=== PATIENT | female | born 1940 | race Caucasian/White ===

== ENCOUNTER 2017-04-15 08:12 | Inpatient (IN) | payer MEDICARE, OTHER, SELFPAY ==
[2017-04-15] VITALS (14 sets, daily range): BP systolic 130–166; BP diastolic 58–84; PULSE 66–84; RESP 12–18; TEMP 36.8–37; O2SAT 96–99; BMI 20.9; BMI 20.3; BMI 21.0
--- NOTE | 2017-04-15 08:24 | EKG12_ITS ---
Test Reason : CP Blood Pressure : / mmHG Vent. Rate : 081 BPM Atrial Rate : 081 BPM P-R Int : 182 ms QRS Dur : 084 ms QT Int : 376 ms P-R-T Axes : 080 083 074 degrees QTc Int : 436 ms Normal sinus rhythm Normal ECG Confirmed by JAN BOGGS, BETHANY ([id number]), acquisitions editor TANYA VALDERRAMA ([id number] on 04/17/2017 10:14:50 AM Referred By: CELESTINE Confirmed By:BETHANY MONTOYA MD
--- NOTE | 2017-04-15 08:24 | RAD_ITS ---
STUDY: X-RAY CHEST REASON FOR EXAM: Female, 76 years old. Chest pain. Shortness of breath. TECHNIQUE: PA and lateral views of the chest. COMPARISON: None. FINDINGS: There are monitoring devices. There is hyperinflation of the lungs consistent with chronic obstructive lung disease (COPD).s there are fibrotic densities. There is no demonstrated pleural abnormality. Normal size heart. There is retrocardiac hiatal hernia. Normal visualized pulmonary arteries. There is atherosclerotic calcification of the aortic arch with tortuosity. There is demineralization of the osseous structures. Normal visualized ribs, clavicles, and shoulders. There is no demonstrated abnormality of the visualized soft tissue structures of the upper abdomen. RAD/Chest PA and Lateral IMPRESSION: COPD and fibrotic densities. Hiatal hernia. Electronically Signed: Dean Ellison MD at 9:43 EST , Service support ,
--- NOTE | 2017-04-15 08:27 | ED.VISSUMM ---
- ER Visit Summary Date of Service: 04/15/17 Chief Complaint: Chest pain History of Present Illness: The patient is a 76 F presenting with exertional chest pain for the past 2 weeks. She states that when she walks across the room, goes up steps, or otherwise exerts herself, she develops midsternal chest heaviness that radiates into her back and occasionally to her left shoulder. She also develops left shoulder/arm pain (never distal to her elbow) as well as shortness of breath and diaphoresis. The pain resolves after approximately 10 minutes of rest. She states that she had a stress test in 2002 and in 2011 which were unremarkable. She had a heart cath around 30 years ago but otherwise denies any cardiac history. She takes medicine for high cholesterol but was recently taken off of her blood pressure meds because of labile pressures. He denies recent travel or mobilization. Denies lower extremity pain or swelling. There is no pleuritic component to this pain. She has never been a smoker. Physical Examination: Vitals are within normal limits except for hypertension at 166/81. She is not in distress. Neck is supple. Heart tones are regular without murmur. Lungs are clear bilaterally. No chest wall or arm tenderness. Strong pulses in all extremities. No lower extremity edema, palpable cords, or tenderness along the venous system. Test Results: Labs are basically within normal limits. Troponin is negative. EKG unremarkable Emergency Department Course and Treatment: Workup here is unremarkable however her symptoms are very concerning. She has midsternal chest pain and left shoulder pain only with exertion that is associated with diaphoresis and dyspnea, resolving with rest. Given her overall risk profile, I feel that she should be observed for with repeat enzymes and stress test. Treatment Plan: I spoke with the hospitalist and she will be admitted. Disposition: Admit to telemetry Impression: Initial encounter chest pain, rule out MA This note was generated with VeriTweet dictation software. It may contain incorrect words, spelling, and punctuation that were not noted in review of the chart prior to signing ED Disposition - Plan for ED Patient: Chief Complaint: Chest Pain Referrals: Errol Shahid MD [Primary Care Provider] -
--- NOTE | 2017-04-15 08:30 | ED.DCSUM_ITS ---
- ER Visit Summary Date of Service: 04/15/17 Chief Complaint: Chest pain History of Present Illness: The patient is a 76 F presenting with exertional chest pain for the past 2 weeks. She states that when she walks across the room , goes up steps, or otherwise exerts herself, she develops midsternal chest heaviness that radiates into her back and occasionally to her left shoulder. She also develops left shoulder/arm pain (never distal to her elbow) as well as shortness of breath and diaphoresis. The pain resolves after approximately 10 minutes of rest. She states that she had a stress test in 2002 and in 2011 which were unremarkable. She had a heart cath around 30 years ago but otherwise denies any cardiac history. She takes medicine for high cholesterol but was recently taken off of her blood pressure meds because of labile pressures. He denies recent travel or mobilization. Denies lower extremity pain or swelling. There is no pleuritic component to this pain. She has never been a smoker. Physical Examination: Vitals are within normal limits except for hypertension at 166/81. She is not in distress. Neck is supple. Heart tones are regular without murmur. Lungs are clear bilaterally. No chest wall or arm tenderness. Strong pulses in all extremities. No lower extremity edema, palpable cords, or tenderness along the venous system. Test Results: Labs are basically within normal limits. Troponin is negative. EKG unremarkable Emergency Department Course and Treatment: Workup here is unremarkable however her symptoms are very concerning. She has midsternal chest pain and left shoulder pain only with exertion that is associated with diaphoresis and dyspnea , resolving with rest. Given her overall risk profile, I feel that she should be observed for with repeat enzymes and stress test. Treatment Plan: I spoke with the hospitalist and she will be admitted. Disposition: Admit to telemetry Impression: Initial encounter chest pain, rule out LA This note was generated with Flexis dictation software. It may contain incorrect words, spelling, and punctuation that were not noted in review of the chart prior to signing ED Disposition - Plan for ED Patient: Chief Complaint: Chest Pain Referrals: Errol Shahid MD [Primary Care Provider] -
[2017-04-15] MEDS: Aspirin 81 MG TAB.CHEW 324 MG PO (08:51)
[2017-04-15 08:59] LABS: Absolute Lymphocyte Count 1.97 X10^3/ul (0.83-4.51); Absolute Neutrophil Count 5.3 X10^3/uL (2.0-7.7); Basophil# 0.04 X10^3/uL; Basophil% 0.5 % (0-1); Eosinophil# 0.23 X10^3/uL; Eosinophils% 2.8 % (0-5); Hematocrit 40.3 % (37-47); Hemoglobin 13.3 g/dl (12.0-15.0); Lymphocyte # 1.97 X10^3/ul (4.0); Lymphocyte % 23.8 % (19-41); Mean Corpuscular Hgb 31.9 pg (27.0-32.0); Mean Corpuscular Volume 96.6 fL (81-99); Mean Platelet Vol. 9.9 fl (6.2-12.0); Monocyte# 0.74 X10^3/uL; Monocyte% 8.9 % (0-10); Neutrophil # 5.31 X10^3/uL (2.7-7.7); POSITIVE COUNT NO; POSITIVE DIFFERENTIAL NO; POSITIVE MORPHOLOGY NO; Platelet Count 269 K/mm3 (150-450); RBC Distribution Width CV 12.5 % (11.6-14.6); RBC Distribution Width SD 42.5 fl (35.1-43.9); Red Blood Count 4.17 M/mm3 (4.2-5.4); White Blood Count 8.3 K/mm3 (4.4-11.0)
[2017-04-15 09:19] LABS: Anion Gap 7 (5-15); BUN 22 mg/dL (7-18); BUN/Creat Ratio 24.6 RATIO (10-20); Calcium,Total 9.4 mg/dL (8.5-10.1); Chloride 106 mmol/L (98-107); Creatinine, Serum 0.89 mg/dL (0.55-1.02); EST Glomerular Filtration Rate 65 mL/min (>60); Est Glom Filt Rate - Afr Amer 79 mL/min (>60); Estimated Creatinine Clearance 41.32 ml/min; Glucose 99 mg/dL (74-106); Potassium 3.8 mmol/L (3.5-5.1); Sodium Level 142 mmol/L (136-145)
--- NOTE | 2017-04-15 09:37 | NURSING ---
DR MEAGHAN SPRAGUE
--- NOTE | 2017-04-15 09:52 | NURSING ---
PCU OBS SEMENTI
--- NOTE | 2017-04-15 09:54 | NURSING ---
DIAGNOSIS: ACUTE CORONARY SYNDROME
[2017-04-15 11:22] LABS: D-Dimer Quantitative (DVT/PE) 0.33 FEU/ug/m (0.27-0.49)
[2017-04-15 12:18] LABS: AST(SGOT) 30 U/L (15-37); Alanine Aminotransfer ALT/SGPT 31 U/L (13-56); Albumin, Serum 3.7 g/dL (3.2-5.0); Alkaline Phosphatase 72 U/L (45-117); Bilirubin, Direct 0.15 mg/dL (0.00-0.30); Globulin 3.6 g/dL (2.2-4.2); Magnesium 2.2 mg/dL (1.6-2.6); Protein, Total 7.3 g/dL (6.4-8.2)
--- NOTE | 2017-04-15 12:38 | PCM.HP.STD ---
Problem List (1) Acute coronary syndrome Status: Acute (2) HTN (hypertension) Status: Chronic Comment: labile and not currently being treated. (3) Anxiety Status: Chronic (4) Gastroesophageal reflux disease Status: Chronic (5) Osteoporosis Status: Chronic (6) History of IBS Status: Acute (7) Family history of coronary artery disease in father Status: Acute (8) Hyperlipidemia Status: Chronic Comment: on a statin History of Present Illness Date of Admission: 04/15/17 Chief Complaint: chest pain associated with R[place]D The patient is a 76 year old F with a past medical history of hypertension, hyperlipidemia, GERD, hiatal hernia, osteoporosis and anxiety who presented to the emergency room at [facility] on 04/15/2017 complaining of substernal chest tightness associated with shortness of breath. For the past few weeks she has been getting substernal chest tightness and squeezing that comes on with exertion and goes away with rest. For the past 2-3 days the pain has gotten more frequent and comes on with minimal exertion. He was standing in the kitchen today cooking and got substernal chest discomfort. There has been radiation of the pain to the left arm. The pain is associated with [place]. Denies diaphoresis and no nausea. Originally she thought the pain may be due to GERD and she started taking Protonix daily and this did not change the substernal chest pain. Her father had [place] in his 40's. She has never smoked. EKG in the emergency room is normal but she had no chest pain at the time of the EKG. Chest x-ray shows hyperinflation with no infiltrates, pleural effusions or pulmonary vascular congestion. Troponin was less than 0.02 in the emergency room. The BUN is 22 and the creatinine is 0.89 with a BUN/creatinine ratio of 24.6. She uses Estradiol cream no more than once every week or two. The d-dimer is 0.33 and this is normal. She is being admitted to a monitored bed on PCU with a diagnosis of acute coronary syndrome. Past Medical History Past Medical History (Chronic Problems): Chronic Problems Gastroesophageal reflux disease (Chronic) Osteoporosis (Chronic) HTN (hypertension) (Chronic) labile and not currently being treated. 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, - - she uses Estradiol cream infrequently Lives: Spouse/ Significant Other Smoking Status: Never smoker Tobacco Use: Non-smoker Alcohol: None Drugs: None - *Family History Maternal History Items: Diabetes Paternal History Items: Heart Disease - father started with heart disease in his 40's, Stroke Review of Systems Constitutional: Denies: Chills, Fever, Weight Change Eyes: Denies: Blurred vision, Vision Change HEENT: Denies: Difficulty Swallowing, Head Aches, Sinus Congestion, Sinus Drainage, Sore Throat Cardiovascular: Reports: Chest Pain, - - when she gets substernal CP tightness with exertion she also gets weak and has SOB with raditation of the pain down the left arm. Denies: Orthopnea, Palpitations, Paroxysmal Noc. Dyspnea, Syncope Respiratory: Reports: Shortness of breath upon exertion. Denies: Cough Gastrointestinal: Denies: Abdominal Pain, Nausea, Vomiting Genitourinary: Denies: Dysuria Gynecological: Denies: Vaginal bleeding, Vaginal discharge Skin: Denies: Jaundice, Rash, Wounds Neurological: Denies: Change in Speech, Slurred speech, Confusion, Focal weakness Endocrine: Denies: Change in Body Habitus, Hx of Thyroiditis Hematologic/ Lymphatic: Denies: Hx of blood clot VTE Information - Inpt Only VTE Present on Admission: No VTE Mechan Device Prophylaxis: Knee High ROBEL Hose VTE Pharm Prophylaxis ordered?: Yes Patient Problems: Active and Suspected Problems Acute coronary syndrome (Acute) History of IBS (Acute) Family history of coronary artery disease in father (Acute) - Physical Exam General: Alert, Oriented x3, Cooperative, - - she is anxious adn wooried that she may be having a problem with her heart. she has been sleeping well and denies any recent stressful events in her life HEENT: Atraumatic, PERRLA, EOMI, Normocephalic Oral: Dry Mucosa Neck: No JVD, Negative Carotid Bruits, No Nodes, Trachea Midline, - - Brisk carotid upstroke with excellent pulse volume Lungs: Clear to auscultation, No rhonchi, No wheeze, No rales Cardiovascular: Regular rate, Regular Rhythm, Normal S1, Normal S2, No murmurs, No Ectopic Activity, No Gallop Abdomen: Bowel Sounds Present, Soft, Non Tender, Non-Distended, - - No masses appreciated. No abdominal bruits. Extremities: No clubbing, No cyanosis, No edema, Capillary Refill Less than 3 Seconds, No Calf Tenderness, Peripheral Pulses Normal Skin: No rashes, No breakdown Musculoskeletal: No Muscle Wasting, Arthritic Changes Neurological: Cranial nerves II-XII grossly intact, Neuro grossly intact Psych/Mental Status: Anxious Vital Signs Temp Pulse Resp BP Pulse Ox 98.3 F 66 16 135/63 H 98 04/15/17 11:25 04/15/17 11:25 04/15/17 11:25 04/15/17 11:25 04/15/17 11:25 Oxygen Delivery Method Room Air Weight: 100 lb 12.02 oz Body Mass Index (BMI) 20.3 Laboratory Tests Past 24 Hrs 04/15/17 04/15/17 11:06 11:06 D-Dimer Quant (PE/DVT) 0.33 Magnesium 2.2 Total Bilirubin 0.70 Direct Bilirubin 0.15 AST 30 ALT 31 Alkaline Phosphatase 72 Total Protein 7.3 Albumin 3.7 Globulin 3.6 Assessment/Plan Active and Suspected Problems Acute coronary syndrome (Acute) History of IBS (Acute) Family history of coronary artery disease in father (Acute) Impressions 1. acute coronary S. 2. HTN 3. HLD 4. HH with GERD...CP 5. anxiety 6. Osteoporosis - T score of the left femur in January 2017 was -2.4, left femoral neck -2.5, right femoral neck -2.4, right femoral neck -2.5 in the lumbar spine is -2.0. She is currently taking calcium and vitamin D. Would recommend regular weightbearing exercise in this patient. Her FRAX score is 0% for hip fx within the next 10 years. She is borderline osteoporotic. The T score for BL femoral necks is -2.5 which is consistent with osteoporosis but the spin is -2.0. would consider starting her on tx and if not would repeat the DEXA in [address] Davis - will keep NPO tonight for cardiac catheterization in the a.m. She has already been given a loading dose of Plavix and will start 75 mg p.o. daily in addition to aspirin 81 mg p.o. daily. She was given aspirin in the emergency room. Start metoprolol 25 mg p.o. twice daily and continue the statin. Nitroglycerin as needed chest pain Check a lipid panel in the a.m. Code Visit Inpatient E&M: 84071 Init Hosp L3
[2017-04-15] MEDS: Clopidogrel Bisulfate 300 MG Tablet PO (13:02)
[2017-04-15] MEDS: Pantoprazole Sodium 40 MG Tablet PO (13:02)
[2017-04-15] MEDS: Enoxaparin 40 MG/0.4 ML Syringe SC (13:02)
--- NOTE | 2017-04-15 13:02 | NURSING ---
1000 Medications administered at this time. Medications ordered when patient was still in ED. Plavix order clarified. Education complete for plavix and lovenox.
[2017-04-15] MEDS: Metoprolol Tartrate 25 MG Tablet PO ×2 (13:40→21:07)
[2017-04-15] MEDS: 0.45% Normal Saline 1,000 ML 100 ML IV ×2 (13:40→22:30)
--- NOTE | 2017-04-15 14:55 | PCM.CONS.C ---
Reason for Consult Date of Consultation: 04/15/17 Reason for Consultation: Chest discomfort History of Present Illness: The patient is a 76 year old F with a past medical history of hypertension, hyperlipidemia, GERD, hiatal hernia, osteoporosis and anxiety who presented to the emergency room at [facility] on 04/15/2017 complaining of substernal chest tightness associated with shortness of breath. For the past few weeks she has been getting substernal chest tightness and squeezing that comes on with exertion and goes away with rest. For the past 2-3 days the pain has gotten more frequent and comes on with minimal exertion. She was standing in the kitchen today cooking and got substernal chest discomfort. There has been radiation of the pain to the left arm. The pain is associated with RICHMOND. Denies diaphoresis and no nausea. Originally she thought the pain may be due to GERD and she started taking Protonix daily and this did not change the substernal chest pain. She thinks that she had a cardiac catheterization over 30 years ago and at that time he did not demonstrate any obstructive coronary disease. Her father had [place] in his 40's. He was seen in the emergency room and currently is pain-free. Her electrocardiogram did not demonstrate any EKG changes of ischemia but due to her history cardiology was called for further evaluation and management. Past Medical History Allergies/Adverse Reactions: Allergies No Known Allergies Allergy (Verified 04/15/17 08:15) Home Medications: Ambulatory Orders Medication Instructions Recorded Estradiol [Estrace Vaginal Cream] 42.5 gm TOPICAL PRN PRN 06/14/14 Simvastatin 40 mg PO QHS 06/14/14 Pantoprazole Sodium [Protonix] 40 mg PO DAILY #30 tablet 06/16/14 Calcium Carbonate/Vitamin D3 1 each PO DAILY 04/15/17 [Calcium 600 + Vit D3 Caplet] Multivitamin [Multiple Vitamins] 1 tablet PO DAILY 04/15/17 Past Medical History (Chronic Problems): Chronic Problems Gastroesophageal reflux disease (Chronic) Osteoporosis (Chronic) HTN (hypertension) (Chronic) labile and not currently being treated. 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 Denies: Shortness of Breath, Orthopnea, PND, Peripheral Edema, Palpitations, Lightheadedness, Dizziness, Near Syncope, Syncope Respiratory: Denies: Cough, Sputum Production, Hemoptysis Gastrointestinal: Denies: Hematemesis, Hematochezia, Melena Genitourinary: Denies: Dysuria, Hematuria Skin: Denies: Rash Subjectve: Pleasant lady in no apparent distress Objective: Vital Signs Temp Pulse Resp BP Pulse Ox 98.3 F 70 16 135/63 H 98 04/15/17 11:25 04/15/17 13:40 04/15/17 11:25 04/15/17 11:25 04/15/17 11:25 General: Awake, Alert, Oriented x 3 HEENT: PERRL, EOMI, Sclera Non Icteric Neck: Supple, Good ROM, No Lymph Node Enlargement Lungs: Clear to auscultation Cardiovascular: Regular Rhythm, Normal S1, Normal S2, No Murmurs, No Rubs, No Gallops Vascular: No Carotid Bruits, Normal Femoral Pulses, Normal Radial Pulses, Normal Dorsalis Pedal Pulse, Normal Posterior Tibial Pulses Abdomen: Bowel Sounds Present, Soft, Non Tender, No HSM, No Organomegaly Extremities: No Cyanosis, No Clubbing, No edema Neurological: No Focal Motor or Sensory Deficit Psych/Mental Status: Appropriate Rhythm: EKG: Normal sinus rhythm with no acute changes with a rate of 81 bpm. Assessment/Plan 1. Chest pain unstable angina Patient presents with progressive and recurrent chest discomfort with exertion going away with rest which has been getting worse. At this time even though she has no EKG changes and no troponin elevation her symptoms appear to be rather convincing that I would suggest direct cardiac catheterization. I do not think that a stress test is warranted at this time I have discussed this with the patient and the hospitalist and they agree to proceed. She will be started in the meantime on clopidogrel as well as a beta-natanael and aspirin and depending on the findings further recommendations will be made. 2. Hyperlipidemia She is on a decent dose of statin and a repeat lipid profile will be obtained. Thank you for allowing me to participate in the care of your patient. Please don't hesitate to call if any issues arise
--- NOTE | 2017-04-15 14:59 | CON.PCM_ITS ---
Reason for Consult Date of Consultation: 04/15/17 Reason for Consultation: Chest discomfort History of Present Illness: The patient is a 76 year old F with a past medical history of hypertension, hyperlipidemia, GERD, hiatal hernia, osteoporosis and anxiety who presented to the emergency room at [facility] on 04/15/2017 complaining of substernal chest tightness associated with shortness of breath. For the past few weeks she has been getting substernal chest tightness and squeezing that comes on with exertion and goes away with rest. For the past 2-3 days the pain has gotten more frequent and comes on with minimal exertion. She was standing in the kitchen today cooking and got substernal chest discomfort. There has been radiation of the pain to the left arm. The pain is associated with RICHMOND. Denies diaphoresis and no nausea. Originally she thought the pain may be due to GERD and she started taking Protonix daily and this did not change the substernal chest pain. She thinks that she had a cardiac catheterization over 30 years ago and at that time he did not demonstrate any obstructive coronary disease. Her father had [place] in his 40's. He was seen in the emergency room and currently is pain-free. Her electrocardiogram did not demonstrate any EKG changes of ischemia but due to her history cardiology was called for further evaluation and management. Past Medical History Allergies/Adverse Reactions: Allergies No Known Allergies Allergy (Verified 04/15/17 08:15) Home Medications: Ambulatory Orders Medication Instructions Recorded Estradiol [Estrace Vaginal Cream] 42.5 gm TOPICAL PRN PRN 06/14/14 Simvastatin 40 mg PO QHS 06/14/14 Pantoprazole Sodium [Protonix] 40 mg PO DAILY #30 tablet 06/16/14 Calcium Carbonate/Vitamin D3 1 each PO DAILY 04/15/17 [Calcium 600 + Vit D3 Caplet] Multivitamin [Multiple Vitamins] 1 tablet PO DAILY 04/15/17 Past Medical History (Chronic Problems): Chronic Problems Gastroesophageal reflux disease (Chronic) Osteoporosis (Chronic) HTN (hypertension) (Chronic) labile and not currently being treated. 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 Denies: Shortness of Breath , Orthopnea, PND, Peripheral Edema, Palpitations, Lightheadedness, Dizziness, Near Syncope, Syncope Respiratory: Denies: Cough, Sputum Production, Hemoptysis Gastrointestinal: Denies: Hematemesis, Hematochezia, Melena Genitourinary: Denies: Dysuria, Hematuria Skin: Denies: Rash Subjectve: Pleasant lady in no apparent distress Objective: Vital Signs Temp Pulse Resp BP Pulse Ox 98.3 F 70 16 135/63 H 98 04/15/17 11:25 04/15/17 13:40 04/15/17 11:25 04/15/17 11:25 04/15/17 11:25 General: Awake, Alert, Oriented x 3 HEENT: PERRL, EOMI, Sclera Non Icteric Neck: Supple, Good ROM, No Lymph Node Enlargement Lungs: Clear to auscultation Cardiovascular: Regular Rhythm, Normal S1, Normal S2, No Murmurs, No Rubs, No Gallops Vascular: No Carotid Bruits, Normal Femoral Pulses, Normal Radial Pulses, Normal Dorsalis Pedal Pulse, Normal Posterior Tibial Pulses Abdomen: Bowel Sounds Present, Soft, Non Tender, No HSM, No Organomegaly Extremities: No Cyanosis, No Clubbing, No edema Neurological: No Focal Motor or Sensory Deficit Psych/Mental Status: Appropriate Rhythm: EKG: Normal sinus rhythm with no acute changes with a rate of 81 bpm. Assessment/Plan 1. Chest pain unstable angina Patient presents with progressive and recurrent chest discomfort with exertion going away with rest which has been getting worse. At this time even though she has no EKG changes and no troponin elevation her symptoms appear to be rather convincing that I would suggest direct cardiac catheterization. I do not think that a stress test is warranted at this time I have discussed this with the patient and the hospitalist and they agree to proceed. She will be started in the meantime on clopidogrel as well as a beta-natanael and aspirin and depending on the findings further recommendations will be made. 2. Hyperlipidemia She is on a decent dose of statin and a repeat lipid profile will be obtained. Thank you for allowing me to participate in the care of your patient. Please don't hesitate to call if any issues arise
[2017-04-15 15:37] LABS: Bacteria 0 SEEN /hpf (None Seen); Mucous, Urine 0 SEEN /hpf (<or=2+); Squamous Epithelial Cells - UA 0 SEEN /hpf (5-10); White Blood Cells 0 SEEN /hpf (0-5)
[2017-04-15 15:39] LABS: Color, Urine Straw (Yellow); Glucose, Dipstick Normal (Normal); Ketone-Dipstick Negative (Negative); Leukocyte Esterase-Dipstick Negative /ul (Negative); Nitrite-Dipstick Negative (Negative); Occult Blood-Urine 25 /ul (Negative); Protein-Dipstick Negative (Negative); Urine Bilirubin Dipstick Negative (Negative); Urine Clarity Clear (Clear); Urine Urobilinogen Normal (Normal)
[2017-04-15 15:47] LABS: Red Blood Cells-Urine 0-5 SEEN /hpf (0-5)
[2017-04-15] MEDS: Atorvastatin Calcium 20 MG Tablet PO (21:03)
[2017-04-16] VITALS (23 sets, daily range): BP systolic 101–154; BP diastolic 52–66; PULSE 61–78; RESP 16–18; TEMP 36.4–36.9; O2SAT 97–100
[2017-04-16] MEDS: Aspirin E.C. 81 MG Tablet PO (05:27)
[2017-04-16] MEDS: Clopidogrel Bisulfate 75 MG Tablet PO (05:27)
[2017-04-16] MEDS: Metoprolol Tartrate 25 MG Tablet PO (05:29)
[2017-04-16 05:39] LABS: Hematocrit 36.9 % (37-47); Hemoglobin 12.1 g/dl (12.0-15.0); Mean Corp Hgb Conc 32.8 g/gl (32-36); Mean Corpuscular Hgb 31.7 pg (27.0-32.0); Mean Corpuscular Volume 96.6 fL (81-99); Mean Platelet Vol. 10.1 fl (6.2-12.0); Platelet Count 244 K/mm3 (150-450); RBC Distribution Width CV 12.4 % (11.6-14.6); RBC Distribution Width SD 42.2 fl (35.1-43.9); Red Blood Count 3.82 M/mm3 (4.2-5.4); White Blood Count 6.4 K/mm3 (4.4-11.0)
[2017-04-16 05:49] LABS: Prothrombin Time (Protime)PT. 12.8 SECONDS (11.7-14.9)
[2017-04-16 05:50] LABS: Partial Thromboplast Time 27.9 Seconds (24.1-36.2)
--- NOTE | 2017-04-16 05:55 | EKG12_ITS ---
Test Reason : AM EKG Blood Pressure : / mmHG Vent. Rate : 069 BPM Atrial Rate : 069 BPM P-R Int : 206 ms QRS Dur : 082 ms QT Int : 414 ms P-R-T Axes : 076 079 086 degrees QTc Int : 443 ms Normal sinus rhythm Confirmed by JAN BOGGS, BETHANY ([id number]), graphic editor TANYA VALDERRAMA ([id number]) on 04/18/2017 3:00:44 PM Referred By: MEAGHAN Confirmed By:BETHANY MONTOYA MD
--- NOTE | 2017-04-16 05:55 | ECHOD_ITS ---
Reason For Study: chest pain Procedure This was a 2D Doppler, Color Flow transthoracic echocardiogram. The study was technically difficult. PT scanned supine: S/P heart cath unable to reposition patient. Exam performed portable in patient room. Left Ventricle Normal LV size. Left ventricular systolic function is normal. The estimated ejection fraction is 60 %. No regional wall motion abnormalities noted. Right Ventricle Normal RV size. Normal systolic function. Atria Normal left atrium. Normal right atrium. Mitral Valve Normal mitral valve. Tricuspid Valve Normal tricuspid valve. Mild tricuspid valve insufficiency. Aortic Valve Normal aortic valve. Trisinus/trileaflet aortic valve. Pulmonic Valve Normal pulmonic valve. Great Vessels Normal aortic root. The pulmonary artery is normal size. Normal inferior vena cava. Pericardium/Pleural No pericardial effusion. MMode/2D Measurements & Calculations LVIDd: 3.6 cm IVSd: 0.95 cm Ao root diam: 2.5 cm LVIDs: 2.6 cm LVPWd: 1.0 cm LA dimension: 2.8 cm RVDd: 2.6 cm FS: 29.4 % Doppler Measurements & Calculations MV E max bon: 66.2 cm/sec Lat Peak E' Bon: 7.9 cm/sec Med Peak E' Bon: 4.8 cm/sec MV A max bon: 59.7 cm/sec E/E' lat: 8.4 E/E' med: 13.9 MV E/A: 1.1 Ao V2 max: 81.3 cm/sec LV V1 max: 69.8 cm/sec PA V2 max: 71.7 cm/sec Ao max P.6 mmHg LV V1 max P.9 mmHg PI dec slope: 195.7 cm/sec2 TR max bon: 214.3 cm/sec TR max P.4 mmHg Interpretation Summary Normal LV size. Left ventricular systolic function is normal. The estimated ejection fraction is 60 %. Mild tricuspid valve insufficiency. Ordering Physician: Nyasia Cortez Referring Physician: Tripp Shahid Performed By: Yvonne Wilson RDCS, RVT
[2017-04-16 05:56] LABS: Cholesterol 181 mg/dL (200); High Density Lipoprotein 65 mg/dL; Triglycerides 72 mg/dL; Very Low Density Lipoprotein 14 mg/dL (5-40)
[2017-04-16 06:00] LABS: Anion Gap 7 (5-15); BUN 20 mg/dL (7-18); BUN/Creat Ratio 23.8 RATIO (10-20); Calcium,Total 8.5 mg/dL (8.5-10.1); Chloride 107 mmol/L (98-107); Creatinine, Serum 0.84 mg/dL (0.55-1.02); EST Glomerular Filtration Rate 70 mL/min (>60); Est Glom Filt Rate - Afr Amer 85 mL/min (>60); Estimated Creatinine Clearance 42.39 ml/min; Glucose 93 mg/dL (74-106); Sodium Level 141 mmol/L (136-145)
[2017-04-16 06:07] LABS: Scan Indicated on CBC? Y/N NO
[2017-04-16] MEDS: 0.45% Normal Saline 1,000 ML 100 ML IV (07:44)
--- NOTE | 2017-04-16 09:29 | PCM.PN.CARD ---
Subjectve: Seen and evaluated and underwent cardiac catheterization today Objective: Vital Signs Temp Pulse Resp BP Pulse Ox 98.1 F 67 18 150/57 H 100 04/16/17 08:17 04/16/17 08:17 04/16/17 08:17 04/16/17 08:17 04/16/17 08:17 Oxygen Delivery Method Room Air Weight: 100 lb 12.02 oz Intake and Output for Last 24 Hours 04/14/17 04/15/17 04/16/17 23:59 23:59 23:59 Intake Total 1308 / 1548 693 / 693 Output Total 1350 / 1350 650 / 650 Balance -42 / 198 43 / 43 General: Awake, Alert, Oriented x 3 HEENT: PERRL, EOMI, Sclera Non Icteric Neck: Supple, Good ROM, No Lymph Node Enlargement Lungs: Clear to auscultation Cardiovascular: Regular Rhythm, Normal S1, Normal S2, No Murmurs, No Rubs, No Gallops Vascular: No Carotid Bruits, Normal Femoral Pulses, Normal Radial Pulses, Normal Dorsalis Pedal Pulse, Normal Posterior Tibial Pulses Abdomen: Bowel Sounds Present, Soft, Non Tender, No HSM, No Organomegaly Extremities: No Cyanosis, No Clubbing, No edema Neurological: No Focal Motor or Sensory Deficit Psych/Mental Status: Appropriate 04/15/17 15:28: Urine Color Straw, Urine Clarity Clear, Urine pH 7.0, Ur Specific [place] 1.010, Urine Protein Negative, Urine Glucose (UA) Normal, Urine Ketones Negative, Urine Occult Blood 25 H, Urine Nitrite Negative, Urine Bilirubin Negative, Urine Urobilinogen Normal, Ur Leukocyte Esterase Negative, Urine RBC 0-5 SEEN, Urine WBC 0 SEEN 04/15/17 17:10: Troponin I < 0.02 04/15/17 22:30: Troponin I < 0.02 04/16/17 05:05: Triglycerides 72, Cholesterol 181, LDL Cholesterol 102, VLDL Cholesterol 14, HDL Cholesterol 65 04/16/17 05:05: PT 12.8, INR 1.0, APTT 27.9 04/16/17 05:05: WBC 6.4, RBC 3.82 L, Hgb 12.1, Hct 36.9 L, MCV 96.6, MCH 31.7, MCHC 32.8, RDW 12.4, RDW Differential 42.2, Plt Count 244, MPV 10.1 04/16/17 05:05: Sodium 141, Potassium 4.0, Chloride 107, Carbon Dioxide 27.0, Anion Gap 7, BUN 20 H, Creatinine 0.84, Est GFR (MDRD) Af Amer 85, Est GFR (MDRD) Non-Af 70, BUN/Creatinine Ratio 23.8 H, Glucose 93, Calcium 8.5 Assessment/Plan 1. Chest pain unstable angina Patient presents with progressive and recurrent chest discomfort with exertion going away with rest which has been getting worse. He underwent a cardiac catheterization today which demonstrated the following. 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 2. Hyperlipidemia She is on a decent dose of statin and a repeat lipid profile will be obtained. Thank you for allowing me to participate in the care of your patient. Please don't hesitate to call if any issues arise She can be discharged home today
--- NOTE | 2017-04-16 09:32 | PN.CARD_ITS ---
Subjectve: Seen and evaluated and underwent cardiac catheterization today Objective: Vital Signs Temp Pulse Resp BP Pulse Ox 98.1 F 67 18 150/57 H 100 04/16/17 08:17 04/16/17 08:17 04/16/17 08:17 04/16/17 08:17 04/16/17 08:17 Oxygen Delivery Method Room Air Weight: 100 lb 12.02 oz Intake and Output for Last 24 Hours 04/14/17 04/15/17 04/16/17 23:59 23:59 23:59 Intake Total 1308 / 1548 693 / 693 Output Total 1350 / 1350 650 / 650 Balance -42 / 198 43 / 43 General: Awake, Alert, Oriented x 3 HEENT: PERRL, EOMI, Sclera Non Icteric Neck: Supple, Good ROM, No Lymph Node Enlargement Lungs: Clear to auscultation Cardiovascular: Regular Rhythm, Normal S1, Normal S2, No Murmurs, No Rubs, No Gallops Vascular: No Carotid Bruits, Normal Femoral Pulses, Normal Radial Pulses, Normal Dorsalis Pedal Pulse, Normal Posterior Tibial Pulses Abdomen: Bowel Sounds Present, Soft, Non Tender, No HSM, No Organomegaly Extremities: No Cyanosis, No Clubbing, No edema Neurological: No Focal Motor or Sensory Deficit Psych/Mental Status: Appropriate 04/15/17 15:28: Urine Color Straw, Urine Clarity Clear, Urine pH 7.0, Ur Specific [place] 1.010, Urine Protein Negative, Urine Glucose (UA) Normal, Urine Ketones Negative, Urine Occult Blood 25 H, Urine Nitrite Negative, Urine Bilirubin Negative, Urine Urobilinogen Normal, Ur Leukocyte Esterase Negative, Urine RBC 0-5 SEEN, Urine WBC 0 SEEN 04/15/17 17:10: Troponin I < 0.02 04/15/17 22:30: Troponin I < 0.02 04/16/17 05:05: Triglycerides 72, Cholesterol 181, LDL Cholesterol 102, VLDL Cholesterol 14, HDL Cholesterol 65 04/16/17 05:05: PT 12.8, INR 1.0, APTT 27.9 04/16/17 05:05: WBC 6.4, RBC 3.82 L, Hgb 12.1, Hct 36.9 L, MCV 96.6, MCH 31.7, MCHC 32.8, RDW 12.4, RDW Differential 42.2, Plt Count 244, MPV 10.1 04/16/17 05:05: Sodium 141, Potassium 4.0, Chloride 107, Carbon Dioxide 27.0, Anion Gap 7, BUN 20 H, Creatinine 0.84, Est GFR (MDRD) Af Amer 85, Est GFR (MDRD ) Non-Af 70, BUN/Creatinine Ratio 23.8 H, Glucose 93, Calcium 8.5 Assessment/Plan 1. Chest pain unstable angina Patient presents with progressive and recurrent chest discomfort with exertion going away with rest which has been getting worse. He underwent a cardiac catheterization today which demonstrated the following. 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 2. Hyperlipidemia She is on a decent dose of statin and a repeat lipid profile will be obtained. Thank you for allowing me to participate in the care of your patient. Please don't hesitate to call if any issues arise She can be discharged home today
--- NOTE | 2017-04-16 10:34 | CASEMGMT ---
This RN CM to bedside to complete CM assessment and pt is currently getting ECHO at this time. Will attempt again later. SStaten RN CM
[2017-04-16] MEDS: Ramipril 5 MG Capsule PO (11:06)
[2017-04-16] MEDS: Pantoprazole Sodium 40 MG Tablet PO (11:06)
--- NOTE | 2017-04-16 12:11 | DS.PCM_ITS ---
Discharge Date and Diagnosis - Problem List Patient Problems: Active and Suspected Problems Acute coronary syndrome (Acute) History of IBS (Acute) Family history of coronary artery disease in father (Acute) Date of Admission: 04/15/17 Date of Discharge: 04/16/17 - Primary Discharge Diagnosis Active and Suspected Problems Acute coronary syndrome (Acute) History of IBS (Acute) Family history of coronary artery disease in father (Acute) - Secondary Discharge Diagnosis Chronic Problems Gastroesophageal reflux disease (Chronic) Osteoporosis (Chronic) HTN (hypertension) (Chronic) labile and not currently being treated. Anxiety (Chronic) Hyperlipidemia (Chronic) on a statin Hospital Course and Treatment Summary of Care Provided: This is a 76 year old F with a past medical history of coronary artery disease , hypertension, hyperlipidemia, GERD, hiatal hernia, osteoporosis and anxiety who presented to the emergency room at [facility] on 04/15/2017 complaining of substernal chest tightness associated with shortness of breath. Her electrocardiogram did not demonstrate any EKG changes, was normal cardiology was called for further evaluation and management heart catheterization was recommended. Underwent left heart catheterization today and he demonstrated; Mild calcification of the left main coronary artery Left anterior descending artery with proximal 30% stenosis in the septal residential worker with 60% ostial stenosis Left circumflex artery with a proximal 20-30% obtuse marginal vessel Small dominant right coronary artery with no high-grade stenosis Preserved ejection fraction. Chest pain did resolve by the time of discharge, discharged home in a stable condition. Exam at the time of discharge; vital signs were stable. He was alert and oriented to time place and person. He did not appear to be any form of distress. S1 and S2 heard no murmur or gallop Lung exam was clear to auscultation with no adventitious sounds. Abdomen was soft nontender with normal bowel sounds. extremity exam did not reveal any edema, palpable pulses bilaterally. Neurologic exam was grossly intact. Discharge Diet: Low fat/ Low Cholesterol Discharge Activity: Return to Normal Activity Home Medications: Medications to take at Discharge Estradiol [Estrace Vaginal Cream] 42.5 gm TOPICAL PRN PRN 06/14/14 Simvastatin 40 mg PO QHS 06/14/14 Pantoprazole Sodium [Protonix] 40 mg PO DAILY #30 tablet 06/16/14 Calcium Carbonate/Vitamin D3 [Calcium 600-Vit D3 800 Caplet] 1 each PO DAILY 06/27 Multivitamin [Multiple Vitamins] 1 tablet PO DAILY 04/15/17 Ramipril [Altace] 5 mg PO DAILY #30 cap 04/16/17 Following Prescrptions Were Given to Patient: Ramipril [Altace] 5 mg PO DAILY #30 cap Primary Care Physician: Errol Shahid MD [Primary Care Provider] - Disposition: Home Patient Condition:: Good Meaningful Use Info Meaningful Use Diagnoses (Choose all that apply): None applicable Code Visit OBSV E&M: 69113 Observation care discharge
--- NOTE | 2017-04-16 13:01 | CASEMGMT ---
Face to Face with patient for initial transition planning/care coordination assessment. RN KRISTA introduced self and role at [facility], pt voices understanding and consents to assessment at this time. Pt sitting up in bed in no distress at this time. Pt A/O x4 at this time and answers all questions appropriately at this time. Care providers, pharmacy, and demographics verified. See attached link. Pt voices no further concerns/needs at this time. Advised pt to ask for CM if any further questions/concerns/needs arise, voices understanding. Referral to Joce FIORE for advanced directive paperwork to be completed at this time, voices understanding. PLAN: Home SStaten VASYL VELASCO
--- NOTE | 2017-04-16 13:49 | CASEMGMT ---
SW completed healthcare power of family law attorney and healthcare living will with patient. Copies were made, one of each placed in chart and other copies with original given to patient. Jacqui COPELAND MSW
--- NOTE | 2017-04-16 16:33 | PCM.DC ---
- Discharge Diagnoses Current Active Problems: Current Active and Chronic Problems Acute coronary syndrome (Acute) HTN (hypertension) (Chronic) labile and not currently being treated. Anxiety (Chronic) History of IBS (Acute) Family history of coronary artery disease in father (Acute) Hyperlipidemia (Chronic) on a statin You will use the following diet at home:: Cardiac Discharge Activity: Return to Normal Activity Allergies/Adverse Reactions: Allergies No Known Allergies Allergy (Verified 04/15/17 08:15) Medications to take at Discharge RX: Estradiol [Estrace Vaginal Cream] 42.5 gm TOPICAL PRN PRN 06/14/14 RX: Simvastatin 40 mg PO QHS 06/14/14 RX: Pantoprazole Sodium [Protonix] 40 mg PO DAILY #30 tablet 06/16/14 RX: Calcium Carbonate/Vitamin D3 [Calcium 600-Vit D3 800 Caplet] 1 each PO DAILY 04/15/17 RX: Multivitamin [Multiple Vitamins] 1 tablet PO DAILY 04/15/17 Ramipril [Altace] 5 mg PO DAILY #30 cap 04/16/17 The following prescriptions were given: Ramipril [Altace] 5 mg PO DAILY #30 cap Primary Care Physician: Errol Shahid MD [Primary Care Provider] - Proposed Discharge Date: 04/16/17
--- NOTE | 2017-04-18 10:46 | CL.D_ITS ---
Patient Name: ALTA MAYA Study Date: 04/16/2017 Performing: Mauro Davis MD Ht: 59.05 inches 150 cm : 1940 Wt: 101.41 lbs 46 kg Age: 76 Gender: female BSA: 1.38 PROCEDURE(S) PERFORMED MI84-RAL/COR/LV CLINICAL PROFILE AND INDICATIONS INDICATIONS: 76-year-old lady with a history of chest pain Stress/Imaging Stress/Image Study Performed: No CAD Presentations: Unstable angina. CONCLUSIONS Mild coronary artery disease RECOMMENDATIONS Medical therapy DESCRIPTION OF PROCEDURE The patient arrived to the procedure lab. The risks and benefits of the procedure as well as a full d escription of our services here and current unavailability of surgical backup were fully explained to the patient and/or their significant other prior to the catheterization. The Timeout was completed, verifying the correct patient and procedure. The patient's procedural site was prepped and draped in the usual fashion. Local anesthetic was given subcutaneously to right groin region with Lidocaine 2%. Using a modified Seldinger technique, arterial access was obtained via the right femoral artery, a 5 Fr sheath was inserted. Left Coronary Artery selective angiography was performed in multiple views u sing a 5 Fr. JL 5 catheter. Right Coronary Artery selective angiography was then performed in multipl e views using a 5 Fr. 3DRC (David) catheter. Left Ventriculography was performed in LYNCH projection using a 5 Fr. Pigtail catheter. LV to AO pullback pressures were then recorded.The arterial sheath w as pulled and manual compression applied until hemostasis is achieved. CORONARY ANGIOGRAPHY DOMINANCE: Right Dominant LEFT HEART ASSESSMENT Left Ventricular Ejection Fraction: by LV Gram 65 % Normal LV wall motion Normal Left Ventricular systolic function LEFT MAIN: Mild calcification, Angiographically normal LEFT ANTERIOR DECENDING ARTERY: PROX LAD: Mild luminal irregularities less than 30%, Mild calcification SEPTAL: Moderate luminal irregularities up to 50% CIRCUMFLEX ARTERY: Mild luminal irregularities OM 1: Ostial - 20 % Stenosis RIGHT CORONARY ARTERY: Mild luminal irregularities COMPLICATIONS No Complications PROCEDURE MEDICATIONS Versed 1 mg IV Fentanyl 25 mcg IV Oxygen: 2 L/min via nasal cannula SUMMARY OF HEMODYNAMIC DATA Time AIR REST ECG 08:53:38 AO 167/70 (111) SA 09:09:34 LV 156/9, 14 09:18:53 LV 157/18, 19 09:19:01 LV 167/-6, 17 09:19:49 LVp 169/-9, 17 09:19:53 AO 168/66 (111) 09:19:58 Signed By Mauro Davis MD On 04/16/2017 9:37:11 AM Mauro Davis MD
== END 2017-04-16 17:03 | disposition home or self-care (01) | DRG 287 ==
LOC: ED 10:03 → PCU 10:29
PROVIDERS: Internal Medicine; Admitting Provider Internal Medicine; Emergency Provider Emergency Medicine; Family Provider Family Medicine; PCP Family Medicine; Visit Provider Internal Medicine
DX: I24.9 Acute ischemic heart disease, unspecified (principal); E78.5 Hyperlipidemia, unspecified; F41.9 Anxiety disorder, unspecified; K21.9 Gastro-esophageal reflux disease without esophagitis; M81.0 Age-related osteoporosis without current pathological fracture; K44.9 Diaphragmatic hernia without obstruction or gangrene; I10 Essential (primary) hypertension; Z82.49 Family history of ischemic heart disease and other diseases of the circulatory system; Z79.899 Other long term (current) drug therapy
CPT/HCPCS: 36415; 71046; 80048; 80061; 80076; 81001; 83735; 84484; 85025; 85027; 85379; 85610; 85730; 87086; 93005; 93306; 93458; 99152; 99153; 99284; A4216; C1769; Q9967

== ENCOUNTER → 2017-06-01 06:57 | Outpatient (CLI) | payer MEDICARE, OTHER, SELFPAY ==
--- NOTE | 2017-06-01 09:57 | STRESSREP_ITS ---
Stress Test Report Exercise myocardial perfusion stress test. 76-year-old lady with a history of chest pain. Stress protocol: Resting EKG demonstrates normal sinus rhythm with a rate of 69 bpm normal intervals and noted resting blood pressure is 130/88 mmHg. The patient exercised according to regular Franco protocol for total duration of 5 minutes the maximum heart rate attained was 130 bpm which was 89% maximum predicted heart rate maximum workload attained was 7 metabolic equivalents. The patient maintained sinus rhythm throughout the recording at rest there were no ST or T- wave changes noted suggest ischemia peak exercise no ST or T-wave changes were noted suggest ischemia. No clinical angina was noted. Mild chest discomfort was noted. Myocardial perfusion protocol. 10.9 mCi of technetium 99m sestamibi was injected at rest. The patient exercised for total duration of 5 minutes attaining 89% maximum predicted heart rate a workload of 7 metabolic equivalents. At peak exercise 32.6 mCi of technetium 99m sestamibi was injected stress images were obtained stress and rest images were reconstructed and compared in the short axis vertical and horizontal long axis. Gated images were also obtained next Perfusion SPECT analysis. Review of the stress images demonstrate normal uptake of tracer noted in all areas myocardium. The resting images similarly demonstrate normal uptake of tracer noted in all areas myocardium. No areas of reversibility are noted suggest ischemia no previous infarct is noted. Gated SPECT analysis. The gated ejection fraction is 83%. Conclusion: Exercise myocardial perfusion stress test with no evidence of ischemia at a moderate workload. Atypical Chest pain of questionable significance. Preserved ejection fraction.
== END ==
PROVIDERS: Family Provider Family Medicine; PCP Family Medicine; Visit Provider Internal Medicine Cardiovascular Disease
DX: I25.10 Atherosclerotic heart disease of native coronary artery without angina pectoris (principal); R07.9 Chest pain, unspecified
CPT/HCPCS: 78452; 93017; A9500; A4216

== ENCOUNTER → 2017-06-06 12:50 | Outpatient (CLI) | payer MEDICARE, OTHER, SELFPAY ==
--- NOTE | 2017-06-06 12:55 | RAD_ITS ---
STUDY: X-RAY - THORACIC SPINE REASON FOR EXAM: Female, 76 years old. back, chest pain TECHNIQUE: 2 view(s) of the thoracic spine were obtained. COMPARISON: None. FINDINGS: Normal kyphosis of the thoracic spine. There is no substantial scoliosis. There is multilevel endplate spondylosis of the thoracic vertebrae. There is multilevel disc space narrowing of the thoracic spine. The soft tissue structures are unremarkable. RAD/Thoracic Spine 2 Views IMPRESSION: There are degenerative changes as noted above. Electronically Signed: Jez Howard MD at 16:49 EDT , Service support ,
== END ==
PROVIDERS: Family Provider Family Medicine; PCP Family Medicine; Visit Provider Family Medicine
DX: M54.6 Pain in thoracic spine (principal)
CPT/HCPCS: 72070

== ENCOUNTER → 2017-06-15 13:12 | Outpatient (CLI) | payer MEDICARE, OTHER, SELFPAY ==
--- NOTE | 2017-06-15 13:53 | CT_ITS ---
STUDY: CT CHEST WITHOUT CONTRAST REASON FOR EXAM: Female, 77 years old. Dyspnea and chest pain. RADIATION DOSAGE (If Supplied By Facility): CTDIvol = ( 6.54 ) mGy, DLP = ( 215.85 ) mGycm TECHNIQUE: Transaxial imaging was performed without the administration of intravenous contrast material. Multiplanar coronal and sagittal images were reformatted. Individualized dose optimization techniques were used for this CT. COMPARISON: Chest radiograph dated April 15, 2017. FINDINGS: There is hyperinflation of the lungs consistent with chronic obstructive lung disease (COPD). There is a left lower lobe pulmonary nodule best seen on axial image #93 measuring approximately 5.9 mm in size. There is minimal bilateral basilar dependent atelectasis. There is a lucency in the right lower lobe that may represent a small pneumatocele. There is a right lower lobe pulmonary nodule on axial image #68 measuring approximately 3.4 mm in size. There is pleural fibrotic thickening of the pulmonary lung apices. Normal heart and pericardium. There are calcifications of the coronary arteries. There are multiple small lymph nodes within the mediastinum, which are normal in size and morphology most compatible with reactive lymph hyperplasia. Normal hilar regions. There is prominence of the pulmonary hilar arteries without peripheral pulmonary vascular congestion. There is atherosclerotic calcification of the aortic arch with tortuosity and elongation of the aortic arch and descending thoracic aorta. Maximum transverse dimension of ascending thoracic aorta measures approximately 3.2 cm. There is increased thoracic kyphosis. The bones appear mildly osteopenic. There is multilevel thoracic spondylosis. There is a moderately large hiatal hernia. The visualized pancreas appears atrophic. There is a small right-sided renal cyst measuring up to 1.8 cm in greatest dimension. CT/Chest without Contrast IMPRESSION: 1. COPD. 2. Tiny bilateral pulmonary nodules as described. Suggest follow-up as per Fleischner's criteria. 3. Sequela of coronary artery vascular disease. 4. Hiatal hernia. Electronically Signed: Anabel Grayson MD at 10:30 EDT , Service support ,
== END ==
PROVIDERS: Family Provider Family Medicine; PCP Family Medicine; Visit Provider Family Medicine
DX: R06.00 Dyspnea, unspecified (principal)
CPT/HCPCS: 71250

== ENCOUNTER → 2017-06-22 14:04 | Outpatient (CLI) | payer MEDICARE, OTHER, SELFPAY | PROVIDERS: Family Provider Family Medicine; PCP Family Medicine; Visit Provider Family Medicine | DX: R30.0 Dysuria (principal) | CPT/HCPCS: 87086 ==

== ENCOUNTER → 2017-08-09 11:43 | Outpatient (CLI) | payer MEDICARE, OTHER, SELFPAY ==
--- NOTE | 2017-08-09 09:00 | LES_PTH ---
PATIENT: ALTA MAYA LOC: [facility] U#:[id number] AGE/SX: 84/F ROOM: RE08/09/[address]: Dr. Tripp Shahid MD : 1940 BED: DIS: SPEC #: [id number] RECD: 08/09/17 10:59 STATUS: KEMI CAMPBELLKaylan #: [id number] MARYA: 08/09/17 09:[address]: Tripp Shahid DEPT: SURGICAL PATHOLOGY RECD BY: Kang Rock Tissues: Skin of leg, NOS Procedures: Special Stain Group I Surgery Specimen Level IV GMS Stain (control) HEADER OPERATION: Left leg punch biopsy PRE-OP DIAGNOSIS: Rash for two months TISSUE SUBMITTED: ? fungal vs nummular eczema MICROSCOPIC DIAGNOSIS Left leg rash, punch biopsy: Interface dermatitis. Negative for fungal organisms. See comment. 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 Occasional plasma cells and rare eosinophils are present. There is mild hyperkeratosis. GMS stain with matched control was used in the evaluation of this case. MICROSCOPIC DESCRIPTION Slides are reviewed. GROSS DESCRIPTION Received in fixative is one container labeled with the patient's name and designated left calf biopsy. The specimen consists of a punch biopsy of panda-white skin measuring 0.4 cm in diameter and 0.4 cm in length. The specimen is totally submitted in one cassette. / SJ:juan 08/09/17 TC:5 CPT: 24375, 19336
== END ==
PROVIDERS: Family Provider Family Medicine; PCP Family Medicine; Visit Provider Family Medicine
DX: L30.8 Other specified dermatitis (principal)
CPT/HCPCS: 88305; 88312

== ENCOUNTER → 2017-11-30 07:49 | Outpatient (CLI) | payer MEDICARE, OTHER, SELFPAY ==
--- NOTE | 2017-11-30 07:50 | US_ITS ---
STUDY: ABDOMINAL ULTRASOUND - RIGHT UPPER QUADRANT REASON FOR VISIT: Female, 77 years old. Chest pain TECHNIQUE: Ultrasound evaluation of the right upper quadrant was performed with real-time and static cruz-scale imaging. TECHNICAL QUALITY: Adequate. COMPARISON: None. FINDINGS: Liver: The liver measures 13.1 cm. There is normal echogenicity of the liver. The bile ducts are within normal limits. There is hepatic color flow. The direction of portal flow is hepatopetal. There is no demonstrated mass lesion. Gallbladder: Normal distended gallbladder. The gallbladder wall measures 2.4 mm. There is a negative sonographic Pollard's sign. There is no pericholecystic fluid. There are gallstones. Common Bile Duct (C.B.D.): The common bile duct measures 2.6 mm. Pancreas: Normal size of the head, body and tail of the pancreas. There is increased echogenicity of the pancreas. There is no demonstrated pancreatic mass or cyst. Right Kidney: Normal size of the right kidney. The right kidney measures 9.5 x 3.9 x 4.9 cm. Normal renal cortex. The right cortex measures 1.8 cm. There are 2 cysts measuring 1.0 to 1.6 cm. There is no right hydronephrosis. US/Gallbladder IMPRESSION: Cholelithiasis. Right renal cysts. Electronically Signed: Ministerio Alas DO at 23:54 EDT Tel [phone], Service support ,
[2017-11-30 10:02] LABS: Vitamin D,25 Hydroxy 47.1 ng/mL (29.95-100.01)
[2017-11-30 10:06] LABS: Anion Gap 10 (5-15); BUN 26 mg/dL (7-18); BUN/Creat Ratio 28.6 RATIO (10-20); Calcium,Total 9.5 mg/dL (8.5-10.1); Chloride 106 mmol/L (98-107); Cholesterol 203 mg/dL (200); Creatinine, Serum 0.91 mg/dL (0.55-1.02); EST Glomerular Filtration Rate 64 mL/min (>60); Est Glom Filt Rate - Afr Amer 78 mL/min (>60); Glucose 99 mg/dL (74-106); High Density Lipoprotein 58 mg/dL; Potassium 3.8 mmol/L (3.5-5.1); Sodium Level 143 mmol/L (136-145); Triglycerides 136 mg/dL; Very Low Density Lipoprotein 27 mg/dL (5-40)
== END ==
PROVIDERS: Family Provider Family Medicine; PCP Family Medicine; Visit Provider Internal Medicine Cardiovascular Disease
DX: R07.9 Chest pain, unspecified (principal); I10 Essential (primary) hypertension; M81.0 Age-related osteoporosis without current pathological fracture
CPT/HCPCS: 36415; 76705; 80048; 80061; 82306; 84443

== ENCOUNTER → 2017-12-05 14:23 | Outpatient (CLI) | payer MEDICARE, OTHER, SELFPAY | PROVIDERS: Family Provider Family Medicine; PCP Family Medicine; Referring Provider Family Medicine; Visit Provider Family Medicine | DX: R35.0 Frequency of micturition (principal) | CPT/HCPCS: 87086; 87088 ==

== ENCOUNTER → 2017-12-17 10:57 | Outpatient (CLI) | payer MEDICARE, OTHER, SELFPAY ==
[2017-12-17 12:11] LABS: Hemoglobin 12.1 g/dl (12.0-15.0); Mean Corp Hgb Conc 32.7 g/gl (32-36); Mean Corpuscular Hgb 31.3 pg (27.0-32.0); Mean Corpuscular Volume 95.6 fL (81-99); Mean Platelet Vol. 10.7 fl (6.2-12.0); Platelet Count 258 K/mm3 (150-450); RBC Distribution Width CV 13.2 % (11.6-14.6); RBC Distribution Width SD 44.5 fl (35.1-43.9); Red Blood Count 3.87 M/mm3 (4.2-5.4)
[2017-12-17 12:12] LABS: Scan Indicated on CBC? Y/N NO
[2017-12-17 12:32] LABS: Iron 89 ug/dL (50-170)
[2017-12-17 12:53] LABS: Vitamin B12 592 pg/mL (211-911)
[2017-12-19 07:38] LABS: Zinc, Plasma or Serum 104 ug/dL (56-134)
== END ==
PROVIDERS: Family Provider Family Medicine; PCP Family Medicine; Visit Provider Family Medicine
DX: L60.8 Other nail disorders (principal)
CPT/HCPCS: 36415; 82607; 83540; 84630; 85027

== ENCOUNTER → 2018-09-11 | Outpatient (CLI) | payer MEDICARE, OTHER, SELFPAY ==
[2018-08-18 10:53] VITALS: BMI 20.3
[2018-09-11 10:26] LABS: Vitamin D,25 Hydroxy 45.6 ng/mL (29.95-100.01)
[2018-09-11 10:28] LABS: Anion Gap 8 (5-15); BUN 22 mg/dL (7-18); BUN/Creat Ratio 23.4 RATIO (10-20); Calcium,Total 9.2 mg/dL (8.5-10.1); Chloride 108 mmol/L (98-107); Cholesterol 195 mg/dL (200); Creatinine, Serum 0.94 mg/dL (0.55-1.02); EST Glomerular Filtration Rate 62 mL/min (>60); Est Glom Filt Rate - Afr Amer 75 mL/min (>60); Glucose 98 mg/dL (74-106); High Density Lipoprotein 61 mg/dL; Sodium Level 143 mmol/L (136-145); Thyroid Stim Hormone (TSH) 1.36 uIU/mL (0.358-3.74); Triglycerides 109 mg/dL; Very Low Density Lipoprotein 22 mg/dL (5-40)
== END | disposition home or self-care (01) ==
LOC: MFPLAB 08:45
PROVIDERS: Family Provider Family Medicine; PCP Family Medicine; Referring Provider Family Medicine; Visit Provider Family Medicine
DX: I10 Essential (primary) hypertension (principal); M81.0 Age-related osteoporosis without current pathological fracture
CPT/HCPCS: 36415; 80048; 80061; 82306; 84443

== ENCOUNTER → 2018-12-24 | Outpatient (CLI) | payer MEDICARE, OTHER, SELFPAY ==
[2018-08-18 10:53] VITALS: BMI 20.3
--- NOTE | 2018-12-24 10:50 | RAD_ITS ---
STUDY: X-RAY CHEST REASON FOR EXAM: Female, 78 years old. Persistent symptoms of respiratory tract infection after 2 separate antibiotic treatments. TECHNIQUE: Frontal and lateral views of the chest. COMPARISON: April 15, 2017 FINDINGS: Stable hyperexpansion with a mild diffuse interstitial pattern. No focal consolidations. There is no demonstrated pleural abnormality. Stable mild cardiomegaly. Normal mediastinum and meño. Normal visualized pulmonary arteries. Aortic tortuosity with calcification unchanged. Thoracic osteopenia with spondylosis and slight increased kyphosis. Normal visualized ribs, clavicles, and shoulders. There is no demonstrated abnormality of the visualized soft tissue structures of the upper abdomen. RAD/Chest PA and Lateral IMPRESSION: Stable chest with no acute finding. Electronically Signed: Usama Shi MD at 16:56 EDT , Service support ,
== END | disposition home or self-care (01) ==
LOC: MTRAD 10:47
PROVIDERS: Family Provider Family Medicine; PCP Family Medicine; Referring Provider Family Medicine; Visit Provider Family Medicine
DX: J98.8 Other specified respiratory disorders (principal)
CPT/HCPCS: 71046

== ENCOUNTER → 2019-07-09 | Outpatient (CLI) | payer MEDICARE, OTHER, SELFPAY ==
[2018-08-18 10:53] VITALS: BMI 20.3
== END | disposition home or self-care (01) ==
PROVIDERS: PCP Family Medicine; Visit Provider Family Medicine
DX: R10.2 Pelvic and perineal pain (principal)
CPT/HCPCS: 87086

== ENCOUNTER → 2019-07-21 | Outpatient (CLI) | payer MEDICARE, OTHER, SELFPAY ==
[2018-08-18 10:53] VITALS: BMI 20.3
[2019-07-21 14:53] LABS: Absolute Lymphocyte Count 2.67 X10^3/uL (0.83-4.51); Absolute Neutrophil Count 6.8 X10^3/uL (2.0-7.7); Basophil# 0.06 X10^3/uL; Basophil% 0.6 % (0-1); Eosinophil# 0.49 X10^3/uL; Eosinophils% 4.5 % (0-5); Hematocrit 39.2 % (37-47); Hemoglobin 12.6 g/dL (12.0-15.0); Lymphocyte # 2.67 X10^3/ul (4.0); Lymphocyte % 24.7 % (19-41); Mean Corp Hgb Conc 32.1 g/dL (32-36); Mean Corpuscular Hgb 30.4 pg (27.0-32.0); Mean Corpuscular Volume 94.7 fL (81-99); Mean Platelet Vol. 10.4 fl (6.2-12.0); Monocyte% 7.4 % (0-10); NRBC Flagged by Analyzer 0 % (0-5); Neutrophil # 6.78 X10^3/uL (2.7-7.7); Neutrophil % 62.6 % (47-70); Platelet Count 272 K/mm3 (150-450); RBC Distribution Width SD 44.9 fl (35.1-43.9); Red Blood Count 4.14 M/mm3 (4.2-5.4); White Blood Count 10.8 K/mm3 (4.4-11.0)
[2019-07-21 15:16] LABS: ALB/GLOB Ratio 0.9 RATIO (0.9-2.4); AST(SGOT) 20 U/L (15-37); Alanine Aminotransfer ALT/SGPT 22 U/L (13-56); Albumin, Serum 3.8 g/dL (3.2-5.0); Alkaline Phosphatase 86 U/L (45-117); Anion Gap 6 (5-15); BUN 20 mg/dL (7-18); BUN/Creat Ratio 21.6 RATIO (10-20); Calcium,Total 10.4 mg/dL (8.5-10.1); Chloride 107 mmol/L (98-107); Creatinine, Serum 0.93 mg/dL (0.55-1.02); EST Glomerular Filtration Rate 62 mL/min (>60); Est Glom Filt Rate - Afr Amer 76 mL/min (>60); Globulin 4.1 g/dL (2.2-4.2); Glucose 85 mg/dL (74-106); Potassium 3.9 mmol/L (3.5-5.1); Protein, Total 7.9 g/dL (6.4-8.2); Sodium Level 141 mmol/L (136-145); Thyroid Stim Hormone (TSH) 1.02 uIU/mL (0.358-3.74)
== END | disposition home or self-care (01) ==
LOC: MTLAB 12:49
PROVIDERS: PCP Family Medicine; Referring Provider Nurse Practitioner Adult Health; Visit Provider Nurse Practitioner Adult Health
DX: R63.4 Abnormal weight loss (principal)
CPT/HCPCS: 36415; 80053; 84443; 85025

== ENCOUNTER → 2019-07-29 07:20 | Outpatient (CLI) | payer MEDICARE, OTHER, SELFPAY ==
[2018-08-18 10:53] VITALS: BMI 20.3
--- NOTE | 2019-07-29 07:24 | CT_ITS ---
STUDY: CT ABDOMEN AND PELVIS WITH AND WITHOUT CONTRAST REASON FOR EXAM: Female, 79 years old. ABD PAIN, WEIGHT LOSS, URINARY FREQUENCY RADIATION DOSAGE (If Supplied By Facility): CTDIvol = ( 10.52 ) mGy, DLP = ( 1063.57 ) mGycm TECHNIQUE: Transaxial images were obtained from the dome of the diaphragm to the symphysis pubis with oral contrast. Oral and IV Readi-CAT and 100mL Isovue-300 was administered. Sagittal and coronal images were reconstructed. Individualized dose optimization techniques were used for this CT. COMPARISON: None. FINDINGS: There is a 5 mm left lower lobe nodule image 10 series 3. The heart size is within normal limits. There is no pericardial effusion. Normal liver. There are multiple gallstones. Normal spleen. Normal pancreas. Normal bilateral adrenal glands. There are several right renal cysts measuring up to 2.0 cm. There is a small focus of cortical scarring of the left kidney. There is a large hiatal hernia. Normal small intestine. Normal colon. The appendix is visualized and appears normal. There are calcified plaques of the abdominal aorta and common iliac arteries. Normal inferior vena cava. Normal retroperitoneum. Normal urinary bladder. The uterus and adnexal structures are unremarkable. Normal abdominal wall. There is severe narrowing of the L4-[address]/CT Abd/Pelvis W/WO Contrast IMPRESSION: 1. 5 mm left lower lobe nodule image 10 series 3. Appropriate follow-up using Fleischner Society criteria is recommended. 2. Cholelithiasis. 3. Right renal cysts measuring up to 2.0 cm. 4. Large hiatal hernia. 5. There is no evidence of free intra-abdominal or intrapelvic air, fluid, or inflammatory process. Electronically Signed: Jack Espinosa MD at 16:56 EDT , Service support ,
== END ==
PROVIDERS: PCP Family Medicine; Referring Provider Urology; Visit Provider Urology
DX: R10.9 Unspecified abdominal pain (principal); R63.4 Abnormal weight loss; R31.9 Hematuria, unspecified; R39.15 Urgency of urination
CPT/HCPCS: 74178; Q9967

== ENCOUNTER → 2019-09-25 | Outpatient (CLI) | payer MEDICARE, OTHER, SELFPAY ==
[2018-08-18 10:53] VITALS: BMI 20.3
--- NOTE | 2019-09-25 10:16 | BI_ITS ---
MAMMOGRAPHY - BILATERAL SCREENING REASON FOR EXAM: Female, 79 years old. Routine annual screening examination. PERTINENT HISTORY: Non-contributory. Remote left breast biopsy. TECHNIQUE: Digital bilateral breast shashank (3D mammographic acquisition) in the CC and MLO projections. 2-D mediolateral oblique (MLO) and craniocaudad (CC) views of both breasts were obtained. CAD: Full Field Digital Mammography with Computer Added Detection was performed. COMPARISON: Comparison is made with prior study dated January 11, 2017. FINDINGS: Breast Composition: The breasts are heterogeneously dense, which may obscure small masses. There are no dominant masses or suspicious calcifications. No other significant abnormalities are identified. There has been no significant change since the prior study. BI/SCREEN MAMM (CAD) W/SHASHANK BILAT IMPRESSION: Stable bilateral screening mammogram. Yearly follow-up mammogram recommended. (A) ASSESSMENT CATEGORY: BIRADS Category 1: Negative. A letter regarding these results will be sent to the patient by the facility within 30 days. Approximately 10% of breast cancers are not detected by mammography. A normal mammogram should not delay biopsy of a clinically suspicious abnormality. [id number] Electronically Signed: Davian Fitch, at 11:16 EDT , Service support ,
--- NOTE | 2019-09-25 10:22 | BD_ITS ---
STUDY: DUAL ENERGY X-RAY ABSORPTIOMETRY / DXA REASON FOR EXAM: Female, 79 years old. 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 COMPARISON: Comparison is made with prior examination dated January 11, 2017. FINDINGS: Lumbar Spine (L1-L4): g/cm2 (0.931) / T-score (-2.0) / Z-score (-0.2) Findings are suggestive of osteopenia with a moderate fracture risk. Left Femur Total: g/cm2 (0.687) / T-score (-2.5) / Z-score (-0.7) Left Femoral Neck: g/cm2 (0.689) / T-score (-2.5) / Z-score (-0.5) Right Femur Total: g/cm2 (0.675) / T-score (-2.6) / Z-score (-0.8) Right Femoral Neck: g/cm2 (0.651) / T-score (-2.8) / Z-score (-0.8) The T-Scores on the most recent prior examination were: Lumbar Spine (L1-L4): There has been worsening of bone density since the previous examination. Left Femur Total: which represents a worsening of 2.4%. Right Femur Total: which represents a worsening of 3.6%. BD/Dexa Bone Density Study IMPRESSION: The patient is considered osteoporotic as outlined below according to World [place] Organization (WHO) criteria with a high fracture risk. There has been worsening of bone density since the previous examination. Reference Information: The T-score is the number of standard deviations above or below the standard which is normal for young adults at their peak bone mineral density. The World Health Organization (WHO) interprets the T-scores as follows: Above -1 Normal bone density Between -1 and -2.5 Osteopenia Equal to / or below -2.5 Osteoporosis As a practical clinical guideline, osteopenia may be graded as follows: Mild -1 through -1.5 Moderate -1.6 through -2.0 Severe -2.1 through -2.4 The Z-score is the number of standard deviations above or below age-matched controls. A Z-score of less than -1.5 would be considered abnormal. References: 1. NIH Osteoporosis and Related Bone Diseases http://www.osteo.org 2. International Society for Clinical Densitometry http://www.iscd.org 3. National Osteoporosis Foundation http://www.nof.org Electronically Signed: Davian Fitch, at 15:29 EDT , Service support ,
== END | disposition home or self-care (01) ==
LOC: OPBD 10:13
PROVIDERS: PCP Family Medicine; Referring Provider Family Medicine; Visit Provider Family Medicine
DX: M81.0 Age-related osteoporosis without current pathological fracture (principal); Z78.0 Asymptomatic menopausal state; Z12.31 Encounter for screening mammogram for malignant neoplasm of breast
CPT/HCPCS: 77063; 77067; 77080

== ENCOUNTER → 2020-01-01 | Outpatient (CLI) | payer MEDICARE, OTHER, SELFPAY ==
[2018-08-18 10:53] VITALS: BMI 20.3
[2020-01-01 12:22] LABS: Erythrocyte Sedimentation Rate 13 mm/hr (0-30)
[2020-01-01 12:24] LABS: Hematocrit 37.9 % (37-47); Mean Corp Hgb Conc 31.7 g/dL (32-36); Mean Corpuscular Hgb 30.6 pg (27.0-32.0); Mean Corpuscular Volume 96.7 fL (81-99); Mean Platelet Vol. 10.9 fl (6.2-12.0); Platelet Count 268 K/mm3 (150-450); RBC Distribution Width SD 46.5 fl (35.1-43.9); Red Blood Count 3.92 M/mm3 (4.2-5.4); White Blood Count 8.5 K/mm3 (4.4-11.0)
[2020-01-01 12:52] LABS: Vitamin B12 660 pg/mL (211-911); Vitamin D,25 Hydroxy 46.7 ng/mL
[2020-01-01 13:07] LABS: Anion Gap 6 (5-15); BUN 21 mg/dL (7-18); BUN/Creat Ratio 23.4 RATIO (10-20); Calcium,Total 9.5 mg/dL (8.5-10.1); Chloride 109 mmol/L (98-107); EST Glomerular Filtration Rate 65 mL/min (>60); Est Glom Filt Rate - Afr Amer 78 mL/min (>60); Glucose 85 mg/dL (74-106); Iron 95 ug/dL (50-170); Sodium Level 141 mmol/L (136-145)
[2020-01-05 10:28] LABS: Zinc, Plasma or Serum 95 ug/dL (56-134)
== END | disposition home or self-care (01) ==
LOC: MFPLAB 10:43
PROVIDERS: PCP Family Medicine; Referring Provider Family Medicine; Visit Provider Family Medicine
DX: L65.9 Nonscarring hair loss, unspecified (principal)
CPT/HCPCS: 36415; 80048; 82306; 82607; 83540; 84443; 84630; 85027; 85652

== ENCOUNTER → 2020-01-07 | Outpatient (CLI) | payer MEDICARE, OTHER, SELFPAY ==
[2018-08-18 10:53] VITALS: BMI 20.3
--- NOTE | 2020-01-07 12:30 | RAD_ITS ---
HISTORY: right knee pain, no known injury ADDITIONAL HISTORY: None provided. EXAMINATION/TECHNIQUE: XR Knee Complete 4 Views or More Right Number of images including paperwork: 4 COMPARISON: None FINDINGS: BONES: No acute fracture. JOINTS: No subluxation. SOFT TISSUES: No distinct foreign body. Anterior soft tissue swelling. RAD/Knee 4 or More Views IMPRESSION: No acute osseous abnormality. Anterior soft tissue swelling. at 0300 Reported and signed by: Chey Jeronimo MD Electronically Signed: Chey Jeronimo MD at 2:59 EDT Tel , Service support ,
== END | disposition home or self-care (01) ==
PROVIDERS: PCP Family Medicine; Referring Provider Family Medicine; Visit Provider Family Medicine
DX: M25.561 Pain in right knee (principal)
CPT/HCPCS: 73564

== ENCOUNTER → 2020-01-14 08:51 | Outpatient (CLI) | payer MEDICARE, OTHER, SELFPAY ==
[2018-08-18 10:53] VITALS: BMI 20.3
--- NOTE | 2020-01-14 08:55 | RAD_ITS ---
STUDY: X-RAY - PELVIS AND BILATERAL HIPS REASON FOR EXAM: Female, 79 years old. LOW BACK AND BILATERAL HIP PAIN X 1 WEEK. NO INJURY TECHNIQUE: AP view of the pelvis.? 2 views of the right hip, and 2 views of the left hip were obtained. COMPARISON: None. FINDINGS: There is a non-specific bowel gas pattern. Normal visualized soft tissue structures. Normal bilateral iliac wings, sacroiliac joints and visualized sacrum. Normal bilateral superior and inferior pubic rami. Normal pubic symphysis. Normal bilateral ischial tuberosities. Normal visualized right femoral head. Normal right acetabulum. Normal right hip joint. Normal visualized left femoral head. Normal left acetabulum. Normal left hip joint. RAD/Hips B/L min 2 views w/ Pelvis IMPRESSION: Normal x-ray examination of the pelvis and bilateral hips. Electronically Signed: Larry Marrufo MD at 20:03 EST , Service support ,
--- NOTE | 2020-01-14 08:55 | RAD_ITS ---
STUDY: X-RAY - LUMBAR SPINE REASON FOR EXAM: Female, 79 years old. LOW BACK AND BILATERAL HIP PAIN X 1 WEEK. NO INJURY TECHNIQUE: 5 view(s) of the lumbar spine were obtained. COMPARISON: None FINDINGS: Normal lumbar lordosis. There is no substantial scoliosis. There is a normal alignment of the vertebrae. Normal vertebral bodies and endplates. There is multi-level degenerative disc disease with multi-level disc space narrowing. Oblique images negative for pars defects. The soft tissue structures are unremarkable. RAD/L/S Spine Min 4 Views IMPRESSION: Degenerative disc disease L4-5 and L5-S1 in particular Electronically Signed: Larry Marrufo MD at 23:53 EST , Service support ,
== END ==
PROVIDERS: PCP Family Medicine; Referring Provider Family Medicine; Visit Provider Family Medicine
DX: M79.604 Pain in right leg (principal); M54.5 Low back pain
CPT/HCPCS: 72110; 73521

== ENCOUNTER 2020-02-05 07:57 | Emergency (ER) | payer MEDICARE, OTHER, SELFPAY ==
[2018-08-18 10:53] VITALS: BMI 20.3
[2020-02-05 07:58] VITALS: BP 179/81; PULSE 105; RESP 14; TEMP 36.2; O2SAT 100; BMI 20.2
--- NOTE | 2020-02-05 08:21 | ED.VIS.GI ---
History of Present Illness Chief Complaint: Constipation Narrative: Patient presenting for evaluation secondary to constipation. Patient reports that over the course of the last 2 weeks she has been dealing with difficulty with bowel movements. Patient tells me that she frequently takes Colace, that was not alleviating her symptoms and then she called her primary care yesterday and they recommended that she try MiraLAX. Patient states that that did not give her relief. She has been attempting to manually disimpact. She reports that she has a feeling that she needs to have a bowel movement but simply cannot get anything to pass. She denies any nausea or vomiting. She denies any fevers. She does report that she has some mild abdominal distention. She does report that she has some external hemorrhoids that are uncomfortable and occasionally bleed. Patient is not on any opiate medications. She denies history of abdominal surgeries. Review of systems otherwise negative. Past Medical History - Allergies and Home Meds Allergies/Adverse Reactions: Allergies ranolazine [From Ranexa] Adverse Reaction (Severe, Verified 02/05/20 07:58) low urine output, rash oseltamivir [From Tamiflu] Adverse Reaction (Verified 02/05/20 07:58) Unknown Primary Care Physician: Errol Shahid MD [Primary Care Provider] - Prior records reviewed: Yes Past Medical History: - - Coronary artery disease, hypertension, hyperlipidemia Surgical History: cataract, tonsillectomy, - - Sinus surgery ?2 Smoking Status: Never smoker Alcohol: None Drugs: None - Family History Maternal Family History: Family History (Last Reviewed 08/18/18 @ 10:25 by Beverly Kincaid) Father CAD (coronary artery disease) CVA (cerebral vascular accident) Hypertension Mother Hypertension Brother Hypertension Sister Diabetes Other Heart disease Family History: Reports: Diabetes Paternal Family History: Family History (Last Reviewed 08/18/18 @ 10:25 by Beverly Kincaid) Father CAD (coronary artery disease) CVA (cerebral vascular accident) Hypertension Mother Hypertension Brother Hypertension Sister Diabetes Other Heart disease Family History: Reports: Heart Disease - father started with heart disease in his 40's, Stroke Review of Systems All systems negative except as indicated General: Denies: Chills, Fever, Sweats Eyes: Denies: Visual changes - bilaterally, Diplopia ENT: Denies: Rhinorrhea, Sore throat Cardiovascular: Denies: Chest pain, Palpitations Respiratory: Denies: Dyspnea, Cough, Dyspnea on exertion Gastrointestinal: Reports: Abdominal pain, Constipation Genitourinary: Denies: Dysuria, Hematuria, Frequency Musculoskeletal: Denies: Back pain, Extremity Pain Skin: Denies: Rash, Wounds Neurological: Denies: Headache, Weakness, Numbness Physical Exam Vital Signs/Narrative: Vital Signs Temp Pulse Resp BP Pulse Ox 02/05/20 07:58 97.2 F L 105 H 14 179/81 H 100 Inital Vital Signs reviewed: Yes General: Well nourished, Well developed, - - Thin elderly female no acute distress Head: Normocephalic, Atraumatic Eyes: Perrl, EOMI ENT: Moist mucous membranes, No rhinorrhea Neck: Supple, Nontender Cardiovascular: Regular rate, Regular rhythm, No murmurs Respiratory: No distress, CTA bilaterally, Chest nontender Abdomen: Soft, Nontender, Nondistended, Normal bowel sounds Rectal: - - Rectal exam shows multiple nonthrombosed external hemorrhoids, no active bleeding. A digital rectal exam that was chaperoned shows a large stool burden within the rectum, no real evidence of impaction Back: Nontender, Normal Inspection Extremities: Nontender, No edema Skin: Normal color, No rash Neurological: Alert, Oriented x3, Cranial nerves II-XII grossly intact, Normal Strength, Normal Sensation Psychological: Normal affect, Normal Mood Diagnostic/Tx/Re-eval - Medical Decision Making Patient presented secondary to constipation. I did attempt manual disimpaction. Nursing was present, patient was placed in the left lateral decubitus position. Lubricated finger was utilized to break up stool within the patient's rectum, small amounts of stool were able to be expressed. Remainder the stool within the rectum is in small pieces and is soft. Patient was ordered a soapsuds enema as well as magnesium citrate. Repeat evaluation of the patient at 09 shows the patient to be having some relief with a bowel movement. Patient will be sent home with the magnesium citrate. She was recommended that following that she continue on a bowel regimen with Colace. Patient was discharged in stable condition. ED Disposition - Plan for ED Patient: Disposition: Home or Assisted Living Diagnosis: Constipation Instructions: ED Constipation Referrals: Errol Shahid MD [Primary Care Provider] - 1-2 Days if not improving
[2020-02-05] MEDS: Magnesium Citrate 300 ML PO (09:28)
== END 2020-02-05 09:29 | disposition home or self-care (01) ==
PROVIDERS: Emergency Provider Emergency Medicine; PCP Family Medicine
DX: K59.00 Constipation, unspecified (principal); E78.5 Hyperlipidemia, unspecified; I10 Essential (primary) hypertension; I25.10 Atherosclerotic heart disease of native coronary artery without angina pectoris
CPT/HCPCS: 99284

== ENCOUNTER 2020-02-13 10:30 | Outpatient (RCR) | payer MEDICARE, OTHER, SELFPAY ==
[2018-08-18 10:53] VITALS: BMI 20.3
--- NOTE | 2020-01-23 14:35 | HP.PTEVAL_ITS ---
Patient's Visit Information ALTA MAYA is a 79 year old F referred to Physical Therapy by Dr. Errol Burris MD with a diagnosis of BACK AND RIGHT LE PAIN.. Date of Evaluation: 01/23/20 Physical Therapist: Shonda Garcia PT, Cert MDT - Visit Plan Frequency: 2-3x /Week Duration: 4-6 Weeks Plan: CONSIDER RIGHT KNEE AND/OR LOW BACK US. MH OR CP NEEDED. GAIT AND BALANCE TRAINING, POSTURE CORRECTION/STRENGTHENING, INSTRUCTION IN APPROPRIATE BODY MECHANICS AND ACTIVITY MODIFICATIONS. DLS STARTING WITH A NEUTRAL SPINE PROGRESSING ROM TOLERATED. MIC LE ROM, STRETCHING AND STRENGTHENING. HEP INSTRUCTION. - Subjective Work/Leisure: RETIRED. Present symptoms: CONSTANT LOW BACK PAIN. RIGHT THIGH, KNEE AND CASTRO. PATIENT DENIES RIGHT LE NUMBNESS OR TINGLING. SHE ALSO DENIES RIGHT ANKLE, FOOT OR TOE SYMPTOMS. NO LLE PAIN. (CHRONIC RIGHT LE SWELLING X 40 YEARS). Present since: CHRONIC LBP. RIGHT KNEE PAIN STARTED ABOUT 3 WEEKS AGO. Pain Scale: WORST 5/10, LEAST1/10. Currently: 05/19. Commenced as a result of: PATIENT REPORTS HER RIGHT KNEE PAIN STARTED FOR NO APPARENT REASON. STATES IT HURT WHEN SHE GOT OUT OF BED BUT A FEW DAYS BEFORE SHE WAS CUTTING DOWN TREES AND SHE KNOWS SHE DID TOO MUCH WALKING. Symptoms at onset: RIGHT KNEE. Worse: STADNING, WALKING, GETTING OUT THE CAR, RISING FROM SITTING, TURNING OVER IN BED, TRYING TO LIE DOWN IN THE BED. CAN'T SLEEP IN THE BED. Better: SITTING. Disturbed sleep: YES. Previous history/Previous treatment: UNREMARKABLE OTHER THAN RIGHT LE SWELLING FROM ABOUT 40 YEARS AGO WHEN THEY SUSPECTED THROMBOPHLEBITIS. Treatment this episode: MALOXACAM NOW. TRIED MUSCLE RELAXER BUT DIDN'T HELP. Coughing/sneezing/straining: NEGATIVE. Gait: PATIENT REPORTS SHE WAS AMBULATING INDEP'LY WITHOUT AD PRIOR TO 3 WKS AGO WHEN KNEE PAIN STARTED. WALKER HAS BEEN ORDERED BY DR. BURRIS BUT SHE HAS NOT PURCHASED ONE YET BECAUSE SHE WANTS TO WAIT AND SEE IF SHE GETS BETTER WITH PT. SHE IS USING A CANE BECAUSE SHE IS AFRAID OF FALLING AND HAS OSTEOPOROSIS. SHE REPORTS IT GIVES HER SUPPORT BUT SHE DOESN'T REALLY THINK IT HELPS THE PAIN. PATIENT REPORTS THAT BEFORE HER RIGHT KNEE PAIN STARTED SHE WAS STARTING TO JAIME OFF TO ONE SIDE OR ANOTHER WALKING SO THE DOCTOR ORDERED A BALANCE TEST. SHE DID NOT HAVE THAT COMPLETED BEFORE THIS KNEE PAIN STARTED AND THERAPY WAS ORDERED FOR HER KNEE AND BACK PAIN. PATIENT REPORTS BEING UNABLE TO DO THE BALANCE TEST ORDERED ORIGINALLY DUE TO NEW ONSET KNEE PAIN. PATIENT WILL R/S HER BALANCE EXAM AFTER HER KNEE AND BACK PAIN ARE BETTER. Difficulty initiating urinatin: NO. Accidents: NO. Unexplained weight loss: NO. Imaging: RECENT LUMBAR X-RAY: Degenerative disc disease L4-5 and L5-S1 in particular. PMH: OSTEOPOROSIS, HTN, HIGH CHOLESTEROL - Objective Sitting/Standing Posture: POOR. VERY SLOUCHED. INCREASED KYPHOSIS. DECREASED LORDOSIS. NO RELEVENT LATERAL SHIFT. RIGHT ILIAC CREST SLIGHTLY HIGHER THAN LEFT. Lordosis: DECREASED. Lateral shift: NO. Relevant shift: N/A. Active Correction of posture: NE. Other Observations: INDEP GAIT INTO PT WITH STRAIGHT CANE THAT IS TOO HIGH FOR HER AND CAN NOT BE ADJUSTED LOWER. THIS PT INSTRUCTED IN APPROPRIATE FIT AND HE IS GOING TO TRY TO ADAPT IT. KILEY IS SLOW AND A BIT UNSTEADY BUT NO LOSS OF BALANCE NOTED. USING CANE IN WRONG UE. LIMPTING ON RIGHT LE. DECREASED RIGHT LE HEEL STRIKE, FOOT FLAT AND T OE OFF PHASES OF GAIT. Motor deficit: LLE GROSSLY 4-5/5 WITH MMT'ING. RIGHT LE: HIP 3-/5, KNEE EXT 3+/5, KNEE FLEX 3+/5, ANKLE 5/5. Sensory deficit: MIC LE LIGHT TOUCH SENSATION INTACT AND SYMMETRICAL. ROM deficit: RIGHT KNEE AROM IN SUPINE WITH A HEEL SLIDE = 0 DEG EXT TO 127 DEG FLEXION AND PAIN AT THE END OF THE AVAILABLE RANGE IN KNEE. LEFT KNEE ROM = 0 DEG EXT TO APPROX 140 DEG FLEXION AND PAINFREE WITH TESTING. Reflexes: NT. Dural Signs: POSSIBLE POSSITIVE RIGHT LE. Lumbar mvmt loss: flex - MOD. ext - CONCHA. R SG - CONCHA. L SG - CONCHA. Core strength: POOR. Palpation: NO ACUTE LUMBOSACRAL TENDERNESS BUT INFERIOR RIGHT KNEE SWELLING AND TENDERNESS BILATERALLY. PALPATION OF RIGHT PATELLAR AREA RADIATES PAIN LATERALLY. TREATMENT: NEUROMUSCULAR REEDUCATION - RETRAINING OF MVMT AND POSTURE FOR SITTING, LYING AND STANDING ACTIVITIES. GAIT TRAINING WITH STRAIGHT CANE ON LEVEL SURFACES AND UP AND DOWN STEPS. REINFORCEMENT NEEDED. - Goals Goal 1:: DECREASE C/O LOW BACK AND RIGHT LE PAIN Goal Time Frame: 4-6 Weeks Goal 2:: IMPROVE STANDING, WALKING, ADL, HOUSEWORK, SLEEP AND RECREATIONAL FUNCTION. Goal Time Frame: 4-6 Weeks Goal 3:: INSTRUCT IN PROPHYLAXIS Goal Time Frame: 4-6 Weeks - Anticipated Interventions Patient/Client Instruction: Educate patient on: Condition, Plan of Care, Risk Factors, Benefits of Fitness Program For the Purpose of:: To improve self management Therapeutic Exercise to Include: Strength training, Body mechanics, Postural training, Flexibilty training, Gait and locomotor training, Neuromotor development, Active ROM, Scapular Strength/Stabilization For the Purpose of:: To decrease pain, To increase ROM, To improve muscle performance and motor function, To increase tolerance to activity/condition/position, To improve ability of physical actions for home/community/work/leisure, To improve gait and locomotor functions Cryotherapy (ice pack, ice massage): Yes Thermo therapy (hot pack): Yes Ultrasound (thermal/non thermal): Yes For the Purpose of:: To decrease pain, To decrease swelling/inflammation, To improve nutrient delivery to tissue Thank you for the opportunity to evaluate your patient. For Medicare and Medicare HMO plans, please review the plan of care and approve it. It will need to be FAXED BACK to us at [phone] for Medicare purposes. For Medicare only, by signing this I certify the plan of care. Please let me know if there are questions or concerns regarding this plan of care. Physician Signature: Date:
--- NOTE | 2020-02-13 10:57 | HP.PTDCSUM ---
It has been my pleasure to treat ALTA MAYA referred by Dr. Errol Shahid MD, with the diagnosis of BACK AND RIGHT LE PAIN. for a total of 8 visit(s). Discharge Date: 02/13/20 Please see the following information for a summary of their discharge status. Subjective: PATIENT REPORTS SHE IS A LOT BETTER. NOT USING THE CANE VERY MUCH ANYMORE UNLESS SHE GOES OUT. GOING TO STOP PT NOW BECAUSE IS GOING TO HAVE SURGERY. LOW BACK Pain Intensity (Out of 10): 0 RIGHT KNEE Pain Intensity (Out of 10): Unrated RIGHT THIGH Pain Intensity (Out of 10): 3 % Improvement: 90 Objective/Function: PATIENT WAS SEEN TODAY FOR RE-ASSESSMENT OF PROGRESS TOWARD THE SET PT GOALS AND THE NEED FOR FURTHER PHYSICAL THERAPY VS READINESS FOR DISCHARGE. UPON EXAM TODAY ALL GOALS HAVE BEEN MET. PATIENT HAS RIGHT LE STENGTH AND ROM WFL NOW AND KNEE FLEXION TO APPROX 140 DEG NOW WHICH IS SYMMETRICAL WITH L KNEE. SHE HAS RESUMED NORMAL ACTIVITY AND IS APPROPRIATE FOR DISCHARGE. Goal 1:: DECREASE C/O LOW BACK AND RIGHT LE PAIN Goal Progress: Goal Met Goal 2:: IMPROVE STANDING, WALKING, ADL, HOUSEWORK, SLEEP AND RECREATIONAL FUNCTION. Goal Progress: Goal Met Goal 3:: INSTRUCT IN PROPHYLAXIS Goal Progress: Goal Met Plan: D/C TO HEP. PATIENT AGREEABLE. If there are questions or concerns regarding this patient's physical therapy, please feel free to call me at [phone]. Thank you for the referral of this patient. Sincerely, Shonda Garcia, PT, Cert MDT
== END 2020-02-13 19:00 | disposition home or self-care (01) ==
LOC: PT 10:30
PROVIDERS: PCP Family Medicine; Referring Provider Family Medicine; Visit Provider Family Medicine
DX: M79.604 Pain in right leg (principal); M54.9 Dorsalgia, unspecified
CPT/HCPCS: 97035; 97110; 97112; 97162; 97164; 97530

== ENCOUNTER 2020-05-10 10:11 | Outpatient (RCR) | payer MEDICARE, OTHER, SELFPAY | END 2020-05-10 23:59 | LOC: IMMUN 10:11 | PROVIDERS: PCP Family Medicine; Visit Provider Family Medicine | DX: Z23 Encounter for immunization (principal) | CPT/HCPCS: 0011A; 0012A ==

== ENCOUNTER → 2020-10-06 14:38 | Outpatient (CLI) | payer MEDICARE, OTHER, SELFPAY ==
--- NOTE | 2020-10-06 14:43 | CT_ITS ---
STUDY: CT CHEST WITHOUT CONTRAST REASON FOR EXAM: Female, 80 years old. PULMONARY NODULE. RADIATION DOSAGE (If Supplied By Facility): CTDIvol = ( 6.05 ) mGy, DLP = ( 207.06 ) mGycm TECHNIQUE: Transaxial imaging was performed without the administration of intravenous contrast material. Multiplanar coronal and sagittal images were reformatted. Individualized dose optimization techniques were used for this CT. COMPARISON: Comparison is made with prior study dated 06/15/2017. FINDINGS: Hyperinflation. Stable scarring in the right lung apex. Stable thickening of the superior aspect of the right major fissure. Stable mild scarring at the lung bases. Stable 5.8 mm noncalcified nodule in the posterior aspect of the left lower lobe adjacent to the left hemidiaphragm. There is no demonstrated pleural abnormality. There are calcifications of the coronary arteries. There are multiple small lymph nodes within the mediastinum, which are normal in size and morphology most compatible with reactive lymph hyperplasia. Normal hilar regions. Normal unenhanced pulmonary arteries. There is atherosclerotic calcification of the aortic arch with tortuosity and elongation of the aortic arch and descending thoracic aorta. Normal osseous structures. Moderate sized hiatal hernia. Small gallstone. Pancreatic atrophy. CT/Chest without Contrast IMPRESSION: Stable 5.8 mm noncalcified nodule in the posterior aspect of the left lower lobe adjacent to the left hemidiaphragm. Stable hyperinflation and scarring in the lungs as described. Electronically Signed: Davian Fitch MD at 20:58 EDT , Service support ,
== END ==
PROVIDERS: PCP Family Medicine; Referring Provider Family Medicine; Visit Provider Family Medicine
DX: R91.1 Solitary pulmonary nodule (principal)
CPT/HCPCS: 71250

== ENCOUNTER → 2020-12-13 08:35 | Outpatient (CLI) | payer MEDICARE, OTHER, SELFPAY ==
[2020-12-13 10:24] LABS: Vitamin D,25 Hydroxy 47.4 ng/mL
[2020-12-13 10:31] LABS: PTHIN 60.5 pg/mL (18.4-80.1)
[2020-12-13 10:36] LABS: AST(SGOT) 17 U/L (15-37); Alanine Aminotransfer ALT/SGPT 23 U/L (13-56); Albumin, Serum 3.3 g/dL (3.2-5.0); Alkaline Phosphatase 77 U/L (45-117); Anion Gap 8 (5-15); BUN 22 mg/dL (7-18); BUN/Creat Ratio 22.2 RATIO (10-20); Bilirubin, Direct 0.14 mg/dL (0.00-0.30); Chloride 106 mmol/L (98-107); Cholesterol 202 mg/dL (200); Creatinine, Serum 0.99 mg/dL (0.55-1.02); EST Glomerular Filtration Rate 58 mL/min (>60); Est Glom Filt Rate - Afr Amer 70 mL/min (>60); Glucose 97 mg/dL (74-106); High Density Lipoprotein 68 mg/dL; Magnesium 2.2 mg/dL (1.6-2.6); Phosphorus 3.1 mg/dL (2.5-4.9); Potassium 3.9 mmol/L (3.5-5.1); Protein, Total 7.3 g/dL (6.4-8.2); Sodium Level 141 mmol/L (136-145); Thyroid Stim Hormone (TSH) 0.82 uIU/mL (0.358-3.74); Triglycerides 82 mg/dL; Very Low Density Lipoprotein 16 mg/dL (5-40)
== END ==
PROVIDERS: PCP Family Medicine; Referring Provider Family Medicine; Visit Provider Family Medicine
DX: Z00.00 Encounter for general adult medical examination without abnormal findings (principal); M81.0 Age-related osteoporosis without current pathological fracture; E78.5 Hyperlipidemia, unspecified
CPT/HCPCS: 36415; 80048; 80061; 80076; 82306; 82330; 83735; 83970; 84100; 84443

== ENCOUNTER → 2021-02-28 15:11 | Outpatient (CLI) | payer MEDICARE, OTHER, SELFPAY | PROVIDERS: PCP Family Medicine; Referring Provider Otolaryngology Otolaryngology/Facial Plastic Surgery; Visit Provider Otolaryngology Otolaryngology/Facial Plastic Surgery | DX: J32.8 Other chronic sinusitis (principal) | CPT/HCPCS: 87070; 87205 ==

== ENCOUNTER 2021-04-25 13:41 | Outpatient (CLI) | payer MEDICARE, OTHER, SELFPAY ==
--- NOTE | 2021-04-25 13:47 | CT_ITS ---
STUDY: CTA OF THE BRAIN REASON FOR EXAM: Female, 80 years old. LEFT EYE PAIN RADIATION DOSAGE (If Supplied By Facility): CTDIvol = ( 29.38 ) mGy, DLP = ( 429.92 ) mGycm TECHNIQUE: CT angiography was performed with a multi-detector CT scanner. Data acquisition was obtained from the skull base through the vertex following intravenous administration of 100 CC ISOVUE 300. MIP images were reconstructed from the axial data set. Post-processing of the angiographic images was performed, with multiplanar reformation and 3D reconstruction. Individualized dose optimization techniques were used for this CT. COMPARISON: None. FINDINGS: Normal bilateral petrous carotid arteries. Normal right cavernous carotid artery with a normal supraclinoid bifurcation. Normal left cavernous carotid artery with a normal supraclinoid bifurcation. Normal right A1 segments of the anterior cerebral artery. Normal left A1 segments of the anterior cerebral artery. Normal intact anterior communicating artery (ACOM). Normal bilateral A2 segments of the anterior cerebral arteries. Normal right M1 and M2 segments of the middle cerebral arteries, with a normal M1 bifurcation. Normal left M1 and M2 segments of the middle cerebral arteries, with a normal M1 bifurcation. Normal right posterior communicating artery (PCOM). Normal left posterior communicating artery (PCOM). Normal bilateral vertebral arteries. Normal basilar artery with a normal basilar bifurcation. The visualized bilateral superior cerebellar (SCA) arteries are normal. Normal bilateral P1, P2 and visualized P3 segments of the posterior cerebral arteries. There is no demonstrated aneurysm of the [place]. There is a 2 cm x 1.5 cm x 1.5 cm polyp or retention cyst in the posterior aspect of the left ethmoid sinus causing scalloping of the bony structures at that site. This extends into the region of the left orbital foramen. CT/Orb Sella Post Fossa Ear W/CON IMPRESSION: 2 cm x 1.5 signed by 1.5 cm polyp or retention cyst in the posterior aspect of the left ethmoid sinus causing scalloping of the bony structures at that site. Electronically Signed: Davian Fitch MD at 14:21 EST ,
[2021-04-25 14:01] LABS: CREATININE FINGERSTICK < 0.6 mg/dL (0.55-1.02); EGFR FINGERSTICK > 60.0000 mL/min (>60)
== END 2021-04-25 23:59 | disposition home or self-care (01) ==
LOC: CT 13:43
PROVIDERS: PCP Family Medicine; Referring Provider Family Medicine; Visit Provider Family Medicine
DX: H57.12 Ocular pain, left eye (principal)
CPT/HCPCS: 70481; Q9967

== ENCOUNTER 2021-06-16 17:47 | Outpatient (CLI) | payer MEDICARE, OTHER, SELFPAY ==
--- NOTE | 2021-06-16 17:50 | CT_ITS ---
STUDY: CT MAXILLOFACIAL SINUSES REASON FOR EXAM: Female, 81 years old. SINUSITIS RADIATION DOSAGE (If Supplied By Facility): CTDIvol = ( 33.06 ) mGy, DLP = ( 1576.79 ) mGycm TECHNIQUE: The patient was scanned in a multi detector CT scanner. High resolution axial imaging was performed without the administration of intravenous contrast material. Sagittal and coronal images were reconstructed. Individualized dose optimization techniques were used for this CT. COMPARISON: 04/25/2021 FINDINGS: FRONTAL SINUSES: Normal aeration, without mucosal inflammatory disease. ETHMOIDAL SINUSES: Complete opacification of posterior left ethmoid air cell on image 86 of series 7. Similar amount of osseous thinning along the medial wall (image 85 series 7). Remainder of the ethmoid air cells are normal. MAXILLARY SINUSES: Normal aeration, without mucosal inflammatory disease. SPHENOIDAL SINUSES: Normal aeration, without mucosal inflammatory disease. Previous sinus surgery with osteotomies involving the ostiomeatal units. Normal bilateral middle turbinates. Normal bilateral inferior turbinates. Normal midline nasal septum. There is patency of the bilateral nasal airways. The visualized osseous structures are normal. The visualized bilateral orbital contents are normal. CT/Sinus/Facial Bone IMPRESSION: 1. Stable polyp or retention cyst of posterior left ethmoid air cell with osseous remodeling. 2. Previous sinus surgery. Electronically Signed: Nikko Obrien MD ([place]) at 16:15 EDT ,
== END 2021-06-16 23:59 | disposition home or self-care (01) ==
LOC: CT 17:48
PROVIDERS: PCP Family Medicine; Visit Provider Otolaryngology
DX: J32.9 Chronic sinusitis, unspecified (principal)
CPT/HCPCS: 70486

== ENCOUNTER 2021-06-21 09:42 | Day surgery (SDC) | payer MEDICARE, OTHER, SELFPAY ==
--- NOTE | 2021-06-15 08:33 | EKG12_ITS ---
Test Reason : PRE OP Blood Pressure : / mmHG Vent. Rate : 063 BPM Atrial Rate : 063 BPM P-R Int : 174 ms QRS Dur : 078 ms QT Int : 418 ms P-R-T Axes : 076 086 084 degrees QTc Int : 427 ms Normal sinus rhythm Normal ECG Confirmed by JAN BOGGS, BETHANY ([id number]), writer editor KARIME SCHMITZ ([id number]) on 06/16/2021 11:23:05 AM Referred By: ROSIO Confirmed By:BETHANY MONTOYA MD
[2021-06-21 10:17] VITALS: BP 176/67; PULSE 66; RESP 16; TEMP 36.3; O2SAT 100; BMI 19.5
[2021-06-21] MEDS: Lactated Ringers 1,000 ML 15 ML IV (10:25)
[2021-06-21 10:59] LABS: Anion Gap 5 (5-15); BUN 22 mg/dL (7-18); Calcium,Total 9.7 mg/dL (8.5-10.1); Chloride 107 mmol/L (98-107); EST Glomerular Filtration Rate 57 mL/min (>60); Est Glom Filt Rate - Afr Amer 69 mL/min (>60); Estimated Creatinine Clearance 31.69 ml/min; Glucose 108 mg/dL (74-106); Potassium 4.1 mmol/L (3.5-5.1); Sodium Level 140 mmol/L (136-145)
--- NOTE | 2021-06-21 12:33 | PCM.DC ---
Discharge Instructions Diet Discharge Diet: No restrictions Activity Discharge Activity: Return to Normal Activity Dressing / Incision Call your doctor if your incision/area has: Continuous Slow Oozing and Increased Pain/ Swelling Additional Dressing/Incision Instructions:: saline to left nostril three times daily Follow Up Care Please Follow Up With: Errol Meyers MD When: 1 week Test Results: Test results from this visit will be discussed in further detail at your follow-up appointment, if applicable. Discharge Plan Admission Attending Provider: Errol Meyers Primary Care Provider: Errol Shahid Discharge Orders/Prescriptions Prescriptions: No Action pantoprazole 40 mg tablet,delayed release (DR/EC) 40 mg PO QODAY 90 Days Qty: 90 RF: 0 simvastatin 40 MG tablet 40 mg PO QHS RF: 0 multivitamin 1 EACH tablet 1 tab PO DAILY RF: 0 calcium carbonate-vitamin D3 1 EACH tablet 1 ea PO DAILY RF: 0 docusate sodium [Colace] 100 mg Capsule 100 mg PO DAILY RF: 0 metoprolol tartrate 25 mg tablet 25 mg PO BID Qty: 180 RF: 3 Disposition Discharge Orders: Discharge Patient (Routine); Ordered 06/21/21 Ordered By: Dr. Errol Meyers
--- NOTE | 2021-06-21 12:36 | PCM.OPRPT ---
Problems Associated Problem List Diagnoses (1) Other chronic sinusitis: (2) Polyp of nasal cavity: Report of Operation Date of Procedure: 06/21/21 Pre-Operative Diagnosis: other chronic sinusitis Post-Operative Diagnosis: other chronic sinusitis Surgery/Procedure Performed:: 1. revision total ethmoidectomy, left 2. revision sphenoidotomy, left Surgeon: Errol Meyers Type of Anesthesia: General Description of Procedure: on the day of the procedure, after appropriate informed consent was obtained, the patient was brought to the operating room and placed in supine position on the operating table. she was placed under general endotracheal anesthesia by the anesthesiologist. the endotracheal tube was secured. the CT image guidance navigation was set up and accuracy confirmed. the bilateral nasal cavities were decongested with bilateral oxymetazoline soaked pledgets. the zero degree endoscope was used to evaluate the left nasal cavity. using the navigation, the posterior ethmoid / sphenoid cell was located. the anterior/inferior portion of this cavity was entered with a J curette. mucoid material was suctioned from the cavity and the opening was widened. hemostasis was achieved with suction cautery. she was awoken from anesthesia and transferred to the PACU in stable condition.
[2021-06-21] MEDS: Clindamycin 900 MG/50 ML BAG 75 MG IV (12:48)
[2021-06-21 13:45] VITALS: BP 161/67; BP 176/67; PULSE 85; RESP 18; TEMP 36.5; O2SAT 98
[2021-06-21 14:00] VITALS: BP 147/69; BP 176/67; PULSE 75; RESP 18; O2SAT 97
[2021-06-21 14:09] VITALS: BP 141/69; BP 176/67; PULSE 74; RESP 18; TEMP 36.6; O2SAT 96
[2021-06-21 15:26] VITALS: BP 140/83; BP 176/67; PULSE 70; RESP 16; TEMP 36.6; O2SAT 98
== END 2021-06-21 23:59 | disposition home or self-care (01) ==
LOC: SDC 09:44 → AC 09:44
PROVIDERS: PCP Family Medicine; Referring Provider Otolaryngology; Visit Provider Otolaryngology
PROC: (CPT 31257; principal; 2021-06-21 10:55)
DX: J32.8 Other chronic sinusitis (principal); J33.0 Polyp of nasal cavity; I10 Essential (primary) hypertension; E78.5 Hyperlipidemia, unspecified; I25.10 Atherosclerotic heart disease of native coronary artery without angina pectoris; M19.90 Unspecified osteoarthritis, unspecified site; Z79.899 Other long term (current) drug therapy; K21.9 Gastro-esophageal reflux disease without esophagitis; K44.9 Diaphragmatic hernia without obstruction or gangrene; J32.2 Chronic ethmoidal sinusitis
CPT/HCPCS: 31257; 00160; 80048; 93005; J7120; J2405

== ENCOUNTER → 2021-08-02 | Outpatient (CLI) | payer MEDICARE, OTHER, SELFPAY ==
[2021-08-02 15:34] LABS: Erythrocyte Sedimentation Rate 5 mm/hr (0-30)
[2021-08-02 15:37] LABS: Absolute Lymphocyte Count 2.61 X10^3/uL (0.83-4.51); Absolute Neutrophil Count 5.2 X10^3/uL (2.0-7.7); Basophil# 0.04 X10^3/uL; Basophil% 0.4 % (0-1); Eosinophil# 0.19 X10^3/uL; Eosinophils% 2.1 % (0-5); Hematocrit 40.2 % (37-47); Hemoglobin 12.9 g/dL (12.0-15.0); Lymphocyte # 2.61 X10^3/ul (0.83-4.51); Lymphocyte % 29.3 % (19-41); Mean Corp Hgb Conc 32.1 g/dL (32-36); Mean Corpuscular Volume 96.6 fL (81-99); Mean Platelet Vol. 10.9 fl (6.2-12.0); Monocyte# 0.87 X10^3/uL; Monocyte% 9.8 % (0-10); NRBC Flagged by Analyzer 0 % (0-5); Neutrophil # 5.18 X10^3/uL (2.7-7.7); Neutrophil % 58.1 % (47-70); Platelet Count 276 K/mm3 (150-450); RBC Distribution Width CV 13.3 % (11.6-14.6); RBC Distribution Width SD 47.3 fl (35.1-43.9); Red Blood Count 4.16 M/mm3 (4.2-5.4); White Blood Count 8.9 K/mm3 (4.4-11.0)
[2021-08-02 16:04] LABS: ALB/GLOB Ratio 0.9 RATIO (0.9-2.4); AST(SGOT) 26 U/L (15-37); Alanine Aminotransfer ALT/SGPT 25 U/L (13-56); Albumin, Serum 3.7 g/dL (3.2-5.0); Alkaline Phosphatase 80 U/L (45-117); Anion Gap 5 (5-15); BUN 23 mg/dL (7-18); Calcium,Total 9.6 mg/dL (8.5-10.1); Chloride 108 mmol/L (98-107); Creatinine, Serum 0.88 mg/dL (0.55-1.02); EST Glomerular Filtration Rate 66 mL/min (>60); Est Glom Filt Rate - Afr Amer 79 mL/min (>60); Globulin 3.9 g/dL (2.2-4.2); Glucose 85 mg/dL (74-106); Protein, Total 7.6 g/dL (6.4-8.2); Sodium Level 139 mmol/L (136-145); Thyroid Stim Hormone (TSH) 0.85 uIU/mL (0.358-3.74)
[2021-08-04 17:07] LABS: Endomysial Antibody IgA Negative (Negative); Immunoglobulin A 335 mg/dL (64-422)
[2021-08-04 18:20] LABS: H. Pylori Antibody (IgG) 0.24 (0.00-0.79); t-Transglutaminase IgA <2 U/mL (0-3)
[2021-08-10 09:08] LABS: Beef <0.10 kU/L (Class 0); Corn <0.10 kU/L (Class 0); Egg, Whole <0.10 kU/L (Class 0); Milk (Cow) <0.10 kU/L (Class 0); Peanut <0.10 kU/L (Class 0); Pork <0.10 kU/L (Class 0); Soybean <0.10 kU/L (Class 0); Wheat <0.10 kU/L (Class 0)
[2021-08-10 09:53] LABS: Chocolate <0.10 kU/L (Class 0)
== END | disposition home or self-care (01) ==
LOC: MFPLAB 11:50
PROVIDERS: PCP Family Medicine; Referring Provider Family Medicine; Visit Provider Family Medicine
DX: R19.7 Diarrhea, unspecified (principal); K59.09 Other constipation
CPT/HCPCS: 36415; 74019; 80053; 82784; 83516; 84443; 85025; 85652; 86003; 86005; 86255; 86677

== ENCOUNTER → 2021-08-02 | Outpatient (CLI) | payer MEDICARE, OTHER, SELFPAY ==
--- NOTE | 2021-08-02 11:50 | RAD_ITS ---
EXAM: XR ABDOMEN, 2 VIEWS CLINICAL INDICATION: CONSTIPATION TECHNIQUE: Frontal view of the abdomen/pelvis with upright view of the abdomen. This report was created using [employer] report generation technology. COMPARISON: None. FINDINGS: LOWER THORAX: No acute pathology. INTRAPERITONEAL SPACE: No free air. GASTROINTESTINAL TRACT: Normal bowel gas pattern. ORGANS: Small cluster of calcifications within the right upper quadrant consistent with gallstones. No organomegaly. BONES/JOINTS: Prominent degenerative narrowing of the L4-5 disc space. SOFT TISSUES: No acute pathology. RAD/Abd Inc Decub and/or Erect IMPRESSION: Cholelithiasis. Electronically Signed: Stanford Armenta MD at 9:47 EDT ,
== END | disposition home or self-care (01) ==
LOC: MTRAD 11:44
PROVIDERS: PCP Family Medicine; Referring Provider Family Medicine; Visit Provider Family Medicine
DX: K59.09 Other constipation (principal)
CPT/HCPCS: 74019

== ENCOUNTER → 2021-08-04 | Outpatient (CLI) | payer MEDICARE, OTHER, SELFPAY ==
[2021-08-18 11:10] LABS: H. PYLORI STOOL AG Negative (Negative); Pancreatic Elastase, Fecal 437 (>200)
== END | disposition home or self-care (01) ==
LOC: LABSPEC 10:41
PROVIDERS: PCP Family Medicine; Referring Provider Family Medicine; Visit Provider Family Medicine
DX: R19.7 Diarrhea, unspecified (principal)
CPT/HCPCS: 82653

== ENCOUNTER → 2021-08-15 | Outpatient (CLI) | payer MEDICARE, OTHER, SELFPAY ==
--- NOTE | 2021-08-15 09:50 | US_ITS ---
STUDY: ABDOMINAL ULTRASOUND - RIGHT UPPER QUADRANT REASON FOR VISIT: Female, 81 years old multiple Gall stones TECHNIQUE: Ultrasound evaluation of the right upper quadrant was performed with real-time and static cruz-scale imaging. TECHNICAL QUALITY: Adequate. COMPARISON: Comparison is made with prior study 11/30/2017. FINDINGS: Liver: The liver measures 13.4 cm. There is normal echogenicity of the liver. The bile ducts are within normal limits. There is hepatic color flow. The direction of portal flow is hepatopetal. There is no demonstrated mass lesion. Gallbladder: Normal distended gallbladder. The gallbladder wall measures 1 mm. There is a negative sonographic Pollard''s sign. There is no pericholecystic fluid. There are multiple echogenic structures within the gallbladder, consistent with multiple gallstones. Common Bile Duct (C.B.D.): The common bile duct measures 3 mm. Pancreas: Normal size of the head, body and tail of the pancreas. There is normal echogenicity of the pancreas. There is no demonstrated pancreatic mass or cyst. Right Kidney: Normal size of the right kidney. The right kidney measures 8.3 cm x 4.5 cm x 4 cm. Normal renal cortex. The right cortex measures 1.0 cm. 2 right renal cysts are seen. The largest cyst measures 1.8 cm x 1.8 cm x 1.5 cm There is no right hydronephrosis. US/Abdomen Limited IMPRESSION: Multiple gallstones. Stable right renal cysts. Electronically Signed: Davian Fitch MD at 11:24 EDT ,
== END | disposition home or self-care (01) ==
PROVIDERS: PCP Family Medicine; Visit Provider Family Medicine
DX: K80.20 Calculus of gallbladder without cholecystitis without obstruction (principal)
CPT/HCPCS: 76705

== ENCOUNTER 2021-11-05 13:52 | Emergency (ER) | payer MEDICARE, OTHER, SELFPAY ==
[2021-11-05] VITALS (7 sets, daily range): BP systolic 135–180; BP diastolic 60–91; PULSE 83–130; RESP 20–26; TEMP 36.3; O2SAT 94–97; BMI 29.6
--- NOTE | 2021-11-05 14:02 | RAD_ITS ---
STUDY: X-RAY CHEST REASON FOR EXAM: Female, 81 years old. chest pain TECHNIQUE: Single AP portable view of the chest. COMPARISON: 12/24/2018 FINDINGS: There is hyperinflation of the lungs consistent with chronic obstructive lung disease (COPD). Small left pleural effusion. Normal size heart. Normal mediastinum and meño. Normal visualized pulmonary arteries. Normal visualized aortic arch and descending thoracic aorta. Normal visualized thoracic spine. Normal visualized ribs, clavicles, and shoulders. There is no demonstrated abnormality of the visualized soft tissue structures of the upper abdomen. RAD/Chest 1 View (Portable) IMPRESSION: Emphysema with a small left pleural effusion. Electronically Signed: Kang Fletcher MD at 14:23 EDT ,
--- NOTE | 2021-11-05 14:02 | EKG12_ITS ---
Test Reason : CP Blood Pressure : / mmHG Vent. Rate : 122 BPM Atrial Rate : 286 BPM P-R Int : 000 ms QRS Dur : 074 ms QT Int : 306 ms P-R-T Axes : 000 066 -36 degrees QTc Int : 436 ms Atrial flutter with variable A-V block ST & T wave abnormality, consider inferolateral ischemia Abnormal ECG Confirmed by JAN BOGGS, BETHANY ([id number]), writer editor MARY KAY SPARROW ([id number]) on 11/08/2021 7:50:31 AM Referred By: OKSANA Confirmed By:BETHANY MONTOYA MD
[2021-11-05 14:10] LABS: Absolute Lymphocyte Count 2.98 X10^3/uL (0.83-4.51); Absolute Neutrophil Count 10.7 X10^3/uL (2.0-7.7); Basophil# 0.04 X10^3/uL; Basophil% 0.3 % (0-1); Eosinophil# 0.15 X10^3/uL; Hematocrit 37.7 % (37-47); Hemoglobin 12.4 g/dL (12.0-15.0); Lymphocyte # 2.98 X10^3/ul (0.83-4.51); Lymphocyte % 19.4 % (19-41); Mean Corp Hgb Conc 32.9 g/dL (32-36); Mean Corpuscular Hgb 30.7 pg (27.0-32.0); Mean Corpuscular Volume 93.3 fL (81-99); Mean Platelet Vol. 9.9 fl (6.2-12.0); Monocyte# 1.38 X10^3/uL; NRBC Flagged by Analyzer 0 % (0-5); Neutrophil # 10.74 X10^3/uL (2.7-7.7); Neutrophil % 69.9 % (47-70); Platelet Count 260 K/mm3 (150-450); RBC Distribution Width CV 12.8 % (11.6-14.6); RBC Distribution Width SD 43.8 fl (35.1-43.9); Red Blood Count 4.04 M/mm3 (4.2-5.4); White Blood Count 15.4 K/mm3 (4.4-11.0)
[2021-11-05 14:33] LABS: Anion Gap 8 (5-15); BUN 17 mg/dL (7-18); BUN/Creat Ratio 18.1 RATIO (10-20); Calcium,Total 9.1 mg/dL (8.5-10.1); Chloride 107 mmol/L (98-107); Creatinine, Serum 0.94 mg/dL (0.55-1.02); EST Glomerular Filtration Rate 61 mL/min (>60); Est Glom Filt Rate - Afr Amer 74 mL/min (>60); Estimated Creatinine Clearance 35.16 ml/min; Glucose 187 mg/dL (74-106); Potassium 3.6 mmol/L (3.5-5.1); Sodium Level 138 mmol/L (136-145); Troponin-I HS 7 pg/mL (3.0-54.0)
--- NOTE | 2021-11-05 15:30 | ED.VIS.CHEST ---
HPI History of Present Illness Chief Complaint: Chest Pain Narrative Narrative: 11-year-old female presenting with chest pain. She states that it is on the left side of her chest and the left arm and the left side of her jaw. She denies any trauma. She has had this since . She states that she also developed a fever with a T-max of 102.3. She is been taking Tylenol for this. This is not necessarily helping her pain. She has not tried ibuprofen. She is states she does not have a significant cough but when she tries to cough it hurts in the left side of her chest where she had previous described. She has not had nausea or vomiting. She denies abdominal pain. He does state that she had some urinary frequency and urgency on but she does not have this anymore. She states she is a distant history of UTI. Patient does have a history of hypertension, hyperlipidemia and CAD. She had a heart cath done and 2018. She states this was normal. Patient also states he has had a lot of stress recently with the loss of her in September. [facility] Medical History Anxiety Arthritis Atherosclerosis of coronary artery of [place] heart without angina pectoris Cardiology follow-up encounter Gastric reflux GERD (gastroesophageal reflux disease) Hiatal hernia History of echocardiogram History of hiatal hernia History of renal disease History of stress test Hyperlipidemia Hypertension IBS (irritable bowel syndrome) Kidney stones Leg cramps Migraine headache Non-smoker Osteoporosis Wears glasses Wears hearing aid Home Medications simvastatin 40 mg tablet 40 mg PO QHS Cholesterol 06/14/14 [History Last Taken 04/14/17] calcium carbonate 600 mg-vitamin D3 20 mcg (800 unit) tablet 1 ea PO DAILY Vitamin supplement 04/15/17 [History Last Taken 04/14/17] multivitamin 1 tab PO DAILY Vitamin 04/15/17 [History Last Taken 04/14/17] metoprolol tartrate 25 mg tablet 25 mg PO BID #180 tabs 07/24/17 [Rx Last Taken 06/21/21] pantoprazole 40 mg tablet,delayed release 40 mg PO QODAY 90 days ##90 11/28/17 [History Last Taken Unknown] docusate sodium 100 mg capsule (Colace) 100 mg PO DAILY 06/14/21 [History Last Taken Unknown] apixaban 5 mg tablet (Eliquis) 5 mg PO BID #74 tabs 11/05/21 [Rx Last Taken Unknown] azithromycin 250 mg tablet 250 mg PO DAILY #4 tabs 11/05/21 [Rx Last Taken Unknown] metoprolol tartrate 50 mg tablet 50 mg PO BID #30 tabs 11/05/21 [Rx Last Taken Unknown] Allergy/AdvReac Type Severity Reaction Status Date / Time ranolazine [From Ranexa] AdvReac Severe low urine Verified 11/05/21 13:58 output, rash oseltamivir [From Tamiflu] AdvReac Unknown Verified 11/05/21 13:58 Family History Father CAD (coronary artery disease) CVA (cerebral vascular accident) Hypertension Mother Hypertension Brother Hypertension Sister Diabetes Other Heart disease Surgical History H/O sinus surgery History of cardiac catheterization History of cataract surgery History of left heart catheterization (~04/16/17) History of tonsillectomy Social History Smoking Status: Never smoker ROS ROS ED Constitutional Constitutional ED: Reports chills and fever(s) Eyes Eyes: Denies blurry vision or change in vision ENT ENT ED: Denies rhinorrhea or sore throat Cardiovascular Cardiovascular: Reports as per HPI Respiratory/Chest Respiratory/Chest: Reports dyspnea Gastrointestinal Gastrointestinal: Denies abdominal pain or constipation Genitourinary Genitourinary ED: Denies dysuria or hematuria Musculoskeletal Musculoskeletal: Denies arthralgias Integumentary Denies abscess Neurologic Neurologic: Denies headache(s) or paresthesias Psychiatric Psychiatric: Denies anxiety or depression EXAM Physical Exam Const Vital Signs: 11/05/21 13:55 11/05/21 14:12 11/05/21 15:00 Temperature 97.4 F L 97.4 F L Temperature Source Temporal Temporal Pulse Rate 130 H 130 H 117 H Respiratory Rate 26 H 26 H 20 H Blood Pressure 151/74 H 151/74 H 137/81 H Blood Pressure Mean 99 99 99 Pulse Ox 94 94 Oxygen Delivery Method Room Air Room Air 11/05/21 15:40 11/05/21 16:26 11/05/21 17:25 Temperature Temperature Source Pulse Rate 83 83 92 Respiratory Rate 20 H Blood Pressure 139/61 H 135/60 H 180/89 H Blood Pressure Mean 87 85 119 Pulse Ox 97 Oxygen Delivery Method Room Air 11/05/21 17:48 Temperature Temperature Source Pulse Rate 86 Respiratory Rate 20 H Blood Pressure 160/91 H Blood Pressure Mean Pulse Ox Oxygen Delivery Method Positive well nourished General Appearance ED: NAD; Negative for pallor HEENT Reports TM's clear and moist mucous membranes normocephalic Tympanic Membrane ED: Yes TM's clear Eyes PERRL Chest Wall inspection of chest normal and palpation of chest normal Resp normal respiratory effort Cardio regular rate and regular rhythm Extremity General Extremety ED: Yes pulses abnormal; Negative for edema General Extremity: pulses abnormal; Negative for edema Neuro oriented x3 and CN's II-XII intact bilaterally Sensorium / Orientation: awake and alert Skin no rashes or lesions noted General Skin Exam: Negative for jaundice or pallor MDM MDM MDM Narrative Medical decision making narrative: Presenting with chest pain which have been going on for couple of days but she is also complaining of fever and body aches and generalized malaise. She does have a slight cough. She is not hypoxic. She has been afebrile here. Her heart rate was initially 130 and I obtained an EKG which showed atrial flutter with a variable AV block at a rate of 122 bpm on my interpretation. Her chest x-ray looks to be a small left lower lobe infiltrate on my interpretation which would be consistent with her area of pain in her left chest. She has a leukocytosis of 15.4. Hemoglobin hematocrit are stable. Renal function electrolytes are normal. High-sensitivity troponin is 2:07 days of pain so I do not believe she needs a delta troponin. Patient is tested herself for COVID twice in the last 24 hours and these are both negative. BNP slightly elevated and the radiologist did read the chest x-ray small pleural effusion. Since the patient does have atrial flutter but is now in sinus rhythm in the 80s that is possible her heart rate could have been going fast but it still looks like infiltrate on x-ray. She did complain of urinary symptoms earlier this week and her urinalysis negative for infection. Patient is on metoprolol 25 mg p.o. twice daily at home. I spoke with Dr. Reyes from cardiology about the patient as she has been seen by Dr. Tamra Glass in the past. She had negative catheterization in 2018. Since he is in sinus rhythm we determined that we would increase her metoprolol to 50 mg p.o. daily, start her on Eliquis from a cardiology standpoint. Will need to call the office for follow-up appointment and likely repeat cardiac eval. As far as her white blood cell count and left-sided chest pain I will treat her with azithromycin with the first dose in the ER. All questions were answered and this was explained to her family. Return precautions were discussed. Impression: 1. Atrial flutter 2. Left lower lobe pneumonia 3. Leukocytosis 4. Chest pain Lab Data Labs: Laboratory Results - last 24 hr 11/05/21 11/05/21 11/05/21 14:00 14:00 14:00 WBC 15.4 H RBC 4.04 L Hgb 12.4 Hct 37.7 MCV 93.3 MCH 30.7 MCHC 32.9 RDW Std Deviation 43.8 RDW Coeff of Leif 12.8 Plt Count 260 MPV 9.9 Immature Gran % (Auto) 0.400 Neut % (Auto) 69.9 Lymph % (Auto) 19.4 [place] % (Auto) 9.0 Eos % (Auto) 1.0 Baso % (Auto) 0.3 Absolute Neuts (auto) 10.7 H Absolute Lymphs (auto) 2.98 Nucleated RBC % 0 Sodium 138 Potassium 3.6 Chloride 107 Carbon Dioxide 23.0 Anion Gap 8 BUN 17 Creatinine 0.94 Estim Creat Clear Calc 35.16 Est GFR (MDRD) Af Amer 74 Est GFR (MDRD) Non-Af 61 BUN/Creatinine Ratio 18.1 Glucose 187 H Calcium 9.1 Troponin I High Sens 7 B-Natriuretic Peptide 282.2 H Urine Color Urine Clarity Urine pH Ur Specific [place] Urine Protein Urine Glucose (UA) Urine Ketones Urine Occult Blood Urine Nitrite Urine Bilirubin Urine Urobilinogen Ur Leukocyte Esterase Urine RBC Urine WBC Ur Squamous Epith Cells Urine Bacteria Urine Mucus 11/05/21 16:20 WBC RBC Hgb Hct MCV MCH MCHC RDW Std Deviation RDW Coeff of Leif Plt Count MPV Immature Gran % (Auto) Neut % (Auto) Lymph % (Auto) [place] % (Auto) Eos % (Auto) Baso % (Auto) Absolute Neuts (auto) Absolute Lymphs (auto) Nucleated RBC % Sodium Potassium Chloride Carbon Dioxide Anion Gap BUN Creatinine Estim Creat Clear Calc Est GFR (MDRD) Af Amer Est GFR (MDRD) Non-Af BUN/Creatinine Ratio Glucose Calcium Troponin I High Sens B-Natriuretic Peptide Urine Color Straw Urine Clarity Clear Urine pH 7.0 Ur Specific [place] 1.010 Urine Protein Negative Urine Glucose (UA) Normal Urine Ketones Negative Urine Occult Blood 150 H Urine Nitrite Negative Urine Bilirubin Negative Urine Urobilinogen Normal Ur Leukocyte Esterase Negative Urine RBC 5-10 SEEN Urine WBC 0 SEEN Ur Squamous Epith Cells 0 SEEN Urine Bacteria RARE Urine Mucus 0 SEEN Radiography Diagnostic Testing: Clinical Impression(s) from Imaging Studies Chest X-Ray 11/05/21 14:02 IMPRESSION: Emphysema with a small left pleural effusion. Electronically Signed: Kang Fletcher MD at 14:23 EDT Reading Location ID and State: [facility] / [place] Tel , Service support , Discharge Plan Triage Chief Complaint: Chest Pain ED Provider: Jann Priest Dx/Rx/DC Orders Instructions: AFib Preventing Stroke, ED Atrial Flutter, ED Pneumonia (Adult) Prescriptions: New metoprolol tartrate 50 mg tablet 50 mg PO BID Qty: 30 0RF Eliquis 5 mg tablet 5 mg PO BID Qty: 74 0RF Rx Instructions: 10 mg twice a day for the first week. Then 5 mg twice a day. azithromycin 250 mg tablet 250 mg PO DAILY Qty: 4 0RF No Action pantoprazole 40 mg tablet,delayed release (DR/EC) 40 mg PO QODAY 90 Days Qty: 90 Label Comments: simvastatin 40 MG tablet 40 mg PO QHS Label Comments: multivitamin 1 EACH tablet 1 tab PO DAILY calcium carbonate-vitamin D3 1 EACH tablet 1 ea PO DAILY docusate sodium [Colace] 100 mg Capsule 100 mg PO DAILY metoprolol tartrate 25 mg tablet 25 mg PO BID Qty: 180 3RF Primary Care Provider: Errol Shahid Referrals: Errol Shahid MD [Primary Care Provider] - Disposition Disposition: Home, Self Care Discharge Date/Time: 11/05/21 18:07
[2021-11-05 16:03] LABS: BNP,B-Type NATRIURETIC PEPTIDE 282.2 pg/mL (0-100)
[2021-11-05 16:27] LABS: Mucous, Urine 0 SEEN /hpf (<or=2+); Squamous Epithelial Cells - UA 0 SEEN /hpf (5-10); White Blood Cells 0 SEEN /hpf (0-5)
[2021-11-05 16:35] LABS: Color, Urine Straw (Yellow); Glucose, Dipstick Normal (Normal); Ketone-Dipstick Negative (Negative); Leukocyte Esterase-Dipstick Negative /ul (Negative); Nitrite-Dipstick Negative (Negative); Occult Blood-Urine 150 /ul (Negative); Protein-Dipstick Negative (Negative); Urine Bilirubin Dipstick Negative (Negative); Urine Clarity Clear (Clear); Urine Urobilinogen Normal (Normal)
[2021-11-05 16:49] LABS: Bacteria RARE /hpf (None Seen); Red Blood Cells-Urine 5-10 SEEN /hpf (0-5)
[2021-11-05] MEDS: Azithromycin 250 MG Tablet 500 MG PO (17:45)
[2021-11-05] MEDS: APIXABAN 5 MG TABLET 10 MG PO (17:46)
== END 2021-11-05 18:07 | disposition home or self-care (01) ==
PROVIDERS: Emergency Provider Student in an Organized Health Care Education/Training Program; PCP Family Medicine; Visit Provider Student in an Organized Health Care Education/Training Program
DX: R07.9 Chest pain, unspecified (principal); I48.92 Unspecified atrial flutter; J18.9 Pneumonia, unspecified organism; D72.829 Elevated white blood cell count, unspecified; I25.10 Atherosclerotic heart disease of native coronary artery without angina pectoris; I10 Essential (primary) hypertension; R53.81 Other malaise; E78.5 Hyperlipidemia, unspecified; M19.90 Unspecified osteoarthritis, unspecified site; R06.00 Dyspnea, unspecified; Z95.818 Presence of other cardiac implants and grafts; Z79.899 Other long term (current) drug therapy
CPT/HCPCS: 71045; 80048; 81001; 83880; 84484; 85025; 93005; 96360; 96361; 99284; J7040; A4216

== ENCOUNTER 2021-11-07 05:18 | Emergency (ER) | payer MEDICARE, OTHER, SELFPAY ==
[2021-11-07 05:20] VITALS: BP 180/84; PULSE 68; RESP 18; TEMP 36.9; O2SAT 96; BMI 19.5
--- NOTE | 2021-11-07 05:51 | CT_ITS ---
STUDY: CTA CHEST REASON FOR EXAM: Female, 81 years old. dyspnea, hemoptysis RADIATION DOSAGE (If Supplied By Facility): CTDIvol = ( 4.90 ) mGy, DLP = ( 128.15 ) mGycm TECHNIQUE: The examination was performed with the intravenous administration of 75 mL Isovue-370. Post-processing of the angiographic images was performed, with multiplanar reformation and maximum intensity projections.. Individualized dose optimization techniques were used for this CT. COMPARISON: October 06, 2020. Chest x-ray November 05, 2021. FINDINGS: Normal enhancement of the main pulmonary artery and right and left pulmonary arteries. Normal enhancement of the bilateral peripheral pulmonary arteries. There is no demonstrated pulmonary embolism. There is scattered atherosclerotic calcification of the thoracic aorta . There is no demonstrated aortic dissection. Borderline cardiomegaly. There are coronary artery calcifications. No pericardial effusion. Normal mediastinum. Normal hilar regions. Large hiatal hernia, not significantly changed, primarily right parasagittal. Normal visualized trachea and bronchi. Small left pleural effusion. Focal consolidation anterior aspect of the left lower lobe and posterior aspect of the lingular segment. No pneumothorax. Normal chest wall structures. Normal osseous structures. Normal visualized upper abdomen. CT/CTA Chest W/WO Contrast IMPRESSION: No pulmonary embolus or thoracic aortic dissection. Large hiatal hernia. Small left pleural effusion. Left lower lobe and lingular segment consolidation suggestive of pneumonia. Electronically Signed: Aly Arango MD at 7:24 EDT Reading Location ID and State: [id number] / , Service support ,
--- NOTE | 2021-11-07 05:52 | EKG12_ITS ---
Test Reason : CP Blood Pressure : / mmHG Vent. Rate : 068 BPM Atrial Rate : 068 BPM P-R Int : 180 ms QRS Dur : 084 ms QT Int : 420 ms P-R-T Axes : 069 073 063 degrees QTc Int : 446 ms Normal sinus rhythm Normal ECG Confirmed by JAN BOGGS, BETHANY ([id number]), editor producer MARY KAY SPARROW ([id number]) on 11/08/2021 7:37:31 AM Referred By: TRINA Confirmed By:BETHANY MONTOYA MD
--- NOTE | 2021-11-07 06:01 | ED.VIS.DYS ---
HPI History of Present Illness Chief Complaint: Cough Informant: patient Onset/Context/Timing Onset: Today Context: gradual and onset Timing: Intermittent Quality: Positive for Dyspnea on exertion and - (Hemoptysis) Current Severity: Mild Maximum Severity: Mild Worsened by: Exertion and Coughing Relieved by: Rest Associated Symptoms cough Chest Pain: Positive for - (Left rib cage pain, no angina) Narrative Narrative: Patient was seen here couple days ago, she was having some dyspnea with exertion, left-sided ribcage pain that hurts more to move that is much better today but still present, and she was diagnosed with possible left lower lobe infiltrate that was read by radiology as a small pleural effusion only, and she was found to be in paroxysmal atrial fibrillation. She was discharged on a Z-Alo and Eliquis which she has been taking. She did not start coughing until last night, and then this morning she started coughing up relatively small amounts of blood. Initially was blood-streaked phlegm, and then she just spat out some blood but not a great quantity. She has had dyspnea with exertion for several days, she denies any difference there, no dyspnea at rest. No angina, the left-sided rib cage and neck/trapezius pain is much better than it was but it still is sore to move around. She is doing a better. No fevers or chills. She has had several negative COVID tests. She has never had this happen before, she does not have a history of lung cancer that she knows of, she has felt palpitations/irregular heartbeat off and on for the last couple days including yesterday but nothing at this time. [facility] Medical History Anxiety Arthritis Atherosclerosis of coronary artery of [place] heart without angina pectoris Cardiology follow-up encounter Gastric reflux GERD (gastroesophageal reflux disease) Hiatal hernia History of echocardiogram History of hiatal hernia History of renal disease History of stress test Hyperlipidemia Hypertension IBS (irritable bowel syndrome) Kidney stones Leg cramps Migraine headache Non-smoker Osteoporosis Wears glasses Wears hearing aid Home Medications simvastatin 40 mg tablet 40 mg PO QHS Cholesterol 06/14/14 [History Last Taken 04/14/17] calcium carbonate 600 mg-vitamin D3 20 mcg (800 unit) tablet 1 ea PO DAILY Vitamin supplement 04/15/17 [History Last Taken 04/14/17] multivitamin 1 tab PO DAILY Vitamin 04/15/17 [History Last Taken 04/14/17] pantoprazole 40 mg tablet,delayed release (Protonix) 40 mg PO QODAY 90 days ##90 11/28/17 [History Last Taken Unknown] docusate sodium 100 mg capsule (Colace) 100 mg PO DAILY 06/14/21 [History Last Taken Unknown] metoprolol tartrate 50 mg tablet 50 mg PO BID #30 tabs 11/05/21 [Rx Last Taken Unknown] levofloxacin 750 mg tablet 750 mg PO DAILY #5 tabs 11/07/21 [Rx Last Taken Unknown] Allergy/AdvReac Type Severity Reaction Status Date / Time ranolazine [From Ranexa] AdvReac Severe low urine Verified 11/05/21 13:58 output, rash oseltamivir [From Tamiflu] AdvReac Unknown Verified 11/05/21 13:58 Family History Father CAD (coronary artery disease) CVA (cerebral vascular accident) Hypertension Mother Hypertension Brother Hypertension Sister Diabetes Other Heart disease Surgical History H/O sinus surgery History of cardiac catheterization History of cataract surgery History of left heart catheterization (~04/16/17) History of tonsillectomy Social History Smoking Status: Never smoker ROS ROS ED Constitutional Constitutional ED: Denies chills or fever(s) Eyes Eyes: Denies change in vision or diplopia ENT ENT ED: Denies rhinorrhea or sore throat Cardiovascular Cardiovascular: Reports as per HPI, chest pain and palpitations Respiratory/Chest Respiratory/Chest: Reports as per HPI, cough, dyspnea on exertion and hemoptysis Gastrointestinal Gastrointestinal: Denies abdominal pain, diarrhea, nausea or vomiting Genitourinary Genitourinary ED: Denies dysuria or hematuria Musculoskeletal Musculoskeletal: Reports other Details: Left trapezius/neck pain ; Denies back pain Integumentary Denies abscess or rash Neurologic Neurologic: Denies headache(s), paresthesias or weakness Psychiatric Psychiatric: Denies anxiety or suicidal thoughts EXAM Physical Exam Const Vital Signs: 11/07/21 05:20 11/07/21 05:28 11/07/21 07:34 Temperature 98.4 F Temperature Source Oral Pulse Rate 68 74 Respiratory Rate 18 17 Respiratory Effort Normal Non-Labored Blood Pressure 180/84 H 129/74 H Blood Pressure Mean 116 92 Pulse Ox 96 97 Oxygen Delivery Method Room Air Room Air Positive well nourished and well developed General Appearance ED: well developed and NAD HEENT Reports moist mucous membranes normocephalic and atraumatic Eyes PERRL and EOMs intact bilaterally Neck full ROM, no lymphadenopathy, supple, no meningeal signs and no JVD Resp normal respiratory effort and clear to auscultation bilaterally Cardio regular rate, regular rhythm and no murmurs Rate: Negative for bradycardia or tachycardic GI non-tender and non-distended Auscultation: normoactive bowel sounds Palpation: soft Back/Spine no CVA tenderness General Back: other FROM Extremity normal to inspection General Extremety ED: Negative for edema, pulses abnormal or tenderness General Extremity: Negative for edema or pulses abnormal Neuro oriented x3, CN's II-XII intact bilaterally and no sensory deficits noted Sensorium / Orientation: awake and alert Motor Exam: strength 5/5 throughout Psych mental status grossly normal Skin no rashes or lesions noted and no wounds MDM MDM MDM Narrative Medical decision making narrative: Patient remained stable in emergency department, clinically and hemodynamically. No more episodes of hemoptysis during my evaluation. She was able to walk to and from a nearby restroom without difficulty or hypoxemia. She last took her Eliquis around 12 hours ago, last night prior to going to bed. She had a leukocytosis 2 days ago, that is resolved now. Her cardiac work-up is unremarkable, she is in sinus rhythm at the time of the EKG and during our evaluation on the monitor. CT angiography of the chest was performed in order to evaluate for potential causes of hemoptysis. This does show left lower lobe consolidation/pneumonia in addition to a small parapneumonic effusion. She had a 5.8 mm noncalcified nodule in the left lower lobe close to the diaphragm that was seen 10/06/2020 that was stable in comparison to a prior scan, that was not noted here but it is probably obscured by these acute findings. There are no pulmonary emboli or dissection, and there is no other explanation for her hemoptysis, so I suspect it is related to the pneumonia and the fact that she is anticoagulated. We ambulated her, although she became a little dyspneic as she has been for the last several days, she did not become hypoxic on room air, no lower than 94%. I discussed with pulmonology Dr. Toro. He agrees with the following: Discharging the patient with close pulmonary and cardiology outpatient follow-up, discontinuing the anticoagulation apixaban, replacing her Z-Alo with a different antibiotic, he recommends Levaquin or doxycycline. I did discuss the risk of stroke with atrial fibrillation. At this time, it is my medical opinion that the risk of continuing the anticoagulant given her hemoptysis outweighs the potential benefit and the risk of stroke. Dr. Toro is in agreement. Discussed at length with patient and family regarding what to do when she feels palpitations including checking her heart rate and blood pressure if available, reasons to return to the ER, follow-up, and they are comfortable with that plan. Lab Data Attestation: I reviewed the patient's lab results. Labs: Laboratory Results - last 24 hr 11/07/21 11/07/21 05:25 05:25 WBC 8.0 RBC 3.88 L Hgb 11.8 L Hct 36.3 L MCV 93.6 MCH 30.4 MCHC 32.5 RDW Std Deviation 44.9 H RDW Coeff of Leif 13.1 Plt Count 282 MPV 10.0 Immature Gran % (Auto) 0.200 Neut % (Auto) 55.6 Lymph % (Auto) 30.7 [place] % (Auto) 10.6 H Eos % (Auto) 2.7 Baso % (Auto) 0.2 Absolute Neuts (auto) 4.4 Absolute Lymphs (auto) 2.46 Nucleated RBC % 0 Sodium 143 Potassium 3.7 Chloride 110 H Carbon Dioxide 27.0 Anion Gap 6 BUN 20 H Creatinine 0.86 Estim Creat Clear Calc 38.02 Est GFR (MDRD) Af Amer 82 Est GFR (MDRD) Non-Af 67 BUN/Creatinine Ratio 23.2 H Glucose 92 Calcium 8.5 Troponin I High Sens 6 Radiography Diagnostic Testing: Clinical Impression(s) from Imaging Studies Chest CTA 11/07/21 05:51 IMPRESSION: No pulmonary embolus or thoracic aortic dissection. Large hiatal hernia. Small left pleural effusion. Left lower lobe and lingular segment consolidation suggestive of pneumonia. Electronically Signed: Aly Arango MD at 7:24 EDT Reading Location ID and State: [id number] / , Service support , Rhythm Strip Rhythm Strip: Sinus Rhythm Rate: 65 Ectopy: None EKG Initial EKG: Attestation: I personally reviewed and interpreted this EKG as follows: Interpretation: Sinus Rhythm and No Acute Injury Pattern Comments: Normal EKG sinus rhythm Discharge Plan Triage Chief Complaint: Cough ED Provider: Dean Kim Dx/Rx/DC Orders Clinical Impression: Cough with hemoptysis, Anticoagulated, Pneumonia, Parapneumonic effusion, PAF (paroxysmal atrial fibrillation) Instructions: AFib, ED Hemoptysis, ED Pneumonia (Adult) Prescriptions: New levofloxacin 750 mg tablet 750 mg PO DAILY Qty: 5 0RF Discontinued Eliquis 5 mg tablet 5 mg PO BID Qty: 74 0RF Rx Instructions: 10 mg twice a day for the first week. Then 5 mg twice a day. azithromycin 250 mg tablet 250 mg PO DAILY Qty: 4 0RF metoprolol tartrate 25 mg tablet 25 mg PO BID Qty: 180 3RF No Action pantoprazole [Protonix] 40 mg tablet,delayed release (DR/EC) 40 mg PO QODAY 90 Days Qty: 90 Label Comments: simvastatin 40 MG tablet 40 mg PO QHS Label Comments: multivitamin 1 EACH tablet 1 tab PO DAILY calcium carbonate-vitamin D3 1 EACH tablet 1 ea PO DAILY docusate sodium [Colace] 100 mg Capsule 100 mg PO DAILY metoprolol tartrate 50 mg tablet 50 mg PO BID Qty: 30 0RF Primary Care Provider: Errol Shahid Referrals: Franco Toro MD [Med Staff - Active Staff] - As soon as possible (Call the office to get appointment this week) Errol Shahid MD [Primary Care Provider] - Mahamed Blackwell MD [Med Staff - Active Staff] - 3-5 Days (If it is available this week; call for appointment) Disposition Disposition: Home, Self Care
[2021-11-07 06:05] LABS: Absolute Lymphocyte Count 2.46 X10^3/uL (0.83-4.51); Absolute Neutrophil Count 4.4 X10^3/uL (2.0-7.7); Basophil# 0.02 X10^3/uL; Basophil% 0.2 % (0-1); Eosinophil# 0.22 X10^3/uL; Eosinophils% 2.7 % (0-5); Hematocrit 36.3 % (37-47); Hemoglobin 11.8 g/dL (12.0-15.0); Lymphocyte # 2.46 X10^3/ul (0.83-4.51); Lymphocyte % 30.7 % (19-41); Mean Corp Hgb Conc 32.5 g/dL (32-36); Mean Corpuscular Hgb 30.4 pg (27.0-32.0); Mean Corpuscular Volume 93.6 fL (81-99); Monocyte# 0.85 X10^3/uL; Monocyte% 10.6 % (0-10); NRBC Flagged by Analyzer 0 % (0-5); Neutrophil # 4.44 X10^3/uL (2.7-7.7); Neutrophil % 55.6 % (47-70); Platelet Count 282 K/mm3 (150-450); RBC Distribution Width CV 13.1 % (11.6-14.6); RBC Distribution Width SD 44.9 fl (35.1-43.9); Red Blood Count 3.88 M/mm3 (4.2-5.4)
[2021-11-07 06:25] LABS: Anion Gap 6 (5-15); BUN 20 mg/dL (7-18); BUN/Creat Ratio 23.2 RATIO (10-20); Calcium,Total 8.5 mg/dL (8.5-10.1); Chloride 110 mmol/L (98-107); Creatinine, Serum 0.86 mg/dL (0.55-1.02); EST Glomerular Filtration Rate 67 mL/min (>60); Est Glom Filt Rate - Afr Amer 82 mL/min (>60); Estimated Creatinine Clearance 38.02 ml/min; Glucose 92 mg/dL (74-106); Potassium 3.7 mmol/L (3.5-5.1); Sodium Level 143 mmol/L (136-145); Troponin-I HS 6 pg/mL (3.0-54.0)
[2021-11-07 07:34] VITALS: BP 129/74; PULSE 74; RESP 17; O2SAT 97
[2021-11-07 08:03] VITALS: O2SAT 98
[2021-11-07 08:21] VITALS: BP 129/74; PULSE 73; RESP 16; O2SAT 100
== END 2021-11-07 08:22 | disposition home or self-care (01) ==
PROVIDERS: Emergency Provider Emergency Medicine; PCP Family Medicine; Visit Provider Emergency Medicine
DX: J18.9 Pneumonia, unspecified organism (principal); I48.0 Paroxysmal atrial fibrillation; R04.2 Hemoptysis; I25.10 Atherosclerotic heart disease of native coronary artery without angina pectoris; I10 Essential (primary) hypertension; E78.5 Hyperlipidemia, unspecified; M19.90 Unspecified osteoarthritis, unspecified site; Z79.01 Long term (current) use of anticoagulants; Z79.899 Other long term (current) drug therapy
CPT/HCPCS: 71275; 80048; 84484; 85025; 93005; 96360; 99283; J7040; Q9967; A4216

== ENCOUNTER 2021-11-12 11:14 | Emergency (ER) | payer MEDICARE, OTHER, SELFPAY ==
[2021-11-12 11:16] VITALS: BP 142/60; PULSE 61; RESP 17; TEMP 36.4; O2SAT 100; BMI 19.5
[2021-11-12 11:32] VITALS: BP 138/74; BP 160/64; BP 164/66; PULSE 60; PULSE 64; PULSE 65
--- NOTE | 2021-11-12 11:32 | EKG12_ITS ---
Test Reason : WEAKNESS Blood Pressure : / mmHG Vent. Rate : 061 BPM Atrial Rate : 061 BPM P-R Int : 210 ms QRS Dur : 082 ms QT Int : 414 ms P-R-T Axes : 076 079 083 degrees QTc Int : 416 ms Sinus rhythm with 1st degree A-V block Otherwise normal ECG Confirmed by YANG BOGGS, JAMES ([id number]), editor news MARY KAY SPARROW ([id number]) on 11/15/2021 9:08:54 AM Referred By: Confirmed By:SUZY SORIA MD
--- NOTE | 2021-11-12 11:34 | EDS_ITS ---
HPI History of Present Illness Chief Complaint: GI Bleed Detail of Chief Complaint: Black stool Informant: patient and family Onset/Context/Timing Onset: Today Context: Sudden Onset Quality: Black stool Location: GI Current Severity: Unable to determine Maximum Severity: Unable to determine Worsened by: Possibly anticoagulant Relieved by: Nothing Associated Symptoms Associated Symptoms: Dyspnea and orthostatic symptoms Narrative Narrative: Patient is a 81-year-old woman recently admitted for paroxysmal atrial fibrillation placed on anticoagulant felt to be due to pneumonia/sepsis. She also had a parapneumonic effusion. Her last dose of anticoagulant was Sunday. This was discontinued because she had hemoptysis. She now presents because of black stool. She denies history of peptic ulcer disease, gastritis, hiatal hernia or reflux. She denies hematemesis. She does endorse orthostatic symptoms. She also complains of dyspnea with activity. She does have a history of hemorrhoids. This is a chronic issue. She states the stool was black and not bloody. Patient was also concerned because her blood pressure at home was high. She has an appointment with her doctor this coming week. She denies leg pain, swelling discoloration. Prior similar symptoms: No Recent Illness/Hospitalization: Yes [facility] Medical History Acute coronary syndrome Anxiety Arthritis Atherosclerosis of coronary artery of [place] heart without angina pectoris Cardiology follow-up encounter Essential hypertension GERD (gastroesophageal reflux disease) Hiatal hernia History of hiatal hernia History of renal disease History of stress test Hyperlipidemia IBS (irritable bowel syndrome) Kidney stones Leg cramps Migraine headache Non-smoker Osteoporosis Other chronic sinusitis Polyp of nasal cavity Wears glasses Wears hearing aid Home Medications simvastatin 40 mg tablet 40 mg PO QHS Cholesterol 06/14/14 [History Last Taken 04/14/17] calcium carbonate 600 mg-vitamin D3 20 mcg (800 unit) tablet 1 ea PO DAILY Vitamin supplement 04/15/17 [History Last Taken 04/14/17] multivitamin 1 tab PO DAILY Vitamin 04/15/17 [History Last Taken 04/14/17] pantoprazole 40 mg tablet,delayed release (Protonix) 40 mg PO QODAY 90 days ##90 11/28/17 [History Last Taken Unknown] docusate sodium 100 mg capsule (Colace) 100 mg PO DAILY 06/14/21 [History Last Taken Unknown] metoprolol tartrate 50 mg tablet 50 mg PO BID #30 tabs 11/05/21 [Rx Last Taken Unknown] levofloxacin 750 mg tablet 750 mg PO DAILY #5 tabs 11/07/21 [Rx Last Taken Unknown] Allergy/AdvReac Type Severity Reaction Status Date / Time ranolazine [From Ranexa] AdvReac Severe low urine Verified 11/12/21 11:15 output, rash oseltamivir [From Tamiflu] AdvReac Unknown Verified 11/12/21 11:15 Family History Father CAD (coronary artery disease) CVA (cerebral vascular accident) Hypertension Mother Hypertension Brother Hypertension Sister Diabetes Other Heart disease Surgical History H/O sinus surgery History of cataract surgery History of left heart catheterization (~04/16/17) History of tonsillectomy Social History (Updated 11/12/21 @ 11:[address] Zach Lackey MD) household members: none Smoking Status: Never smoker substance use type: does not use ROS ROS ED Constitutional Constitutional ED: Denies chills, fever(s), subjective, sweats or weight loss Eyes Eyes: Denies blurry vision, change in vision or diplopia ENT ENT ED: Denies ear pain, rhinorrhea or sore throat Cardiovascular Cardiovascular: Denies chest pain, orthopnea, palpitations, paroxysmal nocturnal dyspnea or racing heartbeat Respiratory/Chest Respiratory/Chest: Reports dyspnea on exertion; Denies cough, dyspnea, orthopnea or paroxysmal nocturnal dyspnea Gastrointestinal Gastrointestinal: Reports melena and other Details: History of hemorrhoids ; Denies abdominal pain, diarrhea, nausea or vomiting Genitourinary Genitourinary ED: Denies dysuria or hematuria Musculoskeletal Musculoskeletal: Denies arthralgias, back pain or myalgias Integumentary Denies Abrasions or rash Neurologic Neurologic: Reports weakness; Denies headache(s) or paresthesias Endocrine Endocrinology: Denies cold intolerance or heat intolerance Hematologic/Lymphatic Hematologic/Lymphatic: Denies anemia, easy bleeding or easy bruising EXAM Physical Exam Const Vital Signs: 11/12/21 11:16 11/12/21 11:32 11/12/21 13:36 Temperature 97.5 F L Temperature Source Temporal Pulse Rate 61 64 Pulse Rate [Lying] 60 Pulse Rate [Sitting (for 1 minute prior to obtaining)] 64 Pulse Rate [Standing (for 1 minute prior to obtaining)] 65 Respiratory Rate 17 14 Blood Pressure 142/60 H 138/74 H Blood Pressure [Lying] 160/64 H Blood Pressure [Sitting (for 1 minute prior to obtaining)] 164/66 H Blood Pressure [Standing (for 1 minute prior to obtaining)] 138/74 H Blood Pressure Mean 87 95 Blood Pressure Mean [Lying] 96 Blood Pressure Mean [Sitting (for 1 minute prior to obtaining)] 98 Blood Pressure Mean [Standing (for 1 minute prior to obtaining)] 95 Pulse Ox 100 98 Oxygen Delivery Method Room Air Room Air 11/12/21 15:00 Temperature Temperature Source Pulse Rate Pulse Rate [Lying] Pulse Rate [Sitting (for 1 minute prior to obtaining)] Pulse Rate [Standing (for 1 minute prior to obtaining)] Respiratory Rate 16 Blood Pressure Blood Pressure [Lying] Blood Pressure [Sitting (for 1 minute prior to obtaining)] Blood Pressure [Standing (for 1 minute prior to obtaining)] Blood Pressure Mean Blood Pressure Mean [Lying] Blood Pressure Mean [Sitting (for 1 minute prior to obtaining)] Blood Pressure Mean [Standing (for 1 minute prior to obtaining)] Pulse Ox Oxygen Delivery Method Positive well nourished and well developed Constitutional Narrative: Patient does appear pale. General Appearance ED: well developed, NAD and pallor; Negative for cyanotic or diaphoretic HEENT Reports moist mucous membranes HEENT Narrative: Head is atraumatic no cephalic. Ears normal. Nares patent. Uvula midline. No deviation tongue with protrusion. No erythema or exudate of posterior pharynx. Eyes PERRL and EOMs intact bilaterally General Eye ED: Negative for pale conjunctiva or scleral icterus Neck no lymphadenopathy, supple and no JVD Neck Narrative: Trachea is midline. Chest Wall Negative for inspection of chest normal or palpation of chest normal Resp normal respiratory effort and clear to auscultation bilaterally Cardio regular rate and no murmurs GI normal to inspection, nondistended, normoactive bowel sounds, non-tender, non- distended, hepatosplenomegaly and no masses GI Narrative: Patient with hemorrhoids. No active bleeding. There is no stool in the rectal vault to determine if her stool is truly black. Hemoccult was not performed since she has significant hemorrhoids. Palpation: soft Back/Spine no CVA tenderness Thoracic Spine / Upper Back: Negative for thoracic spinal tenderness Lumbar Spine / Lower Back: Negative for lumbar spinal tenderness Neuro oriented x3 and CN's II-XII intact bilaterally Sensorium / Orientation: alert Psych mental status grossly normal Skin no rashes or lesions noted and no wounds General Skin Exam: pallor; Negative for jaundice MDM MDM MDM Narrative Medical decision making narrative: Concerned that patient may have a GI bleed. Suspect this may be an upper GI bleed. Will obtain CBC to assess H&H compared to recent blood work. BMP was obtained to assess BUN to creatinine ratio which would be elevated if she has a GI bleed. EKG was obtained to rule out cardiac ischemia. Coags were obtained. Patient was informed there was a delay because of acuity in department. She was informed of results. She states she had a bowel movement and stool was dark green-black. Since has been here for hours a repeat H&H was obtained. There is no drop she will be discharged to home. Lab Data Attestation: I reviewed the patient's lab results. Lab results narrative: No drop in hemoglobin. Will discharge to home. Furthermore patient did have a bowel movement and her stool is dark green-black and not black melena. Labs: Laboratory Results - last 24 hr 11/12/21 11/12/21 11/12/21 11:57 11:57 11:57 WBC 10.5 RBC 3.98 L Hgb 12.4 Hct 37.5 MCV 94.2 MCH 31.2 MCHC 33.1 RDW Std Deviation 44.4 H RDW Coeff of Leif 12.8 Plt Count 375 MPV 9.4 Immature Gran % (Auto) 0.300 Neut % (Auto) 67.6 Lymph % (Auto) 19.4 [place] % (Auto) 9.6 Eos % (Auto) 2.5 Baso % (Auto) 0.6 Absolute Neuts (auto) 7.1 Absolute Lymphs (auto) 2.04 Nucleated RBC % 0 PT 13.2 INR 1.0 APTT 27.0 Sodium 141 Potassium 3.6 Chloride 106 Carbon Dioxide 27.0 Anion Gap 8 BUN 25 H Creatinine 1.08 H Estim Creat Clear Calc 29.21 Est GFR (MDRD) Af Amer 63 Est GFR (MDRD) Non-Af 52 L BUN/Creatinine Ratio 23.1 H Glucose 100 Lactic Acid Calcium 9.7 Blood Type Antibody Screen 11/12/21 11/12/21 11/12/21 11:57 11:57 13:25 WBC RBC Hgb Hct MCV MCH MCHC RDW Std Deviation RDW Coeff of Leif Plt Count MPV Immature Gran % (Auto) Neut % (Auto) Lymph % (Auto) [place] % (Auto) Eos % (Auto) Baso % (Auto) Absolute Neuts (auto) Absolute Lymphs (auto) Nucleated RBC % PT INR APTT Sodium Potassium Chloride Carbon Dioxide Anion Gap BUN Creatinine Estim Creat Clear Calc Est GFR (MDRD) Af Amer Est GFR (MDRD) Non-Af BUN/Creatinine Ratio Glucose Lactic Acid 1.2 Calcium Blood Type Cancelled B NEGATIVE Antibody Screen Cancelled NEGATIVE 11/12/21 15:30 WBC 9.8 RBC 4.03 L Hgb 12.4 Hct 37.8 MCV 93.8 MCH 30.8 MCHC 32.8 RDW Std Deviation 44.3 H RDW Coeff of Leif 12.8 Plt Count 359 MPV 9.5 Immature Gran % (Auto) Neut % (Auto) Lymph % (Auto) [place] % (Auto) Eos % (Auto) Baso % (Auto) Absolute Neuts (auto) Absolute Lymphs (auto) Nucleated RBC % PT INR APTT Sodium Potassium Chloride Carbon Dioxide Anion Gap BUN Creatinine Estim Creat Clear Calc Est GFR (MDRD) Af Amer Est GFR (MDRD) Non-Af BUN/Creatinine Ratio Glucose Lactic Acid Calcium Blood Type Antibody Screen EKG Initial EKG: Attestation: I personally reviewed and interpreted this EKG as follows: Interpretation: Sinus Rhythm (EKG is normal other than a first-degree AV block. Ventricular rate 61. [place] interval is 210 ms. QS duration 82 ms. QT duration 414 ms. [place] is normal.) Discharge Plan Triage Chief Complaint: GI Bleed ED Provider: Zach Lackey Dx/Rx/DC Orders Clinical Impression: Black stool, Hyperlipidemia, Essential hypertension, External hemorrhoids Instructions: ED Hemorrhoids Prescriptions: No Action pantoprazole [Protonix] 40 mg tablet,delayed release (DR/EC) 40 mg PO QODAY 90 Days Qty: 90 Label Comments: simvastatin 40 MG tablet 40 mg PO QHS Label Comments: multivitamin 1 EACH tablet 1 tab PO DAILY calcium carbonate-vitamin D3 1 EACH tablet 1 ea PO DAILY docusate sodium [Colace] 100 mg Capsule 100 mg PO DAILY metoprolol tartrate 50 mg tablet 50 mg PO BID Qty: 30 0RF levofloxacin 750 mg tablet 750 mg PO DAILY Qty: 5 0RF Primary Care Provider: Errol Shahid Referrals: Errol Shahid MD [Primary Care Provider] - As soon as possible Disposition Disposition: Home, Self Care
[2021-11-12 12:16] LABS: Absolute Lymphocyte Count 2.04 X10^3/uL (0.83-4.51); Absolute Neutrophil Count 7.1 X10^3/uL (2.0-7.7); Basophil# 0.06 X10^3/uL; Basophil% 0.6 % (0-1); Eosinophil# 0.26 X10^3/uL; Eosinophils% 2.5 % (0-5); Hematocrit 37.5 % (37-47); Hemoglobin 12.4 g/dL (12.0-15.0); Lymphocyte # 2.04 X10^3/ul (0.83-4.51); Lymphocyte % 19.4 % (19-41); Mean Corp Hgb Conc 33.1 g/dL (32-36); Mean Corpuscular Hgb 31.2 pg (27.0-32.0); Mean Corpuscular Volume 94.2 fL (81-99); Mean Platelet Vol. 9.4 fl (6.2-12.0); Monocyte# 1.01 X10^3/uL; Monocyte% 9.6 % (0-10); NRBC Flagged by Analyzer 0 % (0-5); Neutrophil # 7.11 X10^3/uL (2.7-7.7); Neutrophil % 67.6 % (47-70); Platelet Count 375 K/mm3 (150-450); RBC Distribution Width CV 12.8 % (11.6-14.6); RBC Distribution Width SD 44.4 fl (35.1-43.9); Red Blood Count 3.98 M/mm3 (4.2-5.4); White Blood Count 10.5 K/mm3 (4.4-11.0)
[2021-11-12 12:27] LABS: Prothrombin Time (Protime)PT. 13.2 SECONDS (11.7-14.9)
[2021-11-12 12:36] LABS: Anion Gap 8 (5-15); BUN 25 mg/dL (7-18); BUN/Creat Ratio 23.1 RATIO (10-20); Calcium,Total 9.7 mg/dL (8.5-10.1); Chloride 106 mmol/L (98-107); Creatinine, Serum 1.08 mg/dL (0.55-1.02); EST Glomerular Filtration Rate 52 mL/min (>60); Est Glom Filt Rate - Afr Amer 63 mL/min (>60); Estimated Creatinine Clearance 29.21 ml/min; Glucose 100 mg/dL (74-106); Potassium 3.6 mmol/L (3.5-5.1); Sodium Level 141 mmol/L (136-145)
[2021-11-12 12:42] LABS: Lactic Acid 1.2 mmol/L (0.4-1.9)
[2021-11-12 13:36] VITALS: BP 138/74; PULSE 64; RESP 14; O2SAT 98
[2021-11-12 15:00] VITALS: RESP 16
[2021-11-12 15:39] LABS: Hematocrit 37.8 % (37-47); Hemoglobin 12.4 g/dL (12.0-15.0); Mean Corp Hgb Conc 32.8 g/dL (32-36); Mean Corpuscular Hgb 30.8 pg (27.0-32.0); Mean Corpuscular Volume 93.8 fL (81-99); Mean Platelet Vol. 9.5 fl (6.2-12.0); Platelet Count 359 K/mm3 (150-450); RBC Distribution Width CV 12.8 % (11.6-14.6); RBC Distribution Width SD 44.3 fl (35.1-43.9); Red Blood Count 4.03 M/mm3 (4.2-5.4); White Blood Count 9.8 K/mm3 (4.4-11.0)
== END 2021-11-12 16:34 | disposition home or self-care (01) ==
PROVIDERS: Emergency Provider Emergency Medicine; PCP Family Medicine; Visit Provider Emergency Medicine
DX: K64.4 Residual hemorrhoidal skin tags (principal); I48.0 Paroxysmal atrial fibrillation; K92.2 Gastrointestinal hemorrhage, unspecified; I25.10 Atherosclerotic heart disease of native coronary artery without angina pectoris; I10 Essential (primary) hypertension; R04.2 Hemoptysis; E78.5 Hyperlipidemia, unspecified; M19.90 Unspecified osteoarthritis, unspecified site; Z79.899 Other long term (current) drug therapy; Z79.01 Long term (current) use of anticoagulants
CPT/HCPCS: 80048; 83605; 85025; 85027; 85610; 85730; 86850; 86900; 86901; 93005; 99285; A4216

== ENCOUNTER → 2021-11-25 | Outpatient (CLI) | payer MEDICARE, OTHER, SELFPAY ==
--- NOTE | 2021-11-25 13:54 | PFTCOMP ---
COMPLETE PULMONARY FUNCTION TEST INTERPRETATION Brief HPI: Patient is a 81-year-old female, currently under the care of myself, who presents to [facility] for complete pulmonary function tests secondary to diagnosis of dyspnea. Respiratory therapist reports good effort and reproducible results. Interpretation: Forced expiration spirometry shows no large airways obstructive ventilatory defect with an FEV1 of 111% predicted. There is no significant bronchodilator response by strict ATS criteria. Spirograms are of good quality and plateau slowly, indicating slowly emptying areas of the lungs. The respiratory flow volume loop shows decreased expiratory flow rates at high lung volumes consistent with small airways obstruction. Lung volumes by body plethysmography show an elevated total lung capacity at 4.95 L, 132% predicted. All other lung volumes are increased symmetrically. Diffusion capacity by carbon monoxide is normal at 99% predicted. The airway resistance is normal. No previous pulmonary function tests were available for review. Impression: These pulmonary function tests are within normal limits. There is subtle signs of possible small airways obstruction.
== END | disposition home or self-care (01) ==
LOC: PSN 12:39
PROVIDERS: PCP Family Medicine; Visit Provider Internal Medicine Critical Care Medicine
DX: R06.00 Dyspnea, unspecified (principal)
CPT/HCPCS: 94060; 94726; 94729

== ENCOUNTER → 2021-11-29 | Outpatient (CLI) | payer MEDICARE, OTHER, SELFPAY ==
[2021-11-29 12:48] VITALS: PULSE 68; PULSE 70; PULSE 72; PULSE 73; O2SAT 100; O2SAT 96; O2SAT 98; O2SAT 99
--- NOTE | 2021-12-01 06:52 | PCM.PSN.6M ---
PSN 6 Minute Walk Test 6 Minute Walk Test 6 Minute Walk Test: 6 Minute Walk Test PSN:6-Minute Walk Test Start: 11/29/21 12:47 Freq: Status: Active Protocol: [id number] Document 11/29/21 12:48 BEVERLEYESSENCE (Rec: 11/29/21 12:50 BETTYROMINAESSENCE [id number]) 6 Minute Walk Test Date Performed 11/29/21 Time Performed 12:30 Height 4 ft 11 in Weight: 100 lb Weight in Pounds 100.[address]: Franco Toro Assistive device used: None Pre-test Oxygen Delivery Method Room Air Pulse Ox (%) 98 Pulse Rate (60-100 beats/min) 68 Dyspnea Luca Scale (0-10) 0.5 Exertion Luca Scale (6-20) 6 1st minute Oxygen Delivery Method Room Air Pulse Ox (%) 96 Pulse Rate (60-100 beats/min) 70 2nd minute Oxygen Delivery Method Room Air Pulse Ox (%) 98 Pulse Rate (60-100 beats/min) 72 3rd minute Oxygen Delivery Method Room Air Pulse Ox (%) 98 Pulse Rate (60-100 beats/min) 72 4th minute Oxygen Delivery Method Room Air Pulse Ox (%) 99 Pulse Rate (60-100 beats/min) 72 Reported Symptoms Dizziness 5th minute Oxygen Delivery Method Room Air Pulse Ox (%) 100 Pulse Rate (60-100 beats/min) 73 Reported Symptoms Dizziness 6th minute Oxygen Delivery Method Room Air Pulse Ox (%) 99 Pulse Rate (60-100 beats/min) 72 Dyspnea Luca Scale (0-10) 2 Exertion Luca Scale (6-20) 14 Reported Symptoms Dizziness Post-test Oxygen Delivery Method Room Air Pulse Ox (%) 99 Pulse Rate (60-100 beats/min) 68 Full Laps Walked 13 Partial Lap, Number of Tiles Walked 18 Total Distance Walked (ft) 785 Interpretation Interpretation: The patient ambulated 785 feet over the course of 6 minutes beginning on room air without assistive devices. Pretesting oxygen saturation was noted to be 98% on room air. With ambulation, the lay[place] oxygen saturation was 96%. There was no significant exertional oxygen desaturation. Recommendations Recommendations: There is no indication for the use of supplemental oxygen at this time.
== END | disposition home or self-care (01) ==
LOC: PSN 12:14
PROVIDERS: PCP Family Medicine; Referring Provider Internal Medicine Critical Care Medicine; Visit Provider Internal Medicine Critical Care Medicine
DX: R06.00 Dyspnea, unspecified (principal)
CPT/HCPCS: 94618

== ENCOUNTER → 2021-12-02 | Outpatient (CLI) | payer MEDICARE, OTHER, SELFPAY ==
--- NOTE | 2021-12-02 06:48 | ECHOD_ITS ---
Version 2 Reason For Study: Afib, Aflutter Procedure This was a 2D Doppler, Color Flow transthoracic echocardiogram. Exam performed in department. Left Ventricle Normal LV size. Left ventricular systolic function is normal. The estimated ejection fraction is 60 %. No regional wall motion abnormalities noted. Right Ventricle Normal RV size. Normal systolic function. Atria Normal left atrium. Normal right atrium. Mitral Valve Normal mitral valve. Tricuspid Valve Normal tricuspid valve. Mild (1+) tricuspid valve insufficiency. Pulmonary artery systolic pressure is 33 mmHg. Aortic Valve Trisinus/trileaflet aortic valve. Mild (1+) eccentric aortic valve insufficiency. Pulmonic Valve Normal pulmonic valve. Great Vessels Normal aortic root. The pulmonary artery is normal size. Normal inferior vena cava. Pericardium/Pleural No pericardial effusion. MMode/2D Measurements & Calculations LVIDd: 4.1 cm IVSd: 0.80 cm Ao root diam: 2.5 cm LVIDs: 2.0 cm LVPWd: 0.78 cm RVDd: 2.7 cm FS: 51.2 % LAV(MOD-bp): 37.2 ml LVAd ap4: 17.6 cm2 SV(MOD-sp4): 23.5 ml LAV(MOD-bp) Indexed: 27.1 ml/m2 LVLd ap4: 6.6 cm LAV(MOD-sp2): 38.5 ml EDV(MOD-sp4): 38.8 ml LAV(MOD-sp4): 35.4 ml EDV(sp4-el): 40.1 ml LVAs ap4: 9.7 cm2 LVLs ap4: 5.5 cm ESV(MOD-sp4): 15.3 ml ESV(sp4-el): 14.6 ml EF(MOD-sp4): 60.6 % EF(sp4-el): 63.6 % SV(sp4-el): 25.5 ml LA A4 area: 15.1 cm2 LA dimension(2D): 3.6 cm RA A4 area: 9.6 cm2 Doppler Measurements & Calculations MV E max bon: 82.6 cm/sec Lat Peak E' Bon: 5.2 cm/sec Med Peak E' Bon: 7.6 cm/sec MV A max bon: 74.5 cm/sec E/E' lat: 15.9 E/E' med: 10.9 MV E/A: 1.1 Ao V2 max: 119.9 cm/sec AI max bon: 343.8 cm/sec LV V1 max: 96.9 cm/sec Ao max P.7 mmHg AI max P.3 mmHg LV V1 max P.8 mmHg Ao V2 mean: 81.6 cm/sec Ao mean P.9 mmHg AI dec slope: 143.8 cm/sec2 Ao V2 VTI: 30.2 cm AI P1/2t: 700.4 msec PA V2 max: 95.9 cm/sec PI end-d bon: 122.4 cm/sec TR max bon: 268.7 cm/sec TR max P.9 mmHg ECHO/Echo Complete Interpretation Summary Normal LV size. Left ventricular systolic function is normal. The estimated ejection fraction is 60 %. Mild (1+) eccentric aortic valve insufficiency. Pulmonary artery systolic pressure is 33 mmHg. Ordering Physician: Mauro Davis Referring Physician: Tripp Shahid Performed By: Karely Faulkner, MARCIN, RVT
--- NOTE | 2021-12-02 17:02 | STRESSREP ---
Stress Test Report Pharmacologic myocardial perfusion stress test. 81-year-old lady with a history of atrial fibrillation. Resting EKG demonstrates normal sinus rhythm with a rate of 67 bpm normal intervals are noted.0.4 mg of regadenoson was infused per usual protocol followed by rapid intravenous saline flush injection continuous EKG monitoring was performed. The maximum heart rate attained was 92 bpm which was 65% of max impacted heart rate the maximum workload was 1 metabolic equivalent. At rest there were no ST or T wave changes noted suggest ischemia and at peak infusion nonspecific ST changes were noted with did not meet the criteria for ischemia. No angina was noted the test was terminated due to completion of the protocol. The peak blood pressure was 170/78 mmHg. Myocardial perfusion protocol. 11.7 mCi of technetium 99m sestamibi was injected at rest. 0.4 mg of regadenoson was infused per usual protocol. At peak infusion 33.1 mCi of technetium 99m sestamibi was injected stress images were obtained stress and rest images were reconstructed and compared in the short axis vertical long and horizontal long axis. Gated images were also obtained. Perfusion SPECT analysis: Review of the stress images demonstrate normal uptake of tracer noted in all areas of the myocardium. The resting images similarly demonstrate normal uptake of tracer noted in all areas of the myocardium. No areas of reversibility are noted to suggest ischemia and no previous infarct is noted. Gated SPECT analysis: The gated ejection fraction is 86%. Conclusion: Normal pharmacologic myocardial perfusion stress test. Preserved ejection fraction. Sinus rhythm maintained.
== END | disposition home or self-care (01) ==
LOC: CVS 06:48
PROVIDERS: PCP Family Medicine; Referring Provider Internal Medicine Cardiovascular Disease; Visit Provider Internal Medicine Cardiovascular Disease
DX: I25.10 Atherosclerotic heart disease of native coronary artery without angina pectoris (principal); I48.91 Unspecified atrial fibrillation
CPT/HCPCS: 78452; 93017; 93306; A9500; A4216; J2785

== ENCOUNTER → 2021-12-30 | Outpatient (CLI) | payer MEDICARE, OTHER, SELFPAY ==
[2021-12-30 12:34] LABS: Microalbumin,Random Urine 30.3 mg/L (NO RANGE EST.); Vitamin D,25 Hydroxy 46.9 ng/mL
[2021-12-30 12:51] LABS: ALB/GLOB Ratio 0.9 RATIO (0.9-2.4); AST(SGOT) 26 U/L (15-37); Alanine Aminotransfer ALT/SGPT 30 U/L (13-56); Albumin, Serum 3.7 g/dL (3.2-5.0); Alkaline Phosphatase 80 U/L (45-117); Anion Gap 7 (5-15); BUN 22 mg/dL (7-18); BUN/Creat Ratio 25.4 RATIO (10-20); Calcium,Total 9.3 mg/dL (8.5-10.1); Chloride 108 mmol/L (98-107); Cholesterol 188 mg/dL (200); Creatinine, Serum 0.86 mg/dL (0.55-1.02); EST Glomerular Filtration Rate 67 mL/min (>60); Est Glom Filt Rate - Afr Amer 81 mL/min (>60); Globulin 3.9 g/dL (2.2-4.2); Glucose 106 mg/dL (74-106); High Density Lipoprotein 69 mg/dL; Potassium 3.8 mmol/L (3.5-5.1); Protein, Total 7.6 g/dL (6.4-8.2); Sodium Level 142 mmol/L (136-145); Triglycerides 98 mg/dL; Very Low Density Lipoprotein 20 mg/dL (5-40)
[2021-12-30 12:54] LABS: PTHIN 85.8 pg/mL (18.4-80.1)
== END | disposition home or self-care (01) ==
LOC: MFPLAB 10:08
PROVIDERS: PCP Family Medicine; Referring Provider Family Medicine; Visit Provider Family Medicine
DX: Z00.00 Encounter for general adult medical examination without abnormal findings (principal); I48.91 Unspecified atrial fibrillation; E78.5 Hyperlipidemia, unspecified; M81.0 Age-related osteoporosis without current pathological fracture
CPT/HCPCS: 36415; 80053; 80061; 82043; 82306; 83970; 84443

== ENCOUNTER → 2022-01-17 | Outpatient (CLI) | payer MEDICARE, OTHER, SELFPAY ==
--- NOTE | 2022-01-17 14:37 | CT_ITS ---
STUDY: CT CHEST WITHOUT CONTRAST REASON FOR EXAM: Female, 81 years old. Follow up RLL infiltrate. H/O hemoptysis RADIATION DOSAGE (If Supplied By Facility): CTDIvol = ( 6.04 ) mGy, DLP = ( 228.08 ) mGycm TECHNIQUE: Transaxial imaging was performed without the administration of intravenous contrast material. Multiplanar coronal and sagittal images were reformatted. Individualized dose optimization techniques were used for this CT. COMPARISON: Comparison made with prior study dated 10/06/2020 and 11/07/2021. FINDINGS: CHEST Stable small benign-appearing bilateral axillary lymph nodes. Emphysematous changes. Stable scarring at the lung apices. Minimal linear scarring at the lung bases. The previously seen left lower lobe infiltrate has cleared. There is a residual 4.1 mm noncalcified nodule in the posterior medial segment in the left lower lobe as seen on axial image #100. This is unchanged as compared to prior study dated 10/06/2020. There is no demonstrated pleural abnormality. There are calcifications of the coronary arteries. There are multiple small lymph nodes within the mediastinum, which are normal in size and morphology most compatible with reactive lymph hyperplasia. Normal hilar regions. Normal unenhanced pulmonary arteries. There is atherosclerotic calcification of the aortic arch with tortuosity and elongation of the aortic arch and descending thoracic aorta. Normal osseous structures. Large hiatal hernia. Small gallstones. CT/Chest without Contrast IMPRESSION: The previously seen left lower lobe infiltrate has cleared. Stable 4.1 mm noncalcified nodule in the posteromedial segment of the left lower lobe. Large hiatal hernia. Gallstones. Electronically Signed: Davian Fitch MD at 15:25 EST ,
== END | disposition home or self-care (01) ==
LOC: CT 14:37
PROVIDERS: PCP Family Medicine; Referring Provider Internal Medicine Critical Care Medicine; Visit Provider Internal Medicine Critical Care Medicine
DX: R04.2 Hemoptysis (principal)
CPT/HCPCS: 71250

== ENCOUNTER 2022-01-19 13:32 | Emergency (ER) | payer MEDICARE, OTHER, SELFPAY ==
[2022-01-19] VITALS (7 sets, daily range): BP systolic 134–158; BP diastolic 59–88; PULSE 61–79; RESP 14–18; TEMP 36.2–36.3; O2SAT 95–98; BMI 20.5
--- NOTE | 2022-01-19 13:48 | CT_ITS ---
STUDY: CT CERVICAL SPINE WITHOUT CONTRAST REASON FOR EXAM: Female, 81 years old. Polytrauma RADIATION DOSAGE (If Supplied By Facility): CTDIvol = ( 13.41 ) mGy, DLP = ( 218.49 ) mGycm TECHNIQUE: High resolution transaxial imaging was performed without contrast material. Sagittal and coronal images were reconstructed. Individualized dose optimization techniques were used for this CT. COMPARISON: None FINDINGS: Normal craniovertebral junction. There are degenerative changes of the anterior atlantoaxial articulation. Normal odontoid process. There is an exaggerated cervical lordosis. Normal vertebral bodies and posterior osseous elements. C2-3: Normal endplates. Normal disc height and morphology. Normal central canal and intervertebral neuroforamina. C3-4: Normal endplates. Normal disc height and morphology. Normal central canal and intervertebral neuroforamina. C4-5: Marked degree of disc space narrowing. Spondylosis. Minimal retrolisthesis of C4 on C5. Facet joint osteoarthritis. C5-6: Marked degree of disc space narrowing. Spondylosis. Uncovertebral arthrosis. Mild degree of bilateral neural foraminal stenosis. C6-7: Marked degree of disc space narrowing and spondylosis. Mild degree of bilateral neural foraminal stenosis. C7-T1: Normal endplates. Normal disc height and morphology. Normal central canal and intervertebral neuroforamina. Normal visualized soft tissue structures. Mucosal thickening of the sphenoid sinus. CT/Spine Cervical without Contras IMPRESSION: Multilevel degenerative changes, as described above. Electronically Signed: Davian Fitch MD at 14:29 EST ,
--- NOTE | 2022-01-19 13:49 | EKG12_ITS ---
Test Reason : NEURO Blood Pressure : / mmHG Vent. Rate : 063 BPM Atrial Rate : 063 BPM P-R Int : 170 ms QRS Dur : 080 ms QT Int : 452 ms P-R-T Axes : 065 083 088 degrees QTc Int : 462 ms Normal sinus rhythm Nonspecific ST and T wave abnormality Abnormal ECG Confirmed by YANG BOGGS, JAMES ([id number]), editor producer MARY KAY SPARROW ([id number]) on 01/24/2022 9:15:31 A M Referred By: Confirmed By:SUZY SORIA MD
--- NOTE | 2022-01-19 13:49 | CT_ITS ---
STUDY: CT HEAD STROKE PROTOCOL W/O CONTRAST INJECTION REASON FOR EXAM: Female, 81 years old. Neuro deficit, acute, stroke suspected RADIATION DOSAGE (If Supplied By Facility): CTDIvol = ( 44.99 ) mGy, DLP = ( 711.75 ) mGycm TECHNIQUE: Transaxial CT imaging of the brain was performed without administration of intravenous contrast material. Individualized dose optimization techniques were used for this CT. COMPARISON: Comparison is made with prior examination dated 09/27/2015. FINDINGS: Normal soft tissue structures. Normal calvarium. There is mild cerebral atrophy with widening of the extra-axial spaces and ventricular dilatation. There are areas of decreased attenuation within the white matter tracts of the supratentorial brain, consistent with microvascular disease changes. Focal area of the decreased attenuation in the insular cortex of the right temporal lobe extending into the basal ganglia. Normal basal ganglia and thalami. Normal brainstem. Normal cerebellum. There is no intracranial hemorrhage. There is evidence of increased density of the right middle cerebral artery. Probably represents thrombus. Atherosclerotic calcification of the cavernous portions of the internal carotid arteries bilaterally. Normal visualized paranasal sinuses. ASPECT score: 8 CT/STROKE Brain/Head without Cont IMPRESSION: Findings suggestive of acute infarct involving the right basal ganglia with probable thrombus in the right middle cerebral artery. N.B. : The above Results were Read Back by Davian Fitch MD to Dr Angela MD, and understanding confirmed on 01/19/2022 14:26:16 (ET). Electronically Signed: Davian Fitch MD at 14:27 EST ,
--- NOTE | 2022-01-19 13:56 | ED.VIS.STROK ---
HPI History of Present Illness Chief Complaint: Neuro S/Sx Informant: EMS Narrative Narrative: Patient presenting by EMS for stroke concerns. Last normal yesterday morning over 24 hours ago. Reported by EMS. Concerns for facial drooping slurring of speech. Records not know any stroke history. However did note new onset atrial fibrillation found this past October. She was on Eliquis at that time. She subsequently developed potential hemoptysis GI bleed symptoms she was taken off her anticoagulants from reviewing records. She follow-up with pulmonology early November follow-up with her PCP last month. There is no noted restart of her anticoagulants. Noted she was in normal sinus rhythms on follow-up visits. She is unable to tell me much information due to significant dysarthria. Prior similar symptoms: No PFSH PFSH Medical History Acute coronary syndrome Anxiety Arthritis Atherosclerosis of coronary artery of [place] heart without angina pectoris Cardiology follow-up encounter Essential hypertension GERD (gastroesophageal reflux disease) Hiatal hernia History of hiatal hernia History of renal disease History of stress test Hyperlipidemia IBS (irritable bowel syndrome) Kidney stones Leg cramps Migraine headache Non-smoker Osteoporosis Other chronic sinusitis Polyp of nasal cavity Wears glasses Wears hearing aid Home Medications simvastatin 40 mg tablet 40 mg PO QHS Cholesterol 06/14/14 [History Last Taken 04/14/17] calcium carbonate 600 mg-vitamin D3 20 mcg (800 unit) tablet 1 ea PO DAILY Vitamin supplement 04/15/17 [History Last Taken 04/14/17] multivitamin 1 tab PO DAILY Vitamin 04/15/17 [History Last Taken 04/14/17] docusate sodium 100 mg capsule (Colace) 100 mg PO DAILY 06/14/21 [History Last Taken Unknown] metoprolol tartrate 50 mg tablet 50 mg PO BID #30 tabs 11/05/21 [Rx Last Taken Unknown] melatonin 3 mg capsule 3 mg PO HS PRN 11/18/21 [History Last Taken Unknown] mirtazapine 7.5 mg tablet 7.5 mg PO DAILY PRN 11/18/21 [History Last Taken Unknown] pantoprazole 40 mg tablet,delayed release (Protonix) 40 mg PO DAILY PRN 90 days #90 tabs 11/18/21 [History Last Taken Unknown] Allergy/AdvReac Type Severity Reaction Status Date / Time ranolazine [From Ranexa] AdvReac Severe low urine Verified 01/19/22 14:35 output, rash oseltamivir [From Tamiflu] AdvReac Unknown Verified 01/19/22 14:35 Family History Father CAD (coronary artery disease) CVA (cerebral vascular accident) Hypertension Mother Hypertension Brother Hypertension Sister Diabetes Other Heart disease Surgical History H/O sinus surgery History of cataract surgery History of left heart catheterization (04/16/17) History of tonsillectomy Social History household members: none Smoking Status: Never smoker substance use type: does not use ROS ROS ED Review of Systems ROS Unobtainable: due to mental condition EXAM Physical Exam Const Vital Signs: 01/19/22 13:34 01/19/22 13:53 01/19/22 14:35 Temperature 97.1 F L Temperature Source Temporal Pulse Rate 61 72 Respiratory Rate 16 14 Blood Pressure 134/59 H 156/66 H Blood Pressure Mean 84 96 Pulse Ox 95 97 98 Oxygen Delivery Method Room Air Room Air Room Air 01/19/22 15:00 01/19/22 15:30 01/19/22 15:45 Temperature 97.4 F L Temperature Source Pulse Rate 79 78 75 Respiratory Rate 16 15 18 Blood Pressure 158/70 H 152/88 H 150/67 H Blood Pressure Mean 99 109 94 Pulse Ox 98 96 98 Oxygen Delivery Method Room Air 01/19/22 16:00 Temperature Temperature Source Pulse Rate 78 Respiratory Rate 16 Blood Pressure 150/77 H Blood Pressure Mean 101 Pulse Ox 98 Oxygen Delivery Method Positive well nourished and well developed Constitutional Narrative: Patient with dysarthria following some commands however unable to clearly answer questions. Reported her name is Albina. General Appearance ED: well developed HEENT Reports moist mucous membranes normocephalic and atraumatic Eyes PERRL, EOMs intact bilaterally and conjunctivae normal General Eye ED: Yes normal appearance of both eyes Neck no lymphadenopathy and supple General: Negative for tenderness Chest Wall Chest: Negative for tenderness Resp normal respiratory effort and normal air movement Effort and Inspection: symmetric chest movement; Negative for respiratory distress Cardio regular rate, regular rhythm and no murmurs Peripheral Pulses: pulses 2+ throughout GI normal to inspection, nondistended, normoactive bowel sounds and non-tender Palpation: Negative for guarding or rebound tenderness present Back/Spine no CVA tenderness and no thoracic nor lumbar tenderness Extremity normal to inspection Extremity Narrative: No shortening or rotation of lower extremities. Negative logroll. General Extremety ED: Negative for edema or tenderness General Extremity: Negative for edema Neuro oriented x3 and no sensory deficits noted Neuro Narrative: Patient calculable NIH of 9. Left-sided deficits with dysarthria and agnosia. She cannot tell me the month and age. She had left lip droop. Sensorium / Orientation: awake and alert Skin no rashes or lesions noted and no wounds NIHSS NIHSS Initial: 1a Level of Consciousness: 0 1b LOC Questions (Score 2 if aphasic/stupor): 2 1c LOC Commands (Only score 1st attempt): 0 2 Best Gaze (If aphasic, use reflexive mvmts.): 0 3 Visual: 0 4 Facial Palsy: 1 5 Motor Arm Right (UN = amputation/fusion): 0 5 Motor Arm Left: 1 6 Motor Leg Right: 0 6 Motor Leg Left: 3 7 Limb ataxia (Only + if out of proportion): 0 8 Sensory (Aphasia/stupor=0 or 1, coma=2): 0 9 Best Language: 1 10 Dysarthria (mute, coma=2, intubated=UN): 1 11 Extinction and Inattention (only scored if +): 0 Total Score: 9 MDM MDM MDM Narrative Medical decision making narrative: Patient presenting with stroke symptoms initial report 7 AM yesterday morning more than 24 hours ago. NIH of 9. Stroke work-up initiated she is not a tPA candidate. I obtain 1 view chest x-ray 1 view pelvis due to her being found on the ground both reviewed by myself and read by radiology as negative. CT cervical spine also negative. CT brain discussion with radiologist concerns for acute infarct basal ganglia and in the region of the right mid middle cerebral artery. Labs troponin elevated at 3300. EKG was sinus rhythm. Discussion with family on arrival now reporting that her last normal was 7 PM from her sibling which is less than 24 hours. Therefore I discussed with stroke neurologist Dr. Lazaro, who requested the CT angiogram if positive will be transferred on [facility]. This was obtained positive for M2 occlusion on the right. I rediscussed with transfer line and Dr. Lazaro she will be transported by [facility] down to [facility] ED for evaluation. He did not want anticoagulation medications. Discussed elevated troponin could be from stroke symptoms. Lab Data Attestation: I reviewed the patient's lab results. Labs: Laboratory Results - last 24 hr 01/19/22 01/19/22 01/19/22 13:36 13:52 13:52 WBC 11.7 H RBC 4.16 L Hgb 12.7 Hct 39.1 MCV 94.0 MCH 30.5 MCHC 32.5 RDW Std Deviation 45.2 H RDW Coeff of Leif 13.2 Plt Count 285 MPV 10.5 Immature Gran % (Auto) 0.400 Neut % (Auto) 86.9 H Lymph % (Auto) 9.3 L [place] % (Auto) 2.9 Eos % (Auto) 0.2 Baso % (Auto) 0.3 Absolute Neuts (auto) 10.2 H Absolute Lymphs (auto) 1.08 Nucleated RBC % 0 PT 13.1 INR 1.0 APTT 24.6 Sodium Potassium Chloride Carbon Dioxide Anion Gap BUN Creatinine Estim Creat Clear Calc Est GFR (MDRD) Af Amer Est GFR (MDRD) Non-Af BUN/Creatinine Ratio Glucose Calcium Troponin I High Sens POC Glucose 122 H 01/19/22 13:52 WBC RBC Hgb Hct MCV MCH MCHC RDW Std Deviation RDW Coeff of Leif Plt Count MPV Immature Gran % (Auto) Neut % (Auto) Lymph % (Auto) [place] % (Auto) Eos % (Auto) Baso % (Auto) Absolute Neuts (auto) Absolute Lymphs (auto) Nucleated RBC % PT INR APTT Sodium 141 Potassium 4.1 Chloride 106 Carbon Dioxide 29.0 Anion Gap 6 BUN 19 H Creatinine 0.84 Estim Creat Clear Calc 42.95 Est GFR (MDRD) Af Amer 84 Est GFR (MDRD) Non-Af 69 BUN/Creatinine Ratio 22.6 H Glucose 126 H Calcium 9.5 Troponin I High Sens 3399 H* POC Glucose Radiography Diagnostic Testing: Clinical Impression(s) from Imaging Studies Cervical Spine CT 01/19/22 13:48 IMPRESSION: Multilevel degenerative changes, as described above. Electronically Signed: Davian Fitch MD at 14:29 EST , Brain CT 01/19/22 13:49 IMPRESSION: Findings suggestive of acute infarct involving the right basal ganglia with probable thrombus in the right middle cerebral artery. N.B. : The above Results were Read Back by Davian Fitch MD to Dr Angela MD, and understanding confirmed on 01/19/2022 14:26:16 (ET). Electronically Signed: Davian Fitch MD at 14:27 EST , ADDENDUM: 01/19/22 1434 IMPRESSION: Findings suggestive of acute infarct involving the right basal ganglia with probable thrombus in the right middle cerebral artery. N.B. : The above Results were Read Back by Davian Fitch MD to Dr Angela MD, and understanding confirmed on 01/19/2022 14:26:16 (ET). Electronically Signed: Davian Fitch MD at 14:27 EST , Chest X-Ray 01/19/22 14:00 IMPRESSION: Hyperinflation. The lungs are clear. Electronically Signed: Davian Fitch MD at 14:32 EST , Pelvis X-Ray 01/19/22 14:00 IMPRESSION: Degenerative changes. Disc space narrowing in the lower lumbar spine. Electronically Signed: Davian Fitch MD at 14:30 EST , Head/Neck CTA 01/19/22 14:46 IMPRESSION: Occlusion of the right middle cerebral artery branch just distal to its origin with reconstitution of the M2 segments and the arteries in the right sylvian fissure. Electronically Signed: Davian Fitch MD at 15:26 EST , EKG Initial EKG: Attestation: I personally reviewed and interpreted this EKG as follows: Comments: Sinus rate of 63, no ST or T wave changes. Stroke Documentation Questions Stroke Team Activated: No Critical Care Time Critical Care Time: Yes Critical care time (excluding procedures): 30-74 minutes, Discussing w/Patient &/or Family/Iron Setter, Discussing w/Consultants, Arranging Admission or Transfer, Performing Direct Patient Care at Bedside and - (45 minutes) Discharge Plan Triage Chief Complaint: Neuro S/Sx ED Provider: Kenneth Miller Dx/Rx/DC Orders Clinical Impression: Acute CVA (cerebrovascular accident), Cerebral artery occlusion with cerebral infarction, Elevated troponin, Paroxysmal atrial fibrillation Prescriptions: No Action pantoprazole [Protonix] 40 mg tablet,delayed release (DR/EC) 40 mg PO DAILY PRN90 Days Qty: 90 Label Comments: mirtazapine 7.5 mg tablet 7.5 mg PO DAILY PRN melatonin 3 mg capsule 3 mg PO HS PRN simvastatin 40 MG tablet 40 mg PO QHS Label Comments: multivitamin 1 EACH tablet 1 tab PO DAILY calcium carbonate-vitamin D3 1 EACH tablet 1 ea PO DAILY docusate sodium [Colace] 100 mg Capsule 100 mg PO DAILY metoprolol tartrate 50 mg tablet 50 mg PO BID Qty: 30 0RF Primary Care Provider: Errol Shahid Referrals: Errol Shahid MD [Primary Care Provider] - Activity Restrictions/Additional Instructions: Right M2 occlusion. Troponin high-sensitivity 3300.EKG sinus rhythm. Disposition Disposition: DC/Tx to Another Type of HCF Discharge Location: [facility] Discharge Date/Time: 01/19/22 16:22
[2022-01-19 13:57] LABS: Absolute Lymphocyte Count 1.08 X10^3/uL (0.83-4.51); Absolute Neutrophil Count 10.2 X10^3/uL (2.0-7.7); Basophil# 0.03 X10^3/uL; Basophil% 0.3 % (0-1); Eosinophil# 0.02 X10^3/uL; Eosinophils% 0.2 % (0-5); Hematocrit 39.1 % (37-47); Hemoglobin 12.7 g/dL (12.0-15.0); Lymphocyte # 1.08 X10^3/ul (0.83-4.51); Lymphocyte % 9.3 % (19-41); Mean Corp Hgb Conc 32.5 g/dL (32-36); Mean Corpuscular Hgb 30.5 pg (27.0-32.0); Mean Platelet Vol. 10.5 fl (6.2-12.0); Monocyte# 0.34 X10^3/uL; Monocyte% 2.9 % (0-10); NRBC Flagged by Analyzer 0 % (0-5); Neutrophil # 10.15 X10^3/uL (2.7-7.7); Neutrophil % 86.9 % (47-70); Platelet Count 285 K/mm3 (150-450); RBC Distribution Width CV 13.2 % (11.6-14.6); RBC Distribution Width SD 45.2 fl (35.1-43.9); Red Blood Count 4.16 M/mm3 (4.2-5.4); White Blood Count 11.7 K/mm3 (4.4-11.0)
--- NOTE | 2022-01-19 14:00 | RAD_ITS ---
STUDY: X-RAY - PELVIS REASON FOR EXAM: Female, 81 years old. Fall TECHNIQUE: One view of the pelvis was obtained. COMPARISON: None. FINDINGS: Moderate amount of fecal material is seen in the colon. Normal visualized soft tissue structures. Normal bilateral iliac wings, sacroiliac joints and visualized sacrum. Normal visualized bilateral superior and inferior pubic rami. There is narrowing with sclerosis of the pubic symphysis. Normal ischial tuberosities. Normal visualized right femoral head. Normal right acetabulum. There is mild articular joint space narrowing of the right hip. Normal visualized left femoral head. Normal left acetabulum. There is mild articular joint space narrowing of the left hip. RAD/Pelvis 1 or 2 Views IMPRESSION: Degenerative changes. Disc space narrowing in the lower lumbar spine. Electronically Signed: Davian Fitch MD at 14:30 EST ,
--- NOTE | 2022-01-19 14:00 | RAD_ITS ---
STUDY: X-RAY CHEST REASON FOR EXAM: Female, 81 years old. Neuro deficit, acute, stroke suspected TECHNIQUE: Single AP portable view of the chest. COMPARISON: Comparison is made with prior study dated 11/05/2021. FINDINGS: EKG electrodes are seen. Hyperinflation. The lungs are clear. There is no demonstrated pleural abnormality. Normal size heart. Normal mediastinum and meño. Normal visualized pulmonary arteries. There is atherosclerotic calcification of the aortic arch with tortuosity. There are degenerative changes of the visualized thoracic spine. There is degenerative osteoarthritis of the bilateral shoulders. Hiatal hernia. RAD/Chest 1 View IMPRESSION: Hyperinflation. The lungs are clear. Electronically Signed: Davian Fitch MD at 14:32 EST ,
[2022-01-19 14:06] LABS: Prothrombin Time (Protime)PT. 13.1 SECONDS (11.7-14.9)
[2022-01-19 14:07] LABS: Partial Thromboplast Time 24.6 Seconds (24.1-36.2)
[2022-01-19 14:25] LABS: Anion Gap 6 (5-15); BUN 19 mg/dL (7-18); BUN/Creat Ratio 22.6 RATIO (10-20); Calcium,Total 9.5 mg/dL (8.5-10.1); Chloride 106 mmol/L (98-107); Creatinine, Serum 0.84 mg/dL (0.55-1.02); EST Glomerular Filtration Rate 69 mL/min (>60); Est Glom Filt Rate - Afr Amer 84 mL/min (>60); Estimated Creatinine Clearance 42.95 ml/min; Glucose 126 mg/dL (74-106); Potassium 4.1 mmol/L (3.5-5.1); Sodium Level 141 mmol/L (136-145); Troponin-I HS 3399 pg/mL (3.0-54.0)
--- NOTE | 2022-01-19 14:46 | CT_ITS ---
STUDY: CTA HEAD AND NECK WITH CONTRAST REASON FOR EXAM: Female, 81 years old. Stroke RADIATION DOSAGE (If Supplied By Facility): CTDIvol = ( 19 ) mGy, DLP = ( 577.7 ) mGycm TECHNIQUE: CT angiography was performed with a multi-detector CT scanner. Data acquisition was obtained from the skull base through the vertex following intravenous administration of IV 100mL Isovue-370. MIP images were reconstructed from the axial data set. Post-processing of the angiographic images was performed, with multiplanar reformation and 3D reconstruction. Individualized dose optimization techniques were used for this CT. COMPARISON: No relevant priors. FINDINGS: Normal bilateral petrous carotid arteries. There is calcified plaque formation of the right cavernous carotid artery, without a cross-sectional luminal stenosis. There is calcified plaque formation of the left cavernous carotid artery, without a cross-sectional luminal stenosis. Normal right A1 segments of the anterior cerebral artery. Normal left A1 segments of the anterior cerebral artery. Normal intact anterior communicating artery (ACOM). Normal bilateral A2 segments of the anterior cerebral arteries. There is occlusion of the right middle cerebral artery just distal to its origin. There is reconstitution of the branches of the right middle cerebral artery in the right sylvian fissure. Normal left M1 and M2 segments of the middle cerebral arteries, with a normal M1 bifurcation. Normal right posterior communicating artery (PCOM). Normal left posterior communicating artery (PCOM). Normal bilateral vertebral arteries. Normal basilar artery with a normal basilar bifurcation. The visualized bilateral superior cerebellar (SCA) arteries are normal. Normal bilateral P1, P2 and visualized P3 segments of the posterior cerebral arteries. There is no demonstrated aneurysm of the [place]. Decreased attenuation in the right basal ganglia. AORTIC ARCH: There is atherosclerotic calcific plaque formation of the aortic arch and great vessels arising from the aortic arch, without a hemodynamically significant stenosis. There is a normal origin of the brachiocephalic, left common carotid, and left subclavian arteries. RIGHT CAROTID ARTERIES: Normal right common carotid artery (CCA). Normal right common carotid bulb. Normal origin of the right internal carotid (ICA) artery without a hemodynamically significant stenosis. Normal visualized cervical portion of the right internal carotid artery. Normal origin of the right external carotid artery (ECA). LEFT CAROTID ARTERIES: Normal left common carotid artery (CCA). Normal left common carotid bulb. Normal origin of the left internal carotid (ICA) artery without a hemodynamically significant stenosis. Normal visualized cervical portion of the left internal carotid artery. Normal origin of the left external carotid artery (ECA). VERTEBRAL ARTERIES: Normal bilateral vertebral arteries. CT/CTA Head AND Neck W/ Contrast IMPRESSION: Occlusion of the right middle cerebral artery branch just distal to its origin with reconstitution of the M2 segments and the arteries in the right sylvian fissure. Electronically Signed: Davian Fitch MD at 15:26 EST ,
[2022-01-19 15:16] LABS: Bedside Glucose 122 mg/dL (74-106)
--- NOTE | 2022-01-19 16:21 | ED.RN ---
REPORT GIVEN TO GAB TAVARES. FAMILY AT BEDSIDE.
--- NOTE | 2022-01-19 18:36 | CM.ED ---
SW Note SW met with patient's daughter and son and provided emotional support. SW later went back into room and provided patient's family with driving directions to [facility] as well as hotels close to [facility]. SW remains available if needs arise. Leida QUIROGA
== END 2022-01-19 16:22 | disposition other institution (70) ==
PROVIDERS: Emergency Provider Emergency Medicine; PCP Family Medicine; Visit Provider Emergency Medicine
DX: I63.9 Cerebral infarction, unspecified (principal); I48.0 Paroxysmal atrial fibrillation; I10 Essential (primary) hypertension; I25.10 Atherosclerotic heart disease of native coronary artery without angina pectoris; E78.5 Hyperlipidemia, unspecified; R77.8 Other specified abnormalities of plasma proteins
CPT/HCPCS: 70450; 70496; 70498; 71045; 72125; 72170; 80048; 82962; 84484; 85025; 85610; 85730; 93005; 99285; Q9967

== ENCOUNTER 2022-01-28 19:56 | Inpatient (IN) | payer MEDICARE, OTHER, SELFPAY ==
[2022-01-28 20:00] VITALS: BMI 19.0
[2022-01-28 20:35] VITALS: BP 117/50; PULSE 85; RESP 17; TEMP 36.6; O2SAT 94
[2022-01-28 20:39] VITALS: BP 117/50; PULSE 85; RESP 17; TEMP 36.6; O2SAT 94
[2022-01-28 21:17] VITALS: BP 117/50; PULSE 85
[2022-01-28] MEDS: Atorvastatin Calcium 40 MG Tablet PO (21:17)
[2022-01-28] MEDS: MELATONIN 3 MG TABLET PO (21:17)
[2022-01-28] MEDS: Metoprolol Tartrate 25 MG Tablet PO (21:17)
[2022-01-28] MEDS: Mirtazapine 15 MG Tablet 7.5 MG PO (21:18)
[2022-01-29 06:27] LABS: Hematocrit 31.2 % (37-47); Hemoglobin 10.1 g/dL (12.0-15.0); Mean Corp Hgb Conc 32.4 g/dL (32-36); Mean Corpuscular Hgb 31.3 pg (27.0-32.0); Mean Corpuscular Volume 96.6 fL (81-99); Mean Platelet Vol. 10.4 fl (6.2-12.0); Platelet Count 322 K/mm3 (150-450); RBC Distribution Width CV 13.6 % (11.6-14.6); RBC Distribution Width SD 48.6 fl (35.1-43.9); Red Blood Count 3.23 M/mm3 (4.2-5.4); White Blood Count 12.6 K/mm3 (4.4-11.0)
[2022-01-29 06:55] LABS: ALB/GLOB Ratio 0.6 RATIO (0.9-2.4); AST(SGOT) 36 U/L (15-37); Alanine Aminotransfer ALT/SGPT 48 U/L (13-56); Albumin, Serum 2.4 g/dL (3.2-5.0); Alkaline Phosphatase 72 U/L (45-117); Anion Gap 6 (5-15); BUN 44 mg/dL (7-18); BUN/Creat Ratio 53.5 RATIO (10-20); Calcium,Total 8.7 mg/dL (8.5-10.1); Chloride 108 mmol/L (98-107); Creatinine, Serum 0.82 mg/dL (0.55-1.02); EST Glomerular Filtration Rate 71 mL/min (>60); Est Glom Filt Rate - Afr Amer 86 mL/min (>60); Estimated Creatinine Clearance 38.82 ml/min; Glucose 107 mg/dL (74-106); Magnesium 2.7 mg/dL (1.6-2.6); Potassium 4.3 mmol/L (3.5-5.1); Protein, Total 6.4 g/dL (6.4-8.2); Sodium Level 140 mmol/L (136-145)
[2022-01-29 07:15] LABS: Phosphorus 3.5 mg/dL (2.5-4.9)
[2022-01-29 07:58] VITALS: BP 122/59; PULSE 75; RESP 17; TEMP 36.9; O2SAT 95
[2022-01-29 09:11] VITALS: BP 122/59; PULSE 75
[2022-01-29] MEDS: Metoprolol Tartrate 25 MG Tablet PO ×2 (09:11→20:01)
[2022-01-29] MEDS: Multivitamins,Therapeutic Tablet 1 TABLET PO (09:11)
[2022-01-29] MEDS: Aspirin 81 MG TAB.CHEW PO (09:11)
[2022-01-29] MEDS: Pantoprazole Sodium 40 MG Tablet PO (09:11)
[2022-01-29] MEDS: Calcium Carb/Vitamin D 1 TABLET Tablet PO (09:11)
[2022-01-29] MEDS: Senna/Docusate Sodium 1 Tablet 2 TABLET PO (10:13)
[2022-01-29 14:29] VITALS: O2SAT 96
[2022-01-29] MEDS: Ensure Plus High Protein 120 ML LIQUID PO ×2 (18:26→20:02)
[2022-01-29 19:45] VITALS: BP 134/54; PULSE 82; RESP 17; TEMP 36.9; O2SAT 100
[2022-01-29 20:01] VITALS: BP 134/54; PULSE 82
[2022-01-29] MEDS: MELATONIN 3 MG TABLET PO (20:01)
[2022-01-29] MEDS: Mirtazapine 15 MG Tablet 7.5 MG PO (20:01)
[2022-01-29] MEDS: Atorvastatin Calcium 40 MG Tablet PO (20:01)
[2022-01-29 23:00] VITALS: BMI 19.0
[2022-01-30 07:39] VITALS: BP 112/47; PULSE 70; RESP 16; TEMP 36.9; O2SAT 94
[2022-01-30 08:52] VITALS: BP 112/47; BP 91/46; BP 99/43; PULSE 70; PULSE 72; PULSE 85
[2022-01-30 09:24] VITALS: BP 112/47; PULSE 70
[2022-01-30] MEDS: Metoprolol Tartrate 25 MG Tablet PO (09:24)
[2022-01-30] MEDS: NYSTATIN 500,000 UNIT/5 ML UDC 500000 UNIT PO ×4 (09:24→21:49)
[2022-01-30] MEDS: Calcium Carb/Vitamin D 1 TABLET Tablet PO (09:25)
[2022-01-30] MEDS: Aspirin 81 MG TAB.CHEW PO (09:25)
[2022-01-30] MEDS: Multivitamins,Therapeutic Tablet 1 TABLET PO (09:25)
[2022-01-30] MEDS: Pantoprazole Sodium 40 MG Tablet PO (09:25)
[2022-01-30] MEDS: Senna/Docusate Sodium 1 Tablet 2 TABLET PO ×2 (09:25→21:52)
--- NOTE | 2022-01-30 09:57 | EX.PCM.HP.RE ---
[facility] - General General Date of Admission: 01/28/22 Date of Service: 01/30/22 Chief Complaint: Physical debility due to CVA. HPI Narrative ALTA MAYA, is a 81 YO F with a PMH of anxiety, and osteoarthritis, hypertension, GERD, hiatal hernia, hyperlipidemia, irritable bowel syndrome, nephrolithiasis, migraine headaches, osteoporosis and hemoptysis while on Eliquis who present to the ED at [facility] on 01/19/22 complaining of facial droop and slurred speech which had been present for reportedly > 24 hours. On physical exam she was additionally found to have left leg greater than left arm weakness with an NIH of 9. LKW was later changed to < 24H and [facility] tele-neurology was contacted. A noncontrast brain CT showed findings suggestive of acute infarct involving the right basal ganglia with probable thrombus in the right middle cerebral artery. CTA was obtained and showed occlusion of the right middle cerebral artery branch just distal to its origin with reconstitution of the M2 segments and the arteries in the right sylvian fissure. Significant lab included an elevated high-sensitivity troponin at 3300. EKG at arrival to the emergency department showed normal sinus rhythm. Dr. Lazaro from [facility] recommended transfer to [facility] for possible intervention. When she arrived at [facility] the NIH was 11. She was taken to the OR for thrombectomy and received TICI 3 revascularization. MRI at [facility] showed small acute R cerebellar stroke with hemorrhagic conversion. Repeat noncontrast CT head on 01/22/2022 showed continued evolution of right basal ganglia infarct ,a R temporal lobe infarct and a R cerebellar infarct. there was hemorrhagic transformation of the R basal ganglia infacrt present that was stable. transthoracic echocardiogram showed an EF of 60 to 65% with severe left atrial enlargement. Significant lab included an LDL of 90 and a hemoglobin A1c of 5.6. Recommendations at discharge included aspirin 81 mg daily until anticoagulation was initiated. Anticoagulation with Eliquis is to start 1 month post stroke on 02/16/2022. She was also discharged on atorvastatin 40 mg daily for secondary stroke risk reduction. Recommendations from cardiology included rate control with a goal less than 80 bpm, noninvasive management of CAD and anticoagulation if/when able from a medical/stroke perspective. If for some reason she cannot be anticoagulated they recommend a left atrial appendage occlusion procedure. While at [facility] she was seen by PT/OT/ST and a recommendation for acute inpt rehab at [facility] was made. She was transferred to the acute inpt rehab floor at [facility] on 01/28/22 for 3 hours of therapy daily to restore function at or near her level prior to the stroke. PFT's normal in Nov 2021. Pulmonary exercise test showed no significant exertional oxygen desaturation. Stress test in November 2021 was negative for ischemia and the gated nuclear ejection fraction was 86%. She had no atrial fibrillation during the stress test. Cardiac catheterization in 2017 showed minimal coronary artery disease. In October 2021 she had atrial fibrillation in conjunction with pneumonia. She was placed on Eliquis and subsequently had hemoptysis and Eliquis was discontinued. EMR from [facility] and all paperwork received from [facility] were reviewed. All recent lab was personally reviewed. [facility] Medical History (Updated 01/30/22 @ 15:[address] Paulette Cortez DO) Acute coronary syndrome Anxiety Arthritis Atherosclerosis of coronary artery of [place] heart without angina pectoris Atrial fibrillation Cardiology follow-up encounter Cholelithiasis Dyspnea Essential hypertension GERD (gastroesophageal reflux disease) GIB (gastrointestinal bleeding) Hiatal hernia History of hiatal hernia History of renal disease History of stress test Hyperlipidemia IBS (irritable bowel syndrome) Irregular heart beat Kidney stones Leg cramps Migraine headache New onset atrial fibrillation (11/07/21) Non-smoker Osteoporosis Other chronic sinusitis Paroxysmal A-fib Pneumonia Polyp of nasal cavity Shingles Stroke/cerebrovascular accident Wears glasses Wears hearing aid Home Medications simvastatin 40 mg tablet 40 mg PO QHS Cholesterol 06/14/14 [History Last Taken 04/14/17] calcium carbonate 600 mg-vitamin D3 20 mcg (800 unit) tablet 1 ea PO DAILY Vitamin supplement 04/15/17 [History Last Taken 04/14/17] multivitamin 1 tab PO DAILY Vitamin 04/15/17 [History Last Taken 04/14/17] melatonin 3 mg capsule 3 mg PO HS sleep 11/18/21 [History Last Taken Unknown] mirtazapine 7.5 mg tablet 7.5 mg PO QHS sleep 11/18/21 [History Last Taken Unknown] pantoprazole 40 mg tablet,delayed release (Protonix) 40 mg PO DAILY stomach 90 days #90 tabs 11/18/21 [History Last Taken Unknown] aspirin 81 mg tablet,delayed release 81 mg PO DAILY anti platlets 01/28/22 [History Last Taken Unknown] metoprolol tartrate 50 mg tablet 25 mg PO BID heart 01/28/22 [History Last Taken Unknown] Allergy/AdvReac Type Severity Reaction Status Date / Time ranolazine [From Ranexa] AdvReac Severe low urine Verified 01/28/22 20:55 output, rash oseltamivir [From Tamiflu] AdvReac Unknown Verified 01/28/22 20:55 Family History Father CAD (coronary artery disease) CVA (cerebral vascular accident) Hypertension Mother Hypertension Brother Hypertension Sister Diabetes Other Heart disease Surgical History H/O sinus surgery History of cataract surgery History of left heart catheterization (04/16/17) History of tonsillectomy Social History household members: none Smoking Status: Never smoker substance use type: does not use ROS Review of Systems ROS Unobtainable: other Details: ROS limited by receptive and expressive aphasia. Constitutional Constitutional: Reports other Details: Looks like she has lost about 3 lbs since October. I suspect the weight from the ED on 01/19/22 is not accurate and they may have asked her what she weighed. Eyes Eyes: Denies blurry vision, change in vision, discharge from eye(s), erythema, irritation or itchy eyes ENT HEENT: Reports dysphagia Cardiovascular Cardiovascular: Denies chest pain Respiratory/Chest Respiratory/Chest: Denies shortness of breath at rest Gastrointestinal Gastrointestinal: Denies abdominal pain, constipation or nausea Genitourinary Genitourinary: Denies dysuria Musculoskeletal Musculoskeletal: Reports other Details: Denies pain Integumentary Integumentary: Reports dry skin; Denies jaundice, rash or wounds Neurologic Neurologic: Reports abnormal speech, confusion, dizziness, focal weakness and weakness; Denies headache(s), numbness or tremor(s) Hematologic/Lymphatic Hematologic/Lymphatic: Reports anemia Vital Signs Vital Signs Vital Signs: 01/29/22 10:00 01/29/22 14:29 01/29/22 20:01 Temperature Temperature Source Pulse Rate 82 Pulse Rate [Lying] Pulse Rate [Sitting (for 1 minute prior to obtaining)] Pulse Rate [Standing (for 1 minute prior to obtaining)] Respiratory Rate Respiratory Effort Normal Non-Labored Respiratory Depth Normal Respiratory Pattern Normal Blood Pressure 134/54 H Blood Pressure [Lying] Blood Pressure [Sitting (for 1 minute prior to obtaining)] Blood Pressure [Standing (for 1 minute prior to obtaining)] Blood Pressure Mean Blood Pressure Mean [Lying] Blood Pressure Mean [Sitting (for 1 minute prior to obtaining)] Blood Pressure Mean [Standing (for 1 minute prior to obtaining)] Blood Pressure Source Blood Pressure Position Blood Pressure Location Pulse Ox 96 Oxygen Delivery Method Room Air 01/29/22 19:45 01/29/22 19:45 01/30/22 07:39 Temperature 98.5 F 98.4 F Temperature Source Temporal Temporal Pulse Rate 82 82 70 Pulse Rate [Lying] Pulse Rate [Sitting (for 1 minute prior to obtaining)] Pulse Rate [Standing (for 1 minute prior to obtaining)] Respiratory Rate 17 17 16 Respiratory Effort Normal Non-Labored Respiratory Depth Normal Respiratory Pattern Normal Blood Pressure 134/54 H 112/47 L Blood Pressure [Lying] Blood Pressure [Sitting (for 1 minute prior to obtaining)] Blood Pressure [Standing (for 1 minute prior to obtaining)] Blood Pressure Mean 80 68 Blood Pressure Mean [Lying] Blood Pressure Mean [Sitting (for 1 minute prior to obtaining)] Blood Pressure Mean [Standing (for 1 minute prior to obtaining)] Blood Pressure Source Monitor Monitor Blood Pressure Position Sitting Supine Blood Pressure Location Right Arm Right Arm Pulse Ox 100 100 94 Oxygen Delivery Method Room Air Room Air 01/30/22 08:52 01/30/22 09:24 Temperature Temperature Source Pulse Rate 70 Pulse Rate [Lying] 70 Pulse Rate [Sitting (for 1 minute prior to obtaining)] 72 Pulse Rate [Standing (for 1 minute prior to obtaining)] 85 Respiratory Rate Respiratory Effort Respiratory Depth Respiratory Pattern Blood Pressure 112/47 L Blood Pressure [Lying] 112/47 L Blood Pressure [Sitting (for 1 minute prior to obtaining)] 99/43 L Blood Pressure [Standing (for 1 minute prior to obtaining)] 91/46 L Blood Pressure Mean Blood Pressure Mean [Lying] 68 Blood Pressure Mean [Sitting (for 1 minute prior to obtaining)] 61 Blood Pressure Mean [Standing (for 1 minute prior to obtaining)] 61 Blood Pressure Source Blood Pressure Position Blood Pressure Location Pulse Ox Oxygen Delivery Method Weight Weight: 97 lb 7.109 oz Body Mass Index (BMI) 19.0 Indicators for Scoring Admitted with or Primary Diagnosis of CVA/Stroke: Yes (01/19/22) Hx of CVA/Stroke: Yes Modified [place] Score MRS Score at time of Evaluation: 4-Moderate/severe disability NIHSS NIHSS 1a. Level of Consciousness: Alert; keenly responsive (Alert but, confused.) 1b. LOC Questions: Answers neither question correctly. 1c. LOC Commands: Performs both tasks correctly. 2. Best Gaze: Normal 3. Visual: No visual loss 4. Facial Palsy: Minor paralysis (flattened nasolabial fold, asymmetry on smiling) (mild left facial droop) 5a. Left Arm: No drift; arm holds 90 (or 45) degrees for full 10 seconds 5b. Right Arm: No drift; arm holds 90 (or 45) degrees for full 10 seconds 6a. Left Leg: No effort against gravity; leg falls to bed immediately 6b. Right Leg: No effort against gravity; leg falls to bed immediately (But she walked today with therapy. I think she is not understanding what I want her to do due to receptive aphasia.) 8. Sensory: Normal; no sensory loss 9. Best Language: [id number] aphasia; 10. Dysarthria: [id number] dysarthria; 11. Extinction and Inattention: Visual, tactile, auditory, spatial, or personal inattention Total: 12 Stroke Questions Stroke Team Activated: No Physical Exam Const alert Constitutional Narrative: Oriented to place (told me [facility]). Can not tell me the month, the year, how old she is. She is perseverating about her and what she told him but, then told me her is . General Appearance: cooperative HEENT normocephalic and head/scalp atraumatic Eyes PERRL and EOMs intact bilaterally Eyes Narrative: no visual loss. Neck supple and No nodes Resp normal respiratory effort Resp Narrative: Few coarse crackles in the bases, not tachypneic. Breathing is not labored. Cardio regular rate, regular rhythm, S1 normal heart sound, S2 normal heart sound, no murmurs and no gallops GI normal to inspection, nondistended, normoactive bowel sounds, soft to palpation and non-tender GI Narrative: No guarding Extremity normal capillary refill and no calf tenderness Extremity Narrative: She has increased tone in the R quadriceps. General Extremity: Negative for clubbing, cyanosis or edema Skin General Skin Exam: no breakdown Rashes: no rashes Neuro Neuro Narrative: see NIHSS Psych Psych Narrative: Confused, aphasic Results Lab / Micro Data Result Diagrams: 01/29/22 05:37 01/29/22 05:37 Assessment & Plan Assessment/Plan (1) Debility: (2) Acute ischemic cerebrovascular accident (CVA) involving middle cerebral artery territory: PLAN: R temporal lobe ischemic CVA, R basal ganglia ischemic CVA with hemorrhagic transformation, R cerebellar ischemic CVA. Strokes are embolic from PAF, not on anticoagulation due to hemoptysis 2 days after starting Eliquis in October 2021 (she had PNA at the time) and also heme + stool with no anemia. (3) Paroxysmal A-fib: PLAN: Will start anticoagulation on 02/16 if no contraindication and if there is a contraindication will need atrial appendage closure device per cardiology at [facility]. Continue ASA for now. Will check a hemoccult stool due to N/N anemia which is new. (4) Aphasia complicating stroke: PLAN: expressive + receptive (5) Left-sided weakness: (6) Facial droop due to acute cerebrovascular accident (CVA): (7) Dysphagia: (8) Dehydration, moderate: (9) Orthostatic hypotension: (10) Normochromic normocytic anemia: (11) LAE (left atrial enlargement): (12) Glucose intolerance (impaired glucose tolerance): (13) Atherosclerosis of coronary artery of [place] heart without angina pectoris: (14) Essential hypertension: (15) Hyperlipidemia: QUALIFIERS: Hyperlipidemia type: pure hypercholesterolemia Qualified Code(s): E78.00 - Pure hypercholesterolemia, unspecified; E78.0 - Pure hypercholesterolemia (16) Anxiety: (17) Hiatal hernia: (18) GERD (gastroesophageal reflux disease): PLAN: Plan PLAN PT for gait stability OT for ADL's ST for evaluation Analgesics as needed Bowel protocol Fall precautions Assess for Anxiety/Depression GI prophylaxis with Protonix 40 mg p.o. daily DVT prophylaxis with SCD's and ROBEL bearden Follow up with Dr. Shahid, neurology at [facility] and cardiology following DC from IP Rehab AM lab including CMP, CBC, Mag and Phos personally reviewed NS at 250cc/hr X 1 liter and then 75 cc/hr Check a hemoccult stool Recheck BMP and a HH in the AM Repeat orthostatics in the AM TSH and vitamin D levels recently normal Obtain a copy of the ECHO done at [facility].......the ECHO done at [facility] in Nov stated normal LA? also had normal RV size and systolic function and the PA was estimated at 33. TV was normal. Charges/Coding Visit Charges Inpatient E&M: 36501 Init Hosp L3
--- NOTE | 2022-01-30 11:49 | CASEMGMT ---
Addendum entered by Leila Whitley 01/30/22 14:15: Met with pt in room, introduced self and role. Pt has severe expressive and receptive aphasia. Unable to comprehend questions. Original Note: Social Work Per chart review, pt is having difficulty providing accurate PLOF and home set up. SW contacted dtr, AFUA Turner, to get answers. See SW assessment for details. SW educated to Team meetings, Medicare insurance - approved for 23 days with DC 02/20. Dtr asked questions about process and next steps with therapy and DC. Dtr wanting to get all information to prepare. SW educated to SNF Medicare benefit, skilled HHC, outpatient therapy, nonskilled HHC and all insurance coverage. Educated to this worker assisting family and pt will the insurance coverage and DC plans. Dtr expressed appreciation for information and assistance. SW to continue to follow for DC plans and support. Leila Whitley, WARD ATTENDANT FABRIC INSPECTOR
[2022-01-30] MEDS: Ensure Plus High Protein 120 ML LIQUID PO ×2 (14:42→17:16)
--- NOTE | 2022-01-30 15:41 | REHABEVAL_ITS ---
Admission Information Primary Diagnosis:: Debility due to multiple embolic CVA's with hemorrhagic conversion of the BG CVA. Status Changes from Prescreening?: No changes Identified Actual Problem List:: Cognitve Impr/Memory Loss, Bladder Incontinence, Mobility Impaired, Self Care Deficit, Ineffective Communication, BP, Hypotension, Fluid Change-Dehydration and Alteration-Leisure Activ. Potential Problem List:: DVT, Bleeding, Infection, UTI, Aspiration, Falls, Skin Integrity and Depression Risk of Complications DVT: ROBEL Hose and Sequential Compression Device Bleeding: Monitor Lab Values, Nursing to Teach Precautions for anti-coagulation therapy., Wound, if applicable, to be assessed every shift. and Stroke patients assessed for lethargy or change in status. Infection: Clinical Staff to Monitor for S/S of infection: and S/S of infection include fever, redness, warmth, etc. Urinary Tract Infection: Monitor for frequency, burning, discomfort, or incontinence. and Nursing will obtain urine sample for urinalysis and C&S when ordered. Aspiration: Clinical staff will monitor for coughing, drooling, congestion., Speech will evaluate swallowing and dsyphasia. and Nursing will monitor patient swallowing during meals. Falls: Patient will be evaluated for Fall Precautions and Patient will be placed on Fall Precautions as indicated per protocol. Skin Breakdown: Nursing will assess skin daily using assessment tool. and Nursing will place on Skin Breakdown Precautions as indicated. Pain: Clinical staff will assess patient's pain level per protocol., Medications will be given, if needed, and the pain level reassessed. and Other methods: Massage, distraction, decrease stimulus, etc. used PRN. Plan of Care Patient requires physician specializing in physical medicine and rehab oversight to provide close medical supervision of rehab issues including: Pain Management, Sleep Problems, Bowel and Bladder, Medical and co-morbidity Management, DVT prophylaxis, Rehabilitation Leadership and Coordination of treatment team Patient needs Physical Therapy: For a minimum of 1 hour and At least 5 out of 7 days Patient needs Physical Therapy to improve:: Mobility, Strengthening, Transfers, Stretching, ROM, Endurance, Stairs, Gait and Balance Patient needs Occupational Therapy: For a minimum of 1 hour and At least 5 out of 7 days Patient needs Occupational Therapy to improve ADL's incl.: Eating, Grooming, Bathing, Dressing, Toileting, Toilet transfers, Community Reintegration, Higher functioning activities, Household tasks, Adaptive Equipment, Splinting and Other activities as determined Patient requires speech therapy: For a minimum of 1 hour and At least 5 out of 7 days Patient requires speech therapy for: Swallowing, Cognition, Language Skills and Compensatory Strategies Patient requires 24/7 Rehabilitation Nursing for: Pain Issues, Identifying and preventing risk factors, Monitoring and reporting current medical conditions, Assisting with ambulation, transfer, and all ADL's, Teaching patients about disease process and medications, Family teaching, Providing safe environment, Bowel and Bladder Issues, Skin integrity and Medication Management Patient needs Triage Licensed Practical Nurse/ Case Management for: Discharge Planning, Arranging Home Equipment or Services and Family Interventions Patient needs Dietary and Nutrition Services for: Adequate Nutrition, Nutritional Supplements and Nutritional Education Goals Patient will remain: free from falls and or injury at time of discharge. Patient will perform bed mobility at: MOD I level of assist. Patient will complete transfers from bed to chair at: MOD I level of assist. Patient will ambulate: 100 feet, with LRD and - (750 feet with LRD @ QUIN[place]) Patient will complete upper body dressing at: MOD I level of assist. Patient will complete lower body dressing at: - (Contact-guard assist using assistive devices as needed) Patient will complete toileting at: - (Contact-guard assist) Patient will perform bathing at: - (CGA) Patient will complete grooming at: MOD I level of assist. Patient will complete home management skills at: MOD I level of assist. Patient will achieve: - (1 curb step) Patient will have pain level of: of 3 or less Patient's skin will: remain intact Patient will receive: adequate nutrition. Discharge Planning Pt Prognosis for Sig. Practical Improv. w/in Reasonable Time: Good Estimated Length of stay (days): 28 Anticipated D/C Destination: Home with Outpt Therapy (or possibly SNF depending on progress in acute rehab.) Was Preadmission Assessment Accurate?: Yes
[2022-01-30 16:05] VITALS: BMI 19.0
[2022-01-30] MEDS: 0.9% Normal Saline 1,000 ML 75 ML IV (17:12)
[2022-01-30 19:40] VITALS: BP 154/60; PULSE 83; RESP 16; TEMP 36.7; O2SAT 97
[2022-01-30 21:48] VITALS: BP 154/60; PULSE 83
[2022-01-30] MEDS: Metoprolol Tartrate 25 MG Tablet 12.5 MG PO (21:48)
[2022-01-30] MEDS: Mirtazapine 15 MG Tablet 7.5 MG PO (21:49)
[2022-01-30] MEDS: Atorvastatin Calcium 40 MG Tablet PO (21:53)
[2022-01-30] MEDS: MELATONIN 3 MG TABLET PO (21:54)
[2022-01-31 05:23] LABS: Hemoglobin 9.4 g/dL (12.0-15.0)
[2022-01-31 05:45] LABS: Anion Gap 5 (5-15); BUN 30 mg/dL (7-18); BUN/Creat Ratio 47.2 RATIO (10-20); Calcium,Total 8.5 mg/dL (8.5-10.1); Chloride 111 mmol/L (98-107); Creatinine, Serum 0.64 mg/dL (0.55-1.02); EST Glomerular Filtration Rate 96 mL/min (>60); Est Glom Filt Rate - Afr Amer 116 mL/min (>60); Estimated Creatinine Clearance 31.83 ml/min; Glucose 113 mg/dL (74-106); Potassium 3.8 mmol/L (3.5-5.1); Sodium Level 140 mmol/L (136-145)
[2022-01-31] MEDS: 0.9% Normal Saline 1,000 ML 75 ML IV ×2 (06:25→23:05)
[2022-01-31 06:43] VITALS: BP 103/58; BP 110/53; BP 128/56; PULSE 77; PULSE 79; PULSE 92
[2022-01-31 07:47] VITALS: BP 110/53; PULSE 79
[2022-01-31] MEDS: NYSTATIN 500,000 UNIT/5 ML UDC 500000 UNIT PO ×4 (07:47→22:29)
[2022-01-31] MEDS: Ensure Plus High Protein 120 ML LIQUID PO ×3 (07:47→17:16)
[2022-01-31] MEDS: Calcium Carb/Vitamin D 1 TABLET Tablet PO (07:47)
[2022-01-31] MEDS: Aspirin 81 MG TAB.CHEW PO (07:47)
[2022-01-31] MEDS: Metoprolol Tartrate 25 MG Tablet 12.5 MG PO ×2 (07:47→22:28)
[2022-01-31] MEDS: Multivitamins,Therapeutic Tablet 1 TABLET PO (07:48)
[2022-01-31] MEDS: Pantoprazole Sodium 40 MG Tablet PO (07:48)
[2022-01-31 08:45] VITALS: BP 109/60; PULSE 79; RESP 17; TEMP 36.7; O2SAT 94
[2022-01-31 15:39] VITALS: BMI 19.0
--- NOTE | 2022-01-31 15:59 | PCM.PROGNOTE ---
Subjective Subjective Afebrile VSS the heart rate was 79 bpm lying down and 92 bpm standing up. Blood pressure lying down today was 110/53 and standing up it is 128/56. Orthostatic hypotension has resolved with Lowering the Metoprolol dose and hydrating. Will run IV fluids for an additional 24 hours but, decrease the rate to 60 cc/hr. Will likely increase the Metoprolol again tomorrow to control HR if she goes into AF again. Maintaining appropriate oxygen saturation on RA Oral intake is improving. She took 1000 cc p.o. yesterday and had an additional 1500 cc of IV fluid. She ate 75 to 100% of her breakfast today and 50 to 74% of her lunch. She is incontinent of urine. Discussed with nursing - no problems that need addressed Reviewed the PT/OT/ST notes Medication list reviewed. All lab was personally reviewed. Hemoglobin is 9.4 today, down from 10.1 on 01/29/2022 but she was very dehydrated on the . Sodium is 140 and the potassium is 3.8. Serum bicarb is normal at 24. The BUN is 30, down from 44 on the and the creatinine today is 0.64, down from 0.82 on the . Objective Data Objective Data Vital Signs: Vital Signs Temp Pulse Resp BP Pulse Ox O2 Del Method 98.0 F 79 17 109/60 94 Room Air 01/31/22 08:45 01/31/22 08:45 01/31/22 08:45 01/31/22 08:45 01/31/22 08:45 01/31/22 08:45 Oxygen Delivery Method Room Air Weight: 97 lb 14.164 oz Body Mass Index (BMI) 19.0 Intake & Output: Intake and Output for Last 24 Hours 01/29/22 01/30/22 01/31/22 23:59 23:59 23:59 Intake Total 650 / 650 1500 / 1500 1431.25 / 1431.25 Balance 650 / 650 1500 / 1500 1431.25 / 1431.25 Lab / Micro Data Result Diagrams: 02/03/22 05:40 02/03/22 05:40 Labs: Laboratory Results - last 24 hr 01/31/22 05:17: Hgb 9.4 L, Hct 29.0 L 01/31/22 05:17: Sodium 140, Potassium 3.8, Chloride 111 H, Carbon Dioxide 24.0, Anion Gap 5, BUN 30 H, Creatinine 0.64, Estim Creat Clear Calc 31.83, Est GFR (MDRD) Af Amer 116, Est GFR (MDRD) Non-Af 96, BUN/Creatinine Ratio 47.2 H, Glucose 113 H, Calcium 8.5 Micro: Microbiology 01/30/22 19:00 Stool Stool Occult Blood (YANCI) - Final Occult Blood Positive Physical Exam Const alert and no apparent distress Constitutional Narrative: Oriented to person only. Tearful at times. 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 Apixaban is to start on 02/16/22. She is currently on ASA 81 mg daily. Stool is heme + and she is anemic. Would not start anticoagulation until she has been evaluated by GI. Will have her see Dr. Friend. 2. will need to discuss if an atrial appendage closure device is indicated AFTER we have results of GI eval. 3. Tolerating Remeron well and appetite and sleep have improved. Will continue and if no adverse SE in 7-10 days will likely increase the dose to 15 mg. 4. Continue therapy. I suspect aphasia is going to be her biggest bijan. Charges/Coding Visit Charges Inpatient E&M: 11936 Subs Hosp L2
[2022-01-31 21:45] VITALS: BP 144/63; PULSE 85; PULSE 88; RESP 18; TEMP 36.8; O2SAT 96; BMI 19.0
[2022-01-31 22:28] VITALS: BP 144/63; PULSE 85
[2022-01-31] MEDS: Mirtazapine 15 MG Tablet 7.5 MG PO (22:29)
[2022-01-31] MEDS: Atorvastatin Calcium 40 MG Tablet PO (22:34)
--- NOTE | 2022-02-01 04:43 | NURSING ---
Reviewed and agree with LPN. Isaac Jarquin, documentation and assessment charting.
[2022-02-01] MEDS: 0.9% Saline Lock 10 ML Syringe IV (07:01)
[2022-02-01] MEDS: Calcium Carb/Vitamin D 1 TABLET Tablet PO (08:37)
[2022-02-01] MEDS: Pantoprazole Sodium 40 MG Tablet PO (08:37)
[2022-02-01] MEDS: Aspirin 81 MG TAB.CHEW PO (08:37)
[2022-02-01] MEDS: NYSTATIN 500,000 UNIT/5 ML UDC 500000 UNIT PO ×4 (08:37→21:07)
[2022-02-01] MEDS: Multivitamins,Therapeutic Tablet 1 TABLET PO (08:37)
[2022-02-01 08:38] VITALS: BP 143/67; PULSE 72; RESP 16; TEMP 35.9; O2SAT 99
[2022-02-01] MEDS: Ensure Plus High Protein 120 ML LIQUID PO ×4 (08:39→21:09)
[2022-02-01 10:10] VITALS: BP 143/67; PULSE 72
[2022-02-01] MEDS: Metoprolol Tartrate 25 MG Tablet 12.5 MG PO ×2 (10:10→21:08)
[2022-02-01 12:25] VITALS: BMI 19.0
[2022-02-01] MEDS: 0.9% Normal Saline 1,000 ML 75 ML IV (15:46)
[2022-02-01 20:16] VITALS: BP 144/73; PULSE 77; RESP 16; TEMP 36.6; O2SAT 99
[2022-02-01] MEDS: Mirtazapine 15 MG Tablet 7.5 MG PO (21:07)
[2022-02-01] MEDS: MELATONIN 3 MG TABLET PO (21:07)
[2022-02-01 21:08] VITALS: BP 144/73; PULSE 77
[2022-02-01] MEDS: Atorvastatin Calcium 40 MG Tablet PO (21:09)
[2022-02-02 08:42] VITALS: BP 159/75; PULSE 80; RESP 15; TEMP 36.6; O2SAT 99
[2022-02-02] MEDS: Calcium Carb/Vitamin D 1 TABLET Tablet PO (08:45)
[2022-02-02] MEDS: Multivitamins,Therapeutic Tablet 1 TABLET PO (08:45)
[2022-02-02] MEDS: Aspirin 81 MG TAB.CHEW PO (08:45)
[2022-02-02] MEDS: NYSTATIN 500,000 UNIT/5 ML UDC 500000 UNIT PO ×4 (08:45→21:02)
[2022-02-02 08:46] VITALS: PULSE 80
[2022-02-02] MEDS: Metoprolol Tartrate 25 MG Tablet 12.5 MG PO ×2 (08:46→21:03)
[2022-02-02] MEDS: Pantoprazole Sodium 40 MG Tablet PO (08:47)
[2022-02-02] MEDS: Ensure Plus High Protein 120 ML LIQUID PO ×3 (08:47→17:20)
[2022-02-02] MEDS: 0.9% Normal Saline 1,000 ML 75 ML IV (09:51)
--- NOTE | 2022-02-02 15:51 | PCM.PROGNOTE ---
Subjective Subjective Afebrile VSS-systolic blood pressures are mildly above goal but the diastolic are below goal. Maintaining appropriate oxygen saturation on RA Oral intake of fluids is still poor. She took only 720 yesterday. She eats 50 to 75% of her breakfast and 75 to 100% of lunch and dinner. Remains incontinent of urine. Discussed with nursing - no problems that need addressed Reviewed the PT/OT/ST notes Medication list reviewed. She denies CP, SOB, epigastric pain But, I am not sure she even understands what I am asking her and I do not know how reliable the ROS is. Objective Data Objective Data Vital Signs: Vital Signs Temp Pulse Resp BP Pulse Ox O2 Del Method 97.9 F 80 15 159/75 H 99 Room Air 02/02/22 08:42 02/02/22 08:46 02/02/22 08:42 02/02/22 08:42 02/02/22 08:42 02/02/22 08:42 Oxygen Delivery Method Room Air Weight: 97 lb 14.164 oz Body Mass Index (BMI) 19.0 Intake & Output: Intake and Output for Last 24 Hours 01/31/22 02/01/22 02/02/22 23:59 23:59 23:59 Intake Total 2971.25 / 2971.25 1720 / 1720 1480 / 1480 Output Total 300 / 300 Balance 2971.25 / 2971.25 1420 / 1420 1480 / 1480 Lab / Micro Data Result Diagrams: 02/03/22 05:40 02/03/22 05:40 Micro: Microbiology 01/30/22 19:00 Stool Stool Occult Blood (YANCI) - Final Occult Blood Positive Physical Exam Const Constitutional Narrative: sleepy today......therapy wears her out and she naps after therapy. She arouses easily. HEENT Mouth: dry mucous membranes Resp clear to auscultation bilaterally Cardio regular rate, regular rhythm and no gallops GI normal to inspection, nondistended, normoactive bowel sounds, soft to palpation and non-tender GI Narrative: No guarding with palpation. 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 Continue therapy 2. Continue to encourage increased oral intake of fluids 3. Check an H&H and BMP in the a.m. 4. Continue IV fluids until her oral intake is greater than at least 1 L daily. 5. Check orthostatic vital signs in the a.m. and if she is not orthostatic and the systolic remains above 130 we will increase the antihypertensive regimen. 6. Continue Remeron. She has had no adverse side effects and her appetite has increased and so has her intake of food. Charges/Coding Visit Charges Inpatient E&M: 91488 Subs Hosp L2
[2022-02-02 17:00] VITALS: BMI 19.0
[2022-02-02 20:31] VITALS: BP 140/70; PULSE 77; RESP 17; TEMP 36.7; O2SAT 96
[2022-02-02] MEDS: Atorvastatin Calcium 40 MG Tablet PO (21:02)
[2022-02-02] MEDS: MELATONIN 3 MG TABLET PO (21:02)
[2022-02-02 21:03] VITALS: BP 140/70; PULSE 77
[2022-02-02] MEDS: Mirtazapine 15 MG Tablet 7.5 MG PO (21:03)
[2022-02-02 21:10] VITALS: O2SAT 96
[2022-02-03] MEDS: 0.9% Normal Saline 1,000 ML 75 ML IV ×2 (02:40→20:22)
[2022-02-03 05:49] LABS: Hematocrit 29.2 % (37-47); Hemoglobin 9.9 g/dL (12.0-15.0)
[2022-02-03 06:14] LABS: Anion Gap 8 (5-15); BUN 25 mg/dL (7-18); BUN/Creat Ratio 36.2 RATIO (10-20); Calcium,Total 8.2 mg/dL (8.5-10.1); Chloride 110 mmol/L (98-107); Creatinine, Serum 0.69 mg/dL (0.55-1.02); EST Glomerular Filtration Rate 87 mL/min (>60); Est Glom Filt Rate - Afr Amer 105 mL/min (>60); Estimated Creatinine Clearance 32.77 ml/min; Glucose 108 mg/dL (74-106); Potassium 3.9 mmol/L (3.5-5.1); Sodium Level 141 mmol/L (136-145)
[2022-02-03 07:19] VITALS: BP 144/54; PULSE 69; RESP 20; TEMP 37.1; O2SAT 96
[2022-02-03 08:14] VITALS: PULSE 69
[2022-02-03] MEDS: Pantoprazole Sodium 40 MG Tablet PO (08:14)
[2022-02-03] MEDS: Metoprolol Tartrate 25 MG Tablet 12.5 MG PO ×2 (08:14→21:32)
[2022-02-03] MEDS: Aspirin 81 MG TAB.CHEW PO (08:14)
[2022-02-03] MEDS: Calcium Carb/Vitamin D 1 TABLET Tablet PO (08:14)
[2022-02-03] MEDS: Multivitamins,Therapeutic Tablet 1 TABLET PO (08:14)
[2022-02-03] MEDS: Ensure Plus High Protein 120 ML LIQUID PO ×4 (08:15→21:34)
[2022-02-03] MEDS: NYSTATIN 500,000 UNIT/5 ML UDC 500000 UNIT PO ×4 (08:16→21:32)
[2022-02-03 08:37] VITALS: BP 133/55; BP 138/58; BP 140/50
[2022-02-03 12:51] VITALS: BMI 19.0
--- NOTE | 2022-02-03 12:59 | CASEMGMT ---
Social Work IDT met with patient, dtr and two sons for Team meeting. Discussed patient's progress in PT/OT/ST/SN. Educated to Medicare approval of 23 days with EDC 02/20. Pts goal is to DC home alone, however, family realistic to pt may needing short term skilled SNF stay for further therapy. SW offered list of SNFs. Family agreed. Emailed list to dtr to share with siblings. Along with SNF list with quality and resource data via [employer], SW also explained the Medicare coverage for a SNF. Family appreciative. SW to continue to follow. Will Reteam next week. Leila Whitley, CHEF MANAGER AIRPORT OPERATIONS OFFICER
[2022-02-03] MEDS: Acetaminophen 325 MG Tablet 650 MG PO (15:05)
--- NOTE | 2022-02-03 16:18 | PCM.PROGNOTE ---
Subjective Subjective Yoana was seen on team rounds today. Her family was present in the room. Afebrile VSS - BP is adequately controlled. Maintaining appropriate oxygen saturation on RA Oral intake is good for food and poor for fluids. Discussed with nursing - no problems that need addressed other than crying spells. Reviewed the PT/OT/ST notes Medication list reviewed. Having a lot of difficulty answering my Questions due to expressive and receptive aphasia. Frequently answering I don't know. Objective Data Objective Data Vital Signs: Vital Signs Temp Pulse Resp BP Pulse Ox O2 Del Method 98.7 F 69 20 H 138/58 H 96 Room Air 02/03/22 07:19 02/03/22 08:14 02/03/22 07:19 02/03/22 08:37 02/03/22 07:19 02/03/22 07:19 Oxygen Delivery Method Room Air Weight: 109 lb 5.588 oz Body Mass Index (BMI) 19.0 Intake & Output: Intake and Output for Last 24 Hours 02/01/22 02/02/22 02/03/22 23:59 23:59 23:59 Intake Total 1720 / 1720 2960 / 2960 360 / 360 Output Total 300 / 300 300 / 300 Balance 1420 / 1420 2960 / 2960 60 / 60 Lab / Micro Data Result Diagrams: 02/03/22 05:40 02/03/22 05:40 Labs: Laboratory Results - last 24 hr 02/03/22 05:40: Hgb 9.9 L, Hct 29.2 L 02/03/22 05:40: Sodium 141, Potassium 3.9, Chloride 110 H, Carbon Dioxide 23.0, Anion Gap 8, BUN 25 H, Creatinine 0.69, Estim Creat Clear Calc 32.77, Est GFR (MDRD) Af Amer 105, Est GFR (MDRD) Non-Af 87, BUN/Creatinine Ratio 36.2 H, Glucose 108 H, Calcium 8.2 L Micro: Microbiology 01/30/22 19:00 Stool Stool Occult Blood (YANCI) - Final Occult Blood Positive Physical Exam Const alert Constitutional Narrative: making eye contact with the therapists as they take turns giving their reports General Appearance: cooperative Resp normal respiratory effort, normal air movement and clear to auscultation bilaterally Resp Narrative: Diminished in the bases but, clear. No conversational dyspnea but, only speaking in 1-3 word phrases. Effort and Inspection: Negative for tachypneic Cardio regular rate and regular rhythm Cardio Narrative: rare early beat. 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 Continue therapy 2. Continue Remeron. 3. Continue Protonix. Will need a GI W/U prior to starting any anticoagulation for PAF. suspect she may benefit from a atrial appendage closure procedure. She has seen Dr. Davis in the past. 4. Recheck a HHGB next week. 5. Continue the IV fluids through the weekend. Charges/Coding Visit Charges Inpatient E&M: 79207 Subs Hosp L2
[2022-02-03 21:00] VITALS: BP 151/62; PULSE 62; RESP 17; TEMP 36.2; O2SAT 96; BMI 19.0
[2022-02-03 21:32] VITALS: BP 151/62; PULSE 62
[2022-02-03] MEDS: Atorvastatin Calcium 40 MG Tablet PO (21:32)
[2022-02-03] MEDS: Mirtazapine 15 MG Tablet 7.5 MG PO (21:34)
[2022-02-04] MEDS: NYSTATIN 500,000 UNIT/5 ML UDC 500000 UNIT PO ×4 (08:08→23:09)
[2022-02-04 08:09] VITALS: PULSE 75
[2022-02-04] MEDS: Calcium Carb/Vitamin D 1 TABLET Tablet PO (08:09)
[2022-02-04] MEDS: Aspirin 81 MG TAB.CHEW PO (08:09)
[2022-02-04] MEDS: Ensure Plus High Protein 120 ML LIQUID PO ×4 (08:09→23:10)
[2022-02-04] MEDS: Metoprolol Tartrate 25 MG Tablet 12.5 MG PO ×2 (08:09→23:09)
[2022-02-04] MEDS: Multivitamins,Therapeutic Tablet 1 TABLET PO (08:09)
[2022-02-04] MEDS: Pantoprazole Sodium 40 MG Tablet PO (08:09)
[2022-02-04 09:19] VITALS: BP 147/62; PULSE 77; RESP 16; TEMP 36.8; O2SAT 97
[2022-02-04 19:35] VITALS: BP 143/62; PULSE 72; RESP 18; TEMP 36.6; O2SAT 96
[2022-02-04 23:03] VITALS: BP 152/62; PULSE 82
[2022-02-04] MEDS: Mirtazapine 15 MG Tablet 7.5 MG PO (23:05)
[2022-02-04 23:09] VITALS: BP 152/62; PULSE 82
[2022-02-04] MEDS: MELATONIN 3 MG TABLET PO (23:09)
[2022-02-04] MEDS: Atorvastatin Calcium 40 MG Tablet PO (23:11)
[2022-02-04] MEDS: 0.9% Saline Lock 10 ML Syringe IV (23:12)
[2022-02-05 08:08] VITALS: BP 137/61; PULSE 77; RESP 18; TEMP 37; O2SAT 95
[2022-02-05] MEDS: Aspirin 81 MG TAB.CHEW PO (08:28)
[2022-02-05] MEDS: Multivitamins,Therapeutic Tablet 1 TABLET PO (08:28)
[2022-02-05] MEDS: Calcium Carb/Vitamin D 1 TABLET Tablet PO (08:28)
[2022-02-05] MEDS: Pantoprazole Sodium 40 MG Tablet PO (08:29)
[2022-02-05] MEDS: NYSTATIN 500,000 UNIT/5 ML UDC 500000 UNIT PO ×4 (08:29→20:38)
[2022-02-05 08:30] VITALS: PULSE 77
[2022-02-05] MEDS: Metoprolol Tartrate 25 MG Tablet 12.5 MG PO ×2 (08:30→20:38)
[2022-02-05] MEDS: Ensure Plus High Protein 120 ML LIQUID PO ×2 (08:32→20:39)
[2022-02-05 17:00] VITALS: BMI 19.0
[2022-02-05 19:09] VITALS: BP 132/63; PULSE 72; RESP 16; TEMP 36.6; O2SAT 97
[2022-02-05] MEDS: 0.9% Saline Lock 10 ML Syringe IV (20:34)
[2022-02-05] MEDS: Mirtazapine 15 MG Tablet 7.5 MG PO (20:37)
[2022-02-05 20:38] VITALS: BP 132/63; PULSE 72
[2022-02-05] MEDS: MELATONIN 3 MG TABLET PO (20:38)
[2022-02-05] MEDS: Atorvastatin Calcium 40 MG Tablet PO (20:39)
[2022-02-06 08:10] VITALS: BP 120/63; PULSE 71
[2022-02-06] MEDS: Aspirin 81 MG TAB.CHEW PO (08:10)
[2022-02-06] MEDS: Calcium Carb/Vitamin D 1 TABLET Tablet PO (08:10)
[2022-02-06] MEDS: Metoprolol Tartrate 25 MG Tablet 12.5 MG PO ×2 (08:10→20:12)
[2022-02-06] MEDS: Multivitamins,Therapeutic Tablet 1 TABLET PO (08:10)
[2022-02-06] MEDS: Pantoprazole Sodium 40 MG Tablet PO (08:10)
[2022-02-06 08:11] VITALS: BP 120/63; PULSE 71; RESP 20; TEMP 36.9; O2SAT 96
[2022-02-06] MEDS: Ensure Plus High Protein 120 ML LIQUID PO ×3 (08:11→17:19)
[2022-02-06] MEDS: NYSTATIN 500,000 UNIT/5 ML UDC 500000 UNIT PO ×4 (08:17→20:13)
[2022-02-06 09:00] VITALS: BMI 19.0
--- NOTE | 2022-02-06 10:35 | CASEMGMT ---
Social Work Telephone call received from patient daughter, Yue Hunter. Yue calling back in regards to choices for chcf home at time of discharge if patient is unable to return to home. Yue reports that first option is the Transitional Care Unit at [facility]. This social work job titles to place patient on list per Yue's request. Yue also inquired about environmental services aide list. Yue request for environmental services aide list to be e-mailed to [email or web address]. This social work job titles e-mailed list. Yue with no further questions. Telephone call to Debby BORJA. Patient placed on list with anticipated discharge from Rehab on 02/20/22 and admit to TCU as needed. Social Work to continue to follow. Ryan ROBERT, J LUIS
[2022-02-06] MEDS: 0.9% Saline Lock 10 ML Syringe IV (16:32)
--- NOTE | 2022-02-06 18:30 | PN_ITS ---
Subjective Subjective Afebrile VSS Maintaining appropriate oxygen saturation on RA Oral intake is good-she took 1790 p.o. yesterday and has had 1160 and so far today. Discussed with nursing - no problems that need addressed Reviewed the PT/OT/ST notes She is more steady with a walker now and loses her balance less. Medication list reviewed. Yoana was sitting in the dark when I entered her room today. She looks very depressed and is always bringing up her . she did very well with therapy today. We discussed plans for DC. She realizes she can not go home and likely will always need some help going forward so living independently is likely not in the realm of possibility. She does not seem upset by this. Having sig nificant problem with speech apraxia and is frustrated at not being able to say what she wants to. Says I don't know a lot Yoana denies chest pain, cough, shortness of breath, nausea, vomiting, abdominal pain, diarrhea, dysuria, calf tenderness and lightheadedness. Objective Data Objective Data Vital Signs: Vital Signs Temp Pulse Resp BP Pulse Ox O2 Del Method 98.4 F 71 20 H 120/63 96 Room Air 02/06/22 08:11 02/06/22 08:11 02/06/22 08:11 02/06/22 08:11 02/06/22 08:11 02/06/22 08:11 Oxygen Delivery Method Room Air Weight: 99 lb 6.856 oz Body Mass Index (BMI) 19.0 Intake & Output: Intake and Output for Last 24 Hours 02/04/22 02/05/22 02/06/22 23:59 23:59 23:59 Intake Total 3140 / 3140 1790 / 1790 1160 / 1160 Output Total 0 / 0 Balance 3140 / 3140 1790 / 1790 1160 / 1160 Lab / Micro Data Result Diagrams: 02/03/22 05:40 02/03/22 05:40 Micro: Microbiology 01/30/22 19:00 Stool Stool Occult Blood (YANCI) - Final Occult Blood Positive Physical Exam Const alert Constitutional Narrative: still with severe expressive aphasia/apraxia. Also has receptive aphasia......a ble to follow some of my simple commands.....about 50%. Crying at times but, has also been smiling and interacting with the therapists. General Appearance: cooperative HEENT normocephalic and head/scalp atraumatic Mouth: dry mucous membranes Eyes PERRL and EOMs intact bilaterally Resp normal respiratory effort and clear to auscultation bilaterally Effort and Inspection: Negative for tachypneic, respiratory distress or labored GI normal to inspection, nondistended, normoactive bowel sounds, soft to palpation and non-tender GI Narrative: No guarding with palpation. Skin General Skin Exam: no breakdown Rashes: no rashes Neuro Neuro Narrative: very mild R facial weakness.......when she smiles I can see more teeth on the le ft side. Psych Psych Narrative: Still tearful at times but, also smiling with the therapists. Appearance: appropriate Attitude: No agitated Activity / Motor Behavior: Negative for restless Mood & Affect: depressed Assessment & Plan Assessment/Plan (1) Debility: PLAN: Continue therapy. She is making good progress. 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 S/P thrombectomy at [facility]. More likely than not due to PAF. Not currently on anticoagulation and she has heme + stool. (3) Left-sided weakness: PLAN: Doing better with ambulation. (4) Aphasia complicating stroke: (5) Paroxysmal A-fib: PLAN: Will need a GI W/U prior to starting any anticoagulation. She denies epigastric pain and has had no nausea. She is on Protonix 40 mg daily and will continue. (6) Dehydration, moderate: PLAN: We stopped IV fluids to see if it would encourage her to increase her fluid intake. She took 1160 yesterday. (7) Normochromic normocytic anemia: PLAN: anemia I suspect is due to GI blood loss. HGB is stable for now. (8) Anxiety with depression: PLAN: She is tolerating the Remeron 7.5 mg and has been taking it since the . Will increase the dose to 15 mg daily. (9) Positive occult stool blood test: PLAN: GI eval as an OP. Charges/Coding Visit Charges Inpatient E&M: 54277 Subs Hosp L2
[2022-02-06 19:43] VITALS: BP 121/56; PULSE 75; RESP 18; TEMP 36.8; O2SAT 93
[2022-02-06] MEDS: Acetaminophen 325 MG Tablet 650 MG PO (20:11)
[2022-02-06 20:12] VITALS: BP 121/56; PULSE 85
[2022-02-06] MEDS: Atorvastatin Calcium 40 MG Tablet PO (20:12)
[2022-02-06] MEDS: MELATONIN 3 MG TABLET PO (20:13)
[2022-02-06] MEDS: Mirtazapine 15 MG Tablet 7.5 MG PO (20:13)
[2022-02-07 07:29] VITALS: BP 152/54; PULSE 74; RESP 16; TEMP 37.2; O2SAT 96
[2022-02-07 07:59] VITALS: PULSE 74
[2022-02-07] MEDS: Calcium Carb/Vitamin D 1 TABLET Tablet PO (07:59)
[2022-02-07] MEDS: Multivitamins,Therapeutic Tablet 1 TABLET PO (07:59)
[2022-02-07] MEDS: Pantoprazole Sodium 40 MG Tablet PO (07:59)
[2022-02-07] MEDS: NYSTATIN 500,000 UNIT/5 ML UDC 500000 UNIT PO ×4 (07:59→21:08)
[2022-02-07] MEDS: Aspirin 81 MG TAB.CHEW PO (07:59)
[2022-02-07] MEDS: Metoprolol Tartrate 25 MG Tablet 12.5 MG PO ×2 (07:59→21:08)
[2022-02-07] MEDS: Ensure Plus High Protein 120 ML LIQUID PO ×3 (12:59→21:10)
[2022-02-07 13:48] VITALS: BMI 19.0
--- NOTE | 2022-02-07 15:02 | PN_ITS ---
Subjective Subjective Afebrile VSS - BP is within goal. HR is WNL Maintaining appropriate oxygen saturation on RA Oral intake is good Discussed with nursing - no problems that need addressed Reviewed the PT/OT/ST notes - Yoana is very cooperative and is making good progress. Having some L knee pain when doing 3 steps today. She used 2 HR's and is min-mod assist of 1. She ambulated 60' today with a step through pattern. Medication list reviewed. When I entered her room she was sitting in a recliner with the drapes open and t he blinds up. She smiled at me and then got a little tearful at the end of my time with her. She denies WYNN, lightheadedness, nausea, abd pain, dysuria and calf pain. She does not appear to be in any distress. she could not tell me what she had to eat for breakfast. She ate 75-100% of her breakfast and lunch today. Objective Data Objective Data Vital Signs: Vital Signs Temp Pulse Resp BP Pulse Ox O2 Del Method 98.9 F 74 16 152/54 H 96 Room Air 02/07/22 07:29 02/07/22 07:59 02/07/22 07:29 02/07/22 07:29 02/07/22 07:29 02/07/22 07:29 Oxygen Delivery Method Room Air Weight: 99 lb 6.856 oz Body Mass Index (BMI) 19.0 Intake & Output: Intake and Output for Last 24 Hours 02/05/22 02/06/22 02/07/22 23:59 23:59 23:59 Intake Total 1790 / 1790 1160 / 1160 480 / 480 Output Total 0 / 0 420 / 420 Balance 1790 / 1790 1160 / 1160 60 / 60 Lab / Micro Data Result Diagrams: 02/03/22 05:40 02/03/22 05:40 Micro: Microbiology 01/30/22 19:00 Stool Stool Occult Blood (YANCI) - Final Occult Blood Positive Physical Exam Const alert Constitutional Narrative: Oriented to person. Can not tell me the month or the year or the name of this place. she is still perseverating. When I give her a command and she does it appropriately if I give her another command she repeats what I asked her the first time. Frustrated when she can not get her words out. Does better with automatisms. General Appearance: cooperative HEENT normocephalic and head/scalp atraumatic Mouth: dry mucous membranes Eyes PERRL and EOMs intact bilaterally Eyes Narrative: sclera is clear and there is no DC from the eyes. Neck supple Lymph Lymphatic: Negative for lymphadenopathy Resp normal respiratory effort and clear to auscultation bilaterally Resp Narrative: somewhat diminished throughout. Effort and Inspection: Negative for tachypneic or respiratory distress Cardio regular rate, regular rhythm and no gallops Cardio Narrative: Occasional ectopic GI normal to inspection, nondistended, normoactive bowel sounds and soft to palpation GI Narrative: No guarding with palpation. Extremity no calf tenderness General Extremity: Negative for edema Skin General Skin Exam: no breakdown Rashes: no rashes Neuro Neuro Narrative: Getting stronger on her left side. Very mild facial droop on the R. 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 Continue therapy - she is making good progress. 2. Recheck a CBC, BMP and PT, PTT in the AM 3. Continue Protonix 4. Consult Dr. Sanon for GI evaluation. She is supposed to be starting Eliquis on 02/16/22 but, I need to know why her stool is heme + before I start anticoagulating her. She is anemic and HGB has decreased since admission. 5. Remeron increased to 15 mg Q HS Charges/Coding Visit Charges Inpatient E&M: 56602 Subs Hosp L2
[2022-02-07] MEDS: Acetaminophen 325 MG Tablet 650 MG PO (16:50)
--- NOTE | 2022-02-07 17:13 | PCM.CONS.GEN ---
Assessment & Plan Assessment/Plan (1) GERD (gastroesophageal reflux disease): PLAN: She has a history of gastroesophageal reflux disease with possible erosive esophagitis that could be contributing to her anemia and it also can be contributing to her heme positive stools. She is on PPI therapy. I would continue that. (2) Hiatal hernia: PLAN: In the setting of a hiatal hernia she is at risk for Jono's erosions in chronic anemia secondary to bleeding and upper GI tract. She should have an upper endoscopy to evaluate her upper GI tract (3) Positive occult stool blood test: PLAN: . Positive occult blood test in the setting of a history of duodenitis seen on previous upper endoscopy 2014 and with a history of melanotic stool. That does increase her risk of having a duodenal ulcer. I have talked with her daughters extensively and they have agreed for her to have an upper endoscopy to see if it is safe for her to go on anticoagulation. I told them if we did not find anything in her upper GI tract she will need to then have a colonoscopy and possible capsule endoscopy. HPI Consult Data Date of Consult: 02/07/22 HPI Narrative Reason for Consultation: Anemia HPI Narrative: ALTA MAYA, is a 81 F who presents for rehabilitation after suffering in acute cerebral accident. On 01/19/2022 she presented to the hospital with facial droop and slurred speech. ? A noncontrast brain CT showed findings suggestive of acute infarct involving the right basal ganglia with probable thrombus in the right middle cerebral artery.? CTA was obtained and showed occlusion of the right middle cerebral artery branch just distal to its origin with reconstitution of the M2 segments and the arteries in the right sylvian fissure.? Significant lab included an elevated high-sensitivity troponin at 3300.? EKG at arrival to the emergency department showed normal sinus rhythm.? Dr[facility] for [facility].? When she arrived at [facility] the NIH was 11.? She was taken to the OR for thrombectomy and received TICI 3 revascularization.? MRI at [facility] showed small acute R cerebellar stroke with hemorrhagic conversion.? Repeat noncontrast CT head on 01/22/2022 showed continued evolution of right basal ganglia infarct ,a R temporal lobe infarct and a R cerebellar infarct.? there was hemorrhagic transformation of the R basal ganglia infacrt present that was stable.? transthoracic echocardiogram showed an EF of 60 to 65% with severe left atrial enlargement.? ? Recommendations at discharge included aspirin 81 mg daily until anticoagulation was initiated.? Anticoagulation with Eliquis is to start 1 month post stroke on 02/16/2022.? Recommendations from cardiology included rate control with a goal less than 80 bpm, noninvasive management of CAD and anticoagulation if/when able from a medical/stroke perspective.? If for some reason she cannot be anticoagulated they recommend a left atrial appendage occlusion procedure. In October she was seen in the hospital and she was noted to be in atrial fibrillation with a rapid ventricular response rate. She also had a pneumonia.? She was placed on Eliquis and 2 days later she presented with hemoptysis.? The Eliquis was discontinued.? She further presented approximately 4 days later with black tarry stools.? She had also complained of dyspnea and mild chest pain midsternal.? I was asked to see her to see if it would be safe to initiate anticoagulation. ON LICENSE OF [facility] Medical History (Updated 02/07/22 @ 14:[address] Paulette Cortez, ) Acute coronary syndrome Arthritis Atherosclerosis of coronary artery of [place] heart without angina pectoris Atrial fibrillation Cardiology follow-up encounter Cholelithiasis Dyspnea Essential hypertension GERD (gastroesophageal reflux disease) GIB (gastrointestinal bleeding) Hiatal hernia History of hiatal hernia History of renal disease History of stress test Hyperlipidemia IBS (irritable bowel syndrome) Irregular heart beat Kidney stones Leg cramps Migraine headache New onset atrial fibrillation (11/07/21) Non-smoker Osteoporosis Other chronic sinusitis Paroxysmal A-fib Pneumonia Polyp of nasal cavity Shingles Stroke/cerebrovascular accident Wears glasses Wears hearing aid Home Medications simvastatin 40 mg tablet 40 mg PO QHS Cholesterol 06/14/14 [History Last Taken 04/14/17] calcium carbonate 600 mg-vitamin D3 20 mcg (800 unit) tablet 1 ea PO DAILY Vitamin supplement 04/15/17 [History Last Taken 04/14/17] multivitamin 1 tab PO DAILY Vitamin 04/15/17 [History Last Taken 04/14/17] melatonin 3 mg capsule 3 mg PO HS sleep 11/18/21 [History Last Taken Unknown] mirtazapine 7.5 mg tablet 7.5 mg PO QHS sleep 11/18/21 [History Last Taken Unknown] pantoprazole 40 mg tablet,delayed release (Protonix) 40 mg PO DAILY stomach 90 days #90 tabs 11/18/21 [History Last Taken Unknown] aspirin 81 mg tablet,delayed release 81 mg PO DAILY anti platlets 01/28/22 [History Last Taken Unknown] metoprolol tartrate 50 mg tablet 25 mg PO BID heart 01/28/22 [History Last Taken Unknown] Allergy/AdvReac Type Severity Reaction Status Date / Time ranolazine [From Ranexa] AdvReac Severe low urine Verified 01/28/22 20:55 output, rash oseltamivir [From Tamiflu] AdvReac Unknown Verified 01/28/22 20:55 Family History Father CAD (coronary artery disease) CVA (cerebral vascular accident) Hypertension Mother Hypertension Brother Hypertension Sister Diabetes Other Heart disease Surgical History H/O sinus surgery History of cataract surgery History of left heart catheterization (04/16/17) History of tonsillectomy Social History household members: none Smoking Status: Never smoker substance use type: does not use ROS Review of Systems ROS Unobtainable: other Details: ROS limited by receptive and expressive aphasia. Constitutional Constitutional: Reports other Details: Looks like she has lost about 3 lbs since October. I suspect the weight from the ED on 01/19/22 is not accurate and they may have asked her what she weighed. Eyes Eyes: Denies blurry vision, change in vision, discharge from eye(s), erythema, irritation or itchy eyes ENT HEENT: Reports dysphagia Cardiovascular Cardiovascular: Denies chest pain Respiratory/Chest Respiratory/Chest: Denies shortness of breath at rest Gastrointestinal Gastrointestinal: Denies abdominal pain, constipation or nausea Genitourinary Genitourinary: Denies dysuria Musculoskeletal Musculoskeletal: Reports other Details: Denies pain Integumentary Integumentary: Reports dry skin; Denies jaundice, rash or wounds Neurologic Neurologic: Reports abnormal speech, confusion, dizziness, focal weakness and weakness; Denies headache(s), numbness or tremor(s) Hematologic/Lymphatic Hematologic/Lymphatic: Reports anemia Physical Exam Const alert Constitutional Narrative: Oriented to place (told me [facility]). General Appearance: cooperative HEENT normocephalic and head/scalp atraumatic Eyes PERRL and EOMs intact bilaterally Eyes Narrative: no visual loss. Neck supple and No nodes Resp normal respiratory effort Resp Narrative: Few coarse crackles in the bases, not tachypneic. Breathing is not labored. Cardio regular rate, regular rhythm, S1 normal heart sound, S2 normal heart sound, no murmurs and no gallops GI normal to inspection, nondistended, normoactive bowel sounds, soft to palpation and non-tender GI Narrative: No guarding Extremity normal capillary refill and no calf tenderness Extremity Narrative: She has increased tone in the R quadriceps. General Extremity: Negative for clubbing, cyanosis or edema Skin General Skin Exam: no breakdown Rashes: no rashes Neuro Neuro Narrative: see NIHSS Psych Psych Narrative: Confused, aphasic Lab / Micro Data Result Diagrams: 02/03/22 05:40 02/03/22 05:40 Charges/Coding Visit Charges Inpatient E&M: 15945 SNF Init L2
[2022-02-07 20:00] VITALS: BP 142/58; PULSE 75; RESP 18; TEMP 36.4; O2SAT 97
[2022-02-07 21:05] VITALS: O2SAT 97
[2022-02-07 21:08] VITALS: BP 142/58; PULSE 75
[2022-02-07] MEDS: MELATONIN 3 MG TABLET PO (21:08)
[2022-02-07] MEDS: Mirtazapine 15 MG Tablet PO (21:09)
[2022-02-07] MEDS: Atorvastatin Calcium 40 MG Tablet PO (21:09)
[2022-02-08] VITALS (10 sets, daily range): BP systolic 107–184; BP diastolic 51–83; PULSE 74–115; RESP 16–17; TEMP 36.3–36.7; O2SAT 93–96; BMI 19.0
[2022-02-08] MEDS: Acetaminophen 325 MG Tablet 650 MG PO (00:04)
--- NOTE | 2022-02-08 00:09 | NURSING ---
Pt c/o generalized pain, unable to give number, given Tylenol then water taken away for NPO after Midnight order.
[2022-02-08 05:49] LABS: Hematocrit 31.9 % (37-47); Hemoglobin 10.1 g/dL (12.0-15.0); Mean Corp Hgb Conc 31.7 g/dL (32-36); Mean Corpuscular Hgb 30.6 pg (27.0-32.0); Mean Corpuscular Volume 96.7 fL (81-99); Mean Platelet Vol. 8.9 fl (6.2-12.0); Platelet Count 364 K/mm3 (150-450); RBC Distribution Width CV 13.9 % (11.6-14.6); RBC Distribution Width SD 49.4 fl (35.1-43.9); White Blood Count 12.3 K/mm3 (4.4-11.0)
[2022-02-08 06:02] LABS: International Normalized Ratio 1.1
[2022-02-08 06:03] LABS: Partial Thromboplast Time 23.7 Seconds (24.1-36.2)
[2022-02-08 06:13] LABS: Anion Gap 5 (5-15); BUN 44 mg/dL (7-18); BUN/Creat Ratio 50.5 RATIO (10-20); Calcium,Total 9.1 mg/dL (8.5-10.1); Chloride 107 mmol/L (98-107); Creatinine, Serum 0.87 mg/dL (0.55-1.02); EST Glomerular Filtration Rate 67 mL/min (>60); Est Glom Filt Rate - Afr Amer 81 mL/min (>60); Estimated Creatinine Clearance 37.33 ml/min; Glucose 117 mg/dL (74-106); Potassium 4.3 mmol/L (3.5-5.1); Sodium Level 141 mmol/L (136-145)
[2022-02-08] MEDS: Lactated Ringers 1,000 ML 15 ML IV (11:00)
--- NOTE | 2022-02-08 12:06 | HP.PCM_ITS ---
History and Physical Date of Admission: 02/08/22 Assessment & Plan Assessment/Plan (1) GERD (gastroesophageal reflux disease): PLAN: She has a history of gastroesophageal reflux disease with possible erosive esophagitis that could be contributing to her anemia and it also can be contributing to her heme positive stools.? She is on PPI therapy.? I would continue that. (2) Hiatal hernia: PLAN: In the setting of a hiatal hernia she is at risk for Jono's erosions in chronic anemia secondary to bleeding and upper GI tract.? She should have an upper endoscopy to evaluate her upper GI tract (3) Positive occult stool blood test: PLAN: .? Positive occult blood test in the setting of a history of duodenitis seen on previous upper endoscopy 2014 and with a history of melanotic stool.? That does increase her risk of having a duodenal ulcer.? I have talked with her daughters extensively and they have agreed for her to have an upper endoscopy to see if it is safe for her to go on anticoagulation.? I told them if we did not find anything in her upper GI tract she will need to then have a colonoscopy and possible capsule endoscopy. HPI Consult Data Date of Consult: 02/07/22 HPI Narrative Reason for Consultation: Anemia HPI Narrative: ALTA MAYA, is a 81 F who presents for rehabilitation after suffering in acute cerebral accident.? On 01/19/2022 she presented to the hospital with facial droop and slurred speech. ? A noncontrast brain CT showed findings suggestive of acute infarct involving the right basal ganglia with probable thrombus in the right middle cerebral artery.? ?CTA was obtained and showed occlusion of the right middle cerebral artery branch just distal to its origin with reconstitution of the M2 segments and the arteries in the right sylvian fissure.? Significant lab included an elevated high-sensitivity troponin at 3300.? EKG at arrival to the emergency department showed normal sinus rhythm.? [facility].? When she arrived [facility] the NIH was 11.? She was taken to the OR for thrombectomy and received TICI 3 revascularization.? MRI at [facility] showed small acute R cerebellar stroke with hemorrhagic conversion.? Repeat noncontrast CT head on 01/22/2022 showed continued evolution of right basal ganglia infarct ,a R temporal lobe infarct and a R cerebellar infarct.? there was hemorrhagic transformation of the R basal ganglia infacrt present that was stable.? transthoracic echocardiogram showed an EF of 60 to 65% with severe left atrial enlargement.? ? Recommendations at discharge included aspirin 81 mg daily until anticoagulation was initiated.? Anticoagulation with Eliquis is to start 1 month post stroke on 02/16/2022.? ?Recommendations from cardiology included rate control with a goal less than 80 bpm, noninvasive management of CAD and anticoagulation if/when able from a medical/stroke perspective.? If for some reason she cannot be anticoagulated they recommend a left atrial appendage occlusion procedure. In October she was seen in the hospital and she was noted to be in atrial fibrillation with a rapid ventricular response rate. She also had a pneumonia.? She was placed on Eliquis and 2 days later she presented with hemoptysis.? The Eliquis was discontinued.? She further presented approximately 4 days later with black tarry stools.? She had also complained of dyspnea and mild chest pain midsternal.? I was asked to see her to see if it would be safe to initiate anticoagulation. [facility] Medical History?(Updated 02/07/22 @ 14:[address] Paulette Cortez, ) Acute coronary syndrome Arthritis Atherosclerosis of coronary artery of [place] heart without angina pectoris Atrial fibrillation Cardiology follow-up encounter Cholelithiasis Dyspnea Essential hypertension GERD (gastroesophageal reflux disease) GIB (gastrointestinal bleeding) Hiatal hernia History of hiatal hernia History of renal disease History of stress test Hyperlipidemia IBS (irritable bowel syndrome) Irregular heart beat Kidney stones Leg cramps Migraine headache New onset atrial fibrillation (11/07/21) Non-smoker Osteoporosis Other chronic sinusitis Paroxysmal A-fib Pneumonia Polyp of nasal cavity Shingles Stroke/cerebrovascular accident Wears glasses Wears hearing aid Home Medications simvastatin 40 mg tablet 40 mg PO QHS Cholesterol 06/14/14 [History Last Taken 04/14/17] calcium carbonate 600 mg-vitamin D3 20 mcg (800 unit) tablet 1 ea PO DAILY Vitamin supplement 04/15/17 [History Last Taken 04/14/17] multivitamin 1 tab PO DAILY Vitamin 04/15/17 [History Last Taken 04/14/17] melatonin 3 mg capsule 3 mg PO HS sleep 11/18/21 [History Last Taken Unknown] mirtazapine 7.5 mg tablet 7.5 mg PO QHS sleep 11/18/21 [History Last Taken Unknown] pantoprazole 40 mg tablet,delayed release (Protonix) 40 mg PO DAILY stomach 90 days #90 tabs 11/18/21 [History Last Taken Unknown] aspirin 81 mg tablet,delayed release 81 mg PO DAILY anti platlets 01/28/22 [History Last Taken Unknown] metoprolol tartrate 50 mg tablet 25 mg PO BID heart 01/28/22 [History Last Taken Unknown] Allergy/AdvReac Type Severity Reaction Status Date / Time ranolazine [From Ranexa] AdvReac Severe low urine Verified 01/28/22 20:55 ? ? ? output, ? rash ? ? oseltamivir [From Tamiflu] AdvReac ? Unknown Verified 01/28/22 20:55 Family History? Father CAD (coronary artery disease) CVA (cerebral vascular accident) HypertensionMother HypertensionBrother HypertensionSister DiabetesOther Heart disease Surgical History? H/O sinus surgery History of cataract surgery History of left heart catheterization (04/16/17) History of tonsillectomy Social History? household members:? none Smoking Status:? Never smoker substance use type:? does not use ROS Review of Systems ROS Unobtainable: other Details: ROS limited by receptive and expressive aphasia. Constitutional Constitutional: Reports other Details: Looks like she has lost about 3 lbs since October.? I suspect the weight from the ED on 01/19/22 is not accurate and they may have asked her what she weighed. Eyes Eyes: Denies blurry vision, change in vision, discharge from eye(s), erythema, irritation or itchy eyes ENT HEENT: Reports dysphagia Cardiovascular Cardiovascular: Denies chest pain Respiratory/Chest Respiratory/Chest: Denies shortness of breath at rest Gastrointestinal Gastrointestinal: Denies abdominal pain, constipation or nausea Genitourinary Genitourinary: Denies dysuria Musculoskeletal Musculoskeletal: Reports other Details: Denies pain Integumentary Integumentary: Reports dry skin; Denies jaundice, rash or wounds Neurologic Neurologic: Reports abnormal speech, confusion, dizziness, focal weakness and weakness; Denies headache(s), numbness or tremor(s) Hematologic/Lymphatic Hematologic/Lymphatic: Reports anemia Physical Exam Const alert Constitutional Narrative: Oriented to place (told me [facility]). ? General Appearance: cooperative HEENT normocephalic and head/scalp atraumatic Eyes PERRL and EOMs intact bilaterally Eyes Narrative: no visual loss. Neck supple and No nodes Resp normal respiratory effort Resp Narrative: Few coarse crackles in the bases, not tachypneic.? Breathing is not labored.? Cardio regular rate, regular rhythm, S1 normal heart sound, S2 normal heart sound, no murmurs and no gallops GI normal to inspection, nondistended, normoactive bowel sounds, soft to palpation and non-tender GI Narrative: No guarding Extremity normal capillary refill and no calf tenderness Extremity Narrative: She has increased tone in the R quadriceps.? General Extremity: Negative for clubbing, cyanosis or edema Skin General Skin Exam: no breakdown Rashes: no rashes Neuro Neuro Narrative: see NIHSS Psych Psych Narrative: Confused, aphasic Lab / Micro Data Result Diagrams: 02/03/22 05:40? 02/03/22 05:40? I have examined the patient and the H&P has been reviewed. There are no clinical changes since date of exam.
--- NOTE | 2022-02-08 12:42 | OP.EGD_ITS ---
Patient Name: Karlie Valle Procedure Date: 02/08/2022 12:04 PM Date of : 1940 Age: 81 Procedure: Upper GI endoscopy Indications: Iron deficiency anemia, Hematemesis Providers: Jim Sanon DO Medicines: Monitored Anesthesia Care Patient Profile: This is a 81 year old female. Refer to note in patient chart for documentation of history and physical. Patient has symptoms of acute epigastric abdominal pain and acute nausea. Complications: No immediate complications. Procedure: Pre-Anesthesia Assessment: - Prior to the procedure, a History and Physical was performed, and patient medications and allergies were reviewed. The patient is competent. The risks and benefits of the procedure and the sedation options and risks were discussed with the patient. All questions were answered and informed consent was obtained. Patient identification and proposed procedure were verified by the physician in the pre-procedure area. Mental Status Examination: alert and oriented. Airway Examination: normal oropharyngeal airway and neck mobility. Respiratory Examination: clear to auscultation. CV Examination: normal. Prophylactic Antibiotics: The patient does not require prophylactic antibiotics. Prior Anticoagulants: The patient has taken no previous anticoagulant or antiplatelet agents. ASA Grade Assessment: II - A patient with mild systemic disease. After reviewing the risks and benefits, the patient was deemed in satisfactory condition to undergo the procedure. The anesthesia plan was to use monitored anesthesia care (MAC). Immediately prior to administration of medications, the patient was re-assessed for adequacy to receive sedatives. The heart rate, respiratory rate, oxygen saturations, blood pressure, adequacy of pulmonary ventilation, and response to care were monitored throughout the procedure. The physical status of the patient was re-assessed after the procedure. After obtaining informed consent, the endoscope was passed under direct vision. Throughout the procedure, the patient's blood pressure, pulse, and oxygen saturations were monitored continuously. The gastroscope was introduced through the mouth, and advanced to the second part of duodenum. The upper GI endoscopy was accomplished without difficulty. The patient tolerated the procedure well. Scope In: 12:18:22 PM Scope Out: 12:25:44 PM Total Procedure Duration Time 0 hours 7 minutes 22 seconds Findings: One benign-appearing, intrinsic stenosis was found 36 to 38 cm from the incisors. This stenosis was moderately severe and measured 2 mm (inner diameter) x 2 cm (in length). The stenosis was traversed. A guidewire was placed and the scope was withdrawn. Dilation was performed with a Savary dilator with no resistance at 42 Fr. The dilation site was examined following endoscope reinsertion and showed moderate improvement in luminal narrowing. Estimated blood loss was minimal. A medium-sized hiatal hernia was present. A single 5 mm bleeding angiodysplastic lesion was found at the incisura. Coagulation for hemostasis using heater probe was successful. Estimated blood loss was minimal. A medium-sized hiatal hernia with a few Jono ulcers was found. The proximal extent of the gastric folds (end of tubular esophagus) was 38 cm from the incisors. The hiatal narrowing was 40 cm from the incisors. The Z-line was 38 cm from the incisors. Coagulation for hemostasis using heater probe was successful. Estimated blood loss was minimal. A single 5 mm angiodysplastic lesion without bleeding was found in the first portion of the duodenum. Coagulation for bleeding prevention using heater probe was successful. Estimated blood loss was minimal. Impression: - Benign-appearing esophageal stenosis. Dilated. - Medium-sized hiatal hernia. - A single bleeding angiodysplastic lesion in the stomach. Treated with a heater probe. - Medium-sized hiatal hernia with a few Jono ulcers. Treated with a heater probe. - A single non-bleeding angiodysplastic lesion in the duodenum. Treated with a heater probe. - No specimens collected. Recommendation: -Protonix 40 mg p.o. twice daily -She can be started on anticoagulation on 02/09/2022 - Resume previous diet. - Continue present medications. Procedure Code(s): --- Professional --- 68509, 59, Esophagogastroduodenoscopy, flexible, transoral; with control of bleeding, any method 94067, Esophagogastroduodenoscopy, flexible, transoral; with insertion of guide wire followed by passage of dilator(s) through esophagus over guide wire CPT copyright 2017 [employer] [place] [employer]. All rights reserved. The codes documented in this report are preliminary and upon candy waffle assembler review may be revised to meet current compliance requirements. Jim Sanon DO 02/08/2022 12:41:28 PM This report has been signed electronically. Number of Addenda: 0 Note Initiated On: 02/08/2022 12:04 PM
--- NOTE | 2022-02-08 12:42 | OP.CCLET_ITS ---
02/08/2022 Errol Shahid [address] [place] [address] Re : Upper GI endoscopy procedure for Karlie Valle Dear Dr. Shahid This procedure was performed on Tuesday, February 08, 2022. My impressions and recommendations are as follows: Impressions : - Benign-appearing esophageal stenosis. Dilated. - Medium-sized hiatal hernia. - A single bleeding angiodysplastic lesion in the stomach. Treated with a heater probe. - Medium-sized hiatal hernia with a few Jono ulcers. Treated with a heater probe. - A single non-bleeding angiodysplastic lesion in the duodenum. Treated with a heater probe. - No specimens collected. Recommendations : -Protonix 40 mg p.o. twice daily -She can be started on anticoagulation on 02/09/2022 - Resume previous diet. - Continue present medications. My findings are described in the full procedure note, which is enclosed. If I can be of further assistance, please feel free to contact me at . Sincerely, Jim Sanon, 02/08/2022 12:41:28 PM This report has been signed electronically.
[2022-02-08] MEDS: NYSTATIN 500,000 UNIT/5 ML UDC 500000 UNIT PO ×2 (16:54→20:36)
[2022-02-08] MEDS: Ensure Plus High Protein 120 ML LIQUID PO ×2 (16:55→20:35)
[2022-02-08] MEDS: Senna/Docusate Sodium 1 Tablet 2 TABLET PO (18:57)
[2022-02-08] MEDS: Metoprolol Tartrate 25 MG Tablet 12.5 MG PO (20:35)
[2022-02-08] MEDS: MELATONIN 3 MG TABLET PO (20:35)
[2022-02-08] MEDS: Mirtazapine 15 MG Tablet PO (20:35)
[2022-02-08] MEDS: Atorvastatin Calcium 40 MG Tablet PO (20:36)
--- NOTE | 2022-02-09 01:54 | NURSING ---
Pt incont of urine. Pt cleaned up and reposition to left side
[2022-02-09 06:04] LABS: Hematocrit 34.1 % (37-47); Hemoglobin 10.5 g/dL (12.0-15.0); Mean Corp Hgb Conc 30.8 g/dL (32-36); Mean Corpuscular Hgb 30.1 pg (27.0-32.0); Mean Corpuscular Volume 97.7 fL (81-99); Mean Platelet Vol. 9.4 fl (6.2-12.0); Platelet Count 409 K/mm3 (150-450); RBC Distribution Width CV 13.9 % (11.6-14.6); RBC Distribution Width SD 49.7 fl (35.1-43.9); Red Blood Count 3.49 M/mm3 (4.2-5.4); White Blood Count 11.9 K/mm3 (4.4-11.0)
[2022-02-09 06:31] LABS: Anion Gap 6 (5-15); BUN 33 mg/dL (7-18); BUN/Creat Ratio 40.6 RATIO (10-20); Calcium,Total 9.2 mg/dL (8.5-10.1); Chloride 106 mmol/L (98-107); Creatinine, Serum 0.81 mg/dL (0.55-1.02); EST Glomerular Filtration Rate 72 mL/min (>60); Est Glom Filt Rate - Afr Amer 87 mL/min (>60); Glucose 112 mg/dL (74-106); Magnesium 2.5 mg/dL (1.6-2.6); Phosphorus 3.6 mg/dL (2.5-4.9); Potassium 4.6 mmol/L (3.5-5.1); Sodium Level 141 mmol/L (136-145)
[2022-02-09 07:44] VITALS: BP 124/51; PULSE 79; RESP 16; TEMP 36.3; O2SAT 97
[2022-02-09] MEDS: Ensure Plus High Protein 120 ML LIQUID PO ×4 (08:01→21:14)
[2022-02-09] MEDS: Aspirin 81 MG TAB.CHEW PO (08:01)
[2022-02-09] MEDS: NYSTATIN 500,000 UNIT/5 ML UDC 500000 UNIT PO ×4 (08:01→21:16)
[2022-02-09] MEDS: Multivitamins,Therapeutic Tablet 1 TABLET PO (08:01)
[2022-02-09] MEDS: Calcium Carb/Vitamin D 1 TABLET Tablet PO (08:01)
[2022-02-09 08:02] VITALS: BP 124/51; PULSE 79
[2022-02-09] MEDS: Pantoprazole Sodium 40 MG Tablet PO ×2 (08:02→21:16)
[2022-02-09] MEDS: Metoprolol Tartrate 25 MG Tablet 12.5 MG PO ×2 (08:02→21:14)
[2022-02-09] MEDS: Acetaminophen 325 MG Tablet 650 MG PO (08:07)
[2022-02-09 13:17] VITALS: BMI 19.0
--- NOTE | 2022-02-09 13:17 | CASEMGMT ---
Social Work IDT met with patient and multiple children for Team meeting. Discussed patient's progress in PT/OT/ST/SN. Educated to Medicare approval of 23 days with DC 02/20. DC plan is for pt to transfer to TCU. PT expressed pt making progress from last week with improved activity tolerance, etc. ST and OT explained pt has not made significant progress from last week. Cautioned family progress may be slow and longer. Met with family separately and answered questions to Medicare coverage on TCU. Provided family with written information on Medicare benefit and period reset. Educated to average LOS and DC notice on TCU. Noted that recommending pt does not return home alone. Educated to no Medicare coverage for nonskilled care. Explained Medicaid qualifications and OOP for nonskilled care. Family to review SNF list already provided by this worker for continued long-term planning. Family appreciative. SW to continue to follow. Will ReTeam next week. Leila Whitley, [employer]
--- NOTE | 2022-02-09 19:44 | PCM.PROGNOTE ---
Subjective Subjective Yoana was seen on team rounds today. Her daughters and her son-in-law were present in the room for rounds. Afebrile VSS - BP has come down to goal this AM. Maintaining appropriate oxygen saturation on RA Oral intake is good. PO fluid intake has increased now that we are giving her things she likes to drink......she does not like drinking water. Discussed with nursing - no problems that need addressed. She is sleeping well. Reviewed the PT/OT/ST notes Medication list reviewed. I reviewed Dr. Sanon's EGD report. Protonix has been increased to 40 mg BID. He is OK with us beginning anticoagulation....neurology felt we should start on 02/16/22. Will start Eliquis on 02/16 if the HGB remains stable. she is sleeping well at night. Yoana denies pain, SOB at rest, Palpitations, dysuria, N/V, calf pain. Objective Data Objective Data Vital Signs: Vital Signs Temp Pulse Resp BP Pulse Ox O2 Del Method 97.3 F L 79 16 124/51 H 97 Room Air 02/09/22 07:44 02/09/22 08:02 02/09/22 07:44 02/09/22 08:02 02/09/22 07:44 02/09/22 07:44 Oxygen Delivery Method Room Air Weight: 99 lb 3.328 oz Body Mass Index (BMI) 19.0 Intake & Output: Intake and Output for Last 24 Hours 02/07/22 02/08/22 02/09/22 23:59 23:59 23:59 Intake Total 960 / 960 573.5 / 693.5 1620 / 1620 Output Total 420 / 420 400 / 400 200 / 200 Balance 540 / 540 173.5 / 293.5 1420 / 1420 Lab / Micro Data Result Diagrams: 02/09/22 05:50 02/10/22 05:08 Labs: Laboratory Results - last 24 hr 02/09/22 05:50: WBC 11.9 H, RBC 3.49 L, Hgb 10.5 L, Hct 34.1 L, MCV 97.7, MCH 30.1, MCHC 30.8 L, RDW Std Deviation 49.7 H, RDW Coeff of Leif 13.9, Plt Count 409, MPV 9.4 02/09/22 05:50: Sodium 141, Potassium 4.6, Chloride 106, Carbon Dioxide 29.0, Anion Gap 6, BUN 33 H, Creatinine 0.81, Estim Creat Clear Calc 40.10, Est GFR (MDRD) Af Amer 87, Est GFR (MDRD) Non-Af 72, BUN/Creatinine Ratio 40.6 H, Glucose 112 H, Calcium 9.2, Phosphorus 3.6, Magnesium 2.5 Micro: Microbiology 01/30/22 19:00 Stool Stool Occult Blood (YANCI) - Final Occult Blood Positive Physical Exam Const alert Resp clear to auscultation bilaterally Cardio regular rate, regular rhythm and no gallops GI normal to inspection, nondistended, normoactive bowel sounds and soft to palpation GI Narrative: No guarding with palpation Extremity no calf tenderness General Extremity: Negative for edema Skin General Skin Exam: no breakdown Rashes: no rashes Assessment & Plan Assessment/Plan (1) Angiodysplasia of stomach: (2) Angiodysplasia of duodenum: (3) Debility: PLAN: COntinue therapy (4) 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 Charges/Coding Visit Charges Inpatient E&M: 75794 Subs Hosp L2
[2022-02-09 21:14] VITALS: PULSE 73
[2022-02-09] MEDS: Atorvastatin Calcium 40 MG Tablet PO (21:14)
[2022-02-09] MEDS: MELATONIN 3 MG TABLET PO (21:16)
[2022-02-09] MEDS: Acetaminophen 500 MG Tablet 1000 MG PO (21:17)
[2022-02-09] MEDS: Mirtazapine 15 MG Tablet PO (21:17)
[2022-02-09 21:39] VITALS: BMI 19.0
[2022-02-09 22:00] VITALS: BP 116/57; PULSE 73; RESP 16; TEMP 36.6; O2SAT 99
[2022-02-10] MEDS: Acetaminophen 500 MG Tablet 1000 MG PO ×3 (05:15→21:48)
[2022-02-10 06:05] LABS: Anion Gap 6 (5-15); BUN 54 mg/dL (7-18); BUN/Creat Ratio 42.9 RATIO (10-20); Calcium,Total 9.4 mg/dL (8.5-10.1); Chloride 105 mmol/L (98-107); Creatinine, Serum 1.26 mg/dL (0.55-1.02); EST Glomerular Filtration Rate 44 mL/min (>60); Est Glom Filt Rate - Afr Amer 53 mL/min (>60); Estimated Creatinine Clearance 25.72 ml/min; Glucose 112 mg/dL (74-106); Potassium 4.4 mmol/L (3.5-5.1); Sodium Level 140 mmol/L (136-145)
[2022-02-10 07:54] VITALS: BP 121/50; PULSE 69; RESP 16; TEMP 36.5; O2SAT 95
[2022-02-10] MEDS: Aspirin 81 MG TAB.CHEW PO (09:00)
[2022-02-10] MEDS: Multivitamins,Therapeutic Tablet 1 TABLET PO (09:00)
[2022-02-10] MEDS: Calcium Carb/Vitamin D 1 TABLET Tablet PO (09:00)
[2022-02-10 09:01] VITALS: PULSE 69
[2022-02-10] MEDS: Metoprolol Tartrate 25 MG Tablet 12.5 MG PO ×2 (09:01→21:50)
[2022-02-10] MEDS: NYSTATIN 500,000 UNIT/5 ML UDC 500000 UNIT PO ×4 (09:01→21:48)
[2022-02-10] MEDS: Pantoprazole Sodium 40 MG Tablet PO ×2 (09:01→21:51)
[2022-02-10] MEDS: Ensure Plus High Protein 120 ML LIQUID PO ×4 (09:04→21:48)
[2022-02-10] MEDS: 0.9% Saline Lock 10 ML Syringe IV ×2 (10:26→22:05)
[2022-02-10 14:20] VITALS: BMI 19.0
[2022-02-10] MEDS: Magnesium Hydroxide 30 ML UDC PO (17:02)
--- NOTE | 2022-02-10 18:29 | PCM.PROGNOTE ---
Subjective Subjective Afebrile VSS Maintaining appropriate oxygen saturation on RA Oral intake is picking up. She drank 1620 yesterday. She is still incontinent at times but, she does sometimes urinate when placed on the toilet. Discussed with nursing - no problems that need addressed Reviewed the PT/OT/ST notes Medication list reviewed. All lab was personally reviewed. The BUN is up to 54 today and the creatinine is 1.26, up from 0.81 on 02/09/2022. Urine sodium and creat have been ordered......I suspect the increase in the creat is due to dehydration. Ilda appears pale today. She denies lightheadedness. She denies chest pain, shortness of breath, palpitations, dysuria, abdominal pain, nausea/vomiting, calf pain. Tells me that she is sleeping well at night. Feels fatigued after therapy but, tries everything asked of her. Objective Data Objective Data Vital Signs: Vital Signs Temp Pulse Resp BP Pulse Ox O2 Del Method 97.7 F L 69 16 121/50 H 95 Room Air 02/10/22 07:54 02/10/22 09:01 02/10/22 07:54 02/10/22 07:54 02/10/22 07:54 02/10/22 07:54 Oxygen Delivery Method Room Air Weight: 99 lb 3.328 oz Body Mass Index (BMI) 19.0 Intake & Output: Intake and Output for Last 24 Hours 02/08/22 02/09/22 02/10/22 23:59 23:59 23:59 Intake Total 573.5 / 693.5 1620 / 1620 595 / 595 Output Total 400 / 400 200 / 200 Balance 173.5 / 293.5 1420 / 1420 595 / 595 Lab / Micro Data Result Diagrams: 02/09/22 05:50 02/10/22 05:08 Labs: Laboratory Results - last 24 hr 02/10/22 05:08: Sodium 140, Potassium 4.4, Chloride 105, Carbon Dioxide 29.0, Anion Gap 6, BUN 54 H, Creatinine 1.26 H, Estim Creat Clear Calc 25.72, Est GFR (MDRD) Af Amer 53 L, Est GFR (MDRD) Non-Af 44 L, BUN/Creatinine Ratio 42.9 H, Glucose 112 H, Calcium 9.4 Micro: Microbiology 01/30/22 19:00 Stool Stool Occult Blood (YANCI) - Final Occult Blood Positive Physical Exam Const alert and no apparent distress Constitutional Narrative: pale General Appearance: cooperative HEENT Mouth: dry mucous membranes Neck supple and No nodes Resp clear to auscultation bilaterally Resp Narrative: diminished in the bases Effort and Inspection: Negative for tachypneic Cardio regular rate, regular rhythm and no gallops Cardio Narrative: occasional early beats GI normal to inspection, nondistended, normoactive bowel sounds and soft to palpation Extremity no calf tenderness General Extremity: Negative for edema Assessment & Plan Assessment/Plan (1) Debility: PLAN: Continue therapy (2) Acute ischemic cerebrovascular accident (CVA) involving middle cerebral artery territory: (3) Paroxysmal A-fib: PLAN: Now that the areas of angiodysplasia have been treated I feel safer anticoagulating her. If she has continued blood in the stool she may have other areas of angiodysplasia in the GI tract. (4) Angiodysplasia of duodenum: (5) Angiodysplasia of stomach: (6) Positive occult stool blood test: (7) Anxiety with depression: PLAN: Doing well on the Remeron. Continue 15 mg at HS. Charges/Coding Visit Charges Inpatient E&M: 65189 Subs Hosp L2
[2022-02-10 19:40] VITALS: BP 125/57; PULSE 77; RESP 17; TEMP 36.7; O2SAT 97
[2022-02-10] MEDS: MELATONIN 3 MG TABLET PO (21:49)
[2022-02-10] MEDS: Atorvastatin Calcium 40 MG Tablet PO (21:49)
[2022-02-10] MEDS: Mirtazapine 15 MG Tablet PO (21:49)
[2022-02-10 21:50] VITALS: BP 125/57; PULSE 77
[2022-02-11] MEDS: Acetaminophen 500 MG Tablet 1000 MG PO ×3 (05:45→22:33)
[2022-02-11 07:57] VITALS: PULSE 72
[2022-02-11] MEDS: Pantoprazole Sodium 40 MG Tablet PO ×2 (07:57→22:34)
[2022-02-11] MEDS: Calcium Carb/Vitamin D 1 TABLET Tablet PO (07:57)
[2022-02-11] MEDS: Multivitamins,Therapeutic Tablet 1 TABLET PO (07:57)
[2022-02-11] MEDS: Aspirin 81 MG TAB.CHEW PO (07:57)
[2022-02-11] MEDS: Metoprolol Tartrate 25 MG Tablet 12.5 MG PO ×2 (07:57→22:35)
[2022-02-11] MEDS: NYSTATIN 500,000 UNIT/5 ML UDC 500000 UNIT PO ×4 (07:58→22:34)
[2022-02-11 08:38] VITALS: BP 145/57; PULSE 79; RESP 16; TEMP 36.8; O2SAT 97
[2022-02-11] MEDS: Senna/Docusate Sodium 1 Tablet 2 TABLET PO (11:25)
[2022-02-11] MEDS: Ensure Plus High Protein 120 ML LIQUID PO ×4 (11:27→22:38)
[2022-02-11 17:00] VITALS: BMI 19.0
[2022-02-11] MEDS: 0.9% Saline Lock 10 ML Syringe IV (17:37)
[2022-02-11 22:00] VITALS: BP 135/70; PULSE 74; RESP 16; RESP 18; TEMP 36.7; O2SAT 95
[2022-02-11] MEDS: Atorvastatin Calcium 40 MG Tablet PO (22:34)
[2022-02-11] MEDS: MELATONIN 3 MG TABLET PO (22:34)
[2022-02-11 22:35] VITALS: BP 135/70; PULSE 74
[2022-02-11] MEDS: Mirtazapine 15 MG Tablet PO (22:38)
[2022-02-12 05:00] VITALS: BMI 19.0
[2022-02-12] MEDS: Acetaminophen 500 MG Tablet 1000 MG PO ×3 (05:55→20:17)
[2022-02-12] MEDS: NYSTATIN 500,000 UNIT/5 ML UDC 500000 UNIT PO ×4 (08:28→20:17)
[2022-02-12 08:29] VITALS: PULSE 72
[2022-02-12] MEDS: Metoprolol Tartrate 25 MG Tablet 12.5 MG PO ×2 (08:29→20:16)
[2022-02-12] MEDS: Multivitamins,Therapeutic Tablet 1 TABLET PO (08:30)
[2022-02-12] MEDS: Aspirin 81 MG TAB.CHEW PO (08:30)
[2022-02-12] MEDS: Pantoprazole Sodium 40 MG Tablet PO ×2 (08:30→20:16)
[2022-02-12] MEDS: Calcium Carb/Vitamin D 1 TABLET Tablet PO (08:30)
[2022-02-12] MEDS: Ensure Plus High Protein 120 ML LIQUID PO ×3 (08:31→16:35)
[2022-02-12 08:39] VITALS: BP 138/59; PULSE 72; RESP 14; TEMP 36.6; O2SAT 95
--- NOTE | 2022-02-12 12:42 | PCM.PROGNOTE ---
Subjective Subjective Afebrile VSS Maintaining appropriate oxygen saturation on RA Oral intake is better. She is consistently taking > 1 liter per day now. Eating 75-100% of her meals. Discussed with nursing - no problems that need addressed. the urine sodium and creat has still not been collected. Reviewed the PT/OT/ST notes Medication list reviewed. Yoana is c/o painful swallowing today. Her tongue is very dry and has a whitish coating. She complains of a bad taste in her mouth. She is also c/o some abdominal pain. She denies CP, SOB, lightheadedness, dysuria, calf pain. No nausea and no vomiting. Objective Data Objective Data Vital Signs: Vital Signs Temp Pulse Resp BP Pulse Ox O2 Del Method 97.8 F 72 14 138/59 H 95 Room Air 02/12/22 08:39 02/12/22 08:39 02/12/22 08:39 02/12/22 08:39 02/12/22 08:39 02/12/22 08:39 Oxygen Delivery Method Room Air Weight: 99 lb 13.91 oz Body Mass Index (BMI) 19.0 Intake & Output: Intake and Output for Last 24 Hours 02/10/22 02/11/22 02/12/22 23:59 23:59 23:59 Intake Total 1155 / 1155 1120 / 1120 240 / 240 Output Total 400 / 400 900 / 900 Balance 755 / 755 220 / 220 240 / 240 Lab / Micro Data Result Diagrams: 02/13/22 05:39 02/13/22 05:39 Micro: Microbiology 01/30/22 19:00 Stool Stool Occult Blood (YANCI) - Final Occult Blood Positive Physical Exam Const Constitutional Narrative: She looks depressed. Will smile occasionally but, seems to be very depressed. She also looks fatigued and pale. HEENT HEENT Narrative: Tongue is coated and the buccal mucosa is reddened Mouth: dry mucous membranes Neck supple, no JVD and No nodes Resp Resp Narrative: Decreased resp effort, no crackles or wheezes, decreased air flow. Cardio regular rate, regular rhythm and no gallops GI normal to inspection, nondistended, normoactive bowel sounds and soft to palpation GI Narrative: having regular BM's. No guarding with palpation. Extremity no calf tenderness General Extremity: Negative for edema Skin Rashes: no rashes Psych Psych Narrative: Still withdrawn and not talking much. She is calm and not anxious. She is less tearful than in the recent past. Not restless. Assessment & Plan Assessment/Plan (1) Debility: PLAN: Continue therapy (2) Acute ischemic cerebrovascular accident (CVA) involving middle cerebral artery territory: PLAN: Not on anticoagulation at the time of the stroke. GI W/U with angiodysplasias in the stomach and in the duodenum. They were cauterized. OK to start anticoagulation....ordered to start on the 8th. (3) Paroxysmal A-fib: PLAN: rate controlled......she is in SR most times that I listen to her since admission to rehab. (4) Aphasia complicating stroke: (5) Left-sided weakness: (6) Facial droop due to acute cerebrovascular accident (CVA): (7) Dehydration, moderate: PLAN: Continue IV fluids until her fluid intake increases. (8) Normochromic normocytic anemia: PLAN: stable. Recheck lab in the AM. (9) Dysphagia: (10) Depression: PLAN: Continue Remeron.......if she does not turn the corner soon will consider adding another antidepressant. Charges/Coding Visit Charges Inpatient E&M: 64436 Subs Hosp L2
[2022-02-12] MEDS: 0.9% Normal Saline 1,000 ML 100 ML IV ×2 (12:55→20:17)
[2022-02-12] MEDS: 0.9% Saline Lock 10 ML Syringe IV (12:58)
[2022-02-12 14:15] LABS: Urine Sodium 42 mmol/L (Not Establ.)
[2022-02-12 14:43] VITALS: BMI 19.0
[2022-02-12] MEDS: Fluconazole 100 MG Tablet 400 MG PO (16:36)
[2022-02-12 19:57] VITALS: BP 126/46; PULSE 82; RESP 18; TEMP 36.7; O2SAT 93
[2022-02-12 20:16] VITALS: BP 126/46; PULSE 82
[2022-02-12] MEDS: MELATONIN 3 MG TABLET PO (20:17)
[2022-02-12] MEDS: Atorvastatin Calcium 40 MG Tablet PO (20:17)
[2022-02-12] MEDS: Mirtazapine 15 MG Tablet PO (20:17)
[2022-02-12 23:20] VITALS: BMI 19.0
[2022-02-13] MEDS: 0.9% Normal Saline 1,000 ML 100 ML IV ×2 (04:59→15:06)
[2022-02-13] MEDS: Acetaminophen 500 MG Tablet 1000 MG PO ×3 (05:00→20:52)
[2022-02-13 05:49] LABS: Hematocrit 31.4 % (37-47); Hemoglobin 10.1 g/dL (12.0-15.0); Mean Corp Hgb Conc 32.2 g/dL (32-36); Mean Corpuscular Hgb 31.2 pg (27.0-32.0); Mean Corpuscular Volume 96.9 fL (81-99); Mean Platelet Vol. 8.9 fl (6.2-12.0); Platelet Count 294 K/mm3 (150-450); RBC Distribution Width CV 13.8 % (11.6-14.6); RBC Distribution Width SD 49.6 fl (35.1-43.9); Red Blood Count 3.24 M/mm3 (4.2-5.4); White Blood Count 9.6 K/mm3 (4.4-11.0)
[2022-02-13 06:31] LABS: Anion Gap 3 (5-15); BUN 31 mg/dL (7-18); BUN/Creat Ratio 44.2 RATIO (10-20); Calcium,Total 8.6 mg/dL (8.5-10.1); Chloride 113 mmol/L (98-107); EST Glomerular Filtration Rate 86 mL/min (>60); Est Glom Filt Rate - Afr Amer 104 mL/min (>60); Estimated Creatinine Clearance 32.62 ml/min; Glucose 114 mg/dL (74-106); Potassium 4.1 mmol/L (3.5-5.1); Sodium Level 142 mmol/L (136-145)
--- NOTE | 2022-02-13 08:00 | EKG12_ITS ---
Test Reason : CHECK Blood Pressure : / mmHG Vent. Rate : 081 BPM Atrial Rate : 081 BPM P-R Int : 214 ms QRS Dur : 076 ms QT Int : 388 ms P-R-T Axes : 081 051 082 degrees QTc Int : 450 ms Sinus rhythm with 1st degree A-V block T wave abnormality, consider lateral ischemia Abnormal ECG When compared with ECG of 19-JAN-2022 14:28, DE interval has increased Non-specific change in ST segment in Anterior leads Confirmed by NELSON BOGGS, BRENDA ([id number]), supervising editor news reel MARY KAY SPARROW ([id number]) on 02/14/2022 12:55:44 PM Referred By: MEAGHAN Confirmed By:BRENDA DAMNO MD
[2022-02-13 08:19] VITALS: BP 150/66; PULSE 77; RESP 16; TEMP 36.6; O2SAT 96
[2022-02-13] MEDS: Aspirin 81 MG TAB.CHEW PO (08:21)
[2022-02-13] MEDS: Multivitamins,Therapeutic Tablet 1 TABLET PO (08:21)
[2022-02-13] MEDS: NYSTATIN 500,000 UNIT/5 ML UDC 500000 UNIT PO ×4 (08:21→20:53)
[2022-02-13] MEDS: Fluconazole 100 MG Tablet PO (08:22)
[2022-02-13] MEDS: Calcium Carb/Vitamin D 1 TABLET Tablet PO (08:22)
[2022-02-13 08:23] VITALS: PULSE 77
[2022-02-13] MEDS: Pantoprazole Sodium 40 MG Tablet PO ×2 (08:23→20:53)
[2022-02-13] MEDS: Metoprolol Tartrate 25 MG Tablet 12.5 MG PO ×2 (08:23→20:53)
[2022-02-13] MEDS: Ensure Plus High Protein 120 ML LIQUID PO ×4 (08:25→20:52)
--- NOTE | 2022-02-13 12:26 | PCM.PROGNOTE ---
Subjective Subjective Afebrile VSS Maintaining appropriate oxygen saturation on RA Oral intake fluid intake was 1200 yesterday. Discussed with nursing - no problems that need addressed Reviewed the PT/OT/ST notes Medication list reviewed. All lab was personally reviewed. White blood cell count is normal at 9.6. Hemoglobin is stable at 10.1 and platelet count is within normal limits. BUN following hydration is down to 31 from 54 on 02/10/2022. Creatinine is now within baseline is 0.7, down from 1.26 on 02/10/2022. More alert and interactive. Talked with him for about 5 minutes today and speech was more fluid. No tears when I talked with her today. sleeping well at night. Yoana denies lightheadedness, vertigo, CP, SOB at rest, SOB with exertion, cough, nausea, vomiting, abd pain, diarrhea, constipation, dysuria, calf pain and ankle swelling. Getting better with fluid intake now that she is receiving liquids she enjoys drinking.......she is not a water drinker. Objective Data Objective Data Vital Signs: Vital Signs Temp Pulse Resp BP Pulse Ox O2 Del Method 97.8 F 77 16 150/66 H 96 Room Air 02/13/22 08:19 02/13/22 08:23 02/13/22 08:19 02/13/22 08:19 02/13/22 08:19 02/13/22 08:19 Oxygen Delivery Method Room Air Weight: 99 lb 13.91 oz Body Mass Index (BMI) 19.0 Intake & Output: Intake and Output for Last 24 Hours 02/11/22 02/12/22 02/13/22 23:59 23:59 23:59 Intake Total 1120 / 1120 1936.67 / 1936.67 1230 / 1230 Output Total 900 / 900 400 / 400 Balance 220 / 220 1536.67 / 1536.67 1230 / 1230 Lab / Micro Data Result Diagrams: 02/13/22 05:39 02/13/22 05:39 Labs: Laboratory Results - last 24 hr 02/12/22 13:55: Ur Random Sodium 42, Urine Creatinine 56.20 02/13/22 05:39: WBC 9.6, RBC 3.24 L, Hgb 10.1 L, Hct 31.4 L, MCV 96.9, MCH 31.2, MCHC 32.2, RDW Std Deviation 49.6 H, RDW Coeff of Leif 13.8, Plt Count 294, MPV 8.9 02/13/22 05:39: Sodium 142, Potassium 4.1, Chloride 113 H, Carbon Dioxide 26.0, Anion Gap 3 L, BUN 31 H, Creatinine 0.70, Estim Creat Clear Calc 32.62, Est GFR (MDRD) Af Amer 104, Est GFR (MDRD) Non-Af 86, BUN/Creatinine Ratio 44.2 H, Glucose 114 H, Calcium 8.6 Micro: Microbiology 01/30/22 19:00 Stool Stool Occult Blood (YANCI) - Final Occult Blood Positive Physical Exam Const alert Constitutional Narrative: more color in her face today and she is smiling at me. More talkative. Cooperative. sitting in the recliner at the bedside and the window shades are open today. she is looking outside. General Appearance: cooperative Orientation / Consciousness: confused HEENT HEENT Narrative: MM are still dry but, they have improved and she is drinking more. Less facial droop. Speech is easy to understand today and she is less hesitant and more fluid with her speech. Neck supple and no JVD Resp clear to auscultation bilaterally Resp Narrative: No conversational dyspnea. Effort and Inspection: Negative for tachypneic or respiratory distress GI normal to inspection, nondistended, normoactive bowel sounds, soft to palpation and non-tender GI Narrative: No guarding with palpation. Extremity no calf tenderness General Extremity: Negative for edema Skin General Skin Exam: no breakdown Rashes: no rashes Psych cooperative Psych Narrative: Affect is improving. Still sad but, no longer tearful most of the time. She seems to be thinking more about where she is going to live when she is able to be discharged and knows that she is not going to be able to live independently at [facility]. Family is making plans. Plan is for her to go to TCU for additional therapy after leaving rehab. Assessment & Plan Assessment/Plan (1) Debility: (2) Acute ischemic cerebrovascular accident (CVA) involving middle cerebral artery territory: (3) Aphasia complicating stroke: (4) Left-sided weakness: (5) Facial droop due to acute cerebrovascular accident (CVA): (6) Dehydration, moderate: (7) Normochromic normocytic anemia: (8) Dysphagia: (9) Anxiety with depression: PLAN: Plan 1. Continue therapy 2. Continue to encourage her to maintain good fluid intake 3. plan is for transitional care unit at discharge from rehab on 02/20/2022 for additional therapy prior to returning with family. Charges/Coding Visit Charges Inpatient E&M: 67234 Subs Hosp L2
[2022-02-13] MEDS: Senna/Docusate Sodium 1 Tablet 2 TABLET PO (15:09)
[2022-02-13 15:16] VITALS: BMI 19.0
[2022-02-13 20:00] VITALS: BP 147/59; PULSE 87; RESP 18; TEMP 36.7; O2SAT 97
[2022-02-13 20:53] VITALS: BP 147/59; PULSE 87
[2022-02-13] MEDS: Atorvastatin Calcium 40 MG Tablet PO (20:53)
[2022-02-13] MEDS: MELATONIN 3 MG TABLET PO (20:54)
[2022-02-13] MEDS: Mirtazapine 15 MG Tablet PO (20:54)
[2022-02-13 21:00] VITALS: O2SAT 97
[2022-02-14] MEDS: 0.9% Normal Saline 1,000 ML 100 ML IV ×2 (01:43→16:41)
[2022-02-14] MEDS: Acetaminophen 500 MG Tablet 1000 MG PO ×3 (05:29→20:49)
[2022-02-14 07:38] VITALS: BP 155/74; PULSE 87; RESP 18; TEMP 36.7; O2SAT 96
[2022-02-14] MEDS: Multivitamins,Therapeutic Tablet 1 TABLET PO (08:30)
[2022-02-14] MEDS: Fluconazole 100 MG Tablet PO (08:30)
[2022-02-14] MEDS: Ensure Plus High Protein 120 ML LIQUID PO ×4 (08:30→20:50)
[2022-02-14] MEDS: NYSTATIN 500,000 UNIT/5 ML UDC 500000 UNIT PO ×4 (08:30→20:49)
[2022-02-14] MEDS: Calcium Carb/Vitamin D 1 TABLET Tablet PO (08:30)
[2022-02-14] MEDS: Aspirin 81 MG TAB.CHEW PO (08:30)
[2022-02-14] MEDS: Pantoprazole Sodium 40 MG Tablet PO ×2 (08:30→20:49)
[2022-02-14 08:31] VITALS: BP 155/74; PULSE 87
[2022-02-14] MEDS: Metoprolol Tartrate 25 MG Tablet 12.5 MG PO ×2 (08:31→20:49)
[2022-02-14 15:36] VITALS: BMI 19.0
[2022-02-14 20:23] VITALS: BP 135/72; PULSE 75; RESP 16; TEMP 36.8; O2SAT 96
[2022-02-14 20:49] VITALS: BP 135/72; PULSE 75
[2022-02-14] MEDS: MELATONIN 3 MG TABLET PO (20:49)
[2022-02-14] MEDS: Mirtazapine 15 MG Tablet PO (20:49)
[2022-02-14] MEDS: Atorvastatin Calcium 40 MG Tablet PO (20:50)
[2022-02-15] MEDS: 0.9% Normal Saline 1,000 ML 100 ML IV (03:18)
[2022-02-15] MEDS: Acetaminophen 500 MG Tablet 1000 MG PO (04:44)
[2022-02-15 07:49] VITALS: BP 157/75; PULSE 76; RESP 12; TEMP 36.7; O2SAT 97
[2022-02-15 08:14] VITALS: BP 157/75; PULSE 76
[2022-02-15] MEDS: Pantoprazole Sodium 40 MG Tablet PO ×2 (08:14→20:12)
[2022-02-15] MEDS: Metoprolol Tartrate 25 MG Tablet 12.5 MG PO ×2 (08:14→20:12)
[2022-02-15] MEDS: NYSTATIN 500,000 UNIT/5 ML UDC 500000 UNIT PO ×4 (08:14→20:12)
[2022-02-15] MEDS: Multivitamins,Therapeutic Tablet 1 TABLET PO (08:15)
[2022-02-15] MEDS: Aspirin 81 MG TAB.CHEW PO (08:15)
[2022-02-15] MEDS: Fluconazole 100 MG Tablet PO (08:15)
[2022-02-15] MEDS: Calcium Carb/Vitamin D 1 TABLET Tablet PO (08:15)
[2022-02-15] MEDS: Ensure Plus High Protein 120 ML LIQUID PO ×3 (08:18→20:13)
--- NOTE | 2022-02-15 13:17 | PCM.PROGNOTE ---
Subjective Subjective Afebrile VSS Maintaining appropriate oxygen saturation on RA Oral intake is fair. Discussed with nursing - no problems that need addressed Reviewed the PT/OT/ST notes Medication list reviewed. Denies cough, SOB, sore throat. Swallowing is not painful now. Denies abd pain and nausea and dysuria. Objective Data Objective Data Vital Signs: Vital Signs Temp Pulse Resp BP Pulse Ox O2 Del Method 98.1 F 76 12 157/75 H 97 Room Air 02/15/22 07:49 02/15/22 08:14 02/15/22 07:49 02/15/22 08:14 02/15/22 07:49 02/15/22 07:49 Oxygen Delivery Method Room Air Weight: 101 lb 3.075 oz Body Mass Index (BMI) 19.0 Intake & Output: Intake and Output for Last 24 Hours 02/13/22 02/14/22 02/15/22 23:59 23:59 23:59 Intake Total 2830 / 2830 2800 / 2800 1120 / 1120 Output Total 600 / 600 300 / 300 Balance 2230 / 2230 2500 / 2500 1120 / 1120 Lab / Micro Data Result Diagrams: 02/13/22 05:39 02/13/22 05:39 Micro: Microbiology 01/30/22 19:00 Stool Stool Occult Blood (YANCI) - Final Occult Blood Positive Physical Exam Narrative she looks great today. She was sitting in the recliner when I entered the room and had just finished her lunch...she ate about 75%. She left the minced lettuce and frankly it did not look appetizing. she smiled many times talking with me and she is participating in conversation the best she has done since admission. She is very alert and told me she was felling better. Const alert, oriented x3 and no apparent distress Constitutional Narrative: MM are moist today. General Appearance: cooperative Eyes PERRL and EOMs intact bilaterally Neck No nuchal rigidity, No no JVD and No nodes Lymph Lymphatic: Negative for lymphadenopathy Resp normal air movement and clear to auscultation bilaterally Resp Narrative: The air movement in the upper lobes is less than the lower lobes. She has excellent air exchange in the bases. She is somewhat kyphotic. Cardio regular rate, regular rhythm and no gallops GI normal to inspection, nondistended, normoactive bowel sounds, soft to palpation and non-tender Extremity no calf tenderness General Extremity: Negative for edema Skin General Skin Exam: no breakdown Rashes: no rashes Neuro Neuro Narrative: The facial droop is barely noticeable today. More movement on the left side. More verbal and able to participate in conversation with me. Assessment & Plan Assessment/Plan (1) Acute ischemic cerebrovascular accident (CVA) involving middle cerebral artery territory: PLAN: Continue therapy. she is making good progress and her outlook for receovery has improved. (2) Paroxysmal A-fib: PLAN: Start Eliquis tonight. (3) Aphasia complicating stroke: PLAN: More fluent and able to partcipate in conversation now. (4) Left-sided weakness: PLAN: Improving. Was working on stairs today with PT. (5) Facial droop due to acute cerebrovascular accident (CVA): PLAN: Not noticeable today. (6) Dehydration, moderate: PLAN: resolved. Will DC the IV fluids but, keep after her to increase fluid intake. (7) Normochromic normocytic anemia: PLAN: Stable at 10.1. No stomach pain. (8) Angiodysplasia of duodenum: (9) Angiodysplasia of stomach: (10) Hiatal hernia: (11) GERD (gastroesophageal reflux disease): (12) Depression: PLAN: We seemed to have turned a corner in the past 2 days. she is very alert, smiling and participating in conversations. She seems more hopeful about her future....big change from Sunday. (13) Thrush of mouth and esophagus: PLAN: Continue Fluconazole for a total of 10 days. Charges/Coding Visit Charges Inpatient E&M: 20725 Subs Hosp L2
[2022-02-15 14:30] VITALS: BMI 19.0
--- NOTE | 2022-02-15 15:22 | CHAPLAIN ---
Type of Pastoral Visit _x__ Initial Visit ___ Follow-up Visit ___ On-call Visit ___ General Patient Visit ___ Spiritual Assessment ___ Family Conference ___ Bereavement ___ Rapid Response ___ Code Blue ___ Other (describe below) Pastoral Care Referral From ___ Patient ___ Family ___ Nurse _x__ Physician ___ Collaborative Physician ___ Sales Representative Groceries ___ Other (describe below) Sacrament/Intervention _x__ Active listening ___ Anointing ___ Sabianist _x__ Bereavement ___ Communion ___ Daniella exploration ___ _x__ Life review _x__ Prayer ___ Reconciliation ___ Sacrament of Sick _x__ Supportive presence ___ Wedding ___ Other (describe below) Pastoral Comments patient was recently ; pt states when asked It is not going very well; pt is tearful at times throughout the visit; gave time to listen and be supportive in the grief process; pt gives sense of overwhelm; pt does have large family as seen in the photos in room; pt says that family is good and helpful; pt did welcome prayer
[2022-02-15 19:50] VITALS: BP 153/75; PULSE 75; RESP 15; TEMP 37.2; O2SAT 97
[2022-02-15] MEDS: 0.9% Saline Lock 10 ML Syringe IV (20:11)
[2022-02-15 20:12] VITALS: BP 153/75; PULSE 75
[2022-02-15] MEDS: Mirtazapine 15 MG Tablet PO (20:12)
[2022-02-15] MEDS: MELATONIN 3 MG TABLET PO (20:12)
[2022-02-15] MEDS: APIXABAN 5 MG TABLET PO (20:13)
[2022-02-15] MEDS: Atorvastatin Calcium 40 MG Tablet PO (20:13)
[2022-02-16 07:42] VITALS: BP 153/74; PULSE 81; RESP 16; TEMP 36.9; O2SAT 96
[2022-02-16] MEDS: Aspirin 81 MG TAB.CHEW PO (08:24)
[2022-02-16 08:25] VITALS: BP 153/74; PULSE 81
[2022-02-16] MEDS: Metoprolol Tartrate 25 MG Tablet 12.5 MG PO ×2 (08:25→20:29)
[2022-02-16] MEDS: Calcium Carb/Vitamin D 1 TABLET Tablet PO (08:25)
[2022-02-16] MEDS: Fluconazole 100 MG Tablet PO (08:25)
[2022-02-16] MEDS: Ensure Plus High Protein 120 ML LIQUID PO ×4 (08:25→21:45)
[2022-02-16] MEDS: APIXABAN 5 MG TABLET PO ×2 (08:25→20:24)
[2022-02-16] MEDS: Pantoprazole Sodium 40 MG Tablet PO ×2 (08:25→20:24)
[2022-02-16] MEDS: Multivitamins,Therapeutic Tablet 1 TABLET PO (08:25)
[2022-02-16] MEDS: NYSTATIN 500,000 UNIT/5 ML UDC 500000 UNIT PO ×4 (08:25→20:25)
--- NOTE | 2022-02-16 13:26 | CASEMGMT ---
Social Work IDT met with patient and three children for Team meeting. Discussed patient's progress in PT/OT/ST/SN. Educated to Medicare benefit with DC 02/20. Confirmed DC plan is for pt to DC to TCU. Discussed longer-term plan with family. Goal is for pt to return home, but family has reviewed other SNFs. SW to continue to follow on TCU for DC planning. Plan: DC to TCU 02/20, skilled JAKOB HerreraW
[2022-02-16] MEDS: 0.9% Saline Lock 10 ML Syringe IV (13:47)
[2022-02-16 15:31] VITALS: BMI 19.0
--- NOTE | 2022-02-16 16:01 | PCM.PROGNOTE ---
Subjective Subjective Yoana was seen on team rounds today. Family was present in the room for rounds. Afebrile VSS Maintaining appropriate oxygen saturation on RA Oral intake is improving Discussed with nursing - no problems that need addressed Reviewed the PT/OT/ST notes Medication list reviewed. Tells me that her mouth is not as sore today. Still having some odynophagia but, does not feel like food is getting stuck. Yoana denies shortness of breath, cough, cephalgia, lightheadedness, nausea/vomiting, dysuria, calf pain. Tells me that she is sleeping well at night. Does not liek drinking water and we discussed that she can drink fluids other than water to keep her better hydrated. We discussed her preferences and her family will bring in the drinks she likes. Avoid caffeinated beverages. Objective Data Objective Data Vital Signs: Vital Signs Temp Pulse Resp BP Pulse Ox O2 Del Method 98.5 F 81 16 153/74 H 96 Room Air 02/16/22 07:42 02/16/22 08:25 02/16/22 07:42 02/16/22 08:25 02/16/22 07:42 02/16/22 07:42 Oxygen Delivery Method Room Air Weight: 99 lb 10.383 oz Body Mass Index (BMI) 19.0 Intake & Output: Intake and Output for Last 24 Hours 02/14/22 02/15/22 02/16/22 23:59 23:59 23:59 Intake Total 2800 / 2800 2480 / 2480 660 / 660 Output Total 300 / 300 150 / 150 Balance 2500 / 2500 2330 / 2330 660 / 660 Lab / Micro Data Result Diagrams: 02/13/22 05:39 02/13/22 05:39 Micro: Microbiology 01/30/22 19:00 Stool Stool Occult Blood (YANCI) - Final Occult Blood Positive Physical Exam Const alert Constitutional Narrative: Making better eye contact with the therapists as they speak to her today and with her family when they are asking questions. General Appearance: cooperative Resp clear to auscultation bilaterally Resp Narrative: Good respiratory effort today with normal air exchange. No conversational dyspnea. Effort and Inspection: Negative for tachypneic Cardio regular rate, regular rhythm and no gallops Cardio Narrative: Has not had any AF since admission to rehab that I detected on Exam. 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 continue therapy 2. no changes to the drug regimen today 3. Continue to encourage increased fluid intake 4. stable - will recheck prior to transfer to TCU Charges/Coding Visit Charges Inpatient E&M: 41653 Subs Hosp L2
[2022-02-16 19:59] VITALS: BP 137/61; PULSE 79; RESP 16; TEMP 36.8; O2SAT 93
[2022-02-16] MEDS: Mirtazapine 15 MG Tablet PO (20:24)
[2022-02-16] MEDS: Atorvastatin Calcium 40 MG Tablet PO (20:25)
[2022-02-16] MEDS: MELATONIN 3 MG TABLET PO (20:25)
[2022-02-16 20:29] VITALS: BP 137/61; PULSE 79
[2022-02-16 22:00] VITALS: O2SAT 97
[2022-02-17 00:49] VITALS: BMI 19.0
[2022-02-17 08:26] VITALS: PULSE 80
[2022-02-17] MEDS: Metoprolol Tartrate 25 MG Tablet 12.5 MG PO ×2 (08:26→20:51)
[2022-02-17] MEDS: Ensure Plus High Protein 120 ML LIQUID PO ×4 (08:26→20:50)
[2022-02-17] MEDS: Fluconazole 100 MG Tablet PO (08:27)
[2022-02-17] MEDS: NYSTATIN 500,000 UNIT/5 ML UDC 500000 UNIT PO ×4 (08:27→20:50)
[2022-02-17] MEDS: APIXABAN 5 MG TABLET PO ×2 (08:27→20:51)
[2022-02-17] MEDS: Pantoprazole Sodium 40 MG Tablet PO ×2 (08:27→20:50)
[2022-02-17] MEDS: Aspirin 81 MG TAB.CHEW PO (08:28)
[2022-02-17] MEDS: Calcium Carb/Vitamin D 1 TABLET Tablet PO (08:28)
[2022-02-17] MEDS: Multivitamins,Therapeutic Tablet 1 TABLET PO (08:28)
[2022-02-17 08:50] VITALS: BP 131/56; PULSE 75; RESP 16; TEMP 37; O2SAT 95
[2022-02-17 16:30] VITALS: BMI 19.0
[2022-02-17 19:23] VITALS: BP 114/69; PULSE 79; RESP 18; TEMP 37.2; O2SAT 98
[2022-02-17] MEDS: Mirtazapine 15 MG Tablet PO (20:50)
[2022-02-17 20:51] VITALS: BP 114/69; PULSE 79
[2022-02-17] MEDS: Atorvastatin Calcium 40 MG Tablet PO (20:51)
[2022-02-17] MEDS: MELATONIN 3 MG TABLET PO (20:51)
[2022-02-17 22:00] VITALS: O2SAT 98
[2022-02-18 07:45] VITALS: BP 120/49; PULSE 80; RESP 16; TEMP 36.8; O2SAT 95
[2022-02-18] MEDS: APIXABAN 5 MG TABLET PO ×2 (08:14→20:13)
[2022-02-18 08:15] VITALS: PULSE 80
[2022-02-18] MEDS: Pantoprazole Sodium 40 MG Tablet PO ×2 (08:15→20:14)
[2022-02-18] MEDS: Metoprolol Tartrate 25 MG Tablet 12.5 MG PO ×2 (08:15→20:14)
[2022-02-18] MEDS: Calcium Carb/Vitamin D 1 TABLET Tablet PO (08:15)
[2022-02-18] MEDS: NYSTATIN 500,000 UNIT/5 ML UDC 500000 UNIT PO ×4 (08:15→20:09)
[2022-02-18] MEDS: Multivitamins,Therapeutic Tablet 1 TABLET PO (08:15)
[2022-02-18] MEDS: Aspirin 81 MG TAB.CHEW PO (08:16)
[2022-02-18] MEDS: Ensure Plus High Protein 120 ML LIQUID PO ×4 (08:16→20:09)
[2022-02-18] MEDS: Fluconazole 100 MG Tablet PO (08:16)
[2022-02-18 10:46] VITALS: BMI 19.0
[2022-02-18 19:33] VITALS: BP 140/58; PULSE 86; RESP 16; TEMP 36.7; O2SAT 97
[2022-02-18] MEDS: Acetaminophen 500 MG Tablet 1000 MG PO (20:09)
[2022-02-18 20:10] VITALS: O2SAT 97
[2022-02-18] MEDS: Mirtazapine 15 MG Tablet PO (20:13)
[2022-02-18] MEDS: MELATONIN 3 MG TABLET PO (20:13)
[2022-02-18 20:14] VITALS: BP 140/58; PULSE 86
[2022-02-18] MEDS: Atorvastatin Calcium 40 MG Tablet PO (20:14)
[2022-02-19 07:35] VITALS: BP 138/70; PULSE 84; RESP 18; TEMP 35.9; O2SAT 97
[2022-02-19 08:11] VITALS: BP 138/70; PULSE 84
[2022-02-19] MEDS: Aspirin 81 MG TAB.CHEW PO (08:11)
[2022-02-19] MEDS: Metoprolol Tartrate 25 MG Tablet 12.5 MG PO ×2 (08:11→20:45)
[2022-02-19] MEDS: Pantoprazole Sodium 40 MG Tablet PO ×2 (08:11→20:45)
[2022-02-19] MEDS: NYSTATIN 500,000 UNIT/5 ML UDC 500000 UNIT PO ×4 (08:11→20:45)
[2022-02-19] MEDS: Multivitamins,Therapeutic Tablet 1 TABLET PO (08:11)
[2022-02-19] MEDS: Calcium Carb/Vitamin D 1 TABLET Tablet PO (08:11)
[2022-02-19] MEDS: APIXABAN 5 MG TABLET PO ×2 (08:12→20:45)
[2022-02-19] MEDS: Fluconazole 100 MG Tablet PO (08:12)
[2022-02-19] MEDS: Ensure Plus High Protein 120 ML LIQUID PO ×4 (08:14→20:44)
[2022-02-19 13:32] VITALS: BMI 19.0
[2022-02-19 20:01] VITALS: BP 113/59; PULSE 79; RESP 17; TEMP 36.7; O2SAT 95
[2022-02-19] MEDS: MELATONIN 3 MG TABLET PO (20:44)
[2022-02-19 20:45] VITALS: BP 113/59; PULSE 79; O2SAT 95
[2022-02-19] MEDS: Atorvastatin Calcium 40 MG Tablet PO (20:45)
[2022-02-19] MEDS: Mirtazapine 15 MG Tablet PO (20:45)
[2022-02-20 07:36] VITALS: BP 118/55; PULSE 73; RESP 16; TEMP 36.9; O2SAT 96
[2022-02-20 07:46] VITALS: BP 118/55; PULSE 73
[2022-02-20] MEDS: Metoprolol Tartrate 25 MG Tablet 12.5 MG PO (07:46)
[2022-02-20] MEDS: Pantoprazole Sodium 40 MG Tablet PO (07:46)
[2022-02-20] MEDS: NYSTATIN 500,000 UNIT/5 ML UDC 500000 UNIT PO ×3 (07:46→16:57)
[2022-02-20] MEDS: Aspirin 81 MG TAB.CHEW PO (07:48)
[2022-02-20] MEDS: Calcium Carb/Vitamin D 1 TABLET Tablet PO (07:48)
[2022-02-20] MEDS: APIXABAN 5 MG TABLET PO (07:48)
[2022-02-20] MEDS: Multivitamins,Therapeutic Tablet 1 TABLET PO (07:48)
[2022-02-20] MEDS: Fluconazole 100 MG Tablet PO (07:49)
[2022-02-20] MEDS: Ensure Plus High Protein 120 ML LIQUID PO ×3 (07:49→16:57)
[2022-02-20 12:33] VITALS: BMI 19.0
--- NOTE | 2022-02-20 16:15 | TREXTCAR_ITS ---
Diet Diet Order/Speech Therapy: 02/08/22 17:44 Diet: Cardiac - Heart Healthy Food consistency:: Regular Liquid Consistency:: Regular/Thin Type of Dietary Supplement:: Magic Cup Dessert Is pt able to select menu?: No Diet Comments: magic cup BID w/ lunch and dinner Routine Orders/Code Status Enema Type: Fleetz Enema Frequency: Daily PRN Suppository Type: Dulcolax 10mg Suppository Frequency: Daily PRN O2 Liters per Minute: 1-2 O2 Frequency: PRN Keep PO Greater than or Equal to (%): 90 Routine Lab Work: - (CBC, BMP in the AM. ) Code Status: DNRCC-A (no intubation and no chest compressions - Discussed with her dtr Phil on 02/20/22. ) Therapies Weight Bearing: Full weight bearing Physical Therapy: Eval and Treat Occupational Therapy: Eval and Treat Speech Therapy: Eval and Treat Problem/Diagnosis (1) Acute ischemic cerebrovascular accident (CVA) involving middle cerebral artery territory: Status: Acute Code(s): I63.519 - Cerebral infarction due to unspecified occlusion or stenosis of unspecified middle cerebral artery Plan: Continue therapy. she is making good progress and her outlook for receovery has improved. Comment: 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 (2) Paroxysmal A-fib: Status: Acute Code(s): I48.0 - Paroxysmal atrial fibrillation Plan: Start Eliquis tonight. Comment: Was not on anticoagulation because of some blood in the sputum when she had COVID and a heme + stool in the ED. No cough now and the GI bleeding has been addressed by Dr. Sanon. Anticoagulation was started on 02/15/22. CBC ordered for 02/21/22. (3) Aphasia complicating stroke: Status: Acute Plan: More fluent and able to partcipate in conversation now. Tends to have been trouble answering questions and getting her words out when she is anxious. Comment: receptive and expressive (4) Left-sided weakness: Status: Acute Code(s): R53.1 - Weakness Plan: Improving. (5) Facial droop due to acute cerebrovascular accident (CVA): Status: Acute Code(s): I63.9 - Cerebral infarction, unspecified; R29.810 - Facial weakness Plan: Much improved (6) Dehydration, moderate: Status: Acute Code(s): E86.0 - Dehydration Plan: This is a recurring problem. She does not get enough fluid intake even with constant encouragement to drink from the nurses and the therapists. (7) Normochromic normocytic anemia: Status: Acute Code(s): D64.9 - Anemia, unspecified Plan: Stable at 10.1. No stomach pain. On Protonix 40 mg BID. Will need to follow up with Dr. Sanon in the future. Comment: EGD on 02/08/2022 showed a medium size hiatal hernia, esophageal stenosis which was dilated, a single bleeding angiodysplastic lesion in the stomach, a few Jono ulcers treated with a heater probe and a single nonbleeding angiodysplastic lesion in the duodenum which was also treated with a heater probe. (8) Esophageal stenosis: Status: Acute Code(s): K22.2 - Esophageal obstruction Plan: Dilated on 02/08/[address] Sanon. (9) Angiodysplasia of duodenum: Status: Acute Code(s): K31.819 - Angiodysplasia of stomach and duodenum without bleeding Plan: Treated with a heater probe on 02/08/[address] Sanon (10) Angiodysplasia of stomach: Status: Acute Code(s): K31.819 - Angiodysplasia of stomach and duodenum without bleeding Plan: Treated with a heater probe on 02/08/[address] Sanon. (11) Hiatal hernia: Status: Acute Code(s): K44.9 - Diaphragmatic hernia without obstruction or gangrene (12) GERD (gastroesophageal reflux disease): Status: Acute Code(s): K21.9 - Gastro-esophageal reflux disease without esophagitis (13) Depression: Status: Acute Code(s): F32.A - Depression, unspecified Plan: Doing better and is eating well on Remeron. She is no longer tearful and she is talkative and smiling now. She still gets anxious at times. (14) Thrush of mouth and esophagus: Status: Acute Code(s): B37.81 - Candidal esophagitis; B37.0 - Candidal stomatitis Plan: Much better with Diflucan and she has finished 8/10 days of Diflucan. Odynophagia has resolved with Diflucan. Plan 1. Transfer to TCU for additional therapy prior to returning home with family. 2. Check a CBC and BMP in the AM. 3. Continue to encourage increased fluid intake as she is constantly dehydrated. 4. Finish 10 days of Diflucan for treatment of thrush and suspected candidal es ophagitis with odynophagia which has resolved with Diflucan. Allergies/Procedures Done in Hospital Allergies ranolazine [From Ranexa] Adverse Reaction (Severe, Verified 01/28/22 20:55) low urine output, rash oseltamivir [From Tamiflu] Adverse Reaction (Verified 01/28/22 20:55) Unknown Procedures: EGD (02/08/[address] Sanon. At that time she had esophageal dilation, a heater probe to a few Jono ulcers and 2 areas of angiodysplasia. s of dysplasia it) Type of Care/Length of Stay Estimated LOS: Convalescent Care Less Than 30 days Type of Care Needed: Skilled Rehab Potential: Fair Prognosis: Fair Additional Orders/Day of Discharge H&P will serve as current which was dated: 01/30/22 Day of Discharge: 02/20/22 Dietary and Speech Recommendations Dietitian Recommendations/Changes: Cardiac diet with consistency as per [employer]. Continue 120 ml ensure plus high protein 4 times per day w/ medpass for additional calories/protein. Continue magic cup BID w/ lunch and dinner for tolerance. Adjust ONS as needed. Follow Up Care Please follow up with your Primary Care Physician in: Dr. Shahid following DC from TCU Please Follow Up With: Jim Sanon DO When: following DC from TCU for follow up on esophageal stenosis/ulcer/angiodyspl Please Follow Up With: neurology Please Follow Up With: Mauro Davis MD When: following DC from TCU for PAF Discharge Plan Admission Admit Date/Time: 01/28/22 19:56 Primary Reason for Your Visit: debility due to embolic CVA Attending Provider: Paulette Cortez Primary Care Provider: Errol Shahid Consulting Providers: Jim Sanon Instructions Additional Instructions / Restrictions: I talked with Yoana's dtr Yue on 02/20/22 regarding the code status and explained the meaning and what is done with each level. She would like to have the code status to DNR CCA with no intubation. I did change it in the EMR prior to DC from rehab. Discharge Orders/Prescriptions Prescriptions: New acetaminophen 500 mg Tablet 1,000 mg PO Q8 PRN (Reason: fever/pain 1-10) Qty: 0 0RF Eliquis 5 mg Tablet 5 mg PO BID Qty: 0 0RF aspirin 81 mg Tablet,Chewable 81 mg PO BREAKFAST Qty: 0 0RF atorvastatin 40 mg Tablet 40 mg PO QHS Qty: 0 0RF bisacodyl 10 mg Suppository 10 mg MT .PRN X 1 PRN (Reason: Constipation) Qty: 0 0RF calcium carbonate-vitamin D3 [Oyster Shell Calcium-Vit D3] 500 mg-5 mcg (200 unit) Tablet 1 tab PO BREAKFAST Qty: 0 0RF Ensure Plus High Protein 0.08 gram-1.5 kcal/mL Liquid 120 ml PO 4X/DAY Qty: 0 0RF fluconazole 100 mg Tablet 100 mg PO DAILY Qty: 2 0RF Rx Instructions: Take 1 tab daily and discontinue after the dose on 02/22/22 magnesium hydroxide 400 mg/5 mL Suspension 30 ml PO .PRN X 1 PRN (Reason: Constipation) Qty: 0 0RF melatonin 3 mg Tablet 3 mg PO QHS Qty: 0 0RF sennosides-docusate sodium [Stool Softener-Stimulant Laxat] 8.6-50 mg Tablet 2 tab PO BID PRN (Reason: bowel mobility) Qty: 0 0RF pantoprazole 40 mg Tablet,Delayed Release (Dr/Ec) 40 mg PO BID Qty: 0 0RF mirtazapine 15 mg Tablet 15 mg PO QHS Qty: 0 0RF metoprolol tartrate 25 mg Tablet 12.5 mg PO BID Qty: 0 0RF Continued calcium carbonate-vitamin D3 1 EACH tablet 1 ea PO DAILY Discontinued pantoprazole [Protonix] 40 mg tablet,delayed release (DR/EC) 40 mg PO DAILY 90 Days Qty: 90 Label Comments: mirtazapine 7.5 mg tablet 7.5 mg PO QHS melatonin 3 mg capsule 3 mg PO HS simvastatin 40 MG tablet 40 mg PO QHS Label Comments: multivitamin 1 EACH tablet 1 tab PO DAILY aspirin [Aspir-81] 81 mg Tablet,Delayed Release (Dr/Ec) 81 mg PO DAILY metoprolol tartrate 50 mg tablet 25 mg PO BID Referrals / Follow Up: Errol Shahid MD [Primary Care Provider] - Disposition Disposition (needs filled in before D/C Order can be placed): [facility]
[2022-02-20 16:56] VITALS: BMI 19.0
[2022-02-20 16:57] VITALS: BP 118/55; PULSE 73; RESP 16; TEMP 36.9; O2SAT 96
--- NOTE | 2022-02-20 16:58 | PCM.DC.SUM ---
Providers Date of Admission: 01/28/22 Date of Discharge: 02/20/22 Primary Care Physician: Dr. Errol Shahid MD Consultations 02/07/22 14:59 Consult: Gastroenterology Routine Consulting Provider: Jim Sanon Reason for Consult: heme + stool with anemia EMERGENT Consult: No MD Notified: Yes Date Notified: 02/07/22 Time Notified: 14:59 Method of Notification: Text Reason For Visit: CVA Diagnosis Discharge Diagnosis (1) Acute ischemic cerebrovascular accident (CVA) involving middle cerebral artery territory: Status: Acute Code(s): I63.519 - Cerebral infarction due to unspecified occlusion or stenosis of unspecified middle cerebral artery Plan: Likely embolic due to known PAF in pt not on anticoagulation. (2) Paroxysmal A-fib: Status: Acute Code(s): I48.0 - Paroxysmal atrial fibrillation Plan: Was not on anticoagulation because she had hemoptysis (when she had COVID PNA) and she had a heme + stool in the ED once. No hemoptysis now and she had an EGD that showed esophageal stenosis (it was dilated), Jono ulcers (treated with a heat probe) and 2 areas of angiodysplasia (1 in the stomach and 1 in the duodenum) that were treated with a heat probe also. (3) Aphasia complicating stroke: Status: Acute Plan: (4) Left-sided weakness: Status: Acute Code(s): R53.1 - Weakness Plan: Improving. (5) Facial droop due to acute cerebrovascular accident (CVA): Status: Acute Code(s): I63.9 - Cerebral infarction, unspecified; R29.810 - Facial weakness Plan: Much improved (6) Dehydration, moderate: Status: Acute Code(s): E86.0 - Dehydration Plan: This is a recurring problem. She does not get enough fluid intake even with constant encouragement to drink from the nurses and the therapists. (7) Normochromic normocytic anemia: Status: Acute Code(s): D64.9 - Anemia, unspecified Plan: Stable at 10.1. No stomach pain. On Protonix 40 mg BID. Will need to follow up with Dr. Sanon in the future. (8) Esophageal stenosis: Status: Acute Code(s): K22.2 - Esophageal obstruction Plan: Dilated on 02/08/[address] Sanon. (9) Angiodysplasia of duodenum: Status: Acute Code(s): K31.819 - Angiodysplasia of stomach and duodenum without bleeding Plan: Treated with a heater probe on 02/08/[address] Sanon (10) Angiodysplasia of stomach: Status: Acute Code(s): K31.819 - Angiodysplasia of stomach and duodenum without bleeding Plan: Treated with a heater probe on 02/08/[address] Sanon. (11) Hiatal hernia: Status: Acute Code(s): K44.9 - Diaphragmatic hernia without obstruction or gangrene (12) GERD (gastroesophageal reflux disease): Status: Acute Code(s): K21.9 - Gastro-esophageal reflux disease without esophagitis (13) Depression: Status: Acute Code(s): F32.A - Depression, unspecified Plan: Doing better and is eating well on Remeron. She is no longer tearful and she is talkative and smiling now. She still gets anxious at times. (14) Thrush of mouth and esophagus: Status: Acute Code(s): B37.81 - Candidal esophagitis; B37.0 - Candidal stomatitis Plan: Much better with Diflucan and she has finished 8/10 days of Diflucan. Odynophagia has resolved with Diflucan. Plan 1. Transfer to TCU for additional therapy prior to returning home with family. 2. Check a CBC and BMP in the AM. 3. Continue to encourage increased fluid intake as she is constantly dehydrated. 4. Finish 10 days of Diflucan for treatment of thrush and suspected candidal esophagitis with odynophagia which has resolved with Diflucan. Medications at Discharge Home Medications calcium carbonate 600 mg-vitamin D3 20 mcg (800 unit) tablet 1 ea PO DAILY Vitamin supplement 04/15/17 acetaminophen 500 mg tablet 1,000 mg PO Q8 PRN fever/pain 1-10 #0 tabs 02/20/22 apixaban 5 mg tablet (Eliquis) 5 mg PO BID #0 tabs 02/20/22 aspirin 81 mg chewable tablet 81 mg PO BREAKFAST #0 tabs 02/20/22 atorvastatin 40 mg tablet 40 mg PO QHS #0 tabs 02/20/22 bisacodyl 10 mg rectal suppository 10 mg VA .PRN X 1 PRN Constipation #0 ea 02/20/22 calcium carbonate 500 mg-vitamin D3 5 mcg (200 unit) tablet (Oyster Shell Calcium-Vitamin D3) 1 tab PO BREAKFAST #0 tabs 02/20/22 fluconazole 100 mg tablet 100 mg PO DAILY #2 tabs 02/20/22 food supplemt, lactose-reduced 0.08 gram-1.5 kcal/mL oral liquid (Ensure Plus High Protein) 120 ml PO 4X/DAY #0 mL 02/20/22 magnesium hydroxide 400 mg/5 mL oral suspension 30 ml PO .PRN X 1 PRN Constipation #0 mL 02/20/22 melatonin 3 mg tablet 3 mg PO QHS #0 tabs 02/20/22 metoprolol tartrate 25 mg tablet 12.5 mg PO BID #0 tabs 02/20/22 mirtazapine 15 mg tablet 15 mg PO QHS #0 tabs 02/20/22 pantoprazole 40 mg tablet,delayed release 40 mg PO BID #0 tabs 02/20/22 sennosides 8.6 mg-docusate sodium 50 mg tablet (Stool Softener-Stimulant Laxative) 2 tab PO BID PRN bowel mobility #0 tabs 02/20/22 Hospital Course Operations None Procedures EGD (02/08/[address] Jim Sanon.) Summary of Care Provided Minutes Spent on Discharge: 45 Hospital Course: TEJA Valle is a 81-year-old female who was brought to the emergency department at [facility] on 01/19/2022 complaining of facial droop, slurred speech and left-sided weakness. Noncontrast brain CT showed findings suggestive of an acute infarct involving the right basal ganglia with probable thrombus in the right middle cerebral artery. CTA of the head and neck showed occlusion of the right middle cerebral artery branch just distal to its origin with reconstitution of the M2 segments. Teleneurology was consulted and recommended transfer to [facility] for possible intervention. She had a thrombectomy at [facility] and received tiki [address] head on 01/22/2022 showed continued evolution of right basal ganglia infarct, a right temporal lobe infarct and a right cerebellar infarct. There was hemorrhagic transformation of the right basal ganglia infarct that was stable. Transthoracic echocardiogram showed an EF of 60 to 65% with severe left atrial enlargement. Recommendations at discharge from [facility] were to continue aspirin 81 mg daily until anticoagulation was initiated and they recommended starting Eliquis if no contraindication on 02/16/2022. Yoana was transferred to the acute inpatient rehab unit at [facility] on 01/28/2022 for 3 hours of therapy daily to restore function at or near her level prior to the stroke. Yoana's this past summer and she was severely depressed at presentation to rehab. She was started on Remeron 7.5 mg Q HS and appetite improved with 1-2 days. She had no adverse SE's and the dose was increased to 15 mg Q HS which she is also tolerating with no adverse side effect. Hemoglobin at admission to rehab was 10.1, it was 12.7 in the ED the day of the stroke. It then dropped to 9.4 and a heme stool was positive. Dr. Sanon was consulted for GI evaluation/EGD prior to potentially starting anticoagulation on 02/16/22. EGD was performed on 02/08/2022 and findings included esophageal stenosis, 1 angiodysplastic lesion in the stomach, a few Jono ulcers in the stomach and a single angiodysplastic lesion in the duodenum. The esophagus was dilated and the other areas were treated with a heat probe. She was placed on Protonix 40 mg BID. The HGB is now stable. She was started on Eliquis on 02/15 and a CBC is ordered for 02/20/22. She has had no hemoptysis, no hematochezia, no black stool and no hematemesis. She continues to eat well and she denies abdominal pain, odynophagia and N/V. Yoana is chronically dehydrated and we have had to hydrate with IV fluids on a few occasions. Even with constant encouragement she is still no taking adequate fluids. She denies lightheadedness at [place]. A BMP has been ordered for 02/21/22. She has done well with therapy and she is now talking more and ambulating. At the time of discharge she has completed three 4 inch steps at contact-guard assist of 2 with 2 handrails. She has ambulated up to 75 feet with a wheeled walker at minimal assistance. She is able to do 5 sit to stands in 30 seconds. See is supervision/set up for eating and requires only minimal assistance with grooming. She is still total assistance with bathing and lower body dressing. She is max assist with upper body dressing. Still requiring total assistance with toileting, toilet transfer and tub/shower transfer. The depression is doing better and she is much more alert during the day. She is sleeping good at night and is eating 50-75% of most of her meals. She was transferred to TCU on 02/20/22 for additional therapy and destination after TCU will be determined closer to the date she will DC. Physical Exam Const alert Constitutional Narrative: She is oriented to person but, she is not able to tell me how old she is, where she is, why she is here and what month or year it is. She is pleasant and told me she needed to get out of bed but, not why she needed to get out of bed.......the nurses were able to figure out that she wanted to sit in the recliner. No longer so tearful. General Appearance: cooperative HEENT normocephalic HEENT Narrative: The tongue is no longer coated with a thick yellow brown exudate. She denies odynophagia. Mouth: dry mucous membranes Eyes PERRL and EOMs intact bilaterally Neck supple General: trachea midline Resp normal respiratory effort and clear to auscultation bilaterally Cardio regular rate, regular rhythm and no gallops Cardio Narrative: Patient will ectopic beat. Goes in and out of AF and the rate is well controlled when she is in AF. GI normal to inspection, nondistended, normoactive bowel sounds, soft to palpation and non-tender GI Narrative: No guarding with palpation. BS's are not hyperactive. Extremity no calf tenderness General Extremity: Negative for edema Skin General Skin Exam: no breakdown Rashes: no rashes Wounds: Negative for wounds noted Neuro Neuro Narrative: Facial droop has improved significantly. She still has Left side weakness in the arm and the leg. She is able to follow simple commands at least 50% of the time. Speech is less slurred. She has no sensory loss. Psych Psych Narrative: Affect is not so flat and she is much less tearful. She smiles frequently now. There is more modulation to her voice now and she is talking more and able to participate in a conversation better. She is overwhelmed with too many people in the room at one time. Has been getting up in the chair more often and is much more alert in the day. Weight / BMI Weight Weight: 97 lb 14.164 oz Body Mass Index (BMI) 19.0 ABG / Lab / Microbiology Data Result Diagrams: 02/13/22 05:39 02/13/22 05:39 Microbiology: Microbiology 01/30/22 19:00 Stool Stool Occult Blood ([facility]ANCI) - Final Occult Blood Positive D/C Instructions Please Follow Up With: Jim Sanon, DO Meaningful Use Info Meaningful Use Diagnoses (Choose all that apply): Ischemic CVA CVA Therapy Assessed for PT,OT and/or ST?: Yes Ischemic Stroke Antithrombotic order at d/c?: Yes Dx of Atrial fib/flutter?: Yes Anticoagulant at discharge?: Yes Statins at discharge?: Yes Primary Dx Acute Ischemic CVA?: Yes IV tPA ordered during stay?: No Reason IV t-PA not ordered: Treatment not Indicated Discharge Plan Admission Admit Date/Time: 01/28/22 19:56 Primary Reason for Your Visit: debility due to embolic CVA Attending Provider: Paulette Cortez Primary Care Provider: Errol Shahid Consulting Providers: Jim Sanon Instructions Additional Instructions / Restrictions: I talked with Yoana's dtr Yue on 02/20/22 regarding the code status and explained the meaning and what is done with each level. She would like to have the code status to DNR CCA with no intubation. I did change it in the EMR prior to DC from rehab. Discharge Orders/Prescriptions Prescriptions: New acetaminophen 500 mg Tablet 1,000 mg PO Q8 PRN (Reason: fever/pain 1-10) Qty: 0 0RF Eliquis 5 mg Tablet 5 mg PO BID Qty: 0 0RF aspirin 81 mg Tablet,Chewable 81 mg PO BREAKFAST Qty: 0 0RF atorvastatin 40 mg Tablet 40 mg PO QHS Qty: 0 0RF bisacodyl 10 mg Suppository 10 mg VA .PRN X 1 PRN (Reason: Constipation) Qty: 0 0RF calcium carbonate-vitamin D3 [Oyster Shell Calcium-Vit D3] 500 mg-5 mcg (200 unit) Tablet 1 tab PO BREAKFAST Qty: 0 0RF Ensure Plus High Protein 0.08 gram-1.5 kcal/mL Liquid 120 ml PO 4X/DAY Qty: 0 0RF fluconazole 100 mg Tablet 100 mg PO DAILY Qty: 2 0RF Rx Instructions: Take 1 tab daily and discontinue after the dose on 02/22/22 magnesium hydroxide 400 mg/5 mL Suspension 30 ml PO .PRN X 1 PRN (Reason: Constipation) Qty: 0 0RF melatonin 3 mg Tablet 3 mg PO QHS Qty: 0 0RF sennosides-docusate sodium [Stool Softener-Stimulant Laxat] 8.6-50 mg Tablet 2 tab PO BID PRN (Reason: bowel mobility) Qty: 0 0RF pantoprazole 40 mg Tablet,Delayed Release (Dr/Ec) 40 mg PO BID Qty: 0 0RF mirtazapine 15 mg Tablet 15 mg PO QHS Qty: 0 0RF metoprolol tartrate 25 mg Tablet 12.5 mg PO BID Qty: 0 0RF Continued calcium carbonate-vitamin D3 1 EACH tablet 1 ea PO DAILY Discontinued pantoprazole [Protonix] 40 mg tablet,delayed release (DR/EC) 40 mg PO DAILY 90 Days Qty: 90 Label Comments: mirtazapine 7.5 mg tablet 7.5 mg PO QHS melatonin 3 mg capsule 3 mg PO HS simvastatin 40 MG tablet 40 mg PO QHS Label Comments: multivitamin 1 EACH tablet 1 tab PO DAILY aspirin [Aspir-81] 81 mg Tablet,Delayed Release (Dr/Ec) 81 mg PO DAILY metoprolol tartrate 50 mg tablet 25 mg PO BID Referrals / Follow Up: Errol Shahid MD [Primary Care Provider] - Disposition Disposition (needs filled in before D/C Order can be placed): Group Home Facility Charges/Coding Visit Charges Inpatient E&M: 44607 Disch Hosp
--- NOTE | 2022-02-20 17:57 | NURSING ---
discharged to tcu report called to [facility]
== END 2022-02-20 18:01 | disposition skilled nursing facility (03) | DRG 56 ==
PROVIDERS: Internal Medicine Gastroenterology; Admitting Provider Internal Medicine; PCP Family Medicine; Visit Provider Internal Medicine
PROC: 0DJ08ZZ Inspection of Upper Intestinal Tract, Via Natural or Artificial Opening Endoscopic (ICD-10-PCS; CPT 43235; principal; 2022-02-08 11:55)
DX: I69.354 Hemiplegia and hemiparesis following cerebral infarction affecting left non-dominant side (principal); K31.811 Angiodysplasia of stomach and duodenum with bleeding; K25.4 Chronic or unspecified gastric ulcer with hemorrhage; B37.81 Candidal esophagitis; B37.0 Candidal stomatitis; K22.2 Esophageal obstruction; I48.0 Paroxysmal atrial fibrillation; F41.8 Other specified anxiety disorders; I25.10 Atherosclerotic heart disease of native coronary artery without angina pectoris; I10 Essential (primary) hypertension; I95.1 Orthostatic hypotension; K44.9 Diaphragmatic hernia without obstruction or gangrene; K21.9 Gastro-esophageal reflux disease without esophagitis; D50.0 Iron deficiency anemia secondary to blood loss (chronic); E78.00 Pure hypercholesterolemia, unspecified; I69.392 Facial weakness following cerebral infarction; I69.328 Other speech and language deficits following cerebral infarction; I69.320 Aphasia following cerebral infarction; I69.391 Dysphagia following cerebral infarction; Z86.16 Personal history of COVID-19; Z79.82 Long term (current) use of aspirin; Z79.899 Other long term (current) drug therapy
CPT/HCPCS: 36415; 80048; 80053; 82274; 82570; 83735; 84100; 84300; 85014; 85018; 85027; 85610; 85730; 87811; 92507; 92523; 92526; 92610; 93005; 97110; 97112; 97116; 97162; 97166; 97530; 97535; 97802; 99251; J7030; J7040; J7120; A4216; G0463; J2405

== ENCOUNTER 2022-02-20 18:00 | Inpatient (IN) | payer MEDICARE, OTHER, SELFPAY ==
[2022-02-20 18:10] VITALS: BP 153/57; PULSE 76; RESP 18; TEMP 36.4; O2SAT 100; BMI 20.2
--- NOTE | 2022-02-20 18:35 | NURSING ---
Speech order entered for recent CVA.
--- NOTE | 2022-02-20 19:09 | PCM.HP.STD ---
HPI - General General Date of Admission: 02/20/22 Date of Service: 02/21/22 Chief Complaint: Here for rehabilitation. HPI Narrative 01/19/2022 ALTA MAYA, is a 81 Female who presents to [facility] Emergency Department with facial droop, slurred speech, left hemiparesis. CT brain acute right stroke, right MCA thrombosis. Troponin 3300. Transfer to [facility], taken to OR for thrombectomy. MRI brain right cerebellar stroke with hemorrhagic conversion. Aspirin 81mg daily, Atorvastatin 40mg qhs, start Eliquis 02/16/2022. 01/28/2022 Admit to [facility]. PT/OT/ST. 01/31/2022 Decrease Metoprolol, give IV fluids for orthostatic hypotension. Stool guaiac positive, anemic, consult Dr. Sanon. Mirtazapine for decreased appetite. 02/02/2022 Decreased oral intake, incontinent of urine. Encourage oral intake, continue IV fluids. 02/03/2022 Expressive/Receptive aphasia. 02/06/2022 Walking better with walker. Pantoprazole 40mg daily for upper GI bleed. 02/07/2022 Increase Mirtazapine to 15mg at bedtime. 02/08/2022 Dr. Sanon EGD bleeding angiodysplastic lesion in stomach, nicky ulcers hiatal hernia, angiodysplastic lesion duodenum, all treated with heater probe. Pantoprazole 40mg twice daily. 02/09/2022 Encourage PO intake. 02/12/2022 Oral intake improved. 02/13/2022 Creatinine improved from 1.26 to 0.7. 02/15/2022 Stop IV fluids. Fluconazole x 10 days for thrush. 02/20/2022 Admit to TCU with debility, here for rehabilitation, strengthening, prior to disposition determination. [facility] Medical History Acute coronary syndrome Arthritis Atherosclerosis of coronary artery of yu[place]iatam heart without angina pectoris Atrial fibrillation Cardiology follow-up encounter Cholelithiasis Depression Dyspnea Essential hypertension GERD (gastroesophageal reflux disease) GIB (gastrointestinal bleeding) Hiatal hernia History of hiatal hernia History of renal disease History of stress test Hyperlipidemia IBS (irritable bowel syndrome) Irregular heart beat Kidney stones Leg cramps Migraine headache New onset atrial fibrillation (11/07/21) Non-smoker Osteoporosis Other chronic sinusitis Paroxysmal A-fib Pneumonia Polyp of nasal cavity Shingles Stroke/cerebrovascular accident Wears glasses Wears hearing aid Home Medications calcium carbonate 600 mg-vitamin D3 20 mcg (800 unit) tablet 1 ea PO DAILY Vitamin supplement 04/15/17 [History Last Taken 04/14/17] acetaminophen 500 mg tablet 1,000 mg PO Q8 PRN fever/pain 1-10 #0 tabs 02/20/22 [Rx Last Taken Unknown] apixaban 5 mg tablet (Eliquis) 5 mg PO BID Blood Thinner 02/20/22 [History Last Taken Unknown] aspirin 81 mg chewable tablet 81 mg PO BREAKFAST Heart 02/20/22 [History Last Taken Unknown] atorvastatin 40 mg tablet 40 mg PO QHS Cholesterol 02/20/22 [History Last Taken Unknown] bisacodyl 10 mg rectal suppository 10 mg IN .PRN X 1 PRN Constipation #0 ea 02/20/22 [Rx Last Taken Unknown] calcium carbonate 500 mg-vitamin D3 5 mcg (200 unit) tablet (Oyster Shell Calcium-Vitamin D3) 1 tab PO BREAKFAST Supplement 02/20/22 [History Last Taken Unknown] fluconazole 100 mg tablet 100 mg PO DAILY Yeast 02/20/22 [History Last Taken Unknown] food supplemt, lactose-reduced 0.08 gram-1.5 kcal/mL oral liquid (Ensure Plus High Protein) 120 ml PO 4X/DAY Supplement 02/20/22 [History Last Taken Unknown] magnesium hydroxide 400 mg/5 mL oral suspension 30 ml PO .PRN X 1 PRN Constipation #0 mL 02/20/22 [Rx Last Taken Unknown] melatonin 3 mg tablet 3 mg PO QHS Sleep 02/20/22 [History Last Taken Unknown] metoprolol tartrate 25 mg tablet 12.5 mg PO BID BP 02/20/22 [History Last Taken Unknown] mirtazapine 15 mg tablet 15 mg PO QHS Check with primary doctor 02/20/22 [History Last Taken Unknown] pantoprazole 40 mg tablet,delayed release 40 mg PO BID GERD 02/20/22 [History Last Taken Unknown] sennosides 8.6 mg-docusate sodium 50 mg tablet (Stool Softener-Stimulant Laxative) 2 tab PO BID PRN bowel mobility #0 tabs 02/20/22 [Rx Last Taken Unknown] Allergy/AdvReac Type Severity Reaction Status Date / Time ranolazine [From Ranexa] AdvReac Severe low urine Verified 01/28/22 20:55 output, rash oseltamivir [From Tamiflu] AdvReac Unknown Verified 01/28/22 20:55 Family History Father CAD (coronary artery disease) CVA (cerebral vascular accident) Hypertension Mother Hypertension Brother Hypertension Sister Diabetes Other Heart disease Surgical History H/O sinus surgery History of cataract surgery History of left heart catheterization (04/16/17) History of tonsillectomy Social History (Updated 02/20/22 @ 19:[address] Hitesh Cortes MD) household members: none Smoking Status: Never smoker alcohol intake: never substance use type: does not use ROS Constitutional Constitutional: Denies chills, fever(s) or weight gain ENT HEENT: Denies headache(s), nasal congestion or nasal discharge Cardiovascular Cardiovascular: Denies chest pain or palpitations Respiratory/Chest Respiratory/Chest: Denies cough, excessive phlegm production or shortness of breath with exertion Gastrointestinal Gastrointestinal: Denies abdominal pain, nausea or vomiting Genitourinary Genitourinary: Denies dysuria Musculoskeletal Musculoskeletal: Denies joint pain or joint swelling Integumentary Integumentary: Denies rash or wounds Neurologic Neurologic: Denies focal weakness, numbness or tingling Psychiatric Psychiatric: Denies anxiety, auditory hallucinations, depression, homicidal ideation or suicidal ideation Vital Signs Vital Signs Vital Signs: 02/20/22 18:10 Temperature 97.5 F L Temperature Source Temporal Pulse Rate 76 Respiratory Rate 18 Blood Pressure 153/57 H Blood Pressure Mean 89 Blood Pressure Source Monitor Blood Pressure Position Semi-Fowlers Blood Pressure Location Left Arm Pulse Ox 100 Oxygen Delivery Method Room Air Weight Weight: 45.586 kg Body Mass Index (BMI) 20.2 Physical Exam Neuro Neuro Narrative: Left hemiparesis. 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: (4) Left hemiplegia: (5) Expressive aphasia: (6) Receptive aphasia: (7) Upper gastrointestinal bleed: (8) Thrush: (9) Anxiety: (10) Osteoarthritis: (11) Hypertension: (12) GERD (gastroesophageal reflux disease): (13) Hyperlipidemia: (14) Hiatal hernia: (15) Irritable bowel syndrome: (16) Kidney stone: (17) Migraine: (18) Osteoporosis: (19) Atrial fibrillation: PLAN: Plan 81 year old female with below past medical history hospitalized right MCA stroke, underwent thrombectomy, admitted to , transferred to TCU with debility, here for rehabilitation, strengthening, prior to disposition determination. Debility - PT/OT/ST. Pain - Tylenol 1000mg q8 prn. Bowel - senna/colace 2 tablets bid prn. MOM 30ml daily prn, Dulcolax 10mg pr prn. Adult immunization - Administer pneumonia vaccine, covid19 vaccine, flu vaccine as appropriate. DVT prophylaxis - Not necessary, on Eliquis. Atrial fibrillation - Metoprolol 12.5mg bid, Eliquis 5mg bid. Hyperlipidemia - Atorvastatin 40mg qhs. Calcium deficiency - Calcium D 1 tablet daily. Nutrition - Ensure Plus 120ml 4x/day. Thrush - Fluconazole 100mg daily thru 02/22/2022. Insomnia - Melatonin 3mg qhs. Appetite loss - Mirtazapine 15mg at bedtime, stable chronic snf use, GDR not recommended. GERD - Pantoprazole 40mg bid, f/u Dr. Sanon.
[2022-02-20] MEDS: Mirtazapine 15 MG Tablet PO (22:43)
[2022-02-20] MEDS: Atorvastatin Calcium 40 MG Tablet PO (22:43)
[2022-02-20] MEDS: MELATONIN 3 MG TABLET PO (22:43)
[2022-02-20 22:45] VITALS: PULSE 90; RESP 16; O2SAT 94
[2022-02-21 04:49] VITALS: BP 127/67; PULSE 80
[2022-02-21] MEDS: APIXABAN 5 MG TABLET PO ×2 (04:49→17:08)
[2022-02-21] MEDS: Metoprolol Tartrate 25 MG Tablet 12.5 MG PO ×2 (04:49→17:14)
[2022-02-21] MEDS: Fluconazole 100 MG Tablet PO (04:49)
[2022-02-21] MEDS: Pantoprazole Sodium 40 MG Tablet PO ×2 (04:49→17:08)
[2022-02-21 05:42] LABS: Absolute Lymphocyte Count 2.66 X10^3/uL (0.83-4.51); Absolute Neutrophil Count 4.8 X10^3/uL (2.0-7.7); Basophil# 0.05 X10^3/uL; Basophil% 0.5 % (0-1); Eosinophil# 0.42 X10^3/uL; Eosinophils% 4.6 % (0-5); Hematocrit 33.6 % (37-47); Hemoglobin 10.8 g/dL (12.0-15.0); Lymphocyte # 2.66 X10^3/ul (0.83-4.51); Mean Corp Hgb Conc 32.1 g/dL (32-36); Mean Corpuscular Hgb 31.5 pg (27.0-32.0); Mean Platelet Vol. 9.6 fl (6.2-12.0); Monocyte# 1.15 X10^3/uL; Monocyte% 12.6 % (0-10); NRBC Flagged by Analyzer 0 % (0-5); Neutrophil # 4.84 X10^3/uL (2.7-7.7); Neutrophil % 52.9 % (47-70); Platelet Count 354 K/mm3 (150-450); RBC Distribution Width CV 14.6 % (11.6-14.6); RBC Distribution Width SD 53.3 fl (35.1-43.9); Red Blood Count 3.43 M/mm3 (4.2-5.4); White Blood Count 9.2 K/mm3 (4.4-11.0)
[2022-02-21 06:03] LABS: Anion Gap 3 (5-15); BUN 51 mg/dL (7-18); BUN/Creat Ratio 55.4 RATIO (10-20); Calcium,Total 9.5 mg/dL (8.5-10.1); Chloride 106 mmol/L (98-107); Creatinine, Serum 0.92 mg/dL (0.55-1.02); EST Glomerular Filtration Rate 62 mL/min (>60); Est Glom Filt Rate - Afr Amer 76 mL/min (>60); Estimated Creatinine Clearance 35.68 ml/min; Glucose 111 mg/dL (74-106); Potassium 4.6 mmol/L (3.5-5.1); Sodium Level 139 mmol/L (136-145)
[2022-02-21] MEDS: Calcium Carb/Vitamin D 1 TABLET Tablet PO (07:46)
[2022-02-21] MEDS: Acetaminophen 500 MG Tablet 1000 MG PO (07:51)
[2022-02-21] MEDS: Tuberculin,Purif.prot.deriv. 50 TU/ML Vial 0.1 ML ID (09:01)
[2022-02-21 09:05] VITALS: PULSE 75; RESP 16; O2SAT 98
[2022-02-21] MEDS: Ensure Plus High Protein 120 ML LIQUID PO ×2 (11:16→17:10)
--- NOTE | 2022-02-21 11:26 | PHA.CONS_ITS ---
TCU RX Drug Regimen Review Subjective: TCU Admission. 81 YOF presented to the ER with facial droop, slurred speech and left hemiparesis. Hospitalized for right MCA stroke, underwent thrombectomy, admitted to RU. Admitted to TCU with debility for strengthening and rehabilitation. Objective: Allergies ranolazine [From Ranexa] Adverse Reaction (Severe, Verified 01/28/22 20:55) low urine output, rash oseltamivir [From Tamiflu] Adverse Reaction (Verified 01/28/22 20:55) Unknown Current Medications Generic Name Dose Route Start Last Admin Trade Name Freq PRN Reason Stop Dose Admin Acetaminophen 1,000 mg 02/20/22 18:18 02/21/22 07:51 Acetaminophen 500 Mg Tablet PO 1,000 mg Q8H PRN Administration fever/pain 1-10 Apixaban 5 mg 02/21/22 06:00 02/21/22 04:49 Apixaban 5 Mg Tablet PO 5 mg BID YEISON Administration Atorvastatin Calcium 40 mg 02/20/22 22:00 02/20/22 22:43 Atorvastatin Calcium 40 Mg Tablet PO 40 mg QHS YEISON Administration Bisacodyl 10 mg 02/20/22 18:18 Bisacodyl 10 Mg Suppository RC .PRN X 1 PRN Constipation Calcium/Vitamin D 1 tablet 02/21/22 08:00 02/21/22 07:46 Calcium Carb/Vitamin D 1 Tablet Tablet PO 1 tablet BREAKFAST YEISON Administration Fluconazole 100 mg 02/21/22 06:00 02/21/22 04:49 Fluconazole 100 Mg Tablet PO 02/22/22 11:59 100 mg DAILY YEISON Administration Magnesium Hydroxide 30 ml 02/20/22 18:21 Magnesium Hydroxide 30 Ml Udc PO .PRN X 1 PRN Constipation Melatonin 3 mg 02/20/22 22:00 02/20/22 22:43 Melatonin 3 Mg Tablet PO 3 mg QHS YEISON Administration Metoprolol Tartrate 12.5 mg 02/21/22 06:00 02/21/22 04:49 Metoprolol Tartrate 25 Mg Tablet PO 12.5 mg BID YEISON Administration Mirtazapine 15 mg 02/20/22 22:00 02/20/22 22:43 Mirtazapine 15 Mg Tablet PO 15 mg QHS YEISON Administration Nutritional Formula (Lactose Free) 120 ml 02/20/22 22:00 02/21/22 11:16 Ensure Plus High Protein 120 Ml Liquid PO 120 ml 4X/DAY YEISON Administration Pantoprazole Sodium 40 mg 02/21/22 06:00 02/21/22 04:49 Pantoprazole Sodium 40 Mg Tablet PO 40 mg BID YEISON Administration Senna/Docusate Sodium 2 tablet 02/20/22 18:21 Senna/Docusate Sodium 1 Tablet PO BID PRN bowel mobility Tuberculin PPD 0.1 ml 02/28/22 10:00 Tuberculin,Purif.Prot.Deriv. 50 Tu/Ml Vial ID 02/28/22 10:01 X1 ONE Problem List (Last Reviewed 02/20/22 @ 19:[address] 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 (Acute) Acute right MCA stroke (Acute) Debility (Acute) Vital Signs Temp Pulse Resp BP Pulse Ox O2 Del Method 97.5 F L 75 16 127/67 H 98 Room Air 02/20/22 18:10 02/21/22 09:05 02/21/22 09:05 02/21/22 04:49 02/21/22 09:05 02/21/22 09:05 Oxygen Delivery Method Room Air Weight: 45.586 kg Body Mass Index (BMI) 20.2 Sodium 139 mmol/L (136-145) 02/21/22 05:10 Potassium 4.6 mmol/L (3.5-5.1) 02/21/22 05:10 Chloride 106 mmol/L (98-107) 02/21/22 05:10 Carbon Dioxide 30.0 mmol/L (21.0-32.0) 02/21/22 05:10 Anion Gap 3 (5-15) L 02/21/22 05:10 BUN 51 mg/dL (7-18) H 02/21/22 05:10 Creatinine 0.92 mg/dL (0.55-1.02) 02/21/22 05:10 Est GFR (MDRD) Af Amer 76 mL/min (>60) 02/21/22 05:10 Est GFR (MDRD) Non-Af 62 mL/min (>60) 02/21/22 05:10 BUN/Creatinine Ratio 55.4 RATIO (10-20) H 02/21/22 05:10 Glucose 111 mg/dL (74-106) H 02/21/22 05:10 Assessment/Plan: 1. Pain: acetaminophen 1000mg PO Q8H PRN pain 1-10. Resident has received 1 dose for generalized pain score of 5. Please continue to monitor for increased pain and PRN usage. 2. Bowel: senna/docusate 2T PO BID PRN bowel mobility, MOM 30mL PO x1 PRN constipation and bisacodyl 10mg RC x1 PRN constipation. Last documented bowel movement 02/20. Please continue to monitor for constipation and PRN usage (no doses given yet). 3. Atrial fibrillation: metoprolol tartrate 12.5mg PO BID and apixaban 5mg PO BID. Please continue to monitor for S/S of bleeding, hemoglobin (last 10.8g/dL), increased SCr, BP (last 127/67) and HR (last 75). Apixaban dose appropriate at this time. Weight is <60kg but age is <80 and SCr <1.5mg/dL. 4. Thrush: fluconazole 100mg PO daily thru 02/22/22. Please continue to monitor for S/S improving thrush and renal function. 5. Hyperlipidemia: atorvastatin 40mg PO QHS. Please continue to monitor for lipid panel (last 12/30/21), AST/ALT (last 01/29/22) and muscle pain. 6. GERD: pantoprazole 40mg PO BID. Please continue to monitor for S/S of GERD and diarrhea (on BEERs list for increased risk of C. diff infections). 7. Calcium deficiency: calcium/vitamin D 1T PO daily. Please continue to monitor calcium (last 9.5mg/dL) and vitamin D (last 12/30/21). 8. Insomnia: melatonin 3mg PO QHS. Please continue to monitor for excessive drowsiness. Assessment/Plan for indications treated with psychotropic medications: 1. Appetite loss: mirtazapine 15mg PO QHS. Please see physician note regarding GDR. Please continue to monitor for improvement in appetite and excessive drowsiness. Dose recently increased. Medical chart and medication regimen reviewed. The following medication irre gularities or issues were identified: None Date of Note:: 02/21/22
--- NOTE | 2022-02-21 15:06 | CASEMGMT ---
Social Work Met with patient to complete initial assessment. Pt known to this worker from [facility] stay. Confirmed no changes to DNR-CCA, no intubation. Pt unable to complete MOLST form r/t cognition and comprehension of form. Family educated to Medicare benefit and they continue to pursue SNF placement for pt. SW to continue to follow for discharge planning. Leila Whitley, RABIES INSPECTOR CUSTOMER SERVICE DRIVER
[2022-02-21 16:00] VITALS: BP 122/59; PULSE 79; RESP 16; TEMP 36.7; O2SAT 98
[2022-02-21 17:14] VITALS: BP 122/59; PULSE 79
[2022-02-21] MEDS: MELATONIN 3 MG TABLET PO (20:04)
[2022-02-21] MEDS: Atorvastatin Calcium 40 MG Tablet PO (20:04)
[2022-02-21] MEDS: Mirtazapine 15 MG Tablet PO (20:04)
[2022-02-22] MEDS: Acetaminophen 500 MG Tablet 1000 MG PO (01:42)
[2022-02-22 05:52] VITALS: BP 139/60; PULSE 80
[2022-02-22] MEDS: Metoprolol Tartrate 25 MG Tablet 12.5 MG PO ×2 (05:52→17:36)
[2022-02-22] MEDS: Pantoprazole Sodium 40 MG Tablet PO ×2 (05:54→17:36)
[2022-02-22] MEDS: Fluconazole 100 MG Tablet PO (05:55)
[2022-02-22] MEDS: APIXABAN 5 MG TABLET PO ×2 (05:55→17:36)
[2022-02-22] MEDS: Ensure Plus High Protein 120 ML LIQUID PO (05:55)
[2022-02-22] MEDS: Calcium Carb/Vitamin D 1 TABLET Tablet PO (07:53)
--- NOTE | 2022-02-22 08:23 | NURSING ---
SYLVIAA SIGNED RESUSCITATION FORM DNRCC. ORDER PLACED.
[2022-02-22 14:49] VITALS: BP 120/54; PULSE 79; RESP 16; TEMP 36.7; O2SAT 98
--- NOTE | 2022-02-22 16:09 | CHAPLAIN ---
Type of Pastoral Visit _x__ Initial Visit ___ Follow-up Visit ___ On-call Visit ___ General Patient Visit ___ Spiritual Assessment ___ Family Conference ___ Bereavement ___ Rapid Response ___ Code Blue ___ Other (describe below) Pastoral Care Referral From _x__ Patient ___ Family ___ Nurse ___ Physician ___ Cert Pharmacy Tech ___ Gre Instructor ___ Other (describe below) Sacrament/Intervention _x__ Active listening ___ Anointing ___ Jain ___ Bereavement ___ Communion ___ Daniella exploration ___ ___ Life review _x__ Prayer ___ Reconciliation ___ Sacrament of Sick ___ Supportive presence ___ Wedding ___ Other (describe below) Pastoral Comments actual follow up visit to patient that was in [facility]; sat with patient and inquired of her feelings and need of support; pt did answer some questions minimally but did not engage in conversation; pt states some better but still has low affect; pt welcomed presence and prayer
[2022-02-22 17:36] VITALS: PULSE 79
[2022-02-22 20:30] VITALS: O2SAT 98
[2022-02-22] MEDS: Mirtazapine 15 MG Tablet PO (20:30)
[2022-02-22] MEDS: MELATONIN 3 MG TABLET PO (20:30)
[2022-02-22] MEDS: Atorvastatin Calcium 40 MG Tablet PO (20:30)
[2022-02-23] MEDS: Pantoprazole Sodium 40 MG Tablet PO ×2 (05:51→16:53)
[2022-02-23 05:52] VITALS: BP 119/75; PULSE 75
[2022-02-23] MEDS: APIXABAN 5 MG TABLET PO ×2 (05:52→16:53)
[2022-02-23] MEDS: Metoprolol Tartrate 25 MG Tablet 12.5 MG PO ×2 (05:52→16:52)
[2022-02-23] MEDS: Calcium Carb/Vitamin D 1 TABLET Tablet PO (07:43)
--- NOTE | 2022-02-23 12:15 | NURSING ---
Metal Gauge Maker Note; Activity Asset: Eliseo Ziegler is independent in her choice of daily activities. She will read, watch tv talk w/family and attend small group activities w/reminders and assistance to and from them.
[2022-02-23 13:33] VITALS: BP 132/59; PULSE 78; RESP 16; TEMP 36.4; O2SAT 98
[2022-02-23 13:52] VITALS: PULSE 82; O2SAT 98
[2022-02-23 16:52] VITALS: BP 116/53; PULSE 87
[2022-02-23] MEDS: Acetaminophen 500 MG Tablet 1000 MG PO (20:36)
[2022-02-23] MEDS: Mirtazapine 15 MG Tablet PO (20:37)
[2022-02-23] MEDS: MELATONIN 3 MG TABLET PO (20:37)
[2022-02-23] MEDS: Atorvastatin Calcium 40 MG Tablet PO (20:38)
[2022-02-24 05:24] VITALS: BP 134/62; PULSE 76
[2022-02-24] MEDS: Metoprolol Tartrate 25 MG Tablet 12.5 MG PO ×2 (05:24→17:19)
[2022-02-24] MEDS: APIXABAN 5 MG TABLET PO ×2 (05:25→17:56)
[2022-02-24] MEDS: Pantoprazole Sodium 40 MG Tablet PO ×2 (05:26→17:20)
[2022-02-24] MEDS: Calcium Carb/Vitamin D 1 TABLET Tablet PO (07:50)
[2022-02-24] MEDS: Magnesium Hydroxide 30 ML UDC PO (09:07)
[2022-02-24 13:12] VITALS: BP 121/71; PULSE 86; RESP 18; TEMP 36.5; O2SAT 100
[2022-02-24 17:19] VITALS: BP 137/62; PULSE 82
[2022-02-24 20:15] VITALS: O2SAT 97
[2022-02-24] MEDS: Mirtazapine 15 MG Tablet PO (20:20)
[2022-02-24] MEDS: Atorvastatin Calcium 40 MG Tablet PO (20:20)
[2022-02-24] MEDS: MELATONIN 3 MG TABLET PO (20:20)
[2022-02-25 06:06] VITALS: BP 131/66; PULSE 86
[2022-02-25] MEDS: Pantoprazole Sodium 40 MG Tablet PO ×2 (06:06→17:01)
[2022-02-25] MEDS: APIXABAN 5 MG TABLET PO ×2 (06:06→17:00)
[2022-02-25] MEDS: Metoprolol Tartrate 25 MG Tablet 12.5 MG PO ×2 (06:06→17:00)
[2022-02-25] MEDS: Calcium Carb/Vitamin D 1 TABLET Tablet PO (08:37)
[2022-02-25 09:45] VITALS: PULSE 83; RESP 16; O2SAT 96
[2022-02-25 16:00] VITALS: BP 121/55; PULSE 90; RESP 14; TEMP 36.6; O2SAT 97
[2022-02-25 17:00] VITALS: BP 121/55; PULSE 90
[2022-02-25] MEDS: Mirtazapine 15 MG Tablet PO (23:22)
[2022-02-25] MEDS: MELATONIN 3 MG TABLET PO (23:22)
[2022-02-25] MEDS: Atorvastatin Calcium 40 MG Tablet PO (23:22)
[2022-02-26 05:50] VITALS: BP 131/55; PULSE 79
[2022-02-26] MEDS: Metoprolol Tartrate 25 MG Tablet 12.5 MG PO ×2 (05:50→17:40)
[2022-02-26] MEDS: Pantoprazole Sodium 40 MG Tablet PO ×2 (05:51→17:40)
[2022-02-26] MEDS: APIXABAN 5 MG TABLET PO ×2 (05:51→17:40)
[2022-02-26] MEDS: Calcium Carb/Vitamin D 1 TABLET Tablet PO (07:43)
[2022-02-26 15:56] VITALS: BP 140/64; PULSE 78; RESP 20; TEMP 36.6; O2SAT 99
[2022-02-26 17:40] VITALS: BP 140/64; PULSE 78
[2022-02-26] MEDS: MELATONIN 3 MG TABLET PO (23:22)
[2022-02-26] MEDS: Atorvastatin Calcium 40 MG Tablet PO (23:22)
[2022-02-26] MEDS: Mirtazapine 15 MG Tablet PO (23:23)
[2022-02-27 05:57] VITALS: BP 113/53; PULSE 75
[2022-02-27] MEDS: Pantoprazole Sodium 40 MG Tablet PO ×2 (05:57→18:02)
[2022-02-27] MEDS: Metoprolol Tartrate 25 MG Tablet 12.5 MG PO ×2 (05:57→18:02)
[2022-02-27] MEDS: APIXABAN 5 MG TABLET PO ×2 (05:57→18:01)
[2022-02-27] MEDS: Calcium Carb/Vitamin D 1 TABLET Tablet PO (08:30)
--- NOTE | 2022-02-27 09:06 | NURSING ---
Nut Dehydrator Operator Note; MDS Complete
[2022-02-27 14:52] VITALS: BP 124/74; PULSE 80; RESP 14; TEMP 36.2; O2SAT 97
--- NOTE | 2022-02-27 15:05 | CASEMGMT ---
Social Work BIMS (04/26) and PHQ-9 () completed for MDS assessment. Difficulty completing assessment as pts yes/no responses are not consistently accurate. Attempted to explore each response, however, d/t aphasia, pt could not elaborate. Pt did appear distressed, rubbing forehead, some watery eyes. Pt is on Remeron to assist with mood, appetite and sleep. Will continue to monitor. Leila Whitley, CASE MANAGEMENT DIRECTOR RN FAMILY
[2022-02-27 18:02] VITALS: BP 146/63; PULSE 75
[2022-02-27] MEDS: MELATONIN 3 MG TABLET PO (20:35)
[2022-02-27] MEDS: Atorvastatin Calcium 40 MG Tablet PO (20:35)
[2022-02-27] MEDS: Mirtazapine 15 MG Tablet PO (20:35)
[2022-02-28 05:45] VITALS: BP 119/60; PULSE 78
[2022-02-28] MEDS: Metoprolol Tartrate 25 MG Tablet 12.5 MG PO ×2 (05:45→18:16)
[2022-02-28] MEDS: APIXABAN 5 MG TABLET PO ×2 (05:45→18:15)
[2022-02-28] MEDS: Pantoprazole Sodium 40 MG Tablet PO ×2 (05:45→18:16)
[2022-02-28 05:47] LABS: Hematocrit 33.2 % (37-47); Hemoglobin 10.4 g/dL (12.0-15.0); Lymphocyte % 31.3 % (19-41); Mean Corp Hgb Conc 31.3 g/dL (32-36); Mean Corpuscular Hgb 30.8 pg (27.0-32.0); Mean Corpuscular Volume 98.2 fL (81-99); Mean Platelet Vol. 9.8 fl (6.2-12.0); Neutrophil % 51.5 % (47-70); Platelet Count 336 K/mm3 (150-450); RBC Distribution Width CV 14.2 % (11.6-14.6); RBC Distribution Width SD 51.2 fl (35.1-43.9); Red Blood Count 3.38 M/mm3 (4.2-5.4); White Blood Count 8.3 K/mm3 (4.4-11.0)
[2022-02-28 05:48] LABS: Absolute Lymphocyte Count 2.58 X10^3/uL (0.83-4.51); Absolute Neutrophil Count 4.3 X10^3/uL (2.0-7.7); Basophil# 0.04 X10^3/uL; Basophil% 0.5 % (0-1); Eosinophil# 0.42 X10^3/uL; Eosinophils% 5.1 % (0-5); Lymphocyte # 2.58 X10^3/ul (0.83-4.51); Monocyte# 0.94 X10^3/uL; Monocyte% 11.4 % (0-10); NRBC Flagged by Analyzer 0 % (0-5); Neutrophil # 4.25 X10^3/uL (2.7-7.7)
[2022-02-28 06:06] LABS: Anion Gap 4 (5-15); BUN 39 mg/dL (7-18); BUN/Creat Ratio 46.5 RATIO (10-20); Calcium,Total 9.3 mg/dL (8.5-10.1); Chloride 111 mmol/L (98-107); Creatinine, Serum 0.84 mg/dL (0.55-1.02); EST Glomerular Filtration Rate 70 mL/min (>60); Est Glom Filt Rate - Afr Amer 84 mL/min (>60); Estimated Creatinine Clearance 39.08 ml/min; Glucose 109 mg/dL (74-106); Potassium 4.2 mmol/L (3.5-5.1); Sodium Level 143 mmol/L (136-145)
[2022-02-28] MEDS: Calcium Carb/Vitamin D 1 TABLET Tablet PO (08:04)
[2022-02-28] MEDS: Tuberculin,Purif.prot.deriv. 50 TU/ML Vial 0.1 ML ID (11:29)
[2022-02-28 13:51] VITALS: BP 117/57; PULSE 84; RESP 18; TEMP 36.8; O2SAT 96
--- NOTE | 2022-02-28 14:33 | MDS.RN ---
Information for the mds was obtained from review of the clinical record, interview of resident, staff, and direct observation of resident's care.
--- NOTE | 2022-02-28 18:14 | NURSING ---
family reporting that before she was admitted pt c/o vaccine making her feel bad. family wants to discuss before administration.
[2022-02-28 18:16] VITALS: PULSE 70
--- NOTE | 2022-02-28 18:27 | NURSING ---
daughter would like to follow up with her PCP regarding the pneumonia vaccine 20 after discharge.
[2022-02-28] MEDS: Atorvastatin Calcium 40 MG Tablet PO (20:48)
[2022-02-28] MEDS: Mirtazapine 15 MG Tablet PO (20:48)
[2022-02-28] MEDS: MELATONIN 3 MG TABLET PO (20:48)
[2022-02-28 22:00] VITALS: PULSE 78; RESP 16; O2SAT 94
[2022-03-01 05:31] VITALS: BP 123/62; PULSE 70
[2022-03-01] MEDS: Metoprolol Tartrate 25 MG Tablet 12.5 MG PO ×2 (05:31→17:32)
[2022-03-01] MEDS: Pantoprazole Sodium 40 MG Tablet PO ×2 (05:31→17:33)
[2022-03-01] MEDS: APIXABAN 5 MG TABLET PO ×2 (05:31→17:32)
[2022-03-01] MEDS: Calcium Carb/Vitamin D 1 TABLET Tablet PO (07:49)
[2022-03-01 09:50] VITALS: PULSE 76; RESP 18; O2SAT 95
--- NOTE | 2022-03-01 10:54 | CASEMGMT ---
Social Work IDT met with patient and three children for care plan meeting. Discussed patient's progress in PT/OT/ST/SN. Educated to Medicare benefit. Encouraged to contact secondary insurance to ensure copay coverage. IDT made recommendations of 02/10 care for physical and cognitive assist at time of DC. Family is in agreement that pt cannot go home at this time and continuing to pursue SNF placement. Inquired about SNF choices to begin referrals. Reiterated financial liability. Family requesting referrals to [facility] and [facility]. Discussed setting DC date the first week of March. Family agreeable. Referrals made to [facility], [facility] via [facility]. JAKOB Herrera BREAD RACKER
--- NOTE | 2022-03-01 11:53 | NURSING ---
FAMILY STATED TO THIS NURSE THAT THEY DIDNT WANT THE PT TO GET THE COVID BOOSTER OR PNEUMONIA SHOT AT THIS TIME.
[2022-03-01 15:21] VITALS: BP 104/48; PULSE 75; RESP 20; TEMP 36.2; O2SAT 94
--- NOTE | 2022-03-01 16:31 | NURSING ---
FAMILY CAME TO THIS NURSE AND STATED THEY DIDNT WANT TO TAKE THER MOM ALL THE WAY TO [facility] TO SEE DR.ANDREW MATUTE FOR A FOLLOW UP. FAMILY STATED THEY WOULD DISCUSS IT AND LET STAFF KNOW IF THEY WANT A APPOINTMENT WITH A NEUROLOGIST CLOSER. RN AWARE
[2022-03-01 17:32] VITALS: BP 155/68; PULSE 79
[2022-03-01] MEDS: MELATONIN 3 MG TABLET PO (23:19)
[2022-03-01] MEDS: Atorvastatin Calcium 40 MG Tablet PO (23:19)
[2022-03-01] MEDS: Mirtazapine 15 MG Tablet PO (23:19)
[2022-03-01] MEDS: Pramipexole Di-HCl 0.125 MG Tablet PO (23:20)
[2022-03-02 05:52] VITALS: BP 99/48; PULSE 74
[2022-03-02] MEDS: Pantoprazole Sodium 40 MG Tablet PO ×2 (05:53→17:42)
[2022-03-02] MEDS: APIXABAN 5 MG TABLET PO ×2 (05:56→17:42)
[2022-03-02] MEDS: Calcium Carb/Vitamin D 1 TABLET Tablet PO (07:52)
--- NOTE | 2022-03-02 13:58 | NURSING ---
PER PT FAMILY, THEY WANT PT TO WEAR KNEE HIGH ROBEL HOSE EVERY DAY IN MORNING AND OFF AT NIGHT.
[2022-03-02 14:00] VITALS: BP 142/64; PULSE 87; RESP 16; TEMP 36.6; O2SAT 97
[2022-03-02 17:42] VITALS: BP 142/64; PULSE 87
[2022-03-02] MEDS: Metoprolol Tartrate 25 MG Tablet 12.5 MG PO (17:42)
[2022-03-02] MEDS: Pramipexole Di-HCl 0.125 MG Tablet PO (20:18)
[2022-03-02] MEDS: MELATONIN 3 MG TABLET PO (20:18)
[2022-03-02] MEDS: Mirtazapine 15 MG Tablet PO (20:19)
[2022-03-02] MEDS: Atorvastatin Calcium 40 MG Tablet PO (20:19)
[2022-03-02 20:25] VITALS: O2SAT 95
[2022-03-03 04:46] VITALS: BP 137/59; PULSE 79
[2022-03-03] MEDS: Metoprolol Tartrate 25 MG Tablet 12.5 MG PO ×2 (04:46→16:36)
[2022-03-03] MEDS: Pantoprazole Sodium 40 MG Tablet PO ×2 (04:46→16:36)
[2022-03-03] MEDS: APIXABAN 5 MG TABLET PO ×2 (04:46→16:36)
[2022-03-03] MEDS: Calcium Carb/Vitamin D 1 TABLET Tablet PO (07:57)
--- NOTE | 2022-03-03 11:53 | CASEMGMT ---
Social Work SW followed up with [facility] on referral. [facility], admissions, is unable to provide outcome yet. SNF IDT to review next week, and determine bed availability. Adry to contact this worker with outcome. SW spoke with dtr, Sabas, to update. [facility] if FOC. Dtr would like to remove [facility] from options. SW encouraged to have other options. Dtr requested referrals to [facility] and [facility] Dtr to tour next week. SW placed referrals via [facility] and updated [facility]. Will continue to follow. Leila Whitley, MATERIAL CREW SUPERVISOR WOVEN WOOD SHADE ASSEMBLER
[2022-03-03 12:11] VITALS: PULSE 82; O2SAT 96
[2022-03-03 16:36] VITALS: BP 116/62; PULSE 79
[2022-03-03] MEDS: Atorvastatin Calcium 40 MG Tablet PO (20:23)
[2022-03-03] MEDS: Pramipexole Di-HCl 0.125 MG Tablet PO (20:24)
[2022-03-03] MEDS: MELATONIN 3 MG TABLET PO (20:24)
[2022-03-03] MEDS: Mirtazapine 15 MG Tablet PO (20:25)
[2022-03-04 05:24] VITALS: BP 132/70; PULSE 64
[2022-03-04] MEDS: Pantoprazole Sodium 40 MG Tablet PO ×2 (05:24→17:35)
[2022-03-04] MEDS: APIXABAN 5 MG TABLET PO ×2 (05:24→17:35)
[2022-03-04] MEDS: Metoprolol Tartrate 25 MG Tablet 12.5 MG PO ×2 (05:24→17:35)
[2022-03-04] MEDS: Calcium Carb/Vitamin D 1 TABLET Tablet PO (08:01)
[2022-03-04 12:03] VITALS: BP 162/65; PULSE 76; RESP 16; TEMP 36.5; O2SAT 97
[2022-03-04 17:35] VITALS: BP 148/66; PULSE 78
[2022-03-04 20:00] VITALS: PULSE 55; RESP 14; O2SAT 98
[2022-03-04] MEDS: Pramipexole Di-HCl 0.125 MG Tablet PO (20:00)
[2022-03-04] MEDS: Mirtazapine 15 MG Tablet PO (20:00)
[2022-03-04] MEDS: Atorvastatin Calcium 40 MG Tablet PO (20:00)
[2022-03-04] MEDS: MELATONIN 3 MG TABLET PO (20:00)
[2022-03-05 06:17] VITALS: BP 141/56; PULSE 71
[2022-03-05] MEDS: Pantoprazole Sodium 40 MG Tablet PO ×2 (06:17→17:31)
[2022-03-05] MEDS: Metoprolol Tartrate 25 MG Tablet 12.5 MG PO ×2 (06:17→17:31)
[2022-03-05] MEDS: APIXABAN 5 MG TABLET PO ×2 (06:19→17:31)
[2022-03-05] MEDS: Calcium Carb/Vitamin D 1 TABLET Tablet PO (07:49)
[2022-03-05 09:36] VITALS: RESP 16
[2022-03-05] MEDS: Acetaminophen 500 MG Tablet 1000 MG PO (10:19)
[2022-03-05 13:45] VITALS: BP 142/82; PULSE 84; RESP 18; TEMP 36.4; O2SAT 97
[2022-03-05 17:31] VITALS: PULSE 84
[2022-03-05] MEDS: Mirtazapine 15 MG Tablet PO (20:10)
[2022-03-05] MEDS: Atorvastatin Calcium 40 MG Tablet PO (20:11)
[2022-03-05] MEDS: MELATONIN 3 MG TABLET PO (20:11)
[2022-03-05] MEDS: Pramipexole Di-HCl 0.125 MG Tablet PO (20:11)
[2022-03-06 05:17] VITALS: BP 161/67; PULSE 78
[2022-03-06] MEDS: Metoprolol Tartrate 25 MG Tablet 12.5 MG PO ×2 (05:17→17:42)
[2022-03-06] MEDS: Pantoprazole Sodium 40 MG Tablet PO ×2 (05:17→17:42)
[2022-03-06] MEDS: APIXABAN 5 MG TABLET PO ×2 (05:17→17:42)
[2022-03-06] MEDS: Calcium Carb/Vitamin D 1 TABLET Tablet PO (07:40)
[2022-03-06 13:45] VITALS: BP 134/64; PULSE 74; RESP 74; TEMP 36.8; O2SAT 98
[2022-03-06] MEDS: Acetaminophen 500 MG Tablet 1000 MG PO (14:13)
--- NOTE | 2022-03-06 14:27 | NURSING ---
THERAPY CAME TO THIS NURSE AND STATED PT COMPLAINING OF PAIN AND VERY EMOTIONAL. THIS NURSE ASKED PT WHAT WAS WRONG AND PT STATED SHE WASN'T FEELING GOOD. THIS NURSE TOOK PT TO BATHROOM CLEANED HER UP, CHANGED ATTENDS,PUT PT TO BED AND GOT PRN TYLENOL FOR HER. PT STATED SHE WAS TIRED. VISITORS IN ROOM STATED THEY WOULD GO AND PT STARTED CRYING AGAIN. STATED TO VISITORS IT WAS OK FOR THEM TO STAY AND TALKED TO PT TILL SHE FELT BETTER. VISITORS STATED OK,THANK YOU. WILL CONTINUE TO MONITOR. RN AWARE
[2022-03-06 16:48] VITALS: PULSE 81; RESP 16; O2SAT 97
[2022-03-06 17:42] VITALS: BP 134/64; PULSE 81
[2022-03-06] MEDS: Mirtazapine 15 MG Tablet PO (19:26)
[2022-03-06] MEDS: Pramipexole Di-HCl 0.125 MG Tablet PO (19:27)
[2022-03-06] MEDS: MELATONIN 3 MG TABLET PO (19:27)
[2022-03-06] MEDS: Atorvastatin Calcium 40 MG Tablet PO (19:27)
[2022-03-07 04:54] VITALS: BP 143/65; PULSE 68
[2022-03-07] MEDS: Metoprolol Tartrate 25 MG Tablet 12.5 MG PO ×2 (04:54→17:26)
[2022-03-07] MEDS: Pantoprazole Sodium 40 MG Tablet PO ×2 (04:54→17:25)
[2022-03-07] MEDS: APIXABAN 5 MG TABLET PO ×2 (04:54→17:25)
[2022-03-07] MEDS: Menthol/Lanolin/Calamine/Znox 113 GM Tube 1 APPLIC TOPICAL ×2 (04:54→17:25)
[2022-03-07 05:34] LABS: Absolute Lymphocyte Count 2.29 X10^3/uL (0.83-4.51); Absolute Neutrophil Count 4.8 X10^3/uL (2.0-7.7); Basophil# 0.05 X10^3/uL; Basophil% 0.6 % (0-1); Eosinophil# 0.48 X10^3/uL; Eosinophils% 5.5 % (0-5); Hematocrit 32.9 % (37-47); Hemoglobin 10.6 g/dL (12.0-15.0); Lymphocyte # 2.29 X10^3/ul (0.83-4.51); Lymphocyte % 26.5 % (19-41); Mean Corp Hgb Conc 32.2 g/dL (32-36); Mean Corpuscular Volume 96.2 fL (81-99); Mean Platelet Vol. 9.8 fl (6.2-12.0); Monocyte% 11.6 % (0-10); NRBC Flagged by Analyzer 0 % (0-5); Neutrophil % 55.5 % (47-70); Platelet Count 268 K/mm3 (150-450); RBC Distribution Width CV 13.8 % (11.6-14.6); RBC Distribution Width SD 48.9 fl (35.1-43.9); Red Blood Count 3.42 M/mm3 (4.2-5.4); White Blood Count 8.7 K/mm3 (4.4-11.0)
[2022-03-07 05:53] LABS: Anion Gap 5 (5-15); BUN 30 mg/dL (7-18); BUN/Creat Ratio 38.8 RATIO (10-20); Calcium,Total 9.2 mg/dL (8.5-10.1); Chloride 111 mmol/L (98-107); Creatinine, Serum 0.77 mg/dL (0.55-1.02); EST Glomerular Filtration Rate 76 mL/min (>60); Est Glom Filt Rate - Afr Amer 92 mL/min (>60); Estimated Creatinine Clearance 32.76 ml/min; Glucose 108 mg/dL (74-106); Potassium 3.9 mmol/L (3.5-5.1); Sodium Level 142 mmol/L (136-145)
[2022-03-07] MEDS: Calcium Carb/Vitamin D 1 TABLET Tablet PO (07:58)
[2022-03-07 12:40] VITALS: PULSE 83; RESP 18; O2SAT 96
[2022-03-07 14:16] VITALS: BP 155/73; PULSE 94; RESP 18; TEMP 36.8; O2SAT 96
--- NOTE | 2022-03-07 15:34 | CASEMGMT ---
Social Work Telephone call from patient daughter, Yue. Yue inquired about the [facility] referral status. Telephone call to the [facility], Adry. Adry reports to not have any opens but to call back Sunday to check on possible openings. Telephone call to Yue. This clinical social worker updated Yue on above information. This clinical social worker inquired if Yue has a second option for patient. Yue reports to have visited [facility] today and that is not an option. Yue reports to have visited the [facility] ([facility]) and that the [facility] would be second choice for patient. Yue aware that no formal discharge date has been set but with tentative plan for patient to discharge next week. Social Work to continue to follow. PLAN: Extended Care Facility. Ryan ROBERT, J LUIS
[2022-03-07 17:26] VITALS: BP 155/73; PULSE 94
[2022-03-07] MEDS: MELATONIN 3 MG TABLET PO (20:52)
[2022-03-07] MEDS: Atorvastatin Calcium 40 MG Tablet PO (20:52)
[2022-03-07] MEDS: Mirtazapine 15 MG Tablet PO (20:52)
[2022-03-07] MEDS: Pramipexole Di-HCl 0.125 MG Tablet PO (20:53)
[2022-03-08 05:07] VITALS: BP 131/57; PULSE 64
[2022-03-08] MEDS: Metoprolol Tartrate 25 MG Tablet 12.5 MG PO ×2 (05:07→17:19)
[2022-03-08] MEDS: APIXABAN 5 MG TABLET PO ×2 (05:07→17:19)
[2022-03-08] MEDS: Pantoprazole Sodium 40 MG Tablet PO ×2 (05:07→17:26)
[2022-03-08] MEDS: Menthol/Lanolin/Calamine/Znox 113 GM Tube 1 APPLIC TOPICAL ×2 (05:10→17:25)
[2022-03-08] MEDS: Calcium Carb/Vitamin D 1 TABLET Tablet PO (07:45)
[2022-03-08 13:54] VITALS: BP 133/59; PULSE 84; RESP 16; TEMP 36.9
--- NOTE | 2022-03-08 16:47 | CASEMGMT ---
Social Work Confirmed acceptance with [facility]. Left message with [facility] to f/u on bed availability to set DC date. Will continue to follow. Leila Whitley, STRATEGY INTERN INSOLE LIP TURNER
[2022-03-08 17:19] VITALS: BP 129/55; PULSE 81
[2022-03-08] MEDS: MELATONIN 3 MG TABLET PO (20:29)
[2022-03-08] MEDS: Pramipexole Di-HCl 0.125 MG Tablet PO (20:29)
[2022-03-08] MEDS: Mirtazapine 15 MG Tablet PO (20:29)
[2022-03-08 20:30] VITALS: O2SAT 98
[2022-03-08] MEDS: Atorvastatin Calcium 40 MG Tablet PO (20:30)
[2022-03-09 05:35] VITALS: BP 130/54; PULSE 76
[2022-03-09] MEDS: Metoprolol Tartrate 25 MG Tablet 12.5 MG PO ×2 (05:35→17:15)
[2022-03-09] MEDS: Pantoprazole Sodium 40 MG Tablet PO ×2 (05:48→17:15)
[2022-03-09] MEDS: APIXABAN 5 MG TABLET PO ×2 (05:50→17:14)
[2022-03-09] MEDS: Menthol/Lanolin/Calamine/Znox 113 GM Tube 1 APPLIC TOPICAL ×2 (06:03→17:16)
[2022-03-09] MEDS: Calcium Carb/Vitamin D 1 TABLET Tablet PO (08:11)
--- NOTE | 2022-03-09 09:46 | CASEMGMT ---
Addendum entered by Leila Whitley 03/10/22 16:53: PASRR completed and sent to [facility] Original Note: Social Work SW spoke with Adry at [facility] on bed availability. They do not have any beds currently. SW contacted dtr to update. Offered for pt to DC to [facility] and when beds open in [facility], pt can transfer. Dtr agreeable to [facility]. SW inquired about DC preference. Dtr requesting DC / and can transport pt. SW updated [facility]. Plan: DC 1/4, [facility], nonskilled, private pay Leila Whitley, JAKOB ESCALERAW
[2022-03-09 10:18] VITALS: PULSE 79; RESP 16; O2SAT 97
[2022-03-09 14:49] VITALS: BP 115/60; PULSE 80; RESP 18; TEMP 36.7; O2SAT 96
[2022-03-09 17:15] VITALS: BP 115/60; PULSE 80
--- NOTE | 2022-03-09 18:32 | PCM.DC.SUM ---
Providers Date of Admission: 02/20/22 Primary Care Physician: Dr. Errol Shahid MD Reason For Visit: CVA Diagnosis Discharge Diagnosis (1) Debility: Status: Acute Code(s): R53.81 - Other malaise (2) Acute right MCA stroke: Status: Acute Code(s): I63.511 - Cerebral infarction due to unspecified occlusion or stenosis of right middle cerebral artery (3) 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: Status: Acute Code(s): I63.541 - Cerebral infarction due to unspecified occlusion or stenosis of right cerebellar artery (4) Left hemiplegia: Status: Acute Code(s): G81.94 - Hemiplegia, unspecified affecting left nondominant side (5) Expressive aphasia: Status: Acute Code(s): R47.01 - Aphasia (6) Receptive aphasia: Status: Acute Code(s): R47.01 - Aphasia (7) Upper gastrointestinal bleed: Status: Acute Code(s): K92.2 - Gastrointestinal hemorrhage, unspecified (8) Thrush: Status: Acute Code(s): B37.0 - Candidal stomatitis (9) Anxiety: Status: Acute Code(s): F41.9 - Anxiety disorder, unspecified (10) Osteoarthritis: Status: Acute Code(s): M19.90 - Unspecified osteoarthritis, unspecified site (11) Hypertension: Status: Chronic Code(s): I10 - Essential (primary) hypertension (12) GERD (gastroesophageal reflux disease): Status: Acute Code(s): K21.9 - Gastro-esophageal reflux disease without esophagitis (13) Hyperlipidemia: Status: Acute Code(s): E78.5 - Hyperlipidemia, unspecified (14) Hiatal hernia: Status: Acute Code(s): K44.9 - Diaphragmatic hernia without obstruction or gangrene (15) Irritable bowel syndrome: Status: Acute Code(s): K58.9 - Irritable bowel syndrome without diarrhea (16) Kidney stone: Status: Acute Code(s): N20.0 - Calculus of kidney (17) Migraine: Status: Acute Code(s): G43.909 - Migraine, unspecified, not intractable, without status migrainosus (18) Osteoporosis: Status: Acute Code(s): M81.0 - Age-related osteoporosis without current pathological fracture (19) Atrial fibrillation: Status: Acute Code(s): I48.91 - Unspecified atrial fibrillation Plan 81 year old female with below past medical history hospitalized right MCA stroke, underwent thrombectomy, admitted to , transferred to TCU with debility, here for rehabilitation, strengthening, prior to disposition determination. Debility - PT/OT/ST. Pain - Tylenol 1000mg q8 prn. Bowel - senna/colace 2 tablets bid prn. MOM 30ml daily prn, Dulcolax 10mg pr prn. Adult immunization - Administer pneumonia vaccine, covid19 vaccine, flu vaccine as appropriate. DVT prophylaxis - Not necessary, on Eliquis. Atrial fibrillation - Metoprolol 12.5mg bid, Eliquis 5mg bid. Hyperlipidemia - Atorvastatin 40mg qhs. Calcium deficiency - Calcium D 1 tablet daily. Nutrition - Ensure Plus 120ml 4x/day. Thrush - Fluconazole 100mg daily thru 02/22/2022. Insomnia - Melatonin 3mg qhs. Appetite loss - Mirtazapine 15mg at bedtime, stable chronic long term acute care registered nurse use, GDR not recommended. GERD - Pantoprazole 40mg bid, f/u Dr. Sanon. Medications at Discharge Home Medications acetaminophen 500 mg tablet 1,000 mg PO Q8 PRN fever/pain 1-10 #0 tabs 02/20/22 apixaban 5 mg tablet (Eliquis) 5 mg PO BID Blood Thinner 02/20/22 atorvastatin 40 mg tablet 40 mg PO QHS Cholesterol 02/20/22 calcium carbonate 500 mg-vitamin D3 5 mcg (200 unit) tablet (Oyster Shell Calcium-Vitamin D3) 1 tab PO BREAKFAST Supplement 02/20/22 melatonin 3 mg tablet 3 mg PO QHS Sleep 02/20/22 metoprolol tartrate 25 mg tablet 12.5 mg PO BID BP 02/20/22 mirtazapine 15 mg tablet 15 mg PO QHS Check with primary doctor 02/20/22 pantoprazole 40 mg tablet,delayed release 40 mg PO BID GERD 02/20/22 menthol 0.44 %-zinc oxide 20.6 % topical ointment (Calmoseptine) 1 applic topical BID #0 grams 03/09/22 pramipexole 0.125 mg tablet 0.125 mg PO QHS #0 tabs 03/09/22 Hospital Course Operations None Procedures None Summary of Care Provided Minutes Spent on Discharge: 35 Hospital Course: 81 year old female with below past medical history hospitalized right MCA stroke, underwent thrombectomy, admitted to , transferred to TCU with debility, here for rehabilitation, strengthening, prior to disposition determination. Discharge to [facility] 03/15/2021, nonskilled, private pay. Physical Exam Const alert General Appearance: cooperative HEENT normocephalic Eyes PERRL and EOMs intact bilaterally Neck supple, no JVD and no carotid bruits Resp normal respiratory effort, normal air movement and clear to auscultation bilaterally Cardio regular rate and regular rhythm GI normal to inspection, nondistended, normoactive bowel sounds, non-tender and non-distended Extremity normal capillary refill General Extremity: Negative for edema Skin no rashes or lesions noted General Skin Exam: no breakdown Psych affect normal Appearance: appropriate Weight / BMI Weight Weight: 46.13 kg Body Mass Index (BMI) 20.2 ABG / Lab / Microbiology Data Result Diagrams: 03/07/22 05:00 03/07/22 05:00 Microbiology: Microbiology 02/24/22 05:40 Nasal Secretion SARS-CoV-2 Antigen (Rapid) - Final 02/22/22 10:43 Nasal Secretion SARS-CoV-2 Antigen (Rapid) - Final D/C Instructions Discharge Diet: No restrictions Discharge Activity: Return to Normal Activity, May Shower and Use Walker Weight Bearing Status: Weight bearing as tolerated Call your doctor if you observe: Fever of 101 or Higher, Inability to urinate, Inability to have a bowel movement, Shortness of breath, Dizziness, Fainting spells, Swelling in the ankles, Chest pain and Uncontrolled pain Additional Instructions: Discharge to [facility] 03/15/2021, nonskilled, private pay. Meaningful Use Info Meaningful Use Diagnoses (Choose all that apply): Ischemic CVA CVA Therapy Assessed for PT,OT and/or ST?: Yes Ischemic Stroke Antithrombotic order at d/c?: Yes Dx of Atrial fib/flutter?: Yes Anticoagulant at discharge?: Yes Statins at discharge?: Yes Primary Dx Acute Ischemic CVA?: Yes IV tPA ordered during stay?: No Reason IV t-PA not ordered: Treatment not Indicated Discharge Plan Admission Admit Date/Time: 02/20/22 18:00 Primary Reason for Your Visit: Debility. Attending Provider: Hitesh Cortes Chi Primary Care Provider: Errol Shahid Instructions Additional Instructions / Restrictions: Discharge to [facility] 03/15/2021, nonskilled, private pay. Discharge Orders/Prescriptions Prescriptions: New menthol-zinc oxide [Calmoseptine] 0.44-20.6 % Ointment 1 applic topical BID Qty: 0 0RF Protocol: *Topical Application Instructions APPLICATION INSTRUCTIONS: Apply to coccyx pramipexole 0.125 mg Tablet 0.125 mg PO QHS Qty: 0 0RF Continued acetaminophen 500 mg Tablet 1,000 mg PO Q8 PRN (Reason: fever/pain 1-10) Qty: 0 0RF atorvastatin 40 mg tablet 40 mg PO QHS melatonin 3 mg tablet 3 mg PO QHS pantoprazole 40 mg tablet,delayed release (DR/EC) 40 mg PO BID mirtazapine 15 mg tablet 15 mg PO QHS metoprolol tartrate 25 mg tablet 12.5 mg PO BID calcium carbonate-vitamin D3 [Oyster Shell Calcium-Vit D3] 500 mg-5 mcg (200 unit) tablet 1 tab PO BREAKFAST Eliquis 5 mg tablet 5 mg PO BID Discontinued calcium carbonate-vitamin D3 1 EACH tablet 1 ea PO DAILY bisacodyl 10 mg Suppository 10 mg [place] .PRN X 1 PRN (Reason: Constipation) Qty: 0 0RF magnesium hydroxide 400 mg/5 mL Suspension 30 ml PO .PRN X 1 PRN (Reason: Constipation) Qty: 0 0RF sennosides-docusate sodium [Stool Softener-Stimulant Laxat] 8.6-50 mg Tablet 2 tab PO BID PRN (Reason: bowel mobility) Qty: 0 0RF fluconazole 100 mg tablet 100 mg PO DAILY Rx Instructions: Take 1 tab daily and discontinue after the dose on 02/22/22 aspirin 81 mg tablet,chewable 81 mg PO BREAKFAST Ensure Plus High Protein 0.08 gram-1.5 kcal/mL liquid 120 ml PO 4X/DAY Referrals / Follow Up: Errol Shahid MD [Primary Care Provider] - Disposition Disposition (needs filled in before D/C Order can be placed): NonSkilled MI/Intermed Care
--- NOTE | 2022-03-09 18:38 | TREXTCAR_ITS ---
Diet Diet Order/Speech Therapy: 02/20/22 18:24 Diet: Cardiac - Heart Healthy Food consistency:: Regular Liquid Consistency:: Regular/Thin Type of Dietary Supplement:: magic cup Diet Comments: Magic cup w/Lunch and Dinner Routine Orders/Code Status Code Status: [facility] Wound(s) Right forearm scab: Wound Type: Scab Therapies Weight Bearing: Weight bearing as tolerated Extremity Affected:: Bilateral Lower Physical Therapy: Eval and Treat Occupational Therapy: Eval and Treat Speech Therapy: Eval and Treat Problem/Diagnosis (1) Debility: Status: Acute Code(s): R53.81 - Other malaise (2) Acute right MCA stroke: Status: Acute Code(s): I63.511 - Cerebral infarction due to unspecified occlusion or stenosis of right middle cerebral artery (3) 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: Status: Acute Code(s): I63.541 - Cerebral infarction due to unspecified occlusion or stenosis of right cerebellar artery (4) Left hemiplegia: Status: Acute Code(s): G81.94 - Hemiplegia, unspecified affecting left nondominant side (5) Expressive aphasia: Status: Acute Code(s): R47.01 - Aphasia (6) Receptive aphasia: Status: Acute Code(s): R47.01 - Aphasia (7) Upper gastrointestinal bleed: Status: Acute Code(s): K92.2 - Gastrointestinal hemorrhage, unspecified (8) Thrush: Status: Acute Code(s): B37.0 - Candidal stomatitis Comment: with suspected esophagitis (9) Anxiety: Status: Acute Code(s): F41.9 - Anxiety disorder, unspecified (10) Osteoarthritis: Status: Acute Code(s): M19.90 - Unspecified osteoarthritis, unspecified site (11) Hypertension: Status: Chronic Code(s): I10 - Essential (primary) hypertension (12) GERD (gastroesophageal reflux disease): Status: Acute Code(s): K21.9 - Gastro-esophageal reflux disease without esophagitis (13) Hyperlipidemia: Status: Acute Code(s): E78.5 - Hyperlipidemia, unspecified (14) Hiatal hernia: Status: Acute Code(s): K44.9 - Diaphragmatic hernia without obstruction or gangrene (15) Irritable bowel syndrome: Status: Acute Code(s): K58.9 - Irritable bowel syndrome without diarrhea (16) Kidney stone: Status: Acute Code(s): N20.0 - Calculus of kidney (17) Migraine: Status: Acute Code(s): G43.909 - Migraine, unspecified, not intractable, without status migrainosus (18) Osteoporosis: Status: Acute Code(s): M81.0 - Age-related osteoporosis without current pathological fracture (19) Atrial fibrillation: Status: Acute Code(s): I48.91 - Unspecified atrial fibrillation Plan 81 year old female with below past medical history hospitalized right MCA stroke, underwent thrombectomy, admitted to , transferred to TCU with debility, here for rehabilitation, strengthening, prior to disposition determination. * Debility - PT/OT/ST. * Pain - Tylenol 1000mg q8 prn. * Bowel - senna/colace 2 tablets bid prn. MOM 30ml daily prn, Dulcolax 10mg pr prn. * Adult immunization - Administer pneumonia vaccine, covid19 vaccine, flu vaccine as appropriate. * DVT prophylaxis - Not necessary, on Eliquis. * Atrial fibrillation - Metoprolol 12.5mg bid, Eliquis 5mg bid. * Hyperlipidemia - Atorvastatin 40mg qhs. * Calcium deficiency - Calcium D 1 tablet daily. * Nutrition - Ensure Plus 120ml 4x/day. * Thrush - Fluconazole 100mg daily thru 02/22/2022. * Insomnia - Melatonin 3mg qhs. * Appetite loss - Mirtazapine 15mg at bedtime, stable chronic custodial use, GDR not recommended. * GERD - Pantoprazole 40mg bid, f/u Dr. Sanon. Allergies/Procedures Done in Hospital Allergies ranolazine [From Ranexa] Adverse Reaction (Severe, Verified 01/28/22 20:55) low urine output, rash oseltamivir [From Tamiflu] Adverse Reaction (Verified 01/28/22 20:55) Unknown Procedures: None Type of Care/Length of Stay Estimated LOS: More Than 30 Days Type of Care Needed: Intermediate Rehab Potential: Fair Prognosis: Fair Additional Orders/Day of Discharge Additional Orders: part B PT/OT/ST Day of Discharge: 03/15/22 Dietary and Speech Recommendations Dietitian Recommendations/Changes: Will continue liberalized diet of Regular - consistency per TRACK ANNOUNCER Will continue magic cup to bid at lunch and dinner. Discharge Plan Admission Admit Date/Time: 02/20/22 18:00 Primary Reason for Your Visit: Debility. Attending Provider: Hitesh Cortes Chi Primary Care Provider: Errol Shahid Instructions Additional Instructions / Restrictions: Discharge to [facility] 03/15/2021, nonskilled, private pay. Discharge Orders/Prescriptions Prescriptions: New menthol-zinc oxide [Calmoseptine] 0.44-20.6 % Ointment 1 applic topical BID Qty: 0 0RF Protocol: *Topical Application Instructions APPLICATION INSTRUCTIONS: Apply to coccyx pramipexole 0.125 mg Tablet 0.125 mg PO QHS Qty: 0 0RF Continued acetaminophen 500 mg Tablet 1,000 mg PO Q8 PRN (Reason: fever/pain 1-10) Qty: 0 0RF atorvastatin 40 mg tablet 40 mg PO QHS melatonin 3 mg tablet 3 mg PO QHS pantoprazole 40 mg tablet,delayed release (DR/EC) 40 mg PO BID mirtazapine 15 mg tablet 15 mg PO QHS metoprolol tartrate 25 mg tablet 12.5 mg PO BID calcium carbonate-vitamin D3 [Oyster Shell Calcium-Vit D3] 500 mg-5 mcg (200 unit) tablet 1 tab PO BREAKFAST Eliquis 5 mg tablet 5 mg PO BID Discontinued calcium carbonate-vitamin D3 1 EACH tablet 1 ea PO DAILY bisacodyl 10 mg Suppository 10 mg [place] .PRN X 1 PRN (Reason: Constipation) Qty: 0 0RF magnesium hydroxide 400 mg/5 mL Suspension 30 ml PO .PRN X 1 PRN (Reason: Constipation) Qty: 0 0RF sennosides-docusate sodium [Stool Softener-Stimulant Laxat] 8.6-50 mg Tablet 2 tab PO BID PRN (Reason: bowel mobility) Qty: 0 0RF fluconazole 100 mg tablet 100 mg PO DAILY Rx Instructions: Take 1 tab daily and discontinue after the dose on 02/22/22 aspirin 81 mg tablet,chewable 81 mg PO BREAKFAST Ensure Plus High Protein 0.08 gram-1.5 kcal/mL liquid 120 ml PO 4X/DAY Referrals / Follow Up: Errol Shahid MD [Primary Care Provider] - Disposition Disposition (needs filled in before D/C Order can be placed): NonSkilled NH/Intermed Care
[2022-03-09] MEDS: Mirtazapine 15 MG Tablet PO (20:02)
[2022-03-09] MEDS: Pramipexole Di-HCl 0.125 MG Tablet PO (20:02)
[2022-03-09] MEDS: Atorvastatin Calcium 40 MG Tablet PO (20:02)
[2022-03-09] MEDS: MELATONIN 3 MG TABLET PO (20:02)
[2022-03-10 05:32] VITALS: BP 129/51; PULSE 85
[2022-03-10] MEDS: APIXABAN 5 MG TABLET PO ×2 (05:32→17:26)
[2022-03-10] MEDS: Metoprolol Tartrate 25 MG Tablet 12.5 MG PO ×2 (05:32→17:26)
[2022-03-10] MEDS: Pantoprazole Sodium 40 MG Tablet PO ×2 (05:32→17:27)
[2022-03-10] MEDS: Menthol/Lanolin/Calamine/Znox 113 GM Tube 1 APPLIC TOPICAL ×2 (05:34→17:33)
[2022-03-10] MEDS: Calcium Carb/Vitamin D 1 TABLET Tablet PO (08:09)
[2022-03-10 15:57] VITALS: BP 119/51; PULSE 79; RESP 14; TEMP 37.1; O2SAT 95
[2022-03-10 17:26] VITALS: BP 117/62; PULSE 80
[2022-03-10] MEDS: Mirtazapine 15 MG Tablet PO (21:04)
[2022-03-10] MEDS: MELATONIN 3 MG TABLET PO (21:04)
[2022-03-10] MEDS: Pramipexole Di-HCl 0.125 MG Tablet PO (21:04)
[2022-03-10] MEDS: Atorvastatin Calcium 40 MG Tablet PO (21:04)
[2022-03-11] MEDS: APIXABAN 5 MG TABLET PO ×2 (04:35→17:14)
[2022-03-11 04:36] VITALS: BP 133/55; PULSE 78
[2022-03-11] MEDS: Pantoprazole Sodium 40 MG Tablet PO ×2 (04:36→17:15)
[2022-03-11] MEDS: Metoprolol Tartrate 25 MG Tablet 12.5 MG PO ×2 (04:36→17:14)
[2022-03-11] MEDS: Menthol/Lanolin/Calamine/Znox 113 GM Tube 1 APPLIC TOPICAL ×2 (04:37→17:18)
[2022-03-11] MEDS: Calcium Carb/Vitamin D 1 TABLET Tablet PO (08:44)
[2022-03-11 14:33] VITALS: BP 120/55; PULSE 80; RESP 17; TEMP 36.6; O2SAT 95
[2022-03-11 17:14] VITALS: BP 139/67; PULSE 86
[2022-03-11] MEDS: Pramipexole Di-HCl 0.125 MG Tablet PO (21:05)
[2022-03-11] MEDS: Mirtazapine 15 MG Tablet PO (21:05)
[2022-03-11] MEDS: MELATONIN 3 MG TABLET PO (21:05)
[2022-03-11] MEDS: Atorvastatin Calcium 40 MG Tablet PO (21:05)
[2022-03-12 05:06] VITALS: BP 149/65; PULSE 80
[2022-03-12] MEDS: Metoprolol Tartrate 25 MG Tablet 12.5 MG PO ×2 (05:06→19:44)
[2022-03-12] MEDS: APIXABAN 5 MG TABLET PO ×2 (05:07→18:19)
[2022-03-12] MEDS: Pantoprazole Sodium 40 MG Tablet PO ×2 (05:07→18:18)
[2022-03-12] MEDS: Acetaminophen 500 MG Tablet 1000 MG PO (05:07)
[2022-03-12] MEDS: Calcium Carb/Vitamin D 1 TABLET Tablet PO (08:34)
[2022-03-12] MEDS: Menthol/Lanolin/Calamine/Znox 113 GM Tube 1 APPLIC TOPICAL ×2 (08:34→18:21)
[2022-03-12 15:25] VITALS: BP 128/56; PULSE 78; RESP 18; TEMP 37.1; O2SAT 97
[2022-03-12 19:44] VITALS: BP 136/60; PULSE 73
[2022-03-12] MEDS: Atorvastatin Calcium 40 MG Tablet PO (19:44)
[2022-03-12] MEDS: Pramipexole Di-HCl 0.125 MG Tablet PO (19:44)
[2022-03-12] MEDS: MELATONIN 3 MG TABLET PO (19:44)
[2022-03-12] MEDS: Mirtazapine 15 MG Tablet PO (19:44)
[2022-03-12 20:30] VITALS: O2SAT 96
[2022-03-13 04:57] VITALS: BP 134/59; PULSE 68
[2022-03-13] MEDS: Metoprolol Tartrate 25 MG Tablet 12.5 MG PO ×2 (04:57→17:57)
[2022-03-13] MEDS: APIXABAN 5 MG TABLET PO ×2 (04:58→17:57)
[2022-03-13] MEDS: Pantoprazole Sodium 40 MG Tablet PO ×2 (04:58→17:57)
[2022-03-13] MEDS: Menthol/Lanolin/Calamine/Znox 113 GM Tube 1 APPLIC TOPICAL ×2 (05:00→20:30)
[2022-03-13] MEDS: Calcium Carb/Vitamin D 1 TABLET Tablet PO (08:41)
[2022-03-13 10:00] VITALS: O2SAT 96
[2022-03-13 13:53] VITALS: BP 121/59; PULSE 80; RESP 16; TEMP 36.3; O2SAT 96
[2022-03-13 17:57] VITALS: BP 142/66; PULSE 83
[2022-03-13] MEDS: Mirtazapine 15 MG Tablet PO (20:29)
[2022-03-13] MEDS: Pramipexole Di-HCl 0.125 MG Tablet PO (20:30)
[2022-03-13] MEDS: Atorvastatin Calcium 40 MG Tablet PO (20:30)
[2022-03-13] MEDS: MELATONIN 3 MG TABLET PO (20:30)
[2022-03-14 05:52] LABS: Absolute Lymphocyte Count 2.91 X10^3/uL (0.83-4.51); Absolute Neutrophil Count 3.6 X10^3/uL (2.0-7.7); Basophil# 0.05 X10^3/uL; Basophil% 0.6 % (0-1); Eosinophil# 0.39 X10^3/uL; Hematocrit 31.1 % (37-47); Hemoglobin 10.1 g/dL (12.0-15.0); Lymphocyte # 2.91 X10^3/ul (0.83-4.51); Lymphocyte % 37.5 % (19-41); Mean Corp Hgb Conc 32.5 g/dL (32-36); Mean Corpuscular Hgb 31.3 pg (27.0-32.0); Mean Corpuscular Volume 96.3 fL (81-99); Mean Platelet Vol. 9.7 fl (6.2-12.0); Monocyte# 0.81 X10^3/uL; Monocyte% 10.5 % (0-10); NRBC Flagged by Analyzer 0 % (0-5); Neutrophil # 3.56 X10^3/uL (2.7-7.7); Platelet Count 238 K/mm3 (150-450); RBC Distribution Width CV 13.2 % (11.6-14.6); RBC Distribution Width SD 47.6 fl (35.1-43.9); Red Blood Count 3.23 M/mm3 (4.2-5.4); White Blood Count 7.8 K/mm3 (4.4-11.0)
[2022-03-14 06:00] VITALS: BP 128/57; PULSE 79; RESP 16; TEMP 36.4; O2SAT 97
[2022-03-14 06:26] VITALS: BP 128/57; PULSE 79
[2022-03-14] MEDS: APIXABAN 5 MG TABLET PO ×2 (06:26→17:21)
[2022-03-14] MEDS: Pantoprazole Sodium 40 MG Tablet PO ×2 (06:26→17:21)
[2022-03-14] MEDS: Metoprolol Tartrate 25 MG Tablet 12.5 MG PO ×2 (06:26→17:20)
[2022-03-14 06:27] LABS: Anion Gap 5 (5-15); BUN 31 mg/dL (7-18); Calcium,Total 8.8 mg/dL (8.5-10.1); Chloride 110 mmol/L (98-107); EST Glomerular Filtration Rate 74 mL/min (>60); Est Glom Filt Rate - Afr Amer 90 mL/min (>60); Estimated Creatinine Clearance 41.53 ml/min; Glucose 110 mg/dL (74-106); Potassium 3.8 mmol/L (3.5-5.1); Sodium Level 141 mmol/L (136-145)
[2022-03-14] MEDS: Menthol/Lanolin/Calamine/Znox 113 GM Tube 1 APPLIC TOPICAL ×2 (06:30→17:19)
[2022-03-14] MEDS: Calcium Carb/Vitamin D 1 TABLET Tablet PO (08:01)
[2022-03-14 17:20] VITALS: BP 155/68; PULSE 82
[2022-03-14 20:20] VITALS: BP 124/58; PULSE 74; RESP 17; TEMP 37.1; O2SAT 96
[2022-03-14] MEDS: Pramipexole Di-HCl 0.125 MG Tablet PO (20:34)
[2022-03-14] MEDS: Atorvastatin Calcium 40 MG Tablet PO (20:34)
[2022-03-14] MEDS: Mirtazapine 15 MG Tablet PO (20:34)
[2022-03-14] MEDS: MELATONIN 3 MG TABLET PO (20:34)
[2022-03-15 05:53] VITALS: BP 148/63; PULSE 85
[2022-03-15] MEDS: Metoprolol Tartrate 25 MG Tablet 12.5 MG PO (05:53)
[2022-03-15] MEDS: APIXABAN 5 MG TABLET PO (05:53)
[2022-03-15] MEDS: Pantoprazole Sodium 40 MG Tablet PO (05:54)
[2022-03-15 05:58] VITALS: BP 148/63; PULSE 85; RESP 16; TEMP 36.3; O2SAT 95
[2022-03-15] MEDS: Menthol/Lanolin/Calamine/Znox 113 GM Tube 1 APPLIC TOPICAL (06:04)
[2022-03-15] MEDS: Calcium Carb/Vitamin D 1 TABLET Tablet PO (08:35)
[2022-03-15 09:47] VITALS: BP 138/65; PULSE 80; RESP 16; TEMP 36.6; O2SAT 96
[2022-03-15 10:00] VITALS: PULSE 80; RESP 16; O2SAT 96
--- NOTE | 2022-03-15 12:41 | CASEMGMT ---
Social Work BIMS and PHQ-9 completed for MDS assessment. 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
== END 2022-03-15 10:30 | disposition intermediate care facility (04) | DRG 57 ==
PROVIDERS: Admitting Provider Family Medicine Geriatric Medicine; PCP Family Medicine; Visit Provider Family Medicine Geriatric Medicine
DX: I69.354 Hemiplegia and hemiparesis following cerebral infarction affecting left non-dominant side (principal); B37.0 Candidal stomatitis; I48.0 Paroxysmal atrial fibrillation; G25.81 Restless legs syndrome; E78.5 Hyperlipidemia, unspecified; I10 Essential (primary) hypertension; I25.10 Atherosclerotic heart disease of native coronary artery without angina pectoris; M19.90 Unspecified osteoarthritis, unspecified site; K21.9 Gastro-esophageal reflux disease without esophagitis; K44.9 Diaphragmatic hernia without obstruction or gangrene; I69.328 Other speech and language deficits following cerebral infarction; I69.392 Facial weakness following cerebral infarction; I69.320 Aphasia following cerebral infarction; Z79.01 Long term (current) use of anticoagulants; Z79.899 Other long term (current) drug therapy; Z79.82 Long term (current) use of aspirin; Z87.19 Personal history of other diseases of the digestive system
CPT/HCPCS: 36415; 80048; 85025; 87426; 92507; 92523; 97110; 97116; 97162; 97166; 97530; 97535; 97802

== ENCOUNTER → 2022-06-16 | Outpatient (REF) | payer MEDICARE, OTHER, SELFPAY ==
[2022-06-16 23:31] LABS: Color, Urine Yellow (Yellow); Glucose, Dipstick Normal (Normal); Ketone-Dipstick Negative (Negative); Leukocyte Esterase-Dipstick 500 /ul (Negative); Nitrite-Dipstick Positive (Negative); Occult Blood-Urine 150 /ul (Negative); Protein-Dipstick 15 mg/dl (Negative); Specific Gravity, Urine 1.015 (1.002-1.030); Urine Bilirubin Dipstick Negative (Negative); Urine Clarity Sl. Cloudy (Clear); Urine Urobilinogen Normal (Normal); Urine pH 6.5 (5.0 - 8.0)
== END ==
LOC: OLS.WCC 22:47
PROVIDERS: PCP Family Medicine; Visit Provider Family Medicine
DX: N39.0 Urinary tract infection, site not specified (principal)
CPT/HCPCS: 81002; 87077; 87086; 87088; 87186

== ENCOUNTER → 2022-06-29 | Outpatient (REF) | payer MEDICARE, OTHER, SELFPAY ==
[2022-06-29 08:22] LABS: Hematocrit 32.9 % (37-47); Hemoglobin 10.7 g/dL (12.0-15.0); Mean Corp Hgb Conc 32.5 g/dL (32-36); Mean Corpuscular Hgb 29.7 pg (27.0-32.0); Mean Corpuscular Volume 91.4 fL (81-99); Mean Platelet Vol. 9.6 fl (6.2-12.0); Platelet Count 353 K/mm3 (150-450); RBC Distribution Width CV 13.7 % (11.6-14.6); White Blood Count 7.2 K/mm3 (4.4-11.0)
[2022-06-29 08:41] LABS: Anion Gap 2 (5-15); BUN 21 mg/dL (7-18); BUN/Creat Ratio 25.1 RATIO (10-20); Calcium,Total 9.2 mg/dL (8.5-10.1); Chloride 111 mmol/L (98-107); Creatinine, Serum 0.84 mg/dL (0.55-1.02); EST Glomerular Filtration Rate 70 mL/min (>60); Est Glom Filt Rate - Afr Amer 84 mL/min (>60); Glucose 93 mg/dL (74-106); Potassium 3.5 mmol/L (3.5-5.1); Sodium Level 139 mmol/L (136-145)
== END ==
LOC: OLS.WCC 05:00
PROVIDERS: PCP Family Medicine; Visit Provider Family Medicine
DX: I82.409 Acute embolism and thrombosis of unspecified deep veins of unspecified lower extremity (principal); I10 Essential (primary) hypertension; Z79.899 Other long term (current) drug therapy
CPT/HCPCS: 36415; 80048; 85027

== ENCOUNTER → 2022-09-28 | Outpatient (REF) | payer MEDICARE, OTHER, SELFPAY ==
[2022-09-28 09:52] LABS: Hematocrit 38.7 % (37-47); Hemoglobin 11.8 g/dL (12.0-15.0); Mean Corp Hgb Conc 30.5 g/dL (32-36); Mean Corpuscular Hgb 28.4 pg (27.0-32.0); Mean Corpuscular Volume 93.3 fL (81-99); Mean Platelet Vol. 10.1 fl (6.2-12.0); Platelet Count 394 K/mm3 (150-450); RBC Distribution Width CV 14.1 % (11.6-14.6); RBC Distribution Width SD 47.7 fl (35.1-43.9); Red Blood Count 4.15 M/mm3 (4.2-5.4); White Blood Count 7.4 K/mm3 (4.4-11.0)
[2022-09-28 10:03] LABS: Anion Gap 7 (5-15); BUN 20 mg/dL (7-18); BUN/Creat Ratio 22.5 RATIO (10-20); Calcium,Total 9.6 mg/dL (8.5-10.1); Chloride 109 mmol/L (98-107); Cholesterol 159 mg/dL (200); Creatinine, Serum 0.89 mg/dL (0.55-1.02); EST Glomerular Filtration Rate 65 mL/min (>60); Est Glom Filt Rate - Afr Amer 79 mL/min (>60); Glucose 98 mg/dL (74-106); High Density Lipoprotein 49 mg/dL; Potassium 3.6 mmol/L (3.5-5.1); Sodium Level 142 mmol/L (136-145); Triglycerides 195 mg/dL; Very Low Density Lipoprotein 39 mg/dL (5-40)
== END ==
LOC: OLS.WCC 05:00
PROVIDERS: PCP Family Medicine; Visit Provider Family Medicine
DX: I82.409 Acute embolism and thrombosis of unspecified deep veins of unspecified lower extremity (principal); I10 Essential (primary) hypertension; E78.5 Hyperlipidemia, unspecified; Z79.899 Other long term (current) drug therapy
CPT/HCPCS: 36415; 80048; 80061; 85027

== ENCOUNTER → 2022-12-28 | Outpatient (REF) | payer MEDICARE, OTHER, SELFPAY ==
[2022-12-28 09:50] LABS: Hematocrit 24.2 % (37-47); Hemoglobin 6.7 g/dL (12.0-15.0); Mean Corp Hgb Conc 27.7 g/dL (32-36); Mean Corpuscular Hgb 22.9 pg (27.0-32.0); Mean Corpuscular Volume 82.9 fL (81-99); Mean Platelet Vol. 10.3 fl (6.2-12.0); Platelet Count 449 K/mm3 (150-450); RBC Distribution Width CV 15.7 % (11.6-14.6); RBC Distribution Width SD 47.9 fl (35.1-43.9); Red Blood Count 2.92 M/mm3 (4.2-5.4); White Blood Count 10.1 K/mm3 (4.4-11.0)
[2022-12-28 10:17] LABS: Anion Gap 8 (5-15); BUN 20 mg/dL (7-18); BUN/Creat Ratio 20.9 RATIO (10-20); Calcium,Total 9.1 mg/dL (8.5-10.1); Chloride 111 mmol/L (98-107); Creatinine, Serum 0.96 mg/dL (0.55-1.02); EST Glomerular Filtration Rate 60 mL/min (>60); Est Glom Filt Rate - Afr Amer 72 mL/min (>60); Glucose 133 mg/dL (74-106); Potassium 3.8 mmol/L (3.5-5.1); Sodium Level 141 mmol/L (136-145)
== END ==
LOC: OLS.WCC 05:00
PROVIDERS: PCP Family Medicine; Visit Provider Family Medicine
DX: I10 Essential (primary) hypertension (principal); I82.409 Acute embolism and thrombosis of unspecified deep veins of unspecified lower extremity
CPT/HCPCS: 36415; 80048; 85027

== ENCOUNTER 2022-12-30 15:59 | Inpatient (IN) | payer MEDICARE, OTHER, SELFPAY ==
[2022-12-30] VITALS (16 sets, daily range): BP systolic 137–191; BP diastolic 63–84; PULSE 58–82; RESP 14–78; TEMP 36.3–36.8; O2SAT 94–99; BMI 23.8; BMI 22.8
--- NOTE | 2022-12-30 16:24 | EX.ED.DYSGE1 ---
HPI History of Present Illness Chief Complaint: Abn Labs Narrative Narrative: 82-year-old female past medical history of CVA approximately 1 year ago with residual aphasia and minimal left-sided weakness, on Eliquis for atrial fibrillation as well, presents with low hemoglobin of 6.1. Family reports that she was seen in the care center by Dr. Edouard Grayson, he had reported that her hemoglobin was 11 in September, and the other day on laboratory work was low at 6.7. Eliquis was held, and on repeat hemoglobin checked today, and had lowered to 6.1. Her history and physical is mildly limited secondary to her expressive aphasia. She states that she has been having black stool but cannot say for how long. Her daughter is at the bedside, but does not cooberate that the patient has been having black stool. She complains of generalized weakness and fatigue. No chest pain or shortness of breath. Daughter states that the patient has been lightheaded and dizzy. [facility] Medical History (Updated 12/30/22 @ 17:04 by Danyel Viveros MD) Angiodysplasia of duodenum Angiodysplasia of stomach Arthritis Atherosclerosis of coronary artery of [place] heart without angina pectoris Atrial fibrillation Cardiology follow-up encounter Esophageal stenosis Essential hypertension GERD (gastroesophageal reflux disease) GIB (gastrointestinal bleeding) History of hiatal hernia Hyperlipidemia IBS (irritable bowel syndrome) Kidney stones LAE (left atrial enlargement) Migraine headache Non-smoker Osteoporosis Other chronic sinusitis Paroxysmal A-fib Polyp of nasal cavity Shingles Stroke/cerebrovascular accident Wears glasses Wears hearing aid Home Medications acetaminophen 500 mg tablet 1,000 mg (2 x 500 mg) PO Q8 PRN fever/pain 1-10 #0 tabs 02/20/22 [Rx Last Taken 12/23/22] apixaban 5 mg tablet (Eliquis) 5 mg PO BID Blood Thinner 02/20/22 [History Last Taken 12/29/22] atorvastatin 40 mg tablet 40 mg PO QHS Cholesterol 02/20/22 [History Last Taken 12/29/22] calcium carbonate 500 mg-vitamin D3 5 mcg (200 unit) tablet (Oyster Shell Calcium-Vitamin D3) 1 tab PO BREAKFAST Supplement 02/20/22 [History Last Taken 12/30/22] metoprolol tartrate 25 mg tablet 12.5 mg PO BID BP 02/20/22 [History Last Taken 12/30/22] mirtazapine 15 mg tablet 15 mg PO QHS Check with primary doctor 02/20/22 [History Last Taken 12/29/22] pantoprazole 40 mg tablet,delayed release 40 mg PO BID GERD 02/20/22 [History Last Taken 12/30/22] menthol 0.44 %-zinc oxide 20.6 % topical ointment (Calmoseptine) 1 applic topical BID #0 grams 03/09/22 [Rx Last Taken Unknown] pramipexole 0.125 mg tablet 0.125 mg PO QHS #0 tabs 03/09/22 [Rx Last Taken 12/29/22] escitalopram oxalate 10 mg tablet 10 mg PO DAILY 12/30/22 [History Last Taken 12/30/22] ferrous sulfate 325 mg (65 mg iron) tablet (Feosol) 325 mg PO DAILY 12/30/22 [History Last Taken 12/30/22] Allergy/AdvReac Type Severity Reaction Status Date / Time ranolazine [From Ranexa] AdvReac Severe low urine Verified 12/30/22 16:02 output, rash oseltamivir [From Tamiflu] AdvReac Unknown Verified 12/30/22 16:02 Family History Father CAD (coronary artery disease) CVA (cerebral vascular accident) Hypertension Mother Hypertension Brother Hypertension Sister Diabetes Other Heart disease Surgical History H/O sinus surgery History of cataract surgery History of left heart catheterization (04/16/17) History of tonsillectomy Social History (Updated 02/20/22 @ 19:[address] Hitesh Cortes MD) household members: none Smoking Status: Never smoker alcohol intake: never substance use type: does not use ROS ROS ED ROS Narrative Constitutional: No fever, no chills. Positive fatigue. Generalized weakness. HEENT: No sore throat. No neck pain. No loss of vision. No rhinorrhea. Cardiovascular: No chest pain. No palpitations. No pedal edema. Respiratory: No cough, no shortness of breath. Abdominal: No abdominal pain. No nausea. No vomiting. Questionable report of black stool. Genitourinary: No dysuria. No hematuria. Musculoskeletal: No myalgias. No arthralgias. Neurologic: No headaches. Reported lightheadedness and dizziness. Skin: No rash. No change in color. Psychiatric: No depression. No anxiety. EXAM Physical Exam Narrative Exam Narrative: Afebrile. Vital signs noted. HEENT: Normocephalic. Atraumatic. PERRL, EOMI. Neck soft and supple. No point tenderness or step off. Cardiovascular: Regular rate and rhythm. No murmurs, rubs, or gallops appreciated. Respiratory: No tachypnea. Lungs clear to auscultation bilaterally. Gastrointestinal: Abdomen soft, nontender, with normoactive bowel sounds. No rebound or guarding. Neurological: Awake. Alert. Nonfocal, nonlateralizing. Positive expressive aphasia. Skin: No rash. Normal color. Mild pallor. Musculoskeletal: No pedal edema. Full range of motion extremities. Const Vital Signs: 12/30/22 16:00 12/30/22 16:28 12/30/22 16:33 Temperature 97.8 F Temperature Source Temporal Pulse Rate 82 82 Pulse Rate [Lying] Pulse Rate [Sitting (for 1 minute prior to obtaining)] Pulse Rate [Standing (for 1 minute prior to obtaining)] Respiratory Rate 14 19 H Respiratory Effort Short of Breath Respiratory Pattern Tachypnea Blood Pressure 172/69 H 161/75 H Blood Pressure [Lying] Blood Pressure [Sitting (for 1 minute prior to obtaining)] Blood Pressure [Standing (for 1 minute prior to obtaining)] Blood Pressure Mean 103 103 Blood Pressure Mean [Lying] Blood Pressure Mean [Sitting (for 1 minute prior to obtaining)] Blood Pressure Mean [Standing (for 1 minute prior to obtaining)] Pulse Ox 99 98 Oxygen Delivery Method Room Air Room Air 12/30/22 16:22 Temperature Temperature Source Pulse Rate Pulse Rate [Lying] 77 Pulse Rate [Sitting (for 1 minute prior to obtaining)] 79 Pulse Rate [Standing (for 1 minute prior to obtaining)] 82 Respiratory Rate Respiratory Effort Respiratory Pattern Blood Pressure Blood Pressure [Lying] 166/77 H Blood Pressure [Sitting (for 1 minute prior to obtaining)] 177/70 H Blood Pressure [Standing (for 1 minute prior to obtaining)] 175/73 H Blood Pressure Mean Blood Pressure Mean [Lying] 106 Blood Pressure Mean [Sitting (for 1 minute prior to obtaining)] 105 Blood Pressure Mean [Standing (for 1 minute prior to obtaining)] 107 Pulse Ox Oxygen Delivery Method MDM MDM MDM Narrative Medical decision making narrative: I reviewed the patient's prior ED visits and laboratory work. With her having a reported hemoglobin of 6.1, I do feel repeat CBC should be obtained. She will be typed and crossmatched for 2 units. I do feel that she will require admission for probable GI bleeding and anemia requiring transfusion. Chaperoned rectal examination will be performed and fecal occult blood will be sent along with orthostatics. I will also check a CMP. EKG was obtained and interpreted by myself independently as normal sinus rhythm at 75 bpm without ectopy or acute ST changes. No STEMI. I reviewed her laboratory work and her hemoglobin has returned at 6.9 today, but still below 7. As she is symptomatic, I feel that she will require admission. CMP was reviewed which shows normal sodium of 141, potassium normal at 3.9, chloride slightly elevated at 110 which I think is nonspecific, normal anion gap of 7, although she has a BUN elevated at 22, it is chronically elevated, she has a normal creatinine of 0.95. I have low suspicion for upper GI bleeding as the history and physical does not support this and she has not had any hematemesis. However, in review of her previous upper endoscopy, she did have an angiodysplastic lesion. Additionally, there was no stool in the rectal vault on chaperoned examination, no gross bleeding. I will defer further stool studies and fecal occult blood to when she produces a bowel movement to check the color of the stool. Patient will be discussed with the hospitalist for admission for anemia requiring transfusion. I discussed the patient with Dr. Chasity Huffman. As her vital signs appear stable, she is not hypotensive or tachycardic, was felt that she is stable for admission to the medical surgical floor. Disposition is admit in stable condition. History & Record Review Discussion w/independent historian: Patient and Family Additional record(s) reviewed:: Prior ED visit and Prior labs Lab Data Attestation: I reviewed the patient's lab results. Labs: Laboratory Results - last 24 hr 12/30/22 16:17 WBC 11.7 H RBC 3.02 L Hgb 6.9 L Hct 24.7 L MCV 81.8 MCH 22.8 L MCHC 27.9 L RDW Std Deviation 47.8 H RDW Coeff of Leif 15.9 H Plt Count 446 MPV 10.0 Immature Gran % (Auto) 0.300 Neut % (Auto) 55.8 Lymph % (Auto) 30.3 [place] % (Auto) 9.5 Eos % (Auto) 3.4 Baso % (Auto) 0.7 Absolute Neuts (auto) 6.5 Absolute Lymphs (auto) 3.56 Nucleated RBC % 0 Sodium 141 Potassium 3.9 Chloride 110 H Carbon Dioxide 24.0 Anion Gap 7 BUN 22 H Creatinine 0.95 Estim Creat Clear Calc 33.93 Est GFR (MDRD) Af Amer 72 Est GFR (MDRD) Non-Af 60 BUN/Creatinine Ratio 23.1 H Glucose 128 H Calcium 9.2 Total Bilirubin 0.30 AST 18 ALT 30 Alkaline Phosphatase 109 Total Protein 7.7 Albumin 3.5 Globulin 4.2 Albumin/Globulin Ratio 0.8 L Crossmatch See Detail Management Discussion w/another healthcare provider: Hospitalist (Dr. Chasity Huffman) Discharge Plan Dx/Rx/DC Orders Clinical Impression: Anemia requiring transfusions, Fatigue, History of aphasia Disposition Disposition: Acute Care [facility]
[2022-12-30 16:34] LABS: Absolute Lymphocyte Count 3.56 X10^3/uL (0.83-4.51); Absolute Neutrophil Count 6.5 X10^3/uL (2.0-7.7); Basophil# 0.08 X10^3/uL; Basophil% 0.7 % (0-1); Eosinophils% 3.4 % (0-5); Hematocrit 24.7 % (37-47); Hemoglobin 6.9 g/dL (12.0-15.0); Lymphocyte # 3.56 X10^3/ul (0.83-4.51); Lymphocyte % 30.3 % (19-41); Mean Corp Hgb Conc 27.9 g/dL (32-36); Mean Corpuscular Hgb 22.8 pg (27.0-32.0); Mean Corpuscular Volume 81.8 fL (81-99); Monocyte# 1.12 X10^3/uL; Monocyte% 9.5 % (0-10); NRBC Flagged by Analyzer 0 % (0-5); Neutrophil # 6.54 X10^3/uL (2.7-7.7); Neutrophil % 55.8 % (47-70); Platelet Count 446 K/mm3 (150-450); RBC Distribution Width CV 15.9 % (11.6-14.6); RBC Distribution Width SD 47.8 fl (35.1-43.9); Red Blood Count 3.02 M/mm3 (4.2-5.4); White Blood Count 11.7 K/mm3 (4.4-11.0)
[2022-12-30 17:02] LABS: ALB/GLOB Ratio 0.8 RATIO (0.9-2.4); AST(SGOT) 18 U/L (15-37); Alanine Aminotransfer ALT/SGPT 30 U/L (13-56); Albumin, Serum 3.5 g/dL (3.2-5.0); Alkaline Phosphatase 109 U/L (45-117); Anion Gap 7 (5-15); BUN 22 mg/dL (7-18); BUN/Creat Ratio 23.1 RATIO (10-20); Calcium,Total 9.2 mg/dL (8.5-10.1); Chloride 110 mmol/L (98-107); Creatinine, Serum 0.95 mg/dL (0.55-1.02); EST Glomerular Filtration Rate 60 mL/min (>60); Est Glom Filt Rate - Afr Amer 72 mL/min (>60); Estimated Creatinine Clearance 33.93 ml/min; Globulin 4.2 g/dL (2.2-4.2); Glucose 128 mg/dL (74-106); Potassium 3.9 mmol/L (3.5-5.1); Protein, Total 7.7 g/dL (6.4-8.2); Sodium Level 141 mmol/L (136-145)
--- NOTE | 2022-12-30 17:07 | HP.PCM.HOS_ITS ---
HPI - General General Date of Admission: 12/30/22 Date of Service: 12/30/22 Chief Complaint: Dizziness, lightheadedness. HPI Narrative The patient is an 82 y/o F w/ PMHx: RLS, Anxiety and Depression, Hx esophageal stenosis, Hx GI bleed w/ angiodysplasia duodenum/stomach, GERD, HTN, HLD, PAF, Hx CVA, Chronic migraine headaches, IBS, Chronic normocytic anemia/Fe deficiency anemia who presents to the [facility] ED on 12/30/22 per PCP recommendation secondary to abnormal outpatient labs ordered per Dr. Tripp Shahid with noted Hgb level 6.1, MCV 82.4 with patient reported lightheadedness, dizziness, increased fatigue. Of note patient had CBC also in 12/28/2022 with hemoglobin at that time 6.7, MCV 82.9 with Eliquis held per PCP with repeat level unfortunately noted to be 6.1 prompting the referral for evaluation with prior to this recent assessment her level most recently 09/28/2022 hemoglobin 11.8. Patient does admit to dark black stools but timeline is unclear although daughter who is present does not believe this is true primarily reports the patient as being lightheaded and dizzy. Patient denies any dyspnea associated. Patient does complain of left focal anterior chest discomfort which is reproducible upon palpation and she does confirm that this is the discomfort she has been having worse with certain types of movement. Work-up in the ED included T97.8, heart rate 82, BP 172/69, respiratory rate 14, 99% on room air, CBC with WBC 11.7, hemoglobin 6.9, MCV 81.8, platelet 446 without marked shift, CMP with chloride 110, BUN/creatinine 22/0.95, glucose 128 otherwise not marked appearing, hepatic profile unremarkable, type and cross for 2 unit initiated per ED physician, occult blood requested per ED but not sent because no stool in the vault and no gross blood noted. [facility] Medical History (Updated 12/30/22 @ 17:04 by Danyel Viveros MD) Angiodysplasia of duodenum Angiodysplasia of stomach Arthritis Atherosclerosis of coronary artery of [place] heart without angina pectoris Atrial fibrillation Cardiology follow-up encounter Esophageal stenosis Essential hypertension GERD (gastroesophageal reflux disease) GIB (gastrointestinal bleeding) History of hiatal hernia Hyperlipidemia IBS (irritable bowel syndrome) Kidney stones LAE (left atrial enlargement) Migraine headache Non-smoker Osteoporosis Other chronic sinusitis Paroxysmal A-fib Polyp of nasal cavity Shingles Stroke/cerebrovascular accident Wears glasses Wears hearing aid Home Medications acetaminophen 500 mg tablet 1,000 mg (2 x 500 mg) PO Q8 PRN fever/pain 1-10 #0 tabs 02/20/22 [Rx Last Taken 12/23/22] apixaban 5 mg tablet (Eliquis) 5 mg PO BID Blood Thinner 02/20/22 [History Last Taken 12/29/22] atorvastatin 40 mg tablet 40 mg PO QHS Cholesterol 02/20/22 [History Last Taken 12/29/22] calcium carbonate 500 mg-vitamin D3 5 mcg (200 unit) tablet (Oyster Shell Calcium-Vitamin D3) 1 tab PO BREAKFAST Supplement 02/20/22 [History Last Taken 12/30/22] metoprolol tartrate 25 mg tablet 12.5 mg PO BID BP 02/20/22 [History Last Taken 12/30/22] mirtazapine 15 mg tablet 15 mg PO QHS Check with primary doctor 02/20/22 [History Last Taken 12/29/22] pantoprazole 40 mg tablet,delayed release 40 mg PO BID GERD 02/20/22 [History Last Taken 12/30/22] menthol 0.44 %-zinc oxide 20.6 % topical ointment (Calmoseptine) 1 applic topical BID #0 grams 03/09/22 [Rx Last Taken Unknown] pramipexole 0.125 mg tablet 0.125 mg PO QHS #0 tabs 03/09/22 [Rx Last Taken 12/29/22] escitalopram oxalate 10 mg tablet 10 mg PO DAILY 12/30/22 [History Last Taken 12/30/22] ferrous sulfate 325 mg (65 mg iron) tablet (Feosol) 325 mg PO DAILY 12/30/22 [History Last Taken 12/30/22] Allergy/AdvReac Type Severity Reaction Status Date / Time ranolazine [From Ranexa] AdvReac Severe low urine Verified 12/30/22 16:02 output, rash oseltamivir [From Tamiflu] AdvReac Unknown Verified 12/30/22 16:02 Family History Father CAD (coronary artery disease) CVA (cerebral vascular accident) Hypertension Mother Hypertension Brother Hypertension Sister Diabetes Other Heart disease Surgical History H/O sinus surgery History of cataract surgery History of left heart catheterization (04/16/17) History of tonsillectomy Social History (Updated 12/30/22 @ 17:[address] Chasity Huffman MD) household members: none housing: long-term Smoking Status: Never smoker alcohol intake: never substance use type: does not use ROS ROS Narrative Admission Review of Systems: CONSTITUTIONAL: No weight loss, fever, chills, + weakness or fatigue. HEENT: + LH/Dizziness. Eyes: No visual loss, blurred vision, double vision or yellow sclerae. Ears, Nose, Throat: No hearing loss, sneezing, congestion, runny nose or sore throat. SKIN: No rash or itching, lesions, wounds. CARDIOVASCULAR: + LH/dizziness, specifical focal area of musculoskeletal L sided chest discomfort which is reproducible/worse with movement.No chest pain, chest pressure or chest discomfort, palpitations, edema, orthopnea, syncopal events. RESPIRATORY: No shortness of breath, cough or sputum, wheezing, hemoptysis. GASTROINTESTINAL: + Dark black stools. No anorexia, nausea, vomiting, diarrhea, abdominal pain, BRBPR. GENITOURINARY: No dysuria, frequency, urgency or retention. NEUROLOGICAL: + LH/Dizziness. Chronic L sided hemiparesis with aphasia, No syncope, paralysis, change in bowel or bladder control, seizure. MUSCULOSKELETAL: + muscle, back pain, joint pain or stiffness. HEMATOLOGIC: + anemia, bleeding or bruising. LYMPHATICS: No enlarged nodes. No history of splenectomy. PSYCHIATRIC: + history of depression or anxiety. ENDOCRINOLOGIC: No reports of sweating, cold or heat intolerance. No polyuria or polydipsia. ALLERGIES: No history of asthma, hives, eczema or rhinitis. Vital Signs Vital Signs Vital Signs: 12/30/22 16:00 12/30/22 16:28 12/30/22 16:33 Temperature 97.8 F Temperature Source Temporal Pulse Rate 82 82 Pulse Rate [Lying] Pulse Rate [Sitting (for 1 minute prior to obtaining)] Pulse Rate [Standing (for 1 minute prior to obtaining)] Respiratory Rate 14 19 H Respiratory Effort Short of Breath Respiratory Pattern Tachypnea Blood Pressure 172/69 H 161/75 H Blood Pressure [Lying] Blood Pressure [Sitting (for 1 minute prior to obtaining)] Blood Pressure [Standing (for 1 minute prior to obtaining)] Blood Pressure Mean 103 103 Blood Pressure Mean [Lying] Blood Pressure Mean [Sitting (for 1 minute prior to obtaining)] Blood Pressure Mean [Standing (for 1 minute prior to obtaining)] Pulse Ox 99 98 Oxygen Delivery Method Room Air Room Air 12/30/22 16:22 Temperature Temperature Source Pulse Rate Pulse Rate [Lying] 77 Pulse Rate [Sitting (for 1 minute prior to obtaining)] 79 Pulse Rate [Standing (for 1 minute prior to obtaining)] 82 Respiratory Rate Respiratory Effort Respiratory Pattern Blood Pressure Blood Pressure [Lying] 166/77 H Blood Pressure [Sitting (for 1 minute prior to obtaining)] 177/70 H Blood Pressure [Standing (for 1 minute prior to obtaining)] 175/73 H Blood Pressure Mean Blood Pressure Mean [Lying] 106 Blood Pressure Mean [Sitting (for 1 minute prior to obtaining)] 105 Blood Pressure Mean [Standing (for 1 minute prior to obtaining)] 107 Pulse Ox Oxygen Delivery Method Weight Weight: 121 lb 14.65 oz Body Mass Index (BMI) 23.8 Physical Exam Narrative Physical Examination: General: Awake, alert, oriented x 3 and cooperative, seated upright in the ED bed in no apparent distress although anxious appearing. Skin: Normal color, normal turgor, no icterus, no cyanosis. HEENT: AT/NC, EOMI, PERRLA, MMM, no carotid bruits or JVD noted, chronic mild aphasia. Lungs: Mildly diminished, greater bases, proper effort no rales, ronchi or wheezing. Heart: Regular rate and rhythm; no gallop, rub audible, small focal region on the left lower anterior chest uncomfortable with palpation, reproducible which is similar to what she is complained of she notes. Abdomen: Soft, NTTP, ND, mildly hyperactive BS, no HSM. Extremities: No cyanosis, clubbing, or edema, compression stockings in place. Neurological: Patient awake, alert, oriented as noted, chronic mild aphasia as well as left-sided weakness/hemiparesis following prior CVA, cognitive function intact; pupils equally reactive to light and accommodation, cranial nerves grossly normal, strength moderately global decrease secondary to prior history a nd acute presentation Psychiatric: Affect appears anxious, does have underlying anxiety and depressive history. Results Lab / Micro Data 12/30/22 16:17 12/30/22 16:17 Labs: Laboratory Results - last 24 hr 12/30/22 16:17: WBC 11.7 H, RBC 3.02 L, Hgb 6.9 L, Hct 24.7 L, MCV 81.8, MCH 22.8 L, MCHC 27.9 L, RDW Std Deviation 47.8 H, RDW Coeff of Leif 15.9 H, Plt Count 446, MPV 10.0, Immature Gran % (Auto) 0.300, Neut % (Auto) 55.8, Lymph % (Auto) 30.3, [place] % (Auto) 9.5, Eos % (Auto) 3.4, Baso % (Auto) 0.7, Absolute Neuts (auto) 6.5, Absolute Lymphs (auto) 3.56, Nucleated RBC % 0, Sodium 141, Potassium 3.9, Chloride 110 H, Carbon Dioxide 24.0, Anion Gap 7, BUN 22 H, Creatinine 0.95, Estim Creat Clear Calc 33.93, Est GFR (MDRD) Af Amer 72, Est GFR (MDRD) Non-Af 60, BUN/Creatinine Ratio 23.1 H, Glucose 128 H, Calcium 9.2, Total Bilirubin 0.30, AST 18, ALT 30, Alkaline Phosphatase 109, Total Protein 7.7, Albumin 3.5, Globulin 4.2, Albumin/Globulin Ratio 0.8 L, Crossmatch See Detail Assessment & Plan Assessment/Plan (1) Anemia requiring transfusions: PLAN: Plan The patient is an 82 y/o F w/ PMHx: RLS, Anxiety and Depression, Hx esophageal stenosis, Hx GI bleed w/ angiodysplasia duodenum/stomach, GERD, HTN, HLD, PAF, Hx CVA, Chronic migraine headaches, IBS, Chronic normocytic anemia/Fe deficiency anemia who presents to the [facility] ED on 12/30/22 per PCP recommendation secondary to abnormal outpatient labs ordered per Dr. Tripp Shahid with noted Hgb level 6.1, MCV 82.4 with patient reported lightheadedness, dizziness, increased fatigue. #1. Acute Suspected GI Bleed w/ resultant Acute Blood Loss Anemia on Chronic normocytic anemia/Fe Deficiency with prior GI bleed history with noted prior angiodysplasia duodenum/stomach on chronic oral anticoagulation: Admission Hgb 6.9 although obtained earlier in the day and was 6.7 at that time, MCV 81.8, will admit to MS given stable vital signs, maintain on judicious IVFs, continue ED initiated PRBC administration, cycle serial H+H, maintain on IV PPI, allow cl ears until midnight then NPO status. Guiac requested as no stool was in the vault upon ED evaluation. Gastroenterology Dr. Sanon consulted, pending. #2. Hx CVA: Patient with cerebral infarction involving the middle cerebral artery territory with associated left-sided weakness as well as aphasia and facial droop, continue statin, metoprolol, holding Eliquis given presentation as noted. #3. PAF: We will continue patient home metoprolol regimen, given presentation holding Eliquis regimen. #4. Anxiety and depression: We will continue patient home escitalopram regimen. Patient is also listed on mirtazapine, clarifying. #5. Restless leg syndrome: We will continue patient home pramipexole regimen. #6. Hypertension: Continue home regimen including metoprolol with hold parameters as needed especially given presentation, PRN hydralazine. #7. Hyperlipidemia: We will continue patient on statin therapy. #8. Chronic migraine headaches: Not on any chronic preventative medication, encouraged outpatient follow-up as previously arranged. #9. GERD: We will maintain on IV PPI as noted. #10. Musculoskeletal anterior chest discomfort: Reproducible, musculoskeletal in nature, unfortunate given presentation unable to use any anti-inflammatory medication, will have Tylenol as needed, may use K-pad or icing pending which assist her discomfort more. #11. DVT prophylaxis: SCDs, holding patient home Eliquis regimen given presentation. #12. CODE status: DNR-CC per facility paperwork. Charges/Coding Visit Charges Inpatient E&M: 91203 Init Hosp L3
--- NOTE | 2022-12-30 17:51 | ED.RN ---
CALLED AND UPDATED [facility] R/T PT. ADMISSION
[2022-12-30] MEDS: Dicyclomine 10 MG Capsule 20 MG PO (19:57)
[2022-12-30] MEDS: Metoprolol Tartrate 25 MG Tablet 12.5 MG PO ×2 (19:57→21:03)
[2022-12-30] MEDS: Atorvastatin Calcium 40 MG Tablet PO (21:03)
[2022-12-30] MEDS: Menthol/Lanolin/Calamine/Znox 113 GM Tube 1 APPLIC TOPICAL (21:04)
[2022-12-30] MEDS: Pramipexole Di-HCl 0.125 MG Tablet PO (21:04)
[2022-12-30] MEDS: Mirtazapine 15 MG Tablet PO (21:04)
[2022-12-31] VITALS (13 sets, daily range): BP systolic 120–191; BP diastolic 51–82; PULSE 67–79; RESP 16; TEMP 36.6–37.6; O2SAT 94–99; BMI 22.9; BMI 22.8
[2022-12-31] MEDS: hydrALAZINE 20 MG/ML Vial 10 MG IV (00:24)
[2022-12-31] MEDS: Pantoprazole Sodium 40 MG in 0.9% Normal Saline (100mL MB+) 100 ML 330 MG IV ×3 (00:25→22:25)
[2022-12-31 02:38] LABS: Hemoglobin 11.3 g/dL (12.0-15.0)
[2022-12-31 06:20] LABS: Hematocrit 33.1 % (37-47); Hemoglobin 10.1 g/dL (12.0-15.0); Mean Corp Hgb Conc 30.5 g/dL (32-36); Mean Corpuscular Hgb 24.7 pg (27.0-32.0); Mean Corpuscular Volume 80.9 fL (81-99); Mean Platelet Vol. 9.7 fl (6.2-12.0); Platelet Count 354 K/mm3 (150-450); RBC Distribution Width CV 15.9 % (11.6-14.6); Red Blood Count 4.09 M/mm3 (4.2-5.4)
[2022-12-31 06:39] LABS: ALB/GLOB Ratio 0.8 RATIO (0.9-2.4); AST(SGOT) 16 U/L (15-37); Alanine Aminotransfer ALT/SGPT 22 U/L (13-56); Albumin, Serum 3.1 g/dL (3.2-5.0); Alkaline Phosphatase 93 U/L (45-117); Anion Gap 6 (5-15); BUN 16 mg/dL (7-18); BUN/Creat Ratio 19.9 RATIO (10-20); Calcium,Total 8.9 mg/dL (8.5-10.1); Chloride 113 mmol/L (98-107); EST Glomerular Filtration Rate 73 mL/min (>60); Est Glom Filt Rate - Afr Amer 88 mL/min (>60); Estimated Creatinine Clearance 40.29 ml/min; Globulin 3.8 g/dL (2.2-4.2); Glucose 122 mg/dL (74-106); Potassium 3.7 mmol/L (3.5-5.1); Protein, Total 6.9 g/dL (6.4-8.2); Sodium Level 141 mmol/L (136-145)
[2022-12-31] MEDS: Menthol/Lanolin/Calamine/Znox 113 GM Tube 1 APPLIC TOPICAL ×2 (09:25→22:26)
--- NOTE | 2022-12-31 10:34 | NURSING ---
pt to endo
--- NOTE | 2022-12-31 10:41 | CON.PCM.GI_ITS ---
HPI Consult Data Date of Consult: 12/30/22 HPI Narrative Reason for Consultation: Anemia HPI Narrative: ALTA MAYA, is a 82 F who presents for the evaluation of abnormal labs. I got a chance to know her over a year ago for acute blood loss anemia. She was discovered to have multiple bleeding areas and upper GI tract including the stom ach and the duodenum. She has a past medical history of RLS, Anxiety and Depression, Hx esophageal stenosis, A-fib, Hx CVA, Chronic migraine headaches, IBS, Chronic normocytic anemia/Fe deficiency anemia who presents to the [facility] ED on 12/30/22 per PCP recommendation secondary to abnormal outpatient labs ordered per Dr. Tripp Shahid with noted Hgb level 6.1. Her most recently 09/28/2022 hemoglobin 11.8. Patient does admit to dark black stools but timeline is unclear although daughter who is present does not believe this is true primarily reports the patient as being lightheaded and dizzy. Patient denies any dyspnea associated. Work-up in the ED included T97.8, heart rate 82, BP 172/69, respiratory rate 14, 99% on room air, CBC with WBC 11.7, hemoglobin 6.9, MCV 81.8, platelet 446 without marked shift, CMP with chloride 110, BUN/creatinine 22/0.95, glucose 128 otherwise not marked appearing, hepatic profile unremarkable, type and cross for 2 unit initiated per ED physician, occult blood requested per ED but not sent because no stool in the vault and no gross blood noted. [facility] Medical History (Updated 12/30/22 @ 20:43 by Stephanie Casanova) Angiodysplasia of duodenum Angiodysplasia of stomach Arthritis Atherosclerosis of coronary artery of [place] heart without angina pectoris Atrial fibrillation Cardiology follow-up encounter Esophageal stenosis Essential hypertension GERD (gastroesophageal reflux disease) GIB (gastrointestinal bleeding) History of hiatal hernia HTN (hypertension) Hyperlipidemia IBS (irritable bowel syndrome) Kidney stones LAE (left atrial enlargement) Migraine headache Non-smoker Osteoporosis Other chronic sinusitis Paroxysmal A-fib Polyp of nasal cavity Shingles Stroke/cerebrovascular accident Wears glasses Wears hearing aid Home Medications acetaminophen 500 mg tablet 1,000 mg (2 x 500 mg) PO Q8 PRN fever/pain 1-10 #0 tabs 02/20/22 [Rx Last Taken 12/29/22] apixaban 5 mg tablet (Eliquis) 5 mg PO BID Blood Thinner 02/20/22 [History Last Taken 12/28/22] atorvastatin 40 mg tablet 40 mg PO QHS Cholesterol 02/20/22 [History Last Taken 12/29/22] calcium carbonate 500 mg-vitamin D3 5 mcg (200 unit) tablet (Oyster Shell Calcium-Vitamin D3) 1 tab PO BREAKFAST Supplement 02/20/22 [History Last Taken 12/30/22] metoprolol tartrate 25 mg tablet 12.5 mg PO BID BP 02/20/22 [History Last Taken 12/30/22] mirtazapine 15 mg tablet 22.5 mg PO QHS Check with primary doctor 02/20/22 [History Last Taken 12/29/22] pantoprazole 40 mg tablet,delayed release 40 mg PO DAILY GERD 02/20/22 [History Last Taken 12/30/22] menthol 0.44 %-zinc oxide 20.6 % topical ointment (Calmoseptine) 1 applic topical BID #0 grams 03/09/22 [Rx Last Taken Unknown] pramipexole 0.125 mg tablet 0.125 mg PO QHS #0 tabs 03/09/22 [Rx Last Taken 12/29/22] escitalopram oxalate 10 mg tablet 10 mg PO DAILY depression 12/30/22 [History Last Taken 12/29/22] ferrous sulfate 325 mg (65 mg iron) tablet (Feosol) 325 mg PO DAILY 12/30/22 [History Last Taken 12/30/22] sennosides 8.6 mg-docusate sodium 50 mg tablet (2-in-1 Laxative) 1 tab-cap PO DAILY constipation 12/30/22 [History Last Taken 12/30/22] Allergy/AdvReac Type Severity Reaction Status Date / Time ranolazine [From Ranexa] AdvReac Severe low urine Verified 12/30/22 16:02 output, rash oseltamivir [From Tamiflu] AdvReac Unknown Verified 12/30/22 16:02 Family History Father CAD (coronary artery disease) CVA (cerebral vascular accident) Hypertension Mother Hypertension Brother Hypertension Sister Diabetes Other Heart disease Surgical History H/O sinus surgery History of cataract surgery History of left heart catheterization (04/16/17) History of tonsillectomy Social History (Updated 12/30/22 @ 17:[address] Chasity Huffman MD) household members: none housing: assisted Smoking Status: Never smoker alcohol intake: never substance use type: does not use ROS ROS Narrative Admission Review of Systems: CONSTITUTIONAL: No weight loss, fever, chills, + weakness or fatigue. HEENT: + LH/Dizziness. Eyes: No visual loss, blurred vision, double vision or yellow sclerae. Ears, Nose, Throat: No hearing loss, sneezing, congestion, runny nose or sore throat. SKIN: No rash or itching, lesions, wounds. CARDIOVASCULAR: + LH/dizziness, specifical focal area of musculoskeletal L sided chest discomfort which is reproducible/worse with movement.No chest pain, chest pressure or chest discomfort, palpitations, edema, orthopnea, syncopal events. RESPIRATORY: No shortness of breath, cough or sputum, wheezing, hemoptysis. GASTROINTESTINAL: + Dark black stools. No anorexia, nausea, vomiting, diarrhea, abdominal pain, BRBPR. GENITOURINARY: No dysuria, frequency, urgency or retention. NEUROLOGICAL: + LH/Dizziness. Chronic L sided hemiparesis with aphasia, No syncope, paralysis, change in bowel or bladder control, seizure. MUSCULOSKELETAL: + muscle, back pain, joint pain or stiffness. HEMATOLOGIC: + anemia, bleeding or bruising. LYMPHATICS: No enlarged nodes. No history of splenectomy. PSYCHIATRIC: + history of depression or anxiety. ENDOCRINOLOGIC: No reports of sweating, cold or heat intolerance. No polyuria or polydipsia. ALLERGIES: No history of asthma, hives, eczema or rhinitis. Physical Exam Narrative Physical Examination: General: Awake, alert, oriented x 3 and cooperative, seated upright in the ED bed in no apparent distress although anxious appearing. Skin: Normal color, normal turgor, no icterus, no cyanosis. HEENT: AT/NC, EOMI, PERRLA, MMM, no carotid bruits or JVD noted, chronic mild aphasia. Lungs: Mildly diminished, greater bases, proper effort no rales, ronchi or wheezing. Heart: Regular rate and rhythm; no gallop, rub audible, small focal region on the left lower anterior chest uncomfortable with palpation, reproducible which is similar to what she is complained of she notes. Abdomen: Soft, NTTP, ND, mildly hyperactive BS, no HSM. Extremities: No cyanosis, clubbing, or edema, compression stockings in place. Neurological: Patient awake, alert, oriented as noted, chronic mild aphasia as well as left-sided weakness/hemiparesis following prior CVA, cognitive function intact; pupils equally reactive to light and accommodation, cranial nerves grossly normal, strength moderately global decrease secondary to prior history and acute presentation Psychiatric: Affect appears anxious, does have underlying anxiety and depressive history. Lab / Micro Data 12/31/22 05:50 12/31/22 05:50 Labs: Laboratory Results - last 24 hr 12/30/22 16:17: WBC 11.7 H, RBC 3.02 L, Hgb 6.9 L, Hct 24.7 L, MCV 81.8, MCH 22.8 L, MCHC 27.9 L, RDW Std Deviation 47.8 H, RDW Coeff of Leif 15.9 H, Plt Count 446, MPV 10.0, Immature Gran % (Auto) 0.300, Neut % (Auto) 55.8, Lymph % (Auto) 30.3, [place] % (Auto) 9.5, Eos % (Auto) 3.4, Baso % (Auto) 0.7, Absolute Ne uts (auto) 6.5, Absolute Lymphs (auto) 3.56, Nucleated RBC % 0, Sodium 141, Potassium 3.9, Chloride 110 H, Carbon Dioxide 24.0, Anion Gap 7, BUN 22 H, Cre atinine 0.95, Estim Creat Clear Calc 33.93, Est GFR (MDRD) Af Amer 72, Est GFR (MDRD) Non-Af 60, BUN/Creatinine Ratio 23.1 H, Glucose 128 H, Calcium 9.2, Total Bilirubin 0.30, AST 18, ALT 30, Alkaline Phosphatase 109, Total Protein 7.7, Albumin 3.5, Globulin 4.2, Albumin/Globulin Ratio 0.8 L, Blood Type B NEGATIVE, Antibody Screen NEGATIVE, Crossmatch See Detail 12/31/22 01:55: Hgb 11.3 L, Hct 36.0 L 12/31/22 05:50: WBC 13.0 H, RBC 4.09 L, Hgb 10.1 L, Hct 33.1 L, MCV 80.9 L, MCH 24.7 L, MCHC 30.5 L D, RDW Std Deviation 46.0 H, RDW Coeff of Leif 15.9 H, Plt Count 354, MPV 9.7, Sodium 141, Potassium 3.7, Chloride 113 H, Carbon Dioxide 22.0, Anion Gap 6, BUN 16, Creatinine 0.80, Estim Creat Clear Calc 40.29, Est GFR (MDRD) Af Amer 88, Est GFR (MDRD) Non-Af 73, BUN/Creatinine Ratio 19.9, Glu cose 122 H, Calcium 8.9, Total Bilirubin 1.10 H, AST 16, ALT 22, Alkaline Phosphatase 93, Total Protein 6.9, Albumin 3.1 L, Globulin 3.8, Albumin/Globulin Ratio 0.8 L Assessment & Plan Assessment/Plan (1) GERD (gastroesophageal reflux disease): PLAN: She has a history of gastroesophageal reflux disease with possible erosive esophagitis that could be contributing to her anemia and it also can be contributing to her heme positive stools. She is on PPI therapy. I would continue that. (2) Hiatal hernia: PLAN: In the setting of a hiatal hernia she is at risk for Jono's erosions in chronic anemia secondary to bleeding and upper GI tract. She should have an upper endoscopy to evaluate her upper GI tract (3) Positive occult stool blood test: PLAN: . Positive occult blood test in the setting of a history of duodenitis seen on previous upper endoscopy 2014 and with a history of melanotic stool. That does increase her risk of having a duodenal ulcer. I have talked with her daughters extensively and they have agreed for her to have an upper endoscopy to see if it is safe for her to go on anticoagulation. I told them if we did not find anything in her upper GI tract she will need to then have a colonoscopy and possible capsule endoscopy. Charges/Coding Visit Charges Inpatient E&M: 35059 Init Hosp L3
--- NOTE | 2022-12-31 10:53 | OP.CCLET_ITS ---
12/31/2022 Errol Shahid [address] [place] [address] Re : Upper GI endoscopy procedure for Karlie Valle Dear Dr. Shahid This procedure was performed on Saturday, December 31, 2022. My impressions and recommendations are as follows: Impressions : - Moderate Schatzki ring. - Hiatal hernia. - Two bleeding angiodysplastic lesions in the duodenum. - No specimens collected. Recommendations : - Return patient to [facility] for ongoing care. - Full liquid diet. - Continue present medications. My findings are described in the full procedure note, which is enclosed. If I can be of further assistance, please feel free to contact me at . Sincerely, Jim Sanon, 12/31/2022 10:52:33 AM This report has been signed electronically.
--- NOTE | 2022-12-31 10:53 | OP.EGD_ITS ---
Patient Name: Karlie Valle Procedure Date: 12/31/2022 10:15 AM Date of : 1940 Age: 82 Procedure: Upper GI endoscopy Indications: Iron deficiency anemia Providers: Jim Sanon DO Referring MD: Chasity Huffman Medicines: Monitored Anesthesia Care Patient Profile: This is an 82 year old female. Refer to note in patient chart for documentation of history and physical. Patient has symptoms of acute nausea. Complications: No immediate complications. Procedure: Pre-Anesthesia Assessment: - Prior to the procedure, a History and Physical was performed, and patient medications and allergies were reviewed. The patient is competent. The risks and benefits of the procedure and the sedation options and risks were discussed with the patient. All questions were answered and informed consent was obtained. Patient identification and proposed procedure were verified by the physician in the pre-procedure area. Mental Status Examination: alert and oriented. Airway Examination: normal oropharyngeal airway and neck mobility. Respiratory Examination: clear to auscultation. CV Examination: normal. Prophylactic Antibiotics: The patient does not require prophylactic antibiotics. Prior Anticoagulants: The patient has taken no previous anticoagulant or antiplatelet agents. ASA Grade Assessment: II - A patient with mild systemic disease. After reviewing the risks and benefits, the patient was deemed in satisfactory condition to undergo the procedure. The anesthesia plan was to use monitored anesthesia care (MAC). Immediately prior to administration of medications, the patient was re-assessed for adequacy to receive sedatives. The heart rate, respiratory rate, oxygen saturations, blood pressure, adequacy of pulmonary ventilation, and response to care were monitored throughout the procedure. The physical status of the patient was re-assessed after the procedure. After obtaining informed consent, the endoscope was passed under direct vision. Throughout the procedure, the patient's blood pressure, pulse, and oxygen saturations were monitored continuously. The Endoscope was introduced through the mouth, and advanced to the second part of duodenum. The upper GI endoscopy was accomplished without difficulty. The patient tolerated the procedure well. Scope In: 10:47:09 AM Scope Out: 10:50:12 AM Total Procedure Duration Time 0 hours 3 minutes 3 seconds Findings: A moderate Schatzki ring was found in the lower third of the esophagus. A hiatal hernia was present. No other significant abnormalities were identified in a careful examination of the stomach. Two 5 mm angiodysplastic lesions with bleeding were found in the duodenal bulb. Impression: - Moderate Schatzki ring. - Hiatal hernia. - Two bleeding angiodysplastic lesions in the duodenum. - No specimens collected. Recommendation: - [facility] care. - Full liquid diet. - Continue present medications. Procedure Code(s): --- Professional --- 45145, Esophagogastroduodenoscopy, flexible, transoral; diagnostic, including collection of specimen(s) by brushing or washing, when performed (separate procedure) CPT copyright 2021 [employer]. All rights reserved. The codes documented in this report are preliminary and upon flyer maker review may be revised to meet current compliance requirements. Jim Sanon DO 12/31/2022 10:52:33 AM This report has been signed electronically. Number of Addenda: 0 Note Initiated On: 12/31/2022 10:15 AM
[2022-12-31] MEDS: Metoprolol Tartrate 25 MG Tablet 12.5 MG PO ×2 (11:33→22:25)
[2022-12-31] MEDS: Ferrous Sulfate 325 MG Tablet PO (11:33)
[2022-12-31] MEDS: Calcium Carb/Vitamin D 1 TABLET Tablet PO (11:34)
[2022-12-31] MEDS: Escitalopram Oxalate 10 MG Tablet PO (11:34)
--- NOTE | 2022-12-31 11:39 | EX.PCM.PN.GI ---
Subjective Subjective Patient underwent upper endoscopy today she did have angiodysplastic lesion but there was no stigmata of bleeding. They would treated endoscopically with heater probe. Objective Data Objective Data Vital Signs: Vital Signs Temp Pulse Resp BP Pulse Ox O2 Del Method 99.6 F H 75 16 158/58 H 94 Room Air 12/31/22 11:09 12/31/22 11:09 12/31/22 11:09 12/31/22 11:09 12/31/22 11:09 12/31/22 11:09 Oxygen Delivery Method Room Air Weight: 117 lb 1.047 oz Body Mass Index (BMI) 22.8 Intake & Output: Intake and Output for Last 24 Hours 12/29/22 12/30/22 12/31/22 23:59 23:59 23:59 Intake Total 0 / 0 1220 / 1220 Output Total 2500 / 2500 Balance 0 / 0 -1280 / -1280 Lab / Micro Data 12/31/22 05:50 12/31/22 05:50 Labs: Laboratory Results - last 24 hr 12/30/22 16:17: WBC 11.7 H, RBC 3.02 L, Hgb 6.9 L, Hct 24.7 L, MCV 81.8, MCH 22.8 L, MCHC 27.9 L, RDW Std Deviation 47.8 H, RDW Coeff of Leif 15.9 H, Plt Count 446, MPV 10.0, Immature Gran % (Auto) 0.300, Neut % (Auto) 55.8, Lymph % (Auto) 30.3, [place] % (Auto) 9.5, Eos % (Auto) 3.4, Baso % (Auto) 0.7, Absolute Neuts (auto) 6.5, Absolute Lymphs (auto) 3.56, Nucleated RBC % 0, Sodium 141, Potassium 3.9, Chloride 110 H, Carbon Dioxide 24.0, Anion Gap 7, BUN 22 H, Creatinine 0.95, Estim Creat Clear Calc 33.93, Est GFR (MDRD) Af Amer 72, Est GFR (MDRD) Non-Af 60, BUN/Creatinine Ratio 23.1 H, Glucose 128 H, Calcium 9.2, Total Bilirubin 0.30, AST 18, ALT 30, Alkaline Phosphatase 109, Total Protein 7.7, Albumin 3.5, Globulin 4.2, Albumin/Globulin Ratio 0.8 L, Blood Type B NEGATIVE, Antibody Screen NEGATIVE, Crossmatch See Detail 12/31/22 01:55: Hgb 11.3 L, Hct 36.0 L 12/31/22 05:50: WBC 13.0 H, RBC 4.09 L, Hgb 10.1 L, Hct 33.1 L, MCV 80.9 L, MCH 24.7 L, MCHC 30.5 L D, RDW Std Deviation 46.0 H, RDW Coeff of Leif 15.9 H, Plt Count 354, MPV 9.7, Sodium 141, Potassium 3.7, Chloride 113 H, Carbon Dioxide 22.0, Anion Gap 6, BUN 16, Creatinine 0.80, Estim Creat Clear Calc 40.29, Est GFR (MDRD) Af Amer 88, Est GFR (MDRD) Non-Af 73, BUN/Creatinine Ratio 19.9, Glucose 122 H, Calcium 8.9, Total Bilirubin 1.10 H, AST 16, ALT 22, Alkaline Phosphatase 93, Total Protein 6.9, Albumin 3.1 L, Globulin 3.8, Albumin/Globulin Ratio 0.8 L Physical Exam Narrative Physical Examination: General: Awake, alert, oriented x 3 and cooperative, seated upright in the ED bed in no apparent distress although anxious appearing. Skin: Normal color, normal turgor, no icterus, no cyanosis. HEENT: AT/NC, EOMI, PERRLA, MMM, no carotid bruits or JVD noted, chronic mild aphasia. Lungs: Mildly diminished, greater bases, proper effort no rales, ronchi or wheezing. Heart: Regular rate and rhythm; no gallop, rub audible, small focal region on the left lower anterior chest uncomfortable with palpation, reproducible which is similar to what she is complained of she notes. Abdomen: Soft, NTTP, ND, mildly hyperactive BS, no HSM. Extremities: No cyanosis, clubbing, or edema, compression stockings in place. Neurological: Patient awake, alert, oriented as noted, chronic mild aphasia as well as left-sided weakness/hemiparesis following prior CVA, cognitive function intact; pupils equally reactive to light and accommodation, cranial nerves grossly normal, strength moderately global decrease secondary to prior history and acute presentation Psychiatric: Affect appears anxious, does have underlying anxiety and depressive history. Assessment & Plan Assessment/Plan (1) Anemia: QUALIFIERS: Anemia type: iron deficiency Iron deficiency anemia type: other iron deficiency Qualified Code(s): D50.8 - Other iron deficiency anemias PLAN: Differential diagnosis would be hemorrhoidal bleeding, and dysplastic lesions, neoplasia of the lower GI tract. I talked this over with her daughter and because she needs Eliquis therapy we agreed it was advantageous for her to get her lower GI tract evaluated while here in the hospital. I will prep her for colonoscopy tomorrow. Charges/Coding Visit Charges Inpatient E&M: 38224 Subs Hosp L2
[2022-12-31] MEDS: Bisacodyl 5 MG Tablet 40 MG PO (12:42)
[2022-12-31] MEDS: Electrolyte Solution/Peg's 4000 ML PO (12:43)
--- NOTE | 2022-12-31 13:10 | PN_ITS ---
Subjective Subjective Patient seen and examined. She was admitted on account of anemia. Hemoglobin was 6.1. She has been having dark stools also complains of some epigastric pain. She denies any dizziness or lightheadedness, nausea vomiting or diarrhea. Review of systems otherwise negative. She has been managed for acute on chroni c anemia due to probable GI bleed. Gastroenterology on board and for likely EGD today. Objective Data Objective Data Vital Signs: Vital Signs Temp Pulse Resp BP Pulse Ox O2 Del Method 97.9 F 77 16 169/79 H 98 Room Air 12/31/22 11:43 12/31/22 11:43 12/31/22 11:43 12/31/22 11:43 12/31/22 11:43 12/31/22 11:43 Oxygen Delivery Method Room Air Weight: 117 lb 1.047 oz Body Mass Index (BMI) 22.8 Intake & Output: Intake and Output for Last 24 Hours 12/29/22 12/30/22 12/31/22 23:59 23:59 23:59 Intake Total 0 / 0 1220 / 1220 Output Total 2500 / 2500 Balance 0 / 0 -1280 / -1280 Lab / Micro Data 12/31/22 05:50 12/31/22 05:50 Labs: Laboratory Results - last 24 hr 12/30/22 16:17: WBC 11.7 H, RBC 3.02 L, Hgb 6.9 L, Hct 24.7 L, MCV 81.8, MCH 22.8 L, MCHC 27.9 L, RDW Std Deviation 47.8 H, RDW Coeff of Leif 15.9 H, Plt Count 446, MPV 10.0, Immature Gran % (Auto) 0.300, Neut % (Auto) 55.8, Lymph % (Auto) 30.3, [place] % (Auto) 9.5, Eos % (Auto) 3.4, Baso % (Auto) 0.7, Absolute Neuts (auto) 6.5, Absolute Lymphs (auto) 3.56, Nucleated RBC % 0, Sodium 141, Potassium 3.9, Chloride 110 H, Carbon Dioxide 24.0, Anion Gap 7, BUN 22 H, Creatinine 0.95, Estim Creat Clear Calc 33.93, Est GFR (MDRD) Af Amer 72, Est GFR (MDRD) Non-Af 60, BUN/Creatinine Ratio 23.1 H, Glucose 128 H, Calcium 9.2, Total Bilirubin 0.30, AST 18, ALT 30, Alkaline Phosphatase 109, Total Protein 7.7, Albumin 3.5, Globulin 4.2, Albumin/Globulin Ratio 0.8 L, Blood Type B NEGATIVE, Antibody Screen NEGATIVE, Crossmatch See Detail 12/31/22 01:55: Hgb 11.3 L, Hct 36.0 L 12/31/22 05:50: WBC 13.0 H, RBC 4.09 L, Hgb 10.1 L, Hct 33.1 L, MCV 80.9 L, MCH 24.7 L, MCHC 30.5 L D, RDW Std Deviation 46.0 H, RDW Coeff of Leif 15.9 H, Plt Count 354, MPV 9.7, Sodium 141, Potassium 3.7, Chloride 113 H, Carbon Dioxide 22.0, Anion Gap 6, BUN 16, Creatinine 0.80, Estim Creat Clear Calc 40.29, Est GFR (MDRD) Af Amer 88, Est GFR (MDRD) Non-Af 73, BUN/Creatinine Ratio 19.9, Glucose 122 H, Calcium 8.9, Total Bilirubin 1.10 H, AST 16, ALT 22, Alkaline Phosphatase 93, Total Protein 6.9, Albumin 3.1 L, Globulin 3.8, Albumin/Globulin Ratio 0.8 L Physical Exam Const alert, oriented x3, no apparent distress and well nourished Constitutional Narrative: Frail General Appearance: cooperative HEENT normocephalic and head/scalp atraumatic Mouth: dry mucous membranes Eyes PERRL and EOMs intact bilaterally Neck no lymphadenopathy, supple and no JVD Lymph Lymphatic: no lymphadenopathy noted and no lymphedema noted Resp normal respiratory effort, normal air movement and clear to auscultation bilaterally Cardio regular rate, regular rhythm, S1 normal heart sound, S2 normal heart sound and no murmurs GI soft to palpation, non-tender and non-distended GI Narrative: Mild epigastric pain. No guarding or rebound tenderness. Extremity normal capillary refill, no clubbing, cyanosis or edema and no calf tenderness General Extremity: no tenderness to palpation of joints or extremities Skin General Skin Exam: no breakdown Neuro CN's II-XII intact bilaterally, no focal motor deficits, no sensory deficits noted and deep tendon reflexes 2+ bilaterally Motor Exam: strength 5/5 throughout Psych thought process normal and cooperative Appearance: appropriate Assessment & Plan Assessment/Plan (1) Anemia: QUALIFIERS: Anemia type: iron deficiency Iron deficiency anemia type: other iron deficiency Qualified Code(s): D50.8 - Other iron deficiency anemias PLAN: Plan #Acute on chronic anemia due to acute GI bleed * Hb was 6.1 on admission. Is s/p 2 units of PRBCs * Hb is now 10.1 * on IV pantoprazole 40mg bid. states she has had an ulcer in the past. * currently NPO * gastroenterology consulted. 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 On statin and metoprolol. #Paroxysmal A-fib: On metoprolol. Eliquis on hold due to GI bleed. #Depression: on escitalopram #Hyperlipidemia: On statin #Chronic migraine headaches: Currently stable. #GERD: On PPI DVT prophylaxis; SCDs Charges/Coding Visit Charges Inpatient E&M: 73522 Subs Hosp L2
--- NOTE | 2022-12-31 14:17 | NURSING ---
Copy of living will and health care POA in computer system
[2022-12-31] MEDS: 0.9% Saline Lock 10 ML Syringe IV (22:25)
[2022-12-31] MEDS: Mirtazapine 15 MG Tablet PO (22:25)
[2022-12-31] MEDS: Pramipexole Di-HCl 0.125 MG Tablet PO (22:25)
[2022-12-31] MEDS: Atorvastatin Calcium 40 MG Tablet PO (22:25)
[2023-01-01] VITALS (15 sets, daily range): BP systolic 113–175; BP diastolic 54–82; PULSE 60–126; RESP 14–18; TEMP 36.2–37.3; O2SAT 90–100; BMI 22.9
[2023-01-01 06:37] LABS: Absolute Lymphocyte Count 2.98 X10^3/uL (0.83-4.51); Basophil# 0.06 X10^3/uL; Basophil% 0.5 % (0-1); Eosinophil# 0.29 X10^3/uL; Eosinophils% 2.5 % (0-5); Hematocrit 33.3 % (37-47); Hemoglobin 10.7 g/dL (12.0-15.0); Lymphocyte # 2.98 X10^3/ul (0.83-4.51); Lymphocyte % 25.8 % (19-41); Mean Corp Hgb Conc 32.1 g/dL (32-36); Mean Corpuscular Hgb 26.1 pg (27.0-32.0); Mean Corpuscular Volume 81.2 fL (81-99); Mean Platelet Vol. 9.6 fl (6.2-12.0); Monocyte# 1.23 X10^3/uL; Monocyte% 10.6 % (0-10); NRBC Flagged by Analyzer 0 % (0-5); Neutrophil # 6.95 X10^3/uL (2.7-7.7); Neutrophil % 60.3 % (47-70); Platelet Count 363 K/mm3 (150-450); RBC Distribution Width CV 16.9 % (11.6-14.6); RBC Distribution Width SD 48.6 fl (35.1-43.9); White Blood Count 11.6 K/mm3 (4.4-11.0)
[2023-01-01 06:46] LABS: Anion Gap 7 (5-15); BUN 17 mg/dL (7-18); BUN/Creat Ratio 20.1 RATIO (10-20); Chloride 113 mmol/L (98-107); Creatinine, Serum 0.85 mg/dL (0.55-1.02); EST Glomerular Filtration Rate 69 mL/min (>60); Est Glom Filt Rate - Afr Amer 83 mL/min (>60); Estimated Creatinine Clearance 37.92 ml/min; Glucose 103 mg/dL (74-106); Potassium 2.9 mmol/L (3.5-5.1); Sodium Level 141 mmol/L (136-145)
--- NOTE | 2023-01-01 09:03 | CASEMGMT ---
Social Work SW met with pt and dgt Yue and introduced self and role of SW. 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 Pt's dgt confirms plan and states family can provide transportation to [facility] at time of discharge. Updates to be sent to [facility]. Plan: [facility], when medically ready [place]
--- NOTE | 2023-01-01 09:21 | CASEMGMT ---
Discharge Planning Updates sent to [facility] via [email or web address]. Vania Dexter, Discharge Planning Asst.
[2023-01-01] MEDS: Pantoprazole Sodium 40 MG in 0.9% Normal Saline (100mL MB+) 100 ML 330 MG IV ×2 (10:50→21:18)
--- NOTE | 2023-01-01 11:42 | PN.HOSP_ITS ---
Subjective Subjective Doing well, no issues overnight. Has some cramping abdominal pain consistent with the prep for colonoscopy and her recent GI bleeding Objective Data Objective Data Vital Signs: Vital Signs Temp Pulse Resp BP Pulse Ox O2 Del Method 98.4 F 60 18 113/64 98 Room Air 01/01/23 09:55 01/01/23 09:55 01/01/23 09:57 01/01/23 09:55 01/01/23 09:55 01/01/23 09:57 Oxygen Delivery Method Room Air Weight: 117 lb 1.047 oz Body Mass Index (BMI) 22.9 Intake & Output: Intake and Output for Last 24 Hours 12/31/22 01/01/23 01/02/23 03:59 03:59 03:59 Intake Total 1110 / 1110 1120 / 1120 0 / 0 Output Total 500 / 500 1999 / 1999 Balance 610 / 610 -880 / -880 0 / 0 Lab / Micro Data 01/01/23 05:40 01/01/23 05:40 Labs: Laboratory Results - last 24 hr 01/01/23 05:40: WBC 11.6 H, RBC 4.10 L, Hgb 10.7 L, Hct 33.3 L, MCV 81.2, MCH 26.1 L, MCHC 32.1 D, RDW Std Deviation 48.6 H, RDW Coeff of Leif 16.9 H, Plt Count 363, MPV 9.6, Immature Gran % (Auto) 0.300, Neut % (Auto) 60.3, Lymph % (Auto) 25.8, [place] % (Auto) 10.6 H, Eos % (Auto) 2.5, Baso % (Auto) 0.5, Absolute Neuts (auto) 7.0, Absolute Lymphs (auto) 2.98, Nucleated RBC % 0, Sodium 141, Potassium 2.9 L, Chloride 113 H, Carbon Dioxide 21.0, Anion Gap 7, BUN 17, Creatinine 0.85, Estim Creat Clear Calc 37.92, Est GFR (MDRD) Af Amer 83, Est GFR (MDRD) Non-Af 69, BUN/Creatinine Ratio 20.1 H, Glucose 103, Calcium 9.0 Micro: Microbiology 12/30/22 16:25 Stool Stool Occult Blood (YANCI) - Final Physical Exam Narrative General: Alert, Oriented x3, Cooperative, No apparent distress HEENT: Atraumatic, PERRLA, EOMI, Normocephalic Oral: Moist Mucosa Neck: Supple, No JVD Lungs: Diminished, Normal air movement, No rhonchi, No wheeze, No rales Cardiovascular: Regular rate, Regular Rhythm, Normal S1, Normal S2, No murmurs Abdomen: Soft, Non Tender, Non-Distended, No Hepato-splenomegaly Extremities: No edema, Capillary Refill Less than 3 Seconds Skin: No rashes, No breakdown Musculoskeletal: No Tenderness to Palpation of Joints or Extremities Neurological: Cranial nerves II-XII grossly intact, Motor Exam 5/5 strength throughout, Sensory exam intact to light touch and pain Psych/Mental Status: Normal Affect, Appropriate Assessment & Plan Assessment/Plan (1) Anemia: QUALIFIERS: Anemia type: iron deficiency Iron deficiency anemia type: other iron deficiency Qualified Code(s): D50.8 - Other iron deficiency anemias PLAN: Plan #Acute on chronic anemia due to acute GI bleed/GERD * Hb was 6.1 on admission. Is s/p 2 units of PRBCs * on IV pantoprazole 40mg bid. states she has had an ulcer in the past. * currently NPO * gastroenterology consulted. 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 A-fib/HTN/HLD/history of CVA ? Continue with her blood pressure medications, will hold her Eliquis secondary to GI bleeding ? We will monitor and make adjustments as necessary ? Continue with statin 3. Anxiety/depression/chronic migraines ? Stable ? Continue with escitalopram DVT: SCDs Charges/Coding Visit Charges Inpatient E&M: 69966 Subs Hosp L2
[2023-01-01] MEDS: Menthol/Lanolin/Calamine/Znox 113 GM Tube 1 APPLIC TOPICAL ×2 (11:56→21:19)
--- NOTE | 2023-01-01 12:15 | COLBX_PTH ---
PATIENT: ALTA MAYA LOC: [facility] U#:[id number] AGE/SX: 82/F ROOM: [facility] [place]/30/[address]: Dr. Stefano Palmer MD : 1940 BED: 1 DIS: 01/02/2023 SPEC #: [id number] RECD: 01/01/23 14:25 STATUS: KEMI REKaylan #: [id number] MARYA: 01/01/23 12:[address]: Jim Sanon DEPT: SURGICAL PATHOLOGY RECD BY: Nighat Ferreira ENTERED: 01/02/23 08:46 SP TYPE: COLON BX OTHR DR: MD Dr. Tripp Funez MD Dr. Nana Yaa Koram, MD Dr. Nicholas F Kotsonis, MD Tissues: Sigmoid colon biopsy Procedures: Surgery Specimen Level IV Comments: @ Ordering doctor for SUIV edited from to @ by DINESH at 01/02/23 1506 @ Submitting doctor edited from to @ by RGOOD at 01/02/23 1506 HEADER OPERATION: Colonoscopy with biopsy PRE-OP DIAGNOSIS: Anemia, rectal bleeding TISSUE SUBMITTED: Sigmoid colon biopsy MICROSCOPIC DIAGNOSIS Sigmoid colon, biopsy: Melanosis coli. Focal acute inflammation. AM:juan 01/03/2023 MICROSCOPIC DESCRIPTION Slides are reviewed. GROSS DESCRIPTION Received in fixative is one container labeled with the patient's name and designated sigmoid colon biopsy. The specimen consists of two irregular fragments of light panda soft tissue that in aggregate measure 0.4 x 0.2 x 0.1 cm. The specimen is totally submitted in one cassette. / SJ:juan 01/02/2023 TC:2 CPT: 82908
[2023-01-01] MEDS: Lidocaine Jelly 2% 20 ML Syringe (URO-JET) 1 APPLIC (13:00)
--- NOTE | 2023-01-01 13:15 | OP.CCLET_ITS ---
01/01/2023 Errol Shahid [address] [place] [address] Re : Colonoscopy procedure for Karlie Valle Dear Dr. Shahid This procedure was performed on Sunday, January 01, 2023. My impressions and recommendations are as follows: Impressions : - Abnormal digital rectal exam. - There was only mild external hemorrhoid found on perianal exam. - Anal fissure. Injected with botulinum toxin. - Rectal prolapse. - Melanosis in the colon. - Localized mild inflammation was found in the sigmoid colon secondary to colitis. Biopsied. Recommendations : - Return patient to [facility] for [facility] care. - Full liquid diet. - Continue present medications. - Keep the stools soft as possible - Avoid oral iron if possible as that will promote constipation and having to bear down and push which makes her prolapse worse - Hydrocortisone rectal suppositories twice a day x30 days - Repeat APC treatment in 2 to 3 months - No repeat colonoscopy due to age. My findings are described in the full procedure note, which is enclosed. If I can be of further assistance, please feel free to contact me at . Sincerely, Jim Sanon, 01/01/2023 1:15:21 PM This report has been signed electronically.
--- NOTE | 2023-01-01 13:15 | OP.COLON_ITS ---
Patient Name: Karlie Valle Procedure Date: 01/01/2023 12:14 PM Date of : 1940 Age: 82 Procedure: Colonoscopy Indications: Hematochezia Providers: Jim Sanon DO Referring MD: Chasity Huffman Medicines: Monitored Anesthesia Care Patient Profile: This is an 82 year old female. Refer to note in patient chart for documentation of history and physical. Last Colonoscopy: date unknown. Unable to locate last colonoscopy report. Complications: No immediate complications. Procedure: Pre-Anesthesia Assessment: - Prior to the procedure, a History and Physical was performed, and patient medications and allergies were reviewed. The patient is competent. The risks and benefits of the procedure and the sedation options and risks were discussed with the patient. All questions were answered and informed consent was obtained. Patient identification and proposed procedure were verified by the physician in the pre-procedure area. Mental Status Examination: alert and oriented. Respiratory Examination: clear to auscultation. CV Examination: normal. Prophylactic Antibiotics: The patient does not require prophylactic antibiotics. Prior Anticoagulants: The patient has taken no anticoagulant or antiplatelet agents. ASA Grade Assessment: III - A patient with severe systemic disease. After reviewing the risks and benefits, the patient was deemed in satisfactory condition to undergo the procedure. The anesthesia plan was to use monitored anesthesia care (MAC). Immediately prior to administration of medications, the patient was re-assessed for adequacy to receive sedatives. The heart rate, respiratory rate, oxygen saturations, blood pressure, adequacy of pulmonary ventilation, and response to care were monitored throughout the procedure. The physical status of the patient was re-assessed after the procedure. After I obtained informed consent, the scope was passed under direct vision. Throughout the procedure, the patient's blood pressure, pulse, and oxygen saturations were monitored continuously. The Colonoscope was introduced through the anus and advanced to the cecum, identified by appendiceal orifice and ileocecal valve. The colonoscopy was performed without difficulty. The patient tolerated the procedure well. The quality of the bowel preparation was adequate. Scope In: 12:31:54 PM Scope Withdrawal Time 0 hours 16 minutes 12 seconds Scope Out: 1:00:03 PM Total Procedure Duration Time 0 hours 28 minutes 9 seconds Findings: The digital rectal exam was abnormal. It revealed a grade 2 rectal prolapse with excoriation and anal fissure. [pertinent negatives]. The perianal exam findings. include There was only mild external hemorrhoid. A 9 mm anal fissure was found in the anal canal. Area was successfully injected with 80 units botulinum toxin. Moderate rectal prolapse was present. Coagulation for hemostasis using argon plasma at 0.3 liters/minute and 20 baker was successful. Estimated blood loss was minimal. A diffuse area of moderate melanosis was found in the entire colon. Localized mild inflammation characterized by erosions and erythema was found in the sigmoid colon. Biopsies were taken with a cold forceps for histology. Verification of patient identification for the specimen was done. Estimated blood loss was minimal. Impression: - Abnormal digital rectal exam. - There was only mild external hemorrhoid found on perianal exam. - Anal fissure. Injected with botulinum toxin. - Rectal prolapse. - Melanosis in the colon. - Localized mild inflammation was found in the sigmoid colon secondary to colitis. Biopsied. Recommendation: - Return patient to [facility] for [facility] care. - Full liquid diet. - Continue present medications. - Keep the stools soft as possible - Avoid oral iron if possible as that will promote constipation and having to bear down and push which makes her prolapse worse - Hydrocortisone rectal suppositories twice a day x30 days - Repeat APC treatment in 2 to 3 months - No repeat colonoscopy due to age. Procedure Code(s): --- Professional --- 43645, 59, Colonoscopy, flexible; with control of bleeding, any method 36036, Colonoscopy, flexible; with biopsy, single or multiple 17844, 59, Colonoscopy, flexible; with directed submucosal injection(s), any substance CPT copyright 2021 [employer]. All rights reserved. The codes documented in this report are preliminary and upon precision thread grinder operator review may be revised to meet current compliance requirements. Jim Sanon DO 01/01/2023 1:15:21 PM This report has been signed electronically. Number of Addenda: 0 Note Initiated On: 01/01/2023 12:14 PM
--- NOTE | 2023-01-01 14:54 | CHAPLAIN ---
Type of Pastoral Visit ___ Initial Visit ___ Follow-up Visit ___ On-call Visit ___ General Patient Visit ___ Spiritual Assessment ___ Family Conference ___ Bereavement ___ Rapid Response ___ Code Blue ___ Other (describe below) Pastoral Care Referral From ___ Patient ___ Family ___ Nurse ___ Physician ___ Chemical Plant Worker ___ Body Man ___ Other (describe below) Sacrament/Intervention ___ Active listening ___ Anointing ___ Hoahaoism ___ Bereavement ___ Communion ___ Daniella exploration ___ ___ Life review ___ Prayer ___ Reconciliation ___ Sacrament of Sick ___ Supportive presence ___ Wedding ___ Other (describe below) Pastoral Comments patient is sleeping after return from procedure; family members are in the room and agree that allowing pt to sleep is best; family is hopeful that pt may return home yet today; no other needs or concerns
[2023-01-01] MEDS: Potassium Chloride Oral Tablet 20 MEQ 40 MEQ PO (16:11)
--- NOTE | 2023-01-01 21:13 | EX.PCM.PN.GI ---
Subjective Subjective Patient underwent colonoscopy today and was discovered to have grade 2 to 3 rectal prolapse and severe anal fissure. The prolapse was reduced and the anal fissure was treated. Objective Data Objective Data Vital Signs: Vital Signs Temp Pulse Resp BP Pulse Ox O2 Del Method O2 Flow Rate 97.1 F L 125 H 18 140/73 H 98 Room Air 2 01/01/23 17:39 01/01/23 17:39 01/01/23 17:39 01/01/23 17:39 01/01/23 17:39 01/01/23 17:39 01/01/23 13:20 Oxygen Flow Rate (L/min) 2 Oxygen Delivery Method Room Air Weight: 117 lb 1.047 oz Body Mass Index (BMI) 22.9 Intake & Output: Intake and Output for Last 24 Hours 12/30/22 12/31/22 01/01/23 23:59 23:59 23:59 Intake Total 0 / 0 1630 / 2230 710 / 710 Output Total 2500 / 2500 Balance 0 / 0 -870 / -270 710 / 710 Lab / Micro Data 01/01/23 05:40 01/01/23 05:40 Labs: Laboratory Results - last 24 hr 01/01/23 05:40: WBC 11.6 H, RBC 4.10 L, Hgb 10.7 L, Hct 33.3 L, MCV 81.2, MCH 26.1 L, MCHC 32.1 D, RDW Std Deviation 48.6 H, RDW Coeff of Leif 16.9 H, Plt Count 363, MPV 9.6, Immature Gran % (Auto) 0.300, Neut % (Auto) 60.3, Lymph % (Auto) 25.8, [place] % (Auto) 10.6 H, Eos % (Auto) 2.5, Baso % (Auto) 0.5, Absolute Neuts (auto) 7.0, Absolute Lymphs (auto) 2.98, Nucleated RBC % 0, Sodium 141, Potassium 2.9 L, Chloride 113 H, Carbon Dioxide 21.0, Anion Gap 7, BUN 17, Creatinine 0.85, Estim Creat Clear Calc 37.92, Est GFR (MDRD) Af Amer 83, Est GFR (MDRD) Non-Af 69, BUN/Creatinine Ratio 20.1 H, Glucose 103, Calcium 9.0 Micro: Microbiology 12/30/22 16:25 Stool Stool Occult Blood (YANCI) - Final Physical Exam Narrative General: Alert, Oriented x3, Cooperative, No apparent distress HEENT: Atraumatic, PERRLA, EOMI, Normocephalic Oral: Moist Mucosa Neck: Supple, No JVD Lungs: Diminished, Normal air movement, No rhonchi, No wheeze, No rales Cardiovascular: Regular rate, Regular Rhythm, Normal S1, Normal S2, No murmurs Abdomen: Soft, Non Tender, Non-Distended, No Hepato-splenomegaly Extremities: No edema, Capillary Refill Less than 3 Seconds Skin: No rashes, No breakdown Musculoskeletal: No Tenderness to Palpation of Joints or Extremities Neurological: Cranial nerves II-XII grossly intact, Motor Exam 5/5 strength throughout, Sensory exam intact to light touch and pain Psych/Mental Status: Normal Affect, Appropriate Assessment & Plan Assessment/Plan (1) Anemia: QUALIFIERS: Anemia type: iron deficiency Iron deficiency anemia type: other iron deficiency Qualified Code(s): D50.8 - Other iron deficiency anemias (2) GIB (gastrointestinal bleeding): QUALIFIERS: GI bleed type/associated pathology: unspecified gastrointestinal hemorrhage type Qualified Code(s): K92.2 - Gastrointestinal hemorrhage, unspecified PLAN: Plan 82 yo with afib on anticoagulation with recurrent gi bleed secondary to rectal prolapse. Rec: ok to restart anticoagulaiton, Dulcolax 20mg bid to keep stool soft with psyllium based fiber once a day Charges/Coding Visit Charges Inpatient E&M: 23311 [facility] Hosp L3
[2023-01-01] MEDS: Atorvastatin Calcium 40 MG Tablet PO (21:19)
[2023-01-01] MEDS: Metoprolol Tartrate 25 MG Tablet 12.5 MG PO (21:19)
[2023-01-01] MEDS: Pramipexole Di-HCl 0.125 MG Tablet PO (21:20)
[2023-01-01] MEDS: Mirtazapine 15 MG Tablet PO (21:20)
[2023-01-02 05:34] VITALS: BP 132/63; PULSE 87; RESP 16; TEMP 36.6; O2SAT 95
[2023-01-02 06:00] VITALS: BMI 23.1
[2023-01-02 06:46] LABS: Anion Gap 4 (5-15); BUN 20 mg/dL (7-18); Calcium,Total 8.8 mg/dL (8.5-10.1); Chloride 118 mmol/L (98-107); Creatinine, Serum 1.11 mg/dL (0.55-1.02); EST Glomerular Filtration Rate 50 mL/min (>60); Est Glom Filt Rate - Afr Amer 61 mL/min (>60); Estimated Creatinine Clearance 29.04 ml/min; Glucose 108 mg/dL (74-106); Potassium 3.7 mmol/L (3.5-5.1); Sodium Level 143 mmol/L (136-145)
--- NOTE | 2023-01-02 07:00 | EX.PCM.PN.GI ---
Subjective Subjective Patient is doing well from a GI standpoint. She has not had any bleeding overnight with her anticoagulation restarted. Objective Data Objective Data Vital Signs: Vital Signs Temp Pulse Resp BP Pulse Ox O2 Del Method O2 Flow Rate 98.8 F 84 18 108/67 98 Room Air 2 01/02/23 10:34 01/02/23 10:34 01/02/23 10:34 01/02/23 10:34 01/02/23 10:34 01/02/23 10:34 01/01/23 13:20 Oxygen Flow Rate (L/min) 2 Oxygen Delivery Method Room Air Weight: 117 lb 11.629 oz Body Mass Index (BMI) 23.1 Intake & Output: Intake and Output for Last 24 Hours 12/31/22 01/01/23 01/02/23 23:59 23:59 23:59 Intake Total 1630 / 2230 820 / 820 110 / 110 Output Total 2500 / 2500 Balance -870 / -270 820 / 820 110 / 110 Lab / Micro Data 01/01/23 05:40 01/02/23 05:50 Labs: Laboratory Results - last 24 hr 01/02/23 05:50: Sodium 143, Potassium 3.7, Chloride 118 H, Carbon Dioxide 21.0, Anion Gap 4 L, BUN 20 H, Creatinine 1.11 H, Estim Creat Clear Calc 29.04, Est GFR (MDRD) Af Amer 61, Est GFR (MDRD) Non-Af 50 L, BUN/Creatinine Ratio 18.0, Glucose 108 H, Calcium 8.8 Micro: Microbiology 12/30/22 16:25 Stool Stool Occult Blood (YANCI) - Final Physical Exam Narrative General: Alert, Oriented x3, Cooperative, No apparent distress HEENT: Atraumatic, PERRLA, EOMI, Normocephalic Oral: Moist Mucosa Neck: Supple, No JVD Lungs: Diminished, Normal air movement, No rhonchi, No wheeze, No rales Cardiovascular: Regular rate, Regular Rhythm, Normal S1, Normal S2, No murmurs Abdomen: Soft, Non Tender, Non-Distended, No Hepato-splenomegaly Extremities: No edema, Capillary Refill Less than 3 Seconds Skin: No rashes, No breakdown Musculoskeletal: No Tenderness to Palpation of Joints or Extremities Neurological: Cranial nerves II-XII grossly intact, Motor Exam 5/5 strength throughout, Sensory exam intact to light touch and pain Psych/Mental Status: Normal Affect, Appropriate Assessment & Plan Assessment/Plan (1) Anemia: QUALIFIERS: Anemia type: iron deficiency Iron deficiency anemia type: other iron deficiency Qualified Code(s): D50.8 - Other iron deficiency anemias (2) GIB (gastrointestinal bleeding): QUALIFIERS: GI bleed type/associated pathology: unspecified gastrointestinal hemorrhage type Qualified Code(s): K92.2 - Gastrointestinal hemorrhage, unspecified PLAN: Plan 82 yo with afib on anticoagulation with recurrent gi bleed secondary to rectal prolapse. Rec: ok to restart anticoagulaiton, Dulcolax 20mg bid to keep stool soft with psyllium based fiber once a day Charges/Coding Visit Charges Inpatient E&M: 61530 [facility] Hosp L3
[2023-01-02 08:00] VITALS: BP 125/70; PULSE 82; RESP 18; TEMP 36.4; O2SAT 95
[2023-01-02 08:07] VITALS: PULSE 82
[2023-01-02] MEDS: Metoprolol Tartrate 25 MG Tablet 12.5 MG PO (08:07)
[2023-01-02] MEDS: Calcium Carb/Vitamin D 1 TABLET Tablet PO (08:07)
[2023-01-02] MEDS: Ferrous Sulfate 325 MG Tablet PO (08:07)
[2023-01-02] MEDS: Escitalopram Oxalate 10 MG Tablet PO (08:08)
[2023-01-02] MEDS: Menthol/Lanolin/Calamine/Znox 113 GM Tube 1 APPLIC TOPICAL (08:08)
[2023-01-02] MEDS: 0.9% Saline Lock 10 ML Syringe IV (08:14)
[2023-01-02] MEDS: Pantoprazole Sodium 40 MG in 0.9% Normal Saline (100mL MB+) 100 ML 330 MG IV (08:14)
[2023-01-02 08:25] VITALS: O2SAT 95
--- NOTE | 2023-01-02 09:49 | TREXTCAR_ITS ---
Diet Diet Order/Speech Therapy: 01/01/23 14:54 Diet: Regular - General Is pt able to select menu?: Yes Routine Orders/Code Status Routine Lab Work: CBC and BMP Code Status: DNRCC Therapies Physical Therapy: Eval and Treat Occupational Therapy: Eval and Treat Problem/Diagnosis (1) Anemia: Status: Acute Code(s): D64.9 - Anemia, unspecified (2) GIB (gastrointestinal bleeding): Status: Acute Code(s): K92.2 - Gastrointestinal hemorrhage, unspecified Plan #Acute on chronic anemia due to acute GI bleed/GERD * Hb was 6.1 on admission. Is s/p 2 units of PRBCs * on IV pantoprazole 40mg bid. states she has had an ulcer in the past. * currently NPO * gastroenterology consulted. 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 A-fib/HTN/HLD/history of CVA ? Continue with her blood pressure medications, will hold her Eliquis secondary to GI bleeding ? We will monitor and make adjustments as necessary ? Continue with statin 3. Anxiety/depression/chronic migraines ? Stable ? Continue with escitalopram DVT: SCDs Allergies/Procedures Done in Hospital Allergies ranolazine [From Ranexa] Adverse Reaction (Severe, Verified 12/30/22 16:02) low urine output, rash oseltamivir [From Tamiflu] Adverse Reaction (Verified 12/30/22 16:02) Unknown Procedures: Colonoscopy and EGD Type of Care/Length of Stay Estimated LOS: More Than 30 Days Type of Care Needed: Intermediate Rehab Potential: Good Prognosis: Good Additional Orders/Day of Discharge Day of Discharge: 01/02/23 Dietary and Speech Recommendations Dietitian Recommendations/Changes: Recommend advance diet as tolerated to cardiac. ONS as needed once PO established with solid food. Discharge Plan Admission Admit Date/Time: 12/30/22 17:09 Attending Provider: Stefano Palmer Primary Care Provider: Errol Shahid Consulting Providers: Chasity Huffman; Helene Khan Instructions Additional Instructions / Restrictions: Obtain a CBC and a BMP [facility] the [facility] in a couple of days to monitor your anemia and renal function. Discharge Orders/Prescriptions Prescriptions: New hydrocortisone acetate 25 mg suppository 25 mg [place] BID 28 Days Qty: 24 0RF Eliquis 2.5 mg tablet 2.5 mg PO BID Qty: 60 0RF Continued acetaminophen 500 mg Tablet 1,000 mg PO Q8 PRN (Reason: fever/pain 1-10) Qty: 0 0RF atorvastatin 40 mg tablet 40 mg PO QHS pantoprazole 40 mg tablet,delayed release (DR/EC) 40 mg PO DAILY mirtazapine 15 mg tablet 22.5 mg PO QHS metoprolol tartrate 25 mg tablet 12.5 mg PO BID calcium carbonate-vitamin D3 [Oyster Shell Calcium-Vit D3] 500 mg-5 mcg (200 unit) tablet 1 tab PO BREAKFAST menthol-zinc oxide [Calmoseptine] 0.44-20.6 % Ointment 1 applic topical BID Qty: 0 0RF Protocol: *Topical Application Instructions APPLICATION INSTRUCTIONS: Apply to coccyx pramipexole 0.125 mg Tablet 0.125 mg PO QHS Qty: 0 0RF escitalopram oxalate 10 mg tablet 10 mg PO DAILY ferrous sulfate [Feosol] 325 mg (65 mg iron) tablet 325 mg PO DAILY sennosides-docusate sodium [2-in-1 Laxative] 8.6-50 mg tablet 1 tab-cap PO DAILY Discontinued Eliquis 5 mg tablet 5 mg PO BID Referrals / Follow Up: Errol Shahid MD [Primary Care Provider] - Disposition Disposition (needs filled in before D/C Order can be placed): [facility] Facility (1) Anemia Qualifiers: Anemia type: iron deficiency Iron deficiency anemia type: other iron deficiency Qualified Code(s): D50.8 - Other iron deficiency anemias (2) GIB (gastrointestinal bleeding) Qualifiers: GI bleed type/associated pathology: unspecified gastrointestinal hemorrhage type Qualified Code(s): K92.2 - Gastrointestinal hemorrhage, unspecified
--- NOTE | 2023-01-02 10:11 | PHA.DC_ITS ---
Pharmacy [facility] has performed discharge medication reconciliation and counseling for this patient. The patient's discharge medication list was reviewed for discrepancies and discrepancies were resolved. The patient's daughter was counseled on the following discharge medications and changes in medications for homegoing were reviewed. The Reason for Use, instructions for use, and potential side effects were reviewed for all new medications. The patient's daughter's questions regarding all of their medications were answered. 1. Apixaban 2.5 mg PO BID (reduced dose) 2. Hydrocortisone 25 mg suppository [place] BID The patient's daughter was able to verbally demonstrate an understanding of their discharge medications. Medications at Discharge Home Medications acetaminophen 500 mg tablet 1,000 mg (2 x 500 mg) PO Q8 PRN fever/pain 1-10 #0 tabs 02/20/22 atorvastatin 40 mg tablet 40 mg PO QHS Cholesterol 02/20/22 calcium carbonate 500 mg-vitamin D3 5 mcg (200 unit) tablet (Oyster Shell Calcium-Vitamin D3) 1 tab PO BREAKFAST Supplement 02/20/22 metoprolol tartrate 25 mg tablet 12.5 mg PO BID BP 02/20/22 mirtazapine 15 mg tablet 22.5 mg PO QHS Check with primary doctor 02/20/22 pantoprazole 40 mg tablet,delayed release 40 mg PO DAILY GERD 02/20/22 menthol 0.44 %-zinc oxide 20.6 % topical ointment (Calmoseptine) 1 applic topical BID #0 grams 03/09/22 pramipexole 0.125 mg tablet 0.125 mg PO QHS #0 tabs 03/09/22 escitalopram oxalate 10 mg tablet 10 mg PO DAILY depression 12/30/22 ferrous sulfate 325 mg (65 mg iron) tablet (Feosol) 325 mg PO DAILY 12/30/22 sennosides 8.6 mg-docusate sodium 50 mg tablet (2-in-1 Laxative) 1 tab-cap PO DAILY constipation 12/30/22 apixaban 2.5 mg tablet (Eliquis) 2.5 mg PO BID #60 tabs 01/02/23 hydrocortisone acetate 25 mg rectal suppository 25 mg [place] BID 4 weeks #24 ea 01/02/23
[2023-01-02 10:34] VITALS: BP 108/67; PULSE 84; RESP 18; TEMP 37.1; O2SAT 98
--- NOTE | 2023-01-02 13:03 | DS.PCM_ITS ---
Providers Date of Admission: 12/30/22 Primary Care Physician: Dr. Errol Shahid MD Consultations 12/30/22 20:13 Consult: Gastroenterology Routine Consulting Provider: [facility] Reason for Consult: ABLA presumed GI bleed EMERGENT Consult: No MD Notified: Yes Date Notified: 12/30/22 Time Notified: 17:15 Method of Notification: Text Reason For Visit: SUSPECTED GI BLEED, ABLA Diagnosis Discharge Diagnosis (1) Anemia: Status: Acute Code(s): D64.9 - Anemia, unspecified Qualifiers: Anemia type: iron deficiency Iron deficiency anemia type: other iron deficiency Qualified Code(s): D50.8 - Other iron deficiency anemias (2) GIB (gastrointestinal bleeding): Status: Acute Code(s): K92.2 - Gastrointestinal hemorrhage, unspecified Qualifiers: GI bleed type/associated pathology: unspecified gastrointestinal hemorrhage type Qualified Code(s): K92.2 - Gastrointestinal hemorrhage, unspecified Plan #Acute on chronic anemia due to acute GI bleed/GERD * Hb was 6.1 on admission. Is s/p 2 units of PRBCs * on IV pantoprazole 40mg bid. states she has had an ulcer in the past. * currently NPO * gastroenterology consulted. 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 A-fib/HTN/HLD/history of CVA ? Continue with her blood pressure medications, will hold her Eliquis secondary to GI bleeding ? We will monitor and make adjustments as necessary ? Continue with statin 3. Anxiety/depression/chronic migraines ? Stable ? Continue with escitalopram DVT: SCDs Medications at Discharge Home Medications acetaminophen 500 mg tablet 1,000 mg (2 x 500 mg) PO Q8 PRN fever/pain 1-10 #0 tabs 02/20/22 atorvastatin 40 mg tablet 40 mg PO QHS Cholesterol 02/20/22 calcium carbonate 500 mg-vitamin D3 5 mcg (200 unit) tablet (Oyster Shell Calcium-Vitamin D3) 1 tab PO BREAKFAST Supplement 02/20/22 metoprolol tartrate 25 mg tablet 12.5 mg PO BID BP 02/20/22 mirtazapine 15 mg tablet 22.5 mg PO QHS Check with primary doctor 02/20/22 pantoprazole 40 mg tablet,delayed release 40 mg PO DAILY GERD 02/20/22 menthol 0.44 %-zinc oxide 20.6 % topical ointment (Calmoseptine) 1 applic topical BID #0 grams 03/09/22 pramipexole 0.125 mg tablet 0.125 mg PO QHS #0 tabs 03/09/22 escitalopram oxalate 10 mg tablet 10 mg PO DAILY depression 12/30/22 ferrous sulfate 325 mg (65 mg iron) tablet (Feosol) 325 mg PO DAILY 12/30/22 sennosides 8.6 mg-docusate sodium 50 mg tablet (2-in-1 Laxative) 1 tab-cap PO DAILY constipation 12/30/22 apixaban 2.5 mg tablet (Eliquis) 2.5 mg PO BID #60 tabs 01/02/23 hydrocortisone acetate 25 mg rectal suppository 25 mg [place] BID 4 weeks #24 ea 01/02/23 Hospital Course Operations None Procedures Colonoscopy and EGD Summary of Care Provided Minutes Spent on Discharge: 33 Hospital Course: Per HPI: The patient is an 82 y/o F w/ PMHx: RLS, Anxiety and Depression, Hx esophageal stenosis, Hx GI bleed w/ angiodysplasia duodenum/stomach, GERD, HTN, HLD, PAF, Hx CVA, Chronic migraine headaches, IBS, Chronic normocytic anemia/Fe deficiency anemia who presents to the [facility] ED on 12/30/22 per PCP recommendation secondary to abnormal outpatient labs ordered per Dr. Tripp Shahid with noted Hgb level 6.1, MCV 82.4 with patient reported lightheadedness, dizziness, increased fatigue. Of note patient had CBC also in 12/28/2022 with hemoglobin at that time 6.7, MCV 82.9 with Eliquis held per PCP with repeat level unfortunately noted to be 6.1 prompting the referral for evaluation with prior to this recent assessment her level most recently 09/28/2022 hemoglobin 11.8. Patient does admit to dark black stools but timeline is unclear although daughter who is present does not believe this is true primarily reports the patient as being lightheaded and dizzy. Patient denies any dyspnea associated. Patient does complain of left focal anterior chest discomfort which is reproducible upon palpation and she does confirm that this is the discomfort she has been having worse with certain types of movement. Work-up in the ED included T97.8, heart rate 82, BP 172/69, respiratory rate 14, 99% on room air, CBC with WBC 11.7, hemoglobin 6.9, MCV 81.8, platelet 446 without marked shift, CMP with chloride 110, BUN/creatinine 22/0.95, glucose 128 otherwise not marked appearing, hepatic profile unremarkable, type and cross for 2 unit initiated per ED physician, occult blood requested per ED but not sent because no stool in the vault and no gross blood noted. Hospital Course: 1. Acute on chronic anemia due to acute GI bleed from 2 gastric AVMs/GERD/rectal prolapse/anal fissure?82-year-old female presented to the hospital with anemia that was felt to be due to an acute GI bleed. Yesterday neurology was consulted and initially performed a EGD which demonstrated Schatzki's ring as well as a hiatal hernia and 2 bleeding angiodysplastic lesions in the duodenum. A colonoscopy was obtained and this was unremarkable for any source of bleeding however it did show rectal prolapse and a fairly large anal fissure as well. This was treated and gastroenterology recommended discharge with stool softeners and hydrocortisone suppositories twice a day. She is anemic and so we will continue with her iron tablet which is only dose daily but I do recommend that she have more aggressive bowel regimen at the [facility] if necessary to reduce the chances of repeated rectal prolapse. Gastroenterology also did state that it was okay to restart her anticoagulation as she is already on a PPI, dosing was adjusted secondary to age and weight so her Eliquis was decreased to 2.5 mg p.o. twice daily since she is 82 years old and less than 60 kg. I discussed with her and her daughter the plan for discharge back to the [facility] today and they both expressed understanding of the risk benefits of discharge and are okay with her going back today. I recommended she have outpatient lab work to monitor her hemoglobin. 2. A-fib, hypertension, hyperlipidemia, history of CVA, anxiety, depression, chronic migraines are all chronic medical conditions which complicate her care. Her home medications were continued where appropriate. Eliquis dosing adjustment as indicated above Physical Exam Narrative General: Alert, Oriented x3, Cooperative, No apparent distress HEENT: Atraumatic, PERRLA, EOMI, Normocephalic Oral: Moist Mucosa Neck: Supple, No JVD Lungs: Diminished, Normal air movement, No rhonchi, No wheeze, No rales Cardiovascular: Regular rate, Regular Rhythm, Normal S1, Normal S2, No murmurs Abdomen: Soft, Non Tender, Non-Distended, No Hepato-splenomegaly Extremities: No edema, Capillary Refill Less than 3 Seconds Skin: No rashes, No breakdown Musculoskeletal: No Tenderness to Palpation of Joints or Extremities Neurological: Cranial nerves II-XII grossly intact, Motor Exam 5/5 strength throughout, Sensory exam intact to light touch and pain Psych/Mental Status: Normal Affect, Appropriate Weight / BMI Weight Weight: 117 lb 11.629 oz Body Mass Index (BMI) 23.1 ABG / Lab / Microbiology Data 01/01/23 05:40 01/02/23 05:50 Laboratory: Laboratory Results - last 24 hr 01/02/23 05:50: Sodium 143, Potassium 3.7, Chloride 118 H, Carbon Dioxide 21.0, Anion Gap 4 L, BUN 20 H, Creatinine 1.11 H, Estim Creat Clear Calc 29.04, Est GFR (MDRD) Af Amer 61, Est GFR (MDRD) Non-Af 50 L, BUN/Creatinine Ratio 18.0, Glucose 108 H, Calcium 8.8 Microbiology: Microbiology 12/30/22 16:25 Stool Stool Occult Blood (YANCI) - Final Meaningful Use Info Meaningful Use Diagnoses (Choose all that apply): None applicable Discharge Plan Admission Admit Date/Time: 12/30/22 17:09 Attending Provider: Stefano Palmer Primary Care Provider: Errol Shahid Consulting Providers: Chasity Huffman; Helene Khan Instructions Additional Instructions / Restrictions: Obtain a CBC and a BMP at the detention in a couple of days to monitor your anemia and renal function. Discharge Orders/Prescriptions Prescriptions: New hydrocortisone acetate 25 mg suppository 25 mg [place] BID 28 Days Qty: 24 0RF Eliquis 2.5 mg tablet 2.5 mg PO BID Qty: 60 0RF Continued acetaminophen 500 mg Tablet 1,000 mg PO Q8 PRN (Reason: fever/pain 1-10) Qty: 0 0RF atorvastatin 40 mg tablet 40 mg PO QHS pantoprazole 40 mg tablet,delayed release (DR/EC) 40 mg PO DAILY mirtazapine 15 mg tablet 22.5 mg PO QHS metoprolol tartrate 25 mg tablet 12.5 mg PO BID calcium carbonate-vitamin D3 [Oyster Shell Calcium-Vit D3] 500 mg-5 mcg (200 unit) tablet 1 tab PO BREAKFAST menthol-zinc oxide [Calmoseptine] 0.44-20.6 % Ointment 1 applic topical BID Qty: 0 0RF Protocol: *Topical Application Instructions APPLICATION INSTRUCTIONS: Apply to coccyx pramipexole 0.125 mg Tablet 0.125 mg PO QHS Qty: 0 0RF escitalopram oxalate 10 mg tablet 10 mg PO DAILY ferrous sulfate [Feosol] 325 mg (65 mg iron) tablet 325 mg PO DAILY sennosides-docusate sodium [2-in-1 Laxative] 8.6-50 mg tablet 1 tab-cap PO DAILY Discontinued Eliquis 5 mg tablet 5 mg PO BID Referrals / Follow Up: Errol Shahid MD [Primary Care Provider] - Disposition Disposition (needs filled in before D/C Order can be placed): [facility] Charges/Coding Visit Charges Inpatient E&M: 85674 Disch Hosp >30min
--- NOTE | 2023-01-02 13:22 | NURSING ---
Report called to [facility] at [phone] to Chey and told her that pt will be back to facility at some point today. Daughter will be transporting her via her own car.
--- NOTE | 2023-01-02 14:30 | CASEMGMT ---
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 Conferred with Aura, cracking unit operator, who faxed orders over to the [facility]; RN for patient also called report. Family present on unit and transported patient back to the facility. No social work services requested or indicated prior to patient's discharge today. PLAN: Return to [facility], has been intermediate level of care there. -KIMBER Moore
== END 2023-01-02 14:10 | disposition skilled nursing facility (03) | DRG 393 ==
LOC: ED 17:04 → MS3 17:41
PROVIDERS: Internal Medicine Gastroenterology; Student in an Organized Health Care Education/Training Program; Admitting Provider Family Medicine; Emergency Provider Emergency Medicine; PCP Family Medicine; Referring Provider Family Medicine; Visit Provider Family Medicine
PROC: 0DJ08ZZ Inspection of Upper Intestinal Tract, Via Natural or Artificial Opening Endoscopic (ICD-10-PCS; CPT 43235; principal; 2022-12-31 11:00)
PROC: 0DJD8ZZ Inspection of Lower Intestinal Tract, Via Natural or Artificial Opening Endoscopic (ICD-10-PCS; CPT 45378; principal; 2023-01-01 12:10)
DX: K62.3 Rectal prolapse (principal); K31.811 Angiodysplasia of stomach and duodenum with bleeding; D62 Acute posthemorrhagic anemia; I69.354 Hemiplegia and hemiparesis following cerebral infarction affecting left non-dominant side; I48.0 Paroxysmal atrial fibrillation; G25.81 Restless legs syndrome; I10 Essential (primary) hypertension; F32.A Depression, unspecified; K22.2 Esophageal obstruction; K44.9 Diaphragmatic hernia without obstruction or gangrene; I69.320 Aphasia following cerebral infarction; I25.10 Atherosclerotic heart disease of native coronary artery without angina pectoris; K21.9 Gastro-esophageal reflux disease without esophagitis; E78.5 Hyperlipidemia, unspecified; K60.2 Anal fissure, unspecified; K64.4 Residual hemorrhoidal skin tags; K58.9 Irritable bowel syndrome, unspecified; F41.9 Anxiety disorder, unspecified; Z66 Do not resuscitate; Z79.01 Long term (current) use of anticoagulants; K63.89 Other specified diseases of intestine
CPT/HCPCS: 36415; 80048; 80053; 82274; 85014; 85018; 85025; 85027; 86850; 86900; 86901; 86920; 86922; 88305; 93005; 94668; 97162; 97166; 99285; P9016; A4216; J2405

== ENCOUNTER → 2022-12-30 | Outpatient (CLI) | payer MEDICARE, OTHER, SELFPAY ==
[2022-12-30 13:01] LABS: Hemoglobin 6.1 g/dL (12.0-15.0); Mean Corp Hgb Conc 27.7 g/dL (32-36); Mean Corpuscular Hgb 22.8 pg (27.0-32.0); Mean Corpuscular Volume 82.4 fL (81-99); Mean Platelet Vol. 10.3 fl (6.2-12.0); Platelet Count 427 K/mm3 (150-450); RBC Distribution Width CV 15.9 % (11.6-14.6); Red Blood Count 2.67 M/mm3 (4.2-5.4); White Blood Count 10.2 K/mm3 (4.4-11.0)
== END | disposition home or self-care (01) ==
LOC: LABSPEC 12:12
PROVIDERS: PCP Family Medicine; Visit Provider Family Medicine
DX: I10 Essential (primary) hypertension (principal); I48.91 Unspecified atrial fibrillation; E78.5 Hyperlipidemia, unspecified; D64.9 Anemia, unspecified
CPT/HCPCS: 85027

== ENCOUNTER → 2023-01-19 | Outpatient (REF) | payer MEDICARE, OTHER, SELFPAY ==
[2023-01-19 07:50] LABS: Hematocrit 37.4 % (37-47); Hemoglobin 11.7 g/dL (12.0-15.0); Mean Corp Hgb Conc 31.3 g/dL (32-36); Mean Corpuscular Hgb 26.3 pg (27.0-32.0); Mean Platelet Vol. 10.1 fl (6.2-12.0); Platelet Count 287 K/mm3 (150-450); RBC Distribution Width CV 19.9 % (11.6-14.6); Red Blood Count 4.45 M/mm3 (4.2-5.4); White Blood Count 6.4 K/mm3 (4.4-11.0)
== END ==
LOC: OLS.WCC 05:00
PROVIDERS: PCP Family Medicine; Visit Provider Family Medicine
DX: D64.9 Anemia, unspecified (principal)
CPT/HCPCS: 36415; 85027

== ENCOUNTER → 2023-02-07 | Outpatient (REF) | payer MEDICARE, OTHER, SELFPAY ==
[2023-02-07 08:44] LABS: Erythrocyte Sedimentation Rate 68 mm/hr (0-30)
[2023-02-07 08:47] LABS: Hemoglobin 10.9 g/dL (12.0-15.0); Mean Corp Hgb Conc 30.3 g/dL (32-36); Mean Corpuscular Hgb 25.8 pg (27.0-32.0); Mean Corpuscular Volume 85.1 fL (81-99); POSITIVE MORPHOLOGY YES; Platelet Count 346 K/mm3 (150-450); RBC Distribution Width CV 21.7 % (11.6-14.6); RBC Distribution Width SD 67.1 fl (35.1-43.9); Red Blood Count 4.23 M/mm3 (4.2-5.4); White Blood Count 9.1 K/mm3 (4.4-11.0)
[2023-02-07 08:51] LABS: Scan Indicated on CBC? Y/N YES- FLAGS NOTED
[2023-02-07 09:19] LABS: Anion Gap 4 (5-15); BUN 19 mg/dL (7-18); BUN/Creat Ratio 20.9 RATIO (10-20); Calcium,Total 9.1 mg/dL (8.5-10.1); Chloride 110 mmol/L (98-107); Creatinine, Serum 0.91 mg/dL (0.55-1.02); EST Glomerular Filtration Rate 63 mL/min (>60); Est Glom Filt Rate - Afr Amer 76 mL/min (>60); Glucose 123 mg/dL (74-106); Potassium 3.7 mmol/L (3.5-5.1); Sodium Level 140 mmol/L (136-145); Uric Acid 5.4 mg/dL (2.6-6.0)
[2023-02-07 10:22] LABS: Differential Comment SCANNED
== END ==
LOC: OLS.WCC 07:42
PROVIDERS: PCP Family Medicine; Visit Provider Family Medicine
DX: D64.9 Anemia, unspecified (principal); R53.83 Other fatigue; M25.531 Pain in right wrist; M25.431 Effusion, right wrist
CPT/HCPCS: 36415; 80048; 84550; 85027; 85652

== ENCOUNTER → 2023-04-02 | Outpatient (REF) | payer MEDICARE, OTHER, SELFPAY ==
[2023-04-02 08:39] LABS: Hematocrit 36.9 % (37-47); Hemoglobin 11.4 g/dL (12.0-15.0); Mean Corp Hgb Conc 30.9 g/dL (32-36); Mean Corpuscular Hgb 26.7 pg (27.0-32.0); Mean Corpuscular Volume 86.4 fL (81-99); Mean Platelet Vol. 9.4 fl (6.2-12.0); Platelet Count 354 K/mm3 (150-450); RBC Distribution Width CV 19.5 % (11.6-14.6); RBC Distribution Width SD 62.4 fl (35.1-43.9); Red Blood Count 4.27 M/mm3 (4.2-5.4); White Blood Count 9.9 K/mm3 (4.4-11.0)
[2023-04-02 09:04] LABS: Anion Gap 6 (5-15); BUN 22 mg/dL (7-18); BUN/Creat Ratio 24.4 RATIO (10-20); Calcium,Total 9.7 mg/dL (8.5-10.1); Chloride 111 mmol/L (98-107); EST Glomerular Filtration Rate 64 mL/min (>60); Est Glom Filt Rate - Afr Amer 77 mL/min (>60); Glucose 115 mg/dL (74-106); Potassium 4.2 mmol/L (3.5-5.1); Sodium Level 140 mmol/L (136-145)
== END ==
LOC: OLS.WCC 05:00
PROVIDERS: PCP Family Medicine; Visit Provider Family Medicine
DX: I82.409 Acute embolism and thrombosis of unspecified deep veins of unspecified lower extremity (principal); I10 Essential (primary) hypertension; Z79.899 Other long term (current) drug therapy
CPT/HCPCS: 36415; 80048; 85027

== ENCOUNTER → 2023-05-02 | Outpatient (REF) | payer MEDICARE, OTHER, SELFPAY ==
[2023-05-02 08:57] LABS: Hematocrit 37.1 % (37-47); Hemoglobin 11.6 g/dL (12.0-15.0); Mean Corp Hgb Conc 31.3 g/dL (32-36); Mean Corpuscular Hgb 28.1 pg (27.0-32.0); Mean Corpuscular Volume 89.8 fL (81-99); Platelet Count 330 K/mm3 (150-450); RBC Distribution Width CV 14.8 % (11.6-14.6); RBC Distribution Width SD 48.8 fl (35.1-43.9); Red Blood Count 4.13 M/mm3 (4.2-5.4); White Blood Count 10.2 K/mm3 (4.4-11.0)
== END ==
LOC: OLS.WCC 04:00
PROVIDERS: PCP Family Medicine; Referring Provider Family Medicine; Visit Provider Family Medicine
DX: I82.409 Acute embolism and thrombosis of unspecified deep veins of unspecified lower extremity (principal); Z79.899 Other long term (current) drug therapy
CPT/HCPCS: 36415; 85027

== ENCOUNTER → 2023-07-02 | Outpatient (REF) | payer MEDICARE, OTHER, SELFPAY ==
[2023-07-02 09:59] LABS: Hematocrit 33.4 % (37-47); Hemoglobin 10.5 g/dL (12.0-15.0); Mean Corp Hgb Conc 31.4 g/dL (32-36); Mean Corpuscular Hgb 26.6 pg (27.0-32.0); Mean Corpuscular Volume 84.8 fL (81-99); Mean Platelet Vol. 9.7 fl (6.2-12.0); Platelet Count 335 K/mm3 (150-450); RBC Distribution Width SD 46.5 fl (35.1-43.9); Red Blood Count 3.94 M/mm3 (4.2-5.4); White Blood Count 8.4 K/mm3 (4.4-11.0)
[2023-07-02 10:34] LABS: Anion Gap 6 (5-15); BUN 24 mg/dL (7-18); BUN/Creat Ratio 26.3 RATIO (10-20); Calcium,Total 8.7 mg/dL (8.5-10.1); Chloride 111 mmol/L (98-107); Cholesterol 154 mg/dL (200); Creatinine, Serum 0.91 mg/dL (0.55-1.02); EST Glomerular Filtration Rate 63 mL/min (>60); Est Glom Filt Rate - Afr Amer 76 mL/min (>60); Glucose 118 mg/dL (74-106); High Density Lipoprotein 40 mg/dL; Potassium 3.8 mmol/L (3.5-5.1); Sodium Level 141 mmol/L (136-145); Triglycerides 138 mg/dL; Very Low Density Lipoprotein 28 mg/dL (5-40)
== END ==
LOC: OLS.WCC 04:00
PROVIDERS: PCP Family Medicine; Referring Provider Family Medicine; Visit Provider Family Medicine
DX: I10 Essential (primary) hypertension (principal); E78.5 Hyperlipidemia, unspecified; I82.409 Acute embolism and thrombosis of unspecified deep veins of unspecified lower extremity; Z79.899 Other long term (current) drug therapy
CPT/HCPCS: 36415; 80048; 80061; 85027

== ENCOUNTER → 2023-10-01 | Outpatient (REF) | payer MEDICARE, OTHER, SELFPAY ==
[2023-10-01 08:45] LABS: Hematocrit 34.4 % (37-47); Hemoglobin 10.7 g/dL (12.0-15.0); Mean Corp Hgb Conc 31.1 g/dL (32-36); Mean Corpuscular Hgb 26.4 pg (27.0-32.0); Mean Corpuscular Volume 84.9 fL (81-99); Mean Platelet Vol. 9.7 fl (6.2-12.0); Platelet Count 326 K/mm3 (150-450); RBC Distribution Width CV 16.8 % (11.6-14.6); RBC Distribution Width SD 51.6 fl (35.1-43.9); Red Blood Count 4.05 M/mm3 (4.2-5.4); White Blood Count 7.8 K/mm3 (4.4-11.0)
[2023-10-01 09:34] LABS: Anion Gap 9 (5-15); BUN 25 mg/dL (7-18); BUN/Creat Ratio 21.7 RATIO (10-20); Calcium,Total 9.2 mg/dL (8.5-10.1); Chloride 108 mmol/L (98-107); Creatinine, Serum 1.15 mg/dL (0.55-1.02); EST Glomerular Filtration Rate 48 mL/min (>60); Est Glom Filt Rate - Afr Amer 58 mL/min (>60); Glucose 130 mg/dL (74-106); Potassium 4.1 mmol/L (3.5-5.1); Sodium Level 140 mmol/L (136-145)
== END ==
LOC: OLS.WCC 04:00
PROVIDERS: PCP Family Medicine; Referring Provider Family Medicine; Visit Provider Family Medicine
DX: I10 Essential (primary) hypertension (principal); I82.409 Acute embolism and thrombosis of unspecified deep veins of unspecified lower extremity; Z79.899 Other long term (current) drug therapy
CPT/HCPCS: 36415; 80048; 85027

== ENCOUNTER → 2023-12-13 19:12 | Outpatient (REF) | payer MEDICARE, OTHER, SELFPAY | LOC: OLS.WCC 19:12 | PROVIDERS: PCP Family Medicine; Visit Provider Family Medicine | DX: R30.0 Dysuria (principal) | CPT/HCPCS: 87077; 87086; 87088 ==

== ENCOUNTER → 2023-12-31 | Outpatient (REF) | payer MEDICARE, OTHER, SELFPAY ==
[2023-12-31 09:35] LABS: Mean Corp Hgb Conc 31.3 g/dL (32-36); Mean Corpuscular Hgb 27.2 pg (27.0-32.0); Mean Platelet Vol. 9.5 fl (6.2-12.0); Platelet Count 345 K/mm3 (150-450); RBC Distribution Width CV 16.9 % (11.6-14.6); RBC Distribution Width SD 50.2 fl (35.1-43.9); Red Blood Count 3.68 M/mm3 (4.2-5.4); White Blood Count 9.7 K/mm3 (4.4-11.0)
== END ==
LOC: OLS.WCC 05:00
PROVIDERS: PCP Family Medicine; Visit Provider Family Medicine
DX: R53.83 Other fatigue (principal); I10 Essential (primary) hypertension; R78.5 Finding of other psychotropic drug in blood; Z79.899 Other long term (current) drug therapy
CPT/HCPCS: 36415; 85027

== ENCOUNTER 2024-03-22 12:21 | Inpatient (IN) | payer MEDICARE, OTHER, SELFPAY ==
[2024-03-22] VITALS (12 sets, daily range): BP systolic 108–158; BP diastolic 52–67; PULSE 65–79; RESP 16–32; TEMP 36.1–37.2; O2SAT 91–95; BMI 24.7; BMI 23.6
--- NOTE | 2024-03-22 12:37 | EKG12_ITS ---
Test Reason : WEAKNESS, COVID + Blood Pressure : */* mmHG Vent. Rate : 74 BPM Atrial Rate : * BPM P-R Int : * ms QRS Dur : 76 ms QT Int : 410 ms P-R-T Axes : * 39 90 degrees QTcB Int : 455 ms Normal sinus rhythm T wave abnormality, consider anterior ischemia Abnormal ECG Confirmed by NELSON BOGGS, BRENDA ([id number]), newspaper managing editor KARIME SCHMITZ ([id number]) on 03/24/2024 1:55:28 PM Referred By: Confirmed By: BRENDA DAMON MD
--- NOTE | 2024-03-22 12:37 | EX.ED.DYSGE1 ---
HPI <MARY Rothman - Last Filed: 03/22/24 14:50> History of Present Illness Chief Complaint: Shortness of Breath Narrative Narrative: 83-year-old female with PMH of HLD, CVA, A-fib on Eliquis, anemia was sent in from [facility]. She tested positive for COVID yesterday. She has had a fever of 101.1F, increased respiratory distress was found to be 84% on room air. She was given Tylenol at 9:15 AM. She is very weak and taking decreased p.o. intake. PFSH <MARY Rothman - Last Filed: 03/22/24 14:50> [facility] Medical History Depression GI bleed Dementia HTN (hypertension) Esophageal stenosis Angiodysplasia of duodenum Angiodysplasia of stomach Paroxysmal A-fib LAE (left atrial enlargement) Shingles GIB (gastrointestinal bleeding) Stroke/cerebrovascular accident Atrial fibrillation Essential hypertension Polyp of nasal cavity Other chronic sinusitis Wears hearing aid Wears glasses Arthritis Kidney stones Migraine headache History of hiatal hernia Non-smoker Cardiology follow-up encounter Atherosclerosis of coronary artery of [place] heart without angina pectoris Osteoporosis IBS (irritable bowel syndrome) GERD (gastroesophageal reflux disease) Hyperlipidemia Home Medications ?Medication ?Instructions ?Recorded ?Last Taken ?Type acetaminophen 500 mg tablet 1,000 mg (2 x 500 mg) PO Q8 PRN 02/20/22 12/29/22 Rx fever/pain 1-10 #0 tabs metoprolol tartrate 25 mg tablet 25 mg PO BID BP 02/20/22 12/30/22 History menthol 0.44 %-zinc oxide 20.6 % 1 applic topical BID #0 grams 03/09/22 Unknown Rx topical ointment (Calmoseptine) pramipexole 0.125 mg tablet 0.125 mg PO QHS #0 tabs 03/09/22 12/29/22 Rx sennosides 8.6 mg-docusate sodium 1 tab-cap PO DAILY constipation 12/30/22 12/30/22 History 50 mg tablet (2-in-1 Laxative) apixaban 2.5 mg tablet (Eliquis) 2.5 mg PO BID #60 tabs 01/02/23 Unknown Rx atorvastatin 20 mg tablet 20 mg PO QHS 03/22/24 Unknown History dexamethasone 4 mg tablet 4 mg PO Q12H 03/22/24 Unknown History escitalopram oxalate 10 mg tablet 10 mg PO DAILY 03/22/24 Unknown History escitalopram oxalate 5 mg tablet 5 mg PO DAILY 03/22/24 Unknown History mirtazapine 7.5 mg tablet 7.5 mg PO QHS 03/22/24 Unknown History nirmatrelvir 300 mg (150 mg 3 tab PO BID 03/22/24 Unknown History x2)-ritonavir 100 mg tablet,dose pack (Paxlovid) omeprazole 20 mg capsule,delayed 20 mg PO DAILY 03/22/24 Unknown History release oxybutynin chloride 5 mg tablet 5 mg PO DAILY 03/22/24 Unknown History polyethylene glycol 3350 17 17 g PO DAILY 03/22/24 Unknown History gram/dose oral powder (Miralax) Allergy/AdvReac Type Severity Reaction Status Date / Time ranolazine (From Ranexa) AdvReac Severe low urine Verified 12/30/22 16:02 output, rash oseltamivir (From Tamiflu) AdvReac Unknown Verified 12/30/22 16:02 Family History Father CAD (coronary artery disease) CVA (cerebral vascular accident) Hypertension Mother Hypertension Brother Hypertension Sister Diabetes Other Heart disease Surgical History H/O sinus surgery History of tonsillectomy History of cataract surgery History of left heart catheterization (04/16/17) Social History household members: none housing: intermediate Smoking Status: Never smoker alcohol intake: never substance use type: does not use ROS <MARY Rothman - Last Filed: 03/22/24 14:50> ROS ED ROS Narrative Unable to obtain due to mental status EXAM <MARY Rothman - Last Filed: 03/22/24 14:50> Physical Exam Narrative Exam Narrative: CONST: Patient sitting in bed awake appears ill. EYES: Normal inspection. ENT: Normal inspection, dry mucous membranes. NECK: Normal inspection. RESP: No respiratory distress, CTAB. CVS: Regular rate and rhythm, no murmur, no gallop. SKIN: Color normal, no rash, warm, dry, intact. EXTREMITIES: Normal appearance, no pedal edema. NEURO: Alert to self only, follows commands. PSYCH: Normal affect. Const Vital Signs: 03/22/24 12:22 03/22/24 12:56 03/22/24 12:57 Temperature 98.9 F Temperature Source Oral Pulse Rate 79 Respiratory Rate 22 H Respiratory Effort Normal Non-Labored Respiratory Depth Normal Respiratory Pattern Normal Blood Pressure 114/60 Blood Pressure Mean 78 Pulse Ox 92 91 Oxygen Delivery Method Nasal Cannula Nasal Cannula Nasal Cannula Oxygen Flow Rate (L/min) 3 3 3 03/22/24 13:00 03/22/24 14:00 Temperature 98.9 F 98.5 F Temperature Source Oral Oral Pulse Rate 73 79 Respiratory Rate 32 H 22 H Respiratory Effort Respiratory Depth Respiratory Pattern Blood Pressure 117/58 L 119/67 Blood Pressure Mean 77 82 Pulse Ox 92 94 Oxygen Delivery Method Nasal Cannula Nasal Cannula Oxygen Flow Rate (L/min) 3 3 <Dr. Compa Martinez, DO - Last Filed: 03/22/24 19:50> Physical Exam Narrative Exam Narrative: CONST: Patient sitting in bed awake appears ill. EYES: Normal inspection. ENT: Normal inspection, dry mucous membranes. NECK: Normal inspection. RESP: No respiratory distress, CTAB. CVS: Regular rate and rhythm, no murmur, no gallop. SKIN: Color normal, no rash, warm, dry, intact. EXTREMITIES: Normal appearance, no pedal edema. NEURO: Alert to self only, follows commands. Moves all 4 extremities, appears to have sensation all 4 extremities PSYCH: Normal affect. Const Vital Signs: 03/22/24 12:22 03/22/24 12:56 03/22/24 12:57 Temperature 98.9 F Temperature Source Oral Pulse Rate 79 Respiratory Rate 22 H Respiratory Effort Normal Non-Labored Respiratory Depth Normal Respiratory Pattern Normal Blood Pressure 114/60 Blood Pressure Mean 78 Pulse Ox 92 91 Oxygen Delivery Method Nasal Cannula Nasal Cannula Nasal Cannula Oxygen Flow Rate (L/min) 3 3 3 03/22/24 13:00 03/22/24 14:00 Temperature 98.9 F 98.5 F Temperature Source Oral Oral Pulse Rate 73 79 Respiratory Rate 32 H 22 H Respiratory Effort Respiratory Depth Respiratory Pattern Blood Pressure 117/58 L 119/67 Blood Pressure Mean 77 82 Pulse Ox 92 94 Oxygen Delivery Method Nasal Cannula Nasal Cannula Oxygen Flow Rate (L/min) 3 3 MDM <MARY Rothman - Last Filed: 03/22/24 14:50> [facility] MDM Narrative Medical decision making narrative: History gathered from: Patient, family Differential includes but not limited to: COVID-19, pneumonia, electrolyte abnormality, ANTOLIN Consults: Hospitalist 83-year-old female was sent in from intermediate for fever, hypoxia, and tested positive for COVID-19. She appears ill and dehydrated. She is alert to self only. She is 92% on 3 L nasal cannula and otherwise hemodynamically stable. Lungs are clear. Family arrived and states she is confused at baseline and that she has good days and bad days with cognition and this seems more like a bad day. Overall her blood work looks unremarkable with normal white count of 10.8, stable microcytic anemia at 9.8, normal electrolytes and creatinine 1.07. EKG is nonischemic and troponin is 14. Viral swab is positive for COVID and chest x-ray is negative. I ordered a CT scan of her brain since she was alert to self only and family was not initially here to provide history about her baseline. CT shows no acute process. Her urinalysis is concerning for infection with leukocyte esterase and 4+ bacteria but is contaminated. When speaking with the hospitalist for admission she ordered a new straight catheterized urine specimen which will be sent for culture. ED attending interpretation of 1 view chest x-ray shows normal heart size and no acute infiltrate. Lab Data Attestation: I reviewed the patient's lab results. Labs: Laboratory Results - last 24 hr 03/22/24 03/22/24 12:30 14:00 WBC 10.8 RBC 4.05 L Hgb 9.8 L Hct 31.2 L MCV 77.0 L MCH 24.2 L MCHC 31.4 L RDW Std Deviation 48.6 H RDW Coeff of Leif 17.5 H Plt Count 319 MPV 9.5 Immature Gran % (Auto) 0.300 Neut % (Auto) 53.1 Lymph % (Auto) 34.6 Smyth % (Auto) 10.8 H Eos % (Auto) 0.8 Baso % (Auto) 0.4 Absolute Neuts (auto) 5.7 Absolute Lymphs (auto) 3.73 Nucleated RBC % 0 ESR 56 H Sodium 138 Potassium 4.0 Chloride 110 H Carbon Dioxide 23.0 Anion Gap 5 BUN 24 H Creatinine 1.07 H Estim Creat Clear Calc 32.77 Est GFR (MDRD) Af Amer 63 Est GFR (MDRD) Non-Af 52 L BUN/Creatinine Ratio 22.4 H Glucose 122 H Calcium 9.0 Ferritin 14 Total Bilirubin 0.60 Direct Bilirubin 0.07 AST 22 ALT 29 Alkaline Phosphatase 98 Lactate Dehydrogenase 173 Total Creatine Kinase 42 Troponin I High Sens 14 C-React Prot Ext Range 25.70 H B-Natriuretic Peptide 107.7 H Total Protein 7.9 Albumin 3.2 Globulin 4.7 H Urine Color Yellow Urine Clarity Cloudy Urine pH 6.0 Ur Specific [place] 1.020 Urine Protein 15 H Urine Glucose (UA) Normal Urine Ketones Negative Urine Occult Blood 50 H Urine Nitrite Negative Urine Bilirubin Negative Urine Urobilinogen Normal Ur Leukocyte Esterase 100 H Urine RBC 0-5 SEEN Urine WBC 5-10 SEEN Ur Squamous Epith Cells 10-25 SEEN Urine Bacteria 4+ Urine Mucus 0 SEEN Radiography Diagnostic Testing: Clinical Impression(s) from Imaging Studies Chest X-Ray 03/22/24 12:50 IMPRESSION: Moderate hiatal hernia. Mild bibasilar atelectasis. Electronically Signed: Nyasia Hayes MD at 14:27 EST , Brain CT 03/22/24 12:53 IMPRESSION: No acute intracranial process identified. Chronic involutional and white matter changes. Chronic cerebral and cerebellar infarcts. Electronically Signed: Nyasia Hayes MD at 14:17 EST , <Dr. Compa Martinez, DO - Last Filed: 03/22/24 19:50> [facility] MDM Narrative Medical decision making narrative: History gathered from: Patient, family Differential includes but not limited to: COVID-19, pneumonia, electrolyte abnormality, ANTOLIN Consults: Hospitalist 83-year-old female was sent in from intermediate for fever, hypoxia, and tested positive for COVID-19. She appears ill and dehydrated. She is alert to self only. She is 92% on 3 L nasal cannula and otherwise hemodynamically stable. Lungs are clear. Family arrived and states she is confused at baseline and that she has good days and bad days with cognition and this seems more like a bad day. Overall her blood work looks unremarkable with normal white count of 10.8, stable microcytic anemia at 9.8, normal electrolytes and creatinine 1.07. EKG is nonischemic and troponin is 14. Viral swab is positive for COVID and chest x-ray is negative. I ordered a CT scan of her brain since she was alert to self only and family was not initially here to provide history about her baseline. CT shows no acute process. Her urinalysis is concerning for infection with leukocyte esterase and 4+ bacteria but is contaminated. When speaking with the hospitalist for admission she ordered a new straight catheterized urine specimen which will be sent for culture. ED attending interpretation of 1 view chest x-ray shows normal heart size and no acute infiltrate. ED attending note: I evaluated the patient in conjunction with the [facility]. I agree with his/her statements and above findings. I have personally performed a face to face assessment of the patient and have reviewed the [facility] Note. I performed a substantive portion of the visit including all aspects of the following. I personally saw the patient performed chart review, physical exam, reviewed labs, imaging (if obtained), and formulated a treatment and management plan. I have personally reviewed the patient's chest x-ray. Chest x-ray is unremarkable for pulmonary edema, pneumothorax, pneumonia or focal cardiopulmonary abnormality. Will admit secondary to severe COVID and hypoxia This note was generated with [employer] dictation software. It may contain incorrect words, spelling, and punctuation that were not noted in review of the chart prior to signing. Lab Data Labs: Laboratory Results - last 24 hr 03/22/24 03/22/24 12:30 14:00 WBC 10.8 RBC 4.05 L Hgb 9.8 L Hct 31.2 L MCV 77.0 L MCH 24.2 L MCHC 31.4 L RDW Std Deviation 48.6 H RDW Coeff of Leif 17.5 H Plt Count 319 MPV 9.5 Immature Gran % (Auto) 0.300 Neut % (Auto) 53.1 Lymph % (Auto) 34.6 Smyth % (Auto) 10.8 H Eos % (Auto) 0.8 Baso % (Auto) 0.4 Absolute Neuts (auto) 5.7 Absolute Lymphs (auto) 3.73 Nucleated RBC % 0 ESR 56 H Sodium 138 Potassium 4.0 Chloride 110 H Carbon Dioxide 23.0 Anion Gap 5 BUN 24 H Creatinine 1.07 H Estim Creat Clear Calc 32.77 Est GFR (MDRD) Af Amer 63 Est GFR (MDRD) Non-Af 52 L BUN/Creatinine Ratio 22.4 H Glucose 122 H Calcium 9.0 Ferritin 14 Total Bilirubin 0.60 Direct Bilirubin 0.07 AST 22 ALT 29 Alkaline Phosphatase 98 Lactate Dehydrogenase 173 Total Creatine Kinase 42 Troponin I High Sens 14 C-React Prot Ext Range 25.70 H B-Natriuretic Peptide 107.7 H Total Protein 7.9 Albumin 3.2 Globulin 4.7 H Urine Color Yellow Urine Clarity Cloudy Urine pH 6.0 Ur Specific [place] 1.020 Urine Protein 15 H Urine Glucose (UA) Normal Urine Ketones Negative Urine Occult Blood 50 H Urine Nitrite Negative Urine Bilirubin Negative Urine Urobilinogen Normal Ur Leukocyte Esterase 100 H Urine RBC 0-5 SEEN Urine WBC 5-10 SEEN Ur Squamous Epith Cells 10-25 SEEN Urine Bacteria 4+ Urine Mucus 0 SEEN Radiography Diagnostic Testing: Clinical Impression(s) from Imaging Studies Chest X-Ray 03/22/24 12:50 IMPRESSION: Moderate hiatal hernia. Mild bibasilar atelectasis. Electronically Signed: Nyasia Hayes MD at 14:27 EST , Brain CT 03/22/24 12:53 IMPRESSION: No acute intracranial process identified. Chronic involutional and white matter changes. Chronic cerebral and cerebellar infarcts. Electronically Signed: Nyasia Hayes MD at 14:17 EST , <Dr. Compa Martinez, DO - Last Filed: 03/22/24 19:50> Critical Care Time Critical Care Time: Yes Critical care time (excluding procedures): 30-74 minutes, Discussing w/Patient &/or Family/Mechanical Car Checker, Discussing w/Consultants, Arranging Admission or Transfer and Performing Direct Patient Care at Bedside Discharge Plan Dx/Rx/DC Orders Clinical Impression: COVID-19, Acute hypoxemic respiratory failure, Generalized weakness, History of cardioembolic cerebrovascular accident (CVA) Disposition Disposition: Acute Care Hospital [facility] Discharge Date/Time: 03/22/24 15:28
[2024-03-22 12:48] LABS: Absolute Lymphocyte Count 3.73 X10^3/uL (0.83-4.51); Absolute Neutrophil Count 5.7 X10^3/uL (2.0-7.7); Basophil# 0.04 X10^3/uL; Basophil% 0.4 % (0-1); Eosinophil# 0.09 X10^3/uL; Eosinophils% 0.8 % (0-5); Hematocrit 31.2 % (37-47); Hemoglobin 9.8 g/dL (12.0-15.0); Lymphocyte # 3.73 X10^3/ul (0.83-4.51); Lymphocyte % 34.6 % (19-41); Mean Corp Hgb Conc 31.4 g/dL (32-36); Mean Corpuscular Hgb 24.2 pg (27.0-32.0); Mean Platelet Vol. 9.5 fl (6.2-12.0); Monocyte# 1.17 X10^3/uL; Monocyte% 10.8 % (0-10); NRBC Flagged by Analyzer 0 % (0-5); Neutrophil # 5.73 X10^3/uL (2.7-7.7); Neutrophil % 53.1 % (47-70); Platelet Count 319 K/mm3 (150-450); RBC Distribution Width CV 17.5 % (11.6-14.6); RBC Distribution Width SD 48.6 fl (35.1-43.9); Red Blood Count 4.05 M/mm3 (4.2-5.4); White Blood Count 10.8 K/mm3 (4.4-11.0)
--- NOTE | 2024-03-22 12:50 | RAD_ITS ---
HISTORY: cough. TECHNIQUE: XR Chest 1 View. COMPARISON: 01/19/2022. FINDINGS: CARDIOMEDIASTINAL BORDERS: Cardiac silhouette within normal limits in size. Mediastinal contour unchanged with moderate hiatal hernia. Calcification of the aortic knob. LUNGS: Low lung volumes with mild bibasilar atelectasis. PLEURA: No pleural effusion or pneumothorax seen. OSSEOUS STRUCTURES: Unremarkable. RAD/Chest 1 View (Portable) IMPRESSION: Moderate hiatal hernia. Mild bibasilar atelectasis. Electronically Signed: Nyasia Hayes MD at 14:27 EST ,
--- NOTE | 2024-03-22 12:53 | CT_ITS ---
HISTORY: ams, confusion, sob. TECHNIQUE: Multiple axial images were obtained of the head without intravenous contrast. A radiation dose optimization technique was used for this scan. 226 images. COMPARISON: 01/19/2022. FINDINGS: BRAIN PARENCHYMA: Multiple foci and zones of low attenuation in the bilateral cerebral white matter compatible with chronic small vessel ischemic gliosis. Chronic left frontal, right insula/basal ganglia, right temporal, and left cerebellar infarcts. No acute intra-axial hemorrhage identified. CSF SPACES: Volume loss with ex vacuo dilatation of the right lateral ventricle. No midline shift or other significant mass effect. No acute extra-axial hemorrhage seen. OTHER: Intact calvarium. Chronic left posterior ethmoid sinusitis with hyperostosis and mucosal thickening. Sinonasal postoperative change. Bilateral lens resections. CT/Brain/Head without Contrast IMPRESSION: No acute intracranial process identified. Chronic involutional and white matter changes. Chronic cerebral and cerebellar infarcts. Electronically Signed: Nyasia Hayes MD at 14:17 EST ,
[2024-03-22 13:00] LABS: Anion Gap 5 (5-15); BUN 24 mg/dL (7-18); BUN/Creat Ratio 22.4 RATIO (10-20); Chloride 110 mmol/L (98-107); Creatinine, Serum 1.07 mg/dL (0.55-1.02); EST Glomerular Filtration Rate 52 mL/min (>60); Est Glom Filt Rate - Afr Amer 63 mL/min (>60); Estimated Creatinine Clearance 32.77 ml/min; Glucose 122 mg/dL (74-106); Sodium Level 138 mmol/L (136-145); Troponin-I HS 14 pg/mL (3.0-54.0)
[2024-03-22] MEDS: 0.9% Normal Saline (1000mL) 1,000 ML 999 ML IV (13:20)
[2024-03-22 14:06] LABS: Mucous, Urine 0 SEEN /hpf (<or=2+)
[2024-03-22 14:15] LABS: Color, Urine Yellow (Yellow); Glucose, Dipstick Normal (Normal); Ketone-Dipstick Negative (Negative); Leukocyte Esterase-Dipstick 100 /ul (Negative); Nitrite-Dipstick Negative (Negative); Occult Blood-Urine 50 /ul (Negative); Protein-Dipstick 15 mg/dl (Negative); Urine Bilirubin Dipstick Negative (Negative); Urine Clarity Cloudy (Clear); Urine Urobilinogen Normal (Normal)
[2024-03-22 14:22] LABS: Bacteria 4+ /hpf (None Seen); Red Blood Cells-Urine 0-5 SEEN /hpf (0-5); White Blood Cells 5-10 SEEN /hpf (0-5)
[2024-03-22 14:23] LABS: Squamous Epithelial Cells - UA 10-25 SEEN /hpf (5-10)
--- NOTE | 2024-03-22 14:35 | HP.PCM.HOS_ITS ---
HPI - General General Date of Admission: 03/22/24 Date of Service: 03/22/24 Chief Complaint: Cough, dyspnea, hypoxia at SNF, COVID + at SNF. 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 with onset of fever at that time 101.1 with increased respiratory rate and mild distress noted to be hypoxic at 84% on room air administered Tylenol at that time the patient remained very weak with poor oral intake prompting ED evaluation. Workup in the ED included T98.9, heart 79, BP 114/60, respiratory rate 22, 92% on 3 L nasal cannula with most recent repeat vitals T98.5, heart rate 79, BP 119/67, respiratory rate 22, 94% on 3 L nasal cannula, CBC with RBC 10.8, hemoglobin 9.8, MCV 77, platelet 319 without marked shift, BMP with chloride 110, BUN/creatinine 24/1.07, GFR 22, glucose 122, troponin 14, urinalysis with specific gravity 1.020, protein 15, occult blood 50, negative nitrite, leukocyte esterase 100, urine RBC 0-5, urine WBCs 5-10, squamous epithelial cells noted to be 10-25 unfortunately a poor sample with 4+ urine bacteria, requested repeat urinalysis performed as the catheterization with a repeat urine culture from that sample to be cautious, CT brain with no acute intracranial findings with chronic involutional white matter changes with chronic cerebral and cerebellar infarcts noted prior, chest x-ray moderate hiatal hernia with mild bibasilar atelectasis, rapid SARS COVID/influenza/RSV PCR with positive COVID result. As noted repeat catheterized urinalysis and urine culture requested given for sample. In the ED patient history of 1 L normal saline. Family notes that there has been a significant outbreak at the [facility] and several individuals have COVID. From review of records it appears as if she was started on Decadron and Paxlovid but unsure how many doses thus far. [facility] Medical History Depression GI bleed Dementia HTN (hypertension) Esophageal stenosis Angiodysplasia of duodenum Angiodysplasia of stomach Paroxysmal A-fib LAE (left atrial enlargement) Shingles GIB (gastrointestinal bleeding) Stroke/cerebrovascular accident Atrial fibrillation Essential hypertension Polyp of nasal cavity Other chronic sinusitis Wears hearing aid Wears glasses Arthritis Kidney stones Migraine headache History of hiatal hernia Non-smoker Cardiology follow-up encounter Atherosclerosis of coronary artery of [place] heart without angina pectoris Osteoporosis IBS (irritable bowel syndrome) GERD (gastroesophageal reflux disease) Hyperlipidemia Home Medications ?Medication ?Instructions ?Recorded ?Last Taken ?Type acetaminophen 500 mg tablet 1,000 mg (2 x 500 mg) PO Q8 PRN 02/20/22 12/29/22 Rx fever/pain 1-10 #0 tabs metoprolol tartrate 25 mg tablet 25 mg PO BID BP 02/20/22 12/30/22 History menthol 0.44 %-zinc oxide 20.6 % 1 applic topical BID #0 grams 03/09/22 Unknown Rx topical ointment (Calmoseptine) pramipexole 0.125 mg tablet 0.125 mg PO QHS #0 tabs 03/09/22 12/29/22 Rx sennosides 8.6 mg-docusate sodium 1 tab-cap PO DAILY constipation 12/30/22 12/30/22 History 50 mg tablet (2-in-1 Laxative) apixaban 2.5 mg tablet (Eliquis) 2.5 mg PO BID #60 tabs 01/02/23 Unknown Rx atorvastatin 20 mg tablet 20 mg PO QHS 03/22/24 Unknown History dexamethasone 4 mg tablet 4 mg PO Q12H 03/22/24 Unknown History escitalopram oxalate 10 mg tablet 10 mg PO DAILY 03/22/24 Unknown History escitalopram oxalate 5 mg tablet 5 mg PO DAILY 03/22/24 Unknown History mirtazapine 7.5 mg tablet 7.5 mg PO QHS 03/22/24 Unknown History nirmatrelvir 300 mg (150 mg 3 tab PO BID 03/22/24 Unknown History x2)-ritonavir 100 mg tablet,dose pack (Paxlovid) omeprazole 20 mg capsule,delayed 20 mg PO DAILY 03/22/24 Unknown History release oxybutynin chloride 5 mg tablet 5 mg PO DAILY 03/22/24 Unknown History polyethylene glycol 3350 17 17 g PO DAILY 03/22/24 Unknown History gram/dose oral powder (Miralax) Allergy/AdvReac Type Severity Reaction Status Date / Time ranolazine (From Ranexa) AdvReac Severe low urine Verified 12/30/22 16:02 output, rash oseltamivir (From Tamiflu) AdvReac Unknown Verified 12/30/22 16:02 Family History Father CAD (coronary artery disease) CVA (cerebral vascular accident) Hypertension Mother Hypertension Brother Hypertension Sister Diabetes Other Heart disease Surgical History H/O sinus surgery History of tonsillectomy History of cataract surgery History of left heart catheterization (04/16/17) Social History household members: none housing: senior care Smoking Status: Never smoker alcohol intake: never substance use type: does not use ROS ROS Narrative Admission Review of Systems: CONSTITUTIONAL: No weight loss, + fever, chills, weakness or fatigue. HEENT: + Mild congestion. Eyes: No visual loss, blurred vision, double vision or yellow sclerae. Ears, Nose, Throat: No hearing loss, sneezing. SKIN: No rash or itching, lesions, wounds. CARDIOVASCULAR: No chest pain, chest pressure or chest discomfort, palpitations, edema, orthopnea, syncopal events. RESPIRATORY: + shortness of breath, cough, No marked sputum, wheezing, hemoptysis. GASTROINTESTINAL: + anorexia. No nausea, vomiting, diarrhea, abdominal pain, melena, BRBPR. GENITOURINARY: No dysuria, frequency, urgency or retention. NEUROLOGICAL: No dizziness, syncope, paralysis, ataxia, numbness or tingling in the extremities, focal weakness, change in bowel or bladder control, seizure. MUSCULOSKELETAL: + muscle, back pain, joint pain or stiffness. HEMATOLOGIC: + Chronic anemia, easy bleeding/bruising. LYMPHATICS: No enlarged nodes. No history of splenectomy. PSYCHIATRIC: + History of anxiety and depression. ENDOCRINOLOGIC: No reports of sweating, cold or heat intolerance. No polyuria or polydipsia. ALLERGIES: No history of asthma, hives, eczema or rhinitis. Vital Signs Vital Signs Vital Signs: 03/22/24 12:22 03/22/24 12:56 03/22/24 12:57 Temperature 98.9 F Temperature Source Oral Pulse Rate 79 Respiratory Rate 22 H Respiratory Effort Normal Non-Labored Respiratory Depth Normal Respiratory Pattern Normal Blood Pressure 114/60 Blood Pressure Mean 78 Pulse Ox 92 91 Oxygen Delivery Method Nasal Cannula Nasal Cannula Nasal Cannula Oxygen Flow Rate (L/min) 3 3 3 03/22/24 13:00 03/22/24 14:00 Temperature 98.9 F 98.5 F Temperature Source Oral Oral Pulse Rate 73 79 Respiratory Rate 32 H 22 H Respiratory Effort Respiratory Depth Respiratory Pattern Blood Pressure 117/58 L 119/67 Blood Pressure Mean 77 82 Pulse Ox 92 94 Oxygen Delivery Method Nasal Cannula Nasal Cannula Oxygen Flow Rate (L/min) 3 3 Weight Weight: 126 lb 15.78 oz Body Mass Index (BMI) 24.7 Physical Exam Narrative Physical Examination: General: Awake, alert, oriented x 3 and cooperative, seated upright in the ED bed, fatigued and ill-appearing, mildly increased respiratory rate but no marked distress, did become anxious transiently when she had difficulty clearing her throat. Skin: Normal color, normal turgor, no icterus, no cyanosis except occasional stage ecchymoses, abrasion. HEENT: AT/NC, EOMI, PERRLA, moderately dry MM, no carotid bruits or JVD noted. Lungs: Diffusely diminished, greater bases, mildly increased respiratory rate but no distress evident, no rales, ronchi or wheezing. Heart: Currently regular rate with regular rhythm; no gallop, rub audible. Abdomen: Soft, NTTP, nondistended, mildly hyperactive BS, no discerned HSM. Extremities: No cyanosis, clubbing, or edema. Neurological: Patient awake, alert, oriented as noted, cognitive function decreased baseline with underlying cognitive impairments, may be mildly more confused than baseline per family report, pupils equally reactive to light and accommodation, cranial nerves grossly normal, moving all 4 extremities, no focal deficits, strength severely global decrease secondary to acute presentation. Psychiatric: Affect appears fatigued, ill-appearing, no acute evidence of depressive or anxiety feelings. Results Lab / Micro Data 03/22/24 12:30 03/22/24 12:30 Labs: Laboratory Results - last 24 hr 03/22/24 12:30: WBC 10.8, RBC 4.05 L, Hgb 9.8 L, Hct 31.2 L, MCV 77.0 L, MCH 24.2 L, MCHC 31.4 L, RDW Std Deviation 48.6 H, RDW Coeff of Leif 17.5 H, Plt Count 319, MPV 9.5, Immature Gran % (Auto) 0.300, Neut % (Auto) 53.1, Lymph % (Auto) 34.6, [place] % (Auto) 10.8 H, Eos % (Auto) 0.8, Baso % (Auto) 0.4, Absolute Neuts (auto) 5.7, Absolute Lymphs (auto) 3.73, Nucleated RBC % 0, Sodium 138, Potassium 4.0, Chloride 110 H, Carbon Dioxide 23.0, Anion Gap 5, BUN 24 H, C reatinine 1.07 H, Estim Creat Clear Calc 32.77, Est GFR (MDRD) Af Amer 63, Est GFR (MDRD) Non-Af 52 L, BUN/Creatinine Ratio 22.4 H, Glucose 122 H, Calcium 9.0, Troponin I High Sens 14 03/22/24 14:00: Urine Color Yellow, Urine Clarity Cloudy, Urine pH 6.0, Ur Specific [place] 1.020, Urine Protein 15 H, Urine Glucose (UA) Normal, Urine Ketones Negative, Urine Occult Blood 50 H, Urine Nitrite Negative, Urine Bilirubin Negative, Urine Urobilinogen Normal, Ur Leukocyte Esterase 100 H, Urine RBC 0-5 SEEN, Urine WBC 5-10 SEEN, Ur Squamous Epith Cells 10-25 SEEN, Urine Bacteria 4+, Urine Mucus 0 SEEN Micro: Microbiology 03/22/24 12:50 Mucosa - Nose SARS-CoV-2, Influenza & RSV (PCR) - Final SARS-CoV-2 (COVID 19 PCR) Imaging Radiology Impression Chest X-Ray 03/22/24 12:50 IMPRESSION: Moderate hiatal hernia. Mild bibasilar atelectasis. Electronically Signed: Nyasia Hayes MD at 14:27 EST , Brain CT 03/22/24 12:53 IMPRESSION: No acute intracranial process identified. Chronic involutional and white matter changes. Chronic cerebral and cerebellar infarcts. 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 stage III unclear subtype, HTN, HLD, chronic dysphagia with history of esophageal stenosis, GERD w/ Hx GI bleed with angiodysplasia of the stomach and duodenum, Hx CVA, PAF, RLS, Anxiety and Depression, Chronic migraine headaches, IBS, Chronic normocytic anemia/Fe deficiency anemia who presents to the [facility] ED on 03/22/24 with history of recent [place] [facility] [place] of fever at that time 101.1 with increased respiratory rate and mild distress noted to be hypoxic at 84% on room air administered Tylenol at that time the patient remained very weak with poor oral intake prompting ED evaluation. #1. Acute Hypoxia (presentation not consistent with acute hypoxic respiratory failure noted in the ED note) secondary to Acute Viral Syndrome, COVID-19 with significant debility, adult failure to thrive complicated by underlying medical history as noted below: Will admit to the [facility], maintain on COVID precautions, will maintain on oxygen with wean as tolerated to room air, PRN albuterol, HOB, IS parameters w/ requested COVID panel including D-dimer, procalcitonin, CRP, CPK, Ferritin, LDH, liver profile and BNP, continue supportive care including q 2 hour turning including prone given no prone bed availability and judicious hydration, closely monitor for worsening status for ARDS and multiorgan failure, will initiate and continue IV decadron x 10 doses, given presentation will also initiate IV remdesivir but defer to discretion of Infectious disease. PT/OT/case management consulted for discharge planning. #2. Questionable acute complicated urinary tract infection: Urinalysis in the ED unfortunately poor sample but concerning, requested repeat urinalysis to be catheterized with urine culture sent from that and if this appears consistent with urinary tract infection will initiate and continue on IV Rocephin with transition as able pending sensitivities and speciation. #3. Chronic anemia, currently appears microcytic, normocytic previously/iron deficiency anemia: Admission hemoglobin 9.8, MCV 77, baseline hemoglobin most recently prior 10 range but has fluctuated, we will continue to trend CBC. #4. Chronic Kidney Disease Stage III, unclear subtype per GFR trending but has vacillated and was previously stage II with GFR in the low 60 range however this was earlier in 2023 thus uncertain if mild renal insufficiency versus progressing disease: Admission BUN/Cr 24/1.07, GFR 52, baseline renal function 0.8-1.1, repeat BMP in AM. #5. Mild hyperglycemia, likely stress response: Admission glucose 122, no diabetic history, continue to monitor, may further assess as needed. #6. Chronic memory impairment/possible underlying dementia unclear type with unclear behavioral disturbance history: Complicates presentation, will maintain on fall and aspiration precautions, PT/OT/case management consulted for discharge planning. #7. Hx CVA: Patient with cerebral infarction involving the middle cerebral artery territory with associated left-sided weakness as well as aphasia and facial droop, CT of the head with noted chronic involutional white matter changes with chronic cerebral and cerebellar infarcts, will continue Eliquis, statin, hypertensive regimen as noted, no diabetic history. #8. PAF: We will continue home metoprolol and Eliquis regimen. #9. Anxiety and depression: We will continue patient home escitalopram regimen, also noted to be on mirtazapine, clarifying. #10. Restless leg syndrome: We will continue patient home pramipexole regimen. #11. Hypertension: Continue home metoprolol regimen with hold parameters as needed, PRN hydralazine. #12. Hyperlipidemia: We will continue patient on statin therapy. #13. Chronic migraine headaches: Not on any chronic preventative medication, encouraged outpatient follow-up as previously arranged. #14. GERD: Will continue home PPI. #15. DVT prophylaxis: Continue home Eliquis regimen. #16. CODE status: DNR-CC per facility paperwork and confirmed with family at healthcare power of privacy attorney are her daughters and living will is in place with ongoing CODE STATUS preference comfort care but family requests and is amenable to treatment of this acute illness with medications, hydration if necessary but no aggressive interventions or measures. Advanced Care Planning Face to Face Time: 16 minutes. Charges/Coding Visit Charges Inpatient E&M: 98617 Init Hosp L3 Procedures Hospitalists Procedures: 52320 Advncd Care Plan 30 Min
[2024-03-22 15:53] LABS: AST(SGOT) 22 U/L (15-37); Alanine Aminotransfer ALT/SGPT 29 U/L (13-56); Albumin, Serum 3.2 g/dL (3.2-5.0); Alkaline Phosphatase 98 U/L (45-117); Bilirubin, Direct 0.07 mg/dL (0.00-0.30); CPK Total, Creatine Kinase 42 U/L (26-192); Ferritin 14 ng/mL (8-252); Globulin 4.7 g/dL (2.2-4.2); LDH 173 U/L (84-246); Protein, Total 7.9 g/dL (6.4-8.2)
[2024-03-22 16:04] LABS: Erythrocyte Sedimentation Rate 56 mm/hr (0-30)
[2024-03-22 16:23] LABS: BNP,B-Type NATRIURETIC PEPTIDE 107.7 pg/mL (0-100)
[2024-03-22] MEDS: 0.9% Normal Saline (1000mL) 1,000 ML 75 ML IV (16:39)
[2024-03-22] MEDS: dexAMETHasone 4 MG/ML Vial 6 MG IV (16:40)
[2024-03-22] MEDS: Remdesivir 200 MG in 0.9% Normal Saline (250mL Bag) 210 ML 250 MG IV (16:42)
[2024-03-22] MEDS: Menthol/Lanolin/Calamine/Znox 113 GM Tube 1 APPLIC TOPICAL ×2 (16:43→20:50)
[2024-03-22 16:57] LABS: D-Dimer Quantitative (DVT/PE) 0.37 FEU/ug/m (0.27-0.49)
[2024-03-22 17:00] LABS: Procalcitonin 0.11 ng/mL (0.00-0.09)
[2024-03-22] MEDS: Pramipexole Di-HCl 0.125 MG Tablet PO (20:48)
[2024-03-22] MEDS: APIXABAN 2.5 MG TABLET (WCH) PO (20:48)
[2024-03-22] MEDS: Metoprolol Tartrate 25 MG Tablet PO (20:49)
[2024-03-22] MEDS: Atorvastatin Calcium 20 MG Tablet PO (20:49)
[2024-03-22] MEDS: Mirtazapine 15 MG Tablet 7.5 MG PO (20:50)
[2024-03-22] MEDS: Nystatin Powder 15gm Bottle 1 APPLIC TOPICAL (20:50)
[2024-03-23] VITALS (8 sets, daily range): BP systolic 126–148; BP diastolic 47–70; PULSE 53–65; RESP 16–20; TEMP 36.1–37.2; O2SAT 94–97; BMI 24.3
[2024-03-23 04:06] LABS: Absolute Lymphocyte Count 2.22 X10^3/uL (0.83-4.51); Absolute Neutrophil Count 6.4 X10^3/uL (2.0-7.7); Basophil# 0.02 X10^3/uL; Basophil% 0.2 % (0-1); Hematocrit 32.8 % (37-47); Hemoglobin 9.7 g/dL (12.0-15.0); Lymphocyte # 2.22 X10^3/ul (0.83-4.51); Lymphocyte % 25.1 % (19-41); Mean Corp Hgb Conc 29.6 g/dL (32-36); Mean Corpuscular Hgb 23.7 pg (27.0-32.0); Mean Corpuscular Volume 80.2 fL (81-99); Mean Platelet Vol. 9.6 fl (6.2-12.0); Monocyte# 0.17 X10^3/uL; Monocyte% 1.9 % (0-10); NRBC Flagged by Analyzer 0 % (0-5); Neutrophil # 6.41 X10^3/uL (2.7-7.7); Neutrophil % 72.3 % (47-70); Platelet Count 282 K/mm3 (150-450); RBC Distribution Width CV 17.6 % (11.6-14.6); RBC Distribution Width SD 50.8 fl (35.1-43.9); Red Blood Count 4.09 M/mm3 (4.2-5.4); White Blood Count 8.9 K/mm3 (4.4-11.0)
[2024-03-23 04:25] LABS: ALB/GLOB Ratio 0.6 RATIO (0.9-2.4); AST(SGOT) 23 U/L (15-37); Alanine Aminotransfer ALT/SGPT 26 U/L (13-56); Albumin, Serum 2.8 g/dL (3.2-5.0); Alkaline Phosphatase 93 U/L (45-117); Anion Gap 4 (5-15); BUN 22 mg/dL (7-18); BUN/Creat Ratio 26.3 RATIO (10-20); Calcium,Total 8.4 mg/dL (8.5-10.1); Chloride 114 mmol/L (98-107); Creatinine, Serum 0.84 mg/dL (0.55-1.02); EST Glomerular Filtration Rate 69 mL/min (>60); Est Glom Filt Rate - Afr Amer 84 mL/min (>60); Estimated Creatinine Clearance 40.83 ml/min; Globulin 4.6 g/dL (2.2-4.2); Glucose 167 mg/dL (74-106); Potassium 4.2 mmol/L (3.5-5.1); Protein, Total 7.4 g/dL (6.4-8.2); Sodium Level 140 mmol/L (136-145)
--- NOTE | 2024-03-23 09:16 | PCM.PN.HOSP ---
Reason for Visit Reason for Visit: Diagnoses Hypoxemia (03/22/24) COVID-19 (03/22/24) Subjective Subjective Patient was seen and examined today, she does not appear to be in any distress. She is on 3 L of nasal cannula oxygen. She exhibits some confusion but is not agitated. Objective Data Objective Data Vital Signs: Vital Signs Temp Pulse Resp BP Pulse Ox O2 Del Method O2 Flow Rate 97.4 F L 58 L 20 H 148/70 H 94 Nasal Cannula 3 03/23/24 03:21 03/23/24 03:21 03/23/24 03:21 03/23/24 03:21 03/23/24 07:51 03/23/24 07:51 03/23/24 07:51 Oxygen Flow Rate (L/min) 3 Oxygen Delivery Method Nasal Cannula Weight: 56.2 kg Body Mass Index (BMI) 24.3 Intake & Output: Intake and Output for Last 24 Hours 03/21/24 03/22/24 03/23/24 23:59 23:59 23:59 Intake Total 1556.25 / 1556.25 100 / 100 Output Total 650 / 650 Balance 1556.25 / 1556.25 -550 / -550 Lab / Micro Data 03/23/24 03:25 03/23/24 03:25 Labs: Laboratory Results - last 24 hr 03/22/24 12:30: WBC 10.8, RBC 4.05 L, Hgb 9.8 L, Hct 31.2 L, MCV 77.0 L, MCH 24.2 L, MCHC 31.4 L, RDW Std Deviation 48.6 H, RDW Coeff of Leif 17.5 H, Plt Count 319, MPV 9.5, Immature Gran % (Auto) 0.300, Neut % (Auto) 53.1, Lymph % (Auto) 34.6, [place] % (Auto) 10.8 H, Eos % (Auto) 0.8, Baso % (Auto) 0.4, Absolute Neuts (auto) 5.7, Absolute Lymphs (auto) 3.73, Nucleated RBC % 0, ESR 56 H, Sodium 138, Potassium 4.0, Chloride 110 H, Carbon Dioxide 23.0, Anion Gap 5, BUN 24 H, Creatinine 1.07 H, Estim Creat Clear Calc 32.77, Est GFR (MDRD) Af Amer 63, Est GFR (MDRD) Non-Af 52 L, BUN/Creatinine Ratio 22.4 H, Glucose 122 H, Calcium 9.0, Ferritin 14, Total Bilirubin 0.60, Direct Bilirubin 0.07, AST 22, ALT 29, Alkaline Phosphatase 98, Lactate Dehydrogenase 173, Total Creatine Kinase 42, Troponin I High Sens 14, C-React Prot Ext Range 25.70 H, Total Protein 7.9, Albumin 3.2, Globulin 4.7 H 03/22/24 14:00: B-Natriuretic Peptide 107.7 H, Urine Color Yellow, Urine Clarity Cloudy, Urine pH 6.0, Ur Specific [place] 1.020, Urine Protein 15 H, Urine Glucose (UA) Normal, Urine Ketones Negative, Urine Occult Blood 50 H, Urine Nitrite Negative, Urine Bilirubin Negative, Urine Urobilinogen Normal, Ur Leukocyte Esterase 100 H, Urine RBC 0-5 SEEN, Urine WBC 5-10 SEEN, Ur Squamous Epith Cells 10-25 SEEN, Urine Bacteria 4+, Urine Mucus 0 SEEN 03/22/24 16:08: Procalcitonin 0.11 H 03/22/24 : D-Dimer Quant (PE/DVT) 0.37 03/23/24 03:25: WBC 8.9, RBC 4.09 L, Hgb 9.7 L, Hct 32.8 L, MCV 80.2 L, MCH 23.7 L, MCHC 29.6 L D, RDW Std Deviation 50.8 H, RDW Coeff of Leif 17.6 H, Plt Count 282, MPV 9.6, Immature Gran % (Auto) 0.500, Neut % (Auto) 72.3 H, Lymph % (Auto) 25.1, [place] % (Auto) 1.9, Eos % (Auto) 0.0, Baso % (Auto) 0.2, Absolute Neuts (auto) 6.4, Absolute Lymphs (auto) 2.22, Nucleated RBC % 0, Sodium 140, Potassium 4.2, Chloride 114 H, Carbon Dioxide 21.0, Anion Gap 4 L, BUN 22 H, Creatinine 0.84, Estim Creat Clear Calc 40.83, Est GFR (MDRD) Af Amer 84, Est GFR (MDRD) Non-Af 69, BUN/Creatinine Ratio 26.3 H, Glucose 167 H, Calcium 8.4 L, Total Bilirubin 0.30, AST 23, ALT 26, Alkaline Phosphatase 93, Total Protein 7.4, Albumin 2.8 L, Globulin 4.6 H, Albumin/Globulin Ratio 0.6 L Micro: Microbiology 03/22/24 12:50 Mucosa - Nose SARS-CoV-2, Influenza & RSV (PCR) - Final SARS-CoV-2 (COVID 19 PCR) Radiography Diagnostic Testing: Radiology Impression Chest X-Ray 03/22/24 12:50 IMPRESSION: Moderate hiatal hernia. Mild bibasilar atelectasis. Electronically Signed: Nyasia Hayes MD at 14:27 EST Reading Location ID and State: [facility] / [place] Tel , Service support , Brain CT 03/22/24 12:53 IMPRESSION: No acute intracranial process identified. Chronic involutional and white matter changes. Chronic cerebral and cerebellar infarcts. Electronically Signed: Nyasia Hayes MD at 14:17 EST Reading Location ID and State: [facility] / [place] Tel , Service support , Physical Exam Const alert, no apparent distress and average body habitus Constitutional Narrative: Patient is mildly confused General Appearance: cooperative, well kempt and well developed Orientation / Consciousness: awake, oriented to person and confused HEENT normocephalic, head/scalp atraumatic and moist oral mucous membranes Eyes PERRL, EOMs intact bilaterally and conjunctivae normal Neck supple, no JVD and thyroid normal General: trachea midline Resp normal respiratory effort, no retractions, no use of accessory muscles and clear to auscultation bilaterally Auscultation: Negative for rales, rhonchi or wheezes Cardio regular rate, regular rhythm, S1 normal heart sound, S2 normal heart sound, no murmurs, no rub and no gallops GI normal to inspection, nondistended, normoactive bowel sounds, soft to palpation, non-tender and non-distended Extremity no clubbing, cyanosis or edema Skin no rashes or lesions noted General Skin Exam: no breakdown Neuro CN's II-XII intact bilaterally, no focal motor deficits and no sensory deficits noted Sensorium / Orientation: awake and alert Speech: speech normal Psych Psych Narrative: Patient exhibits mild confusion Assessment & Plan Assessment/Plan (1) COVID-19: PLAN: Plan 1. COVID-19 infection with hypoxia-patient will remain on remdesivir and dexamethasone, she does not appear in any respiratory distress on nasal cannula oxygen #2 hypoxia secondary to COVID-19 infection-pulse ox will be monitored, oxygen will be weaned if possible #3 generalized weakness secondary to COVID-19 infection-PT and OT will see the patient, she currently resides in a nursing facility #4 acute cystitis-patient's UA showed white blood cells and bacteria, I have elected to place the patient on oral antibiotics for now, culture pending #5 cerebrovascular disease-complicates care, management, recovery, and prognosis #6 dementia-complicates care, management, recovery, and prognosis #7 paroxysmal atrial fibrillation-patient is currently on Eliquis and metoprolol Total clinical time spent by myself addressing the patient's medical issues, reviewing all of her data, and collaborating with patient's care team: 35 minutes Charges/Coding Visit Charges Inpatient E&M: 23138 Subs Hosp L2
[2024-03-23] MEDS: Nystatin Powder 15gm Bottle 1 APPLIC TOPICAL ×2 (10:01→22:05)
[2024-03-23] MEDS: Acetaminophen 325 MG Tablet 650 MG PO (10:01)
[2024-03-23] MEDS: Menthol/Lanolin/Calamine/Znox 113 GM Tube 1 APPLIC TOPICAL ×4 (10:01→22:05)
[2024-03-23] MEDS: Cephalexin 500 MG Capsule PO ×2 (10:02→22:06)
[2024-03-23] MEDS: Metoprolol Tartrate 25 MG Tablet PO (10:02)
[2024-03-23] MEDS: guaiFENesin 10 ML UDC (200MG/10ML) 20 ML PO (10:02)
[2024-03-23] MEDS: Pantoprazole Sodium 20 MG Tablet PO (10:03)
[2024-03-23] MEDS: Senna/Docusate Sodium 1 Tablet PO (10:03)
[2024-03-23] MEDS: Escitalopram Oxalate 10 MG Tablet 5 MG PO (10:03)
[2024-03-23] MEDS: Escitalopram Oxalate 10 MG Tablet PO (10:03)
[2024-03-23] MEDS: 0.9% Saline Lock 10 ML Syringe IV (10:04)
[2024-03-23] MEDS: Polyethylene Glycol 3350 17 GM PACKET PO (10:04)
[2024-03-23] MEDS: APIXABAN 2.5 MG TABLET (WCH) PO ×2 (10:04→22:06)
[2024-03-23] MEDS: dexAMETHasone 4 MG/ML Vial 6 MG IV (10:04)
[2024-03-23] MEDS: Oxybutynin 5 MG Tablet PO (10:07)
[2024-03-23] MEDS: Remdesivir 100 MG in 0.9% Normal Saline (250mL Bag) 230 ML 250 MG IV (10:08)
[2024-03-23] MEDS: Atorvastatin Calcium 20 MG Tablet PO (22:06)
[2024-03-23] MEDS: Pramipexole Di-HCl 0.125 MG Tablet PO (22:06)
[2024-03-23] MEDS: Mirtazapine 15 MG Tablet 7.5 MG PO (22:06)
[2024-03-24] VITALS (11 sets, daily range): BP systolic 138–165; BP diastolic 51–63; PULSE 50–55; RESP 18–20; TEMP 35.8–36.4; O2SAT 92–98; BMI 24.1
[2024-03-24] MEDS: APIXABAN 2.5 MG TABLET (WCH) PO ×2 (09:56→22:46)
[2024-03-24] MEDS: Escitalopram Oxalate 10 MG Tablet 5 MG PO (09:56)
[2024-03-24] MEDS: Polyethylene Glycol 3350 17 GM PACKET PO (09:56)
[2024-03-24] MEDS: guaiFENesin 10 ML UDC (200MG/10ML) 20 ML PO (09:56)
[2024-03-24] MEDS: Senna/Docusate Sodium 1 Tablet PO (09:57)
[2024-03-24] MEDS: dexAMETHasone 4 MG/ML Vial 6 MG IV (09:57)
[2024-03-24] MEDS: Oxybutynin 5 MG Tablet PO (09:57)
[2024-03-24] MEDS: Acetaminophen 325 MG Tablet 650 MG PO (09:57)
[2024-03-24] MEDS: Pantoprazole Sodium 20 MG Tablet PO (09:57)
[2024-03-24] MEDS: Escitalopram Oxalate 10 MG Tablet PO (09:57)
[2024-03-24] MEDS: Cephalexin 500 MG Capsule PO (09:57)
[2024-03-24] MEDS: 0.9% Saline Lock 10 ML Syringe IV (09:58)
[2024-03-24] MEDS: Remdesivir 100 MG in 0.9% Normal Saline (250mL Bag) 230 ML 250 MG IV (09:58)
[2024-03-24] MEDS: Nystatin Powder 15gm Bottle 1 APPLIC TOPICAL ×2 (09:59→22:47)
[2024-03-24] MEDS: Menthol/Lanolin/Calamine/Znox 113 GM Tube 1 APPLIC TOPICAL ×2 (09:59→22:47)
--- NOTE | 2024-03-24 13:59 | CASEMGMT ---
Addendum entered by Haley Gonzales 03/24/24 14:49: ADEBAYO spoke with Yue who reports that the plan is to return to [facility] at discharge. Plan: [facility]; intermediate level of care OMAR Wagner Original Note: Social Work- ADEBAYO called radha Turner dtr, to discuss preferences at d/c. Pt is from [facility] private pay detention. Pt is oriented to self only. FORREST advised. ADEBAYO remains available to follow. OMAR Wagner
--- NOTE | 2024-03-24 14:39 | CASEMGMT ---
Addendum entered by Vania Dexter 03/25/24 11:17: Updates sent to [facility] with note that pt will likely dc tomorrow. Vania Dexter DC Planning Asst. Original Note: Discharge Planning Updates sent to [facility]. Vania Dexter DC Planning Asst.
--- NOTE | 2024-03-24 18:35 | PCM.PN.HOSP ---
Reason for Visit Reason for Visit: Diagnoses Hypoxemia (03/22/24) COVID-19 (03/22/24) Subjective Subjective Patient was seen and examined today, she is still on 2 L of oxygen via nasal cannula, her family was in the room at the time my exam, they state that the patient is long-term at her nursing facility. Objective Data Objective Data Vital Signs: Vital Signs Temp Pulse Resp BP Pulse Ox O2 Del Method O2 Flow Rate 96.9 F L 54 L 18 138/51 H 94 Nasal Cannula 2 03/24/24 14:38 03/24/24 14:38 03/24/24 14:38 03/24/24 14:38 03/24/24 14:38 03/24/24 14:38 03/24/24 14:38 Oxygen Flow Rate (L/min) 2 Oxygen Delivery Method Nasal Cannula Weight: 55.8 kg Body Mass Index (BMI) 24.1 Intake & Output: Intake and Output for Last 24 Hours 03/22/24 03/23/24 03/24/24 23:59 23:59 23:59 Intake Total 1556.25 / 1556.25 2443.75 / 2443.75 650 / 650 Output Total 1800 / 1800 850 / 850 Balance 1556.25 / 1556.25 643.75 / 643.75 -200 / -200 Lab / Micro Data 03/23/24 03:25 03/23/24 03:25 Micro: Microbiology 03/22/24 14:00 Urine Catheter - Catheter Urine Culture - Preliminary Enterococcus faecalis Alpha hemolytic organism 03/22/24 12:50 Mucosa - Nose SARS-CoV-2, Influenza & RSV (PCR) - Final SARS-CoV-2 (COVID 19 PCR) Physical Exam Narrative alert, no apparent distress and average body habitus Constitutional Narrative: Patient is mildly confused General Appearance: cooperative, well kempt and well developed Orientation / Consciousness: awake, oriented to person and confused HEENT normocephalic, head/scalp atraumatic and moist oral mucous membranes Eyes PERRL, EOMs intact bilaterally and conjunctivae normal Neck supple, no JVD and thyroid normal General: trachea midline Resp normal respiratory effort, no retractions, no use of accessory muscles and clear to auscultation bilaterally Auscultation: Negative for rales, rhonchi or wheezes Cardio regular rate, regular rhythm, S1 normal heart sound, S2 normal heart sound, no murmurs, no rub and no gallops GI normal to inspection, nondistended, normoactive bowel sounds, soft to palpation, non-tender and non-distended Extremity no clubbing, cyanosis or edema Skin no rashes or lesions noted General Skin Exam: no breakdown Neuro CN's II-XII intact bilaterally, no focal motor deficits and no sensory deficits noted Sensorium / Orientation: awake and alert Speech: speech normal Psych Psych Narrative: Patient exhibits mild confusion Assessment & Plan Assessment/Plan (1) COVID-19: PLAN: Plan 1. COVID-19 infection with hypoxia-patient will remain on remdesivir and dexamethasone, she does not appear in any respiratory distress on nasal cannula oxygen #2 hypoxia secondary to COVID-19 infection-pulse ox will be monitored, oxygen will be weaned if possible #3 generalized weakness secondary to COVID-19 infection-PT and OT will see the patient, she currently resides in a nursing facility #4 acute cystitis-patient's UA showed white blood cells and bacteria, culture shows Enterococcus faecalis and alphahemolytic organism, I will change the patient to Augmentin 875 mg twice a day with food #5 cerebrovascular disease-complicates care, management, recovery, and prognosis #6 dementia-complicates care, management, recovery, and prognosis #7 paroxysmal atrial fibrillation-patient is currently on Eliquis and metoprolol Total clinical time spent by myself addressing the patient's medical issues, reviewing all of her data, and collaborating with patient's care team: 35 minutes Charges/Coding Visit Charges Inpatient E&M: 32952 Subs Hosp L2
[2024-03-24] MEDS: Metoprolol Tartrate 25 MG Tablet PO (22:46)
[2024-03-24] MEDS: Amox/Clavulanate 875 MG Tablet PO (22:46)
[2024-03-24] MEDS: Mirtazapine 15 MG Tablet 7.5 MG PO (22:46)
[2024-03-24] MEDS: Atorvastatin Calcium 20 MG Tablet PO (22:47)
[2024-03-24] MEDS: Pramipexole Di-HCl 0.125 MG Tablet PO (22:47)
[2024-03-25] VITALS (8 sets, daily range): BP systolic 137–159; BP diastolic 56–81; PULSE 52–67; RESP 18–20; TEMP 35.8–36.7; O2SAT 94–97; BMI 24.5
[2024-03-25] MEDS: Acetaminophen 325 MG Tablet 650 MG PO ×3 (05:40→17:24)
[2024-03-25] MEDS: guaiFENesin 10 ML UDC (200MG/10ML) 20 ML PO (05:40)
[2024-03-25] MEDS: Amox/Clavulanate 875 MG Tablet PO ×2 (07:52→17:24)
[2024-03-25] MEDS: Remdesivir 100 MG in 0.9% Normal Saline (250mL Bag) 230 ML 250 MG IV (10:51)
[2024-03-25] MEDS: 0.9% Saline Lock 10 ML Syringe IV ×2 (10:51→14:42)
[2024-03-25] MEDS: Escitalopram Oxalate 10 MG Tablet PO (10:52)
[2024-03-25] MEDS: APIXABAN 2.5 MG TABLET (WCH) PO ×2 (10:53→22:59)
[2024-03-25] MEDS: Oxybutynin 5 MG Tablet PO (10:53)
[2024-03-25] MEDS: dexAMETHasone 4 MG/ML Vial 6 MG IV (10:53)
[2024-03-25] MEDS: Escitalopram Oxalate 10 MG Tablet 5 MG PO (10:53)
[2024-03-25] MEDS: Pantoprazole Sodium 20 MG Tablet PO (10:56)
[2024-03-25] MEDS: Nystatin Powder 15gm Bottle 1 APPLIC TOPICAL ×2 (10:56→22:58)
[2024-03-25] MEDS: Menthol/Lanolin/Calamine/Znox 113 GM Tube 1 APPLIC TOPICAL ×4 (10:57→22:57)
--- NOTE | 2024-03-25 19:12 | PCM.PN.HOSP ---
Reason for Visit Reason for Visit: Diagnoses Hypoxemia (03/22/24) COVID-19 (03/22/24) Subjective Subjective Patient was seen and examined today, she is on room air and does not appear to be in any distress. Objective Data Objective Data Vital Signs: Vital Signs Temp Pulse Resp BP Pulse Ox O2 Del Method O2 Flow Rate 97.8 F 55 L 18 152/59 H 94 Room Air 2 03/25/24 17:16 03/25/24 17:16 03/25/24 17:16 03/25/24 17:16 03/25/24 17:16 03/25/24 17:19 03/25/24 08:12 Oxygen Flow Rate (L/min) 2 Oxygen Delivery Method Room Air Weight: 56.7 kg Body Mass Index (BMI) 24.5 Intake & Output: Intake and Output for Last 24 Hours 03/23/24 03/24/24 03/25/24 23:59 23:59 23:59 Intake Total 2443.75 / 2443.75 950 / 950 1100 / 1100 Output Total 1800 / 1800 1150 / 1150 850 / 850 Balance 643.75 / 643.75 -200 / -200 250 / 250 Lab / Micro Data 03/23/24 03:25 03/23/24 03:25 Micro: Microbiology 03/22/24 14:00 Urine Catheter - Catheter Urine Culture - Final Enterococcus faecalis Aerococcus urinae 03/22/24 12:50 Mucosa - Nose SARS-CoV-2, Influenza & RSV (PCR) - Final SARS-CoV-2 (COVID 19 PCR) Physical Exam Narrative alert, no apparent distress and average body habitus Constitutional Narrative: Patient is mildly confused General Appearance: cooperative, well kempt and well developed Orientation / Consciousness: awake, oriented to person and confused HEENT normocephalic, head/scalp atraumatic and moist oral mucous membranes Eyes PERRL, EOMs intact bilaterally and conjunctivae normal Neck supple, no JVD and thyroid normal General: trachea midline Resp normal respiratory effort, no retractions, no use of accessory muscles and clear to auscultation bilaterally Auscultation: Negative for rales, rhonchi or wheezes Cardio regular rate, regular rhythm, S1 normal heart sound, S2 normal heart sound, no murmurs, no rub and no gallops GI normal to inspection, nondistended, normoactive bowel sounds, soft to palpation, non-tender and non-distended Extremity no clubbing, cyanosis or edema Skin no rashes or lesions noted General Skin Exam: no breakdown Neuro CN's II-XII intact bilaterally, no focal motor deficits and no sensory deficits noted Sensorium / Orientation: awake and alert Speech: speech normal Psych Psych Narrative: Patient exhibits mild confusion Assessment & Plan Assessment/Plan (1) Hypoxia: (2) COVID-19: PLAN: Plan 1. COVID-19 infection with hypoxia-patient will remain on remdesivir and dexamethasone, she does not appear in any respiratory distress, patient is currently on room air #2 hypoxia secondary to COVID-19 infection-pulse ox will be monitored, patient is currently on room air #3 generalized weakness secondary to COVID-19 infection-PT and OT will see the patient, she currently resides in a nursing facility #4 acute cystitis-patient's UA showed white blood cells and bacteria, culture shows Enterococcus faecalis and alphahemolytic organism, I will change the patient to Augmentin 875 mg twice a day with food #5 cerebrovascular disease-complicates care, management, recovery, and prognosis #6 dementia-complicates care, management, recovery, and prognosis #7 paroxysmal atrial fibrillation-patient is currently on Eliquis and metoprolol Total clinical time spent by myself addressing the patient's medical issues, reviewing all of her data, and collaborating with patient's care team: 35 minutes Charges/Coding Visit Charges Inpatient E&M: 96948 Subs Hosp L2
[2024-03-25] MEDS: Mirtazapine 15 MG Tablet 7.5 MG PO (22:59)
[2024-03-25] MEDS: Atorvastatin Calcium 20 MG Tablet PO (22:59)
[2024-03-25] MEDS: Pramipexole Di-HCl 0.125 MG Tablet PO (22:59)
[2024-03-25] MEDS: Metoprolol Tartrate 25 MG Tablet PO (22:59)
[2024-03-26 04:50] VITALS: BP 142/86; PULSE 55; RESP 20; TEMP 36.7; O2SAT 96
[2024-03-26 04:51] VITALS: BMI 24.0
[2024-03-26 04:53] VITALS: O2SAT 96
[2024-03-26] MEDS: Amox/Clavulanate 875 MG Tablet PO (09:24)
[2024-03-26 09:25] VITALS: BP 153/55; PULSE 52; RESP 20; TEMP 36.6; O2SAT 97
[2024-03-26 09:36] VITALS: BP 153/55; PULSE 54
[2024-03-26] MEDS: Pantoprazole Sodium 20 MG Tablet PO (09:36)
[2024-03-26] MEDS: APIXABAN 2.5 MG TABLET (WCH) PO (09:36)
[2024-03-26] MEDS: Escitalopram Oxalate 10 MG Tablet 5 MG PO (09:37)
[2024-03-26] MEDS: Escitalopram Oxalate 10 MG Tablet PO (09:37)
[2024-03-26] MEDS: Acetaminophen 325 MG Tablet 650 MG PO (09:37)
[2024-03-26] MEDS: Senna/Docusate Sodium 1 Tablet PO (09:37)
[2024-03-26] MEDS: Oxybutynin 5 MG Tablet PO (09:37)
[2024-03-26] MEDS: dexAMETHasone 4 MG/ML Vial 6 MG IV (09:38)
[2024-03-26] MEDS: 0.9% Saline Lock 10 ML Syringe IV (09:38)
[2024-03-26] MEDS: Remdesivir 100 MG in 0.9% Normal Saline (250mL Bag) 230 ML 250 MG IV (09:39)
[2024-03-26 09:40] VITALS: O2SAT 97
[2024-03-26] MEDS: Nystatin Powder 15gm Bottle 1 APPLIC TOPICAL (09:48)
[2024-03-26] MEDS: Menthol/Lanolin/Calamine/Znox 113 GM Tube 1 APPLIC TOPICAL (09:48)
[2024-03-26] MEDS: Polyethylene Glycol 3350 17 GM PACKET PO (09:48)
--- NOTE | 2024-03-26 10:41 | PCM.TXEXTCAR ---
Diet Diet Order/Speech Therapy: 03/23/24 13:14 Diet: Regular - General Food consistency:: Soft & Bite Sized Liquid Consistency:: Regular/Thin Type of Dietary Supplement:: Ensure Compact w/ meals Diet Comments: soft and bite sized, thin liquids no straws Routine Orders/Code Status Code Status: DNRCC DC O2, CPAP, BIPAP needs Home O2 Discharge instructions: No Therapies Weight Bearing: Full weight bearing Physical Therapy: Eval and Treat Occupational Therapy: Eval and Treat Speech Therapy: Eval and Treat Problem/Diagnosis (1) Hypoxia: Status: Acute Code(s): R09.02 - Hypoxemia (2) COVID-19: Status: Acute Code(s): U07.1 - COVID-19 Plan 1. COVID-19 infection with hypoxia-patient will remain on remdesivir and dexamethasone, she does not appear in any respiratory distress, patient is currently on room air #2 hypoxia secondary to COVID-19 infection-pulse ox will be monitored, patient is currently on room air #3 generalized weakness secondary to COVID-19 infection-PT and OT will see the patient, she currently resides in a nursing facility #4 acute cystitis-patient's UA showed white blood cells and bacteria, culture shows Enterococcus faecalis and alphahemolytic organism, I will change the patient to Augmentin 875 mg twice a day with food #5 cerebrovascular disease-complicates care, management, recovery, and prognosis #6 dementia-complicates care, management, recovery, and prognosis #7 paroxysmal atrial fibrillation-patient is currently on Eliquis and metoprolol Total clinical time spent by myself addressing the patient's medical issues, reviewing all of her data, and collaborating with patient's care team: 35 minutes Allergies/Procedures Done in Hospital Allergies ranolazine (From Ranexa) Adverse Reaction (Severe, Verified 12/30/22 16:02) low urine output, rash oseltamivir (From Tamiflu) Adverse Reaction (Verified 12/30/22 16:02) Unknown Procedures: None Type of Care/Length of Stay Estimated LOS: Convalescent Care Less Than 30 days Type of Care Needed: Skilled Rehab Potential: Good Prognosis: Good Additional Orders/Day of Discharge H&P will serve as current which was dated: 03/22/24 Day of Discharge: 03/26/24 Dietary and Speech Recommendations Dietitian Recommendations/Changes: Adjust to liberal regular diet d/t decreased appetite with COVID, consistency/texture per [employer] recommendations. Will order 120ml ensure compact TID with meals. Will monitor weight trends. Reviewed and approved by Clemencia Mullins MS, RDN, RD. Discharge Plan Admission Admit Date/Time: 03/22/24 14:49 Primary Reason for Your Visit: COVID-19 infection with hypoxia Attending Provider: Catarino Aguilar Primary Care Provider: Edouard Grayson Consulting Providers: Chasity Huffman Discharge Orders/Prescriptions Prescriptions: New acetaminophen 325 mg Tablet 650 mg PO Q4H PRN PRN (Reason: Fever, pain 1-12/19) Qty: 0 0RF atorvastatin 20 mg Tablet 20 mg PO QHS Qty: 0 0RF amoxicillin-pot clavulanate 875-125 mg Tablet 1 tab PO BIDCM Qty: 1 0RF Rx Instructions: Administer with stop date 03/31/2024 escitalopram oxalate 10 mg Tablet 5 mg PO DAILY Qty: 0 0RF escitalopram oxalate 10 mg Tablet 20 mg PO DAILY Qty: 0 0RF Eliquis 5 mg Tablet 2.5 mg PO BID Qty: 0 0RF menthol-zinc oxide [Calmoseptine] 0.44-20.6 % Ointment 1 applic topical 4X/DAY Qty: 0 0RF Protocol: *Topical Application Instructions APPLICATION INSTRUCTIONS: apply to affected region sennosides-docusate sodium [Stimulant Laxative Plus] 8.6-50 mg Tablet 1 tab PO DAILY Qty: 0 0RF pantoprazole 20 mg Tablet,Delayed Release (Dr/Ec) 20 mg PO DAILY Qty: 0 0RF pramipexole 0.125 mg Tablet 0.125 mg PO QHS Qty: 0 0RF mirtazapine 15 mg Tablet 15 mg PO QHS Qty: 0 0RF nystatin [Nyamyc] 100,000 unit/gram Powder 1 applic topical BID Qty: 0 0RF Protocol: *Topical Application Instructions APPLICATION INSTRUCTIONS: groin oxybutynin chloride 5 mg Tablet 5 mg PO DAILY Qty: 0 0RF metoprolol tartrate 25 mg Tablet 25 mg PO BID Qty: 0 0RF dexamethasone 6 mg tablet 6 mg PO DAILY Qty: 6 0RF Rx Instructions: Continue for 3 days starting 03/27/2024 Discontinued acetaminophen 500 mg Tablet 1,000 mg PO Q8 PRN (Reason: fever/pain 1-10) Qty: 0 0RF metoprolol tartrate 25 mg tablet 25 mg PO BID pramipexole 0.125 mg Tablet 0.125 mg PO QHS Qty: 0 0RF Eliquis 2.5 mg tablet 2.5 mg PO BID Qty: 60 0RF omeprazole 20 mg capsule,delayed release(DR/EC) 20 mg PO DAILY oxybutynin chloride 5 mg tablet 5 mg PO DAILY atorvastatin 20 mg tablet 20 mg PO QHS escitalopram oxalate 10 mg tablet 10 mg PO DAILY Patient Comments: TAKE ONE 10MG TAB AND ONE 5MG TAB FOR TOTAL DOSE OF 15MG DAILY. escitalopram oxalate 5 mg tablet 5 mg PO DAILY Patient Comments: TAKE ONE 10MG TAB AND ONE 5MG TAB FOR TOTAL DOSE OF 15MG DAILY. mirtazapine 7.5 mg tablet 7.5 mg PO QHS No Action menthol-zinc oxide [Calmoseptine] 0.44-20.6 % Ointment 1 applic topical BID Qty: 0 0RF Protocol: *Topical Application Instructions APPLICATION INSTRUCTIONS: Apply to coccyx sennosides-docusate sodium [2-in-1 Laxative] 8.6-50 mg tablet 1 tab-cap PO DAILY dexamethasone 4 mg tablet 4 mg PO Q12H polyethylene glycol 3350 [Miralax] 17 gram/dose powder 17 g PO DAILY Paxlovid 300 mg (150 mg x 2)-100 mg tablets,dose pack 3 tab PO BID Rx Instructions: for 5 days starting 03/22 Referrals / Follow Up: Edouard Grayson MD [Primary Care Provider] - Disposition Disposition (needs filled in before D/C Order can be placed): [facility]
--- NOTE | 2024-03-26 11:10 | DS.PCM_ITS ---
Providers Date of Admission: 03/22/24 Date of Discharge: 03/26/24 Primary Care Physician: Dr. Edouard Grayson MD Reason For Visit: HYYPOXIA, COVID Diagnosis Discharge Diagnosis (1) Hypoxia: Status: Acute Code(s): R09.02 - Hypoxemia (2) COVID-19: Status: Acute Code(s): U07.1 - COVID-19 Plan 1. COVID-19 infection with hypoxia-patient will remain on remdesivir and dexamethasone, she does not appear in any respiratory distress, patient is currently on room air #2 hypoxia secondary to COVID-19 infection-pulse ox will be monitored, patient is currently on room air #3 generalized weakness secondary to COVID-19 infection-PT and OT will see the patient, she currently resides in a nursing facility #4 acute cystitis-patient's UA showed white blood cells and bacteria, culture shows Enterococcus faecalis and alphahemolytic organism, I will change the patient to Augmentin 875 mg twice a day with food #5 cerebrovascular disease-complicates care, management, recovery, and prognosis #6 dementia-complicates care, management, recovery, and prognosis #7 paroxysmal atrial fibrillation-patient is currently on Eliquis and metoprolol Total clinical time spent by myself addressing the patient's medical issues, reviewing all of her data, and collaborating with patient's care team: 35 minutes Medications at Discharge Home Medications menthol 0.44 %-zinc oxide 20.6 % topical ointment (Calmoseptine) 1 applic topical BID #0 grams 03/09/22 sennosides 8.6 mg-docusate sodium 50 mg tablet (2-in-1 Laxative) 1 tab-cap PO DAILY constipation 12/30/22 dexamethasone 4 mg tablet 4 mg PO Q12H 03/22/24 nirmatrelvir 300 mg (150 mg x2)-ritonavir 100 mg tablet,dose pack (Paxlovid) 3 tab PO BID 03/22/24 polyethylene glycol 3350 17 gram/dose oral powder (Miralax) 17 g PO DAILY 03/22/24 acetaminophen 325 mg tablet 650 mg (2 x 325 mg) PO Q4H PRN PRN Fever, pain 1- 12/19 #0 tabs 03/26/24 amoxicillin 875 mg-potassium clavulanate 125 mg tablet 1 tab PO BIDCM #1 TAB 03/26/24 apixaban 5 mg tablet (Eliquis) 2.5 mg (1/2 x 5 mg) PO BID #0 tabs 03/26/24 atorvastatin 20 mg tablet 20 mg PO QHS #0 tabs 03/26/24 dexamethasone 6 mg tablet 6 mg PO DAILY #6 tabs 03/26/24 escitalopram oxalate 10 mg tablet 5 mg (1/2 x 10 mg) PO DAILY #0 tabs 03/26/24 escitalopram oxalate 10 mg tablet 20 mg (2 x 10 mg) PO DAILY #0 tabs 03/26/24 menthol 0.44 %-zinc oxide 20.6 % topical ointment (Calmoseptine) 1 applic topical 4X/DAY #0 grams 03/26/24 metoprolol tartrate 25 mg tablet 25 mg PO BID #0 tabs 03/26/24 mirtazapine 15 mg tablet 15 mg PO QHS #0 tabs 03/26/24 nystatin 100,000 unit/gram topical powder (Nyamyc) 1 applic topical BID #0 grams 03/26/24 oxybutynin chloride 5 mg tablet 5 mg PO DAILY #0 tabs 03/26/24 pantoprazole 20 mg tablet,delayed release 20 mg PO DAILY #0 tabs 03/26/24 pramipexole 0.125 mg tablet 0.125 mg PO QHS #0 tabs 03/26/24 sennosides 8.6 mg-docusate sodium 50 mg tablet (Stimulant Laxative Plus) 1 tab PO DAILY #0 tabs 03/26/24 Hospital Course Operations None Procedures None Summary of Care Provided Minutes Spent on Discharge: 32 Hospital Course: This 83-year-old white female was seen in the emergency room at [facility] after being sent in from a local care facility with shortness of breath. Patient had tested positive for COVID the day before, she was found to be 84% on room air today. Patient was very weak and having decreased p.o. intake. Workup in the emergency room included a CBC that was remarkable for hemoglobin 9.8. Patient's chemistry profile was remarkable for creatinine of 1.07 and a BUN of 24, patient's beta natruretic peptide was mildly elevated. Urinalysis was positive for 4+ bacteria but 0-5 RBCs and 0 and 5-10 WBCs. Chest x-ray showed a moderate hiatal hernia with mild bibasilar atelectasis. CT of the brain showed no acute intracranial processes. 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 Patient was admitted to [place] [address] and seen by PT and OT, she was given IV remdesivir and given dexamethasone. Patient improved during her hospitalization, on 03/26/2024, patient appears stable for return to her nursing facility:alert, no apparent distress and average body habitus Constitutional Narrative: Patient is mildly confused General Appearance: cooperative, well kempt and well developed Orientation / Consciousness: awake, oriented to person and confused HEENT normocephalic, head/scalp atraumatic and moist oral mucous membranes Eyes PERRL, EOMs intact bilaterally and conjunctivae normal Neck supple, no JVD and thyroid normal General: trachea midline Resp normal respiratory effort, no retractions, no use of accessory muscles and clear to auscultation bilaterally Auscultation: Negative for rales, rhonchi or wheezes Cardio regular rate, regular rhythm, S1 normal heart sound, S2 normal heart sound, no murmurs, no rub and no gallops GI normal to inspection, nondistended, normoactive bowel sounds, soft to palpation, non-tender and non-distended Extremity no clubbing, cyanosis or edema Skin no rashes or lesions noted General Skin Exam: no breakdown Neuro CN's II-XII intact bilaterally, no focal motor deficits and no sensory deficits noted Sensorium / Orientation: awake and alert Speech: speech normal Psych Psych Narrative: Patient exhibits mild confusion Weight / BMI Weight Weight: 55.4 kg Body Mass Index (BMI) 24.0 ABG / Lab / Microbiology Data 03/23/24 03:25 03/23/24 03:25 Microbiology: Microbiology 03/22/24 14:00 Urine Catheter - Catheter Urine Culture - Final Enterococcus faecalis Aerococcus urinae 03/22/24 12:50 Mucosa - Nose SARS-CoV-2, Influenza & RSV (PCR) - Final SARS-CoV-2 (COVID 19 PCR) D/C Instructions DC O2, CPAP, BIPAP Needs Home O2 Discharge instructions: No Meaningful Use Info Meaningful Use Meaningful Use Diagnoses (Choose all that apply): None applicable Ischemic Stroke Statin Dosing Therapy Reference: STATIN DOSE THERAPY REFERENCE: * Patients > 75 years receive moderate or high dose statin therapy. * Patients 75 years or YOUNGER should receive HIGH intensity statin dose unless contraindicated. You will be required to document reason for non-treatment if statin daily dose does not meet guidelines. HIGH DOSE STATIN THERAPY DAILY Atorvastatin > than or = to 40 mg Rosuvastatin > than or = to 20 mg Amlodipine + Atorvastatin > than or = to 2.5/40 mg Ezetimibe + Simvastatin 10/80 mg Simvastatin 80mg Discharge Plan Admission Admit Date/Time: 03/22/24 14:49 Primary Reason for Your Visit: COVID-19 infection with hypoxia Attending Provider: Catarino Aguilar Primary Care Provider: Edouard Grayson Consulting Providers: Chasity Huffman Discharge Orders/Prescriptions Prescriptions: New acetaminophen 325 mg Tablet 650 mg PO Q4H PRN PRN (Reason: Fever, pain -12/19) Qty: 0 0RF atorvastatin 20 mg Tablet 20 mg PO QHS Qty: 0 0RF amoxicillin-pot clavulanate 875-125 mg Tablet 1 tab PO BIDCM Qty: 1 0RF Rx Instructions: Administer with stop date 03/31/2024 escitalopram oxalate 10 mg Tablet 5 mg PO DAILY Qty: 0 0RF escitalopram oxalate 10 mg Tablet 20 mg PO DAILY Qty: 0 0RF Eliquis 5 mg Tablet 2.5 mg PO BID Qty: 0 0RF menthol-zinc oxide [Calmoseptine] 0.44-20.6 % Ointment 1 applic topical 4X/DAY Qty: 0 0RF Protocol: *Topical Application Instructions APPLICATION INSTRUCTIONS: apply to affected region sennosides-docusate sodium [Stimulant Laxative Plus] 8.6-50 mg Tablet 1 tab PO DAILY Qty: 0 0RF pantoprazole 20 mg Tablet,Delayed Release (Dr/Ec) 20 mg PO DAILY Qty: 0 0RF pramipexole 0.125 mg Tablet 0.125 mg PO QHS Qty: 0 0RF mirtazapine 15 mg Tablet 15 mg PO QHS Qty: 0 0RF nystatin [Nyamyc] 100,000 unit/gram Powder 1 applic topical BID Qty: 0 0RF Protocol: *Topical Application Instructions APPLICATION INSTRUCTIONS: groin oxybutynin chloride 5 mg Tablet 5 mg PO DAILY Qty: 0 0RF metoprolol tartrate 25 mg Tablet 25 mg PO BID Qty: 0 0RF dexamethasone 6 mg tablet 6 mg PO DAILY Qty: 6 0RF Rx Instructions: Continue for 3 days starting 03/27/2024 Discontinued acetaminophen 500 mg Tablet 1,000 mg PO Q8 PRN (Reason: fever/pain 1-10) Qty: 0 0RF metoprolol tartrate 25 mg tablet 25 mg PO BID pramipexole 0.125 mg Tablet 0.125 mg PO QHS Qty: 0 0RF Eliquis 2.5 mg tablet 2.5 mg PO BID Qty: 60 0RF omeprazole 20 mg capsule,delayed release(DR/EC) 20 mg PO DAILY oxybutynin chloride 5 mg tablet 5 mg PO DAILY atorvastatin 20 mg tablet 20 mg PO QHS escitalopram oxalate 10 mg tablet 10 mg PO DAILY Patient Comments: TAKE ONE 10MG TAB AND ONE 5MG TAB FOR TOTAL DOSE OF 15MG DAILY. escitalopram oxalate 5 mg tablet 5 mg PO DAILY Patient Comments: TAKE ONE 10MG TAB AND ONE 5MG TAB FOR TOTAL DOSE OF 15MG DAILY. mirtazapine 7.5 mg tablet 7.5 mg PO QHS No Action menthol-zinc oxide [Calmoseptine] 0.44-20.6 % Ointment 1 applic topical BID Qty: 0 0RF Protocol: *Topical Application Instructions APPLICATION INSTRUCTIONS: Apply to coccyx sennosides-docusate sodium [2-in-1 Laxative] 8.6-50 mg tablet 1 tab-cap PO DAILY dexamethasone 4 mg tablet 4 mg PO Q12H polyethylene glycol 3350 [Miralax] 17 gram/dose powder 17 g PO DAILY Paxlovid 300 mg (150 mg x 2)-100 mg tablets,dose pack 3 tab PO BID Rx Instructions: for 5 days starting 03/22 Referrals / Follow Up: Edouard Grayson MD [Primary Care Provider] - Disposition Disposition (needs filled in before D/C Order can be placed): [facility] Charges/Coding Visit Charges Inpatient E&M: 14365 Disch Hosp >30min
--- NOTE | 2024-03-26 12:25 | CASEMGMT ---
Social Work- Physician feels that pt is medically ready for discharge. Pt family plans to transport to SNF. [facility] notified. Final discharge arrangements and notification to patient/family as per discharge schedule planning manager.? Plan: [facility]; skilled level of care OMAR Wagner
--- NOTE | 2024-03-26 12:28 | CASEMGMT ---
Discharge orders, signed med list and note that family will transport sent via [facility] to [facility]. Vania Dexter DC Planning Asst.
[2024-03-26 13:35] VITALS: BP 158/55; PULSE 55; RESP 18; TEMP 36.6; O2SAT 95
== END 2024-03-26 13:40 | DRG 178 ==
LOC: ED 12:50 → MS3 15:12
PROVIDERS: Physician Assistant; Admitting Provider Family Medicine; Emergency Provider Emergency Medicine; PCP Family Medicine; Visit Provider Internal Medicine
DX: U07.1 COVID-19 (principal); I69.354 Hemiplegia and hemiparesis following cerebral infarction affecting left non-dominant side; F03.93 Unspecified dementia, unspecified severity, with mood disturbance; F03.94 Unspecified dementia, unspecified severity, with anxiety; N30.00 Acute cystitis without hematuria; B95.2 Enterococcus as the cause of diseases classified elsewhere; Z66 Do not resuscitate; G25.81 Restless legs syndrome; I48.0 Paroxysmal atrial fibrillation; I69.320 Aphasia following cerebral infarction; N18.30 Chronic kidney disease, stage 3 unspecified; I12.9 Hypertensive chronic kidney disease with stage 1 through stage 4 chronic kidney disease, or unspecified chronic kidney disease; D50.9 Iron deficiency anemia, unspecified; F32.A Depression, unspecified; E78.5 Hyperlipidemia, unspecified; K58.9 Irritable bowel syndrome, unspecified; I25.10 Atherosclerotic heart disease of native coronary artery without angina pectoris; K21.9 Gastro-esophageal reflux disease without esophagitis; K44.9 Diaphragmatic hernia without obstruction or gangrene; F41.9 Anxiety disorder, unspecified; G43.909 Migraine, unspecified, not intractable, without status migrainosus; R62.7 Adult failure to thrive; R73.9 Hyperglycemia, unspecified; Z79.01 Long term (current) use of anticoagulants; Z79.52 Long term (current) use of systemic steroids; R09.02 Hypoxemia; Z79.899 Other long term (current) drug therapy; Z68.23 Body mass index [BMI] 23.0-23.9, adult
CPT/HCPCS: 36415; 70450; 71045; 80048; 80053; 80076; 81001; 82550; 82728; 83615; 83880; 84145; 84484; 85025; 85379; 85652; 86140; 87077; 87086; 87088; 87186; 87631; 92526; 92610; 93005; 97110; 97116; 97162; 97165; 97530; 97535; 97802; 99285; P9612; A4216; J0248

== ENCOUNTER → 2024-03-31 05:00 | Outpatient (REF) | payer MEDICARE, OTHER, SELFPAY ==
[2024-03-31 10:06] LABS: Hematocrit 33.7 % (37-47); Hemoglobin 10.5 g/dL (12.0-15.0); Mean Corp Hgb Conc 31.2 g/dL (32-36); Mean Corpuscular Hgb 24.2 pg (27.0-32.0); Mean Corpuscular Volume 77.8 fL (81-99); Mean Platelet Vol. 10.2 fl (6.2-12.0); Platelet Count 360 K/mm3 (150-450); RBC Distribution Width CV 17.4 % (11.6-14.6); RBC Distribution Width SD 48.6 fl (35.1-43.9); Red Blood Count 4.33 M/mm3 (4.2-5.4)
[2024-03-31 10:13] LABS: Anion Gap 5 (5-15); BUN 36 mg/dL (7-18); BUN/Creat Ratio 35.6 RATIO (10-20); Calcium,Total 9.3 mg/dL (8.5-10.1); Chloride 109 mmol/L (98-107); Creatinine, Serum 1.01 mg/dL (0.55-1.02); EST Glomerular Filtration Rate 56 mL/min (>60); Est Glom Filt Rate - Afr Amer 68 mL/min (>60); Glucose 180 mg/dL (74-106); Potassium 3.9 mmol/L (3.5-5.1); Sodium Level 141 mmol/L (136-145)
== END ==
LOC: OLS.WCC 05:00
PROVIDERS: PCP Family Medicine; Visit Provider Family Medicine
DX: I82.409 Acute embolism and thrombosis of unspecified deep veins of unspecified lower extremity (principal); I10 Essential (primary) hypertension; E78.5 Hyperlipidemia, unspecified; Z79.899 Other long term (current) drug therapy
CPT/HCPCS: 36415; 80048; 85027

== ENCOUNTER → 2024-03-31 16:30 | Outpatient (REF) | payer MEDICARE, OTHER, SELFPAY ==
[2024-04-01 07:56] LABS: Mucous, Urine 0 SEEN /hpf (<or=2+)
[2024-04-01 08:17] LABS: Color, Urine Yellow (Yellow); Glucose, Dipstick 250 mg/dl (Normal); Ketone-Dipstick Negative (Negative); Leukocyte Esterase-Dipstick 500 /ul (Negative); Nitrite-Dipstick Negative (Negative); Occult Blood-Urine 10 /ul (Negative); Protein-Dipstick 30 mg/dl (Negative); Specific Gravity, Urine 1.025 (1.002-1.030); Urine Bilirubin Dipstick Negative (Negative); Urine Clarity Cloudy (Clear); Urine Urobilinogen Normal (Normal)
[2024-04-01 08:25] LABS: Red Blood Cells-Urine 0-5 SEEN /hpf (0-5); Squamous Epithelial Cells - UA 0-5 SEEN /hpf (5-10); White Blood Cells 10-25 SEEN /hpf (0-5)
[2024-04-01 08:26] LABS: Yeast-Urine 1+ /hpf (None Seen)
[2024-04-01 08:27] LABS: Bacteria RARE /hpf (None Seen)
== END ==
LOC: OLS.WCC 16:30
PROVIDERS: PCP Family Medicine; Visit Provider Family Medicine
DX: E86.0 Dehydration (principal)
CPT/HCPCS: 81001; 87086; 87088

== ENCOUNTER → 2024-04-04 05:00 | Outpatient (REF) | payer MEDICARE, OTHER, SELFPAY ==
[2024-04-04 08:36] LABS: Absolute Lymphocyte Count 3.65 X10^3/uL (0.83-4.51); Absolute Neutrophil Count 10.9 X10^3/uL (2.0-7.7); Basophil# 0.04 X10^3/uL; Basophil% 0.2 % (0-1); Eosinophil# 0.28 X10^3/uL; Eosinophils% 1.7 % (0-5); Hematocrit 29.6 % (37-47); Hemoglobin 9.3 g/dL (12.0-15.0); Lymphocyte # 3.65 X10^3/ul (0.83-4.51); Lymphocyte % 22.1 % (19-41); Mean Corp Hgb Conc 31.4 g/dL (32-36); Mean Corpuscular Hgb 24.2 pg (27.0-32.0); Mean Corpuscular Volume 76.9 fL (81-99); Mean Platelet Vol. 10.5 fl (6.2-12.0); Monocyte# 1.52 X10^3/uL; Monocyte% 9.2 % (0-10); NRBC Flagged by Analyzer 0 % (0-5); Neutrophil # 10.89 X10^3/uL (2.7-7.7); Neutrophil % 66.1 % (47-70); POSITIVE DIFFERENTIAL YES; Platelet Count 250 K/mm3 (150-450); RBC Distribution Width SD 48.5 fl (35.1-43.9); Red Blood Count 3.85 M/mm3 (4.2-5.4); White Blood Count 16.5 K/mm3 (4.4-11.0)
[2024-04-04 08:37] LABS: Differential Indicated SCAN CRITERIA MET
[2024-04-04 09:11] LABS: Anion Gap 6 (5-15); BUN 23 mg/dL (7-18); BUN/Creat Ratio 19.5 RATIO (10-20); Chloride 106 mmol/L (98-107); Creatinine, Serum 1.18 mg/dL (0.55-1.02); EST Glomerular Filtration Rate 47 mL/min (>60); Est Glom Filt Rate - Afr Amer 56 mL/min (>60); Glucose 134 mg/dL (74-106); Potassium 4.3 mmol/L (3.5-5.1); Sodium Level 135 mmol/L (136-145)
[2024-04-07 16:13] LABS: Pathologist Review Reviewed
== END ==
LOC: OLS.WCC 05:00
PROVIDERS: PCP Family Medicine; Visit Provider Family Medicine
DX: N39.0 Urinary tract infection, site not specified (principal); Z79.899 Other long term (current) drug therapy
CPT/HCPCS: 36415; 80048; 85025

== ENCOUNTER → 2024-04-11 05:00 | Outpatient (REF) | payer MEDICARE, OTHER, SELFPAY ==
[2024-04-11 08:11] LABS: Absolute Lymphocyte Count 3.05 X10^3/uL (0.83-4.51); Absolute Neutrophil Count 7.5 X10^3/uL (2.0-7.7); Basophil# 0.03 X10^3/uL; Basophil% 0.3 % (0-1); Eosinophil# 0.26 X10^3/uL; Eosinophils% 2.2 % (0-5); Hemoglobin 8.5 g/dL (12.0-15.0); Lymphocyte # 3.05 X10^3/ul (0.83-4.51); Lymphocyte % 25.8 % (19-41); Mean Corp Hgb Conc 30.4 g/dL (32-36); Mean Corpuscular Hgb 23.7 pg (27.0-32.0); Mean Corpuscular Volume 78.2 fL (81-99); Mean Platelet Vol. 9.7 fl (6.2-12.0); Monocyte# 0.88 X10^3/uL; Monocyte% 7.5 % (0-10); NRBC Flagged by Analyzer 0 % (0-5); Neutrophil # 7.51 X10^3/uL (2.7-7.7); Neutrophil % 63.6 % (47-70); Platelet Count 345 K/mm3 (150-450); RBC Distribution Width CV 18.6 % (11.6-14.6); RBC Distribution Width SD 50.9 fl (35.1-43.9); Red Blood Count 3.58 M/mm3 (4.2-5.4); White Blood Count 11.8 K/mm3 (4.4-11.0)
== END ==
LOC: OLS.WCC 05:00
PROVIDERS: PCP Family Medicine; Visit Provider Family Medicine
DX: R53.83 Other fatigue (principal); Z79.899 Other long term (current) drug therapy; D72.829 Elevated white blood cell count, unspecified
CPT/HCPCS: 36415; 85025

== ENCOUNTER → 2024-04-21 05:00 | Outpatient (REF) | payer MEDICARE, OTHER, SELFPAY ==
[2024-04-21 09:21] LABS: Hematocrit 35.8 % (37-47); Hemoglobin 10.7 g/dL (12.0-15.0); Mean Corp Hgb Conc 29.9 g/dL (32-36); Mean Corpuscular Hgb 24.9 pg (27.0-32.0); Mean Corpuscular Volume 83.3 fL (81-99); Mean Platelet Vol. 9.3 fl (6.2-12.0); POSITIVE MORPHOLOGY YES; Platelet Count 502 K/mm3 (150-450); RBC Distribution Width CV 21.5 % (11.6-14.6); RBC Distribution Width SD 62.3 fl (35.1-43.9); White Blood Count 11.2 K/mm3 (4.4-11.0)
[2024-04-21 09:29] LABS: Scan Indicated on CBC? Y/N YES- FLAGS NOTED
== END ==
LOC: OLS.WCC 05:00
PROVIDERS: PCP Family Medicine; Visit Provider Family Medicine
DX: D64.9 Anemia, unspecified (principal)
CPT/HCPCS: 36415; 85027

== ENCOUNTER → 2024-06-30 | Outpatient (REF) | payer MEDICARE, OTHER, SELFPAY ==
[2024-06-30 09:39] LABS: Hematocrit 39.1 % (37-47); Hemoglobin 12.6 g/dL (12.0-15.0); Mean Corp Hgb Conc 32.2 g/dL (32-36); Mean Corpuscular Hgb 29.4 pg (27.0-32.0); Mean Corpuscular Volume 91.4 fL (81-99); Mean Platelet Vol. 10.4 fl (6.2-12.0); Platelet Count 270 K/mm3 (150-450); RBC Distribution Width CV 18.1 % (11.6-14.6); RBC Distribution Width SD 60.2 fl (35.1-43.9); Red Blood Count 4.28 M/mm3 (4.2-5.4); White Blood Count 10.8 K/mm3 (4.4-11.0)
[2024-06-30 10:00] LABS: Anion Gap 11 (5-15); BUN 27 mg/dL (4-19); BUN/Creat Ratio 26.9 RATIO (10-20); Calcium,Total 9.7 mg/dL (7.6-11.0); Carbon Dioxide 22.9 mmol/L (21.0-32.0); Chloride 106 mmol/L (98-108); Cholesterol 158 mg/dL (<=200); Creatinine, Serum 1.01 mg/dL (0.70-1.20); EST Glomerular Filtration Rate 56 (>60); Glucose 141 mg/dL (70-99); High Density Lipoprotein 30 mg/dL; Low Density Lipoprotein Calc. 93 mg/dL; Potassium 4.7 mmol/L (3.3-5.1); Sodium Level 140 mmol/L (133-145); Triglycerides 174 mg/dL; Very Low Density Lipoprotein 35 mg/dL (5-40); cholesterol:hdl ratio screen 5.23
== END ==
LOC: OLS.WCC 04:00
PROVIDERS: PCP Family Medicine; Referring Provider Family Medicine; Visit Provider Family Medicine
DX: R09.02 Hypoxemia (principal); Z79.899 Other long term (current) drug therapy
CPT/HCPCS: 36415; 80048; 80061; 85027

== ENCOUNTER → 2024-07-17 05:00 | Outpatient (REF) | payer MEDICARE, OTHER, SELFPAY ==
[2024-07-17 08:07] LABS: Absolute Lymphocyte Count 2.85 X10^3/uL (0.83-4.51); Absolute Neutrophil Count 4.4 X10^3/uL (2.0-7.7); Basophil# 0.07 X10^3/uL; Basophil% 0.8 % (0-1); Eosinophil# 0.32 X10^3/uL; Eosinophils% 3.7 % (0-5); Hematocrit 39.6 % (37-47); Lymphocyte # 2.85 X10^3/ul (0.83-4.51); Lymphocyte % 33.2 % (19-41); Mean Corp Hgb Conc 32.8 g/dL (32-36); Mean Corpuscular Hgb 29.5 pg (27.0-32.0); Mean Corpuscular Volume 89.8 fL (81-99); Mean Platelet Vol. 9.7 fl (6.2-12.0); Monocyte# 0.89 X10^3/uL; Monocyte% 10.4 % (0-10); NRBC Flagged by Analyzer 0 % (0-5); Neutrophil # 4.42 X10^3/uL (2.7-7.7); Neutrophil % 51.6 % (47-70); Platelet Count 272 K/mm3 (150-450); RBC Distribution Width CV 15.9 % (11.6-14.6); RBC Distribution Width SD 51.5 fl (35.1-43.9); Red Blood Count 4.41 M/mm3 (4.2-5.4); White Blood Count 8.6 K/mm3 (4.4-11.0)
[2024-07-17 08:20] LABS: AST(SGOT) 42 U/L (<=31); Alanine Aminotransfer ALT/SGPT 41 U/L (<=34); Albumin, Serum 3.7 g/dL (3.4-4.8); Alkaline Phosphatase 127 U/L (35-104); Amylase 24 U/L (28-100); Anion Gap 13 (5-15); BUN 25 mg/dL (4-19); BUN/Creat Ratio 28.4 RATIO (10-20); Calcium,Total 9.6 mg/dL (7.6-11.0); Carbon Dioxide 19.7 mmol/L (21.0-32.0); Chloride 108 mmol/L (98-108); Creatinine, Serum 0.89 mg/dL (0.70-1.20); EST Glomerular Filtration Rate 65 (>60); Globulin 3.8 g/dL (2.2-4.2); Glucose 121 mg/dL (70-99); Potassium 3.7 mmol/L (3.3-5.1); Protein, Total 7.4 g/dL (5.9-8.4); Sodium Level 140 mmol/L (133-145); Total Bilirubin 0.37 mg/dL (0.00-1.30)
== END ==
LOC: OLS.WCC 05:00
PROVIDERS: PCP Family Medicine; Visit Provider Family Medicine
DX: I48.91 Unspecified atrial fibrillation (principal); I10 Essential (primary) hypertension; Z79.899 Other long term (current) drug therapy
CPT/HCPCS: 36415; 80053; 82150; 85025

== ENCOUNTER → 2024-09-29 04:00 | Outpatient (REF) | payer MEDICARE, OTHER, SELFPAY ==
--- OUTSIDE RECORDS SUMMARY | 2024-09-29 04:19 | XMS RPT_ITS | CCD ---
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 Errol Shahid Primary Care Provider [phone] Dr. Mahamed Blackwell Attending Provider Dr. Errol Meyers Referring Provider Dr. Errol Shahid Primary Care Provider Dr. Errol Shahid Referring Provider Dr. Franco Toro Attending Provider Dr. Mauro Davis Attending Provider [phone] Franco Toro Referring Provider Dr. Franco Toro Other Provider Dr. Coy Story Attending Provider [phone] Dr. Mauro Davis Referring Provider [phone] Errol Shahid Primary Care Provider Dr. Errol Shahid Referring Provider Dr. Franco Toro Attending Provider Dr. Mauro Davis Attending Provider [phone] Franco Toro Referring Provider Dr. Franco Toro Other Provider Dr. Coy Story Attending Provider [phone] Dr. Mauro Davis Referring Provider PROVIDER, UNKNOWN Attending Unavailable PROVIDER, UNKNOWN Admitting Unavailable Tripp Shahid MD Primary Care Provider CONSULT, SURGERY - NEURO Consulting Unavail able GABINO BARKLEY Referring Unavailable HANNAH MACHUCA Attending Unavailable HERMINIO CAM Admitting Unavailable Sementi, Dr. Paulette Murrell Admit Provider Sementi, Dr. Paulette Murrell Attending Provider Sementi, Dr. Paulette Murrell Other Provider Friend, Dr. Fernandez Other Provider Friend, Dr. Fernandez Attending Provider Dr. Errol Shahid Primary Care Provider MD Danyel Viveros Emergency Provider Armida, Dr. Chasity Nice Admit Provider Dr. Chasity Huffman Referring Provider Dr. Chasity Huffman Other Provider Koram, Dr. Helene Jiménez Other Provider Friend, Dr. Fernandez Attending Provider Koram, Dr. Helene Jiménez Attending Provider Dr. Stefano Palmer Attending Provider Dr. Stefano Palmer Other Provider Dr. Errol Shahid Primary Care Provider MD Danyel Viveros Emergency Provider White, Dr. Chasity Nice Admit Provider Dr. Chasity Huffman Referring Provider Dr. Chasity Huffman Other Provider Koraurora, Dr. Helene Jiménez Other Provider Friend, Dr. Fernandez Attending Provider Koram, Dr. Helene Jiménez Attending Provider Dr. Stefano Palmer Attending Provider Dr. Stefano Palmer Other Provider Dr. Stefano Palmer Referring Provider Dr. Edouard Grayson MD Primary Care Provider Dr. Compa Martinez DO Emergency Provider Armida BOGGS, Dr. Chasity Nice Admit Provider Armida BOGGS, Dr. Chasity Nice Other Provider Dr. Catarino Aguilar DO Attending Provider Jeff EASON, Dr. Toribio Other Provider Kenan BOGGS, Edouard Patterson Attending Provider Unavailable Kenan BOGGS, Edouard Patterson Referring Provider Unavailable Grayson, Edouard K Primary Care Unavailable Grayson OLS, Edouard K Attending Unavailable Grayson, Edouard K Primary Care Unavailable Grayson OLS, Edouard K Attending Unavailable Grayson, Edouard K Primary Care Unavailable Grayson OLS, Edouard K Attending Unavailable Grayson, Edouard K Primary Care Unavailable Grayson OLS, Edouard K Attending Unavailable Grayson OLS, Edouard K Referring Unavailable Grayson, Edouard K Primary Care Unavailable White, Chasity L Admitting Unavailable Chasity Huffman Attending Unavailable Chasity Huffman Consulting Unavailable Catarino Aguilar Attending Unavailable Catarino Aguilar Consulting Unavailable Grayson, Edouard K Primary Care Unavailable Grayson OLS, Edouard K Attending Unavailable Grayson OLS, Edouard K Referring Unavailable Grayson OLS, Edouard K Attending Unavailable Ranney, [place] Primary Care Unavailable Grayson, Edouard K Attending Unavailable Ranney, [place] Primary Care Unavailable Grayson OLS, Edouard K Attending Unavailable Ranney, [place] Primary Care Unavailable Grayson, Edouard K Primary Care Unavailable Grayson OLS, Edouard K Attending Unavailable Grayson, Edouard K Primary Care Unavailable White, Chasity L Admitting Unavailable White Chasity L Consulting Unavailable TerCatarino newman Attending Unavailable Grayson, Edouard K Primary Care Unavailable Grayson OLS, Edouard K Attending Unavailable Allergies Allergy Classification Reported Allergen(s) Allergy Type Date of Onset Reaction(s) Facility (20 sources) Oseltamivir Drug Allergy 2 Unknown [facility] (20 sources) ranolazine Drug Allergy 2 low urine output, rash [facility] (1 source) Oseltamivir Drug Allergy 3 [facility] (1 source) ranolazine Drug Allergy 3 [facility] Medications Current Medications Medication Drug Class(es) Dates Sig (Normalized) Sig (Original) acetaminophen 325 mg oral tablet (13 sources) Start: 03-26-2024 take 2 tablets by mouth every four hours as needed for pain Acetaminophen 325 mg Tablet Active 650 mg PO EVERY 4 HOURS NEEDED as needed for Fever, pain 0 March 26, 2024 1:00am Start: 02-20-2022 End: 03-26-2024 take 2 tablets by mouth every eight hours as needed for pain Acetaminophen 500 mg Tablet Discontinued 1000 mg PO EVERY 8 HOURS as needed for fever/pain 03-21February 20, 2022 1:00am March 26, 2024 11:44am Start: 02-20-2022 take 1000 mg by mout h every eight hours Acetaminophen Active 1000 MG PO EVERY 8 HOURS February 20, 2022 1:00am Start: 01-22-2022 End: 01-28-2022 take 650 mg rectal route every four hours as needed 650 mg, Rectal, EVERY 4 HOURS NEEDED, Starting on 01/22/22 at 1211, Until 01/28/22 at 2011, Oral temp > 100.4 F Maximum dose of acetaminophen is 4000 mg from all sources in 24 hours. amoxicillin 875 mg / clavulanate 125 mg oral tablet (1 source) Penicillin-class Antibacterial Start: 03-26-2024 Amoxicillin-Pot Clavulanate 875-125 mg Tablet Active 1 {tbl} PO TWICE DAILY WITH MEALS March 26, 2024 1:00am Administer with stop date 03/31/2024 apixaban 5 mg oral tablet (20 sources) Factor Xa Inhibitor Start: 03-26-2024 take 2.5 mg by mouth twice daily Apixaban (Eliquis) 5 mg Tablet Active 2.5 mg PO TWICE A DAY 0 March 26, 2024 1:00am Start: 01-02-2023 End: 03-26-2024 take 1 tablet by mouth twice daily Apixaban (Eliquis) 2.5 mg tablet Discontinued 2.5 mg PO TWICE A DAY January 02, 2023 12:00am March 26, 2024 11:47am Start: 02-16-2022 End: 10-24-2023 take 1 tablet by mouth twice daily Apixaban (Eliquis) 5 mg tablet Discontinued 5 mg PO TWICE A DAY February 20, 2022 7:18pm January 02, 2023 9:51am Start: 11-05-2021 End: 01-26-2022 take 2 tablets by mouth twice daily, then take 1 tablet by mouth twice daily Apixaban (Eliquis) 5 mg tablet Discontinued 5 mg PO TWICE A DAY November 05, 2021 12:00am November 07, 2021 8:05am 10 mg twice a day for the first week. Then 5 mg twice a day. atorvastatin 20 mg oral tablet (20 sources) HMG-CoA Reductase Inhibitor Start: 03-22-2024 End: 03-26-2024 take 1 tablet by mouth at bedtime Atorvastatin 20 mg Tablet Active 20 mg PO AT BEDTIME 0 March 26, 2024 1:00am Start: 02-20-2022 End: 03-22-2024 Atorvastatin 40 mg tablet Discontinued 20 mg PO AT BEDTIME February 20, 2022 7:18pm March 22, 2024 3:36pm Start: 01-21-2022 End: 04-26-2022 take 1 tablet by mouth at bedtime Atorvastatin 40 mg Tablet Discontinued 40 mg PO AT BEDTIME 0 February 20, 2022 1:00am February 20, 2022 7:18pm dexamethasone 6 mg oral tablet (2 sources) Corticosteroid Start: 03-26-2024 take 1 tablet by mouth once daily Dexamethasone 6 mg tablet Active 6 mg PO DAILY 6 March 26, 2024 1:00am Continue for 3 days starting 03/27/2024 Start: 03-22-2024 take 1 tablet by linda th every twelve hours Dexamethasone 4 mg tablet Active 4 mg PO Q12H March 22, 2024 1:00am docusate sodium 100 mg oral capsule (12 sources) Start: 06-14-2021 take 1 capsule by mouth once daily Docusate Sodium (Colace) 100 mg Capsule Active 100 MG PO DAILY June 13, 2021 11:00pm docusate sodium 50 mg / sennosides, long-term 8.6 mg oral tablet (18 sources) Start: 12-30-2022 Sennosides-Doc usate Sodium (Stimulant Laxative Plus) 8.6-50 mg Tablet Active 1 {tbl} PO DAILY 0 March 26, 2024 1:00am Start: 02-20-2022 End: 03-09-2022 Sennosides-Docusate Sodium ( Stool Softener-Stimulant Laxat) 8.6-50 mg Tablet Discontinued 2 {tbl} PO TWICE A DAY as needed for bowel mobility 0 February 20, 2022 1:00am March 09, 2022 7:36pm escitalopram 10 mg oral tablet (10 sources) Serotonin Reuptake Inhibitor Start: 03-26-2024 take 5 mg by mouth once daily Escitalopram Oxalate 10 mg Tablet Active 5 mg PO DAILY 0 March 26, 2024 1:00am Start: 03-26-2024 take 2 tablets by mo uth once daily Escitalopram Oxalate 10 mg Tablet Active 20 mg PO DAILY 0 March 26, 2024 1:00am Start: 03-22-2024 End: 03-26-2024 take 1 tablet by mouth once daily Escitalopram Oxalate 10 mg tablet Discontinued 10 mg PO DAILY March 22, 2024 1:00am March 26, 2024 11:48am Start: 03-22-2024 End: 03-26-2024 take 1 tablet by mouth once daily Escitalopram Oxalate 5 mg tablet Discontinued 5 mg PO DAILY March 22, 2024 1:00am March 26, 2024 11:48am Start: 12-30-2022 End: 03-22-2024 Escitalopram Oxalate 10 mg t ablet Discontinued 15 mg PO DAILY December 30, 2022 12:00am March 22, 2024 3:38pm Start: 12-30-2022 take 10 mg by mouth once daily Escitalopram Oxalate Active 10 MG PO DAILY December 30, 2022 12:00am Menthol / Zinc Oxide (11 sources) Start: 03-26-2024 Menthol-Zinc O xide (Calmoseptine) 0.44-20.6 % Ointment Active 1 NMA TOPICAL 4 TIMES DAILY 0 March 26, 2024 1:00am Please contact the information source for Protocol details. Start: 03-09-2022 Menthol-Zinc O xide (Calmoseptine) 0.44-20.6 % Ointment Active 1 NMA TOPICAL TWICE A DAY 0 March 09, 2022 1:00am Please contact the information source for Protocol details. Start: 03-09-2022 Menthol-Zinc O xide (Calmoseptine) 0.44-20.6 % Ointment Active 1 APPLIC TOPICAL TWICE A DAY 0 March 09, 2022 1:00am Start: 03-09-2022 Menthol-Zinc O xide (Calmoseptine) 0.44-20.6 % Ointment Active 1 APPLIC TOPICAL TWICE A DAY 0 March 09, 2022 12:00am metoprolol tartrate 25 mg oral tablet (20 sources) beta-Adrenergic Natanael Start: 02-20-2022 End: 03-26-2024 take 1 tablet by mouth twice daily Metoprolol Tartrate 25 mg Tablet Active 25 mg PO TWICE A DAY 0 March 26, 2024 1:00am Start: 02-20-2022 End: 02-20-2022 Metoprolol Tartrate 25 mg Ta blet Discontinued 12.5 mg PO TWICE A DAY 0 February 20, 2022 1:00am February 20, 2022 7:18pm Start: 02-20-2022 End: 02-20-2022 take 12.5 mg by mouth twice daily Metoprolol Tartrate Active 12.5 MG PO TWICE A DAY February 20, 2022 7:18pm Start: 01-28-2022 End: 02-20-2022 Metoprolol Tartrate 50 mg ta blet Discontinued 25 mg PO TWICE A DAY January 28, 2022 9:51pm February 20, 2022 5:50pm Start: 01-28-2022 End: 02-20-2022 take 25 mg by mouth twice daily Metoprolol Tartrate Di scontinued 25 MG PO TWICE A DAY January 28, 2022 9:51pm February 20, 2022 5:50pm Start: 01-22-2022 End: 01-28-2022 take 25 mg by mouth every twelve hours 25 mg, Oral, EVERY 12 HOURS, First dose (after last reorder) on 01/22/22 at 2100, Until Discontinued Hold for HR < 60. Start: 01-22-2022 End: 01-22-2022 take 1 dose by mouth once 25 mg, Oral, ONCE, 1 dose, O n 01/22/22 at 1145 Start: 01-22-2022 End: 01-22-2022 take 12.5 mg by mouth every twelve hours 12.5 mg, Oral, EVERY 12 HOURS, First dose on 01/22/22 at 0900, Until Discontinued Start: 01-21-2022 End: 01-21-2022 5 mg, Intravenous, ONCE, 1 d ose, On 01/21/22 at 2315 Start: 11-05-2021 End: 01-28-2022 take 1 tablet by mouth twice daily Metoprolol Tartrate 50 mg tablet Discontinued 50 mg PO TWICE A DAY November 05, 2021 12:00am January 28, 2022 9:51pm Start: 05-16-2017 End: 11-07-2021 take 1 tablet by mouth twice daily Metoprolol Tartrate 25 mg tablet Discontinued 25 mg PO TWICE A DAY July 24, 2017 10:11am November 07, 2021 8:13am mirtazapine 15 mg oral tablet (20 sources) Start: 03-26-2024 take 1 tablet by mouth at bedtime Mirtazapine 15 mg Tablet Active 15 mg PO AT BEDTIME 0 March 26, 2024 1:00am Start: 03-22-2024 End: 03-26-2024 take 1 tablet by mouth at bedtime Mirtazapine 7.5 mg tablet Discontinued 7.5 mg PO AT BEDTIME March 22, 2024 1:00am March 26, 2024 11:50am Start: 02-20-2022 End: 03-22-2024 take 7.5 mg by mouth at bedtime Mirtazapine 15 mg tabl et Discontinued 7.5 mg PO AT BEDTIME February 20, 2022 7:18pm March 22, 2024 3:40pm Start: 02-20-2022 take 22.5 mg by mout h at bedtime Mirtazapine Active 22.5 MG PO AT BEDTIME February 20, 2022 7:18pm Start: 02-20-2022 End: 02-20-2022 take 1 tablet by mouth at bedtime Mirtazapine 15 mg Tablet Discontinued 15 mg PO AT BEDTIME 0 February 20, 2022 1:00am February 20, 2022 7:18pm Start: 11-18-2021 End: 02-20-2022 take 1 tablet by mouth at bedtime Mirtazapine 7.5 mg tablet Discontinued 7.5 mg PO AT BEDTIME November 18, 2021 12:00am February 20, 2022 5:46pm Multivitamin preparation (20 sources) Start: 04-15-2017 take 1 tablet by mouth once daily Multivitamin Active 1 TABLET PO DAILY April 15, 2017 12:23pm Start: 04-15-2017 End: 02-20-2022 take 1 tablet by mouth once daily Multivitamin Discontinued 1 TABLET PO DAILY April 15, 2017 1:00am February 20, 2022 5:51pm Start: 04-15-2017 End: 02-20-2022 take 1 tablet by mouth once daily Multivitamin Discontinued 1 TABLET PO DAILY April 15, 2017 12:00am February 20, 2022 4:51pm Start: 04-15-2017 take 1 tablet by linda th once daily Multivitamin Active 1 TABLET PO DAILY April 15, 2017 12:00am Start: 04-15-2017 take 1 tablet by linda th once daily Multivitamin Active 1 TABLET PO DAILY April 15, 2017 1:00am Nirmatrelvir-Ritonavir (Paxlovid) 300 mg (150 mg x 2)-100 mg tablets,dose pack (1 source) Start: 03-22-2024 Nirmatrelvir-Ritonavir (Paxlovid) 300 mg (150 mg x 2)-100 mg tablets,dose pack Active 3 {tbl} PO TWICE A DAY March 22, 2024 1:00am for 5 days starting 03/22 nystatin 100 unt/mg topical powder (1 source) Polyene Antifungal Start: 03-26-2024 Nystatin (Nyamyc) 100,000 unit/gram Powder Active 1 NMA TOPICAL TWICE A DAY 0 March 26, 2024 1:00am Please contact the information source for Protocol details. oxybutynin chloride 5 mg oral tablet (2 sources) Cholinergic Muscarinic Antagonist Start: 03-22-2024 End: 03-26-2024 take 1 tablet by mouth once daily Oxybutynin Chloride 5 mg Tablet Active 5 mg PO DAILY 0 March 26, 2024 1:00am pantoprazole 20 mg delayed release oral tablet (20 sources) Proton Pump Inhibitor Start: 03-26-2024 take 1 tablet by mouth once daily Pantoprazole 20 mg Tablet,Delayed Release (Dr/Ec) Active 20 mg PO DAILY 0 March 26, 2024 1:00am Start: 02-20-2022 End: 02-20-2022 take 1 tablet by mouth twice daily Pantoprazole 40 mg Tablet,Delayed Release (Dr/Ec) Discontinued 40 mg PO TWICE A DAY 0 February 20, 2022 1:00am February 20, 2022 7:18pm Start: 11-18-2021 End: 03-22-2024 take 1 tablet by mouth once daily Pantoprazole 40 mg tablet,delayed release (DR/EC) Discontinued 40 mg PO DAILY February 20, 2022 7:18pm March 22, 2024 2:05pm Start: 11-28-2017 End: 11-18-2021 take 1 tablet by mouth every other day Pantoprazole (Protonix) 40 mg tablet,delayed release (DR/EC) Discontinued 40 mg PO EVERY OTHER DAY 90 November 28, 2017 12:00am November 18, 2021 3:50pm Start: 06-16-2014 End: 11-27-2017 take 1 tablet by mouth once daily Pantoprazole 40 MG tablet Discontinued 40 mg PO DAILY June 16, 2014 12:00am November 27, 2017 2:55pm polyethylene glycol 3350 40004 mg powder for oral solution (1 source) Osmotic Laxative Start: 03-22-2024 Polyethylene Glycol 3350 (Miralax) 17 gram/dose powder Active 17 g PO DAILY March 22, 2024 1:00am pramipexole dihydrochloride 0.125 mg oral tablet (11 sources) Nonergot Dopamine Agonist Start: 03-09-2022 End: 03-26-2024 take 1 tablet by mouth at bedtime Pramipexole 0.125 mg Tablet Active 0.125 mg PO AT BEDTIME 0 March 26, 2024 1:00am (1 source) (1 source) Completed/Discontinued Medications Medication Drug Class(es) Dates Sig (Normalized) Sig (Original) albuterol 0.833 mg/ml / ipratropium bromide 0.167 mg/ml inhalation solution (2 sources) Anticholinergic, beta2-Adrenergic Agonist Start: 01-24-2022 End: 01-28-2022 3 mL, Nebulization, EVERY 6 HOURS, First dose (after last modification) on Sun01/25/22 at 1400, Until Discontinued aspirin 81 mg chewable tablet (20 sources) Platelet Aggregation Inhibitor, Nonsteroidal Anti-inflammatory Drug Start: 02-20-2022 End: 03-09-2022 take 1 tablet by mouth at breakfast Aspirin 81 mg tablet,chewable Discontinued 81 mg PO WITH BREAKFAST February 20, 2022 7:18pm March 09, 2022 7:35pm Start: 01-28-2022 End: 02-20-2022 take 1 tablet by mouth once daily Aspirin (Aspir-81) 81 mg Tablet,Delayed Release (Dr/Ec) Discontinued 81 mg PO DAILY January 28, 2022 1:00am February 20, 2022 5:48pm Start: 01-27-2022 End: 02-16-2022 azithromycin 250 mg oral tablet (18 sources) Macrolide Antimicrobial Start: 11-05-2021 End: 01-26-2022 take 1 tablet by mouth once daily Azithromycin 250 mg tablet Discontinued 250 mg PO DAILY November 05, 2021 12:00am November 07, 2021 8:05am bisacodyl 10 mg rectal suppository (12 sources) Stimulant Laxative Start: 02-20-2022 End: 03-09-2022 Bisacodyl 10 mg Suppository Discontinued 10 mg RC .PRN X 1 as needed for Constipation 0 February 20, 2022 1:00am March 09, 2022 7:36pm Start: 01-23-2022 End: 01-28-2022 take 10 mg rectal route once daily as needed for constipation 10 mg, Rectal, DAILY NEEDED, Starting on Sun01/23/22 at 1519, Until 01/28/22 at 2010, Constipation 2nd Line calcium carbonate 648 mg oral tablet (1 source) Start: 01-23-2022 End: 01-28-2022 take 1 tablet by mouth four times daily as needed 1,296 mg (2 tablet), Oral, 4 TIMES DAILY NEEDED, Starting on Sun01/23/22 at 1517, Until 01/28/22 at 2010, Indigestion calcium carbonate 1250 mg / cholecalciferol 200 unt oral tablet (20 sources) Vitamin D Start: 02-20-2022 End: 03-22-2024 Calcium Carbonate-Vitamin D3 (Oyster Shell Calcium-Vit D3) 500 mg-5 mcg (200 unit) tablet Discontinued 1 {tbl} PO WITH BREAKFAST February 20, 2022 7:18pm March 22, 2024 2:05pm Start: 04-15-2017 End: 03-09-2022 Calcium Carbonate-Vitamin D3 1 EACH tablet Discontinued 1 NMA PO DAILY April 15, 2017 1:00am March 09, 2022 7:35pm Start: 04-15-2017 End: 03-09-2022 Calcium Carbonate-Vitamin D3 Discontinued 1 EACH PO DAILY April 15, 2017 1:00am March 09, 2022 7:35pm calcium chloride 0.0014 meq/ ml / potassium chloride 0.004 meq/ml / sodium chloride 0.103 meq/ml / sodium lactate 0.028 meq/ml injectable solution (2 sources) Start: 01-21-2022 End: 01-21-2022 500 mL, Intravenous, ONCE, 1 dose, On 01/21/22 at 2130 Fluid Bolus Start: 01-21-2022 End: 01-22-2022 Intravenous, at 50 mL/hr, CO NTINUOUS, Starting on [facility] 01/21/22 at 2100, Until 01/22/22 at 0659 0.3 ml enoxaparin sodium 100 mg/ml prefilled syringe (1 source) Low Molecular Weight Heparin Start: 01-19-2022 End: 01-28-2022 inject 30 mg by subcutaneous injection once daily 30 mg, Subcutaneous, DAILY EARLY EVENING, First dose on [place] 01/19/22 at 2000, Until Discontinued Indications: DVT/PE prophylaxis famotidine 20 mg oral tablet (1 source) Histamine-2 Receptor Antagonist Start: 01-21-2022 End: 01-28-2022 take 20 mg by mouth every twelve hours 20 mg, Oral, EVERY 12 HOURS, First dose on 01/21/22 at 2100, Until Discontinued ferrous sulfate 325 mg oral tablet (6 sources) Start: 12-30-2022 End: 03-22-2024 take 1 tablet by mouth once daily Ferrous Sulfate (Feosol) 325 mg (65 mg iron) tablet Discontinued 325 mg PO DAILY December 30, 2022 12:00am March 22, 2024 2:05pm fluconazole 100 mg oral tablet (20 sources) Azole Antifungal Start: 02-20-2022 End: 03-09-2022 take 1 tablet by mouth once daily Fluconazole 100 mg tablet Discontinued 100 mg PO DAILY February 20, 2022 7:18pm March 09, 2022 7:36pm Take 1 tab daily and discontinue after the dose on 02/22/22 Food Supplemt, Lactose-Reduced (Ensure Plus High Protein) 0.08 gram-1.5 kcal/mL Liquid (11 sources) Start: 02-20-2022 End: 02-20-2022 Food Supplemt, Lactose-Reduced (Ensure Plus High Protein) 0.08 gram-1.5 kcal/mL Liquid Discontinued 120 mL PO 4 TIMES DAILY 0 February 20, 2022 1:00am February 20, 2022 7:18pm Start: 02-20-2022 End: 02-20-2022 Food Supplemt, Lactose-Reduc ed (Ensure Plus High Protein) 0.08 gram-1.5 kcal/mL Liquid Discontinued 120 ML PO 4 TIMES DAILY 0 February 20, 2022 1:00am February 20, 2022 7:18pm Start: 02-20-2022 End: 02-20-2022 Food Supplemt, Lactose-Reduc ed (Ensure Plus High Protein) 0.08 gram-1.5 kcal/mL Liquid Discontinued 120 ML PO 4 TIMES DAILY 0 February 20, 2022 12:00am February 20, 2022 6:18pm Start: 02-20-2022 Food Supplemt, Lactose-Reduced (Ensure Plus High Protein) 0.08 gram-1.5 kcal/mL Liquid Active 120 ML PO 4 TIMES DAILY 0 February 20, 2022 12:00am Food Supplemt, Lactose-Reduc ed (Ensure Plus High Protein) 0.08 gram-1.5 kcal/mL liquid (10 sources) Start: 02-20-2022 End: 03-09-2022 Food Supplemt, Lactose-Reduc ed (Ensure Plus High Protein) 0.08 gram-1.5 kcal/mL liquid Discontinued 120 mL PO 4 TIMES DAILY February 20, 2022 7:18pm March 09, 2022 7:36pm Start: 02-20-2022 End: 03-09-2022 Food Supplemt, Lactose-Reduc ed (Ensure Plus High Protein) 0.08 gram-1.5 kcal/mL liquid Discontinued 120 ML PO 4 TIMES DAILY February 20, 2022 7:18pm March 09, 2022 7:36pm Start: 02-20-2022 End: 03-09-2022 Food Supplemt, Lactose-Reduc ed (Ensure Plus High Protein) 0.08 gram-1.5 kcal/mL liquid Discontinued 120 ML PO 4 TIMES DAILY February 20, 2022 6:18pm March 09, 2022 6:36pm hydrocortisone acetate 25 mg rectal suppository (6 sources) Corticosteroid Start: 01-02-2023 End: 03-22-2024 Hydrocortisone Acetate 25 mg suppository Discontinued 25 mg RC TWICE A DAY January 02, 2023 12:00am March 22, 2024 2:05pm levoFLOXacin 750 mg oral tablet (16 sources) Quinolone Antimicrobial Start: 11-07-2021 End: 11-18-2021 take 1 tablet by mouth once daily Levofloxacin 750 mg tablet Discontinued 750 mg PO DAILY November 07, 2021 12:00am November 18, 2021 3:48pm Magnesium Hydroxide (11 sources) Start: 02-20-2022 End: 03-09-2022 Magnesium Hydroxide 400 mg/5 mL Suspension Discontinued 30 mL PO .PRN X 1 as needed for Constipation 0 February 20, 2022 1:00am March 09, 2022 7:36pm Start: 02-20-2022 End: 03-09-2022 Magnesium Hydroxide Disconti nued 30 ML PO .PRN X 1 0 February 20, 2022 1:00am March 09, 2022 7:36pm Start: 02-20-2022 End: 03-09-2022 Magnesium Hydroxide Disconti nued 30 ML PO .PRN X 1 0 February 20, 2022 12:00am March 09, 2022 6:36pm Start: 02-20-2022 Magnesium Hydr oxide Active 30 ML PO .PRN X 1 0 February 20, 2022 12:00am melatonin 3 mg oral tablet (20 sources) Start: 02-20-2022 End: 12-30-2022 take 1 tablet by mouth at bedtime Melatonin 3 mg tablet Discontinued 3 mg PO AT BEDTIME February 20, 2022 7:18pm December 30, 2022 4:45pm Start: 11-18-2021 End: 02-20-2022 take 1 capsule by mouth at bedtime Melatonin 3 mg capsule Discontinued 3 mg PO BEDTIME November 18, 2021 12:00am February 20, 2022 5:46pm Multivitamin 1 EACH tablet (1 source) Start: 04-15-2017 End: 02-20-2022 Multivitamin 1 EACH tablet Discontinued 1 {tbl} PO DAILY April 15, 2017 1:00am February 20, 2022 5:51pm Drug Treatment Unknown - unknown (1 source) No information available. omeprazole 20 mg delayed release oral capsule (1 source) Proton Pump Inhibitor Start: 03-22-2024 End: 03-26-2024 take 1 capsule by mouth once daily Omeprazole 20 mg capsule,delayed release(DR/EC) Discontinued 20 mg PO DAILY March 22, 2024 1:00am March 26, 2024 11:50am ramipril 5 mg oral capsule (20 sources) Angiotensin Converting Enzyme Inhibitor Start: 04-16-2017 End: 05-16-2017 take 1 capsule by mouth once daily Ramipril 5 MG capsule Discontinued 5 mg PO DAILY April 16, 2017 1:00am May 16, 2017 4:42pm 12 hr ranolazine 500 mg extended release oral tablet (20 sources) Anti-anginal Start: 11-27-2017 End: 11-27-2017 take 1 tablet by mouth twice daily Ranolazine (Ranexa) 500 mg tablet extended release 12 hr Discontinued 500 mg PO TWICE A DAY November 27, 2017 12:00am November 27, 2017 3:25pm Start: 05-16-2017 End: 06-22-2017 take 1 tablet by mouth every twelve hours Ranolazine (Ranexa) 500 mg tablet extended release 12 hr Discontinued 500 mg PO Q12H 60 May 16, 2017 1:00am June 22, 2017 8:53am do not break, crush, or chew tablet(s) simvastatin 40 mg oral tablet (20 sources) HMG-CoA Reductase Inhibitor Start: 06-14-2014 End: 02-20-2022 take 1 tablet by mouth at bedtime Simvastatin 40 MG tablet Discontinued 40 mg PO AT BEDTIME June 14, 2014 12:00am February 20, 2022 5:47pm End: 01-26-2022 1000 ml sodium chloride 9 mg/ml injection (3 sources) Start: 01-22-2022 End: 01-25-2022 Intravenous, at 20 mL/hr, CONTINUOUS, Starting on 01/22/22 at 1215, Until Sun01/25/22 at 0752 Start: 01-19-2022 End: 01-19-2022 1-100 mL, Intravenous, ONCE NEEDED, 1 dose, Starting on Kalina 01/19/22 at 1734, Until Kalina 01/19/22 at 1734, Flush, CT Procedure Start: 01-19-2022 End: 01-19-2022 Intravenous, at 75 mL/hr, CO NTINUOUS, Starting on Kalina 01/19/22 at 1715, Until Kalina 01/19/22 at 2133 (8 sources) Start: 01-25-2022 End: 01-28-2022 take 10 mg intravenously every hour as needed [Order 1 Start] Name: hydrALAZINE (APRESOLINE) injection 10 mg Signed Summary: 10 mg, Intravenous, EVERY 1 HOUR NEEDED, Starting on Sun01/25/22 at 0105, Until 01/28/22 at 2010, SBP > 160 mmHg, Systolic Blood Pressure greater than 160 mm Hg Use as initial dose. Higher dose may be administered if lower dose was previously documented as ineffective 10 minutes after administration and did not result in adverse effects (HR>90) [Order 1 End] [Order 2 Start] Name: hydrALAZINE (APRESOLINE) injection 20 mg Signed Summary: 20 mg, Intravenous, EVERY 1 HOUR NEEDED, Starting on Sun01/25/22 at 0105, Until 01/28/22 at 2010, SBP > 160 mmHg, Systolic Blood Pressure greater than 160 mm Hg Higher dose may be administered if lower dose was previously documented as ineffective 10 minutes after administration and did not result in adverse effects (HR>90). Decrease back to lower dose if patient has adverse effects, or no PRN used in previous 3 hours [Order 2 End] Start: 01-25-2022 End: 01-28-2022 take 10 mg intravenously every hour as needed [Order 1 Start] Name: labetalol (NORMODYNE) injection 10 mg Signed Summary: 10 mg, Intravenous, EVERY 1 HOUR NEEDED, Starting on Sun01/25/22 at 0105, Until 01/28/22 at 2010, SBP > 160 mmHg with HR >60 bpm Use as initial dose. Higher dose may be administered if lower dose was previously documented as ineffective 10 minutes after administration and did not result in adverse effects (HR<60) For vials: labetalol should be treated as a SINGLE USE VIAL. Discard remaining contents after one use. [Order 1 End] [Order 2 Start] Name: labetalol (NORMODYNE) injection 20 mg Signed Summary: 20 mg, Intravenous, EVERY 1 HOUR NEEDED, Starting on Sun01/25/22 at 0105, Until 01/28/22 at 2011, SBP > 160 mmHg with HR >60 bpm Higher dose may be administered if lower dose was previously documented as ineffective 10 minutes after administration and did not result in adverse effects (HR<60). Decrease back to lower dose if patient has adverse effects, or no PRN used in previous 3 hours For vials: labetalol should be treated as a SINGLE USE VIAL. Discard remaining contents after one use. [Order 2 End] Start: 01-24-2022 End: 01-28-2022 take 1 tablet rectal route once daily [Order 1 Start] Name: aspirin chewable tablet 81 mg Signed Summary: 81 mg, Oral, DAILY, First dose (after last modification) on Sun01/24/22 at 0930, Until Discontinued May begin use of chewable aspirin when patient passes swallow test. [Order 1 End] [Order 2 Start] Name: aspirin suppository 300 mg Signed Summary: 300 mg, Rectal, DAILY, First dose (after last modification) on Sun01/24/22 at 0930, Until Discontinued Use suppository until patient passes swallow test. [Order 2 End] Start: 01-23-2022 End: 01-28-2022 [Order 1 Start] Name: polyet hylene glycol (MIRALAX) packet 17 g Signed Summary: 17 g, Oral, EVERY 12 HOURS, First dose (after last modification) on Sun01/23/22 at 2100, Until Discontinued [Order 1 End] [Order 2 Start] Name: polyethylene glycol (MIRALAX) packet 17 g Signed Summary: 17 g, Per NG tube, EVERY 12 HOURS, First dose (after last modification) on Sun01/23/22 at 2100, Until Discontinued [Order 2 End] Start: 01-20-2022 End: 01-23-2022 Start: 01-20-2022 End: 01-24-2022 Start: 01-19-2022 End: 01-28-2022 [Order 1 Start] Name: senna (SENOKOT) tablet 8.6 mg Signed Summary: 8.6 mg, Oral, DAILY EVERY MORNING, First dose on Kalina 01/19/22 at 1830, Until Discontinued Hold if BM in last 2 hours. [Order 1 End] [Order 2 Start] Name: senna (SENOKOT) tablet 8.6 mg Signed Summary: 8.6 mg, Per NG tube, DAILY EVERY MORNING, First dose on Kalina 01/19/22 at 1830, Until Discontinued Hold if BM in last 2 hours. [Order 2 End] Start: 01-19-2022 End: 01-28-2022 take 325 mg by mouth every four hours as needed [Order 1 Start] Name: acetaminophen (TYLENOL) tablet 325 mg Signed Summary: 325 mg, Oral, EVERY 4 HOURS NEEDED, Starting on Kalina 01/19/22 at 1828, Until 01/28/22 at 2010, Mild Pain, Moderate Pain Maximum dose of acetaminophen is 4000 mg from all sources in 24 hours. [Order 1 End] [Order 2 Start] Name: acetaminophen (TYLENOL) tablet 325 mg Signed Summary: 325 mg, Per NG tube, EVERY 4 HOURS NEEDED, Starting on Kalina 01/19/22 at 1828, Until 01/28/22 at 2010, Mild Pain, Moderate Pain Maximum dose of acetaminophen is 4000 mg from all sources in 24 hours. [Order 2 End] [Order 3 Start] Name: acetaminophen (TYLENOL) tablet 650 mg Signed Summary: 650 mg, Oral, EVERY 4 HOURS NEEDED, Starting on Kalina 01/19/22 at 1828, Until 01/28/22 at 2010, Severe Pain, Oral temp > 99.5 Maximum dose of acetaminophen is 4000 mg from all sources in 24 hours. [Order 3 End] [Order 4 Start] Name: acetaminophen (TYLENOL) tablet 650 mg Signed Summary: 650 mg, Per NG tube, EVERY 4 HOURS NEEDED, Starting on Kalina 01/19/22 at 1828, Until 01/28/22 at 2010, Severe Pain, Oral temp > 99.5 Maximum dose of acetaminophen is 4000 mg from all sources in 24 hours. [Order 4 End] (1 source) Start: 01-19-2022 End: 01-19-2022 1-171 mL, Intravenous, ONCE, 1 dose, On Kalina 01/19/[address] Procedure Problems Active Problems Problem Classification Problem Date Documented Da te Episodic/Chronic Abdominal hernia (20 sources) Hiatal hernia; 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: [Diaphragmatic hernia without obstruction or gangrene] Episodic Acute cerebrovascular disease (20 sources) Occlusion of cerebral artery with stroke; 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: [Cerebral infarction due to unspecified occlusion or stenosis of unspecified cerebral artery] Onset: 2 Chronic Comment on above: 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 Anxiety disorders (20 sources) Mixed anxiety and depressive disorder; 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: [Other specified anxiety disorders] Chronic Calculus of urinary tract (13 sources) Kidney stone; 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: [Calculus of kidney] Episodic Cardiac dysrhythmias (20 sources) Paroxysmal atrial fibrillation; 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: [Paroxysmal atrial fibrillation] Onset: 2 Chronic Comment on above: Was not on anticoagu lation because of some blood in the sputum when she had COVID and a heme + stool in the ED. No cough now and the GI bleeding has been addressed by Dr. Sanon. Anticoagulation was started on 02/15/22. CBC ordered for 02/21/22. Coronary atherosclerosis and other heart disease (20 sources) Acute coronary syndrome; 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: [Acute ischemic heart disease, unspecified] Chronic Comment on above: Minimal on Cath in 2 018 with negative stress in October 2021. Normal EF and severe LAE on ECHO. Deficiency and other anemia (14 sources) Anemia; 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: [Anemia, unspecified] Onset: 2 Episodic Deficiency and other anemia (11 sources) Normocytic normochromic anemia; 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: [Anemia, unspecified] 02-20-2022 Episodic Comment on above: EGD on 02/08/2022 sh owed a medium size hiatal hernia, esophageal stenosis which was dilated, a single bleeding angiodysplastic lesion in the stomach, a few Jono ulcers treated with a heater probe and a single nonbleeding angiodysplastic lesion in the duodenum which was also treated with a heater probe. Diabetes mellitus without complication (12 sources) Impaired glucose tolerance; 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: [Impaired glucose tolerance (oral)] Episodic Diseases of white blood cells (1 source) Elevated white blood cell count, unspecified; 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: [Elevated white blood cell count, unspecified] Onset: 5 Chronic Disorders of lipid metabolism (20 sources) Hyperlipidemia; 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: [Hyperlipidemia, unspecified] Onset: 4 Chronic Esophageal disorders (20 sources) Gastroesophageal reflux disease; 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: [Gastro-esophageal reflux disease without esophagitis] Chronic Essential hypertension (20 sources) Hypertensive disorder; 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: [Essential (primary) hypertension] Onset: 4 Chronic Gastrointestinal hemorrhage (20 sources) Black feces; 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: [Melena] Episodic Headache; including migraine (13 sources) Migraine; 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: [Migraine, unspecified, not intractable, without status migrainosus] Chronic Hemorrhoids (15 sources) External hemorrhoids; 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: [Residual hemorrhoidal skin tags] 11-20-2021 Episodic Malaise and fatigue (20 sources) Left hemiparesis; 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: [Weakness] Episodic Mood disorders (2 sources) Depressive disorder; 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: [Depression] Chronic Mycoses (20 sources) Candidiasis of mouth and esophagus; 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: [Candidal esophagitis] Episodic Comment on above: with suspected esoph agitis Osteoarthritis (13 sources) Osteoarthritis; 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: [Unspecified osteoarthritis, unspecified site] Chronic Osteoporosis (13 sources) Osteoporosis; 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: [Age-related osteoporosis without current pathological fracture] Chronic Other aftercare (16 sources) Drug therapy finding; 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: [air director (current) use of anticoagulants] 11-15-2021 Episodic Other aftercare (2 sources) Other half-way (current) drug therapy; 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: [Other palm gatherer (current) drug therapy] Onset: 5 Episodic Other and ill-defined heart disease (11 sources) Left atrial enlargement; 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: [Cardiomegaly] 02-28-2022 Chronic Other and ill-defined heart disease (1 source) Cardiomegaly; 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: [Cardiomegaly] Chronic Other circulatory disease (11 sources) Orthostatic hypotension; 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: [Orthostatic hypotension] 01-30-2022 Episodic Other circulatory disease (2 sources) Orthostatic hypotension; 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: [Orthostatic hypotension] Episodic Other circulatory disease (1 source) History of cardioembolic stroke; 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: [Personal history of transient ischemic attack (TIA), and cerebral infarction without residual deficits] 03-22-2024 Episodic Other disorders of stomach and duodenum (11 sources) Angiodysplasia of stomach; 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: [Angiodysplasia of stomach and duodenum without bleeding] 02-28-2022 Episodic Other disorders of stomach and duodenum (11 sources) Angiodysplasia of duodenum; 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: [Angiodysplasia of stomach and duodenum without bleeding] 02-28-2022 Episodic Other disorders of stomach and duodenum (2 sources) Angiodysplasia of stomach and duodenum without bleeding; 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: [Angiodysplasia of stomach and duodenum without mention of hemorrhage] Episodic Other gastrointestinal disorders (10 sources) Irritable bowel syndrome; 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: [Irritable bowel syndrome without diarrhea] 03-23-2022 Chronic Other gastrointestinal disorders (3 sources) Irritable bowel syndrome without diarrhea; 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: [Irritable bowel syndrome] Chronic Other gastrointestinal disorders (20 sources) Constipation; 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: [Constipation, unspecified] 02-06-2020 Episodic Other gastrointestinal disorders (11 sources) Dysphagia; 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: [Dysphagia, unspecified] 01-30-2022 Episodic Other gastrointestinal disorders (11 sources) Occult blood in stools; 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: [Other fecal abnormalities] 02-28-2022 Episodic Other gastrointestinal disorders (2 sources) Dysphagia, unspecified; 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: [Dysphagia, unspecified] Episodic Other gastrointestinal disorders (5 sources) Other fecal abnormalities; 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: [Nonspecific abnormal findings in stool contents] Episodic Other hematologic conditions (12 sources) Raised cardiac enzyme or marker; 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: [Other specified abnormalities of plasma proteins] 01-27-2022 Episodic Other lower respiratory disease (20 sources) Hemoptysis; 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: [Hemoptysis] 11-15-2021 Episodic Other lower respiratory disease (14 sources) Dyspnea; 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: [Dyspnea, unspecified] 01-30-2022 Episodic Other lower respiratory disease (6 sources) Dyspnea, unspecified; 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: [Other respiratory abnormalities] Episodic Other lower respiratory disease (5 sources) Hemoptysis; 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: [Hemoptysis, unspecified] Episodic Other lower respiratory disease (2 sources) Hypoxia; 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: [Hypoxemia] 04-03-2024 Episodic Other lower respiratory disease (2 sources) Hypoxemia; 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: [Hypoxemia] Onset: Episodic Other nervous system disorders (10 sources) Expressive dysphasia; 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: [Aphasia] 02-20-2022 Chronic Other nervous system disorders (10 sources) Receptive dysphasia; 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: [Aphasia] 02-20-2022 Chronic Other nervous system disorders (6 sources) Aphasia; 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: [Aphasia] Chronic Other nervous system disorders (1 source) Aphasia 01-30-2022 Chronic Comment on above: receptive and expres sive Other upper respiratory disease (20 sources) Polyp of nasal cavity; 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: [Polyp of nasal cavity] 11-09-2021 Episodic Other upper respiratory disease (5 sources) Polyp of nasal cavity; 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: [Polyp of nasal cavity] Episodic Other upper respiratory infections (20 sources) Chronic sinusitis; 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: [Other chronic sinusitis] Chronic Paralysis (13 sources) Left hemiplegia; 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: [Hemiplegia, unspecified affecting left nondominant side] Chronic Pneumonia (except that caused by tuberculosis or sexually transmitted disease) (20 sources) Pleural effusion associated with pulmonary infection; 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: [Pneumonia, unspecified organism] 11-15-2021 Episodic Residual codes; unclassified (6 sources) H/O: Disorder; 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: [Personal history of other specified conditions] 12-30-2022 Episodic Residual codes; unclassified (3 sources) Personal history of other specified conditions; 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: [Personal history of other specified diseases] 01-02-2023 Episodic Respiratory failure; insufficiency; arrest (adult) (1 source) Acute hypoxemic respiratory failure; 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: [Acute respiratory failure with hypoxia] 03-22-2024 Episodic Unclassified (1 source) Screening mammography ; 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: [Encounter for screening mammogram for malignant neoplasm of breast] Onset: 7 12-14-2016 Unclassified (12 sources) Aphasia; 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: [Aphasia with cerebrovascular accident (CVA)] Unclassified (1 source) Cough, unspecified; 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: [Cough, unspecified] Onset: 5 Viral infection (2 sources) Disease caused by 2019-nCoV; 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: [COVID-19] 04-03-2024 Episodic Viral infection (1 source) COVID-19; 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: [COVID-19] Onset: 5 Past or Other Problems Problem Classification Problem Date Documented Da te Episodic/Chronic Deficiency and other anemia (9 sources) Anemia, unspecified; 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: [Anemia, unspecified] Onset: 5 Episodic Fluid and electrolyte disorders (14 sources) Moderate dehydration; 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: [Dehydration] Onset: 5 Episodic Genitourinary symptoms and ill-defined conditions (1 source) Painful micturition, unspecified; 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: [Painful micturition, unspecified] Onset: 4 Episodic Immunizations and screening for infectious disease (1 source) Encounter for immunization; 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: [Encounter for immunization] Onset: 7 01-11-2017 Episodic Phlebitis; thrombophlebitis and thromboembolism (2 sources) Acute embolism and thrombosis of unspecified deep veins of unspecified lower extremity; 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: [Acute embolism and thrombosis of unspecified deep veins of unspecified lower extremity] Onset: 4 Episodic Residual codes; unclassified (20 sources) History of cardiac catheterization; 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: [Other specified postprocedural states] Onset: 8 11-18-2021 Episodic Comment on above: Mild calcification o f the left main coronary artery. Left anterior descending artery with proximal 30% stenosis in the septal licensed embalmer with 60% ostial stenosisLeft circumflex artery with a proximal 20-30% obtuse marginal vesselSmall dominant right coronary artery with no high-grade stenosisPreserved ejection fraction. Unclassified (1 source) Asymptomatic menopausal state; 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: [Asymptomatic menopausal state] Onset: 7 12-14-2016 Episodic Urinary tract infections (1 source) Urinary tract infection, site not specified; 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: [Urinary tract infection, site not specified] Onset: 5 Episodic Results Test Name Value Interpretation Reference Range Facility Amylaseon 07-17-2024 MELODIE 24 U/L Low 28-100 [facility] Comment on above: Order Comment: 127.1 Performed By: #### L [id number], [id number], L100.0100 #### [facility] [address] [place], [address] CBC W/Diff, Automatedon 05-0 Absolute Lymph 2.85 X10 3/uL Normal 0.83-4.51 [facility] Comment on above: Order Comment: 127.1 Performed By: #### L [id number], [id number], L100.0100 #### [facility] [address] [place], [address] Absolute Neut 4.4 X10 3/uL Normal 2.0-7.7 [facility] Comment on above: Order Comment: 127.1 Performed By: #### L [id number], [id number], L100.0100 #### [facility] [address] [place], [address] Basophils/100 WBC (Bld) 0.8 % Normal 0-1 [facility] Comment on above: Order Comment: 127.1 Performed By: #### L [id number], [id number], L100.0100 #### [facility] [address] [place], [address] Eosinophils/100 WBC (Bld) 3.7 % Normal 0-5 [facility] Comment on above: Order Comment: 127.1 Performed By: #### L [id number], [id number], L100.0100 #### [facility] [address] [place], [address] Erythrocyte distribution width (RBC) [Ratio] 15.9 % High 11.6-14.6 [facility] Comment on above: Order Comment: 127.1 Performed By: #### L [id number], [id number], L100.0100 #### [facility] [address] [place], [address] Hematocrit (Bld) [Volume fraction] 39.6 % Normal 37-47 [facility] Comment on above: Order Comment: 127.1 Performed By: #### L [id number], [id number], L100.0100 #### [facility] [address] [place], [address] Hemoglobin (Bld) [Mass/Vol] 13.0 g/dL Normal 12.0-15.0 [facility] Comment on above: Order Comment: 127.1 Performed By: #### L 501.2400, [id number], L100.0100 #### [facility] [address] [place], [address] IG% 0.300 Normal 0.0-0.9 [facility] Comment on above: Order Comment: 127.1 Result Comment: IG% - Immature Granulocytes (promyelocytes, myelocytes and metamyelocytes) > 1% indicates that a LEFT SHIFT is Present. Performed By: #### L [id number], [id number], L100.0100 #### [facility] [address] [place], [address] Lymphocytes/100 WBC (Bld) 33.2 % Normal 19-41 [facility] Comment on above: Order Comment: 127.1 Performed By: #### L 501.2400, [id number], L100.0100 #### [facility] [address] [place], [address] MCH (RBC) [Entitic mass] 29.5 pg Normal 27.0-32.0 [facility] Comment on above: Order Comment: 127.1 Performed By: #### L 501.2400, [id number], L100.0100 #### [facility] [address] [place], [address] MCHC (RBC) [Mass/Vol] 32.8 g/dL Normal 32-36 [facility] Comment on above: Order Comment: 127.1 Performed By: #### L 501.2400, [id number], L100.0100 #### [facility] [address] [place], [address] MCV (RBC) [Entitic vol] 89.8 fL Normal 81-99 [facility] Comment on above: Order Comment: 127.1 Performed By: #### L 501.2400, [id number], L100.0100 #### [facility] [address] [place], [address] Monocytes/100 WBC (Bld) 10.4 % High 0-10 [facility] Comment on above: Order Comment: 127.1 Performed By: #### L 501.2400, [id number], L100.0100 #### [facility] [address] [place], [address] Neutrophils/100 WBC (Bld) 51.6 % Normal 47-70 [facility] Comment on above: Order Comment: 127.1 Performed By: #### L 501.2400, [id number], L100.0100 #### [facility] [address] [place], [address] Nucleated RBC (Bld) [#/Vol] 0 10*3/uL Normal 0-5 [facility] Comment on above: Order Comment: 127.1 Performed By: #### L 501.2400, [id number], L100.0100 #### [facility] [address] [place], [address] Platelet mean volume (Bld) [Entitic vol] 9.7 fL Normal 6.2-12.0 [facility] Comment on above: Order Comment: 127.1 Performed By: #### L 501.2400, [id number], L100.0100 #### [facility] [address] [place], [address] Platelets (Bld) [#/Vol] 272 10*3/uL Normal 150-450 [facility] Comment on above: Order Comment: 127.1 Performed By: #### L 501.2400, [id number], L100.0100 #### [facility] [address] [place], [address] RBC (Bld) [#/Vol] 4.41 10*6/uL Normal 4.2-5.4 [facility] Comment on above: Order Comment: 127.1 Performed By: #### L 501.2400, [id number], L100.0100 #### [facility] [address] [place], [address] RDW SD 51.5 fl High 35.1-43.9 [facility] Comment on above: Order Comment: 127.1 Performed By: #### L 501.2400, [id number], L100.0100 #### [facility] [address] [place], [address] WBC (Bld) [#/Vol] 8.6 10*3/uL Normal 4.4-11.0 [facility] Comment on above: Order Comment: 127.1 Performed By: #### L 501.2400, [id number], L100.0100 #### [facility] [address] [place], [address] Comprehensive Metabolic Prof [facility] 07-17-2024 Albumin [Mass/Vol] 3.7 g/dL Normal 3.4-4.8 [facility] Comment on above: Order Comment: 127.1 Performed By: #### L 501.2400, [id number], L100.0100 #### [facility] [address] [place], [address] Albumin/Globulin [Mass ratio] 1.0 {ratio} Normal 0.9-2.4 [facility] Comment on above: Order Comment: 127.1 Performed By: #### L 501.2400, [id number], L100.0100 #### [facility] [address] [place], [address] ALK PHOS 127 U/L High 35-104 [facility] Comment on above: Order Comment: 127.1 Performed By: #### L 501.2400, [id number], L100.0100 #### [facility] [address] [place], [address] ALT [Catalytic activity/Vol] 41 U/L High <=34 [facility] Comment on above: Order Comment: 127.1 Performed By: #### L 501.2400, [id number], L100.0100 #### [facility] [address] [place], [address] AST [Catalytic activity/Vol] 42 U/L High <=31 [facility] Comment on above: Order Comment: 127.1 Performed By: #### L 501.2400, [id number], L100.0100 #### [facility] [address] [place], [address] Bilirubin [Mass/Vol] 0.37 mg/dL Normal 0.00-1.30 [facility] Comment on above: Order Comment: 127.1 Performed By: #### L 501.2400, [id number], L100.0100 #### [facility] [address] [place], [address] BUN/CRE 28.4 RATIO High 10-20 [facility] Comment on above: Order Comment: 127.1 Performed By: #### L 501.2400, [id number], L100.0100 #### [facility] [address] [place], [address] Calcium [Mass/Vol] 9.6 mg/dL Normal 7.6-11.0 [facility] Comment on above: Order Comment: 127.1 Performed By: #### L 501.2400, [id number], L100.0100 #### [facility] [address] [place], [address] Chloride [Moles/Vol] 108 mmol/L Normal 98-108 [facility] Comment on above: Order Comment: 127.1 Performed By: #### L 501.2400, [id number], L100.0100 #### [facility] [address] [place], [address] CO2 [Moles/Vol] 19.7 mmol/L Low 21.0-32.0 [facility] Comment on above: Order Comment: 127.1 Performed By: #### L 501.2400, [id number], L100.0100 #### [facility] [address] [place], [address] Creatinine [Mass/Vol] 0.89 mg/dL Normal 0.70-1.20 [facility] Comment on above: Order Comment: 127.1 Performed By: #### L 501.2400, L500.4050, L100.0100 #### [facility] [address] [place], [address] GAP 13 Normal 5-15 [facility] Comment on above: Order Comment: 127.1 Performed By: #### L 501.2400, L500.4050, L100.0100 #### [facility] [address] [place], [address] GFR/1.73 sq M.predicted among non-blacks MDRD (S/P/Bld) [Vol rate/Area] 65 mL/min/{1.73_m2} Normal >60 [facility] Comment on above: Order Comment: 127.1 Result Comment: mL/m in/1.73m2 CKD-EPI Creatinine Equation (2020) Performed By: #### L 501.2400, L500.4050, L100.0100 #### [facility] [address] [place], [address] Globulin (S) [Mass/Vol] 3.8 g/dL Normal 2.2-4.2 [facility] Comment on above: Order Comment: 127.1 Performed By: #### L 501.2400, L500.4050, L100.0100 #### [facility] [address] [place], [address] Glucose [Mass/Vol] 121 mg/dL High 70-99 [facility] Comment on above: Order Comment: 127.1 Performed By: #### L 501.2400, L500.4050, L100.0100 #### [facility] [address] [place], [address] Potassium [Moles/Vol] 3.7 mmol/L Normal 3.3-5.1 [facility] Comment on above: Order Comment: 127.1 Performed By: #### L 501.2400, L500.4050, L100.0100 #### [facility] [address] [place], [address] Sodium [Moles/Vol] 140 mmol/L Normal 133-145 [facility] Comment on above: Order Comment: 127.1 Performed By: #### L 501.2400, L500.4050, L100.0100 #### [facility] [address] [place], [address] T PROT 7.4 g/dL Normal 5.9-8.4 [facility] Comment on above: Order Comment: 127.1 Performed By: #### L 501.2400, L500.4050, L100.0100 #### [facility] [address] [place], [address] Urea nitrogen [Mass/Vol] 25 mg/dL High 4-19 [facility] Comment on above: Order Comment: 127.1 Performed By: #### L 501.2400, L500.4050, L100.0100 #### [facility] [address] [place], [address] Anion gap in Serum or Plasma Ordered By: Edouard Grayson on 06-30-2024 Anion gap [Moles/Vol] 11 mmol/L 5-15 [facility] BUN/creatinine ratioOrdered By: Edouard Grayson on 06-30-2024 Urea nitrogen/Creatinine [Mass ratio] 26.9 mg/mg High 10-20 [facility] Basic Metabolic Profile (BMP )on 06-30-2024 BUN/CRE 26.9 RATIO High 10-20 [facility] Comment on above: Order Comment: 127.1 Performed By: #### L 500.4100, L100.0500, L500.2500 #### [facility] [address] [place], [address] GAP 11 Normal 5-15 [facility] Comment on above: Order Comment: 127.1 Performed By: #### L 500.4100, L100.0500, L500.2500 #### [facility] [address] [place], [address] GFR/1.73 sq M.predicted among non-blacks MDRD (S/P/Bld) [Vol rate/Area] 56 mL/min/{1.73_m2} Low >60 [facility] Comment on above: Order Comment: 127.1 Result Comment: mL/m in/1.73m2 CKD-EPI Creatinine Equation (2020) Performed By: #### L 500.4100, L100.0500, L500.2500 #### [facility] [address] [place], [address] CBC-Complete Blood Cnt No Di ffon 06-30-2024 Erythrocyte distribution width (RBC) [Ratio] 18.1 % High 11.6-14.6 [facility] Comment on above: Order Comment: 127.1 Performed By: #### L 500.4100, L100.0500, L500.2500 #### [facility] [address] [place], [address] Hematocrit (Bld) [Volume fraction] 39.1 % Normal 37-47 [facility] Comment on above: Order Comment: 127.1 Performed By: #### L 500.4100, L100.0500, L500.2500 #### [facility] [address] [place], [address] Hemoglobin (Bld) [Mass/Vol] 12.6 g/dL Normal 12.0-15.0 [facility] Comment on above: Order Comment: 127.1 Performed By: #### L 500.4100, L100.0500, L500.2500 #### [facility] [address] [place], [address] MCH (RBC) [Entitic mass] 29.4 pg Normal 27.0-32.0 [facility] Comment on above: Order Comment: 127.1 Performed By: #### L 500.4100, L100.0500, L500.2500 #### [facility] [address] [place], [address] MCHC (RBC) [Mass/Vol] 32.2 g/dL Normal 32-36 [facility] Comment on above: Order Comment: 127.1 Performed By: #### L 500.4100, L100.0500, L500.2500 #### [facility] [address] [place], [address] MCV (RBC) [Entitic vol] 91.4 fL Normal 81-99 [facility] Comment on above: Order Comment: 127.1 Performed By: #### L 500.4100, L100.0500, L500.2500 #### [facility] [address] [place], [address] Platelet mean volume (Bld) [Entitic vol] 10.4 fL Normal 6.2-12.0 [facility] Comment on above: Order Comment: 127.1 Performed By: #### L 500.4100, L100.0500, L500.2500 #### [facility] [address] [place], [address] Platelets (Bld) [#/Vol] 270 10*3/uL Normal 150-450 [facility] Comment on above: Order Comment: 127.1 Performed By: #### L 500.4100, L100.0500, L500.2500 #### [facility] [address] [place], [address] RBC (Bld) [#/Vol] 4.28 10*6/uL Normal 4.2-5.4 [facility] Comment on above: Order Comment: 127.1 Performed By: #### L 500.4100, L100.0500, L500.2500 #### [facility] [address] [place], [address] RDW SD 60.2 fl High 35.1-43.9 [facility] Comment on above: Order Comment: 127.1 Performed By: #### L 500.4100, L100.0500, L500.2500 #### [facility] [address] [place], [address] WBC (Bld) [#/Vol] 10.8 10*3/uL Normal 4.4-11.0 [facility] Comment on above: Order Comment: 127.1 Performed By: #### L 500.4100, L100.0500, L500.2500 #### [facility] [address] [place], [address] Calculated very low density lipoprotein (VLDL) cholesterol measurementOrdered By: Edouard Grayson on 06-30-2024 VLDL Cholesterol 35 mg/dL 5-40 [facility] Carbon dioxide, total [Moles /volume] in Central venous bloodOrdered By: Edouard Grayson on 06-30-2024 CO2 [Moles/Vol] 22.9 mmol/L Normal 21.0-32.0 [facility] Comment on above: Order Comment: 127.1 Performed By: #### L 500.4100, L100.0500, L500.2500 #### [facility] [address] [place], [address] Chloride assayOrdered By: Genny Grayson on 06-30-2024 Chloride [Moles/Vol] 106 mmol/L Normal 98-108 [facility] Comment on above: Order Comment: 127.1 Performed By: #### L 500.4100, L100.0500, L500.2500 #### [facility] [address] [place], [place], [address] Erythrocyte distribution wid th (RBC) [Ratio]Ordered By: Edouard Grayson on 06-30-2024 Erythrocyte distribution width (RBC) [Entitic vol] 60.2 fL High 35.1-43.9 [facility] Erythrocyte distribution wid th ratioOrdered By: Edouard Grayson on 06-30-2024 Erythrocyte distribution width (RBC) [Ratio] 18.1 % High 11.6-14.6 [facility] GFR/1.73 sq M.predicted leatha g non-blacks MDRD (S/P/Bld) [Vol rate/Area]Ordered By: Edouard Grayson on 06-30-2024 Estimated GFR (MDRD) Non-Af Amer 56 Low >60 [facility] Comment on above: mL/min/1.73m2 CKD-EP I Creatinine Equation (2020) Hematocrit Auto (Bld) [Volum e fraction]Ordered By: Edouard Grayson on 06-30-2024 Hematocrit (Bld) [Volume fraction] 39.1 % 37-47 [facility] Hemoglobin measurementOrdere d By: Edouard Grayson on 06-30-2024 Hemoglobin (Bld) [Mass/Vol] 12.6 g/dL 12.0-15.0 [facility] LDL calc ser/plasOrdered By: Edouard Grayson on 06-30-2024 LDL Cholesterol, Calculated 93 mg/dL [facility] Comment on above: Sgemdrhkkg=309-038 m g/dL & Higher Usng=232 mg/dL or greater Lipid Profileon 06-30-2024 CHOL:HDL 5.23 Normal [facility] Comment on above: Order Comment: 127.1 Performed By: #### L 500.4100, L100.0500, L500.2500 #### [facility] [address] [place], [place], [id number] Cholesterol in LDL [Mass/Vol] 93 mg/dL Normal [facility] Comment on above: Order Comment: 127.1 Result Comment: Bord bypqid=006-126 mg/dL Higher Kjuf=935 mg/dL or greater Performed By: #### L 500.4100, L100.0500, L500.2500 #### [facility] [address] [place], [address] Cholesterol in VLDL [Mass/Vol] 35 mg/dL Normal 5-40 [facility] Comment on above: Order Comment: 127.1 Performed By: #### L 500.4100, L100.0500, L500.2500 #### [facility] [address] [place], [address] MCV (mean corpuscular volume ) determinationOrdered By: Edouard Grayson on 06-30-2024 MCV (RBC) [Entitic vol] 91.4 fL 81-99 [facility] Mean corpuscular hemoglobin (MCH) determinationOrdered By: Edouard Grayson on 06-30-2024 MCH (RBC) [Entitic mass] 29.4 pg 27.0-32.0 [facility] Mean corpuscular hemoglobin concentration (MCHC) determinationOrdered By: Edouard Grayson on 06-30-2024 MCHC (RBC) [Mass/Vol] 32.2 g/dL 32-36 [facility] Mean platelet volume determi nationOrdered By: Edouard Grayson on 06-30-2024 Platelet mean volume (Bld) [Entitic vol] 10.4 fL 6.2-12.0 [facility] Platelet countOrdered By: Genny Grayson on 06-30-2024 Platelets (Bld) [#/Vol] 270 10*3/uL 150-450 [facility] Potassium measurement (mass/ volume)Ordered By: Edouard Grayson on 06-30-2024 Potassium [Moles/Vol] 4.7 mmol/L Normal 3.3-5.1 [facility] Comment on above: Order Comment: 127.1 Performed By: #### L 500.4100, L100.0500, L500.2500 #### [facility] [address] [place], [address] RBC Auto (Bld) [#/Vol]Ordere d By: Edouard Grayson on 06-30-2024 RBC (Bld) [#/Vol] 4.28 10*6/uL 4.2-5.4 [facility] Screening total cholesterol/ high density lipoprotein (HDL) cholesterol ratioOrdered By: Edouard Grayson on 06-30-2024 Cholesterol.total/Lisa sterol in HDL [Mass ratio] 5.23 {ratio} [facility] Serum creatinine measurement (mass/volume)Ordered By: Edouard Grayson on 06-30-2024 Creatinine [Mass/Vol] 1.01 mg/dL Normal 0.70-1.20 [facility] Comment on above: Order Comment: 127.1 Performed By: #### L 500.4100, L100.0500, L500.2500 #### [facility] [address] [place], [address] Serum glucose measurement (m ass/volume)Ordered By: Edouard Grayson on 06-30-2024 Glucose [Mass/Vol] 141 mg/dL High 70-99 [facility] Comment on above: Order Comment: 127.1 Performed By: #### L 500.4100, L100.0500, L500.2500 #### [facility] [address] [place], [address] Serum or plasma calcium jamsin urement (mass/volume)Ordered By: Edouard Grayson on 06-30-2024 Calcium [Mass/Vol] 9.7 mg/dL Normal 7.6-11.0 [facility] Comment on above: Order Comment: 127.1 Performed By: #### L 500.4100, L100.0500, L500.2500 #### [facility] [address] [place], [address] Serum or plasma cholesterol in HDL measurement (mass/volume)Ordered By: Edouard Grayson on 06-30-2024 Cholesterol in HDL [Mass/Vol] 30 mg/dL Low [facility] Comment on above: National Cholesterol Education Program (NCEP) guidelines:<40 mg/dL: Low HDL-cholesterol (major risk factor for CHD)>= 60 mg/dL: High HDL-cholesterol (negative risk factor for CHD)HDL-cholesterol is affected by a number of factors, e.g. smoking, exercise, hormones, sex and age. Order Comment: 127.1 Result Comment: Lois onal Cholesterol Education Program (NCEP) guidelines: <40 mg/dL: Low HDL-cholesterol (major risk factor for CHD) >= 60 mg/dL: High HDL-cholesterol (negative risk factor for CHD) HDL-cholesterol is affected by a number of factors, e.g. smoking, exercise, hormones, sex and age. Performed By: #### L 500.4100, L100.0500, L500.2500 #### [facility] [address] [facility] [address] Serum or plasma cholesterol measurement (mass/volume)Ordered By: Edouard Grayson on 06-30-2024 Cholesterol [Mass/Vol] 158 mg/dL Normal <=200 [facility] Comment on above: Cholesterol level, D esirable <200 mg/dLBorderline high cholesterol 200-239 mg/dLHigh cholesterol >=240 mg/dLRecommendations of the NCEP Adult Treatment Panel for the following risk-cutoff thresholds for the [place] population. Order Comment: 127.1 Result Comment: Chol esterol level, Desirable <200 mg/dL Borderline high cholesterol 200-239 mg/dL High cholesterol >=240 mg/dL Recommendations of the NCEP Adult Treatment Panel for the following risk-cutoff thresholds for the [place] population. Performed By: #### L 500.4100, L100.0500, L500.2500 #### [facility] [address] [place], [address] Serum or plasma urea nitroge n measurement (mass/volume)Ordered By: Edouard Grayson on 06-30-2024 Urea nitrogen [Mass/Vol] 27 mg/dL High 4-19 [facility] Comment on above: Order Comment: 127.1 Performed By: #### L 500.4100, L100.0500, L500.2500 #### [facility] [address] [place], [address] Sodium levelOrdered By: Edouard Grayson on 06-30-2024 Sodium [Moles/Vol] 140 mmol/L Normal 133-145 [facility] Comment on above: Order Comment: 127.1 Performed By: #### L 500.4100, L100.0500, L500.2500 #### [facility] [address] [place], [address] Triglycerides measurementOrd ered By: Edouard Grayson on 06-30-2024 Triglyceride [Mass/Vol] 174 mg/dL Normal [facility] Comment on above: The drugs N-Acetylcy steine and Metamizole may falsely depress this assay. Normal range: <150 mg/dLBorderline High: 150-199 mg/dLHigh: 200-499 mg/dLVery High: >500 mg/dL Order Comment: 127.1 Result Comment: The drugs N-Acetylcysteine and Metamizole may falsely depress this assay. Normal range: <150 mg/dL Borderline High: 150-199 mg/dL High: 200-499 mg/dL Very High: >500 mg/dL Performed By: #### L 500.4100, L100.0500, L500.2500 #### [facility] [address] [place], [address] White blood cell (WBC) count Ordered By: Edouard Grayson on 06-30-2024 WBC (Bld) [#/Vol] 10.8 10*3/uL 4.4-11.0 [facility] CBC-Complete Blood Cnt No Di ffon 04-21-2024 Erythrocyte distribution width (RBC) [Ratio] 21.5 % High 11.6-14.6 [facility] Comment on above: Order Comment: 127.1 Performed By: #### L 100.0500 #### [facility] [address] [place], [address] Hematocrit (Bld) [Volume fraction] 35.8 % Low 37-47 [facility] Comment on above: Order Comment: 127.1 Performed By: #### L 100.0500 #### [facility] [address] [place], [address] Hemoglobin (Bld) [Mass/Vol] 10.7 g/dL Low 12.0-15.0 [facility] Comment on above: Order Comment: 127.1 Performed By: #### L 100.0500 #### [facility] [address] [place], [address] MCH (RBC) [Entitic mass] 24.9 pg Low 27.0-32.0 [facility] Comment on above: Order Comment: 127.1 Performed By: #### L 100.0500 #### [facility] [address] [place], [address] MCHC (RBC) [Mass/Vol] 29.9 g/dL Low 32-36 [facility] Comment on above: Order Comment: 127.1 Performed By: #### L 100.0500 #### [facility] [address] [place], [address] MCV (RBC) [Entitic vol] 83.3 fL Normal 81-99 [facility] Comment on above: Order Comment: 127.1 Performed By: #### L 100.0500 #### [facility] [address] [place], [address] Platelet mean volume (Bld) [Entitic vol] 9.3 fL Normal 6.2-12.0 [facility] Comment on above: Order Comment: 127.1 Performed By: #### L 100.0500 #### [facility] [address] [place], [address] Platelets (Bld) [#/Vol] 502 10*3/uL High 150-450 [facility] Comment on above: Order Comment: 127.1 Performed By: #### L 100.0500 #### [facility] [address] [place], [address] RBC (Bld) [#/Vol] 4.30 10*6/uL Normal 4.2-5.4 [facility] Comment on above: Order Comment: 127.1 Performed By: #### L 100.0500 #### [facility] [address] [place], [address] RDW SD 62.3 fl High 35.1-43.9 [facility] Comment on above: Order Comment: 127.1 Performed By: #### L 100.0500 #### [facility] [address] [place], [address] WBC (Bld) [#/Vol] 11.2 10*3/uL High 4.4-11.0 [facility] Comment on above: Order Comment: 127.1 Performed By: #### L 100.0500 #### [facility] [address] [place], [address] Erythrocyte distribution wid th (RBC) [Ratio]Ordered By: Edouard Grayson on 04-21-2024 Erythrocyte distribution width (RBC) [Entitic vol] 62.3 fL High 35.1-43.9 [facility] Erythrocyte distribution wid th ratioOrdered By: Edouard Grayson on 04-21-2024 Erythrocyte distribution width (RBC) [Ratio] 21.5 % High 11.6-14.6 [facility] Hematocrit Auto (Bld) [Volum e fraction]Ordered By: Edouard Grayson on 04-21-2024 Hematocrit (Bld) [Volume fraction] 35.8 % Low 37-47 [facility] Hemoglobin measurementOrdere d By: Edouard Grayson on 04-21-2024 Hemoglobin (Bld) [Mass/Vol] 10.7 g/dL Low 12.0-15.0 [facility] MCV (mean corpuscular volume ) determinationOrdered By: Edouard Grayson on 04-21-2024 MCV (RBC) [Entitic vol] 83.3 fL 81-99 [facility] Mean corpuscular hemoglobin (MCH) determinationOrdered By: Edouard Grayson on 04-21-2024 MCH (RBC) [Entitic mass] 24.9 pg Low 27.0-32.0 [facility] Mean corpuscular hemoglobin concentration (MCHC) determinationOrdered By: Edouard Grayson on 04-21-2024 MCHC (RBC) [Mass/Vol] 29.9 g/dL Low 32-36 [facility] Mean platelet volume determi nationOrdered By: Edouard Grayson on 04-21-2024 Platelet mean volume (Bld) [Entitic vol] 9.3 fL 6.2-12.0 [facility] Platelet countOrdered By: Genny Grayson on 04-21-2024 Platelets (Bld) [#/Vol] 502 10*3/uL High 150-450 [facility] RBC Auto (Bld) [#/Vol]Ordere d By: Edouard Grayson on 04-21-2024 RBC (Bld) [#/Vol] 4.30 10*6/uL 4.2-5.4 [facility] White blood cell (WBC) count Ordered By: Edouard Grayson on 04-21-2024 WBC (Bld) [#/Vol] 11.2 10*3/uL High 4.4-11.0 [facility] Absolute neutrophil countOrd ered By: Edouard Grayson on 04-11-2024 Neutrophils (Bld) [#/Vol] 7.5 10*3/uL 2.0-7.7 [facility] Basophil percentageOrdered B y: Edouard Grayson on 04-11-2024 Basophils/100 WBC (Bld) 0.3 % 0-1 [facility] CBC W/Diff, Automatedon 03-14 Absolute Lymph 3.05 X10 3/uL Normal 0.83-4.51 [facility] Comment on above: Order Comment: 127.1 Performed By: #### L 501.2400, L500.4050, L100.0100 #### [facility] [address] [place], [address] Absolute Neut 7.5 X10 3/uL Normal 2.0-7.7 [facility] Comment on above: Order Comment: 127.1 Performed By: #### L 501.2400, L500.4050, L100.0100 #### [facility] [address] [place], [address] Basophils/100 WBC (Bld) 0.3 % Normal 0-1 [facility] Comment on above: Order Comment: 127.1 Performed By: #### L 501.2400, L500.4050, L100.0100 #### [facility] [address] [place], [address] Eosinophils/100 WBC (Bld) 2.2 % Normal 0-5 [facility] Comment on above: Order Comment: 127.1 Performed By: #### L 501.2400, L500.4050, L100.0100 #### [facility] [address] [place], [address] Erythrocyte distribution width (RBC) [Ratio] 18.6 % High 11.6-14.6 [facility] Comment on above: Order Comment: 127.1 Performed By: #### L 501.2400, L500.4050, L100.0100 #### [facility] [address] [place], [address] Hematocrit (Bld) [Volume fraction] 28.0 % Low 37-47 [facility] Comment on above: Order Comment: 127.1 Performed By: #### L 501.2400, L500.4050, L100.0100 #### [facility] [address] [place], [address] Hemoglobin (Bld) [Mass/Vol] 8.5 g/dL Low 12.0-15.0 [facility] Comment on above: Order Comment: 127.1 Performed By: #### L 501.2400, L500.4050, L100.0100 #### [facility] [address] [place], [address] IG% 0.600 Normal 0.0-0.9 [facility] Comment on above: Order Comment: 127.1 Result Comment: IG% - Immature Granulocytes (promyelocytes, myelocytes and metamyelocytes) > 1% indicates that a LEFT SHIFT is Present. Performed By: #### L 501.2400, L500.4050, L100.0100 #### [facility] [address] [place], [address] Lymphocytes/100 WBC (Bld) 25.8 % Normal 19-41 [facility] Comment on above: Order Comment: 127.1 Performed By: #### L 501.2400, L500.4050, L100.0100 #### [facility] [address] [place], [address] MCH (RBC) [Entitic mass] 23.7 pg Low 27.0-32.0 [facility] Comment on above: Order Comment: 127.1 Performed By: #### L 501.2400, L500.4050, L100.0100 #### [facility] [address] [place], [address] MCHC (RBC) [Mass/Vol] 30.4 g/dL Low 32-36 [facility] Comment on above: Order Comment: 127.1 Performed By: #### L 501.2400, L500.4050, L100.0100 #### [facility] [address] [place], [address] MCV (RBC) [Entitic vol] 78.2 fL Low 81-99 [facility] Comment on above: Order Comment: 127.1 Performed By: #### L 501.2400, L500.4050, L100.0100 #### [facility] [address] [place], [address] Monocytes/100 WBC (Bld) 7.5 % Normal 0-10 [facility] Comment on above: Order Comment: 127.1 Performed By: #### L 501.2400, L500.4050, L100.0100 #### [facility] [address] [place], [address] Neutrophils/100 WBC (Bld) 63.6 % Normal 47-70 [facility] Comment on above: Order Comment: 127.1 Performed By: #### L 501.2400, L500.4050, L100.0100 #### [facility] [address] [place], [address] Nucleated RBC (Bld) [#/Vol] 0 10*3/uL Normal 0-5 [facility] Comment on above: Order Comment: 127.1 Performed By: #### L 501.2400, L500.4050, L100.0100 #### [facility] [address] [place], [address] Platelet mean volume (Bld) [Entitic vol] 9.7 fL Normal 6.2-12.0 [facility] Comment on above: Order Comment: 127.1 Performed By: #### L 501.2400, L500.4050, L100.0100 #### [facility] [address] [place], [address] Platelets (Bld) [#/Vol] 345 10*3/uL Normal 150-450 [facility] Comment on above: Order Comment: 127.1 Performed By: #### L 501.2400, L500.4050, L100.0100 #### [facility] [address] [place], [address] RBC (Bld) [#/Vol] 3.58 10*6/uL Low 4.2-5.4 [facility] Comment on above: Order Comment: 127.1 Performed By: #### L 501.2400, L500.4050, L100.0100 #### [facility] [address] [place], [address] RDW SD 50.9 fl High 35.1-43.9 [facility] Comment on above: Order Comment: 127.1 Performed By: #### L 501.2400, L500.4050, L100.0100 #### [facility] [address] [place], [address] WBC (Bld) [#/Vol] 11.8 10*3/uL High 4.4-11.0 [facility] [facility] Comment on above: Order Comment: 127.1 Performed By: #### L 501.8790, L500.4050, L100.0100 #### [facility] [place], [address] Eosinophil percentageOrdered By: Edouard Grayson on 04-11-2024 Eosinophils/100 WBC (Bld) 2.2 % 0-5 [facility] Erythrocyte distribution wid th (RBC) [Ratio]Ordered By: Edouard Grayson on 04-11-2024 Erythrocyte distribution width (RBC) [Entitic vol] 50.9 fL High 35.1-43.9 [facility] Erythrocyte distribution wid th ratioOrdered By: Edouard Grayson on 04-11-2024 Erythrocyte distribution width (RBC) [Ratio] 18.6 % High 11.6-14.6 [facility] Hematocrit Auto (Bld) [Volum e fraction]Ordered By: Edouard Grayson on 04-11-2024 Hematocrit (Bld) [Volume fraction] 28.0 % Low 37-47 [facility] Hemoglobin measurementOrdere d By: Edouard Grayson on 04-11-2024 Hemoglobin (Bld) [Mass/Vol] 8.5 g/dL Low 12.0-15.0 [facility] Immature granulocytes/100 WB C Auto (Bld)Ordered By: Edouard Grayson on 04-11-2024 Immature granulocytes/100 WBC (Bld) 0.600 % 0.0-0.9 [facility] Comment on above: IG% - Immature Granu locytes (promyelocytes, myelocytes and metamyelocytes) > 1% indicates that a LEFT SHIFT is Present. Lymphocytes Auto (Unsp spec) [#/Vol]Ordered By: Edouard Grayson on 04-11-2024 Lymphocytes (Bld) [#/Vol] 3.05 10*3/uL 0.83-4.51 [facility] Lymphocytes/100 WBC Auto (Un sp spec)Ordered By: Edouard Grayson on 04-11-2024 Lymphocytes/100 WBC (Bld) 25.8 % 19-41 [facility] MCV (mean corpuscular volume ) determinationOrdered By: Edouard Grayson on 04-11-2024 MCV (RBC) [Entitic vol] 78.2 fL Low 81-99 [facility] Mean corpuscular hemoglobin (MCH) determinationOrdered By: Edouard Grayson on 04-11-2024 MCH (RBC) [Entitic mass] 23.7 pg Low 27.0-32.0 [facility] Mean corpuscular hemoglobin concentration (MCHC) determinationOrdered By: Edouard Grayson on 04-11-2024 MCHC (RBC) [Mass/Vol] 30.4 g/dL Low 32-36 [facility] Mean platelet volume determi nationOrdered By: Edouard Grayson on 04-11-2024 Platelet mean volume (Bld) [Entitic vol] 9.7 fL 6.2-12.0 [facility] Monocyte percentageOrdered B y: Edouard Grayson on 04-11-2024 Monocytes/100 WBC (Bld) 7.5 % 0-10 [facility] Neutrophil percentageOrdered By: Edouard Grayson on 04-11-2024 Neutrophils/100 WBC (Bld) 63.6 % 47-70 [facility] Nucleated red blood cell per centageOrdered By: Edouard Grayson on 04-11-2024 Nucleated RBC/100 WBC (Bld) [Ratio] 0 % 0-5 [facility] Platelet countOrdered By: Genny Grayson on 04-11-2024 Platelets (Bld) [#/Vol] 345 10*3/uL 150-450 [facility] RBC Auto (Bld) [#/Vol]Ordere d By: Edouard Grayson on 04-11-2024 RBC (Bld) [#/Vol] 3.58 10*6/uL Low 4.2-5.4 [facility] White blood cell (WBC) count Ordered By: Edouard Grayson on 04-11-2024 WBC (Bld) [#/Vol] 11.8 10*3/uL High 4.4-11.0 [facility] CBC W/Diff, Automatedon 03-13 PATH REV Reviewed Normal [facility] Comment on above: Order Comment: 127.1 Result Comment: Leuk ocytosis. Microcytic anemia. Clinical correlation necessary. Praveen Chacon M.D. 04/07/24 AMENDED REPORT 04/07/24 1613 PATH REV previously reported as: July Performed By: #### L 501.2400, L500.4050, L100.0100 #### [facility] [address] [place], [address] Absolute neutrophil countOrd ered By: Edouard Grayson on 04-04-2024 Neutrophils (Bld) [#/Vol] 10.9 10*3/uL High 2.0-7.7 [facility] Basic Metabolic Profile (BMP )on 04-04-2024 BUN/CRE 19.5 RATIO Normal 10-20 [facility] Comment on above: Order Comment: 127.1 Performed By: #### L 501.2400, L500.4050, L100.0100 #### [facility] [address] [place], [address] CA,Total 9.0 mg/dL Normal 8.5-10.1 [facility] Comment on above: Order Comment: 127.1 Performed By: #### L 501.2400, L500.4050, L100.0100 #### [facility] [address] [place], [address] Chloride [Moles/Vol] 106 mmol/L Normal 98-107 [facility] Comment on above: Order Comment: 127.1 Performed By: #### L 501.2400, L500.4050, L100.0100 #### [facility] [address] [place], [address] CO2 [Moles/Vol] 23.0 mmol/L Normal 21.0-32.0 [facility] Comment on above: Order Comment: 127.1 Performed By: #### L 501.2400, L500.4050, L100.0100 #### [facility] [address] [place], [address] Creatinine [Mass/Vol] 1.18 mg/dL High 0.55-1.02 [facility] Comment on above: Order Comment: 127.1 Result Comment: The validity of the calculated GFR GFRAA in patients over 70 years has not been determined. Clinical correlation is essential. Performed By: #### L 501.2400, L500.4050, L100.0100 #### [facility] [address] [place], [address] EST GFR - AA 56 mL/min Low >60 [facility] Comment on above: Order Comment: 127.1 Result Comment: Afri can German GFR Calc Performed By: #### L 501.2400, L500.4050, L100.0100 #### [facility] [address] [place], [address] GAP 6 Normal 5-15 [facility] Comment on above: Order Comment: 127.1 Performed By: #### L 501.2400, L500.4050, L100.0100 #### [facility] [address] [place], [address] GFR/1.73 sq M.predicted among non-blacks MDRD (S/P/Bld) [Vol rate/Area] 47 mL/min/{1.73_m2} Low >60 [facility] Comment on above: Order Comment: 127.1 Result Comment: Non- GFR Calc Performed By: #### L 501.2400, L500.4050, L100.0100 #### [facility] [address] [place], [address] Glucose [Mass/Vol] 134 mg/dL High 74-106 [facility] Comment on above: Order Comment: 127.1 Result Comment: Fast ing Glucose result greater than or equal to 126 mg/dL suggests DIABETES MELLITUS per A.D.A. criteria. Performed By: #### L 501.2400, L500.4050, L100.0100 #### [facility] [address] [place], [address] Potassium [Moles/Vol] 4.3 mmol/L Normal 3.5-5.1 [facility] Comment on above: Order Comment: 127.1 Performed By: #### L 501.2400, L500.4050, L100.0100 #### [facility] [address] [place], [address] Sodium [Moles/Vol] 135 mmol/L Low 136-145 [facility] Comment on above: Order Comment: 127.1 Performed By: #### L 501.2400, L500.4050, L100.0100 #### [facility] [address] [place], [address] Urea nitrogen [Mass/Vol] 23 mg/dL High 7-18 [facility] Comment on above: Order Comment: 127.1 Performed By: #### L 501.2400, L500.4050, L100.0100 #### [facility] [address] [place], [address] Basophil percentageOrdered B y: Edouard Grayson on 04-04-2024 Basophils/100 WBC (Bld) 0.2 % 0-1 [facility] Blood urea nitrogen (BUN)/cr eatinine ratioOrdered By: Edouard Grayson on 04-04-2024 Urea nitrogen/Creatinine [Mass ratio] 19.5 mg/mg 10-20 [facility] Carbon dioxide measurementOr dered By: Edouard Grayson on 04-04-2024 CO2 [Moles/Vol] 23.0 mmol/L 21.0-32.0 [facility] Chloride measurementOrdered By: Edouard Grayson on 04-04-2024 Chloride [Moles/Vol] 106 mmol/L 98-107 [facility] Eosinophil percentageOrdered By: Edouard Grayson on 04-04-2024 Eosinophils/100 WBC (Bld) 1.7 % 0-5 [facility] Erythrocyte distribution wid th (RBC) [Ratio]Ordered By: Edouard Grayson on 04-04-2024 Erythrocyte distribution width (RBC) [Entitic vol] 48.5 fL High 35.1-43.9 [facility] Erythrocyte distribution wid th ratioOrdered By: Edouard Grayson on 04-04-2024 Erythrocyte distribution width (RBC) [Ratio] 18.0 % High 11.6-14.6 [facility] Estimated glomerular filtrat ion rate (GFR) AmericanOrdered By: Edouard Grayson on 04-04-2024 Estimated GFR (MDRD) Amer 56 mL/min Low >60 [facility] Comment on above: GFR Calc Glomerular filtration rate ( GFR) estimationOrdered By: Edouard Grayson on 04-04-2024 Estimated GFR (MDRD) Non-Af Amer 47 mL/min Low >60 [facility] Comment on above: Non- GFR Calc Glucose measurementOrdered B y: Edouard Grayson on 04-04-2024 Glucose [Mass/Vol] 134 mg/dL High 74-106 [facility] Comment on above: Fasting Glucose resu lt greater than or equal to 126 mg/dL suggests DIABETES MELLITUS per A.D.A. criteria. Hematocrit Auto (Bld) [Volum e fraction]Ordered By: Edouard Grayson on 04-04-2024 Hematocrit (Bld) [Volume fraction] 29.6 % Low 37-47 [facility] Hemoglobin measurementOrdere d By: Edouard Grayson on 04-04-2024 Hemoglobin (Bld) [Mass/Vol] 9.3 g/dL Low 12.0-15.0 [facility] Immature granulocytes/100 WB C Auto (Bld)Ordered By: Edouard Grayson on 04-04-2024 Immature granulocytes/100 WBC (Bld) 0.700 % 0.0-0.9 [facility] Comment on above: IG% - Immature Granu locytes (promyelocytes, myelocytes and metamyelocytes) > 1% indicates that a LEFT SHIFT is Present. Lymphocytes Auto (Unsp spec) [#/Vol]Ordered By: Edouard Grayson on 04-04-2024 Lymphocytes (Bld) [#/Vol] 3.65 10*3/uL 0.83-4.51 [facility] Lymphocytes/100 WBC Auto (Un sp spec)Ordered By: Edouard Grayson on 04-04-2024 Lymphocytes/100 WBC (Bld) 22.1 % 19-41 [facility] MCV (mean corpuscular volume ) determinationOrdered By: Edouard Grayson on 04-04-2024 MCV (RBC) [Entitic vol] 76.9 fL Low 81-99 [facility] Manual differential comment Zackary (Bld) [Interp]Ordered By: Edouard Grayson on 04-04-2024 Differential Comment COMMENT [facility] Comment on above: MONOCYTOSIS. Mean corpuscular hemoglobin (MCH) determinationOrdered By: Edouard Grayson on 04-04-2024 MCH (RBC) [Entitic mass] 24.2 pg Low 27.0-32.0 [facility] Mean corpuscular hemoglobin concentration (MCHC) determinationOrdered By: Edouard Grayson on 04-04-2024 MCHC (RBC) [Mass/Vol] 31.4 g/dL Low 32-36 [facility] Mean platelet volume determi nationOrdered By: Edouard Grayson on 04-04-2024 Platelet mean volume (Bld) [Entitic vol] 10.5 fL 6.2-12.0 [facility] Monocyte percentageOrdered B y: Edouard Grayson on 04-04-2024 Monocytes/100 WBC (Bld) 9.2 % 0-10 [facility] Neutrophil percentageOrdered By: Edouard Grayson on 04-04-2024 Neutrophils/100 WBC (Bld) 66.1 % 47-70 [facility] Nucleated red blood cell per centageOrdered By: Edouard Grayson on 04-04-2024 Nucleated RBC/100 WBC (Bld) [Ratio] 0 % 0-5 [facility] Pathologist review Zackary (Unsp spec) [Interp]Ordered By: Edouard Grayson on 04-04-2024 Differential Pathologist's Review Reviewed [facility] Comment on above: Previous reported re sult: Malina morillo Edited by: JEANETH on 04/07/24:1613Leukocytosis.Microcytic anemia.Clinical correlation necessary.Praveen Chacon M.D. 04/07/24 AMENDED REPORT 04/07/24 1613 PATH REV previously reported as: Malina morillo Platelet countOrdered By: Genny Grayson on 04-04-2024 Platelets (Bld) [#/Vol] 250 10*3/uL 150-450 [facility] Potassium measurementOrdered By: Edouard Grayson on 04-04-2024 Potassium [Moles/Vol] 4.3 mmol/L 3.5-5.1 [facility] RBC Auto (Bld) [#/Vol]Ordere d By: Edouard Grayson on 04-04-2024 RBC (Bld) [#/Vol] 3.85 10*6/uL Low 4.2-5.4 [facility] Serum anion gap measurementO rdered By: Edouard Grayson on 04-04-2024 Anion gap [Moles/Vol] 6 mmol/L 5-15 [facility] Serum or plasma calcium jasmin urement (mass/volume)Ordered By: Edouard Grayson on 04-04-2024 Calcium [Mass/Vol] 9.0 mg/dL 8.5-10.1 [facility] Serum or plasma creatinine m easurement (mass/volume)Ordered By: Edouard Grayson on 04-04-2024 Creatinine [Mass/Vol] 1.18 mg/dL High 0.55-1.02 [facility] Comment on above: The validity of the calculated GFR & GFRAA in patients over 70 years has not been determined. Clinical correlation is essential. Serum or plasma urea nitroge n measurement (mass/volume)Ordered By: Edouard Grayson on 04-04-2024 Urea nitrogen [Mass/Vol] 23 mg/dL High 7-18 [facility] Sodium levelOrdered By: Edouard Grayson on 04-04-2024 Sodium [Moles/Vol] 135 mmol/L Low 136-145 [facility] White blood cell (WBC) count Ordered By: Edouard Grayson on 04-04-2024 WBC (Bld) [#/Vol] 16.5 10*3/uL High 4.4-11.0 [facility] Urine Cultureon 04-03-2024 URC Presumptive C albicans [place] Count 11,000-25,000 Normal [facility] Comment on above: Performed By: #### L 501.2400, L500.4050, L100.0100 #### [facility] [address] [place], [place], [id number] Urinalysis, Completeon 04-01 BACTERIA RARE Normal None Seen [facility] Comment on above: Order Comment: 127.1 Performed By: #### L 501.2400, L500.4050, L100.0100 #### [facility] [address] [place], [address] YEAST 1+ /hpf Normal None Seen [facility] Comment on above: Order Comment: 127.1 Performed By: #### L 501.2400, L500.4050, L100.0100 #### [facility] [address] [place], [address] EPI,SQUAMOUS 0-5 SEEN Normal 5-10 [facility] Comment on above: Order Comment: 127.1 Performed By: #### L 501.2400, L500.4050, L100.0100 #### [facility] [address] [place], [address] RBC 0-5 SEEN Normal 0-5 [facility] Comment on above: Order Comment: 127.1 Performed By: #### L 501.2400, L500.4050, L100.0100 #### [facility] [address] [place], [address] WBC 10-25 SEEN Normal 0-5 [facility] Comment on above: Order Comment: 127.1 Performed By: #### L 501.2400, L500.4050, L100.0100 #### [facility] [address] [place], [address] Mucus Ql (Urine sed) 0 SEEN Normal [facility] Comment on above: Order Comment: 127.1 Performed By: #### L 501.2400, L500.4050, L100.0100 #### [facility] [address] [place], [address] Bacteria LM.HPF (Urine sed) [#/Area]Ordered By: Edouard Grayson on 03-31-2024 Urine Bacteria RARE /hpf None Seen [facility] Basic Metabolic Profile (BMP )on 03-31-2024 BUN/CRE 35.6 RATIO High 10-20 [facility] Comment on above: Order Comment: 127.1 Performed By: #### L 501.2400, L500.4050, L100.0100 #### [facility] [address] [place], [address] CA,Total 9.3 mg/dL Normal 8.5-10.1 [facility] Comment on above: Order Comment: 127.1 Performed By: #### L 501.2400, L500.4050, L100.0100 #### [facility] [address] [place], [address] Chloride [Moles/Vol] 109 mmol/L High 98-107 [facility] Comment on above: Order Comment: 127.1 Performed By: #### L 501.2400, L500.4050, L100.0100 #### [facility] [address] [place], [address] CO2 [Moles/Vol] 27.0 mmol/L Normal 21.0-32.0 [facility] Comment on above: Order Comment: 127.1 Performed By: #### L 501.2400, L500.4050, L100.0100 #### [facility] [address] [place], [address] Creatinine [Mass/Vol] 1.01 mg/dL Normal 0.55-1.02 [facility] Comment on above: Order Comment: 127.1 Result Comment: The validity of the calculated GFR GFRAA in patients over 70 years has not been determined. Clinical correlation is essential. Performed By: #### L 501.2400, L500.4050, L100.0100 #### [facility] [address] [place], [address] EST GFR - AA 68 mL/min Normal >60 [facility] Comment on above: Order Comment: 127.1 Result Comment: Afri can German GFR Calc Performed By: #### L 501.2400, L500.4050, L100.0100 #### [facility] [address] [place], [address] GAP 5 Normal 5-15 [facility] Comment on above: Order Comment: 127.1 Performed By: #### L 501.2400, L500.4050, L100.0100 #### [facility] [address] [place], [address] GFR/1.73 sq M.predicted among non-blacks MDRD (S/P/Bld) [Vol rate/Area] 56 mL/min/{1.73_m2} Low >60 [facility] Comment on above: Order Comment: 127.1 Result Comment: Non- GFR Calc Performed By: #### L 501.2400, L500.4050, L100.0100 #### [facility] [address] [place], [address] Glucose [Mass/Vol] 180 mg/dL High 74-106 [facility] Comment on above: Order Comment: 127.1 Result Comment: Fast ing Glucose result greater than or equal to 126 mg/dL suggests DIABETES MELLITUS per A.D.A. criteria. Performed By: #### L 501.2400, L500.4050, L100.0100 #### [facility] [address] [place], [address] Potassium [Moles/Vol] 3.9 mmol/L Normal 3.5-5.1 [facility] Comment on above: Order Comment: 127.1 Performed By: #### L 501.2400, L500.4050, L100.0100 #### [facility] [address] [place], [address] Sodium [Moles/Vol] 141 mmol/L Normal 136-145 [facility] Comment on above: Order Comment: 127.1 Performed By: #### L 501.2400, L500.4050, L100.0100 #### [facility] [address] [place], [address] Urea nitrogen [Mass/Vol] 36 mg/dL High 7-18 [facility] Comment on above: Order Comment: 127.1 Performed By: #### L 501.2400, L500.4050, L100.0100 #### [facility] [address] [place], [address] Bilirubin Test strip Ql (U)O rdered By: Edouard Grayson on 03-31-2024 Bilirubin Ql (U) Negative Negative [facility] Blood urea nitrogen (BUN)/cr eatinine ratioOrdered By: Edouard Grayson on 03-31-2024 Urea nitrogen/Creatinine [Mass ratio] 35.6 mg/mg High 10-20 [facility] CBC-Complete Blood Cnt No Di ffon 03-31-2024 Erythrocyte distribution width (RBC) [Ratio] 17.4 % High 11.6-14.6 [facility] Comment on above: Order Comment: 127.1 Performed By: #### L 501.2400, L500.4050, L100.0100 #### [facility] [address] [place], [address] Hematocrit (Bld) [Volume fraction] 33.7 % Low 37-47 [facility] Comment on above: Order Comment: 127.1 Performed By: #### L 501.2400, L500.4050, L100.0100 #### [facility] [address] [place], [address] Hemoglobin (Bld) [Mass/Vol] 10.5 g/dL Low 12.0-15.0 [facility] Comment on above: Order Comment: 127.1 Performed By: #### L 501.2400, L500.4050, L100.0100 #### [facility] [address] [place], [address] MCH (RBC) [Entitic mass] 24.2 pg Low 27.0-32.0 [facility] Comment on above: Order Comment: 127.1 Performed By: #### L 501.2400, L500.4050, L100.0100 #### [facility] [address] [place], [address] MCHC (RBC) [Mass/Vol] 31.2 g/dL Low 32-36 [facility] Comment on above: Order Comment: 127.1 Performed By: #### L 501.2400, L500.4050, L100.0100 #### [facility] [address] [place], [address] MCV (RBC) [Entitic vol] 77.8 fL Low 81-99 [facility] Comment on above: Order Comment: 127.1 Performed By: #### L 501.2400, L500.4050, L100.0100 #### [facility] [address] [place], [address] Platelet mean volume (Bld) [Entitic vol] 10.2 fL Normal 6.2-12.0 [facility] Comment on above: Order Comment: 127.1 Performed By: #### L 501.2400, L500.4050, L100.0100 #### [facility] [address] [place], [address] Platelets (Bld) [#/Vol] 360 10*3/uL Normal 150-450 [facility] Comment on above: Order Comment: 127.1 Performed By: #### L 501.2400, L500.4050, L100.0100 #### [facility] [address] [place], [address] RBC (Bld) [#/Vol] 4.33 10*6/uL Normal 4.2-5.4 [facility] Comment on above: Order Comment: 127.1 Performed By: #### L 501.2400, L500.4050, L100.0100 #### [facility] [address] [place], [address] RDW SD 48.6 fl High 35.1-43.9 [facility] Comment on above: Order Comment: 127.1 Performed By: #### L 501.2400, L500.4050, L100.0100 #### [facility] [address] [place], [address] WBC (Bld) [#/Vol] 23.0 10*3/uL High 4.4-11.0 [facility] Comment on above: Order Comment: 127.1 Performed By: #### L 501.2400, L500.4050, L100.0100 #### [facility] [address], [address] Carbon dioxide measurementOr dered By: Edouard Grayson on 03-31-2024 CO2 [Moles/Vol] 27.0 mmol/L 21.0-32.0 [facility] Chloride measurementOrdered By: Edouard Grayson on 03-31-2024 Chloride [Moles/Vol] 109 mmol/L High 98-107 [facility] Epithelial cells.squamous LM Ql (Urine sed)Ordered By: Edouard Grayson on 03-31-2024 Epithelial cells.squamous LM.HPF (Urine sed) [#/Area] 0 /[HPF] 5-10 [facility] Erythrocyte distribution wid th (RBC) [Ratio]Ordered By: Edouard Grayson on 03-31-2024 Erythrocyte distribution width (RBC) [Entitic vol] 48.6 fL High 35.1-43.9 [facility] Erythrocyte distribution wid th ratioOrdered By: Edouard Grayson on 03-31-2024 Erythrocyte distribution width (RBC) [Ratio] 17.4 % High 11.6-14.6 [facility] Estimated glomerular filtrat ion rate (GFR) AmericanOrdered By: Edouard Grayson on 03-31-2024 Estimated GFR (MDRD) Amer 68 mL/min >60 [facility] Comment on above: GFR Calc Glomerular filtration rate ( GFR) estimationOrdered By: Edouard Grayson on 03-31-2024 Estimated GFR (MDRD) Non-Af Amer 56 mL/min Low >60 [facility] Comment on above: Non- GFR Calc Glucose Ql (U)Ordered By: Genny Grayson on 03-31-2024 Glucose (U) [Mass/Vol] 250 mg/dL High Normal [facility] Glucose measurementOrdered B y: Edouard Grayson on 03-31-2024 Glucose [Mass/Vol] 180 mg/dL High 74-106 [facility] Comment on above: Fasting Glucose resu lt greater than or equal to 126 mg/dL suggests DIABETES MELLITUS per A.D.A. criteria. Hematocrit Auto (Bld) [Volum e fraction]Ordered By: Edouadr Grayson on 03-31-2024 Hematocrit (Bld) [Volume fraction] 33.7 % Low 37-47 [facility] Hemoglobin measurementOrdere d By: Edouard Grayson on 03-31-2024 Hemoglobin (Bld) [Mass/Vol] 10.5 g/dL Low 12.0-15.0 [facility] Ketones Test strip Ql (U)Ord ered By: Edouard Grayson on 03-31-2024 Ketones Ql (U) Negative Negative [facility] MCV (mean corpuscular volume ) determinationOrdered By: Edouard Grayson on 03-31-2024 MCV (RBC) [Entitic vol] 77.8 fL Low 81-99 [facility] Mean corpuscular hemoglobin (MCH) determinationOrdered By: Edouard Grayson on 03-31-2024 MCH (RBC) [Entitic mass] 24.2 pg Low 27.0-32.0 [facility] Mean corpuscular hemoglobin concentration (MCHC) determinationOrdered By: Edouard Grayson on 03-31-2024 MCHC (RBC) [Mass/Vol] 31.2 g/dL Low 32-36 [facility] Mean platelet volume determi nationOrdered By: Edouard Grayson on 03-31-2024 Platelet mean volume (Bld) [Entitic vol] 10.2 fL 6.2-12.0 [facility] Microscopic analysis of urin e for red blood cells (RBC)Ordered By: Edouard Grayson on 03-31-2024 Urine RBC 0-5 SEEN /hpf 0-5 [facility] Mucus LM Ql (Urine sed)Order ed By: Edouard Grayson on 03-31-2024 Mucus Ql (Urine sed) 0 SEEN /hpf [facility] Nitrite Test strip Ql (U)Ord ered By: Edouard Grayson on 03-31-2024 Nitrite Ql (U) Negative Negative [facility] Platelet countOrdered By: Genny Grayson on 03-31-2024 Platelets (Bld) [#/Vol] 360 10*3/uL 150-450 [facility] Potassium measurementOrdered By: Edouard Grayson on 03-31-2024 Potassium [Moles/Vol] 3.9 mmol/L 3.5-5.1 [facility] Protein Test strip Ql (U)Ord ered By: Edouard Grayson on 03-31-2024 Protein Ql (U) 30 mg/dl High Negative [facility] RBC Auto (Bld) [#/Vol]Ordere d By: Edouard Grayson on 03-31-2024 RBC (Bld) [#/Vol] 4.33 10*6/uL 4.2-5.4 [facility] Serum anion gap measurementO rdered By: Edouard Grayson on 03-31-2024 Anion gap [Moles/Vol] 5 mmol/L 5-15 [facility] Serum or plasma calcium jasmin urement (mass/volume)Ordered By: Edouard Grayson on 03-31-2024 Calcium [Mass/Vol] 9.3 mg/dL 8.5-10.1 [facility] Serum or plasma creatinine m easurement (mass/volume)Ordered By: Edouard Grayson on 03-31-2024 Creatinine [Mass/Vol] 1.01 mg/dL 0.55-1.02 [facility] Comment on above: The validity of the calculated GFR & GFRAA in patients over 70 years has not been determined. Clinical correlation is essential. Serum or plasma urea nitroge n measurement (mass/volume)Ordered By: Edouard Grayson on 03-31-2024 Urea nitrogen [Mass/Vol] 36 mg/dL High 7-18 [facility] Sodium levelOrdered By: Edouard Grayson on 03-31-2024 Sodium [Moles/Vol] 141 mmol/L 136-145 [facility] Urine blood detectionOrdered By: Edouard Grayson on 03-31-2024 Urine Occult Blood 10 /ul High Negative [facility] Urine clarityOrdered By: Earl Grayson on 03-31-2024 Clarity (U) Cloudy Clear [facility] Urine color determinationOrd ered By: Edouard Grayson on 03-31-2024 Color (U) Yellow Yellow [facility] Urine cultureOrdered By: Earl Grayson on 03-31-2024 Bacteria identified Cx Nom (U) Presumptive C albicans Abnormal [facility] Urine leukocyte esterase det ection by dipstickOrdered By: Edouard Grayson on 03-31-2024 Leukocyte esterase Test strip Ql (U) 500 /ul High Negative [facility] Urine pHOrdered By: Edouard sales on 03-31-2024 pH (U) 6.0 [pH] 5.0 - 8.0 [facility] Urine specific gravity measu rementOrdered By: Edouard Grayson on 03-31-2024 Specific gravity (U) [Rel density] 1.025 1.002-1.030 [facility] Urobilinogen Ql (U)Ordered B y: Edouard Grayson on 03-31-2024 Urine Urobilinogen Normal mg/dl Normal [facility] White blood cell (WBC) count Ordered By: Edouard Grayson on 03-31-2024 WBC (Bld) [#/Vol] 23.0 10*3/uL High 4.4-11.0 [facility] White blood cell countOrdere d By: Edouard Grayson on 03-31-2024 Urine WBC 10-25 SEEN /hpf 0-5 [facility] Yeast LM.HPF (Urine sed) [#/ Area]Ordered By: Edouard Grayson on 03-31-2024 Urine Yeast 1+ /hpf None Seen [facility] Urine Cultureon 03-25-2024 [facility] Comments: Please obtain repeat UA in the ED catheter, Cx #2 Organism is too fastidious for routine susceptibility studies. Enterococcus faecalis [place] Count >100,000 Aerococcus urinae Aerococcus urinae Enterococcus faecalis: REACTION Ampicillin Islt YANCI <=2 S Ciprofloxacin Islt YANCI <=0.5 Gentamicin Synergy Susc Islt SYN-S S levoFLOXacin Islt YANCI 1 S Linezolid Islt YANCI 2 S Nitrofurantoin Islt YANCI <=16 S Streptomycin High Pot Susc Islt SYN-S S Tetracycline Islt YANCI >=16 R Vancomycin Islt YANCI 1 S Normal [facility] Comment on above: Performed By: #### L 501.6380, L500.4050, L100.0100 #### [facility] [place], [address] Absolute neutrophil countOrd ered By: Chasity Huffman on 03-23-2024 Neutrophils (Bld) [#/Vol] 6.4 10*3/uL 2.0-7.7 [facility] Albumin to globulin ratioOrd ered By: Chasity Huffman on 03-23-2024 Albumin/Globulin [Mass ratio] 0.6 {ratio} Low 0.9-2.4 [facility] Basophil percentageOrdered B y: Chasity Huffman on 03-23-2024 Basophils/100 WBC (Bld) 0.2 % 0-1 [facility] Bilirubin, totalOrdered By: Chasity Huffman on 03-23-2024 Bilirubin [Mass/Vol] 0.30 mg/dL 0.20-1.00 [facility] Comment on above: For patients on eltr ombopag therapy, use of Dimension Ennice TBIL is not recommended. Blood urea nitrogen (BUN)/cr eatinine ratioOrdered By: Chasity Huffman on 03-23-2024 Urea nitrogen/Creatinine [Mass ratio] 26.3 mg/mg High 10-20 [facility] CBC W/Diff, Automatedon 03-12 Absolute Lymph 2.22 X10 3/uL Normal 0.83-4.51 [facility] Comment on above: Performed By: #### L 501.2400, L500.4050, L100.0100 #### [facility] [address] [place], [address] Absolute Neut 6.4 X10 3/uL Normal 2.0-7.7 [facility] Comment on above: Performed By: #### L 501.2400, L500.4050, L100.0100 #### [facility] [address] [place], [address] Basophils/100 WBC (Bld) 0.2 % Normal 0-1 [facility] Comment on above: Performed By: #### L 501.2400, L500.4050, L100.0100 #### [facility] [address] [place], [address] Eosinophils/100 WBC (Bld) 0.0 % Normal 0-5 [facility] Comment on above: Performed By: #### L 501.2400, L500.4050, L100.0100 #### [facility] [address] [place], [address] Erythrocyte distribution width (RBC) [Ratio] 17.6 % High 11.6-14.6 [facility] Comment on above: Performed By: #### L 501.2400, L500.4050, L100.0100 #### [facility] [address] [place], [address] Hematocrit (Bld) [Volume fraction] 32.8 % Low 37-47 [facility] Comment on above: Performed By: #### L 501.2400, L500.4050, L100.0100 #### [facility] [address] [place], [address] Hemoglobin (Bld) [Mass/Vol] 9.7 g/dL Low 12.0-15.0 [facility] Comment on above: Performed By: #### L 501.2400, L500.4050, L100.0100 #### [facility] [address] [place], [address] IG% 0.500 Normal 0.0-0.9 [facility] Comment on above: Result Comment: IG% - Immature Granulocytes (promyelocytes, myelocytes and metamyelocytes) > 1% indicates that a LEFT SHIFT is Present. Performed By: #### L 501.2400, L500.4050, L100.0100 #### [facility] [address] [place], [address] Lymphocytes/100 WBC (Bld) 25.1 % Normal 19-41 [facility] Comment on above: Performed By: #### L 501.2400, L500.4050, L100.0100 #### [facility] [address] [place], [address] MCH (RBC) [Entitic mass] 23.7 pg Low 27.0-32.0 [facility] Comment on above: Performed By: #### L 501.2400, L500.4050, L100.0100 #### [facility] [address] [place], [address] MCHC (RBC) [Mass/Vol] 29.6 g/dL Low 32-36 [facility] Comment on above: Performed By: #### L 501.2400, L500.4050, L100.0100 #### [facility] [address] [place], [address] MCV (RBC) [Entitic vol] 80.2 fL Low 81-99 [facility] Comment on above: Performed By: #### L 501.2400, L500.4050, L100.0100 #### [facility] [address] [place], [address] Monocytes/100 WBC (Bld) 1.9 % Normal 0-10 [facility] Comment on above: Performed By: #### L 501.2400, L500.4050, L100.0100 #### [facility] [address] [place], [address] Neutrophils/100 WBC (Bld) 72.3 % High 47-70 [facility] Comment on above: Performed By: #### L 501.2400, L500.4050, L100.0100 #### [facility] [address] [place], [address] Nucleated RBC (Bld) [#/Vol] 0 10*3/uL Normal 0-5 [facility] Comment on above: Performed By: #### L 501.2400, L500.4050, L100.0100 #### [facility] [address] [place], [address] Platelet mean volume (Bld) [Entitic vol] 9.6 fL Normal 6.2-12.0 [facility] Comment on above: Performed By: #### L 501.2400, L500.4050, L100.0100 #### [facility] [address] [place], [address] Platelets (Bld) [#/Vol] 282 10*3/uL Normal 150-450 [facility] Comment on above: Performed By: #### L 501.2400, L500.4050, L100.0100 #### [facility] [address] [place], [address] RBC (Bld) [#/Vol] 4.09 10*6/uL Low 4.2-5.4 [facility] Comment on above: Performed By: #### L 501.2400, L500.4050, L100.0100 #### [facility] [address] [place], [address] RDW SD 50.8 fl High 35.1-43.9 [facility] Comment on above: Performed By: #### L 501.2400, L500.4050, L100.0100 #### [facility] [address] [place], [address] WBC (Bld) [#/Vol] 8.9 10*3/uL Normal 4.4-11.0 [facility] Comment on above: Performed By: #### L 501.2400, L500.4050, L100.0100 #### [facility] [address] [place], [address] Carbon dioxide measurementOr dered By: Chasity Huffman on 03-23-2024 CO2 [Moles/Vol] 21.0 mmol/L 21.0-32.0 [facility] Chloride measurementOrdered By: Chasity Huffman on 03-23-2024 Chloride [Moles/Vol] 114 mmol/L High 98-107 [facility] Comprehensive Metabolic Prof ilon 03-23-2024 Albumin [Mass/Vol] 2.8 g/dL Low 3.2-5.0 [facility] Comment on above: Performed By: #### L 501.2400, L500.4050, L100.0100 #### [facility] [address] [place], [address] Albumin/Globulin [Mass ratio] 0.6 {ratio} Low 0.9-2.4 [facility] Comment on above: Performed By: #### L 501.2400, L500.4050, L100.0100 #### [facility] [address] [place], [address] ALK P 93 U/L Normal 45-117 [facility] Comment on above: Performed By: #### L 501.2400, L500.4050, L100.0100 #### [facility] [address] [place], [address] ALT [Catalytic activity/Vol] 26 U/L Normal 13-56 [facility] Comment on above: Performed By: #### L 501.2400, L500.4050, L100.0100 #### [facility] [address] [place], [address] AST [Catalytic activity/Vol] 23 U/L Normal 15-37 [facility] Comment on above: Performed By: #### L 501.2400, L500.4050, L100.0100 #### [facility] [address] [place], [address] Bilirubin [Mass/Vol] 0.30 mg/dL Normal 0.20-1.00 [facility] Comment on above: Result Comment: For patients on eltrombopag therapy, use of Dimension Ennice TBIL is not recommended. Performed By: #### L 501.2400, L500.4050, L100.0100 #### [facility] [address] [place], [address] BUN/CRE 26.3 RATIO High 10-20 [facility] Comment on above: Performed By: #### L 501.2400, L500.4050, L100.0100 #### [facility] [address] [place], [address] CA,Total 8.4 mg/dL Low 8.5-10.1 [facility] Comment on above: Performed By: #### L 501.2400, L500.4050, L100.0100 #### [facility] [address] [place], [address] Chloride [Moles/Vol] 114 mmol/L High 98-107 [facility] Comment on above: Performed By: #### L 501.2400, L500.4050, L100.0100 #### [facility] [address] [place], [address] CO2 [Moles/Vol] 21.0 mmol/L Normal 21.0-32.0 [facility] Comment on above: Performed By: #### L 501.2400, L500.4050, L100.0100 #### [facility] [address] [place], [address] Creatinine [Mass/Vol] 0.84 mg/dL Normal 0.55-1.02 [facility] Comment on above: Result Comment: The validity of the calculated GFR GFRAA in patients over 70 years has not been determined. Clinical correlation is essential. Performed By: #### L 501.2400, L500.4050, L100.0100 #### [facility] [address] [place], [address] ECRCL 40.83 ml/min Normal [facility] Comment on above: Performed By: #### L 501.2400, L500.4050, L100.0100 #### [facility] [address] [place], [address] EST GFR - AA 84 mL/min Normal >60 [facility] Comment on above: Result Comment: Afri can German GFR Calc Performed By: #### L 501.2400, L500.4050, L100.0100 #### [facility] [address] [place], [address] GAP 4 Low 5-15 [facility] Comment on above: Performed By: #### L 501.2400, L500.4050, L100.0100 #### [facility] [address] [place], [address] GFR/1.73 sq M.predicted among non-blacks MDRD (S/P/Bld) [Vol rate/Area] 69 mL/min/{1.73_m2} Normal >60 [facility] Comment on above: Result Comment: Non- GFR Calc Performed By: #### L 501.2400, L500.4050, L100.0100 #### [facility] [address] [place], [address] Globulin (S) [Mass/Vol] 4.6 g/dL High 2.2-4.2 [facility] Comment on above: Performed By: #### L 501.2400, L500.4050, L100.0100 #### [facility] [address] [place], [address] Glucose [Mass/Vol] 167 mg/dL High 74-106 [facility] Comment on above: Result Comment: Fast ing Glucose result greater than or equal to 126 mg/dL suggests DIABETES MELLITUS per A.D.A. criteria. Performed By: #### L 501.2400, L500.4050, L100.0100 #### [facility] [address] [place], [address] Potassium [Moles/Vol] 4.2 mmol/L Normal 3.5-5.1 [facility] Comment on above: Performed By: #### L 501.2400, L500.4050, L100.0100 #### [facility] [address] [place], [address] Sodium [Moles/Vol] 140 mmol/L Normal 136-145 [facility] Comment on above: Performed By: #### L 501.2400, L500.4050, L100.0100 #### [facility] [address] [place], [address] T PROT 7.4 g/dL Normal 6.4-8.2 [facility] Comment on above: Performed By: #### L 501.2400, L500.4050, L100.0100 #### [facility] [address] [place], [address] Urea nitrogen [Mass/Vol] 22 mg/dL High 7-18 [facility] Comment on above: Performed By: #### L 501.2400, L500.4050, L100.0100 #### [facility] [address] [place], [address] Eosinophil percentageOrdered By: Chasity Armida on 03-23-2024 Eosinophils/100 WBC (Bld) 0.0 % 0-5 [facility] Erythrocyte distribution wid th (RBC) [Ratio]Ordered By: Chasity White on 03-23-2024 Erythrocyte distribution width (RBC) [Entitic vol] 50.8 fL High 35.1-43.9 [facility] Erythrocyte distribution wid th ratioOrdered By: White on 03-23-2024 Erythrocyte distribution width (RBC) [Ratio] 17.6 % High 11.6-14.6 [facility] Estimated glomerular filtrat ion rate (GFR) AmericanOrdered By: Chasity Armida on 03-23-2024 Estimated GFR (MDRD) Amer 84 mL/min >60 [facility] Comment on above: GFR Calc Estimation of creatinine suellen aranceOrdered By: Chasity Huffman on 03-23-2024 Estimated Creatinine Clearance Calc 40.83 ml/min [facility] Glomerular filtration rate ( GFR) estimationOrdered By: Chasity Armida on 03-23-2024 Estimated GFR (MDRD) Non-Af Amer 69 mL/min >60 [facility] Comment on above: Non- GFR Calc Glucose measurementOrdered B y: Chasity Huffman on 03-23-2024 Glucose [Mass/Vol] 167 mg/dL High 74-106 [facility] Comment on above: Fasting Glucose resu lt greater than or equal to 126 mg/dL suggests DIABETES MELLITUS per A.D.A. criteria. Hematocrit Auto (Bld) [Volum e fraction]Ordered By: Chasity Huffman on 03-23-2024 Hematocrit (Bld) [Volume fraction] 32.8 % Low 37-47 [facility] Hemoglobin measurementOrdere d By: Chasity Huffman on 03-23-2024 Hemoglobin (Bld) [Mass/Vol] 9.7 g/dL Low 12.0-15.0 [facility] Immature granulocytes/100 WB C Auto (Bld)Ordered By: Chasity Huffman on 03-23-2024 Immature granulocytes/100 WBC (Bld) 0.500 % 0.0-0.9 [facility] Comment on above: IG% - Immature Granu locytes (promyelocytes, myelocytes and metamyelocytes) > 1% indicates that a LEFT SHIFT is Present. Laboratory - Chemistry and C hemistry - challengeOrdered By: Chasity Huffman on 03-23-2024 AST [Catalytic activity/Vol] 23 U/L 15-37 [facility] Lymphocytes Auto (Unsp spec) [#/Vol]Ordered By: Chasity Huffman on 03-23-2024 Lymphocytes (Bld) [#/Vol] 2.22 10*3/uL 0.83-4.51 [facility] Lymphocytes/100 WBC Auto (Un sp spec)Ordered By: Chasity Huffman on 03-23-2024 Lymphocytes/100 WBC (Bld) 25.1 % 19-41 [facility] MCV (mean corpuscular volume ) determinationOrdered By: Chasity Huffman on 03-23-2024 MCV (RBC) [Entitic vol] 80.2 fL Low 81-99 [facility] Mean corpuscular hemoglobin (MCH) determinationOrdered By: Chasity Huffman on 03-23-2024 MCH (RBC) [Entitic mass] 23.7 pg Low 27.0-32.0 [facility] Mean corpuscular hemoglobin concentration (MCHC) determinationOrdered By: Chasity White on 03-23-2024 MCHC (RBC) [Mass/Vol] 29.6 g/dL Low 32-36 [facility] Comment on above: Delta: 31.4 on 03/22-1230 Mean platelet volume determi nationOrdered By: Chasity White on 03-23-2024 Platelet mean volume (Bld) [Entitic vol] 9.6 fL 6.2-12.0 [facility] Monocyte percentageOrdered B y: Chasity White on 03-23-2024 Monocytes/100 WBC (Bld) 1.9 % 0-10 [facility] Neutrophil percentageOrdered By: Chasity White on 03-23-2024 Neutrophils/100 WBC (Bld) 72.3 % High 47-70 [facility] Nucleated red blood cell per centageOrdered By: Chasity Huffman on 03-23-2024 Nucleated RBC/100 WBC (Bld) [Ratio] 0 % 0-5 [facility] Platelet countOrdered By: Kaylie sargent Armida on 03-23-2024 Platelets (Bld) [#/Vol] 282 10*3/uL 150-450 [facility] Potassium measurementOrdered By: Chasity Huffman on 03-23-2024 Potassium [Moles/Vol] 4.2 mmol/L 3.5-5.1 [facility] RBC Auto (Bld) [#/Vol]Ordere d By: Chasity White on 03-23-2024 RBC (Bld) [#/Vol] 4.09 10*6/uL Low 4.2-5.4 [facility] Serum anion gap measurementO rdered By: Chasity White on 03-23-2024 Anion gap [Moles/Vol] 4 mmol/L Low 5-15 [facility] Serum globulin measurementOr dered By: Chasity Huffman on 03-23-2024 Globulin (S) [Mass/Vol] 4.6 g/dL High 2.2-4.2 [facility] Serum or plasma alanine maurice otransferase (ALT) measurementOrdered By: Chasity Huffman on 03-23-2024 ALT [Catalytic activity/Vol] 26 U/L 13-56 [facility] Serum or plasma albumin jasmin urement (mass/volume)Ordered By: Chasity Huffman on 03-23-2024 Albumin [Mass/Vol] 2.8 g/dL Low 3.2-5.0 [facility] Serum or plasma alkaline jose alberto sphatase measurementOrdered By: Chasity Huffman on 03-23-2024 ALP [Catalytic activity/Vol] 93 U/L 45-117 [facility] Serum or plasma calcium jasmin urement (mass/volume)Ordered By: Chasity Huffman on 03-23-2024 Calcium [Mass/Vol] 8.4 mg/dL Low 8.5-10.1 [facility] Serum or plasma creatinine m easurement (mass/volume)Ordered By: Chasity Huffman on 03-23-2024 Creatinine [Mass/Vol] 0.84 mg/dL 0.55-1.02 [facility] Comment on above: The validity of the calculated GFR & GFRAA in patients over 70 years has not been determined. Clinical correlation is essential. Serum or plasma urea nitroge n measurement (mass/volume)Ordered By: Chasity Huffman on 03-23-2024 Urea nitrogen [Mass/Vol] 22 mg/dL High 7-18 [facility] Sodium levelOrdered By: Kajalu mn Armida on 03-23-2024 Sodium [Moles/Vol] 140 mmol/L 136-145 [facility] Total proteinOrdered By: Kajal umn Armida on 03-23-2024 Protein [Mass/Vol] 7.4 g/dL 6.4-8.2 [facility] White blood cell (WBC) count Ordered By: Chasity Huffman on 03-23-2024 WBC (Bld) [#/Vol] 8.9 10*3/uL 4.4-11.0 [facility] 12 Lead EKGon 03-22-2024 12 Lead EKG [facility] [address] [place] [address] 12 Lead EKG 03/22/24 1250 MR#: [id number] Acct: [id number] Name: KARLIE VALLE Rep #: [id number] : 1940 83 From: Mauro Davis MD Attending Dr: Dr. Catarino Aguilar DO Status: A DM IN Ordering Dr: Glenys Bland Date: 03/22/24 Location: [facility] Sex: F C Admitted: 03/22/24 Test Reason : WEAKNESS, COVID + Blood Pressure : */* mmHG Vent. Rate : 74 BPM Atrial Rate : * BPM P-R Int : * ms QRS Dur : 76 ms QT Int : 410 ms P-R-T Axes : * 39 90 degrees QTcB Int : 455 ms Normal sinus rhythm T wave abnormality, consider anterior ischemia Abnormal ECG Confirmed by NELSON BOGGS, MAURO ([id number]), non linear editor KARIME SCHMTIZ ([id number]) on 03/24/2024 1:55:28 PM Referred By: Confirmed By: MAURO DAVIS MD 03/24/24 1355 Date Mauro Davis MD CC: Dr. Edouard Grayson MD; Dr. Catarino Aguilar DO; MARY Rothman Signed Normal [facility] BNP (brain natriuretic pepti de measurement)Ordered By: Chasity Huffman on 03-22-2024 Natriuretic peptide B (Bld) [Mass/Vol] 107.7 pg/mL High 0-100 [facility] Comment on above: Performed By: #### L 500.2500, L100.0500 #### [facility] [address] [place], [address] Basic Metabolic Profile (BMP )on 03-22-2024 BUN/CRE 22.4 RATIO High 10-20 [facility] Comment on above: Order Comment: 127.1 Performed By: #### L 500.2500, L100.0500 #### [facility] [address] [place], [address] CA,Total 9.0 mg/dL Normal 8.5-10.1 [facility] Comment on above: Order Comment: 127.1 Performed By: #### L 500.2500, L100.0500 #### [facility] [address] [place], [address] Chloride [Moles/Vol] 110 mmol/L High 98-107 [facility] Comment on above: Order Comment: 127.1 Performed By: #### L 500.2500, L100.0500 #### [facility] [address] [place], [address] CO2 [Moles/Vol] 23.0 mmol/L Normal 21.0-32.0 [facility] Comment on above: Order Comment: 127.1 Performed By: #### L 500.2500, L100.0500 #### [facility] [address] [place], [address] Creatinine [Mass/Vol] 1.07 mg/dL High 0.55-1.02 [facility] Comment on above: Order Comment: 127.1 Result Comment: The validity of the calculated GFR GFRAA in patients over 70 years has not been determined. Clinical correlation is essential. Performed By: #### L 500.2500, L100.0500 #### [facility] [address] [place], [address] ECRCL 32.77 ml/min Normal [facility] Comment on above: Order Comment: 127.1 Performed By: #### L 500.2500, L100.0500 #### [facility] [address] [place], [address] EST GFR - AA 63 mL/min Normal >60 [facility] Comment on above: Order Comment: 127.1 Result Comment: Afri can German GFR Calc Performed By: #### L 500.2500, L100.0500 #### [facility] [address] [place], [address] GAP 5 Normal 5-15 [facility] Comment on above: Order Comment: 127.1 Performed By: #### L 500.2500, L100.0500 #### [facility] [address] [place], [address] GFR/1.73 sq M.predicted among non-blacks MDRD (S/P/Bld) [Vol rate/Area] 52 mL/min/{1.73_m2} Low >60 [facility] Comment on above: Order Comment: 127.1 Result Comment: Non- GFR Calc Performed By: #### L 500.2500, L100.0500 #### [facility] [address] [place], [address] Glucose [Mass/Vol] 122 mg/dL High 74-106 [facility] Comment on above: Order Comment: 127.1 Result Comment: Fast ing Glucose result from 100 to 125 mg/dL suggests IMPAIRED HOMEOSTASIS per A.D.A. criteria. Performed By: #### L 500.2500, L100.0500 #### [facility] [address] [place], [address] Potassium [Moles/Vol] 4.0 mmol/L Normal 3.5-5.1 [facility] Comment on above: Order Comment: 127.1 Performed By: #### L 500.2500, L100.0500 #### [facility] [address] [place], [address] Sodium [Moles/Vol] 138 mmol/L Normal 136-145 [facility] Comment on above: Order Comment: 127.1 Performed By: #### L 500.2500, L100.0500 #### [facility] [address] [place], [address] Urea nitrogen [Mass/Vol] 24 mg/dL High 7-18 [facility] Comment on above: Order Comment: 127.1 Performed By: #### L 500.2500, L100.0500 #### [facility] [address] [place], [address] Bilirubin Test strip Ql (U)O rdered By: Glenys Bland on 03-22-2024 Bilirubin Ql (U) Negative Negative [facility] Bilirubin directOrdered By: Chasity Huffman on 03-22-2024 Bilirubin.direct [Mass/Vol] 0.07 mg/dL 0.00-0.30 [facility] Brain/Head without Contrasto n 03-22-2024 Brain/Head without Contrast [facility] Imaging Services [address] [place] [address] Brain/Head without Contrast MR#: [id number] Acct: [id number] Name: KARLIE VALLE Rep #: [id number] : 1940 F 83 From: Nyasia bonilla MD PCP: Dr. Edouard Grayson MD Status: REG ER Study: Brain/Head without Contrast Date of Exam: 03/12 04/05 Exam# [id number] Ordering Dr: Glenys Bland [id number] HISTORY: ams, confusion, sob. TECHNIQUE: Multiple axial images were obtained of the head without intravenous contrast. A radiation dose optimization technique was used for this scan. 226 images. COMPARISON: 01/19/2022. FINDINGS: BRAIN PARENCHYMA: Multiple foci and zones of low attenuation in the bilateral cerebral white matter compatible with chronic small vessel ischemic gliosis. Chronic left frontal, right insula/basal ganglia, right temporal, and left cerebellar infarcts. No acute intra-axial hemorrhage identified. CSF SPACES: Volume loss with ex vacuo dilatation of the right lateral ventricle. No midline shift or other significant mass effect. No acute extra-axial hemorrhage seen. OTHER: Intact calvarium. Chronic left posterior ethmoid sinusitis with hyperostosis and mucosal thickening. Sinonasal postoperative change. Bilateral lens resections. CT/Brain/Head without Contrast IMPRESSION: No acute intracranial process identified. Chronic involutional and white matter changes. Chronic cerebral and cerebellar infarcts. Electronically Signed: Nyasia Hayes MD at 14:17 EST , CC: Dr. Edouard Grayson MD; MARY Rothman [employer] Machine Operator: Signed Normal [facility] C-reactive protein measureme nt by high sensitivity methodOrdered By: Chasity Huffman on 03-22-2024 C-Reactive Protein Extended Range 25.70 mg/L High 0.0-3.0 [facility] Comment on above: C-Reactive Protein ( CRP) provides useful information for thediagnosis, therapy and monitoring of inflammatory processesand associated diseases. For the evaluation of Relative Riskfor Cardiovascular Disease, a High Sensitivity CRP (HSCRP)should be ordered. CBC W/Diff, Automatedon 03-12 Absolute Lymph 3.73 X10 3/uL Normal 0.83-4.51 [facility] Comment on above: Performed By: #### L 500.2500, L100.0500 #### [facility] [address] [place], [address] Absolute Neut 5.7 X10 3/uL Normal 2.0-7.7 [facility] Comment on above: Performed By: #### L 500.2500, L100.0500 #### [facility] [address] [place], [address] Basophils/100 WBC (Bld) 0.4 % Normal 0-1 [facility] Comment on above: Performed By: #### L 500.2500, L100.0500 #### [facility] [address] [place], [address] Eosinophils/100 WBC (Bld) 0.8 % Normal 0-5 [facility] Comment on above: Performed By: #### L 500.2500, L100.0500 #### [facility] [address] [place], [address] Erythrocyte distribution width (RBC) [Ratio] 17.5 % High 11.6-14.6 [facility] Comment on above: Performed By: #### L 500.2500, L100.0500 #### [facility] [address] [place], [address] Hematocrit (Bld) [Volume fraction] 31.2 % Low 37-47 [facility] Comment on above: Performed By: #### L 500.2500, L100.0500 #### [facility] [address] [place], [address] Hemoglobin (Bld) [Mass/Vol] 9.8 g/dL Low 12.0-15.0 [facility] Comment on above: Performed By: #### L 500.2500, L100.0500 #### [facility] [address] [place], [address] IG% 0.300 Normal 0.0-0.9 [facility] Comment on above: Result Comment: IG% - Immature Granulocytes (promyelocytes, myelocytes and metamyelocytes) > 1% indicates that a LEFT SHIFT is Present. Performed By: #### L 500.2500, L100.0500 #### [facility] [address] [facility] [place], [address] Lymphocytes/100 WBC (Bld) 34.6 % Normal 19-41 [facility] Comment on above: Performed By: #### L 500.2500, L100.0500 #### [facility] [address] [place], [address] MCH (RBC) [Entitic mass] 24.2 pg Low 27.0-32.0 [facility] Comment on above: Performed By: #### L 500.2500, L100.0500 #### [facility] [address] [place], [address] MCHC (RBC) [Mass/Vol] 31.4 g/dL Low 32-36 [facility] Comment on above: Performed By: #### L 500.2500, L100.0500 #### [facility] [address] [place], [address] MCV (RBC) [Entitic vol] 77.0 fL Low 81-99 [facility] Comment on above: Performed By: #### L 500.2500, L100.0500 #### [facility] [address] [place], [address] Monocytes/100 WBC (Bld) 10.8 % High 0-10 [facility] Comment on above: Performed By: #### L 500.2500, L100.0500 #### [facility] [address] [place], [address] Neutrophils/100 WBC (Bld) 53.1 % Normal 47-70 [facility] Comment on above: Performed By: #### L 500.2500, L100.0500 #### [facility] [address] [place], [address] Nucleated RBC (Bld) [#/Vol] 0 10*3/uL Normal 0-5 [facility] Comment on above: Performed By: #### L 500.2500, L100.0500 #### [facility] [address] [place], [address] Platelet mean volume (Bld) [Entitic vol] 9.5 fL Normal 6.2-12.0 [facility] Comment on above: Performed By: #### L 500.2500, L100.0500 #### [facility] [address] [place], [address] Platelets (Bld) [#/Vol] 319 10*3/uL Normal 150-450 [facility] Comment on above: Performed By: #### L 500.2500, L100.0500 #### [facility] [address] [place], [address] RBC (Bld) [#/Vol] 4.05 10*6/uL Low 4.2-5.4 [facility] Comment on above: Performed By: #### L 500.2500, L100.0500 #### [facility] [address] [place], [address] RDW SD 48.6 fl High 35.1-43.9 [facility] Comment on above: Performed By: #### L 500.2500, L100.0500 #### [facility] [address] [place], [address] WBC (Bld) [#/Vol] 10.8 10*3/uL Normal 4.4-11.0 [facility] Comment on above: Performed By: #### L 500.2500, L100.0500 #### [facility] [address] [place], [address] CPK Total, Creatine Kinaseon 03-22-2024 CPK TOTAL 42 U/L Normal 26-192 [facility] Comment on above: Order Comment: 127.1 Performed By: #### L 500.2500, L100.0500 #### [facility] [address] [place], [address] CRPon 03-22-2024 C-REACTIVE PROT 25.70 mg/L High 0.0-3.0 [facility] Comment on above: Order Comment: 127.1 Result Comment: C-Re active Protein (CRP) provides useful information for the diagnosis, therapy and monitoring of inflammatory processes and associated diseases. For the evaluation of Relative Risk for Cardiovascular Disease, a High Sensitivity CRP (HSCRP) should be ordered. Performed By: #### L 500.2500, L100.0500 #### [facility] [address] [place], [address] Chest 1 View (Portable)on Chest 1 View (Portable) [facility] Imaging Services [address] [facility] [place] [place] [address] Chest 1 View (Portable) MR#: [id number] Acct: [id number] Name: KARLIE VALLE Rep #: [id number] : 1940 F 83 From: Nyasia bonilla MD PCP: Dr. Edouard Grayson MD Status: REG ER Study: Chest 1 View (Portable) Date of Exam: 03/22/24 Exam# [id number] Ordering Dr: Glenys Bland [id number] HISTORY: cough. TECHNIQUE: XR Chest 1 View. COMPARISON: 01/19/2022. FINDINGS: CARDIOMEDIASTINAL BORDERS: Cardiac silhouette within normal limits in size. Mediastinal contour unchanged with moderate hiatal hernia. Calcification of the aortic knob. LUNGS: Low lung volumes with mild bibasilar atelectasis. PLEURA: No pleural effusion or pneumothorax seen. OSSEOUS STRUCTURES: Unremarkable. RAD/Chest 1 View (Portable) IMPRESSION: Moderate hiatal hernia. Mild bibasilar atelectasis. Electronically Signed: Nyasia Hayes MD at 14:27 EST Reading Location ID and State: [facility] / [place] Tel , Service support , CC: Dr. Edouard Grayson MD; MARY Rothman [employer]acer Machine Operator: Signed Normal [facility] D-Dimer Quantitative (DVT/PE )on 03-22-2024 D-DIMER QUANT 0.37 FEU/ug/m Normal 0.27-0.49 [facility] Comment on above: Result Comment: NORM AL D-Dimer level (<0.50) indicates no DVT or PE. Performed By: #### L 500.2500, L100.0500 #### [facility] [address] [facility] [place] [place], [address] D-dimer measurement for deep venous thrombosisOrdered By: Chasity Huffman on 03-22-2024 D-Dimer Quantitative (PE/DVT) 0.37 FEU/ug/m 0.27-0.49 [facility] Comment on above: NORMAL D-Dimer level (<0.50) indicates no DVT or PE. Emergency Department Summary on 03-22-2024 Emergency Department Summary [facility] Medical Records Department [address] [place] [address] Emergency Department Summary 03/22/24 MR#: [id number] Acct: [id number] Name: KARLIE VALLE Rep #: [id number] : 1940 83 From: Glenys HERNANDEZ PCP: Dr. Edouard Grayson MD Status:ADM IN Location: MS3 [id number] HPI History of Present Illness Chief Complaint: Shortness of Breath Narrative Narrative: 83-year-old female with PMH of HLD, CVA, A-fib on Eliquis, anemia was sent in from [facility]. She tested positive for COVID yesterday. She has had a fever of 101.1F, increased respiratory distress was found to be 84% on room air. She was given Tylenol at 9:15 AM. She is very weak and taking decreased p.o. intake. [facility] Medical History Depression GI bleed Dementia HTN (hypertension) Esophageal stenosis Angiodysplasia of duodenum Angiodysplasia of stomach Paroxysmal A-fib LAE (left atrial enlargement) Shingles GIB (gastrointestinal bleeding) Stroke/cerebrovascula r accident Atrial fibrillation Essential hypertension Polyp of nasal cavity Other chronic sinusitis Wears hearing aid Wears glasses Arthritis Kidney stones Migraine headache History of hiatal hernia Non-smoker Cardiology follow-up encounter Atherosclerosis of coronary artery of [place] heart without angina pectoris Osteoporosis IBS (irritable bowel syndrome) GERD (gastroesophageal reflux disease) Hyperlipidemia Home Medications ???Medication ???Instructions ???Recorded ???Last Taken ???Type acetaminophen 500 mg tablet 1,000 mg (2 x 500 mg) PO Q8 PRN 02/20/22 12/29/22 Rx fever/pain 1-10 #0 tabs metoprolol tartrate 25 mg tablet 25 mg PO BID BP 02/20/22 12/30/22 History menthol 0.44 %-zinc oxide 20.6 % 1 applic topical BID #0 grams 03/09/22 Unknown Rx topical ointment (Calmoseptine) pramipexole 0.125 mg tablet 0.125 mg PO QHS #0 tabs 03/09/22 12/29/22 Rx sennosides 8.6 mg-docusate sodium 1 tab-cap PO DAILY constipation 12/30/22 12/30/22 History 50 mg tablet (2-in-1 Laxative) apixaban 2.5 mg tablet (Eliquis) 2.5 mg PO BID #60 tabs 01/02/23 Unknown Rx atorvastatin 20 mg tablet 20 mg PO QHS 03/22/24 Unknown History dexamethasone 4 mg tablet 4 mg PO Q12H 03/22/24 Unknown History escitalopram oxalate 10 mg tablet 10 mg PO DAILY 03/22/24 Unknown History escitalopram oxalate 5 mg tablet 5 mg PO DAILY 03/22/24 Unknown History mirtazapine 7.5 mg tablet 7.5 mg PO QHS 03/22/24 Unknown History nirmatrelvir 300 mg (150 mg 3 tab PO BID 03/22/24 Unknown History x2)-ritonavir 100 mg tablet,dose pack (Paxlovid) omeprazole 20 mg capsule,delayed 20 mg PO DAILY 03/22/24 Unknown History release oxybutynin chloride 5 mg tablet 5 mg PO DAILY 03/22/24 Unknown History polyethylene glycol 3350 17 17 g PO DAILY 03/22/24 Unknown History gram/dose oral powder (Miralax) Allergy/AdvReac Type Severity Reaction Status Date / Time ranolazine (From Ranexa) AdvReac Severe low urine Verified 12/30/22 16:02 output, rash oseltamivir (From Tamiflu) AdvReac Unknown Verified 12/30/22 16:02 Family History Father CAD (coronary artery disease) CVA (cerebral vascular accident) Hypertension Mother Hypertension Brother Hypertension Sister Diabetes Other Heart disease Surgical History H/O sinus surgery History of tonsillectomy History of cataract surgery History of left heart catheterization (04/16/17) Social History household members: none housing: fpc Smoking Status: Never smoker alcohol intake: never substance use type: does not use ROS ROS ED ROS Narrative Unable to obtain due to mental status EXAM Physical Exam Narrative Exam Narrative: CONST: Patient sitting in bed awake appears ill. EYES: Normal inspection. ENT: Normal inspection, dry mucous membranes. NECK: Normal inspection. RESP: No respiratory distress, CTAB. CVS: Regular rate and rhythm, no murmur, no gallop. SKIN: Color normal, no rash, warm, dry, intact. EXTREMITIES: Normal appearance, no pedal edema. NEURO: Alert to self only, follows commands. PSYCH: Normal affect. Const Vital Signs: 03/22/24 12:22 03/22/24 12:56 03/22/24 12:57 Temperature 98.9 F Temperature Source Oral Pulse Rate 79 Respiratory Rate 22 H Respiratory Effort Normal Non-Labored Respiratory Depth Normal Respiratory Pattern Normal Blood Pressure 114/60 Blood Pressure Mean 78 Pulse Ox 92 91 Oxygen Delivery Method Nasal Cannula Nasal Cannula Nasal Cannula Oxygen Flow Rate (L/min) 3 3 3 03/22/24 13:00 03/22 (more content not included)... Normal [facility] Epithelial cells.squamous LM Ql (Urine sed)Ordered By: Glenys Bland on 03-22-2024 Epithelial cells.squamous LM.HPF (Urine sed) [#/Area] 10 /[HPF] 5-10 [facility] Erythrocyte Sed Rateon 03-22 SED RATE 56 mm/hr High 0-30 [facility] Comment on above: Performed By: #### L 500.2500, L100.0500 #### [facility] [address] [facility] [place], [place], [id number] Erythrocyte sedimentation ra teOrdered By: Chasity Huffman on 03-22-2024 ESR (Bld) [Velocity] 56 mm/h High 0-30 [facility] Ferritinon 03-22-2024 Ferritin [Mass/Vol] 14 ng/mL Normal [facility] Comment on above: Order Comment: 127.1 Performed By: #### L 500.2500, L100.0500 #### [facility] [address] [facility] [place], [place], [id number] Ferritin measurementOrdered By: Chasity Huffman on 03-22-2024 Ferritin [Mass/Vol] 14 ng/mL [facility] Glucose Ql (U)Ordered By: Katheryn Bland on 03-22-2024 Urine Glucose (UA) Normal mg/dl Normal [facility] H AND P Exam - Hospitaliston 03-22-2024 H&P Exam - Hospitalist [facility] Medical Records Department [address] [place] [address] H P Exam - Hospitalist 03/22/24 1435 MR#: [id number] Acct: [id number] Name: KARLIE VALLE Rep #: [id number] : 1940 83 From: Chasity Huffman MD PCP: Dr. Edouard Grayson MD Status:ADM IN [id number] - General General Date of Admission: 03/22/24 Date of Service: 03/22/24 Chief Complaint: Cough, dyspnea, hypoxia at SNF, COVID + at SNF. HPI Narrative The patient is an 83 y/o F w/ PMHx: Chronic memory impairment/possible underlying dementia unclear type with unclear behavioral disturbance history, CKD stage II versus stage III unclear subtype, HTN, HLD, chronic dysphagia with history of esophageal stenosis, GERD w/ Hx GI bleed with angiodysplasia of the stomach and duodenum, Hx CVA, PAF, RLS, Anxiety and Depression, Chronic migraine headaches, IBS, Chronic normocytic anemia/Fe deficiency anemia who presents to the [facility] ED on 03/22/24 with history of recent positive COVID testing 03/21/2024 at the [facility] with onset of fever at that time 101.1 with increased respiratory rate and mild distress noted to be hypoxic at 84% on room air administered Tylenol at that time the patient remained very weak with poor oral intake prompting ED evaluation. Workup in the ED included T98.9, heart 79, BP 114/60, respiratory rate 22, 92% on 3 L nasal cannula with most recent repeat vitals T98.5, heart rate 79, BP 119/67, respiratory rate 22, 94% on 3 L nasal cannula, CBC with RBC 10.8, hemoglobin 9.8, MCV 77, platelet 319 without marked shift, BMP with chloride 110, BUN/creatinine 24/1.07, GFR 22, glucose 122, troponin 14, urinalysis with specific gravity 1.020, protein 15, occult blood 50, negative nitrite, leukocyte esterase 100, urine RBC 0-5, urine WBCs 5-10, squamous epithelial cells noted to be 10-25 unfortunately a poor sample with 4+ urine bacteria, requested repeat urinalysis performed as the catheterization with a repeat urine culture from that sample to be cautious, CT brain with no acute intracranial findings with chronic involutional white matter changes with chronic cerebral and cerebellar infarcts noted prior, chest x-ray moderate hiatal hernia with mild bibasilar atelectasis, rapid SARS COVID/influenza/RSV PCR with positive COVID result. As noted repeat catheterized urinalysis and urine culture requested given for sample. In the ED patient history of 1 L normal saline. Family notes that there has been a significant outbreak at the [facility] and several individuals have COVID. From review of records it appears as if she was started on Decadron and Paxlovid but unsure how many doses thus far. [facility] Medical History Depression GI bleed Dementia HTN (hypertension) Esophageal stenosis Angiodysplasia of duodenum Angiodysplasia of stomach Paroxysmal A-fib LAE (left atrial enlargement) Shingles GIB (gastrointestinal bleeding) Stroke/cerebrovascula r accident Atrial fibrillation Essential hypertension Polyp of nasal cavity Other chronic sinusitis Wears hearing aid Wears glasses Arthritis Kidney stones Migraine headache History of hiatal hernia Non-smoker Cardiology follow-up encounter Atherosclerosis of coronary artery of [place] heart without angina pectoris Osteoporosis IBS (irritable bowel syndrome) GERD (gastroesophageal reflux disease) Hyperlipidemia Home Medications ???Medication ???Instructions ???Recorded ???Last Taken ???Type acetaminophen 500 mg tablet 1,000 mg (2 x 500 mg) PO Q8 PRN 02/20/22 12/29/22 Rx fever/pain 1-10 #0 tabs metoprolol tartrate 25 mg tablet 25 mg PO BID BP 02/20/22 12/30/22 History menthol 0.44 %-zinc oxide 20.6 % 1 applic topical BID #0 grams 03/09/22 Unknown Rx topical ointment (Calmoseptine) pramipexole 0.125 mg tablet 0.125 mg PO QHS #0 tabs 03/09/22 12/29/22 Rx sennosides 8.6 mg-docusate sodium 1 tab-cap PO DAILY constipation 12/30/22 12/30/22 History 50 mg tablet (2-in-1 Laxative) apixaban 2.5 mg tablet (Eliquis) 2.5 mg PO BID #60 tabs 01/02/23 Unknown Rx atorvastatin 20 mg tablet 20 mg PO QHS 03/22/24 Unknown History dexamethasone 4 mg tablet 4 mg PO Q12H 03/22/24 Unknown History escitalopram oxalate 10 mg tablet 10 mg PO DAILY 03/22/24 Unknown History escitalopram oxalate 5 mg tablet 5 mg PO DAILY 03/22/24 Unknown History mirtazapine 7.5 mg tablet 7.5 mg PO QHS 03/22/24 Unknown History nirmatrelvir 300 mg (150 mg 3 tab PO BID 03/22/24 Unknown History x2)-ritonavir 100 mg tablet,dose pack (Paxlovid) omeprazole 20 mg capsule,delayed 20 mg PO DAILY 03/22/24 Unknown History release oxybutynin chloride 5 mg tablet 5 mg PO DAILY 03/22/24 Unknown History polyethylene glycol 3350 17 17 g PO DAILY 03/22/24 Unknown History gram/dose oral powder (Alma (more content not included)... Normal [facility] Influenza virus A and B and SARS-CoV-2 (COVID-19) and Respiratory syncytial virus RNAOrdered By: Glenys Bland on 03-22-2024 SARS-CoV-2 (COVID-19) RNA CHRIS+probe Ql (Unsp spec) SARS-CoV-2 (COVID 19 PCR) Abnormal [facility] Ketones Test strip Ql (U)Ord ered By: Glenys Bland on 03-22-2024 Ketones Ql (U) Negative Negative [facility] L501.4020on 03-22-2024 TROPONIN-I HS 14 pg/mL Normal 3.0-54.0 [facility] Comment on above: Order Comment: 127.1 Result Comment: Xin velazquez Note: New Test Units and Gender Specific Reference Ranges. For more information see Policy Stat Procedure Ennice High Sensitivity Troponin (TNIH) and attachments. Performed By: #### L 500.2500, L100.0500 #### [facility] [address] [place], [place], [address] LDHon 03-22-2024 LDH 173 U/L Normal 84-246 [facility] Comment on above: Order Comment: 127.1 Performed By: #### L 500.2500, L100.0500 #### [facility] [address] [place], [address] Lactate dehydrogenase (LDH) measurementOrdered By: Chasity Huffman on 03-22-2024 LDH [Catalytic activity/Vol] 173 U/L 84-246 [facility] Liver Profileon 03-22-2024 Albumin [Mass/Vol] 3.2 g/dL Normal 3.2-5.0 [facility] Comment on above: Order Comment: 127.1 Performed By: #### L 501.2400, L500.4050, L100.0100 #### [facility] [address] [place], [address] ALK P 98 U/L Normal 45-117 [facility] Comment on above: Order Comment: 127.1 Performed By: #### L 501.2400, L500.4050, L100.0100 #### [facility] [address] [place], [address] ALT [Catalytic activity/Vol] 29 U/L Normal 13-56 [facility] Comment on above: Order Comment: 127.1 Performed By: #### L 501.2400, L500.4050, L100.0100 #### [facility] [address] [place], [address] AST [Catalytic activity/Vol] 22 U/L Normal 15-37 [facility] Comment on above: Order Comment: 127.1 Performed By: #### L 501.2400, L500.4050, L100.0100 #### [facility] [address] [place], [address] Bilirubin [Mass/Vol] 0.60 mg/dL Normal 0.20-1.00 [facility] Comment on above: Order Comment: 127.1 Result Comment: For patients on eltrombopag therapy, use of Dimension Ennice TBIL is not recommended. Performed By: #### L 501.2400, L500.4050, L100.0100 #### [facility] [address] [place], [address] Bilirubin.direct [Mass/Vol] 0.07 mg/dL Normal 0.00-0.30 [facility] Comment on above: Order Comment: 127.1 Performed By: #### L 501.2400, L500.4050, L100.0100 #### [facility] [address] [place], [address] Globulin (S) [Mass/Vol] 4.7 g/dL High 2.2-4.2 [facility] Comment on above: Order Comment: 127.1 Performed By: #### L 501.2400, L500.4050, L100.0100 #### [facility] [address] [place], [address] T PROT 7.9 g/dL Normal 6.4-8.2 [facility] Comment on above: Order Comment: 127.1 Performed By: #### L 501.2400, L500.4050, L100.0100 #### [facility] [address] [place], [address] M100.678on 03-22-2024 M100.678 Copy of report sent to Infection Control Printer [id number] 03/22/24 1347 VSICK. SARS-CoV-2 (COVID 19) A Positive A INFLUENZA A Negative INFLUENZA B Negative RSV PCR Negative SARS-CoV-2 (COVID 19 PCR) Normal [facility] Comment on above: Performed By: #### L 501.2400, L500.4050, L100.0100 #### [facility] [address] [place], [address] Microscopic analysis of urin e for red blood cells (RBC)Ordered By: Glenys Bland on 03-22-2024 Urine RBC 0-5 SEEN /hpf 0-5 [facility] Mucus LM Ql (Urine sed)Order ed By: Glenys Bland on 03-22-2024 Mucus Ql (Urine sed) 0 SEEN /hpf [facility] Nitrite Test strip Ql (U)Ord ered By: lGenys Bland on 03-22-2024 Nitrite Ql (U) Negative Negative [facility] Protein Test strip Ql (U)Ord ered By: Glenys Bland on 03-22-2024 Protein Ql (U) 15 mg/dl High Negative [facility] Serum procalcitonin measurem entOrdered By: Chasity Huffman on 03-22-2024 Procalcitonin 0.11 ng/mL High 0.00-0.09 [facility] Comment on above: A procalcitonin (PCT ) level above 2.0 ng/mL on the first day of ICU admission is associated with a high risk for progression to severe sepsis and/or septic shock. A PCT level below 0.5 ng/mL on the first day of ICU admission is associated with a low risk for progression to severe and/or septic shock. Note: Concentrations <0.5 ng/mL do not exclude an infection on account of localized infections (without systemic signs) which can be associated with such low concentrations, or a systemic infection in its initial stages (<6 hours). Furthermore, increased procalcitonin can occur without infection. PCT concentrations between 0.5 and 2.0 ng/mL should be interpreted taking into account the patient's history. It is recommended to retest PCT within 6-24 hours if any concentrations <2 ng/mL are obtained. Result Comment: A procalcitonin (PCT) level above 2.0 ng/mL on the first day of ICU admission is associated with a high risk for progression to severe sepsis and/or septic shock. A PCT level below 0.5 ng/mL on the first day of ICU admission is associated with a low risk for progression to severe and/or septic shock. Note: Concentrations <0.5 ng/mL do not exclude an infection on account of localized infections (without systemic signs) which can be associated with such low concentrations, or a systemic infection in its initial stages (<6 hours). Furthermore, increased procalcitonin can occur without infection. PCT concentrations between 0.5 and 2.0 ng/mL should be interpreted taking into account the patient's history. It is recommended to retest PCT within 6-24 hours if any concentrations <2 ng/mL are obtained. Performed By: #### L 500.2500, L100.0500 #### [facility] [address] [place], [address] Total creatine kinase measur ementOrdered By: Cahsity Huffman on 03-22-2024 CK [Catalytic activity/Vol] 42 U/L 26-192 [facility] Troponin IOrdered By: Glenys bustos on 03-22-2024 Troponin I High Sensitivity 14 pg/mL 3.0-54.0 [facility] Comment on above: Please Note: New Pam t Units and Gender Specific Reference Ranges. For more information see Policy Stat Procedure Ennice High Sensitivity Troponin (TNIH) and attachments. Urinalysis, Completeon 03-22 BACTERIA Normal None Seen [facility] Comment on above: Order Comment: 127.1 Result Comment: DUPL ICATE Performed By: #### L 501.2400, L500.4050, L100.0100 #### [facility] [address] [place], [address] BILIRUBIN URINE Normal Negative [facility] Comment on above: Order Comment: 127.1 Result Comment: DUPL ICATE Performed By: #### L 501.2400, L500.4050, L100.0100 #### [facility] [address] [place], [address] Clarity (U) Normal Clear [facility] Comment on above: Order Comment: 127.1 Result Comment: DUPL ICATE Performed By: #### L 501.2400, L500.4050, L100.0100 #### [facility] [address] [place], [address] Color (U) Normal Yellow [facility] Comment on above: Order Comment: 127.1 Result Comment: DUPL ICATE Performed By: #### L 501.2400, L500.4050, L100.0100 #### [facility] [address] [place], [address] EPI,SQUAMOUS Normal 5-10 [facility] Comment on above: Order Comment: 127.1 Result Comment: DUPL ICATE Performed By: #### L 501.2400, L500.4050, L100.0100 #### [facility] [address] [place], [address] GLUCOSE, UR Normal Normal [facility] Comment on above: Order Comment: 127.1 Result Comment: DUPL ICATE Performed By: #### L 501.2400, L500.4050, L100.0100 #### [facility] [address] [place], [address] KETONE UR Normal Negative [facility] Comment on above: Order Comment: 127.1 Result Comment: DUPL ICATE Performed By: #### L 501.2400, L500.4050, L100.0100 #### [facility] [address] [place], [address] LEUK ESTERASE Normal Negative [facility] Comment on above: Order Comment: 127.1 Result Comment: DUPL ICATE Performed By: #### L 501.2400, L500.4050, L100.0100 #### [facility] [address] [place], [address] Mucus Ql (Urine sed) Normal [facility] Comment on above: Order Comment: 127.1 Result Comment: DUPL ICATE Performed By: #### L 501.2400, L500.4050, L100.0100 #### [facility] [address] [place], [address] Nitrite Ql (U) Normal Negative [facility] Comment on above: Order Comment: 127.1 Result Comment: DUPL ICATE Performed By: #### L 501.2400, L500.4050, L100.0100 #### [facility] [address] [place], [address] OCCULT BLOOD-UR Normal Negative [facility] Comment on above: Order Comment: 127.1 Result Comment: DUPL ICATE Performed By: #### L 501.2400, L500.4050, L100.0100 #### [facility] [address] [place], [address] pH UR Normal 5.0 - 8.0 [facility] Comment on above: Order Comment: 127.1 Result Comment: DUPL ICATE Performed By: #### L 501.2400, L500.4050, L100.0100 #### [facility] [address] [place], [address] PROT DIPSTX Normal Negative [facility] Comment on above: Order Comment: 127.1 Result Comment: DUPL ICATE Performed By: #### L 501.2400, L500.4050, L100.0100 #### [facility] [address] [place], [address] RBC Normal 0-5 [facility] Comment on above: Order Comment: 127.1 Result Comment: DUPL ICATE Performed By: #### L 501.2400, L500.4050, L100.0100 #### [facility] [address] [place], [address] SP.GR. DIPSTX Normal 1.002-1.030 [facility] Comment on above: Order Comment: 127.1 Result Comment: DUPL ICATE Performed By: #### L 501.2400, L500.4050, L100.0100 #### [facility] [address] [place], [address] UR Preservative Normal [facility] Comment on above: Order Comment: 127.1 Result Comment: DUPL ICATE Performed By: #### L 501.2400, L500.4050, L100.0100 #### [facility] [address] [place], [address] UROBILI Normal Normal [facility] Comment on above: Order Comment: 127.1 Result Comment: DUPL ICATE Performed By: #### L 501.2400, L500.4050, L100.0100 #### [facility] [address] [place], [address] WBC Normal 0-5 [facility] Comment on above: Order Comment: 127.1 Result Comment: DUPL ICATE Performed By: #### L 501.2400, L500.4050, L100.0100 #### [facility] [address] [place], [address] EPI,SQUAMOUS 10-25 SEEN Normal 5-10 [facility] Comment on above: Order Comment: 127.1 Performed By: #### L 500.2500, L100.0500 #### [facility] [address] [place], [address] BACTERIA 4+ /hpf Normal None Seen [facility] Comment on above: Order Comment: 127.1 Performed By: #### L 500.2500, L100.0500 #### [facility] [address] [place], [address] RBC 0-5 SEEN Normal 0-5 [facility] Comment on above: Order Comment: 127.1 Performed By: #### L 500.2500, L100.0500 #### [facility] [address] [place], [address] WBC 5-10 SEEN Normal 0-5 [facility] Comment on above: Order Comment: 127.1 Performed By: #### L 500.2500, L100.0500 #### [facility] [address] [place], [address] Mucus Ql (Urine sed) 0 SEEN Normal [facility] Comment on above: Order Comment: 127.1 Performed By: #### L 500.2500, L100.0500 #### [facility] [address] [place], [address] Urine blood detectionOrdered By: Glenys Bland on 03-22-2024 Urine Occult Blood 50 /ul High Negative [facility] Urine clarityOrdered By: Yvette Bland on 03-22-2024 Clarity (U) Cloudy Clear [facility] Urine color determinationOrd ered By: Glenys Bland on 03-22-2024 Color (U) Yellow Yellow [facility] Urine cultureOrdered By: Aut umn White on 03-22-2024 Bacteria identified Cx Nom (U) Enterococcus faecalis Abnormal [facility] Bacteria identified Cx Nom (U) Aerococcus urinae Abnormal [facility] Urine leukocyte esterase det ection by dipstickOrdered By: Glenys Bland on 03-22-2024 Leukocyte esterase Test strip Ql (U) 100 /ul High Negative [facility] Urine pHOrdered By: Glenys robledo on 03-22-2024 pH (U) 6.0 [pH] 5.0 - 8.0 [facility] Urine sediment bacteria coun t by microscopy (number/high power field)Ordered By: Glenys Bland on 03-22-2024 Bacteria LM.HPF (Urine sed) [#/Area] 4 /[HPF] None Seen [facility] Urine specific gravity measu rementOrdered By: Glenys Bland on 03-22-2024 Specific gravity (U) [Rel density] 1.020 1.002-1.030 [facility] Urobilinogen Ql (U)Ordered B y: Glenys Bland on 03-22-2024 Urine Urobilinogen Normal mg/dl Normal [facility] White blood cell countOrdere d By: Glenys Bland on 03-22-2024 Urine WBC 5-10 SEEN /hpf 0-5 [facility] CBC-Complete Blood Cnt No Di ffon 12-31-2023 Erythrocyte distribution width (RBC) [Ratio] 16.9 % High 11.6-14.6 [facility] Comment on above: Order Comment: 127.1 Performed By: #### L 100.0500 #### [facility] [address] [place], [place], [id number] Hematocrit (Bld) [Volume fraction] 32.0 % Low 37-47 [facility] Comment on above: Order Comment: 127.1 Performed By: #### L 100.0500 #### [facility] [address] [place], [address] Hemoglobin (Bld) [Mass/Vol] 10.0 g/dL Low 12.0-15.0 [facility] Comment on above: Order Comment: 127.1 Performed By: #### L 100.0500 #### [facility] [address] [place], [address] MCH (RBC) [Entitic mass] 27.2 pg Normal 27.0-32.0 [facility] Comment on above: Order Comment: 127.1 Performed By: #### L 100.0500 #### [facility] [address] [place], [address] MCHC (RBC) [Mass/Vol] 31.3 g/dL Low 32-36 [facility] Comment on above: Order Comment: 127.1 Performed By: #### L 100.0500 #### [facility] [address] [place], [address] MCV (RBC) [Entitic vol] 87.0 fL Normal 81-99 [facility] Comment on above: Order Comment: 127.1 Performed By: #### L 100.0500 #### [facility] [address] [place], [address] Platelet mean volume (Bld) [Entitic vol] 9.5 fL Normal 6.2-12.0 [facility] Comment on above: Order Comment: 127.1 Performed By: #### L 100.0500 #### [facility] [address] [place], [address] Platelets (Bld) [#/Vol] 345 10*3/uL Normal 150-450 [facility] Comment on above: Order Comment: 127.1 Performed By: #### L 100.0500 #### [facility] [address] [place], [address] RBC (Bld) [#/Vol] 3.68 10*6/uL Low 4.2-5.4 [facility] Comment on above: Order Comment: 127.1 Performed By: #### L 100.0500 #### [facility] [address] [place], [address] RDW SD 50.2 fl High 35.1-43.9 [facility] Comment on above: Order Comment: 127.1 Performed By: #### L 100.0500 #### [facility] [address] [place], [address] WBC (Bld) [#/Vol] 9.7 10*3/uL Normal 4.4-11.0 [facility] Comment on above: Order Comment: 127.1 Performed By: #### L 100.0500 #### [facility] [address] [place], [address] Urine Cultureon 12-15-2023 [facility] Streptococcus agalactiae (B) [place] Count 80,000-100,000 Streptococcus agalactiae (B): REACTION Ampicillin Islt YANCI <=0.25 Penicillin G Islt YANCI 0.12 S cefTRIAXone Islt YANCI <=0.12 S Clindamycin Islt YANCI >=1 R Clindamycin.induced Susc Islt NEG Linezolid Islt YANCI <=2 S Vancomycin Islt YANCI 0.5 S Normal [facility] Comment on above: Performed By: #### L 501.2400, L500.4050, L100.0100 #### [facility] [address] [place], [address] Basic Metabolic Profile (BMP )on 10-01-2023 BUN/CRE 21.7 RATIO High 10-20 [facility] Comment on above: Order Comment: 127.1 Performed By: #### L 500.2500, L100.0500 #### [facility] [address] [place], [address] CA,Total 9.2 mg/dL Normal 8.5-10.1 [facility] Comment on above: Order Comment: 127.1 Performed By: #### L 500.2500, L100.0500 #### [facility] [address] [place], [address] Chloride [Moles/Vol] 108 mmol/L High 98-107 [facility] Comment on above: Order Comment: 127.1 Performed By: #### L 500.2500, L100.0500 #### [facility] [address] [place], [address] CO2 [Moles/Vol] 23.0 mmol/L Normal 21.0-32.0 [facility] Comment on above: Order Comment: 127.1 Performed By: #### L 500.2500, L100.0500 #### [facility] [address] [place], [address] Creatinine [Mass/Vol] 1.15 mg/dL High 0.55-1.02 [facility] Comment on above: Order Comment: 127.1 Result Comment: The validity of the calculated GFR GFRAA in patients over 70 years has not been determined. Clinical correlation is essential. Performed By: #### L 500.2500, L100.0500 #### [facility] [address] [place], [address] EST GFR - AA 58 mL/min Low >60 [facility] Comment on above: Order Comment: 127.1 Result Comment: Afri can German GFR Calc Performed By: #### L 500.2500, L100.0500 #### [facility] [address] [place], [address] GAP 9 Normal 5-15 [facility] Comment on above: Order Comment: 127.1 Performed By: #### L 500.2500, L100.0500 #### [facility] [address] [place], [address] GFR/1.73 sq M.predicted among non-blacks MDRD (S/P/Bld) [Vol rate/Area] 48 mL/min/{1.73_m2} Low >60 [facility] Comment on above: Order Comment: 127.1 Result Comment: Non- GFR Calc Performed By: #### L 500.2500, L100.0500 #### [facility] [address] [place], [address] Glucose [Mass/Vol] 130 mg/dL High 74-106 [facility] Comment on above: Order Comment: 127.1 Result Comment: Fast ing Glucose result greater than or equal to 126 mg/dL suggests DIABETES MELLITUS per A.D.A. criteria. Performed By: #### L 500.2500, L100.0500 #### [facility] [address] [place], [address] Potassium [Moles/Vol] 4.1 mmol/L Normal 3.5-5.1 [facility] Comment on above: Order Comment: 127.1 Performed By: #### L 500.2500, L100.0500 #### [facility] [address] [place], [address] Sodium [Moles/Vol] 140 mmol/L Normal 136-145 [facility] Comment on above: Order Comment: 127.1 Performed By: #### L 500.2500, L100.0500 #### [facility] [address] [place], [address] Urea nitrogen [Mass/Vol] 25 mg/dL High 7-18 [facility] Comment on above: Order Comment: 127.1 Performed By: #### L 500.2500, L100.0500 #### [facility] [address] [place], [address] CBC-Complete Blood Cnt No Di ffon 10-01-2023 Erythrocyte distribution width (RBC) [Ratio] 16.8 % High 11.6-14.6 [facility] Comment on above: Order Comment: 127.1 Performed By: #### L 500.2500, L100.0500 #### [facility] [address] [place], [address] Hematocrit (Bld) [Volume fraction] 34.4 % Low 37-47 [facility] Comment on above: Order Comment: 127.1 Performed By: #### L 500.2500, L100.0500 #### [facility] [address] [place], [address] Hemoglobin (Bld) [Mass/Vol] 10.7 g/dL Low 12.0-15.0 [facility] Comment on above: Order Comment: 127.1 Performed By: #### L 500.2500, L100.0500 #### [facility] [address] [place], [address] MCH (RBC) [Entitic mass] 26.4 pg Low 27.0-32.0 [facility] Comment on above: Order Comment: 127.1 Performed By: #### L 500.2500, L100.0500 #### [facility] [address] [place], [address] MCHC (RBC) [Mass/Vol] 31.1 g/dL Low 32-36 [facility] Comment on above: Order Comment: 127.1 Performed By: #### L 500.2500, L100.0500 #### [facility] [address] [place], [address] MCV (RBC) [Entitic vol] 84.9 fL Normal 81-99 [facility] Comment on above: Order Comment: 127.1 Performed By: #### L 500.2500, L100.0500 #### [facility] [address] [place], [address] Platelet mean volume (Bld) [Entitic vol] 9.7 fL Normal 6.2-12.0 [facility] Comment on above: Order Comment: 127.1 Performed By: #### L 500.2500, L100.0500 #### [facility] [address] [place], [address] Platelets (Bld) [#/Vol] 326 10*3/uL Normal 150-450 [facility] Comment on above: Order Comment: 127.1 Performed By: #### L 500.2500, L100.0500 #### [facility] [address] [place], [address] RBC (Bld) [#/Vol] 4.05 10*6/uL Low 4.2-5.4 [facility] Comment on above: Order Comment: 127.1 Performed By: #### L 500.2500, L100.0500 #### [facility] [address] [place], [address] RDW SD 51.6 fl High 35.1-43.9 [facility] Comment on above: Order Comment: 127.1 Performed By: #### L 500.2500, L100.0500 #### [facility] [address] [place], [address] WBC (Bld) [#/Vol] 7.8 10*3/uL Normal 4.4-11.0 [facility] Comment on above: Order Comment: 127.1 Performed By: #### L 500.2500, L100.0500 #### [facility] [address] [place], [address] Basophil percentageOrdered B y: Edouard Kenan on 07-02-2023 Chloride [Moles/Vol] 111 mmol/L 98-107 [facility] Cholesterol [Mass/Vol] 154 mg/dL <200 [facility] Comment on above: <200 mg/dL Desirable 200-240 mg/dL Borderline >240 mg/dL High Risk Glucose [Mass/Vol] 118 mg/dL 74-106 [facility] Comment on above: Fasting Glucose resu lt from 100 to 125 mg/dL suggests IMPAIRED HOMEOSTASIS per A.D.A. criteria. Hemoglobin (Bld) [Mass/Vol] 10.5 g/dL 12.0-15.0 [facility] Potassium [Moles/Vol] 3.8 mmol/L 3.5-5.1 [facility] Sodium [Moles/Vol] 141 mmol/L 136-145 [facility] Triglyceride [Mass/Vol] 138 mg/dL <199 [facility] Comment on above: The drugs N-Acetylcy steine and Metamizole may falsely depress this assay.Serum Triglycerides Reference Interval Normal <150 mg/dL Borderline high 150 - 199 mg/dL High 200 - 499 mg/dL Very High > or = 500 mg/dL WBC (Bld) [#/Vol] 8.4 10*3/uL 4.4-11.0 [facility] Determination of erythrocyte mean corpuscular volume (MCV)Ordered By: Edouard Grayson on 07-02-2023 MCV (RBC) [Entitic vol] 84.8 fL 81-99 [facility] Erythrocyte distribution wid th ratioOrdered By: Edouard Grayson on 07-02-2023 Erythrocyte distribution width (RBC) [Ratio] 15.0 % 11.6-14.6 [facility] Erythrocyte distribution wid th standard deviationOrdered By: Edouard Grayson on 07-02-2023 Erythrocyte distribution width (RBC) [Entitic vol] 46.5 fL 35.1-43.9 [facility] Hematocrit Auto (Bld) [Volum e fraction]Ordered By: Edouard Grayson on 07-02-2023 Hematocrit (Bld) [Volume fraction] 33.4 % 37-47 [facility] - Chemistry and C hemistry - challengeOrdered By: Edouard Grayson on 07-02-2023 Cholesterol in HDL [Mass/Vol] 40 mg/dL >40 [facility] Comment on above: The drugs N-Acetylcy steine and Metamizole may falsely depress this assay. Reference Range HDL <40 mg/dL Low HDL Cholesterol HDL >or= 60 mg/dL High HDL Cholesterol Cholesterol in LDL [Mass/Vol] 86 mg/dL 0-130 [facility] CO2 [Moles/Vol] 24.0 mmol/L 21.0-32.0 [facility] Urea nitrogen/Creatinine [Mass ratio] 26.3 mg/mg 10-20 [facility] - Hematology and Cell countsOrdered By: Edouard Grayson on 07-02-2023 MCH (RBC) [Entitic mass] 26.6 pg 27.0-32.0 [facility] MCHC (RBC) [Mass/Vol] 31.4 g/dL 32-36 [facility] Platelet mean volume (Bld) [Entitic vol] 9.7 fL 6.2-12.0 [facility] Platelets (Bld) [#/Vol] 335 10*3/uL 150-450 [facility] No Panel InformationOrdered By: Edouard Grayson on 07-02-2023 Estimated GFR (MDRD) Amer 76 mL/min >60 [facility] Comment on above: GFR Calc Estimated GFR (MDRD) Non-Af Amer 63 mL/min >60 [facility] Comment on above: Non- GFR Calc VLDL Cholesterol 28 mg/dL 5-40 [facility] RBC Auto (Bld) [#/Vol]Ordere d By: Edouard Grayson on 07-02-2023 RBC (Bld) [#/Vol] 3.94 10*6/uL 4.2-5.4 [facility] Serum or plasma calcium jasmin urement (mass/volume)Ordered By: Edouard Grayson on 07-02-2023 Calcium [Mass/Vol] 8.7 mg/dL 8.5-10.1 [facility] Serum or plasma creatinine m easurement (mass/volume)Ordered By: Edouard Grayson on 07-02-2023 Creatinine [Mass/Vol] 0.91 mg/dL 0.55-1.02 [facility] Comment on above: The validity of the calculated GFR & GFRAA in patients over 70 years has not been determined. Clinical correlation is essential. Serum or plasma urea nitroge n measurement (mass/volume)Ordered By: Edouard Grayson on 07-02-2023 Urea nitrogen [Mass/Vol] 24 mg/dL 7-18 [facility] Thin prep Papanicolaou smear with manual screeningOrdered By: Edouard Grayson on 07-02-2023 Thin prep Papanicolaou smear with manual screening 6 5-15 [facility] Basophil percentageOrdered B y: Edouard Grayson on 05-02-2023 Hemoglobin (Bld) [Mass/Vol] 11.6 g/dL 12.0-15.0 [facility] WBC (Bld) [#/Vol] 10.2 10*3/uL 4.4-11.0 [facility] Determination of erythrocyte mean corpuscular volume (MCV)Ordered By: Edouard Grayson on 05-02-2023 MCV (RBC) [Entitic vol] 89.8 fL 81-99 [facility] Erythrocyte distribution wid th ratioOrdered By: Edouard Grayson on 05-02-2023 Erythrocyte distribution width (RBC) [Ratio] 14.8 % 11.6-14.6 [facility] Erythrocyte distribution wid th standard deviationOrdered By: Edouard Grayson on 05-02-2023 Erythrocyte distribution width (RBC) [Entitic vol] 48.8 fL 35.1-43.9 [facility] Hematocrit Auto (Bld) [Volum e fraction]Ordered By: Edouard Grayson on 05-02-2023 Hematocrit (Bld) [Volume fraction] 37.1 % 37-47 [facility] Laboratory - Hematology and Cell countsOrdered By: Edouard Grayson on 05-02-2023 MCH (RBC) [Entitic mass] 28.1 pg 27.0-32.0 [facility] MCHC (RBC) [Mass/Vol] 31.3 g/dL 32-36 [facility] Platelet mean volume (Bld) [Entitic vol] 10.0 fL 6.2-12.0 [facility] Platelets (Bld) [#/Vol] 330 10*3/uL 150-450 [facility] RBC Auto (Bld) [#/Vol]Ordere d By: Edouard Grayson on 05-02-2023 RBC (Bld) [#/Vol] 4.13 10*6/uL 4.2-5.4 [facility] Basophil percentageOrdered B y: Edouard Grayson on 04-02-2023 Chloride [Moles/Vol] 111 mmol/L 98-107 [facility] Glucose [Mass/Vol] 115 mg/dL 74-106 [facility] Comment on above: Fasting Glucose resu lt from 100 to 125 mg/dL suggests IMPAIRED HOMEOSTASIS per A.D.A. criteria. Hemoglobin (Bld) [Mass/Vol] 11.4 g/dL 12.0-15.0 [facility] Potassium [Moles/Vol] 4.2 mmol/L 3.5-5.1 [facility] Sodium [Moles/Vol] 140 mmol/L 136-145 [facility] WBC (Bld) [#/Vol] 9.9 10*3/uL 4.4-11.0 [facility] Determination of erythrocyte mean corpuscular volume (MCV)Ordered By: Edouard Grayson on 04-02-2023 MCV (RBC) [Entitic vol] 86.4 fL 81-99 [facility] Erythrocyte distribution wid th ratioOrdered By: Edouard Grayson on 04-02-2023 Erythrocyte distribution width (RBC) [Ratio] 19.5 % 11.6-14.6 [facility] Erythrocyte distribution wid th standard deviationOrdered By: Edouard Grayson on 04-02-2023 Erythrocyte distribution width (RBC) [Entitic vol] 62.4 fL 35.1-43.9 [facility] Hematocrit Auto (Bld) [Volum e fraction]Ordered By: Edouard Grayson on 04-02-2023 Hematocrit (Bld) [Volume fraction] 36.9 % 37-47 [facility] Laboratory - Chemistry and C hemistry - challengeOrdered By: Edouard Grayson on 04-02-2023 CO2 [Moles/Vol] 23.0 mmol/L 21.0-32.0 [facility] Urea nitrogen/Creatinine [Mass ratio] 24.4 mg/mg 10-20 [facility] Laboratory - Hematology and Cell countsOrdered By: Edouard Grayson on 04-02-2023 MCH (RBC) [Entitic mass] 26.7 pg 27.0-32.0 [facility] MCHC (RBC) [Mass/Vol] 30.9 g/dL 32-36 [facility] Platelets (Bld) [#/Vol] 354 10*3/uL 150-450 [facility] No Panel InformationOrdered By: Edouard Grayson on 04-02-2023 Estimated GFR (MDRD) Amer 77 mL/min >60 [facility] Comment on above: GFR Calc Estimated GFR (MDRD) Non-Af Amer 64 mL/min >60 [facility] Comment on above: Non- GFR Calc Platelet mean volume Richard-Ec ker (Bld) [Entitic vol]Ordered By: Edouard Grayson on 04-02-2023 Platelet mean volume (Bld) [Entitic vol] 9.4 fL 6.2-12.0 [facility] RBC Auto (Bld) [#/Vol]Ordere d By: Edouard Grayson on 04-02-2023 RBC (Bld) [#/Vol] 4.27 10*6/uL 4.2-5.4 [facility] Serum or plasma calcium jasmin urement (mass/volume)Ordered By: Edouard Grayson on 04-02-2023 Calcium [Mass/Vol] 9.7 mg/dL 8.5-10.1 [facility] Serum or plasma creatinine m easurement (mass/volume)Ordered By: Edouard Grayson on 04-02-2023 Creatinine [Mass/Vol] 0.90 mg/dL 0.55-1.02 [facility] Comment on above: The validity of the calculated GFR & GFRAA in patients over 70 years has not been determined. Clinical correlation is essential. Serum or plasma urea nitroge n measurement (mass/volume)Ordered By: Edouard Grayson on 04-02-2023 Urea nitrogen [Mass/Vol] 22 mg/dL 7-18 [facility] Thin prep Papanicolaou smear with manual screeningOrdered By: Edouard Grayson on 04-02-2023 Thin prep Papanicolaou smear with manual screening 6 5-15 [facility] Basophil percentageOrdered B y: Edouard Grayson on 02-28-2023 WBC (Bld) [#/Vol] 7.9 10*3/uL 4.4-11.0 [facility] Blood erythrocytes count (nu mber/volume)Ordered By: Edouard Grayson on 02-28-2023 RBC (Bld) [#/Vol] 3.89 10*6/uL 4.2-5.4 [facility] Blood hemoglobin measurement (mass/volume)Ordered By: Edouard Grayson on 02-28-2023 Hemoglobin (Bld) [Mass/Vol] 10.6 g/dL 12.0-15.0 [facility] Blood manual differential co mment interpretation (narrative result)Ordered By: Edouard Grayson on 02-28-2023 Manual differential comment Zackary (Bld) [Interp] COMMENT [facility] Comment on above: 2+ ANISO. Blood platelet mean volumeOr dered By: Edouard Grayson on 02-28-2023 Platelet mean volume (Bld) [Entitic vol] 9.5 fL 6.2-12.0 [facility] Determination of erythrocyte mean corpuscular volume (MCV)Ordered By: Edouard Grayson on 02-28-2023 MCV (RBC) [Entitic vol] 86.6 fL 81-99 [facility] Hematocrit Auto (Bld) [Volum e fraction]Ordered By: Edouard Grayson on 02-28-2023 Hematocrit (Bld) [Volume fraction] 33.7 % 37-47 [facility] Laboratory - Hematology and Cell countsOrdered By: Edouard Grayson on 02-28-2023 Erythrocyte distribution width (RBC) [Entitic vol] 74.8 fL 35.1-43.9 [facility] Erythrocyte distribution width (RBC) [Ratio] 24.0 % 11.6-14.6 [facility] MCH (RBC) [Entitic mass] 27.2 pg 27.0-32.0 [facility] MCHC Auto (RBC) [Mass/Vol]Or dered By: Edouard Grayson on 02-28-2023 MCHC (RBC) [Mass/Vol] 31.5 g/dL 32-36 [facility] Platelets bldOrdered By: Earl Grayson on 02-28-2023 Platelets (Bld) [#/Vol] 238 10*3/uL 150-450 [facility] Basophil percentageOrdered B y: Edouard Grayson on 02-07-2023 Chloride [Moles/Vol] 110 mmol/L 98-107 [facility] Glucose [Mass/Vol] 123 mg/dL 74-106 [facility] Comment on above: Fasting Glucose resu lt from 100 to 125 mg/dL suggests IMPAIRED HOMEOSTASIS per A.D.A. criteria. Potassium [Moles/Vol] 3.7 mmol/L 3.5-5.1 [facility] Sodium [Moles/Vol] 140 mmol/L 136-145 [facility] WBC (Bld) [#/Vol] 9.1 10*3/uL 4.4-11.0 [facility] Blood erythrocytes count (nu mber/volume)Ordered By: Edouard Grayson on 02-07-2023 RBC (Bld) [#/Vol] 4.23 10*6/uL 4.2-5.4 [facility] Blood hemoglobin measurement (mass/volume)Ordered By: Edouard Grayson on 02-07-2023 Hemoglobin (Bld) [Mass/Vol] 10.9 g/dL 12.0-15.0 [facility] Blood manual differential co mment interpretation (narrative result)Ordered By: Edouard Grayson on 02-07-2023 Manual differential comment Zackary (Bld) [Interp] SCANNED [facility] Comment on above: 2+ ANISOCYTOSIS1+ RI CROCYTOSIS1+ MACROCYTOSIS Blood platelet mean volumeOr dered By: Edouard Grayson on 02-07-2023 Platelet mean volume (Bld) [Entitic vol] 10.0 fL 6.2-12.0 [facility] Determination of erythrocyte mean corpuscular volume (MCV)Ordered By: Edouard Grayson on 02-07-2023 MCV (RBC) [Entitic vol] 85.1 fL 81-99 [facility] Erythrocyte sedimentation ra teOrdered By: Edouard Grayson on 02-07-2023 ESR (Bld) [Velocity] 68 mm/h 0-30 [facility] Hematocrit Auto (Bld) [Volum e fraction]Ordered By: Edouard Grayson on 02-07-2023 Hematocrit (Bld) [Volume fraction] 36.0 % 37-47 [facility] Laboratory - Chemistry and C hemistry - challengeOrdered By: Edouard Grayson on 02-07-2023 CO2 [Moles/Vol] 26.0 mmol/L 21.0-32.0 [facility] Urea nitrogen/Creatinine [Mass ratio] 20.9 mg/mg 10-20 [facility] Laboratory - Hematology and Cell countsOrdered By: Edouard Grayson on 02-07-2023 Erythrocyte distribution width (RBC) [Entitic vol] 67.1 fL 35.1-43.9 [facility] Erythrocyte distribution width (RBC) [Ratio] 21.7 % 11.6-14.6 [facility] MCH (RBC) [Entitic mass] 25.8 pg 27.0-32.0 [facility] MCHC Auto (RBC) [Mass/Vol]Or dered By: Edouard Grayson on 02-07-2023 MCHC (RBC) [Mass/Vol] 30.3 g/dL 32-36 [facility] No Panel InformationOrdered By: Edouard Grayson on 02-07-2023 Estimated GFR (MDRD) Amer 76 mL/min >60 [facility] Estimated GFR (MDRD) Non-Af Amer 63 mL/min >60 [facility] Platelets bldOrdered By: Earl Grayson on 02-07-2023 Platelets (Bld) [#/Vol] 346 10*3/uL 150-450 [facility] Serum or plasma calcium jasmin urement (mass/volume)Ordered By: Edouard Grayson on 02-07-2023 Calcium [Mass/Vol] 9.1 mg/dL 8.5-10.1 [facility] Serum or plasma creatinine m easurement (mass/volume)Ordered By: Edouard Grayson on 02-07-2023 Creatinine [Mass/Vol] 0.91 mg/dL 0.55-1.02 [facility] Comment on above: The validity of the calculated GFR & GFRAA in patients over 70 years has not been determined. Clinical correlation is essential. Serum or plasma urea nitroge n measurement (mass/volume)Ordered By: Edouard Grayson on 02-07-2023 Urea nitrogen [Mass/Vol] 19 mg/dL 7-18 [facility] Serum or plasma uric acid me asurement (mass/volume)Ordered By: Edouard Grayson on 02-07-2023 Urate [Mass/Vol] 5.4 mg/dL 2.6-6.0 [facility] Comment on above: The drugs N-Acetylcy steine and Metamizole may falsely depress this assay. Thin prep Papanicolaou smear with manual screeningOrdered By: Edouard Grayson on 02-07-2023 Thin prep Papanicolaou smear with manual screening 4 5-15 [facility] Basophil percentageOrdered B y: Edouard Grayson on 02-02-2023 WBC (Bld) [#/Vol] 7.8 10*3/uL 4.4-11.0 [facility] Blood erythrocytes count (nu mber/volume)Ordered By: Edouard Grayson on 02-02-2023 RBC (Bld) [#/Vol] 3.96 10*6/uL 4.2-5.4 [facility] Blood hemoglobin measurement (mass/volume)Ordered By: Edouard Grayson on 02-02-2023 Hemoglobin (Bld) [Mass/Vol] 10.3 g/dL 12.0-15.0 [facility] Blood manual differential co mment interpretation (narrative result)Ordered By: Edouard Grayson on 02-02-2023 Manual differential comment Zackary (Bld) [Interp] See comment [facility] Comment on above: ANISOCYTOSIS 1+ Blood platelet mean volumeOr dered By: Edouard Grayson on 02-02-2023 Platelet mean volume (Bld) [Entitic vol] 10.1 fL 6.2-12.0 [facility] Determination of erythrocyte mean corpuscular volume (MCV)Ordered By: Edouard Grayson on 02-02-2023 MCV (RBC) [Entitic vol] 84.6 fL 81-99 [facility] Hematocrit Auto (Bld) [Volum e fraction]Ordered By: Edouard Grayson on 02-02-2023 Hematocrit (Bld) [Volume fraction] 33.5 % 37-47 [facility] Laboratory - Hematology and Cell countsOrdered By: Edouard Grayson on 02-02-2023 Erythrocyte distribution width (RBC) [Entitic vol] 64.2 fL 35.1-43.9 [facility] Erythrocyte distribution width (RBC) [Ratio] 21.0 % 11.6-14.6 [facility] MCH (RBC) [Entitic mass] 26.0 pg 27.0-32.0 [facility] MCHC Auto (RBC) [Mass/Vol]Or dered By: Edouard Grayson on 02-02-2023 MCHC (RBC) [Mass/Vol] 30.7 g/dL 32-36 [facility] Platelets bldOrdered By: Earl Grayson on 02-02-2023 Platelets (Bld) [#/Vol] 343 10*3/uL 150-450 [facility] Basophil percentageOrdered B y: Edouard Grayson on 01-19-2023 WBC (Bld) [#/Vol] 6.4 10*3/uL 4.4-11.0 [facility] Blood erythrocytes count (nu mber/volume)Ordered By: Edouard Grayson on 01-19-2023 RBC (Bld) [#/Vol] 4.45 10*6/uL 4.2-5.4 [facility] Blood hemoglobin measurement (mass/volume)Ordered By: Edouard Grayson on 01-19-2023 Hemoglobin (Bld) [Mass/Vol] 11.7 g/dL 12.0-15.0 [facility] Blood platelet mean volumeOr dered By: Edouard Grayson on 01-19-2023 Platelet mean volume (Bld) [Entitic vol] 10.1 fL 6.2-12.0 [facility] Determination of erythrocyte mean corpuscular volume (MCV)Ordered By: Edouard Grayson on 01-19-2023 MCV (RBC) [Entitic vol] 84.0 fL 81-99 [facility] Hematocrit Auto (Bld) [Volum e fraction]Ordered By: Edouard Grayson on 01-19-2023 Hematocrit (Bld) [Volume fraction] 37.4 % 37-47 [facility] Laboratory - Hematology and Cell countsOrdered By: Edouard Grayson on 01-19-2023 Erythrocyte distribution width (RBC) [Entitic vol] 61.0 fL 35.1-43.9 [facility] Erythrocyte distribution width (RBC) [Ratio] 19.9 % 11.6-14.6 [facility] MCH (RBC) [Entitic mass] 26.3 pg 27.0-32.0 [facility] MCHC Auto (RBC) [Mass/Vol]Or dered By: Edouard Grayson on 01-19-2023 MCHC (RBC) [Mass/Vol] 31.3 g/dL 32-36 [facility] Platelets bldOrdered By: Earl Grayson on 01-19-2023 Platelets (Bld) [#/Vol] 287 10*3/uL 150-450 [facility] Absolute lymphocyte countOrd ered By: Edouard Grayson on 01-08-2023 Lymphocytes Auto (Unsp spec) [#/Vol] 2.86 10*3/uL 0.83-4.51 [facility] Basophil percentageOrdered B y: Edouard Grayson on 01-08-2023 Amylase [Catalytic activity/Vol] 34 U/L 25-115 [facility] Basophils/100 WBC (Bld) 0.6 % 0-1 [facility] Bilirubin [Mass/Vol] 0.60 mg/dL 0.20-1.00 [facility] Comment on above: For patients on eltr ombopag therapy, use of Dimension Ennice TBIL is not recommended. Chloride [Moles/Vol] 109 mmol/L 98-107 [facility] Eosinophils/100 WBC (Bld) 3.3 % 0-5 [facility] Glucose [Mass/Vol] 99 mg/dL 74-106 [facility] Neutrophils (Bld) [#/Vol] 5.2 10*3/uL 2.0-7.7 [facility] Neutrophils/100 WBC (Bld) 55.7 % 47-70 [facility] Potassium [Moles/Vol] 3.6 mmol/L 3.5-5.1 [facility] Protein [Mass/Vol] 7.4 g/dL 6.4-8.2 [facility] Sodium [Moles/Vol] 141 mmol/L 136-145 [facility] WBC (Bld) [#/Vol] 9.3 10*3/uL 4.4-11.0 [facility] Blood erythrocytes count (nu mber/volume)Ordered By: Edouard Grayson on 01-08-2023 RBC (Bld) [#/Vol] 4.29 10*6/uL 4.2-5.4 [facility] Blood hemoglobin measurement (mass/volume)Ordered By: Edouard Grayson on 01-08-2023 Hemoglobin (Bld) [Mass/Vol] 10.9 g/dL 12.0-15.0 [facility] Blood lymphocytes/100 leukoc ytesOrdered By: Edouard Grayson on 01-08-2023 Lymphocytes/100 WBC (Bld) 30.7 % 19-41 [facility] Blood monocytes/100 leukocyt esOrdered By: Edouard Grayson on 01-08-2023 Monocytes/100 WBC (Bld) 9.3 % 0-10 [facility] Blood platelet mean volumeOr dered By: Edouard Grayson on 01-08-2023 Platelet mean volume (Bld) [Entitic vol] 9.7 fL 6.2-12.0 [facility] Determination of erythrocyte mean corpuscular volume (MCV)Ordered By: Edouard Grayson on 01-08-2023 MCV (RBC) [Entitic vol] 83.4 fL 81-99 [facility] Hematocrit Auto (Bld) [Volum e fraction]Ordered By: Edouard Grayson on 01-08-2023 Hematocrit (Bld) [Volume fraction] 35.8 % 37-47 [facility] Laboratory - Chemistry and C hemistry - challengeOrdered By: Edouard Grayson on 01-08-2023 ALP [Catalytic activity/Vol] 88 U/L 45-117 [facility] ALT [Catalytic activity/Vol] 18 U/L 13-56 [facility] CO2 [Moles/Vol] 27.0 mmol/L 21.0-32.0 [facility] Globulin (S) [Mass/Vol] 4.3 g/dL 2.2-4.2 [facility] Urea nitrogen/Creatinine [Mass ratio] 20.0 mg/mg 10-20 [facility] Laboratory - Hematology and Cell countsOrdered By: Edouard Grayson on 01-08-2023 Erythrocyte distribution width (RBC) [Entitic vol] 56.0 fL 35.1-43.9 [facility] Erythrocyte distribution width (RBC) [Ratio] 18.5 % 11.6-14.6 [facility] Immature granulocytes/100 WBC (Bld) 0.400 % 0.0-0.9 [facility] Comment on above: IG% - Immature Granu locytes (promyelocytes, myelocytes and metamyelocytes) > 1% indicates that a LEFT SHIFT is Present. MCH (RBC) [Entitic mass] 25.4 pg 27.0-32.0 [facility] Nucleated RBC/100 WBC (Bld) [Ratio] 0 % 0-5 [facility] MCHC Auto (RBC) [Mass/Vol]Or dered By: Edouard Grayson on 01-08-2023 MCHC (RBC) [Mass/Vol] 30.4 g/dL 32-36 [facility] No Panel InformationOrdered By: Edouard Grayson on 01-08-2023 Estimated GFR (MDRD) Amer 78 mL/min >60 [facility] Comment on above: GFR Calc Estimated GFR (MDRD) Non-Af Amer 64 mL/min >60 [facility] Comment on above: Non- GFR Calc Platelets bldOrdered By: Earl Grayson on 01-08-2023 Platelets (Bld) [#/Vol] 388 10*3/uL 150-450 [facility] Serum or plasma albumin jasmin urement (mass/volume)Ordered By: Edouard Grayson on 01-08-2023 Albumin [Mass/Vol] 3.1 g/dL 3.2-5.0 [facility] Serum or plasma albumin/glob ulin mass ratioOrdered By: Edouard Grayson on 01-08-2023 Albumin/Globulin [Mass ratio] 0.7 {ratio} 0.9-2.4 [facility] Serum or plasma calcium jasmin urement (mass/volume)Ordered By: Edouard Grayson on 01-08-2023 Calcium [Mass/Vol] 9.1 mg/dL 8.5-10.1 [facility] Serum or plasma creatinine m easurement (mass/volume)Ordered By: Edouard Grayson on 01-08-2023 Creatinine [Mass/Vol] 0.90 mg/dL 0.55-1.02 [facility] Comment on above: The validity of the calculated GFR & GFRAA in patients over 70 years has not been determined. Clinical correlation is essential. Serum or plasma urea nitroge n measurement (mass/volume)Ordered By: Edouard Grayson on 01-08-2023 Urea nitrogen [Mass/Vol] 18 mg/dL 7-18 [facility] Thin prep Papanicolaou smear with manual screeningOrdered By: Edouard Grayson on 01-08-2023 Thin prep Papanicolaou smear with manual screening 12 U/L 15-37 [facility] Thin prep Papanicolaou smear with manual screening 5 5-15 [facility] Absolute lymphocyte countOrd ered By: Edouard Grayson on 01-05-2023 Lymphocytes Auto (Unsp spec) [#/Vol] 2.09 10*3/uL 0.83-4.51 [facility] Basophil percentageOrdered B y: Edouard Grayson on 01-05-2023 Basophils/100 WBC (Bld) 0.6 % 0-1 [facility] Chloride [Moles/Vol] 113 mmol/L 98-107 [facility] Eosinophils/100 WBC (Bld) 4.2 % 0-5 [facility] Glucose [Mass/Vol] 98 mg/dL 74-106 [facility] Neutrophils (Bld) [#/Vol] 5.6 10*3/uL 2.0-7.7 [facility] Neutrophils/100 WBC (Bld) 62.2 % 47-70 [facility] Potassium [Moles/Vol] 3.2 mmol/L 3.5-5.1 [facility] Sodium [Moles/Vol] 143 mmol/L 136-145 [facility] WBC (Bld) [#/Vol] 9.0 10*3/uL 4.4-11.0 [facility] Blood erythrocytes count (nu mber/volume)Ordered By: Edouard Grayson on 01-05-2023 RBC (Bld) [#/Vol] 3.86 10*6/uL 4.2-5.4 [facility] Blood hemoglobin measurement (mass/volume)Ordered By: Edouard Grayson on 01-05-2023 Hemoglobin (Bld) [Mass/Vol] 10.0 g/dL 12.0-15.0 [facility] Blood lymphocytes/100 leukoc ytesOrdered By: Edouard Grayson on 01-05-2023 Lymphocytes/100 WBC (Bld) 23.4 % 19-41 [facility] Blood monocytes/100 leukocyt esOrdered By: Edouard Grayson on 01-05-2023 Monocytes/100 WBC (Bld) 9.3 % 0-10 [facility] Blood platelet mean volumeOr dered By: Edouard Grayson on 01-05-2023 Platelet mean volume (Bld) [Entitic vol] 10.1 fL 6.2-12.0 [facility] Determination of erythrocyte mean corpuscular volume (MCV)Ordered By: Edouard Grayson on 01-05-2023 MCV (RBC) [Entitic vol] 85.5 fL 81-99 [facility] Comment on above: Delta: 81.2 on 01/01-0540 Hematocrit Auto (Bld) [Volum e fraction]Ordered By: Edouard Grayson on 01-05-2023 Hematocrit (Bld) [Volume fraction] 33.0 % 37-47 [facility] Laboratory - Chemistry and C hemistry - challengeOrdered By: Edouard Grayson on 01-05-2023 CO2 [Moles/Vol] 23.0 mmol/L 21.0-32.0 [facility] Urea nitrogen/Creatinine [Mass ratio] 22.5 mg/mg 10-20 [facility] - Hematology and Cell countsOrdered By: Edouard Grayson on 01-05-2023 Erythrocyte distribution width (RBC) [Entitic vol] 57.1 fL 35.1-43.9 [facility] Erythrocyte distribution width (RBC) [Ratio] 18.6 % 11.6-14.6 [facility] Immature granulocytes/100 WBC (Bld) 0.300 % 0.0-0.9 [facility] Comment on above: IG% - Immature Granu locytes (promyelocytes, myelocytes and metamyelocytes) > 1% indicates that a LEFT SHIFT is Present. MCH (RBC) [Entitic mass] 25.9 pg 27.0-32.0 [facility] Nucleated RBC/100 WBC (Bld) [Ratio] 0 % 0-5 [facility] MCHC Auto (RBC) [Mass/Vol]Or dered By: Edouard Grayson on 01-05-2023 MCHC (RBC) [Mass/Vol] 30.3 g/dL 32-36 [facility] Comment on above: Delta: 32.1 on 01/01 No Panel InformationOrdered By: Edouard Grayson on 01-05-2023 Estimated GFR (MDRD) Amer 79 mL/min >60 [facility] Comment on above: GFR Calc Estimated GFR (MDRD) Non-Af Amer 65 mL/min >60 [facility] Comment on above: Non- GFR Calc Platelets bldOrdered By: Earl Grayson on 01-05-2023 Platelets (Bld) [#/Vol] 300 10*3/uL 150-450 [facility] Serum or plasma calcium jasmin urement (mass/volume)Ordered By: Edouard Grayson on 01-05-2023 Calcium [Mass/Vol] 8.7 mg/dL 8.5-10.1 [facility] Serum or plasma creatinine m easurement (mass/volume)Ordered By: Edouard Grayson on 01-05-2023 Creatinine [Mass/Vol] 0.89 mg/dL 0.55-1.02 [facility] Comment on above: The validity of the calculated GFR & GFRAA in patients over 70 years has not been determined. Clinical correlation is essential. Serum or plasma urea nitroge n measurement (mass/volume)Ordered By: Edouard Grayson on 01-05-2023 Urea nitrogen [Mass/Vol] 20 mg/dL 7-18 [facility] Thin prep Papanicolaou smear with manual screeningOrdered By: Edouard Grayson on 01-05-2023 Thin prep Papanicolaou smear with manual screening 7 5-15 [facility] Basophil percentageOrdered B y: Stefano Palmer on 01-02-2023 Chloride [Moles/Vol] 118 mmol/L 98-107 [facility] Glucose [Mass/Vol] 108 mg/dL 74-106 [facility] Comment on above: Fasting Glucose resu lt from 100 to 125 mg/dL suggests IMPAIRED HOMEOSTASIS per A.D.A. criteria. Potassium [Moles/Vol] 3.7 mmol/L 3.5-5.1 [facility] Sodium [Moles/Vol] 143 mmol/L 136-145 [facility] Laboratory - Chemistry and C hemistry - challengeOrdered By: Stefano Palmer on 01-02-2023 CO2 [Moles/Vol] 21.0 mmol/L 21.0-32.0 [facility] Urea nitrogen/Creatinine [Mass ratio] 18.0 mg/mg 10- [facility] No Panel InformationOrdered By: Stefano Palmer on 01-02-2023 Estimated Creatinine Clearance Calc 29.04 ml/min [facility] Estimated GFR (MDRD) Amer 61 mL/min >60 [facility] Comment on above: GFR Calc Estimated GFR (MDRD) Non-Af Amer 50 mL/min >60 [facility] Comment on above: Non- GFR Calc Serum or plasma calcium jasmin urement (mass/volume)Ordered By: Stefano Palmer on 01-02-2023 Calcium [Mass/Vol] 8.8 mg/dL 8.5-10.1 [facility] Serum or plasma creatinine m easurement (mass/volume)Ordered By: Stefano Palmer on 01-02-2023 Creatinine [Mass/Vol] 1.11 mg/dL 0.55-1.02 [facility] Comment on above: The validity of the calculated GFR & GFRAA in patients over 70 years has not been determined. Clinical correlation is essential. Serum or plasma urea nitroge n measurement (mass/volume)Ordered By: Stefano Palmer on 01-02-2023 Urea nitrogen [Mass/Vol] 20 mg/dL 7-18 [facility] Thin prep Papanicolaou smear with manual screeningOrdered By: Stefano Palmer on 01-02-2023 Thin prep Papanicolaou smear with manual screening 4 5-15 [facility] Absolute lymphocyte countOrd ered By: Helene Khan on 01-01-2023 Lymphocytes Auto (Unsp spec) [#/Vol] 2.98 10*3/uL 0.83-4.51 [facility] Basophil percentageOrdered B y: Helene Khan on 01-01-2023 Basophils/100 WBC (Bld) 0.5 % 0-1 [facility] Eosinophils/100 WBC (Bld) 2.5 % 0-5 [facility] Neutrophils (Bld) [#/Vol] 7.0 10*3/uL 2.0-7.7 [facility] Neutrophils/100 WBC (Bld) 60.3 % 47-70 [facility] WBC (Bld) [#/Vol] 11.6 10*3/uL 4.4-11.0 [facility] Blood erythrocytes count (nu mber/volume)Ordered By: Helene Khan on 01-01-2023 RBC (Bld) [#/Vol] 4.10 10*6/uL 4.2-5.4 [facility] Blood hemoglobin measurement (mass/volume)Ordered By: Helene Khan on 01-01-2023 Hemoglobin (Bld) [Mass/Vol] 10.7 g/dL 12.0-15.0 [facility] Blood lymphocytes/100 leukoc ytesOrdered By: Helene Khan on 01-01-2023 Lymphocytes/100 WBC (Bld) 25.8 % 19-41 [facility] Blood monocytes/100 leukocyt esOrdered By: Helene Khan on 01-01-2023 Monocytes/100 WBC (Bld) 10.6 % 0-10 [facility] Blood platelet mean volumeOr dered By: Helene Khan on 01-01-2023 Platelet mean volume (Bld) [Entitic vol] 9.6 fL 6.2-12.0 [facility] Determination of erythrocyte mean corpuscular volume (MCV)Ordered By: Helene Khan on 01-01-2023 MCV (RBC) [Entitic vol] 81.2 fL 81-99 [facility] Hematocrit Auto (Bld) [Volum e fraction]Ordered By: Helene Khan on 01-01-2023 Hematocrit (Bld) [Volume fraction] 33.3 % 37-47 [facility] Laboratory - Hematology and Cell countsOrdered By: Helene Khan on 01-01-2023 Erythrocyte distribution width (RBC) [Entitic vol] 48.6 fL 35.1-43.9 [facility] Erythrocyte distribution width (RBC) [Ratio] 16.9 % 11.6-14.6 [facility] Immature granulocytes/100 WBC (Bld) 0.300 % 0.0-0.9 [facility] Comment on above: IG% - Immature Granu locytes (promyelocytes, myelocytes and metamyelocytes) > 1% indicates that a LEFT SHIFT is Present. MCH (RBC) [Entitic mass] 26.1 pg 27.0-32.0 [facility] Nucleated RBC/100 WBC (Bld) [Ratio] 0 % 0-5 [facility] MCHC Auto (RBC) [Mass/Vol]Or dered By: Helene Khan on 01-01-2023 MCHC (RBC) [Mass/Vol] 32.1 g/dL 32-36 [facility] Comment on above: Delta: 30.5 on 12/31-0550 Platelets bldOrdered By: Caitie Khan on 01-01-2023 Platelets (Bld) [#/Vol] 363 10*3/uL 150-450 [facility] Basophil percentageOrdered B y: Chasity Huffman on 12-31-2022 Bilirubin [Mass/Vol] 1.10 mg/dL 0.20-1.00 [facility] Comment on above: For patients on eltr ombopag therapy, use of Dimension Ennice TBIL is not recommended. Protein [Mass/Vol] 6.9 g/dL 6.4-8.2 [facility] Laboratory - Chemistry and C hemistry - challengeOrdered By: Chasity Huffman on 12-31-2022 ALP [Catalytic activity/Vol] 93 U/L 45-117 [facility] ALT [Catalytic activity/Vol] 22 U/L 13-56 [facility] Globulin (S) [Mass/Vol] 3.8 g/dL 2.2-4.2 [facility] Serum or plasma albumin jasmin urement (mass/volume)Ordered By: Chasity Armida on 12-31-2022 Albumin [Mass/Vol] 3.1 g/dL 3.2-5.0 [facility] Serum or plasma albumin/glob ulin mass ratioOrdered By: [facility] Armida on 12-31-2022 Albumin/Globulin [Mass ratio] 0.8 {ratio} 0.9-2.4 [facility] Thin prep Papanicolaou smear with manual screeningOrdered By: [facility] Amrida on 12-31-2022 Thin prep Papanicolaou smear with manual screening 16 U/L 15-37 [facility] Basophil percentageOrdered B y: Edouard Grayson on 12-30-2022 WBC (Bld) [#/Vol] 10.2 10*3/uL 4.4-11.0 [facility] Blood erythrocytes count (nu mber/volume)Ordered By: Edouard Grayson on 12-30-2022 RBC (Bld) [#/Vol] 2.67 10*6/uL 4.2-5.4 [facility] Blood hemoglobin measurement (mass/volume)Ordered By: Edouard Grayson on 12-30-2022 Hemoglobin (Bld) [Mass/Vol] 6.1 g/dL 12.0-15.0 [facility] Blood platelet mean volumeOr dered By: Edouard Grayson on 12-30-2022 Platelet mean volume (Bld) [Entitic vol] 10.3 fL 6.2-12.0 [facility] Determination of erythrocyte mean corpuscular volume (MCV)Ordered By: Edouard Grayson on 12-30-2022 MCV (RBC) [Entitic vol] 82.4 fL 81-99 [facility] Hematocrit Auto (Bld) [Volum e fraction]Ordered By: Edouard Grayson on 12-30-2022 Hematocrit (Bld) [Volume fraction] 22.0 % 37-47 [facility] Laboratory - Hematology and Cell countsOrdered By: Edouard Grayson on 12-30-2022 Erythrocyte distribution width (RBC) [Entitic vol] 48.0 fL 35.1-43.9 [facility] Erythrocyte distribution width (RBC) [Ratio] 15.9 % 11.6-14.6 [facility] MCH (RBC) [Entitic mass] 22.8 pg 27.0-32.0 [facility] MCHC Auto (RBC) [Mass/Vol]Or dered By: Edouard Grayson on 12-30-2022 MCHC (RBC) [Mass/Vol] 27.7 g/dL 32-36 [facility] Platelets bldOrdered By: Earl Grayson on 12-30-2022 Platelets (Bld) [#/Vol] 427 10*3/uL 150-450 [facility] Stool gastrointestinal hemog lobin detection by immunologic methodOrdered By: Danyel Viveros on 12-30-2022 Lower GI hemoglobin IA Ql (Stl) [facility] Lower GI hemoglobin IA Ql (Stl) [facility] Basophil percentageOrdered B y: Edouard Grayson on 12-28-2022 Chloride [Moles/Vol] 111 mmol/L 98-107 [facility] Glucose [Mass/Vol] 133 mg/dL 74-106 [facility] Comment on above: Fasting Glucose resu lt greater than or equal to 126 mg/dL suggests DIABETES MELLITUS per A.D.A. criteria. Potassium [Moles/Vol] 3.8 mmol/L 3.5-5.1 [facility] Sodium [Moles/Vol] 141 mmol/L 136-145 [facility] WBC (Bld) [#/Vol] 10.1 10*3/uL 4.4-11.0 [facility] Blood erythrocytes count (nu mber/volume)Ordered By: Edouard Grayson on 12-28-2022 RBC (Bld) [#/Vol] 2.92 10*6/uL 4.2-5.4 [facility] Blood hemoglobin measurement (mass/volume)Ordered By: Edouard Grayson on 12-28-2022 Hemoglobin (Bld) [Mass/Vol] 6.7 g/dL 12.0-15.0 [facility] Blood platelet mean volumeOr dered By: Edouard Grayson on 12-28-2022 Platelet mean volume (Bld) [Entitic vol] 10.3 fL 6.2-12.0 [facility] Determination of erythrocyte mean corpuscular volume (MCV)Ordered By: Edouard Grayson on 12-28-2022 MCV (RBC) [Entitic vol] 82.9 fL 81-99 [facility] Hematocrit Auto (Bld) [Volum e fraction]Ordered By: Edouard Grayson on 12-28-2022 Hematocrit (Bld) [Volume fraction] 24.2 % 37-47 [facility] Laboratory - Chemistry and C hemistry - challengeOrdered By: Edouard Grayson on 12-28-2022 CO2 [Moles/Vol] 22.0 mmol/L 21.0-32.0 [facility] Urea nitrogen/Creatinine [Mass ratio] 20.9 mg/mg 10-20 [facility] Laboratory - Hematology and Cell countsOrdered By: Edouard Grayson on 12-28-2022 Erythrocyte distribution width (RBC) [Entitic vol] 47.9 fL 35.1-43.9 [facility] Erythrocyte distribution width (RBC) [Ratio] 15.7 % 11.6-14.6 [facility] MCH (RBC) [Entitic mass] 22.9 pg 27.0-32.0 [facility] MCHC Auto (RBC) [Mass/Vol]Or dered By: Edouard Grayson on 12-28-2022 MCHC (RBC) [Mass/Vol] 27.7 g/dL 32-36 [facility] No Panel InformationOrdered By: Edouard Grayson on 12-28-2022 Estimated GFR (MDRD) Amer 72 mL/min >60 [facility] Comment on above: GFR Calc Estimated GFR (MDRD) Non-Af Amer 60 mL/min >60 [facility] Comment on above: Non- GFR Calc Platelets bldOrdered By: Earl Grayson on 12-28-2022 Platelets (Bld) [#/Vol] 449 10*3/uL 150-450 [facility] Serum or plasma calcium jasmin urement (mass/volume)Ordered By: Edouard Grayson on 12-28-2022 Calcium [Mass/Vol] 9.1 mg/dL 8.5-10.1 [facility] Serum or plasma creatinine m easurement (mass/volume)Ordered By: Edouard Grayson on 12-28-2022 Creatinine [Mass/Vol] 0.96 mg/dL 0.55-1.02 [facility] Comment on above: The validity of the calculated GFR & GFRAA in patients over 70 years has not been determined. Clinical correlation is essential. Serum or plasma urea nitroge n measurement (mass/volume)Ordered By: Edoaurd Grayson on 12-28-2022 Urea nitrogen [Mass/Vol] 20 mg/dL 7-18 [facility] Thin prep Papanicolaou smear with manual screeningOrdered By: Edouard Grayson on 12-28-2022 Thin prep Papanicolaou smear with manual screening 8 5-15 [facility] Basophil percentageOrdered B y: Edouard Grayson on 09-28-2022 Chloride [Moles/Vol] 109 mmol/L 98-107 [facility] Cholesterol [Mass/Vol] 159 mg/dL <200 [facility] Comment on above: <200 mg/dL Desirable 200-240 mg/dL Borderline >240 mg/dL High Risk Glucose [Mass/Vol] 98 mg/dL 74-106 [facility] Potassium [Moles/Vol] 3.6 mmol/L 3.5-5.1 [facility] Sodium [Moles/Vol] 142 mmol/L 136-145 [facility] Triglyceride [Mass/Vol] 195 mg/dL <199 [facility] Comment on above: The drugs N-Acetylcy steine and Metamizole may falsely depress this assay.Serum Triglycerides Reference Interval Normal <150 mg/dL Borderline high 150 - 199 mg/dL High 200 - 499 mg/dL Very High > or = 500 mg/dL WBC (Bld) [#/Vol] 7.4 10*3/uL 4.4-11.0 [facility] Blood erythrocytes count (nu mber/volume)Ordered By: Edouard Grayson on 09-28-2022 RBC (Bld) [#/Vol] 4.15 10*6/uL 4.2-5.4 [facility] Blood hemoglobin measurement (mass/volume)Ordered By: Edouard Grayson on 09-28-2022 Hemoglobin (Bld) [Mass/Vol] 11.8 g/dL 12.0-15.0 [facility] Blood platelet mean volumeOr dered By: Edouard Grayson on 09-28-2022 Platelet mean volume (Bld) [Entitic vol] 10.1 fL 6.2-12.0 [facility] Determination of erythrocyte mean corpuscular volume (MCV)Ordered By: Edouard Grayson on 09-28-2022 MCV (RBC) [Entitic vol] 93.3 fL 81-99 [facility] Hematocrit Auto (Bld) [Volum e fraction]Ordered By: Edouard Grayson on 09-28-2022 Hematocrit (Bld) [Volume fraction] 38.7 % 37-47 [facility] Laboratory - Chemistry and C hemistry - challengeOrdered By: Edouard Garyson on 09-28-2022 CO2 [Moles/Vol] 26.0 mmol/L 21.0-32.0 [facility] Urea nitrogen/Creatinine [Mass ratio] 22.5 mg/mg 10-20 [facility] - Hematology and Cell countsOrdered By: Edouard Grayson on 09-28-2022 Erythrocyte distribution width (RBC) [Entitic vol] 47.7 fL 35.1-43.9 [facility] Erythrocyte distribution width (RBC) [Ratio] 14.1 % 11.6-14.6 [facility] MCH (RBC) [Entitic mass] 28.4 pg 27.0-32.0 [facility] MCHC Auto (RBC) [Mass/Vol]Or dered By: Edouard Grayson on 09-28-2022 MCHC (RBC) [Mass/Vol] 30.5 g/dL 32-36 [facility] No Panel InformationOrdered By: Edouard Grayson on 09-28-2022 Estimated GFR (MDRD) Amer 79 mL/min >60 [facility] Comment on above: GFR Calc Estimated GFR (MDRD) Non-Af Amer 65 mL/min >60 [facility] Comment on above: Non- GFR Calc Platelets bldOrdered By: Earl Grayson on 09-28-2022 Platelets (Bld) [#/Vol] 394 10*3/uL 150-450 [facility] Serum or plasma calcium jasmin urement (mass/volume)Ordered By: Edouard Grayson on 09-28-2022 Calcium [Mass/Vol] 9.6 mg/dL 8.5-10.1 [facility] Serum or plasma cholesterol in HDL measurement (mass/volume)Ordered By: Edouard Grayson on 09-28-2022 Cholesterol in HDL [Mass/Vol] 49 mg/dL >40 [facility] Comment on above: The drugs N-Acetylcy steine and Metamizole may falsely depress this assay. Reference Range HDL <40 mg/dL Low HDL Cholesterol HDL >or= 60 mg/dL High HDL Cholesterol Serum or plasma cholesterol in VLDL measurement (mass/volume)Ordered By: Edouard Grayson on 09-28-2022 Cholesterol in VLDL [Mass/Vol] 39 mg/dL 5-40 [facility] Serum or plasma creatinine m easurement (mass/volume)Ordered By: Edouard Grayson on 09-28-2022 Creatinine [Mass/Vol] 0.89 mg/dL 0.55-1.02 [facility] Comment on above: The validity of the calculated GFR & GFRAA in patients over 70 years has not been determined. Clinical correlation is essential. Serum or plasma low density lipoprotein (LDL) cholesterol measurement (mass/volume)Ordered By: Edouard Grayson on 09-28-2022 Cholesterol in LDL [Mass/Vol] 71 mg/dL 0-130 [facility] Serum or plasma urea nitroge n measurement (mass/volume)Ordered By: Edouard Grayson on 09-28-2022 Urea nitrogen [Mass/Vol] 20 mg/dL 7-18 [facility] Thin prep Papanicolaou smear with manual screeningOrdered By: Edouard Grayson on 09-28-2022 Thin prep Papanicolaou smear with manual screening 7 5-15 [facility] Basophil percentageOrdered B y: Edouard Grayson on 06-29-2022 Chloride [Moles/Vol] 111 mmol/L 98-107 [facility] Glucose [Mass/Vol] 93 mg/dL 74-106 [facility] Potassium [Moles/Vol] 3.5 mmol/L 3.5-5.1 [facility] Sodium [Moles/Vol] 139 mmol/L 136-145 [facility] WBC (Bld) [#/Vol] 7.2 10*3/uL 4.4-11.0 [facility] Blood erythrocytes count (nu mber/volume)Ordered By: Edouard Grayson on 06-29-2022 RBC (Bld) [#/Vol] 3.60 10*6/uL 4.2-5.4 [facility] Blood hemoglobin measurement (mass/volume)Ordered By: Edouard Grayson on 06-29-2022 Hemoglobin (Bld) [Mass/Vol] 10.7 g/dL 12.0-15.0 [facility] Blood platelet mean volumeOr dered By: Edouard Grayson on 06-29-2022 Platelet mean volume (Bld) [Entitic vol] 9.6 fL 6.2-12.0 [facility] Determination of erythrocyte mean corpuscular volume (MCV)Ordered By: Edouard Grayson on 06-29-2022 MCV (RBC) [Entitic vol] 91.4 fL 81-99 [facility] Hematocrit Auto (Bld) [Volum e fraction]Ordered By: Edouard Grayson on 06-29-2022 Hematocrit (Bld) [Volume fraction] 32.9 % 37-47 [facility] Laboratory - Chemistry and C hemistry - challengeOrdered By: Edouard Grayson on 06-29-2022 CO2 [Moles/Vol] 26.0 mmol/L 21.0-32.0 [facility] Urea nitrogen/Creatinine [Mass ratio] 25.1 mg/mg 10 [facility] Laboratory - Hematology and Cell countsOrdered By: Edouard Grayson on 06-29-2022 Erythrocyte distribution width (RBC) [Entitic vol] 46.0 fL 35.1-43.9 [facility] Erythrocyte distribution width (RBC) [Ratio] 13.7 % 11.6-14.6 [facility] MCH (RBC) [Entitic mass] 29.7 pg 27.0-32.0 [facility] MCHC Auto (RBC) [Mass/Vol]Or dered By: Edouard Grayson on 06-29-2022 MCHC (RBC) [Mass/Vol] 32.5 g/dL 32-36 [facility] No Panel InformationOrdered By: Edouard Grayson on 06-29-2022 Estimated GFR (MDRD) Amer 84 mL/min >60 [facility] Comment on above: GFR Calc Estimated GFR (MDRD) Non-Af Amer 70 mL/min >60 [facility] Comment on above: Non- GFR Calc Platelets bldOrdered By: Earl Grayson on 06-29-2022 Platelets (Bld) [#/Vol] 353 10*3/uL 150-450 [facility] Serum or plasma calcium jasmin urement (mass/volume)Ordered By: Edouard Grayson on 06-29-2022 Calcium [Mass/Vol] 9.2 mg/dL 8.5-10.1 [facility] Serum or plasma creatinine m easurement (mass/volume)Ordered By: Edouard Grayson on 06-29-2022 Creatinine [Mass/Vol] 0.84 mg/dL 0.55-1.02 [facility] Comment on above: The validity of the calculated GFR & GFRAA in patients over 70 years has not been determined. Clinical correlation is essential. Serum or plasma urea nitroge n measurement (mass/volume)Ordered By: Edouard Grayson on 06-29-2022 Urea nitrogen [Mass/Vol] 21 mg/dL 7-18 [facility] Thin prep Papanicolaou smear with manual screeningOrdered By: Edouard Grayson on 06-29-2022 Thin prep Papanicolaou smear with manual screening 2 5-15 [facility] Culture, urineOrdered By: Dr Kory Grayson on 06-18-2022 Bacteria identified Cx Nom (U) Escherichia coli [facility] Bilirubin Test strip Ql (U)O rdered By: Dr. Grayson on 06-16-2022 Bilirubin Ql (U) Negative Negative [facility] Ketones Test strip Ql (U)Ord ered By: Dr. Grayson on 06-16-2022 Ketones Ql (U) Negative Negative [facility] Nitrite Test strip Ql (U)Ord ered By: Dr. Grayson on 06-16-2022 Nitrite Ql (U) Positive Negative [facility] Protein Test strip Ql (U)Ord ered By: Dr. Grayson on 06-16-2022 Protein Ql (U) 15 mg/dl Negative [facility] Urine blood detectionOrdered By: Dr. Grayson on 06-16-2022 RBC Ql (U) 150 /ul Negative [facility] Urine clarityOrdered By: Dr. Grayosn on 06-16-2022 Clarity (U) Sl. Cloudy Clear [facility] Urine color determinationOrd ered By: Dr. Grayson on 06-16-2022 Color (U) Yellow Yellow [facility] Urine glucose detectionOrder ed By: Dr. Grayson on 06-16-2022 Glucose Ql (U) Normal mg/dl Normal [facility] Urine leukocyte esterase det ection by dipstickOrdered By: Dr. Grayson on 06-16-2022 Leukocyte esterase Test strip Ql (U) 500 /ul Negative [facility] Urine pHOrdered By: Dr. Jose Miguel de la garza on 06-16-2022 pH (U) 6.5 [pH] 5.0 - 8.0 [facility] Urine specific gravity measu rementOrdered By: Dr. Grayson on 06-16-2022 Specific gravity (U) [Rel density] 1.015 1.002-1.030 [facility] Urobilinogen Auto test strip Ql (U)Ordered By: Dr. Grayson on 06-16-2022 Urobilinogen Ql (U) Normal mg/dl Normal [facility] Basophil percentageOrdered B y: Edouard Grayson on 04-03-2022 Chloride [Moles/Vol] 109 mmol/L 98-107 [facility] Cholesterol [Mass/Vol] 171 mg/dL <200 [facility] Comment on above: <200 mg/dL Desirable 200-240 mg/dL Borderline >240 mg/dL High Risk Glucose [Mass/Vol] 104 mg/dL 74-106 [facility] Comment on above: Fasting Glucose resu lt from 100 to 125 mg/dL suggests IMPAIRED HOMEOSTASIS per A.D.A. criteria. Potassium [Moles/Vol] 3.8 mmol/L 3.5-5.1 [facility] Sodium [Moles/Vol] 142 mmol/L 136-145 [facility] Triglyceride [Mass/Vol] 115 mg/dL <199 [facility] Comment on above: The drugs N-Acetylcy steine and Metamizole may falsely depress this assay.Serum Triglycerides Reference Interval Normal <150 mg/dL Borderline high 150 - 199 mg/dL High 200 - 499 mg/dL Very High > or = 500 mg/dL WBC (Bld) [#/Vol] 12.0 10*3/uL 4.4-11.0 [facility] Blood erythrocytes count (nu mber/volume)Ordered By: Edouard Grayson on 04-03-2022 RBC (Bld) [#/Vol] 4.01 10*6/uL 4.2-5.4 [facility] Blood hemoglobin measurement (mass/volume)Ordered By: Edouard Grayson on 04-03-2022 Hemoglobin (Bld) [Mass/Vol] 12.2 g/dL 12.0-15.0 [facility] Blood platelet mean volumeOr dered By: Edouard Grayson on 04-03-2022 Platelet mean volume (Bld) [Entitic vol] 10.0 fL 6.2-12.0 [facility] Determination of erythrocyte mean corpuscular volume (MCV)Ordered By: Edouard Grayson on 04-03-2022 MCV (RBC) [Entitic vol] 95.8 fL 81-99 [facility] Hematocrit Auto (Bld) [Volum e fraction]Ordered By: Edouard Grayson on 04-03-2022 Hematocrit (Bld) [Volume fraction] 38.4 % 37-47 [facility] Laboratory - Chemistry and C hemistry - challengeOrdered By: Edouard Grayson on 04-03-2022 CO2 [Moles/Vol] 23.0 mmol/L 21.0-32.0 [facility] Urea nitrogen/Creatinine [Mass ratio] 31.8 mg/mg 10-20 [facility] Laboratory - Hematology and Cell countsOrdered By: Edouard Grayson on 04-03-2022 Erythrocyte distribution width (RBC) [Entitic vol] 46.3 fL 35.1-43.9 [facility] Erythrocyte distribution width (RBC) [Ratio] 13.1 % 11.6-14.6 [facility] MCH (RBC) [Entitic mass] 30.4 pg 27.0-32.0 [facility] MCHC Auto (RBC) [Mass/Vol]Or dered By: Edouard Grayson on 04-03-2022 MCHC (RBC) [Mass/Vol] 31.8 g/dL 32-36 [facility] No Panel InformationOrdered By: Edouard Grayson on 04-03-2022 Estimated GFR (MDRD) Amer 83 mL/min >60 [facility] Comment on above: GFR Calc Estimated GFR (MDRD) Non-Af Amer 69 mL/min >60 [facility] Comment on above: Non- GFR Calc Platelets bldOrdered By: Earl Grayson on 04-03-2022 Platelets (Bld) [#/Vol] 365 10*3/uL 150-450 [facility] Serum or plasma calcium jasmin urement (mass/volume)Ordered By: Edouard Grayson on 04-03-2022 Calcium [Mass/Vol] 9.4 mg/dL 8.5-10.1 [facility] Serum or plasma cholesterol in HDL measurement (mass/volume)Ordered By: Edouard Grayson on 04-03-2022 Cholesterol in HDL [Mass/Vol] 63 mg/dL >40 [facility] Comment on above: The drugs N-Acetylcy steine and Metamizole may falsely depress this assay. Reference Range HDL <40 mg/dL Low HDL Cholesterol HDL >or= 60 mg/dL High HDL Cholesterol Serum or plasma cholesterol in VLDL measurement (mass/volume)Ordered By: Edouard Grayson on 04-03-2022 Cholesterol in VLDL [Mass/Vol] 23 mg/dL 5-40 [facility] Serum or plasma creatinine m easurement (mass/volume)Ordered By: Edouard Grayson on 04-03-2022 Creatinine [Mass/Vol] 0.85 mg/dL 0.55-1.02 [facility] Comment on above: The validity of the calculated GFR & GFRAA in patients over 70 years has not been determined. Clinical correlation is essential. Serum or plasma low density lipoprotein (LDL) cholesterol measurement (mass/volume)Ordered By: Edouard Grayson on 04-03-2022 Cholesterol in LDL [Mass/Vol] 85 mg/dL 0-130 [facility] Serum or plasma urea nitroge n measurement (mass/volume)Ordered By: Edouard Grayson on 04-03-2022 Urea nitrogen [Mass/Vol] 27 mg/dL 7-18 [facility] Thin prep Papanicolaou smear with manual screeningOrdered By: Edouard Grayson on 04-03-2022 Thin prep Papanicolaou smear with manual screening 10 5-15 [facility] Absolute lymphocyte countOrd ered By: Dr. Cortes on 03-14-2022 Lymphocytes Auto (Unsp spec) [#/Vol] 2.91 10*3/uL 0.83-4.51 [facility] Basophil percentageOrdered B y: Dr. Cortes on 03-14-2022 Basophils/100 WBC (Bld) 0.6 % 0-1 [facility] Chloride [Moles/Vol] 110 mmol/L 98-107 [facility] Eosinophils/100 WBC (Bld) 5.0 % 0-5 [facility] Glucose [Mass/Vol] 110 mg/dL 74-106 [facility] Comment on above: Fasting Glucose resu lt from 100 to 125 mg/dL suggests IMPAIRED HOMEOSTASIS per A.D.A. criteria. Neutrophils (Bld) [#/Vol] 3.6 10*3/uL 2.0-7.7 [facility] Neutrophils/100 WBC (Bld) 46.0 % 47-70 [facility] Potassium [Moles/Vol] 3.8 mmol/L 3.5-5.1 [facility] Sodium [Moles/Vol] 141 mmol/L 136-145 [facility] WBC (Bld) [#/Vol] 7.8 10*3/uL 4.4-11.0 [facility] Blood erythrocytes count (nu mber/volume)Ordered By: Dr. Cortes on 03-14-2022 RBC (Bld) [#/Vol] 3.23 10*6/uL 4.2-5.4 [facility] Blood hemoglobin measurement (mass/volume)Ordered By: Dr. Cortes on 03-14-2022 Hemoglobin (Bld) [Mass/Vol] 10.1 g/dL 12.0-15.0 [facility] Blood lymphocytes/100 leukoc ytesOrdered By: Dr. Cortes on 03-14-2022 Lymphocytes/100 WBC (Bld) 37.5 % 19-41 [facility] Blood monocytes/100 leukocyt esOrdered By: Dr. Cortes on 03-14-2022 Monocytes/100 WBC (Bld) 10.5 % 0-10 [facility] Blood platelet mean volumeOr dered By: Dr. Cortes on 03-14-2022 Platelet mean volume (Bld) [Entitic vol] 9.7 fL 6.2-12.0 [facility] Determination of erythrocyte mean corpuscular volume (MCV)Ordered By: Dr. Cortes on 03-14-2022 MCV (RBC) [Entitic vol] 96.3 fL 81-99 [facility] Hematocrit Auto (Bld) [Volum e fraction]Ordered By: Dr. Cortes on 03-14-2022 Hematocrit (Bld) [Volume fraction] 31.1 % 37-47 [facility] Laboratory - Chemistry and C hemistry - challengeOrdered By: Dr. Cortes on 03-14-2022 CO2 [Moles/Vol] 26.0 mmol/L 21.0-32.0 [facility] Urea nitrogen/Creatinine [Mass ratio] 39.0 mg/mg 10-20 [facility] Laboratory - Hematology and Cell countsOrdered By: Dr. Cortes on 03-14-2022 Erythrocyte distribution width (RBC) [Entitic vol] 47.6 fL 35.1-43.9 [facility] Erythrocyte distribution width (RBC) [Ratio] 13.2 % 11.6-14.6 [facility] Immature granulocytes/100 WBC (Bld) 0.400 % 0.0-0.9 [facility] Comment on above: IG% - Immature Granu locytes (promyelocytes, myelocytes and metamyelocytes) > 1% indicates that a LEFT SHIFT is Present. MCH (RBC) [Entitic mass] 31.3 pg 27.0-32.0 [facility] Nucleated RBC/100 WBC (Bld) [Ratio] 0 % 0-5 [facility] MCHC Auto (RBC) [Mass/Vol]Or dered By: Dr. Cortes on 03-14-2022 MCHC (RBC) [Mass/Vol] 32.5 g/dL 32-36 [facility] No Panel InformationOrdered By: Dr. Cortes on 03-14-2022 Estimated Creatinine Clearance Calc 41.53 ml/min [facility] Estimated GFR (MDRD) Amer 90 mL/min >60 [facility] Comment on above: GFR Calc Estimated GFR (MDRD) Non-Af Amer 74 mL/min >60 [facility] Comment on above: Non- GFR Calc Platelets bldOrdered By: Dr. Cortes on 03-14-2022 Platelets (Bld) [#/Vol] 238 10*3/uL 150-450 [facility] Serum or plasma calcium jasmin urement (mass/volume)Ordered By: Dr. Cortes on 03-14-2022 Calcium [Mass/Vol] 8.8 mg/dL 8.5-10.1 [facility] Serum or plasma creatinine m easurement (mass/volume)Ordered By: Dr. Cortes on 03-14-2022 Creatinine [Mass/Vol] 0.80 mg/dL 0.55-1.02 [facility] Comment on above: The validity of the calculated GFR & GFRAA in patients over 70 years has not been determined. Clinical correlation is essential. Serum or plasma urea nitroge n measurement (mass/volume)Ordered By: Dr. Cortes on 03-14-2022 Urea nitrogen [Mass/Vol] 31 mg/dL 7-18 [facility] Thin prep Papanicolaou smear with manual screeningOrdered By: Dr. Cortes on 03-14-2022 Thin prep Papanicolaou smear with manual screening 5 5-15 [facility] COVID-19 virus antigen assay Ordered By: Dr. Cortes on 02-24-2022 SARS-CoV-2 (COVID-19) Ag IA.rapid Ql (Resp) [facility] Basophil percentageon 2021 Chloride [Moles/Vol] 113 mmol/L 98-107 [facility] Work Phone: Glucose [Mass/Vol] 114 mg/dL 74-106 [facility] Work Phone: Comment on above: Fasting Glucose resu lt from 100 to 125 mg/dL suggests IMPAIRED HOMEOSTASIS per A.D.A. criteria. Potassium [Moles/Vol] 4.1 mmol/L 3.5-5.1 [facility] Work Phone: Sodium [Moles/Vol] 142 mmol/L 136-145 [facility] Work Phone: WBC (Bld) [#/Vol] 9.6 10*3/uL 4.4-11.0 [facility] Work Phone: Blood erythrocytes count (nu mber/volume)on 02-13-2022 RBC (Bld) [#/Vol] 3.24 10*6/uL 4.2-5.4 [facility] Work Phone: Blood hemoglobin measurement (mass/volume)on 02-13-2022 Hemoglobin (Bld) [Mass/Vol] 10.1 g/dL 12.0-15.0 [facility] Work Phone: Blood platelet mean volumeon 02-13-2022 Platelet mean volume (Bld) [Entitic vol] 8.9 fL 6.2-12.0 [facility] Work Phone: Determination of erythrocyte mean corpuscular volume (MCV)on 02-13-2022 MCV (RBC) [Entitic vol] 96.9 fL 81-99 [facility] Work Phone: Hematocrit Auto (Bld) [Volum e fraction]on 02-13-2022 Hematocrit (Bld) [Volume fraction] 31.4 % 37-47 [facility] Work Phone: Laboratory - Chemistry and C hemistry - challengeon 02-13-2022 CO2 [Moles/Vol] 26.0 mmol/L 21.0-32.0 [facility] Work Phone: Urea nitrogen/Creatinine [Mass ratio] 44.2 mg/mg 10-20 [facility] Work Phone: Laboratory - Hematology and Cell countson 02-13-2022 Erythrocyte distribution width (RBC) [Entitic vol] 49.6 fL 35.1-43.9 [facility] Work Phone: Erythrocyte distribution width (RBC) [Ratio] 13.8 % 11.6-14.6 [facility] Work Phone: MCH (RBC) [Entitic mass] 31.2 pg 27.0-32.0 [facility] Work Phone: MCHC Auto (RBC) [Mass/Vol]on 02-13-2022 MCHC (RBC) [Mass/Vol] 32.2 g/dL 32-36 [facility] Work Phone: No Panel Informationon 02-13 Estimated Creatinine Clearance Calc 32.62 ml/min [facility] Work Phone: Estimated GFR (MDRD) Amer 104 mL/min >60 [facility] Work Phone: Comment on above: GFR Calc Estimated GFR (MDRD) Non-Af Amer 86 mL/min >60 [facility] Work Phone: Comment on above: Non- GFR Calc Platelets bldon 02-13-2022 Platelets (Bld) [#/Vol] 294 10*3/uL 150-450 [facility] Work Phone: Serum or plasma calcium jasmin urement (mass/volume)on 02-13-2022 Calcium [Mass/Vol] 8.6 mg/dL 8.5-10.1 [facility] Work Phone: Serum or plasma creatinine m easurement (mass/volume)on 02-13-2022 Creatinine [Mass/Vol] 0.70 mg/dL 0.55-1.02 [facility] Work Phone: Comment on above: The validity of the calculated GFR & GFRAA in patients over 70 years has not been determined. Clinical correlation is essential. Serum or plasma urea nitroge n measurement (mass/volume)on 02-13-2022 Urea nitrogen [Mass/Vol] 31 mg/dL 7-18 [facility] Work Phone: Thin prep Papanicolaou smear with manual screeningon 02-13-2022 Thin prep Papanicolaou smear with manual screening 3 5-15 [facility] Work Phone: Laboratory - Chemistry and C hemistry - challengeon 02-12-2022 Sodium (U) [Moles/Vol] 42 mmol/L Not Establ. [facility] Work Phone: Urine creatinine measurement (mass/volume)on 02-12-2022 Creatinine (U) [Mass/Vol] 56.20 mg/dL NO RANGE EST. [facility] Work Phone: Basophil percentageon 2021 Basophil percentage 3.6 mg/dL 2.5-4.9 [facility] Work Phone: Laboratory - Chemistry and C hemistry - challengeon 02-09-2022 Magnesium [Mass/Vol] 2.5 mg/dL 1.6-2.[address] [facility] Work Phone: INR in Blood by Coagulation assayon 02-08-2022 INR Coag (Bld) [Relative time] 1.1 {INR} [facility] Work Phone: Laboratory - Coagulationon 1 04-10-2021 aPTT Coag (Bld) [Time] 23.7 s 24.1-36.2 [facility] Work Phone: PT Coag (PPP) [Time] 14.0 s 11.7-14.9 [facility] Work Phone: Basophil percentageon 2021 Bilirubin [Mass/Vol] 0.50 mg/dL 0.20-1.00 [facility] Work Phone: Comment on above: For patients on eltr ombopag therapy, use of Dimension Ennice TBIL is not recommended. Protein [Mass/Vol] 6.4 g/dL 6.4-8.2 [facility] Work Phone: Laboratory - Chemistry and C hemistry - challengeon 01-29-2022 ALP [Catalytic activity/Vol] 72 U/L 45-117 [facility] Work Phone: ALT [Catalytic activity/Vol] 48 U/L 13-56 [facility] Work Phone: Globulin (S) [Mass/Vol] 4.0 g/dL 2.2-4.2 [facility] Work Phone: Serum or plasma albumin jasmin urement (mass/volume)on 01-29-2022 Albumin [Mass/Vol] 2.4 g/dL 3.2-5.0 [facility] Work Phone: Serum or plasma albumin/glob ulin mass ratioon 01-29-2022 Albumin/Globulin [Mass ratio] 0.6 {ratio} 0.9-2.4 [facility] Work Phone: Thin prep Papanicolaou smear with manual screeningon 01-29-2022 Thin prep Papanicolaou smear with manual screening 36 U/L 15-37 [facility] Work Phone: BLOOD CULTUREon 01-28-2022 Bacteria identified Cx Nom (Unsp spec) NO GROWTH DAY 5 OF 5 Normal [facility] Comment on above: Order Comment: Use r yaz, foam, polyester or flocked swabs to collect a nasopharyngeal specimen. After collection, fold over the open end of the collection sleeve and seal with patient lab label, double bag in biohazard bag, and transport to the lab YULIA, no later than 60 minutes from collection. Collection must be done while wearing N-95 mask, eye protection, gown and gloves. Performed By: #### L [id number] #### [facility] (DEFAULT) [address] [address] Bacteria identified Cx Nom ( Bld)on 01-28-2022 Bacteria identified Cx Nom (Unsp spec) NO GROWTH DAY 5 OF 5 [facility] Bacteria identified Cx Nom ( Bld)on 01-27-2022 Bacteria identified Cx Nom (Unsp spec) NO GROWTH DAY 5 OF 5 [facility] Bacteria identified Cx Nom (Unsp spec) NO GROWTH DAY 5 OF 5 [facility] CBC,PLATELETSon 01-27-2022 Hematocrit (Bld) [Volume fraction] 30.4 % Low 34.9-44.3 [facility] Comment on above: Performed By: #### H [facility] #### [facility] (DEFAULT) [address] [address] Hemoglobin (Bld) [Mass/Vol] 9.9 g/dL Low 11.4-15.2 [facility] Comment on above: Performed By: #### H [facility] #### [facility] (DEFAULT) [address] [address] MCV (RBC) [Entitic vol] 93.3 fL Normal 79.6-97.7 [facility] Comment on above: Performed By: #### H [facility] #### U [facility] (DEFAULT) [address] [address] Mean Cell Hgb 30.4 pg Normal 25.9-33.9 [facility] Comment on above: Performed By: #### H EMOGC #### U [facility] (DEFAULT) [address] [address] Mean Cell Hgb Conc 32.6 g/dL Normal 31.4-35.9 [facility] Comment on above: Performed By: #### H EMOGC #### U [facility] (DEFAULT) [address] [address] Platelet mean volume (Bld) [Entitic vol] 10.8 fL Normal 8.5-12.2 [facility] Comment on above: Performed By: #### H EMOGC #### [facility] (DEFAULT) [address] [address] Platelets (Bld) [#/Vol] 279 10*3/uL Normal 150-393 [facility] Comment on above: Performed By: #### H EMOGC #### [facility] (DEFAULT) [address] [address] RBC (Bld) [#/Vol] 3.26 10*6/uL Low 3.91-5.04 [facility] Comment on above: Performed By: #### H EMOGC #### U [facility] (DEFAULT) [address] [address] RBC Distribution 13.3 % Normal 10.8-14.9 [facility] Comment on above: Performed By: #### H EMOGC #### U [facility] (DEFAULT) [address] [address] WBC (Bld) [#/Vol] 10.79 10*3/uL Normal 3.99-11.19 [facility] Comment on above: Performed By: #### H EMOGC #### U [facility] (DEFAULT) [address] [address] Erythrocyte distribution width (RBC) [Ratio] 13.3 % 10.8 - 14.9 % [facility] Hematocrit (Bld) [Volume fraction] 30.4 % Low 34.9 - 44.3 % [facility] Hemoglobin (Bld) [Mass/Vol] 9.9 g/dL Low 11.4 - 15.2 g/dL [facility] Interpretation and review of laboratory results Abnormal [facility] MCH (RBC) [Entitic mass] 30.4 pg 25.9 - 33.9 pg [facility] MCHC (RBC) [Mass/Vol] 32.6 g/dL 31.4 - 35.9 g/dL [facility] MCV (RBC) [Entitic vol] 93.3 fL 79.6 - 97.7 fL [facility] Platelet mean volume (Bld) [Entitic vol] 10.8 fL 8.5 - 12.2 fL [facility] Platelets (Bld) [#/Vol] 279 10*3/uL 150 - 393 K/uL [facility] RBC (Bld) [#/Vol] 3.26 10*6/uL Low [facility] WBC (Bld) [#/Vol] 10.79 10*3/uL 3.99 - 11 .19 K/uL [facility] CHEM 7 (LYTES,BUN,CREA,GLUC) on 01-27-2022 Anion gap [Moles/Vol] 13 mmol/L Normal 7-17 [facility] Comment on above: Performed By: #### M GO, CHM7, IPB, LIPDR, HFP #### [facility] (DEFAULT) [address] [place] [address] Chloride [Moles/Vol] 104 mmol/L Normal 98-108 [facility] Comment on above: Performed By: #### M GO, CHM7, IPB, LIPDR, HFP #### [facility] (DEFAULT) [address] [place] [address] CO2 [Moles/Vol] 26 mmol/L Normal 21-31 [facility] Comment on above: Performed By: #### M GO, CHM7, IPB, LIPDR, HFP #### U [facility] (DEFAULT) [address] [place] [address] Creatinine [Mass/Vol] 0.85 mg/dL Normal 0.50-1.20 [facility] Comment on above: Performed By: #### M GO, CHM7, IPB, LIPDR, HFP #### U [facility] (DEFAULT) [address] [place] [address] GFR/1.73 sq M.predicted among non-blacks MDRD (S/P/Bld) [Vol rate/Area] 70 mL/min/{1.73_m2} Normal >=60 [facility] Comment on above: Result Comment: Repo rted eGFR is based on the CKD-EPI 2020 equation using creatinine, age, and sex. Performed By: #### M GO, CHM7, IPB, LIPDR, HFP #### U [facility] (DEFAULT) [address] [place] [address] Glucose [Mass/Vol] 101 mg/dL High 70-99 [facility] Comment on above: Performed By: #### M GO, CHM7, IPB, LIPDR, HFP #### U [facility] (DEFAULT) [address] [place] [address] Osmolality [Osmolality] 297 mosm/kg Normal 278-305 [facility] Comment on above: Performed By: #### M GO, CHM7, IPB, LIPDR, HFP #### U [facility] (DEFAULT) [address] [place] [address] Potassium [Moles/Vol] 4.5 mmol/L Normal 3.5-5.0 [facility] Comment on above: Performed By: #### M GO, CHM7, IPB, LIPDR, HFP #### U [facility] (DEFAULT) [address] [place] [address] Sodium [Moles/Vol] 138 mmol/L Normal 135-145 [facility] Comment on above: Performed By: #### M GO, CHM7, IPB, LIPDR, HFP #### [facility] (DEFAULT) [address] [place] [address] Urea nitrogen [Mass/Vol] 33 mg/dL High 7-25 [facility] Comment on above: Performed By: #### M JOSE RAMON, CHM7, IPB, LIPDR, HFP #### [facility] (DEFAULT) [address] [place] [address] Urea nitrogen/Creatinine [Mass ratio] 39 mg/mg Normal [facility] Comment on above: Performed By: #### M JOSE RAMON, CHM7, IPB, LIPDR, HFP #### [facility] (DEFAULT) [address] [place] [address] Anion gap [Moles/Vol] 13 mmol/L 7 - 17 mmol/L [facility] Chloride [Moles/Vol] 104 mmol/L 98 - 10 8 mmol/L [facility] CO2 [Moles/Vol] 26 mmol/L 21 - 31 mmol/L [facility] Creatinine [Mass/Vol] 0.85 mg/dL 0.50 - 1.20 mg/dL [facility] GFR/1.73 sq M.predicted CKD-EPI (S/P/Bld) [Vol rate/Area] 70 - PINF [facility] Glucose [Mass/Vol] 101 mg/dL High 70 - 99 mg/dL [facility] Interpretation and review of laboratory results Abnormal [facility] Osmolality Calc [Osmolality] 297 [facility] Potassium [Moles/Vol] 4.5 mmol/L 3.5 - 5.0 mmol/L [facility] Sodium [Moles/Vol] 138 mmol/L 135 - 145 mmol/L [facility] Urea nitrogen [Mass/Vol] 33 mg/dL High 7 - 25 mg/dL [facility] Urea nitrogen/Creatinine [Mass ratio] 39 mg/mg [facility] CONTINUOUS CARDIAC MONITORIN G STRIPon 01-27-2022 [facility] CBC,PLATELETSon 01-26-2022 Hematocrit (Bld) [Volume fraction] 30.3 % Low 34.9-44.3 [facility] Comment on above: Performed By: #### M GO, CHM7, IPB, LIPDR, HFP #### [facility] (DEFAULT) [address] [place] [address] Hemoglobin (Bld) [Mass/Vol] 10.1 g/dL Low 11.4-15.2 [facility] Comment on above: Performed By: #### M GO, CHM7, IPB, LIPDR, HFP #### [facility] (DEFAULT) [address] [place] [address] MCV (RBC) [Entitic vol] 91.5 fL Normal 79.6-97.7 O [facility] Comment on above: Performed By: #### M GO, CHM7, IPB, LIPDR, HFP #### [facility] (DEFAULT) [address] [place] [address] Mean Cell Hgb 30.5 pg Normal 25.9-33.9 [facility] Comment on above: Performed By: #### M GO, CHM7, IPB, LIPDR, HFP #### [facility] (DEFAULT) [address] [place] [address] Mean Cell Hgb Conc 33.3 g/dL Normal 31.4-35.9 [facility] Comment on above: Performed By: #### M GO, CHM7, IPB, LIPDR, HFP #### [facility] (DEFAULT) [address] [place] [address] Platelet mean volume (Bld) [Entitic vol] 10.9 fL Normal 8.5-12.2 [facility] Comment on above: Performed By: #### M GO, CHM7, IPB, LIPDR, HFP #### [facility] (DEFAULT) [address] [place] [address] Platelets (Bld) [#/Vol] 227 10*3/uL Normal 150-393 [facility] Comment on above: Performed By: #### M GO, CHM7, IPB, LIPDR, HFP #### [facility] (DEFAULT) [address] [place] [address] RBC (Bld) [#/Vol] 3.31 10*6/uL Low 3.91-5.04 [facility] Comment on above: Performed By: #### M GO, CHM7, IPB, LIPDR, HFP #### [facility] (DEFAULT) [address] [place] [address] RBC Distribution 13.2 % Normal 10.8-14.9 [facility] Comment on above: Performed By: #### M GO, CHM7, IPB, LIPDR, HFP #### [facility] (DEFAULT) [address] [place] [address] WBC (Bld) [#/Vol] 11.01 10*3/uL Normal 3.99-11.19 [facility] Comment on above: Performed By: #### M GO, CHM7, IPB, LIPDR, HFP #### [facility] (DEFAULT) [address] [place] [address] Erythrocyte distribution width (RBC) [Ratio] 13.2 % 10.8 - 14.9 % [facility] Hematocrit (Bld) [Volume fraction] 30.3 % Low 34.9 - 44.3 % [facility] Hemoglobin (Bld) [Mass/Vol] 10.1 g/dL Low 11.4 - 15.2 g/dL [facility] Interpretation and review of laboratory results Abnormal [facility] MCH (RBC) [Entitic mass] 30.5 pg 25.9 - 33.9 pg [facility] MCHC (RBC) [Mass/Vol] 33.3 g/dL 31.4 - 35.9 g/dL [facility] MCV (RBC) [Entitic vol] 91.5 fL 79.6 - 97.7 fL [facility] Platelet mean volume (Bld) [Entitic vol] 10.9 fL 8.5 - 12.2 fL [facility] Platelets (Bld) [#/Vol] 227 10*3/uL 150 - 393 K/uL [facility] RBC (Bld) [#/Vol] 3.31 10*6/uL Low [facility] WBC (Bld) [#/Vol] 11.01 10*3/uL 3.99 - 11 .19 K/uL [facility] CHEM 7 (LYTES,BUN,CREA,GLUC) on 01-26-2022 Anion gap [Moles/Vol] 13 mmol/L Normal 7-17 [facility] Comment on above: Performed By: #### M GO, CHM7, IPB, LIPDR, HFP #### [facility] (DEFAULT) [address] [place] [address] Chloride [Moles/Vol] 104 mmol/L Normal 98-108 [facility] Comment on above: Performed By: #### M GO, CHM7, IPB, LIPDR, HFP #### [facility] (DEFAULT) [address] [place] [address] CO2 [Moles/Vol] 22 mmol/L Normal 21-31 [facility] Comment on above: Performed By: #### M GO, CHM7, IPB, LIPDR, HFP #### [facility] (DEFAULT) [address] [place] [address] Creatinine [Mass/Vol] 0.78 mg/dL Normal 0.50-1.20 [facility] Comment on above: Performed By: #### M GO, CHM7, IPB, LIPDR, HFP #### [facility] (DEFAULT) [address] [place] [address] GFR/1.73 sq M.predicted among non-blacks MDRD (S/P/Bld) [Vol rate/Area] 77 mL/min/{1.73_m2} Normal >=60 [facility] Comment on above: Result Comment: Repo rted eGFR is based on the CKD-EPI 2020 equation using creatinine, age, and sex. Performed By: #### M GO, CHM7, IPB, LIPDR, HFP #### U [facility] (DEFAULT) [address] [place] [address] Glucose [Mass/Vol] 94 mg/dL Normal 70-99 [facility] Comment on above: Performed By: #### M GO, CHM7, IPB, LIPDR, HFP #### U [facility] (DEFAULT) [address] [place] [address] Osmolality [Osmolality] 288 mosm/kg Normal 278-305 [facility] Comment on above: Performed By: #### M GO, CHM7, IPB, LIPDR, HFP #### U [facility] (DEFAULT) [address] [place] [address] Potassium [Moles/Vol] 4.3 mmol/L Normal 3.5-5.0 [facility] Comment on above: Performed By: #### M GO, CHM7, IPB, LIPDR, HFP #### U [facility] (DEFAULT) [address] [place] [address] Sodium [Moles/Vol] 135 mmol/L Normal 135-145 [facility] Comment on above: Performed By: #### M GO, CHM7, IPB, LIPDR, HFP #### U [facility] (DEFAULT) [address] [place] [address] Urea nitrogen [Mass/Vol] 24 mg/dL Normal 7-25 [facility] Comment on above: Performed By: #### M GO, CHM7, IPB, LIPDR, HFP #### U [facility] (DEFAULT) [address] [place] [address] Urea nitrogen/Creatinine [Mass ratio] 31 mg/mg Normal [facility] Comment on above: Performed By: #### M FARHAN ALBRIGHT, CAIT, QUIN, HFP #### [facility] (DEFAULT) [address] [place] [address] Anion gap [Moles/Vol] 13 mmol/L 7 - 17 mmol/L [facility] Chloride [Moles/Vol] 104 mmol/L 98 - 10 8 mmol/L [facility] CO2 [Moles/Vol] 22 mmol/L 21 - 31 mmol/L [facility] Creatinine [Mass/Vol] 0.78 mg/dL 0.50 - 1.20 mg/dL [facility] GFR/1.73 sq M.predicted CKD-EPI (S/P/Bld) [Vol rate/Area] 77 - PINF [facility] Glucose [Mass/Vol] 94 mg/dL 70 - 99 mg/dL [facility] Osmolality Calc [Osmolality] 288 [facility] Potassium [Moles/Vol] 4.3 mmol/L 3.5 - 5.0 mmol/L [facility] Sodium [Moles/Vol] 135 mmol/L 135 - 145 mmol/L [facility] Urea nitrogen [Mass/Vol] 24 mg/dL 7 - 25 mg/dL [facility] Urea nitrogen/Creatinine [Mass ratio] 31 mg/mg [facility] IONIZED CALCIUM, WHOLE BLOOD on 01-26-2022 Calcium.ionized (Bld) [Moles/Vol] 4.52 mg/dL Low 4.60 - 5.30 mg/dL [facility] Interpretation and review of laboratory results Abnormal [facility] ICA 4.52 mg/dL Low 4.60-5.30 [facility] Comment on above: Performed By: #### M FARHAN ALBRIGHT, IPB, LIP, HFP #### [facility] (DEFAULT) [address] [place] [address] MAGNESIUMon 01-26-2022 Magnesium [Mass/Vol] 2.2 mg/dL Normal 1.6-2.6 [facility] Comment on above: Performed By: #### M FARHAN ALBRIGHT, IPB, LIPDR, HFP #### [facility] (DEFAULT) [address] [place] [address] 29622 Magnesium [Mass/Vol] 2.2 mg/dL 1.6 - 2 .6 mg/dL [facility] No Panel Informationon 01-26 Interpretation and review of laboratory results Normal [facility] PHOSPHATE, INORGANICon 01-26 Phosphorous 3.0 mg/dL Normal 2.2-4.6 [facility] Comment on above: Performed By: #### FARHAN CALL, IPCheko, LIPDR, HFP #### [facility] (DEFAULT) [address] [place] [address] 16098 Phosphate [Mass/Vol] 3.0 mg/dL 2.2 - 4 .6 mg/dL [facility] AMYLASEon 01-25-2022 Amylase [Catalytic activity/Vol] 22 U/L 20 - 103 U/L [facility] Interpretation and review of laboratory results Normal [facility] Amylase [Catalytic activity/Vol] 22 U/L Normal 20-103 [facility] Comment on above: Performed By: #### M FARHAN ALBRIGHT, IPB, LIPDR, HFP #### [facility] (DEFAULT) [address] [place] [address] 56967 CBC,PLATELETSon 01-25-2022 Hematocrit (Bld) [Volume fraction] 32.0 % Low 34.9-44.3 [facility] Comment on above: Performed By: #### FARHAN CALL, IPB, LIPDR, HFP #### [facility] (DEFAULT) [address] [place] [address] 91269 Hemoglobin (Bld) [Mass/Vol] 10.4 g/dL Low 11.4-15.2 [facility] Comment on above: Performed By: #### M GO, CHM7, IPB, LIPDR, HFP #### U [facility] (DEFAULT) [address] [place] [address] 43003 MCV (RBC) [Entitic vol] 92.5 fL Normal 79.6-97.7 O [facility] Comment on above: Performed By: #### M GO, CHM7, IPB, LIPDR, HFP #### U [facility] (DEFAULT) [address] [place] [address] 88621 Mean Cell Hgb 30.1 pg Normal 25.9-33.9 [facility] Comment on above: Performed By: #### M GO, CHM7, IPB, LIPDR, HFP #### U [facility] (DEFAULT) [address] [place] [address] 05204 Mean Cell Hgb Conc 32.5 g/dL Normal 31.4-35.9 [facility] Comment on above: Performed By: #### M GO, CHM7, IPB, LIPDR, HFP #### U [facility] (DEFAULT) [address] [place] [address] 27247 Platelet mean volume (Bld) [Entitic vol] 11.1 fL Normal 8.5-12.2 [facility] Comment on above: Performed By: #### M GO, CHM7, IPB, LIPDR, HFP #### [facility] (DEFAULT) [address] [place] [address] 99078 Platelets (Bld) [#/Vol] 181 10*3/uL Normal 150-393 [facility] Comment on above: Performed By: #### M GO, CHM7, IPB, LIPDR, HFP #### [facility] (DEFAULT) [address] [place] [address] 32583 RBC (Bld) [#/Vol] 3.46 10*6/uL Low 3.91-5.04 [facility] Comment on above: Performed By: #### M GO, CHM7, IPB, LIPDR, HFP #### U [facility] (DEFAULT) [address] [place] [address] 23813 RBC Distribution 12.9 % Normal 10.8-14.9 [facility] Comment on above: Performed By: #### M JOSE RAMON, CHM7, IPB, LIPDR, HFP #### [facility] (DEFAULT) [address] [place] [address] 34139 WBC (Bld) [#/Vol] 11.59 10*3/uL High 3.99-11.19 [facility] Comment on above: Performed By: #### M JOSE RAMON, CHM7, IPB, LIPDR, HFP #### [facility] (DEFAULT) [address] [place] [address] 18861 Erythrocyte distribution width (RBC) [Ratio] 12.9 % 10.8 - 14.9 % [facility] Hematocrit (Bld) [Volume fraction] 32.0 % Low 34.9 - 44.3 % [facility] Hemoglobin (Bld) [Mass/Vol] 10.4 g/dL Low 11.4 - 15.2 g/dL [facility] Interpretation and review of laboratory results Abnormal [facility] MCH (RBC) [Entitic mass] 30.1 pg 25.9 - 33.9 pg [facility] MCHC (RBC) [Mass/Vol] 32.5 g/dL 31.4 - 35.9 g/dL [facility] MCV (RBC) [Entitic vol] 92.5 fL 79.6 - 97.7 fL [facility] Platelet mean volume (Bld) [Entitic vol] 11.1 fL 8.5 - 12.2 fL [facility] Platelets (Bld) [#/Vol] 181 10*3/uL 150 - 393 K/uL [facility] RBC (Bld) [#/Vol] 3.46 10*6/uL Low [facility] WBC (Bld) [#/Vol] 11.59 10*3/uL High 3.99 - 11 .19 K/uL [facility] CHEM 7 (LYTES,BUN,CREA,GLUC) on 01-25-2022 Anion gap [Moles/Vol] 12 mmol/L Normal 7-17 [facility] Comment on above: Performed By: #### M GO, CHM7, IPB, LIPDR, HFP #### [facility] (DEFAULT) [address] [place] [address] 60581 Chloride [Moles/Vol] 107 mmol/L Normal 98-108 [facility] Comment on above: Performed By: #### M GO, CHM7, IPB, LIPDR, HFP #### [facility] (DEFAULT) [address] [place] [address] 64777 CO2 [Moles/Vol] 22 mmol/L Normal 21-31 [facility] Comment on above: Performed By: #### M GO, CHM7, IPB, LIPDR, HFP #### U [facility] (DEFAULT) [address] [place] [address] 69873 Creatinine [Mass/Vol] 0.81 mg/dL Normal 0.50-1.20 [facility] Comment on above: Performed By: #### M GO, CHM7, IPB, LIPDR, HFP #### U [facility] (DEFAULT) [address] [place] [address] 12757 GFR/1.73 sq M.predicted among non-blacks MDRD (S/P/Bld) [Vol rate/Area] 74 mL/min/{1.73_m2} Normal >=60 [facility] Comment on above: Result Comment: Repo rted eGFR is based on the CKD-EPI 2020 equation using creatinine, age, and sex. Performed By: #### M GO, CHM7, IPB, LIPDR, HFP #### U [facility] (DEFAULT) [address] [place] [address] 03768 Glucose [Mass/Vol] 107 mg/dL High 70-99 [facility] Comment on above: Performed By: #### M GO, CHM7, IPB, LIPDR, HFP #### [facility] (DEFAULT) [address] [place] [address] 58572 Osmolality [Osmolality] 291 mosm/kg Normal 278-305 [facility] Comment on above: Performed By: #### M GO, CHM7, IPB, LIPDR, HFP #### U [facility] (DEFAULT) [address] [place] [address] 19175 Potassium [Moles/Vol] 4.2 mmol/L Normal 3.5-5.0 [facility] Comment on above: Performed By: #### M GO, CHM7, IPB, LIPDR, HFP #### U [facility] (DEFAULT) [address] [place] [address] 49989 Sodium [Moles/Vol] 137 mmol/L Normal 135-145 [facility] Comment on above: Performed By: #### M GO, CHM7, IPB, LIPDR, HFP #### U [facility] (DEFAULT) [address] [place] [address] 22434 Urea nitrogen [Mass/Vol] 20 mg/dL Normal 7-25 [facility] Comment on above: Performed By: #### M GO, CHM7, IPB, LIPDR, HFP #### U [facility] (DEFAULT) [address] [place] [address] 18632 Urea nitrogen/Creatinine [Mass ratio] 25 mg/mg Normal [facility] Comment on above: Performed By: #### M GO, CHM7, IPB, LIPDR, HFP #### [facility] (DEFAULT) [address] [place] [address] 24185 Anion gap [Moles/Vol] 12 mmol/L 7 - 17 mmol/L [facility] Chloride [Moles/Vol] 107 mmol/L 98 - 10 8 mmol/L [facility] CO2 [Moles/Vol] 22 mmol/L 21 - 31 mmol/L [facility] Creatinine [Mass/Vol] 0.81 mg/dL 0.50 - 1.20 mg/dL [facility] GFR/1.73 sq M.predicted CKD-EPI (S/P/Bld) [Vol rate/Area] 74 - PINF [facility] Glucose [Mass/Vol] 107 mg/dL High 70 - 99 mg/dL [facility] Interpretation and review of laboratory results Abnormal [facility] Osmolality Calc [Osmolality] 291 [facility] Potassium [Moles/Vol] 4.2 mmol/L 3.5 - 5.0 mmol/L [facility] Sodium [Moles/Vol] 137 mmol/L 135 - 145 mmol/L [facility] Urea nitrogen [Mass/Vol] 20 mg/dL 7 - 25 mg/dL [facility] Urea nitrogen/Creatinine [Mass ratio] 25 mg/mg [facility] EXTRA MICROon 01-25-2022 [facility] HEPATIC FUNCTION PANELon Albumin [Mass/Vol] 3.1 g/dL Low 3.5 - 5.0 g/dL [facility] ALP [Catalytic activity/Vol] 71 U/L 32 - 126 U/L [facility] ALT [Catalytic activity/Vol] 32 U/L 9 - 48 U/L [facility] AST [Catalytic activity/Vol] 50 U/L High 10 - 39 U/L [facility] Bilirubin [Mass/Vol] 0.5 [facility] Bilirubin.direct [Mass/Vol] 0.1 mg/dL NINF - 0.3 mg/dL [facility] Protein [Mass/Vol] 5.7 g/dL Low 6.4 - 8.3 g/dL [facility] Albumin [Mass/Vol] 3.1 g/dL Low 3.5-5.0 [facility] Comment on above: Performed By: #### M JOSE RAMON, CHM7, IPB, LIPDR, HFP #### U [facility] (DEFAULT) [address] [place] [address] ALP [Catalytic activity/Vol] 71 U/L Normal 32-126 [facility] Comment on above: Performed By: #### M GO, CHM7, IPB, LIPDR, HFP #### U [facility] (DEFAULT) [address] [place] [address] 24814 ALT [Catalytic activity/Vol] 32 U/L Normal 9-48 [facility] Comment on above: Performed By: #### M GO, CHM7, IPB, LIPDR, HFP #### [facility] (DEFAULT) [address] [place] [address] 93223 AST [Catalytic activity/Vol] 50 U/L High 10-39 [facility] Comment on above: Performed By: #### M GO, CHM7, IPB, LIPDR, HFP #### [facility] (DEFAULT) [address] [place] [address] 60007 Bilirubin [Mass/Vol] 0.5 mg/dL Normal <1.5 [facility] Comment on above: Performed By: #### M GO, CHM7, IPB, LIPDR, HFP #### U [facility] (DEFAULT) [address] [place] [address] 73591 Bilirubin.indirect [Mass/Vol] 0.1 mg/dL Normal <0.3 [facility] Comment on above: Performed By: #### M GO, CHM7, IPB, LIPDR, HFP #### U [facility] (DEFAULT) [address] [place] [address] 92193 Protein [Mass/Vol] 5.7 g/dL Low 6.4-8.3 [facility] Comment on above: Performed By: #### M GO, CHM7, IPB, LIPDR, HFP #### U [facility] (DEFAULT) [address] [place] [address] 59621 IONIZED CALCIUM, WHOLE BLOOD on 01-25-2022 ICA 4.37 mg/dL Low 4.60-5.30 [facility] Comment on above: Performed By: #### M GO, CHM7, IPB, LIPDR, HFP #### [facility] (DEFAULT) [address] [place] [address] 86925 Calcium.ionized (Bld) [Moles/Vol] 4.37 mg/dL Low 4.60 - 5.30 mg/dL [facility] Interpretation and review of laboratory results Abnormal [facility] LACTATE, BLOODon 01-25-2022 Lactate, Blood 2.0 mmol/L High 0.5-1.6 [facility] Comment on above: Performed By: #### H [facility] #### [facility] (DEFAULT) [address] [place] [address] 50167 LACTATE, BLOODOrdered By: Genny Grayson on 01-25-2022 Interpretation and review of laboratory results Abnormal [facility] Lactate [Moles/Vol] 2.0 mmol/L High 0.5 - 1. 6 mmol/L [facility] LIPASEon 01-25-2022 Lipase [Catalytic activity/Vol] 6 U/L Low 11 - 82 U/L [facility] Lipase [Catalytic activity/Vol] 6 U/L Low 11-82 [facility] Comment on above: Performed By: #### M GO, CHM7, IPB, LIPDR, HFP #### [facility] (DEFAULT) [address] [place] [address] 20943 MAGNESIUMon 01-25-2022 Magnesium [Mass/Vol] 2.1 mg/dL Normal 1.6-2.6 [facility] Comment on above: Performed By: #### M JOSE RAMON, CHM7, IPB, LIPDR, HFP #### [facility] (DEFAULT) [address] [place] [address] Magnesium [Mass/Vol] 2.1 mg/dL 1.6 - 2 .6 mg/dL [facility] No Panel Informationon 01-25 Interpretation and review of laboratory results Abnormal [facility] Interpretation and review of laboratory results Normal [facility] PHOSPHATE, INORGANICon 01-25 Phosphorous 2.2 mg/dL Normal 2.2-4.6 [facility] Comment on above: Performed By: #### M FARHAN ALBRIGHT, CAIT, QUIN, MARGOTH #### [facility] (DEFAULT) [address] [address] Phosphate [Mass/Vol] 2.2 mg/dL 2.2 - 4 .6 mg/dL [facility] PROCALCITONINon 01-25-2022 Interpretation and review of laboratory results Normal [facility] Procalcitonin [Mass/Vol] 0.23 ng/mL NINF - 0.50 ng/mL [facility] Procalcitonin 0.23 ng/mL Normal <0.50 [facility] Comment on above: Result Comment: Proc alcitonin is an FDA-approved assay to help manage antibiotic treatment in patients with sepsis/septic shock and lower respiratory tract infections. Specifically, trending procalcitonin in these situations can be used to reduce the duration of antibiotics. Please refer to the Procalcitonin Guide on the Antimicrobial Stewardship Webpage for more guidance on how to use and trend procalcitonin in various clinical settings. [email or web address] [email or web address]?sourcedoc=/departments/[email or web address]/Documents/[email or web address] calcitonin.docx&action=default&DefaultItemOpen=1 Two common cutoffs associated with bacterial infections are as follows. Respiratory tract infections: >0.25 ng/mL Sepsis/septic shock: >0.5 ng/mL Procalcitonin should not be used alone as a diagnostic tool, however. All procalcitonin results should be interpreted in association with the patients clinical condition and all laboratory findings. Performed By: #### M FARHAN ALBRIGHT, CAIT, QUIN, MARGOTH #### U [facility] (DEFAULT) [address] [address] US ABDOMEN RUQ/LIVER/GBon US ABDOMEN RUQ/LIVER/GB EXAM: US ABDOMEN RUQ/LIVER/GB, 01/25/2022 15:27 PM CLINICAL INDICATIONS: AST elevation COMPARISON: No prior studies available for comparison. TECHNIQUE: Real-time ultrasound evaluation of the right upper quadrant was performed utilizing a curved array transducer. Duplex scan is performed. Color flow images and spectral waveforms obtained. FINDINGS: Pancreas: The visualized pancreas is sonographically normal in appearance. Liver: The liver parenchyma is homogenous in echotexture. There is no evidence of an intrahepatic mass or biliary ductal dilation. Doppler ultrasound demonstrates hepatopetal flow in the main portal vein. Flow velocity is 40.4 cm/sec which is normal. Gall Bladder: The gallbladder is normally distended with stones noted. No gallbladder wall thickening or pericholecystic fluid. The sonographic Pollard's sign was reported as negative. The common duct is normal in caliber measuring 3 mm in diameter. Right Kidney: Limited evaluation of the right kidney demonstrates no hydronephrosis. Bipolar length is 8.9 cm. Simple appearing cyst in the superior pole measures up to 1.9 cm. Ascites: There is no ascites in the visualized abdomen. IMPRESSION: 1. Unremarkable sonographic appearance of the liver. 2. Cholelithiasis without evidence of acute cholecystitis. Normal [facility] US Abdomen RUQon 01-25-2022 RADIOLOGY RADIOLOGY [facility] Radiology Study observation (narrative) [facility] US Abdomen RUQOrdered By: Alycia Ty on 01-25-2022 [facility] Work Phone: US.doppler Lower extremity v ein - bilateralOrdered By: Jovan Negrete on 01-25-2022 [facility] Work Phone: US.doppler Lower extremity v ein - bilateralon 01-25-2022 Radiology Study observation (narrative) [facility] B-TYPE NATRIURETIC PEPTIDE ( BRAIN)on 01-24-2022 Interpretation and review of laboratory results Abnormal [facility] Natriuretic peptide B (Bld) [Mass/Vol] 195 pg/mL High 0 - 100 pg/mL [facility] CBC,PLATELETSon 01-24-2022 Hematocrit (Bld) [Volume fraction] 28.2 % Low 34.9-44.3 [facility] Comment on above: Performed By: #### H EMOGC #### [facility] (DEFAULT) [address] [place] [address] 67356 Hemoglobin (Bld) [Mass/Vol] 9.4 g/dL Low 11.4-15.2 [facility] Comment on above: Performed By: #### H EMOGC #### [facility] (DEFAULT) [address] [address] MCV (RBC) [Entitic vol] 92.2 fL Normal 79.6-97.7 [facility] Comment on above: Performed By: #### H EMOGC #### [facility] (DEFAULT) [address] [address] Mean Cell Hgb 30.7 pg Normal 25.9-33.9 [facility] Comment on above: Performed By: #### H EMOGC #### [facility] (DEFAULT) [address] [address] Mean Cell Hgb Conc 33.3 g/dL Normal 31.4-35.9 [facility] Comment on above: Performed By: #### H EMOGC #### [facility] (DEFAULT) [address] [address] Platelet mean volume (Bld) [Entitic vol] 11.4 fL Normal 8.5-12.2 [facility] Comment on above: Performed By: #### H EMOGC #### [facility] (DEFAULT) [address] [address] Platelets (Bld) [#/Vol] 170 10*3/uL Normal 150-393 [facility] Comment on above: Performed By: #### H EMOGC #### [facility] (DEFAULT) [address] [address] RBC (Bld) [#/Vol] 3.06 10*6/uL Low 3.91-5.04 [facility] Comment on above: Performed By: #### [facility] #### [facility] (DEFAULT) [address] [place] [address] RBC Distribution 13.2 % Normal 10.8-14.9 [facility] Comment on above: Performed By: #### [facility] #### [facility] (DEFAULT) [address] [place] [address] WBC (Bld) [#/Vol] 11.34 10*3/uL High 3.99-11.19 [facility] Comment on above: Performed By: #### [facility] #### [facility] (DEFAULT) [address] [place] [address] Erythrocyte distribution width (RBC) [Ratio] 13.2 % 10.8 - 14.9 % [facility] Hematocrit (Bld) [Volume fraction] 28.2 % Low 34.9 - 44.3 % [facility] Hemoglobin (Bld) [Mass/Vol] 9.4 g/dL Low 11.4 - 15.2 g/dL [facility] Interpretation and review of laboratory results Abnormal [facility] MCH (RBC) [Entitic mass] 30.7 pg 25.9 - 33.9 pg [facility] MCHC (RBC) [Mass/Vol] 33.3 g/dL 31.4 - 35.9 g/dL [facility] MCV (RBC) [Entitic vol] 92.2 fL 79.6 - 97.7 fL [facility] Platelet mean volume (Bld) [Entitic vol] 11.4 fL 8.5 - 12.2 fL [facility] Platelets (Bld) [#/Vol] 170 10*3/uL 150 - 393 K/uL [facility] RBC (Bld) [#/Vol] 3.06 10*6/uL Low [facility] WBC (Bld) [#/Vol] 11.34 10*3/uL High 3.99 - 11 .19 K/uL [facility] CHEM 7 (LYTES,BUN,CREA,GLUC) on 01-24-2022 Anion gap [Moles/Vol] 10 mmol/L 7 - 17 mmol/L [facility] Chloride [Moles/Vol] 110 mmol/L High 98 - 10 8 mmol/L [facility] CO2 [Moles/Vol] 24 mmol/L 21 - 31 mmol/L [facility] Creatinine [Mass/Vol] 0.68 mg/dL 0.50 - 1.20 mg/dL [facility] GFR/1.73 sq M.predicted CKD-EPI (S/P/Bld) [Vol rate/Area] 89 - PINF [facility] Glucose [Mass/Vol] 82 mg/dL 70 - 99 mg/dL [facility] Interpretation and review of laboratory results Abnormal [facility] Osmolality Calc [Osmolality] 294 [facility] Potassium [Moles/Vol] 3.9 mmol/L 3.5 - 5.0 mmol/L [facility] Sodium [Moles/Vol] 140 mmol/L 135 - 145 mmol/L [facility] Urea nitrogen [Mass/Vol] 21 mg/dL 7 - 25 mg/dL [facility] Urea nitrogen/Creatinine [Mass ratio] 31 mg/mg [facility] Anion gap [Moles/Vol] 10 mmol/L Normal 7-17 [facility] Comment on above: Performed By: #### M FARHAN ALBRIGHT, CAIT, LIPDR, HFP #### [facility] (DEFAULT) [address] [address] Chloride [Moles/Vol] 110 mmol/L High 98-108 [facility] Comment on above: Performed By: #### M FARHAN ALBRIGHT, IPB, LIPDR, HFP #### [facility] (DEFAULT) [address] [address] CO2 [Moles/Vol] 24 mmol/L Normal 21-31 [facility] Comment on above: Performed By: #### M GO, CHM7, IPB, LIPDR, HFP #### U [facility] (DEFAULT) [address] [place] [address] Creatinine [Mass/Vol] 0.68 mg/dL Normal 0.50-1.20 [facility] Comment on above: Performed By: #### M GO, CHM7, IPB, LIPDR, HFP #### [facility] (DEFAULT) [address] [place] [address] GFR/1.73 sq M.predicted among non-blacks MDRD (S/P/Bld) [Vol rate/Area] 89 mL/min/{1.73_m2} Normal >=60 [facility] Comment on above: Result Comment: Repo rted eGFR is based on the CKD-EPI 2020 equation using creatinine, age, and sex. Performed By: #### M GO, CHM7, IPB, LIPDR, HFP #### [facility] (DEFAULT) [address] [place] [address] Glucose [Mass/Vol] 82 mg/dL Normal 70-99 [facility] Comment on above: Performed By: #### M GO, CHM7, IPB, LIPDR, HFP #### [facility] (DEFAULT) [address] [place] [address]68 Osmolality [Osmolality] 294 mosm/kg Normal 278-305 [facility] Comment on above: Performed By: #### M GO, CHM7, IPB, LIPDR, HFP #### [facility] (DEFAULT) [address] [place] [address] 29068 Potassium [Moles/Vol] 3.9 mmol/L Normal 3.5-5.0 [facility] Comment on above: Performed By: #### M GO, CHM7, IPB, LIPDR, HFP #### U [facility] (DEFAULT) [address] [place] [address]602 Sodium [Moles/Vol] 140 mmol/L Normal 135-145 [facility] Comment on above: Performed By: #### M GO, CHM7, IPB, LIPDR, HFP #### [facility] (DEFAULT) [address] [place] [address] 26733 Urea nitrogen [Mass/Vol] 21 mg/dL Normal 7-25 [facility] Comment on above: Performed By: #### M GO, CHM7, IPB, LIPDR, HFP #### [facility] (DEFAULT) [address] [place] [address] Urea nitrogen/Creatinine [Mass ratio] 31 mg/mg Normal [facility] Comment on above: Performed By: #### M GO, CHM7, IPB, LIPDR, HFP #### [facility] (DEFAULT) [address] [place] [address] CONTINUOUS CARDIAC MONITORIN G STRIPon 01-24-[address] [facility] [address] HEAD WITHOUT CONTRASTon 1 03-26-2021 CT HEAD WITHOUT CONTRAST EXAM: CT HEAD WITHOUT CONTRAST, 01/24/2022 3:18 AM COMPARISON: Comparison and is made to previous examination dated 01/22/2022. CLINICAL INDICATIONS: 81 years Female Parenchymal hemorrhage, follow-up; Stroke, follow up; TECHNIQUE: A series of transaxial computerized tomographic images are obtained from base of skull to vertex without intravenous contrast. Axial whole-head and thin section posterior fossa slices are provided. Reformats: Sagittal and coronal. FINDINGS: Again noted is a hemorrhagic infarct centered in the right basal ganglia and involving the right frontal lobe and temporal lobes which is unchanged from the prior exam. Significant mass effect continues on the ventricular system and in particular the right frontal horn which is effaced. Stable minimal midline shift to the left. The previously noted right cerebellar infarct is not clearly seen. Prominent atherosclerotic calcifications are noted. No new areas of abnormal increased or decreased density are noted in the brain parenchyma. There is no extracerebral collection. The ventricular system is stable in size and configuration. Posterior fossa is within normal limits. Calvarium and skull base appear intact. Visualized sinuses show no air fluid levels. Visualized orbits are unremarkable. IMPRESSION: Stable examination as compared to 01/22/2022. Normal [facility] CT Head WO contraston 2021 RADIOLOGY RADIOLOGY [facility] Radiology Study observation (narrative) [facility] CT Head WO contrastOrdered B y: Gabriel Diaz on 01-24-2022 [facility] Work Phone: Cardiac echo study Procedure Ordered By: Zay Diaz on 01-24-2022 Ao peak cornelius 1.14 m/s [facility] Work Phone: Ao VTI 19.22 cm [facility] Work Phone: Ascending aorta 3.03 cm [facility] Work Phone: AV LVOT peak gradient 5 mmHg [facility] Work Phone: AV mean gradient 3 mmHg [facility] Work Phone: AV peak gradient 5 mmHG [facility] Work Phone: [facility] Velocity Ratio 0.96 [facility] Work Phone: KENIA (continuity Vmax) 2.40 [facility]2 [facility]: KENIA (continuity VTI) 2.60 cm2 [facility] Work Phone: KENIA index (continuity Vmax) 1.67 m[facility]s [facility]: KENIA index (continuity VTI) 1.81 cm2/m2 [facility]: Avg e' pk cornelius 0.09 m/s [facility]: Avg E/e' ratio 11.17 [facility]: Body surface area Derived from formula 1.44 m2 [facility]: BP EF 61 % [facility]: DI (Vmax) 0.96 [facility]: DI (VTI) 1.03 m/2 [facility] Work [facility]: E wave decelartion time 187.86 msec [facility] Work Phone: e' lateral pk cornelius 0.0913 m/[facility]: e' lateral pk cornelius 0.09 m/s [facility]: e' septal pk cornelius 0.0878 [facility]: e' septal pk cornelius 0.09 [facility]: E/A ratio 1.47 [facility] Work Phone: E[facility]e' lateral [facility] [facility] Phone: E/e' septal [facility] 11.39 [facility] SP 2CH 65 [facility]: EF SP 4CH 59 [facility]: EST RAP 3.00 [facility]: EST RVSP 29 [facility]: FS 21 % 28 - 44 % [facility]: IVC ostium 1.50 cm [facility] Work Phone: IVS 0.99 cm [facility] Work Phone: LA AREA 2CH 27.08 cm2 [facility] Work Phone: LA area 4CH 24.22 cm2 [facility] Work Phone: LA ESV BP (MOD) 88 mL [facility] Work Phone: LA ESV BP (MOD) index 61 mL/[facility]2 [facility]: LA ESV SP 2CH (MOD) 98 mL [facility] Work Phone: LA ESV SP 4CH (MOD) 79 mL [facility] Work Phone: LV EDV BP 70 [facility]: LV EDV SP 2CH 65 [facility]: LV EDV SP 4CH 74 [facility] Work [facility]: LV ESV BP 27 [facility]: LV ESV SP 2CH 23 [facility]: LV ESV SP 4CH 30 [facility] Work [facility]: LV mass 110.12 g [facility] Work Phone: LV Mass Index 76.5 g/m2 [facility] Work [facility]: LV RWT 0.53 [facility] Work Phone: LV stroke volume BP (ml) 43 mL [facility] Work Phone: LV stroke volume index BP 29.86 mL/m2 [facility] Work Phone: LVIDD 3.70 cm [facility] Work Phone: LVIDS 2.92 cm [facility] Work Phone: LVOT area 2.52 cm2 [facility] Work Phone: LVOT diameter 1.79 cm [facility] Work Phone: LVOT peak cornelius 1.09 m/s [facility] Work Phone: LVOT peak VTI 19.88 cm [facility] Work Phone: LVOT stroke volume 50 cm3 [facility] Work Phone: LVOT stroke volume index 34.72 ml/m2 [facility] Work Phone: MV pk A cornelius 0.68 m/s [facility] Work Phone: MV pk E cornelius 1.00 m/s [facility] Work Phone: MV stenosis pressure 1/2 time 54.48 ms [facility] Work Phone: MV valve area p 1/2 method 4.04 cm2 [facility] Work Phone: [facility] AV VTI RATIO PRE STRESS 1.03 [facility] Work Phone: [facility] ECHO LV BIPLANE SYSTOLIC VOLUME INDEX 18.75 mL/m2 [facility] Work Phone: [facility] ECHO LV BP DIASTOLIC VOLUME INDEX 48.61 mL/m2 [facility] Work Phone: PW 0.98 cm [facility] Work Phone: RA area 4CH (MOD) 15.40 cm2 [facility] Work Phone: RA vol index 4CH (MOD) 30.56 mL/m2 [facility] Work Phone: Right atrium volume 4 chamber method of disks 44 mL [facility] Work Phone: RV Area diastolic 21.70 cm2 [facility] Work Phone: RV Area systolic 9.60 cm2 [facility]: RV basal diam 3.80 cm [facility] Work Phone: RV Fractional area change 55.8 % [facility]: RV long diam 7.00 [facility]: RV mid diam 2.40 cm [facility] Work Phone: RV S' 12.87 cm/s [facility] Work [facility]: Sinus 3.19 cm [facility] Work Phone: STJ 2.62 cm [facility] Work Phone: Stroke Volume 50 cm/mL [facility] Work Phone: Stroke volume index 35 [facility] Work Phone: TAPSE 2.19 [facility]: TR pk grad 26 mmHg [facility] Work Phone: TR pk cornelius 2.56 m/s [facility] Work Phone: [facility] Work Phone: Cardiac echo study Procedure on 01-24-2022 [facility] Radiology Study observation (narrative) [facility] ECGOrdered By: Margaux bonilla 01-24-2022 [facility] Work Phone: ECHOCARDIOGRAMon 01-24-2022 Echocardiography 1. The left ventricular chamber size and systolic function are normal. LVEF 60-65%. 2. The right ventricular chamber size and systolic function are normal. 3. Left atrium is severely enlarged. 4. There is mild pulmonic regurgitation. Table formatting from the original result was not included. Images from the original result were not included. Facility [facility] Patient Information Patient Name Karlie Valle Legal Sex Female Indication for Exam Priority: Routine Dx: Cerebrovascular accident (CVA), unspecified mechanism [I63.9 (ICD-10-CM)] Order Question Reason for Exam Stroke Interpretation Summary 1. The left ventricular chamber size and systolic function are normal. LVEF 60-65%. 2. The right ventricular chamber size and systolic function are normal. 3. Left atrium is severely enlarged. 4. There is mild pulmonic regurgitation. Findings Left Ventricle Chamber size is normal. Normal wall thickness. Normal global wall motion. Regional wall motion is normal. Ejection fraction is normal (60 - 65%). Diastolic function is normal. Right Ventricle Chamber size is normal. Systolic function is normal. Left Atrium Chamber size is severely enlarged. Right Atrium Chamber size is enlarged. Septum The atrial septum is normal. Mitral Valve Normal appearing leaflets. Leaflet mobility is normal. No regurgitation. No valve stenosis. Aortic Valve Trileaflet valve. Leaflet mobility is normal. Trace regurgitation. No stenosis. Tricuspid Valve Normal leaflets. Leaflet mobility is normal. Trace regurgitation. No stenosis. No echo/Doppler evidence for pulmonary hypertension. Estimated right ventricular systolic pressure is 29 mmHg. Pulmonic Valve Normal structure. Mild regurgitation. No stenosis. Aorta No dilation to extent seen. Pericardium Appears normal. No pericardial effusion. IVC/SVC The inferior vena cava is normal in size. The inferior vena cava structure has a diameter <21 mm and decreases >50% during inspiration. Reading Providers Reading Role Read Date Zay Diaz MD Echo Holcomb 01/24/2022 Wall Scoring Score Index: 1.00 The left ventricular wall motion is normal. Left Heart Measurements LV - Systole LVIDD 3.7 cm IVS 0.99 cm LVIDS 2.92 cm PW 0.98 cm LV RWT 0.53 LV Mass Index 76.5 g/m2 LV EDV BP 70 mL LV ESV BP 27 mL BP EF 61 % LV stroke volume BP (ml) 43 mL LV stroke volume index BP 29.86 mL/m2 LV - Diastole MV pk E cornelius 1 m/s MV pk A cornelius 0.68 m/s E/A ratio 1.47 e' septal pk cornelius 0.09 m/s e' lateral pk cornelius 0.09 m/s Avg e' pk cornelius 0.09 m/s E/e' septal ratio 11.39 E/e' lateral ratio 10.95 Avg E/e' ratio 11.17 LV - HCM AV LVOT peak gradient 5 mmHg Left Atrium LA ESV SP 4CH (MOD) 79 mL LA ESV SP 2CH (MOD) 98 mL LA ESV BP (MOD) index 61 mL/m2 Right Heart Measurements RV - 2D RV basal diam 3.8 cm RV mid diam 2.4 cm RV long diam 7 cm RV Area diastolic 21.7 cm2 RV Area systolic 9.6 cm2 RV Fractional area change 55.8 % RV - Doppler TAPSE 2.19 cm RV S' 12.87 cm/s Right Atrium RA vol index 4CH (MOD) 30.56 mL/m2 EST RAP 3 mmHg RA area 4CH (MOD) 15.4 cm2 Great Vessels Aortic Root - End Diastolic Sinus 3.19 cm STJ 2.62 cm Ascending aorta 3.03 cm Inferior Vena Cava IVC ostium 1.5 cm Doppler Measurements - Aortic Valve Stenosis LVOT diameter 1.79 cm LVOT area 2.52 cm2 LVOT peak cornelius 1.09 m/s LVOT peak VTI 19.88 cm Stroke Volume 50 cm/mL Stroke volume index 35 Ao peak cornelius 1.14 m/s Ao VTI 19.22 cm AV peak gradient 5 mmHG AV mean gradient 3 mmHg DI (VTI) 1.03 m/2 DI (Vmax) 0.96 KENIA (continuity Vmax) 2.4 cm2 KENIA index (continuity Vmax) 1.67 m/s KENIA (continuity VTI) 2.6 cm2 KENIA index (continuity VTI) 1.81 cm2/m2 LVOT stroke volume 50 cm3 LVOT stroke volume index 34.72 ml/m2 Doppler Measurements - Mitral Valve Stenosis MV pk E cornelius 1 m/s MV pk A cornelius 0.68 m/s E/A ratio 1.47 MV stenosis pressure 1/2 time 54.48 ms MV valve area p 1/2 method 4.04 cm2 PISA-MS MV pk E cornelius 1 m/s Doppler Measurements - Tricuspid Valve Stenosis IVC ostium 1.5 cm Regurgitation TR pk cornelius 2.56 m/s TR pk grad 26 mmHg EST RAP 3 mmHg EST RVSP 29 mmHg Performing Staff Julius Candelario RDCS Study Details A complete echocardiography study was performed. Study limitations include poor apical window and technically difficult study. Imaging system used: Siemens. Indications Indications for study: stroke/tia. Exam Details Performed Procedure Technologist Supporting Staff Performing Physician DE ECHOCARDIOGRAM W/O 3D Julius Candelario RDCS Appointmen (more content not included)... Normal [facility] FLUAV and FLUBV Ag IA.rapid Nom (Unsp spec)on 01-24-2022 FLUAV Ag IA.rapid Ql (Nph) Not detected Not Detected [facility] FLUBV Ag IA.rapid Ql (Nph) Not detected Not Detected [facility] Interpretation and review of laboratory results Normal [facility] INFLUENZA A/B RAPID MOLECULA Chapito 01-24-2022 Influenza A, Molecular Not detected Normal Not Detecte d [facility] Comment on above: Order Comment: This test utilizes isothermal nucleic amplification technology for the differential qualitative detection of influenza A and influenza B viral nucleic acids. Performed By: #### H [facility] #### [facility] (DEFAULT) [address] [place] [address] Influenza B, Molecular Not detected Normal Not Detecte d [facility] Comment on above: Order Comment: This test utilizes isothermal nucleic amplification technology for the differential qualitative detection of influenza A and influenza B viral nucleic acids. Performed By: #### [facility] #### [facility] (DEFAULT) [address] [place] [address] IONIZED CALCIUM, WHOLE BLOOD on 01-24-2022 Calcium.ionized (Bld) [Moles/Vol] 4.74 mg/dL 4.60 - 5.30 mg/dL [facility] Interpretation and review of laboratory results Normal [facility] ICA 4.74 mg/dL Normal 4.60-5.30 [facility] Comment on above: Performed By: #### M FARHAN ALBRIGHT, CAIT, QUIN, HFP #### [facility] (DEFAULT) [address] [place] [address] MAGNESIUMon 01-24-2022 Interpretation and review of laboratory results Normal [facility] Magnesium [Mass/Vol] 2.1 mg/dL 1.6 - 2 .6 mg/dL [facility] Magnesium [Mass/Vol] 2.1 mg/dL Normal 1.6-2.6 [facility] Comment on above: Performed By: #### M FARHAN ALBRIGHT, IPCheko, LIP, HFP #### [facility] (DEFAULT) [address] [place] [id number] PHOSPHATE, INORGANICon 01-24 Interpretation and review of laboratory results Abnormal [facility] Phosphate [Mass/Vol] 1.6 mg/dL Low 2.2 - 4 .6 mg/dL [facility] Phosphorous 1.6 mg/dL Low 2.2-4.6 [facility] Comment on above: Performed By: #### M FARHAN ALBRIGHT, IPB, LIPDR, HFP #### [facility] (DEFAULT) [address] [place] [address] Portable XR Chest Viewson RADIOLOGY RADIOLOGY [facility] Radiology Study observation (narrative) [facility] Portable XR Chest ViewsOrder ed By: Radhabrock Shine on 01-24-2022 [facility] Work Phone: SARS-COV-2 RAPIDon SARS-CoV-2 (COVID-19) RNA CHRIS+probe Ql (Unsp spec) Not detected Normal NOT DETECTED [facility] Comment on above: Order Comment: Use r yaz, foam, polyester or flocked swabs to collect a nasopharyngeal specimen. After collection, fold over the open end of the collection sleeve and seal with patient lab label, double bag in biohazard bag, and transport to the lab YULIA, no later than 60 minutes from collection. Collection must be done while wearing N-95 mask, eye protection, gown and gloves. Result Comment: [facility] CLINICAL LABORAT[facility] Negative results do not preclude SARS-CoV-2 infection and should not be used as the sole basis for treatment or other patient management decisions. Optimum specimen types and timing for peak viral levels during infections caused by SARS-CoV-2 has not been determined. The possibility of a false negative result should especially be considered if the patient's recent exposures or clinical presentation suggest that SARS-CoV-2 infection is probable, and diagnostic tests for other causes of illness (e.g., other respiratory illness) are negative. Collection of a new specimen and re-testing may be necessary if the patient is critically ill or clinically deteriorating. This test was performed using isothermal nucleic acid amplification technology for the qualitative detection of SARS-CoV-2 nucleic acid. The test has been authorized by the FDA under an emergency use authorization for use by authorized laboratories. Performed By: #### L [email or web address] #### [facility] (DEFAULT) [address] [place] [address] SARS-CoV-2 (COVID-19) RNA NA A+probe Ql (Unsp spec)Ordered By: Beverly Mcwilliams on 01-24-2022 Interpretation and review of laboratory results Normal [facility] SARS-CoV-2 (COVID-19) RdRp gene CHRIS+probe Ql (Resp) Not detected NOT DETECTED [facility] URINALYSIS REFLEX TO CULTURE PERFORMABLEon 01-24-2022 Appearance (U) Clear Normal Clear [facility] Comment on above: Order Comment: Use r yaz, foam, polyester or flocked swabs to collect a nasopharyngeal specimen. After collection, fold over the open end of the collection sleeve and seal with patient lab label, double bag in biohazard bag, and transport to the lab YULIA, no later than 60 minutes from collection. Collection must be done while wearing N-95 mask, eye protection, gown and gloves. Performed By: #### L [email or web address] #### [facility] (DEFAULT) [address] [address] Bacteria ABSENT Normal ABSENT [facility] Comment on above: Order Comment: Use r yaz, foam, polyester or flocked swabs to collect a nasopharyngeal specimen. After collection, fold over the open end of the collection sleeve and seal with patient lab label, double bag in biohazard bag, and transport to the lab YULIA, no later than 60 minutes from collection. Collection must be done while wearing N-95 mask, eye protection, gown and gloves. Performed By: #### L [email or web address] #### [facility] (DEFAULT) [address] [address] Blood Urine Small Abnormal Negative [facility] Comment on above: Order Comment: Use r yaz, foam, polyester or flocked swabs to collect a nasopharyngeal specimen. After collection, fold over the open end of the collection sleeve and seal with patient lab label, double bag in biohazard bag, and transport to the lab YULIA, no later than 60 minutes from collection. Collection must be done while wearing N-95 mask, eye protection, gown and gloves. Performed By: #### L [email or web address] #### [facility] (DEFAULT) [address] [address] Color (U) Yellow Normal Yellow [facility] Comment on above: Order Comment: Use r yaz, foam, polyester or flocked swabs to collect a nasopharyngeal specimen. After collection, fold over the open end of the collection sleeve and seal with patient lab label, double bag in biohazard bag, and transport to the lab YULIA, no later than 60 minutes from collection. Collection must be done while wearing N-95 mask, eye protection, gown and gloves. Performed By: #### L [email or web address] #### [facility] (DEFAULT) [address] [address] Glucose Ql (U) Negative Normal Negative [facility] Comment on above: Order Comment: Use r yaz, foam, polyester or flocked swabs to collect a nasopharyngeal specimen. After collection, fold over the open end of the collection sleeve and seal with patient lab label, double bag in biohazard bag, and transport to the lab YULIA, no later than 60 minutes from collection. Collection must be done while wearing N-95 mask, eye protection, gown and gloves. Performed By: #### L [email or web address] #### [facility] (DEFAULT) [address] [address] Ketones Ql (U) Negative Normal Negative [facility] Comment on above: Order Comment: Use r yaz, foam, polyester or flocked swabs to collect a nasopharyngeal specimen. After collection, fold over the open end of the collection sleeve and seal with patient lab label, double bag in biohazard bag, and transport to the lab YULIA, no later than 60 minutes from collection. Collection must be done while wearing N-95 mask, eye protection, gown and gloves. Performed By: #### L [email or web address] #### [facility] (DEFAULT) [address] [address] Leukocyte esterase Test strip Ql (U) Trace Abnormal Negative [facility] Comment on above: Order Comment: Use r yaz, foam, polyester or flocked swabs to collect a nasopharyngeal specimen. After collection, fold over the open end of the collection sleeve and seal with patient lab label, double bag in biohazard bag, and transport to the lab YULIA, no later than 60 minutes from collection. Collection must be done while wearing N-95 mask, eye protection, gown and gloves. Performed By: #### L [email or web address] #### [facility] (DEFAULT) [address] [address] Nitrites Urine Negative Normal Negative [facility] Comment on above: Order Comment: Use r yaz, foam, polyester or flocked swabs to collect a nasopharyngeal specimen. After collection, fold over the open end of the collection sleeve and seal with patient lab label, double bag in biohazard bag, and transport to the lab YULIA, no later than 60 minutes from collection. Collection must be done while wearing N-95 mask, eye protection, gown and gloves. Performed By: #### L [email or web address] #### [facility] (DEFAULT) [address] [address] pH (U) 6.0 [pH] Normal 5.0-7.0 [facility] Comment on above: Order Comment: Use r yaz, foam, polyester or flocked swabs to collect a nasopharyngeal specimen. After collection, fold over the open end of the collection sleeve and seal with patient lab label, double bag in biohazard bag, and transport to the lab YULIA, no later than 60 minutes from collection. Collection must be done while wearing N-95 mask, eye protection, gown and gloves. Performed By: #### L [email or web address] #### [facility] (DEFAULT) [address] [address] Protein Urine Negative Normal Negative [facility] Comment on above: Order Comment: Use r yaz, foam, polyester or flocked swabs to collect a nasopharyngeal specimen. After collection, fold over the open end of the collection sleeve and seal with patient lab label, double bag in biohazard bag, and transport to the lab YULIA, no later than 60 minutes from collection. Collection must be done while wearing N-95 mask, eye protection, gown and gloves. Performed By: #### L [email or web address] #### [facility] (DEFAULT) [address] [place] [address] RBC Urine 3-5 Abnormal 0-2 [facility] Comment on above: Order Comment: Use r yaz, foam, polyester or flocked swabs to collect a nasopharyngeal specimen. After collection, fold over the open end of the collection sleeve and seal with patient lab label, double bag in biohazard bag, and transport to the lab YULIA, no later than 60 minutes from collection. Collection must be done while wearing N-95 mask, eye protection, gown and gloves. Performed By: #### L [email or web address] #### [facility] (DEFAULT) [address] [address] Specific [place] Urine 1.013 Normal 1.001-1.035 O [facility] Comment on above: Order Comment: Use r yaz, foam, polyester or flocked swabs to collect a nasopharyngeal specimen. After collection, fold over the open end of the collection sleeve and seal with patient lab label, double bag in biohazard bag, and transport to the lab YULIA, no later than 60 minutes from collection. Collection must be done while wearing N-95 mask, eye protection, gown and gloves. Performed By: #### L [email or web address] #### [facility] (DEFAULT) [address] [address] Squamous/Epithelial Cells 1/hpf = 1+ Normal 1/hpf = 1+, 2-5/hpf = 2+, 0/hpf = 0+, ABSENT [facility] Comment on above: Order Comment: Use r yaz, foam, polyester or flocked swabs to collect a nasopharyngeal specimen. After collection, fold over the open end of the collection sleeve and seal with patient lab label, double bag in biohazard bag, and transport to the lab YULIA, no later than 60 minutes from collection. Collection must be done while wearing N-95 mask, eye protection, gown and gloves. Performed By: #### L [id number] #### [facility] (DEFAULT) [address] [address] Urobilinogen Urine 0.2 E.U./dL Normal 0.2 E.U/d L, 1.0 E.U/dL [facility] Comment on above: Order Comment: Use r yaz, foam, polyester or flocked swabs to collect a nasopharyngeal specimen. After collection, fold over the open end of the collection sleeve and seal with patient lab label, double bag in biohazard bag, and transport to the lab YULIA, no later than 60 minutes from collection. Collection must be done while wearing N-95 mask, eye protection, gown and gloves. Performed By: #### L [email or web address] #### [facility] (DEFAULT) [address] [place] [address] WBC Urine 0-5 Normal 0-5 [facility] Comment on above: Order Comment: Use r yaz, foam, polyester or flocked swabs to collect a nasopharyngeal specimen. After collection, fold over the open end of the collection sleeve and seal with patient lab label, double bag in biohazard bag, and transport to the lab YULIA, no later than 60 minutes from collection. Collection must be done while wearing N-95 mask, eye protection, gown and gloves. Performed By: #### L [id number] #### [facility] (DEFAULT) [address] [place] [address] Appearance (U) Clear Clear [facility] Bacteria LM Ql (Urine sed) ABSENT ABSENT [facility] Color (U) Yellow Yellow [facility] Epithelial cells.squamous LM Ql (Urine sed) 1/hpf = 1+ 1/hpf = 1+, 2-5/hpf = 2+, 0/hpf = 0+, ABSENT [facility] Glucose Test strip (U) [Mass/Vol] [facility] and review of laboratory results Abnormal [facility] Ketones (U) [Mass/Vol] Negative Negative [facility] Leukocyte esterase Test strip Ql (U) Trace Abnormal Negative [facility] Nitrite Ql (U) Negative Negative [facility] pH (U) 6.0 [pH] 5.0 - 7.0 [facility] Protein (U) [Mass/Vol] Negative Negative [facility] RBC (U) [#/Vol] Small Abnormal Negative [facility] RBC LM.HPF (Urine sed) [#/Area] 3-5 Abnormal [facility] Specific gravity (U) [Rel density] 1.013 1.001 - 1.035 [facility] Urobilinogen (U) [Mass/Vol] 0.2 E.U./dL 0.2 E.U/dL, 1.0 E.U/dL [facility] WBC LM.HPF (Urine sed) [#/Area] 0-5 [facility] XR CHEST PORTABLEon 01-25-20 XR CHEST PORTABLE EXAM: XR CHEST PORTABLE, 01/24/2022 11:24 AM COMPARISON: January 22, 2022 CLINICAL INDICATIONS: tachypnea, fever RELEVANT CLINICAL HISTORY: FINDINGS: (Adequate technique) Implanted Devices: None Thorax: No acute findings in the chest. IMPRESSION: No acute cardiopulmonary disease Normal [facility] B-TYPE NATRIURETIC PEPTIDE ( BRAIN)on 01-23-2022 Natriuretic peptide B (Bld) [Mass/Vol] 195 pg/mL High 0-100 [facility] Comment on above: Performed By: #### M GO, CHM7, IPB, LIPDR, HFP #### [facility] (DEFAULT) [address] [place] [address] BLOOD CULTUREon 01-23-2022 Bacteria identified Cx Nom (Unsp spec) NO GROWTH DAY 5 OF 5 Normal [facility] Comment on above: Order Comment: Use r yaz, foam, polyester or flocked swabs to collect a nasopharyngeal specimen. After collection, fold over the open end of the collection sleeve and seal with patient lab label, double bag in biohazard bag, and transport to the lab YULIA, no later than 60 minutes from collection. Collection must be done while wearing N-95 mask, eye protection, gown and gloves. Performed By: #### L [email or web address] #### [facility] (DEFAULT) [address] [place] [address] CBC,PLATELETSon 01-23-2022 Erythrocyte distribution width (RBC) [Ratio] 13.6 % 10.8 - 14.9 % [facility] Hematocrit (Bld) [Volume fraction] 31.0 % Low 34.9 - 44.3 % [facility] Hemoglobin (Bld) [Mass/Vol] 10.3 g/dL Low 11.4 - 15.2 g/dL [facility] Interpretation and review of laboratory results Abnormal [facility] MCH (RBC) [Entitic mass] 30.6 pg 25.9 - 33.9 pg [facility] MCHC (RBC) [Mass/Vol] 33.2 g/dL 31.4 - 35.9 g/dL [facility] MCV (RBC) [Entitic vol] 93.4 fL 79.6 - 97.7 fL [facility] Platelet mean volume (Bld) [Entitic vol] 11.1 fL 8.5 - 12.2 fL [facility] Platelets (Bld) [#/Vol] 175 10*3/uL 150 - 393 K/uL [facility] RBC (Bld) [#/Vol] 3.32 10*6/uL Low [facility] WBC (Bld) [#/Vol] 10.64 10*3/uL 3.99 - 11 .19 K/uL [facility] MCV (RBC) [Entitic vol] 93.4 fL Normal 79.6-97.7 [facility] Comment on above: Performed By: #### M JOSE RAMON, CHM7, IPB, LIPDR, HFP #### [facility] (DEFAULT) [address] [place] [address] Mean Cell Hgb 30.6 pg Normal 25.9-33.9 [facility] Comment on above: Performed By: #### M JOSE RAMON, CHM7, IPB, LIPDR, HFP #### [facility] (DEFAULT) [address] [place] [address] Mean Cell Hgb Conc 33.2 g/dL Normal 31.4-35.9 [facility] Comment on above: Performed By: #### M GO, CHM7, IPB, LIPDR, HFP #### [facility] (DEFAULT) [address] [place] [address] Platelet mean volume (Bld) [Entitic vol] 11.1 fL Normal 8.5-12.2 [facility] Comment on above: Performed By: #### M GO, CHM7, IPB, LIPDR, HFP #### [facility] (DEFAULT) [address] [place] [address] Platelets (Bld) [#/Vol] 175 10*3/uL Normal 150-393 [facility] Comment on above: Performed By: #### M GO, CHM7, IPB, LIPDR, HFP #### [facility] (DEFAULT) [address] [place] [address] RBC (Bld) [#/Vol] 3.32 10*6/uL Low 3.91-5.04 [facility] Comment on above: Performed By: #### M GO, CHM7, IPB, LIPDR, HFP #### [facility] (DEFAULT) [address] [place] [address] RBC Distribution 13.6 % Normal 10.8-14.9 [facility] Comment on above: Performed By: #### M GO, CHM7, IPB, LIPDR, HFP #### [facility] (DEFAULT) [address] [place] [address] WBC (Bld) [#/Vol] 10.64 10*3/uL Normal 3.99-11.19 [facility] Comment on above: Performed By: #### M GO, CHM7, IPB, LIPDR, HFP #### [facility] (DEFAULT) [address] [place] [address] Hematocrit (Bld) [Volume fraction] 28.6 % Low 34.9-44.3 [facility] Comment on above: Performed By: #### M GO, CHM7, IPB, LIPDR, HFP #### [facility] (DEFAULT) [address] [place] [address] Hemoglobin (Bld) [Mass/Vol] 9.1 g/dL Low 11.4-15.2 [facility] Comment on above: Performed By: #### M GO, CHM7, IPB, LIPDR, HFP #### [facility] (DEFAULT) [address] [place] [address] MCV (RBC) [Entitic vol] 97.3 fL Normal 79.6-97.7 [facility] Comment on above: Performed By: #### M GO, CHM7, IPB, LIPDR, HFP #### [facility] (DEFAULT) [address] [place] [address] Mean Cell Hgb 31.0 pg Normal 25.9-33.9 [facility] Comment on above: Performed By: #### M GO, CHM7, IPB, LIPDR, HFP #### [facility] (DEFAULT) [address] [place] [address] Mean Cell Hgb Conc 31.8 g/dL Normal 31.4-35.9 [facility] Comment on above: Performed By: #### M GO, CHM7, IPB, LIPDR, HFP #### [facility] (DEFAULT) [address] [place] [address] Platelet mean volume (Bld) [Entitic vol] 10.7 fL Normal 8.5-12.2 [facility] Comment on above: Performed By: #### M GO, CHM7, IPB, LIPDR, HFP #### [facility] (DEFAULT) [address] [place] [address] Platelets (Bld) [#/Vol] 102 10*3/uL Low 150-393 [facility] Comment on above: Performed By: #### M GO, CHM7, IPB, LIPDR, HFP #### [facility] (DEFAULT) [address] [place] [address] RBC (Bld) [#/Vol] 2.94 10*6/uL Low 3.91-5.04 [facility] Comment on above: Performed By: #### M GO, CHM7, IPB, LIPDR, HFP #### [facility] (DEFAULT) [address] [place] [address] RBC Distribution 13.8 % Normal 10.8-14.9 [facility] Comment on above: Performed By: #### M GO, CHM7, IPB, LIPDR, HFP #### [facility] (DEFAULT) [address] [place] [address] WBC (Bld) [#/Vol] 9.75 10*3/uL Normal 3.99-11.19 [facility] Comment on above: Performed By: #### M GO, CHM7, IPB, LIPDR, HFP #### [facility] (DEFAULT) [address] [place] [address] Erythrocyte distribution width (RBC) [Ratio] 13.8 % 10.8 - 14.9 % [facility] Hematocrit (Bld) [Volume fraction] 28.6 % Low 34.9 - 44.3 % [facility] Hemoglobin (Bld) [Mass/Vol] 9.1 g/dL Low 11.4 - 15.2 g/dL [facility] Interpretation and review of laboratory results Abnormal [facility] MCH (RBC) [Entitic mass] 31.0 pg 25.9 - 33.9 pg [facility] MCHC (RBC) [Mass/Vol] 31.8 g/dL 31.4 - 35.9 g/dL [facility] MCV (RBC) [Entitic vol] 97.3 fL 79.6 - 97.7 fL [facility] Platelet mean volume (Bld) [Entitic vol] 10.7 fL 8.5 - 12.2 fL [facility] Platelets (Bld) [#/Vol] 102 10*3/uL Low 150 - 393 K/uL [facility] RBC (Bld) [#/Vol] 2.94 10*6/uL Low [facility] WBC (Bld) [#/Vol] 9.75 10*3/uL 3.99 - 11. 19 K/uL [facility] CHEM 7 (LYTES,BUN,CREA,GLUC) on 01-23-2022 Anion gap [Moles/Vol] 17 mmol/L 7 - 17 mmol/L [facility] Chloride [Moles/Vol] 108 mmol/L 98 - 10 8 mmol/L [facility] CO2 [Moles/Vol] 20 mmol/L Low 21 - 31 mmol/L [facility] Creatinine [Mass/Vol] 0.88 mg/dL 0.50 - 1.20 mg/dL [facility] GFR/1.73 sq M.predicted CKD-EPI (S/P/Bld) [Vol rate/Area] 67 - PINF [facility] Glucose [Mass/Vol] 112 mg/dL High 70 - 99 mg/dL [facility] Interpretation and review of laboratory results Abnormal [facility] Osmolality Calc [Osmolality] 298 [facility] Potassium [Moles/Vol] 4.6 mmol/L 3.5 - 5.0 mmol/L [facility] Sodium [Moles/Vol] 140 mmol/L 135 - 145 mmol/L [facility] Urea nitrogen [Mass/Vol] 23 mg/dL 7 - 25 mg/dL [facility] Urea nitrogen/Creatinine [Mass ratio] 26 mg/mg [facility] Anion gap [Moles/Vol] 17 mmol/L Normal 7-17 [facility] Comment on above: Performed By: #### M ESME ALBRIGHTM7, IPB, LIPDR, HFP #### [facility] (DEFAULT) [address] [address] Chloride [Moles/Vol] 108 mmol/L Normal 98-108 [facility] Comment on above: Performed By: #### M JOSE RAMON CHM7, IPB, LIPDR, HFP #### [facility] (DEFAULT) [address] [place] [address] CO2 [Moles/Vol] 20 mmol/L Low 21-31 [facility] Comment on above: Performed By: #### M GO, CHM7, IPB, LIPDR, HFP #### [facility] (DEFAULT) [address] [place] [address]99 Creatinine [Mass/Vol] 0.88 mg/dL Normal 0.50-1.20 [facility] Comment on above: Performed By: #### M GO, CHM7, IPB, LIPDR, HFP #### [facility] (DEFAULT) [address] [place] [address]2018 GFR/1.73 sq M.predicted among non-blacks MDRD (S/P/Bld) [Vol rate/Area] 67 mL/min/{1.73_m2} Normal >=60 [facility] Comment on above: Result Comment: Repo rted eGFR is based on the CKD-EPI 2020 equation using creatinine, age, and sex. Performed By: #### M GO, CHM7, IPB, LIPDR, HFP #### [facility] (DEFAULT) [address] [place] [address] Glucose [Mass/Vol] 112 mg/dL High 70-99 [facility] Comment on above: Performed By: #### M GO, CHM7, IPB, LIPDR, HFP #### [facility] (DEFAULT) [address] [place] [address] Osmolality [Osmolality] 298 mosm/kg Normal 278-305 [facility] Comment on above: Performed By: #### M GO, CHM7, IPB, LIPDR, HFP #### [facility] (DEFAULT) [address] [place] [address]300 Potassium [Moles/Vol] 4.6 mmol/L Normal 3.5-5.0 [facility] Comment on above: Performed By: #### M GO, CHM7, IPB, LIPDR, HFP #### [facility] (DEFAULT) [address] [place] [address] Sodium [Moles/Vol] 140 mmol/L Normal 135-145 [facility] Comment on above: Performed By: #### M GO, CHM7, IPB, LIPDR, HFP #### [facility] (DEFAULT) [address] [place] [address] Urea nitrogen [Mass/Vol] 23 mg/dL Normal 7-25 [facility] Comment on above: Performed By: #### M GO, CHM7, IPB, LIPDR, HFP #### [facility] (DEFAULT) [address] [place] [address] Urea nitrogen/Creatinine [Mass ratio] 26 mg/mg Normal [facility] Comment on above: Performed By: #### M GO, CHM7, IPB, LIPDR, HFP #### [facility] (DEFAULT) [address] [place] [address] CONTINUOUS CARDIAC MONITORIN G STRIPon 01-23-2022 [facility] ELECTRONIC DIFFon 01-23-2022 Basophils (Bld) [#/Vol] K/uL 0.00 - 0.15 K/uL [facility] Basophils/100 WBC (Bld) 0.3 % [facility] Eosinophils (Bld) [#/Vol] 0.26 10*3/uL 0.00 - 0.42 K/uL [facility] Eosinophils/100 WBC (Bld) 2.4 % [facility] Immature granulocytes (Bld) [#/Vol] K/uL NINF - 0.08 K/uL [facility] Immature granulocytes/100 WBC (Bld) 0.3 % [facility] Interpretation and review of laboratory results Abnormal [facility] Lymphocytes (Bld) [#/Vol] 1.69 10*3/uL 1.16 - 3.51 K/uL [facility] Lymphocytes/100 WBC (Bld) 15.9 % [facility] Monocytes (Bld) [#/Vol] 0.77 10*3/uL 0.22 - 0.87 K/uL [facility] Monocytes/100 WBC (Bld) 7.2 % [facility] Neutrophils (Bld) [#/Vol] 7.86 10*3/uL High 1.64 - 7.28 K/uL [facility] Nucleated RBC/100 WBC (Bld) [Ratio] 0.0 % NINF [facility] Segmented neutrophils/100 WBC (Bld) 73.9 % [facility] Abs Baso Auto < Normal 0.00-0.15 [facility] Comment on above: Performed By: #### M GO, CHM7, IPB, LIPDR, HFP #### [facility] (DEFAULT) [address] [place] [address] 74872 Basophils/100 WBC (Bld) 0.3 % Normal [facility] Comment on above: Performed By: #### M GO, CHM7, IPB, LIPDR, HFP #### [facility] (DEFAULT) [address] [place] [address] 89975 Eosinophils (Bld) [#/Vol] 0.26 10*3/uL Normal 0.00-0.42 [facility] Comment on above: Performed By: #### M GO, CHM7, IPB, LIPDR, HFP #### [facility] (DEFAULT) [address] [place] [address] 45210 Eosinophils/100 WBC (Bld) 2.4 % Normal [facility] Comment on above: Performed By: #### M GO, CHM7, IPB, LIPDR, HFP #### [facility] (DEFAULT) [address] [place] [address] 67387 Immature Grans % 0.3 % Normal [facility] Comment on above: Performed By: #### M GO, CHM7, IPB, LIPDR, HFP #### [facility] (DEFAULT) [address] [place] [address] 56958 Immature Grans Absolute < Normal <=0.08 [facility] Comment on above: Performed By: #### M GO, CHM7, IPB, LIPDR, HFP #### [facility] (DEFAULT) [address] [place] [address] 28002 Lymphocytes (Bld) [#/Vol] 1.69 10*3/uL Normal 1.16-3.51 [facility] Comment on above: Performed By: #### M GO, CHM7, IPB, LIPDR, HFP #### [facility] (DEFAULT) [address] [place] [address] 61219 Lymphocytes/100 WBC (Bld) 15.9 % Normal [facility] Comment on above: Performed By: #### M GO, CHM7, IPB, LIPDR, HFP #### [facility] (DEFAULT) [address] [place] [address] 19128 Monocytes (Bld) [#/Vol] 0.77 10*3/uL Normal 0.22-0.87 [facility] Comment on above: Performed By: #### M GO, CHM7, IPB, LIPDR, HFP #### [facility] (DEFAULT) [address] [place] [address] 19633 Monocytes/100 WBC (Bld) 7.2 % Normal [facility] Comment on above: Performed By: #### M GO, CHM7, IPB, LIPDR, HFP #### [facility] (DEFAULT) [address] [place] [address] 85996 Nucleated RBC 0.0 /100 WBC Normal <=0.2 [facility] Comment on above: Performed By: #### M GO, CHM7, IPB, LIPDR, HFP #### [facility] (DEFAULT) [address] [place] [address] 50006 Segs + Bands Auto 73.9 % Normal [facility] Comment on above: Performed By: #### M GO, CHM7, IPB, LIPDR, HFP #### [facility] (DEFAULT) [address] [place] [address] 61744 Segs + Bands,Absolute Auto 7.86 K/uL High 1.64-7.28 [facility] Comment on above: Performed By: #### M JOSE RAMON, CHM7, IPB, LIPDR, HFP #### [facility] (DEFAULT) [address] [place] [address] 61093 GLUCOSE POCon 01-23-2022 Glucose [Mass/Vol] 154 mg/dL High 70 - 99 mg/dL [facility] Interpretation and review of laboratory results Abnormal [facility] POC Sample Type [facility] HEMOGLOBIN & HEMATOCRITon Hematocrit (Bld) [Volume fraction] 31.0 % Low 34.9-44.3 [facility] Comment on above: Performed By: #### M JOSE RAMON CHM7, IPB, LIPDR, HFP #### [facility] (DEFAULT) [address] [place] [address] 82405 Hemoglobin (Bld) [Mass/Vol] 10.3 g/dL Low 11.4-15.2 [facility] Comment on above: Performed By: #### M JOSE RAMON, CHM7, IPB, LIPDR, HFP #### [facility] (DEFAULT) [address] [place] [address] 47648 Hematocrit (Bld) [Volume fraction] 31.0 % Low 34.9 - 44.3 % [facility] Hemoglobin (Bld) [Mass/Vol] 10.3 g/dL Low 11.4 - 15.2 g/dL [facility] Interpretation and review of laboratory results Abnormal [facility] IONIZED CALCIUM, WHOLE BLOOD on 01-23-2022 ICA 3.80 mg/dL Low 4.60-5.30 [facility] Comment on above: Performed By: #### M JOSE RAMON, CHM7, IPB, LIPDR, HFP #### [facility] (DEFAULT) [address] [place] [address] 76915 IONIZED CALCIUM, WHOLE BLOOD Ordered By: Kang Grayson on 01-23-2022 Calcium.ionized (Bld) [Moles/Vol] 3.80 mg/dL Low 4.60 - 5.30 mg/dL [facility] Interpretation and review of laboratory results Abnormal [facility] MAGNESIUMon 01-23-2022 Magnesium [Mass/Vol] 2.1 mg/dL Normal 1.6-2.6 [facility] Comment on above: Performed By: #### M JOSE RAMON, ESMEM7, IPB, LIPDR, HFP #### [facility] (DEFAULT) [address] [place] [address] 36544 Magnesium [Mass/Vol] 2.1 mg/dL 1.6 - 2 .6 mg/dL [facility] No Panel Informationon 01-23 Interpretation and review of laboratory results Normal [facility] PHOSPHATE, INORGANICon 01-23 Phosphorous 3.9 mg/dL Normal 2.2-4.6 [facility] Comment on above: Performed By: #### Sesar ALBRIGHT CHM7, IPB, LIPDR, HFP #### [facility] (DEFAULT) [address] [place] [address] 71551 Phosphate [Mass/Vol] 3.9 mg/dL 2.2 - 4 .6 mg/dL [facility] PLATELET COUNTon 01-23-2022 Platelet mean volume (Bld) [Entitic vol] 10.8 fL Normal 8.5-12.2 [facility] Comment on above: Performed By: #### Sesar ALBRIGHT CHM7, IPB, LIPDR, HFP #### [facility] (DEFAULT) [address] [place] [address] 87058 Platelets (Bld) [#/Vol] 190 10*3/uL Normal 150-393 [facility] Comment on above: Performed By: #### Sesar ALBRIGHT CHM7, IPB, LIPDR, HFP #### [facility] (DEFAULT) [address] [place] [address] 37198 Interpretation and review of laboratory results Normal [facility] Platelet mean volume (Bld) [Entitic vol] 10.8 fL 8.5 - 12.2 fL [facility] Platelets (Bld) [#/Vol] 190 10*3/uL 150 - 393 K/uL [facility] VON WILLEBRAND FACTOR AGOrde red By: Yajaira Talley on 01-23-2022 Interpretation and review of laboratory results Abnormal [facility] vWf Ag actual/normal IA (PPP) [Relative mass conc] 373 % High 50 - 180 % [facility] BLOOD CULTUREon 01-22-2022 Bacteria identified Cx Nom (Unsp spec) NO GROWTH DAY 5 OF 5 Normal [facility] Comment on above: Order Comment: Use r yaz, foam, polyester or flocked swabs to collect a nasopharyngeal specimen. After collection, fold over the open end of the collection sleeve and seal with patient lab label, double bag in biohazard bag, and transport to the lab YULIA, no later than 60 minutes from collection. Collection must be done while wearing N-95 mask, eye protection, gown and gloves. Performed By: #### L [email or web address] #### [facility] (DEFAULT) [address] [place] [address] 43945 CBC,PLATELETSon 01-22-2022 Hematocrit (Bld) [Volume fraction] 35.1 % Normal 34.9-44.3 [facility] Comment on above: Performed By: #### M GO, CHM7, IPB, LIPDR, HFP #### [facility] (DEFAULT) [address] [place] [address] 93044 Hemoglobin (Bld) [Mass/Vol] 10.7 g/dL Low 11.4-15.2 [facility] Comment on above: Performed By: #### M GO, CHM7, IPB, LIPDR, HFP #### [facility] (DEFAULT) [address] [place] [address] 64902 MCV (RBC) [Entitic vol] 100.6 fL High 79.6-97.7 [facility] Comment on above: Result Comment: Resu lts inconsistent with previous results Performed By: #### M GO, CHM7, IPB, LIPDR, HFP #### [facility] (DEFAULT) [address] [place] [address] 12801 Mean Cell Hgb 30.7 pg Normal 25.9-33.9 [facility] Comment on above: Performed By: #### M GO, CHM7, IPB, LIPDR, HFP #### U [facility] (DEFAULT) [address] [place] [address]344 Mean Cell Hgb Conc 30.5 g/dL Low 31.4-35.9 [facility] Comment on above: Performed By: #### M GO, CHM7, IPB, LIPDR, HFP #### U [facility] (DEFAULT) [address] [place] [address] 10786 Platelet mean volume (Bld) [Entitic vol] 10.1 fL Normal 8.5-12.2 [facility] Comment on above: Performed By: #### M GO, CHM7, IPB, LIPDR, HFP #### U [facility] (DEFAULT) [address] [place] [address] 38391 Platelets (Bld) [#/Vol] 181 10*3/uL Normal 150-393 [facility] Comment on above: Performed By: #### M GO, CHM7, IPB, LIPDR, HFP #### U [facility] (DEFAULT) [address] [place] [address] 60325 RBC (Bld) [#/Vol] 3.49 10*6/uL Low 3.91-5.04 [facility] Comment on above: Performed By: #### M GO, CHM7, IPB, LIPDR, HFP #### U [facility] (DEFAULT) [address] [place] [address] 35795 RBC Distribution 13.9 % Normal 10.8-14.9 [facility] Comment on above: Performed By: #### M ESME ALBRIGHTMJames, IPB, LIPDR, HFP #### [facility] (DEFAULT) [address] [place] [address] WBC (Bld) [#/Vol] 12.17 10*3/uL High 3.99-11.19 [facility] Comment on above: Performed By: #### M FARHAN ALBRIGHT, IPB, LIPDR, HFP #### [facility] (DEFAULT) [address] [place] [address] Erythrocyte distribution width (RBC) [Ratio] 13.9 % 10.8 - 14.9 % [facility] Hematocrit (Bld) [Volume fraction] 35.1 % 34.9 - 44.3 % [facility] Hemoglobin (Bld) [Mass/Vol] 10.7 g/dL Low 11.4 - 15.2 g/dL [facility] Interpretation and review of laboratory results Abnormal [facility] MCH (RBC) [Entitic mass] 30.7 pg 25.9 - 33.9 pg [facility] MCHC (RBC) [Mass/Vol] 30.5 g/dL Low 31.4 - 35.9 g/dL [facility] MCV (RBC) [Entitic vol] 100.6 fL High 79.6 - 97.7 fL [facility] Platelet mean volume (Bld) [Entitic vol] 10.1 fL 8.5 - 12.2 fL [facility] Platelets (Bld) [#/Vol] 181 10*3/uL 150 - 393 K/uL [facility] RBC (Bld) [#/Vol] 3.49 10*6/uL Low [facility] WBC (Bld) [#/Vol] 12.17 10*3/uL High 3.99 - 11 .19 K/uL [facility] CHEM 7 (LYTES,BUN,CREA,GLUC) on 01-22-2022 Anion gap [Moles/Vol] 11 mmol/L Normal 7-17 [facility] Comment on above: Performed By: #### M GO, CHM7, IPB, LIPDR, HFP #### U [facility] (DEFAULT) [address] [place] [address] 21773 Chloride [Moles/Vol] 106 mmol/L Normal 98-108 [facility] Comment on above: Performed By: #### M GO, CHM7, IPB, LIPDR, HFP #### [facility] (DEFAULT) [address] [place] [address] 69814 CO2 [Moles/Vol] 24 mmol/L Normal 21-31 [facility] Comment on above: Performed By: #### M GO, CHM7, IPB, LIPDR, HFP #### U [facility] (DEFAULT) [address] [place] [address] 79031 Creatinine [Mass/Vol] 0.86 mg/dL Normal 0.50-1.20 [facility] Comment on above: Performed By: #### M GO, CHM7, IPB, LIPDR, HFP #### U [facility] (DEFAULT) [address] [place] [address] 72458 GFR/1.73 sq M.predicted among non-blacks MDRD (S/P/Bld) [Vol rate/Area] 69 mL/min/{1.73_m2} Normal >=60 [facility] Comment on above: Result Comment: Repo rted eGFR is based on the CKD-EPI 2020 equation using creatinine, age, and sex. Performed By: #### M GO, CHM7, IPB, LIPDR, HFP #### U [facility] (DEFAULT) [address] [place] [address] 39367 Glucose [Mass/Vol] 94 mg/dL Normal 70-99 [facility] Comment on above: Performed By: #### M GO, CHM7, IPB, LIPDR, HFP #### U [facility] (DEFAULT) [address] [place] [address] Osmolality [Osmolality] 291 mosm/kg Normal 278-305 [facility] Comment on above: Performed By: #### M GO, CHM7, IPB, LIPDR, HFP #### U [facility] (DEFAULT) [address] [place] [address] 10869 Potassium [Moles/Vol] 4.1 mmol/L Normal 3.5-5.0 [facility] Comment on above: Performed By: #### M GO, CHM7, IPB, LIPDR, HFP #### U [facility] (DEFAULT) [address] [place] [address] 40611 Sodium [Moles/Vol] 137 mmol/L Normal 135-145 [facility] Comment on above: Performed By: #### M GO, CHM7, IPB, LIPDR, HFP #### U [facility] (DEFAULT) [address] [place] [address] 36675 Urea nitrogen [Mass/Vol] 24 mg/dL Normal 7-25 [facility] Comment on above: Performed By: #### M GO, CHM7, IPB, LIPDR, HFP #### U [facility] (DEFAULT) [address] [place] [address] 54369 Urea nitrogen/Creatinine [Mass ratio] 28 mg/mg Normal [facility] Comment on above: Performed By: #### M GO, CHM7, IPB, LIPDR, HFP #### [facility] (DEFAULT) [address] [place] [address] 30687 Anion gap [Moles/Vol] 11 mmol/L 7 - 17 mmol/L [facility] Chloride [Moles/Vol] 106 mmol/L 98 - 10 8 mmol/L [facility] CO2 [Moles/Vol] 24 mmol/L 21 - 31 mmol/L [facility] Creatinine [Mass/Vol] 0.86 mg/dL 0.50 - 1.20 mg/dL [facility] GFR/1.73 sq M.predicted CKD-EPI (S/P/Bld) [Vol rate/Area] 69 - PINF [facility] Glucose [Mass/Vol] 94 mg/dL 70 - 99 mg/dL [facility] Osmolality Calc [facility]olality] [facility] Pot[facility] [Moles/Vol] 4.1 mmol/L 3.5 - 5.0 mmol/L [facility] Sodium [Moles/Vol] 137 mmol/L 135 - 145 mmol/L [facility] Urea nitrogen [Mass/Vol] 24 mg/dL 7 - 25 mg/dL [facility] Urea nitrogen/Creatinine [Mass ratio] 28 mg/mg [facility] CONTINUOUS CARDIAC MONITORIN G STRIPon 01-22-[address] [facility] [address] HEAD WITHOUT CONTRASTon 1 03-24-2021 CT HEAD WITHOUT CONTRAST EXAM: CT HEAD WITHOUT CONTRAST, 01/22/2022 1:30 PM COMPARISON: Same day CT head CLINICAL INDICATIONS: 81 years Female Hydrocephalus; increase in NIH; TECHNIQUE: A series of transaxial computerized tomographic images are obtained from base of skull to vertex without intravenous contrast. Axial whole-head and thin section posterior fossa slices are provided. Reformats: Sagittal and coronal. 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 Persistent adjacent mass effect with stable leftward midline shift of 2 mm. Stable effacement of the right lateral ventricle frontal horn. 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 Scattered white matter hypodensities are nonspecific, although suggestive of chronic microvascular ischemic disease. Calvarium and skull base appear intact. Visualized sinuses show no air fluid levels. IMPRESSION: Stable exam when compared to same day head CT. Stable appearance of hemorrhagic infarct in the right basal ganglia and nonhemorrhagic infarct in the right medial temporal lobe in the right cerebellum. Stable mass effect on the right lateral ventricle and 2 mm leftward midline shift. I personally viewed and interpreted these images and I have reviewed and approved this report. Normal [facility] CT HEAD WITHOUT CONTRAST EXAM: CT HEAD WITHOUT CONTRAST, 01/22/2022 5:12 AM COMPARISON: January 20, 2022 CLINICAL INDICATIONS: 81 years Female Stroke, follow up; RELEVANT CLINICAL HISTORY: TECHNIQUE: A series of transaxial computerized tomographic images are obtained from base of skull to vertex without intravenous contrast. Axial whole-head and thin section posterior fossa slices are provided. Reformats: Sagittal and coronal. FINDINGS: Redemonstration of evolving infarcts in the right cerebellum, medial right temporal lobe and hemorrhagic infarct in the right basal ganglia. Persistent mass effect with midline shift. Effacement of the right lateral ventricle. Stable midline shift to the left of approximately 2 mm. Effacement of the frontal horn of the right lateral ventricle is again noted. Small region of gliosis bilateral frontal lobes lobe from remote insults. Scattered areas of low attenuation in the periventricular and subcortical white matter likely due to chronic microvascular disease. No extracerebral collection. Sellar and parasellar structures are unremarkable. Extracranial structures are unremarkable. IMPRESSION: Stable head CT when compared to the prior exam from January 20, 2022. Redemonstration of a hemorrhagic infarct in the right basal ganglia, nonhemorrhagic infarct in the right medial temporal lobe and the right cerebellum. Underlying mass effect on the right lateral ventricle with 2 mm midline shift to the left stable. Normal [facility] CT Head WO contraston 2021 RADIOLOGY RADIOLOGY [facility] Radiology Study observation (narrative) [facility] RADIOLOGY RADIOLOGY [facility] Radiology Study observation (narrative) [facility] CT Head WO contrastOrdered B y: Kate Melendrez on 01-22-2022 [facility] Work Phone: IONIZED CALCIUM, WHOLE BLOOD on 01-22-2022 ICA 4.41 mg/dL Low 4.60-5.30 [facility] Comment on above: Performed By: #### H [facility] #### [facility] (DEFAULT) [address] [place] [address] IONIZED CALCIUM, WHOLE BLOOD Ordered By: Mark Gonzalez on 01-22-2022 Calcium.ionized (Bld) [Moles/Vol] 4.41 mg/dL Low 4.60 - 5.30 mg/dL [facility] Interpretation and review of laboratory results Abnormal [facility] MAGNESIUMon 01-22-2022 Magnesium [Mass/Vol] 2.0 mg/dL Normal 1.6-2.6 [facility] Comment on above: Performed By: #### M JOSE RAMON, CHM7, IPB, LIPDR, HFP #### [facility] (DEFAULT) [address] [place] [address]606 Magnesium [Mass/Vol] 2.0 mg/dL 1.6 - 2 .6 mg/dL [facility] No Panel Informationon 01-22 [facility] Interpretation and review of laboratory results Normal [facility] PHOSPHATE, INORGANICon 01-22 Phosphorous 2.9 mg/dL Normal 2.2-4.6 [facility] Comment on above: Performed By: #### M JOSE RAMON, CHM7, IPB, LIPDR, HFP #### [facility] (DEFAULT) [address] [place] [address] 28612 Phosphate [Mass/Vol] 2.9 mg/dL 2.2 - 4 .6 mg/dL [facility] Portable XR Chest Viewson RADIOLOGY RADIOLOGY [facility] Radiology Study observation (narrative) [facility] Portable XR Chest ViewsOrder ed By: Irasema Arreola on 01-22-2022 [facility] Work Phone: URINALYSISon 01-22-2022 Appearance (U) Clear Normal Clear [facility] Comment on above: Order Comment: Use r yaz, foam, polyester or flocked swabs to collect a nasopharyngeal specimen. After collection, fold over the open end of the collection sleeve and seal with patient lab label, double bag in biohazard bag, and transport to the lab YULIA, no later than 60 minutes from collection. Collection must be done while wearing N-95 mask, eye protection, gown and gloves. Performed By: #### L [email or web address] #### [facility] (DEFAULT) [address] [address] Bacteria ABSENT Normal ABSENT [facility] Comment on above: Order Comment: Use r yaz, foam, polyester or flocked swabs to collect a nasopharyngeal specimen. After collection, fold over the open end of the collection sleeve and seal with patient lab label, double bag in biohazard bag, and transport to the lab YULIA, no later than 60 minutes from collection. Collection must be done while wearing N-95 mask, eye protection, gown and gloves. Performed By: #### L [email or web address] #### [facility] (DEFAULT) [address] [address] Blood Urine Moderate Abnormal Negative [facility] Comment on above: Order Comment: Use r yaz, foam, polyester or flocked swabs to collect a nasopharyngeal specimen. After collection, fold over the open end of the collection sleeve and seal with patient lab label, double bag in biohazard bag, and transport to the lab YULIA, no later than 60 minutes from collection. Collection must be done while wearing N-95 mask, eye protection, gown and gloves. Performed By: #### L [email or web address] #### [facility] (DEFAULT) [address] [address] Color (U) Yellow Normal Yellow [facility] Comment on above: Order Comment: Use r yaz, foam, polyester or flocked swabs to collect a nasopharyngeal specimen. After collection, fold over the open end of the collection sleeve and seal with patient lab label, double bag in biohazard bag, and transport to the lab YULIA, no later than 60 minutes from collection. Collection must be done while wearing N-95 mask, eye protection, gown and gloves. Performed By: #### L [email or web address] #### [facility] (DEFAULT) [address] [place] [address] 22048 Glucose Ql (U) Negative Normal Negative [facility] Comment on above: Order Comment: Use r yaz, foam, polyester or flocked swabs to collect a nasopharyngeal specimen. After collection, fold over the open end of the collection sleeve and seal with patient lab label, double bag in biohazard bag, and transport to the lab YULIA, no later than 60 minutes from collection. Collection must be done while wearing N-95 mask, eye protection, gown and gloves. Performed By: #### L [email or web address] #### [facility] (DEFAULT) [address] [address] Ketones Ql (U) Negative Normal Negative [facility] Comment on above: Order Comment: Use r yaz, foam, polyester or flocked swabs to collect a nasopharyngeal specimen. After collection, fold over the open end of the collection sleeve and seal with patient lab label, double bag in biohazard bag, and transport to the lab YULIA, no later than 60 minutes from collection. Collection must be done while wearing N-95 mask, eye protection, gown and gloves. Performed By: #### L [email or web address] #### [facility] (DEFAULT) [address] [address] Leukocyte esterase Test strip Ql (U) Trace Abnormal Negative [facility] Comment on above: Order Comment: Use r yaz, foam, polyester or flocked swabs to collect a nasopharyngeal specimen. After collection, fold over the open end of the collection sleeve and seal with patient lab label, double bag in biohazard bag, and transport to the lab YULIA, no later than 60 minutes from collection. Collection must be done while wearing N-95 mask, eye protection, gown and gloves. Performed By: #### L [email or web address] #### [facility] (DEFAULT) [address] [address] Nitrites Urine Negative Normal Negative [facility] Comment on above: Order Comment: Use r yaz, foam, polyester or flocked swabs to collect a nasopharyngeal specimen. After collection, fold over the open end of the collection sleeve and seal with patient lab label, double bag in biohazard bag, and transport to the lab YULIA, no later than 60 minutes from collection. Collection must be done while wearing N-95 mask, eye protection, gown and gloves. Performed By: #### L [email or web address] #### U [facility] (DEFAULT) [address] [place] [address] pH (U) 7.5 [pH] Abnormal 5.0-7.0 [facility] Comment on above: Order Comment: Use r yaz, foam, polyester or flocked swabs to collect a nasopharyngeal specimen. After collection, fold over the open end of the collection sleeve and seal with patient lab label, double bag in biohazard bag, and transport to the lab YULIA, no later than 60 minutes from collection. Collection must be done while wearing N-95 mask, eye protection, gown and gloves. Performed By: #### L [email or web address] #### [facility] (DEFAULT) [address] [place] [address]693 Protein Urine Negative Normal Negative [facility] Comment on above: Order Comment: Use r yaz, foam, polyester or flocked swabs to collect a nasopharyngeal specimen. After collection, fold over the open end of the collection sleeve and seal with patient lab label, double bag in biohazard bag, and transport to the lab YULIA, no later than 60 minutes from collection. Collection must be done while wearing N-95 mask, eye protection, gown and gloves. Performed By: #### L [email or web address] #### [facility] (DEFAULT) [address] [address] RBC Urine 10-20 Abnormal 0-2 [facility] Comment on above: Order Comment: Use r yaz, foam, polyester or flocked swabs to collect a nasopharyngeal specimen. After collection, fold over the open end of the collection sleeve and seal with patient lab label, double bag in biohazard bag, and transport to the lab YULIA, no later than 60 minutes from collection. Collection must be done while wearing N-95 mask, eye protection, gown and gloves. Performed By: #### L [email or web address] #### [facility] (DEFAULT) [address] [address] Specific [place] Urine 1.015 Normal 1.001-1.035 [facility] Comment on above: Order Comment: Use r yaz, foam, polyester or flocked swabs to collect a nasopharyngeal specimen. After collection, fold over the open end of the collection sleeve and seal with patient lab label, double bag in biohazard bag, and transport to the lab YULIA, no later than 60 minutes from collection. Collection must be done while wearing N-95 mask, eye protection, gown and gloves. Performed By: #### L [email or web address] #### [facility] (DEFAULT) [address] [address] Squamous/Epithelial Cells 2-5/hpf = 2+ Normal 1/hpf = 1+, 2-5/hpf = 2+, 0/hpf = 0+, ABSENT [facility] Comment on above: Order Comment: Use r yaz, foam, polyester or flocked swabs to collect a nasopharyngeal specimen. After collection, fold over the open end of the collection sleeve and seal with patient lab label, double bag in biohazard bag, and transport to the lab YULIA, no later than 60 minutes from collection. Collection must be done while wearing N-95 mask, eye protection, gown and gloves. Performed By: #### L [email or web address] #### [facility] (DEFAULT) [address] [address] Urobilinogen Urine 0.2 E.U./dL Normal 0.2 E.U/d L, 1.0 E.U/dL [facility] Comment on above: Order Comment: Use r yaz, foam, polyester or flocked swabs to collect a nasopharyngeal specimen. After collection, fold over the open end of the collection sleeve and seal with patient lab label, double bag in biohazard bag, and transport to the lab YULIA, no later than 60 minutes from collection. Collection must be done while wearing N-95 mask, eye protection, gown and gloves. Performed By: #### L [email or web address] #### [facility] (DEFAULT) [address] [address] WBC Urine 0-5 Normal 0-5 [facility] Comment on above: Order Comment: Use r yaz, foam, polyester or flocked swabs to collect a nasopharyngeal specimen. After collection, fold over the open end of the collection sleeve and seal with patient lab label, double bag in biohazard bag, and transport to the lab YULIA, no later than 60 minutes from collection. Collection must be done while wearing N-95 mask, eye protection, gown and gloves. Performed By: #### L [email or web address] #### [facility] (DEFAULT) [address] [place] [address] Appearance (U) Clear Clear U [facility] Bacteria LM Ql (Urine sed) ABSENT ABSENT U [facility] Color (U) Yellow Yellow [facility] Epithelial cells.squamous LM Ql (Urine sed) 2-5/hpf = 2+ 1/hpf = 1+, 2-5/hpf = 2+, 0/hpf = 0+, ABSENT [facility] Glucose Test strip (U) [Mass/Vol] Negative Negative [facility] Interpretation and review of laboratory results [facility] Ketones ([facility] [Mass/Vol] Negative Negative [facility] Leukocyte esterase Test strip Ql (U) Trace Abnormal Negative [facility] Nitrite Ql (U) Negative Negative [facility] pH (U) 7.5 [pH] Abnormal 5.0 - 7.0 [facility] Protein (U) [Mass/Vol] Negative Negative [facility] RBC (U) [#/Vol] Moderate [facility] RBC LM.HPF (Urine sed) [#/Area] 10-20 Abnormal [facility] Specific gravity (U) [Rel density] 1.015 1.001 - 1.035 U [facility] Urobilinogen (U) [Mass/Vol] 0.2 E.U./dL 0.2 E.U/dL, 1.0 E.U/dL [facility] WBC LM.HPF (Urine sed) [#/Area] 0-5 [facility] XR CHEST PORTABLEon 01-23-20 XR CHEST PORTABLE EXAM: XR CHEST PORTABLE, 01/22/2022 12:22 PM COMPARISON: 01/20/2022 CLINICAL INDICATIONS: fever, stroke, r/o aspiration RELEVANT CLINICAL HISTORY: Please wet read; FINDINGS: (Adequate technique) Implanted Devices: None Thorax: Prominent right hilum which is also obscured due to the overlying monitor lead but grossly similar to previous exam. Opacity within medial aspect of right lower hemithorax likely related to hiatal hernia. No pleural effusion or pneumothorax. Cardiomediastinal silhouette and osseous structures are stable. IMPRESSION: No definite acute process. Normal [facility] CBC,PLATELETSon 01-21-2022 Hematocrit (Bld) [Volume fraction] 35.3 % Normal 34.9-44.3 [facility] Comment on above: Performed By: #### M GO, CHM7, IPB, LIPDR, HFP #### [facility] (DEFAULT) [address] [place] [address] Hemoglobin (Bld) [Mass/Vol] 11.6 g/dL Normal 11.4-15.2 [facility] Comment on above: Performed By: #### M GO, CHM7, IPB, LIPDR, HFP #### [facility] (DEFAULT) [address] [place] [address] MCV (RBC) [Entitic vol] 92.9 fL Normal 79.6-97.7 O [facility] Comment on above: Performed By: #### M GO, CHM7, IPB, LIPDR, HFP #### [facility] (DEFAULT) [address] [place] [address] Mean Cell Hgb 30.5 pg Normal 25.9-33.9 [facility] Comment on above: Performed By: #### M GO, CHM7, IPB, LIPDR, HFP #### [facility] (DEFAULT) [address] [place] [address] Mean Cell Hgb Conc 32.9 g/dL Normal 31.4-35.9 [facility] Comment on above: Performed By: #### M GO, CHM7, IPB, LIPDR, HFP #### U [facility] (DEFAULT) [address] [place] [address] Platelet mean volume (Bld) [Entitic vol] 10.3 fL Normal 8.5-12.2 [facility] Comment on above: Performed By: #### M GO, CHM7, IPB, LIPDR, HFP #### [facility] (DEFAULT) [address] [place] [address] 35707 Platelets (Bld) [#/Vol] 233 10*3/uL Normal 150-393 [facility] Comment on above: Performed By: #### M GO, CHM7, IPB, LIPDR, HFP #### U [facility] (DEFAULT) [address] [place] [address] 70760 RBC (Bld) [#/Vol] 3.80 10*6/uL Low 3.91-5.04 [facility] Comment on above: Performed By: #### M GO, CHM7, IPB, LIPDR, HFP #### U [facility] (DEFAULT) [address] [place] [address] 92491 RBC Distribution 13.9 % Normal 10.8-14.9 [facility] Comment on above: Performed By: #### M GO, CHM7, IPB, LIPDR, HFP #### U [facility] (DEFAULT) [address] [place] [address] 41877 WBC (Bld) [#/Vol] 11.79 10*3/uL High 3.99-11.19 [facility] Comment on above: Performed By: #### M GO, CHM7, IPB, LIPDR, HFP #### U [facility] (DEFAULT) [address] [place] [address] 70444 Erythrocyte distribution width (RBC) [Ratio] 13.9 % 10.8 - 14.9 % [facility] Hematocrit (Bld) [Volume fraction] 35.3 % 34.9 - 44.3 % [facility] Hemoglobin (Bld) [Mass/Vol] 11.6 g/dL 11.4 - 15.2 g/dL [facility] Interpretation and review of laboratory results Abnormal [facility] MCH (RBC) [Entitic mass] 30.5 pg 25.9 - 33.9 pg [facility] MCHC (RBC) [Mass/Vol] 32.9 g/dL 31.4 - 35.9 g/dL [facility] MCV (RBC) [Entitic vol] 92.9 fL 79.6 - 97.7 fL [facility] Platelet mean volume (Bld) [Entitic vol] 10.3 fL 8.5 - 12.2 fL [facility] Platelets (Bld) [#/Vol] 233 10*3/uL 150 - 393 K/uL [facility] RBC (Bld) [#/Vol] 3.80 10*6/uL Low [facility] WBC (Bld) [#/Vol] 11.79 10*3/uL High 3.99 - 11 .19 K/uL [facility] CHEM 7 (LYTES,BUN,CREA,GLUC) on 01-21-2022 Anion gap [Moles/Vol] 15 mmol/L Normal 7-17 [facility] Comment on above: Performed By: #### M ESME ALBRIGHTM7, IPB, LIPDR, HFP #### [facility] (DEFAULT) [address] [place] [address] 98156 Chloride [Moles/Vol] 107 mmol/L Normal 98-108 [facility] Comment on above: Performed By: #### M JOSE RAMON CHM7, IPB, LIPDR, HFP #### [facility] (DEFAULT) [address] [place] [address] 04789 CO2 [Moles/Vol] 23 mmol/L Normal 21-31 [facility] Comment on above: Performed By: #### M GO, CHM7, IPB, LIPDR, HFP #### U [facility] (DEFAULT) [address] [place] [address] 10991 Creatinine [Mass/Vol] 0.92 mg/dL Normal 0.50-1.20 [facility] Comment on above: Performed By: #### M GO, CHM7, IPB, LIPDR, HFP #### [facility] (DEFAULT) [address] [place] [address] 07852 GFR/1.73 sq M.predicted among non-blacks MDRD (S/P/Bld) [Vol rate/Area] 63 mL/min/{1.73_m2} Normal >=60 [facility] Comment on above: Result Comment: Repo rted eGFR is based on the CKD-EPI 2020 equation using creatinine, age, and sex. Performed By: #### M GO, CHM7, IPB, LIPDR, HFP #### U [facility] (DEFAULT) [address] [place] [address] 77521 Glucose [Mass/Vol] 110 mg/dL High 70-99 [facility] Comment on above: Performed By: #### M GO, CHM7, IPB, LIPDR, HFP #### [facility] (DEFAULT) [address] [place] [address] 91264 Osmolality [Osmolality] 297 mosm/kg Normal 278-305 [facility] Comment on above: Performed By: #### M GO, CHM7, IPB, LIPDR, HFP #### U [facility] (DEFAULT) [address] [place] [address] 31919 Potassium [Moles/Vol] 3.9 mmol/L Normal 3.5-5.0 [facility] Comment on above: Performed By: #### M GO, CHM7, IPB, LIPDR, HFP #### [facility] (DEFAULT) [address] [place] [address] 26302 Sodium [Moles/Vol] 141 mmol/L Normal 135-145 [facility] Comment on above: Performed By: #### M GO, CHM7, IPB, LIPDR, HFP #### [facility] (DEFAULT) [address] [place] [address] Urea nitrogen [Mass/Vol] 17 mg/dL Normal 7-25 [facility] Comment on above: Performed By: #### M GO, CHM7, IPB, LIPDR, HFP #### [facility] (DEFAULT) [address] [place] [address] Urea nitrogen/Creatinine [Mass ratio] 18 mg/mg Normal [facility] Comment on above: Performed By: #### M JOSE RAMON, CHM7, IPB, LIPDR, HFP #### [facility] (DEFAULT) [address] [place] [address] 08918 Anion gap [Moles/Vol] 15 mmol/L 7 - 17 mmol/L [facility] Chloride [Moles/Vol] 107 mmol/L 98 - 10 8 mmol/L [facility] CO2 [Moles/Vol] 23 mmol/L 21 - 31 mmol/L [facility] Creatinine [Mass/Vol] 0.92 mg/dL 0.50 - 1.20 mg/dL [facility] GFR/1.73 sq M.predicted CKD-EPI (S/P/Bld) [Vol rate/Area] 63 - PINF [facility] Glucose [Mass/Vol] 110 mg/dL High 70 - 99 mg/dL [facility] Interpretation and review of laboratory results Abnormal [facility] Osmolality Calc [Osmolality] 297 [facility] Potassium [Moles/Vol] 3.9 mmol/L 3.5 - 5.0 mmol/L [facility] Sodium [Moles/Vol] 141 mmol/L 135 - 145 mmol/L [facility] Urea nitrogen [Mass/Vol] 17 mg/dL 7 - 25 mg/dL [facility] Urea nitrogen/Creatinine [Mass ratio] 18 [facility] MONITORIN G STRIPOrdered By: Unassigned Pacs on 01-21-2022 [facility] Work Phone: CT HEAD WITHOUT CONTRASTon 1 03-23-2021 CT HEAD WITHOUT CONTRAST EXAM: CT HEAD WITHOUT CONTRAST, 01/20/2022 10:32 PM COMPARISON: MRI from same day. CT from January 19, 2022 CLINICAL INDICATIONS: 81 years Female Stroke, follow up; TECHNIQUE: A series of transaxial computerized tomographic images are obtained from base of skull to vertex without intravenous contrast. Axial whole-head and thin section posterior fossa slices are provided. Reformats: Sagittal and coronal. FINDINGS: There is continued evolution of recent infarct involving the right is again right medial temporal lobe with increasing edema and mass effect and worsening effacement of the right lateral ventricle. There is hyperdense foci within the right basal ganglia acute infarct, compatible with hemorrhagic transformation given presence of susceptibility on same-day MRI.. There is worsening mass effect and approximately 2 mm leftward midline shift, increased compared to prior.. There is also minimal hyperdensity along the right medial frontal sulci (image 14 of series 4), suspicious for small amount of acute subarachnoid hemorrhage. The sella and orbits are unremarkable. The visualized portions of the paranasal sinuses are clear. Mastoid air cells are clear. Calvarium is intact. IMPRESSION: Continued evolution of recent infarct involving the right basal ganglia and right medial temporal lobe, with worsening edema and mass effect and approximately 2 mm leftward midline shift. 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 There is also minimal acute subarachnoid hemorrhage along the right frontal sulci, new compared to prior. Normal [facility] CT Head WO contraston 2021 RADIOLOGY RADIOLOGY [facility] HIGH SENSITIVITY TROPONIN I - SINGLE ORDERon 01-21-2022 hs-Troponin I 2025 ng/L High <34 [facility] Comment on above: Order Comment: Acute Coronary Syndrome (ACS): Initial Evaluation and Management:[email or web address] [email or web address]#[email or web address] Result Comment: Sugg estive of myocardial injury Performed By: #### H EMO #### [facility] (DEFAULT) [address] [place] [address] hs-Troponin I 2363 ng/L High <34 [facility] Comment on above: Order Comment: Acute Coronary Syndrome (ACS): Initial Evaluation and Management:[email or web address] delines/[email or web address]%[email or web address]#[email or web address] Result Comment: Sugg estive of myocardial injury Performed By: #### H [facility] #### [facility] (DEFAULT) [address] [place] [address]188 HIGH SENSITIVITY TROPONIN I - SINGLE ORDEROrdered By: Gary Philip on 01-21-2022 Interpretation and review of laboratory results Abnormal [facility] Troponin I.cardiac DL <= 0.01 ng/mL [Mass/Vol] 2025 ng/L High NINF - 34 ng/L [facility] HIGH SENSITIVITY TROPONIN I - SINGLE ORDEROrdered By: Juan Francisco Conley on 01-21-2022 Interpretation and review of laboratory results Abnormal [facility] Troponin I.cardiac DL <= 0.01 ng/mL [Mass/Vol] 2363 ng/L High NINF - 34 ng/L [facility] IONIZED CALCIUM, WHOLE BLOOD on 01-21-2022 ICA 4.49 mg/dL Low 4.60-5.30 [facility] Comment on above: Performed By: #### M GO, CHM7, IPB, LIPDR, HFP #### [facility] (DEFAULT) [address] [place] [address] 98776 IONIZED CALCIUM, WHOLE BLOOD Ordered By: Mello Irizarry on 01-21-2022 Calcium.ionized (Bld) [Moles/Vol] 4.49 mg/dL Low 4.60 - 5.30 mg/dL [facility] Interpretation and review of laboratory results Abnormal [facility] MAGNESIUMon 01-21-2022 Magnesium [Mass/Vol] 2.1 mg/dL Normal 1.6-2.6 [facility] Comment on above: Performed By: #### M FARHAN ALBRIGHT, IPB, LIPDR, HFP #### [facility] (DEFAULT) [address] [place] [address] 72280 Magnesium [Mass/Vol] 2.1 mg/dL 1.6 - 2 .6 mg/dL [facility] No Panel Informationon 01-21 [facility] Interpretation and review of laboratory results Normal [facility] PHOSPHATE, INORGANICon 01-21 Phosphorous 3.6 mg/dL Normal 2.2-4.6 [facility] Comment on above: Performed By: #### M FARHAN ALBRIGHT, IPB, LIPDR, HFP #### [facility] (DEFAULT) [address] [place] [address] 22932 Phosphate [Mass/Vol] 3.6 mg/dL 2.2 - 4 .6 mg/dL [facility] CBC,PLATELETSon 01-20-2022 Hematocrit (Bld) [Volume fraction] 35.4 % Normal 34.9-44.3 [facility] Comment on above: Performed By: #### L ABSARS1 #### [facility] (DEFAULT) [address] [place] [address] 94965 Hemoglobin (Bld) [Mass/Vol] 11.5 g/dL Normal 11.4-15.2 [facility] Comment on above: Performed By: #### L ABSARS1 #### [facility] (DEFAULT) [address] [place] [address] 03426 MCV (RBC) [Entitic vol] 94.7 fL Normal 79.6-97.7 O [facility] Comment on above: Performed By: #### L ABSARS1 #### [facility] (DEFAULT) [address] [address] Mean Cell Hgb 30.7 pg Normal 25.9-33.9 [facility] Comment on above: Performed By: #### L ABSARS1 #### [facility] (DEFAULT) [address] [address] Mean Cell Hgb Conc 32.5 g/dL Normal 31.4-35.9 [facility] Comment on above: Performed By: #### L ABSARS1 #### U [facility] (DEFAULT) [address] [address] Platelet mean volume (Bld) [Entitic vol] 10.4 fL Normal 8.5-12.2 [facility] Comment on above: Performed By: #### L ABSARS1 #### [facility] (DEFAULT) [address] [address] Platelets (Bld) [#/Vol] 245 10*3/uL Normal 150-393 [facility] Comment on above: Performed By: #### L ABSARS1 #### [facility] (DEFAULT) [address] [address] RBC (Bld) [#/Vol] 3.74 10*6/uL Low 3.91-5.04 [facility] Comment on above: Performed By: #### L ABSARS1 #### [facility] (DEFAULT) [address] [address] RBC Distribution 13.4 % Normal 10.8-14.9 [facility] Comment on above: Performed By: #### L ABSARS1 #### [facility] (DEFAULT) [address] [address] WBC (Bld) [#/Vol] 8.70 10*3/uL Normal 3.99-11.19 [facility] Comment on above: Performed By: #### L ABSARS1 #### [facility] (DEFAULT) [address] [address] Erythrocyte distribution width (RBC) [Ratio] 13.4 % 10.8 - 14.9 % [facility] Hematocrit (Bld) [Volume fraction] 35.4 % 34.9 - 44.3 % [facility] Hemoglobin (Bld) [Mass/Vol] 11.5 g/dL 11.4 - 15.2 g/dL [facility] Interpretation and review of laboratory results Abnormal [facility] MCH (RBC) [Entitic mass] 30.7 pg 25.9 - 33.9 pg [facility] MCHC (RBC) [Mass/Vol] 32.5 g/dL 31.4 - 35.9 g/dL [facility] MCV (RBC) [Entitic vol] 94.7 fL 79.6 - 97.7 fL [facility] Platelet mean volume (Bld) [Entitic vol] 10.4 fL 8.5 - 12.2 fL [facility] Platelets (Bld) [#/Vol] 245 10*3/uL 150 - 393 K/uL [facility] RBC (Bld) [#/Vol] 3.74 10*6/uL Low [facility] WBC (Bld) [#/Vol] 8.70 10*3/uL 3.99 - 11. 19 K/uL [facility] CHEM 7 (LYTES,BUN,CREA,GLUC) on 01-20-2022 Anion gap [Moles/Vol] 15 mmol/L Normal 7-17 [facility] Comment on above: Performed By: #### M JOSE RAMON, CHM7, IPB, LIPDR, HFP #### [facility] (DEFAULT) [address] [place] [address] Chloride [Moles/Vol] 110 mmol/L High 98-108 [facility] Comment on above: Performed By: #### M GO, CHM7, IPB, LIPDR, HFP #### [facility] (DEFAULT) [address] [place] [address] CO2 [Moles/Vol] 22 mmol/L Normal 21-31 [facility] Comment on above: Performed By: #### M GO, CHM7, IPB, LIPDR, HFP #### U [facility] (DEFAULT) [address] [place] [address] 30810 Creatinine [Mass/Vol] 0.79 mg/dL Normal 0.50-1.20 [facility] Comment on above: Performed By: #### M GO, CHM7, IPB, LIPDR, HFP #### U [facility] (DEFAULT) [address] [place] [address] 72781 GFR/1.73 sq M.predicted among non-blacks MDRD (S/P/Bld) [Vol rate/Area] 76 mL/min/{1.73_m2} Normal >=60 [facility] Comment on above: Result Comment: Repo rted eGFR is based on the CKD-EPI 2020 equation using creatinine, age, and sex. Performed By: #### M GO, CHM7, IPB, LIPDR, HFP #### [facility] (DEFAULT) [address] [place] [address] 85173 Glucose [Mass/Vol] 108 mg/dL High 70-99 [facility] Comment on above: Performed By: #### M GO, CHM7, IPB, LIPDR, HFP #### U [facility] (DEFAULT) [address] [place] [address] 82640 Osmolality [Osmolality] 299 mosm/kg Normal 278-305 [facility] Comment on above: Performed By: #### M GO, CHM7, IPB, LIPDR, HFP #### U [facility] (DEFAULT) [address] [place] [address] 91660 Potassium [Moles/Vol] 4.5 mmol/L Normal 3.5-5.0 [facility] Comment on above: Result Comment: Slig htly hemolyzed Performed By: #### M GO, CHM7, IPB, LIPDR, HFP #### U [facility] (DEFAULT) [address] [place] [address] 12390 Sodium [Moles/Vol] 142 mmol/L Normal 135-145 [facility] Comment on above: Performed By: #### M GO, CHM7, IPB, LIPDR, HFP #### [facility] (DEFAULT) [address] [place] [address] Urea nitrogen [Mass/Vol] 15 mg/dL Normal 7-25 [facility] Comment on above: Performed By: #### M JOSE RAMON, CHM7, IPB, LIPDR, HFP #### [facility] (DEFAULT) [address] [place] [address] 70716 Urea nitrogen/Creatinine [Mass ratio] 19 mg/mg Normal [facility] Comment on above: Performed By: #### M JOSE RAMON, CHM7, IPB, LIPDR, HFP #### [facility] (DEFAULT) [address] [place] [address] 53091 Anion gap [Moles/Vol] 15 mmol/L 7 - 17 mmol/L [facility] Chloride [Moles/Vol] 110 mmol/L High 98 - 10 8 mmol/L [facility] CO2 [Moles/Vol] 22 mmol/L 21 - 31 mmol/L [facility] Creatinine [Mass/Vol] 0.79 mg/dL 0.50 - 1.20 mg/dL [facility] GFR/1.73 sq M.predicted CKD-EPI (S/P/Bld) [Vol rate/Area] 76 - PINF [facility] Glucose [Mass/Vol] 108 mg/dL High 70 - 99 mg/dL [facility] Interpretation and review of laboratory results Abnormal [facility] Osmolality Calc [Osmolality] 299 [facility] Potassium [Moles/Vol] 4.5 mmol/L 3.5 - 5.0 mmol/L [facility] Sodium [Moles/Vol] 142 mmol/L 135 - 145 mmol/L [facility] Urea nitrogen [Mass/Vol] 15 mg/dL 7 - 25 mg/dL [facility] Urea nitrogen/Creatinine [Mass ratio] 19 [facility] Radiology Study observation (narrative) [facility] GLUCOSE POCon 01-20-2022 Glucose [Mass/Vol] 137 mg/dL High 70 - 99 mg/dL [facility] Interpretation and review of laboratory results Abnormal [facility] POC Sample Type [facility] Glucose [Mass/Vol] 105 mg/dL High 70 - 99 mg/dL [facility] Interpretation and review of laboratory results Abnormal [facility] POC Sample Type [facility] Glucose [Mass/Vol] 105 mg/dL High 70 - 99 mg/dL [facility] Interpretation and review of laboratory results Abnormal [facility] POC Sample Type [facility] Glucose [Mass/Vol] 116 mg/dL High 70 - 99 mg/dL [facility] Interpretation and review of laboratory results Abnormal [facility] POC Sample Type CAPBL [facility] HEMOGLOBIN [id number] By: Quang Grayson on 01-20-2022 Average glucose Estimated from glycated hemoglobin (Bld) [Mass/Vol] 114 mg/dL [facility] HbA1c (Bld) [Mass fraction] 5.6 % 4.7 - 5.6 % [facility] HEMOGLOBIN A1Con 01-20-2022 Glucose [Mass/Vol] 114 mg/dL Normal [facility] Comment on above: Performed By: #### H [facility] #### [facility] (DEFAULT) [address] [place] [address] HbA1c (Bld) [Mass fraction] 5.6 % Normal 4.7-5.6 [facility] Comment on above: Performed By: #### H [facility] #### [facility] (DEFAULT) [address] [place] [address] 201[address] HEPATIC FUNCTION PANELon Albumin [Mass/Vol] 3.4 g/dL Low 3.5-5.0 [facility] Comment on above: Performed By: #### M GO, CHM7, IPB, LIPDR, HFP #### U [facility] (DEFAULT) [address] [place] [address] 16598 ALP [Catalytic activity/Vol] 61 U/L Normal 32-126 [facility] Comment on above: Performed By: #### M GO, CHM7, IPB, LIPDR, HFP #### U [facility] (DEFAULT) [address] [place] [address] 49372 ALT [Catalytic activity/Vol] 21 U/L Normal 9-48 [facility] Comment on above: Result Comment: Slig htly hemolyzed Performed By: #### M GO, CHM7, IPB, LIPDR, HFP #### U [facility] (DEFAULT) [address] [place] [address] 35296 AST [Catalytic activity/Vol] 52 U/L High 10-39 [facility] Comment on above: Result Comment: Slig htly hemolyzed Performed By: #### M GO, CHM7, IPB, LIPDR, HFP #### U [facility] (DEFAULT) [address] [place] [address] 83554 Bilirubin [Mass/Vol] 0.8 mg/dL Normal <1.5 [facility] Comment on above: Result Comment: Slig htly hemolyzed Performed By: #### M GO, CHM7, IPB, LIPDR, HFP #### U [facility] (DEFAULT) [address] [place] [address] 24016 Bilirubin.indirect [Mass/Vol] 0.1 mg/dL Normal <0.3 [facility] Comment on above: Result Comment: Slig htly hemolyzed Performed By: #### M GO, CHM7, IPB, LIPDR, HFP #### [facility] (DEFAULT) [address] [place] [address] Protein [Mass/Vol] 6.4 g/dL Normal 6.4-8.3 [facility] Comment on above: Performed By: #### M GO, CHM7, IPB, LIPDR, HFP #### [facility] (DEFAULT) [address] [place] [address] HEPATIC FUNCTION PANELOrdere d By: Gomez Valenzuela on 01-20-2022 Albumin [Mass/Vol] 3.4 g/dL Low 3.5 - 5.0 g/dL [facility] ALP [Catalytic activity/Vol] 61 U/L 32 - 126 U/L [facility] ALT [Catalytic activity/Vol] 21 U/L 9 - 48 U/L [facility] AST [Catalytic activity/Vol] 52 U/L High 10 - 39 U/L [facility] Bilirubin [Mass/Vol] 0.8 mg/dL NINF - 1.5 mg/dL [facility] Bilirubin.direct [Mass/Vol] 0.1 mg/dL [facility] Interpretation and review of laboratory results Abnormal [facility] Protein [Mass/Vol] 6.4 g/dL 6.4 - 8.3 g/dL [facility] HIGH SENSITIVITY TROPONIN I - SINGLE ORDERon 01-20-2022 hs-Troponin I 2616 ng/L High <34 [facility] Comment on above: Order Comment: Acute Coronary Syndrome (ACS): Initial Evaluation and Management: [email or web address]/Acu te%20Coronary%20Syndrome.pdf#search=troponin Result Comment: Sugg estive of myocardial injury Performed By: #### L ABHSTI1 #### U [facility] (DEFAULT) [address] [place] [address] hs-Troponin I 3590 ng/L Critically high <34 [facility] Comment on above: Order Comment: Acute Coronary Syndrome (ACS): Initial Evaluation and Management:[email or web address]/Documents/Pineda delines/Acute%20Coronary%20Syndrome.pdf#search=troponin Result Comment: Sugg estive of myocardial injury Performed By: #### M GO, CHM7, IPB, LIPDR, HFP #### [facility] (DEFAULT) [address] [address] hs-Troponin I 3124 ng/L Critically high <34 [facility] Comment on above: Order Comment: Acute Coronary Syndrome (ACS): Initial Evaluation and Management:[email or web address]/Documents/Pineda delines/Acute%20Coronary%20Syndrome.pdf#search=troponin Result Comment: Sugg estive of myocardial injury Critical value previously called. Performed By: #### H EMO #### [facility] (DEFAULT) [address] [address] Interpretation and review of laboratory results Abnormal [facility] Troponin I.cardiac DL <= 0.01 ng/mL [Mass/Vol] 3124 ng/L Critically high NINF - 34 ng/L [facility] hs-Troponin I 3015 ng/L Critically high <34 [facility] Comment on above: Order Comment: Acute Coronary Syndrome (ACS): Initial Evaluation and Management:[email or web address]/Documents/Pineda delines/Acute%20Coronary%20Syndrome.pdf#search=troponin Result Comment: Sugg estive of myocardial injury Critical value previously called. Performed By: #### H EMOGC #### [facility] (DEFAULT) [address] [address] HIGH SENSITIVITY TROPONIN I - SINGLE ORDEROrdered By: Mandi Ruth on 01-20-2022 Interpretation and review of laboratory results Abnormal [facility] Troponin I.cardiac DL <= 0.01 ng/mL [Mass/Vol] 2616 ng/L High NINF - 34 ng/L [facility] HIGH SENSITIVITY TROPONIN I - SINGLE ORDEROrdered By: Uriel Easley on 01-20-2022 Interpretation and review of laboratory results Abnormal [facility] Troponin I.cardiac DL <= 0.01 ng/mL [Mass/Vol] 3590 ng/L Critically high NINF - 34 ng/L [facility] HIGH SENSITIVITY TROPONIN I - SINGLE ORDEROrdered By: Beverly Marshall on 01-20-2022 Interpretation and review of laboratory results Abnormal [facility] Troponin I.cardiac DL <= 0.01 ng/mL [Mass/Vol] 3015 ng/L Critically high NINF - 34 ng/L [facility] IONIZED CALCIUM, WHOLE BLOOD on 01-20-2022 ICA 4.16 mg/dL Low 4.60-5.30 [facility] Comment on above: Performed By: #### H [facility] #### [facility] (DEFAULT) [address] [address] IONIZED CALCIUM, WHOLE BLOOD Ordered By: Carlos Santos on 01-20-2022 Calcium.ionized (Bld) [Moles/Vol] 4.16 mg/dL Low 4.60 - 5.30 mg/dL [facility] Interpretation and review of laboratory results Abnormal [facility] LIPID PANEL WITH REFLEX TO Sesar MOMIN LDLon 01-20-2022 Calculated LDL Cholesterol 90 mg/dL Normal 0-99 [facility] Comment on above: Result Comment: [<10 0 mg/dL: Optimal] [100-129 mg/dL: Near Optimal] [130-159 mg/dL: Borderline High] [160-189 mg/dL: High] [>189 mg/dL: Very High] Performed By: #### M GO, CHM7, IPB, LIPDR, HFP #### [facility] (DEFAULT) [address] [place] [address] Cholesterol [Mass/Vol] 171 mg/dL Normal <200 [facility] Comment on above: Result Comment: [<20 0 mg/dL: Desirable] [200-239 mg/dL: Borderline High] [>239 mg/dL: High] Performed By: #### M GO, CHM7, IPB, LIPDR, HFP #### U [facility] (DEFAULT) [address] [place] [address] Cholesterol in HDL [Mass/Vol] 54 mg/dL Normal >=40 [facility] Comment on above: Result Comment: [<40 mg/dL: Low (High Risk)] [>59 mg/dL: High (Low Risk)] Performed By: #### M GO, CHM7, IPB, LIPDR, HFP #### U [facility] (DEFAULT) [address] [place] [address] Non HDL Cholesterol 117 mg/dL Normal <130 [facility] Comment on above: Performed By: #### M GO, CHM7, IPB, LIPDR, HFP #### U [facility] (DEFAULT) [address] [place] [address] Total Cholesterol/HDL Ratio 3.2 Normal <4.5 [facility] Comment on above: Performed By: #### M GO, CHM7, IPB, LIPDR, HFP #### U [facility] (DEFAULT) [address] [place] [address] Triglyceride [Mass/Vol] 134 mg/dL Normal <150 O [facility] Comment on above: Result Comment: [<15 0 mg/dL: Desirable] [150-199 mg/dL: Borderline] [200-499 mg/dL: High] [>500 mg/dL: Very High] Performed By: #### M GO, CHM7, IPB, LIPDR, HFP #### U [facility] (DEFAULT) [address] [place] [address] Cholesterol [Mass/Vol] 171 mg/dL NINF - 200 mg/dL [facility] Cholesterol in HDL [Mass/Vol] 54 mg/dL 40 - PINF mg/dL [facility] Cholesterol in HDL [Mass/Vol] 117 mg/dL NINF - 130 mg/dL [facility] Cholesterol in LDL [Mass/Vol] 90 mg/dL 0 - 99 mg/dL [facility] Cholesterol.total/Lisa sterol in HDL [Mass ratio] 3.2 {ratio} NINF - 4.5 [facility] Triglyceride [Mass/Vol] 134 mg/dL NINF - 150 mg/dL [facility] MAGNESIUMon 01-20-2022 Magnesium [Mass/Vol] 2.1 mg/dL Normal 1.6-2.6 [facility] Comment on above: Result Comment: Slig htly hemolyzed Performed By: #### M GO, CHM7, IPB, LIPDR, HFP #### [facility] (DEFAULT) [address] [place] [address] Magnesium [Mass/Vol] 2.1 mg/dL 1.6 - 2 .6 mg/dL [facility] MR Brain WO contraston 01-20 RADIOLOGY RADIOLOGY [facility] Radiology Study observation (narrative) [facility] MR Brain WO contrastOrdered By: Priya Olvera on 01-20-2022 [facility] Work Phone: MRI BRAIN WITHOUT CONTRASTon 01-20-2022 MRI BRAIN WITHOUT CONTRAST EXAM: MRI BRAIN WITHOUT CONTRAST, 01/20/2022 12:17 PM COMPARISON: CT January 19, 2022 CLINICAL INDICATIONS: 81 years Female Stroke Workup; RELEVANT CLINICAL HISTORY: TECHNIQUE: A series of multisequence, multiplanar images of the brain are obtained without intravenous contrast. FINDINGS: Small acute infarct right cerebellum. Additional ovoid region of restricted diffusion in the medial right temporal lobe also concerning for additional region of acute infarction. Acute maturing infarct in the right caudate head and right lentiform nucleus with hemorrhagic transformation. There is associated regional mass effect with effacement of frontal horn of right lateral ventricle. No significant leftward midline shift. Small region of gliosis bilateral frontal lobes lobe from remote insults. Patchy areas of T2 FLAIR hyperintense signal involving subcortical and periventricular white matter presumed to be residua of mild chronic small vessel ischemic disease small vessel ischemic disease. No extracerebral collection. Sellar and parasellar structures are unremarkable. Extracranial structures are unremarkable. IMPRESSION: Small acute infarct right cerebellum. Additional ovoid region of restricted diffusion in the medial right temporal lobe also concerning for additional region of acute infarction. Acute maturing infarct in the right caudate head and right lentiform nucleus with hemorrhagic transformation. There is associated regional mass effect with effacement of frontal horn of right lateral ventricle-progressed since previous CT from January 19, 2022. No significant leftward midline shift. Normal [facility] MRI PLAIN FILM FOR NEURO EXA 01-20-2022 MRI PLAIN FILM FOR NEURO EXAM MRI PLAIN FILM FOR NEURO EXAM, 01/20/2022 11:01 AM CLINICAL INFORMATION: Female 81 years old need kub for mri clearance TECHNIQUE: MRI PLAIN FILM FOR NEURO EXAM COMPARISON: Not available. FINDINGS: No radiopaque foreign bodies. Greater than average Stuber, correlate for constipation. Nonobstructive bowel gas pattern. Contrast within the gallbladder likely related to previous intravenous contrast excretion. Contrast is also seen within the bladder. Vascular calcifications are seen within the soft tissues. Please note that supine imaging does not adequately assess for pneumoperitoneum. IMPRESSION: No radiopaque foreign body. Normal [facility] RADIOLOGY RADIOLOGY [facility] Radiology Study observation (narrative) [facility] MRI PLAIN FILM FOR NEURO EXA MOrdered By: Jovan Jacobo on 01-20-2022 [facility] No Panel Informationon 01-20 [facility] Interpretation and review of laboratory results Normal [facility] PHOSPHATE, INORGANICon 01-20 Phosphorous 3.8 mg/dL Normal 2.2-4.6 [facility] Comment on above: Result Comment: Slig htly hemolyzed Performed By: #### M GO, CHM7, IPB, LIPDR, HFP #### [facility] (DEFAULT) [address] [address] Phosphate [Mass/Vol] 3.8 mg/dL 2.2 - 4 .6 mg/dL [facility] Portable XR Chest Viewson RADIOLOGY RADIOLOGY [facility] Radiology Study observation (narrative) [facility] Portable XR Chest ViewsOrder ed By: Arnaud Mensah on 01-20-2022 [facility] Work Phone: SCREEN: MRSA/MSSAOrdered By: Beverly Prieto on 01-20-2022 Interpretation and review of laboratory results Normal [facility] Methicillin Resistant S. Aureus By Pcr Negative Negative [facility] Staphylococcus Aureus By Pcr Negative Negative [facility] SCREEN: MRSA/MSSAon 01-21-20 Methicillin Resistant S. Aureus By Pcr Negative Normal Negative [facility] Comment on above: Order Comment: Use r yaz, foam, polyester or flocked swabs to collect a nasopharyngeal specimen. After collection, fold over the open end of the collection sleeve and seal with patient lab label, double bag in biohazard bag, and transport to the lab YULIA, no later than 60 minutes from collection. Collection must be done while wearing N-95 mask, eye protection, gown and gloves. Performed By: #### L [id number] #### [facility] (DEFAULT) [address] [address] Staphylococcus Aureus By Pcr Negative Normal Negative [facility] Comment on above: Order Comment: Use r yaz, foam, polyester or flocked swabs to collect a nasopharyngeal specimen. After collection, fold over the open end of the collection sleeve and seal with patient lab label, double bag in biohazard bag, and transport to the lab YULIA, no later than 60 minutes from collection. Collection must be done while wearing N-95 mask, eye protection, gown and gloves. Performed By: #### L [email or web address] #### [facility] (DEFAULT) [address] [address] VON WILLEBRAND FACTOR AGon 1 03-22-2021 Von Willebrand Factor Antigen 373 % High 50-180 [facility] Comment on above: Performed By: #### V WFAG #### [facility] (DEFAULT) [address] [place] [address] XR CHEST PORTABLEon 01-21-20 22 XR CHEST PORTABLE EXAM: XR CHEST PORTABLE, 01/20/2022 00:47 AM CLINICAL INDICATIONS: baseline RELEVANT CLINICAL HISTORY: COMPARISON: No prior studies available for comparison. FINDINGS: Minimal left basilar volume loss. Otherwise clear lungs. Normal heart size. No pulmonary edema. Atherosclerotic calcifications in the aorta. Degenerative change of the thoracic spine. IMPRESSION: Minimal left basilar volume loss; otherwise clear lungs. Normal [facility] Absolute lymphocyte counton 01-19-2022 Lymphocytes Auto (Unsp spec) [#/Vol] 1.08 10*3/uL 0.83-4.51 [facility] Work Phone: Basophil percentageon 2021 Basophils/100 WBC (Bld) 0.3 % 0-1 [facility] Work Phone: [phone] Chloride [Moles/Vol] 106 mmol/L 98-107 [facility] Work Phone: [phone] Eosinophils/100 WBC (Bld) 0.2 % 0-5 [facility] Work Phone: [phone] Glucose [Mass/Vol] 126 mg/dL 74-106 [facility] Work Phone: Comment on above: Fasting Glucose resu lt greater than or equal to 126 mg/dL suggests DIABETES MELLITUS per A.D.A. criteria. Neutrophils (Bld) [#/Vol] 10.2 10*3/uL 2.0-7.7 [facility] Work Phone: [phone] Neutrophils/100 WBC (Bld) 86.9 % 47-70 [facility] Work Phone: [phone] Potassium [Moles/Vol] 4.1 mmol/L 3.5-5.1 [facility] Work Phone: Sodium [Moles/Vol] 141 mmol/L 136-145 [facility] r [facility] Work Phone: WBC (Bld) [#/Vol] 11.7 10*3/uL 4.4-11.0 [facility] Work Phone: Blood erythrocytes count (nu mber/volume)on 01-19-2022 RBC (Bld) [#/Vol] 4.16 10*6/uL 4.2-5.4 [facility] Work Phone: Blood hemoglobin measurement (mass/volume)on 01-19-2022 Hemoglobin (Bld) [Mass/Vol] 12.7 g/dL 12.0-15.0 [facility] Work Phone: Blood lymphocytes/100 leukoc yteson 01-19-2022 Lymphocytes/100 WBC (Bld) 9.3 % 19-41 [facility] Work Phone: Blood monocytes/100 leukocyt eson 01-19-2022 Monocytes/100 WBC (Bld) 2.9 % 0-10 [facility] Work Phone: Blood platelet mean volumeon 01-19-2022 Platelet mean volume (Bld) [Entitic vol] 10.5 fL 6.2-12.0 [facility] Work Phone: CBC AND ELECTRONIC DIFFon Abs Baso Auto < Normal 0.00-0.15 [facility] Comment on above: Performed By: #### M GO, CHM7, IPB, LIPDR, HFP #### [facility] (DEFAULT) [address] [address] Abs Eos Auto < Normal 0.00-0.42 [facility] Comment on above: Performed By: #### M GO, CHM7, IPB, LIPDR, HFP #### U [facility] (DEFAULT) [address] [address] Basophils/100 WBC (Bld) 0.1 % Normal O [facility] Comment on above: Performed By: #### M GO, CHM7, IPB, LIPDR, HFP #### U [facility] (DEFAULT) [address] [place] [address] DIFF STATUS Electronic Differential Normal [facility] Comment on above: Performed By: #### M GO, CHM7, IPB, LIPDR, HFP #### U [facility] (DEFAULT) [address] [place] [address] Eosinophils/100 WBC (Bld) 0.1 % Normal [facility] Comment on above: Performed By: #### M GO, CHM7, IPB, LIPDR, HFP #### U [facility] (DEFAULT) [address] [place] [address] Hematocrit (Bld) [Volume fraction] 41.1 % Normal 34.9-44.3 [facility] Comment on above: Performed By: #### M GO, CHM7, IPB, LIPDR, HFP #### [facility] (DEFAULT) [address] [place] [address] Hemoglobin (Bld) [Mass/Vol] 13.4 g/dL Normal 11.4-15.2 [facility] Comment on above: Performed By: #### M GO, CHM7, IPB, LIPDR, HFP #### [facility] (DEFAULT) [address] [place] [address] Immature Grans % 0.3 % Normal [facility] Comment on above: Performed By: #### M GO, CHM7, IPB, LIPDR, HFP #### U [facility] (DEFAULT) [address] [place] [address] Immature Grans Absolute < Normal <=0.08 [facility] Comment on above: Performed By: #### M GO, CHM7, IPB, LIPDR, HFP #### U [facility] (DEFAULT) [address] [place] [address] Lymphocytes (Bld) [#/Vol] 0.70 10*3/uL Low 1.16-3.51 [facility] Comment on above: Performed By: #### M GO, CHM7, IPB, LIPDR, HFP #### U [facility] (DEFAULT) [address] [place] [address] Lymphocytes/100 WBC (Bld) 9.0 % Normal [facility] Comment on above: Performed By: #### M GO, CHM7, IPB, LIPDR, HFP #### U [facility] (DEFAULT) [address] [place] [address] MCV (RBC) [Entitic vol] 94.7 fL Normal 79.6-97.7 [facility] Comment on above: Performed By: #### M GO, CHM7, IPB, LIPDR, HFP #### [facility] (DEFAULT) [address] [place] [address] Mean Cell Hgb 30.9 pg Normal 25.9-33.9 [facility] Comment on above: Performed By: #### M GO, CHM7, IPB, LIPDR, HFP #### [facility] (DEFAULT) [address] [place] [address] Mean Cell Hgb Conc 32.6 g/dL Normal 31.4-35.9 [facility] Comment on above: Performed By: #### M GO, CHM7, IPB, LIPDR, HFP #### [facility] (DEFAULT) [address] [place] [address] Monocytes (Bld) [#/Vol] 0.10 10*3/uL Low 0.22-0.87 [facility] Comment on above: Performed By: #### M GO, CHM7, IPB, LIPDR, HFP #### U [facility] (DEFAULT) [address] [place] [address] Monocytes/100 WBC (Bld) 1.3 % Normal O [facility] Comment on above: Performed By: #### M GO, CHM7, IPB, LIPDR, HFP #### [facility] (DEFAULT) [address] [place] [address] Nucleated RBC 0.0 /100 WBC Normal <=0.2 [facility] Comment on above: Performed By: #### M GO, CHM7, IPB, LIPDR, HFP #### [facility] (DEFAULT) [address] [place] [address] Platelet mean volume (Bld) [Entitic vol] 10.2 fL Normal 8.5-12.2 [facility] Comment on above: Performed By: #### M GO, CHM7, IPB, LIPDR, HFP #### [facility] (DEFAULT) [address] [place] [address] Platelets (Bld) [#/Vol] 258 10*3/uL Normal 150-393 [facility] Comment on above: Performed By: #### M GO, CHM7, IPB, LIPDR, HFP #### U [facility] (DEFAULT) [address] [place] [address] RBC (Bld) [#/Vol] 4.34 10*6/uL Normal 3.91-5.04 [facility] Comment on above: Performed By: #### M GO, CHM7, IPB, LIPDR, HFP #### U [facility] (DEFAULT) [address] [place] [address] RBC Distribution 13.1 % Normal 10.8-14.9 [facility] Comment on above: Performed By: #### M GO, CHM7, IPB, LIPDR, HFP #### [facility] (DEFAULT) [address] [place] [address] Segs + Bands Auto 89.2 % Normal [facility] Comment on above: Performed By: #### M GO, CHM7, IPB, LIPDR, HFP #### [facility] (DEFAULT) [address] [place] [address] Segs + Bands,Absolute Auto 6.98 K/uL Normal 1.64-7.28 [facility] Comment on above: Performed By: #### M GO, CHM7, IPB, LIPDR, HFP #### [facility] (DEFAULT) [address] [place] [address] WBC (Bld) [#/Vol] 7.82 10*3/uL Normal 3.99-11.19 [facility] Comment on above: Performed By: #### M GO, CHM7, IPB, LIPDR, HFP #### [facility] (DEFAULT) [address] [place] [address] Basophils (Bld) [#/Vol] K/uL 0.00 - 0.15 K/uL [facility] Basophils/100 WBC (Bld) 0.1 % [facility] Differential cell count method Nom (Bld) Electronic Differential [facility] Eosinophils (Bld) [#/Vol] K/uL 0.00 - 0.42 K/uL [facility] Eosinophils/100 WBC (Bld) 0.1 % [facility] Erythrocyte distribution width (RBC) [Ratio] 13.1 % 10.8 - 14.9 % [facility] Hematocrit (Bld) [Volume fraction] 41.1 % 34.9 - 44.3 % [facility] Hemoglobin (Bld) [Mass/Vol] 13.4 g/dL 11.4 - 15.2 g/dL [facility] Immature granulocytes (Bld) [#/Vol] K/uL NINF - 0.08 K/uL [facility] Immature granulocytes/100 WBC (Bld) 0.3 % [facility] Interpretation and review of laboratory results Abnormal [facility] Lymphocytes (Bld) [#/Vol] 0.70 10*3/uL Low 1.16 - 3.51 K/uL [facility] Lymphocytes/100 WBC (Bld) 9.0 % [facility] MCH (RBC) [Entitic mass] 30.9 pg 25.9 - 33.9 pg [facility] MCHC (RBC) [Mass/Vol] 32.6 g/dL 31.4 - 35.9 g/dL [facility] MCV (RBC) [Entitic vol] 94.7 fL 79.6 - 97.7 fL [facility] Monocytes (Bld) [#/Vol] 0.10 10*3/uL Low 0.22 - 0.87 K/uL [facility] Monocytes/100 WBC (Bld) 1.3 % [facility] Neutrophils (Bld) [#/Vol] 6.98 10*3/uL 1.64 - 7.28 K/uL [facility] Nucleated RBC/100 WBC (Bld) [Ratio] 0.0 % [facility] Platelet mean volume (Bld) [Entitic vol] 10.2 fL 8.5 - 12.2 fL [facility] Platelets (Bld) [#/Vol] 258 10*3/uL 150 - 393 K/uL [facility] RBC (Bld) [#/Vol] 4.34 10*6/uL [facility] Segmented neutrophils/100 WBC (Bld) 89.2 % [facility] WBC (Bld) [#/Vol] 7.82 10*3/uL 3.99 - 11. 19 K/uL [facility] CHM 7 - EDon 01-19-2022 Anion gap [Moles/Vol] 13 mmol/L Normal 7-17 [facility] Comment on above: Performed By: #### M FARHAN ALBRIGHT, IPB, LIPDR, HFP #### [facility] (DEFAULT) [address] [place] [address] Chloride [Moles/Vol] 104 mmol/L Normal 98-108 [facility] Comment on above: Performed By: #### M FARHAN ALBRIGHT, IPB, LIPDR, HFP #### [facility] (DEFAULT) [address] [place] [address] CO2 [Moles/Vol] 24 mmol/L Normal 21-31 [facility] Comment on above: Performed By: #### M GO, CHM7, IPB, LIPDR, HFP #### [facility] (DEFAULT) [address] [place] [address] Creatinine [Mass/Vol] 0.78 mg/dL Normal 0.50-1.20 [facility] Comment on above: Performed By: #### M GO, CHM7, IPB, LIPDR, HFP #### U [facility] (DEFAULT) [address] [place] [address] GFR/1.73 sq M.predicted among non-blacks MDRD (S/P/Bld) [Vol rate/Area] 77 mL/min/{1.73_m2} Normal >=60 [facility] Comment on above: Result Comment: Repo rted eGFR is based on the CKD-EPI 2020 equation using creatinine, age, and sex. Performed By: #### M GO, CHM7, IPB, LIPDR, HFP #### [facility] (DEFAULT) [address] [place] [address] Glucose [Mass/Vol] 118 mg/dL High 70-99 [facility] Comment on above: Performed By: #### M GO, CHM7, IPB, LIPDR, HFP #### [facility] (DEFAULT) [address] [place] [address] Osmolality [Osmolality] 290 mosm/kg Normal 278-305 [facility] Comment on above: Performed By: #### M GO, CHM7, IPB, LIPDR, HFP #### [facility] (DEFAULT) [address] [place] [address] Potassium [Moles/Vol] 4.1 mmol/L Normal 3.5-5.0 [facility] Comment on above: Performed By: #### M GO, CHM7, IPB, LIPDR, HFP #### [facility] (DEFAULT) [address] [place] [address] Sodium [Moles/Vol] 137 mmol/L Normal 135-145 [facility] Comment on above: Performed By: #### M GO, CHM7, IPB, LIPDR, HFP #### [facility] (DEFAULT) [address] [place] [address] Urea nitrogen [Mass/Vol] 18 mg/dL Normal 7-25 [facility] Comment on above: Performed By: #### M GO, CHM7, IPB, LIPDR, HFP #### [facility] (DEFAULT) [address] [place] [address] Urea nitrogen/Creatinine [Mass ratio] 23 mg/mg Normal [facility] Comment on above: Performed By: #### M GO, CHM7, IPB, LIPDR, HFP #### [facility] (DEFAULT) [address] [place] [address] Anion gap [Moles/Vol] 13 mmol/L 7 - 17 mmol/L [facility] Chloride [Moles/Vol] 104 mmol/L 98 - 10 8 mmol/L [facility] CO2 [Moles/Vol] 24 mmol/L 21 - 31 mmol/L [facility] Creatinine [Mass/Vol] 0.78 mg/dL 0.50 - 1.20 mg/dL [facility] GFR/1.73 sq M.predicted CKD-EPI (S/P/Bld) [Vol rate/Area] 77 - PINF [facility] Glucose [Mass/Vol] 118 mg/dL High 70 - 99 mg/dL [facility] Osmolality Calc [Osmolality] 290 [facility] Potassium [Moles/Vol] 4.1 mmol/L 3.5 - 5.0 mmol/L [facility] Sodium [Moles/Vol] 137 mmol/L 135 - 145 mmol/L [facility] Urea nitrogen [Mass/Vol] 18 mg/dL 7 - 25 mg/dL [facility] Urea nitrogen/Creatinine [Mass [facility]] [facility] ANALYS Richardson 01-19-2022 CT CEREBRAL PERFUSION ANALYSIS EXAM: CT CEREBRAL PERFUSION ANALYSIS, 01/19/2022 17:33 PM COMPARISON: Same day CT head CLINICAL INDICATIONS: 81 years Female Suspected Stroke; TECHNIQUE: A series of axial multislice computerized tomographic images of the brain are obtained following rapid bolus administration of contrast. FINDINGS: There is mild limitation due to patient motion. [employer] automated software assessment:Perfusion mismatch in the right MCA territory. Estimated infarct core (CBF<30%): 10 mL. Estimated penumbra (perfusion mismatch): 13 mL. Tmax >6s: 23 mL. IMPRESSION: There is an area of core infarct in the right basal ganglia with adjacent penumbra as estimated above. I personally viewed and interpreted these images and I have reviewed and approved this report. Normal [facility] RADIOLOGY RADIOLOGY [facility] Radiology Study observation (narrative) [facility] CT Head limitedon 01-19-2022 RADIOLOGY RADIOLOGY [facility] limitedOrdered By: Varsha Lopez on 01-19-2022 [facility] Work Phone: CT STROKE HEAD-STROKE ALERT ONLYon 01-19-2022 CT STROKE HEAD-STROKE ALERT ONLY EXAM: CT STROKE HEAD-STROKE ALERT ONLY, 01/19/2022 5:25 PM COMPARISON: None. Outside imaging unavailable for review at time of dictation. CLINICAL INDICATIONS: 81 years Female Suspected Stroke; TECHNIQUE: A series of transaxial computerized tomographic images are obtained from base of skull to vertex without intravenous contrast. Axial whole-head and thin section posterior fossa slices are provided. Reformats: Sagittal and coronal. FINDINGS: There is hypodensity of the right anterior basal ganglia consistent with a right MCA territory infarct. Focal hypodensity in the right thalamus may also possibly represent an acute infarct. There is no mass lesion or midline shift. There is no evidence of acute hemorrhage. Diffuse hyperdensity of the intracranial vessels and venous sinuses likely related to recent intravenous contrast administration. There is no extracerebral collection. Ventricles are normal in size and configuration for patient's stated age. Posterior fossa is within normal limits. Calvarium and skull base appear intact. IMPRESSION: 1. Right basal ganglia hypodensity, likely consequence of acute ischemia. 2. Equivocal right thalamic lacunar infarct, age indeterminate. 3. Dense intracranial vessels, secondary to recent intravenous contrast administration. There is otherwise no convincing evidence of acute intracranial hemorrhage. No herniation or hydrocephalus. Findings were discussed with Yovany Manuel MD at 5:30 PM on January 19, 2022. I personally viewed and interpreted these images and I have reviewed and approved this report. Normal [facility] Determination of erythrocyte mean corpuscular volume (MCV)on 01-19-2022 MCV (RBC) [Entitic vol] 94.0 fL 81-99 [facility] Work Phone: GLUCOSE POCon 01-19-2022 Glucose [Mass/Vol] 124 mg/dL High 70 - 99 mg/dL [facility] Interpretation and review of laboratory results Abnormal [facility] Glucose [Mass/Vol] 139 mg/dL High 70 - 99 mg/dL [facility] Interpretation and review of laboratory results Abnormal [facility]ucose Glucometer (BldC) [M ass/Vol]on 01-19-2022 Glucose [Mass/Vol] 122 mg/dL 74-106 [facility] Work Phone: Comment on above: MANAGEMENT OF PATIEN T CARE PER NURSING PROTOCOL HEPATIC FUNCTION PANELon Albumin [Mass/Vol] 4.1 g/dL Normal 3.5-5.0 [facility] Comment on above: Performed By: #### M GO, CHM7, IPB, LIPDR, HFP #### [facility] (DEFAULT) [address] [place] [address] ALP [Catalytic activity/Vol] 79 U/L Normal 32-126 [facility] Comment on above: Performed By: #### M GO, CHM7, IPB, LIPDR, HFP #### U [facility] (DEFAULT) [address] [place] [address]86 ALT [Catalytic activity/Vol] 26 U/L Normal 9-48 [facility] Comment on above: Performed By: #### M GO, CHM7, IPB, LIPDR, HFP #### U [facility] (DEFAULT) [address] [place] [address] AST [Catalytic activity/Vol] 49 U/L High 10-39 [facility] Comment on above: Performed By: #### M GO, CHM7, IPB, LIPDR, HFP #### [facility] (DEFAULT) [address] [place] [address] Bilirubin [Mass/Vol] 1.0 mg/dL Normal <1.5 [facility] Comment on above: Performed By: #### M GO, CHM7, IPB, LIPDR, HFP #### [facility] (DEFAULT) [address] [place] [address] Bilirubin.indirect [Mass/Vol] 0.1 mg/dL Normal <0.3 [facility] Comment on above: Performed By: #### M GO, CHM7, IPB, LIPDR, HFP #### [facility] (DEFAULT) [address] [place] [address] Protein [Mass/Vol] 7.5 g/dL Normal 6.4-8.3 [facility] Comment on above: Performed By: #### M GO, CHM7, IPB, LIPDR, HFP #### [facility] (DEFAULT) [address] [place] [address] Albumin [Mass/Vol] 4.1 g/dL 3.5 - 5.0 g/dL [facility] ALP [Catalytic activity/Vol] 79 U/L 32 - 126 U/L [facility] ALT [Catalytic activity/Vol] 26 U/L 9 - 48 U/L [facility] AST [Catalytic activity/Vol] 49 U/L High 10 - 39 U/L [facility] Bilirubin [Mass/Vol] 1.0 mg/dL NINF - 1.5 mg/dL [facility] Bilirubin.direct [Mass/Vol] 0.1 mg/dL NINF - 0.3 mg/dL [facility] Protein [Mass/Vol] 7.5 g/dL 6.4 - 8.3 g/dL [facility] HIGH SENSITIVITY TROPONIN I - SINGLE ORDERon 01-19-2022 hs-Troponin I 3002 ng/L Critically high <34 [facility] Comment on above: Order Comment: Acute Coronary Syndrome (ACS): Initial Evaluation and Management:[email or web address] Result Comment: Sugg estive of myocardial injury Performed By: #### M GO, CHM7, IPB, LIPDR, HFP #### [facility] (DEFAULT) [address] [place] [address] HIGH SENSITIVITY TROPONIN I - SINGLE ORDEROrdered By: Nick May on 01-19-2022 Interpretation and review of laboratory results Abnormal [facility] Troponin I.cardiac DL <= 0.01 ng/mL [Mass/Vol] 3002 ng/L Critically high NINF - 34 ng/L [facility] Hematocrit Auto (Bld) [Volum e fraction]on 01-19-2022 Hematocrit (Bld) [Volume fraction] 39.1 % 37-47 [facility] Work Phone: INR in Blood by Coagulation assayon 01-19-2022 INR Coag (Bld) [Relative time] 1.0 {INR} [facility] Work Phone: Laboratory - Chemistry and C hemistry - challengeon 01-19-2022 CO2 [Moles/Vol] 29.0 mmol/L 21.0-32.0 [facility] Work Phone: Urea nitrogen/Creatinine [Mass ratio] 22.6 mg/mg 10-20 [facility] Work Phone: Laboratory - Coagulationon 1 03-21-2021 aPTT Coag (Bld) [Time] 24.6 s 24.1-36.2 christopher [facility] Work Phone: PT Coag (PPP) [Time] 13.1 s 11.7-14.[address] [facility] Work Phone: Laboratory - Hematology and Cell countson 01-19-2022 Erythrocyte distribution width (RBC) [Entitic vol] 45.2 fL 35.1-43.9 [facility] Work Phone: Erythrocyte distribution width (RBC) [Ratio] 13.2 % 11.6-14.6 [facility] Work Phone: Immature granulocytes/100 WBC (Bld) 0.400 % 0.0-0.9 [facility] Work Phone: Comment on above: IG% - Immature Granu locytes (promyelocytes, myelocytes and metamyelocytes) > 1% indicates that a LEFT SHIFT is Present. MCH (RBC) [Entitic mass] 30.5 pg 27.0-32.0 [facility] Work Phone: Nucleated RBC/100 WBC (Bld) [Ratio] 0 % 0-5 [facility] Work Phone: MAGNESIUMon 01-19-2022 Magnesium [Mass/Vol] 2.1 mg/dL Normal 1.6-2.6 [facility] Comment on above: Performed By: #### M GO, CHM7, IPB, LIPDR, HFP #### [facility] (DEFAULT) [address] [place] [address] Interpretation and review of laboratory results Normal [facility] Magnesium [Mass/Vol] 2.1 mg/dL 1.6 - 2 .6 mg/dL [facility] MCHC Auto (RBC) [Mass/Vol]on 01-19-2022 MCHC (RBC) [Mass/Vol] 32.5 g/dL 32-36 [facility] Work Phone: No Panel Informationon 01-19 Interpretation and review of laboratory results Abnormal [facility] Estimated Creatinine Clearance Calc 42.95 ml/min [facility] Work Phone: Estimated GFR (MDRD) Amer 84 mL/min >60 [facility] Work Phone: Comment on above: GFR Calc Estimated GFR (MDRD) Non-Af Amer 69 mL/min >60 [facility] Work Phone: Comment on above: Non- GFR Calc Troponin I High Sensitivity 3399 pg/mL 3.0-54.0 [facility] Work Phone: Comment on above: Critical Result(s) C alled at: 14:30:52 01/19/2022 by: marine ashby. Results read back by same. Please Note: New Test Units and Gender Specific Reference Ranges. For more information see Policy Stat Procedure Ennice High Sensitivity Troponin (TNIH) and attachments. PTINR-STROKEon 01-19-2022 INR Coag (PPP) [Relative time] 1.0 {INR} Normal 0.9-1.1 [facility] Comment on above: Performed By: #### M GO, CHM7, IPB, LIPDR, HFP #### [facility] (DEFAULT) [address] [place] [address] PT Coag (PPP) [Time] 13.3 s Normal 11.9-14.2 [facility] Comment on above: Performed By: #### M GO, CHM7, IPB, LIPDR, HFP #### [facility] (DEFAULT) [address] [place] [address] INR Coag (Bld) [Relative time] 1.0 {INR} 0.9 - 1.1 [facility] Interpretation and review of laboratory results [facility] Coag (PPP) [Time] 13.3 s [facility] PTTon 01-19-2022 aPTT Coag (Bld) [Time] 23.6 s Low 24.0-34.3 [facility] Comment on above: Performed By: #### M GO, CHM7, IPB, LIPDR, HFP #### [facility] (DEFAULT) [address] [address] PTTOrdered By: Uriel de la garza on 01-19-2022 aPTT Coag (PPP) [Time] 23.6 s Low [facility] Interpretation and review of laboratory results Abnormal [facility] Platelets bldon 01-19-2022 Platelets (Bld) [#/Vol] 285 10*3/uL 150-450 [facility] Work Phone: Serum or plasma calcium jasmin urement (mass/volume)on 01-19-2022 Calcium [Mass/Vol] 9.5 mg/dL 8.5-10.1 [facility] Work Phone: Serum or plasma creatinine m easurement (mass/volume)on 01-19-2022 Creatinine [Mass/Vol] 0.84 mg/dL 0.55-1.02 [facility] Work Phone: Comment on above: The validity of the calculated GFR & GFRAA in patients over 70 years has not been determined. Clinical correlation is essential. Serum or plasma urea nitroge n measurement (mass/volume)on 01-19-2022 Urea nitrogen [Mass/Vol] 19 mg/dL 7-18 [facility] Work Phone: TOXICOLOGY SCREEN URINE - UD RGOrdered By: Jose D Foster on 01-19-2022 Barbiturates Ql (U) Negative [facility] Cannabinoids Screen Ql (U) Negative [facility] Drugs identified Screen Nom (U) Negative Negative [facility] Interpretation and review of laboratory results Normal [facility] TOXICOLOGY SCREEN URINE - UD RGon 01-19-2022 Barbiturates Negative Normal Cutoff: 200 ng/mL [facility] Comment on above: Order Comment: For M edical Purposes Only. Nonforensic screen results are considered presumptive and no confirmatory testing will follow. Drugs are detected by immunoassay or Liquid Chromatography Mass Spectrometry (LC-MS/MS). The LC-MS/MS test was developed and its performance characteristics determined by the Toxicology Laboratory at [facility]. It has not been cleared or approved by the FDA. The laboratory is regulated under CLIA as qualified to perform high-complexity testing. This test is used for clinical purposes and should not be regarded as investigational or for research.The following drugs with their lowest level of detection in ng/ml(LOD) are included in this screen:6 Monoacetylmorphine(300), 7 Aminoflunitrazepam(25), 7 Aminoclonazepam(50),7 hydroxymitragynine (100),Alphahydroxymidazolam (200), Alphahydrozyalprazolam(200), Alprazolam(50), Amitriptyline(50), Amphetamine(250), Atenolol(500),Benzoylecgonine(50), Buprenorphine(100), Bupropion(25),Caffeine(77286),Chlordiazepoxide(50), Chlorpheniramine(100), Chlorpromazine(50), Citalopram(100), Clonazepam(200), Cocaine(25),Codeine(200), Cotinine(500),Desipramine(50), Desmethyldoxepin(100), Dextromethorphan(100), Diazepam(100), Dihydrocodeine(100), Diltazem(50), Diphenhydramine(100),Doxepin(100),EDDP/methadone(100), Ephedrine/Pseudoephedrine(100),Fentanyl(25),Flunitrazepam(100) ,Fluoxetine(200), Flurazepam(50),Gabapentin(1500), Haloperidol(25), Hydrocodone(100), Hydromorphone(200), Imipramine(50), Ketamine(25), Lidocaine(25),Lorazepam(100), Lysergide(LSD)(25),Maprotiline(200), MDA(250), MDMA(250), Meperidine(50),Midazolam (200),Methadone(50), Methamphetamine(500), Methylphenidate(50), Metoprolol(50), Morphine(200),Nalbuphine(50), Naloxone(200), Norbuprenorphine(300), Nordiazepam(100), Norfentanyl(50),Noroxycodone (100), Norpropoxyphene(50), Nortriptyline(50), Olanzapine(200),Oxazepam(200),Oxycodone(100),Oxymorphone(200), Phencyclidine(PCP)(25), Pheniramine(25), Pregabalin(1500), Promethazine(50), Propoxyphene(100), Propanolol(50), Quetiapine(25), Quinidine(500), Ranitidine(500), Risperidone(100), Sertraline(50),Temazepam(100), Thioridazine(100), Tramadol(50), Trazodone(25), Triazolam(100), Trifluoperazine (100),Venlafaxine(50), Verapamil(100), Zolpidem(200) Performed By: #### L [id number], [id number] #### [facility] (DEFAULT) [address] [place] [address] Cannabinoids Screen Ql (U) Negative Normal Cutoff: 50 ng/mL [facility] Comment on above: Order Comment: For M edical Purposes Only. Nonforensic screen results are considered presumptive and no confirmatory testing will follow. Drugs are detected by immunoassay or Liquid Chromatography Mass Spectrometry (LC-MS/MS). The LC-MS/MS test was developed and its performance characteristics determined by the Toxicology Laboratory at [facility]. It has not been cleared or approved by the FDA. The laboratory is regulated under CLIA as qualified to perform high-complexity testing. This test is used for clinical purposes and should not be regarded as investigational or for research.The following drugs with their lowest level of detection in ng/ml(LOD) are included in this screen:6 Monoacetylmorphine(300), 7 Aminoflunitrazepam(25), 7 Aminoclonazepam(50),7 hydroxymitragynine (100),Alphahydroxymidazolam (200), Alphahydrozyalprazolam(200), Alprazolam(50), Amitriptyline(50), Amphetamine(250), Atenolol(500),Benzoylecgonine(50), Buprenorphine(100), Bupropion(25),Caffeine(01671),Chlordiazepoxide(50), Chlorpheniramine(100), Chlorpromazine(50), Citalopram(100), Clonazepam(200), Cocaine(25),Codeine(200), Cotinine(500),Desipramine(50), Desmethyldoxepin(100), Dextromethorphan(100), Diazepam(100), Dihydrocodeine(100), Diltazem(50), Diphenhydramine(100),Doxepin(100),EDDP/methadone(100), Ephedrine/Pseudoephedrine(100),Fentanyl(25),Flunitrazepam(100) ,Fluoxetine(200), Flurazepam(50),Gabapentin(1500), Haloperidol(25), Hydrocodone(100), Hydromorphone(200), Imipramine(50), Ketamine(25), Lidocaine(25),Lorazepam(100), Lysergide(LSD)(25),Maprotiline(200), MDA(250), MDMA(250), Meperidine(50),Midazolam (200),Methadone(50), Methamphetamine(500), Methylphenidate(50), Metoprolol(50), Morphine(200),Nalbuphine(50), Naloxone(200), Norbuprenorphine(300), Nordiazepam(100), Norfentanyl(50),Noroxycodone (100), Norpropoxyphene(50), Nortriptyline(50), Olanzapine(200),Oxazepam(200),Oxycodone(100),Oxymorphone(200), Phencyclidine(PCP)(25), Pheniramine(25), Pregabalin(1500), Promethazine(50), Propoxyphene(100), Propanolol(50), Quetiapine(25), Quinidine(500), Ranitidine(500), Risperidone(100), Sertraline(50),Temazepam(100), Thioridazine(100), Tramadol(50), Trazodone(25), Triazolam(100), Trifluoperazine (100),Venlafaxine(50), Verapamil(100), Zolpidem(200) Performed By: #### L [id number], [id number] #### [facility] (DEFAULT) [address] [place] [address] Drugs Detected Urine Tox Negative Normal Negative [facility] Comment on above: Order Comment: For M edical Purposes Only. Nonforensic screen results are considered presumptive and no confirmatory testing will follow. Drugs are detected by immunoassay or Liquid Chromatography Mass Spectrometry (LC-MS/MS). The LC-MS/MS test was developed and its performance characteristics determined by the Toxicology Laboratory at [facility]. It has not been cleared or approved by the FDA. The laboratory is regulated under CLIA as qualified to perform high-complexity testing. This test is used for clinical purposes and should not be regarded as investigational or for research.The following drugs with their lowest level of detection in ng/ml(LOD) are included in this screen:6 Monoacetylmorphine(300), 7 Aminoflunitrazepam(25), 7 Aminoclonazepam(50),7 hydroxymitragynine (100),Alphahydroxymidazolam (200), Alphahydrozyalprazolam(200), Alprazolam(50), Amitriptyline(50), Amphetamine(250), Atenolol(500),Benzoylecgonine(50), Buprenorphine(100), Bupropion(25),Caffeine(69435),Chlordiazepoxide(50), Chlorpheniramine(100), Chlorpromazine(50), Citalopram(100), Clonazepam(200), Cocaine(25),Codeine(200), Cotinine(500),Desipramine(50), Desmethyldoxepin(100), Dextromethorphan(100), Diazepam(100), Dihydrocodeine(100), Diltazem(50), Diphenhydramine(100),Doxepin(100),EDDP/methadone(100), Ephedrine/Pseudoephedrine(100),Fentanyl(25),Flunitrazepam(100) ,Fluoxetine(200), Flurazepam(50),Gabapentin(1500), Haloperidol(25), Hydrocodone(100), Hydromorphone(200), Imipramine(50), Ketamine(25), Lidocaine(25),Lorazepam(100), Lysergide(LSD)(25),Maprotiline(200), MDA(250), MDMA(250), Meperidine(50),Midazolam (200),Methadone(50), Methamphetamine(500), Methylphenidate(50), Metoprolol(50), Morphine(200),Nalbuphine(50), Naloxone(200), Norbuprenorphine(300), Nordiazepam(100), Norfentanyl(50),Noroxycodone (100), Norpropoxyphene(50), Nortriptyline(50), Olanzapine(200),Oxazepam(200),Oxycodone(100),Oxymorphone(200), Phencyclidine(PCP)(25), Pheniramine(25), Pregabalin(1500), Promethazine(50), Propoxyphene(100), Propanolol(50), Quetiapine(25), Quinidine(500), Ranitidine(500), Risperidone(100), Sertraline(50),Temazepam(100), Thioridazine(100), Tramadol(50), Trazodone(25), Triazolam(100), Trifluoperazine (100),Venlafaxine(50), Verapamil(100), Zolpidem(200) Performed By: #### L [id number], [id number] #### [facility] (DEFAULT) [address] [address] Thin prep Papanicolaou smear with manual screeningon 01-19-2022 Thin prep Papanicolaou smear with manual screening 08 14-15 [facility] Work Phone: URINE DIPSTICK; REFLEX MICRO SCOPY; REFLEX CULTURE PERFORMABLEon 01-19-2022 Appearance (U) Clear Normal Clear [facility] Comment on above: Performed By: #### L [id number], [id number] #### [facility] (DEFAULT) [address] [address] Blood Urine Small Abnormal Negative [facility] Comment on above: Performed By: #### L [id number], [id number] #### [facility] (DEFAULT) [address] [address] Color (U) Yellow Normal Yellow [facility] Comment on above: Performed By: #### L [id number], [id number] #### [facility] (DEFAULT) [address] [address] Glucose Ql (U) Negative Normal Negative [facility] Comment on above: Performed By: #### L [id number], [id number] #### [facility] (DEFAULT) [address] [address] Ketones Ql (U) Negative Normal Negative [facility] Comment on above: Performed By: #### L [id number], [id number] #### [facility] (DEFAULT) [address] [address] Leukocyte esterase Test strip Ql (U) Negative Normal Negative [facility] Comment on above: Performed By: #### L [id number], [id number] #### [facility] (DEFAULT) [address] [place] [address] Nitrites Urine Negative Normal Negative [facility] Comment on above: Performed By: #### L [id number], [id number] #### [facility] (DEFAULT) [address] [place] [address] pH (U) 7.5 [pH] Abnormal 5.0-7.0 [facility] Comment on above: Performed By: #### L [id number], [id number] #### [facility] (DEFAULT) [address] [place] [address] Protein Urine Negative Normal Negative [facility] Comment on above: Performed By: #### L [id number], [id number] #### [facility] (DEFAULT) [address] [place] [address] Specific [place] Urine 1.010 Normal >1.00 1-<1.03 5 [facility] Comment on above: Performed By: #### L [id number], [id number] #### [facility] (DEFAULT) [address] [place] [address] Urobilinogen Urine 0.2 E.U./dL Normal 0.2 E.U/d L, 1.0 E.U/dL [facility] Comment on above: Performed By: #### L [id number], [id number] #### [facility] (DEFAULT) [address] [place] [address] Appearance (U) Clear Clear [facility] Color (U) Yellow Yellow [facility] Glucose Test strip (U) [Mass/Vol] Negative Negative [facility] Interpretation and review of laboratory results Abnormal [facility] Ketones (U) [Mass/Vol] Negative Negative [facility] Leukocyte esterase Test strip Ql (U) Negative Negative [facility] Nitrite Ql (U) [facility] pH (U) 7.5 [pH] Abnormal 5.0 - 7.0 [facility] Protein (U) [Mass/Vol] Negative Negative [facility] RBC (U) [#/Vol] Small Abnormal Negative [facility] Specific gravity (U) [Rel density] 1.010 1.001 - PINF [facility] Urobilinogen (U) [Mass/Vol] 0.2 E.U./dL 0.2 E.U/dL, 1.0 E.U/dL [facility] URINE MICROSCOPIC WITH REFLE X TO CULTUREon 01-19-2022 Bacteria ABSENT Normal ABSENT [facility] Comment on above: Performed By: #### M JOSE RAMON, CHM7, IPB, LIPDR, HFP #### [facility] (DEFAULT) [address] [place] [address] RBC Urine 0-2 Normal 0-2 [facility] Comment on above: Performed By: #### Sesar GO, CHM7, IPB, LIPDR, HFP #### [facility] (DEFAULT) [address] [place] [address] Squamous/Epithelial Cells ABSENT Normal 1/hpf = 1+, 2-5/hpf = 2+, 0/hpf = 0+, ABSENT [facility] Comment on above: Performed By: #### M GO, CHM7, IPB, LIPDR, HFP #### [facility] (DEFAULT) [address] [place] [address] WBC Urine 0-5 Normal 0-5 [facility] Comment on above: Performed By: #### M GO, CHM7, IPB, LIPDR, HFP #### [facility] (DEFAULT) [address] [place] [address] Bacteria LM Ql (Urine sed) ABSENT ABSENT [facility] Epithelial cells.squamous LM Ql (Urine sed) ABSENT 1/hpf = 1+, 2-5/hpf = 2+, 0/hpf = 0+, ABSENT [facility] Interpretation and review of laboratory results Normal [facility] RBC LM.HPF (Urine sed) [#/Area] 0-2 [facility] WBC LM.HPF (Urine sed) [#/Area] 0-5 [facility] Basophil percentageon 2021 Bilirubin [Mass/Vol] 0.80 mg/dL 0.20-1.00 [facility] Work Phone: Comment on above: For patients on eltr ombopag therapy, use of Dimension Ennice TBIL is not recommended. Chloride [Moles/Vol] 108 mmol/L 98-107 [facility] Work Phone: Cholesterol [Mass/Vol] 188 mg/dL <200 [facility] Work Phone: Comment on above: <200 mg/dL Desirable 200-240 mg/dL Borderline >240 mg/dL High Risk Glucose [Mass/Vol] 106 mg/dL 74-106 [facility] Work Phone: Comment on above: Fasting Glucose resu lt from 100 to 125 mg/dL suggests IMPAIRED HOMEOSTASIS per A.D.A. criteria. Potassium [Moles/Vol] 3.8 mmol/L 3.5-5.1 [facility] Work Phone: Protein [Mass/Vol] 7.6 g/dL 6.4-8.2 [facility] Work Phone: Sodium [Moles/Vol] 142 mmol/L 136-145 [facility] Work Phone: Triglyceride [Mass/Vol] 98 mg/dL <199 [facility] Work Phone: Comment on above: The drugs N-Acetylcy steine and Metamizole may falsely depress this assay.Serum Triglycerides Reference Interval Normal <150 mg/dL Borderline high 150 - 199 mg/dL High 200 - 499 mg/dL Very High > or = 500 mg/dL Laboratory - Chemistry and C hemistry - challengeon 12-30-2021 ALP [Catalytic activity/Vol] 80 U/L 45-117 [facility] Work Phone: ALT [Catalytic activity/Vol] 30 U/L 13-56 [facility] Work Phone: CO2 [Moles/Vol] 27.0 mmol/L 21.0-32.0 [facility] Work Phone: Globulin (S) [Mass/Vol] 3.9 g/dL 2.2-4.2 [facility] Work Phone: Urea nitrogen/Creatinine [Mass ratio] 25.4 mg/mg 12-29 [facility] Work Phone: No Panel Informationon 12-30 Estimated GFR (MDRD) Amer 81 mL/min >60 [facility] Work Phone: Comment on above: GFR Calc Estimated GFR (MDRD) Non-Af Amer 67 mL/min >60 [facility] Work Phone: Comment on above: Non- GFR Calc Parathyroid Hormone (Intact) 85.8 pg/mL 18.4-80.1 [facility] Work Phone: Thyroid Stimulating Hormone (TSH) 0.80 uIU/mL 0.358-3.74 [facility] Work Phone: Vitamin D 25-Hydroxy 46.9 ng/mL [facility] Work Phone: Comment on above: Vitamin D 25(OH) Sta tus Range Deficiency <20 ng/mL (50nmol/L) Insufficiency 20 - 30 ng/mL (50 - 75 nmol/L) Sufficiency 30 - 100 ng/mL (75 - 250 nmol/L) Toxicity >100 ng/mL (>250 nmol/L) Serum or plasma albumin jasmin urement (mass/volume)on 12-30-2021 Albumin [Mass/Vol] 3.7 g/dL 3.2-5.0 [facility] Work Phone: Serum or plasma albumin/glob ulin mass ratioon 12-30-2021 Albumin/Globulin [Mass ratio] 0.9 {ratio} 0.9-2.4 [facility] Work Phone: Serum or plasma calcium jasmin urement (mass/volume)on 12-30-2021 Calcium [Mass/Vol] 9.3 mg/dL 8.5-10.1 [facility] Work Phone: Serum or plasma cholesterol in HDL measurement (mass/volume)on 12-30-2021 Cholesterol in HDL [Mass/Vol] 69 mg/dL >40 [facility] Work Phone: Comment on above: The drugs N-Acetylcy steine and Metamizole may falsely depress this assay. Reference Range HDL <40 mg/dL Low HDL Cholesterol HDL >or= 60 mg/dL High HDL Cholesterol Serum or plasma cholesterol in VLDL measurement (mass/volume)on 12-30-2021 Cholesterol in VLDL [Mass/Vol] 20 mg/dL 5-40 [facility] Work Phone: Serum or plasma creatinine m easurement (mass/volume)on 12-30-2021 Creatinine [Mass/Vol] 0.86 mg/dL 0.55-1.02 [facility] Work Phone: Comment on above: The validity of the calculated GFR & GFRAA in patients over 70 years has not been determined. Clinical correlation is essential. Serum or plasma low density lipoprotein (LDL) cholesterol measurement (mass/volume)on 12-30-2021 Cholesterol in LDL [Mass/Vol] 99 mg/dL 0-130 [facility] Work Phone: Serum or plasma urea nitroge n measurement (mass/volume)on 12-30-2021 Urea nitrogen [Mass/Vol] 22 mg/dL 7-18 [facility] Work Phone: Thin prep Papanicolaou smear with manual screeningon 12-30-2021 Thin prep Papanicolaou smear with manual screening 26 U/L 15-37 [facility] Work Phone: Thin prep Papanicolaou smear with manual screening 7 5-15 [facility] Work Phone: Thin prep Papanicolaou smear with manual screening 30.3 mg/L NO RANGE EST. [facility] Work Phone: Absolute lymphocyte counton 11-12-2021 Lymphocytes Auto (Unsp spec) [#/Vol] 2.04 10*3/uL 0.83-4.51 [facility] Work Phone: Basophil percentageon 2021 WBC (Bld) [#/Vol] 9.8 10*3/uL 4.4-11.0 [facility] Work Phone: [phone] Basophils/100 WBC (Bld) 0.6 % 0-1 [facility] Work Phone: [phone] Chloride [Moles/Vol] 106 mmol/L 98-107 [facility]: Eosinophils/100 WBC (Bld) 2.5 % 0-5 [facility] Work Phone: Glucose [Mass/Vol] 100 mg/dL 74-106 [facility] Work Phone: Comment on above: Fasting Glucose resu lt from 100 to 125 mg/dL suggests IMPAIRED HOMEOSTASIS per A.D.A. criteria. Lactate [Moles/Vol] 1.2 mmol/L 0.4-2.0 [facility]: Neutrophils (Bld) [#/Vol] 7.1 10*3/uL 2.0-7.7 [facility] Work Phone: Neutrophils/100 WBC (Bld) 67.6 % 47-70 [facility] Work Phone: Potassium [Moles/Vol] 3.6 mmol/L 3.5-5.1 [facility] Work Phone: Sodium [Moles/Vol] 141 mmol/L 136-145 [facility] Work Phone: Blood erythrocytes count (nu mber/volume)on 11-12-2021 RBC (Bld) [#/Vol] 4.03 10*6/uL 4.2-5.4 [facility] Work Phone: Blood hemoglobin measurement (mass/volume)on 11-12-2021 Hemoglobin (Bld) [Mass/Vol] 12.4 g/dL 12.0-15.0 [facility] Work Phone: Blood lymphocytes/100 leukoc yteson 11-12-2021 Lymphocytes/100 WBC (Bld) 19.4 % 19-41 [facility] Work Phone: Blood monocytes/100 leukocyt eson 11-12-2021 Monocytes/100 WBC (Bld) 9.6 % 0-10 [facility] Work Phone: Blood platelet mean volumeon 11-12-2021 Platelet mean volume (Bld) [Entitic vol] 9.5 fL 6.2-12.0 [facility] Work Phone: Determination of erythrocyte mean corpuscular volume (MCV)on 11-12-2021 MCV (RBC) [Entitic vol] 93.8 fL 81-99 [facility] Work Phone: Hematocrit Auto (Bld) [Volum e fraction]on 11-12-2021 Hematocrit (Bld) [Volume fraction] 37.8 % 37-47 [facility] Work Phone: INR in Blood by Coagulation assayon 11-12-2021 INR Coag (Bld) [Relative time] 1.0 {INR} [facility] Work Phone: Laboratory - Chemistry and C hemistry - challengeon 11-12-2021 CO2 [Moles/Vol] 27.0 mmol/L 21.0-32.0 [facility] Work Phone: Urea nitrogen/Creatinine [Mass ratio] 23.1 mg/mg 10-20 [facility] Work Phone: Laboratory - Coagulationon 0 11-12-2021 aPTT Coag (Bld) [Time] 27.0 s [facility].1-[facility] [facility] Work Phone: PT Coag (PPP) [Time] 13.2 s 11.7-14.[address] [facility] Work Phone: Laboratory - Hematology and Cell countson 11-12-2021 Erythrocyte distribution width (RBC) [Entitic vol] 44.3 fL 35.1-43.9 [facility] Work Phone: Erythrocyte distribution width (RBC) [Ratio] 12.8 % 11.6-14.6 [facility] Work Phone: MCH (RBC) [Entitic mass] 30.8 pg 27.0-32.0 [facility] Work Phone: Immature granulocytes/100 WBC (Bld) 0.300 % 0.0-0.9 [facility] Work Phone: Comment on above: IG% - Immature Granu locytes (promyelocytes, myelocytes and metamyelocytes) > 1% indicates that a LEFT SHIFT is Present. Nucleated RBC/100 WBC (Bld) [Ratio] 0 % 0-5 [facility] Work Phone: MCHC Auto (RBC) [Mass/Vol]on 11-12-2021 MCHC (RBC) [Mass/Vol] 32.8 g/dL 32-36 [facility] Work Phone: No Panel Informationon 11-12 Estimated Creatinine Clearance Calc 29.21 ml/min [facility] Work Phone: Estimated GFR (MDRD) Amer 63 mL/min >60 [facility] Work Phone: Comment on above: GFR Calc Estimated GFR (MDRD) Non-Af Amer 52 mL/min >60 [facility] Work Phone: Comment on above: Non- GFR Calc Platelets bldon 11-12-2021 Platelets (Bld) [#/Vol] 359 10*3/uL 150-450 [facility] Work Phone: Serum or plasma calcium jasmin urement (mass/volume)on 11-12-2021 Calcium [Mass/Vol] 9.7 mg/dL 8.5-10.1 [facility] Work Phone: Serum or plasma creatinine m easurement (mass/volume)on 11-12-2021 Creatinine [Mass/Vol] 1.08 mg/dL 0.55-1.02 [facility] Work Phone: Comment on above: The validity of the calculated GFR & GFRAA in patients over 70 years has not been determined. Clinical correlation is essential. Serum or plasma urea nitroge n measurement (mass/volume)on 11-12-2021 Urea nitrogen [Mass/Vol] 25 mg/dL 7-18 [facility] Work Phone: Thin prep Papanicolaou smear with manual screeningon 11-12-2021 Thin prep Papanicolaou smear with manual screening 8 5-15 [facility] Work Phone: Absolute lymphocyte counton 11-07-2021 Lymphocytes Auto (Unsp spec) [#/Vol] 2.46 10*3/uL 0.83-4.51 [facility] Work Phone: Basophil percentageon 2021 Basophils/100 WBC (Bld) 0.2 % 0-1 [facility] Work Phone: Chloride [Moles/Vol] 110 mmol/L 98-107 [facility] Work Phone: Eosinophils/100 WBC (Bld) 2.7 % 0-5 [facility] Work Phone: Glucose [Mass/Vol] 92 mg/dL 74-106 [facility] Work Phone: Neutrophils (Bld) [#/Vol] 4.4 10*3/uL 2.0-7.7 [facility] Work Phone: [phone] Neutrophils/100 WBC (Bld) 55.6 % 47-70 [facility] Work Phone: Potassium [Moles/Vol] 3.7 mmol/L 3.5-5.1 [facility] Work Phone: Sodium [Moles/Vol] 143 mmol/L 136-145 [facility] Work Phone: WBC (Bld) [#/Vol] 8.0 10*3/uL 4.4-11.0 [facility] Work Phone: Blood erythrocytes count (nu mber/volume)on 11-07-2021 RBC (Bld) [#/Vol] 3.88 10*6/uL 4.2-5.4 [facility] Work [facility]: Blood hemoglobin measurement (mass/volume)on 11-07-2021 Hemoglobin (Bld) [Mass/Vol] 11.8 g/dL 12.0-15.0 [facility] Work Phone: Blood lymphocytes/100 leukoc yteson 11-07-2021 Lymphocytes/100 WBC (Bld) 30.7 % 19-41 [facility] Work Phone: Blood monocytes/100 leukocyt eson 11-07-2021 Monocytes/100 WBC (Bld) 10.6 % 0-10 [facility] Work Phone: Blood platelet mean volumeon 11-07-2021 Platelet mean volume (Bld) [Entitic vol] 10.0 fL 6.2-12.0 [facility] Work Phone: Determination of erythrocyte mean corpuscular volume (MCV)on 11-07-2021 MCV (RBC) [Entitic vol] 93.6 fL 81-99 [facility] Work Phone: Hematocrit Auto (Bld) [Volum e fraction]on 11-07-2021 Hematocrit (Bld) [Volume fraction] 36.3 % 37-47 [facility] Work Phone: Laboratory - Chemistry and C hemistry - challengeon 11-07-2021 CO2 [Moles/Vol] 27.0 mmol/L 21.0-32.0 [facility] Work Phone: Urea nitrogen/Creatinine [Mass ratio] 23.2 mg/mg 10-20 [facility] Work Phone: Laboratory - Hematology and Cell countson 11-07-2021 Erythrocyte distribution width (RBC) [Entitic vol] 44.9 fL 35.1-43.9 [facility] Work Phone: Erythrocyte distribution width (RBC) [Ratio] 13.1 % 11.6-14.6 [facility] Work Phone: Immature granulocytes/100 WBC (Bld) 0.200 % 0.0-0.9 [facility] Work Phone: Comment on above: IG% - Immature Granu locytes (promyelocytes, myelocytes and metamyelocytes) > 1% indicates that a LEFT SHIFT is Present. MCH (RBC) [Entitic mass] 30.4 pg 27.0-32.0 [facility] Work Phone: Nucleated RBC/100 WBC (Bld) [Ratio] 0 % 0-5 [facility] Work Phone: MCHC Auto (RBC) [Mass/Vol]on 11-07-2021 MCHC (RBC) [Mass/Vol] 32.5 g/dL 32-36 [facility] Work Phone: No Panel Informationon 11-07 Estimated Creatinine Clearance Calc 38.02 ml/min [facility] Work Phone: Estimated GFR (MDRD) Amer 82 mL/min >60 [facility] Work Phone: Comment on above: GFR Calc Estimated GFR (MDRD) Non-Af Amer 67 mL/min >60 [facility] Work Phone: Comment on above: Non- GFR Calc Troponin I High Sensitivity 6 pg/mL 3.0-54.0 [facility] Work Phone: Comment on above: Please Note: New Pam t Units and Gender Specific Reference Ranges. For more information see Policy Stat Procedure Ennice High Sensitivity Troponin (TNIH) and attachments. Platelets bldon 11-07-2021 Platelets (Bld) [#/Vol] 282 10*3/uL 150-450 [facility] Work Phone: Serum or plasma calcium jasmin urement (mass/volume)on 11-07-2021 Calcium [Mass/Vol] 8.5 mg/dL 8.5-10.1 [facility] Work Phone: Serum or plasma creatinine m easurement (mass/volume)on 11-07-2021 Creatinine [Mass/Vol] 0.86 mg/dL 0.55-1.02 [facility] Work Phone: Comment on above: The validity of the calculated GFR & GFRAA in patients over 70 years has not been determined. Clinical correlation is essential. Serum or plasma urea nitroge n measurement (mass/volume)on 11-07-2021 Urea nitrogen [Mass/Vol] 20 mg/dL 7-18 [facility] Work Phone: Thin prep Papanicolaou smear with manual screeningon 11-07-2021 Thin prep Papanicolaou smear with manual screening 6 5-15 [facility] Work Phone: Absolute lymphocyte counton 11-05-2021 Lymphocytes Auto (Unsp spec) [#/Vol] 2.98 10*3/uL 0.83-4.51 [facility] Work Phone: Basophil percentageon 2021 Basophil percentage 0 SEEN /hpf 0-5 [facility] Work Phone: Basophils/100 WBC (Bld) 0.3 % 0-1 [facility] Work Phone: Chloride [Moles/Vol] 107 mmol/L 98-107 [facility] Work Phone: Eosinophils/100 WBC (Bld) 1.0 % 0-5 [facility] Work Phone: Glucose [Mass/Vol] 187 mg/dL 74-106 [facility] Work Phone: Comment on above: Fasting Glucose resu lt greater than or equal to 126 mg/dL suggests DIABETES MELLITUS per A.D.A. criteria. Neutrophils (Bld) [#/Vol] 10.7 10*3/uL 2.0-7.7 [facility] Work Phone: Neutrophils/100 WBC (Bld) 69.9 % 47-70 [facility] Work Phone: Potassium [Moles/Vol] 3.6 mmol/L 3.5-5.1 [facility] Work Phone: Sodium [Moles/Vol] 138 mmol/L 136-145 [facility] Work Phone: WBC (Bld) [#/Vol] 15.4 10*3/uL 4.4-11.0 [facility] Work Phone: Bilirubin Test strip Ql (U)o n 11-05-2021 Bilirubin Ql (U) Negative Negative [facility] Work Phone: Blood erythrocytes count (nu mber/volume)on 11-05-2021 RBC (Bld) [#/Vol] 4.04 10*6/uL 4.2-5.4 [facility] Work Phone: Blood hemoglobin measurement (mass/volume)on 11-05-2021 Hemoglobin (Bld) [Mass/Vol] 12.4 g/dL 12.0-15.0 [facility] Work Phone: Blood lymphocytes/100 leukoc yteson 11-05-2021 Lymphocytes/100 WBC (Bld) 19.4 % 19-41 [facility] Work Phone: [phone] Blood monocytes/100 leukocyt eson 11-05-2021 Monocytes/100 WBC (Bld) 9.0 % 0-10 [facility] Work Phone: Blood platelet mean volumeon 11-05-2021 Platelet mean volume (Bld) [Entitic vol] 9.9 fL 6.2-12.0 [facility] Work Phone: Determination of erythrocyte mean corpuscular volume (MCV)on 11-05-2021 MCV (RBC) [Entitic vol] 93.3 fL 81-99 [facility] Work Phone: Hematocrit Auto (Bld) [Volum e fraction]on 11-05-2021 Hematocrit (Bld) [Volume fraction] 37.7 % 37-47 [facility] Work Phone: Ketones Test strip Ql (U)on 11-05-2021 Ketones Ql (U) Negative Negative [facility] Work Phone: Laboratory - Chemistry and C hemistry - challengeon 11-05-2021 CO2 [Moles/Vol] 23.0 mmol/L 21.0-32.0 [facility] Work Phone: Natriuretic peptide B (Bld) [Mass/Vol] 282.2 pg/mL 0-100 [facility] Work Phone: Urea nitrogen/Creatinine [Mass ratio] 18.1 mg/mg 10-20 [facility] Work Phone: Laboratory - Hematology and Cell countson 11-05-2021 Erythrocyte distribution width (RBC) [Entitic vol] 43.8 fL 35.1-43.9 [facility] Work Phone: Erythrocyte distribution width (RBC) [Ratio] 12.8 % 11.6-14.6 [facility] Work Phone: Immature granulocytes/100 WBC (Bld) 0.400 % 0.0-0.9 [facility] Work Phone: Comment on above: IG% - Immature Granu locytes (promyelocytes, myelocytes and metamyelocytes) > 1% indicates that a LEFT SHIFT is Present. MCH (RBC) [Entitic mass] 30.7 pg 27.0-32.0 [facility] Work Phone: Nucleated RBC/100 WBC (Bld) [Ratio] 0 % 0-5 [facility] Work Phone: MCHC Auto (RBC) [Mass/Vol]on 11-05-2021 MCHC (RBC) [Mass/Vol] 32.9 g/dL 32-36 [facility] Work Phone: Mucus LM Ql (Urine sed)on Mucus Ql (Urine sed) 0 SEEN /hpf [facility] Work Phone: Nitrite Test strip Ql (U)on 11-05-2021 Nitrite Ql (U) Negative Negative [facility] Work Phone: No Panel Informationon 11-05 Estimated Creatinine Clearance Calc 35.16 ml/min [facility] Work Phone: Estimated GFR (MDRD) Amer 74 mL/min >60 [facility] Work Phone: Comment on above: GFR Calc Estimated GFR (MDRD) Non-Af Amer 61 mL/min >60 [facility] Work Phone: Comment on above: Non- GFR Calc Troponin I High Sensitivity 7 pg/mL 3.0-54.0 [facility] Work Phone: Comment on above: Please Note: New Pam t Units and Gender Specific Reference Ranges. For more information see Policy Stat Procedure Ennice High Sensitivity Troponin (TNIH) and attachments. Platelets bldon 11-05-2021 Platelets (Bld) [#/Vol] 260 10*3/uL 150-450 [facility] Work Phone: Protein Test strip Ql (U)on 11-05-2021 Protein Ql (U) Negative Negative [facility] Work Phone: Serum or plasma calcium jasmin urement (mass/volume)on 11-05-2021 Calcium [Mass/Vol] 9.1 mg/dL 8.5-10.1 [facility] Work Phone: Serum or plasma creatinine m easurement (mass/volume)on 11-05-2021 Creatinine [Mass/Vol] 0.94 mg/dL 0.55-1.02 [facility] Work Phone: Comment on above: The validity of the calculated GFR & GFRAA in patients over 70 years has not been determined. Clinical correlation is essential. Serum or plasma urea nitroge n measurement (mass/volume)on 11-05-2021 Urea nitrogen [Mass/Vol] 17 mg/dL 7-18 [facility] Work Phone: Squamous epithelial cells de tection in urine sediment by light microscopyon 11-05-2021 Epithelial cells.squamous LM Ql (Urine sed) 0 SEEN /hpf 5-10 [facility] Work Phone: Thin prep Papanicolaou smear with manual screeningon 11-05-2021 Thin prep Papanicolaou smear with manual screening 8 5-15 [facility] Work Phone: Urine blood detectionon - RBC Ql (U) 150 /ul Negative [facility] Work Phone: RBC Ql (U) 5-10 SEEN /hpf 0-5 [facility] Work Phone: Urine clarityon 11-05-2021 Clarity (U) Clear Clear [facility] Work Phone: Urine color determinationon 11-05-2021 Color (U) Straw Yellow [facility] Work Phone: Urine glucose detectionon Glucose Ql (U) Normal mg/dl Normal [facility] Work Phone: Urine leukocyte esterase det ection by dipstickon 11-05-2021 Leukocyte esterase Test strip Ql (U) Negative Negative [facility] Work Phone: Urine pHon 11-05-2021 pH (U) 7.0 [pH] 5.0 - 8.0 [facility] Work Phone: Urine sediment bacteria coun t by microscopy (number/high power field)on 11-05-2021 Bacteria LM.HPF (Urine sed) [#/Area] RARE /hpf None Seen [facility] Work Phone: Urine specific gravity measu rementon 11-05-2021 Specific gravity (U) [Rel density] 1.010 1.002-1.030 [facility] Work Phone: Urobilinogen Auto test strip Ql (U)on 11-05-2021 Urobilinogen Ql (U) Normal mg/dl Normal [facility] Work Phone: No Panel Informationon 08-04 Stool Pancreatic Elastase 437 >200 [facility] Work Phone: Comment on above: Result Units: ug Radha st./g Severe Pancreatic Insufficiency: <100 Moderate Pancreatic Insufficiency: 100 - 200 Normal: >200 Stool Helicobacter pylori an tigen detection by immunoassayon 08-04-2021 H. pylori Ag IA Ql (Stl) Negative Negative [facility] Work Phone: Comment on above: Performed at: [address] [id number] Director: Lucila Quiroga MD, Phone: [phone] Absolute lymphocyte counton 08-02-2021 Lymphocytes Auto (Unsp spec) [#/Vol] 2.61 10*3/uL 0.83-4.51 [facility] Work Phone: Basophil percentageon 2021 Basophils/100 WBC (Bld) 0.4 % 0-1 [facility] Work Phone: Bilirubin [Mass/Vol] 0.60 mg/dL 0.20-1.00 [facility] Work Phone: Comment on above: For patients on eltr ombopag therapy, use of Dimension Ennice TBIL is not recommended. Chloride [Moles/Vol] 108 mmol/L 98-107 [facility] Work Phone: Eosinophils/100 WBC (Bld) 2.1 % 0-5 [facility] Work Phone: Glucose [Mass/Vol] 85 mg/dL 74-106 [facility] Work Phone: Neutrophils (Bld) [#/Vol] 5.2 10*3/uL 2.0-7.7 [facility] Work Phone: Neutrophils/100 WBC (Bld) 58.1 % 47-70 [facility] Work Phone: Potassium [Moles/Vol] 4.0 mmol/L 3.5-5.1 [facility] Work Phone: Protein [Mass/Vol] 7.6 g/dL 6.4-8.2 [facility] Work Phone: [phone] Sodium [Moles/Vol] 139 mmol/L 136-145 [facility] [facility] Work Phone: WBC (Bld) [#/Vol] 8.9 10*3/uL 4.4-11.0 [facility] Work Phone: Blood erythrocytes count (nu mber/volume)on 08-02-2021 RBC (Bld) [#/Vol] 4.16 10*6/uL 4.2-5.4 [facility] Work Phone: Blood hemoglobin measurement (mass/volume)on 08-02-2021 Hemoglobin (Bld) [Mass/Vol] 12.9 g/dL 12.0-15.0 [facility] Work Phone: Blood lymphocytes/100 leukoc yteson 08-02-2021 Lymphocytes/100 WBC (Bld) 29.3 % 19-41 [facility] Work Phone: Blood monocytes/100 leukocyt eson 08-02-2021 Monocytes/100 WBC (Bld) 9.8 % 0-10 [facility] Work Phone: Blood platelet mean volumeon 08-02-2021 Platelet mean volume (Bld) [Entitic vol] 10.9 fL 6.2-12.0 [facility] Work Phone: Chocolate RASTon 08-02-2021 Chocolate IgE Qn (S) <0.10 kU/L Class 0 [facility] Work Phone: Comment on above: Performed at: [facility] [address] [id number] Director: Lucila Quiroga MD, Phone: [phone] Determination of erythrocyte mean corpuscular volume (MCV)on 08-02-2021 MCV (RBC) [Entitic vol] 96.6 fL 81-99 [facility] Work Phone: Erythrocyte sedimentation ra valentina 08-02-2021 ESR (Bld) [Velocity] 5 mm[facility]h [facility] Work Phone: Hematocrit Auto (Bld) [Volum e fraction]on 08-02-2021 Hematocrit (Bld) [Volume fraction] 40.2 % 37-47 [facility] Work Phone: Laboratory - Chemistry and C hemistry - challengeon 08-02-2021 ALP [Catalytic activity/Vol] 80 U/L 45-117 [facility] Work Phone: ALT [Catalytic activity/Vol] 25 U/L 13-56 [facility] Work Phone: CO2 [Moles/Vol] 26.0 mmol/L 21.0-32.0 [facility] Work Phone: Globulin (S) [Mass/Vol] 3.9 g/dL 2.2-4.2 [facility] Work Phone: Urea nitrogen/Creatinine [Mass ratio] 26.0 mg/mg 10-20 [facility] [facility] - Hematology and Cell countson 08-02-2021 Erythrocyte distribution width (RBC) [Entitic vol] 47.3 fL 35.1-43.9 [facility] Work Phone: Erythrocyte distribution width (RBC) [Ratio] 13.3 % 11.6-14.6 [facility] Work Phone: Immature granulocytes/100 WBC (Bld) 0.300 % 0.0-0.9 [facility] Work Phone: Comment on above: IG% - Immature Granu locytes (promyelocytes, myelocytes and metamyelocytes) > 1% indicates that a LEFT SHIFT is Present. MCH (RBC) [Entitic mass] 31.0 pg 27.0-32.0 [facility] Work Phone: Nucleated RBC/100 WBC (Bld) [Ratio] 0 % 0-5 [facility] Work Phone: Laboratory - Miscellaneous t estson 08-02-2021 Service comment (Unsp spec) [Interp] Comment . [facility] Work Phone: Comment on above: Levels of Specific I gE Class Description of Class ----- < 0.10 0 Negative 0.10 - 0.31 0/I Equivocal/Low 0.32 - 0.55 I Low 0.56 - 1.40 II Moderate 1.41 - 3.90 III High 3.91 - 19.00 IV Very High 19.01 - 100.00 V Very High >100.00 Very High MCHC Auto (RBC) [Mass/Vol]on 08-02-2021 MCHC (RBC) [Mass/Vol] 32.1 g/dL 32-36 [facility] Work Phone: No Panel Informationon 08-02 Endomysial IgA Antibody Negative Negative [facility] Work Phone: Estimated GFR (MDRD) Amer 79 mL/min >60 [facility] Work Phone: Comment on above: GFR Calc Estimated GFR (MDRD) Non-Af Amer 66 mL/min >60 [facility] Work Phone: Comment on above: Non- GFR Calc [employer] Allergens (RAST) Negative . [facility] Work Phone: Comment on above: Allergens in this mi x are: Blue mussel Fish [place] Shrimp Tuna Thyroid Stimulating Hormone (TSH) 0.85 uIU/mL 0.358-3.74 [facility] Work Phone: Platelets bldon 08-02-2021 Platelets (Bld) [#/Vol] 276 10*3/uL 150-450 [facility] Work Phone: Serum Helicobacter pylori Ig G antibody assay (units/volume)on 08-02-2021 H. pylori IgG Qn (S) 0.24 0.00-0.79 [facility] Work Phone: Comment on above: Result Units: Index Value Negative <0.80 Equivocal 0.80 - 0.89 Positive >0.89Performed at: [facility] [id number] [place], [place] [id number] Director: Sammy Fabian PhD, Phone: [phone] Serum IgA measurement (units /volume)on 08-02-2021 IgA Qn (S) 335 mg/dL 64-422 [facility] Work Phone: Serum beef IgE antibody assa y (units/volume)on 08-02-2021 Beef IgE Qn (S) <0.10 kU/L Class 0 [facility] Work Phone: Serum corn IgE antibody assa y (units/volume)on 08-02-2021 Flynn IgE Qn (S) <0.10 kU/L Class 0 [facility] Work Phone: Serum cow milk IgE antibody assay (units/volume)on 08-02-2021 Cow milk IgE Qn (S) <0.10 kU/L Class 0 [facility] Work Phone: Serum or plasma albumin jasmin urement (mass/volume)on 08-02-2021 Albumin [Mass/Vol] 3.7 g/dL 3.2-5.0 [facility] Work Phone: Serum or plasma albumin/glob ulin mass ratioon 08-02-2021 Albumin/Globulin [Mass ratio] 0.9 {ratio} 0.9-2.4 [facility] Work Phone: Serum or plasma calcium jasmin urement (mass/volume)on 08-02-2021 Calcium [Mass/Vol] 9.6 mg/dL 8.5-10.1 [facility] Work Phone: Serum or plasma creatinine m easurement (mass/volume)on 08-02-2021 Creatinine [Mass/Vol] 0.88 mg/dL 0.55-1.02 [facility] Work Phone: Comment on above: The validity of the calculated GFR & GFRAA in patients over 70 years has not been determined. Clinical correlation is essential. Serum or plasma urea nitroge n measurement (mass/volume)on 08-02-2021 Urea nitrogen [Mass/Vol] 23 mg/dL 7-18 [facility] Work Phone: Serum peanut IgE antibody as say (units/volume)on 08-02-2021 Peanut IgE Qn (S) <0.10 kU/L Class 0 [facility] Work Phone: Serum pork IgE antibody assa y (units/volume)on 08-02-2021 Pork IgE Qn (S) <0.10 kU/L Class 0 [facility] Work Phone: Serum soybean IgE antibody a ssay (units/volume)on 08-02-2021 Soybean IgE Qn (S) <0.10 kU/L Class 0 [facility] Work Phone: Serum tissue transglutaminas e IgA antibody assay (units/volume)on 08-02-2021 tTG IgA Qn (S) <2 U/mL 0-3 [facility] Work Phone: Comment on above: Negative 0 - 3 Weak Positive 4 - 10 Positive >10 Tissue Transglutaminase (tTG) has been identified as the endomysial antigen. Studies have demonstr- ated that endomysial IgA antibodies have over 99% specificity for gluten sensitive enteropathy. Serum wheat IgE antibody ass ay (units/volume)on 08-02-2021 Wheat IgE Qn (S) <0.10 kU/L Class 0 [facility] Work Phone: Serum whole egg IgE antibody assay (units/volume)on 08-02-2021 Whole Egg IgE Qn (S) <0.10 kU/L Class 0 [facility] Work Phone: Thin prep Papanicolaou smear with manual screeningon 08-02-2021 Thin prep Papanicolaou smear with manual screening 26 U/L 15-37 [facility] Work Phone: Thin prep Papanicolaou smear with manual screening 5 5-15 [facility] Work Phone: Basophil percentageon 2021 Chloride [Moles/Vol] 107 mmol/L 98-107 [facility] Work Phone: Glucose [Mass/Vol] 108 mg/dL 74-106 [facility] Work Phone: Comment on above: Fasting Glucose resu lt from 100 to 125 mg/dL suggests IMPAIRED HOMEOSTASIS per A.D.A. criteria. Potassium [Moles/Vol] 4.1 mmol/L 3.5-5.1 [facility] Work Phone: Comment on above: Slight Hemolysis, Re sult may be falsely increased. Sodium [Moles/Vol] 140 mmol/L 136-145 [facility] Work Phone: Laboratory - Chemistry and C hemistry - challengeon 06-21-2021 CO2 [Moles/Vol] 28.0 mmol/L 21.0-32.0 [facility] Work Phone: Urea nitrogen/Creatinine [Mass ratio] 22.0 mg/mg 10-20 [facility] Work Phone: No Panel Informationon 06-21 Estimated Creatinine Clearance Calc 31.69 ml/min [facility] Work Phone: Estimated GFR (MDRD) Amer 69 mL/min >60 [facility] Work Phone: Comment on above: GFR Calc Estimated GFR (MDRD) Non-Af Amer 57 mL/min >60 [facility] Work Phone: Comment on above: Non- GFR Calc Serum or plasma calcium jasmin urement (mass/volume)on 06-21-2021 Calcium [Mass/Vol] 9.7 mg/dL 8.5-10.1 [facility] Work Phone: Serum or plasma creatinine m easurement (mass/volume)on 06-21-2021 Creatinine [Mass/Vol] 1.00 mg/dL 0.55-1.02 [facility] Work Phone: Comment on above: The validity of the calculated GFR & GFRAA in patients over 70 years has not been determined. Clinical correlation is essential. Serum or plasma urea nitroge n measurement (mass/volume)on 06-21-2021 Urea nitrogen [Mass/Vol] 22 mg/dL 7-18 [facility] Work Phone: Thin prep Papanicolaou smear with manual screeningon 06-21-2021 Thin prep Papanicolaou smear with manual screening 5 5-15 [facility] Work Phone: Basophil percentageon 2021 Basophil percentage < 0.6 mg/dL 0.55-1.02 [facility] Work Phone: No Panel Informationon 04-25 Bedside Estimated GFR (eGFR) > 60.0000 mL/min >60 [facility] Work Phone: Gram stain for investigation of transfusion reactionon 02-28-2021 Microscopic observation Gram stain Nom (Unsp spec) [facility] Work Phone: No Panel Informationon 02-28 Nasopharyngeal Culture [facility] Work Phone: COVID-19 virus antigen assay SARS-CoV-2 (COVID-19) Ag IA.rapid Ql (Resp) [facility] Work Phone: Lower GI hemoglobin IA Ql (S tl) Stool Occult Blood (YANCI) Positive [facility] Work Phone: Vital Signs Date Time Vital Sign Value Performing Clinician Faci lity 03-26-2024 13:35-0500 Body temperature 97.9 [degF] Dr. Edouard Grayson MD Work Phone: 7(801)986-769183 [place] [address] 03-26-2024 13:35-0500 Diastolic blood pressure 55 mm[Hg] Dr. Edouard Grayson MD Work Phone: 6(613)538-339483 [place] [address] 03-26-2024 13:35-0500 Heart rate 55 /min Dr. Edouard Grayson MD Work Phone: 4(084)389-642583 [place] [address] 03-26-2024 13:35-0500 Respiratory rate 18 /min Dr. Edouard Grayson MD Work Phone: 7(643)693-020483 [place] [address] 03-26-2024 13:35-0500 SaO2% (BldA) [Mass fraction] 95 % Dr. Edouard Grayson MD Work Phone: 2(272)357-254583 [place] [address] 03-26-2024 13:35-0500 Systolic blood pressure 158 mm[Hg] Dr. Edouard Grayson MD Work Phone: 0(007)190-584683 [place] [address] 03-26-2024 04:51-0500 Body mass index (BMI) [Ratio] 24 kg/m2 Dr. Edouard Grayson MD Work Phone: 3(550)741-345183 [place] [address] 03-26-2024 04:51-0500 Body weight 55.[address] Edouard Grayson MD Work Phone: 2(829)082-519583 [place] [address] 03-25-2024 08:12-0500 Inhaled oxygen flow rate 2 L/min Dr. Edouard Grayson MD Work Phone: 7(757)101-204683 [place] [address] 03-23-2024 13:16-0500 Body height 152.[address] Edouard Grayson MD Work Phone: 7(274)215-239473 [address] 01-02-2023 10:34-0400 Body temperature 98.8 [degF] Dr. Errol Shahid Work Phone: [facility] 01-02-2023 10:34-0400 Diastolic blood pressure 67 mm[Hg] Dr. Errol Shahid Work Phone: [facility] 01-02-2023 10:34-0400 Heart rate 84 /min Dr. Errol Shahid Work Phone: [facility] 01-02-2023 10:34-0400 Respiratory rate 18 /min Dr. Errol Shahid Work Phone: [facility] 01-02-2023 10:34-0400 SaO2% (BldA) [Mass fraction] 98 % Dr. Errol Shahid Work Phone: [facility] 01-02-2023 10:34-0400 Systolic blood pressure 108 mm[Hg] Dr. Errol Shahid Work Phone: 7(792)400-502385 [place] [address] 01-02-2023 06:00-0400 Body mass index (BMI) [Ratio] 23.1 kg/m2 Dr. Errol Shahid Work Phone: 5(371)517-665442 [place] [address] 01-02-2023 06:00-0400 Body weight 53.[address] Errol Shahid Work Phone: 0(752)380-203242 [place] [address] 01-01-2023 13:20-0400 Inhaled oxygen flow rate 2 L/min Dr. Errol Shahid Work Phone: 3(700)819-122042 [place] [address] 12-31-2022 14:38-0400 Body height 152.[address] Errol Shahid Work Phone: 1(224)672-508942 [place] [address] 03-15-2022 10:00-0500 Heart rate 80 /min Dr. Errol Shahid Work Phone: 2(837)431-320385 [place] [address] 03-15-2022 10:00-0500 Respiratory rate 16 /min Dr. Errol Shahid Work Phone: 8(923)483-684085 [place] [address] 03-15-2022 10:00-0500 SaO2% (BldA) [Mass fraction] 96 % Dr. Errol Shahid Work Phone: 2(959)799-560250 [address] 03-15-2022 09:47-0500 Body temperature 97.8 [degF] Dr. Errol Shahid Work Phone: 9(844)456-004742 [place] [address] 03-15-2022 09:47-0500 Diastolic blood pressure 65 mm[Hg] Dr. Errol Shahid Work Phone: 8(679)410-046542 [place] [address] 03-15-2022 09:47-0500 Systolic blood pressure 138 mm[Hg] Dr. Errol Shahid Work Phone: [facility] 03-14-2022 09:00-0500 Body weight 47.[address] Errol Shahid Work Phone: [facility] 03-08-2022 11:24-0500 Body height 149.[address] Errol Shahid Work Phone: [facility] 02-20-2022 18:10-0500 Body mass index (BMI) [Ratio] 20.2 kg/m2 Dr. Errol Shahid Work Phone: [facility] 02-20-2022 16:57-0500 Body temperature 98.5 [degF] Dr. Errol Shahid Work Phone: [facility] Work Phone: 02-20-2022 16:57-0500 Diastolic blood pressure 55 mm[Hg] Dr. Errol Shahid Work Phone: [facility] Work Phone: 02-20-2022 16:57-0500 Heart rate 73 /min Dr. Errol Shahid Work Phone: [facility] Work Phone: 02-20-2022 16:57-0500 Respiratory rate 16 /min Dr. Errol Shahid Work Phone: [facility] Work Phone: 02-20-2022 16:57-0500 SaO2% (BldA) [Mass fraction] 96 % Dr. Errol Shahid Work Phone: [facility] Work Phone: 02-20-2022 16:57-0500 Systolic blood pressure 118 mm[Hg] Dr. Errol Shahid Work Phone: [facility] Work Phone: 02-20-2022 16:56-0500 Body mass index (BMI) [Ratio] 19 kg/m2 Dr. Errol Shahid Work Phone: [facility] Work Phone: 02-20-2022 06:08-0500 Body weight 44.[address] Errol Shahid Work Phone: [facility] Work Phone: 02-13-2022 12:49-0500 Body height 152.[address] Errol Shahid Work Phone: [facility] Work Phone: 01-28-2022 08:06-0500 Body temperature 98.8 [degF] Kiesha Mckoy MD Work Phone: [facility] 01-28-2022 08:06-0500 Diastolic blood pressure 56 mm[Hg] Kiesha Mckoy MD Work Phone: [facility] 01-28-2022 08:06-0500 Heart rate 81 /min Kiesha Mckoy MD Work Phone: [facility] 01-28-2022 08:06-0500 Respiratory rate 19 /min Kiesha Mckoy MD Work Phone: [facility] 01-28-2022 08:06-0500 SaO2% (BldA) [Mass fraction] 94 % Kiesha Mckoy MD Work Phone: [facility] 01-28-2022 08:06-0500 Systolic blood pressure 117 mm[Hg] Kiesha Mckoy MD Work Phone: [facility] 01-25-2022 00:36-0500 Body mass index (BMI) [Ratio] 21.35 kg/m2 Kiesha Mckoy MD Work Phone: [facility] 01-25-2022 00:36-0500 Body weight 49.58 kg Kiesha Mckoy MD Work Phone: [facility] 01-24-2022 08:39-0500 Body height 152.4 cm Kiesha Mckoy MD Work Phone: [facility] 01-19-2022 16:00-0500 Diastolic blood pressure 77 mm[Hg] Dr. Errol Shahid Work Phone: [facility] Work Phone: 01-19-2022 16:00-0500 Heart rate 78 /min Dr. Errol Shahid Work Phone: [facility] Work Phone: 01-19-2022 16:00-0500 Respiratory rate 16 /min Dr. Errol Shahid Work Phone: [facility] Work Phone: 01-19-2022 16:00-0500 SaO2% (BldA) [Mass fraction] 98 % Dr. Errol Shahid Work Phone: [facility] Work Phone: 01-19-2022 16:00-0500 Systolic blood pressure 150 mm[Hg] Dr. Errol Shahid Work Phone: [facility] Work Phone: 01-19-2022 15:45-0500 Body temperature 97.4 [degF] Dr. Errol Shahid Work Phone: [facility] Work Phone: 01-19-2022 13:38-0500 Body height 157.[address] Errol Shahid Work Phone: [facility] Work Phone: 01-19-2022 13:38-0500 Body mass index (BMI) [Ratio] 20.5 kg/m2 Dr. Errol Shahid Work Phone: [facility] Work Phone: 01-19-2022 13:38-0500 Body weight 51.[address] Erorl Shahid Work Phone: [facility] Work Phone: 11-29-2021 12:48-0400 Body height 149.[address] Errol Shahid Work Phone: [facility] Work Phone: 11-29-2021 12:48-0400 Body weight 45.[address] Errol Shahid Work Phone: [facility] Work Phone: 11-29-2021 12:48-0400 Heart rate 68 /min Dr. Errol Shahid Work Phone: [facility] Work Phone: 11-29-2021 12:48-0400 SaO2% (BldA) [Mass fraction] 98 % Dr. Errol Shahid Work Phone: [facility] Work Phone: 11-18-2021 15:35-0400 Body mass index (BMI) [Ratio] 19.5 kg/m2 Dr. Errol Shahid Work Phone: [facility] Work Phone: 11-18-2021 15:35-0400 Body weight 43.[address] Errol Shahid Work Phone: [facility] Work Phone: 11-18-2021 15:35-0400 Diastolic blood pressure 68 mm[Hg] Dr. Errol Shahid Work Phone: [facility] Work Phone: 11-18-2021 15:35-0400 Heart rate 64 /min Dr. Errol Shahid Work Phone: [facility] Work Phone: 11-18-2021 15:35-0400 Respiratory rate 16 /min Dr. Errol Shahid Work Phone: [facility] Work Phone: 11-18-2021 15:35-0400 SaO2% (BldA) [Mass fraction] 96 % Dr. Errol Shahid Work Phone: [facility] Work Phone: 11-18-2021 15:35-0400 Systolic blood pressure 145 mm[Hg] Dr. Errol Shahid Work Phone: [facility] Work Phone: 11-17-2021 07:19-0400 Body mass index (BMI) [Ratio] 19.7 kg/m2 Dr. Errol Shahid Work Phone: [facility] Work Phone: 11-17-2021 07:19-0400 Body temperature 97.6 [degF] Dr. Errol Shahid Work Phone: [facility] Work Phone: 11-17-2021 07:19-0400 Body weight 44.[address] Errol Shahid Work Phone: [facility] Work Phone: 11-17-2021 07:19-0400 Diastolic blood pressure 68 mm[Hg] Dr. Errol Shahid Work Phone: [facility] Work Phone: 11-17-2021 07:19-0400 Heart rate 64 /min Dr. Errol Shahid Work Phone: [facility] Work Phone: 11-17-2021 07:19-0400 Respiratory rate 16 /min Dr. Errol Shahid Work Phone: [facility] Work Phone: 11-17-2021 07:19-0400 SaO2% (BldA) [Mass fraction] 94 % Dr. Errol Shahid Work Phone: [facility] Work Phone: 11-17-2021 07:19-0400 Systolic blood pressure 175 mm[Hg] Dr. Errol Shahid Work Phone: [facility] Work Phone: 11-12-2021 15:00-0400 Respiratory rate 16 /min [facility] Work Phone: 11-12-2021 13:36-0400 Diastolic blood pressure 74 mm[Hg] [facility] Work Phone: 11-12-2021 13:36-0400 Heart rate 64 /min [facility] Work Phone: 11-12-2021 13:36-0400 SaO2% (BldA) [Mass fraction] 98 % [facility] Work Phone: 11-12-2021 13:36-0400 Systolic blood pressure 138 mm[Hg] [facility] Work Phone: 11-12-2021 11:16-0400 Body height 149.86 cm [facility] Work Phone: 11-12-2021 11:16-0400 Body mass index (BMI) [Ratio] 19.5 kg/m2 [facility] Work Phone: 11-12-2021 11:16-0400 Body temperature 97.5 [degF] [facility] Work Phone: 11-12-2021 11:16-0400 Body weight 43.8 kg [facility] Work Phone: 11-07-2021 08:21-0400 Diastolic blood pressure 74 mm[Hg] [facility] Work Phone: 11-07-2021 08:21-0400 Heart rate 73 /min [facility] Work Phone: 11-07-2021 08:21-0400 Respiratory rate 16 /min [facility] Work Phone: 11-07-2021 08:21-0400 SaO2% (BldA) [Mass fraction] 100 % [facility] Work Phone: 11-07-2021 08:21-0400 Systolic blood pressure 129 mm[Hg] [facility] Work Phone: 11-07-2021 05:20-0400 Body height 152.4 cm [facility] Work Phone: 11-07-2021 05:20-0400 Body mass index (BMI) [Ratio] 19.5 kg/m2 [facility] Work Phone: 11-07-2021 05:20-0400 Body temperature 98.4 [degF] [facility] Work Phone: 11-07-2021 05:20-0400 Body weight 45.4 kg [facility] Work Phone: 11-05-2021 17:48-0400 Diastolic blood pressure 91 mm[Hg] [facility] Work Phone: 11-05-2021 17:48-0400 Heart rate 86 /min [facility] Work Phone: 11-05-2021 17:48-0400 Respiratory rate 20 /min [facility] Work Phone: 11-05-2021 17:48-0400 Systolic blood pressure 160 mm[Hg] [facility] Work Phone: 11-05-2021 16:26-0400 SaO2% (BldA) [Mass fraction] 97 % [facility] Work Phone: 11-05-2021 14:12-0400 Body temperature 97.4 [degF] [facility] Work Phone: 11-05-2021 13:55-0400 Body height 124.46 cm [facility] Work Phone: 11-05-2021 13:55-0400 Body mass index (BMI) [Ratio] 29.6 kg/m2 [facility] Work Phone: 11-05-2021 13:55-0400 Body weight 45.9 kg [facility] Work Phone: 06-21-2021 15:26-0400 Body temperature 98 [degF] [facility] Work Phone: 06-21-2021 15:26-0400 Diastolic blood pressure 83 mm[Hg] [facility] Work Phone: 06-21-2021 15:26-0400 Heart rate 70 /min [facility] Work Phone: 06-21-2021 15:26-0400 Respiratory rate 16 /min [facility] Work Phone: 06-21-2021 15:26-0400 SaO2% (BldA) [Mass fraction] 98 % [facility] Work Phone: 06-21-2021 15:26-0400 Systolic blood pressure 140 mm[Hg] [facility] Work Phone: 06-21-2021 10:17-0400 Body height 149.86 cm [facility] Work Phone: 06-21-2021 10:17-0400 Body mass index (BMI) [Ratio] 19.5 kg/m2 [facility] Work Phone: 06-21-2021 10:17-0400 Body weight 44 kg [facility] Work Phone: 01-11-2017 14:21-0400 Body Temperature 98.4 [degF] Mireille Robin JUAREZ [facility] Work Phone: Encounters Encounter Date Encounter Type Care Provider Facility Start: 07-17-2024 ambulatory Edouard Grayson Facility: [facility] Start: 06-30-2024 End: 06-30-[address] Edouard Grayson MD Work Phone: [facility] Work Phone: Start: 06-30-2024 End: 06-30-2024 [facility] Start: 06-30-2024 End: 06-30-2024 ambulatory Edouard Grayson Facility:[facility] Start: 04-21-2024 ambulatory Edouard Grayson Facility: [facility] Start: 04-21-2024 Registered Referred Edouard Grayson MD [facility] Start: 04-11-2024 ambulatory Edouard Grayson Facility: [facility] Start: 04-11-2024 Registered Referred Edouard Grayson MD [facility] Start: 04-04-2024 ambulatory Edouard Grayson Facility: [facility] Start: 04-04-2024 Registered Referred Edouard Grayson MD [facility] Start: 03-31-2024 ambulatory Edouard Grayson Facility: [facility] Start: 03-31-2024 Registered Referred Edouard Grayson MD [facility] Start: 03-26-2024 Non-patient / Non-visit Dr. Catarino Aguilar DO [facility] Work Phone: Start: 03-25-2024 Non-patient / Non-visit Dr. Catarino Aguilar [facility] Work Phone: Start: 03-24-2024 Non-patient / Non-visit Dr. Catarino Aguilar [facility] Work Phone: Start: 03-23-2024 Non-patient / Non-visit Dr. Catarino Aguilar [facility] Work Phone: Start: 03-22-2024 ambulatory dEouard Grayson Facility: [facility] Start: 03-22-2024 End: 03-26-2024 Evaluation and management of inpatient Dr. Catarino Aguilar DO [facility] Work Phone: Start: 12-31-2023 End: 12-31-2023 ambulatory Edouard MILLAN Facility:[facility] Start: 12-13-2023 ambulatory Edouard Grayson Facility: [facility] Start: 10-01-2023 End: 10-01-2023 ambulatory Edouard Grayson OLS Facility:[facility] Start: 07-02-2023 Registered Referred [facility] Start: 05-02-2023 End: 05-02-2023 ambulatory [facility] Work Phone: Start: 05-02-2023 End: 05-02-2023 Departed Referred [facility] Start: 04-02-2023 End: 04-02-[address] Errol Shahid Work Phone: [facility] Work Phone: Start: 04-02-2023 End: 04-02-[address] Errol Shahid Work Phone: [facility] Start: 02-28-[address] Rudolph Shahid Work Phone: [facility] Start: 02-07-2023 End: 02-07-[address] Errol Shahid Work Phone: [facility] Work Phone: Start: 02-07-2023 End: 02-07-[address] Errol Shahid Work Phone: [facility] Start: 02-02-[address] Rudolph Shahid Work Phone: [facility] Start: 01-19-[address] Rudolph Shahid Work Phone: [facility] Start: 01-08-[address] Rudolph Shahid Work Phone: [facility] Start: 01-05-[address] Rudolph Shahid Work Phone: [facility] Start: 01-02-2023 Non-patient / Non-visit Dr. Errol Shahid Work Phone: [facility] Work Phone: Start: 01-01-2023 Non-patient / Non-visit Dr. Errol Shahid Work Phone: [facility] Start: 12-31-2022 Non-patient / Non-visit Dr. Errol Shahid Work Phone: [facility] In[facility] Physicians Work Phone: Start: 12-31-2022 Non-patient / Non-visit Dr. Errol Shahid Work Phone: [facility] Start: 12-30-2022 End: 01-02-2023 Evaluation and management of inpatient Dr[facility]: Start: 12-30-2022 End: 12-30-[address] Errol Shahid Work Phone: [facility]-Laboratory, Specimen Work Phone: Start: 12-28-2022 End: 12-28-[address] Errol Shahid Work Phone: [facility] Start: 12-28-[address] Rudolph Shahid Work Phone: [facility] Start: 09-28-2022 End: 09-28-2022 ambulatory [facility] Work Phone: Start: 09-28-2022 End: 09-28-2022 Departed Referred [facility] Start: 06-29-2022 End: 06-29-2022 ambulatory [facility] Work Phone: Start: 06-29-2022 End: 06-29-2022 Departed Referred [facility] Start: 06-16-2022 End: 06-16-2022 ambulatory [facility] Work Phone: Start: 06-16-2022 End: 06-16-2022 Departed Referred [facility] Start: 04-03-2022 Registered Referred [facility] Start: 02-20-2022 End: 03-15-2022 Evaluation and management of inpatient Dr. Errol Shahid Work Phone: [facility]-Transitional Care Unit Start: 02-20-2022 Non-patient / Non-visit Dr. Errol Shahid Work Phone: [facility] Start: 02-16-2022 Non-patient / Non-visit Dr. Errol Shahid Work Phone: [facility] Start: 02-15-2022 Non-patient / Non-visit Dr. Errol Shahid Work Phone: [facility] Start: 02-13-2022 Non-patient / Non-visit Dr. Errol Shahid Work Phone: [facility] Start: 02-12-2022 Non-patient / Non-visit Dr. Errol Shahid Work Phone: [facility] Start: 02-10-2022 Non-patient / Non-visit Dr. Errol Shahid Work Phone: [facility] Start: 02-09-2022 Non-patient / Non-visit Dr. Errol Shahid Work Phone: [facility] Start: 02-08-2022 Non-patient / Non-visit Dr. Errol Shahid Work Phone: [facility] Start: 02-07-2022 Non-patient / Non-visit Dr. Errol Shahid Work Phone: [facility] Start: 02-07-2022 Non-patient / Non-visit Dr. Errol Shahid Work Phone: [facility] Start: 02-06-2022 Non-patient / Non-visit Dr. Errol Shahid Work Phone: [facility] Start: 02-03-2022 Non-patient / Non-visit Dr. Errol Shahid Work Phone: [facility] Start: 02-02-2022 Non-patient / Non-visit Dr. Errol Shahid Work Phone: [facility] Start: 01-31-2022 Non-patient / Non-visit Dr. Errol Shahid Work Phone: [facility] Start: 01-30-2022 Non-patient / Non-visit Dr. Errol Shahid Work Phone: [facility] Start: 01-28-2022 End: 02-20-2022 Evaluation and management of inpatient Dr. Errol Shahid Work Phone: [facility]-Rehab Unit Start: 01-20-2022 ambulatory SURGERY CONSULT Facilit y:[facility] Start: 01-19-2022 End: 01-19-2022 ambulatory UNKNOWN PROVIDER Facility:[facility] Start: 01-19-2022 End: 01-28-2022 Evaluation and management of inpatient SURGERY - NEURO CONSULT Facility:[facility] Start: 01-19-2022 End: 01-28-2022 Evaluation and management of inpatient Kiesha Mckoy MD Work Phone: [id number] Start: 01-19-2022 End: 01-19-2022 Emergency department patient visit Dr. Errol Shahid Work Phone: [facility]-Emergency Department Start: 01-17-2022 End: 01-17-[address] Errol Shahid Work Phone: [facility] Start: 12-30-2021 End: 12-30-[address] Errol Shahid Work Phone: [facility] Work Phone: Start: 12-30-2021 End: 12-30-[address] Errol Shahid Work Phone: [facility] Start: 12-02-2021 Non-patient / Non-visit Dr. Errol Shahid Work Phone: [facility] Start: 12-02-2021 End: 12-02-[address] Errol Shahid Work Phone: [facility]-Cardiovascular Services Start: 12-01-2021 Non-patient / Non-visit Dr. Errol Shahid Work Phone: [facility] Start: 11-29-2021 End: 11-29-[address] Errol Shahid Work Phone: [facility] Work Phone: Start: 11-29-2021 End: 11-29-[address] Errol Shahid Work Phone: [facility]-Pulmonary Services/Neurology Start: 11-25-2021 Non-patient / Non-visit Dr. Errol Shahid Work Phone: [facility] Start: 11-25-2021 End: 11-25-[address] Errol Shahid Work Phone: [facility]-Pulmonary Services/Neurology Start: 11-18-2021 End: 11-18-[address] Errol Shahid Work Phone: [facility] Start: 11-17-2021 End: 11-17-[address] Errol Shahid Work Phone: [facility]-Pulmonary Medicine [facility] Start: 11-12-2021 End: 11-12-2021 Emergency department patient visit [facility]Emergency Department Start: 11-07-2021 End: 11-07-2021 Emergency department patient visit [facility]Emergency [facility] Start: 11-05-2021 End: 11-05-2021 Emergency department patient visit [facility]Emergency Department Start: 08-15-2021 End: 08-15-[address] Errol Shahid Work Phone: [facility]-Ultrasound, [facility] Start: 08-04-2021 End: 08-04-[address] Errol Shahid Work Phone: [facility]-Laboratory, Specimen Start: 08-02-2021 End: 08-02-[address] Errol Shahid Work Phone: [facility]-Radiology, [place] Start: 06-21-2021 End: 06-21-2021 Admission to same day surgery center [facility]-Surgical Day Care Start: 06-16-2021 End: 06-16-2021 Patient encounter procedure [facility]-Cat Scan, [facility] Start: 06-15-2021 Non-patient / Non-visit Dr. Errol Shahid Work Phone: [facility] Start: 04-25-2021 End: 04-25-2021 Patient encounter procedure [facility]-Cat Scan, [facility] Start: 02-28-2021 Patient encounter procedure [facility]Laboratory, Specimen Procedures Date Procedure Procedure Detail Performing Clinician Start: 03-31-[address] Edouard Grayson MD Work Phone: Start: 03-22-2024 SARS-CoV-2, Influenza & RSV (PCR) Dr. Genny Grayson MD Work Phone: Start: 03-22-[address] Edouard Grayson MD Work Phone: Start: 03-22-2024 CT of head without contrast Dr. Edouard sales MD Work Phone: Start: 03-22-2024 Plain chest X-ray Dr. Edouard Grayson MD Work Phone: Start: 01-01-[address] Errol Shahid Work Phone: Start: 12-31-[address] Nemesio Shahid Work Phone: Start: 12-30-2022 Measurement of occult blood in stool specimen using immunoassay Dr. Errol Shahid Work Phone: Start: 02-08-[address] Nemesio Shahid Work Phone: Start: 01-27-2022 CONTINUOUS CARDIAC MONITORING STRIP Othe r Other Start: 01-27-2022 Creatinine blood Lars Lord [employer] Work Phone: Start: 01-26-2022 Assay of magnesium Donna Corbin [employer] Work Phone: Start: 01-25-2022 Us abdominal real time w/image limited Lars Lord [employer] Work Phone: Start: 01-25-2022 Dup-scan xtr veins complete bilateral study Lars Lord [employer] Work Phone: Start: 01-25-2022 Assay of lactate Lars Lord [employer] Work Phone: Start: 01-25-2022 Assay of amylase Lars Lord [employer] Work Phone: Start: 01-25-2022 Hepatic function panel Lars Lord [employer]CH[employer] Work Phone: Start: 01-24-2022 Echo tthrc r-t 2d w/wom-mode compl spec&colr d Donna Corbin [employer] Work Phone: Start: 01-24-2022 Radiologic exam chest single view Karson Sanches [employer] Work Phone: Start: 01-24-2022 Infectious agent dna/rna influenza 1st 2 types Janey Sanches [employer] Work Phone: Start: 01-24-2022 SARS-CoV-2 (COVID-19) RNA [Presence] in Unspecified specimen by CHRIS with probe detection Janey Kaba Verónica [employer] Work Phone: Start: 01-24-2022 CONTINUOUS CARDIAC MONITORING STRIP Othe r Other Start: 01-24-2022 EXTRA MICRO Sussy Manning MD Work Phone: Start: 01-24-2022 URINALYSIS REFLEX TO CULTURE Sussy loo MD Work Phone: Start: 01-24-2022 Urnls dip stick/tablet reagent auto microscopy Sussy Manning MD Work Phone: Start: 01-24-2022 Ct head/brain w/o contrast material Lele Kaba Verónica [employer] Work Phone: Start: 01-24-2022 Assay of magnesium Donna Corbin [employer] Work Phone: Start: 01-23-2022 Culture bacterial blood aerobic w/id isolates Sussy Manning MD Work Phone: Start: 01-23-2022 Glucose measurement, blood Hannah ward MD Work Phone: Start: 01-23-2022 Natriuretic peptide Sussy Manning MD Work Phone: Start: 01-23-2022 Blood count complete automated Janey Kaba Verónica [employer] Work Phone: Start: 01-23-2022 CONTINUOUS CARDIAC MONITORING STRIP Othe r Other Start: 01-23-2022 Assay of magnesium Donna Zepeda Crobin [employer] Work Phone: Start: 01-22-2022 CONTINUOUS CARDIAC MONITORING STRIP Othe r Other Start: 01-22-2022 End: 01-22-2022 CONTINUOUS CARDIAC MONITORING STRIP Othe r Other Start: 01-22-2022 End: 01-22-2022 Urnls dip stick/tablet reagent auto microscopy Ivanna Ortiz [employer] Work Phone: Start: 01-22-2022 Ct head/brain w/o contrast material Loraine Ortiz [employer] Work Phone: Start: 01-22-2022 Radiologic exam chest single view Selena Ortiz [employer] Work Phone: Start: 01-22-2022 CONTINUOUS CARDIAC MONITORING STRIP Othe r Other Start: 01-22-2022 Ct head/brain w/o contrast material Loraine Ortiz [employer] Work Phone: Start: 01-22-2022 Assay of magnesium Donna Corbin [employer] Work Phone: Start: 01-21-2022 Ecg routine ecg w/least 12 lds trcg only w/o i&r Usama Shawn Cantrell [employer] Work Phone: Start: 01-21-2022 CONTINUOUS CARDIAC MONITORING STRIP Othe r Other Start: 01-21-2022 Assay of troponin quantitative Rajan kendrick MD Work Phone: Start: 01-21-2022 Assay of magnesium Donna Duane Shaquille [employer] Work Phone: Start: 01-20-2022 Ct head/brain w/o contrast material Matilde KEMP Work Phone: Start: 01-20-2022 Assay of troponin quantitative Rajan kendrick MD Work Phone: Start: 01-20-2022 Glucose measurement, blood Herminio Cam MD Work Phone: Start: 01-20-2022 Clotting factor viii vw factor antigen Kade Lantigua MD Work Phone: Start: 01-20-2022 Mri brain brain stem w/o contrast material Rajan Manuel MD Work Phone: Start: 01-20-2022 Glucose measurement, blood Herminio Cam MD Work Phone: Start: 01-20-2022 Radiologic exam abdomen 1 view Herminio perez MD Work Phone: Start: 01-20-2022 Assay of troponin quantitative Rajan kendrick MD Work Phone: Start: 01-20-2022 Glucose measurement, blood Herminio Cam MD Work Phone: Start: 01-20-2022 Radiologic exam chest single view Donna Corbin [employer] Work Phone: Start: 01-20-2022 Iadna s aureus amplified probe tq Donna Corbin [employer] Work Phone: Start: 01-20-2022 End: 01-20-2022 Hemoglobin glycosylated a1c Rajan Manuel MD Work Phone: Start: 01-20-2022 Hepatic function panel Rajan Manuel MD Work Phone: Start: 01-19-2022 Glucose measurement, blood Herminio Cam MD Work Phone: Start: 01-19-2022 Glucose measurement, blood Herminio Cam MD Work Phone: Start: 01-19-2022 End: 01-19-2022 Prim prq trluml mchnl thrmbc n-cor n-icra 1st Gary Garcia MD Work Phone: Start: 01-19-2022 End: 01-19-2022 Slctv cath intrnl carotid art angio intrcrnl art Gary Garcia MD Work Phone: Start: 01-19-2022 EXTRA MICRO Joselito Vazquez MD Work Phone: Start: 01-19-2022 Urnls dip stick/tablet reagent auto microscopy Joselito Vazquez MD Work Phone: Start: 01-19-2022 Urnls dip stick/tablet rgnt auto w/o microscopy Joselito Vazquez MD Work Phone: Start: 01-19-[address] w/blood flow&volume Joselito Vazquez MD Work Phone: Start: 01-19-2022 Assay of magnesium Rajan Manuel MD Work Phone: Start: 01-19-2022 CBC AND ELECTRONIC DIFF Joselito Vazquez MD Work Phone: Start: 01-19-2022 Complete blood count with white cell differential, automated Joselito Vazquez MD Work Phone: Start: 01-19-2022 GOLD TOP TUBE Joselito Vazquez MD Work Phone: Start: 01-19-2022 End: 01-19-2022 Hepatic function panel Joselito Vazquez MD Work Phone: Start: 01-19-2022 LAVENDER TOP TUBE Joselito Vazquez MD Work Phone: Start: 01-19-2022 LT BLUE TOP TUBE Joselito Vazquez MD Work Phone: Start: 01-19-2022 MINT GREEN TOP TUBE Joselito Vazquez MD Work Phone: Start: 01-19-2022 RAINBOW DRAW Joselito Vazquez MD Work Phone: Start: 01-19-2022 Ct head/brain w/o contrast material Joselito Vazquez MD Work Phone: Start: 01-19-2022 Glucose measurement, blood Other Other O T Start: 01-19-2022 CT angiography of head and neck Dr. Raul Shahid Work Phone: Start: 01-19-2022 Plain chest X-ray Dr. Errol Shahid Work Phone: Start: 01-19-2022 CT of head without contrast Dr. Santa Shahid Work Phone: Start: 01-19-2022 CT cervical spine without contrast Dr. Duane Shahid Work Phone: Start: 01-17-2022 CT of chest without contrast Dr. Mario Shahid Work Phone: Start: 12-02-2021 Cardiovascular stress test using pharmacologic stress agent Dr. Errol Shahid Work Phone: Start: 11-07-2021 CT angiography of chest with contrast Start: 11-05-2021 Plain chest X-ray Start: 08-15-[address] Nemesio Shahid Work Phone: Start: 08-02-2021 Diagnostic radiography of abdomen, decubitus and erect Dr. Errol Shahid Work Phone: Start: 06-21-2021 Operation on accessory sinus Start: 06-16-2021 CT of face Start: 04-25-2021 CT of head with contrast Start: 02-28-2021 Investigation of transfusion reaction Start: 02-28-2021 Nasopharyngeal Culture Measurement of occul t blood in stool specimen using immunoassay Dr. Errol Shahid Work Phone: Urine culture Viral antigen assay Dr. Raul Shahid Work Phone: Viral antigen assay Plan of Treatment Date Care Activity Detail Author Start: 03-26-2024 Patient discharge [facility] Start: 03-24-2024 [facility] Start: 03-23-2024 Care planning and problem solving actions [facility] Start: 03-22-[address] [facility] Start: 03-22-2024 Following clinical pathway protocol [facility] Start: 03-22-2024 Assessment of risk of venous thromboembolism [facility] Start: 03-22-2024 Fall prevention [facility] Start: 03-22-2024 Inhalation therapy procedure [facility] Start: 03-22-2024 Insertion of catheter into peripheral vein [facility] Start: 03-22-2024 Introduction of urinary catheter [facility] Start: 03-22-2024 Measuring intake and output [facility] Start: 03-22-2024 Oxygen therapy [facility] Start: 03-22-2024 Providing care according to standard [facility] Start: 03-22-2024 Provision of activity privileges [facility] Start: 03-22-2024 Referral to occupational therapist [facility] Start: 03-22-2024 Referral to service [facility] Start: 03-22-2024 [facility] Start: 03-22-2024 Admission procedure [facility] Start: 03-22-2024 [facility] Start: 01-02-2023 Patient discharge [facility] Start: 12-31-2022 Measurement of occult blood in stool specimen using immunoassay [facility] Start: 12-31-2022 Following clinical pathway protocol [facility] Start: 12-30-2022 Application of intermittent pneumatic compression device [facility] Start: 12-30-2022 Administration of blood product [facility] Start: 12-30-2022 Following clinical pathway protocol [facility] Start: 12-30-2022 Assessment of risk of venous thromboembolism [facility] Start: 12-30-2022 Fall prevention [facility] Start: 12-30-2022 Inhalation therapy procedure [facility] Start: 12-30-2022 Insertion of catheter into peripheral vein [facility] Start: 12-30-2022 Introduction of urinary catheter [facility] Start: 12-30-2022 Measuring intake and output [facility] Start: 12-30-2022 Providing care according to standard [facility] Start: 12-30-2022 Provision of activity privileges [facility] Start: 12-30-2022 Referral to gastroenterology service [facility] Start: 12-30-2022 Referral to occupational therapist [facility] Start: 12-30-2022 Referral to service [facility] Start: 12-30-2022 [facility] Start: 12-30-2022 Admission procedure [facility] Start: 12-30-2022 End: 12-30-2022 Administration of blood product [facility] Start: 12-30-2022 Transfusion of red blood cells [facility] Start: 03-15-2022 Patient discharge [facility] Start: 03-14-2022 Development of care plan [facility] Start: 03-14-2022 End: 03-14-2022 ambulatory [facility]rology [facility] Start: 03-02-2022 Recommendation to continue with treatment [facility] Start: 03-02-2022 [facility] Work Phone: Start: 02-27-2022 [facility] Start: 02-21-2022 Development of care plan [facility] Start: 02-21-[address] [facility] Start: 02-21-2022 Developing a treatment plan [facility] Start: 02-20-[address] [facility] Start: 02-20-2022 Admission procedure [facility] Start: 02-20-2022 Measuring intake and output [facility] Start: 02-20-2022 Patient referral to dietitian [facility] Start: 02-20-2022 Referral to occupational therapist [facility] Start: 02-20-2022 Referral to service [facility] Start: 02-20-2022 Vital signs measurements [facility] Start: 02-20-2022 End: 02-20-2022 [facility] Start: 02-20-2022 Patient discharge [facility] Work Phone: Start: 02-10-2022 [facility] Work Phone: Start: 02-09-2022 [facility] Work Phone: Start: 02-07-2022 Referral to gastroenterology service [facility] Work Phone: Start: 01-30-2022 Application of intermittent pneumatic compression device [facility] Work Phone: Start: 01-30-2022 [facility] Work Phone: Start: 01-30-2022 Following clinical pathway protocol [facility] Work Phone: Start: 01-30-2022 Catheterization of vein [facility] Work Phone: Start: 01-29-2022 [facility] Work Phone: Start: 01-29-2022 Referral to service [facility] Work Phone: Start: 01-29-2022 Urinary bladder training [facility] Work Phone: Start: 01-29-2022 Patient referral to dietitian [facility] Work Phone: Start: 01-29-2022 Vital signs measurements [facility] Work Phone: Start: 01-29-2022 End: 01-29-2022 [facility] Work Phone: Start: 01-29-2022 Referral to occupational therapist [facility] Work Phone: Start: 01-29-2022 Incentive spirometry [facility] Work Phone: Start: 01-29-[address] [facility] Work Phone: Start: 01-28-2022 Admission procedure [facility] Work Phone: Start: 01-19-2022 Oxygen therapy [facility] Work Phone: Start: 01-19-2022 End: 01-19-2022 [facility] Work Phone: Start: 11-05-2021 [facility] Work Phone: Start: 06-21-2021 Anesthesia nose & accessory sinuses nos ANESTH NOSE/SINUS SURGERY [facility] Work Phone: Start: 06-21-2021 Nasal/sinus ndsc total with sphenoidotomy NSL/SINS NDSC TOT W/SPHENDT [facility] Work Phone: Start: 01-16-2017 End: 01-16-2017 Appointment Appointment [facility] Work Phone: Start: 01-11-2017 End: 01-11-2017 Appointment Appointment [facility] Work Phone: Start: 12-12-2016 End: 12-14-2016 Dxa bone density study 1/> sites axial skel Dual-energy X-ray absorptiometry (DXA), bone density study, 1 or more sites; [facility] Work Phone: Start: 12-12-2016 End: 12-14-2016 Mammogram, screening Mammogram, Screening, both breasts [facility] Work Phone: Start: 08-06-2011 [facility] Start: 12-10-2008 Tetanus vaccination [facility] Start: 06-13-1987 Screening for malignant neoplasm of colon [facility] Start: 1982 Screening for malignant neoplasm of breast [facility] Start: 06-13-1963 Screening for malignant neoplasm of cervix [facility] Start: 1961 Third diphtheria, tetanus and acellular pertussis (DTaP) vaccination [facility] Start: 1942 [facility] Start: 1942 Hepatitis C screening [facility] Start: 1942 Screening for osteoporosis [facility] Bacteria identified in Blood by Culture [facility] CT Chest WO contrast [facility] Work Phone: End: 01-19-2022 FLUORO IMAGING FOR NEURO ENDOVASCULAR [facility] Work Phone: Patient Education [facility] Work Phone: Patient referral [facility] Work Phone: SARS-CoV-2 (COVID-19 ) Ag [Presence] in Respiratory specimen by Rapid immunoassay [facility] Work Phone: SARS-CoV-2 Antigen (Rapid) SARS- CoV-2 Antigen (Rapid) [facility] Work Phone: Immunizations Immunization Date Immunization Notes Care Provider [facility] 12-27-2021 influenza, injectabl e, quadrivalent, preservative free Dr. Errol Shahid Work Phone: [facility] 12-27-2021 influenza, seasonal, injectable Dr. Errol Shahid Work Phone: [facility] 08-02-2021 Covid (Moderna) Dr. Santa Shahid Work Phone: [facility] 02-04-2021 Covid (Moderna) Dr. Santa Shahid Work Phone: [facility] 06-07-2020 Covid (Moderna) [facility] 05-10-2020 Covid (Moderna) [facility] 01-01-2020 influenza, injectabl e, quadrivalent, preservative free Dr. Errol Shahid Work Phone: [facility] 01-01-2020 influenza, seasonal, injectable Dr. Errol Shahid Work Phone: [facility] 01-10-2019 influenza, injectabl e, quadrivalent, preservative free Dr. Errol Shahid Work Phone: [facility] 01-10-2019 influenza, seasonal, injectable Dr. Errol Shahid Work Phone: [facility] 12-17-2017 influenza, injectabl e, quadrivalent, preservative free Dr. Errol Shahid Work Phone: [facility] [facility] 12[facility]17-2017 influenza, seasonal, injectable Dr. Errol Shahid Work Phone: [facility] 01-11-2017 influenza, injectabl e, quadrivalent, preservative free Dr. Errol Shahid Work Phone: [facility] 01-11-2017 influenza, seasonal, injectable Dr. Errol Shahid Work Phone: [facility] 01-11-2017 Seasonal trivalent influenza vaccine, adjuvanted, preservative free Mireille Kelly LPN [facility] Work Phone: 01-10-2017 Influenza virus vaccine [facility] 02-15-2016 pneumococcal conjuga te vaccine, [address] Errol Shahid Work Phone: [facility] 01-27-2016 influenza, injectabl e, quadrivalent, preservative free Dr. Errol Shahid Work Phone: [facility] 01-27-2016 influenza, seasonal, injectable Dr. Errol Shahid Work Phone: [facility] 12-31-2014 Influenza, high dose seasonal Dr. Edouard Grayson MD Work Phone: [facility] 12-31-2014 influenza, high dose seasonal, preservative-free Dr. Errol Shahid Work Phone: [facility] 01-23-2014 influenza, injectabl e, quadrivalent, preservative free Dr. Errol Shahid Work Phone: [facility] 01-23-2014 influenza, seasonal, injectable Dr. Errol Shahid Work Phone: [facility] 12-10-1998 tetanus and diphther ia toxoids, adsorbed, preservative free, for adult use (2 Lf of tetanus toxoid and 2 Lf of diphtheria toxoid) Dr. Errol Shahid Work Phone: [facility] 02-01-1996 hepatitis B vaccine, pediatric or pediatric/adolescent dosage Dr. Errol Shahid Work Phone: [facility] Payers Date Payer Category Payer Self-pay [id number] 2022 Medicare [id number] 2021 Unknown [id number] 2016 Unknown [id number] 2007 Medicare [id number] 1940 Unknown [id number] 2.16. [id number] 1942 Unknown [id number] 2.16. [id number] 1942 Unknown [id number] 2.16. 840.1.511039.3.579.2.594 Unknown [id number] 2.16.8 40.1.123917.3.579.2.462 Unknown [id number] 2.16.8 40.1.675243.3.579.2.462 Unknown [id number] 2.16.8 40.1.497342.3.579.2.462 Unknown [id number] 2.16.8 40.1.927367.3.579.2.462 Unknown [id number] 2.16.8 40.1.133635.3.579.2.462 Unknown [id number] 2.16.8 40.1.847439.3.579.2.462 Unknown [id number] 2.16.8 40.1.720765.3.579.2.462 Unknown [id number] 2.16.8 40.1.454579.3.579.2.462 Unknown [id number] 2.16.8 40.1.149014.3.579.2.462 Unknown [id number] 2.16.8 40.1.293885.3.579.2.462 Unknown [id number] 2.16.8 40.1.931236.3.579.2.462 Unknown [id number] 2.16.8 40.1.830412.3.579.2.462 Unknown [id number] 2.16.8 40.1.014691.3.579.2.462 Unknown [id number] 2.16.8 40.1.570563.3.579.2.462 Unknown [id number] 2.16.8 40.1.120348.3.579.2.462 Unknown [id number] 2.16.8 40.1.757946.3.579.2.462 Social History Date Type Detail Facility Start: 06-14-2021 End: 12-30-2022 Tobacco smoking status NHIS Unknown if ever smoked [facility] Start: 02-05-2020 None [facility] Start: 09-28-2020 Non-smoker [facility] Start: 1940 Sex Assigned At Female [facility] Start: 1940 Sex Assigned At [facility] Start: 01-09-2022 End: 01-19-2022 Exposure to SARS-CoV-2 (event) Not sure [facility] Start: 04-15-2017 Spouse/ Signif icant Other [facility] Start: 03-22-2024 Tobacco smoking status NHIS Never smoked tobacco (finding) [facility] Start: 07-01-2024 Sex Female (finding) [facility] Medical Equipment Procedure Code Equipment Code Equipment Origin al Text Equipment Identifier Dates [id number] Start: 01-19-2022 Goals Date Patient Goal Desired Activity /State Functional Status Date Assessment Result Facility 03-26-2024 Functional status Bedrest [facility] Work Phone: 01-02-2023 Functional status Up ad mya;Bathroom Priv ilege [facility] Work Phone: 03-15-2022 Functional status Activity Abili ty With Assist of 1 [facility] Work Phone: 03-14-2022 Functional status Bedrest [facility] Work Phone: 03-13-2022 Functional status Tolerates Activity Well [facility] Work Phone: 02-20-2022 Functional status Activity Abili ty With Assist of 1 [facility] Work Phone: 02-15-2022 Functional status Bedrest;Bedside Commode [facility] Work Phone: Mental Status Date Assessment Result Facility 03-26-2024 Cognitive function Voice/Name [facility] Work Phone: 01-02-2023 Cognitive function Voice/Name [facility] Work Phone: 01-02-2023 Cognitive function Appropriate;[facility] Work Phone: 03-15-2022 Cognitive function Voice/Name [facility] Work Phone: 03-13-2022 Cognitive function Appropriate;[facility] Work Phone: 02-20-2022 Cognitive function Voice/Name [facility] Work Phone: 01-19-2022 Cognitive function Voice/Name [facility] Work Phone: 11-07-2021 Cognitive function Voice/Name [facility] Work Phone: 11-05-2021 Cognitive function Voice/Name [facility] Work Phone: 06-21-2021 Cognitive function Level Of Cons ciousness Awake;Drowsy [facility] Work Phone: 06-21-2021 Cognitive function Voice/Name [facility] Work Phone: Clinical Notes 03-15-2021 to 03-26-2024 Note Date & Type Note Facility 03-26-2024 Note [facility] Medical Records Department [address] [place] [address] Discharge Summary 03/26/24 1110 MR#: [id number] Acct: [id number] Name: KARLIE VALLE Rep #: [id number] : 1940 83 From: Catarino Aguilar DO PCP: Dr. Edouard Grayson MD Status:DIS IN [facility] Prov[facility] Date of Admission: 03/22/24 Date of Discharge: 03/26/24 Primary Care Physician: Dr. Edouard Grayson MD Reason For Visit: HYYPOXIA, COVID Diagnosis Discharge Diagnosis (1) Hypoxia: Status: Acute Code(s): R09.02 - Hypoxemia (2) COVID-19: Status: Acute Code(s): U07.1 - COVID-19 Plan 1. COVID-19 infection with hypoxia-patient will remain on remdesivir and dexamethasone, she does not appear in any respiratory distress, patient is currently on room air #2 hypoxia secondary to COVID-19 infection-pulse ox will be monitored, patient is currently on room air #3 generalized weakness secondary to COVID-19 infection-PT and OT will see the patient, she currently resides in a nursing facility #4 acute cystitis-patient's UA showed white blood cells and bacteria, culture shows Enterococcus faecalis and alphahemolytic organism, I will change the patient to Augmentin 875 mg twice a day with food #5 cerebrovascular disease-complicates care, management, recovery, and prognosis #6 dementia-complicates care, management, recovery, and prognosis #7 paroxysmal atrial fibrillation-patient is currently on Eliquis and metoprolol Total clinical time spent by myself addressing the patient's medical issues, reviewing all of her data, and collaborating with patient's care team: 35 minutes Medications at Discharge Home Medications menthol 0.44 %-zinc oxide 20.6 % topical ointment (Calmoseptine) 1 applic topical BID #0 grams 03/09/22 sennosides 8.6 mg-docusate sodium 50 mg tablet (2-in-1 Laxative) 1 tab-cap PO DAILY constipation 12/30/22 dexamethasone 4 mg tablet 4 mg PO Q12H 03/22/24 nirmatrelvir 300 mg (150 mg x2)-ritonavir 100 mg tablet,dose pack (Paxlovid) 3 tab PO BID 03/22/24 polyethylene glycol 3350 17 gram/dose oral powder (Miralax) 17 g PO DAILY 03/22/24 acetaminophen 325 mg tablet 650 mg (2 x 325 mg) PO Q4H PRN PRN Fever, pain 1-12/19 #0 tabs 03/26/24 amoxicillin 875 mg-potassium clavulanate 125 mg tablet 1 tab PO BIDCM #1 TAB 03/26/24 apixaban 5 mg tablet (Eliquis) 2.5 mg (1/2 x 5 mg) PO BID #0 tabs 03/26/24 atorvastatin 20 mg tablet 20 mg PO QHS #0 tabs 03/26/24 dexamethasone 6 mg tablet 6 mg PO DAILY #6 tabs 03/26/24 escitalopram oxalate 10 mg tablet 5 mg (1/2 x 10 mg) PO DAILY #0 tabs 03/26/24 escitalopram oxalate 10 mg tablet 20 mg (2 x 10 mg) PO DAILY #0 tabs 03/26/24 menthol 0.44 %-zinc oxide 20.6 % topical ointment (Calmoseptine) 1 applic topical 4X/DAY #0 grams 03/26/24 metoprolol tartrate 25 mg tablet 25 mg PO BID #0 tabs 03/26/24 mirtazapine 15 mg tablet 15 mg PO QHS #0 tabs 03/26/24 nystatin 100,000 unit/gram topical powder (Nyamyc) 1 applic topical BID #0 grams 03/26/24 oxybutynin chloride 5 mg tablet 5 mg PO DAILY #0 tabs 03/26/24 pantoprazole 20 mg tablet,delayed release 20 mg PO DAILY #0 tabs 03/26/24 pramipexole 0.125 mg tablet 0.125 mg PO QHS #0 tabs 03/26/24 sennosides 8.6 mg-docusate sodium 50 mg tablet (Stimulant Laxative Plus) 1 tab PO DAILY #0 tabs 03/26/24 Hospital Course Operations None Procedures None Summary of Care Provided Minutes Spent on Discharge: 32 Hospital Course: This 83-year-old white female was seen in the emergency room at [facility] after being sent in from a local care facility with shortness of breath. Patient had tested positive for COVID the day before, she was found to be 84% on room air today. Patient was very weak and having decreased p.o. intake. Workup in the emergency room included a CBC that was remarkable for hemoglobin 9.8. Patient's chemistry profile was remarkable for creatinine of 1.07 and a BUN of 24, patient's beta natruretic peptide was mildly elevated. Urinalysis was positive for 4+ bacteria but 0-5 RBCs and 0 and 5-10 WBCs. Chest x-ray showed a moderate hiatal hernia with mild bibasilar atelectasis. CT of the brain showed no acute intracranial processes. 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 Patient was admitted to [place] [address] and seen by PT and OT, she was given IV remdesivir and given dexamethasone. Patient improved during her hospitalization, on 03/26/2024, patient appears stable for return to her nursing facility:alert, no apparent distress and average body habitus Constitutional Narrative: Patient is mildly confused General Appearance: cooperative, well kempt and well developed Orientation / Consciousness: awake, oriented to person and confused HEENT normocephalic, head/scalp atraumatic and moist oral mucous membranes Eyes PERRL, EOMs intact bilaterally and conjunctivae normal Neck hall (more content not included)... [facility] 03-22-2024 Evaluation note Diagnosis Onset Date Resolution COVID-19 inactive March 22, 2024 2:49pm Hypoxia inactive March 22, 2024 2:49pm [facility] Work Phone: 1(728) 450-343110-24-2023 Consult note Author Conor Antunez [facility] January 02, 2023 10:12am Note Date/Time January 02, 2023 1 0:12am [facility] Medical Records Department [address] [place] [address] Counseling Note - Pharmacy 01/02/23 1011 MR#: [id number] Acct: [id number] Name: KARLIE VALLE Rep #:[id number] : 1940 82 From: Conor Antunez PCP: Dr. Errol Shahid MD Status: ADM IN Y Location: [facility] [id number] Pharmacy [facility] Service has performed discharge medication reconciliation and counseling for this patient. The patient's discharge medication list was reviewed for discrepancies and discrepancies were resolved. The patient's daughter was counseled on the following discharge medications and changes in medications for homegoing were reviewed. The Reason for Use, instructions for use, and potential side effects were reviewed for all new medications. The patient's daughter's questions regarding all of their medications were answered. 1. Apixaban 2.5 mg PO BID (reduced dose) 2. Hydrocortisone 25 mg suppository DE BID The patient's daughter was able to verbally demonstrate an understanding of their discharge medications. Medications at Discharge Home Medications acetaminophen 500 mg tablet 1,000 mg (2 x 500 mg) PO Q8 PRN fever/pain 1-10 #0 tabs 02/20/22 atorvastatin 40 mg tablet 40 mg PO QHS Cholesterol 02/20/22 calcium carbonate 500 mg-vitamin D3 5 mcg (200 unit) tablet (Oyster Shell Calcium-Vitamin D3) 1 tab PO BREAKFAST Supplement 02/20/22 metoprolol tartrate 25 mg tablet 12.5 mg PO BID BP 02/20/22 mirtazapine 15 mg tablet 22.5 mg PO QHS Check with primary doctor 02/20/22 pantoprazole 40 mg tablet,delayed release 40 mg PO DAILY GERD 02/20/22 menthol 0.44 %-zinc oxide 20.6 % topical ointment (Calmoseptine) 1 applic topical BID #0 grams 03/09/22 pramipexole 0.125 mg tablet 0.125 mg PO QHS #0 tabs 03/09/22 escitalopram oxalate 10 mg tablet 10 mg PO DAILY depression 12/30/22 ferrous sulfate 325 mg (65 mg iron) tablet (Feosol) 325 mg PO DAILY 12/30/22 sennosides 8.6 mg-docusate sodium 50 mg tablet (2-in-1 Laxative) 1 tab-cap PO DAILY constipation 12/30/22 apixaban 2.5 mg tablet (Eliquis) 2.5 mg PO BID #60 tabs 01/02/23 hydrocortisone acetate 25 mg rectal suppository 25 mg DE BID 4 weeks #24 ea 01/02/23 01/02/23 1012 <Electronically signed by Conor garza> Date _ Conor Mastigner Signature (if applicable): Date CC: ~ Signed [facility] Work Phone: 1(372) 162-179510-24-2023 Discharge summary Author Stefano Palmer [facility] January 02, 2023 9:57am Note Date/Time January 02, 2023 9 :50am [facility] Medical Records Department [address] [place] [id number] [facility] MR#: [id number] Acct: [id number] Name: KARLIE VALLE Rep #:[id number] : 1940 82 From: Stefano guerrero MD PCP: Dr. Errol Shahid MD Status: ADM IN Certification of patient admission REQUIRED AT TIME OF ADMISSION. I CERTIFY THAT POST-HOSPITAL ECF SERVICES ARE REQUIRED TO BE GIVEN ON AN IN-PATIENT BASIS BECAUSE OF THE ABOVE NAMED PATIENT'S NEED FOR CORRECTION CARE ON A CONTINUING BASIS FOR THE CONDITION(S) FOR WHICH HE/SHE WAS RECEIVING IN-PATIENT HOSPITAL SERVICES PRIOR TO HIS/HER TRANSFER TO THE [facility]. 01/02/23 0957<Electronically signed by Stefano Palmer MD> Diet Diet Order/Speech Therapy: 01/01/23 14:54 Diet: Regular - General Is pt able to select menu?: Yes Routine Orders/Code Status Routine Lab Work: CBC and BMP Code Status: DNRCC Therapies Physical Therapy: Eval and Treat Occupational Therapy: Eval and Treat Problem/Diagnosis (1) Anemia: Status: Acute Code(s): D64.9 - Anemia, unspecified (2) GIB (gastrointestinal bleeding): Status: Acute Code(s): K92.2 - Gastrointestinal hemorrhage, unspecified Plan #Acute on chronic anemia due to acute GI bleed/GERD * Hb was 6.1 on admission. Is s/p 2 units of PRBCs * on IV pantoprazole 40mg bid. states she has had an ulcer in the past. * currently NPO * gastroenterology consulted. 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 A-fib/HTN/HLD/history of CVA ? Continue with her blood pressure medications, will hold her Eliquis secondary to GI bleeding ? We will monitor and make adjustments as necessary ? Continue with statin 3. Anxiety/depression/chronic migraines ? Stable ? Continue with escitalopram DVT: SCDs Allergies/Procedures Done in Hospital Allergies ranolazine [From Ranexa] Adverse Reaction (Severe, Verified 12/30/22 16:02) low urine output, rash oseltamivir [From Tamiflu] Adverse Reaction (Verified 12/30/22 16:02) Unknown Procedures: Colonoscopy and EGD Type of Care/Length of Stay Estimated LOS: More Than 30 Days Type of Care Needed: Intermediate Rehab Potential: Good Prognosis: Good Additional Orders/Day of Discharge Day of Discharge: 01/02/23 Dietary and Speech Recommendations Dietitian Recommendations/Changes: Recommend advance diet as tolerated to cardiac. ONS as needed once PO established with solid food. Discharge Plan Admission Admit Date/Time: 12/30/22 17:09 Attending Provider: Stefano Palmer Primary Care Provider: Errol Shahid Consulting Providers: Chasity Huffman; Helene Khan Instructions Additional Instructions / Restrictions: Obtain a CBC and a BMP at the [facility] in a couple of days to monitor your anemia and renal function. Discharge Orders/Prescriptions Prescriptions: New hydrocortisone acetate 25 mg suppository 25 mg DE BID 28 Days Qty: 24 0RF Eliquis 2.5 mg tablet 2.5 mg PO BID Qty: 60 0RF Continued acetaminophen 500 mg Tablet 1,000 mg PO Q8 PRN (Reason: fever/pain 1-10) Qty: 0 0RF atorvastatin 40 mg tablet 40 mg PO QHS pantoprazole 40 mg tablet,delayed release (DR/EC) 40 mg PO DAILY mirtazapine 15 mg tablet 22.5 mg PO QHS metoprolol tartrate 25 mg tablet 12.5 mg PO BID calcium carbonate-vitamin D3 [Oyster Shell Calcium-Vit D3] 500 mg-5 mcg (200 unit) tablet 1 tab PO BREAKFAST menthol-zinc oxide [Calmoseptine] 0.44-20.6 % Ointment 1 applic topical BID Qty: 0 0RF Protocol: *Topical Application Instructions APPLICATION INSTRUCTIONS: Apply to coccyx pramipexole 0.125 mg Tablet 0.125 mg PO QHS Qty: 0 0RF escitalopram oxalate 10 mg tablet 10 mg PO DAILY ferrous sulfate [Feosol] 325 mg (65 mg iron) tablet 325 mg PO DAILY sennosides-docusate sodium [2-in-1 Laxative] 8.6-50 mg tablet 1 tab-cap PO DAILY Discontinued Eliquis 5 mg tablet 5 mg PO BID Referrals / Follow Up: Errol Shahid MD [Primary Care Provider] - Disposition Disposition (needs filled in before D/C Order can be placed): Longterm Facility (1) Anemia Qualifiers: Anemia type: iron deficiency Iron deficiency anemia type: other iron deficiency Qualified Code(s): D50.8 - Other iron deficiency anemias (2) GIB (gastrointestinal bleeding) Qualifiers: GI bleed type/associated pathology: unspecified gastrointestinal hemorrhage type Qualified Code(s): K92.2 - Gastrointestinal hemorrhage, unspecified 01/02/23 0957 <Electronically signed by Stefano Palmer MD> Cosigner Signature (if applicable): CC: Dr. Chasity Huffman MD; Dr. Errol Shahid MD; Dr. Helene Khan MD ~ [facility] Work Phone: 1(874) 451-580110-24-2023 Progress note Author Jim Sanon [facility] January 02, 2023 1:59pm Note Date/Time January 02, 2023 1 :59pm [facility] Medical Records Department [address] [place] [address] Progress Note - GI 01/02/23 0700 MR#: [id number] Acct: [id number] Name: KARLIE VALLE Rep #:[id number] : 1940 82 From: Jim Sanon DO PCP: Dr. Errol Shahid MD Status: ADM IN Location: [facility] AS243-6 Subjective Subjective Patient is doing well from a GI standpoint. She has not had any bleeding overnight with her anticoagulation restarted. Objective Data Objective Data Vital Signs: Vital Signs Temp Pulse Resp BP Pulse Ox O2 Del Method O2 Flow Rate 98.8 F 84 18 108/67 98 Room Air 2 01/02/23 10:34 01/02/23 10:34 01/02/23 10:34 01/02/23 10:34 01/02/23 10:34 01/02/23 10:34 01/01/23 13:20 Oxygen Flow Rate (L/min) 2 Oxygen Delivery Method Room Air Weight: 117 lb 11.629 oz Body Mass Index (BMI) 23.1 Intake & Output: Intake and Output for Last 24 Hours 12/31/22 01/01/23 01/02/23 23:59 23:59 23:59 Intake Total 1630 / 2230 820 / 820 110 / 110 Output Total 2500 / 2500 Balance -870 / -270 820 / 820 110 / 110 Lab / Micro Data 01/01/23 05:40 01/02/23 05:50 Labs: Laboratory Results - last 24 hr 01/02/23 05:50: Sodium 143, Potassium 3.7, Chloride 118 H, Carbon Dioxide 21.0, Anion Gap 4 L, BUN 20 H, Creatinine 1.11 H, Estim Creat Clear Calc 29.04, Est GFR (MDRD) Af Amer 61, Est GFR (MDRD) Non-Af 50 L, BUN/Creatinine Ratio 18.0, Glucose 108 H, Calcium 8.8 Micro: Microbiology 12/30/22 16:25 Stool Stool Occult Blood (YANCI) - Final Physical Exam Narrative General: Alert, Oriented x3, Cooperative, No apparent distress HEENT: Atraumatic, PERRLA, EOMI, Normocephalic Oral: Moist Mucosa Neck: Supple, No JVD Lungs: Diminished, Normal air movement, No rhonchi, No wheeze, No rales Cardiovascular: Regular rate, Regular Rhythm, Normal S1, Normal S2, No murmurs Abdomen: Soft, Non Tender, Non-Distended, No Hepato-splenomegaly Extremities: No edema, Capillary Refill Less than 3 Seconds Skin: No rashes, No breakdown Musculoskeletal: No Tenderness to Palpation of Joints or Extremities Neurological: Cranial nerves II-XII grossly intact, Motor Exam 5/5 strength throughout, Sensory exam intact to light touch and pain Psych/Mental Status: Normal Affect, Appropriate Assessment & Plan Assessment/Plan (1) Anemia: QUALIFIERS: Anemia type: iron deficiency Iron deficiency anemia type: other iron deficiency Qualified Code(s): D50.8 - Other iron deficiency anemias (2) GIB (gastrointestinal bleeding): QUALIFIERS: GI bleed type/associated pathology: unspecified gastrointestinal hemorrhage type Qualified Code(s): K92.2 - Gastrointestinal hemorrhage, unspecified PLAN: Plan 82 yo with afib on anticoagulation with recurrent gi bleed secondary to rectal prolapse. Rec: ok to restart anticoagulaiton, Dulcolax 20mg bid to keep stool soft with psyllium based fiber once a day Charges/Coding Visit Charges Inpatient E&M: 79148 Subs Hosp L3 01/02/23 1352 <Electronically signed by Jim Sanon DO> Cosigner Signature (if applicable): CC: ~ Signed [facility] Work Phone: 1(381) 584-201210-23-2023 Progress note Author Jim Sanon [facility] January 01, 2023 9:20pm Note Date/Time January 01, 2023 9 :20pm [facility] Medical Records Department [address] [place] [address] Progress Note - GI 01/01/232112 MR#: [id number] Acct: [id number] Name: KARLIE VALLE Rep #:[id number] : 1940 82 From: Jim Sanon DO PCP: Dr. Errol Shahid MD Status: ADM IN Location: [facility] TK237-4 Subjective Subjective Patient underwent colonoscopy today and was discovered to have grade 2 to 3 rectal prolapse and severe anal fissure. The prolapse was reduced and the anal fissure was treated. Objective Data Objective Data Vital Signs: Vital Signs Temp Pulse Resp BP Pulse Ox O2 Del Method O2 Flow Rate 97.1 F L 125 H 18 140/73 H 98 Room Air 2 01/01/23 17:39 01/01/23 17:39 01/01/23 17:39 01/01/23 17:39 01/01/23 17:39 01/01/23 17:39 01/01/23 13:20 Oxygen Flow Rate (L/min) 2 Oxygen Delivery Method Room Air Weight: 117 lb 1.047 oz Body Mass Index (BMI) 22.9 Intake & Output: Intake and Output for Last 24 Hours 12/30/22 12/31/22 01/01/23 23:59 23:59 23:59 Intake Total 0 / 0 1630 / 2230 710 / 710 Output Total 2500 / 2500 Balance 0 / 0 -870 / -270 710 / 710 Lab / Micro Data 01/01/23 05:40 01/01/23 05:40 Labs: Laboratory Results - last 24 hr 01/01/23 05:40: WBC 11.6 H, RBC 4.10 L, Hgb 10.7 L, Hct 33.3 L, MCV 81.2, MCH 26.1 L, MCHC 32.1 D, RDW Std Deviation 48.6 H, RDW Coeff of Leif 16.9 H, Plt Count 363, MPV 9.6, Immature Gran % (Auto) 0.300, Neut % (Auto) 60.3, Lymph % (Auto) 25.8, Latimer % (Auto) 10.6 H, Eos % (Auto) 2.5, Baso % (Auto) 0.5, AbsoluteNeuts (auto) 7.0, Absolute Lymphs (auto) 2.98, Nucleated RBC % 0, Sodium 141, Potassium 2.9 L, Chloride 113 H, Carbon Dioxide 21.0, Anion Gap 7, BUN 17, Creatinine 0.85, Estim Creat Clear Calc 37.92, Est GFR (MDRD) Af Amer 83, Est GFR (MDRD) Non-Af 69, BUN/Creatinine Ratio 20.1 H, Glucose 103, Calcium 9.0 Micro: Microbiology 12/30/22 16:25 Stool Stool Occult Blood (YANCI) - Final Physical Exam Narrative General: Alert, Oriented x3, Cooperative, No apparent distress HEENT: Atraumatic, PERRLA, EOMI, Normocephalic Oral: Moist Mucosa Neck: Supple, No JVD Lungs: Diminished, Normal air movement, No rhonchi, No wheeze, No rales Cardiovascular: Regular rate, Regular Rhythm, Normal S1, Normal S2, No murmurs Abdomen: Soft, Non Tender, Non-Distended, No Hepato-splenomegaly Extremities: No edema, Capillary Refill Less than 3 Seconds Skin: No rashes, No breakdown Musculoskeletal: No Tenderness to Palpation of Joints or Extremities Neurological: Cranial nerves II-XII grossly intact, Motor Exam 5/5 strength throughout, Sensory exam intact to light touch and pain Psych/Mental Status: Normal Affect, Appropriate Assessment & Plan Assessment/Plan (1) Anemia: QUALIFIERS: Anemia type: iron deficiency Iron deficiency anemia type: other iron deficiency Qualified Code(s): D50.8 - Other iron deficiency anemias (2) GIB (gastrointestinal bleeding): QUALIFIERS: GI bleed type/associated pathology: unspecified gastrointestinal hemorrhage type Qualified Code(s): K92.2 - Gastrointestinal hemorrhage, unspecified PLAN: Plan 82 yo with afib on anticoagulation with recurrent gi bleed secondary to rectal prolapse. Rec: ok to restart anticoagulaiton, Dulcolax 20mg bid to keep stool soft with psyllium based fiber once a day Charges/Coding Visit Charges Inpatient E&M: 49893 Subs Hosp L3 01/01/232119 <Electronically signed by Jim Friend DO> Cosigner Signature (if applicable): CC: ~ Signed [facility] Work Phone: [phone] 318-652710-23-2023 Progress note Author Stefano Palmer [facility] January 01, 2023 11:45am Note Date/Time January 01, 2023 1 1:45am [facility] Medical Records Department [address] [place] [address] Progress Note - Hospitalist 01/01/23 1142 MR#: [id number] Acct: [id number] Name: KARLIE VALLE Rep #:[id number] : 1940 82 From: Stefano guerrero MD PCP: Dr. Errol Shahid MD Status: ADM IN Location: MS3 HH882-5 Subjective Subjective Doing well, no issues overnight. Has some cramping abdominal pain consistent with the prep for colonoscopy and her recent GI bleeding Objective Data Objective Data Vital Signs: Vital Signs Temp Pulse Resp BP Pulse Ox O2 Del Method 98.4 F 60 18 113/64 98 Room Air 01/01/23 09:55 01/01/23 09:55 01/01/23 09:57 01/01/23 09:55 01/01/23 09:55 01/01/23 09:57 Oxygen Delivery Method Room Air Weight: 117 lb 1.047 oz Body Mass Index (BMI) 22.9 Intake & Output: Intake and Output for Last 24 Hours 12/31/22 01/01/23 01/02/23 03:59 03:59 03:59 Intake Total 1110 / 1110 1120 / 1120 0 / 0 Output Total 500 / 500 2000 / 2000 Balance 610 / 610 -880 / -880 0 / 0 Lab / Micro Data 01/01/23 05:40 01/01/23 05:40 Labs: Laboratory Results - last 24 hr 01/01/23 05:40: WBC 11.6 H, RBC 4.10 L, Hgb 10.7 L, Hct 33.3 L, MCV 81.2, MCH 26.1 L, MCHC 32.1 D, RDW Std Deviation 48.6 H, RDW Coeff of Leif 16.9 H, Plt Count 363, MPV 9.6, Immature Gran % (Auto) 0.300, Neut % (Auto) 60.3, Lymph % (Auto) 25.8, Latimer % (Auto) 10.6 H, Eos % (Auto) 2.5, Baso % (Auto) 0.5, AbsoluteNeuts (auto) 7.0, Absolute Lymphs (auto) 2.98, Nucleated RBC % 0, Sodium 141, Potassium 2.9 L, Chloride 113 H, Carbon Dioxide 21.0, Anion Gap 7, BUN 17, Creatinine 0.85, Estim Creat Clear Calc 37.92, Est GFR (MDRD) Af Amer 83, Est GFR (MDRD) Non-Af 69, BUN/Creatinine Ratio 20.1 H, Glucose 103, Calcium 9.0 Micro: Microbiology 12/30/22 16:25 Stool Stool Occult Blood (YANCI) - Final Physical Exam Narrative General: Alert, Oriented x3, Cooperative, No apparent distress HEENT: Atraumatic, PERRLA, EOMI, Normocephalic Oral: Moist Mucosa Neck: Supple, No JVD Lungs: Diminished, Normal air movement, No rhonchi, No wheeze, No rales Cardiovascular: Regular rate, Regular Rhythm, Normal S1, Normal S2, No murmurs Abdomen: Soft, Non Tender, Non-Distended, No Hepato-splenomegaly Extremities: No edema, Capillary Refill Less than 3 Seconds Skin: No rashes, No breakdown Musculoskeletal: No Tenderness to Palpation of Joints or Extremities Neurological: Cranial nerves II-XII grossly intact, Motor Exam 5/5 strength throughout, Sensory exam intact to light touch and pain Psych/Mental Status: Normal Affect, Appropriate Assessment & Plan Assessment/Plan (1) Anemia: QUALIFIERS: Anemia type: iron deficiency Iron deficiency anemia type: other iron deficiency Qualified Code(s): D50.8 - Other iron deficiency anemias PLAN: Plan #Acute on chronic anemia due to acute GI bleed/GERD * Hb was 6.1 on admission. Is s/p 2 units of PRBCs * on IV pantoprazole 40mg bid. states she has had an ulcer in the past. * currently NPO * gastroenterology consulted. 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 A-fib/HTN/HLD/history of CVA ? Continue with her blood pressure medications, will hold her Eliquis secondary to GI bleeding ? We will monitor and make adjustments as necessary ? Continue with statin 3. Anxiety/depression/chronic migraines ? Stable ? Continue with escitalopram DVT: SCDs Charges/Coding Visit Charges Inpatient E&M: 38041 Subs Hosp L2 01/01/23 1145 <Electronically signed by Stefano Palmer MD> Cosigner Signature (if applicable): CC: ~ Signed [facility] Work Phone: [phone]) 352-914410-23-2023 Procedure [facility] 01-01-2023 Procedure [facility]10-22-2023 Progress note Author Helene Khan [facility] December 31, 2022 1:19pm Note Date/Time December 31, 2022 1 :19pm [facility] Medical Records Department [address] [place] [address] Progress Note 12/31/22 1310 MR#: [id number] Acct: [id number] Name: KARLIE VALLE Rep #:[id number] : 1940 82 From: Helene Khan MD PCP: Dr. Errol Shahid MD Status: ADM IN Location: [place] [address] Subjective Subjective Patient seen and examined. She was admitted on account of anemia. Hemoglobin was 6.1. She has been having dark stools also complains of some epigastric pain. She denies any dizziness or lightheadedness, nausea vomiting or diarrhea. Review of systems otherwise negative. She has been managed for acute on chronic anemia due to probable GI bleed. Gastroenterology on board and for likely EGD today. Objective Data Objective Data Vital Signs: Vital Signs Temp Pulse Resp BP Pulse Ox O2 Del Method 97.9 F 77 16 169/79 H 98 Room Air 12/31/22 11:43 12/31/22 11:43 12/31/22 11:43 12/31/22 11:43 12/31/22 11:43 12/31/22 11:43 Oxygen Delivery Method Room Air Weight: 117 lb 1.047 oz Body Mass Index (BMI) 22.8 Intake & Output: Intake and Output for Last 24 Hours 12/29/22 12/30/22 12/31/22 23:59 23:59 23:59 Intake Total 0 / 0 1220 / 1220 Output Total 2500 / 2500 Balance 0 / 0 -1280 / -1280 Lab / Micro Data 12/31/22 05:50 12/31/22 05:50 Labs: Laboratory Results - last 24 hr 12/30/22 16:17: WBC 11.7 H, RBC 3.02 L, Hgb 6.9 L, Hct 24.7 L, MCV 81.8, MCH 22.8 L, MCHC 27.9 L, RDW Std Deviation 47.8 H, RDW Coeff of Leif 15.9 H, Plt Count 446, MPV 10.0, Immature Gran % (Auto) 0.300, Neut % (Auto) 55.8, Lymph % (Auto) 30.3, Latimer % (Auto) 9.5, Eos % (Auto) 3.4, Baso % (Auto) 0.7, Absolute Neuts (auto) 6.5, Absolute Lymphs (auto) 3.56, Nucleated RBC % 0, Sodium 141, Potassium 3.9, Chloride 110 H, Carbon Dioxide 24.0, Anion Gap 7, BUN 22 H, Creatinine 0.95, Estim Creat Clear Calc 33.93, Est GFR (MDRD) Af Amer 72, Est GFR (MDRD) Non-Af 60, BUN/Creatinine Ratio 23.1 H, Glucose 128 H, Calcium 9.2, Total Bilirubin 0.30, AST 18, ALT 30, Alkaline Phosphatase 109, Total Protein 7.7, Albumin 3.5, Globulin 4.2, Albumin/Globulin Ratio 0.8 L, Blood Type B NEGATIVE, Antibody Screen NEGATIVE, Crossmatch See Detail 12/31/22 01:55: Hgb 11.3 L, Hct 36.0 L 12/31/22 05:50: WBC 13.0 H, RBC 4.09 L, Hgb 10.1 L, Hct 33.1 L, MCV 80.9 L, MCH 24.7 L, MCHC 30.5 L D, RDW Std Deviation 46.0 H, RDW Coeff of Leif 15.9 H, Plt Count 354, MPV 9.7, Sodium 141, Potassium 3.7, Chloride 113 H, Carbon Dioxide 22.0, Anion Gap 6, BUN 16, Creatinine 0.80, Estim Creat Clear Calc 40.29, Est GFR (MDRD) Af Amer 88, Est GFR (MDRD) Non-Af 73, BUN/Creatinine Ratio 19.9, Glucose 122 H, Calcium 8.9, Total Bilirubin 1.10 H, AST 16, ALT 22, Alkaline Phosphatase 93, Total Protein 6.9, Albumin 3.1 L, Globulin 3.8, Albumin/GlobulinRatio 0.8 L Physical Exam Const alert, oriented x3, no apparent distress and well nourished Constitutional Narrative: Frail General Appearance: cooperative HEENT normocephalic and head/scalp atraumatic Mouth: dry mucous membranes Eyes PERRL and EOMs intact bilaterally Neck no lymphadenopathy, supple and no JVD Lymph Lymphatic: no lymphadenopathy noted and no lymphedema noted Resp normal respiratory effort, normal air movement and clear to auscultation bilaterally Cardio regular rate, regular rhythm, S1 normal heart sound, S2 normal heart sound and no murmurs GI soft to palpation, non-tender and non-distended GI Narrative: Mild epigastric pain. No guarding or rebound tenderness. Extremity normal capillary refill, no clubbing, cyanosis or edema and no calf tenderness General Extremity: no tenderness to palpation of joints or extremities Skin General Skin Exam: no breakdown Neuro CN's II-XII intact bilaterally, no focal motor deficits, no sensory deficits noted and deep tendon reflexes 2+ bilaterally Motor Exam: strength 5/5 throughout Psych thought process normal and cooperative Appearance: appropriate Assessment & Plan Assessment/Plan (1) Anemia: QUALIFIERS: Anemia type: iron deficiency Iron deficiency anemia type: other iron deficiency Qualified Code(s): D50.8 - Other iron deficiency anemias PLAN: Plan #Acute on chronic anemia due to acute GI bleed * Hb was 6.1 on admission. Is s/p 2 units of PRBCs * Hb is now 10.1 * on IV pantoprazole 40mg bid. states she has had an ulcer in the past. * currently NPO * gastroenterology consulted. 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 On statin and metoprolol. #Paroxysmal A-fib: On metoprolol. Eliquis on hold due to GI bleed. #Depression: on escitalopram #Hyperlipidemia: On statin #Chronic migraine headaches: Currently stable. #GERD: On PPI DVT prophylaxis; SCDs Charges/Coding Visit Charges Inpatient E&M: 50681 Subs Hosp L2 12/31/22 1516 <Electronically signed by Helene Khan MD> Helene Khan MD Cosigner Signature (if applicable): CC: ~ Signed [facility] Work Phone: 1(608) 279-919410-22-2023 Progress note Author Jim Friend [facility] December 31, 2022 11:40am Note Date/Time December 31, 2022 1 1:40am [facility] Medical Records Department [address] [place] [address] Progress Note - GI 12/31/22 1139 MR#: [id number] Acct: [id number] Name: KARLIE VALLE Rep #:[id number] : 1940 82 From: Jim Sanon DO PCP: Dr. Errol Shahid MD Status: ADM IN Location: [facility]3 EW757-3 Subjective Subjective Patient underwent upper endoscopy today she did have angiodysplastic lesion but there was no stigmata of bleeding. They would treated endoscopically with heater probe. Objective Data Objective Data Vital Signs: Vital Signs Temp Pulse Resp BP Pulse Ox O2 Del Method 99.6 F H 75 16 158/58 H 94 Room Air 12/31/22 11:09 12/31/22 11:09 12/31/22 11:09 12/31/22 11:09 12/31/22 11:09 12/31/22 11:09 Oxygen Delivery Method Room Air Weight: 117 lb 1.047 oz Body Mass Index (BMI) 22.8 Intake & Output: Intake and Output for Last 24 Hours 12/29/22 12/30/22 12/31/22 23:59 23:59 23:59 Intake Total 0 / 0 1220 / 1220 Output Total 2500 / 2500 Balance 0 / 0 -1280 / -1280 Lab / Micro Data 12/31/22 05:50 12/31/22 05:50 Labs: Laboratory Results - last 24 hr 12/30/22 16:17: WBC 11.7 H, RBC 3.02 L, Hgb 6.9 L, Hct 24.7 L, MCV 81.8, MCH 22.8 L, MCHC 27.9 L, RDW Std Deviation 47.8 H, RDW Coeff of Leif 15.9 H, Plt Count 446, MPV 10.0, Immature Gran % (Auto) 0.300, Neut % (Auto) 55.8, Lymph % (Auto) 30.3, Latimer % (Auto) 9.5, Eos % (Auto) 3.4, Baso % (Auto) 0.7, Absolute Neuts (auto) 6.5, Absolute Lymphs (auto) 3.56, Nucleated RBC % 0, Sodium 141, Potassium 3.9, Chloride 110 H, Carbon Dioxide 24.0, Anion Gap 7, BUN 22 H, Creatinine 0.95, Estim Creat Clear Calc 33.93, Est GFR (MDRD) Af Amer 72, Est GFR (MDRD) Non-Af 60, BUN/Creatinine Ratio 23.1 H, Glucose 128 H, Calcium 9.2, Total Bilirubin 0.30, AST 18, ALT 30, Alkaline Phosphatase 109, Total Protein 7.7, Albumin 3.5, Globulin 4.2, Albumin/Globulin Ratio 0.8 L, Blood Type B NEGATIVE, Antibody Screen NEGATIVE, Crossmatch See Detail 12/31/22 01:55: Hgb 11.3 L, Hct 36.0 L 12/31/22 05:50: WBC 13.0 H, RBC 4.09 L, Hgb 10.1 L, Hct 33.1 L, MCV 80.9 L, MCH 24.7 L, MCHC 30.5 L D, RDW Std Deviation 46.0 H, RDW Coeff of Leif 15.9 H, Plt Count 354, MPV 9.7, Sodium 141, Potassium 3.7, Chloride 113 H, Carbon Dioxide 22.0, Anion Gap 6, BUN 16, Creatinine 0.80, Estim Creat Clear Calc 40.29, Est GFR (MDRD) Af Amer 88, Est GFR (MDRD) Non-Af 73, BUN/Creatinine Ratio 19.9, Glucose 122 H, Calcium 8.9, Total Bilirubin 1.10 H, AST 16, ALT 22, Alkaline Phosphatase 93, Total Protein 6.9, Albumin 3.1 L, Globulin 3.8, Albumin/Globulin Ratio 0.8 L Physical Exam Narrative Physical Examination: General: Awake, alert, oriented x 3 and cooperative, seated upright in the ED bed in no apparent distress although anxious appearing. Skin: Normal color, normal turgor, no icterus, no cyanosis. HEENT: AT/NC, EOMI, PERRLA, MMM, no carotid bruits or JVD noted, chronic mild aphasia. Lungs: Mildly diminished, greater bases, proper effort no rales, ronchi or wheezing. Heart: Regular rate and rhythm; no gallop, rub audible, small focal region on the left lower anterior chest uncomfortable with palpation, reproducible which is similar to what she is complained of she notes. Abdomen: Soft, NTTP, ND, mildly hyperactive BS, no HSM. Extremities: No cyanosis, clubbing, or edema, compression stockings in place. Neurological: Patient awake, alert, oriented as noted, chronic mild aphasia as well as left-sided weakness/hemiparesis following prior CVA, cognitive function intact; pupils equally reactive to light and accommodation, cranial nerves grossly normal, strength moderately global decrease secondary to prior history and acute presentation Psychiatric: Affect appears anxious, does have underlying anxiety and depressivehistory. Assessment & Plan Assessment/Plan (1) Anemia: QUALIFIERS: Anemia type: iron deficiency Iron deficiency anemia type: other iron deficiency Qualified Code(s): D50.8 - Other iron deficiency anemias PLAN: Differential diagnosis would be hemorrhoidal bleeding, and dysplastic lesions, neoplasia of the lower GI tract. I talked this over with her daughter and because she needs Eliquis therapy we agreed it was advantageous for her to get her lower GI tract evaluated while here in the hospital. I will prep her for colonoscopy tomorrow. Charges/Coding Visit Charges Inpatient E&M: 51204 Subs Hosp L2 12/31/22 1140 <Electronically signed by Jim Sanon DO> Cosigner Signature (if applicable): CC: ~ Signed [facility] Work Phone: [phone] 402-223310-22-2023 Consult note Author Jim Sanon [facility] December 31, 2022 10:43am Note Date/Time December 31, 2022 1 0:43am [facility] Medical Records Department [address] [place] [address] Consultation - GI 12/31/22 1041 MR#: [id number] Acct: [id number] Name: KARLIE VALLE Rep #:[id number] : 1940 82 From: Jim Sanon DO PCP: Dr. Errol Shahid MD Status: ADM IN Location: [facility]3 [id number] HPI Consult Data Date of Consult: 12/30/22 HPI Narrative Reason for Consultation: Anemia HPI Narrative: KARLIE VALLE, is a 82 F who presents for the evaluation of abnormal labs. I gota chance to know her over a year ago for acute blood loss anemia. She was discovered to have multiple bleeding areas and upper GI tract including the stomach and the duodenum. She has a past medical history of RLS, Anxiety and Depression, Hx esophageal stenosis, A-fib, Hx CVA, Chronic migraine headaches, IBS, Chronic normocytic anemia/Fe deficiency anemia who presents to the [facility] ED on 12/30/22 per PCP recommendation secondary to abnormal outpatient labs orderedper Dr. Tripp Shahid with noted Hgb level 6.1. Her most recently 09/28/2022 hemoglobin 11.8. Patient does admit to dark black stools but timeline is unclear although daughter who is present does not believethis is true primarily reports the patient as being lightheaded and dizzy. Patient denies any dyspnea associated. Work-up in the ED included T97.8, heart rate 82, BP 172/69, respiratory rate 14, 99% on room air, CBC with WBC 11.7, hemoglobin 6.9, MCV 81.8, platelet 446 without marked shift, CMP with chloride 110, BUN/creatinine 22/0.95, glucose 128otherwise not marked appearing, hepatic profile unremarkable, type and cross for2 unit initiated per ED physician, occult blood requested per ED but not sent because no stool in the vault and no gross blood noted. [facility] Medical History (Updated 12/30/22 @ 20:43 by Stephanie Casanova) Angiodysplasia of duodenum Angiodysplasia of stomach Arthritis Atherosclerosis of coronary artery of [place] heart without angina pectoris Atrial fibrillation Cardiology follow-up encounter Esophageal stenosis Essential hypertension GERD (gastroesophageal reflux disease) GIB (gastrointestinal bleeding) History of hiatal hernia HTN (hypertension) Hyperlipidemia IBS (irritable bowel syndrome) Kidney stones LAE (left atrial enlargement) Migraine headache Non-smoker Osteoporosis Other chronic sinusitis Paroxysmal A-fib Polyp of nasal cavity Shingles Stroke/cerebrovascular accident Wears glasses Wears hearing aid Home Medications acetaminophen 500 mg tablet 1,000 mg (2 x 500 mg) PO Q8 PRN fever/pain 1-10 #0 tabs 02/20/22 [Rx Last Taken 12/29/22] apixaban 5 mg tablet (Eliquis) 5 mg PO BID Blood Thinner 02/20/22 [History Last Taken 12/28/22] atorvastatin 40 mg tablet 40 mg PO QHS Cholesterol 02/20/22 [History Last Taken 12/29/22] calcium carbonate 500 mg-vitamin D3 5 mcg (200 unit) tablet (Oyster Shell Calcium-Vitamin D3) 1 tab PO BREAKFAST Supplement 02/20/22 [History Last Taken 12/30/22] metoprolol tartrate 25 mg tablet 12.5 mg PO BID BP 02/20/22 [History Last Taken 12/30/22] mirtazapine 15 mg tablet 22.5 mg PO QHS Check with primary doctor 02/20/22 [History Last Taken 12/29/22] pantoprazole 40 mg tablet,delayed release 40 mg PO DAILY GERD 02/20/22 [History Last Taken 12/30/22] menthol 0.44 %-zinc oxide 20.6 % topical ointment (Calmoseptine) 1 applic topical BID #0 grams 03/09/22 [Rx Last Taken Unknown] pramipexole 0.125 mg tablet 0.125 mg PO QHS #0 tabs 03/09/22 [Rx Last Taken 12/29/22] escitalopram oxalate 10 mg tablet 10 mg PO DAILY depression 12/30/22 [History Last Taken 12/29/22] ferrous sulfate 325 mg (65 mg iron) tablet (Feosol) 325 mg PO DAILY 12/30/22 [History Last Taken 12/30/22] sennosides 8.6 mg-docusate sodium 50 mg tablet (2-in-1 Laxative) 1 tab-cap PO DAILY constipation 12/30/22 [History Last Taken 12/30/22] Allergy/AdvReac Type Severity Reaction Status Date / Time ranolazine [From Ranexa] AdvReac Severe low urine Verified 12/30/22 16:02 output, rash oseltamivir [From Tamiflu] AdvReac Unknown Verified 12/30/22 16:02 Family History Father CAD (coronary artery disease) CVA (cerebral vascular accident) Hypertension Mother Hypertension Brother Hypertension Sister Diabetes Other Heart disease Surgical History H/O sinus surgery History of cataract surgery History of left heart catheterization (04/16/17) History of tonsillectomy Social History (Updated 12/30/22 @ 17:[address] Chasity Huffman MD) household members: none housing: fpc Smoking Status: Never smoker alcohol intake: never substance use type: does not use ROS ROS Narrative Admission Review of Systems: CONSTITUTIONAL: No weight loss, fever, chills, + weakness or fatigue. HEENT: + LH/Dizziness. Eyes: No visual loss, blurred vision, double vision or yellow sclerae. Ears, Nose, Throat: No hearing loss, sneezing, congestion, runny nose or sore throat. SKIN: No rash or itching, lesions, wounds. CARDIOVASCULAR: + LH/dizziness, specifical focal area of musculoskeletal L sidedchest discomfort which is reproducible/worse with movement.No chest pain, chest pressure or chest discomfort, palpitations, edema, orthopnea, syncopal events. RESPIRATORY: No shortness of breath, cough or sputum, wheezing, hemoptysis. GASTROINTESTINAL: + Dark black stools. No anorexia, nausea, vomiting, diarrhea, abdominal pain, BRBPR. GENITOURINARY: No dysuria, frequency, urgency or retention. NEUROLOGICAL: + LH/Dizziness. Chronic L sided hemiparesis with aphasia, No syncope, paralysis, change in bowel or bladder control, seizure. MUSCULOSKELETAL: + muscle, back pain, joint pain or stiffness. HEMATOLOGIC: + anemia, bleeding or bruising. LYMPHATICS: No enlarged nodes. No history of splenectomy. PSYCHIATRIC: + history of depression or anxiety. ENDOCRINOLOGIC: No reports of sweating, cold or heat intolerance. No polyuria orpolydipsia. ALLERGIES: No history of asthma, hives, eczema or rhinitis. Physical Exam Narrative Physical Examination: General: Awake, alert, oriented x 3 and cooperative, seated upright in the ED bed in no apparent distress although anxious appearing. Skin: Normal color, normal turgor, no icterus, no cyanosis. HEENT: AT/NC, EOMI, PERRLA, MMM, no carotid bruits or JVD noted, chronic mild aphasia. Lungs: Mildly diminished, greater bases, proper effort no rales, ronchi or wheezing. Heart: Regular rate and rhythm; no gallop, rub audible, small focal region on the left lower anterior chest uncomfortable with palpation, reproducible which is similar to what she is complained of she notes. Abdomen: Soft, NTTP, ND, mildly hyperactive BS, no HSM. Extremities: No cyanosis, clubbing, or edema, compression stockings in place. Neurological: Patient awake, alert, oriented as noted, chronic mild aphasia as well as left-sided weakness/hemiparesis following prior CVA, cognitive function intact; pupils equally reactive to light and accommodation, cranial nerves grossly normal, strength moderately global decrease secondary to prior history and acute presentation Psychiatric: Affect appears anxious, does have underlying anxiety and depressivehistory. Lab / Micro Data 12/31/22 05:50 12/31/22 05:50 Labs: Laboratory Results - last 24 hr 12/30/22 16:17: WBC 11.7 H, RBC 3.02 L, Hgb 6.9 L, Hct 24.7 L, MCV 81.8, MCH 22.8 L, MCHC 27.9 L, RDW Std Deviation 47.8 H, RDW Coeff of Leif 15.9 H, Plt Count 446, MPV 10.0, Immature Gran % (Auto) 0.300, Neut % (Auto) 55.8, Lymph % (Auto) 30.3, Latimer % (Auto) 9.5, Eos % (Auto) 3.4, Baso % (Auto) 0.7, Absolute Neuts (auto) 6.5, Absolute Lymphs (auto) 3.56, Nucleated RBC % 0, Sodium 141, Potassium 3.9, Chloride 110 H, Carbon Dioxide 24.0, Anion Gap 7, BUN 22 H, Creatinine 0.95, Estim Creat Clear Calc 33.93, Est GFR (MDRD) Af Amer 72, Est GFR (MDRD) Non-Af 60, BUN/Creatinine Ratio 23.1 H, Glucose 128 H, Calcium 9.2, Total Bilirubin 0.30, AST 18, ALT 30, Alkaline Phosphatase 109, Total Protein 7.7, Albumin 3.5, Globulin 4.2, Albumin/Globulin Ratio 0.8 L, Blood Type B NEGATIVE, Antibody Screen NEGATIVE, Crossmatch See Detail 12/31/22 01:55: Hgb 11.3 L, Hct 36.0 L 12/31/22 05:50: WBC 13.0 H, RBC 4.09 L, Hgb 10.1 L, Hct 33.1 L, MCV 80.9 L, MCH 24.7 L, MCHC 30.5 L D, RDW Std Deviation 46.0 H, RDW Coeff of Leif 15.9 H, Plt Count 354, MPV 9.7, Sodium 141, Potassium 3.7, Chloride 113 H, Carbon Dioxide 22.0, Anion Gap 6, BUN 16, Creatinine 0.80, Estim Creat Clear Calc 40.29, Est GFR (MDRD) Af Amer 88, Est GFR (MDRD) Non-Af 73, BUN/Creatinine Ratio 19.9, Glucose 122 H, Calcium 8.9, Total Bilirubin 1.10 H, AST 16, ALT 22, Alkaline Phosphatase 93, Total Protein 6.9, Albumin 3.1 L, Globulin 3.8, Albumin/GlobulinRatio 0.8 L Assessment & Plan Assessment/Plan (1) GERD (gastroesophageal reflux disease): PLAN: She has a history of gastroesophageal reflux disease with possible erosiveesophagitis that could be contributing to her anemia and it also can be contributing to her heme positive stools. She is on PPI therapy. I would continue that. (2) Hiatal hernia: PLAN: In the setting of a hiatal hernia she is at risk for Jono's erosions inchronic anemia secondary to bleeding and upper GI tract. She should have an upper endoscopy to evaluate her upper GI tract (3) Positive occult stool blood test: PLAN: . Positive occult blood test in the setting of a history of duodenitis seen on previous upper endoscopy 2014 and with a history of melanotic stool. That does increase her risk of having a duodenal ulcer. I have talked with her daughters extensively and they have agreed for her to have an upper endoscopy tosee if it is safe for her to go on anticoagulation. I told them if we did not find anything in her upper GI tract she will need to then have a colonoscopy andpossible capsule endoscopy. Charges/Coding Visit Charges Inpatient E&M: 48515 Init Hosp L3 12/31/22 1043 <Electronically signed by Jim Friend DO> Cosigner Signature (if applicable): CC: Dr. Chasity Huffman MD; Dr. Errol Shahid MD~ Signed [facility] Work Phone: 1(275) 991-150410-22-2023 Procedure [facility] 12-31-2022 Procedure [facility]10-21-2023 History and physical note Author Chasity Huffman [facility] December 30, 2022 5:42pm Note Date/Time December 30, 2022 5 :12pm [facility] Medical Records Department [address] [place] [address] H&P Exam - Hospitalist 12/30/22 1707 MR#: [id number] Acct: [id number] Name: KARLIE VALLE Rep #:[id number] : 1940 82 From: Chasity Huffman MD PCP: Dr. Errol Shahid MD Status: ADM IN Location: [facility] AS660-5 HPI - General General Date of Admission: 12/30/22 Date of Service: 12/30/22 Chief Complaint: Dizziness, lightheadedness. HPI Narrative The patient is an 82 y/o F w/ PMHx: RLS, Anxiety and Depression, Hx esophageal stenosis, Hx GI bleed w/ angiodysplasia duodenum/stomach, GERD, HTN, HLD, PAF, Hx CVA, Chronic migraine headaches, IBS, Chronic normocytic anemia/Fe deficiencyanemia who presents to the [facility] ED on 12/30/22 per PCP recommendation secondary to abnormal outpatient labs ordered per Dr. Tripp Shahid with noted Hgb level 6.1, MCV 82.4 with patient reported lightheadedness, dizziness, increased fatigue. Of note patient had CBC also in 12/28/2022 with hemoglobin at that time 6.7, MCV 82.9 with Eliquis held per PCP with repeat level unfortunately noted to be 6.1 prompting the referral for evaluation with prior to this recent assessment her level most recently 09/28/2022 hemoglobin 11.8. Patient does admit to dark black stools but timeline is unclear although daughter who is present does not believe this is true primarily reports the patient as being lightheaded and dizzy. Patient denies any dyspnea associated. Patient does complain of left focal anterior chest discomfort which is reproducible upon palpation and she does confirm that this is the discomfort she has been having worse with certain types of movement. Work-up in the ED included T97.8, heart rate 82, BP 172/69, respiratory rate 14, 99% on room air, CBC with WBC 11.7, hemoglobin 6.9, MCV 81.8, platelet 446 without marked shift, CMP with chloride 110, BUN/creatinine 22/0.95, glucose 128 otherwise not marked appearing, hepaticprofile unremarkable, type and cross for 2 unit initiated per ED physician, occult blood requested per ED but not sent because no stool in the vault and no gross blood noted. [facility] Medical History (Updated 12/30/22 @ 17:04 by Danyel Viveros MD) Angiodysplasia of duodenum Angiodysplasia of stomach Arthritis Atherosclerosis of coronary artery of [place] heart without angina pectoris Atrial fibrillation Cardiology follow-up encounter Esophageal stenosis Essential hypertension GERD (gastroesophageal reflux disease) GIB (gastrointestinal bleeding) History of hiatal hernia Hyperlipidemia IBS (irritable bowel syndrome) Kidney stones LAE (left atrial enlargement) Migraine headache Non-smoker Osteoporosis Other chronic sinusitis Paroxysmal A-fib Polyp of nasal cavity Shingles Stroke/cerebrovascular accident Wears glasses Wears hearing aid Home Medications acetaminophen 500 mg tablet 1,000 mg (2 x 500 mg) PO Q8 PRN fever/pain 1-10 #0 tabs 02/20/22 [Rx Last Taken 12/23/22] apixaban 5 mg tablet (Eliquis) 5 mg PO BID Blood Thinner 02/20/22 [History Last Taken 12/29/22] atorvastatin 40 mg tablet 40 mg PO QHS Cholesterol 02/20/22 [History Last Taken 12/29/22] calcium carbonate 500 mg-vitamin D3 5 mcg (200 unit) tablet (Oyster Shell Calcium-Vitamin D3) 1 tab PO BREAKFAST Supplement 02/20/22 [History Last Taken 12/30/22] metoprolol tartrate 25 mg tablet 12.5 mg PO BID BP 02/20/22 [History Last Taken 12/30/22] mirtazapine 15 mg tablet 15 mg PO QHS Check with primary doctor 02/20/22 [History Last Taken 12/29/22] pantoprazole 40 mg tablet,delayed release 40 mg PO BID GERD 02/20/22 [History Last Taken 12/30/22] menthol 0.44 %-zinc oxide 20.6 % topical ointment (Calmoseptine) 1 applic topical BID #0 grams 03/09/22 [Rx Last Taken Unknown] pramipexole 0.125 mg tablet 0.125 mg PO QHS #0 tabs 03/09/22 [Rx Last Taken 12/29/22] escitalopram oxalate 10 mg tablet 10 mg PO DAILY 12/30/22 [History Last Taken 12/30/22] ferrous sulfate 325 mg (65 mg iron) tablet (Feosol) 325 mg PO DAILY 12/30/22 [History Last Taken 12/30/22] Allergy/AdvReac Type Severity Reaction Status Date / Time ranolazine [From Ranexa] AdvReac Severe low urine Verified 12/30/22 16:02 output, rash oseltamivir [From Tamiflu] AdvReac Unknown Verified 12/30/22 16:02 Family History Father CAD (coronary artery disease) CVA (cerebral vascular accident) Hypertension Mother Hypertension Brother Hypertension Sister Diabetes Other Heart disease Surgical History H/O sinus surgery History of cataract surgery History of left heart catheterization (04/16/17) History of tonsillectomy Social History (Updated 12/30/22 @ 17:[address] Chasity Huffman MD) household members: none housing: fpc Smoking Status: Never smoker alcohol intake: never substance use type: does not use ROS ROS Narrative Admission Review of Systems: CONSTITUTIONAL: No weight loss, fever, chills, + weakness or fatigue. HEENT: + LH/Dizziness. Eyes: No visual loss, blurred vision, double vision or yellow sclerae. Ears, Nose, Throat: No hearing loss, sneezing, congestion, runny nose or sore throat. SKIN: No rash or itching, lesions, wounds. CARDIOVASCULAR: + LH/dizziness, specifical focal area of musculoskeletal L sidedchest discomfort which is reproducible/worse with movement.No chest pain, chest pressure or chest discomfort, palpitations, edema, orthopnea, syncopal events. RESPIRATORY: No shortness of breath, cough or sputum, wheezing, hemoptysis. GASTROINTESTINAL: + Dark black stools. No anorexia, nausea, vomiting, diarrhea, abdominal pain, BRBPR. GENITOURINARY: No dysuria, frequency, urgency or retention. NEUROLOGICAL: + LH/Dizziness. Chronic L sided hemiparesis with aphasia, No syncope, paralysis, change in bowel or bladder control, seizure. MUSCULOSKELETAL: + muscle, back pain, joint pain or stiffness. HEMATOLOGIC: + anemia, bleeding or bruising. LYMPHATICS: No enlarged nodes. No history of splenectomy. PSYCHIATRIC: + history of depression or anxiety. ENDOCRINOLOGIC: No reports of sweating, cold or heat intolerance. No polyuria orpolydipsia. ALLERGIES: No history of asthma, hives, eczema or rhinitis. Vital Signs Vital Signs Vital Signs: 12/30/22 16:00 12/30/22 16:28 12/30/22 16:33 Temperature 97.8 F Temperature Source Temporal Pulse Rate 82 82 Pulse Rate [Lying] Pulse Rate [Sitting (for 1 minute prior to obtaining)] Pulse Rate [Standing (for 1 minute prior to obtaining)] Respiratory Rate 14 19 H Respiratory Effort Short of Breath Respiratory Pattern Tachypnea Blood Pressure 172/69 H 161/75 H Blood Pressure [Lying] Blood Pressure [Sitting (for 1 minute prior to obtaining)] Blood Pressure [Standing (for 1 minute prior to obtaining)] Blood Pressure Mean 103 103 Blood Pressure Mean [Lying] Blood Pressure Mean [Sitting (for 1 minute prior to obtaining)] Blood Pressure Mean [Standing (for 1 minute prior to obtaining)] Pulse Ox 99 98 Oxygen Delivery Method Room Air Room Air 12/30/22 16:22 Temperature Temperature Source Pulse Rate Pulse Rate [Lying] 77 Pulse Rate [Sitting (for 1 minute prior to obtaining)] 79 Pulse Rate [Standing (for 1 minute prior to obtaining)] 82 Respiratory Rate Respiratory Effort Respiratory Pattern Blood Pressure Blood Pressure [Lying] 166/77 H Blood Pressure [Sitting (for 1 minute prior to obtaining)] 177/70 H Blood Pressure [Standing (for 1 minute prior to obtaining)] 175/73 H Blood Pressure Mean Blood Pressure Mean [Lying] 106 Blood Pressure Mean [Sitting (for 1 minute prior to obtaining)] 105 Blood Pressure Mean [Standing (for 1 minute prior to obtaining)] 107 Pulse Ox Oxygen Delivery Method Weight Weight: 121 lb 14.65 oz Body Mass Index (BMI) 23.8 Physical Exam Narrative Physical Examination: General: Awake, alert, oriented x 3 and cooperative, seated upright in the ED bed in no apparent distress although anxious appearing. Skin: Normal color, normal turgor, no icterus, no cyanosis. HEENT: AT/NC, EOMI, PERRLA, MMM, no carotid bruits or JVD noted, chronic mild aphasia. Lungs: Mildly diminished, greater bases, proper effort no rales, ronchi or wheezing. Heart: Regular rate and rhythm; no gallop, rub audible, small focal region on the left lower anterior chest uncomfortable with palpation, reproducible which is similar to what she is complained of she notes. Abdomen: Soft, NTTP, ND, mildly hyperactive BS, no HSM. Extremities: No cyanosis, clubbing, or edema, compression stockings in place. Neurological: Patient awake, alert, oriented as noted, chronic mild aphasia as well as left-sided weakness/hemiparesis following prior CVA, cognitive function intact; pupils equally reactive to light and accommodation, cranial nerves grossly normal, strength moderately global decrease secondary to prior history and acute presentation Psychiatric: Affect appears anxious, does have underlying anxiety and depressivehistory. Results Lab / Micro Data 12/30/22 16:17 12/30/22 16:17 Labs: Laboratory Results - last 24 hr 12/30/22 16:17: WBC 11.7 H, RBC 3.02 L, Hgb 6.9 L, Hct 24.7 L, MCV 81.8, MCH 22.8 L, MCHC 27.9 L, RDW Std Deviation 47.8 H, RDW Coeff of Leif 15.9 H, Plt Count 446, MPV 10.0, Immature Gran % (Auto) 0.300, Neut % (Auto) 55.8, Lymph % (Auto) 30.3, Latimer % (Auto) 9.5, Eos % (Auto) 3.4, Baso % (Auto) 0.7, Absolute Neuts (auto) 6.5, Absolute Lymphs (auto) 3.56, Nucleated RBC % 0, Sodium 141, Potassium 3.9, Chloride 110 H, Carbon Dioxide 24.0, Anion Gap 7, BUN 22 H, Creatinine 0.95, Estim Creat Clear Calc 33.93, Est GFR (MDRD) Af Amer 72, Est GFR (MDRD) Non-Af 60, BUN/Creatinine Ratio 23.1 H, Glucose 128 H, Calcium 9.2, Total Bilirubin 0.30, AST 18, ALT 30, Alkaline Phosphatase 109, Total Protein 7.7, Albumin 3.5, Globulin 4.2, Albumin/Globulin Ratio 0.8 L, Crossmatch See Detail Assessment & Plan Assessment/Plan (1) Anemia requiring transfusions: PLAN: Plan The patient is an 82 y/o F w/ PMHx: RLS, Anxiety and Depression, Hx esophageal stenosis, Hx GI bleed w/ angiodysplasia duodenum/stomach, GERD, HTN, HLD, PAF, Hx CVA, Chronic migraine headaches, IBS, Chronic normocytic anemia/Fe deficiency anemia who presents to the [facility] ED on 12/30/22 per PCP recommendation secondary to abnormal outpatient labs ordered per Dr. Tripp Shahid with noted Hgb level 6.1, MCV 82.4 with patient reported lightheadedness, dizziness, increased fatigue. #1. Acute Suspected GI Bleed w/ resultant Acute Blood Loss Anemia on Chronic normocytic anemia/Fe Deficiency with prior GI bleed history with noted prior angiodysplasia duodenum/stomach on chronic oral anticoagulation: Admission Hgb 6.9 although obtained earlier in the day and was 6.7 at that time, MCV 81.8, will admit to MS given stable vital signs, maintain on judicious IVFs, continue ED initiated PRBC administration, cycle serial H+H, maintain on IV PPI, allow clears until midnight then NPO status. Guiac requested as no stool was in the vault upon ED evaluation. Gastroenterology Dr. Sanon consulted, pending. #2. Hx CVA: Patient with cerebral infarction involving the middle cerebral artery territory with associated left-sided weakness as well as aphasia and facial droop, continue statin, metoprolol, holding Eliquis given presentation asnoted. #3. PAF: We will continue patient home metoprolol regimen, given presentation holding Eliquis regimen. #4. Anxiety and depression: We will continue patient home escitalopram regimen. Patient is also listed on mirtazapine, clarifying. #5. Restless leg syndrome: We will continue patient home pramipexole regimen. #6. Hypertension: Continue home regimen including metoprolol with hold parameters as needed especially given presentation, PRN hydralazine. #7. Hyperlipidemia: We will continue patient on statin therapy. #8. Chronic migraine headaches: Not on any chronic preventative medication, encouraged outpatient follow-up as previously arranged. #9. GERD: We will maintain on IV PPI as noted. #10. Musculoskeletal anterior chest discomfort: Reproducible, musculoskeletal in nature, unfortunate given presentation unable to use any anti-inflammatory medication, will have Tylenol as needed, may use K-pad or icing pending which assist her discomfort more. #11. DVT prophylaxis: SCDs, holding patient home Eliquis regimen given presentation. #12. CODE status: DNR-CC per facility paperwork. Charges/Coding Visit Charges Inpatient E&M: 55569 Init Hosp L3 12/30/22 1742 <Electronically signed by Chasity Huffman MD> Cosigner Signature (if applicable): CC: Dr. Chasity Huffman MD; Dr. Errol Shahid MD~ Signed [facility] Work Phone: 1(357) 307-464910-21-2023 Discharge summary Author Danyel Viveros [facility] December 30, 2022 5:11pm Note Date/Time December 30, 2022 4 :27pm [facility] Medical Records Department [address] [place] [address] Emergency Department Summary 12/30/22 MR#: [id number] Acct: [id number] Name: KARLIE VALLE Rep #:[id number] : 1940 82 From: Danyel Viveros MD PCP: Dr. Errol Shahid MD Status: REG ER Location: ED HPI History of Present Illness Chief Complaint: Abn Labs Narrative Narrative: 82-year-old female past medical history of CVA approximately 1 year ago with residual aphasia and minimal left-sided weakness, on Eliquis for atrial fibrillation as well, presents with low hemoglobin of 6.1. Family reports that she was seen in the care center by Dr. Edouard Grayson, he had reported that her hemoglobin was 11 in September, and the other day on laboratory work was low at 6.7. Eliquis was held, and on repeat hemoglobin checked today, and had lowered to 6.1. Her history and physical is mildly limited secondary to her expressive aphasia. She states that she has been having black stool but cannot say for howlong. Her daughter is at the bedside, but does not cooberate that the patient has been having black stool. She complains of generalized weakness and fatigue. No chest pain or shortness of breath. Daughter states that the patient has been "lightheaded and dizzy". [facility] Medical History (Updated 12/30/22 @ 17:04 by Danyel Viveros MD) Angiodysplasia of duodenum Angiodysplasia of stomach Arthritis Atherosclerosis of coronary artery of [place] heart without angina pectoris Atrial fibrillation Cardiology follow-up encounter Esophageal stenosis Essential hypertension GERD (gastroesophageal reflux disease) GIB (gastrointestinal bleeding) History of hiatal hernia Hyperlipidemia IBS (irritable bowel syndrome) Kidney stones LAE (left atrial enlargement) Migraine headache Non-smoker Osteoporosis Other chronic sinusitis Paroxysmal A-fib Polyp of nasal cavity Shingles Stroke/cerebrovascular accident Wears glasses Wears hearing aid Home Medications acetaminophen 500 mg tablet 1,000 mg (2 x 500 mg) PO Q8 PRN fever/pain 1-10 #0 tabs 02/20/22 [Rx Last Taken 12/23/22] apixaban 5 mg tablet (Eliquis) 5 mg PO BID Blood Thinner 02/20/22 [History Last Taken 12/29/22] atorvastatin 40 mg tablet 40 mg PO QHS Cholesterol 02/20/22 [History Last Taken 12/29/22] calcium carbonate 500 mg-vitamin D3 5 mcg (200 unit) tablet (Oyster Shell Calcium-Vitamin D3) 1 tab PO BREAKFAST Supplement 02/20/22 [History Last Taken 12/30/22] metoprolol tartrate 25 mg tablet 12.5 mg PO BID BP 02/20/22 [History Last Taken 12/30/22] mirtazapine 15 mg tablet 15 mg PO QHS Check with primary doctor 02/20/22 [History Last Taken 12/29/22] pantoprazole 40 mg tablet,delayed release 40 mg PO BID GERD 02/20/22 [History Last Taken 12/30/22] menthol 0.44 %-zinc oxide 20.6 % topical ointment (Calmoseptine) 1 applic topical BID #0 grams 03/09/22 [Rx Last Taken Unknown] pramipexole 0.125 mg tablet 0.125 mg PO QHS #0 tabs 03/09/22 [Rx Last Taken 12/29/22] escitalopram oxalate 10 mg tablet 10 mg PO DAILY 12/30/22 [History Last Taken 12/30/22] ferrous sulfate 325 mg (65 mg iron) tablet (Feosol) 325 mg PO DAILY 12/30/22 [History Last Taken 12/30/22] Allergy/AdvReac Type Severity Reaction Status Date / Time ranolazine [From Ranexa] AdvReac Severe low urine Verified 12/30/22 16:02 output, rash oseltamivir [From Tamiflu] AdvReac Unknown Verified 12/30/22 16:02 Family History Father CAD (coronary artery disease) CVA (cerebral vascular accident) Hypertension Mother Hypertension Brother Hypertension Sister Diabetes Other Heart disease Surgical History H/O sinus surgery History of cataract surgery History of left heart catheterization (04/16/17) History of tonsillectomy Social History (Updated 02/20/22 @ 19:[address] Hitesh Cortes MD) household members: none Smoking Status: Never smoker alcohol intake: never substance use type: does not use ROS ROS ED ROS Narrative Constitutional: No fever, no chills. Positive fatigue. Generalized weakness. HEENT: No sore throat. No neck pain. No loss of vision. No rhinorrhea. Cardiovascular: No chest pain. No palpitations. No pedal edema. Respiratory: No cough, no shortness of breath. Abdominal: No abdominal pain. No nausea. No vomiting. Questionable report of black stool. Genitourinary: No dysuria. No hematuria. Musculoskeletal: No myalgias. No arthralgias. Neurologic: No headaches. Reported lightheadedness and dizziness. Skin: No rash. No change in color. Psychiatric: No depression. No anxiety. EXAM Physical Exam Narrative Exam Narrative: Afebrile. Vital signs noted. HEENT: Normocephalic. Atraumatic. PERRL, EOMI. Neck soft and supple. No pointtenderness or step off. Cardiovascular: Regular rate and rhythm. No murmurs, rubs, or gallops appreciated. Respiratory: No tachypnea. Lungs clear to auscultation bilaterally. Gastrointestinal: Abdomen soft, nontender, with normoactive bowel sounds. No rebound or guarding. Neurological: Awake. Alert. Nonfocal, nonlateralizing. Positive expressive aphasia. Skin: No rash. Normal color. Mild pallor. Musculoskeletal: No pedal edema. Full range of motion extremities. Const Vital Signs: 12/30/22 16:00 12/30/22 16:28 12/30/22 16:33 Temperature 97.8 F Temperature Source Temporal Pulse Rate 82 82 Pulse Rate [Lying] Pulse Rate [Sitting (for 1 minute prior to obtaining)] Pulse Rate [Standing (for 1 minute prior to obtaining)] Respiratory Rate 14 19 H Respiratory Effort Short of Breath Respiratory Pattern Tachypnea Blood Pressure 172/69 H 161/75 H Blood Pressure [Lying] Blood Pressure [Sitting (for 1 minute prior to obtaining)] Blood Pressure [Standing (for 1 minute prior to obtaining)] Blood Pressure Mean 103 103 Blood Pressure Mean [Lying] Blood Pressure Mean [Sitting (for 1 minute prior to obtaining)] Blood Pressure Mean [Standing (for 1 minute prior to obtaining)] Pulse Ox 99 98 Oxygen Delivery Method Room Air Room Air 12/30/22 16:22 Temperature Temperature Source Pulse Rate Pulse Rate [Lying] 77 Pulse Rate [Sitting (for 1 minute prior to obtaining)] 79 Pulse Rate [Standing (for 1 minute prior to obtaining)] 82 Respiratory Rate Respiratory Effort Respiratory Pattern Blood Pressure Blood Pressure [Lying] 166/77 H Blood Pressure [Sitting (for 1 minute prior to obtaining)] 177/70 H Blood Pressure [Standing (for 1 minute prior to obtaining)] 175/73 H Blood Pressure Mean Blood Pressure Mean [Lying] 106 Blood Pressure Mean [Sitting (for 1 minute prior to obtaining)] 105 Blood Pressure Mean [Standing (for 1 minute prior to obtaining)] 107 Pulse Ox Oxygen Delivery Method MDM MDM MDM Narrative Medical decision making narrative: I reviewed the patient's prior ED visits and laboratory work. With her having areported hemoglobin of 6.1, I do feel repeat CBC should be obtained. She will be typed and crossmatched for 2 units. I do feel that she will require admission for probable GI bleeding and anemia requiring transfusion. Chaperonedrectal examination will be performed and fecal occult blood will be sent along with orthostatics. I will also check a CMP. EKG was obtained and interpreted by myself independently as normal sinus rhythm at 75 bpm without ectopy or acute ST changes. No STEMI. I reviewed her laboratory work and her hemoglobin has returned at 6.9 today, but still below 7. As she is symptomatic, I feel that she will require admission. CMP was reviewed which shows normal sodium of 141, potassium normal at 3.9, chloride slightly elevated at 110 which I think is nonspecific, normal anion gap of 7, although she has a BUN elevated at 22, it is chronically elevated, she has a normal creatinine of 0.95. I have low suspicion for upper GI bleeding as the history and physical does not support this and she has not had any hematemesis. However, in review of her previous upper endoscopy, she did have an angiodysplastic lesion. Additionally, there was no stool in the rectal vault onchaperoned examination, no gross bleeding. I will defer further stool studies and fecal occult blood to when she produces a bowel movement to check the color of the stool. Patient will be discussed with the hospitalist for admission for anemia requiring transfusion. I discussed the patient with Dr. Chasity Huffman. As her vital signs appear stable, she is not hypotensive or tachycardic, was felt that she is stable for admission to the medical surgical floor. Disposition is admit in stable condition. History & Record Review Discussion w/independent historian: Patient and Family Additional record(s) reviewed:: Prior ED visit and Prior labs Lab Data Attestation: I reviewed the patient's lab results. Labs: Laboratory Results - last 24 hr 12/30/22 16:17 WBC 11.7 H RBC 3.02 L Hgb 6.9 L Hct 24.7 L MCV 81.8 MCH 22.8 L MCHC 27.9 L RDW Std Deviation 47.8 H RDW Coeff of Leif 15.9 H Plt Count 446 MPV 10.0 Immature Gran % (Auto) 0.300 Neut % (Auto) 55.8 Lymph % (Auto) 30.3 Latimer % (Auto) 9.5 Eos % (Auto) 3.4 Baso % (Auto) 0.7 Absolute Neuts (auto) 6.5 Absolute Lymphs (auto) 3.56 Nucleated RBC % 0 Sodium 141 Potassium 3.9 Chloride 110 H Carbon Dioxide 24.0 Anion Gap 7 BUN 22 H Creatinine 0.95 Estim Creat Clear Calc 33.93 Est GFR (MDRD) Af Amer 72 Est GFR (MDRD) Non-Af 60 BUN/Creatinine Ratio 23.1 H Glucose 128 H Calcium 9.2 Total Bilirubin 0.30 AST 18 ALT 30 Alkaline Phosphatase 109 Total Protein 7.7 Albumin 3.5 Globulin 4.2 Albumin/Globulin Ratio 0.8 L Crossmatch See Detail Management Discussion w/another healthcare provider: Hospitalist (Dr. Chasity Huffman) Discharge Plan Dx/Rx/DC Orders Clinical Impression: Anemia requiring transfusions, Fatigue, History of aphasia Disposition Disposition: Acute Care Hospital [facility] What to do if you have Problems For any increased pain, shortness of breath, bleeding, nausea or vomiting, chestpain, or any unexpected problems, contact your Primary Care Provider. Call [facility] ([phone]) or report to the closest Emergency Room. Call 911 if necessary. 12/30/22 1711 <Electronically signed by Danyel Viveros MD> Cosigner Signature (if applicable): CC: Dr. Errol Shahid MD ~ Signed [facility] Work Phone: 1(141) 123-826011-19-2022 Miscellaneous Notes* Nursing Notes - Marianna Huffman RN - 01/28/2022 1:12 PM EST Transport postponed to between 16-1700 today. Family updated. * Nursing Notes - Marianna Huffman RN - 01/28/2022 9:56 AM EST [facility], DONNA and discharge summary faxed to number Confirmed by nurse. Patient leaving at 1100 today per EMS transport. Family present at bedside. 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 Carlin 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 Outcome: Progressing Toward Goal Problem: OT - Cognition Goal: Cognition - Command following Description: Pt will follow 100 % of 1 step commands during ADL task for improved safety and success at discharge destination. Outcome: Progressing Toward Goal Problem: OT - Balance Goal: Balance - Seated Description: Pt will perform 10 minutes of ADL routine in sitting with supervision and balance level of supervision to promote safety during self-care activities. Outcome: Progressing Toward Goal Problem: OT - Strength/ROM Goal: Neuro Re-education Description: Pt will participate in neuro re-ed of (RUE/LUE) to improve strength by 1 muscle grade in each group, for improved use in ADLs. Outcome: Progressing Toward Goal * Plan of Care - Ottoniel Benjamin PT - 01/26/2022 4:00 PM EST Problem: PT - Mobility Goal: Ambulation Description: Pt will ambulate 50 feet with wheeled walker with minimal assistance to improve ability to navigate home environment. Outcome: Progressing Toward Goal Problem: PT - Transfers Goal: Supine <-> Sit Description: Pt will perform bed mobility with flat bed & no rail with contact guard assistancein order to improve functional mobility and safety. Outcome: Progressing Toward Goal Goal: Sit <-> Stand Description: Pt will perform sit to/from stand transfers with contact guard assistance with wheeledwalker in order to improve functional mobility and safety. Outcome: Progressing Toward Goal Goal: Strength/ROM Description: Pt will perform 3 sets of 10 repetitions of lower bilateral extremity exercises with independence in order to improve strength, maintain ROM, necessary for functional mobility. Outcome: Progressing Toward Goal Goal: Stand-Pivot Description: Pt will perform stand/pivot transfer to/from bed/chair/commode with contact guard assistance with least restrictive device in order to improve functional mobility and safety. Outcome: Progressing Toward Goal * Plan of Care - Rashad Butler RN - 01/26/2022 9:39 AM EST Problem: Patient Care Overview Goal: Plan of Care Review Outcome: Ongoing Goal: Individualization & Mutuality Outcome: Ongoing Goal: Discharge Needs Assessment Outcome: Ongoing Goal: Interdisciplinary Rounds/Family Conf Outcome: Ongoing Problem: Dysphagia (Adult) Goal: Identify Related Risk Factors and Signs and Symptoms Description: Related risk factors and signs and symptoms are identified upon initiation of Human Response Clinical Practice Guideline (CPG) Outcome: Ongoing Goal: Functional/Safe Swallow Description: Patient will demonstrate the desired outcomes by discharge/transition of care. Outcome: Ongoing Goal: Compensatory Techniques to Improve Safety/Function with Swallowing Description: Patient will demonstrate the desired outcomes by discharge/transition of care. Outcome: Ongoing Problem: Stroke (Ischemic) (Adult) Goal: Signs and Symptoms of Listed Potential Problems Will be Absent, Minimized or Managed (Stroke) Description: Signs and symptoms of listed potential problems will be absent, minimized or managed by discharge/transition of care (reference Stroke (Ischemic) (Adult) CPG). Outcome: Ongoing Goal: Signs and Symptoms of Listed Potential Problems Will be Absent, Minimized or Managed (Stroke) Description: Signs and symptoms of listed potential problems will be absent, minimized or managed by discharge/transition of care (reference Stroke (Ischemic) (Adult) CPG). Outcome: Ongoing Problem: Nutrition, Imbalanced: Inadequate Oral Intake (Adult) Goal: Identify Related Risk Factors and Signs and Symptoms Description: Related risk factors and signs and symptoms are identified upon initiation of Human Response Clinical Practice Guideline (CPG) Outcome: Ongoing Goal: Improved Oral Intake Description: Patient will demonstrate the desired outcomes by discharge/transition of care. Outcome: Ongoing * Plan of Care - Kell Almonte OT - 01/26/2022 8:09 AM EST Problem: OT - Dressing Goal: Upper Body Dressing Description: Pt will complete UE dressing task Edge of bed with modified independence for improved ability to complete self-care activities. Outcome: Progressing Toward Goal Problem: OT - ADLs Goal: Grooming Description: Pt will complete grooming in standing with contact guard assistance for improved ability to safely complete ADLs. Outcome: Progressing Toward Goal Problem: OT - Cognition Goal: Cognition - Command following Description: Pt will follow 100 % of 1 step commands during ADL task for improved safety and success at discharge destination. Outcome: Progressing Toward Goal Problem: OT - Balance Goal: Balance - Seated Description: Pt will perform 10 minutes of ADL routine in sitting with supervision and balance level of supervision to promote safety during self-care activities. Outcome: Progressing Toward Goal Problem: OT - Strength/ROM Goal: Neuro Re-education Description: Pt will participate in neuro re-ed of (RUE/LUE) to improve strength by 1 muscle grade in each group, for improved use in ADLs. Outcome: Progressing Toward Goal * Plan of Care - Kareem Hamm RN - 01/26/2022 2:28 AM EST Problem: Stroke (Ischemic) (Adult) Goal: Signs and Symptoms of Listed Potential Problems Will be Absent, Minimized or Managed (Stroke) Description: Signs and symptoms of listed potential problems will be absent, minimized or managed by discharge/transition of care (reference Stroke (Ischemic) (Adult) CPG). Outcome: Ongoing Problem: Stroke (Ischemic) (Adult) Goal: Signs and Symptoms of Listed Potential Problems Will be Absent, Minimized or Managed (Stroke) Description: Signs and symptoms of listed potential problems will be absent, minimized or managed by discharge/transition of care (reference Stroke (Ischemic) (Adult) CPG). Outcome: Ongoing * Plan of Care - Danielle Buckley PT - 01/25/2022 10:37 AM EST Problem: PT - Transfers Goal: Supine <-> Sit Description: Pt will perform bed mobility with flat bed & no rail with contact guard assistancein order to improve functional mobility and safety. Outcome: Progressing Toward Goal Goal: Sit <-> Stand Description: Pt will perform sit to/from stand transfers with contact guard assistance with wheeledwalker in order to improve functional mobility and safety. Outcome: Progressing Toward Goal Goal: Strength/ROM Description: Pt will perform 3 sets of 10 repetitions of lower bilateral extremity exercises with independence in order to improve strength, maintain ROM, necessary for functional mobility. Outcome: Progressing Toward Goal Goal: Stand-Pivot Description: Pt will perform stand/pivot transfer to/from bed/chair/commode with contact guard assistance with least restrictive device in order to improve functional mobility and safety. Outcome: Progressing Toward Goal * Plan of Care - Tim Grimm MD - 01/25/2022 10:05 AM ESTSummary: Sign Off General Cardiology Consult SIGN OFF Followed up ECHO, normal systolic function without evidence of wall motion abnormalities. She remains without signs/symptoms of heart failure or angina. Suspect her elevated troponin is secondary to demand ischemia in setting of stroke, Afib RVR with underlying coronary artery disease. Would recommend systemic anticoagulation when deemed safe from neurovascular standpoint. Can continue daily aspirin 81mg daily until this can be initiated, at which point the aspirin can be discontinued. Continue beta blockade as rate control strategy for her Afib. Thank you for allowing us to participate in the care of Karlie Valle. Our consult team will sign off today, 01/25/22. For our full impression and recommendations, please see our most recent consult /progress note. 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 Medication Changes No changes were made to patient's cardiovascular medications. If you have any further questions regarding the care of this patient, please do not hesitate to reach out to our team. Tim Grimm MD Cardiovascular Medicine Fellow, PGY4 [facility] * Plan of Care - Kareem Hamm RN - 01/24/2022 10:33 PM EST Problem: Patient Care Overview Goal: Individualization & Mutuality Outcome: Ongoing Problem: Dysphagia (Adult) Goal: Identify Related Risk Factors and Signs and Symptoms Description: Related risk factors and signs and symptoms are identified upon initiation of Human Response Clinical Practice Guideline (CPG) Outcome: Ongoing Problem: Dysphagia (Adult) Goal: Functional/Safe Swallow Description: Patient will demonstrate the desired outcomes by discharge/transition of care. Outcome: Ongoing Problem: Dysphagia (Adult) Goal: Compensatory Techniques to Improve Safety/Function with Swallowing Description: Patient will demonstrate the desired outcomes by discharge/transition of care. Outcome: Ongoing * Plan of Care - Danielle Buckley PT - 01/24/2022 1:39 PM EST Problem: PT - Transfers Goal: Supine <-> Sit Description: Pt will perform bed mobility with flat bed & no rail with contact guard assistancein order to improve functional mobility and safety. Outcome: Progressing Toward Goal Goal: Sit <-> Stand Description: Pt will perform sit to/from stand transfers with contact guard assistance with wheeledwalker in order to improve functional mobility and safety. Outcome: Progressing Toward Goal Problem: PT - Mobility Goal: Ambulation Description: Pt will ambulate 50 feet with wheeled walker with minimal assistance to improve ability to navigate home environment. Outcome: Ongoing * Plan of Care - Debo Story RN - 01/24/2022 12:48 PM EST Problem: Patient Care Overview Goal: Plan of Care Review Outcome: Ongoing Problem: Dysphagia (Adult) Goal: Compensatory Techniques to Improve Safety/Function with Swallowing Description: Patient will demonstrate the desired outcomes by discharge/transition of care. Outcome: Ongoing Problem: Nutrition, Imbalanced: Inadequate Oral Intake (Adult) Goal: Improved Oral Intake Description: Patient will demonstrate the desired outcomes by discharge/transition of care. Outcome: Ongoing Problem: Patient Care Overview Goal: Individualization & Mutuality Outcome: Progressing Toward Goal Goal: Discharge Needs Assessment Outcome: Progressing Toward Goal Problem: Stroke (Ischemic) (Adult) Goal: Signs and Symptoms of Listed Potential Problems Will be Absent, Minimized or Managed (Stroke) Description: Signs and symptoms of listed potential problems will be absent, minimized or managed by discharge/transition of care (reference Stroke (Ischemic) (Adult) CPG). Outcome: Progressing Toward Goal * Plan of Care - Nette Du OT - 01/24/2022 10:01 AM EST Problem: OT - ADLs Goal: Grooming Description: Pt will complete grooming in standing with contact guard assistance for improved ability to safely complete ADLs. Outcome: Progressing Toward Goal Problem: OT - Cognition Goal: Cognition - Command following Description: Pt will follow 100 % of 1 step commands during ADL task for improved safety and success at discharge destination. Outcome: Progressing Toward Goal Problem: OT - Balance Goal: Balance - Seated Description: Pt will perform 10 minutes of ADL routine in sitting with supervision and balance level of supervision to promote safety during self-care activities. Outcome: Progressing Toward Goal Problem: OT - Strength/ROM Goal: Neuro Re-education Description: Pt will participate in neuro re-ed of (RUE/LUE) to improve strength by 1 muscle grade in each group, for improved use in ADLs. Outcome: Progressing Toward Goal * Plan of Care - Terri Oliva RN - 01/24/2022 1:28 AM EST Problem: Patient Care Overview Goal: Discharge Needs Assessment Outcome: Ongoing Goal: Interdisciplinary Rounds/Family Conf Outcome: Ongoing Problem: Patient Care Overview Goal: Plan of Care Review Outcome: Progressing Toward Goal Goal: Individualization & Mutuality Outcome: Progressing Toward Goal Problem: Stroke (Ischemic) (Adult) Goal: Signs and Symptoms of Listed Potential Problems Will be Absent, Minimized or Managed (Stroke) Description: Signs and symptoms of listed potential problems will be absent, minimized or managed by discharge/transition of care (reference Stroke (Ischemic) (Adult) CPG). Outcome: Progressing Toward Goal Goal: Signs and Symptoms of Listed Potential Problems Will be Absent, Minimized or Managed (Stroke) Description: Signs and symptoms of listed potential problems will be absent, minimized or managed by discharge/transition of care (reference Stroke (Ischemic) (Adult) CPG). Outcome: Progressing Toward Goal * Plan of Care - Sussy Manning MD - 01/23/2022 11:31 PM EST [place] plan of care: Messaged by RN regarding vital sign derangements. Patient noted to have T elevated to 101.8 and 101.1 on recheck, RR between 22- 26, bp 172/72, HR 80.O2 sat 99-100% r.a. Patient reportedly intermittently difficult to rouse. Evaluated patient at bedside; patient sleeping soundly, no increased WOB, lungs CTAB in anterior and lateral atkinson. No pitting edema, lower extremities warm bilaterally. Patient has PIVs in place and no Razo catheter. Patient given tylenol and T improved to 99.8. WBC 12-->9 past 24h, BCx from 01/22 NGTD, UA 01/22 trace leukesterase with 0-5 WBC and no bacteria. CXR 01/22 no clear pulmonary infiltrates or consolidation. I/O noting patient is net positive 2.2L since admit. TTE pending, no recent prior study in system. Impression / plan: patient meets SIRS criteria. Will repeat infectious workup and hold on empiric abx coverage for now given no suspected source of infection. Additionally will decrease IVF rate in case patient is becoming volume overloaded. - repeat BCx, UA; will repeat CXR if pt develops O2 requirement - decrease mIVF from 75 cc/hr to 25 cc/hr - sent diff from CBC - BNP - f/u TTE results for cardiac function Sussy Manning MD Neurology, PGY-3 Pager #[phone] * Nursing Notes - Mireille Sánchez RN - 01/23/2022 6:18 PM EST Images from the original note were not included. Patient had moderate amount bright red blood from rectum after bowel movement this evening. Large hemorrhoids present upon assessment. Dr. Arguello notified. Evening lovenox dose held and H&H ordered per Dr. Arguello. * Plan of Care - Alla Branham PT - 01/23/2022 1:48 PM EST Problem: PT - Mobility Goal: Ambulation Description: Pt will ambulate 50 feet with wheeled walker with minimal assistance to improve ability to navigate home environment. Outcome: Ongoing Problem: PT - Transfers Goal: Supine <-> Sit Description: Pt will perform bed mobility with flat bed & no rail with contact guard assistancein order to improve functional mobility and safety. Outcome: Ongoing Goal: Sit <-> Stand Description: Pt will perform sit to/from stand transfers with contact guard assistance with wheeledwalker in order to improve functional mobility and safety. Outcome: Ongoing Goal: Strength/ROM Description: Pt will perform 3 sets of 10 repetitions of lower bilateral extremity exercises with independence in order to improve strength, maintain ROM, necessary for functional mobility. Outcome: Ongoing * Nursing Notes - Sidney Mckeon RN - 01/22/2022 8:01 PM EST 2000: Several pauses noted today on telemetry review post 12.5 mg and 25 mg of oral Lopressor administration -- tele strips uploaded to patient's chart. Current HR 105 (atrial fibrillation). Lopressor 50 mg ordered Q12 today. NVS aware -- will await their decision making before providing current Lopressor dosing. 2146: Report provided to VASYL Velazquez -- all questions answered to her satisfaction. Primary care RN responsibilities relinquished at this time. 2245: I am resuming primary care RN responsibilities at this time. * Plan of Care - ASHLYN Tilley - 01/22/2022 10:52 AM EST Nutrition Plan of Care: 1. Continue current diet order. 2. Will provide strawberry/butter pecan Ensure Plus High Protein (350 kcal, 20 g PRO each) TID withall meals to increase kcal/protein intake and promote healing. 3. Monitor for significant weight changes. 4. Monitor and encourage po intakes with goal of average po being 50%. 5. registered vascular technologist (rvt) to follow. * Nursing Notes - Sidney Mckeon RN - 01/21/2022 9:05 PM EST 2105: Patient in atrial fibrillation with RVR -- rate between 120 and 150. Patient asymptomatic. Vitals stable. Will discuss need for a bolus and starting MIV fluids -- patient with poor intake throughout the day and urine is chavo in color. Patient not on rate control medications. Family updated at bedside on plan of care. 2215: 12 lead transmitted and physicians aware of EKG rhythm (atrial flutter with variable AV block). Available for read. Post bolus, patient resting with HR of 137-145. Vitals stable. Exam unchanged. Will discuss need for rate control medication. 2300: Post 5 mg of IV Lopressor patient HR RC a-fib (HR 85-95). 0000: Conversion to NSR. * Plan of Care - Leeann Vernon RN - 01/20/2022 5:34 PM EST Problem: Patient Care Overview Goal: Plan of Care Review Outcome: Met This Shift Flowsheets (Taken 01/20/2022 172) Plan Of Care Reviewed With: daughter son Progress: progress toward functional goals is gradual Problem: Dysphagia (Adult) Goal: Functional/Safe Swallow Description: Patient will demonstrate the desired outcomes by discharge/transition of care. Outcome: Progressing Toward Goal Intervention: Monitor/Manage Eating/Swallowing Impairment Flowsheets (Taken 01/20/2022 172) Aspiration Precautions: awake/alert before oral intake food consistency adjusted feeding supervision/assistance provided food texture adjusted liquids/solids alternated respiratory status monitored small bites/sips encouraged upright posture maintained Swallowing Techniques: Dysphagia: appropriate positioning encouraged bites and sips alternated double swallow encouraged Problem: Stroke (Ischemic) (Adult) Goal: Signs and Symptoms of Listed Potential Problems Will be Absent, Minimized or Managed (Stroke) Description: Signs and symptoms of listed potential problems will be absent, minimized or managed by discharge/transition of care (reference Stroke (Ischemic) (Adult) CPG). Flowsheets (Taken 01/20/20221728) Problems Assessed (Stroke (Ischemic)/TIA): all Problems Present (Stroke (Ischemic)/TIA): cognitive impairment communication impairment eating/swallowing impairment motor/sensory impairment situational response Goal: Signs and Symptoms of Listed Potential Problems Will be Absent, Minimized or Managed (Stroke) Description: Signs and symptoms of listed potential problems will be absent, minimized or managed by discharge/transition of care (reference Stroke (Ischemic) (Adult) CPG). Flowsheets (Taken 01/20/2022 172) Problems Assessed (Stroke (Ischemic)/TIA): all Problems Present (Stroke (Ischemic)/TIA): cognitive impairment communication impairment eating/swallowing impairment motor/sensory impairment situational response Intervention: Monitor/Assist with Self Care Flowsheets (Taken 01/20/20221728) Communication: 2 - difficulty speaking (not related to language barrier) Bathin - assistive equipment and person Eatin - completely dependent Dressin - completely dependent Swallowin - difficulty swallowing liquids/foods Ambulation: 3 - assistive equipment and person Toiletin - assistive equipment and person Transferrin - assistive equipment and person * Plan of Care - Aura Tavarez PT - 01/20/2022 12:43 PM EST Problem: PT - Mobility Goal: Ambulation Description: Pt will ambulate 50 feet with wheeled walker with minimal assistance to improve ability to navigate home environment. Outcome: Ongoing Problem: PT - Transfers Goal: Supine <-> Sit Description: Pt will perform bed mobility with flat bed & no rail with contact guard assistancein order to improve functional mobility and safety. Outcome: Ongoing Goal: Sit <-> Stand Description: Pt will perform sit to/from stand transfers with contact guard assistance with wheeledwalker in order to improve functional mobility and safety. Outcome: Ongoing Goal: Strength/ROM Description: Pt will perform 3 sets of 10 repetitions of lower bilateral extremity exercises with independence in order to improve strength, maintain ROM, necessary for functional mobility. Outcome: Ongoing * Research Note - KIM Campbell - 01/20/2022 10:59 AM EST CAM-ICU feature Instructions Range Result 24-hour RASS range Record the lowest RASS over the last 24 hours -5 to +4 -1 Record the highest RASS over the last 24 hours -5 to +4 0 #1: Acute change from baseline or fluctuating course of mental status Is the RASS different than baseline OR Fluctuating over the past 24 hours, based on RASS? Yes/No yes #2: Inattention Squeeze hand for letter A, record # of errors out of 10 SAVEAHAART, CASABLANCA, or ABADABADAY 0 to 10 3 #3: Altered LOC Record the current RASS -5 to +4 0 #4a: Disorganized thinking (questions) In response to the four questions, record the number of errors 1. Will a stone float on water? 2. Are there fish in the sea? 3. Does one pound weight more than two? 4. Can you use a hammer to pound a nail? 0 to 4 4 #4b: Disorganized thinking (commands) 2-step command, record the number errors Hold up this many fingers (hold up 2) Add one more finger (don't demonstrate) 0 to 1 1 Receptive aphasia Does pt. have receptive aphasia that impairs their ability to perform the above? Yes/No No * Plan of Care - Gina Fam SUPERVISOR RECEIVING AND PROCESSING - 01/20/2022 10:58 AM EST Problem: SUPERVISOR RECEIVING AND PROCESSING - Language Goal: Command Following Description: Patient will complete simple 1-2 step commands (minimum of x10) to 80% success with max cues as needed in order to improve direction following for functional gains in ability to participate more independently in care. Outcome: Ongoing Goal: Yes/No Response Description: Patient will answer basic/ personal/ environmental y/n questions (minimum of x10) related to current situation/environment, to 100% success with min cues, after 2-3 sessions in order to improve ability to answer medical questions/questions related to care. Outcome: Ongoing Goal: Names Basic Objects/Pictures Description: Patient will name basic objects/pictures with 80% accuracy, across 1-2 session(s) given min assist to improve word-finding and functional communication. Outcome: Ongoing Goal: Phrase/Sentence Completion Description: Patient will complete functional sentences/phrases related to wants/needs in this setting, to 100% success with max cues, across 2-3 sessions in order to improve ability to communicate functionally in current environment. Outcome: Ongoing * Plan of Care - KATHLEEN Dominguez - 01/20/2022 10:58 AM EST Problem: SUPERVISOR RECEIVING AND PROCESSING - Dysphagia Goal: PO Trial 2 Description: Patient will accept trials of current diet consisting of minced and moist solids/ thinliquids with no signs/symptoms of laryngeal penetration/aspiration and no respiratory complicationsto determine ongoing safety with current diet vs need for instrumental swallow assessment, over the course of 1 session. Outcome: Ongoing Goal: PO Trial 3 Description: Patient will swallow trials of advanced solids x5-10 demonstrating timely/effective mastication, bolus formation and oral bolus transit without overt clinical signs/symptoms of aspiration, across 1-2 sessions to determine readiness for diet advancement. Outcome: Ongoing * Plan of Care - Jeffrey Fung MD - 01/20/2022 10:56 AM EST NSG Update Note Consulted for stroke. Thrombectomy completed. No further neurosurgical intervention indicated. We will sign off. Further car per nccu/stroke team. Page [phone] with questions Jeffrey Fung MD NSG PGY 6 * Plan of Care - uAra Flores OT - 01/20/2022 10:15 AM EST Problem: OT - ADLs Goal: Grooming Description: Pt will complete grooming in standing with contact guard assistance for improved ability to safely complete ADLs. Outcome: Ongoing Problem: OT - Cognition Goal: Cognition - Command following Description: Pt will follow 100 % of 1 step commands during ADL task for improved safety and success at discharge destination. Outcome: Ongoing Problem: OT - Balance Goal: Balance - Seated Description: Pt will perform 10 minutes of ADL routine in sitting with supervision and balance level of supervision to promote safety during self-care activities. Outcome: Ongoing Problem: OT - Strength/ROM Goal: Neuro Re-education Description: Pt will participate in neuro re-ed of (RUE/LUE) to improve strength by 1 muscle grade in each group, for improved use in ADLs. Outcome: Ongoing * Op Note - Kade Lantigua MD - 01/19/2022 7:38 PM EST DATE OF PROCEDURE: 01/19/2022 PREOPERATIVE DIAGNOSIS: Acute ischemic stroke POSTOPERATIVE DIAGNOSIS: Acute ischemic stroke PROCEDURE PERFORMED: Mechanical Thrombectomy CLINICAL INDICATION: Karlie Valle is a 81 y.o. female who presented with an acute ischemic stroke and was found to have a right MCA occlusion. LKW 1700 on 01/18. NIHSS 11. No tPA given. SURGEON: Gary Garcia MD DIRECTOR CARDIOVASCULAR: Kade Lantigua MD ANESTHESIA: MAC CONTRAST: 100 cc PROCEDURE IN DETAIL: Prior to the procedure, the technical aspects of the procedure, as well as potential risks and benefits, were explained to the patient. Specifically, the risks of cerebral infarction, hemorrhage, blindness, cranial nerve palsy, facial pain, anaphylaxis, worsening of his preexisting renal failure, limb loss, , groin hematoma, arterial dissection, arterial pseudoaneurysm, and development of arteriovenous fistula were discussed. After informed written consent was obtained, the patient was brought to the angiography suite and positioned supine with pressure points padded appropriately. The right groin was prepped and draped in the usual fashion. Access to the right femoral artery was gained in the usual way with a micropunct ure kit. An 8 Latvian sheath was introduced into the right femoral artery. An angiogram of the rightfemoral artery was then performed to ensure adequate sheath placement. We then advanced the TracStar 088 coaxially with the Veliz-2 select catheter over the wire and into the arch, then shaped it in the descending aorta. The catheter was then advanced in the right common carotid artery were we obtained cervical angiography of the carotid artery. Under roadmap guidance we advanced the catheter over the wire into the right internal carotid artery. Cerebral angiography was obtained that showed aright proximal M1 occlusion. The Zoom 71 Aspiration catheter was then brought up through the TracStar 088 over the microcatheter and microwire. The microcatheter and microwire were brought past the lesion. Next the Zoom aspiration catheter was brought up to abut the clot. Microcatheter and microwire were removed and the Zoom aspiration catheter was hooked up to vacuum suction. We allowed suction for 3 minutes and slowly withdrew the aspiration catheter. Good back bleeding was seen. A follow up cerebral angiography was obtained that demonstrate reperfusion. The stroke catheters were then removed. The catheter was withdrawn into the arch and then advanced into the left common carotid artery where we obtained cervical and cerebral angiography. The catheter was brought down into the arch and we selected the left vertebral artery. Cerebral angiography from the left vertebral artery was performed. At the conclusion of the procedure the diagnostic catheter was removed. A Mynx closure device was used to achieve hemostasis. Sterile dressing and a tegaderm were then applied over the puncture site. The patient tolerated the procedure well without apparent complications and transferred to PACU in stable condition. FINDINGS: RIGHT COMMON CAROTID ARTERY, CERVICAL: Antegrade flow is seen through the common carotid artery andinto the internal and external carotid arteries. The carotid bulb is smooth without evidence of flow limiting stenosis. There is normal opacification of right ECA branches. RIGHT INTERNAL CAROTID ARTERY, CEREBRAL: Antegrade flow seen through internal carotid artery and into the anterior cerebral artery. There is a proximal right M1 occlusion. Post thrombectomy shows confucianist of flow to the right MCA territory with TICI 3 reperfusion. Normal cerebral perfusion through capillary and venous phases. LEFT COMMON CAROTID ARTERY, CERVICAL: Antegrade flow is seen through the common carotid artery and into the internal and external carotid arteries. The carotid bulb is smooth without evidence of flowlimiting stenosis. There is normal opacification of left ECA branches. LEFT COMMON CAROTID ARTERY, CEREBRAL: Antegrade flow seen through internal carotid artery and into the anterior and middle cerebral arteries. Normal cerebral perfusion through capillary and venous phases. No evidence of aneurysm, arteriovenous shunting, or focal stenosis LEFT VERTEBRAL ARTERY, CEREBRAL: Antegrade flow is seen through the left vertebral artery with antegrade flow through the vertebrobasilar system with normal cerebral perfusion through the capillary and venous phases. There is no evidence of aneurysm, focal stenosis, or early draining vein. RIGHT COMMON FEMORAL ARTERY: No abnormalities are detected. This artery is appropriate for use of the mynx closure device. COMPLICATIONS: None immediate. TIMES: In Room: 1846 Groin Puncture: 1851 Cross Lesion: 1905 Revascularization: 1910 TICI Score: 3 IMPRESSION: 1. Right M1 occlusion with successful mechanical thrombectomy and TICI [address] Garcia was present for and participated in the entire procedure Associated attestation - Gary Garcia MD - 01/26/2022 11:18 AM EST Agree with above as written. I was present for the entire procedure. 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 [I63.00] PROCEDURE PERFORMED Procedure(s) (LRB): THROMBECTOMY NONCORONARY ARTERY MECHANICAL PERCUTANEOUS 1ST VESSEL (N/A) PLACEMENT CATH SELECTIVE INTERNAL CAROTID ARTERY W/ ANGIO IPSILAT INTRACRANIAL CAROTID W/ RAD S&I (N/A) PRIMARY CLOSURE N/A INTRAOPERATIVE FINDINGS see full op note for details SURGEON Surgeon(s) and Role: * Gary Garcia MD - Primary * Kade Lantigua MD - Fellow ANESTHESIOLOGIST Anesthesiologist: Luann Pandya MD, PhD OB TECH: Jonas Riley APRN-OB TECH SURGICAL STAFF Manager Winter: Troy Skaggs RN; Юлия Del Toro RN; Denise Fuentes, VASYL Resident Assisting: Flaco Simpson MD COMPLICATIONS None ESTIMATED BLOOD LOSS Minimal SPECIMENS No specimen sent * No specimens in log * Kade Lantigua MD January 19, 2022 7:37 PM [facility] History of Present illness Narrative* OMAR Randolph - 01/28/2022 9:28 AM EST Social Work Final Discharge Plan and Transportation Final Discharge Planning Discharge Disposition: Inpatient Rehab Facility Services at Discharge: Physical Therapy, Occupational Therapy Community Agency Name(s) For Handoff: Aleks[facility] Phone For Handoff: Fax For Handoff: Selected Continued Care - Admitted Since 01/19/2022 Destination Coordination complete. Service Provider Selected Services Address Phone Fax Patient Preferred [facility] [address] [place] [id number] -- -- Plan Plan: DC to [facility] Patient/Family In Agreement With Plan: yes Countersinker Balance Screw Hole Called: Yes Name of Transport Company: ([facility]ly [facility] [phone]) ETA of Ambulance: 11am Transfer Mode: gurney Mode of Transfer: ambulance, BLS Accompanied By: EMS Patient medically stable for discharge per physician/medical team. SW confirmed with IRF that they are able to accept the patient this date. SW arranged transport as indicated above, ETA is 11 AM. AVS/DONNA completed from a SW standpoint. SW updated the bedside RN, CCM, facility and patient/credit representative of the discharge plan and transport time. Patient/Fine Chemicals Operator remain in agreement with the discharge plan. Bedside RN to call report and fax AVS/DONNA. Ambulance form left at the patrol community service officer desk with a request for a printed transfer report. Discharge Instruction for Bedside RN: 1. Confirm the Ambulatory Order is in the DONNA. 2. Print the DONNA and AVS. 3. Print the Discharge Summary for facilities (if available). 4. Fax DONNA, AVS and Discharge Summary (when applicable) to agency or facility. 5. Call the agency or facility for report. JAKOB Alexandre, ASSISTANT PROFESSOR OF PHYSICS Chocolate Finisher Operator * Charlette Rondon MD - 01/28/2022 7:44 AM EST I have seen and examined the patient with the team today. I have personally reviewed all the imaging studies and laboratory data and also reviewed the note. I agree with the assessment and plan with the following additions : HCT: R BG CVA, ICH transformation Ct stable CTA: R M1 occusion MRI: R MCA stroke with ICH transformation, punctate R cerebellar CVA ECHO: EF okay, LA enlarged Lab Results Component Value Date LDLCALC 90 01/20/2022 Lab Results Component Value Date HGBA1C 5.6 01/20/2022 Neuro Exam: MS: AA OX3. Language Dysarthria CN: Left FD Motor: 5/5 on right and Left HP Assessment: Karlie Valle is a 81 y.o. female with a past history of HTN, HLD, A- fib not on AC (d/t recent GIB. Last AC use was Nov). 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 Mild hemorrhagic transformation. Likely cardioembolic in etiology Plan: ASA now AC in 1 month Continue statin HTN: Keep <160. DVT proph Risk factor modification and stroke education provided. Dc today Spent 40 min in DC management Charlette Rondon MD Rigger Apprentice Department of Neurology * OMAR Martinez - 01/27/2022 2:22 PM EST Progression of Care Note Expected Discharge Date: 01/28/2022 Medical Milestones Remaining: None Assessment and Discharge Plan as of 01/27/2022 2:22 PM IPR Patient Choice for Post-Acute Providers Anticipated discharge disposition: Inpatient Rehab Facility Anticipated Services at Discharge: Physical Therapy, Occupational Therapy, Longterm, Speech Therapy, Outpatient follow up Explanation of Barriers: Transportation arranged for Sunday at 11am to IPR Readmission Risk Score Risk of Readmission: 4.6 Category Reference: High:16-100 Mod-High:10-16 Mod-Low: 5-10 Low: 0-5 JAKOB Martinez LSW Treasury Representative * KIM Davidson - 01/27/2022 12:22 PM EST NEUROVASCULAR STROKE SERVICE Daily Progress Note IDENTIFYING INFORMATION Karlie Valle MR# [id number] 01/27/2022 HISTORY OF PRESENT ILLNESS Karlie Valle is a 81 y.o. female with a past history of HTN, HLD, A-fib not on AC (d/t recent GIB. Last AC use was Nov) Ms. Valle was transferred to [facility] after presenting to an OSH ([facility]) with dysarthria, left weakness and facial droop. Per. Ms. Valle's daughter, LKW 01/18. mRS 0. On 01/19, she was found to be very confused along with left weakness by her son-in-law. At the OSH, CTH revealed likely RMCA infarction, CTA RM1 occlusion. She was transferred to [facility], NIHSS 11. She was taken to the OR forthrombectomy and received TICI 3 revascularization. Of note, she had elevated troponin to 3300 at OSH, trending down to 3000 on arrival. INTERVAL HISTORY 01/20: Stroke workup pending, had TICI 3 revascularization overnight 01/21: CT head reviewed, holding aspirin/lovenox, repeat CTH tomorrow 01/22: Increased metoprolol per cardiology recs, repeat CTH from overnight reviewed, repeat CTH today due to increasing NIHSS, TTE pending, Febrile 102, chest xray reviewed, UA P, blood culture pending 01/23: metoprolol decreased due to bradycardia. Afebrile without signs of infection today. DVT ppx resumed, plan for CTH in AM, if stable will initiate ASA 01/24: Repeat CTH appears stable. Again fevered overnight, T max 101.8. Sent repeat Bcx, covid, fluswab. Repeat CXR negative, RR up as well. 01/25: WBC 11.5 & Tmax 99.6 overnight. CXR & labs negative. BCx pending. BLE venous duplex ordered. Lactate, amylase, lipase, LFTs pending. PRN duonebs changed to Q6h for wheezing. 01/26: Leukocytosis improved, afebrile overnight. RUQ U/S and BLE venous duplex negative. 01/27: DANIELLE overnight. Vitals stable. Patient set for discharge tomorrow at 11 am. PHYSICAL EXAM Gen: drowsy, NAD HEENT: normocephalic, no scalp lesions or tenderness Neck: trachea midline No JVD CV: +S1S2, RRR, no m/r/g Lungs: LCTA bilaterally with equal chest rise Abd: soft, nontender, nondistended, +BS x4 quadrants Extrem: Warm and well perfused, no edema, 2+ pulses bilaterally Neuro: Dysarthric, mild aphasia, follows simple commands. Oriented to self. CN II - All visual atkinson intact CN II/III - PERRLA CN III/IV/ -EOMI CN V - Light touch to face intact in V1-3 CN VII - left facial droop CN VIII - Hearing intact CN X - Cough present CN XI - muscular movement of shoulders and sternocleidomastoid muscles intact and equal bilaterally CN XII - midline protrusion of tongue MOTOR EXAMINATION: BLE weakness with drift NIHSS 01/27/2022 Provider NIH Stroke Scale NIH Interval (Provider): daily NIH Level of Conciousness (Provider): 0 NIH LOC Questions (Provider): 2 NIH LOC Commands (Provider): 0 NIH Best Gaze (Provider): 0 NIH Visual (Provider): 0 NIH Facial Palsy (Provider): 1 NIH Left Arm Motor (Provider): 1 NIH Right Arm Motor (Provider): 0 NIH Left Leg Motor (Provider): 2 NIH Right Leg Motor (Provider): 0 NIH Limb Ataxia (Provider): 0 NIH Sensory (Provider): 0 NIH Best Language (Provider): 1 NIH Dysarthria (Provider): 0 NIH Extinction and Inattention (Provider): 0 NIH Total Score (Provider): 7 ASSESSMENT AND PLAN Neuro: 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 s/p TICI 3 revascularization CTH: R basal gangia stroke CTA brain/neck: R M1 occlusion CTP: R MCA mismatch MRI brain R MCA stroke with hemorrhagic transformation, punctate R cerebellar stroke Repeat CTH: Evolution of R basal gagnlia stroke with hemorrhagic conversion Repeat CTH 01/24: stable TTE: EF 60-65%, severe LAE EKG on admission: NSR, QTC 466 LDL 90 HgbA1c 5.6 Stroke Etiology (TOAST criteria): cardioembolic,afib, not on AC due to recent GI bleed AC plan: initiate Eliquis 1 month post stroke (02/16) ASA 81 mg initiated on 01/24 Atorvastatin 40 mg daily Ischemic Stroke Core Measures -NIHSS on admission 11 -Patient has been started on Mechanical (SCD's) and Pharmacological (SQ heparin/Lovenox) DVT prophylaxis. -Antiplatelet therapy has been initiated, Aspirin 81 mg daily. -Anticoagulation therapy was indicated for this patient, d/t afib -Patients LDL 90 and HgbA1c 5.6 were checked and the patient will be discharged on Atorvastatin 40 mg daily. -Dysphagia screening ordered, and will be completed prior to patient receiving oral intake. -Stroke education booklet has been ordered and will be provided by the RN that includes both written and verbal education to the patient and family regarding ischemic strokes. We have reviewed the patient's personal modifiable risk factors including: HTN, HLD, afib as well as education on reducing these risk factors -Patient is being assessed for Rehab by PT/OT/Speech and PM&R if indicated. Dysphagia -Speech following -Minced and moist diet -Calorie counts-75% of meals 01/24 -PO intake improved, IV fluids stopped 01/25 CAD, Troponemia on admission -Down trending, peaked at 3,590 -ECG NSR with non-specific ST/T wave abnormalities -Per cardiology consult: -Rate control goal < 80 BPM -Obtain TTE, favor noninvasive/medical mgmt for CAD if pt remains stable. -anticoagulation if/when able from a medical/stroke perspective. -If AC contraindicated due to GI bleed in the past, would consider GARRICK occlusion procedure, outpatient referral to electrophysiology. Fever, Leukocytosis: mild fever 99.96 overnight, WBC 11.5 today -Sent repeat Bcx, covid, flu swab. Repeat CXR negative, urinalysis unremarkable x2 -Blood cultures NGTD 05/14 -BLE venous duplex negative -Lactate, amylase, lipase WNL -AST elevated- RUQ U/S negative Atrial fibrillation, (POA) -Not on anticoagulation due to prior reported GI bleed, however, after discussion with family. GI bleed reported was only dark stool for 24 hours without need for blood transfusion or changes in Hgb.Pt had been taking AC for only a few days when this occurred and was told to stop by ER phsycian. - Started metoprolol 12.5 mg BID on 01/22 and increased to 50 mg BID per cardiology. Bradycardia and sinus pause overnight on 01/22-01/23, decreased to 25 mg BID -Home regimen :metoprolol 25 mg BID -AC plan: initiate Eliquis 1 month post stroke on 02/16 and monitor closely HTN, (POA) -SBP goal < 140 mmHg -PRN labetalol/hydralazine -metoprolol on 01/22 as above HLD, (POA) -LDL 90 -discontinue home simvastatin 40 mg daily -Start atorvastatin 40 mg daily Disposition: Karlie Valle will likely be discharged to [facility] pending transportation. Yolie Blair APRN-INDUSTRIAL CONTROLS TECHNICIAN 01/27/2022 12:26 PM VITAL SIGNS Temp: [97.3 F (36.3 C)-99.9 F (37.7 C)] 97.3 F (36.3 C) Pulse (Heart Rate): [70-80] 74 Resp Rate: [18-20] 18 BP: (99-131)/(49-58) 131/57 O2 Sat (%): [95 %-98 %] 96 % Oxygen Therapy: Oxygen Therapy O2 Sat (%): 96 % O2 Device: room air Ventilator Settings and Monitoring (Adult/Peds) Total Respiratory Rate: 18 Intake/Output: Intake/Output Summary (Last 24 hours) at 01/27/2022 1226 Last data filed at 01/27/2022 1207 Gross per 24 hour Intake 0 ml Output 1150 ml Net -1150 ml LABS/CULTURES Lab Results Component Value Date WBC 10.79 01/27/2022 HGB 9.9 (L) 01/27/2022 HCT 30.4 (L) 01/27/2022 PLATELET 279 01/27/2022 MCV 93.3 01/27/2022 Lab Results Component Value Date SODIUM 138 01/27/2022 POTASSIUM 4.5 01/27/2022 CHLORIDE 104 01/27/2022 CO2 26 01/27/2022 BUN 33 (H) 01/27/2022 CREATSERUM 0.85 01/27/2022 GLUCOSE 101 (H) 01/27/2022 Lab Results Component Value Date CHOLESTEROL 171 01/20/2022 TRIG 134 01/20/2022 HDL 54 01/20/2022 LDLCALC 90 01/20/2022 Lab Results Component Value Date HGBA1C 5.6 01/20/2022 Lab Results Component Value Date ALBUMIN 3.1 (L) 01/25/2022 , No results found for: CPK, TROP IMAGING/DIAGNOSTIC STUDIES US ABDOMEN RUQ/LIVER/GB Final Result IMPRESSION: 1. Unremarkable sonographic appearance of the liver. 2. Cholelithiasis without evidence of acute cholecystitis. DUPLEX VENOUS EXTREMITY LOWER BILATERAL Final Result ECHOCARDIOGRAM Final Result XR CHEST PORTABLE Final Result IMPRESSION: No acute cardiopulmonary disease HEAD WITHOUT CONTRAST Final Result IMPRESSION: Stable examination as compared to 01/22/2022. HEAD WITHOUT CONTRAST Final Result IMPRESSION: Stable exam when compared to same day head CT. Stable appearance of hemorrhagic infarct in the right basal ganglia and nonhemorrhagic infarct in the right medial temporal lobe in the right cerebellum. Stable mass effect on the right lateral ventricle and 2 mm leftward midline shift. I personally viewed and interpreted these images and I have reviewed and approved this report. CHEST PORTABLE Final Result IMPRESSION: No definite acute process. HEAD WITHOUT CONTRAST Final Result IMPRESSION: Stable head CT when compared to the prior exam from January 20, 2022. Redemonstration of a hemorrhagic infarct in the right basal ganglia, nonhemorrhagic infarct in the right medial temporal lobe and the right cerebellum. Underlying mass effect on the right lateral ventricle with 2 mm midline shift to the left stable. HEAD WITHOUT CONTRAST Final Result IMPRESSION: Continued evolution of recent infarct involving the right basal ganglia and right medial temporal lobe, with worsening edema and mass effect and approximately 2 mm leftward midline shift. 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 There is also minimal acute subarachnoid hemorrhage along the right frontal sulci, new compared to prior. BRAIN WITHOUT CONTRAST Final Result IMPRESSION: Small acute infarct right cerebellum. Additional ovoid region of restricted diffusion in the medial right temporal lobe also concerning for additional region of acute infarction. Acute maturing infarct in the right caudate head and right lentiform nucleus with hemorrhagic transformation. There is associated regional mass effect with effacement of frontal horn of right lateral ventricle-progressed since previous CT from January 19, 2022. No significant leftward midline shift. PLAIN FILM FOR NEURO EXAM Final Result IMPRESSION: No radiopaque foreign body. CHEST PORTABLE Final Result IMPRESSION: Minimal left basilar volume loss; otherwise clear lungs. CEREBRAL PERFUSION ANALYSIS Final Result IMPRESSION: There is an area of core infarct in the right basal ganglia with adjacent penumbra as estimated above. I personally viewed and interpreted these images and I have reviewed and approved this report. STROKE HEAD-STROKE ALERT ONLY Final Result IMPRESSION: 1. Right basal ganglia hypodensity, likely consequence of acute ischemia. 2. Equivocal right thalamic lacunar infarct, age indeterminate. 3. Dense intracranial vessels, secondary to recent intravenous contrast administration. There is otherwise no convincing evidence of acute intracranial hemorrhage. No herniation or hydrocephalus. Findings were discussed with Yovany Manuel MD at 5:30 PM on January 19, 2022. I personally viewed and interpreted these images and I have reviewed and approved this report. RO IMAGING FOR NEURO ENDOVASCULAR (Results Pending) MEDICATIONS aspirin 81 mg Oral Daily Or aspirin 300 mg Rectal Daily atorvastatin 40 mg Oral QHS enoxaparin 30 mg Subcutaneous Daily early evening faMOTIdine 20 mg Oral Q12H ipratropium-albuterol 3 mL Nebulization Q6H metoprolol 25 mg Oral Q12H polyethylene glycol 17 g Oral Q12H Or polyethylene glycol 17 g Per NG tube Q12H senna 8.6 mg Oral QAM Or senna 8.6 mg Per NG tube QAM * Nette Du OT - 01/27/2022 10:41 AM EST Acute Occupational Therapy Treatment Prior to Admission AM-PAC Score: PRIOR LEVEL AM-PAC Mobility Raw Score: 24 Current AM-PAC score(s): CURRENT AM-PAC Activity Raw Score: 15 Based on the above AM-PAC score(s), and OT clinical judgment, discharge destination recommendation is: Inpatient Rehab Facility Supporting Factors (would benefit from skilled therapy services): Patient status is anticipated to be appropriate to tolerate inpatient rehab therapy requirements at time of discharge from acute care, Impaired self-care abilities, Impaired balance, Impaired cognitive status Mobility equipment available at home: none used ADL equipment available at home: none Equipment recommendations for discharge: to be determined Current therapy frequency recommendation(s) in acute: 5 times a week Precautions and Weightbearing Status: OT Existing Precautions/Restrictions: fall Telemetry Patient Safety Communication Prior to Visit: Nursing Subjective: Patient agreeable to session. Following toileting and hand/face washing at sink, pt requests rest versus oral care. Pain: General Pain Documentation (Adult, OB, Peds) Presence of Pain: complains of pain/discomfort Pain Location: leg, left, leg, right Objective/Observation: Vitals/Vitals Responses to Treatment: No adverse reaction to session. Respiratory Status O2 Device: room air Cognition Overall Cognitive Status: Impaired Arousal/Alertness: Delayed responses to stimuli Orientation Level: Oriented to person Following Commands: Follows one step commands with increased time, Follows one step commands with repetition Awareness of Errors: Assistance required to correct errors made Attention Span: Appears intact Cognition Comments: Increased processing time. Word finding/expressive difficulty noted throughout.Pt demonstrated improved time orientation answers when provided written options (see interventions below). ADL Assessment/Intervention: Grooming Assistance: Minimal Grooming Location: standing at sink Grooming Deficit: Increased time to complete, Activity tolerance, Generalized weakness, Balance, Attention, Problem solving Grooming Skilled Rationale (Verbal/Tactile/Visual/Demonstration): Facilitate positioning, Facilitate postural control, Cues for cognitive deficit, Technique of activity, Cues for increased safety, Setup, Proximal support to increase distal control for task Grooming Intervention/Details: Pt performed hand hygiene and facewashing at sink, promoting bimanual integration. Min-mod A for standing balance. Cues for positioning/posture. Setup provided, pt initiated facewashing with washcloth, cues for attention and turning off water. Toilet Assistance: Minimal Toileting Location: toilet Toileting Deficit: Increased time to complete, Activity tolerance, Generalized weakness, Balance, Grab bar use, Clothing management up, Sequencing, Follows safety/precautions Toilet Skilled Rationale (Verbal/Tactile/Visual/Demonstration): Facilitate positioning, Cues for cognitive deficit, Technique of activity, Cues for increased safety, Proper pacing Toileting Intervention/Details: Min A for clothing managemetn, pt able to perform delonte care with CGA while seated. Min-mod A for transfer, with cues for sequencing/safety. Extremity Assessments: See OT Evaluation flowsheet for Extremity Measurement updates. Balance: Sitting Balance Static Sitting-Level of Assistance: Minimum assistance (CGA-min) Dynamic Sitting-Level of Assistance: Minimum assistance Skilled Rationale: Verbal cues, Tactile cues, Positioning, Hand placement, Facilitate anterior shift, Full extension to upright positioning/posture, Finding/maintaining midline positioning, Cues for increased safety Sitting Balance Skilled Intervention/Details: Sitting EOB balance min A progressing to CGA (feet not reaching floor); cues for hand placement and positioning fo improved balance. Balance with back unsupported on toilet improved with feet on floor, requiring SBA for static and CGA for dynamic/completing pericare. Standing Balance Static Standing-Level of Assistance: Minimum assistance, Moderate assistance Dynamic Standing-Level of Assistance: Moderate assistance Standing-Balance Support: Gait belt, Left hand held assist Skilled Rationale: Verbal cues, Tactile cues, Positioning, Hand placement, Full extension to upright positioning/posture, Finding/maintaining midline positioning, Technique of activity, Cues for increased safety, Energy conservation Standing Balance Skilled Intervention/Details: Pt with improved standing balance at sink using UEs on sink; when cued to attempt without forward lean on sink during hand hygiene/face washing, pt reported she can't and maintained during tasks with min A. Without UE on sink, pt requires mod A for balance. Mobility Assessment/Intervention: Supine to Sit Mobility [place] Level: Supine->Sit: maximum assist (25% patient effort) Bed Features/Set-up: Supine->Sit: Use of bed rail, Head of bed elevated Skilled Rationale: Verbal cues, Tactile cues, Positioning, Hand placement, Sequencing, Technique ofactivity, Cues for increased safety, Full extension to upright positioning/posture, Facilitate anterior shift Transfer Assessment/Intervention: Sit to Stand Transfer [place] Level: Sit->Stand: moderate assist (50% patient effort) (min-mod) Assistive Device: Sit->Stand: gait belt, hand held assist Skilled Rationale: Verbal cues, Tactile cues, Positioning, Hand placement, Sequencing, Full extension to upright positioning/posture, Technique of activity, Cues for increased safety Skilled Intervention/Details: Sit->Stand: x1 from EOB, x1 from toilet, x3 from recliner.Cues forhand placement and technique to use momentum for improved independence. Stand to Sit Transfer [place] Level: Stand->Sit: moderate assist (50% patient effort) Assistive Device: Stand->Sit: gait belt, hand held assist Skilled Rationale: Verbal cues, Tactile cues, Positioning, Hand placement, Controlled descent for sitting, Technique of activity, Cues for increased safety Toilet Transfer [place] Level: Toilet: moderate assist (50% patient effort) Assistive Device: Toilet: gait belt, grab bars Skilled Rationale: Verbal cues, Tactile cues, Hand placement, Positioning, Full extension to upright positioning/posture, Controlled descent for sitting, Technique of activity, Cues for increased safety, Cues for technique and pacing for therapeutic exercises Functional Mobility: Functional Mobility [place] Level: Functional Mobility/Gait: moderate assist (50% patient effort) Assistive Device: Functional Mobility/Gait: gait belt, hand held assist Functional Mobility Distance: Distance needed to access restroom Ambulation Distance (Feet): 12 Functional Mobility Deficits: Activity tolerance, Balance, Decreased step length, Follow safety/precautions, Generalized weakness, Slowed gait speed Functional Mobility Skilled Rationale: Cues for cognitive deficit, Cues for increased safety, Facilitate positioning, Facilitate postural control, Hand placement, Proper pacing, Tactile cues, Technique of activity, Verbal cues Skilled Intervention/Details - Functional Mobility/Gait: Pt ambulated to toilet and chair with L handheld assist; cues for R hand placement to improve safety (i.e. to not hold door, waiting to initiate clothing management until positioned at toilet). Cues to position self appropriately at chair/toilet prior to initiating descent. Outcome Score(s): CURRENT [facility] Daily Activity Inpatient Short Form Putting on/Taking Off Lower Body Clothin - A Lot of Assistance Bathin - A Lot of Assistance Toiletin - A Little Assistance Putting on/Taking Off Upper Body Clothin - A Lot of Assistance Groomin - A Little Assistance Eatin - A Little Assistance CURRENT AM-PAC Activity Raw Score: 15 CURRENT AM-PAC Activity Functional Limitation/Modifier: 56.46% Currently Impaired in Daily Activity- CK Interventions: Intervention 1 Intervention Name: Cognition/orientation/communication Details: Pt facilitated in time orientation questions with graded challenges. Pt with word finding/expressive difficulty. For time orientation, pt reported Sunday and re-oriented to Sunday. Pt repeated Sunday despite changes in question (to day vs month vs year), but aware of error. Questions downgraded by providing options; pt re-oriented but still unable to correctly verbalize answers. Pt provided 3 written options; with increased time, pt able to correctly point to Sunday, January, and 2021. Upgraded challenge for day () providing 5 sequential options and pt verbalized she did not know (answer provided to pt). Assessment & Plan: Patient making progress toward plan of care goals, improving with functional transfers/mobility andbalance to complete ADL tasks. Pt will continue to benefit from skilled OT services to address deficits in balance, strength, functional transfers/mobilty, bed mobility, cognition and ADLs for improved safety and independence with occupational performance. Patient Instruction/Education this session: Patient Instruction: OT role, plan of care, orientation, safety Plan for next session: Progress bed mobility/transfers, cognition/coordination with ADLs, balance and activity tolerance Acute OT Goals Plan of Care by Nette Du OT at 01/27/2022 10:41 AM Version 1 of 1 Problem: OT - ADLs Goal: Grooming Description: Pt will complete grooming in standing with contact guard assistance for improved ability to safely complete ADLs. Outcome: Progressing Toward Goal Problem: OT - Cognition Goal: Cognition - Command following Description: Pt will follow 100 % of 1 step commands during ADL task for improved safety and success at discharge destination. Outcome: Progressing Toward Goal Problem: OT - Balance Goal: Balance - Seated Description: Pt will perform 10 minutes of ADL routine in sitting with supervision and balance level of supervision to promote safety during self-care activities. Outcome: Progressing Toward Goal Problem: OT - Strength/ROM Goal: Neuro Re-education Description: Pt will participate in neuro re-ed of (RUE/LUE) to improve strength by 1 muscle grade in each group, for improved use in ADLs. Outcome: Progressing Toward Goal OT treatment consisted of ADL retraining, balance training, bed mobility training, cognitive training, energy conservation/endurance training, neuromuscular re-education and transfer training to workand progress towards above goal(s). Treating Therapist: Nette Du OT Additional Details: Co-evaluation/co-treatment performed?: No simultaneous skilled care performed I used gloves and facemask in today's patient interaction. Patient location at end of session: chair Alarms on at end of session: chair alarm and family present Needs in reach. Time In: 1011 Time Out: 1041 Total Visit Time: 30 minutes Total Treatment Time (skilled, billable minutes): 30 minutes Upon discontinuation of Acute Care Occupational Therapy Services or patient discharge from the hospital this note represents the current Occupational Therapy Discharge Summary. * Charlette Rondon MD - 01/27/2022 7:46 AM EST I have seen and examined the patient with the team today. I have personally reviewed all the imaging studies and laboratory data and also reviewed the note. I agree with the assessment and plan with the following additions : HCT: R BG CVA, ICH transformation Ct stable CTA: R M1 occusion MRI: R MCA stroke with ICH transformation, punctate R cerebellar CVA ECHO: EF okay, LA enlarged Lab Results Component Value Date LDLCALC 90 01/20/2022 Lab Results Component Value Date HGBA1C 5.6 01/20/2022 Neuro Exam: MS: AA OX3. Language Dysarthria CN: Left FD Motor: 5/5 on right and Left HP Assessment: Karlie Valle is a 81 y.o. female with a past history of HTN, HLD, A- fib not on AC (d/t recent GIB. Last AC use was Nov). 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 Mild hemorrhagic transformation. Likely cardioembolic in etiology Plan: ASA now AC in 1 month Continue statin HTN: Keep <160. LFFT, amylase, lipase, LE duplex is negative DVT proph Risk factor modification and stroke education provided. Dc tomorrow Charlette Rondon MD Rigger Apprentice Department of Neurology * Ottoniel Benjamin PT - 01/26/2022 4:00 PM EST Acute Physical Therapy Treatment Prior to Admission [facility] score(s): PRIOR LEVEL AM-PAC Mobility Raw Score: 24 Current AM-PAC score(s): CURRENT AM-PAC Mobility Raw Score: 10 Based on the above AM-PAC score(s) and PT clinical judgment, patient is a good candidate for discharge to Inpatient Rehab Facility Supporting Factors (would benefit from skilled therapy services): Recent decline in functional mobility, Recent decline in cognitive function, Recent decline in self-care abilities Mobility equipment available at home: none used ADL equipment available at home: none Equipment needed for discharge: to be determined Current therapy frequency recommendation in acute: Therapy Frequency: 5 times a week Precautions and Weightbearing Status: Telemetry Patient Safety Communication Prior to Visit: Nursing Subjective: Reports she is tired Pain: General Pain Documentation (Adult, OB, Peds) Presence of Pain: denies pain/discomfort DVPRS (Defense and Veterans Pain Rating Scale) DVPRS: Rest: 0- no pain DVPRS: Activity: 0- no pain Objective/Observation: Vitals/Vitals Responses to Treatment: Fatigue throughout session. Mod SOB, pt family reports baseline, vitals WNL Respiratory Status O2 Device: room air Cognition Overall Cognitive Status: Impaired Arousal/Alertness: Delayed responses to stimuli Orientation Level: Oriented to person Following Commands: Follows one step commands with increased time, Follows one step commands with repetition Safety Judgment: Decreased awareness of need for safety, Decreased awareness of need for assistance Awareness of Errors: Decreased awareness of errors, Assistance required to correct errors made Deficits: Decreased awareness of deficits Extremity Assessments: See PT Evaluation flowsheet for Extremity Measurement updates. Balance: Sitting Balance Static Sitting-Level of Assistance: (CGA to min A) Dynamic Sitting-Level of Assistance: Minimum assistance Skilled Rationale: Verbal cues, Hand placement, Technique of activity, Upright gaze/neck extension,Finding/maintaining midline positioning, Full extension to upright positioning/posture Sitting Balance Skilled Intervention/Details: Initially min A for static due to posterior lean. Assistance with positioning and pt able to maintain. trunk control and L UE strength challenged with L elbow prop with reach of R UE to L UE to increase WB, max VC to facilitate. Min A to push back up into midline x6 Standing Balance Static Standing-Level of Assistance: Moderate assistance Dynamic Standing-Level of Assistance: Moderate assistance Standing-Balance Support: Gait belt, Bilateral hand held assist Skilled Rationale: Positioning, Verbal cues, Facilitate anterior shift, Full extension to upright positioning/posture, Technique of activity, Finding/maintaining midline positioning, Upright gaze/neck extension Standing Balance Skilled Intervention/Details: Unable to effecitlvely improve posterior lean. L LE knee block provided throughout to prvent knee buckle. Tolerates roughly 1 minute of stsanding. weight shifting to facilitate WB on L LE Mobility Assessment/Intervention: Supine to Sit Mobility [place] Level: Supine->Sit: moderate assist (50% patient effort) Bed Features/Set-up: Supine->Sit: Head of bed elevated, Use of bed rail Skilled Rationale: Verbal cues, Sequencing, Hand placement, Technique of activity Skilled Intervention/Details: Supine->Sit: Pt able to initiate with log roll with R LE, but needing guidance for reaching. assistance needed due to weakness Transfer Assessment/Intervention: Sit to Stand Transfer [place] Level: Sit->Stand: moderate assist (50% patient effort) Assistive Device: Sit->Stand: gait belt, hand held assist Skilled Rationale: Positioning, Sequencing, Hand placement, Verbal cues, Facilitate anterior shift,Ischial assist, Patellar block, Technique of activity Skilled Intervention/Details: Sit->Stand: x6 in session. Unable to sifnifiacntly improve independence due to L LE weakness and poor balance. Step by step cues needed for sequencing due to limited carryover Bed-Chair Transfer [place] Level: Bed<->Chair: moderate assist (50% patient effort) Assistive Device: Bed<->Chair: hand held assist Skilled Rationale: Positioning, Sequencing, Hand placement, Verbal cues, Tactile cues, Arm in arm, Patellar block, Ischial assist, Controlled descent for sitting, Finding/maintaining midline positioning, Upright gaze/neck extension, Technique of activity Skilled Intervention/Details: Bed<->Chair: Facilitation needed for weight shift, pt able to move L LE volitionally but unable to effectively clear floor, blocking provided due to occasional L LE buckle Outcome Score(s): CURRENT AM-[facility] Basic Mobility Inpatient Short Form Turning over in bed: 2 - A Lot of Assistance Sitting/standing from chair: 2 - A Lot of Assistance Moving from lying on back to sittin - A Lot of Assistance Moving to and from bed to chair: 2 - A Lot of Assistance Walk in hospital room: 1 - Total Assistance Climbing 3-5 steps with a railin - Total Assistance CURRENT -[facility] Mobility Raw Score: 10 CURRENT -[facility] Mobility Functional Limitation/Modifier: 76.75% Currently Impaired in Basic Mobility- CL Interventions: Intervention 1 Intervention Name: L LE LAQ Sets/Reps/Duration: 2x10 Details: Working on L LE strength, VC for intentional movement and full extension. AAROM needed with terminal knee extension. Mod cues needed for patient to count with repetitions Assessment & Plan: Patient with no signicant improvement in independence. Still needing mod A for OOB mobility. Increased volume of activity this session with 6 STS. Continue to work on functional activities and WB in L LE to promote NMR Patient Instruction/Education this session: STS mechanics Plan for next session: Progress with L NMR Acute PT Goals Plan of Care by Ottoniel Benjamin PT at 01/26/2022 4:00 PM Version 1 of 1 Problem: PT - Mobility Goal: Ambulation Description: Pt will ambulate 50 feet with wheeled walker with minimal assistance to improve ability to navigate home environment. Outcome: Progressing Toward Goal Problem: PT - Transfers Goal: Supine <-> Sit Description: Pt will perform bed mobility with flat bed & no rail with contact guard assistancein order to improve functional mobility and safety. Outcome: Progressing Toward Goal Goal: Sit <-> Stand Description: Pt will perform sit to/from stand transfers with contact guard assistance with wheeledwalker in order to improve functional mobility and safety. Outcome: Progressing Toward Goal Goal: Strength/ROM Description: Pt will perform 3 sets of 10 repetitions of lower bilateral extremity exercises with independence in order to improve strength, maintain ROM, necessary for functional mobility. Outcome: Progressing Toward Goal Goal: Stand-Pivot Description: Pt will perform stand/pivot transfer to/from bed/chair/commode with contact guard assistance with least restrictive device in order to improve functional mobility and safety. Outcome: Progressing Toward Goal PT treatment consisted of Therapeutic Activity to work and progress towards above goal(s). Treating Therapist: Ottoniel Benjamin PT Additional Details: Co-evaluation/co-treatment performed?: No simultaneous skilled care performed I used facemask, protective eye shield, and gloves in today's patient interaction. Patient location at end of session: chair Alarms on at end of session: chair alarm Needs in reach. Time In: 1321 Time Out: 1349 Total Visit Time: 28 minutes Total Treatment Time (skilled, billable minutes): 28 minutes Upon discontinuation of Acute Care Physical Therapy Services or patient discharge from the hospitalthis note represents the current Physical Therapy Discharge Summary. * OMAR Haji - 01/26/2022 3:32 PM EST 01/26/22 1445 Transportation Tracking Transport Company Contacted (1) Other (Comment) ([facility]) Date Requested 01/28/22 Time Requested 1100 Name of Transport Company ([facility] [phone]) Final Transport Request Dispatcher Called Yes ETA of Ambulance 11am Patient will discharge to [facility] [address] [facility] [id number] Susan Still LMS Chocolate Finisher Operator * Charlette Rondon MD - 01/26/2022 7:48 AM EST I have seen and examined the patient with the team today. I have personally reviewed all the imaging studies and laboratory data and also reviewed the note. I agree with the assessment and plan with the following additions : HCT: R BG CVA, ICH transformation Ct stable CTA: R M1 occusion MRI: R MCA stroke with ICH transformation, punctate R cerebellar CVA ECHO: EF okay, LA enlarged Lab Results Component Value Date LDLCALC 90 01/20/2022 Lab Results Component Value Date HGBA1C 5.6 01/20/2022 Neuro Exam: MS: AA OX3. Language Dysarthria CN: Left FD Motor: 5/5 on right and Left HP Assessment: Karlie Valle is a 81 y.o. female with a past history of HTN, HLD, A- fib not on AC (d/t recent GIB. Last AC use was Nov). 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 Mild hemorrhagic transformation. Likely cardioembolic in etiology Plan: ASA now AC in 1 month Continue statin HTN: Keep <160. No fever LFFT, amylase, lipase, LE duplex is negative DVT proph Risk factor modification and stroke education provided. Charlette Rondon MD Rigger Apprentice Department of Neurology * Lars Vallejo Pop, PACK PULLER-INDUSTRIAL CONTROLS TECHNICIAN - 01/26/2022 6:53 AM EST NEUROVASCULAR STROKE SERVICE Daily Progress Note IDENTIFYING INFORMATION Karlie Valle MR# [id number] 01/26/2022 HISTORY OF PRESENT ILLNESS Karlie Valle is a 81 y.o. female with a past history of HTN, HLD, A-fib not on AC (d/t recent GIB. Last AC use was Nov) Ms. Valle was transferred to [facility] after presenting to an OSH ([facility]) with dysarthria, left weakness and facial droop. Per. Ms. Valle's daughter, LKW [id number]. mRS 0. On 01/19, she was found to be very confused along with left weakness by her son-in-law. At the OSH, CTH revealed likely RMCA infarction, CTA RM1 occlusion. She was transferred to [facility], NIHSS 11. She was taken to the OR for thrombectomy and received TICI 3 revascularization. Of note, she had elevated troponin to 3300 at OSH, trending down to 3000 on arrival. INTERVAL HISTORY 01/20: Stroke workup pending, had TICI 3 revascularization overnight 01/21: CT head reviewed, holding aspirin/lovenox, repeat CTH tomorrow 01/22: Increased metoprolol per cardiology recs, repeat CTH from overnight reviewed, repeat CTH today due to increasing NIHSS, TTE pending, Febrile 102, chest xray reviewed, UA P, blood culture pending 01/23: metoprolol decreased due to bradycardia. Afebrile without signs of infection today. DVT ppx resumed, plan for CTH in AM, if stable will initiate ASA 01/24: Repeat CTH appears stable. Again fevered overnight, T max 101.8. Sent repeat Bcx, covid, fluswab. Repeat CXR negative, RR up as well. 01/25: WBC 11.5 & Tmax 99.6 overnight. CXR & labs negative. BCx pending. BLE venous duplex ordered. Lactate, amylase, lipase, LFTs pending. PRN duonebs changed to Q6h for wheezing. 01/26: Leukocytosis improved, afebrile overnight. RUQ U/S and BLE venous duplex negative. PHYSICAL EXAM Gen: drowsy, NAD HEENT: normocephalic, no scalp lesions or tenderness Neck: trachea midline No JVD CV: +S1S2, RRR, no m/r/g Lungs: LCTA bilaterally with equal chest rise Abd: soft, nontender, nondistended, +BS x4 quadrants Extrem: Warm and well perfused, no edema, 2+ pulses bilaterally Neuro: Dysarthric, mild aphasia, follows simple commands. Oriented to self. CN II - All visual atkinson intact CN II/III - PERRLA CN III/IV/ -EOMI CN V - Light touch to face intact in V1-3 CN VII - left facial droop CN VIII - Hearing intact CN X - Cough present CN XI - muscular movement of shoulders and sternocleidomastoid muscles intact and equal bilaterally CN XII - midline protrusion of tongue MOTOR EXAMINATION: BLE weakness with drift NIHSS 01/26/2022 Provider NIH Stroke Scale NIH Interval (Provider): daily NIH Level of Conciousness (Provider): 0 NIH LOC Questions (Provider): 1 NIH LOC Commands (Provider): 1 NIH Best Gaze (Provider): 0 NIH Visual (Provider): 0 NIH Facial Palsy (Provider): 1 NIH Left Arm Motor (Provider): 0 NIH Right Arm Motor (Provider): 0 NIH Left Leg Motor (Provider): 2 NIH Right Leg Motor (Provider): 2 NIH Limb Ataxia (Provider): 0 NIH Sensory (Provider): 0 NIH Best Language (Provider): 1 NIH Dysarthria (Provider): 1 NIH Extinction and Inattention (Provider): 0 NIH Total Score (Provider): 9 ASSESSMENT AND PLAN Neuro: 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 s/p TICI 3 revascularization CTH: R basal gangia stroke CTA brain/neck: R M1 occlusion CTP: R MCA mismatch MRI brain R MCA stroke with hemorrhagic transformation, punctate R cerebellar stroke Repeat CTH: Evolution of R basal gagnlia stroke with hemorrhagic conversion Repeat CTH 01/24: stable TTE: EF 60-65%, severe LAE EKG on admission: NSR, QTC 466 LDL 90 HgbA1c 5.6 Stroke Etiology (TOAST criteria): cardioembolic,afib, not on AC due to recent GI bleed AC plan: initiate Eliquis 1 month post stroke (02/16) ASA 81 mg initiated on 01/24 Atorvastatin 40 mg daily Ischemic Stroke Core Measures -NIHSS on admission 11 -Patient has been started on Mechanical (SCD's) and Pharmacological (SQ heparin/Lovenox) DVT prophylaxis. -Antiplatelet therapy has been initiated, Aspirin 81 mg daily. -Anticoagulation therapy was indicated for this patient, d/t afib -Patients LDL 90 and HgbA1c 5.6 were checked and the patient will be discharged on Atorvastatin 40 mg daily. -Dysphagia screening ordered, and will be completed prior to patient receiving oral intake. -Stroke education booklet has been ordered and will be provided by the RN that includes both written and verbal education to the patient and family regarding ischemic strokes. We have reviewed the patient's personal modifiable risk factors including: HTN, HLD, afib as well as education on reducing these risk factors -Patient is being assessed for Rehab by PT/OT/Speech and PM&R if indicated. Dysphagia -Speech following -Minced and moist diet -Calorie counts-75% of meals 01/24 -PO intake improved, IV fluids stopped 01/25 CAD, Troponemia on admission -Down trending, peaked at 3,590 -ECG NSR with non-specific ST/T wave abnormalities -Per cardiology consult: -Rate control goal < 80 BPM -Obtain TTE, favor noninvasive/medical mgmt for CAD if pt remains stable. -anticoagulation if/when able from a medical/stroke perspective. -If AC contraindicated due to GI bleed in the past, would consider GARRICK occlusion procedure, outpatient referral to electrophysiology. Fever, Leukocytosis: mild fever 99.96 overnight, WBC 11.5 today -Sent repeat Bcx, covid, flu swab. Repeat CXR negative, urinalysis unremarkable x2 -Blood cultures NGTD 05/14 -BLE venous duplex negative -Lactate, amylase, lipase WNL -AST elevated- RUQ U/S negative Atrial fibrillation, (POA) -Not on anticoagulation due to prior reported GI bleed, however, after discussion with family. GI bleed reported was only dark stool for 24 hours without need for blood transfusion or changes in Hgb.Pt had been taking AC for only a few days when this occurred and was told to stop by ER phsycian. - Started metoprolol 12.5 mg BID on 01/22 and increased to 50 mg BID per cardiology. Bradycardia and sinus pause overnight on 01/22-01/23, decreased to 25 mg BID -Home regimen :metoprolol 25 mg BID -AC plan: initiate Eliquis 1 month post stroke on 02/16 and monitor closely HTN, (POA) -SBP goal < 140 mmHg -PRN labetalol/hydralazine -metoprolol on 01/22 as above HLD, (POA) -LDL 90 -discontinue home simvastatin 40 mg daily -Start atorvastatin 40 mg daily Disposition: Karlie Valle will likely be discharged to [facility] pending transportation. Lars Lord APRN-INDUSTRIAL CONTROLS TECHNICIAN 01/26/2022 7:19 AM VITAL SIGNS Temp: [98.6 F (37 C)-98.9 F (37.2 C)] 98.6 F (37 C) Pulse (Heart Rate): [76-84] 76 Resp Rate: [18-22] 20 BP: (130-143)/(60-67) 143/67 O2 Sat (%): [96 %-98 %] 96 % Oxygen Therapy: Oxygen Therapy O2 Sat (%): 96 % O2 Device: room air Ventilator Settings and Monitoring (Adult/Peds) Total Respiratory Rate: 15 Intake/Output: Intake/Output Summary (Last 24 hours) at 01/26/2022 0719 Last data filed at 01/26/2022 0632 Gross per 24 hour Intake 90 ml Output 1100 ml Net -1010 ml LABS/CULTURES Lab Results Component Value Date WBC 11.01 01/26/2022 HGB 10.1 (L) 01/26/2022 HCT 30.3 (L) 01/26/2022 PLATELET 227 01/26/2022 MCV 91.5 01/26/2022 Lab Results Component Value Date SODIUM 135 01/26/2022 POTASSIUM 4.3 01/26/2022 CHLORIDE 104 01/26/2022 CO2 22 01/26/2022 BUN 24 01/26/2022 CREATSERUM 0.78 01/26/2022 GLUCOSE 94 01/26/2022 Lab Results Component Value Date CHOLESTEROL 171 01/20/2022 TRIG 134 01/20/2022 HDL 54 01/20/2022 LDLCALC 90 01/20/2022 Lab Results Component Value Date HGBA1C 5.6 01/20/2022 Lab Results Component Value Date ALBUMIN 3.1 (L) 01/25/2022 , No results found for: CPK, TROP IMAGING/DIAGNOSTIC STUDIES US ABDOMEN RUQ/LIVER/GB Final Result IMPRESSION: 1. Unremarkable sonographic appearance of the liver. 2. Cholelithiasis without evidence of acute cholecystitis. DUPLEX VENOUS EXTREMITY LOWER BILATERAL Final Result ECHOCARDIOGRAM Final Result XR CHEST PORTABLE Final Result IMPRESSION: No acute cardiopulmonary disease HEAD WITHOUT CONTRAST Final Result IMPRESSION: Stable examination as compared to 01/22/2022. HEAD WITHOUT CONTRAST Final Result IMPRESSION: Stable exam when compared to same day head CT. Stable appearance of hemorrhagic infarct in the right basal ganglia and nonhemorrhagic infarct in the right medial temporal lobe in the right cerebellum. Stable mass effect on the right lateral ventricle and 2 mm leftward midline shift. I personally viewed and interpreted these images and I have reviewed and approved this report. CHEST PORTABLE Final Result IMPRESSION: No definite acute process. HEAD WITHOUT CONTRAST Final Result IMPRESSION: Stable head CT when compared to the prior exam from January 20, 2022. Redemonstration of a hemorrhagic infarct in the right basal ganglia, nonhemorrhagic infarct in the right medial temporal lobe and the right cerebellum. Underlying mass effect on the right lateral ventricle with 2 mm midline shift to the left stable. HEAD WITHOUT CONTRAST Final Result IMPRESSION: Continued evolution of recent infarct involving the right basal ganglia and right medial temporal lobe, with worsening edema and mass effect and approximately 2 mm leftward midline shift. 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 There is also minimal acute subarachnoid hemorrhage along the right frontal sulci, new compared to prior. BRAIN WITHOUT CONTRAST Final Result IMPRESSION: Small acute infarct right cerebellum. Additional ovoid region of restricted diffusion in the medial right temporal lobe also concerning for additional region of acute infarction. Acute maturing infarct in the right caudate head and right lentiform nucleus with hemorrhagic transformation. There is associated regional mass effect with effacement of frontal horn of right lateral ventricle-progressed since previous CT from January 19, 2022. No significant leftward midline shift. PLAIN FILM FOR NEURO EXAM Final Result IMPRESSION: No radiopaque foreign body. CHEST PORTABLE Final Result IMPRESSION: Minimal left basilar volume loss; otherwise clear lungs. CEREBRAL PERFUSION ANALYSIS Final Result IMPRESSION: There is an area of core infarct in the right basal ganglia with adjacent penumbra as estimated above. I personally viewed and interpreted these images and I have reviewed and approved this report. STROKE HEAD-STROKE ALERT ONLY Final Result IMPRESSION: 1. Right basal ganglia hypodensity, likely consequence of acute ischemia. 2. Equivocal right thalamic lacunar infarct, age indeterminate. 3. Dense intracranial vessels, secondary to recent intravenous contrast administration. There is otherwise no convincing evidence of acute intracranial hemorrhage. No herniation or hydrocephalus. Findings were discussed with Yovany Manuel MD at 5:30 PM on January 19, 2022. I personally viewed and interpreted these images and I have reviewed and approved this report. RO IMAGING FOR NEURO ENDOVASCULAR (Results Pending) MEDICATIONS aspirin 81 mg Oral Daily Or aspirin 300 mg Rectal Daily atorvastatin 40 mg Oral QHS enoxaparin 30 mg Subcutaneous Daily early evening faMOTIdine 20 mg Oral Q12H ipratropium-albuterol 3 mL Nebulization Q6H metoprolol 25 mg Oral Q12H polyethylene glycol 17 g Oral Q12H Or polyethylene glycol 17 g Per NG tube Q12H senna 8.6 mg Oral QAM Or senna 8.6 mg Per NG tube QAM * OMAR Martinez - 01/25/2022 3:36 PM EST Progression of Care Note Expected Discharge Date: 01/27/2022 Medical Milestones Remaining: WBC 11.5 & Tmax 99.6 overnight. CXR & labs negative. BCx pending. BLE venous duplex ordered. Lactate, amylase, lipase, LFTs pending. PRN duonebs changed to Q6h for wheezing. Assessment and Discharge Plan as of 01/25/2022 3:36 PM [facility] Patient Choice for Post-Acute Providers Anticipated discharge disposition: Inpatient Rehab Facility Anticipated Services at Discharge: Physical Therapy, Occupational Therapy, Longterm, Outpatient follow up, Speech Therapy Explanation of Barriers: Medical Stability Readmission Risk Score Risk of Readmission: 6.7 Category Reference: High:16-100 Mod-High:10-16 Mod-Low: 5-10 Low: 0-5 JAKOB Martinez, ASSISTANT PROFESSOR OF PHYSICS Treasury Representative * Lindsay Scott - 01/25/2022 3:27 PM EST US RUQ complete. Report to follow. RN traveled with pt--no ticket to ride necessary. * KATHLEEN Gonzalez - 01/25/2022 2:55 PM EST Speech Language Pathology Attempt Note 01/25/2022 SUPERVISOR RECEIVING AND PROCESSING Therapy Completed: Attempted Attempted Reason: Patient is unavailable due to test/procedure KATHLEEN Gonzalez Time In: 1455 Time Out: 1455 Total Visit Time: 0 minutes Total Treatment Time (skilled, billable minutes): 0 minutes * Kell Almonte OT - 01/25/2022 2:42 PM EST Occupational Therapy Attempt Note 01/25/2022 OT Therapy Completed: Attempted Attempted Reason: Patient is unavailable due to test/procedure (Leaving for testing) Kell Almonte OT Time In: 1440 Time Out: 1440 Total Visit Time: 0 minutes Total Treatment Time (skilled, billable minutes): 0 minutes * Danielle Buckley, PT - 01/25/2022 10:37 AM EST Acute Physical Therapy Treatment PRIOR LEVEL AM-PAC Mobility Raw Score: 24 CURRENT AM-PAC Mobility Raw Score: 10 Based on the above AM-PAC score(s) and PT clinical judgment, patient is a good candidate for discharge to Inpatient Rehab Facility Supporting Factors (would benefit from skilled therapy services): Recent decline in functional mobility, Recent decline in cognitive function, Recent decline in self-care abilities Mobility equipment available at home: none used ADL equipment available at home: none Equipment needed for discharge: to be determined Current therapy frequency recommendation in acute: Therapy Frequency: 5 times a week Precautions and Weightbearing Status: Existing Precautions/Restrictions: fall Patient Safety Communication Prior to Visit: Nursing, INDUSTRIAL CONTROLS TECHNICIAN/PA (pt pending LEVD, but low suspicion ofDVT, approval for session from INDUSTRIAL CONTROLS TECHNICIAN) Lines/Tubes/Drains (Rehab Status): Telemetry Respiratory Status O2 Device: room air SUBJECTIVE: Pt sleeping soundly at start and end of session but agreeable to try to do a little activity. Pt reports fatigue during session, vitals stable throughout. Pain: General Pain Documentation (Adult, OB, Peds) Presence of Pain: complains of pain/discomfort OBJECTIVE: Cognition Overall Cognitive Status: Impaired Orientation Level: Oriented to person (Oriented to month, disoriented to day/year & place "the lab place") Cognition Comments: Pt with significant lethargy; was sleeping on arrival, and fell asleep immediately after session. Bed Mobility: Supine to Sit Mobility [place] Level: Supine->Sit: moderate assist (50% patient effort) Bed Features/Set-up: Supine->Sit: Head of bed elevated, Use of bed rail Skilled Rationale: Verbal cues, Tactile cues, Positioning, Sequencing, Hand placement Skilled Intervention/Details: Supine->Sit: Cues for crossbody reaching with RUE to sit up on L side of bed. CUes to advance BLE over EOB. Balance: Sitting Balance Static Sitting-Level of Assistance: (modA>SBA) Dynamic Sitting-Level of Assistance: Minimum assistance Skilled Rationale: Verbal cues, Tactile cues, Positioning, Full extension to upright positioning/posture, Finding/maintaining midline positioning Sitting Balance Skilled Intervention/Details: Pt tolerated ~8 minutes EOB. Standing Balance Static Standing-Level of Assistance: Moderate assistance Dynamic Standing-Level of Assistance: Moderate assistance Standing-Balance Support: Gait belt, Bilateral hand held assist Skilled Rationale: Verbal cues, Tactile cues, Positioning, Full extension to upright positioning/posture, Finding/maintaining midline positioning, Initiation and execution of task Standing Balance Skilled Intervention/Details: Facilitation at COM to reduce retropulsion in staticstanding and to promote lateral weight shift for contralateral advancement of LEs. Transfers: Sit to Stand Transfer [place] Level: Sit->Stand: moderate assist (50% patient effort) Assistive Device: Sit->Stand: gait belt, hand held assist Skilled Rationale: Verbal cues, Tactile cues, Positioning, Sequencing, Hand placement, Facilitate anterior shift, Full extension to upright positioning/posture, Ischial assist, Arm in arm, Initiationand execution of task Skilled Intervention/Details: Sit->Stand: x1 from EOB Stand to Sit Transfer [place] Level: Stand->Sit: moderate assist (50% patient effort) Assistive Device: Stand->Sit: gait belt, hand held assist Skilled Rationale: Verbal cues, Tactile cues, Ischial assist, Facilitate anterior shift, Controlleddescent for sitting, Sequencing, Hand placement Skilled Intervention/Details: Stand->Sit: x1 to recliner Bed-Chair Transfer [place] Level: Bed<->Chair: moderate assist (50% patient effort) Assistive Device: Bed<->Chair: gait belt, hand held assist Skilled Rationale: Verbal cues, Tactile cues, Sequencing, Hand placement Skilled Intervention/Details: Bed<->Chair: Faciliation of contralateral weight shift to advance B LEs in 90-deg turn. Education/Interventions: Intervention 1 Intervention Name: Exercises Sets/Reps/Duration: 2x5 AAROM Details: Facilitation of and education regarding importance of exercises when awake while in bed manjeet chair. Focus on arm raises, ankle pumps and knee bends. Pt's daughter present and also educated;activities written on whiteboard in room. ASSESSMENT & PLAN: Pt able to progress to stand/pivot transfer, which is a progression compared to yesterday. However,remains limited by fatigue. Would continue to benefit from skilled PT to progress towards PLOF. Plan for next session: standing, OOB activity PT treatment consisted of Therapeutic Activity and Therapeutic Procedure to work and progress towards goal(s). Treating Therapist: Danielle Buckley PT,DPT,NCS Additional Details: Co-evaluation/co-treatment performed?: No simultaneous skilled care performed I used gloves and facemask in today's patient interaction. Felicia Jean, present. Patient location at end of session: chair, RN aware and lift pad under patient Needs in reach. Time In: 1013 Time Out: 1037 Total Visit Time: 24 minutes Total Treatment Time (skilled, billable minutes): 24 minutes Upon discontinuation of Acute Care Physical Therapy Services or patient discharge from the hospitalthis note represents the current Physical Therapy Discharge Summary. Acute PT Goals Plan of Care by Danielle Buckley PT at 01/25/2022 10:37 AM Version 1 of 1 Problem: PT - Transfers Goal: Supine <-> Sit Description: Pt will perform bed mobility with flat bed & no rail with contact guard assistancein order to improve functional mobility and safety. Outcome: Progressing Toward Goal Goal: Sit <-> Stand Description: Pt will perform sit to/from stand transfers with contact guard assistance with wheeledwalker in order to improve functional mobility and safety. Outcome: Progressing Toward Goal Goal: Strength/ROM Description: Pt will perform 3 sets of 10 repetitions of lower bilateral extremity exercises with independence in order to improve strength, maintain ROM, necessary for functional mobility. Outcome: Progressing Toward Goal Goal: Stand-Pivot Description: Pt will perform stand/pivot transfer to/from bed/chair/commode with contact guard assistance with least restrictive device in order to improve functional mobility and safety. Outcome: Progressing Toward Goal * Lars Lord APRN-INDUSTRIAL CONTROLS TECHNICIAN - 01/25/2022 8:46 AM EST NEUROVASCULAR STROKE SERVICE Daily Progress Note IDENTIFYING INFORMATION Karlie Valle MR# [id number] 01/25/2022 HISTORY OF PRESENT ILLNESS Karlie Valle is a 81 y.o. female with a past history of HTN, HLD, A-fib not on AC (d/t recent GIB. Last AC use was Nov) Ms. Valle was transferred to [facility] after presenting to an OSH ([facility]) with dysarthria, left weakness and facial droop. Per. Ms. Valle's daughter, LKW [id number]. mRS 0. On 01/19, she was found to be very confused along with left weakness by her son-in-law. At the OSH, CTH revealed likely RMCA infarction, CTA RM1 occlusion. She was transferred to [facility], NIHSS 11. She was taken to the OR for thrombectomy and received TICI 3 revascularization. Of note, she had elevated troponin to 3300 at OSH, trending down to 3000 on arrival. INTERVAL HISTORY 01/20: Stroke workup pending, had TICI 3 revascularization overnight 01/21: CT head reviewed, holding aspirin/lovenox, repeat CTH tomorrow 01/22: Increased metoprolol per cardiology recs, repeat CTH from overnight reviewed, repeat CTH today due to increasing NIHSS, TTE pending, Febrile 102, chest xray reviewed, UA P, blood culture pending 01/23: metoprolol decreased due to bradycardia. Afebrile without signs of infection today. DVT ppx resumed, plan for CTH in AM, if stable will initiate ASA 01/24: Repeat CTH appears stable. Again fevered overnight, T max 101.8. Sent repeat Bcx, covid, fluswab. Repeat CXR negative, RR up as well. 01/25: WBC 11.5 & Tmax 99.6 overnight. CXR & labs negative. BCx pending. BLE venous duplex ordered. Lactate, amylase, lipase, LFTs pending. PRN duonebs changed to Q6h for wheezing. PHYSICAL EXAM Gen: drowsy, NAD HEENT: normocephalic, no scalp lesions or tenderness Neck: trachea midline No JVD CV: +S1S2, RRR, no m/r/g Lungs: LCTA bilaterally with equal chest rise Abd: soft, nontender, nondistended, +BS x4 quadrants Extrem: Warm and well perfused, no edema, 2+ pulses bilaterally Neuro: Dysarthric, follows simple commands. Oriented to self. CN II - All visual atkinson intact CN II/III - PERRLA CN III/IV/ -EOMI CN V - Light touch to face intact in V1-3 CN VII - left facial droop CN VIII - Hearing intact CN X - Cough present CN XI - muscular movement of shoulders and sternocleidomastoid muscles intact and equal bilaterally CN XII - midline protrusion of tongue MOTOR EXAMINATION: LUE mild drift, BLE weakness with drift NIHSS 01/25/2022 Provider NIH Stroke Scale NIH Interval (Provider): daily NIH Level of Conciousness (Provider): 0 NIH LOC Questions (Provider): 1 NIH LOC Commands (Provider): 1 NIH Best Gaze (Provider): 0 NIH Visual (Provider): 0 NIH Facial Palsy (Provider): 1 NIH Left Arm Motor (Provider): 1 NIH Right Arm Motor (Provider): 0 NIH Left Leg Motor (Provider): 2 NIH Right Leg Motor (Provider): 2 NIH Limb Ataxia (Provider): 0 NIH Sensory (Provider): 0 NIH Best Language (Provider): 1 NIH Dysarthria (Provider): 1 NIH Extinction and Inattention (Provider): 0 NIH Total Score (Provider): 10 ASSESSMENT AND PLAN Neuro: 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 s/p TICI 3 revascularization CTH: R basal gangia stroke CTA brain/neck: R M1 occlusion CTP: R MCA mismatch MRI brain R MCA stroke with hemorrhagic transformation, punctate R cerebellar stroke Repeat CTH: Evolution of R basal gagnlia stroke with hemorrhagic conversion Repeat CTH 01/24: stable TTE: EF 60-65%, severe LAE EKG on admission: NSR, QTC 466 LDL 90 HgbA1c 5.6 Stroke Etiology (TOAST criteria): cardioembolic,afib, not on AC due to recent GI bleed AC plan: initiate Eliquis 1 month post stroke ASA 81 mg initiated on 01/24 Atorvastatin 40 mg daily Ischemic Stroke Core Measures -NIHSS on admission 11 -Patient has been started on Mechanical (SCD's) and Pharmacological (SQ heparin/Lovenox) DVT prophylaxis. -Antiplatelet therapy has been initiated, Aspirin 81 mg daily. -Anticoagulation therapy was indicated for this patient, d/t afib -Patients LDL 90 and HgbA1c 5.6 were checked and the patient will be discharged on Atorvastatin 40 mg daily. -Dysphagia screening ordered, and will be completed prior to patient receiving oral intake. -Stroke education booklet has been ordered and will be provided by the RN that includes both written and verbal education to the patient and family regarding ischemic strokes. We have reviewed the patient's personal modifiable risk factors including: HTN, HLD, afib as well as education on reducing these risk factors -Patient is being assessed for Rehab by PT/OT/Speech and PM&R if indicated. Dysphagia -Speech following -Minced and moist diet -Calorie counts-75% of meals 01/24 -PO intake improved, IV fluids stopped 01/25 CAD, Troponemia on admission -Down trending, peaked at 3,590 -ECG NSR with non-specific ST/T wave abnormalities -Per cardiology consult: -Rate control goal < 80 BPM -Obtain TTE, favor noninvasive/medical mgmt for CAD if pt remains stable. -anticoagulation if/when able from a medical/stroke perspective. -If AC contraindicated due to GI bleed in the past, would consider GARRICK occlusion procedure, outpatient referral to electrophysiology. Fever, Leukocytosis: mild fever 99.96 overnight, WBC 11.5 today -Sent repeat Bcx, covid, flu swab. Repeat CXR negative, urinalysis unremarkable x2 -Blood cultures NGTD 03/16 -BLE venous duplex pending -Lactate, amylase, lipase, LFTs pending Atrial fibrillation, (POA) -Not on anticoagulation due to prior reported GI bleed, however, after discussion with family. GI bleed reported was only dark stool for 24 hours without need for blood transfusion or changes in Hgb.Pt had been taking AC for only a few days when this occurred and was told to stop by ER phsycian. - Started metoprolol 12.5 mg BID on 01/22 and increased to 50 mg BID per cardiology. Bradycardia and sinus pause overnight on 01/22-01/23, decreased to 25 mg BID -Home regimen :metoprolol 25 mg BID -AC plan: initiate Eliquis 1 month post stroke on 02/16 and monitor closely HTN, (POA) -SBP goal < 140 mmHg -PRN labetalol/hydralazine -metoprolol on 01/22 as above HLD, (POA) -LDL 90 -discontinue home simvastatin 40 mg daily -Start atorvastatin 40 mg daily Disposition: Karlie Valle will likely be discharged to [facility] pending medical readiness. Lars Lord, PACK PULLER-INDUSTRIAL CONTROLS TECHNICIAN 01/25/2022 8:48 AM VITAL SIGNS Temp: [97.5 F (36.4 C)-99.6 F (37.6 C)] 97.8 F (36.6 C) Pulse (Heart Rate): [73-83] 83 Resp Rate: [16-22] 16 BP: (121-175)/(57-76) 125/57 O2 Sat (%): [95 %-98 %] 98 % Weight: [49.6 kg (109 lb 4.8 oz)] 49.6 kg (109 lb 4.8 oz) Oxygen Therapy: Oxygen Therapy O2 Sat (%): 98 % O2 Device: room air Ventilator Settings and Monitoring (Adult/Peds) Total Respiratory Rate: 18 Intake/Output: Intake/Output Summary (Last 24 hours) at 01/25/2022 0848 Last data filed at 01/25/2022 0604 Gross per 24 hour Intake 979.3 ml Output 975 ml Net 4.3 ml LABS/CULTURES Lab Results Component Value Date WBC 11.59 (H) 01/25/2022 HGB 10.4 (L) 01/25/2022 HCT 32.0 (L) 01/25/2022 PLATELET 181 01/25/2022 MCV 92.5 01/25/2022 Lab Results Component Value Date SODIUM 137 01/25/2022 POTASSIUM 4.2 01/25/2022 CHLORIDE 107 01/25/2022 CO2 22 01/25/2022 BUN 20 01/25/2022 CREATSERUM 0.81 01/25/2022 GLUCOSE 107 (H) 01/25/2022 Lab Results Component Value Date CHOLESTEROL 171 01/20/2022 TRIG 134 01/20/2022 HDL 54 01/20/2022 LDLCALC 90 01/20/2022 Lab Results Component Value Date HGBA1C 5.6 01/20/2022 Lab Results Component Value Date ALBUMIN 3.4 (L) 01/20/2022 , No results found for: CPK, TROP IMAGING/DIAGNOSTIC STUDIES ECHOCARDIOGRAM Final Result XR CHEST PORTABLE Final Result IMPRESSION: No acute cardiopulmonary disease HEAD WITHOUT CONTRAST Final Result IMPRESSION: Stable examination as compared to 01/22/2022. HEAD WITHOUT CONTRAST Final Result IMPRESSION: Stable exam when compared to same day head CT. Stable appearance of hemorrhagic infarct in the right basal ganglia and nonhemorrhagic infarct in the right medial temporal lobe in the right cerebellum. Stable mass effect on the right lateral ventricle and 2 mm leftward midline shift. I personally viewed and interpreted these images and I have reviewed and approved this report. CHEST PORTABLE Final Result IMPRESSION: No definite acute process. HEAD WITHOUT CONTRAST Final Result IMPRESSION: Stable head CT when compared to the prior exam from January 20, 2022. Redemonstration of a hemorrhagic infarct in the right basal ganglia, nonhemorrhagic infarct in the right medial temporal lobe and the right cerebellum. Underlying mass effect on the right lateral ventricle with 2 mm midline shift to the left stable. HEAD WITHOUT CONTRAST Final Result IMPRESSION: Continued evolution of recent infarct involving the right basal ganglia and right medial temporal lobe, with worsening edema and mass effect and approximately 2 mm leftward midline shift. 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 There is also minimal acute subarachnoid hemorrhage along the right frontal sulci, new compared to prior. BRAIN WITHOUT CONTRAST Final Result IMPRESSION: Small acute infarct right cerebellum. Additional ovoid region of restricted diffusion in the medial right temporal lobe also concerning for additional region of acute infarction. Acute maturing infarct in the right caudate head and right lentiform nucleus with hemorrhagic transformation. There is associated regional mass effect with effacement of frontal horn of right lateral ventricle-progressed since previous CT from January 19, 2022. No significant leftward midline shift. PLAIN FILM FOR NEURO EXAM Final Result IMPRESSION: No radiopaque foreign body. CHEST PORTABLE Final Result IMPRESSION: Minimal left basilar volume loss; otherwise clear lungs. CEREBRAL PERFUSION ANALYSIS Final Result IMPRESSION: There is an area of core infarct in the right basal ganglia with adjacent penumbra as estimated above. I personally viewed and interpreted these images and I have reviewed and approved this report. STROKE HEAD-STROKE ALERT ONLY Final Result IMPRESSION: 1. Right basal ganglia hypodensity, likely consequence of acute ischemia. 2. Equivocal right thalamic lacunar infarct, age indeterminate. 3. Dense intracranial vessels, secondary to recent intravenous contrast administration. There is otherwise no convincing evidence of acute intracranial hemorrhage. No herniation or hydrocephalus. Findings were discussed with Yovany Manuel MD at 5:30 PM on January 19, 2022. I personally viewed and interpreted these images and I have reviewed and approved this report. RO IMAGING FOR NEURO ENDOVASCULAR (Results Pending) MEDICATIONS aspirin 81 mg Oral Daily Or aspirin 300 mg Rectal Daily atorvastatin 40 mg Oral QHS enoxaparin 30 mg Subcutaneous Daily early evening faMOTIdine 20 mg Oral Q12H metoprolol 25 mg Oral Q12H polyethylene glycol 17 g Oral Q12H Or polyethylene glycol 17 g Per NG tube Q12H senna 8.6 mg Oral QAM Or senna 8.6 mg Per NG tube QAM * Charlette Rondon MD - 01/25/2022 7:50 AM EST I have seen and examined the patient with the team today. I have personally reviewed all the imaging studies and laboratory data and also reviewed the note. I agree with the assessment and plan with the following additions : HCT: R BG CVA, ICH transformation Ct stable CTA: R M1 occusion MRI: R MCA stroke with ICH transformation, punctate R cerebellar CVA ECHO: EF okay, LA enlarged Lab Results Component Value Date LDLCALC 90 01/20/2022 Lab Results Component Value Date HGBA1C 5.6 01/20/2022 Neuro Exam: MS: OLAYINKA OX3. Language Dysarthria CN: Left FD Motor: 5/5 on right and Left HP Assessment: Karlie Valle is a 81 y.o. female with a past history of HTN, HLD, A- fib not on AC (d/t recent GIB. Last AC use was Nov). 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 Mild hemorrhagic transformation. Likely cardioembolic in etiology Plan: ASA now AC in 1 month Continue statin HTN: Keep <160. Repeat CXR is stable IS, Neb rx LFFT, amylase, lipase, LE duplex Start DVT proph Risk factor modification and stroke education provided. Charlette Rondon MD Rigger Apprentice Department of Neurology * Danielle Buckley, PT - 01/24/2022 1:39 PM EST Acute Physical Therapy Treatment PRIOR LEVEL AM-PAC Mobility Raw Score: 24 CURRENT AM-PAC Mobility Raw Score: 10 Based on the above AM-PAC score(s) and PT clinical judgment, patient is a good candidate for discharge to Inpatient Rehab Facility Supporting Factors (would benefit from skilled therapy services): Patient status is anticipated to be appropriate to tolerate inpatient rehab therapy requirements at time of discharge from acute care Mobility equipment available at home: none used ADL equipment available at home: none Equipment needed for discharge: to be determined Current therapy frequency recommendation in acute: Therapy Frequency: 5 times a week Precautions and Weightbearing Status: Existing Precautions/Restrictions: fall Patient Safety Communication Prior to Visit: Nursing Lines/Tubes/Drains (Rehab Status): Telemetry Respiratory Status O2 Device: room air SUBJECTIVE: Pt in bed, agreeable to session. States she doesn't really remember spending time in the chair after OT session. Pt limited by activity tolerance today. Pain: General Pain Documentation (Adult, OB, Peds) Presence of Pain: denies pain/discomfort OBJECTIVE: Vitals/Response to Treatment: SpO2 96%, BP 160/67mmHg Cognition Overall Cognitive Status: Impaired Arousal/Alertness: Delayed responses to stimuli Orientation Level: Oriented to person, Oriented to place (Oriented to birthday with cues, Not oriented to year with choices) Following Commands: Follows commands 50-75% of the time, Follows multistep commands with repetition Bed Mobility: Supine to Sit Mobility [place] Level: Supine->Sit: maximum assist (25% patient effort) Bed Features/Set-up: Supine->Sit: Head of bed elevated, Use of bed rail Skilled Rationale: Verbal cues, Tactile cues, Sequencing Skilled Intervention/Details: Supine->Sit: Cues for crossbody reaching with RUE to sit up on L side of bed. CUes to advance BLE over EOB. Sit to Supine Mobility [place] Level: Sit->Supine: maximum assist (25% patient effort) Bed Features/Set-up: Sit->Supine: Flat Skilled Rationale: Verbal cues, Tactile cues, Sequencing Skilled Intervention/Details: Sit->Supine: CUes for sidelying>supine seqencing. Balance: Sitting Balance Static Sitting-Level of Assistance: (CGA/SBA) Dynamic Sitting-Level of Assistance: Minimum assistance Skilled Rationale: Verbal cues, Tactile cues, Finding/maintaining midline positioning Sitting Balance Skilled Intervention/Details: Pt tolerated <10min EOB; endorses feeling fatigued, is visibly SOB/inc RR. Also endorses feeling lightheaded/dizzy. Vitals stable throughout. Pt reports feeling better in supine at end of session. Standing Balance Static Standing-Level of Assistance: Moderate assistance Dynamic Standing-Level of Assistance: Moderate assistance Standing-Balance Support: Gait belt, Bilateral hand held assist Skilled Rationale: Verbal cues, Tactile cues, Full extension to upright positioning/posture Standing Balance Skilled Intervention/Details: Facilitation of midline orientation in sagittal plane to reduce retropulsion. Advancing lateral weight shift to take x3 sidesteps L towards HOB. Transfers: Sit to Stand Transfer [place] Level: Sit->Stand: moderate assist (50% patient effort) Assistive Device: Sit->Stand: gait belt, hand held assist Skilled Rationale: Verbal cues, Tactile cues, Positioning, Sequencing, Facilitate anterior shift, Full extension to upright positioning/posture, Finding/maintaining midline positioning, Arm in arm, Ischial assist Skilled Intervention/Details: Sit->Stand: x1 from EOB Stand to Sit Transfer [place] Level: Stand->Sit: moderate assist (50% patient effort) Assistive Device: Stand->Sit: gait belt, hand held assist Skilled Rationale: Verbal cues, Tactile cues, Sequencing, Facilitate anterior shift, Controlled descent for sitting Skilled Intervention/Details: Stand->Sit: x1 to EOB Bed-Chair Transfer [place] Level: Bed<->Chair: (Unable to tolerate this session; pt returned to bed for bedside echo.) ASSESSMENT & PLAN: Pt limited with progress d/t activity tolerance but able to stand this date & take sidesteps. Would continue to benefit from skilled PT to progress towards PLOF. Plan for next session: standing balance, repeated transfers for activity tolerance PT treatment consisted of Therapeutic Activity and Neuro Muscle Re-Education to work and progress towards goal(s). Treating Therapist: Danielle Buckley PT,DPT,NCS Additional Details: Co-evaluation/co-treatment performed?: No simultaneous skilled care performed I used gloves and facemask in today's patient interaction. Assisted by Felicia Arizmendi Patient location at end of session: bed with head of bed elevated, bed alarm, RN aware Needs in reach. Time In: 1320 Time Out: 1339 Total Visit Time: 19 minutes Total Treatment Time (skilled, billable minutes): 19 minutes Upon discontinuation of Acute Care Physical Therapy Services or patient discharge from the hospitalthis note represents the current Physical Therapy Discharge Summary. Acute PT Goals Plan of Care by Danielle Buckley PT at 01/24/2022 1:39 PM Version 1 of 1 Problem: PT - Transfers Goal: Supine <-> Sit Description: Pt will perform bed mobility with flat bed & no rail with contact guard assistancein order to improve functional mobility and safety. Outcome: Progressing Toward Goal Goal: Sit <-> Stand Description: Pt will perform sit to/from stand transfers with contact guard assistance with wheeledwalker in order to improve functional mobility and safety. Outcome: Progressing Toward Goal Problem: PT - Mobility Goal: Ambulation Description: Pt will ambulate 50 feet with wheeled walker with minimal assistance to improve ability to navigate home environment. Outcome: Ongoing * OMAR Martinez - 01/24/2022 1:20 PM EST Progression of Care Note Expected Discharge Date: 01/27/2022 Medical Milestones Remaining: Repeat CTH appears stable. Again fevered overnight, T max 101.8. Sentrepeat Bcx, covid, flu swab. Repeat CXR, RR up as well. Assessment and Discharge Plan as of 01/24/2022 1:20 PM SNF Patient Choice for Post-Acute Providers Anticipated discharge disposition: Inpatient Rehab Facility Anticipated Services at Discharge: Physical Therapy, Occupational Therapy, Longterm, Outpatient follow up, Speech Therapy Explanation of Barriers: Medical Stability Readmission Risk Score Risk of Readmission: 3.6 Category Reference: High:16-100 Mod-High:10-16 Mod-Low: 5-10 Low: 0-5 JAKOB Martinez, ASSISTANT PROFESSOR OF PHYSICS Treasury Representative * DINORAH Comer - 01/24/2022 11:46 AM EST Progress Note [facility] is facility of choice, IRP accepted, [employer] reserved. Needs transport, medical clearance. [employer] TEND[facility] will continue to follow. No covid or precert needed. DINORAH Carranza Chocolate Finisher Operator [id number] Please note that I am a float secondary social studies teacher and may not cover the same service every day. Please call the main social work office at [phone] for up-to-date coverage. * Nette Du OT - 01/24/2022 10:01 AM EST Acute Occupational Therapy Treatment Prior to Admission AM-PAC Score: PRIOR LEVEL AM-PAC Mobility Raw Score: 24 Current AM-PAC score(s): CURRENT AM-PAC Activity Raw Score: 12 Based on the above AM-PAC score(s), and OT clinical judgment, discharge destination recommendation is: Inpatient Rehab Facility Supporting Factors (would benefit from skilled therapy services): Patient status is anticipated to be appropriate to tolerate inpatient rehab therapy requirements at time of discharge from acute care, Impaired self-care abilities, Impaired balance, Impaired cognitive status Mobility equipment available at home: none used ADL equipment available at home: none Equipment recommendations for discharge: to be determined Current therapy frequency recommendation(s) in acute: 5 times a week Precautions and Weightbearing Status: OT Existing Precautions/Restrictions: fall Telemetry Patient Safety Communication Prior to Visit: Nursing Subjective: Patient agreeable to session, motivated to transfer to chair following EOB ADLs. Pain: General Pain Documentation (Adult, OB, Peds) Presence of Pain: denies pain/discomfort Objective/Observation: Vitals/Vitals Responses to Treatment: Vital signs stable. Respiratory Status O2 Device: room air Cognition Overall Cognitive Status: Impaired Arousal/Alertness: Delayed responses to stimuli Orientation Level: Oriented to person Following Commands: Follows one step commands with increased time, Follows one step commands with repetition Safety Judgment: Decreased awareness of need for assistance, Decreased awareness of need for safety Awareness of Errors: Assistance required to identify errors made, Assistance required to correct errors made ADL Assessment/Intervention: Grooming Assistance: Moderate Grooming Location: edge of bed Grooming Deficit: Increased time to complete, Activity tolerance, Generalized weakness, Balance, Retrieval of items, Manipulation of items, Opening/closing containers, Oral care, Brushing hair, Problem solving, Sequencing Grooming Skilled Rationale (Verbal/Tactile/Visual/Demonstration): Facilitate positioning, Facilitate postural control, Cues for cognitive deficit, Technique of activity, Setup, Energy Conservation, Proper pacing Grooming Intervention/Details: Pt facilitated in grooming tasks EOB. Bilateral UE use for manipulating items/opening packages with increased time to complete and min A due to decreased strength/dexterity. Pt required cues for problem solving/objects and sequencing with objects provided; pt intiateduse of hair brush with toothpaste and cued to correct; pt required cues to obtain/place cup under mouth prior to spitting. Pt demonstrated mild perseveration on tasks, with cues to stop/initate next steps (i.e. continually brushing same spot on hair). Extremity Assessments: See OT Evaluation flowsheet for Extremity Measurement updates. Balance: Sitting Balance Static Sitting-Level of Assistance: Minimum assistance (SBA-min A) Dynamic Sitting-Level of Assistance: Minimum assistance Skilled Rationale: Verbal cues, Positioning, Full extension to upright positioning/posture, Technique of activity, Cues for increased safety, Energy conservation, Tactile cues Sitting Balance Skilled Intervention/Details: Pt tolerated ~15 minutes EOB with standby assist progressing to min A due to increased fatigue. Facilitated in improved positioning and cued for posture.Pt rerported RPE 5/10 for seated grooming tasks. Mobility Assessment/Intervention: Supine to Sit Mobility [place] Level: Supine->Sit: maximum assist (25% patient effort) Bed Features/Set-up: Supine->Sit: Head of bed elevated Skilled Rationale: Verbal cues, Tactile cues, Positioning, Sequencing, Technique of activity Transfer Assessment/Intervention: Sit to Stand Transfer [place] Level: Sit->Stand: maximum assist (25% patient effort) Assistive Device: Sit->Stand: gait belt, hand held assist Skilled Rationale: Verbal cues, Tactile cues, Positioning, Hand placement, Sequencing, Technique ofactivity, Facilitate anterior shift, Full extension to upright positioning/posture Skilled Intervention/Details: Sit->Stand: x1 from EOB, x1 from chair. Stand to Sit Transfer [place] Level: Stand->Sit: maximum assist (25% patient effort) Assistive Device: Stand->Sit: gait belt Skilled Rationale: Verbal cues, Tactile cues, Hand placement, Positioning, Technique of activity, Controlled descent for sitting Skilled Intervention/Details: Stand->Sit: x2 to chair. Bed-Chair Transfer [place] Level: Bed<->Chair: moderate assist (50% patient effort) Assistive Device: Bed<->Chair: gait belt, hand held assist Skilled Rationale: Verbal cues, Tactile cues, Positioning, Sequencing, Technique of activity, Cues for increased safety Outcome Score(s): CURRENT [facility] Daily Activity Inpatient Short Form Putting on/Taking Off Lower Body Clothin - A Lot of Assistance Bathin - A Lot of Assistance Toiletin - A Lot of Assistance Putting on/Taking Off Upper Body Clothin - A Lot of Assistance Groomin - A Lot of Assistance Eatin - A Lot of Assistance CURRENT [facility] Activity Raw Score: 12 CURRENT [facility] Activity Functional Limitation/Modifier: 66.57% Currently Impaired in Daily Activity- CL Assessment & Plan: Patient demonstrating progress toward plan of care goals, with improving participation in ADLs and balance. Patient will continue to benefit from skilled OT services to address deficits in balance, strength, functional transfers/mobility and cognition for improved safety/independence in occupational performance. Patient Instruction/Education this session: Patient Instruction: OT role, plan of care Plan for next session: Progress balance, activity tolerance, ADLs, cognition Acute OT Goals Plan of Care by Nette Du OT at 01/24/2022 10:01 AM Version 1 of 1 Problem: OT - ADLs Goal: Grooming Description: Pt will complete grooming in standing with contact guard assistance for improved ability to safely complete ADLs. Outcome: Progressing Toward Goal Problem: OT - Cognition Goal: Cognition - Command following Description: Pt will follow 100 % of 1 step commands during ADL task for improved safety and success at discharge destination. Outcome: Progressing Toward Goal Problem: OT - Balance Goal: Balance - Seated Description: Pt will perform 10 minutes of ADL routine in sitting with supervision and balance level of supervision to promote safety during self-care activities. Outcome: Progressing Toward Goal Problem: OT - Strength/ROM Goal: Neuro Re-education Description: Pt will participate in neuro re-ed of (RUE/LUE) to improve strength by 1 muscle grade in each group, for improved use in ADLs. Outcome: Progressing Toward Goal OT treatment consisted of ADL retraining, bed mobility training, cognitive training, energy conservation/endurance training and transfer training to work and progress towards above goal(s). Treating Therapist: Nette Du OT Additional Details: Co-evaluation/co-treatment performed?: No simultaneous skilled care performed I used N-95 mask, protective eye shield, gown and gloves in today's patient interaction. Patient location at end of session: chair Alarms on at end of session: chair alarm and RN aware andfamily present Needs in reach. Time In: 928 Time Out: 1001 Total Visit Time: 32 minutes Total Treatment Time (skilled, billable minutes): 32 minutes Upon discontinuation of Acute Care Occupational Therapy Services or patient discharge from the hospital this note represents the current Occupational Therapy Discharge Summary. * Charlette Rondon MD - 01/24/2022 7:22 AM EST I have seen and examined the patient with the team today. I have personally reviewed all the imaging studies and laboratory data and also reviewed the note. I agree with the assessment and plan with the following additions : HCT: R BG CVA, ICH transformation Ct stable CTA: R M1 occusion MRI: R MCA stroke with ICH transformation, punctate R cerebellar CVA ECHO: P Lab Results Component Value Date LDLCALC 90 01/20/2022 Lab Results Component Value Date HGBA1C 5.6 01/20/2022 Neuro Exam: MS: AA OX3. Language Dysarthria CN: Left FD Motor: 5/5 on right and Left HP Assessment: Karlie Valle is a 81 y.o. female with a past history of HTN, HLD, A- fib not on AC (d/t recent GIB. Last AC use was Nov). 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 Mild hemorrhagic transformation. Likely cardioembolic in etiology Plan: Resume ASA as stable CT. AC in 1 month Continue statin HTN: Keep <160. Repeat CXR Start DVT proph Risk factor modification and stroke education provided. Charlette Rondon MD Rigger Apprentice Department of Neurology * Janey Sanches APRN-INDUSTRIAL CONTROLS TECHNICIAN - 01/24/2022 6:40 AM EST NEUROVASCULAR STROKE SERVICE Daily Progress Note IDENTIFYING INFORMATION Karlie Valle MR# [id number] 01/24/2022 HISTORY OF PRESENT ILLNESS Karlie Valle is a 81 y.o. female with a past history of HTN, HLD, A-fib not on AC (d/t recent GIB. Last AC use was Nov) Ms. Valle was transferred to [facility] after presenting to an OSH ([facility]) with dysarthria, left weakness and facial droop. Per. Ms. Valle's daughter, LKW 01/18. mRS 0. On 01/19, she was found to be very confused along with left weakness by her son-in-law. At the OSH, CTH revealed likely RMCA infarction, CTA RM1 occlusion. She was transferred to [facility], NIHSS 11. She was taken to the OR for thrombectomy and received TICI 3 revascularization. Of note, she had elevated troponin to 3300 at OSH, trending down to 3000 on arrival. INTERVAL HISTORY 01/20: Stroke workup pending, had TICI 3 revascularization overnight 01/21: CT head reviewed, holding aspirin/lovenox, repeat CTH tomorrow 01/22: Increased metoprolol per cardiology recs, repeat CTH from overnight reviewed, repeat CTH today due to increasing NIHSS, TTE pending, Febrile 102, chest xray reviewed, UA P, blood culture pending 01/23: metoprolol decreased due to bradycardia. Afebrile without signs of infection today. DVT ppx resumed, plan for CTH in AM, if stable will initiate ASA 01/24: Repeat CTH appears stable. Again fevered overnight, T max 101.8. Sent repeat Bcx, covid, fluswab. Repeat CXR, RR up as well. PHYSICAL EXAM Gen: awake, alert, NAD HEENT: normocephalic, no scalp lesions or tenderness Neck: trachea midline No JVD CV: +S1S2, RRR, no m/r/g Lungs: LCTA bilaterally with equal chest rise Abd: soft, nontender, nondistended, +BS x4 quadrants Extrem: Warm and well perfused, no edema, 2+ pulses bilaterally Neuro: Dysarthric, follows commands. Oriented to self. CN II - All visual atkinson intact CN II/III - PERRLA CN III/IV/ -EOMI CN V - Light touch to face intact in V1-3 CN VII - left facial droop CN VIII - Hearing intact CN X - Cough present CN XI - muscular movement of shoulders and sternocleidomastoid muscles intact and equal bilaterally CN XII - midline protrusion of tongue MOTOR EXAMINATION: LUE mild drift, LLE with antigravity strength NIHSS 01/24/2022 Provider NIH Stroke Scale NIH Interval (Provider): daily NIH Level of Conciousness (Provider): 0 NIH LOC Questions (Provider): 1 NIH LOC Commands (Provider): 0 NIH Best Gaze (Provider): 0 NIH Visual (Provider): 0 NIH Facial Palsy (Provider): 1 NIH Left Arm Motor (Provider): 2 NIH Right Arm Motor (Provider): 0 NIH Left Leg Motor (Provider): 1 NIH Right Leg Motor (Provider): 0 NIH Limb Ataxia (Provider): 0 NIH Sensory (Provider): 0 NIH Best Language (Provider): 0 NIH Dysarthria (Provider): 0 NIH Extinction and Inattention (Provider): 0 NIH Total Score (Provider): 5 ASSESSMENT AND PLAN Neuro: 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 s/p TICI 3 revascularization CTH: R basal gangia stroke CTA brain/neck: R M1 occlusion CTP: R MCA mismatch MRI brain R MCA stroke with hemorrhagic transformation, punctate R cerebellar stroke Repeat CTH: Evolution of R basal gagnlia stroke with hemorrhagic conversion Repeat CTH 11/15: stable TTE pending EKG on admission: NSR, QTC 466 LDL 90 HgbA1c 5.6 Stroke Etiology (TOAST criteria): cardioembolic,afib, not on AC due to recent GI bleed AC plan: initiate Eliquis 1 month post stroke ASA 81 mg initiated on 01/24 Atorvastatin 40 mg daily Ischemic Stroke Core Measures -NIHSS on admission 11 -Patient has been started on Mechanical (SCD's) and Pharmacological (SQ heparin/Lovenox) DVT prophylaxis. -Antiplatelet therapy has been initiated, Aspirin 81 mg daily. -Anticoagulation therapy was indicated for this patient, d/t afib -Patients LDL 90 and HgbA1c 5.6 were checked and the patient will be discharged on Atorvastatin 40 mg daily. -Dysphagia screening ordered, and will be completed prior to patient receiving oral intake. -Stroke education booklet has been ordered and will be provided by the RN that includes both written and verbal education to the patient and family regarding ischemic strokes. We have reviewed the patient's personal modifiable risk factors including: HTN, HLD, afib as well as education on reducing these risk factors -Patient is being assessed for Rehab by PT/OT/Speech and PM&R if indicated. Dysphagia -Speech following -Minced and moist diet -Calorie counts-25 % of meals on 01/21 -IV fluid supplementation CAD, Troponemia on admission -Down trending, peaked at 3,590 -ECG NSR with non-specific ST/T wave abnormalities -Per cardiology consult: -Rate control goal < 80 BPM -Obtain TTE, favor noninvasive/medical mgmt for CAD if pt remains stable. -anticoagulation if/when able from a medical/stroke perspective. -If AC contraindicated due to GI bleed in the past, would consider GARRICK occlusion procedure, outpatient referral to electrophysiology. Fever, Leukocytosis: Again fevered overnight, T max 101.8. -Sent repeat Bcx, covid, flu swab. Repeat CXR, RR up as well -WBC 11 today from 10 -urinalysis unremarkable x2 -Blood cultures pending Atrial fibrillation, (POA) -Not on anticoagulation due to prior reported GI bleed, however, after discussion with family. GI bleed reported was only dark stool for 24 hours without need for blood transfusion or changes in Hgb.Pt had been taking AC for only a few days when this occurred and was told to stop by ER phsycian. - Started metoprolol 12.5 mg BID on 01/22 and increased to 50 mg BID per cardiology. Bradycardia and sinus pause overnight on 01/22-01/23, decreased to 25 mg BID -Home regimen :metoprolol 25 mg BID AC plan: initiate Eliquis 1 month post stroke on 02/16 and monitor closely HTN, (POA) -SBP goal < 140 mmHg -PRN labetalol/hydralazine -metoprolol on 01/22 as above HLD, (POA) -LDL 90 -discontinue home simvastatin 40 mg daily -Start atorvastatin 40 mg daily Disposition: Karlie Valle will likely be discharged to [facility] pending completion of stroke workup and medical readiness Janey Sanches APRN-INDUSTRIAL CONTROLS TECHNICIAN 01/24/2022 6:41 AM VITAL SIGNS Temp: [97.7 F (36.5 C)-101.1 F (38.4 C)] 99.3 F (37.4 C) Pulse (Heart Rate): [65-82] 70 Resp Rate: [16-23] 16 BP: (117-172)/(58-72) 147/65 O2 Sat (%): [93 %-100 %] 100 % Oxygen Therapy: Oxygen Therapy O2 Sat (%): 100 % O2 Device: room air Intake/Output: Intake/Output Summary (Last 24 hours) at 01/24/2022 0641 Last data filed at 01/24/2022 0605 Gross per 24 hour Intake 2111.58 ml Output 455 ml Net 1656.58 ml LABS/CULTURES Lab Results Component Value Date WBC 11.34 (H) 01/24/2022 HGB 9.4 (L) 01/24/2022 HCT 28.2 (L) 01/24/2022 PLATELET 170 01/24/2022 MCV 92.2 01/24/2022 Lab Results Component Value Date SODIUM 140 01/24/2022 POTASSIUM 3.9 01/24/2022 CHLORIDE 110 (H) 01/24/2022 CO2 24 01/24/2022 BUN 21 01/24/2022 CREATSERUM 0.68 01/24/2022 GLUCOSE 82 01/24/2022 Lab Results Component Value Date CHOLESTEROL 171 01/20/2022 TRIG 134 01/20/2022 HDL 54 01/20/2022 LDLCALC 90 01/20/2022 Lab Results Component Value Date HGBA1C 5.6 01/20/2022 Lab Results Component Value Date ALBUMIN 3.4 (L) 01/20/2022 , No results found for: CPK, TROP IMAGING/DIAGNOSTIC STUDIES CT HEAD WITHOUT CONTRAST Final Result IMPRESSION: Stable exam when compared to same day head CT. Stable appearance of hemorrhagic infarct in the right basal ganglia and nonhemorrhagic infarct in the right medial temporal lobe in the right cerebellum. Stable mass effect on the right lateral ventricle and 2 mm leftward midline shift. I personally viewed and interpreted these images and I have reviewed and approved this report. CHEST PORTABLE Final Result IMPRESSION: No definite acute process. HEAD WITHOUT CONTRAST Final Result IMPRESSION: Stable head CT when compared to the prior exam from January 20, 2022. Redemonstration of a hemorrhagic infarct in the right basal ganglia, nonhemorrhagic infarct in the right medial temporal lobe and the right cerebellum. Underlying mass effect on the right lateral ventricle with 2 mm midline shift to the left stable. HEAD WITHOUT CONTRAST Final Result IMPRESSION: Continued evolution of recent infarct involving the right basal ganglia and right medial temporal lobe, with worsening edema and mass effect and approximately 2 mm leftward midline shift. 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 There is also minimal acute subarachnoid hemorrhage along the right frontal sulci, new compared to prior. BRAIN WITHOUT CONTRAST Final Result IMPRESSION: Small acute infarct right cerebellum. Additional ovoid region of restricted diffusion in the medial right temporal lobe also concerning for additional region of acute infarction. Acute maturing infarct in the right caudate head and right lentiform nucleus with hemorrhagic transformation. There is associated regional mass effect with effacement of frontal horn of right lateral ventricle-progressed since previous CT from January 19, 2022. No significant leftward midline shift. PLAIN FILM FOR NEURO EXAM Final Result IMPRESSION: No radiopaque foreign body. CHEST PORTABLE Final Result IMPRESSION: Minimal left basilar volume loss; otherwise clear lungs. CEREBRAL PERFUSION ANALYSIS Final Result IMPRESSION: There is an area of core infarct in the right basal ganglia with adjacent penumbra as estimated above. I personally viewed and interpreted these images and I have reviewed and approved this report. STROKE HEAD-STROKE ALERT ONLY Final Result IMPRESSION: 1. Right basal ganglia hypodensity, likely consequence of acute ischemia. 2. Equivocal right thalamic lacunar infarct, age indeterminate. 3. Dense intracranial vessels, secondary to recent intravenous contrast administration. There is otherwise no convincing evidence of acute intracranial hemorrhage. No herniation or hydrocephalus. Findings were discussed with Yovany Manuel MD at 5:30 PM on January 19, 2022. I personally viewed and interpreted these images and I have reviewed and approved this report. RO IMAGING FOR NEURO ENDOVASCULAR (Results Pending) ECHOCARDIOGRAM (Results Pending) CT HEAD WITHOUT CONTRAST (Results Pending) XR CHEST PORTABLE (Results Pending) MEDICATIONS [Held by provider] aspirin 81 mg Oral Daily Or [Held by provider] aspirin 300 mg Rectal Daily atorvastatin 40 mg Oral QHS enoxaparin 30 mg Subcutaneous Daily early evening faMOTIdine 20 mg Oral Q12H metoprolol 25 mg Oral Q12H polyethylene glycol 17 g Oral Q12H Or polyethylene glycol 17 g Per NG tube Q12H senna 8.6 mg Oral QAM Or senna 8.6 mg Per NG tube QAM * DINORAH Comer - 01/23/2022 7:00 PM EST Progress Note CLOTH DYEING RANGE TENDER sent IPR referrals. Preference is [facility]. CLOTH DYEING RANGE TENDER will continue to follow. DINORAH Carranza Chocolate Finisher Operator [id number] * OMAR Martinez - 01/23/2022 2:10 PM EST Focused Assessment for Discharge Planning Patient is here for Stroke Workup. Initial Discharge Planning Anticipated discharge disposition: Inpatient Rehab Facility Transportation Available for Discharge: Ambulance, Family or Friend Anticipated DME: unknown at this time Anticipated Services at Discharge: DME, Physical Therapy, Occupational Therapy, Outpatient follow up, Longterm, Speech Therapy Patient Assessment Completed: Focused Advanced Care Planning Assessment Advanced Care Planning Has the patient completed Advance Directives?: Completed, Available in Medical Record Reviewed for accuracy with patient?: Unable to Verify HCPOA Agent(s): 1. Yue Hunter - Daughter - [phone] 2. Vicki Weir - Daughter - 1st Alternate [phone] Legal Next of Kin: Financial Resources Insurance: Yes Prescription Coverage: Yes Resources Needed: No Resources Provided: Living Environment and Support System Patient was living Independently at home. CM met with daughterYue at bedside. Daughter stated she was told the current recommendation is for IPR. Daughter stated she is in agreement with thatplan and she and her sister prefer [facility]. CM updated SW. CM will continue to follow and assist with discharge planning. Patient Resources Prior to Admission Post-acute Services: yes - IPR Community Resources: no DME: yes - TBD Patient's goal for discharge is [facility]. JAKOB Martinez, ASSISTANT PROFESSOR OF PHYSICS Treasury Representative * Alla Branham PT - 01/23/2022 1:48 PM EST Acute Physical Therapy Treatment Prior to Admission AMPAC score(s): PRIOR LEVEL AM-PAC Mobility Raw Score: 24 Current AM-PAC score(s): CURRENT AM-PAC Mobility Raw Score: 8 Based on the above AM-PAC score(s) and PT clinical judgment, patient is a good candidate for discharge to Inpatient Rehab Facility Supporting Factors (would benefit from skilled therapy services): Patient status is anticipated to be appropriate to tolerate inpatient rehab therapy requirements at time of discharge from acute care Mobility equipment available at home: none used ADL equipment available at home: none Equipment needed for discharge: to be determined Current therapy frequency recommendation in acute: Therapy Frequency: 5 times a week Precautions and Weightbearing Status: Existing Precautions/Restrictions: fall Telemetry Patient Safety Communication Prior to Visit: Nursing Subjective: student RN reports no urine and wanting pt to sit on toilet; pt agreeable Pain: General Pain Documentation (Adult, OB, Peds) Presence of Pain: denies pain/discomfort Objective/Observation: Vitals/Vitals Responses to Treatment: stable on pulse oxymetry and telemetry throughout Respiratory Status O2 Device: room air Cognition Overall Cognitive Status: Impaired Arousal/Alertness: Delayed responses to stimuli Orientation Level: Oriented to person (hospiital) Following Commands: Follows one step commands with repetition, Follows one step commands inconsistently Extremity Assessments: See PT Evaluation flowsheet for Extremity Measurement updates. Skin and Edema: Balance: Sitting Balance Static Sitting-Level of Assistance: Minimum assistance Dynamic Sitting-Level of Assistance: Moderate assistance Standing Balance Static Standing-Level of Assistance: Moderate assistance, 2-person assist Dynamic Standing-Level of Assistance: Moderate assistance, 2-person assist Standing-Balance Support: Gait belt Mobility Assessment/Intervention: Supine to Sit Mobility [place] Level: Supine->Sit: maximum assist (25% patient effort) Bed Features/Set-up: Supine->Sit: Head of bed elevated Sit to Supine Mobility [place] Level: Sit->Supine: maximum assist (25% patient effort) Bed Features/Set-up: Sit->Supine: Flat Transfer Assessment/Intervention: Sit to Stand Transfer [place] Level: Sit->Stand: maximum assist (25% patient effort) Assistive Device: Sit->Stand: gait belt Stand to Sit Transfer [place] Level: Stand->Sit: maximum assist (25% patient effort) Assistive Device: Stand->Sit: gait belt Gait/Functional Mobility Assessment/Intervention: Gait Assessment [place] Level: Gait: moderate assist (50% patient effort) Physical Assist: Gait: 2 person assist Assistive Device: Gait: gait belt Ambulation Distance (Feet): (15, 5) Stairs Assessment/Intervention: Outcome Score(s): CURRENT AM-PAC Basic Mobility Inpatient Short Form Turning over in bed: 3 - A Little Assistance Sitting/standing from chair: 1 - Total Assistance Moving from lying on back to sittin - Total Assistance Moving to and from bed to chair: 1 - Total Assistance Walk in hospital room: 1 - Total Assistance Climbing 3-5 steps with a railin - Total Assistance CURRENT [facility] Mobility Raw Score: 8 CURRENT [facility] Mobility Functional Limitation/Modifier: 86.62% Currently Impaired in Basic Mobility- CM Interventions: 1.Supine to sit with assist as noted above Cues for logroll; crossing midline to rail with UE; sequencing LE 2. EOB VC and tactile for fwd leaning, UE WB to assist 3. Sit<>stand with assist as noted above Cues for hand placement on assist; x 3 trials d/t retro posture and dizziness 4. Gait distance and assist as noted above Cues during gait for hand placement on assist, posture, gaze, corrections to ataxic gait; many standing break sto correct 5. Toilet transfer modAx2 with cue sfor grab bar use 6. Once back in supinie performed reaching and passing task with bilat UE (focus on lt) of objects to cup and PT hand; needing max verbal attention cues for successes Assessment & Plan: Prog with overall gait distance with inc assists d/t ataxic gait, impaired balance, coordination r/t diagnosis Plan for next session: standing balance Acute PT Goals Plan of Care by Alla Branham PT at 01/23/2022 1:48 PM Version 1 of 1 Problem: PT - Mobility Goal: Ambulation Description: Pt will ambulate 50 feet with wheeled walker with minimal assistance to improve ability to navigate home environment. Outcome: Ongoing Problem: PT - Transfers Goal: Supine <-> Sit Description: Pt will perform bed mobility with flat bed & no rail with contact guard assistancein order to improve functional mobility and safety. Outcome: Ongoing Goal: Sit <-> Stand Description: Pt will perform sit to/from stand transfers with contact guard assistance with wheeledwalker in order to improve functional mobility and safety. Outcome: Ongoing Goal: Strength/ROM Description: Pt will perform 3 sets of 10 repetitions of lower bilateral extremity exercises with independence in order to improve strength, maintain ROM, necessary for functional mobility. Outcome: Ongoing PT treatment consisted of Therapeutic Activity and Gait/Stair Training to work and progress towardsabove goal(s). Treating Therapist: Alla Branham PT Additional Details: Co-evaluation/co-treatment performed?: No simultaneous skilled care performed I used facemask in today's patient interaction. Patient location at end of session: bed with head of bed elevated Alarms on at end of session: bed alarm and RN aware Needs in reach. Time In: 1312- 1348- 36 min Upon discontinuation of Acute Care Physical Therapy Services or patient discharge from the hospitalthis note represents the current Physical Therapy Discharge Summary. * MIMA Tejeda - 01/23/2022 11:24 AM EST Ongoing support visit with established patient. Met with patient and family in room. Visit requested by URBAN's aunt, who is also DENISE's aunt. Pateint appears groggy, but interacts well. Daughter and URBAN at bedside coping appropriately. Beginning to wonder re: discharge plans. Suggested that they speak w/ SW. No other needs at this time. Will follow. Rev. MIMA Valencia 01/23/22 1115 Clinical Encounter Type Visited With Patient and family together Visit Type Follow-up Pastoral Time Spent 30 min Referral Family;Phone Spiritual Assessment Spiritual Observation Spirituality helpful Emotional Observation Coping well;Acceptance Interventions Provided Active listening;Supportive presence Facilitated Verbalization of feelings;Experiencing life change;Sharing of life story Explored Expectations Cleaning And Washing Equipment Operator Education Cleaning And Washing Equipment Operator Service Available Yes Outcomes Family Outcomes Reduced distress Plan of Care Continue Visiting PRN * KIM Lawson - 01/23/2022 7:34 AM EST NEUROVASCULAR STROKE SERVICE Daily Progress Note IDENTIFYING INFORMATION Karlie Valle MR# [id number] 01/23/2022 HISTORY OF PRESENT ILLNESS Karlie Valle is a 81 y.o. female with a past history of HTN, HLD, A-fib not on AC (d/t recent GIB. Last AC use was Nov) Ms. Valle was transferred to [facility] after presenting to an OSH ([facility]) with dysarthria, left weakness and facial droop. Per. Ms. Valle's daughter, LKW 01/18. mRS 0. On 01/19, she was found to be very confused along with left weakness by her son-in-law. At the OSH, CTH revealed likely RMCA infarction, CTA RM1 occlusion. She was transferred to [facility], NIHSS 11. She was taken to the OR for thrombectomy and received TICI 3 revascularization. Of note, she had elevated troponin to 3300 at OSH, trending down to 3000 on arrival. INTERVAL HISTORY 01/20: Stroke workup pending, had TICI 3 revascularization overnight 01/21: CT head reviewed, holding aspirin/lovenox, repeat CTH tomorrow 01/22: Increased metoprolol per cardiology recs, repeat CTH from overnight reviewed, repeat CTH today due to increasing NIHSS, TTE pending, Febrile 102, chest xray reviewed, UA P, blood culture pending 01/23: metoprolol decreased due to bradycardia. Afebrile without signs of infection today. DVT ppx resumed, plan for CTH in AM, if stable will initiate ASA PHYSICAL EXAM Gen: awake, alert, NAD HEENT: normocephalic, no scalp lesions or tenderness Neck: trachea midline No JVD CV: +S1S2, RRR, no m/r/g Lungs: LCTA bilaterally with equal chest rise Abd: soft, nontender, nondistended, +BS x4 quadrants Extrem: Warm and well perfused, no edema, 2+ pulses bilaterally Neuro: Dysarthric, follows commands. Oriented to self. CN II - All visual atkinson intact CN II/III - PERRLA CN III/IV/ -EOMI CN V - Light touch to face intact in V1-3 CN VII - left facial droop CN VIII - Hearing intact CN X - Cough present CN XI - muscular movement of shoulders and sternocleidomastoid muscles intact and equal bilaterally CN XII - midline protrusion of tongue MOTOR EXAMINATION: LUE mild drift, LLE with antigravity strength NIHSS 01/23/2022 Provider NIH Stroke Scale NIH Interval (Provider): daily NIH Level of Conciousness (Provider): 0 NIH LOC Questions (Provider): 1 NIH LOC Commands (Provider): 0 NIH Best Gaze (Provider): 0 NIH Visual (Provider): 0 NIH Facial Palsy (Provider): 1 NIH Left Arm Motor (Provider): 2 NIH Right Arm Motor (Provider): 0 NIH Left Leg Motor (Provider): 1 NIH Right Leg Motor (Provider): 0 NIH Limb Ataxia (Provider): 0 NIH Sensory (Provider): 0 NIH Best Language (Provider): 0 NIH Dysarthria (Provider): 0 NIH Extinction and Inattention (Provider): 0 NIH Total Score (Provider): 5 ASSESSMENT AND PLAN Neuro: 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 There is also minimal acute subarachnoid hemorrhage along the right frontal sulci, new compared to prior TTE pending EKG on admission: NSR, QTC 466 LDL 90 HgbA1c 5.6 Stroke Etiology (TOAST criteria): cardioembolic,afib, not on AC due to recent GI bleed ASA 81 held in setting of hemorrhagic transformation Atorvastatin 40 mg daily Ischemic Stroke Core Measures -NIHSS on admission 11 -Patient has been started on Mechanical (SCD's) and Pharmacological (SQ heparin/Lovenox) DVT prophylaxis. -Antiplatelet therapy has been initiated, Aspirin 81 mg daily. -Anticoagulation therapy was indicated for this patient, d/t afib -Patients LDL 90 and HgbA1c 5.6 were checked and the patient will be discharged on Atorvastatin 40 mg daily. -Dysphagia screening ordered, and will be completed prior to patient receiving oral intake. -Stroke education booklet has been ordered and will be provided by the RN that includes both written and verbal education to the patient and family regarding ischemic strokes. We have reviewed the patient's personal modifiable risk factors including: HTN, HLD, afib as well as education on reducing these risk factors -Patient is being assessed for Rehab by PT/OT/Speech and PM&R if indicated. Dysphagia -Speech following -Minced and moist diet -Calorie counts-25 % of meals on 01/21 -IV fluid supplementation CAD, Troponemia on admission -Down trending, peaked at 3,590 -ECG NSR with non-specific ST/T wave abnormalities -Per cardiology consult: -Rate control goal < 80 BPM -Obtain TTE, favor noninvasive/medical mgmt for CAD if pt remains stable. -anticoagulation if/when able from a medical/stroke perspective. -If AC contraindicated due to GI bleed in the past, would consider GARRICK occlusion procedure, outpatient referral to electrophysiology. Fever, Leukocytosis -WBC 12.1 from 11.7 -T max 102 F -Repeat chest xray 01/22-no definitive process w -Repeat UA pending -Blood cultures pending Atrial fibrillation, (POA) -Not on anticoagulation due to prior reported GI bleed, however, after discussion with family. GI bleed reported was only dark stool for 24 hours without need for blood transfusion or changes in Hgb.Pt had been taking AC for only a few days when this occurred and was told to stop by ER phsycian. - Started metoprolol 12.5 mg BID on 01/22 and increased to 50 mg BID per cardiology. Bradycardia and sinus pause overnight on 01/22-01/23, decreased to 25 mg BID -Home regimen :metoprolol 25 mg BID AC plan: initiate Eliquis 1 month post stroke on 02/16 and monitor closely HTN, (POA) -SBP goal < 140 mmHg -PRN labetalol/hydralazine -metoprolol on 01/22 as above HLD, (POA) -LDL 90 -discontinue home simvastatin 40 mg daily -Start atorvastatin 40 mg daily Disposition: Karlie Valle will likely be discharged to [facility] pending completion of stroke workup and medical readiness Janey Sanches APRN-INDUSTRIAL CONTROLS TECHNICIAN 01/23/2022 10:00 AM VITAL SIGNS Temp: [97.9 F (36.6 C)-102 F (38.9 C)] 98.1 F (36.7 C) Pulse (Heart Rate): [66-112] 66 Resp Rate: [20-24] 20 BP: (101-131)/(51-64) 125/61 O2 Sat (%): [91 %-100 %] 100 % Oxygen Therapy: Oxygen Therapy O2 Sat (%): 100 % O2 Device: room air Intake/Output: Intake/Output Summary (Last 24 hours) at 01/23/2022 1000 Last data filed at 01/23/2022 0723 Gross per 24 hour Intake 1565.72 ml Output 575 ml Net 990.72 ml LABS/CULTURES Lab Results Component Value Date WBC 12.17 (H) 01/22/2022 HGB 10.7 (L) 01/22/2022 HCT 35.1 01/22/2022 PLATELET 190 01/23/2022 MCV 100.6 (H) 01/22/2022 Lab Results Component Value Date SODIUM 137 01/22/2022 POTASSIUM 4.1 01/22/2022 CHLORIDE 106 01/22/2022 CO2 24 01/22/2022 BUN 24 01/22/2022 CREATSERUM 0.86 01/22/2022 GLUCOSE 94 01/22/2022 Lab Results Component Value Date CHOLESTEROL 171 01/20/2022 TRIG 134 01/20/2022 HDL 54 01/20/2022 LDLCALC 90 01/20/2022 Lab Results Component Value Date HGBA1C 5.6 01/20/2022 Lab Results Component Value Date ALBUMIN 3.4 (L) 01/20/2022 , No results found for: CPK, TROP IMAGING/DIAGNOSTIC STUDIES CT HEAD WITHOUT CONTRAST Final Result IMPRESSION: Stable exam when compared to same day head CT. Stable appearance of hemorrhagic infarct in the right basal ganglia and nonhemorrhagic infarct in the right medial temporal lobe in the right cerebellum. Stable mass effect on the right lateral ventricle and 2 mm leftward midline shift. I personally viewed and interpreted these images and I have reviewed and approved this report. CHEST PORTABLE Final Result IMPRESSION: No definite acute process. HEAD WITHOUT CONTRAST Final Result IMPRESSION: Stable head CT when compared to the prior exam from January 20, 2022. Redemonstration of a hemorrhagic infarct in the right basal ganglia, nonhemorrhagic infarct in the right medial temporal lobe and the right cerebellum. Underlying mass effect on the right lateral ventricle with 2 mm midline shift to the left stable. HEAD WITHOUT CONTRAST Final Result IMPRESSION: Continued evolution of recent infarct involving the right basal ganglia and right medial temporal lobe, with worsening edema and mass effect and approximately 2 mm leftward midline shift. 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 There is also minimal acute subarachnoid hemorrhage along the right frontal sulci, new compared to prior. BRAIN WITHOUT CONTRAST Final Result IMPRESSION: Small acute infarct right cerebellum. Additional ovoid region of restricted diffusion in the medial right temporal lobe also concerning for additional region of acute infarction. Acute maturing infarct in the right caudate head and right lentiform nucleus with hemorrhagic transformation. There is associated regional mass effect with effacement of frontal horn of right lateral ventricle-progressed since previous CT from January 19, 2022. No significant leftward midline shift. PLAIN FILM FOR NEURO EXAM Final Result IMPRESSION: No radiopaque foreign body. CHEST PORTABLE Final Result IMPRESSION: Minimal left basilar volume loss; otherwise clear lungs. CEREBRAL PERFUSION ANALYSIS Final Result IMPRESSION: There is an area of core infarct in the right basal ganglia with adjacent penumbra as estimated above. I personally viewed and interpreted these images and I have reviewed and approved this report. STROKE HEAD-STROKE ALERT ONLY Final Result IMPRESSION: 1. Right basal ganglia hypodensity, likely consequence of acute ischemia. 2. Equivocal right thalamic lacunar infarct, age indeterminate. 3. Dense intracranial vessels, secondary to recent intravenous contrast administration. There is otherwise no convincing evidence of acute intracranial hemorrhage. No herniation or hydrocephalus. Findings were discussed with Yovany Manuel MD at 5:30 PM on January 19, 2022. I personally viewed and interpreted these images and I have reviewed and approved this report. [facility] IMAGING FOR NEURO ENDOVASCULAR (Results Pending) ECHOCARDIOGRAM (Results Pending) MEDICATIONS [Held by provider] aspirin 81 mg Oral Daily Or [Held by provider] aspirin 300 mg Rectal Daily atorvastatin 40 mg Oral QHS enoxaparin 30 mg Subcutaneous Daily early evening faMOTIdine 20 mg Oral Q12H metoprolol 25 mg Oral Q12H polyethylene glycol 17 g Oral Daily Or polyethylene glycol 17 g Per NG tube Daily senna 8.6 mg Oral QAM Or senna 8.6 mg Per NG tube QAM * Charlette Rondon MD - 01/23/2022 7:13 AM EST I have seen and examined the patient with the team today. I have personally reviewed all the imaging studies and laboratory data and also reviewed the note. I agree with the assessment and plan with the following additions : HCT: R BG CVA CTA: R M1 occusion MRI: R MCA stroke with ICH transformation, punctate R cerebellar CVA ECHO: P Lab Results Component Value Date LDLCALC 90 01/20/2022 Lab Results Component Value Date HGBA1C 5.6 01/20/2022 Neuro Exam: MS: AA OX3. Language Dysarthria CN: Left FD Motor: 5/5 on right and Left HP Assessment: Karlie Valle is a 81 y.o. female with a past history of HTN, HLD, A- fib not on AC (d/t recent GIB. Last AC use was Nov). 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 Mild hemorrhagic transformation. Likely cardioembolic in etiology Plan: ASA held currently due to hemorrhagic transformation Resume tomorrow after CT. AC in 1 month Continue statin HTN: Keep <160. Medications adjusted due to bradycardia Start DVT proph Risk factor modification and stroke education provided. Charlette Rondon MD Rigger Apprentice Department of Neurology * ASHLYN Tilley - 01/22/2022 10:46 AM EST NUTRITION RISK SCREENING NOTE Nutrition Plan of Care: 1. Continue current diet order. 2. Will provide strawberry/butter pecan Ensure Plus High Protein (350 kcal, 20 g PRO each) TID withall meals to increase kcal/protein intake and promote healing. 3. Monitor for significant weight changes. 4. Monitor and encourage po intakes with goal of average po being 50%. 5. registered vascular technologist (rvt) to follow. Karlie Valle is a 81 y.o. female admitted with , left weakness and facial droop. Met with patient today at bedside wearing mask and eye protection. Circuit Court Judge Screening Pt's appetite is fair. Pt with no nausea, vomiting, diarrhea or constipation. Pt with no issues with chewing and/or swallowing. Pt with unsure of any weight changes. Past History Past medical, surgical, family, and social histories have been reviewed and are located elsewhere in the medical record. Height: 152.4 cm (5') Admit wt: 109 lb IBW: 100 lb %IBW: 109% BMI: 21.36 Wt Readings from Last 10 Encounters: 01/19/22 49.5 kg (109 lb 2 oz) Current Diet Orders Procedures DIET MINCED AND MOIST (IDDSI 5) Liquid Thin (IDDSI 0) Standing Status: Standing Number of Occurrences: 1 Order Specific Question: Determine a Liquid Consistency: Answer: Liquid Thin (IDDSI 0) Food Allergies reviewed:NKFA Cultural or Nondenominational Restrictions/Preferences: denies Skin Fan Score: 16 STAND skin bundle initiated Active Wounds: Wound Sheath Site 01/19/22 1852 Right Groin (3) Edema: - Summary Pt is at nutrition risk due to admission diagnosis, chronic conditions, advanced age, decreased skin integrity, and poor po intake. Pt is on STAND skin bundle. Pt was able to answer some questions but spoke to pt's son and daughter in law as well. Pt states that her appetite is okay but according to chart pt is eating an average of 25% of the past 3 meals which is poor. Pt's family states she coug hs a lot while eating and drinking. SUPERVISOR RECEIVING AND PROCESSING came to see patient on 01/20 and put patient on a Minced and Moist Diet. If coughing issues persist will reach out to Nursing via [facility] chat about another consult. Pt denies any constipation but family stated that she has not had a BM since admission and she is currently drinking Miralax. Will provide strawberry/butter pecan Ensure with meals to increase kcal/protein intake and promote healing. Nutrition to follow. If more aggressive nutritional therapy isneeded, please contact unit RD. ASHLYN TilleyR Pager:[phone] * Sabra Islas MD, PhD - 01/20/2022 2:57 PM EST I have seen and examined the patient. I have reviewed the chart for relevant labs, images and medications. I have reviewed the resident/COMMERCIAL SEWING INSTRUCTOR note and agree with the assessment/plan with the following additions. Background:81F R M1 TICI3 revasc no TPA (outside window); h/o afib but off AC since November 11 GIB 24h events:admitted Exam:oriented to self only; needs a lot of prompting to answer questions; seems delirious; follows with R side Pt is a 81F who is critically ill 2/2 acute R M1 CVA with brain compression at risk for neurological decline and loss of airway. Plan includes dysphagia diet; on ASA; check pm HCT for MRI brain findings (petechial hemorrhage); hold lovenox for now. Total critical care time spent is 35 miinutes. * Gina Fam, KATHLEEN - 01/20/2022 10:58 AM EST Acute Care SUPERVISOR RECEIVING AND PROCESSING Speech/Language/Cognitive and Swallow Evaluations Diet recommendation: Recommended Method of Nutrition: PO Recommended Diet Grade: dysphagia- minced and moist (IDDSI 5) Recommended Liquid Consistency: liquid- thin (IDDSI 0) Recommended Medication Administration (as appropriate per MD): Crushed in puree Swallow Strategies: -Single sips -Hold trays if patient is not awake, alert, and able to actively participate in meals LOW THRESHOLD for NPO if change in neuro status or if any further coughing, throat clearing with PO Type of Cues/Supervision: 1:1 supervision Assistance: nurse/aide Other Recommendations: -Recommend thorough and complete oral care at least 3x/day, as this has been shown to reduce the risk for aspiration pneumonia. Best mode of Communication: responds to short questions, responds to yes/no questions, hand gestures Communication Strategies: Use gestures to augment communication, use conflicting yes/ no questions to ensure accy of wants/ needs Discharge Recommendations: Based on the below outcome measures/assessment score(s) and SUPERVISOR RECEIVING AND PROCESSING clinicaljudgment, discharge destination recommendation is: Inpatient Rehab Facility Barriers to discharge home: Inability to communicate basic wants/needs Supporting factors for discharge setting: Impaired cognitive skills limiting safety/insight Acute SUPERVISOR RECEIVING AND PROCESSING Outcomes Tracking Communicate basic wants and needs?: yes Basic wants and needs - Details: inconsistently Demo insight/appreciation of deficits?: no Complete basic problem solving?: no Current therapy frequency recommendation in acute: Speech/Lang/Cog Therapy Frequency: 5 times a week Swallow Therapy Frequency: 3 times a week Clinical Swallow Impression: Karlie Valle presents with presumed functional oropharyngeal swallow function 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 Patient with slightly prolonged oral transit, functional oral clearance, and no evidence of oral pocketing. Patient with single coughing event with crushed meds, though not replicated across evaluation with any further trials. Unable to trial further advanced solids 2/2 patient declining. Recommend diet of minced and moist solids/ thin liquids with use of liquidwashes as needed. SUPERVISOR RECEIVING AND PROCESSING to continue to follow to determine ongoing safety with current diet, readiness for diet advancement, and potential need for instrumental. Clinical Speech/Language/Cognitive Impression: Karlie Valle presents with moderate mixed receptive/ expressive aphasia s/p rt basal ganglia and rtMCA CVA's, s/p thrombectomy. Patient with reduced overall verbal output with short phrases/ low volume mumbling and speech marked with perseverations, anomia, and paraphasias/ neologisms. Patient with reduced awareness of errors and inconsistent ability to repair. Comprehension inconsistent with breakdown at the basic- complex yes/ no questions level, though also with accurate 2-step command following with object use, motoric movements. Decoding impairment at the word level with non-personal information. Presumed confounding cognitive impairment as well, though unable to formally assess 2/2 severity of language impairment. Noted reduced awareness of left sided weakness as well as reduced attention to left (right gaze preference during evaluation). These deficits result in functional limitations in ability to safely perform iADL's at PLOF as well as express basic wants/ needs. Patient would benefit from skilled speech therapy intervention to address deficits given above. Patient Instruction/Education this session: Role of SUPERVISOR RECEIVING AND PROCESSING, aphasia education Plan for next session: Address language/ swallowing goals below Subjective: Patient seen sitting upright in bed, alert and agreeable to SUPERVISOR RECEIVING AND PROCESSING evaluations. Family present in room. Per discussion with RN, patient passed madhav though with reduced alertness this am and awaiting formal swallow eval to place on diet. Pain: General Pain Documentation (Adult, OB, Peds) Presence of Pain: denies pain/discomfort DVPRS (Defense and Veterans Pain Rating Scale) DVPRS: Rest: 0- no pain DVPRS: Activity: 0- no pain Patient History Comments: Per chart review, "Karlie Valle is a 81 y.o. female with a past history of HTN, HLD, A-fib not on AC (d/t recent GIB. Last AC use was Nov) Ms. Valle was transferred to [facility] after presenting to an OSH ([facility]) with dysarthria, left weakness and facial droop. Per. Ms. Valle's daughter, LKW 01/18. mRS 0. Today, Ms. Valle was found to be very confused along with left weakness by her son-in-law. At the OSH, CTH revealed likely RMCA infarction, CTA RM1 occlusion. When Ms. Valle presented to [facility], NIHSS 11. She was taken to the OR for thrombectomy and presents to the [facility]." Prior Level of Function: Previous Level of Function Prior level ADL Overview: Independent with all ADLs Residence: House Lives With: alone IADL History IADLs: independent IADL Comments: Manages meds/ finances independently per son Prior SUPERVISOR RECEIVING AND PROCESSING history: None found per chart review Current Method of Nutrition: Route of Nutrition: NPO Respiratory Status: O2 Device: room air O2 Sat (%): 100 % Resp Rate: 16 Clinical Swallow Evaluation Clinical Swallow Exam limited by cognition: Yes (Impaired command following) Objective Evaluation: Oral Motor: Cranial Nerve Exam CN V (Trigeminal) equal sensation on forehead, cheeks, and jaw CN VII (Facial) unilateral or bilateral weakness of upper or lower face or both (Left facial droop at rest and with retraction) CN IX (Glossopharyngeal) hoarseness (Mild) CN X (Vagus) hoarseness (Mild) CN XI (Accessory) not tested CN XII (Hypoglossal) (Unable to fully assess, patient with limited ROM and slightly decreased articulatory precision) Vocal Quality: hoarse (Mild hoarseness, slightly decreased vocal intensity) GRBAS: A perceptual rating scale for voice parameters Rating scale of 0 to 3 0 = no impairment 1 = minimal to mild impairment 2 = moderate impairment 3 = severe impairment Subjective Voice Evaluation Grade of dysphonia (G): 1 Roughness (R): 0 Breathiness (B): 1 Asthenia (A): 1 Strain (S): 0 Positioning: High Faust's (60-90 degrees) Anticipatory Phase: Intact (SUPERVISOR RECEIVING AND PROCESSING fed, requires min assistance. Patient declining further advanced solids despite encouragement) Foods and Liquids Trialed: Modality: Amount: Ice Teaspoon x2 Thin Teaspoon, Straw, SUPERVISOR RECEIVING AND PROCESSING-fed x8 Dysphagia- pureed (IDDSI 4) Teaspoon x4 Dysphagia- minced and moist (IDDSI 5) Teaspoon x2 Oral Medication (Crushed in puree) Teaspoon x1 Oral Phase Function Comments Oral Mucosa Intact Dentition Natural teeth Labial Closure Functional (Slightly decreased labial seal x1, though able to compensate) Mastication Functional Oral Stasis Present Cough before the swallow Absent Oral Phase Summary: Patient with slightly delayed/ prolonged oral transit with chewables, trace residue on lingual surface with solids, cleared with liquid wash. No oral pocketing noted Pharyngeal Phase Function Comments Perceived Swallow Present Cough Response Yes Throat Clear No Subjective Complaint of Residue (Patient unable to reliably endorse/ deny) Pharyngeal Phase Summary: Patient with coughing x1 following meds crushed in puree, presumed 2/2 ? taste vs incomplete crush of meds. No further clinical signs/ symptoms concerning for laryngeal penetration/ aspiration across evaluation Mountain Swallow Screen: (administered by: RN) Madhav Swallow Screening Screening Exclusion Criteria: none, continue with Mountain Swallow Screening Cognitive Screen: Orientation: able to give name, able to name place Cognitive Screen: Command Following: able to open mouth, able to stick out tongue, able to smile Oral Motor Function : able to move tongue to corners of lips, able to pucker lips and smile 3 oz. Water Swallow Challenge : no deficit-passed Mountain Swallow Screening Result: passed=cleared for oral intake Voice and Swallow Outcomes: Functional Oral Intake Scale: Level 5 - Total oral intake of multiple consistencies requiring special prep Speech/Language/Cognitive Evaluation EXPRESSIVE LANGUAGE: Impaired Task: Imitates Gestures Impaired Automatic Speech Impaired Phrase Completion Impaired Confrontation Naming Impaired Answering 'wh' Questions Impaired Repetition Impaired Verbalize Basic Wants and Needs Impaired Functional Participation in Conversation Impaired Expressive Language Characteristics: Phonemic Paraphasia, Semantic Paraphasia, Tangential and Perseveration RECEPTIVE LANGUAGE: Impaired Task: Identify Functional Objects Impaired Follow 1-Step Commands Impaired Follow 2+ Step Commands Impaired Answers Basic Y/N Questions Impaired Answers Complex Y/N Questions Impaired Conversational Comprehension Impaired READING: Impaired (Able to decode single letters, name only with breakdown at the word level) Task: Letter Identification Functional Single Words Aloud Impaired Single Word Comprehension Impaired Sentence Comprehension Unable to assess Functional Environmental Reading Unable to assess WRITING: Unable to assess SOCIAL INTERACTION/PRAGMATICS: Functional COGNITION: Impaired Task: Arousal/Alertness Delayed responses Orientation Level Oriented to person Safety Judgment Decreased awareness of need for safety Awareness of Errors Assistance required to correct errors made Memory Unable to assess Problem Solving Unable to assess Cognition Comments Unable to formally assess 2/2 severity of language impairments impacting MOTOR SPEECH TASKS: Functional (Impacted by mumbling, low volume at times) Task: Speech Intelligibility Functional Saliva Management Intact VOCAL PARAMETERS: Impaired Task: Breath Support Impaired Coordination of Respiration and Phonation Coordination of respiration and phonation: Functional Duration of Phonation Impaired Pitch Control Intact Loudness Impaired Vocal Quality hoarse (Mild hoarseness, slightly decreased vocal intensity) Subjective Voice Evaluation Grade of dysphonia (G): 1 Roughness (R): 0 Breathiness (B): 1 Asthenia (A): 1 Strain (S): 0 SUPERVISOR RECEIVING AND PROCESSING Outcomes: SUPERVISOR RECEIVING AND PROCESSING Outcomes / Standardized Measures Score The Orientation Log (O-Log) & The Cognitive Log (Cog-Log) The Orientation Log (O-Log) is designed to be a quick quantitative measure of orientational status for use at bedside with rehabilitation inpatients. Place, time, and situational (Etiology/Event + Pathology/Deficits) domains are assessed. Patient responses are scored according to the following criteria: 3 = correct spontaneously or upon first free recall attempt; 2 = correct upon logical cueing (e.g., "That was yesterday, so today must be "); 1 = correct upon multiple choice or phonemic cuing; and 0 = incorrect despite cueing, inappropriate response, or unable to respond. Patient scored NA/30this date. Orientation [place]: incorrect despite cueing, inappropriate response or unable to respond. (via yes/ no) Kind of Place: incorrect despite cueing, inappropriate response or unable to respond. Name of Hospital: incorrect despite cueing, inappropriate response or unable to respond. Month: incorrect despite cueing, inappropriate response or unable to respond. Etiology / Event: incorrect despite cueing, inappropriate response or unable to respond. Pathology Deficits: incorrect despite cueing, inappropriate response or unable to respond. (correctresponse to yes/ no) Western Aphasia Battery -Bedside Revised Form: an individually administered assessment for adults with acquired neurological disorders. Assesses the linguistic skills most frequently affected by aphasia, in addition to mcdonald non- linguistic skills and provides differential diagnosis information. Spontaneous Speech: Content Score: 5 Spontaneous Speech: Fluency Score : 3 Auditory Verbal Comprehension Yes/No Questions Score: 5 Sequential Commands Score: 5 Repetition Score: 6 Object Naming Score: 5 Reading Score: 1 Apraxia Score: 0 Bedside Aphasia Score (Calculated): 48.33 Bedside Aphasia Classification: Broca's (However, significant impairment in comprehension noted with yes/ no subtest) Acute SUPERVISOR RECEIVING AND PROCESSING Goals Plan of Care by Gina Fam, SUPERVISOR RECEIVING AND PROCESSING at 01/20/2022 10:58 AM Version 1 of 1 Problem: SUPERVISOR RECEIVING AND PROCESSING - Dysphagia Goal: PO Trial 2 Description: Patient will accept trials of current diet consisting of minced and moist solids/ thinliquids with no signs/symptoms of laryngeal penetration/aspiration and no respiratory complicationsto determine ongoing safety with current diet vs need for instrumental swallow assessment, over the course of 1 session. Outcome: Ongoing Goal: PO Trial 3 Description: Patient will swallow trials of advanced solids x5-10 demonstrating timely/effective mastication, bolus formation and oral bolus transit without overt clinical signs/symptoms of aspiration, across 1-2 sessions to determine readiness for diet advancement. Outcome: Ongoing Problem: SUPERVISOR RECEIVING AND PROCESSING - Language Goal: Command Following Description: Patient will complete simple 1-2 step commands (minimum of x10) to 80% success with max cues as needed in order to improve direction following for functional gains in ability to participate more independently in care. Outcome: Ongoing Goal: Yes/No Response Description: Patient will answer basic/ personal/ environmental y/n questions (minimum of x10) related to current situation/environment, to 100% success with min cues, after 2-3 sessions in order to improve ability to answer medical questions/questions related to care. Outcome: Ongoing Goal: Names Basic Objects/Pictures Description: Patient will name basic objects/pictures with 80% accuracy, across 1-2 session(s) given min assist to improve word-finding and functional communication. Outcome: Ongoing Goal: Phrase/Sentence Completion Description: Patient will complete functional sentences/phrases related to wants/needs in this setting, to 100% success with max cues, across 2-3 sessions in order to improve ability to communicate functionally in current environment. Outcome: Ongoing Speech Language Pathologist: KATHLEEN Dominguez Time In: 1058 Time Out: 1135 Total Visit Time: 37 minutes Total Treatment Time (skilled, billable minutes): 37 minutes I used facemask, protective eye shield, and gloves in today's patient interaction. Patient location at end of session: bed with head of bed elevated Needs in reach. Upon discontinuation of Acute Care Speech Therapy Services or patient discharge from the hospital this note represents the current Speech Therapy Discharge Summary * Aura Flores OT - 01/20/2022 10:22 AM EST Acute Occupational Therapy Evaluation Prior to Admission AM-PAC Score: Current AM-PAC score(s): CURRENT AM-PAC Activity Raw Score: 12 Based on the above AM-PAC score(s) and OT clinical judgment, discharge destination recommendation is: Inpatient Rehab Facility Supporting Factors (would benefit from skilled therapy services): Patient status is anticipated to be appropriate to tolerate inpatient rehab therapy requirements at time of discharge from acute care, Impaired self-care abilities, Impaired balance, Impaired cognitive status Mobility equipment available at home: none used ADL equipment available at home: none Equipment recommendations for discharge: to be determined Current therapy frequency recommendation(s) in acute: 5 times a week Precautions and Weightbearing Status: OT Existing Precautions/Restrictions: fall Telemetry Patient Safety Communication Prior to Visit: Nursing Subjective: Pt agreeable to therapy session Pain: General Pain Documentation (Adult, OB, Peds) Presence of Pain: denies pain/discomfort DVPRS (Defense and Veterans Pain Rating Scale) DVPRS: Rest: 0- no pain DVPRS: Activity: 0- no pain Home Setting Residence: House Lives With: alone First floor setup: bedroom, walk-in shower Number of stairs to enter home: 0 Number of stairs in home: flight to basement Mobility Equipment Available: none used ADL Equipment Available: none Previous Level of Function Prior level ADL Overview: Independent with all ADLs Dominant Hand: Right Bed Mobility/Transfers: independent Ambulation Skills: independent Assistive Device: none used Level of Ambulation: community Objective/Observation: Vitals/Vitals Responses to Treatment: WFL Respiratory Status O2 Device: room air Vision Screen Currently wearing corrective lenses: Yes Subjective Patient Complaints: Blurry vision Ocular Fixation: Unsteady Ocular (Smooth) Pursuits - Descripton: Jerky, Full range of motion Speech Speech: word-finding difficulties (aphasic (appears globally)) Hearing Hearing: hearing aids Cognition Arousal/Alertness: Delayed responses to stimuli Orientation Level: Oriented to person, Oriented to place, Oriented to time Following Commands: Follows commands greater than 75% of the time (increased command follow with gestures and mimic movements) Safety Judgment: Decreased awareness of need for assistance, Decreased awareness of need for safety Awareness of Errors: Assistance required to identify errors made, Assistance required to correct errors made Deficits: Decreased awareness of deficits Attention Span: Appears intact ADLs: ADL Anticipated Performance (ADLs not directly observed this session): Eating, Grooming, UE Dressing, Bathing, LE Dressing, Toileting Eating Assistance: Moderate Grooming Assistance: Moderate Bathing Assistance: Moderate UE Dressing Assistance: Moderate LE Dressing Assistance: Maximal Toilet Assistance: Maximal Extremity Assessments: RUE Assessment RUE Assessment: Within Functional Limits LUE Assessment LUE Assessment: AROM Impaired, Strength Impaired Left UE Assessment Details: left grossly 2/5, Balance: Sitting Balance Static Sitting-Level of Assistance: Minimum assistance Dynamic Sitting-Level of Assistance: Minimum assistance Skilled Rationale: Verbal cues Standing Balance Static Standing-Level of Assistance: Minimum assistance Dynamic Standing-Level of Assistance: Minimum assistance Standing-Balance Support: Gait belt Neuro: Sensation Overall Sensation: Impaired Sensation Comments: decreased sensation along left side Fine Motor Coordination Left Hand, Finger To Nose: severe impairment Right Hand, Finger To Nose: normal performance Left Hand Thumb/Finger Opposition Skills: severe impairment Right Hand Thumb/Finger Opposition Skills: normal performance Mobility Assessment: Supine to Sit Mobility [place] Level: Supine->Sit: minimum assist (75% patient effort) Bed Features/Set-up: Supine->Sit: Head of bed elevated, Use of bed rail Skilled Rationale: Positioning, Sequencing, Hand placement Transfer Assessment: Sit to Stand Transfer [place] Level: Sit->Stand: minimum assist (75% patient effort) Assistive Device: Sit->Stand: gait belt Skilled Rationale: Positioning, Sequencing, Hand placement Bed-Chair Transfer [place] Level: Bed<->Chair: moderate assist (50% patient effort) Assistive Device: Bed<->Chair: gait belt Skilled Rationale: Positioning, Sequencing, Hand placement Outcome Score(s): Fugl Angela Score: unable to accurate grade due to aphasia CURRENT [facility] Daily Activity Inpatient Short Form Putting on/Taking Off Lower Body Clothin - A Lot of Assistance Bathin - A Lot of Assistance Toiletin - A Lot of Assistance Putting on/Taking Off Upper Body Clothin - A Lot of Assistance Groomin - A Lot of Assistance Eatin - A Lot of Assistance CURRENT [facility] Activity Raw Score: 12 CURRENT -[facility] Activity Functional Limitation/Modifier: 66.57% Currently Impaired in Daily Activity- CL Assessment & Plan: Patient was admitted for Ms. Valle was [facility] after presenting to an OSH ([facility]) with dysarthria, left weakness and facial droop CTH revealed likely RMCA infarction, CTA RM1 occlusion and now s/p thrombectomy and seen for therapy evaluation related to impaired balance, aphasia, and weakness along left side impacting safety andoccupational performance. Exam findings include impairments in: balance, ROM, strength, transfers, motor function. These impairments contribute to occupational performance limitations including bathing, dressing, grooming. The following factors impact the plan of care: none Patient will benefit from skilled occupational therapy to address these impairments, occupational performance limitations, and participation restrictions. Patient's rehab potential is: good, to achieve stated therapy goals. Planned Therapy Interventions (OT Eval): ADL retraining, balance training, ROM (range of motion), transfer training, fine motor coordination training Patient Instruction/Education this session: Patient Instruction: Role of OT and plan of care Plan for next session: sitting balance, EOB ADLs, grooming ADL, strengthening LUE Acute OT Goals Plan of Care by Aura Flores OT at 01/20/2022 10:15 AM Version 1 of 1 Problem: OT - ADLs Goal: Grooming Description: Pt will complete grooming in standing with contact guard assistance for improved ability to safely complete ADLs. Outcome: Ongoing Problem: OT - Cognition Goal: Cognition - Command following Description: Pt will follow 100 % of 1 step commands during ADL task for improved safety and success at discharge destination. Outcome: Ongoing Problem: OT - Balance Goal: Balance - Seated Description: Pt will perform 10 minutes of ADL routine in sitting with supervision and balance level of supervision to promote safety during self-care activities. Outcome: Ongoing Problem: OT - Strength/ROM Goal: Neuro Re-education Description: Pt will participate in neuro re-ed of (RUE/LUE) to improve strength by 1 muscle grade in each group, for improved use in ADLs. Outcome: Ongoing Evaluating Therapist: Aura Flores OT Additional Details: Co-evaluation/co-treatment performed?: Yes, simultaneous billable skilled care This co-evaluation session performed between OT and PT was beneficial, necessary and provided distinct services in establishing this person's individual plan of care. Medical complexity with functional deficits necessitated two skilled therapy disciplines working concurrently to determine each discipline's goals. This co-treatment was medically necessary due to patient's: Cognitive issues and Postural control I used facemask, protective eye shield, and gloves in today's patient interaction. OT Evaluation Complexity Occupational Profile and Client History: Moderate - expanded history Assessment of Occupational Performance: Moderate (3-5 performance deficits) Clinical Decision/Performance Deficits: Moderate (detailed assessments w/several treatment options) Time In: 0832 Time Out: 0856 Total Visit Time: 24 minutes Total Treatment Time (skilled, billable minutes): 24 minutes Patient location at end of session: chair Alarms on at end of session: RN aware Needs in reach. Upon discontinuation of Acute Care Occupational Therapy Services or patient discharge from the hospital this note represents the current Occupational Therapy Discharge Summary. * Jean Carmelo - 01/20/2022 8:32 AM EST Acute Physical Therapy Evaluation Prior to Admission [facility] score(s): PRIOR LEVEL AM-PAC Mobility Raw Score: 24 Current AM-PAC score(s): CURRENT AM-PAC Mobility Raw Score: 12 Based on the above AM-PAC score(s) and PT clinical judgment, patient is a good candidate for discharge to Inpatient Rehab Facility Supporting Factors (would benefit from skilled therapy services): Patient status is anticipated to be appropriate to tolerate inpatient rehab therapy requirements at time of discharge from acute care Mobility equipment available at home: none used ADL equipment available at home: none Equipment needed for discharge: to be determined Current therapy frequency recommendation in acute: Therapy Frequency: 5 times a week Precautions and Weightbearing Status: Telemetry Patient Safety Communication Prior to Visit: Nursing Subjective: Pt agreeable to therapy Pain: General Pain Documentation (Adult, OB, Peds) Presence of Pain: denies pain/discomfort Home Setting Residence: House Lives With: alone First floor setup: bedroom, walk-in shower Number of stairs to enter home: 0 Number of stairs in home: flight to basement Mobility Equipment Available: none used ADL Equipment Available: none Previous Level of Function Prior level ADL Overview: Independent with all ADLs Dominant Hand: Right Bed Mobility/Transfers: independent Ambulation Skills: independent Assistive Device: none used Level of Ambulation: community Objective/Observation: Vitals/Vitals Responses to Treatment: WNL Respiratory Status O2 Device: room air Cognition Overall Cognitive Status: Impaired Arousal/Alertness: Delayed responses to stimuli Orientation Level: Oriented X4 Following Commands: Follows commands greater than 75% of the time Safety Judgment: Decreased awareness of need for assistance, Decreased awareness of need for safety Awareness of Errors: Assistance required to identify errors made, Assistance required to correct errors made Deficits: Decreased awareness of deficits Attention Span: Appears intact Memory: Appears intact Problem Solving: Assistance required to identify errors made, Assistance required to generate solutions Vision Screen Currently wearing corrective lenses: Yes Speech Speech: no gross deficits noted Hearing Hearing: hearing aids Extremity Assessments: RUE Assessment RUE Assessment: Within Functional Limits LUE Assessment LUE Assessment: PROM WFL, Strength Impaired Left UE Assessment Details: all 2/5 RLE Assessment RLE Assessment: PROM WFL, Strength Impaired Right LE Assessment Details: knee ext and dorsiflexion 4/5, all else 3/5 LLE Assessment LLE Assessment: PROM WFL, Strength Impaired Left LE Assessment Details: hip flx 2+/5, all else 3/5 Sensation Overall Sensation: Impaired Light Touch: Diminished Sensation Comments: incorrect laterality with 50% of responses during light touch testing of BLEs, possibly due to aphasia Mobility Assessment: Supine to Sit Mobility [place] Level: Supine->Sit: minimum assist (75% patient effort) Bed Features/Set-up: Supine->Sit: Head of bed elevated Skilled Rationale: Positioning, Sequencing, Hand placement, Verbal cues, Cues for increased safety Balance: Sitting Balance Static Sitting-Level of Assistance: Minimum assistance Dynamic Sitting-Level of Assistance: Minimum assistance Skilled Rationale: Verbal cues Standing Balance Static Standing-Level of Assistance: Minimum assistance Dynamic Standing-Level of Assistance: Minimum assistance Standing-Balance Support: Gait belt Transfer Assessment: Sit to Stand Transfer [place] Level: Sit->Stand: minimum assist (75% patient effort) Assistive Device: Sit->Stand: gait belt Skilled Rationale: Positioning, Sequencing, Hand placement, Verbal cues Bed-Chair Transfer [place] Level: Bed<->Chair: moderate assist (50% patient effort) (modA x1) Assistive Device: Bed<->Chair: gait belt Skilled Rationale: Positioning, Sequencing, Hand placement, Verbal cues, Technique of activity, Cues for increased safety Outcome Score(s): CURRENT [facility] Basic Mobility Inpatient Short Form Turning over in bed: 3 - A Little Assistance Sitting/standing from chair: 2 - A Lot of Assistance Moving from lying on back to sittin - A Little Assistance Moving to and from bed to chair: 2 - A Lot of Assistance Walk in hospital room: 1 - Total Assistance Climbing 3-5 steps with a railin - Total Assistance CURRENT [facility] Mobility Raw Score: 12 CURRENT [facility] Mobility Functional Limitation/Modifier: 68.66% Currently Impaired in Basic Mobility- CL Interventions: Assessment & Plan: Patient was admitted for R basal ganglia stroke and seen for therapy evaluation related to balance,strength, and coordination deficits. Exam findings include impairments in: Strength, Balance, Coordination, Sensation, Transfers, Gait/Locomotion. These impairments contribute to functional limitations including Decreased ambulation distance/endurance, Increased fall risk, Difficulty with bed mobility, Difficulty with transfers, Decreased functional mobility. Current clinical presentation is Unstable - unstable and unpredictable characteristics - safety risk (High). Patient history factors impacting Plan Of Care include PMH, sensation and coordination deficits. Patient will benefit from skilled physical therapy to address these impairments, functional limitations, and participation restrictions and has good rehab potential to achieve therapy goals. Planned Therapy Interventions: balance training, functional activity tolerance, gait training Plan for next session: progress overall activity tolerance, balance, and coordination Acute PT Goals Plan of Care by Aura Tavarez PT at 01/20/2022 12:43 PM Version 1 of 1 Problem: PT - Mobility Goal: Ambulation Description: Pt will ambulate 50 feet with wheeled walker with minimal assistance to improve ability to navigate home environment. Outcome: Ongoing Problem: PT - Transfers Goal: Supine <-> Sit Description: Pt will perform bed mobility with flat bed & no rail with contact guard assistancein order to improve functional mobility and safety. Outcome: Ongoing Goal: Sit <-> Stand Description: Pt will perform sit to/from stand transfers with contact guard assistance with wheeledwalker in order to improve functional mobility and safety. Outcome: Ongoing Goal: Strength/ROM Description: Pt will perform 3 sets of 10 repetitions of lower bilateral extremity exercises with independence in order to improve strength, maintain ROM, necessary for functional mobility. Outcome: Ongoing Evaluating Therapist: Jean Rhodes Additional Details: Co-evaluation/co-treatment performed?: Yes, simultaneous billable skilled care This co-evaluation session performed between PT and OT was beneficial, necessary and provided distinct services in establishing this person's individual plan of care. Medical complexity with functional deficits necessitated two skilled therapy disciplines working concurrently to determine each discipline's goals. This co-treatment was medically necessary due to patient's: Cognitive issues and Coordination issues I was assisted by LIBIA Chavarria for today's session. and I used facemask, protective eye shield, and gloves in today's patient interaction. Evaluation Complexity Components History: High (3 personal factors and/or comorbidities) Body Systems Review: High (Addressing a total of 4 or more elements) Clinical Presentation: Unstable - unstable and unpredictable characteristics - safety risk (High) Clinical Decision Making: High Time In: 0832 Time Out: 0857 Total Visit Time: 25 minutes Total Treatment Time (skilled, billable minutes): 25 minutes Patient location at end of session: chair and RN aware Alarms on at end of session: RN aware Needs in reach. Upon discontinuation of Acute Care Physical Therapy Services or patient discharge from the hospitalthis note represents the current Physical Therapy Discharge Summary. Associated attestation - Aura Tavarez PT - 01/20/2022 2:57 PM EST This note was reviewed and edited as needed to better reflect the patient's clinical status and thetreatment plan Aura Tavarez PT, DPT License #: [id number] Pager #: [phone] * Janey Sanches APRN-INDUSTRIAL CONTROLS TECHNICIAN - 01/20/2022 8:12 AM EST NEUROVASCULAR STROKE SERVICE Daily Progress Note IDENTIFYING INFORMATION Karlie Valle MR# [id number] 01/20/2022 HISTORY OF PRESENT ILLNESS Karlie Valle is a 81 y.o. female with a past history of HTN, HLD, A-fib not on AC (d/t recent GIB. Last AC use was Nov) Ms. Valle was transferred to [facility] after presenting to an OSH ([facility]) with dysarthria, left weakness and facial droop. Per. Ms. Valle's daughter, LKW 01/18. mRS 0. On 01/19, she was found to be very confused along with left weakness by her son-in-law. At the OSH, CTH revealed likely RMCA infarction, CTA RM1 occlusion. She was transferred to [facility], NIHSS 11. She was taken to the OR for thrombectomy and received TICI 3 revascularization. Of note, she had elevated troponin to 3300 at OSH, trending down to 3000 on arrival. INTERVAL HISTORY 01/20: Stroke workup pending, had TICI 3 revascularization overnight PHYSICAL EXAM Gen: awake, alert, NAD HEENT: normocephalic, no scalp lesions or tenderness Neck: trachea midline No JVD CV: +S1S2, RRR, no m/r/g Lungs: LCTA bilaterally with equal chest rise Abd: soft, nontender, nondistended, +BS x4 quadrants Extrem: Warm and well perfused, no edema, 2+ pulses bilaterally Neuro: Expressive and receptive aphasia, dysarthria CN II - All visual atkinson intact CN II/III - PERRLA CN III/IV/ - R gaze preference CN V - Light touch to face intact in V1-3 CN VII - left facial droop CN VIII - Hearing intact CN X - Cough present CN XI - muscular movement of shoulders and sternocleidomastoid muscles intact and equal bilaterally CN XII - midline protrusion of tongue MOTOR EXAMINATION: LUE and LLE drift NIHSS 01/20/2022 Provider NIH Stroke Scale NIH Interval (Provider): admission NIH Level of Conciousness (Provider): 0 NIH LOC Questions (Provider): 1 NIH LOC Commands (Provider): 1 NIH Best Gaze (Provider): 0 NIH Visual (Provider): 0 NIH Facial Palsy (Provider): 1 NIH Left Arm Motor (Provider): 1 NIH Right Arm Motor (Provider): 0 NIH Left Leg Motor (Provider): 2 NIH Right Leg Motor (Provider): 0 NIH Limb Ataxia (Provider): 0 NIH Sensory (Provider): 0 NIH Best Language (Provider): 2 NIH Dysarthria (Provider): 2 NIH Extinction and Inattention (Provider): 1 NIH Total Score (Provider): 11 ASSESSMENT AND PLAN Neuro: 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 s/p TICI 3 revascularization CTH: R basal gangia stroke CTA brain/neck: R M1 occlusion CTP: R MCA mismatch MRI brain R MCA stroke with hemorrhagic transformation, punctate R cerebellar stroke TTE pending EKG on admission: NSR, QTC 466 LDL 90 HgbA1c 5.6 Stroke Etiology (TOAST criteria): cardioembolic,afib, not on AC due to recent GI bleed ASA 81 mg Atorvastatin 40 mg to be initiated for goal LDL < 70 Goal BP per Neurosurgery s/p thrombectomy Ischemic Stroke Core Measures -NIHSS on admission 11 -Patient has been started on Mechanical (SCD's) and Pharmacological (SQ heparin/Lovenox) DVT prophylaxis. -Antiplatelet therapy has been initiated, Aspirin 81 mg daily. -Anticoagulation therapy was indicated for this patient, d/t afib -Patients LDL 90 and HgbA1c 5.6 were checked and the patient will be discharged on Atorvastatin 40 mg daily. -Dysphagia screening ordered, and will be completed prior to patient receiving oral intake. -Stroke education booklet has been ordered and will be provided by the RN that includes both written and verbal education to the patient and family regarding ischemic strokes. We have reviewed the patient's personal modifiable risk factors including: HTN, HLD, afib as well as education on reducing these risk factors -Patient is being assessed for Rehab by PT/OT/Speech and PM&R if indicated. Disposition: Karlie Valle will likely be discharged to location [facility] KIM Lawson 01/20/2022 8:12 AM VITAL SIGNS Temp: [97.5 F (36.4 C)-98.2 F (36.8 C)] 98.1 F (36.7 C) Pulse (Heart Rate): [70-92] 80 Resp Rate: [14-31] 18 BP: (121-177)/(58-76) 159/69 O2 Sat (%): [95 %-99 %] 96 % Weight: [49.5 kg (109 lb 2 oz)] 49.5 kg (109 lb 2 oz) Oxygen Therapy: Oxygen Therapy O2 Sat (%): 96 % O2 Device: room air Flow (L/min): 2 Intake/Output: Intake/Output Summary (Last 24 hours) at 01/20/2022 0812 Last data filed at 01/20/2022 0030 Gross per 24 hour Intake 100 ml Output -- Net 100 ml LABS/CULTURES Lab Results Component Value Date WBC 8.70 01/20/2022 HGB 11.5 01/20/2022 HCT 35.4 01/20/2022 PLATELET 245 01/20/2022 MCV 94.7 01/20/2022 Lab Results Component Value Date SODIUM 142 01/20/2022 POTASSIUM 4.5 01/20/2022 CHLORIDE 110 (H) 01/20/2022 CO2 22 01/20/2022 BUN 15 01/20/2022 CREATSERUM 0.79 01/20/2022 GLUCOSE 105 (H) 01/20/2022 Lab Results Component Value Date CHOLESTEROL 171 01/20/2022 TRIG 134 01/20/2022 HDL 54 01/20/2022 LDLCALC 90 01/20/2022 Lab Results Component Value Date HGBA1C 5.6 01/20/2022 Lab Results Component Value Date ALBUMIN 3.4 (L) 01/20/2022 , No results found for: CPK, TROP IMAGING/DIAGNOSTIC STUDIES CT CEREBRAL PERFUSION ANALYSIS Final Result IMPRESSION: There is an area of core infarct in the right basal ganglia with adjacent penumbra as estimated above. I personally viewed and interpreted these images and I have reviewed and approved this report. STROKE HEAD-STROKE ALERT ONLY Final Result IMPRESSION: 1. Right basal ganglia hypodensity, likely consequence of acute ischemia. 2. Equivocal right thalamic lacunar infarct, age indeterminate. 3. Dense intracranial vessels, secondary to recent intravenous contrast administration. There is otherwise no convincing evidence of acute intracranial hemorrhage. No herniation or hydrocephalus. Findings were discussed with Yovany Manuel MD at 5:30 PM on January 19, 2022. I personally viewed and interpreted these images and I have reviewed and approved this report. BRAIN WITHOUT CONTRAST (Results Pending) FLUORO IMAGING FOR NEURO ENDOVASCULAR (Results Pending) ECHOCARDIOGRAM (Results Pending) XR CHEST PORTABLE (Results Pending) MEDICATIONS aspirin 81 mg Oral Daily Or aspirin 300 mg Rectal Daily [Held by provider] enoxaparin 30 mg Subcutaneous Daily early evening insulin regular Subcutaneous Q6H polyethylene glycol 17 g Oral Daily Or polyethylene glycol 17 g Per NG tube Daily senna 8.6 mg Oral QAM Or senna 8.6 mg Per NG tube QAM * KIM Campbell - 01/20/2022 7:42 AM EST [facility] VISIT DEMOGRAPHICS Patient: Karlie Valle Code status: Prior Admission date: 01/19/2022 5:16 PM Hospital days: LOS: 1 day HISTORY OF PRESENT ILLNESS Karlie Valle is a 81 y.o. female with a past history of HTN, HLD, A-fib not on AC (d/t recent GIB. Last AC use was Nov) Ms. Valle was transferred to [facility] after presenting to an OSH ([facility]) with dysarthria, left weakness and facial droop. Per. Ms. Valle's daughter, LKW 01/18. mRS 0. Today, Ms. Valle was found to be very confused along with left weakness by her son-in-law. At the OSH, CTH revealed likely RMCA infarction, CTA RM1 occlusion. When Ms. Valle presented to [facility], NIHSS 11. She was taken to the OR for thrombectomy and presents to the [facility]. INTERVAL HISTORY SINCE ADMISSION 01/19/2022: Admit to [facility] 01/20: PHYSICAL EXAM GENERAL: Alert, no acute distress, sitting up in chair HEENT: normocephalic CARDIO: +S1S2, RRR, Tele: RSR, no edema PULM: LCTA throughout maria c, diminished maria c LL. Respirations are easy, unlabored. Equal chest rise. ABDOMINAL: soft, rounded, nontender, nondistended, active bowel sounds : razo draining clear, yellow, urine NEURO: Alert. Attempts to answer other orientation questions, but has partial mixed expressive & receptive aphasia. Able to follow simple commands. EOMI, no gaze preference. Left facial droop. RUE and RLE- no drift. LUE- drift noted. Strong bilat microwave technician. Able to wiggle toes, and attempts to liftLLE off bed, but unable to get it off bed. Sensation intact bilat. ASSESSMENT AND PLAN Neuro: (01/19/2022) 1 Day Post-Op s/p Thrombectomy w/ TICI3 RMCA CVA d/t RM1 Occlusion, with petechial hemorrhage Rt Thalamic Lacunar Infarct (age indeterminant) Multiple infarcts in different vascular distributions Delirium - Initial CVA Management: - 01/19 Stroke alert performed; summary of imaging findings: CTH: Rt BG hypodensity. CTA RM1 Occlusion, CTP: mismatch ratio. - 01/19: No tPA given- outside of window - 01/19 NSGY consulted for thrombectomy, performed and obtained TICI 3 revascularization - Ongoing CVA management: - Neurochecks Q1H - Goal SBP <160 (see cards) - Imaging: - 01/19 CT H: Rt BG hypodensity. Age indeterminate Rt thalamic lacunar infarct. - 01/20 MRI B: petichial hemorrhage, several scattered tiny infarct - 01/20: follow up CT this afternoon to follow up on petich hem. -01/19 Antiplatelet therapy: ASA 81 mg every day - Daily NIHSS: NIH Stroke Scale: NIH Level of Conciousness (Provider): 0 NIH LOC Questions (Provider): 1 NIH LOC Commands (Provider): 0 NIH Best Gaze (Provider): 0 NIH Visual (Provider): 0 NIH Facial Palsy (Provider): 2 NIH Left Arm Motor (Provider): 1 NIH Right Arm Motor (Provider): 0 NIH Left Leg Motor (Provider): 2 NIH Right Leg Motor (Provider): 0 NIH Limb Ataxia (Provider): 0 NIH Sensory (Provider): 0 NIH Best Language (Provider): 1 NIH Dysarthria (Provider): 1 NIH Extinction and Inattention (Provider): 0 NIH Total Score (Provider): 8 - Cytotoxic Cerebral Edema Management: - Goal Na 135-145; monitor Na Q AM - Stroke etiology presumed to be cardioembolic based on the TOAST Criteria. Stroke risk factors include atrial fib., hypercholesterolemia and hypertension. - Complete TTE (see cards) - Obtain LDL level and statin therapy if indicated (see cards) - Obtain HA1C level (see endo) - Initiate antiplatelet therapy within 48H of admission (see cards) - Initiate VTE prophylaxis immediately if no tPA given or 24H post-thrombectomy if performed (see heme) - Develop therapeutic anticoagulation plan, if indicated based on CVA etiology (see cards) - Consider urine drug screen on admission if no stroke risk factors - 01/19: Negative - Consider hypercoagulability panel 24H-post tPA if no stroke risk factors - Pain/Sedation management - Tylenol 650mg Q4H PRN Psych: No Current Issues Pulm: No Current Issues - Goal SpO2 >92%; wean FiO2 as tolerated O2 Sat (%): 96 % (01/20 700) O2 Device: room air (01/20 700) Flow (L/min): 2 (01/19 2015) - [id number], encourage pulmonary toileting - 01/19 CXR: P Cards: Elevated Troponin HTN HLD A-fib not on AC Temp: [97.5 F (36.4 C)-98.2 F (36.8 C)] 98.1 F (36.7 C) Pulse (Heart Rate): [70-92] 80 Resp Rate: [14-31] 18 BP: (121-177)/(58-76) 159/69 O2 Sat (%): [95 %-99 %] 96 % Weight: [49.5 kg (109 lb 2 oz)] 49.5 kg (109 lb 2 oz) - Goal SBP <160, MAP >65 - Home antihypertensives: - Please clarify home meds - Current Meds: - PRN labetalol and hydralazine - 01/19 TTE: Pend - 01/19 Troponin: 3,002 - Cont to trend q 6 hr - 01/19 ECG: RSR, QTc 466 - Statin Therapy: - 01/19 LDL: P - Start Statin if appropriate: P Renal/: No Current Issues - Fluid Balance: - Goal: euvolemia - no razo, (indication: ) - Maintenance: 0.9NS @ 75 mL/hr - Daily Chem 10; - Electrolytes replaced per [facility] protocol Recent Labs 11/10172801/20/2236 SODIUM 137 142 POTASSIUM 4.1 4.5 CHLORIDE 104 110* CO2 24 22 BUN 18 15 CREATSERUM 0.78 0.79 MAGNESIUM 2.1 2.1 PHOSPHORUS -- 3.8 ICA -- 4.16* GI/Nutrition: Risk for Dysphagia (11/2021) GIB Recent Labs 01/20/2236 ALBUMIN 3.4* BILIDIRECT 0.1 BILITOTAL 0.8 ALKPHOS 61 ALT 21 AST 52* TP 6.4 - DIET NPO with meds AAT - [place] Swallow Screening Result: passed=cleared for oral intake - Consult nutrition for malnutrition screening - There is no height or weight on file to calculate BMI. - 01/19: insert DHT - Bowel regimen: - - Senna every day - Miralax every day Endo: Acute Hyperglycemia 2/2 Critical Illness - Goal blood glucose 140-180 - Insulin SSI: Regular Q6H Recent Labs 01/19/22200801/19/22235701/20/223601/20/22 0535 GLUCOSE 124* 116* 108* 105* ID: No Current Issues Recent Labs 01/19/22 17201/20/2236 WBC 7.82 8.70 - Temp (24hrs), Av F (36.7 C), Min:97.5 F (36.4 C), Max:98.2 F (36.8 C) - PRN Tylenol for T>100.4F - Most recent and positive cultures: Date Collected Source Result Date Finalized 01/19 Staph nasal swab P 01/19 UA neg - Antiinfectives: Start Date Antiinfective Coverage Course Length Stop Date Heme/Onc: No Current Issues Recent Labs 01/19/22172801/20/2236 WBC 7.82 8.70 RBC 4.34 3.74* HGB 13.4 11.5 HCT 41.1 35.4 PLATELET 258 245 PT 13.3 -- PTT 23.6* -- INR 1.0 -- - Goal plt >100, INR <1.4, Hgb >7 Musc: Acute Deconditioning - PT/OT consulted and following - Current Activity Order: AAT Social/Dispo: - Code status: Prior - Primary Emergency Contact: Vicki Weir, - 01/19: Last updated Family. Discussed daughter an son at bedside - 01/19: Medications NOT reconciled - Discharge planning per PCRM/SW. ICU Checklist: [ ] CAM-ICU [ ] ICU Diary daily [ ] SAT [ ] SBT [ ] DVT ppx; [x ] SCDs; [hold due to petechial hem on MRI ] Lovenox, [ ] heparin [ ] Stress ulcer prophylaxis: none (indication: ) - Lines/Tubes: Sheree: inserted , (indication:) CVC: inserted, (indication:) Razo: inserted 01/19, (indication: accurate intake and output) Rectal tube: inserted, (indication: ) Enteral access: inserted 01/19- to be inserted, [ ] gastric; [ ] post-pyloric KIM Campbell Service pager: [phone] Service Armin #: [id number] (Beds [phone] and beds), Ravenel #: [id number] (Beds [phone] and [facility] beds) 01/20/22 7:42 AM * Nick Campos - 01/19/2022 8:34 PM EST Met pt's family in atrium waiting area. Nervous about status of pt and how long she will need to beat hospital. This cushion builder offered pastoral presence and listening. Family requested visit from , this cushion builder will make a referral. Chaplains are available 24 hours a day and 7 days a week. For urgent matters in [facility], please page [phone]. If the request is not urgent, please enter a consult. Consults are responded to within 24 hours. Rabbi Austyn Professor Of Finance Chaplain Campos Pager: [phone] 24 Hour On-call Pager: [phone] 01/19/222029 Clinical Encounter Type Visited With Family Visit Type Introduction Surgical Visit Post-op Crisis Visit Spiritual/Emotional Distress Pastoral Time Spent 15 min Spiritual Assessment Spiritual Observation Spirituality helpful Emotional Observation Fear/Afraid Hope Observation Searching for hope Support Observation By Family Interventions Provided Active listening;Supportive presence Facilitated Verbalization of feelings;Sharing hopes & fears Explored Expectations Cleaning And Washing Equipment Operator Education Cleaning And Washing Equipment Operator Service Available Yes Educated Family Sacramental Encounters Sacrament of Sick-Anointing Family requested anointing Outcomes Family Outcomes Reduced distress Plan of Care Continue Visiting PRN [facility] Narrative* Yolie Blair, PACK PULLER-INDUSTRIAL CONTROLS TECHNICIAN - 01/28/2022 6:51 AM EST Discharge Summary Name: Karlie Valle Age: 81 y.o. Birthday: 1940 Admit Date: 01/19/2022 5:16 PM Discharge Date: 01/28/22 Discharge Time: 0900 Discharge Unit: [id number] Admission Information Admitting Physician: Herminio Cam MD Discharge Information Discharge Physician: Charlette Rondon MD Problem List Active Hospital Problems Diagnosis Anemia (Low HGB) Stroke Resolved Hospital Problems No resolved problems to display. Brief Summary of Hospital Course for Discharge Summary: Dear Providers, We recently had the pleasure of taking care of Karlie Valle at [facility]. As you well know Karlie Valle is a 81 y.o. female with a past history of HTN, HLD, A-fib not on AC (d/t possible GIB) Ms. Valle was transferred to [facility] after presenting to an OSH ([facility]) with dysarthria, left weakness and facial droop. Per. Ms. Valle's daughter, LKW 01/18. mRS 0. On 01/19, she was found to be very confused along with left weakness by her son-in-law. At the OSH, CTH revealed likely RMCA infarction, CTA RM1 occlusion. She was transferred to [facility], NIHSS 11. She was taken to the OR for thrombectomy and received TICI 3 revascularization. Of note, she had elevated troponin to 3300 at OSH, trending down to 3000 on arrival. Cardiology wasconsulted and recommended medical management. Of note, per family, pt was hospitalized for pneumonia in November and was diagnosed with afib at that time. Anticoagulation was initiated, pt was taking for < 1 week and had concern for hemoptysis and dark stool. She was evaluated in the ER and was told she likely did not have GI bleed, but ultimately made the decision to stop anticoagulation. Stroke work up included: CTH: R basal gangia stroke CTA brain/neck: R M1 occlusion CTP: R MCA mismatch MRI brain Small acute R cerebellar stroke. R MCA stroke with hemorrhagic transformation Repeat CTH 01/22 Stable R MCA stroke/edema and hemorrhage TTE: EF 60-65%, severe LAE Repeat CTH 01/24 stable EKG on admission: NSR, QTC 466 LDL 90 HgbA1c 5.6 She was evaluated by OT, PT and speech therapy. She is being discharged to [facility] in a stable condition. This discharge plan has been explained to the patient and family. Diagnosis: R Cerebellar/ R MCA stroke s/p TICI 3 revascularization Mechanism: cardioembolic, not on AC Management plan at discharge: -ASA 81 mg daily until AC has been initiated -AC plan: initiate Eliquis 1 month post stroke on 02/16 -Atorvastatin 40 mg daily for secondary stroke risk reduction Follow up plan after discharge: -Follow up at Neurovascular clinic with CUAUHTEMOC Alvarado within 2-4 weeks of discharge -Follow up with PCP within 2 weeks of discharge Additional medical issues: Dysphagia -Speech following -Minced and moist diet -Calorie counts-75% of meals 01/24 -PO intake improved, IV fluids stopped 01/25 CAD, Troponemia on admission -Down trending, peaked at 3,590 -ECG NSR with non-specific ST/T wave abnormalities -Per cardiology consult: -Rate control goal < 80 BPM -Obtain TTE, favor noninvasive/medical mgmt for CAD if pt remains stable. -anticoagulation if/when able from a medical/stroke perspective. -If AC contraindicated due to GI bleed in the past, would consider GARRICK occlusion procedure, outpatient referral to electrophysiology. Fever, Leukocytosis: mild fever 99.96 overnight, WBC 11.5 today -Sent repeat Bcx, covid, flu swab. Repeat CXR negative, urinalysis unremarkable x2 -Blood cultures NGTD 07/14 -BLE venous duplex negative -Lactate, amylase, lipase WNL -AST elevated- RUQ U/S negative Atrial fibrillation, (POA) -Not on anticoagulation due to prior reported GI bleed, however, after discussion with family. GI bleed reported was only dark stool for 24 hours without need for blood transfusion or changes in Hgb.Pt had been taking AC for only a few days when this occurred and was told to stop by ER phsycian. - Started metoprolol 12.5 mg BID on 01/22 and increased to 50 mg BID per cardiology. Bradycardia and sinus pause overnight on 01/22-01/23, decreased to 25 mg BID -Home regimen :metoprolol 25 mg BID -AC plan: initiate Eliquis 1 month post stroke on 02/16 and monitor closely HTN, (POA) -SBP goal < 140 mmHg -PRN labetalol/hydralazine -metoprolol on 01/22 as above HLD, (POA) -LDL 90 -discontinue home simvastatin 40 mg daily -Start atorvastatin 40 mg daily Physical exam on the day of discharge: Gen: drowsy, NAD HEENT: normocephalic, no scalp lesions or tenderness Neck: trachea midline No JVD CV: +S1S2, RRR, no m/r/g Lungs: LCTA bilaterally with equal chest rise Abd: soft, nontender, nondistended, +BS x4 quadrants Extrem: Warm and well perfused, no edema, 2+ pulses bilaterally Neuro: Dysarthric, mild aphasia, follows simple commands. Oriented to self. CN II - All visual atkinson intact CN II/III - PERRLA CN III/IV/ -EOMI CN V - Light touch to face intact in V1-3 CN VII - left facial droop CN VIII - Hearing intact CN X - Cough present CN XI - muscular movement of shoulders and sternocleidomastoid muscles intact and equal bilaterally CN XII - midline protrusion of tongue MOTOR EXAMINATION: BLE weakness with drift MRSS on admission: 3 MRSS on discharge: 4 Brief Summary of Consults for Discharge Summary: Brief Summary of Procedures and Imaging for Discharge Summary: US ABDOMEN RUQ/LIVER/GB Final Result IMPRESSION: 1. Unremarkable sonographic appearance of the liver. 2. Cholelithiasis without evidence of acute cholecystitis. DUPLEX VENOUS EXTREMITY LOWER BILATERAL Final Result ECHOCARDIOGRAM Final Result XR CHEST PORTABLE Final Result IMPRESSION: No acute cardiopulmonary disease HEAD WITHOUT CONTRAST Final Result IMPRESSION: Stable examination as compared to 01/22/2022. HEAD WITHOUT CONTRAST Final Result IMPRESSION: Stable exam when compared to same day head CT. Stable appearance of hemorrhagic infarct in the right basal ganglia and nonhemorrhagic infarct in the right medial temporal lobe in the right cerebellum. Stable mass effect on the right lateral ventricle and 2 mm leftward midline shift. I personally viewed and interpreted these images and I have reviewed and approved this report. CHEST PORTABLE Final Result IMPRESSION: No definite acute process. HEAD WITHOUT CONTRAST Final Result IMPRESSION: Stable head CT when compared to the prior exam from January 20, 2022. Redemonstration of a hemorrhagic infarct in the right basal ganglia, nonhemorrhagic infarct in the right medial temporal lobe and the right cerebellum. Underlying mass effect on the right lateral ventricle with 2 mm midline shift to the left stable. HEAD WITHOUT CONTRAST Final Result IMPRESSION: Continued evolution of recent infarct involving the right basal ganglia and right medial temporal lobe, with worsening edema and mass effect and approximately 2 mm leftward midline shift. 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 There is also minimal acute subarachnoid hemorrhage along the right frontal sulci, new compared to prior. BRAIN WITHOUT CONTRAST Final Result IMPRESSION: Small acute infarct right cerebellum. Additional ovoid region of restricted diffusion in the medial right temporal lobe also concerning for additional region of acute infarction. Acute maturing infarct in the right caudate head and right lentiform nucleus with hemorrhagic transformation. There is associated regional mass effect with effacement of frontal horn of right lateral ventricle-progressed since previous CT from January 19, 2022. No significant leftward midline shift. PLAIN FILM FOR NEURO EXAM Final Result IMPRESSION: No radiopaque foreign body. CHEST PORTABLE Final Result IMPRESSION: Minimal left basilar volume loss; otherwise clear lungs. CEREBRAL PERFUSION ANALYSIS Final Result IMPRESSION: There is an area of core infarct in the right basal ganglia with adjacent penumbra as estimated above. I personally viewed and interpreted these images and I have reviewed and approved this report. STROKE HEAD-STROKE ALERT ONLY Final Result IMPRESSION: 1. Right basal ganglia hypodensity, likely consequence of acute ischemia. 2. Equivocal right thalamic lacunar infarct, age indeterminate. 3. Dense intracranial vessels, secondary to recent intravenous contrast administration. There is otherwise no convincing evidence of acute intracranial hemorrhage. No herniation or hydrocephalus. Findings were discussed with Yovany Manuel MD at 5:30 PM on January 19, 2022. I personally viewed and interpreted these images and I have reviewed and approved this report. RO IMAGING FOR NEURO ENDOVASCULAR (Results Pending) XR CHEST PORTABLE (Results Pending) Summary of last selected lab results and date obtained: Lab Results Component Value Date WBC 10.79 01/27/2022 HGB 9.9 (L) 01/27/2022 HCT 30.4 (L) 01/27/2022 PLATELET 279 01/27/2022 MCV 93.3 01/27/2022 Lab Results Component Value Date SODIUM 138 01/27/2022 POTASSIUM 4.5 01/27/2022 CHLORIDE 104 01/27/2022 CO2 26 01/27/2022 BUN 33 (H) 01/27/2022 CREATSERUM 0.85 01/27/2022 GLUCOSE 101 (H) 01/27/2022 Lab Results Component Value Date ALT 32 01/25/2022 AST 50 (H) 01/25/2022 ALKPHOS 71 01/25/2022 BILITOTAL 0.5 01/25/2022 BILIDIRECT 0.1 01/25/2022 Brief Summary of Labs for Discharge Summary: Discharge Orders AMB REFERRAL TO NEUROLOGY Current Outpatient Meds: Medication List for when you go home START taking these medications aspirin 81 MG CHEW chewable tablet Chew 1 tablet daily for 20 days. atorvastatin 40 MG TABS Take 1 tablet by mouth at bedtime. Commonly known as: LIPITOR CHANGE how you take these medications Eliquis 5 MG TABS Take 1 tablet by mouth every 12 hours. For diagnoses: Cerebrovascular accident (CVA), unspecified mechanism What changed: These instructions start on February 16, 2022. If you are unsure what to do until then, ask your doctor or other care provider. Generic drug: apixaban Start taking on: February 16, 2022 CONTINUE taking these medications Calcium 600+D3 Plus Minerals 600-800 MG-UNIT TABS Take by mouth. melatonin 3 MG TABS Take 3 mg by mouth at bedtime. metoprolol 25 MG tab regular release Take 25 mg by mouth 2 times daily. Commonly known as: LOPRESSOR mirtazapine 7.5 MG TABS Take 7.5 mg by mouth At bedtime. Commonly known as: REMERON multivitamin w/ minerals TABS Take 1 tablet by mouth daily. Protonix [address] tablet DR Take 40 mg by mouth daily. Generic drug: pantoprazole STOP taking these medications azithromycin 250 MG TABS Commonly known as: ZITHROMAX simvastatin 40 MG TABS Commonly known as: ZOCOR Medication Instructions: Know your medicines ? Make sure you know why you are taking each medicine. ? Make a master list of all your medicines. Write down the medicine names and doctors' names. Include doses and side effects too. And write down why you take each medicine. Include all prescription and cgbv-hzo-pbxaqlq medicines, vitamins, and supplements. Keep this list up to date. Take a copy to each doctor visit. ? Know when you will run out of each medicine. Ask your pharmacist if there are ways the drugstore can remind you to refill your medicines so you do not run out. Write refill reminders on your calendar. Don't wait until you have a few pills left. ? Ask your pharmacist to plan your refills so that you can pickle cutter all your medicines at the same time. This can mean fewer trips to the drugstore. ? If we have prescribed you a new medication during your stay, please contact with your primary physician for refills Follow-up: Tripp Shahid MD [address] [facility] [address] Schedule an appointment as soon as possible for a visit Please call and schedule a Hospital Follow up appointment with your Primary Care Provider within 1-2 weeks after you are discharged home. [facility] [address] [facility] [id number] Upcoming Appointments (up to five)-Some appointments for Medical Center outpatient clinics or diagnostic testing locations are not displayed below Provider Department Dept Phone 03/14/2022 10:00 AM Christiano Broussard Jr. Neurology [facility] Out[facility] [phone] documented in [facility] Discharge instructions* Discharge Instructions* Lars Lord, PACK PULLER-INDUSTRIAL CONTROLS TECHNICIAN - 01/26/2022 10:31 AM EST Please take these discharge instructions to your primary care doctor follow appointment to show them,keep them for your reference and refer to them often for follow up appointments.It is best to write your appointments on a personal calendar so you do not miss them,call if you need to change any appointments please. Education: What are the most common symptoms of stroke? The following are the most common symptoms of stroke. However, each individual may experience symptoms differently. If any of these symptoms are present, call 911 (or your local ambulance service) immediately. Treatment is most effective when started immediately. Symptoms may be sudden and include: -Weakness or numbness of the face, arm, or leg, especially on one side of the body -Confusion or difficulty speaking or understanding -Problems with vision such as dimness or loss of vision in one or both eyes -Dizziness or problems with balance or coordination -Problems with movement or walking -Severe headaches with no other known cause, especially if sudden onset All of the above warning signs may not occur with each stroke. Do not ignore any of the warning signs, even if they go away - take action immediately. The symptoms of stroke may resemble other medical conditions or problems. Always consult your physician for a diagnosis We have provided both written and verbal education to the patient and family regarding ischemic andhemorrhagic strokes. We have discussed the warning signs/symptoms as well as causes of stroke. We have discussed the importance of activating 911/EMS in the event of these symptoms. We have reviewed the patient's personal risk factors as well as education on reducing these risk factors. [facility] Personalized Stroke Treatment Plan My Stroke Type: [x] Ischemic Stroke (Blockage of blood flow to the brain) [] Hemorrhagic Stroke (Bleeding in the brain) [] TIA- Transient Ischemic Attack (mini-stroke) My Risk Factors Include: [x] High Blood Pressure [] Diabetes [x] High Cholesterol [] Heart Disease [x] Atrial Fibrillation (Irregular Heart Rate) [] Smoking [] Obesity [] Clotting Disorder [] Alcohol Abuse [] Drug Abuse [] Prior History [] Family History [] Obstructive Sleep Apnea My Follow-Up Treatment Goals: [x] Blood Pressure < 140/90 [] Stop Smoking Immediately [x] LDL < 70 [] HgA1C levels <7% [] Decrease BMI to <25 [x] Take all ordered medications [] Avoid non-prescription or over the counter medication not cleared by your physician [x] Limit Alcohol use to no more than 1 drink per day for females and 2 drinks per day for males [] Do not drive until cleared [x] Follow up with PCP within a week of discharge to home [x] Follow-up with Neurovascular [x] Follow-up with Occupational,physical and speech therapy if ordered [x] Watch out for depression and seek treatment if needed CONTACTS FOR NEUROVASCULAR SERVICE: - You may call your neurovascular doctors office at [phone], if you have questions between 8:30 am and 4:30 pm. - For off hours or the weekend you may call the office or the hospital radial arm saw operator at and ask for the stroke resident bone puller to be paged. - If you have any questions or needs, please call Leila Bernabe RN, stroke senior program planner at [phone] Mon-Fri from 7- ? Any questions concerning your discharge instructions please call Case Management Office [phone] Patient Stroke Resources: [facility] Stroke Support The [facility] Stroke Support Group is for stroke survivors, friends, andfamily members. Meets every Sunday from 12:00PM to 1:00PM at [facility] ([facility]), [address] [place] [address] Rut Amador at [phone]. If you are outside of the [place] area, contact The [place] [employer] at www.strokeassociation.org or 2-041-9-stroke, or for supports groups in your area. Also refer to the Stroke Education booklet you received as part of your stroke education while you were a patient for additional resources Additional Contacts: Evening and Weekend Contacts If you have questions or concerns during evening, weekend, or holiday hours, please call: -[facility] and [facility] radial arm saw operator at [phone]. -[facility] radial arm saw operator at [phone] Ask the radial arm saw operator to page the on-call doctor for Neurovascular service, they were responsible for your care while you were in the hospital. If you having an emergency, call 911. *In the event of an Emergency: If you have a physical or psychiatric emergency call 911 or go to your local emergency department. You should also call your outpatient provider's emergency number. Other reference numbers: [facility] Intake Office at [phone]; [facility] at 035-661-6152; or Suicide Prevention Hotline at 696-362-8368. *Helpful phone numbers: Free Crisis Hotline: 3-363-412-TALK ( ) Suicide Hotline: 168.137.8286 Seniors Suicide Hotline: 101.112.8680 [facility] Youth: 149.385.7567 [facility] [place]: 260.534.5894 (free counseling) [facility] Access Hotline: 154-199-FLVO (382-296-0445) 24-hour crisis text hotline: Text the word "4hope" to 695-765 for crisis support. Texting this number is free if you have Verizon, [employer], [employer] or Sprint. [facility] Financial Assistance: If you want to learn more about these programs, please call .There are three programsto help you with the cost of your medical care: Medicaid, Hospital Care Assurance Program (HCAP) & valeria If you are without Insurance and believe you may qualify for Medicaid/public assistance: The [facility] Department of Job and Family Services can now process drake (TANF), food (SNAP) and Medicaid Applications over the phone. Please call 6-863-923[facility] (0970) and apply over the phone or apply online at www.benefits.[place].gov. Sunday-Sunday 8am-12pm noon. Medication Assistance Programs [employer] members can buy 100+ common prescriptions for FREE, $3 or $6. Annual membership is $36 for individuals and $72 for families (up to 6 people, including pets). Sign up online or enroll at your nearest pharmacy! -[employer], web site can provide a significant number of coupons for medications at a much lower colunga. * Medications* KIM Arnold - 01/26/2022 10:30 AM EST Know your medicines Make sure you know why you are taking each medicine. Make a master list of all your medicines. Write down the medicine names and doctors' names. Includedoses and side effects too. And write down why you take each medicine. Include all prescription vxhygqr-qwg-fvudnsd medicines, vitamins, and supplements. Keep this list up to date. Take a copy to each doctor visit. Know when you will run out of each medicine. Ask your pharmacist if there are ways the drugstore can remind you to refill your medicines so you do not run out. Write refill reminders on your calendar. Don't wait until you have a few pills left. Ask your pharmacist to plan your refills so that you can pickle cutter all your medicines at the same time. This can mean fewer trips to the drugstore. If we have prescribed you a new medication during your stay, please contact with your primary physician for refills * Discharge Instr - Activity* KIM Arnold - 01/26/2022 10:30 AM EST Activity -- Please follow these instructions: -Advance your activity as you can tolerate - You may walk all you want. You may go up and down the steps. Use the railing for support - It is normal for your energy level and sleep patterns to change after a stroke - Take rest periods during the day as needed - Complete recovery may take several weeks, months, up to a year. Patience is mcdonald. * Discharge Instr - Notify* KIM Arnold - 01/26/2022 10:31 AM EST Notify Your Doctor if you have any of the following: NEUROLOGICAL CHANGES-- Change in alertness Increased sleepiness Nausea and vomiting New onset of numbness or weakness in arms or legs New problems with your bowels or bladder New or worse problems with balance or walking Seizures, new or worsening UNRELIEVED HEADACHE PAIN-- New or increased pain unrelieved with pain medications Pain associated with nausea and vomiting Pain associated with other symptoms QUESTIONS OR PROBLEMS-- Any questions or problems that you are unsure about Deep Vein Thrombosis Symptoms Call your doctor or nurse right away if you have any signs of blood clots such as -Tender, swollen or reddened areas anywhere in your leg. -Numbness or tingling in your lower leg or calf, or at the top of your leg or groin -Skin on you leg looks pale or blue or feels cold to touch -Chest pain or have trouble breathing -Fever or chills documented in this [facility]11-13-2022 Consult note* Uriel Bingham MD - 01/22/2022 11:47 AM ESTAssociated Order(s): IP CONSULT TO CARDIOLOGY Images from the original note were not included. CARDIOLOGY INITIAL CONSULTATION Reason for Consultation: Elevated troponin ASSESSMENT AND PLAN Ms. Karlie Valle is a 81 y.o. female with PAF not currently on AC presenting with CVA s/p thrombectomy, course complicated by AFRVR and elevated troponin. ACTIVE PROBLEM LIST AFRVR Demand ischemia Assessment: The patient has a pre-existing diagnosis of paroxysmal atrial fibrillation and apparently has not been treated with anticoagulation because of concern for GI bleeding without now on endoscopic workup thus far. She has presented with acute stroke treated with thrombectomy. Currently she is in atrial fibrillation with RVR around 110 beats per minute. Her troponin has been elevated to the range of 3500 and is downtrending. In evaluating her EKG, she does have ST depression in the inferolateral territory when at higher rate and have a concern for underlying CAD. Rate control is recommended, would quickly up titrate beta natanael ie metoprolol 50 mg bid, titrateto 100 mg bid if needed to keep resting HR<80 bpm if possible Diagnostics: TTE is ordered and is pending . Will likely favor noninvasive / medical approach to CAD this admission unless marked LV dysfunction, clinical HF or angina is apparent Antithrombotic therapy to include in the half-way DOAC monotherapy, would not necessarily recommend addition of antiplatelet therapy given risk of hemorrhagic transformation. Reasonable to consider aspirin before anticoagulation if the latter will not be appropriate for another 7 days or so. In the half-way, if Gi bleeding is seen on DOAC then would suggest appropriate endoscopic workup ; if nointervenable GI lesions then consider GARRICK occlusion procedure, reasonable to order outpatient referral to electrophysiology. Rhythm control is not recommended at this time but can be re evaluated as an outpatient. Secondary diagnoses considered: Acute stroke Risk of bleeding I have personally discussed with the Neurovasc resident today We will follow up as needed or upon request during the hospitalization. Thank you for the consultation. Please contact our cardiology consult team if clinical progress is insufficient with the above recommendations or with any questions (day[place]: [place] [phone] or IHIS message fellow/attending; after hours: page griddle cook *[phone] with urgent concerns). Alexandru Bingham MD, [facility] Erp Manager of Internal Medicine - Clinical Division of Cardiovascular Medicine HISTORY It was my pleasure to see Ms. Karlie Valle in consultation at the [facility] on 01/22/2022. I obtained history predominantly from a conversation with the patient's son, Abdias Valle, who was present at the bedside. This is a 81-year-old woman who has a history of atrial fibrillation and apparently treated with anticoagulation which was stopped because of GI bleeding. There was no definite endoscopic workup mentioned. The patient has been under a lot of stress and grief because of the loss of her several months ago. She lives independently but has had emotional difficulty in transitioning to living alone. Apparently she has had some degree of dyspnea and on exertion and exertional chest discomfort in the past. It sounds as if she may have undergone a recent stress test whichwas not grossly abnormal to their understanding. The patient's acute event was presentation with dysarthria, left-sided weakness, facial droop. She underwent thrombectomy. She is noted to atrial fibrillation with rapid ventricular response and elevated troponin. Upon questioning of the patient I asked her twice whether she had chest discomfort and she had different responses to each. REVIEW OF SYSTEMS Review of Systems Unable to perform ROS: mental status change The remainder of a complete review of systems was performed and was negative. HISTORICAL DATA PAST MEDICAL HISTORY Hypertension Hyperlipidemia Atrial fibrillation History of Gi bleeding PAST SURGICAL HISTORY Past Surgical History: Procedure Laterality Date SINUS SURGERY HOME MEDICATIONS Pending review from family member CURRENT MEDICATIONS [Held by provider] aspirin 81 mg Oral Daily Or [Held by provider] aspirin 300 mg Rectal Daily atorvastatin 40 mg Oral QHS [Held by provider] enoxaparin 30 mg Subcutaneous Daily early evening faMOTIdine 20 mg Oral Q12H metoprolol 50 mg Oral Q12H polyethylene glycol 17 g Oral Daily Or polyethylene glycol 17 g Per NG tube Daily senna 8.6 mg Oral QAM Or senna 8.6 mg Per NG tube QAM ALLERGIES No Known Allergies SOCIAL HISTORY Social History Socioeconomic History Marital status: Spouse name: Not on file Number of children: Not on file Years of education: Not on file Highest education level: Not on file Occupational History Not on file Tobacco Use Smoking status: Not on file Smokeless tobacco: Not on file Substance and Sexual Activity Alcohol use: Not on file Drug use: Not on file Sexual activity: Not on file Other Topics Concern Not on file Social History Narrative Not on file Social Determinants of Health Financial Resource Strain: Not on file Food Insecurity: Not on file Transportation Needs: Not on file Physical Activity: Not on file Stress: Not on file Social Connections: Not on file Intimate Partner Violence: Not on file Housing Stability: Not on file FAMILY HISTORY Unable to obtain due to minimally communicative PHYSICAL EXAM Intake/Output Summary (Last 24 hours) at 01/22/2022 1147 Last data filed at 01/22/2022 1102 Gross per 24 hour Intake 942.78 ml Output 375 ml Net 567.78 ml Temp: [97.9 F (36.6 C)-99.7 F (37.6 C)] 97.9 F (36.6 C) Pulse (Heart Rate): [72-140] 112 Resp Rate: [14-30] 18 BP: (108-155)/(56-70) 154/70 O2 Sat (%): [94 %-99 %] 99 %Body mass index is 21.31 kg/m . BP 154/70 (BP Location: Right arm, BP Position: Lying) Pulse 112 Temp 97.9 F (36.6 C) (Axillary) Resp 18 Ht 1.524 m (5') Wt 49.5 kg (109 lb 2 oz) SpO2 99% BMI 21.31 kg/m Physical Exam Constitutional: Appearance: Normal appearance. She is well-developed. She is not diaphoretic. HENT: Head: Normocephalic and atraumatic. Eyes: General: Lids are normal. No scleral icterus. Conjunctiva/sclera: Conjunctivae normal. Neck: Vascular: Normal carotid pulses. JVD (borderline / high normal;) present. Cardiovascular: Rate and Rhythm: Tachycardia present. Rhythm irregularly irregular. Pulses: Carotid pulses are 2+ on the right side and 2+ on the left side. Heart sounds: Normal heart sounds, S1 normal and S2 normal. No murmur heard. Pulmonary: Effort: Pulmonary effort is normal. No respiratory distress. Breath sounds: Normal breath sounds. Abdominal: Palpations: Abdomen is soft. Tenderness: There is no abdominal tenderness. Musculoskeletal: Right lower leg: No edema. Left lower leg: No edema. Skin: General: Skin is warm and dry. Neurological: Mental Status: She is lethargic and disoriented. Psychiatric: Mood and Affect: Mood is not anxious. Behavior: Behavior is withdrawn. Comments: Speaks in short sentences of unclear veracity LABS Lab Results Component Value Date SODIUM 137 01/22/2022 POTASSIUM 4.1 01/22/2022 GLUCOSE 94 01/22/2022 GLUCOSE 137 (H) 01/20/2022 CHLORIDE 106 01/22/2022 CO2 24 01/22/2022 BUN 24 01/22/2022 CREATSERUM 0.86 01/22/2022 Lab Results Component Value Date WBC 12.17 (H) 01/22/2022 HGB 10.7 (L) 01/22/2022 HCT 35.1 01/22/2022 PLATELET 181 01/22/2022 MCV 100.6 (H) 01/22/2022 Lab Results Component Value Date HSTROP 2,025 (H) 01/21/2022 HSTROP 2,363 (H) 01/21/2022 HSTROP 2,616 (H) 01/20/2022 CARDIOVASCULAR DIAGNOSTICS / OTHER IMAGING Telemetry personally reviewed and interpretation is: atrial fibrillation with RVR * Brittney Joseph MD - 01/19/2022 5:38 PM ESTAssociated Order(s): IP CONSULT TO SURGERY - NEURO Neurosurgery Thrombectomy Consult Note HPI Ms. Karlie Valle is a 81 y.o. female w/ hx of HTN, HLD, Afib (not on AC) who presents as a transferfor stroke alert w/ left hemiparesis, left facial droop, and expressive aphasia. CTA demonstrates RMCA occlusion. She takes no anticoagulants or antiplatelet agents. Baseline mRS 0 LKW 1700 on 01/18 NIHSS at OSH 9 NIHSS at [facility] 11 CTH Negative for hemorrhage CTA R MCA occ CTP CBF<30% 10 mL Tmax >6s 23 mL mismatch volume 13 mL mismatch ratio 2.3 tPA given no ROS: unable to obtain No past medical history on file. No past surgical history on file. No family history on file. Allergies Not on File Infusions sodium chloride 0.9% Scheduled Meds PRN Meds: hydrALAZINE, labetalol Home Meds Prior to Admission medications Not on File Vitals Temp: [98.2 F (36.8 C)] 98.2 F (36.8 C) Pulse (Heart Rate): [84] 84 Resp Rate: [16] 16 BP: (149)/(76) 149/76 O2 Sat (%): [98 %] 98 % Physical AOx1 Dysarthric and aphasic, Right gaze preference PERRL Left facial droop Left hemiparesis arm and leg (briefly AG) Left arm and leg drift SILT Labs WBC/Hgb/Hct/Plts: 7.82/13.4/41.1/258 (01/19 1729) Bun/Creat/Cl/CO2/Glucose: --/--/--/--/139 (01/19 1717) No results for input(s): PT, INR in the last 72 hours. Imaging: CT STROKE HEAD-STROKE ALERT ONLY (Results Pending) CT CEREBRAL PERFUSION ANALYSIS (Results Pending) A/P: Karlie Valle is a 81 y.o. female w/ hx of HTN, HLD, Afib (not on AC) who presents as a transfer for stroke alert w/ left hemiparesis, left facial droop, and expressive aphasia. , presenting as stroke alert. Exam and imaging findings consistent with acute R MCA occlusion, meeting criteria for emergent revascularization. - to OR emergently for thrombectomy - to be admitted to neurocritical care service under NCCU attending postoperatively Staff: Dr. Garcia Covering: NS2 ([id number]) ## neurosurgery coverage changes at 0530/1730; if 0530 or 1730 has passed since original consult note placed, please page covering resident above ## Associated attestation - Gary Garcia MD - 01/26/2022 11:27 AM EST I, Gary Garcia MD., saw and evaluated the patient. Case was discussed with the Housestaff. I personally performed the mcdonald portions of the history and the physical examination and I agree with thefindings, assessment and plan. I edited the documentation as necessary. Karlie Valle is a 81 y.o. female w/ hx of HTN, HLD, Afib (not on AC) who presents as a transfer forstroke alert w/ left hemiparesis, left facial droop, and expressive aphasia. , presenting as strokealert. Exam and imaging findings consistent with acute R MCA occlusion, meeting criteria for emergent revascularization. - to OR emergently for thrombectomy - to be admitted to neurocritical care service under NCCU attending postoperatively Thank you for allowing me to participate in the care of this patient. documented [facility] this [facility] History and physical note* Donna Corbin APRN-CUAUHTEMOC - 01/19/2022 9:41 PM EST NEUROCRITICAL CARE HISTORY AND PHYSICAL HOSPITAL VISIT DEMOGRAPHICS Patient: Karlie Valle Code status: Prior Admission date: 01/19/2022 5:16 PM Hospital days: LOS: 0 days CHIEF COMPLAINT AMS, Left sided weakness HISTORY OF PRESENT ILLNESS Karlie Valle is a 81 y.o. female with a past history of HTN, HLD, A-fib not on AC (d/t recent GIB. Last AC use was Nov) Ms. Valle was transferred to [facility] after presenting to an OSH ([facility]) with dysarthria, left weakness and facial droop. Per. Ms. Valle's daughter, LKW 01/18. mRS 0. Today, Ms. Valle was found to be very confused along with left weakness by her son-in-law. At the OSH, CTH revealed likely RMCA infarction, CTA RM1 occlusion. When Ms. Valle presented to [facility], NIHSS 11. She was taken to the OR for thrombectomy and presents to the NCCU. INTERVAL HISTORY SINCE ADMISSION 01/19/2022: Admit to NCCU REVIEW OF SYSTEMS Review of systems not obtained due to pt with expressive and receptive aphasia. Info obtained per chart review. HISTORY No past medical history on file. No past surgical history on file. Social History Socioeconomic History Marital status: Not on file Spouse name: Not on file Number of children: Not on file Years of education: Not on file Highest education level: Not on file Occupational History Not on file Tobacco Use Smoking status: Not on file Smokeless tobacco: Not on file Substance and Sexual Activity Alcohol use: Not on file Drug use: Not on file Sexual activity: Not on file Other Topics Concern Not on file Social History Narrative Not on file Social Determinants of Health Financial Resource Strain: Not on file Food Insecurity: Not on file Transportation Needs: Not on file Physical Activity: Not on file Stress: Not on file Social Connections: Not on file Intimate Partner Violence: Not on file Housing Stability: Not on file ALLERGIES AND HOME MEDICATIONS Allergies: has no allergies on file. Home Medications: No medications prior to admission. Prior to Arrival Meds: No medications prior to admission. Hospital Medications: Infusions: sodium chloride 0.9% Scheduled: [START ON 01/20/2022] aspirin 81 mg Oral Daily Or [START ON 01/20/2022] aspirin 300 mg Rectal Daily [Held by provider] enoxaparin 30 mg Subcutaneous Daily early evening senna 8.6 mg Oral QAM Or senna 8.6 mg Per NG tube QAM PRN: acetaminophen OR acetaminophen OR acetaminophen OR acetaminophen, Calcium Gluconate OR calcium gluconate IVPB, hydrALAZINE OR hydrALAZINE, labetalol OR labetalol, Magnesium Sulfate IVPB, polyethylene glycol OR polyethylene glycol, potassium chloride OR potassiumchloride OR Potassium Bicarb-Citric Acid OR potassium chloride, Sodium Phosphate IVPB OR Sodium Phosphate IVPB PHYSICAL EXAM GENERAL: Alert, no acute distress HEENT: normocephalic CARDIO: +S1S2, RRR, Tele: RSR, no edema PULM: LCTA throughout maria c, diminished maria c LL. Respirations are easy, unlabored. Equal chest rise. ABDOMINAL: soft, rounded, nontender, nondistended, active bowel sounds : razo draining clear, yellow, urine EXTREMITIES/VASCULAR: 2+ distal pulses x4, capillary refill <3 seconds. Rt groin mynx closure. Dressing CDI. No hematoma or bruising. NEURO: Alert to person. Attempts to answer other orientation questions, but has expressive & likely receptive aphasia. Able to follow simple commands. EOMI, PERRL- 3mm, Rt gaze preference, but able to cross midline. Left facial droop. RUE and RLE- no drift. LUE- drift noted. Able to move fingers, but not grasp/close hand. Able to wiggle toes, and attempts to lift LLE off bed, but unable to get it off bed. Sensation decreased left side. 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 CTA RM1 Occlusion, CTP: mismatch ratio. - 01/19: No tPA given- outside of window - 01/19 NSGY consulted for thrombectomy, performed and obtained TICI 3 revascularization - Ongoing CVA management: - Neurochecks Q1H - Goal SBP <160 (see cards) - Imaging: - 01/19 CT H: Rt BG hypodensity. Age indeterminate Rt thalamic lacunar infarct. - 01/19 MRI B: P -01/19 Antiplatelet therapy: ASA 81 mg every day - Daily NIHSS: NIH Stroke Scale: NIH Level of Conciousness (Provider): 0 NIH LOC Questions (Provider): 1 NIH LOC Commands (Provider): 0 NIH Best Gaze (Provider): 1 NIH Visual (Provider): 0 NIH Facial Palsy (Provider): 3 NIH Left Arm Motor (Provider): 1 NIH Right Arm Motor (Provider): 0 NIH Left Leg Motor (Provider): 2 NIH Right Leg Motor (Provider): 0 NIH Limb Ataxia (Provider): 0 NIH Sensory (Provider): 1 NIH Best Language (Provider): 2 NIH Dysarthria (Provider): 1 NIH Extinction and Inattention (Provider): 0 NIH Total Score (Provider): 12 - Cytotoxic Cerebral Edema Management: - Goal Na 135-145; monitor Na Q AM - Stroke etiology presumed to be cardioembolic based on the TOAST Criteria. Stroke risk factors include atrial fib., hypercholesterolemia and hypertension. - Complete TTE (see cards) - Obtain LDL level and statin therapy if indicated (see cards) - Obtain HA1C level (see endo) - Initiate antiplatelet therapy within 48H of admission (see cards) - Initiate VTE prophylaxis immediately if no tPA given or 24H post-thrombectomy if performed (see heme) - Develop therapeutic anticoagulation plan, if indicated based on CVA etiology (see cards) - Consider urine drug screen on admission if no stroke risk factors - 01/19: Negative - Consider hypercoagulability panel 24H-post tPA if no stroke risk factors - Pain/Sedation management - Tylenol 650mg Q4H PRN Psych: No Current Issues Pulm: No Current Issues - Goal SpO2 >92%; wean FiO2 as tolerated O2 Sat (%): 96 % (01/19 2100) O2 Device: room air (01/19 2100) Flow (L/min): 2 (01/19 2015) - [id number], encourage pulmonary toileting - 01/19 CXR: P Cards: Elevated Troponin HTN HLD A-fib not on AC Temp: [97.5 F (36.4 C)-98.2 F (36.8 C)] 97.5 F (36.4 C) Pulse (Heart Rate): [73-92] 82 Resp Rate: [14-31] 16 BP: (124-177)/(58-76) 125/58 O2 Sat (%): [96 %-99 %] 96 % Weight: [49.5 kg (109 lb 2 oz)] 49.5 kg (109 lb 2 oz) - Goal SBP <160, MAP >65 - Home antihypertensives: - Please clarify home meds - Current Meds: - PRN labetalol and hydralazine - 01/19 TTE: P - 01/19 Troponin: 3,002 - Cont to trend q 6 hr - 01/19 ECG: RSR, QTc 466 - Statin Therapy: - 01/19 LDL: P - Start Statin if appropriate: P Renal/: No Current Issues - Fluid Balance: - Goal: euvolemia - Net: P mL/24H, P mL/admission - UOP: P mL/24H - Continue razo, (indication: accurate intake and output) - Maintenance: 0.9NS @ 75 mL/hr - Daily Chem 10; - Electrolytes replaced per NCCU protocol Recent Labs 01/19/22 1729 SODIUM 137 POTASSIUM 4.1 CHLORIDE 104 CO2 24 BUN 18 CREATSERUM 0.78 MAGNESIUM 2.1 GI/Nutrition: Risk for Dysphagia (11/2021) GIB Recent Labs 01/19/22 1729 ALBUMIN 4.1 BILIDIRECT 0.1 BILITOTAL 1.0 ALKPHOS 79 ALT 26 AST 49* TP 7.5 - DIET NPO with meds AAT - - Consult nutrition for malnutrition screening - There is no height or weight on file to calculate BMI. - 01/19: Trying to clarify timing of GIB: P - 01/19: insert DHT - Bowel regimen: - - Senna every day - Miralax every day Endo: Acute Hyperglycemia 2/2 Critical Illness - Goal blood glucose 140-180 - Insulin SSI: Regular Q6H Recent Labs 01/19/22 1717 01/19/22 1729 01/19/222008 GLUCOSE 139* 118* 124* ID: No Current Issues Recent Labs 01/19/22 172 WBC 7.82 - Temp (24hrs), Av.9 F (36.6 C), Min:97.5 F (36.4 C), Max:98.2 F (36.8 C) - PRN Tylenol for T>100.4F - Most recent and positive cultures: Date Collected Source Result Date Finalized 01/19 Staph nasal swab P 01/19 UA P - Antiinfectives: Start Date Antiinfective Coverage Course Length Stop Date Heme/Onc: No Current Issues Recent Labs 01/19/22 1729 WBC 7.82 RBC 4.34 HGB 13.4 HCT 41.1 PLATELET 258 PT 13.3 PTT 23.6* INR 1.0 - Goal plt >100, INR <1.4, Hgb >7 Musc: Acute Deconditioning - PT/OT consulted and following - Current Activity Order: AAT Social/Dispo: - Code status: Prior - Primary Emergency Contact: Vicki Weir, - 01/19: Last updated Family. Discussed daughter an son at bedside - 01/19: Medications NOT reconciled - Discharge planning per PCRM/SW. ICU Checklist: [ ] CAM-ICU [ ] ICU Diary daily [ ] SAT [ ] SBT [ ] DVT ppx; [x ] SCDs; [ ] Lovenox, [ ] heparin [ ] Stress ulcer prophylaxis: none (indication: ) - Lines/Tubes: Beaver: inserted , (indication:) CVC: inserted, (indication:) Razo: inserted 01/19, (indication: accurate intake and output) Rectal tube: inserted, (indication: ) Enteral access: inserted 01/19- to be inserted, [ ] gastric; [ ] post-pyloric Patient was admitted to NCCU due to RMCA CVA s/p thrombectomy. Patient remained in the neurosciences critical care unit overnight requiring frequent neuro checks, strict BP control and monitoring, f/u on postop imaging, strict I&Os, pain managment, and monitoring for neurologic decline. Greaterthe 50% of my time today was spent in counseling and/or coordination of care for this patient. I have spent a total of 35 minutes with this patient. Donna Corbin APRN-INDUSTRIAL CONTROLS TECHNICIAN Service pager: [phone] Service Armin #: [id number] (Beds [id number] and beds), Armin #: [id number] (Beds [phone] and [facility] beds) 01/19/22 9:41 PM documented in this encounterOS[facility] Nurse Note* Denise Fuentes RN - 01/19/2022 8:02 PM EST Report given to PHOTO PRINT SPECIALIST. Patient transported to SICU by OB TECH. * Denise Fuentes RN - 01/19/2022 7:34 PM EST 6/7Fr Mynx device deployed into right groin @ 1920. documented in this encounterOS[facility] Emergency department Note* Kiesha Mckoy MD - 01/19/2022 5:38 PM EST ED ATTENDING NOTE Chief Complaint: Extremity Weakness History / Clinical presentation: Karlie Valle is a 81 y.o. female who presents with with R basal ganglia and R MCA CVA LKW 1700 1 day prior (01/18) Vital Signs: BP 149/76 (BP Location: Left arm, BP Position: Lying) Pulse 84 Temp 98.2 F (36.8 C) (Oral) Resp 16 SpO2 98% Exam: NIH 11 ROS: Unable to obtain due to CVA Past Medical History: No past medical history on file. Past Surgical History No past surgical history on file. Past Social/Family History Mexican speaking Current Medications: No current outpatient medications on file. MEDICAL DECISION MAKING, PLAN OF CARE, ED COURSE On 01/19/2022 I saw and personally examined the patient. I discussed the history and examination with the resident physician and agree with the plan of care Impression / Differential: Acute CVA Plan: Jimmie Mckoy MD 01/19/221741 * DINORAH Morillo - 01/19/2022 5:25 PM EST SW responded to Level A Stroke Alert brought in by [facility] as a transfer from [facility]. Patient is confused and aphasic. Daughters were at the OSH and are coming here, and medics verified their contact information: Daughter, Vicki Weir, Daughter, Yue Hunter, SW was with neuro resident when he called daughterVicki to inform her of patient's arrival and obtain history. SW updated demographics and will be available for support while patient is in the ED. J LUIS Cardona, [facility] Chocolate Finisher Operator, Emergency Dept. [phone] Available via Secure Chat * Amanda Green RN - 01/19/2022 5:16 PM EST Bed: E040 Expected date: 01/19/22 Expected time: Means of arrival: Air Comments: * Amanda Green RN - 01/19/2022 5:16 PM EST Patient arrived to CT scanner. ED team, pharm, neuro at bedside for report. HPI: LKW 1900 last night Slurred speech, left weakness, facial droop NIH 9 Trop [address] head showed Infarct * Joselito Vazquez MD - 01/19/2022 5:05 PM EST Images from the original note were not included. EMERGENCY DEPARTMENT ENCOUNTER CHIEF COMPLAINT Chief Complaint Patient presents with Extremity Weakness HPI Karlie Valle is a 81 y.o. female with history of CAD, HTN, HLD who presents via EMS as a level A stroke alert for the following sx: slurred speech, L facial droop, LUE weakness. Per EMS report, patient was on eliquis in october but was taken off of it due to GI bleed. Patient's daughter last spoke to patient over the phone around [phone], when she was seen today by family she was confused with left sided weakness. LKW 1700 01/19/22, NIH Score on arrival: NIHSS (Provider) Flowsheet Row First Filed Value Provider NIH Stroke Scale NIH Interval (Provider) admission filed on 01/19/2022 1724 NIH Level of Conciousness (Provider) 0 filed on 01/19/2022 1724 NIH LOC Questions (Provider) 1 filed on 01/19/2022 1724 NIH LOC Commands (Provider) 1 filed on 01/19/2022 1724 NIH Best Gaze (Provider) 0 filed on 01/19/2022 1724 NIH Visual (Provider) 0 filed on 01/19/2022 1724 NIH Facial Palsy (Provider) 1 filed on 01/19/2022 1724 NIH Left Arm Motor (Provider) 1 filed on 01/19/2022 1724 NIH Right Arm Motor (Provider) 0 filed on 01/19/2022 1724 NIH Left Leg Motor (Provider) 2 filed on 01/19/2022 1724 NIH Right Leg Motor (Provider) 0 filed on 01/19/2022 1724 NIH Limb Ataxia (Provider) 0 filed on 01/19/2022 1724 NIH Sensory (Provider) 0 filed on 01/19/2022 1724 NIH Best Language (Provider) 2 filed on 01/19/2022 1724 NIH Dysarthria (Provider) 2 filed on 01/19/2022 1724 NIH Extinction and Inattention (Provider) 1 filed on 01/19/2022 1724 NIH Total Score (Provider) 11 filed on 01/19/2022 1724 Is NIH=0 Within 180 min of Last Known Well Time? -- Patient was evaluated by the telestroke attending at the [facility]. Head CT w/o contrast: acute infarct incolving the right basal ganglia with probable thrombus in right MCA. Transferred [facility] for furtherimaging and evaluation by Neurovascular attending. REVIEW OF SYSTEMS Constitutional: No chills, fatigue and fever. HENT: No sore throat or rhinorrhea. Eyes: No vision changes or conjunctival injection. Respiratory: No shortness of breath or cough. Cardiovascular: No chest pain, leg swelling. Gastrointestinal: No abdominal distension, abdominal pain, nausea, vomiting or diarrhea. Genitourinary: No dysuria or hematuria. Skin: No rashes or wounds. MSK: No joint pain or swelling. Neurologic: No headache, numbness, or weakness. All other systems reviewed and are negative. PAST MEDICAL HISTORY No past medical history on file. SURGICAL HISTORY No past surgical history on file. CURRENT MEDICATIONS No current outpatient medications on file. ALLERGIES Not on File FAMILY HISTORY No family history on file. SOCIAL HISTORY Social History Socioeconomic History Marital status: Not on file Spouse name: Not on file Number of children: Not on file Years of education: Not on file Highest education level: Not on file Occupational History Not on file Tobacco Use Smoking status: Not on file Smokeless tobacco: Not on file Substance and Sexual Activity Alcohol use: Not on file Drug use: Not on file Sexual activity: Not on file Other Topics Concern Not on file Social History Narrative Not on file Social Determinants of Health Financial Resource Strain: Not on file Food Insecurity: Not on file Transportation Needs: Not on file Physical Activity: Not on file Stress: Not on file Social Connections: Not on file Intimate Partner Violence: Not on file Housing Stability: Not on file PHYSICAL EXAM Vital Signs:BP 149/76 Pulse 84 SpO2 98% Constitutional: Well appearing, in no acute distress. HENT: Normocephalic and atraumatic. Oropharynx is clear and moist. Neck: Normal range of motion. Neck supple. Cardiovascular: Normal rate and regular rhythm. No murmurs. Pulmonary: Effort normal, non-labored. Good aeration and symmetric breath sounds. No wheezes or Rhonchi. Abdominal: Abdomen soft, non-distended. There is no tenderness. No rebound or guarding. MSK: No deformities, joint effusions. Skin: Skin is warm and dry. No rashes or wounds noted Psychiatric: Normal mood and affect. NIHSS (Provider) Flowsheet Row First Filed Value Provider NIH Stroke Scale NIH Interval (Provider) admission filed on 01/19/2022 1724 NIH Level of Conciousness (Provider) 0 filed on 01/19/2022 1724 NIH LOC Questions (Provider) 1 filed on 01/19/2022 1724 NIH LOC Commands (Provider) 1 filed on 01/19/2022 1724 NIH Best Gaze (Provider) 0 filed on 01/19/2022 1724 NIH Visual (Provider) 0 filed on 01/19/2022 1724 NIH Facial Palsy (Provider) 1 filed on 01/19/2022 1724 NIH Left Arm Motor (Provider) 1 filed on 01/19/2022 1724 NIH Right Arm Motor (Provider) 0 filed on 01/19/2022 1724 NIH Left Leg Motor (Provider) 2 filed on 01/19/2022 1724 NIH Right Leg Motor (Provider) 0 filed on 01/19/2022 1724 NIH Limb Ataxia (Provider) 0 filed on 01/19/2022 1724 NIH Sensory (Provider) 0 filed on 01/19/2022 1724 NIH Best Language (Provider) 2 filed on 01/19/2022 1724 NIH Dysarthria (Provider) 2 filed on 01/19/2022 1724 NIH Extinction and Inattention (Provider) 1 filed on 01/19/2022 1724 NIH Total Score (Provider) 11 filed on 01/19/2022 1724 Is NIH=0 Within 180 min of Last Known Well Time? -- ED COURSE & MEDICAL DECISION MAKING Assessment: Karlie Valle is a 81 y.o. female who presents as a stroke alert. DDx: Ischemic stroke, hemorrhagic stroke, hypoglycemia, electrolyte abnormality, infection, seizure Initial Plan: Labs: POC glucose, CBC, Chem, LFTs, EKG, PT/INR Imaging: CT Angio, CT Perfusion Therapeutic: PRN BP Control Consultation: Neurovascular ED Course: Patient arrives via EMS as a stroke alert. Patient evaluated at the CT scanner by myself and the Neurovascular Team resident. NIH on arrival: NIHSS (Provider) Flowsheet Row First Filed Value Provider NIH Stroke Scale NIH Interval (Provider) admission filed on 01/19/2022 1724 NIH Level of Conciousness (Provider) 0 filed on 01/19/2022 1724 NIH LOC Questions (Provider) 1 filed on 01/19/2022 1724 NIH LOC Commands (Provider) 1 filed on 01/19/2022 1724 NIH Best Gaze (Provider) 0 filed on 01/19/2022 1724 NIH Visual (Provider) 0 filed on 01/19/2022 1724 NIH Facial Palsy (Provider) 1 filed on 01/19/2022 1724 NIH Left Arm Motor (Provider) 1 filed on 01/19/2022 1724 NIH Right Arm Motor (Provider) 0 filed on 01/19/2022 1724 NIH Left Leg Motor (Provider) 2 filed on 01/19/2022 1724 NIH Right Leg Motor (Provider) 0 filed on 01/19/2022 1724 NIH Limb Ataxia (Provider) 0 filed on 01/19/2022 1724 NIH Sensory (Provider) 0 filed on 01/19/2022 1724 NIH Best Language (Provider) 2 filed on 01/19/2022 1724 NIH Dysarthria (Provider) 2 filed on 01/19/2022 1724 NIH Extinction and Inattention (Provider) 1 filed on 01/19/2022 1724 NIH Total Score (Provider) 11 filed on 01/19/2022 1724 Is NIH=0 Within 180 min of Last Known Well Time? -- Patient with right MCA occlusion on CT, outside the window for tpa, neurosurgery consulted who willtake patient emergently to OR for thrombectomy. Patient admitted to NCCU. At this time the patient requires further workup and management in the inpatient setting. The patient was admitted to the Neurovascular Team's service. Patient and family/caregivers were in agreementwith the treatment plan and all questions were addressed prior to admission. Will continue to be monitored while in the emergency department. Impression: R MCA occlusion Disposition: Admission, NCCU This note was dictated using [employer] medical voice recognition software. Attempts at proofreading were made, but errors may occasionally still occur. Joselito Vazquez MD Resident 01/22/22 1101 Joselito Vazquez MD Resident 01/22/22 110 [facility] note * Diagnosis Onset Date Resolution Status Dyspnea acute Hemoptysis acute Dyspnea acute New onset atrial fibrillation November 07, 2021 acute Essential hypertension chron ic [facility] Work Phone: 1(494) 598-933401-04-2022 Hospital Discharge instructions Additional Instructions Discharge to [facility] 03/15/2021, nonskilled, private pay.[facility] Work Phone: Discharge summary Author Stefano Palmer [facility] January 02, 2023 1:09pm Note Date/Time January 02, 2023 1 :09pm [facility] Medical Records Department [address] [place] [address] Discharge Summary 01/02/23 1303 MR#: [id number] Acct: [id number] Name: KARLIE VALLE Rep #:[id number] : 1940 82 From: Stefano guerrero MD PCP: Dr. Errol Shahid MD Status: ADM IN Location: [place] [address] Providers Date of Admission: 12/30/22 Primary Care Physician: Dr. Errol Shahid MD Consultations 12/30/22 20:13 Consult: Gastroenterology Routine Consulting Provider: [facility] Reason for Consult: ABLA presumed GI bleed EMERGENT Consult: No MD Notified: Yes Date Notified: 12/30/22 Time Notified: 17:15 Method of Notification: Text Reason For Visit: SUSPECTED GI BLEED, ABLA Diagnosis Discharge Diagnosis (1) Anemia: Status: Acute Code(s): D64.9 - Anemia, unspecified Qualifiers: Anemia type: iron deficiency Iron deficiency anemia type: other iron deficiency Qualified Code(s): D50.8 - Other iron deficiency anemias (2) GIB (gastrointestinal bleeding): Status: Acute Code(s): K92.2 - Gastrointestinal hemorrhage, unspecified Qualifiers: GI bleed type/associated pathology: unspecified gastrointestinal hemorrhage type Qualified Code(s): K92.2 - Gastrointestinal hemorrhage, unspecified Plan #Acute on chronic anemia due to acute GI bleed/GERD * Hb was 6.1 on admission. Is s/p 2 units of PRBCs * on IV pantoprazole 40mg bid. states she has had an ulcer in the past. * currently NPO * gastroenterology consulted. 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 A-fib/HTN/HLD/history of CVA ? Continue with her blood pressure medications, will hold her Eliquis secondary to GI bleeding ? We will monitor and make adjustments as necessary ? Continue with statin 3. Anxiety/depression/chronic migraines ? Stable ? Continue with escitalopram DVT: SCDs Medications at Discharge Home Medications acetaminophen 500 mg tablet 1,000 mg (2 x 500 mg) PO Q8 PRN fever/pain 1-10 #0 tabs 02/20/22 atorvastatin 40 mg tablet 40 mg PO QHS Cholesterol 02/20/22 calcium carbonate 500 mg-vitamin D3 5 mcg (200 unit) tablet (Oyster Shell Calcium-Vitamin D3) 1 tab PO BREAKFAST Supplement 02/20/22 metoprolol tartrate 25 mg tablet 12.5 mg PO BID BP 02/20/22 mirtazapine 15 mg tablet 22.5 mg PO QHS Check with primary doctor 02/20/22 pantoprazole 40 mg tablet,delayed release 40 mg PO DAILY GERD 02/20/22 menthol 0.44 %-zinc oxide 20.6 % topical ointment (Calmoseptine) 1 applic topical BID #0 grams 03/09/22 pramipexole 0.125 mg tablet 0.125 mg PO QHS #0 tabs 03/09/22 escitalopram oxalate 10 mg tablet 10 mg PO DAILY depression 12/30/22 ferrous sulfate 325 mg (65 mg iron) tablet (Feosol) 325 mg PO DAILY 12/30/22 sennosides 8.6 mg-docusate sodium 50 mg tablet (2-in-1 Laxative) 1 tab-cap PO DAILY constipation 12/30/22 apixaban 2.5 mg tablet (Eliquis) 2.5 mg PO BID #60 tabs 01/02/23 hydrocortisone acetate 25 mg rectal suppository 25 mg DE BID 4 weeks #24 ea 01/02/23 Hospital Course Operations None Procedures Colonoscopy and EGD Summary of Care Provided Minutes Spent on Discharge: 33 Hospital Course: Per HPI: The patient is an 82 y/o F w/ PMHx: RLS, Anxiety and Depression, Hx esophageal stenosis, Hx GI bleed w/ angiodysplasia duodenum/stomach, GERD, HTN, HLD, PAF, Hx CVA, Chronic migraine headaches, IBS, Chronic normocytic anemia/Fe deficiency anemia who presents to the [facility] ED on 12/30/22 per PCP recommendation secondary to abnormal outpatient labs ordered per Dr. Tripp Shahid with noted Hgb level 6.1, MCV 82.4 with patient reported lightheadedness, dizziness, increased fatigue. Of note patient had CBC also in 12/28/2022 with hemoglobin at that time 6.7, MCV 82.9 with Eliquis held per PCP with repeat level unfortunately noted to be 6.1 prompting the referral for evaluation with prior to this recent assessment her level most recently 09/28/2022 hemoglobin 11.8. Patient does admit to dark black stools but timeline is unclear although daughter who is present does not believe this is true primarily reports the patient as being lightheaded and dizzy. Patient denies any dyspnea associated. Patient does complain of left focal anterior chest discomfort which is reproducible upon palpation and she does confirm that this is the discomfort shehas been having worse with certain types of movement. Work-up in the ED included T97.8, heart rate 82, BP 172/69, respiratory rate 14, 99% on room air, CBC with WBC 11.7, hemoglobin 6.9, MCV 81.8, platelet 446 without marked shift, CMP with chloride 110, BUN/creatinine 22/0.95, glucose 128 otherwise not marked appearing, hepatic profile unremarkable, type and cross for 2 unit initiated perED physician, occult blood requested per ED but not sent because no stool in thevault and no gross blood noted. Hospital Course: 1. Acute on chronic anemia due to acute GI bleed from 2 gastric AVMs/GERD/rectal prolapse/anal fissure?82-year-old female presented to the hospital with anemia that was felt to be due to an acute GI bleed. Yesterday neurology was consulted and initially performed a EGD which demonstrated Schatzki's ring as well as a hiatal hernia and 2 bleeding angiodysplastic lesions in the duodenum. A colonoscopy was obtained and this was unremarkable for any source of bleeding however it did show rectal prolapse and a fairly large anal fissure as well. This was treated and gastroenterology recommended discharge with stool softeners and hydrocortisone suppositories twice a day. She is anemic and so we will continue with her iron tablet which is only dose daily but I do recommend that she have more aggressive bowel regimen at the [facility] if necessary to reduce the chances of repeated rectal prolapse. Gastroenterology also did state that it was okay to restart her anticoagulation as she is already on a PPI, dosing was adjusted secondary to age and weight so her Eliquis was decreased to 2.5 mg p.o. twice daily since she is 82 years old and less than 60 kg. I discussed with her and her daughter the plan for discharge back to the [facility] today and they both expressed understanding of the risk benefits of discharge and are okay with her going back today. I recommended she have outpatient lab work to monitor her hemoglobin. 2. A-fib, hypertension, hyperlipidemia, history of CVA, anxiety, depression, chronic migraines are all chronic medical conditions which complicate her care. Her home medications were continued where appropriate. Eliquis dosing adjustment as indicated above Physical Exam Narrative General: Alert, Oriented x3, Cooperative, No apparent distress HEENT: Atraumatic, PERRLA, EOMI, Normocephalic Oral: Moist Mucosa Neck: Supple, No JVD Lungs: Diminished, Normal air movement, No rhonchi, No wheeze, No rales Cardiovascular: Regular rate, Regular Rhythm, Normal S1, Normal S2, No murmurs Abdomen: Soft, Non Tender, Non-Distended, No Hepato-splenomegaly Extremities: No edema, Capillary Refill Less than 3 Seconds Skin: No rashes, No breakdown Musculoskeletal: No Tenderness to Palpation of Joints or Extremities Neurological: Cranial nerves II-XII grossly intact, Motor Exam 5/5 strength throughout, Sensory exam intact to light touch and pain Psych/Mental Status: Normal Affect, Appropriate Weight / BMI Weight Weight: 117 lb 11.629 oz Body Mass Index (BMI) 23.1 ABG / Lab / Microbiology Data 01/01/23 05:40 01/02/23 05:50 Laboratory: Laboratory Results - last 24 hr 01/02/23 05:50: Sodium 143, Potassium 3.7, Chloride 118 H, Carbon Dioxide 21.0, Anion Gap 4 L, BUN 20 H, Creatinine 1.11 H, Estim Creat Clear Calc 29.04, Est GFR (MDRD) Af Amer 61, Est GFR (MDRD) Non-Af 50 L, BUN/Creatinine Ratio 18.0, Glucose 108 H, Calcium 8.8 Microbiology: Microbiology 12/30/22 16:25 Stool Stool Occult Blood (YANCI) - Final Meaningful Use Info Meaningful Use Diagnoses (Choose all that apply): None applicable Discharge Plan Admission Admit Date/Time: 12/30/22 17:09 Attending Provider: Stefano Palmer Primary Care Provider: Errol Shahid Consulting Providers: Chasity Huffman; Helene Khan Instructions Additional Instructions / Restrictions: Obtain a CBC and a BMP at the [facility] in a couple of days to monitor your anemia and renal function. Discharge Orders/Prescriptions Prescriptions: New hydrocortisone acetate 25 mg suppository 25 mg DE BID 28 Days Qty: 24 0RF Eliquis 2.5 mg tablet 2.5 mg PO BID Qty: 60 0RF Continued acetaminophen 500 mg Tablet 1,000 mg PO Q8 PRN (Reason: fever/pain 1-10) Qty: 0 0RF atorvastatin 40 mg tablet 40 mg PO QHS pantoprazole 40 mg tablet,delayed release (DR/EC) 40 mg PO DAILY mirtazapine 15 mg tablet 22.5 mg PO QHS metoprolol tartrate 25 mg tablet 12.5 mg PO BID calcium carbonate-vitamin D3 [Oyster Shell Calcium-Vit D3] 500 mg-5 mcg (200 unit) tablet 1 tab PO BREAKFAST menthol-zinc oxide [Calmoseptine] 0.44-20.6 % Ointment 1 applic topical BID Qty: 0 0RF Protocol: *Topical Application Instructions APPLICATION INSTRUCTIONS: Apply to coccyx pramipexole 0.125 mg Tablet 0.125 mg PO QHS Qty: 0 0RF escitalopram oxalate 10 mg tablet 10 mg PO DAILY ferrous sulfate [Feosol] 325 mg (65 mg iron) tablet 325 mg PO DAILY sennosides-docusate sodium [2-in-1 Laxative] 8.6-50 mg tablet 1 tab-cap PO DAILY Discontinued Eliquis 5 mg tablet 5 mg PO BID Referrals / Follow Up: Errol Shahid MD [Primary Care Provider] - Disposition Disposition (needs filled in before D/C Order can be placed): Longterm Facility Charges/Coding Visit Charges Inpatient E&M: 56651 Disch Hosp >30min 01/02/23 1309 <Electronically signed by Stefano Palmer MD> Cosigner Signature (if applicable): CC: Dr. Errol Shahid MD; Dr. Stefano Palmer MD~ Signed [facility] Work Phone: Evaluation noteNo assessment information available [facility] Work Phone: Evaluation note* Diagnosis Onset Date Resolution Status Other chronic sinusitis acut e Polyp of nasal cavity acute [facility] Work Phone: Evaluation note* Diagnosis Cerebrovascular accident (CVA), unspecified mechanism Anemia (Low HGB) Anemia, unspecified [facility] this [facility] Diagnosis Onset Date Resolution Status Hemoptysis resolved Essential hypertension chron ic [id number] acute Angiodysplasia of duodenum a cute Angiodysplasia of stomach ac [place] Anxiety with depression acut e Aphasia complicating stroke acute Debility acute Dehydration, moderate acute Depression acute Dysphagia acute Esophageal stenosis acute Facial droop due to acute ce rebrovascular accident (CVA) acute GERD (gastroesophageal reflux disease) acute Glucose intolerance (impaired glucose tolerance) acute Hiatal hernia acute LAE (left atrial enlargement) acute Left-sided weakness acute Normochromic normocytic anemia acute Orthostatic hypotension acut e Paroxysmal A-fib acute Positive occult stool blood test acute Thrush of mouth and esophagus acute Atherosclerosis of coronary artery of [place] heart without angina pectoris chronic Essential hypertension chron ic Hyperlipidemia chronic [facility] Work Phone: Evaluation note* Diagnosis Onset Date Resolution Status Hemoptysis resolved [id number] acute Anxiety with depression acut e Aphasia complicating stroke acute Debility acute Dehydration, moderate acute Dysphagia acute Facial droop due to acute ce rebrovascular accident (CVA) acute Left-sided weakness acute Normochromic normocytic anemia acute Orthostatic hypotension acut e Thrush acute Upper gastrointestinal bleed acute Positive occult stool blood test resolved Thrush of mouth and esophagus resolved Acute right MCA stroke acute Acute stroke due to occlusio n of right cerebellar artery acute Anxiety acute Atrial fibrillation acute Debility acute Expressive aphasia acute GERD (gastroesophageal reflux disease) acute Hiatal hernia acute Hyperlipidemia acute Irritable bowel syndrome acu te Kidney stone acute Left hemiplegia acute Migraine acute Osteoarthritis acute Osteoporosis acute Receptive aphasia acute Thrush acute Upper gastrointestinal bleed acute Hypertension chronic [facility] Work Phone: Evaluation note* Diagnosis Onset Date Resolution Status Acute right MCA stroke acute Atrial fibrillation acute Debility acute Expressive aphasia acute GERD (gastroesophageal reflux disease) acute Hyperlipidemia acute Left hemiplegia acute Receptive aphasia acute Hypertension chronic Acute stroke due to occlusio n of right cerebellar artery resolved Anxiety resolved Hiatal hernia resolved Irritable bowel syndrome res olved Kidney stone resolved Migraine resolved Osteoarthritis resolved Osteoporosis resolved Thrush resolved Upper gastrointestinal bleed resolved [facility] Work Phone: Evaluation note* Diagnosis Onset Date Resolution Status Anemia acute Anemia requiring transfusions acute Fatigue acute GIB (gastrointestinal bleeding) acute History of aphasia acute Positive occult stool blood test resolved [facility] Work Phone: Evaluation note* Diagnosis Onset Date Resolution Status Anemia acute Anemia requiring transfusions acute Fatigue acute History of aphasia acute GIB (gastrointestinal bleeding) resolved Positive occult stool blood test resolved [facility] Work Phone: Hospital Discharge instructions Additional Instructions Right M2 occlusion. Troponin high-sensitivity 3300.EKG sinus rhythm.[facility] Work Phone: Reason for referral (narrative)* Consultation (Routine) - New Request Specialty Diagnoses / Procedures Referred By Contac t Referred To Contact Neurology Diagnoses Cerebrovascular accident (CVA), unspecified mechanism Lars Lord APRN-CNP [address] [place] [address] Referral ID Status Reason Start Date Expiration Date V isits Requested Visits Authorized [id number] New Request 01/26/2022 02/20/2023 1 1 * Radiology (Routine) - New Request Specialty Diagnoses / Procedures Referred By Contac t Referred To Contact Procedures US ABDOMEN RUQ/LIVER/GB Lars Lord APRN-CNP [address] [place] [address] Referral ID Status Reason Start Date Expiration Date V isits Requested Visits Authorized [id number] New Request 01/25/2022 02/19/2023 1 1 * (Routine) - New Request Specialty Diagnoses / Procedures Referred By Contac t Referred To Contact Procedures DVT/VTE RISK ASSESSMENT Charlette Rondon MD [address] [place] [address] Referral ID Status Reason Start Date Expiration Date V isits Requested Visits Authorized [id number] New Request 01/25/2022 02/19/2023 1 1 * Radiology (Routine) - Pending Review Specialty Diagnoses / Procedures Referred By Contac t Referred To Contact Procedures ECG Usama Cantrell, RACHAEL-[employer] TECHNICIAN [address] [place] [address] Referral ID Status Reason Start Date Expiration Date V isits Requested Visits Authorized [id number] Pending Review 01/20/2022 02/14/2023 1 1 * (Routine) - Pending Review Specialty Diagnoses / Procedures Referred By Contac t Referred To Contact Procedures PLATELET MONITORING PER PROTOCOL Hannah Machuca MD [address] [place] [address] Referral ID Status Reason Start Date Expiration Date V isits Requested Visits Authorized [id number] Pending Review 01/19/2022 02/13/2023 1 1 * (Routine) - Pending Review Specialty Diagnoses / Procedures Referred By Contac t Referred To Contact Procedures DVT/VTE RISK ASSESSMENT Hannah Machuca MD [address] [place] [address] Referral ID Status Reason Start Date Expiration Date V isits Requested Visits Authorized [id number] Pending Review 01/19/2022 02/13/2023 1 1 [facility] for referral (narrative)No reason for referral information availableWCincinnati Shrin[facility] Work Phone: Chief Complaint and Reason for Visit Chief Complaint SINUSITIS LT EYE PAIN lianne protocol - sinusitis Chief Complaint SINUSITIS LT EYE PAIN lianne protocol - sinusitis FESS W ETHMOIDECTOMY Reason for Visit Other chronic sinusi tis Polyp of nasal cavity Chief Complaint LT EYE PAIN lianne protocol - sinusitis lianne protocol - sinusitis FESS W ETHMOIDECTOMY CONSTIPATION Reason for Visit Other chronic sinusi tis Polyp of nasal cavity Chief Complaint LT EYE PAIN lianne protocol - sinusitis lianne protocol - sinusitis FESS W ETHMOIDECTOMY CONSTIPATION GALL STONES Reason for Visit Other chronic sinusi tis Polyp of nasal cavity Chief Complaint CONSTIPATION GALL STONES FEVER BLOOD IN SPUTUM gi bleed, weakness Chief Complaint CONSTIPATION GALL STONES FEVER Chief Complaint CONSTIPATION GALL STONES FEVER BLOOD IN SPUTUM Chief Complaint GALL STONES FEVER BLOOD IN SPUTUM gi bleed, weakness ED follow up UTD EKG/ REF ER/ CP/ Afib/ PALP R06.00 R06.00 R06.00 R06.00 AFIB Reason for Visit Dyspnea Hemoptysis Dyspnea New onset atrial fibrillation Essential hypertension Chief Complaint FEVER BLOOD IN SPUTUM gi bleed, weakness ED follow up UTD EKG/ REF ER/ CP/ Afib/ PALP R06.00 R06.00 R06.00 R06.00 AFIB Reason for Visit Dyspnea Hemoptysis Dyspnea New onset atrial fibrillation Essential hypertension Chief Complaint FEVER BLOOD IN SPUTUM gi bleed, weakness ED follow up UTD EKG/ REF ER/ CP/ Afib/ PALP R06.00 R06.00 R06.00 R06.00 AFIB F/U RRL INFILTRATE, H/O HEMOPTYSIS stroke Reason for Visit Dyspnea Hemoptysis Dyspnea New onset atrial fibrillation Essential hypertension Chief Complaint FEVER BLOOD IN SPUTUM gi bleed, weakness ED follow up UTD EKG/ REF ER/ CP/ Afib/ PALP R06.00 R06.00 R06.00 R06.00 AFIB F/U RRL INFILTRATE, H/O HEMOPTYSIS stroke CVA Cerebrovascular accident Cerebrovascular accident Cerebrovascular accident Cerebrovascular accident Cerebrovascular accident Cerebrovascular accident Cerebrovascular accident Cerebrovascular accident Cerebrovascular accident Cerebrovascular accident Cerebrovascular accident Cerebrovascular accident Cerebrovascular accident Reason for Visit Hemoptysis Essential hypertension [id number] Angiodysplasia of duodenum Angiodysplasia of stomach Anxiety with depression Aphasia complicating stroke Debility Dehydration, moderate Depression Dysphagia Esophageal stenosis Facial droop due to acute cerebrovascular accident (CVA) GERD (gastroesophageal reflux disease) Glucose intolerance (impaired glucose tolerance) Hiatal hernia LAE (left atrial enlargement) Left-sided weakness Normochromic normocytic anemia Orthostatic hypotension Paroxysmal A-fib Positive occult stool blood test Thrush of mouth and esophagus Atherosclerosis of coronary artery of [place] heart without angina pectoris Essential hypertension Hyperlipidemia Chief Complaint ED follow up UTD EKG/ REF ER/ CP/ Afib/ PALP R06.00 R06.00 R06.00 R06.00 AFIB F/U RRL INFILTRATE, H/O HEMOPTYSIS stroke CVA Cerebrovascular accident Cerebrovascular accident Cerebrovascular accident Cerebrovascular accident Cerebrovascular accident Cerebrovascular accident Cerebrovascular accident Cerebrovascular accident Cerebrovascular accident Cerebrovascular accident Cerebrovascular accident Cerebrovascular accident Cerebrovascular accident Cerebrovascular accident Cerebrovascular accident CVA Reason for Visit Hemoptysis [id number] Anxiety with depression Aphasia complicating stroke Debility Dehydration, moderate Dysphagia Facial droop due to acute cerebrovascular accident (CVA) Left-sided weakness Normochromic normocytic anemia Orthostatic hypotension Thrush Upper gastrointestinal bleed Positive occult stool blood test Thrush of mouth and esophagus 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 Anxiety Atrial fibrillation Debility Expressive aphasia GERD (gastroesophageal reflux disease) Hiatal hernia Hyperlipidemia Irritable bowel syndrome Kidney stone Left hemiplegia Migraine Osteoarthritis Osteoporosis Receptive aphasia Thrush Upper gastrointestinal bleed Hypertension Chief Complaint CVA LAB WORK LABWORK Reason for Visit Acute right MCA stro ke Atrial fibrillation Debility Expressive aphasia GERD (gastroesophageal reflux disease) Hyperlipidemia Left hemiplegia Receptive aphasia Hypertension 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 Anxiety Hiatal hernia Irritable bowel syndrome Kidney stone Migraine Osteoarthritis Osteoporosis Thrush Upper gastrointestinal bleed Chief Complaint CVA LAB WORK LABWORK CORRECTION LABWORK Reason for Visit Acute right MCA stro ke Atrial fibrillation Debility Expressive aphasia GERD (gastroesophageal reflux disease) Hyperlipidemia Left hemiplegia Receptive aphasia Hypertension 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 Anxiety Hiatal hernia Irritable bowel syndrome Kidney stone Migraine Osteoarthritis Osteoporosis Thrush Upper gastrointestinal bleed Chief Complaint CORRECTION LABWORK CORRECTION LAB WORK Chief Complaint CORRECTION LAB WOR K SUSPECTED GI BLEED, ABLA SUSPECTED GI BLEED, ABLA SUSPECTED GI BLEED, ABLA SUSPECTED GI BLEED, ABLA SUSPECTED GI BLEED, ABLA SUSPECTED GI BLEED, ABLA Reason for Visit Anemia Anemia requiring transfusions Fatigue GIB (gastrointestinal bleeding) History of aphasia Positive occult stool blood test Chief Complaint CORRECTION LAB WOR K SUSPECTED GI BLEED, ABLA SUSPECTED GI BLEED, ABLA SUSPECTED GI BLEED, ABLA SUSPECTED GI BLEED, ABLA SUSPECTED GI BLEED, ABLA SUSPECTED GI BLEED, ABLA CORRECTION LABWORK CORRECTION LABWORK CORRECTION LABWORK LABWORK Reason for Visit Anemia Anemia requiring transfusions Fatigue History of aphasia GIB (gastrointestinal bleeding) Positive occult stool blood test Chief Complaint CORRECTION LAB WOR K SUSPECTED GI BLEED, ABLA SUSPECTED GI BLEED, ABLA SUSPECTED GI BLEED, ABLA SUSPECTED GI BLEED, ABLA SUSPECTED GI BLEED, ABLA SUSPECTED GI BLEED, ABLA CORRECTION LABWORK CORRECTION LABWORK CORRECTION LABWORK LABWORK LABWORK LABWORK Reason for Visit Anemia Anemia requiring transfusions Fatigue History of aphasia GIB (gastrointestinal bleeding) Positive occult stool blood test Chief Complaint CORRECTION LABWORK CORRECTION LABWORK CORRECTION LABWORK LABWORK LABWORK LABWORK CORRECTION LAB WORK Chief Complaint LABWORK CORRECTION LAB WORK CORRECTION LAB WORK Chief Complaint Admit Date HYYPOXIA, COVID March 22, 2024 2 :49pm HYYPOXIA, COVID March 23, 2024 9 :16am HYYPOXIA, COVID March 24, 2024 6 :35pm HYYPOXIA, COVID March 25, 2024 7 :12pm HYYPOXIA, COVID March 26, 2024 1 0:41am CORRECTION LAB WORK March 31, 2024 5:00am CORRECTION LAB WORK March 31, 2024 4:30pm CORRECTION LAB WORK April 04, 2024 5:00am CORRECTION LAB WORK April 11, 2024 5:00am CORRECTION LAB WORK April 21 5:00am CORRECTION LAB WORK June 30, 2024 4 :00am Reason for Visit Admit Date COVID-March 22, 2024 2 :49pm Hypoxia March 22, 2024 2 :49pm Family History No Family History Records Found Relationship Condition Age at Onset Recorded Date/T anna Not Specified Cardiac disease Unknown father Coronary artery disease Unknown Cerebrovascular accident (CVA) Unknown Hypertension Unknown mother Hypertension Unknown brother Hypertension Unknown sister Diabetes mellitus Unknown Advance Directives No Advanced Directives Records Found Advance Directive Response Recorded Date/ Time Advance Directives No April 15, 2017 10:36pm Living Will Yes June 14, 2021 1:34pm Power of Adzing And Boring Machine Operator Yes June 14 1:34pm Advance Directive Response Recorded Date/ Time Name of Medical Power of Adzing And Boring Machine Operator ABDIAS VALLE June 14, 2021 1:34pm Advance Directives No April 15, 2017 10:36pm Living Will Yes February 04 9:08am Power of Adzing And Boring Machine Operator Yes February 05, 2020 9:08am Advance Directive Response Recorded Date/ Time Name of Medical Power of Adzing And Boring Machine Operator YUE AND VICKI November 07, 2021 5:26am Name of Medical Power of Adzing And Boring Machine Operator . November 12, 2021 1:01pm Advance Directives No April 15, 2017 10:36pm Living Will Yes November 12 1:01pm Power of Adzing And Boring Machine Operator Yes November 12, 2021 1:01pm Advance Directive Response Recorded Date/ Time Advance Directives No April 15, 2017 10:36pm Living Will No November 05 2:05pm Power of Adzing And Boring Machine Operator No November 05 2:05pm Advance Directive Response Recorded Date/ Time Name of Medical Power of Adzing And Boring Machine Operator YUE AND VICKI November 07, 2021 5:26am Advance Directives No April 15, 2017 10:36pm Living Will Yes November 07 5:26am Power of Adzing And Boring Machine Operator Yes November 07 5:26am Advance Directive Response Recorded Date/ Time Name of Medical Power of Adzing And Boring Machine Operator YUE AND VICKI November 07, 2021 4:26am Name of Medical Power of Adzing And Boring Machine Operator . 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 Hunter, daughter January 30, 2022 11:43am Name of Medical Power of Adzing And Boring Machine Operator Yue Hunter, daughter February 21, 2022 2:57pm Advance Directives No April 15, 2017 9:36pm Living Will Yes February 21, 2 022 2:57pm Power of Adzing And Boring Machine Operator Yes February 21, 2022 2:57pm Advance Directive Response Recorded Date/ Time Advance Directives No April 15, 2017 10:36pm Living Will Yes February 21, 2 022 3:57pm Power of Adzing And Boring Machine Operator Yes February 21, 2022 3:57pm Name of Medical Power of Adzing And Boring Machine Operator Yue Hunter, daughter February 21, 2022 3:57pm Advance Directive Response Recorded Date/ Time Advance Directives No April 15, 2017 10:36pm Living Will Yes February 21, 2 022 3:57pm Power of Adzing And Boring Machine Operator Yes February 21, 2022 3:57pm Advance Directive Response Recorded Date/ Time Name of Medical Power of Adzing And Boring Machine Operator norm olmedo December 30, 2022 8:25pm Advance Directives No April 15, 2017 10:36pm Living Will Yes December 30 8:25pm Power of Adzing And Boring Machine Operator Yes December 30, 2022 8:25pm Advance Directive Response Recorded Date/ Time Name of Medical Power of Adzing And Boring Machine Operator norm olmedo bangreg December 30, 2022 7:25pm Advance Directives No April 15, 2017 9:36pm Living Will Yes December 30 7:25pm Power of Adzing And Boring Machine Operator Yes December 30, 2022 7:25pm Advance Directive Response Recorded Date/ Time Advance Directives No April 15, 2017 9:36pm Living Will Yes December 30 7:25pm Power of Adzing And Boring Machine Operator Yes December 30, 2022 7:25pm Advance Directive Response Recorded Date/ Time Advance Directives No April 15, 2017 10:36pm Living Will Yes December 30 8:25pm Power of Adzing And Boring Machine Operator Yes December 30, 2022 8:25pm Advance Directive Response Recorded Date/ Time Living Will Yes March 22 4:55pm Do you have a Healthcare Pow er of Adzing And Boring Machine Operator? Yes March 22, 2024 4:55pm Name of Medical Power of Adzing And Boring Machine Operator [email or web address] March 22, 2024 4:55pm Advance Directives No April 15, 2017 10:36pm Summary Purpose Additional Source Comments Goals (unrecognized section and content) Goals may be documented in a n alternate sectionGoals may be documented in an alternate sectionGoals may be documented in an alternate sectionGoals may be documented in an alternate sectionGoals may be documented in an alternate sectionGoals may be documented in an alternate sectionGoals may be documented in an alternate sectionGoals may be documented in an alternate sectionGoals may be documented in an alternate sectionGoals may be documented in an alternate sectionGoals may be documented in an alternate sectionGoals may be documented in an alternate sectionGoals may be documented in an alternate sectionGoals may be documented in an alternate sectionGoals may be documented in an alternate section INFORMATION SOURCE (unrecogn ized section and content) DATE CREATED AUTHOR 01/26/2022 [facility] DATE CREATED AUTHOR AUTHOR'S ORGANIZ ATION 02/05/2022 [facility] DATE CREATED AUTHOR AUTHOR'S ORGANIZ ATION 08/20/2024 [facility] Reason for Visit (unrecogniz ed section and content) Reason Comments Extremity Weakness Specialty Diagnoses / Procedures Referred By Sujata aldana Referred To Contact Diagnoses Level A stroke; Herminio Alcantara MD [address] [place] [address] [facility] [address] [place] [address] Referral ID Status Reason Start Date Expiration Date Visits Re quested Visits Authorized [id number] 1 1 Scheduled Active and Recently Administ ered Medications (unrecognized section and content) Medication Order 01/26/2022 01/27/2022 01/28/2022 aspirin chewable tablet 81 mg(Linked Group 1) 81 mg, Oral, DAILY, First dose (after last modification) on Sun01/24/22 at 0930, Until Discontinued, May begin use of chewable aspirin when patient passes swallow test. 0830 (Given - Provider: Rashad Butler RN) 0835 (Given - Provider: Sesar Carlin RN) 0814 (Given - Provider: Marianna Huffman RN) aspirin suppository 300 mg(Linked Group 1) 300 mg, Rectal, DAILY, First dose (after last modification) on Sun01/24/22 at 0930, Until Discontinued, Use suppository until patient passes swallow test. 0830 (See Alternative - Provider: Rashad Butler RN) 0835 (See Alternative - Provider: Sesar Carlin RN) 0814 (See Alternative - Provider: Marianna Huffman RN) atorvastatin (LIPITOR) tablet 40 mg 40 mg, Oral, DAILY AT BEDTIME, First dose (after last modification) on 01/21/22 at 2100, Until Discontinued 2011 (Given - Provider: Kareem Hamm RN) 2012 (Given - Provider: Sidney Mckeon RN) Enoxaparin Sodium (LOVENOX) injection 30 mg 30 mg, Subcutaneous, DAILY EARLY EVENING, First dose on Kalina 01/19/22 at 2000, Until Discontinued, , Indications: DVT/PE prophylaxis 1831 (Given - Provider: Rashad Butler RN) 1734 (Given - Provider: Sesar Carlin RN) 1818 (Not Given - Provider: Marianna Huffman RN - Reason: Patient/family refused - Comment: Patient being discharged, family refused) faMOTIdine (PEPCID) tablet 20 mg 20 mg, Oral, EVERY 12 HOURS, First dose on Sun01/21/22 at 2100, Until Discontinued 0829 (Given - Provider: Rashad Butler RN)2011 (Given - Provider: Kareem Hamm RN) 0836 (Given - Provider: Sesar Carlin RN)2012 (Given - Provider: Sidney Mckeon RN) 0814 (Given - Provider: Marianna Huffman RN) ipratropium-albuterol (DUONEB) 0.5-2.5 (3) MG/3ML nebulizer solution 3 mL 3 mL, Nebulization, EVERY 6 HOURS, First dose (after last modification) on Sun01/25/22 at 1400, Until Discontinued 0123 (Not Given - Provider: Chavo Hui RCP - Reason: Other - Comment: RN request to not wake. pt sleeping)0943 (Given - Provider: Elvia Voss RCP)1433 (Not Given - Provider: Elvia Voss RCP - Reason: Other - Comment: pt receiving other care)2033 (Given - Provider: Ade Gomes SENIOR QA TESTER) 023 (Not Given - Provider: Ade Gomes RCP - Reason: Patient sleeping)802 (Given - Provider: Xiomara Lynn [facility])131 (Given - Provider: Xiomara Lynn [facility])2038 (Given - Provider: Mini Kruse [facility]) 023 (Not Given - Provider: Mini Kruse RCP - Reason: Patient/family refused)0823 (Not Given - Provider: Vanessa Stoner, Limited Permit [place] - Reason: Patient not available - Comment: pt eating)1404 (Given - Provider: Vanessa Stoner, Limited Permit [place])1999 (Canceled Entry - Provider: System Discharge - Comment: Automatically canceled at discontinue of medication order) metoprolol (LOPRESSOR) tablet 25 mg 25 mg, Oral, EVERY 12 HOURS, First dose (after last reorder) on Sun01/22/22 at 2100, Until Discontinued, Hold for HR < 60. 0830 (Given - Provider: Rashad Butler RN)2011 (Given - Provider: Kareem Hamm RN) 0835 (Given - Provider: Sesar Carlin, RN)2012 (Given - Provider: Sidney Mckeon, VASYL) 0814 (Given - Provider: Marianna Huffman, RN) polyethylene glycol (MIRALAX) packet 17 g(Linked Group 2) 17 g, Oral, EVERY 12 HOURS, First dose (after last modification) on Sun01/23/22 at 2100, Until Discontinued 08 (Not Given - Provider: Rashad Butler RN - Reason: Patient/family refused)2013 (Given - Provider: Kareem Hamm, RN) 0840 (Not Given - Provider: Sesar Carlin, RN - Reason: Patient/family refused)2016 (Hold - Provider: Sidney Mckeon RN - Reason: Contraindicated - Comment: diarrhea incontinence) 0814 (Given - Provider: Marianna Huffman, RN) polyethylene glycol (MIRALAX) packet 17 g(Linked Group 2) 17 g, Per NG tube, EVERY 12 HOURS, First dose (after last modification) on Sun01/23/22 at 2100, Until Discontinued 0830 (See Alternative - Provider: Rashad Butler RN)2013 (See Alternative - Provider: Kareem Hamm RN) 0840 (See Alternative - Provider: Sesar Carlin, RN)2016 (See Alternative - Provider: Sidney Mckeon RN) 0814 (See Alternative - Provider: Marianna Huffman RN) senna (SENOKOT) tablet 8.6 mg(Linked Group 3) 8.6 mg, Oral, DAILY EVERY MORNING, First dose on Kalina 01/19/22 at 1830, Until Discontinued, Hold if BM in last 2 hours. 0829 (Given - Provider: Rashad Butler RN) 0835 (Given - Provider: Sesar Carlin RN) 0814 (Given - Provider: Marianna Huffman, RN) senna (SENOKOT) tablet 8.6 mg(Linked Group 3) 8.6 mg, Per NG tube, DAILY EVERY MORNING, First dose on Kalina 01/19/22 at 1830, Until Discontinued, Hold if BM in last 2 hours. 0829 (See Alternative - Provider: Rashad Butler RN) 0835 (See Alternative - Provider: Sesar Carlin RN) 0814 (See Alternative - Provider: Marianna Huffman RN) PRN Medication Order 01/26/2022 01/27/2022 01/28/2022 acetaminophen (TYLENOL) suppository 650 mg 650 mg, Rectal, EVERY 4 HOURS NEEDED, Starting on 01/22/22 at 1211, Until 01/28/22 at 2010, Oral temp > 100.4 F, Maximum dose of acetaminophen is 4000 mg from all sources in 24 hours. acetaminophen (TYLENOL) tablet 325 mg(Linked Group 4) 325 mg, Oral, EVERY 4 HOURS NEEDED, Starting on Kalina 01/19/22 at 1828, Until 01/28/22 at 2011, Mild Pain, Moderate Pain, Maximum dose of acetaminophen is 4000 mg from all sources in 24 hours. 2011 (See Alternative - Provider: Kareem Hamm RN) acetaminophen (TYLENOL) tablet 325 mg(Linked Group 4) 325 mg, Per NG tube, EVERY 4 HOURS NEEDED, Starting on Kalina 01/19/22 at 1828, Until 01/28/22 at 2011, Mild Pain, Moderate Pain, Maximum dose of acetaminophen is 4000 mg from all sources in 24 hours. 2011 (See Alternative - Provider: Kareem Hamm RN) acetaminophen (TYLENOL) tablet 650 mg(Linked Group 4) 650 mg, Oral, EVERY 4 HOURS NEEDED, Starting on Kalina 01/19/22 at 1828, Until 01/28/22 at 2010, Severe Pain, Oral temp > 99.5, Maximum dose of acetaminophen is 4000 mg from all sources in 24 hours. 2011 (Given - Provider: Kareem Hamm RN - Comment: 99.9 temp) acetaminophen (TYLENOL) tablet 650 mg(Linked Group 4) 650 mg, Per NG tube, EVERY 4 HOURS NEEDED, Starting on Kalina 01/19/22 at 1828, Until 01/28/22 at 2010, Severe Pain, Oral temp > 99.5, Maximum dose of acetaminophen is 4000 mg from all sources in 24 hours. 2011 (See Alternative - Provider: Kareem Hamm RN) bisacodyl (DULCOLAX) suppository 10 mg 10 mg, Rectal, DAILY NEEDED, Starting on Sun01/23/22 at 1519, Until 01/28/22 at 2010, Constipation 2nd Line calcium carbonate antacid tablet 1,296 mg 1,296 mg (2 tablet), Oral, 4 TIMES DAILY NEEDED, Starting on Sun01/23/22 at 1517, Until 01/28/22 at 2010, Indigestion hydrALAZINE (APRESOLINE) injection 10 mg(Linked Group 5) 10 mg, Intravenous, EVERY 1 HOUR NEEDED, Starting on Sun01/25/22 at 0105, Until 01/28/22 at 2010, SBP > 160 mmHg, Systolic Blood Pressure greater than 160 mm Hg, Use as initial dose. Higher dose may be administered if lower dose was previously documented as ineffective 10 minutes after administration and did not result in adverse effects (HR>90) hydrALAZINE (APRESOLINE) injection 20 mg(Linked Group 5) 20 mg, Intravenous, EVERY 1 HOUR NEEDED, Starting on Sun01/25/22 at 0105, Until 01/28/22 at 2010, SBP > 160 mmHg, Systolic Blood Pressure greater than 160 mm Hg, Higher dose may be administered if lower dose was previously documented as ineffective 10 minutes after administration and did not result in adverse effects (HR>90). Decrease back to lower dose if patient has adverse effects, or no PRN used in previous 3 hours labetalol (NORMODYNE) injection 10 mg(Linked Group 6) 10 mg, Intravenous, EVERY 1 HOUR NEEDED, Starting on Sun01/25/22 at 0105, Until Sun01/28/22 at 2010, SBP > 160 mmHg with HR >60 bpm, Use as initial dose. Higher dose may be administered if lower dose was previously documented as ineffective 10 minutes after administration and did not result in adverse effects (HR<60) For vials: labetalol should be treated as a SINGLE USE VIAL. Discard remaining contents after one use. labetalol (NORMODYNE) injection 20 mg(Linked Group 6) 20 mg, Intravenous, EVERY 1 HOUR NEEDED, Starting on Sun01/25/22 at 0105, Until Sun01/28/22 at 2010, SBP > 160 mmHg with HR >60 bpm, Higher dose may be administered if lower dose was previously documented as ineffective 10 minutes after administration and did not result in adverse effects (HR<60). Decrease back to lower dose if patient has adverse effects, or no PRN used in previous 3 hours For vials: labetalol should be treated as a SINGLE USE VIAL. Discard remaining contents after one use. Linked Groups Order Group 1: aspirin chewable tablet 81 mgJump to med 81 mg, Oral, DAILY, First dose (after last modification) on Sun01/24/22 at 0930, Until Discontinued
May begin use of chewable aspirin when patient passes swallow test.
Or aspirin suppository 300 mgJump to med 300 mg, Rectal, DAILY, First dose (after last modification) on Sun01/24/22 at 0930, Until Discontinued
Use suppository until patient passes swallow test.
Group 2: polyethylene glycol (MIRALAX) packet 17 gJump to med 17 g, Oral, EVERY 12 HOURS, First dose (after last modification) on Sun01/23/22 at 2100, Until Discontinued Or polyethylene glycol (MIRALAX) packet 17 gJump to med 17 g, Per NG tube, EVERY 12 HOURS, First dose (after last modification) on Sun01/23/22 at 2100, Until Discontinued Group 3: senna (SENOKOT) tablet 8.6 mgJump to med 8.6 mg, Oral, DAILY EVERY MORNING, First dose on Sun01/19/22 at 1830, Until Discontinued
Hold if BM in last 2 hours.
Or senna (SENOKOT) tablet 8.6 mgJump to med 8.6 mg, Per NG tube, DAILY EVERY MORNING, First dose on Kalina 01/19/22 at 1830, Until Discontinued
Hold if BM in last 2 hours.
Group 4: acetaminophen (TYLENOL) tablet 325 mgJump to med 325 mg, Oral, EVERY 4 HOURS NEEDED, Starting on Kalina 01/19/22 at 1828, Until 01/28/22 at 2010, Mild Pain, Moderate Pain
Maximum dose of acetaminophen is 4000 mg from all sources in 24 hours.
Or acetaminophen (TYLENOL) tablet 325 mgJump to med 325 mg, Per NG tube, EVERY 4 HOURS NEEDED, Starting on Kalina 01/19/22 at 1828, Until 01/28/22 at 2010, Mild Pain, Moderate Pain
Maximum dose of acetaminophen is 4000 mg from all sources in 24 hours.
Or acetaminophen (TYLENOL) tablet 650 mgJump to med 650 mg, Oral, EVERY 4 HOURS NEEDED, Starting on Kalina 01/19/22 at 1828, Until 01/28/22 at 2010, Severe Pain, Oral temp > 99.5
Maximum dose of acetaminophen is 4000 mg from all sources in 24 hours.
Or acetaminophen (TYLENOL) tablet 650 mgJump to med 650 mg, Per NG tube, EVERY 4 HOURS NEEDED, Starting on Kalina 01/19/22 at 1828, Until 01/28/22 at 2010, Severe Pain, Oral temp > 99.5
Maximum dose of acetaminophen is 4000 mg from all sources in 24 hours.
Group 5: hydrALAZINE (APRESOLINE) injection 10 mgJump to med 10 mg, Intravenous, EVERY 1 HOUR NEEDED, Starting on Sun01/25/22 at 0105, Until 01/28/22 at 2010, SBP > 160 mmHg, Systolic Blood Pressure greater than 160 mm Hg
Use as initial dose. Higher dose may be administered if lower dose was previously documented as ineffective 10 minutes after administration and did not result in adverse effects (HR>90)
Or hydrALAZINE (APRESOLINE) injection 20 mgJump to med 20 mg, Intravenous, EVERY 1 HOUR NEEDED, Starting on Sun01/25/22 at 0105, Until 01/28/22 at 2010, SBP > 160 mmHg, Systolic Blood Pressure greater than 160 mm Hg
Higher dose may be administered if lower dose was previously documented as ineffective 10 minutes after administration and did not result in adverse effects (HR>90). Decrease back to lower dose if patient has adverse effects, or no PRN used in previous 3 hours
Group 6: labetalol (NORMODYNE) injection 10 mgJump to med 10 mg, Intravenous, EVERY 1 HOUR NEEDED, Starting on Sun01/25/22 at 0105, Until 01/28/22 at 2010, SBP > 160 mmHg with HR >60 bpm
Use as initial dose. Higher dose may be administered if lower dose was previously documented as ineffective 10 minutes after administration and did not result in adverse effects (HR<60) For vials: labetalol should be treated as a SINGLE USE VIAL. Discard remaining contents after one use.
Or labetalol (NORMODYNE) injection 20 mgJump to med 20 mg, Intravenous, EVERY 1 HOUR NEEDED, Starting on Sun01/25/22 at 0105, Until 01/28/22 at 2010, SBP > 160 mmHg with HR >60 bpm
Higher dose may be administered if lower dose was previously documented as ineffective 10 minutes after administration and did not result in adverse effects (HR<60). Decrease back to lower dose if patient has adverse effects, or no PRN used in previous 3 hours For vials: labetalol should be treated as a SINGLE USE VIAL. Discard remaining contents after one use.
Care Teams (unrecognized sec tion and content) [employer] Relationship Specialty Start Date End Date Tripp Shahid MD [address] [place], [place] [id number] PCP - General Family Medicine 01/23/22 Team Status: Active Member Role Status Dates Dr. Errol Shahid MD Family Provider Active Dr. Errol Shahid MD Primary Care Provider Activ e Team Status: Inactive Member Role Status Dates Dr. Errol Shahid MD Primary Care Provider Activ e Dr. Hitesh Cortes MD Admit Provider, Attending Provid er Active Team Status: Active Member Role Status Dates Dr. Errol Shahid MD Primary Care Provider Activ Vidhya MILLAN MD Attending Provider, Referring Provider Active Team Status: Inactive Member Role Status Dates Dr. Errol Shahid MD Primary Care Provider Activ e Dr. Edouard Grayson MD Attending Provider Active Team Status: Inactive Member Role Status Dates Dr. Errol Shahid MD Primary Care Provider Activ e Edouard MILLAN MD Attending Provider Active Team Status: Active Member Role Status Dates Dr. Errol Shahid MD Primary Care Provider Activ navya Viveros MD Emergency Provider Active Dr. Chasity Huffman MD Admit Provider, Referring Provider, Other Provider Active Dr. Helene Khan MD Other Provider Active Dr. Jim Sanon DO Attending Provider Active Team Status: Active Member Role Status Dates Dr. Errol Shahid MD Primary Care Provider Nayeli Viveros MD Emergency Provider Active Dr. Chasity Huffman MD Admit Provider, Referring Provider, Other Provider Active Dr. Helene Khan MD Attending Provider, Other Prov ider Active Team Status: Active Member Role Status Dates Dr. Errol Shahid MD Primary Care Provider Nayeli Viveros MD Emergency Provider Active Dr. Chasity Huffman MD Admit Provider, Referring Provider, Other Provider Active Dr. Stefano Palmer MD Attending Provider, Other Provider Active Dr. Helene Khan MD Other Provider Active Team Status: Active Member Role Status Dates Dr. Errol Shahid MD Primary Care Provider Activ e Dr. Jim Sanon DO Attending Provider Active Team Status: Active Member Role Status Dates Dr. Errol Shahid MD Primary Care Provider Activ navya Viveros MD Emergency Provider Active Dr. Chasity Huffman MD Admit Provider, Referring Provider, Other Provider Active Dr. Stefano Palmer MD Other Provider Active Dr. Helene Khan MD Other Provider Active Dr. Jim Sanon DO Attending Provider Active Team Status: Active Member Role Status Dates Dr. Errol Shaihd MD Primary Care Provider Activ Dandre MILLAN MD Attending Provider Active Team Status: Inactive Member Role Status Dates Dr. Errol Shahid MD Primary Care Provider Activ navya Viveros MD Emergency Provider Active Dr. Chasity Huffman MD Admit Provider, Referring Provider, Other Provider Active Dr. Stefano Palmer MD Attending Provider Active Dr. Helene Khan MD Other Provider Active Team Status: Active Member Role Status Dates Dr. Errol Shahid MD Primary Care Provider Activ navya Viveros MD Emergency Provider Active Dr. Chasity Huffman MD Admit Provider, Other Provider Active Dr. Helene Khan MD Attending Provider, Other Prov ider Active Team Status: Active Member Role Status Dates Dr. Errol Shahid MD Primary Care Provider Activ navya Viveros MD Emergency Provider Active Dr. Chasity Huffman MD Admit Provider, Other Provider Active Dr. Stefano Palmer MD Attending Provider, Other Provider Active Dr. Helene Khan MD Other Provider Active Team Status: Active Member Role Status Dates Dr. Errol Shahid MD Primary Care Provider Activ e Dr. Jim Sanon DO Attending Provider Active Dr. Stefano Palmer MD Referring Provider Active Team Status: Inactive Member Role Status Dates Dr. Errol Shahid MD Primary Care Provider Activ e Edouard MILLAN MD Attending Provider, Referring Pr ovider Active Team Status: Active Member Role Status Dates Dr. Tripp Shahid MD Family Provider Active Dr. Tripp Shahid MD Primary Care Provider Acti ve Team Status: Inactive Member Role Status Dates Dr. Tripp Shahid MD Primary Care Provider Acti ve Edouard MILLAN MD Attending Provider Active Team Status: Active Member Role Status Dates Dr. Tripp Shahid MD Primary Care Provider Acti ve Edouard MILLAN MD Attending Provider, Referring Pr ovider Active Team Status: Inactive Member Role Status Dates Dr. Tripp Shahid MD Primary Care Provider Acti ve Edouard MILLAN MD Attending Provider, Referring Pr ovider Active Team Status: Active Member Role Status Dates Dr. Tripp Shahid MD Family Provider Active Dr. Edouard Grayson MD Primary Care Provider Active Team Status: Inactive Member Role Status Dates Dr. Edouard Grayson MD Primary Care Provider Active Start: March 22, 2024 End: March 26, 2024 Dr. Compa Martinez DO Emergency Provider Active Start: March 22, 2024 End: March 26, 2024 Dr. Chasity Huffman MD Admit Provider Active St art: March 22, 2024 End: March 26, 2024 Dr. Chasity Huffman MD Other Provider Active St art: March 22, 2024 End: March 26, 2024 Dr. Catarino Aguilar DO Attending Provider Active Start: March 22, 2024 End: March 26, 2024 Team Status: Active Member Role Status Dates Dr. Edouard Grayson MD Primary Care Provider Active Start: March 23, 2024 Dr. Compa Martinez DO Emergency Provider Active Start: March 23, 2024 Dr. Chasity Huffman MD Admit Provider Active St art: March 23, 2024 Dr. Chasity Huffman MD Other Provider Active St art: March 23, 2024 Dr. Catarino Aguilar DO Attending Provider Active Start: March 23, 2024 Dr. Catarino Aguilar DO Other Provider Active S tart: March 23, 2024 Team Status: Active Member Role Status Dates Dr. Edouard Grayson MD Primary Care Provider Active Start: March 24, 2024 Dr. Compa Martinez DO Emergency Provider Active Start: March 24, 2024 Dr. Chasity Huffman MD Admit Provider Active St art: March 24, 2024 Dr. Chasity Huffman MD Other Provider Active St art: March 24, 2024 Dr. Catarino Aguilar DO Attending Provider Active Start: March 24, 2024 Dr. Catarino Aguilar DO Other Provider Active S tart: March 24, 2024 Team Status: Active Member Role Status Dates Dr. Edouard Grayson MD Primary Care Provider Active Start: March 25, 2024 Dr. Compa Martinez DO Emergency Provider Active Start: March 25, 2024 Dr. Chasity Huffman MD Admit Provider Active St art: March 25, 2024 Dr. Chasity Huffman MD Other Provider Active St art: March 25, 2024 Dr. Catarino Aguilar DO Attending Provider Active Start: March 25, 2024 Dr. Catarino Aguilar DO Other Provider Active S tart: March 25, 2024 Team Status: Active Member Role Status Dates Dr. Edouard Grayson MD Primary Care Provider Active Start: March 26, 2024 Dr. Compa Martinez DO Emergency Provider Active Start: March 26, 2024 Dr. Chasity Huffman MD Admit Provider Active St art: March 26, 2024 Dr. Chasity Huffman MD Other Provider Active St art: March 26, 2024 Dr. Catarino Aguilar DO Attending Provider Active Start: March 26, 2024 Dr. Catarino Aguilar DO Other Provider Active S tart: March 26, 2024 Team Status: Active Member Role Status Dates Dr. Edouard Grayson MD Primary Care Provider Active Start: March 31, 2024 Edouard MILLAN MD Attending Provider Active Start: March 31, 2024 Team Status: Active Member Role Status Dates Dr. Edouard Grayson MD Primary Care Provider Active Start: April 04, 2024 Edouard MILLAN MD Attending Provider Active Start: April 04, 2024 Team Status: Active Member Role Status Dates Dr. Edouard Grayson MD Primary Care Provider Active Start: April 11, 2024 Edouard MILLAN MD Attending Provider Active Start: April 11, 2024 Team Status: Active Member Role Status Dates Dr. Edouard Grayson MD Primary Care Provider Active Start: April 21, 2024 Edouard MILLAN MD Attending Provider Active Start: April 21, 2024 Team Status: Inactive Member Role Status Dates Dr. Edouard Grayson MD Primary Care Provider Active Start: June 30, 2024 End: June 30, 2024 Edouard MILLAN MD Attending Provider Active Start: June 30, 2024 End: June 30, 2024 Edouard MILLAN MD Referring Provider Active Start: June 30, 2024 End: June 30, 2024 FOR RECORDS PERTAINING TO PATIENTS WHO ARE OR HAVE BEEN ENROLLED IN A CHEMICAL DEPENDENCY/SUBSTANCEABUSE PROGRAM, SOME INFORMATION MAY BE OMITTED. This clinical summary was aggregated from multiple sources. Caution should be exercised in using it in the provision of clinical care. This summary normalizes information from multiple sources, and as a consequence, information in this document may materially change the coding, format and clinical context of patient data. In addition, data may be omitted in some cases. CLINICAL DECISIONS SHOULD BE BASED ON THE PRIMARY CLINICAL RECORDS. [facility]. provides no warranty or guarantee of the accuracy or completeness of information in this document.
[2024-09-29 08:52] LABS: Hematocrit 38.3 % (37-47); Hemoglobin 12.6 g/dL (12.0-15.0); Mean Corp Hgb Conc 32.9 g/dL (32-36); Mean Corpuscular Volume 92.7 fL (81-99); Mean Platelet Vol. 9.8 fl (6.2-12.0); Platelet Count 315 K/mm3 (150-450); RBC Distribution Width CV 13.2 % (11.6-14.6); RBC Distribution Width SD 44.8 fl (35.1-43.9); Red Blood Count 4.13 M/mm3 (4.2-5.4); White Blood Count 11.7 K/mm3 (4.4-11.0)
[2024-09-29 09:26] LABS: Anion Gap 10 (5-15); BUN 32 mg/dL (4-19); BUN/Creat Ratio 35.4 RATIO (10-20); Calcium,Total 9.4 mg/dL (7.6-11.0); Carbon Dioxide 23.9 mmol/L (21.0-32.0); Chloride 106 mmol/L (98-108); Ferritin 153 ng/mL (22-378); Glucose 101 mg/dL (70-99); Potassium 4.0 mmol/L (3.3-5.1)
== END ==
LOC: OLS.WCC 04:00
PROVIDERS: PCP Family Medicine; Referring Provider Family Medicine; Visit Provider Family Medicine
DX: D50.8 Other iron deficiency anemias (principal); R53.83 Other fatigue
CPT/HCPCS: 36415; 80048; 82728; 85027

== ENCOUNTER → 2024-12-30 05:00 | Outpatient (REF) | payer MEDICARE, OTHER, SELFPAY ==
--- OUTSIDE RECORDS SUMMARY | 2024-12-30 03:58 | XMS RPT_ITS | CCD ---
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 Errol Shahid Primary Care Provider Dr. Mahamed Blackwell Attending Provider Dr. Errol Meyers Referring Provider [phone] Dr. Errol Shahid Primary Care Provider [phone] Dr. Errol Shahid Referring Provider Dr. Franco [...] Dr. Coy Story Attending Provider [phone] Dr. Maruo Davis Referring Provider PROVIDER, UNKNOWN Attending Unavailable [...] Provider Jeff EASON, Dr. Toribio Other Provider Edouard Grayson MD Attending Provider Unavailable Kenan BOGGS, Edouard Patterson Referring Provider Unavailable Grayson, Edouard K Primary Care Unavailable Grayson OLS, Edouard K Attending Unavailable Grayson, Edouard K Primary Care Unavailable Grayson OLS, Edouard K Attending Unavailable Grayson, Edouard K Primary Care Unavailable Grayson OLS, Edouard K Attending Unavailable Grayson, Edouard K Primary Care Unavailable Grayson OLS, Edouard Patterson Attending Unavailable Grayson, Edouard K Primary Care Unavailable Chasity Huffman Admitting Unavailable Chasity Huffman Consulting Unavailable Catarino Aguilar Attending Unavailable TerCatarino newman Consulting Unavailable Chasity Huffman Attending Unavailable Grayson, Edouard K Primary Care Unavailable Grayson OLS, Edouard K Attending Unavailable Grayson OLS, Edouard K Referring Unavailable Grayson, Edouard K Primary Care Unavailable Grayson OLS, Edouard K Attending Unavailable Grayson, Edouard K Primary Care Unavailable Grayson OLS, Edouard K Attending Unavailable Grayson OLS, Edouard K Referring Unavailable Grayson, Edouard K Attending [facility] Grayson OLS, Edouard K Attending Un[facility] Grayson, Edouard K Primary Care Unavailable Chasity Huffman Admitting Unavailable Chasity Huffman Consulting Unavailable Catarino Aguilar Attending Unavailable Grayson OLS, Edouard Patterson Attending Unavailable Grayson, Edouard K Primary Care Unavailable Allergies Allergy Classification Reported Allergen(s) Allergy Type Date of Onset Reaction(s) Facility (20 sources) Oseltamivir Drug Allergy 2 Unknown [facility] (20 sources) ranolazine Drug Allergy 2 low urine output, rash [facility] (1 source) Oseltamivir Drug Allergy 3 [facility] (1 source) ranolazine Drug Allergy 3 [facility] Medications Current Medications Medication Drug [...] March 26, 2024 11:47am Start: 02-16-2022 End: 01-02-2023 take 1 tablet by mouth twice daily [...] Start: 03-22-2024 take 1 tablet by linda every twelve hours Dexamethasone 4 mg tablet Active 4 mg PO Q12H March 22, 2024 1:00am docusate sodium 100 mg oral capsule (12 sources) Start: 06-14-2021 take 1 capsule by mouth once daily Docusate Sodium (Colace) 100 mg Capsule Active 100 MG PO DAILY June 13, 2021 11:00pm docusate sodium 50 mg / sennosides, nursing home 8.6 mg oral tablet (18 sources) Start: [...] November 27, 2017 2:55pm polyethylene glycol 3350 59539 mg powder for oral solution (1 source) [...] at 50 mL/hr, CO NTINUOUS, Starting on [facility] 01/21/22 at 2100, Until 01/22/22 at [...] was also treated with a heater probe. Deficiency and other anemia (1 source) Other iron deficiency anemias; 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: [Other iron deficiency anemias] Onset: 5 Episodic Diabetes mellitus without complication (12 sources) Impaired [...] fatigue (20 sources) Left hemiparesis; 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: [Weakness] Onset: 5 Episodic Mood disorders (2 sources) Depressive disorder; 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: [Depression] Chronic Mycoses (20 sources) Candidiasis of mouth and esophagus; 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: [Candidal esophagitis] Episodic Comment on above: with suspected esoph agitis Osteoarthritis (13 sources) Osteoarthritis; 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: [Unspecified osteoarthritis, unspecified site] Chronic Osteoporosis (13 sources) Osteoporosis; 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: [Age-related osteoporosis without current pathological fracture] Chronic Other aftercare (16 sources) Drug therapy finding; 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: [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] 11-15-2021 Episodic Other aftercare (2 sources) 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; 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: [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] Onset: 5 Episodic Other [...] sources) Hypoxia; 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: [Hypoxemia] 04-03-2024 Episodic Other nervous system disorders (10 sources) [...] [Encounter for immunization] Onset: 7 01-11-2017 Episodic Other lower respiratory disease (2 sources) Hypoxemia; 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: [Hypoxemia] Onset: 5 Episodic Phlebitis; thrombophlebitis and thromboembolism (1 source) Acute embolism and thrombosis of unspecified deep veins of unspecified lower extremity; 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: [Acute embolism and thrombosis of unspecified deep veins of unspecified lower extremity] Onset: 5 Episodic Residual codes; unclassified (20 sources) History of cardiac catheterization; 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: [Other specified postprocedural states] Onset: 8 11-18-2021 Episodic Comment on above: Mild calcification o f the left main coronary artery. Left anterior descending artery with proximal 30% stenosis in the septal precision machinist with 60% ostial stenosisLeft circumflex artery with [...] Test Name Value Interpretation Reference Range Facility Basic Metabolic Profile (BMP )on 09-29-2024 BUN/CRE 35.4 RATIO High 12-29 [facility] Comment on above: Order Comment: 'TROP ' Serial specimen #1, #2 or #3: 1 Performed By: #### L 501.4020, L500.2500, L100.0100 #### [facility] [address] [place], [address] Calcium [Mass/Vol] 9.4 mg/dL Normal 7.6-11.0 [facility] Comment on above: Order Comment: 'TROP ' Serial specimen #1, #2 or #3: 1 Performed By: #### L 501.4020, L500.2500, L100.0100 #### [facility] [address] [place], [address] Chloride [Moles/Vol] 106 mmol/L Normal 98-108 [facility] Comment on above: Order Comment: 'TROP ' Serial specimen #1, #2 or #3: 1 Performed By: #### L 501.4020, L500.2500, L100.0100 #### [facility] [address] [place], [address] CO2 [Moles/Vol] 23.9 mmol/L Normal 21.0-32.0 [facility] Comment on above: Order Comment: 'TROP ' Serial specimen #1, #2 or #3: 1 Performed By: #### L 501.4020, L500.2500, L100.0100 #### [facility] [address] [place], [address] Creatinine [Mass/Vol] 0.90 mg/dL Normal 0.70-1.20 [facility] Comment on above: Order Comment: 'TROP ' Serial specimen #1, #2 or #3: 1 Performed By: #### L 501.4020, L500.2500, L100.0100 #### [facility] [address] [place], [address] GAP 10 Normal 5-15 [facility] Comment on above: Order Comment: 'TROP ' Serial specimen #1, #2 or #3: 1 Performed By: #### L 501.4020, L500.2500, L100.0100 #### [facility] [address] [place], [address] GFR/1.73 sq M.predicted among non-blacks MDRD (S/P/Bld) [Vol rate/Area] 64 mL/min/{1.73_m2} Normal >60 [facility] Comment on above: Order Comment: 'TROP ' Serial specimen #1, #2 or #3: 1 Result Comment: mL/m in/1.73m2 CKD-EPI Creatinine Equation (2020) Performed By: #### L 501.4020, L500.2500, L100.0100 #### [facility] [address] [place], [address] Glucose [Mass/Vol] 101 mg/dL High 70-99 [facility] Comment on above: Order Comment: 'TROP ' Serial specimen #1, #2 or #3: 1 Performed By: #### L 501.4020, L500.2500, L100.0100 #### [facility] [address] [place], [address] Potassium [Moles/Vol] 4.0 mmol/L Normal 3.3-5.1 [facility] Comment on above: Order Comment: 'TROP ' Serial specimen #1, #2 or #3: 1 Performed By: #### L 501.4020, L500.2500, L100.0100 #### [facility] [address] [place], [address] Sodium [Moles/Vol] 140 mmol/L Normal 133-145 [facility] Comment on above: Order Comment: 'TROP ' Serial specimen #1, #2 or #3: 1 Performed By: #### L 501.4020, L500.2500, L100.0100 #### [facility] [address] [place], [address] Urea nitrogen [Mass/Vol] 32 mg/dL High 4-19 [facility] Comment on above: Order Comment: 'TROP ' Serial specimen #1, #2 or #3: 1 Performed By: #### L 501.4020, L500.2500, L100.0100 #### [facility] [address] [place], [address] CBC-Complete Blood Cnt No Di ffon 09-29-2024 Erythrocyte distribution width (RBC) [Ratio] 13.2 % Normal 11.6-14.6 [facility] Comment on above: Order Comment: 'TROP ' Serial specimen #1, #2 or #3: 1 Performed By: #### L 501.4020, L500.2500, L100.0100 #### [facility] [address] [place], [address] Hematocrit (Bld) [Volume fraction] 38.3 % Normal 37-47 [facility] Comment on above: Order Comment: 'TROP ' Serial specimen #1, #2 or #3: 1 Performed By: #### L 501.4020, L500.2500, L100.0100 #### [facility] [address] [place], [address] Hemoglobin (Bld) [Mass/Vol] 12.6 g/dL Normal 12.0-15.0 [facility] Comment on above: Order Comment: 'TROP ' Serial specimen #1, #2 or #3: 1 Performed By: #### L 501.4020, L500.2500, L100.0100 #### [facility] [address] [place], [address] MCH (RBC) [Entitic mass] 30.5 pg Normal 27.0-32.0 [facility] Comment on above: Order Comment: 'TROP ' Serial specimen #1, #2 or #3: 1 Performed By: #### L 501.4020, L500.2500, L100.0100 #### [facility] [address] [place], [address] MCHC (RBC) [Mass/Vol] 32.9 g/dL Normal 32-36 [facility] Comment on above: Order Comment: 'TROP ' Serial specimen #1, #2 or #3: 1 Performed By: #### L 501.4020, L500.2500, L100.0100 #### [facility] [address] [place], [address] MCV (RBC) [Entitic vol] 92.7 fL Normal 81-99 [facility] Comment on above: Order Comment: 'TROP ' Serial specimen #1, #2 or #3: 1 Performed By: #### L 501.4020, L500.2500, L100.0100 #### [facility] [address] [place], [address] Platelet mean volume (Bld) [Entitic vol] 9.8 fL Normal 6.2-12.0 [facility] Comment on above: Order Comment: 'TROP ' Serial specimen #1, #2 or #3: 1 Performed By: #### L 501.4020, L500.2500, L100.0100 #### [facility] [address] [place], [address] Platelets (Bld) [#/Vol] 315 10*3/uL Normal 150-450 [facility] Comment on above: Order Comment: 'TROP ' Serial specimen #1, #2 or #3: 1 Performed By: #### L 501.4020, L500.2500, L100.0100 #### [facility] [address] [place], [address] RBC (Bld) [#/Vol] 4.13 10*6/uL Low 4.2-5.4 [facility] Comment on above: Order Comment: 'TROP ' Serial specimen #1, #2 or #3: 1 Performed By: #### L 501.4020, L500.2500, L100.0100 #### [facility] [address] [place], [address] RDW SD 44.8 fl High 35.1-43.9 [facility] Comment on above: Order Comment: 'TROP ' Serial specimen #1, #2 or #3: 1 Performed By: #### L 501.4020, L500.2500, L100.0100 #### [facility] [address] [place], [address] WBC (Bld) [#/Vol] 11.7 10*3/uL High 4.4-11.0 [facility] Comment on above: Order Comment: 'TROP ' Serial specimen #1, #2 or #3: 1 Performed By: #### L 501.4020, L500.2500, L100.0100 #### [facility] [address] [place], [address] Ferritinon 09-29-2024 Ferritin [Mass/Vol] 153 ng/mL Normal 22-378 [facility] Comment on above: Order Comment: 'TROP ' Serial specimen #1, #2 or #3: 1 Performed By: #### L 501.4020, L500.2500, L100.0100 #### [facility] [address] [place], [address] Amylaseon 07-17-2024 MELODIE 24 U/L Low 28-100 [facility] Comment on above: Order Comment: 127.1 Performed By: #### L 501.2400, L500.4050, L100.0100 #### [facility] [address] [place], [address] CBC W/Diff, Automatedon 05-0 Absolute Lymph 2.85 X10 3/uL Normal 0.83-4.51 [facility] Comment on above: Order Comment: 127.1 Performed By: #### L 501.2400, L500.4050, L100.0100 #### [facility] [address] [place], [address] Absolute Neut 4.4 X10 3/uL Normal 2.0-7.7 [facility] Comment on above: Order Comment: 127.1 Performed By: #### L 501.2400, L500.4050, L100.0100 #### [facility] [address] [place], [address] Basophils/100 WBC (Bld) 0.8 % Normal 0-1 [facility] Comment on above: Order Comment: 127.1 Performed By: #### L 501.2400, L500.4050, L100.0100 #### [facility] [address] [place], [address] Eosinophils/100 WBC (Bld) 3.7 % Normal 0-5 [facility] Comment on above: Order Comment: 127.1 Performed By: #### L 501.2400, L500.4050, L100.0100 #### [facility] [address] [place], [address] Erythrocyte distribution width (RBC) [Ratio] 15.9 % High 11.6-14.6 [facility] Comment on above: Order Comment: 127.1 Performed By: #### L 501.2400, L500.4050, L100.0100 #### [facility] [address] [place], [address] Hematocrit (Bld) [Volume fraction] 39.6 % Normal 37-47 [facility] Comment on above: Order Comment: 127.1 Performed By: #### L 501.2400, L500.4050, L100.0100 #### [facility] [address] [place], [address] Hemoglobin (Bld) [Mass/Vol] 13.0 g/dL Normal 12.0-15.0 [facility] Comment on above: Order Comment: 127.1 Performed By: #### L 501.2400, L500.4050, L100.0100 #### [facility] [address] [place], [address] IG% 0.300 Normal 0.0-0.9 [facility] Comment on above: Order Comment: 127.1 Result Comment: IG% - Immature Granulocytes (promyelocytes, myelocytes and metamyelocytes) > 1% indicates that a LEFT SHIFT is Present. Performed By: #### L 501.2400, L500.4050, L100.0100 #### [facility] [address] [place], [address] Lymphocytes/100 WBC (Bld) 33.2 % Normal 19-41 [facility] Comment on above: Order Comment: 127.1 Performed By: #### L 501.2400, L500.4050, L100.0100 #### [facility] [address] [place], [address] MCH (RBC) [Entitic mass] 29.5 pg Normal 27.0-32.0 [facility] Comment on above: Order Comment: 127.1 Performed By: #### L 501.2400, L500.4050, L100.0100 #### [facility] [address] [place], [address] MCHC (RBC) [Mass/Vol] 32.8 g/dL Normal 32-36 [facility] Comment on above: Order Comment: 127.1 Performed By: #### L 501.2400, L500.4050, L100.0100 #### [facility] [address] [place], [address] MCV (RBC) [Entitic vol] 89.8 fL Normal 81-99 [facility] Comment on above: Order Comment: 127.1 Performed By: #### L 501.2400, L500.4050, L100.0100 #### [facility] [address] [place], [address] Monocytes/100 WBC (Bld) 10.4 % High 0-10 [facility] Comment on above: Order Comment: 127.1 Performed By: #### L 501.2400, L500.4050, L100.0100 #### [facility] [address] [place], [address] Neutrophils/100 WBC (Bld) 51.6 % Normal 47-70 [facility] Comment on above: Order Comment: 127.1 Performed By: #### L 501.2400, L500.4050, L100.0100 #### [facility] [address] [place], [address] Nucleated RBC (Bld) [#/Vol] 0 10*3/uL Normal 0-5 [facility] Comment on above: Order Comment: 127.1 Performed By: #### L 501.2400, L500.4050, L100.0100 #### [facility] [address] [place], [address] Platelet mean volume (Bld) [Entitic vol] 9.7 fL Normal 6.2-12.0 [facility] Comment on above: Order Comment: 127.1 Performed By: #### L 501.2400, L500.4050, L100.0100 #### [facility] [address] [place], [address] Platelets (Bld) [#/Vol] 272 10*3/uL Normal 150-450 [facility] Comment on above: Order Comment: 127.1 Performed By: #### L 501.2400, L500.4050, L100.0100 #### [facility] [address] [place], [address] RBC (Bld) [#/Vol] 4.41 10*6/uL Normal 4.2-5.4 [facility] Comment on above: Order Comment: 127.1 Performed By: #### L 501.2400, L500.4050, L100.0100 #### [facility] [address] [place], [address] RDW SD 51.5 fl High 35.1-43.9 [facility] Comment on above: Order Comment: 127.1 Performed By: #### L 501.2400, L500.4050, L100.0100 #### [facility] [address] [place], [address] WBC (Bld) [#/Vol] 8.6 10*3/uL Normal 4.4-11.0 [facility] Comment on above: Order Comment: 127.1 Performed By: #### L 501.2400, L500.4050, L100.0100 #### [facility] [address] [place], [address] Comprehensive Metabolic Prof ilon 07-17-2024 Albumin [Mass/Vol] 3.7 g/dL Normal 3.4-4.8 [facility] Comment on above: Order Comment: 127.1 Performed By: #### L 501.2400, L500.4050, L100.0100 #### [facility] [address] [place], [address] Albumin/Globulin [Mass ratio] 1.0 {ratio} Normal 0.9-2.4 [facility] Comment on above: Order Comment: 127.1 Performed By: #### L 501.2400, L500.4050, L100.0100 #### [facility] [address] [place], [address] ALK PHOS 127 U/L High 35-104 [facility] Comment on above: Order Comment: 127.1 Performed By: #### L 501.2400, L500.4050, L100.0100 #### [facility] [address] [place], [address] ALT [Catalytic activity/Vol] 41 U/L High <=34 [facility] Comment on above: Order Comment: 127.1 Performed By: #### L 501.2400, L500.4050, L100.0100 #### [facility] [address] [place], [address] AST [Catalytic activity/Vol] 42 U/L High <=31 [facility] Comment on above: Order Comment: 127.1 Performed By: #### L 501.2400, L500.4050, L100.0100 #### [facility] [address] [place], [address] Bilirubin [Mass/Vol] 0.37 mg/dL Normal 0.00-1.30 [facility] Comment on above: Order Comment: 127.1 Performed By: #### L 501.2400, L500.4050, L100.0100 #### [facility] [address] [place], [address] BUN/CRE 28.4 RATIO High 10-20 [facility] Comment on above: Order Comment: 127.1 Performed By: #### L 501.2400, L500.4050, L100.0100 #### [facility] [address] [place], [address] Calcium [Mass/Vol] 9.6 mg/dL Normal 7.6-11.0 [facility] Comment on above: Order Comment: 127.1 Performed By: #### L 501.2400, L500.4050, L100.0100 #### [facility] [address] [place], [address] Chloride [Moles/Vol] 108 mmol/L Normal 98-108 [facility] Comment on above: Order Comment: 127.1 Performed By: #### L 501.2400, L500.4050, L100.0100 #### [facility] [address] [place], [address] CO2 [Moles/Vol] 19.7 mmol/L Low 21.0-32.0 [facility] Comment on above: Order Comment: 127.1 Performed By: #### L 501.2400, L500.4050, L100.0100 #### [facility] [address] [place], [address] Creatinine [Mass/Vol] 0.89 mg/dL Normal 0.70-1.20 [facility] Comment on above: Order Comment: 127.1 Performed By: #### L 501.2400, L500.4050, L100.0100 #### [facility] [address] [place], [address] GAP 13 Normal 5-15 [facility] Comment on above: Order Comment: 127.1 Performed By: #### L 501.2400, L500.4050, L100.0100 #### [facility] [address] [place], [address] GFR/1.73 sq M.predicted among non-blacks MDRD (S/P/Bld) [Vol rate/Area] 65 mL/min/{1.73_m2} Normal >60 [facility] Comment on above: Order Comment: 127.1 Result Comment: mL/m in/1.73m2 CKD-EPI Creatinine Equation (2020) Performed By: #### L 501.2400, L500.4050, L100.0100 #### [facility] [address] [place], [address] Globulin (S) [Mass/Vol] 3.8 g/dL Normal 2.2-4.2 [facility] Comment on above: Order Comment: 127.1 Performed By: #### L 501.2400, L500.4050, L100.0100 #### [facility] [address] [place], [address] Glucose [Mass/Vol] 121 mg/dL High 70-99 [facility] Comment on above: Order Comment: 127.1 Performed By: #### L 501.2400, L500.4050, L100.0100 #### [facility] [address] [place], [address] Potassium [Moles/Vol] 3.7 mmol/L Normal 3.3-5.1 [facility] Comment on above: Order Comment: 127.1 Performed By: #### L 501.2400, L500.4050, L100.0100 #### [facility] [address] [place], [address] Sodium [Moles/Vol] 140 mmol/L Normal 133-145 [facility] Comment on above: Order Comment: 127.1 Performed By: #### L 501.2400, L500.4050, L100.0100 #### [facility] [address] [place], [address] T PROT 7.4 g/dL Normal 5.9-8.4 [facility] Comment on above: Order Comment: 127.1 Performed By: #### L 501.2400, L500.4050, L100.0100 #### [facility] [address] [place], [address] Urea nitrogen [Mass/Vol] 25 mg/dL High 06-28 [facility] Comment on above: Order Comment: 127.1 Performed By: #### L 501.2400, L500.4050, L100.0100 #### [facility] [address] [place], [address] Anion gap in Serum or Plasma Ordered By: Edouard Grayson on 06-30-2024 Anion gap [Moles/Vol] 11 mmol/L 07-24 [facility] BUN/creatinine ratioOrdered By: Edouard Grayson on 06-30-2024 Urea nitrogen/Creatinine [Mass ratio] 26.9 mg/mg High 12-29 [facility] Basic Metabolic Profile (BMP )on 06-30-2024 BUN/CRE 26.9 RATIO High 12-29 [facility] Comment on above: Order Comment: 127.1 Performed By: #### L 500.4100, L100.0500, L500.2500 #### [facility] [address] [place], [address] GAP 11 Normal 07-24 [facility] Comment on above: Order Comment: 127.1 Performed By: #### L 500.4100, L100.0500, L500.2500 #### [facility] [address] [place], [address] GFR/1.73 sq M.predicted among non-blacks MDRD (S/P/Bld) [Vol rate/Area] 56 mL/min/{1.73_m2} Low >60 [facility] Comment on above: Order Comment: 127.1 Result Comment: mL/m in/1.73m2 CKD-EPI Creatinine Equation (2020) Performed By: #### L 500.4100, L100.0500, L500.2500 #### [facility] [address] [place], [address] CBC-Complete Blood Cnt No Di ffon 06-30-2024 Erythrocyte distribution width (RBC) [Ratio] 18.1 % High 11.6-14.6 [facility] Comment on above: Order Comment: 127.1 Performed By: #### L 500.4100, L100.0500, L500.2500 #### [facility] [address] [place], [address] Hematocrit (Bld) [Volume fraction] 39.1 % Normal 37-47 [facility] Comment on above: Order Comment: 127.1 Performed By: #### L 500.4100, L100.0500, L500.2500 #### [facility] Laboratory [address] [place], [address] Hemoglobin (Bld) [Mass/Vol] 12.6 g/dL Normal 12.0-15.0 [facility] Comment on above: Order Comment: 127.1 Performed By: #### L 500.4100, L100.0500, L500.2500 #### [facility] [address] [place], [address] MCH (RBC) [Entitic mass] 29.4 pg Normal 27.0-32.0 [facility] Comment on above: Order Comment: 127.1 Performed By: #### L 500.4100, L100.0500, L500.2500 #### [facility] [address] [place], [address] MCHC (RBC) [Mass/Vol] 32.2 g/dL Normal 32-36 [facility] Comment on above: Order Comment: 127.1 Performed By: #### L 500.4100, L100.0500, L500.2500 #### [facility] [address] [place], [address] MCV (RBC) [Entitic vol] 91.4 fL Normal 81-99 [facility] Comment on above: Order Comment: 127.1 Performed By: #### L 500.4100, L100.0500, L500.2500 #### [facility] [address] [place], [address] Platelet mean volume (Bld) [Entitic vol] 10.4 fL Normal 6.2-12.0 [facility] Comment on above: Order Comment: 127.1 Performed By: #### L 500.4100, L100.0500, L500.2500 #### [facility] [address] [place], [address] Platelets (Bld) [#/Vol] 270 10*3/uL Normal 150-450 [facility] Comment on above: Order Comment: 127.1 Performed By: #### L 500.4100, L100.0500, L500.2500 #### [facility] [address] [place], [address] RBC (Bld) [#/Vol] 4.28 10*6/uL Normal 4.2-5.4 [facility] Comment on above: Order Comment: 127.1 Performed By: #### L 500.4100, L100.0500, L500.2500 #### [facility] [address] [place], [address] RDW SD 60.2 fl High 35.1-43.9 [facility] Comment on above: Order Comment: 127.1 Performed By: #### L 500.4100, L100.0500, L500.2500 #### [facility] [address] [place], [address] WBC (Bld) [#/Vol] 10.8 10*3/uL Normal 4.4-11.0 [facility] Comment on above: Order Comment: 127.1 Performed By: #### L 500.4100, L100.0500, L500.2500 #### [facility] [address] [place], [address] Calculated very low density lipoprotein (VLDL) cholesterol measurementOrdered By: Edouard Grayson on 06-30-2024 VLDL Cholesterol 35 mg/dL 5-40 [facility] Carbon dioxide, total [Moles /volume] in Central venous bloodOrdered By: Edouard Grayson on 06-30-2024 CO2 [Moles/Vol] 22.9 mmol/L Normal 21.0-32.0 [facility] Comment on above: Order Comment: 127.1 Performed By: #### L 500.4100, L100.0500, L500.2500 #### [facility] [address] [place], [address] Chloride assayOrdered By: Genny Grayson on 06-30-2024 Chloride [Moles/Vol] 106 mmol/L Normal 98-108 [facility] Comment on above: Order Comment: 127.1 Performed By: #### L 500.4100, L100.0500, L500.2500 #### [facility] [address] [place], [address] Erythrocyte distribution wid th (RBC) [Ratio]Ordered By: Edouard Grayson on 06-30-2024 Erythrocyte distribution width (RBC) [Entitic vol] 60.2 fL High 35.1-43.9 [facility] Erythrocyte distribution wid th ratioOrdered By: Edouard Grayson on 06-30-2024 Erythrocyte distribution width (RBC) [Ratio] 18.1 % High 11.6-14.6 [facility] GFR/1.73 sq M.predicted leatha g non-blacks MDRD (S/P/Bld) [Vol rate/Area]Ordered By: Edouard Grayson on 06-30-2024 Estimated GFR (MDRD) Non-Af Amer 56 Low >60 [facility] Comment on above: mL/min/1.73m2 CKD-EP I Creatinine Equation (2020) Hematocrit Auto (Bld) [Volum e fraction]Ordered By: Edouard Grayson on 06-30-2024 Hematocrit (Bld) [Volume fraction] 39.1 % 37-47 [facility] Hemoglobin measurementOrdere d By: Edouard Grayson on 06-30-2024 Hemoglobin (Bld) [Mass/Vol] 12.6 g/dL 12.0-15.0 [facility] LDL calc ser/plasOrdered By: Edouard Grayson on 06-30-2024 LDL Cholesterol, Calculated 93 mg/dL [facility] Comment on above: Oruetmdmnp=698-149 m g/dL & Higher Wiyp=894 mg/dL or greater Lipid Profileon 06-30-2024 CHOL:HDL 5.23 Normal [facility] Comment on above: Order Comment: 127.1 Performed By: #### L 500.4100, L100.0500, L500.2500 #### [facility] [address] [place], [address] Cholesterol in LDL [Mass/Vol] 93 mg/dL Normal [facility] Comment on above: Order Comment: 127.1 Result Comment: Bord ljmsuo=997-394 mg/dL Higher Rvps=320 mg/dL or greater Performed By: #### L 500.4100, L100.0500, L500.2500 #### [facility] [address] [place], [address] Cholesterol in VLDL [Mass/Vol] 35 mg/dL Normal 5-40 [facility] Comment on above: Order Comment: 127.1 Performed By: #### L 500.4100, L100.0500, L500.2500 #### [facility] [address] [place], [place], [id number] MCV (mean corpuscular volume ) determinationOrdered By: Edouard Grayson on 06-30-2024 MCV (RBC) [Entitic vol] 91.4 fL 81-99 [facility] Mean corpuscular hemoglobin (MCH) determinationOrdered By: Edouard Grayson on 06-30-2024 MCH (RBC) [Entitic mass] 29.4 pg 27.0-32.0 [facility] Mean corpuscular hemoglobin concentration (MCHC) determinationOrdered By: Edouard Grayson on 06-30-2024 MCHC (RBC) [Mass/Vol] 32.2 g/dL 32-36 [facility] Mean platelet volume determi nationOrdered By: Edouard Grayson on 06-30-2024 Platelet mean volume (Bld) [Entitic vol] 10.4 fL 6.2-12.0 [facility] Platelet countOrdered By: Genny Grayson on 06-30-2024 Platelets (Bld) [#/Vol] 270 10*3/uL 150-450 [facility] Potassium measurement (mass/ volume)Ordered By: Edouard Grayson on 06-30-2024 Potassium [Moles/Vol] 4.7 mmol/L Normal 3.3-5.1 [facility] Comment on above: Order Comment: 127.1 Performed By: #### L 500.4100, L100.0500, L500.2500 #### [facility] [address] [place], [place], [address] RBC Auto (Bld) [#/Vol]Ordere d By: Edouard Grayson on 06-30-2024 RBC (Bld) [#/Vol] 4.28 10*6/uL 4.2-5.4 [facility] Screening total cholesterol/ high density lipoprotein (HDL) cholesterol ratioOrdered By: Edouard Grayson on 06-30-2024 Cholesterol.total/Lisa sterol in HDL [Mass ratio] 5.23 {ratio} [facility] Serum creatinine measurement (mass/volume)Ordered By: Edouard Grayson on 06-30-2024 Creatinine [Mass/Vol] 1.01 mg/dL Normal 0.70-1.20 [facility] Comment on above: Order Comment: 127.1 Performed By: #### L 500.4100, L100.0500, L500.2500 #### [facility] [address] [place], [place], [address] Serum glucose measurement (m ass/volume)Ordered By: Edouard Grayson on 06-30-2024 Glucose [Mass/Vol] 141 mg/dL High 70-99 [facility] Comment on above: Order Comment: 127.1 Performed By: #### L 500.4100, L100.0500, L500.2500 #### [facility] [address] [place], [place], [id number] Serum or plasma calcium jasmin urement (mass/volume)Ordered By: Edouard Grayson on 06-30-2024 Calcium [Mass/Vol] 9.7 mg/dL Normal 7.6-11.0 [facility] Comment on above: Order Comment: 127.1 Performed By: #### L 500.4100, L100.0500, L500.2500 #### [facility] [address] [place], [place], [address] Serum or plasma cholesterol in HDL measurement (mass/volume)Ordered By: Edouard Grayson on 06-30-2024 Cholesterol in HDL [Mass/Vol] 30 mg/dL Low [facility] Comment on above: National Cholesterol Education [...] By: #### L 500.4100, L100.0500, L500.2500 #### [facility] [address] [place], [address] Serum or plasma cholesterol measurement (mass/volume)Ordered By: Edouard Grayson on 06-30-2024 Cholesterol [Mass/Vol] 158 mg/dL Normal <=200 [facility] Comment on above: Cholesterol level, D esirable <200 mg/dLBorderline high cholesterol 200-239 mg/dLHigh cholesterol >=240 mg/dLRecommendations of the NCEP Adult Treatment Panel for the following risk-cutoff thresholds for the [place] population. Order Comment: 127.1 Result Comment: Chol esterol level, Desirable <200 mg/dL Borderline high cholesterol 200-239 mg/dL High cholesterol >=240 mg/dL Recommendations of the NCEP Adult Treatment Panel for the following risk-cutoff thresholds for the [place] population. Performed By: #### L 500.4100, L100.0500, L500.2500 #### [facility] [address] [place], [address] Serum or plasma urea nitroge n measurement (mass/volume)Ordered By: Edouard Grayson on 06-30-2024 Urea nitrogen [Mass/Vol] 27 mg/dL High 4-19 [facility] Comment on above: Order Comment: 127.1 Performed By: #### L 500.4100, L100.0500, L500.2500 #### [facility] [address] [place], [address] Sodium levelOrdered By: Edouard Grayson on 06-30-2024 Sodium [Moles/Vol] 140 mmol/L Normal 133-145 [facility] Comment on above: Order Comment: 127.1 Performed By: #### L 500.4100, L100.0500, L500.2500 #### [facility] [address] [place], [address] Triglycerides measurementOrd ered By: Edouard Grayson on 06-30-2024 Triglyceride [Mass/Vol] 174 mg/dL Normal [facility] Comment on above: The drugs N-Acetylcy steine [...] By: #### L 500.4100, L100.0500, L500.2500 #### [facility] [address] [place], [address] White blood cell (WBC) count Ordered By: Edouard Grayson on 06-30-2024 WBC (Bld) [#/Vol] 10.8 10*3/uL 4.4-11.0 [facility] CBC-Complete Blood Cnt No Di ffon 04-21-2024 Erythrocyte distribution width (RBC) [Ratio] 21.5 % High 11.6-14.6 [facility] Comment on above: Order Comment: 'TROP ' Serial specimen #1, #2 or #3: 1 Performed By: #### L 501.4020, L500.2500, L100.0100 #### [facility] [address] [place] [place], [address] Hematocrit (Bld) [Volume fraction] 35.8 % Low 37-47 [facility] Comment on above: Order Comment: 'TROP ' Serial specimen #1, #2 or #3: 1 Performed By: #### L 501.4020, L500.2500, L100.0100 #### [facility] [address] [place], [address] Hemoglobin (Bld) [Mass/Vol] 10.7 g/dL Low 12.0-15.0 [facility] Comment on above: Order Comment: 'TROP ' Serial specimen #1, #2 or #3: 1 Performed By: #### L 501.4020, L500.2500, L100.0100 #### [facility] [address] [place], [address] MCH (RBC) [Entitic mass] 24.9 pg Low 27.0-32.0 [facility] Comment on above: Order Comment: 'TROP ' Serial specimen #1, #2 or #3: 1 Performed By: #### L 501.4020, L500.2500, L100.0100 #### [facility] [address] [place], [address] MCHC (RBC) [Mass/Vol] 29.9 g/dL Low 32-36 [facility] Comment on above: Order Comment: 'TROP ' Serial specimen #1, #2 or #3: 1 Performed By: #### L 501.4020, L500.2500, L100.0100 #### [facility] [address] [place], [address] MCV (RBC) [Entitic vol] 83.3 fL Normal 81-99 [facility] Comment on above: Order Comment: 'TROP ' Serial specimen #1, #2 or #3: 1 Performed By: #### L 501.4020, L500.2500, L100.0100 #### [facility] [address] [place], [address] Platelet mean volume (Bld) [Entitic vol] 9.3 fL Normal 6.2-12.0 [facility] Comment on above: Order Comment: 'TROP ' Serial specimen #1, #2 or #3: 1 Performed By: #### L 501.4020, L500.2500, L100.0100 #### [facility] [address] [place], [address] Platelets (Bld) [#/Vol] 502 10*3/uL High 150-450 [facility] Comment on above: Order Comment: 'TROP ' Serial specimen #1, #2 or #3: 1 Performed By: #### L 501.4020, L500.2500, L100.0100 #### [facility] [address] [place], [address] RBC (Bld) [#/Vol] 4.30 10*6/uL Normal 4.2-5.4 [facility] Comment on above: Order Comment: 'TROP ' Serial specimen #1, #2 or #3: 1 Performed By: #### L 501.4020, L500.2500, L100.0100 #### [facility] [address] [place], [address] RDW SD 62.3 fl High 35.1-43.9 [facility] Comment on above: Order Comment: 'TROP ' Serial specimen #1, #2 or #3: 1 Performed By: #### L 501.4020, L500.2500, L100.0100 #### [facility] [address] [place], [address] WBC (Bld) [#/Vol] 11.2 10*3/uL High 4.4-11.0 [facility] Comment on above: Order Comment: 'TROP ' Serial specimen #1, #2 or #3: 1 Performed By: #### L 501.4020, L500.2500, L100.0100 #### [facility] [address] [place], [address] Erythrocyte distribution wid th (RBC) [Ratio]Ordered By: Edouard Grayson on 04-21-2024 Erythrocyte distribution width (RBC) [Entitic vol] 62.3 fL High 35.1-43.9 [facility] Erythrocyte distribution wid th ratioOrdered By: Edouard Grayson on 04-21-2024 Erythrocyte distribution width (RBC) [Ratio] 21.5 % High 11.6-14.6 [facility] Hematocrit Auto (Bld) [Volum e fraction]Ordered By: Edouard Grayson on 04-21-2024 Hematocrit (Bld) [Volume fraction] 35.8 % Low 37-47 [facility] Hemoglobin measurementOrdere d By: Edouard Grayson on 04-21-2024 Hemoglobin (Bld) [Mass/Vol] 10.7 g/dL Low 12.0-15.0 [facility] MCV (mean corpuscular volume ) determinationOrdered By: Edouard Grayson on 04-21-2024 MCV (RBC) [Entitic vol] 83.3 fL 81-99 [facility] Mean corpuscular hemoglobin (MCH) determinationOrdered By: Edouard Grayson on 04-21-2024 MCH (RBC) [Entitic mass] 24.9 pg Low 27.0-32.0 [facility] Mean corpuscular hemoglobin concentration (MCHC) determinationOrdered By: Edouard Grayson on 04-21-2024 MCHC (RBC) [Mass/Vol] 29.9 g/dL Low 32-36 [facility] Mean platelet volume determi nationOrdered By: Edouard Grayson on 04-21-2024 Platelet mean volume (Bld) [Entitic vol] 9.3 fL 6.2-12.0 [facility] Platelet countOrdered By: Genny Grayson on 04-21-2024 Platelets (Bld) [#/Vol] 502 10*3/uL High 150-450 [facility] RBC Auto (Bld) [#/Vol]Ordere d By: Edouard Grayson on 04-21-2024 RBC (Bld) [#/Vol] 4.30 10*6/uL 4.2-5.4 [facility] White blood cell (WBC) count Ordered By: Edouard Grayson on 04-21-2024 WBC (Bld) [#/Vol] 11.2 10*3/uL High 4.4-11.0 [facility] Absolute neutrophil countOrd ered By: Edouard Grayson on 04-11-2024 Neutrophils (Bld) [#/Vol] 7.5 10*3/uL 2.0-7.7 [facility] Basophil percentageOrdered B y: Edouard Grayson on 04-11-2024 Basophils/100 WBC (Bld) 0.3 % 0-1 [facility] CBC W/Diff, Automatedon 03-14 Absolute Lymph 3.05 X10 3/uL Normal 0.83-4.51 [facility] Comment on above: Order Comment: 'TROP ' Serial specimen #1, #2 or #3: 1 Performed By: #### L 501.9447, L500.2500, L100.0100 #### [facility] [address] [place], [address] Absolute Neut 7.5 X10 3/uL Normal 2.0-7.7 [facility] Comment on above: Order Comment: 'TROP ' Serial specimen #1, #2 or #3: 1 Performed By: #### L 501.4020, L500.2500, L100.0100 #### [facility] [address] [place], [address] Basophils/100 WBC (Bld) 0.3 % Normal 0-1 [facility] Comment on above: Order Comment: 'TROP ' Serial specimen #1, #2 or #3: 1 Performed By: #### L 501.4020, L500.2500, L100.0100 #### [facility] [address] [place], [address] Eosinophils/100 WBC (Bld) 2.2 % Normal 0-5 [facility] Comment on above: Order Comment: 'TROP ' Serial specimen #1, #2 or #3: 1 Performed By: #### L 501.4020, L500.2500, L100.0100 #### [facility] [address] [place], [address] Erythrocyte distribution width (RBC) [Ratio] 18.6 % High 11.6-14.6 [facility] Comment on above: Order Comment: 'TROP ' Serial specimen #1, #2 or #3: 1 Performed By: #### L 501.4020, L500.2500, L100.0100 #### [facility] [address] [place], [address] Hematocrit (Bld) [Volume fraction] 28.0 % Low 37-47 [facility] Comment on above: Order Comment: 'TROP ' Serial specimen #1, #2 or #3: 1 Performed By: #### L 501.4020, L500.2500, L100.0100 #### [facility] [address] [place], [address] Hemoglobin (Bld) [Mass/Vol] 8.5 g/dL Low 12.0-15.0 [facility] Comment on above: Order Comment: 'TROP ' Serial specimen #1, #2 or #3: 1 Performed By: #### L 501.4020, L500.2500, L100.0100 #### [facility] [address] [place], [address] IG% 0.600 Normal 0.0-0.9 [facility] Comment on above: Order Comment: 'TROP ' Serial specimen #1, #2 or #3: 1 Result Comment: IG% - Immature Granulocytes (promyelocytes, myelocytes and metamyelocytes) > 1% indicates that a LEFT SHIFT is Present. Performed By: #### L 501.4020, L500.2500, L100.0100 #### [facility] [address] [place], [address] Lymphocytes/100 WBC (Bld) 25.8 % Normal 19-41 [facility] Comment on above: Order Comment: 'TROP ' Serial specimen #1, #2 or #3: 1 Performed By: #### L 501.4020, L500.2500, L100.0100 #### [facility] [address] [place], [address] MCH (RBC) [Entitic mass] 23.7 pg Low 27.0-32.0 [facility] Comment on above: Order Comment: 'TROP ' Serial specimen #1, #2 or #3: 1 Performed By: #### L 501.4020, L500.2500, L100.0100 #### [facility] [address] [place], [address] MCHC (RBC) [Mass/Vol] 30.4 g/dL Low 32-36 [facility] Comment on above: Order Comment: 'TROP ' Serial specimen #1, #2 or #3: 1 Performed By: #### L 501.4020, L500.2500, L100.0100 #### [facility] [address] [place], [address] MCV (RBC) [Entitic vol] 78.2 fL Low 81-99 [facility] Comment on above: Order Comment: 'TROP ' Serial specimen #1, #2 or #3: 1 Performed By: #### L 501.4020, L500.2500, L100.0100 #### [facility] [address] [place], [address] Monocytes/100 WBC (Bld) 7.5 % Normal 0-10 [facility] Comment on above: Order Comment: 'TROP ' Serial specimen #1, #2 or #3: 1 Performed By: #### L 501.4020, L500.2500, L100.0100 #### [facility] [address] [place], [address] Neutrophils/100 WBC (Bld) 63.6 % Normal 47-70 [facility] Comment on above: Order Comment: 'TROP ' Serial specimen #1, #2 or #3: 1 Performed By: #### L 501.4020, L500.2500, L100.0100 #### [facility] [address] [place], [address] Nucleated RBC (Bld) [#/Vol] 0 10*3/uL Normal 0-5 [facility] Comment on above: Order Comment: 'TROP ' Serial specimen #1, #2 or #3: 1 Performed By: #### L 501.4020, L500.2500, L100.0100 #### [facility] [address] [place], [address] Platelet mean volume (Bld) [Entitic vol] 9.7 fL Normal 6.2-12.0 [facility] Comment on above: Order Comment: 'TROP ' Serial specimen #1, #2 or #3: 1 Performed By: #### L 501.4020, L500.2500, L100.0100 #### [facility] [address] [place], [address] Platelets (Bld) [#/Vol] 345 10*3/uL Normal 150-450 [facility] Comment on above: Order Comment: 'TROP ' Serial specimen #1, #2 or #3: 1 Performed By: #### L 501.4020, L500.2500, L100.0100 #### [facility] [address] [place], [address] RBC (Bld) [#/Vol] 3.58 10*6/uL Low 4.2-5.4 [facility] Comment on above: Order Comment: 'TROP ' Serial specimen #1, #2 or #3: 1 Performed By: #### L 501.4020, L500.2500, L100.0100 #### [facility] [address] [place], [address] RDW SD 50.9 fl High 35.1-43.9 [facility] Comment on above: Order Comment: 'TROP ' Serial specimen #1, #2 or #3: 1 Performed By: #### L 501.4020, L500.2500, L100.0100 #### [facility] [address] [place], [address] WBC (Bld) [#/Vol] 11.8 10*3/uL High 4.4-11.0 [facility] Comment on above: Order Comment: 'TROP ' Serial specimen #1, #2 or #3: 1 Performed By: #### L 501.4020, L500.2500, L100.0100 #### [facility] [address] [place], [address] Eosinophil percentageOrdered By: Edouard Grayson on 04-11-2024 Eosinophils/100 WBC (Bld) 2.2 % 0-5 [facility] Erythrocyte distribution wid th (RBC) [Ratio]Ordered By: Edouard Grayson on 04-11-2024 Erythrocyte distribution width (RBC) [Entitic vol] 50.9 fL High 35.1-43.9 [facility] Erythrocyte distribution wid th ratioOrdered By: Edouard Grayson on 04-11-2024 Erythrocyte distribution width (RBC) [Ratio] 18.6 % High 11.6-14.6 [facility] Hematocrit Auto (Bld) [Volum e fraction]Ordered By: Edouard Grayson on 04-11-2024 Hematocrit (Bld) [Volume fraction] 28.0 % Low 37-47 [facility] Hemoglobin measurementOrdere d By: Edouard Grayson on 04-11-2024 Hemoglobin (Bld) [Mass/Vol] 8.5 g/dL Low 12.0-15.0 [facility] Immature granulocytes/100 WB C Auto (Bld)Ordered By: Edouard Grayson on 04-11-2024 Immature granulocytes/100 WBC (Bld) 0.600 % 0.0-0.9 [facility] Comment on above: IG% - Immature Granu locytes (promyelocytes, myelocytes and metamyelocytes) > 1% indicates that a LEFT SHIFT is Present. Lymphocytes Auto (Unsp spec) [#/Vol]Ordered By: Edouard Grayson on 04-11-2024 Lymphocytes (Bld) [#/Vol] 3.05 10*3/uL 0.83-4.51 [facility] Lymphocytes/100 WBC Auto (Un sp spec)Ordered By: Edouard Grayson on 04-11-2024 Lymphocytes/100 WBC (Bld) 25.8 % 19-41 [facility] MCV (mean corpuscular volume ) determinationOrdered By: Edouard Grayson on 04-11-2024 MCV (RBC) [Entitic vol] 78.2 fL Low 81-99 [facility] Mean corpuscular hemoglobin (MCH) determinationOrdered By: Edouard Grayson on 04-11-2024 MCH (RBC) [Entitic mass] 23.7 pg Low 27.0-32.0 [facility] Mean corpuscular hemoglobin concentration (MCHC) determinationOrdered By: Edouard Grayson on 04-11-2024 MCHC (RBC) [Mass/Vol] 30.4 g/dL Low 32-36 [facility] Mean platelet volume determi nationOrdered By: Edouard Grayson on 04-11-2024 Platelet mean volume (Bld) [Entitic vol] 9.7 fL 6.2-12.0 [facility] Monocyte percentageOrdered B y: Edouard Grayson on 04-11-2024 Monocytes/100 WBC (Bld) 7.5 % 0-10 [facility] Neutrophil percentageOrdered By: Edouard Grayson on 04-11-2024 Neutrophils/100 WBC (Bld) 63.6 % 47-70 [facility] Nucleated red blood cell per centageOrdered By: Edouard Grayson on 04-11-2024 Nucleated RBC/100 WBC (Bld) [Ratio] 0 % 0-5 [facility] Platelet countOrdered By: Genny Grayson on 04-11-2024 Platelets (Bld) [#/Vol] 345 10*3/uL 150-450 [facility] RBC Auto (Bld) [#/Vol]Ordere d By: Edouard Grayson on 04-11-2024 RBC (Bld) [#/Vol] 3.58 10*6/uL Low 4.2-5.4 [facility] White blood cell (WBC) count Ordered By: Edouard Grayson on 04-11-2024 WBC (Bld) [#/Vol] 11.8 10*3/uL High 4.4-11.0 [facility] CBC W/Diff, Automatedon 03-13 PATH REV Reviewed Normal [facility] Comment on above: Order Comment: 'TROP ' Serial specimen #1, #2 or #3: 1 Result Comment: Leuk ocytosis. Microcytic anemia. Clinical correlation necessary. Praveen Chacon M.D. 04/07/24 AMENDED REPORT 04/07/24 1613 PATH REV previously reported as: July Performed By: #### L 501.4020, L500.2500, L100.0100 #### [facility] [address] [place], [address] Absolute neutrophil countOrd ered By: Edouard Grayson on 04-04-2024 Neutrophils (Bld) [#/Vol] 10.9 10*3/uL High 2.0-7.7 [facility] Basic Metabolic Profile (BMP )on 04-04-2024 BUN/CRE 19.5 RATIO Normal 10-20 [facility] Comment on above: Order Comment: 'TROP ' Serial specimen #1, #2 or #3: 1 Performed By: #### L [id number], L500.2500, L100.0100 #### [facility] [address] [place], [address] CA,Total 9.0 mg/dL Normal 8.5-10.1 [facility] Comment on above: Order Comment: 'TROP ' Serial specimen #1, #2 or #3: 1 Performed By: #### L [id number], L500.2500, L100.0100 #### [facility] [address] [place], [address] Chloride [Moles/Vol] 106 mmol/L Normal 98-107 [facility] Comment on above: Order Comment: 'TROP ' Serial specimen #1, #2 or #3: 1 Performed By: #### L [id number], L500.2500, L100.0100 #### [facility] [address] [place], [address] CO2 [Moles/Vol] 23.0 mmol/L Normal 21.0-32.0 [facility] Comment on above: Order Comment: 'TROP ' Serial specimen #1, #2 or #3: 1 Performed By: #### L [id number], L500.2500, L100.0100 #### [facility] [address] [place], [address] Creatinine [Mass/Vol] 1.18 mg/dL High 0.55-1.02 [facility] Comment on above: Order Comment: 'TROP ' Serial specimen #1, #2 or #3: 1 Result Comment: The validity of the calculated GFR GFRAA in patients over 70 years has not been determined. Clinical correlation is essential. Performed By: #### L [id number], L500.2500, L100.0100 #### [facility] [address] [place], [address] EST GFR - AA 56 mL/min Low >60 [facility] Comment on above: Order Comment: 'TROP ' Serial specimen #1, #2 or #3: 1 Result Comment: Afri can [place] GFR Calc Performed By: #### L [id number], L500.2500, L100.0100 #### [facility] [address] [place], [address] GAP 6 Normal 5-15 [facility] Comment on above: Order Comment: 'TROP ' Serial specimen #1, #2 or #3: 1 Performed By: #### L [id number], L500.2500, L100.0100 #### [facility] [address] [place], [address] GFR/1.73 sq M.predicted among non-blacks MDRD (S/P/Bld) [Vol rate/Area] 47 mL/min/{1.73_m2} Low >60 [facility] Comment on above: Order Comment: 'TROP ' Serial specimen #1, #2 or #3: 1 Result Comment: Non- GFR Calc Performed By: #### L [id number], L500.2500, L100.0100 #### [facility] [address] [place], [address] Glucose [Mass/Vol] 134 mg/dL High 74-106 [facility] Comment on above: Order Comment: 'TROP ' Serial specimen #1, #2 or #3: 1 Result Comment: Fast ing Glucose result greater than or equal to 126 mg/dL suggests DIABETES MELLITUS per A.D.A. criteria. Performed By: #### L [id number], L500.2500, L100.0100 #### [facility] [address] [place], [address] Potassium [Moles/Vol] 4.3 mmol/L Normal 3.5-5.1 [facility] Comment on above: Order Comment: 'TROP ' Serial specimen #1, #2 or #3: 1 Performed By: #### L [id number], L500.2500, L100.0100 #### [facility] [address] [place], [address] Sodium [Moles/Vol] 135 mmol/L Low 136-145 [facility] Comment on above: Order Comment: 'TROP ' Serial specimen #1, #2 or #3: 1 Performed By: #### L [id number], L500.2500, L100.0100 #### [facility] [address] [place], [address] Urea nitrogen [Mass/Vol] 23 mg/dL High 7-18 [facility] Comment on above: Order Comment: 'TROP ' Serial specimen #1, #2 or #3: 1 Performed By: #### L [id number], L500.2500, L100.0100 #### [facility] [address] [place], [address] Basophil percentageOrdered B y: Edouard Grayson on 04-04-2024 Basophils/100 WBC (Bld) 0.2 % 0-1 [facility] Blood urea nitrogen (BUN)/cr eatinine ratioOrdered By: Edouard Grayson on 04-04-2024 Urea nitrogen/Creatinine [Mass ratio] 19.5 mg/mg 10-20 [facility] Carbon dioxide measurementOr dered By: Edouard Grayson on 04-04-2024 CO2 [Moles/Vol] 23.0 mmol/L 21.0-32.0 [facility] Chloride measurementOrdered By: Edouard Grayson on 04-04-2024 Chloride [Moles/Vol] 106 mmol/L 98-107 [facility] Eosinophil percentageOrdered By: Edouard Grayson on 04-04-2024 Eosinophils/100 WBC (Bld) 1.7 % 0-5 [facility] Erythrocyte distribution wid th (RBC) [Ratio]Ordered By: Edouard Grayson on 04-04-2024 Erythrocyte distribution width (RBC) [Entitic vol] 48.5 fL High 35.1-43.9 [facility] Erythrocyte distribution wid th ratioOrdered By: Edouard Grayson on 04-04-2024 Erythrocyte distribution width (RBC) [Ratio] 18.0 % High 11.6-14.6 [facility] Estimated glomerular filtrat ion rate (GFR) AmericanOrdered By: Edouard Grayson on 04-04-2024 Estimated GFR (MDRD) Amer 56 mL/min Low >60 [facility] Comment on above: GFR Calc Glomerular filtration rate ( GFR) estimationOrdered By: Edouard Grayson on 04-04-2024 Estimated GFR (MDRD) Non-Af Amer 47 mL/min Low >60 [facility] Comment on above: Non- GFR Calc Glucose measurementOrdered B y: Edouard Grayson on 04-04-2024 Glucose [Mass/Vol] 134 mg/dL High 74-106 [facility] Comment on above: Fasting Glucose resu lt greater than or equal to 126 mg/dL suggests DIABETES MELLITUS per A.D.A. criteria. Hematocrit Auto (Bld) [Volum e fraction]Ordered By: Edouard Grayson on 04-04-2024 Hematocrit (Bld) [Volume fraction] 29.6 % Low 37-47 [facility] Hemoglobin measurementOrdere d By: Edouard Grayson on 04-04-2024 Hemoglobin (Bld) [Mass/Vol] 9.3 g/dL Low 12.0-15.0 [facility] Immature granulocytes/100 WB C Auto (Bld)Ordered By: Edouard Grayson on 04-04-2024 Immature granulocytes/100 WBC (Bld) 0.700 % 0.0-0.9 [facility] Comment on above: IG% - Immature Granu locytes (promyelocytes, myelocytes and metamyelocytes) > 1% indicates that a LEFT SHIFT is Present. Lymphocytes Auto (Unsp spec) [#/Vol]Ordered By: Edouard Grayson on 04-04-2024 Lymphocytes (Bld) [#/Vol] 3.65 10*3/uL 0.83-4.51 [facility] Lymphocytes/100 WBC Auto (Un sp spec)Ordered By: Edouard Grayson on 04-04-2024 Lymphocytes/100 WBC (Bld) 22.1 % 19-41 [facility] MCV (mean corpuscular volume ) determinationOrdered By: Edouard Grayson on 04-04-2024 MCV (RBC) [Entitic vol] 76.9 fL Low 81-99 [facility] Manual differential comment Zackary (Bld) [Interp]Ordered By: Edouard Grayson on 04-04-2024 Differential Comment COMMENT [facility] Comment on above: MONOCYTOSIS. Mean corpuscular hemoglobin (MCH) determinationOrdered By: Edouard Grayson on 04-04-2024 MCH (RBC) [Entitic mass] 24.2 pg Low 27.0-32.0 [facility] Mean corpuscular hemoglobin concentration (MCHC) determinationOrdered By: Edouard Grayson on 04-04-2024 MCHC (RBC) [Mass/Vol] 31.4 g/dL Low 32-36 [facility] Mean platelet volume determi nationOrdered By: Edouard Grayson on 04-04-2024 Platelet mean volume (Bld) [Entitic vol] 10.5 fL 6.2-12.0 [facility] Monocyte percentageOrdered B y: Edouard Grayson on 04-04-2024 Monocytes/100 WBC (Bld) 9.2 % 0-10 [facility] Neutrophil percentageOrdered By: Edouard Grayson on 04-04-2024 Neutrophils/100 WBC (Bld) 66.1 % 47-70 [facility] Nucleated red blood cell per centageOrdered By: Edouard Grayson on 04-04-2024 Nucleated RBC/100 WBC (Bld) [Ratio] 0 % 0-5 [facility] Pathologist review Zackary (Unsp spec) [Interp]Ordered By: Edouard Grayson on 04-04-2024 Differential Pathologist's Review Reviewed [facility] Comment on above: Previous reported re sult: Malina morillo Edited by: JEANETH on 04/07/24:1613Leukocytosis.Microcytic anemia.Clinical correlation necessary.Praveen Chacon M.D. 04/07/24 AMENDED REPORT 04/07/24 1613 PATH REV previously reported as: Malina morillo Platelet countOrdered By: Genny Grayson on 04-04-2024 Platelets (Bld) [#/Vol] 250 10*3/uL 150-450 [facility] Potassium measurementOrdered By: Edouard Grayson on 04-04-2024 Potassium [Moles/Vol] 4.3 mmol/L 3.5-5.1 [facility] RBC Auto (Bld) [#/Vol]Ordere d By: Edouard Grayson on 04-04-2024 RBC (Bld) [#/Vol] 3.85 10*6/uL Low 4.2-5.4 [facility] Serum anion gap measurementO rdered By: Edouard Grayson on 04-04-2024 Anion gap [Moles/Vol] 6 mmol/L 5-15 [facility] Serum or plasma calcium jasmin urement (mass/volume)Ordered By: Edouard Grayson on 04-04-2024 Calcium [Mass/Vol] 9.0 mg/dL 8.5-10.1 [facility] Serum or plasma creatinine m easurement (mass/volume)Ordered By: Edouard Grayson on 04-04-2024 Creatinine [Mass/Vol] 1.18 mg/dL High 0.55-1.02 [facility] Comment on above: The validity of the calculated GFR & GFRAA in patients over 70 years has not been determined. Clinical correlation is essential. Serum or plasma urea nitroge n measurement (mass/volume)Ordered By: Edouard Grayson on 04-04-2024 Urea nitrogen [Mass/Vol] 23 mg/dL High 7-18 [facility] Sodium levelOrdered By: Edouard Grayson on 04-04-2024 Sodium [Moles/Vol] 135 mmol/L Low 136-145 [facility] White blood cell (WBC) count Ordered By: Edouard Grayson on 04-04-2024 WBC (Bld) [#/Vol] 16.5 10*3/uL High 4.4-11.0 [facility] Urine Cultureon 04-03-2024 URC Presumptive C albicans [place] Count 11,000-25,000 Normal [facility] Comment on above: Performed By: #### L 501.2400, L500.4050, L100.0100 #### [facility] [address] [place], [address] Urinalysis, Completeon 04-01 BACTERIA RARE Normal None Seen [facility] Comment on above: Order Comment: 127.1 Performed By: #### L 501.2400, L500.4050, L100.0100 #### [facility] [address] [place], [address] YEAST 1+ /hpf Normal None Seen [facility] Comment on above: Order Comment: 127.1 Performed By: #### L 501.2400, L500.4050, L100.0100 #### [facility] [address] [place], [address] EPI,SQUAMOUS 0-5 SEEN Normal 5-10 [facility] Comment on above: Order Comment: 127.1 Performed By: #### L 501.2400, L500.4050, L100.0100 #### [facility] [address] [place], [address] RBC 0-5 SEEN Normal 0-5 [facility] Comment on above: Order Comment: 127.1 Performed By: #### L [id number], L500.4050, L100.0100 #### [facility] [address] [place], [address] WBC 10-25 SEEN Normal 0-5 [facility] Comment on above: Order Comment: 127.1 Performed By: #### L 501.2400, L500.4050, L100.0100 #### [facility] [address] [place], [address] Mucus Ql (Urine sed) 0 SEEN Normal [facility] Comment on above: Order Comment: 127.1 Performed By: #### L 501.2400, L500.4050, L100.0100 #### [facility] [address] [place], [address] Bacteria LM.HPF (Urine sed) [#/Area]Ordered By: Edouard Grayson on 03-31-2024 Urine Bacteria RARE /hpf None Seen [facility] Basic Metabolic Profile (BMP )on 03-31-2024 BUN/CRE 35.6 RATIO High 10-20 [facility] Comment on above: Order Comment: 'TROP ' Serial specimen #1, #2 or #3: 1 Performed By: #### L [id number], L500.2500, L100.0100 #### [facility] [address] [place], [address] CA,Total 9.3 mg/dL Normal 8.5-10.1 [facility] Comment on above: Order Comment: 'TROP ' Serial specimen #1, #2 or #3: 1 Performed By: #### L [id number], L500.2500, L100.0100 #### [facility] [address] [place], [address] Chloride [Moles/Vol] 109 mmol/L High 98-107 [facility] Comment on above: Order Comment: 'TROP ' Serial specimen #1, #2 or #3: 1 Performed By: #### L [id number], L500.2500, L100.0100 #### [facility] [address] [place], [address] CO2 [Moles/Vol] 27.0 mmol/L Normal 21.0-32.0 [facility] Comment on above: Order Comment: 'TROP ' Serial specimen #1, #2 or #3: 1 Performed By: #### L [id number], L500.2500, L100.0100 #### [facility] [address] [place], [address] Creatinine [Mass/Vol] 1.01 mg/dL Normal 0.55-1.02 [facility] Comment on above: Order Comment: 'TROP ' Serial specimen #1, #2 or #3: 1 Result Comment: The validity of the calculated GFR GFRAA in patients over 70 years has not been determined. Clinical correlation is essential. Performed By: #### L 501.4020, L500.2500, L100.0100 #### [facility] [address] [place], [address] EST GFR - AA 68 mL/min Normal >60 [facility] Comment on above: Order Comment: 'TROP ' Serial specimen #1, #2 or #3: 1 Result Comment: Afri can [place] GFR Calc Performed By: #### L [id number], L500.2500, L100.0100 #### [facility] [address] [place], [address] GAP 5 Normal 5-15 [facility] Comment on above: Order Comment: 'TROP ' Serial specimen #1, #2 or #3: 1 Performed By: #### L [id number], L500.2500, L100.0100 #### [facility] [address] [place], [address] GFR/1.73 sq M.predicted among non-blacks MDRD (S/P/Bld) [Vol rate/Area] 56 mL/min/{1.73_m2} Low >60 [facility] Comment on above: Order Comment: 'TROP ' Serial specimen #1, #2 or #3: 1 Result Comment: Non- GFR Calc Performed By: #### L [id number], L500.2500, L100.0100 #### [facility] [address] [place], [address] Glucose [Mass/Vol] 180 mg/dL High 74-106 [facility] Comment on above: Order Comment: 'TROP ' Serial specimen #1, #2 or #3: 1 Result Comment: Fast ing Glucose result greater than or equal to 126 mg/dL suggests DIABETES MELLITUS per A.D.A. criteria. Performed By: #### L [id number], L500.2500, L100.0100 #### [facility] [address] [place], [address] Potassium [Moles/Vol] 3.9 mmol/L Normal 3.5-5.1 [facility] Comment on above: Order Comment: 'TROP ' Serial specimen #1, #2 or #3: 1 Performed By: #### L [id number], L500.2500, L100.0100 #### [facility] [address] [place], [address] Sodium [Moles/Vol] 141 mmol/L Normal 136-145 [facility] Comment on above: Order Comment: 'TROP ' Serial specimen #1, #2 or #3: 1 Performed By: #### L [id number], L500.2500, L100.0100 #### [facility] [address] [place], [address] Urea nitrogen [Mass/Vol] 36 mg/dL High 7-18 [facility] Comment on above: Order Comment: 'TROP ' Serial specimen #1, #2 or #3: 1 Performed By: #### L [id number], L500.2500, L100.0100 #### [facility] [address] [place], [address] Bilirubin Test strip Ql (U)O rdered By: Edouard Grayson on 03-31-2024 Bilirubin Ql (U) Negative Negative [facility] Blood urea nitrogen (BUN)/cr eatinine ratioOrdered By: Edouard Grayson on 03-31-2024 Urea nitrogen/Creatinine [Mass ratio] 35.6 mg/mg High 10-20 [facility] CBC-Complete Blood Cnt No Di ffon 03-31-2024 Erythrocyte distribution width (RBC) [Ratio] 17.4 % High 11.6-14.6 [facility] Comment on above: Order Comment: 'TROP ' Serial specimen #1, #2 or #3: 1 Performed By: #### L [id number], L500.2500, L100.0100 #### [facility] [address] [place], [address] Hematocrit (Bld) [Volume fraction] 33.7 % Low 37-47 [facility] Comment on above: Order Comment: 'TROP ' Serial specimen #1, #2 or #3: 1 Performed By: #### L [id number], L500.2500, L100.0100 #### [facility] [address] [place], [address] Hemoglobin (Bld) [Mass/Vol] 10.5 g/dL Low 12.0-15.0 [facility] Comment on above: Order Comment: 'TROP ' Serial specimen #1, #2 or #3: 1 Performed By: #### L [id number], L500.2500, L100.0100 #### [facility] [address] [place], [address] MCH (RBC) [Entitic mass] 24.2 pg Low 27.0-32.0 [facility] Comment on above: Order Comment: 'TROP ' Serial specimen #1, #2 or #3: 1 Performed By: #### L [id number], L500.2500, L100.0100 #### [facility] [address] [place], [address] MCHC (RBC) [Mass/Vol] 31.2 g/dL Low 32-36 [facility] Comment on above: Order Comment: 'TROP ' Serial specimen #1, #2 or #3: 1 Performed By: #### L [id number], L500.2500, L100.0100 #### [facility] [address] [place], [address] MCV (RBC) [Entitic vol] 77.8 fL Low 81-99 [facility] Comment on above: Order Comment: 'TROP ' Serial specimen #1, #2 or #3: 1 Performed By: #### L [id number], L500.2500, L100.0100 #### [facility] [address] [place], [address] Platelet mean volume (Bld) [Entitic vol] 10.2 fL Normal 6.2-12.0 [facility] Comment on above: Order Comment: 'TROP ' Serial specimen #1, #2 or #3: 1 Performed By: #### L [id number], L500.2500, L100.0100 #### [facility] [address] [place], [address] Platelets (Bld) [#/Vol] 360 10*3/uL Normal 150-450 [facility] Comment on above: Order Comment: 'TROP ' Serial specimen #1, #2 or #3: 1 Performed By: #### L [id number], L500.2500, L100.0100 #### [facility] [address] [place], [address] RBC (Bld) [#/Vol] 4.33 10*6/uL Normal 4.2-5.4 [facility] Comment on above: Order Comment: 'TROP ' Serial specimen #1, #2 or #3: 1 Performed By: #### L [id number], L500.2500, L100.0100 #### [facility] [address] [place], [address] RDW SD 48.6 fl High 35.1-43.9 [facility] Comment on above: Order Comment: 'TROP ' Serial specimen #1, #2 or #3: 1 Performed By: #### L [id number], L500.2500, L100.0100 #### [facility] [address] [place], [address] WBC (Bld) [#/Vol] 23.0 10*3/uL High 4.4-11.0 [facility] Comment on above: Order Comment: 'TROP ' Serial specimen #1, #2 or #3: 1 Performed By: #### L [id number], L500.2500, L100.0100 #### [facility] [address] [place], [address] Carbon dioxide measurementOr dered By: Edouard Grayson on 03-31-2024 CO2 [Moles/Vol] 27.0 mmol/L 21.0-32.0 [facility] Chloride measurementOrdered By: Edouard Grayson on 03-31-2024 Chloride [Moles/Vol] 109 mmol/L High 98-107 [facility] Epithelial cells.squamous LM Ql (Urine sed)Ordered By: Edouard Grayson on 03-31-2024 Epithelial cells.squamous LM.HPF (Urine sed) [#/Area] 0 /[HPF] 5-10 [facility] Erythrocyte distribution wid th (RBC) [Ratio]Ordered By: Edouard Grayson on 03-31-2024 Erythrocyte distribution width (RBC) [Entitic vol] 48.6 fL High 35.1-43.9 [facility] Erythrocyte distribution wid th ratioOrdered By: Edouard Grayson on 03-31-2024 Erythrocyte distribution width (RBC) [Ratio] 17.4 % High 11.6-14.6 [facility] Estimated glomerular filtrat ion rate (GFR) AmericanOrdered By: Edouard Grayson on 03-31-2024 Estimated GFR (MDRD) Amer 68 mL/min >60 [facility] Comment on above: GFR Calc Glomerular filtration rate ( GFR) estimationOrdered By: Edouard Grayson on 03-31-2024 Estimated GFR (MDRD) Non-Af Amer 56 mL/min Low >60 [facility] Comment on above: Non- GFR Calc Glucose Ql (U)Ordered By: Genny Grayson on 03-31-2024 Glucose (U) [Mass/Vol] 250 mg/dL High Normal [facility] Glucose measurementOrdered B y: Edouard Grayson on 03-31-2024 Glucose [Mass/Vol] 180 mg/dL High 74-106 [facility] Comment on above: Fasting Glucose resu lt greater than or equal to 126 mg/dL suggests DIABETES MELLITUS per A.D.A. criteria. Hematocrit Auto (Bld) [Volum e fraction]Ordered By: Edouard Grayson on 03-31-2024 Hematocrit (Bld) [Volume fraction] 33.7 % Low 37-47 [facility] Hemoglobin measurementOrdere d By: Edouard Grayson on 03-31-2024 Hemoglobin (Bld) [Mass/Vol] 10.5 g/dL Low 12.0-15.0 [facility] Ketones Test strip Ql (U)Ord ered By: Edouard Grayson on 03-31-2024 Ketones Ql (U) Negative Negative [facility] MCV (mean corpuscular volume ) determinationOrdered By: Edouard Grayson on 03-31-2024 MCV (RBC) [Entitic vol] 77.8 fL Low 81-99 [facility] Mean corpuscular hemoglobin (MCH) determinationOrdered By: Edouard Grayson on 03-31-2024 MCH (RBC) [Entitic mass] 24.2 pg Low 27.0-32.0 [facility] Mean corpuscular hemoglobin concentration (MCHC) determinationOrdered By: Edouard Grayson on 03-31-2024 MCHC (RBC) [Mass/Vol] 31.2 g/dL Low 32-36 [facility] Mean platelet volume determi nationOrdered By: Edouard Grayson on 03-31-2024 Platelet mean volume (Bld) [Entitic vol] 10.2 fL 6.2-12.0 [facility] Microscopic analysis of urin e for red blood cells (RBC)Ordered By: Edouard Grayson on 03-31-2024 Urine RBC 0-5 SEEN /hpf 0-5 [facility] Mucus LM Ql (Urine sed)Order ed By: Edouard Grayson on 03-31-2024 Mucus Ql (Urine sed) 0 SEEN /hpf [facility] Nitrite Test strip Ql (U)Ord ered By: Edouard Grayson on 03-31-2024 Nitrite Ql (U) Negative Negative [facility] Platelet countOrdered By: Genny Grayosn on 03-31-2024 Platelets (Bld) [#/Vol] 360 10*3/uL 150-450 [facility] Potassium measurementOrdered By: Edouard Grayson on 03-31-2024 Potassium [Moles/Vol] 3.9 mmol/L 3.5-5.1 [facility] Protein Test strip Ql (U)Ord ered By: Edouard Grayson on 03-31-2024 Protein Ql (U) 30 mg/dl High Negative [facility] RBC Auto (Bld) [#/Vol]Ordere d By: Edouard Grayson on 03-31-2024 RBC (Bld) [#/Vol] 4.33 10*6/uL 4.2-5.4 [facility] Serum anion gap measurementO rdered By: Edouard Grayson on 03-31-2024 Anion gap [Moles/Vol] 5 mmol/L 5-15 [facility] Serum or plasma calcium jasmin urement (mass/volume)Ordered By: Edouard Grayson on 01-20-2025 Calcium [Mass/Vol] 9.3 mg/dL 8.5-10.1 [facility] Serum or plasma creatinine m easurement (mass/volume)Ordered By: Edouard Grayson on 03-31-2024 Creatinine [Mass/Vol] 1.01 mg/dL 0.55-1.02 [facility] Comment on above: The validity of the calculated GFR & GFRAA in patients over 70 years has not been determined. Clinical correlation is essential. Serum or plasma urea nitroge n measurement (mass/volume)Ordered By: Edouard Grayson on 03-31-2024 Urea nitrogen [Mass/Vol] 36 mg/dL High 7-18 [facility] Sodium levelOrdered By: Edouard Grayson on 03-31-2024 Sodium [Moles/Vol] 141 mmol/L 136-145 [facility] Urine blood detectionOrdered By: Edouard Grayson on 03-31-2024 Urine Occult Blood 10 /ul High Negative [facility] Urine clarityOrdered By: Earl Grayson on 03-31-2024 Clarity (U) Cloudy Clear [facility] Urine color determinationOrd ered By: Edouard Grayson on 03-31-2024 Color (U) Yellow Yellow [facility] Urine cultureOrdered By: Earl Grayson on 03-31-2024 Bacteria identified Cx Nom (U) Presumptive C albicans Abnormal [facility] Urine leukocyte esterase det ection by dipstickOrdered By: Edouard Grayson on 03-31-2024 Leukocyte esterase Test strip Ql (U) 500 /ul High Negative [facility] Urine pHOrdered By: Edouard sales on 03-31-2024 pH (U) 6.0 [pH] 5.0 - 8.0 [facility] Urine specific gravity measu rementOrdered By: Edouard Grayson on 03-31-2024 Specific gravity (U) [Rel density] 1.025 1.002-1.030 [facility] Urobilinogen Ql (U)Ordered B y: Edouard Grayson on 03-31-2024 Urine Urobilinogen Normal mg/dl Normal [facility] White blood cell (WBC) count Ordered By: Edouard Grayson on 03-31-2024 WBC (Bld) [#/Vol] 23.0 10*3/uL High 4.4-11.0 [facility] White blood cell countOrdere d By: Edouard Grayson on 03-31-2024 Urine WBC 10-25 SEEN /hpf 0-5 [facility] Yeast LM.HPF (Urine sed) [#/ Area]Ordered By: Edouard Grayson on 03-31-2024 Urine Yeast 1+ /hpf None Seen [facility] Urine Cultureon 03-25-2024 [facility] Comments: Please obtain repeat UA in the ED catheter, Cx #2 Organism is too fastidious for routine susceptibility studies. Enterococcus faecalis [place] Count >100,000 Aerococcus urinae Aerococcus urinae Enterococcus faecalis: REACTION Ampicillin Islt YANCI <=2 S Ciprofloxacin Islt YANCI <=0.5 Gentamicin Synergy Susc Islt SYN-S S levoFLOXacin Islt YANCI 1 S Linezolid Islt YANCI 2 S Nitrofurantoin Islt YANCI <=16 S Streptomycin High Pot Susc Islt SYN-S S Tetracycline Islt YANCI >=16 R Vancomycin Islt YANCI 1 S Normal [facility] Comment on above: Performed By: #### L 501.4020, L500.2500, L100.0100 #### [facility] [address] [place], [address] Absolute neutrophil countOrd ered By: Chasity Armida on 03-23-2024 Neutrophils (Bld) [#/Vol] 6.4 10*3/uL 2.0-7.7 [facility] Albumin to globulin ratioOrd ered By: Chasity Armida on 03-23-2024 Albumin/Globulin [Mass ratio] 0.6 {ratio} Low 0.9-2.4 [facility] Basophil percentageOrdered B y: Chasity Armida on 03-23-2024 Basophils/100 WBC (Bld) 0.2 % 0-1 [facility] Bilirubin, totalOrdered By: Armida on 03-23-2024 Bilirubin [Mass/Vol] 0.30 mg/dL 0.20-1.00 [facility] Comment on above: For patients on eltr ombopag therapy, use of Dimension [place] TBIL is not recommended. Blood urea nitrogen (BUN)/cr eatinine ratioOrdered By: Chasity Huffman on 03-23-2024 Urea nitrogen/Creatinine [Mass ratio] 26.3 mg/mg High 12-29 [facility] CBC W/Diff, Automatedon 03-12-2024 Absolute Lymph 2.22 X10 3/uL Normal 0.83-4.51 [facility] Comment on above: Performed By: #### L 501.4020, L500.2500, L100.0100 #### [facility] [address] [place], [address] Absolute Neut 6.4 X10 3/uL Normal 2.0-7.7 [facility] Comment on above: Performed By: #### L 501.4020, L500.2500, L100.0100 #### [facility] [address] [place], [address] Basophils/100 WBC (Bld) 0.2 % Normal 0-1 [facility] Comment on above: Performed By: #### L 501.4020, L500.2500, L100.0100 #### [facility] [address] [place], [address] Eosinophils/100 WBC (Bld) 0.0 % Normal 0-5 [facility] Comment on above: Performed By: #### L 501.4020, L500.2500, L100.0100 #### [facility] [address] [place], [address] Erythrocyte distribution width (RBC) [Ratio] 17.6 % High 11.6-14.6 [facility] Comment on above: Performed By: #### L 501.4020, L500.2500, L100.0100 #### [facility] [address] [place], [address] Hematocrit (Bld) [Volume fraction] 32.8 % Low 37-47 [facility] Comment on above: Performed By: #### L 501.4020, L500.2500, L100.0100 #### [facility] [address] [place], [address] Hemoglobin (Bld) [Mass/Vol] 9.7 g/dL Low 12.0-15.0 [facility] Comment on above: Performed By: #### L 501.4020, L500.2500, L100.0100 #### [facility] [address] [place], [address] IG% 0.500 Normal 0.0-0.9 [facility] Comment on above: Result Comment: IG% - Immature Granulocytes (promyelocytes, myelocytes and metamyelocytes) > 1% indicates that a LEFT SHIFT is Present. Performed By: #### L 501.4020, L500.2500, L100.0100 #### [facility] [address] [place], [address] Lymphocytes/100 WBC (Bld) 25.1 % Normal 19-41 [facility] Comment on above: Performed By: #### L 501.4020, L500.2500, L100.0100 #### [facility] [address] [place], [address] MCH (RBC) [Entitic mass] 23.7 pg Low 27.0-32.0 [facility] Comment on above: Performed By: #### L 501.4020, L500.2500, L100.0100 #### [facility] [address] [place], [address] MCHC (RBC) [Mass/Vol] 29.6 g/dL Low 32-36 [facility] Comment on above: Performed By: #### L 501.4020, L500.2500, L100.0100 #### [facility] [address] [place], [address] MCV (RBC) [Entitic vol] 80.2 fL Low 81-99 [facility] Comment on above: Performed By: #### L 501.4020, L500.2500, L100.0100 #### [facility] [address] [place], [address] Monocytes/100 WBC (Bld) 1.9 % Normal 0-10 [facility] Comment on above: Performed By: #### L 501.4020, L500.2500, L100.0100 #### [facility] [address] [place], [address] Neutrophils/100 WBC (Bld) 72.3 % High 47-70 [facility] Comment on above: Performed By: #### L 501.4020, L500.2500, L100.0100 #### [facility] [address] [place], [address] Nucleated RBC (Bld) [#/Vol] 0 10*3/uL Normal 0-5 [facility] Comment on above: Performed By: #### L 501.4020, L500.2500, L100.0100 #### [facility] [address] [place], [address] Platelet mean volume (Bld) [Entitic vol] 9.6 fL Normal 6.2-12.0 [facility] Comment on above: Performed By: #### L 501.4020, L500.2500, L100.0100 #### [facility] [address] [place], [address] Platelets (Bld) [#/Vol] 282 10*3/uL Normal 150-450 [facility] Comment on above: Performed By: #### L 501.4020, L500.2500, L100.0100 #### [facility] [address] [place], [address] RBC (Bld) [#/Vol] 4.09 10*6/uL Low 4.2-5.4 [facility] Comment on above: Performed By: #### L 501.4020, L500.2500, L100.0100 #### [facility] [address] [place], [address] RDW SD 50.8 fl High 35.1-43.9 [facility] Comment on above: Performed By: #### L 501.4020, L500.2500, L100.0100 #### [facility] [address] [place], [address] WBC (Bld) [#/Vol] 8.9 10*3/uL Normal 4.4-11.0 [facility] Comment on above: Performed By: #### L 501.4020, L500.2500, L100.0100 #### [facility] [address] [place], [address] Carbon dioxide measurementOr dered By: Chasity Huffman on 03-23-2024 CO2 [Moles/Vol] 21.0 mmol/L 21.0-32.0 [facility] Chloride measurementOrdered By: Chasity Huffman on 03-23-2024 Chloride [Moles/Vol] 114 mmol/L High 98-107 [facility] Comprehensive Metabolic Prof ilon 03-23-2024 Albumin [Mass/Vol] 2.8 g/dL Low 3.2-5.0 [facility] Comment on above: Performed By: #### L 501.4020, L500.2500, L100.0100 #### [facility] [address] [place], [address] Albumin/Globulin [Mass ratio] 0.6 {ratio} Low 0.9-2.4 [facility] Comment on above: Performed By: #### L 501.4020, L500.2500, L100.0100 #### [facility] [address] [place], [address] ALK P 93 U/L Normal 45-117 [facility] Comment on above: Performed By: #### L 501.4020, L500.2500, L100.0100 #### [facility] [address] [place], [address] ALT [Catalytic activity/Vol] 26 U/L Normal 13-56 [facility] Comment on above: Performed By: #### L 501.4020, L500.2500, L100.0100 #### [facility] [address] [place], [address] AST [Catalytic activity/Vol] 23 U/L Normal 15-37 [facility] Comment on above: Performed By: #### L 501.4020, L500.2500, L100.0100 #### [facility] [address] [place], [address] Bilirubin [Mass/Vol] 0.30 mg/dL Normal 0.20-1.00 [facility] Comment on above: Result Comment: For patients on eltrombopag therapy, use of Dimension [place] TBIL is not recommended. Performed By: #### L 501.4020, L500.2500, L100.0100 #### [facility] [address] [place], [address] BUN/CRE 26.3 RATIO High 10-20 [facility] Comment on above: Performed By: #### L 501.4020, L500.2500, L100.0100 #### [facility] [address] [place], [address] CA,Total 8.4 mg/dL Low 8.5-10.1 [facility] Comment on above: Performed By: #### L 501.4020, L500.2500, L100.0100 #### [facility] [address] [place], [address] Chloride [Moles/Vol] 114 mmol/L High 98-107 [facility] Comment on above: Performed By: #### L 501.4020, L500.2500, L100.0100 #### [facility] [address] [place], [address] CO2 [Moles/Vol] 21.0 mmol/L Normal 21.0-32.0 [facility] Comment on above: Performed By: #### L 501.4020, L500.2500, L100.0100 #### [facility] [address] [place], [address] Creatinine [Mass/Vol] 0.84 mg/dL Normal 0.55-1.02 [facility] Comment on above: Result Comment: The validity of the calculated GFR GFRAA in patients over 70 years has not been determined. Clinical correlation is essential. Performed By: #### L 501.4020, L500.2500, L100.0100 #### [facility] [address] [place], [address] ECRCL 40.83 ml/min Normal [facility] Comment on above: Performed By: #### L 501.4020, L500.2500, L100.0100 #### [facility] [address] [place], [address] EST GFR - AA 84 mL/min Normal >60 [facility] Comment on above: Result Comment: Afri can [place] GFR Calc Performed By: #### L 501.4020, L500.2500, L100.0100 #### [facility] [address] [place], [address] GAP 4 Low 5-15 [facility] Comment on above: Performed By: #### L 501.4020, L500.2500, L100.0100 #### [facility] [address] [place], [address] GFR/1.73 sq M.predicted among non-blacks MDRD (S/P/Bld) [Vol rate/Area] 69 mL/min/{1.73_m2} Normal >60 [facility] Comment on above: Result Comment: Non- GFR Calc Performed By: #### L 501.4020, L500.2500, L100.0100 #### [facility] [address] [place], [address] Globulin (S) [Mass/Vol] 4.6 g/dL High 2.2-4.2 [facility] Comment on above: Performed By: #### L 501.4020, L500.2500, L100.0100 #### [facility] [address] [place], [address] Glucose [Mass/Vol] 167 mg/dL High 74-106 [facility] Comment on above: Result Comment: Fast ing Glucose result greater than or equal to 126 mg/dL suggests DIABETES MELLITUS per A.D.A. criteria. Performed By: #### L 501.4020, L500.2500, L100.0100 #### [facility] [address] [place], [address] Potassium [Moles/Vol] 4.2 mmol/L Normal 3.5-5.1 [facility] Comment on above: Performed By: #### L 501.4020, L500.2500, L100.0100 #### [facility] [address] [place], [address] Sodium [Moles/Vol] 140 mmol/L Normal 136-145 [facility] Comment on above: Performed By: #### L 501.4020, L500.2500, L100.0100 #### [facility] [address] [place], [address] T PROT 7.4 g/dL Normal 6.4-8.2 [facility] Comment on above: Performed By: #### L 501.4020, L500.2500, L100.0100 #### [facility] [address] [place], [address] Urea nitrogen [Mass/Vol] 22 mg/dL High 7-18 [facility] Comment on above: Performed By: #### L 501.4020, L500.2500, L100.0100 #### [facility] [address] [place], [address] Eosinophil percentageOrdered By: Chasity Huffman on 03-23-2024 Eosinophils/100 WBC (Bld) 0.0 % 0-5 [facility] Erythrocyte distribution wid th (RBC) [Ratio]Ordered By: Chasity Armida on 03-23-2024 Erythrocyte distribution width (RBC) [Entitic vol] 50.8 fL High 35.1-43.9 [facility] Erythrocyte distribution wid th ratioOrdered By: Chasity Armida on 03-23-2024 Erythrocyte distribution width (RBC) [Ratio] 17.6 % High 11.6-14.6 [facility] Estimated glomerular filtrat ion rate (GFR) AmericanOrdered By: Chasity Huffman on 03-23-2024 Estimated GFR (MDRD) Amer 84 mL/min >60 [facility] Comment on above: GFR Calc Estimation of creatinine suellen aranceOrdered By: Chasity Huffman on 03-23-2024 Estimated Creatinine Clearance Calc 40.83 ml/min [facility] Glomerular filtration rate ( GFR) estimationOrdered By: Chasity Armida on 03-23-2024 Estimated GFR (MDRD) Non-Af Amer 69 mL/min >60 [facility] Comment on above: Non- GFR Calc Glucose measurementOrdered B y: Chasity Huffman on 03-23-2024 Glucose [Mass/Vol] 167 mg/dL High 74-106 [facility] Comment on above: Fasting Glucose resu lt greater than or equal to 126 mg/dL suggests DIABETES MELLITUS per A.D.A. criteria. Hematocrit Auto (Bld) [Volum e fraction]Ordered By: Chasity Huffman on 03-23-2024 Hematocrit (Bld) [Volume fraction] 32.8 % Low 37-47 [facility] Hemoglobin measurementOrdere d By: Chasity Huffman on 03-23-2024 Hemoglobin (Bld) [Mass/Vol] 9.7 g/dL Low 12.0-15.0 [facility] Immature granulocytes/100 WB C Auto (Bld)Ordered By: Chasity Huffman on 03-23-2024 Immature granulocytes/100 WBC (Bld) 0.500 % 0.0-0.9 [facility] Comment on above: IG% - Immature Granu locytes (promyelocytes, myelocytes and metamyelocytes) > 1% indicates that a LEFT SHIFT is Present. Laboratory - Chemistry and C hemistry - challengeOrdered By: Chasity Huffman on 03-23-2024 AST [Catalytic activity/Vol] 23 U/L 15-37 [facility] Lymphocytes Auto (Unsp spec) [#/Vol]Ordered By: Armida on 03-23-2024 Lymphocytes (Bld) [#/Vol] 2.22 10*3/uL 0.83-4.51 [facility] Lymphocytes/100 WBC Auto (Un sp spec)Ordered By: Chasity Armida on 03-23-2024 Lymphocytes/100 WBC (Bld) 25.1 % 19-41 [facility] MCV (mean corpuscular volume ) determinationOrdered By: Chasity Armida on 03-23-2024 MCV (RBC) [Entitic vol] 80.2 fL Low 81-99 [facility] Mean corpuscular hemoglobin (MCH) determinationOrdered By: Armida on 03-23-2024 MCH (RBC) [Entitic mass] 23.7 pg Low 27.0-32.0 [facility] Mean corpuscular hemoglobin concentration (MCHC) determinationOrdered By: Chasity Armida on 03-23-2024 MCHC (RBC) [Mass/Vol] 29.6 g/dL Low 32-36 [facility] Comment on above: Delta: 31.4 on 03/22-1230 Mean platelet volume determi nationOrdered By: Chasity Armida on 03-23-2024 Platelet mean volume (Bld) [Entitic vol] 9.6 fL 6.2-12.0 [facility] Monocyte percentageOrdered B y: Chasity Armida on 03-23-2024 Monocytes/100 WBC (Bld) 1.9 % 0-10 [facility] Neutrophil percentageOrdered By: Armida on 03-23-2024 Neutrophils/100 WBC (Bld) 72.3 % High 47-70 [facility] Nucleated red blood cell per centageOrdered By: Chasity Armida on 03-23-2024 Nucleated RBC/100 WBC (Bld) [Ratio] 0 % 0-5 [facility] Platelet countOrdered By: Kaylie Huffman on 03-23-2024 Platelets (Bld) [#/Vol] 282 10*3/uL 150-450 [facility] Potassium measurementOrdered By: Chasity Huffman on 03-23-2024 Potassium [Moles/Vol] 4.2 mmol/L 3.5-5.1 [facility] RBC Auto (Bld) [#/Vol]Ordere d By: Chasity Huffman on 03-23-2024 RBC (Bld) [#/Vol] 4.09 10*6/uL Low 4.2-5.4 [facility] Serum anion gap measurementO rdered By: Chasity Huffman on 03-23-2024 Anion gap [Moles/Vol] 4 mmol/L Low 5-15 [facility] Serum globulin measurementOr dered By: Chasity Huffman on 03-23-2024 Globulin (S) [Mass/Vol] 4.6 g/dL High 2.2-4.2 [facility] Serum or plasma alanine maurice otransferase (ALT) measurementOrdered By: Chasity Huffman on 03-23-2024 ALT [Catalytic activity/Vol] 26 U/L 13-56 [facility] Serum or plasma albumin jasmin urement (mass/volume)Ordered By: Chasity Huffman 03-23-2024 Albumin [Mass/Vol] 2.8 g/dL Low 3.2-5.0 [facility] Serum or plasma alkaline jose alberto sphatase measurementOrdered By: Chasity Armida 03-23-2024 ALP [Catalytic activity/Vol] 93 U/L 45-117 [facility] Serum or plasma calcium jasmin urement (mass/volume)Ordered By: Chasity Huffman 03-23-2024 Calcium [Mass/Vol] 8.4 mg/dL Low 8.5-10.1 [facility] Serum or plasma creatinine m easurement (mass/volume)Ordered By: Chasity Huffman 03-23-2024 Creatinine [Mass/Vol] 0.84 mg/dL 0.55-1.02 [facility] Comment on above: The validity of the calculated GFR & GFRAA in patients over 70 years has not been determined. Clinical correlation is essential. Serum or plasma urea nitroge n measurement (mass/volume)Ordered By: Chasity Huffman on 03-23-2024 Urea nitrogen [Mass/Vol] 22 mg/dL High 7-18 [facility] Sodium levelOrdered By: Destiny mn Armida on 03-23-2024 Sodium [Moles/Vol] 140 mmol/L 136-145 [facility] Total proteinOrdered By: Kajal alfredn Armida on 03-23-2024 Protein [Mass/Vol] 7.4 g/dL 6.4-8.2 [facility] White blood cell (WBC) count Ordered By: Chasity Huffman on 03-23-2024 WBC (Bld) [#/Vol] 8.9 10*3/uL 4.4-11.0 [facility] 12 Lead EKGon 03-22-2024 12 Lead EKG [facility] Cardi[facility] Services [address] [place] [address] 12 Lead EKG 03/22/24 1250 MR#: [id number] Acct: [id number] Name: KARLIE VALLE Rep #: [id number] : 1940 83 From: Mauro Davis MD Attending Dr: Dr. Catarino Aguilar DO Status: A DM IN Ordering Dr: Glenys Bland Date: 03/22/24 Location: [facility] Sex: F C Admitted: 03/22/24 Test Reason [...] consider anterior ischemia Abnormal ECG Confirmed by MAURO DAVIS MD ([id number]), photo editor KARIME SCHMITZ ([id number]) on 03/24/2024 1:55:28 PM Referred By: Confirmed By: MAURO DAVIS MD 03/24/24 9823 Date Mauro Davis MD CC: Dr. Edouard Grayson MD; Dr. Catarino Aguilar DO; MARY Rothman Signed Normal [facility] BNP (brain natriuretic pepti de measurement)Ordered By: Chasity Huffman on 03-22-2024 Natriuretic peptide B (Bld) [Mass/Vol] 107.7 pg/mL High 0-100 [facility] Comment on above: Performed By: #### L 501.2400, L500.4050, L100.0100 #### [facility] [address] [place], [address] Basic Metabolic Profile (BMP )on 03-22-2024 BUN/CRE 22.4 RATIO High 10-20 [facility] Comment on above: Order Comment: 'TROP ' Serial specimen #1, #2 or #3: 1 Performed By: #### L 501.4020, L500.2500, L100.0100 #### [facility] [address] [place], [address] CA,Total 9.0 mg/dL Normal 8.5-10.1 [facility] Comment on above: Order Comment: 'TROP ' Serial specimen #1, #2 or #3: 1 Performed By: #### L 501.4020, L500.2500, L100.0100 #### [facility] [address] [place], [address] Chloride [Moles/Vol] 110 mmol/L High 98-107 [facility] Comment on above: Order Comment: 'TROP ' Serial specimen #1, #2 or #3: 1 Performed By: #### L 501.4020, L500.2500, L100.0100 #### [facility] [address] [place], [address] CO2 [Moles/Vol] 23.0 mmol/L Normal 21.0-32.0 [facility] Comment on above: Order Comment: 'TROP ' Serial specimen #1, #2 or #3: 1 Performed By: #### L 501.4020, L500.2500, L100.0100 #### [facility] [address] [place], [address] Creatinine [Mass/Vol] 1.07 mg/dL High 0.55-1.02 [facility] Comment on above: Order Comment: 'TROP ' Serial specimen #1, #2 or #3: 1 Result Comment: The validity of the calculated GFR GFRAA in patients over 70 years has not been determined. Clinical correlation is essential. Performed By: #### L 501.4020, L500.2500, L100.0100 #### [facility] [address] [place], [address] ECRCL 32.77 ml/min Normal [facility] Comment on above: Order Comment: 'TROP ' Serial specimen #1, #2 or #3: 1 Performed By: #### L 501.4020, L500.2500, L100.0100 #### [facility] [address] [place], [address] EST GFR - AA 63 mL/min Normal >60 [facility] Comment on above: Order Comment: 'TROP ' Serial specimen #1, #2 or #3: 1 Result Comment: Afri can [place] GFR Calc Performed By: #### L 501.4020, L500.2500, L100.0100 #### [facility] [address] [place], [address] GAP 5 Normal 5-15 [facility] Comment on above: Order Comment: 'TROP ' Serial specimen #1, #2 or #3: 1 Performed By: #### L 501.4020, L500.2500, L100.0100 #### [facility] [address] [place], [address] GFR/1.73 sq M.predicted among non-blacks MDRD (S/P/Bld) [Vol rate/Area] 52 mL/min/{1.73_m2} Low >60 [facility] Comment on above: Order Comment: 'TROP ' Serial specimen #1, #2 or #3: 1 Result Comment: Non- GFR Calc Performed By: #### L 501.4020, L500.2500, L100.0100 #### [facility] [address] [place], [address] Glucose [Mass/Vol] 122 mg/dL High 74-106 [facility] Comment on above: Order Comment: 'TROP ' Serial specimen #1, #2 or #3: 1 Result Comment: Fast ing Glucose result from 100 to 125 mg/dL suggests IMPAIRED HOMEOSTASIS per A.D.A. criteria. Performed By: #### L 501.4020, L500.2500, L100.0100 #### [facility] [address] [place], [address] Potassium [Moles/Vol] 4.0 mmol/L Normal 3.5-5.1 [facility] Comment on above: Order Comment: 'TROP ' Serial specimen #1, #2 or #3: 1 Performed By: #### L 501.4020, L500.2500, L100.0100 #### [facility] [address] [place], [address] Sodium [Moles/Vol] 138 mmol/L Normal 136-145 [facility] Comment on above: Order Comment: 'TROP ' Serial specimen #1, #2 or #3: 1 Performed By: #### L 501.4020, L500.2500, L100.0100 #### [facility] [address] [place], [address] Urea nitrogen [Mass/Vol] 24 mg/dL High 7-18 [facility] Comment on above: Order Comment: 'TROP ' Serial specimen #1, #2 or #3: 1 Performed By: #### L 501.4020, L500.2500, L100.0100 #### [facility] [address] [place], [address] Bilirubin Test strip Ql (U)O rdered By: Glenys Bland on 03-22-2024 Bilirubin Ql (U) Negative Negative [facility] Bilirubin directOrdered By: Chasity Huffman on 03-22-2024 Bilirubin.direct [Mass/Vol] 0.07 mg/dL 0.00-0.30 [facility] Brain/Head without Contrasto n 03-22-2024 Brain/Head without Contrast [facility] Imaging Services [address] [place], [place] [address] Brain/Head without Contrast MR#: [id number] Acct: [id number] Name: KARLIE VALLE Rep #: [id number] : 1940 F 83 From: Nyasia bonilla MD PCP: Dr. Edouard Grayson MD Status: REG ER Study: Brain/Head without Contrast Date of Exam: 03/12 04/05 Exam# [id number] Ordering Dr: Glenys Bland [id number] HISTORY: ams, confusion, sob. TECHNIQUE: Multiple axial [...] CC: Dr. Edouard Grayson MD; MARY Rothman Anesthesia Technician: Signed Normal [facility] C-reactive protein measureme nt by high sensitivity methodOrdered By: Chasity Huffman on 03-22-2024 C-Reactive Protein Extended Range 25.70 mg/L High 0.0-3.0 [facility] Comment on above: C-Reactive Protein ( CRP) provides useful information for thediagnosis, therapy and monitoring of inflammatory processesand associated diseases. For the evaluation of Relative Riskfor Cardiovascular Disease, a High Sensitivity CRP (HSCRP)should be ordered. CBC W/Diff, Automatedon 03-12 Absolute Lymph 3.73 X10 3/uL Normal 0.83-4.51 [facility] Comment on above: Performed By: #### L 501.4020, L500.2500, L100.0100 #### [facility] [address] [place], [address] Absolute Neut 5.7 X10 3/uL Normal 2.0-7.7 [facility] Comment on above: Performed By: #### L 501.4020, L500.2500, L100.0100 #### [facility] [address] [place], [address] Basophils/100 WBC (Bld) 0.4 % Normal 0-1 [facility] Comment on above: Performed By: #### L 501.4020, L500.2500, L100.0100 #### [facility] [address] [place], [address] Eosinophils/100 WBC (Bld) 0.8 % Normal 0-5 [facility] Comment on above: Performed By: #### L 501.4020, L500.2500, L100.0100 #### [facility] [address] [place], [address] Erythrocyte distribution width (RBC) [Ratio] 17.5 % High 11.6-14.6 [facility] Comment on above: Performed By: #### L 501.4020, L500.2500, L100.0100 #### [facility] [address] [place], [address] Hematocrit (Bld) [Volume fraction] 31.2 % Low 37-47 [facility] Comment on above: Performed By: #### L 501.4020, L500.2500, L100.0100 #### [facility] [address] [place], [address] Hemoglobin (Bld) [Mass/Vol] 9.8 g/dL Low 12.0-15.0 [facility] Comment on above: Performed By: #### L 501.4020, L500.2500, L100.0100 #### [facility] [address] [place], [address] IG% 0.300 Normal 0.0-0.9 [facility] Comment on above: Result Comment: IG% - Immature Granulocytes (promyelocytes, myelocytes and metamyelocytes) > 1% indicates that a LEFT SHIFT is Present. Performed By: #### L 501.4020, L500.2500, L100.0100 #### [facility] [address] [place], [address] Lymphocytes/100 WBC (Bld) 34.6 % Normal 19-41 [facility] Comment on above: Performed By: #### L 501.4020, L500.2500, L100.0100 #### [facility] [address] [place], [address] MCH (RBC) [Entitic mass] 24.2 pg Low 27.0-32.0 [facility] Comment on above: Performed By: #### L 501.4020, L500.2500, L100.0100 #### [facility] [address] [place], [address] MCHC (RBC) [Mass/Vol] 31.4 g/dL Low 32-36 [facility] Comment on above: Performed By: #### L 501.4020, L500.2500, L100.0100 #### [facility] [address] [place], [address] MCV (RBC) [Entitic vol] 77.0 fL Low 81-99 [facility] Comment on above: Performed By: #### L 501.4020, L500.2500, L100.0100 #### [facility] [address] [place], [address] Monocytes/100 WBC (Bld) 10.8 % High 0-10 [facility] Comment on above: Performed By: #### L 501.4020, L500.2500, L100.0100 #### [facility] [address] [place], [address] Neutrophils/100 WBC (Bld) 53.1 % Normal 47-70 [facility] Comment on above: Performed By: #### L 501.4020, L500.2500, L100.0100 #### [facility] [address] [place], [address] Nucleated RBC (Bld) [#/Vol] 0 10*3/uL Normal 0-5 [facility] Comment on above: Performed By: #### L 501.4020, L500.2500, L100.0100 #### [facility] [address] [place], [address] Platelet mean volume (Bld) [Entitic vol] 9.5 fL Normal 6.2-12.0 [facility] Comment on above: Performed By: #### L 501.4020, L500.2500, L100.0100 #### [facility] [address] [place], [address] Platelets (Bld) [#/Vol] 319 10*3/uL Normal 150-450 [facility] Comment on above: Performed By: #### L 501.4020, L500.2500, L100.0100 #### [facility] [address] [place], [address] RBC (Bld) [#/Vol] 4.05 10*6/uL Low 4.2-5.4 [facility] Comment on above: Performed By: #### L 501.4020, L500.2500, L100.0100 #### [facility] [address] [place], [address] RDW SD 48.6 fl High 35.1-43.9 [facility] Comment on above: Performed By: #### L 501.4020, L500.2500, L100.0100 #### [facility] [address] [place], [address] WBC (Bld) [#/Vol] 10.8 10*3/uL Normal 4.4-11.0 [facility] Comment on above: Performed By: #### L 501.4020, L500.2500, L100.0100 #### [facility] [address] [place], [address] CPK Total, Creatine Kinaseon 03-22-2024 CPK TOTAL 42 U/L Normal 26-192 [facility] Comment on above: Order Comment: 127.1 Performed By: #### L 501.2400, L500.4050, L100.0100 #### [facility] [address] [place], [address] CRPon 03-22-2024 C-REACTIVE PROT 25.70 mg/L High 0.0-3.0 [facility] Comment on above: Order Comment: 127.1 Result Comment: C-Re active Protein (CRP) provides useful information for the diagnosis, therapy and monitoring of inflammatory processes and associated diseases. For the evaluation of Relative Risk for Cardiovascular Disease, a High Sensitivity CRP (HSCRP) should be ordered. Performed By: #### L 501.2400, L500.4050, L100.0100 #### [facility] [address] [place], [address] Chest 1 View (Portable)on Chest 1 View (Portable) [facility] Services [address] [place], [place] [address] Chest 1 View (Portable) MR#: [id number] Acct: [id number] Name: KARLIE VALLE Rep #: [id number] : 1940 F 83 From: Nyasia bonilla MD PCP: Dr. Edouard Grayson MD Status: REG ER Study: Chest 1 View (Portable) Date of Exam: 03/22/24 Exam# [id number] Ordering Dr: Glenys Bland [id number] HISTORY: cough. TECHNIQUE: XR Chest 1 View. [...] Signed: Nyasia Hayes MD at 14:27 EST , CC: Dr. Edouard Grayson MD; MARY Rothman Anesthesia Technician: Signed Normal [facility] D-Dimer Quantitative (DVT/PE )on 03-22-2024 D-DIMER QUANT 0.37 FEU/ug/m Normal 0.27-0.49 [facility] Comment on above: Result Comment: NORM AL D-Dimer level (<0.50) indicates no DVT or PE. Performed By: #### L 501.2400, L500.4050, L100.0100 #### [facility] [address] [place], [place], [address] D-dimer measurement for deep venous thrombosisOrdered By: Chasity Huffman on 03-22-2024 D-Dimer Quantitative (PE/DVT) 0.37 FEU/ug/m 0.27-0.49 [facility] Comment on above: NORMAL D-Dimer level (<0.50) indicates no DVT or PE. Emergency Department Summary on 03-22-2024 Emergency Department Summary [facility] Medical Records Department [address] [place] [address] Emergency Department Summary 03/22/24 MR#: [id number] Acct: [id number] Name: KARLIE VALLE Rep #: [id number] : 1940 83 From: Glenys HERNANDEZ PCP: Dr. Edouard Grayson MD Status:ADM IN Location: [place] [address]-1 HPI History of Present Illness Chief Complaint: Shortness of Breath Narrative Narrative: 83-year-old female with PMH of HLD, CVA, A-fib on Eliquis, anemia was sent in from [facility]. She tested positive for COVID yesterday. She has had a fever of 101.1F, increased respiratory distress was found to be 84% on room air. She was given Tylenol at 9:15 AM. She is very weak and taking decreased p.o. intake. [facility] Medical History Depression GI bleed Dementia HTN (hypertension) Esophageal stenosis Angiodysplasia of duodenum Angiodysplasia of stomach Paroxysmal A-fib LAE (left atrial enlargement) Shingles GIB (gastrointestinal bleeding) Stroke/cerebrovascula r accident Atrial fibrillation Essential hypertension Polyp of nasal cavity Other chronic sinusitis Wears hearing aid Wears glasses Arthritis Kidney stones Migraine headache History of hiatal hernia Non-smoker Cardiology follow-up encounter Atherosclerosis of coronary artery of [place] heart without angina pectoris Osteoporosis IBS (irritable bowel syndrome) GERD (gastroesophageal reflux disease) Hyperlipidemia Home Medications ???Medication ???Instructions ???Recorded ???Last Taken ???Type acetaminophen 500 mg tablet 1,000 mg (2 x 500 mg) PO Q8 PRN 02/20/22 12/29/22 Rx fever/pain 1-10 #0 tabs metoprolol tartrate 25 mg tablet 25 mg PO BID BP 12/12/22 10/21/23 History menthol 0.44 %-zinc oxide 20.6 % [...] 13:00 03/22 (more content not included)... Normal [facility] Epithelial cells.squamous LM Ql (Urine sed)Ordered By: Glenys Bland on 03-22-2024 Epithelial cells.squamous LM.HPF (Urine sed) [#/Area] 10 /[HPF] 5-10 [facility] Erythrocyte Sed Rateon 03-22 SED RATE 56 mm/hr High 0-30 [facility] Comment on above: Performed By: #### L 501.2400, L500.4050, L100.0100 #### [facility] [address] [facility] [place], [place], [id number] Erythrocyte sedimentation ra teOrdered By: Chasity Huffman on 03-22-2024 ESR (Bld) [Velocity] 56 mm/h High 0-30 [facility] Ferritinon 03-22-2024 Ferritin [Mass/Vol] 14 ng/mL Normal 8-252 [facility] Comment on above: Order Comment: 127.1 Performed By: #### L 501.2400, L500.4050, L100.0100 #### [facility] [address] [place], [address] Ferritin measurementOrdered By: Chasity Huffman on 03-22-2024 Ferritin [Mass/Vol] 14 ng/mL 8-252 [facility] Glucose Ql (U)Ordered By: Katheryn Bland on 03-22-2024 Urine Glucose (UA) Normal mg/dl Normal [facility] H AND P Exam - Hospital[place] 03-22-2024 H&P Exam - Hospitalist [facility] Medical Records Department [address] [place] [address] H P Exam - Hospitalist 03/22/24 1435 MR#: [id number] Acct: [id number] Name: KARLIE VALLE Rep #: [id number] : 1940 83 From: Chasity Huffman MD PCP: Dr. Edouard Grayson MD Status:ADM [facility] - General General Date of Admission: [...] anemia/Fe deficiency anemia who presents to the [facility] ED on 03/22/24 with history of recent positive COVID testing 03/21/2024 at the [facility] with onset of fever at that time [...] has been a significant outbreak at the [facility] and several individuals have COVID. From review of records it appears as if she was started on Decadron and Paxlovid but unsure how many doses thus far. [facility] Medical History Depression GI bleed Dementia HTN (hypertension) Esophageal stenosis Angiodysplasia of duodenum Angiodysplasia of stomach Paroxysmal A-fib LAE (left atrial enlargement) Shingles GIB (gastrointestinal bleeding) Stroke/cerebrovascula r accident Atrial fibrillation Essential hypertension Polyp of nasal cavity Other chronic sinusitis Wears hearing aid Wears glasses Arthritis Kidney stones Migraine headache History of hiatal hernia Non-smoker Cardiology follow-up encounter Atherosclerosis of coronary artery of [place] heart without angina pectoris Osteoporosis IBS (irritable [...] powder ([place] (more content not included)... Normal [facility] Influenza virus A and B and SARS-CoV-2 (COVID-19) and Respiratory syncytial virus RNAOrdered By: Glenys Bland on 03-22-2024 SARS-CoV-2 (COVID-19) RNA CHRIS+probe Ql (Unsp spec) SARS-CoV-2 (COVID 19 PCR) Abnormal [facility] Ketones Test strip Ql (U)Ord ered By: Glenys Bland on 03-22-2024 Ketones Ql (U) Negative Negative [facility] L501.4020on 03-22-2024 TROPONIN-I HS 14 pg/mL Normal 3.0-54.0 [facility] Comment on above: Order Comment: 'TROP ' Serial specimen #1, #2 or #3: 1 Result Comment: Xin velazquez Note: New Test Units and Gender Specific Reference Ranges. For more information see Policy Stat Procedure [place] High Sensitivity Troponin (TNIH) and attachments. Performed By: #### L 501.4020, L500.2500, L100.0100 #### [facility] [address] [place], [address] LDHon 03-22-2024 LDH 173 U/L Normal 84-246 [facility] Comment on above: Order Comment: 127.1 Performed By: #### L 501.2400, L500.4050, L100.0100 #### [facility] [address] [place], [address] Lactate dehydrogenase (LDH) measurementOrdered By: Chasity Huffman on 03-22-2024 LDH [Catalytic activity/Vol] 173 U/L 84-246 [facility] Liver Profileon 03-22-2024 Albumin [Mass/Vol] 3.2 g/dL Normal 3.2-5.0 [facility] Comment on above: Order Comment: 127.1 Performed By: #### L 501.2400, L500.4050, L100.0100 #### [facility] [address] [place], [address] ALK P 98 U/L Normal 45-117 [facility] Comment on above: Order Comment: 127.1 Performed By: #### L 501.2400, L500.4050, L100.0100 #### [facility] [address] [place], [address] ALT [Catalytic activity/Vol] 29 U/L Normal 13-56 [facility] Comment on above: Order Comment: 127.1 Performed By: #### L 501.2400, L500.4050, L100.0100 #### [facility] [address] [place], [address] AST [Catalytic activity/Vol] 22 U/L Normal 15-37 [facility] Comment on above: Order Comment: 127.1 Performed By: #### L 501.2400, L500.4050, L100.0100 #### [facility] [address] [place], [address] Bilirubin [Mass/Vol] 0.60 mg/dL Normal 0.20-1.00 [facility] Comment on above: Order Comment: 127.1 Result Comment: For patients on eltrombopag therapy, use of Dimension [place] TBIL is not recommended. Performed By: #### L 501.2400, L500.4050, L100.0100 #### [facility] [address] [place], [address] Bilirubin.direct [Mass/Vol] 0.07 mg/dL Normal 0.00-0.30 [facility] Comment on above: Order Comment: 127.1 Performed By: #### L 501.2400, L500.4050, L100.0100 #### [facility] [address] [place], [address] Globulin (S) [Mass/Vol] 4.7 g/dL High 2.2-4.2 [facility] Comment on above: Order Comment: 127.1 Performed By: #### L 501.2400, L500.4050, L100.0100 #### [facility] [address] [place], [address] T PROT 7.9 g/dL Normal 6.4-8.2 [facility] Comment on above: Order Comment: 127.1 Performed By: #### L 501.2400, L500.4050, L100.0100 #### [facility] [address] [place], [address] M100.678on 03-22-2024 M100.678 Copy of report sent to Infection Control Printer [id number] 03/22/24 134James CALVERT. SARS-CoV-2 (COVID 19) A Positive A INFLUENZA A Negative INFLUENZA B Negative RSV PCR Negative SARS-CoV-2 (COVID 19 PCR) Normal [facility] Comment on above: Performed By: #### L 501.2400, L500.4050, L100.0100 #### [facility] [address] [place], [address] Microscopic analysis of urin e for red blood cells (RBC)Ordered By: Glenys Bland on 03-22-2024 Urine RBC 0-5 SEEN /hpf 0-5 [facility] Mucus LM Ql (Urine sed)Order ed By: Glenys Bland on 03-22-2024 Mucus Ql (Urine sed) 0 SEEN /hpf [facility] Nitrite Test strip Ql (U)Ord ered By: Glenys Bland on 03-22-2024 Nitrite Ql (U) Negative Negative [facility] Protein Test strip Ql (U)Ord ered By: Glenys Bland on 03-22-2024 Protein Ql (U) 15 mg/dl High Negative [facility] Serum procalcitonin measurem entOrdered By: Chasity Huffman on 03-22-2024 Procalcitonin 0.11 ng/mL High 0.00-0.09 [facility] Comment on above: A procalcitonin (PCT [...] ng/mL are obtained. Performed By: #### L 501.2400, L500.4050, L100.0100 #### [facility] [address] [place], [address] Total creatine kinase measur ementOrdered By: Chasity Huffman on 03-22-2024 CK [Catalytic activity/Vol] 42 U/L 26-192 [facility] Troponin IOrdered By: Glenys bustos on 03-22-2024 Troponin I High Sensitivity 14 pg/mL 3.0-54.0 [facility] Comment on above: Please Note: New Pam t Units and Gender Specific Reference Ranges. For more information see Policy Stat Procedure [place] High Sensitivity Troponin (TNIH) and attachments. Urinalysis, Completeon 03-22 BACTERIA Normal None Seen [facility] Comment on above: Order Comment: 'TROP ' Serial specimen #1, #2 or #3: 1 Result Comment: DUPL ICATE Performed By: #### L 501.4020, L500.2500, L100.0100 #### [facility] [address] [place], [address] BILIRUBIN URINE Normal Negative [facility] Comment on above: Order Comment: 'TROP ' Serial specimen #1, #2 or #3: 1 Result Comment: DUPL ICATE Performed By: #### L 501.4020, L500.2500, L100.0100 #### [facility] [address] [place], [address] Clarity (U) Normal Clear [facility] Comment on above: Order Comment: 'TROP ' Serial specimen #1, #2 or #3: 1 Result Comment: DUPL ICATE Performed By: #### L 501.4020, L500.2500, L100.0100 #### [facility] [address] [place], [address] Color (U) Normal Yellow [facility] Comment on above: Order Comment: 'TROP ' Serial specimen #1, #2 or #3: 1 Result Comment: DUPL ICATE Performed By: #### L 501.4020, L500.2500, L100.0100 #### [facility] [address] [place], [address] EPI,SQUAMOUS Normal 5-10 [facility] Comment on above: Order Comment: 'TROP ' Serial specimen #1, #2 or #3: 1 Result Comment: DUPL ICATE Performed By: #### L 501.4020, L500.2500, L100.0100 #### [facility] [address] [place], [address] GLUCOSE, UR Normal Normal [facility] Comment on above: Order Comment: 'TROP ' Serial specimen #1, #2 or #3: 1 Result Comment: DUPL ICATE Performed By: #### L 501.4020, L500.2500, L100.0100 #### [facility] [address] [place], [address] KETONE UR Normal Negative [facility] Comment on above: Order Comment: 'TROP ' Serial specimen #1, #2 or #3: 1 Result Comment: DUPL ICATE Performed By: #### L 501.4020, L500.2500, L100.0100 #### [facility] [address] [place], [address] LEUK ESTERASE Normal Negative [facility] Comment on above: Order Comment: 'TROP ' Serial specimen #1, #2 or #3: 1 Result Comment: DUPL ICATE Performed By: #### L 501.4020, L500.2500, L100.0100 #### [facility] [address] [place], [address] Mucus Ql (Urine sed) Normal [facility] Comment on above: Order Comment: 'TROP ' Serial specimen #1, #2 or #3: 1 Result Comment: DUPL ICATE Performed By: #### L 501.4020, L500.2500, L100.0100 #### [facility] [address] [place], [address] Nitrite Ql (U) Normal Negative [facility] Comment on above: Order Comment: 'TROP ' Serial specimen #1, #2 or #3: 1 Result Comment: DUPL ICATE Performed By: #### L 501.4020, L500.2500, L100.0100 #### [facility] [address] [place], [address] OCCULT BLOOD-UR Normal Negative [facility] Comment on above: Order Comment: 'TROP ' Serial specimen #1, #2 or #3: 1 Result Comment: DUPL ICATE Performed By: #### L 501.4020, L500.2500, L100.0100 #### [facility] [address] [place], [address] pH UR Normal 5.0 - 8.0 [facility] Comment on above: Order Comment: 'TROP ' Serial specimen #1, #2 or #3: 1 Result Comment: DUPL ICATE Performed By: #### L 501.4020, L500.2500, L100.0100 #### [facility] [address] [place], [address] PROT DIPSTX Normal Negative [facility] Comment on above: Order Comment: 'TROP ' Serial specimen #1, #2 or #3: 1 Result Comment: DUPL ICATE Performed By: #### L 501.4020, L500.2500, L100.0100 #### [facility] [address] [place], [address] RBC Normal 0-5 [facility] Comment on above: Order Comment: 'TROP ' Serial specimen #1, #2 or #3: 1 Result Comment: DUPL ICATE Performed By: #### L 501.4020, L500.2500, L100.0100 #### [facility] [address] [place], [address] SP.GR. DIPSTX Normal 1.002-1.030 [facility] Comment on above: Order Comment: 'TROP ' Serial specimen #1, #2 or #3: 1 Result Comment: DUPL ICATE Performed By: #### L 501.4020, L500.2500, L100.0100 #### [facility] [address] [place], [address] UR Preservative Normal [facility] Comment on above: Order Comment: 'TROP ' Serial specimen #1, #2 or #3: 1 Result Comment: DUPL ICATE Performed By: #### L 501.4020, L500.2500, L100.0100 #### [facility] [address] [place], [address] UROBILI Normal Normal [facility] Comment on above: Order Comment: 'TROP ' Serial specimen #1, #2 or #3: 1 Result Comment: DUPL ICATE Performed By: #### L 501.4020, L500.2500, L100.0100 #### [facility] [address] [place], [address] WBC Normal 0-5 [facility] Comment on above: Order Comment: 'TROP ' Serial specimen #1, #2 or #3: 1 Result Comment: DUPL ICATE Performed By: #### L 501.4020, L500.2500, L100.0100 #### [facility] [address] [place], [address] EPI,SQUAMOUS 10-25 SEEN Normal 5-10 [facility] Comment on above: Order Comment: 127.1 Performed By: #### L 501.2400, L500.4050, L100.0100 #### [facility] [address] [place], [address] BACTERIA 4+ /hpf Normal None Seen [facility] Comment on above: Order Comment: 127.1 Performed By: #### L 501.2400, L500.4050, L100.0100 #### [facility] [address] [place], [address] RBC 0-5 SEEN Normal 0-5 [facility] Comment on above: Order Comment: 127.1 Performed By: #### L 501.2400, L500.4050, L100.0100 #### [facility] [address] [place], [address] WBC 5-10 SEEN Normal 0-5 [facility] Comment on above: Order Comment: 127.1 Performed By: #### L 501.2400, L500.4050, L100.0100 #### [facility] [address] [place], [address] Mucus Ql (Urine sed) 0 SEEN Normal [facility] Comment on above: Order Comment: 127.1 Performed By: #### L 501.2400, L500.4050, L100.0100 #### [facility] [address] [place], [address] Urine blood detectionOrdered By: Glenys Bland on 03-22-2024 Urine Occult Blood 50 /ul High Negative [facility] Urine clarityOrdered By: Yvette Bland on 03-22-2024 Clarity (U) Cloudy Clear [facility] Urine color determinationOrd ered By: Glenys Bland on 03-22-2024 Color (U) Yellow Yellow [facility] Urine cultureOrdered By: Aut umn White on 03-22-2024 Bacteria identified Cx Nom (U) Enterococcus faecalis Abnormal [facility] Bacteria identified Cx Nom (U) Aerococcus urinae Abnormal [facility] Urine leukocyte esterase det ection by dipstickOrdered By: Glenyshiginio Bland on 03-22-2024 Leukocyte esterase Test strip Ql (U) 100 /ul High Negative [facility] Urine pHOrdered By: Glenys robledo on 03-22-2024 pH (U) 6.0 [pH] 5.0 - 8.0 [facility] Urine sediment bacteria coun t by microscopy (number/high power field)Ordered By: Glenys Bland on 03-22-2024 Bacteria LM.HPF (Urine sed) [#/Area] 4 /[HPF] None Seen [facility] Urine specific gravity measu rementOrdered By: Glenys Bland on 03-22-2024 Specific gravity (U) [Rel density] 1.020 1.002-1.030 [facility] Urobilinogen Ql (U)Ordered B y: Glenys Bland on 03-22-2024 Urine Urobilinogen Normal mg/dl Normal [facility] White blood cell countOrdere d By: Glenys Bland on 03-22-2024 Urine WBC 5-10 SEEN /hpf 0-5 [facility] CBC-Complete Blood Cnt No Di ffon 12-31-2023 Erythrocyte distribution width (RBC) [Ratio] 16.9 % High 11.6-14.6 [facility] Comment on above: Order Comment: 127.1 Performed By: #### L 100.0500 #### [facility] [address] [place], [address] Hematocrit (Bld) [Volume fraction] 32.0 % Low 37-47 [facility] Comment on above: Order Comment: 127.1 Performed By: #### L 100.0500 #### [facility] [address] [place], [address] Hemoglobin (Bld) [Mass/Vol] 10.0 g/dL Low 12.0-15.0 [facility] Comment on above: Order Comment: 127.1 Performed By: #### L 100.0500 #### [facility] [address] [place], [address] MCH (RBC) [Entitic mass] 27.2 pg Normal 27.0-32.0 [facility] Comment on above: Order Comment: 127.1 Performed By: #### L 100.0500 #### [facility] [address] [place], [address] MCHC (RBC) [Mass/Vol] 31.3 g/dL Low 32-36 [facility] Comment on above: Order Comment: 127.1 Performed By: #### L 100.0500 #### [facility] [address] [place], [address] MCV (RBC) [Entitic vol] 87.0 fL Normal 81-99 [facility] Comment on above: Order Comment: 127.1 Performed By: #### L 100.0500 #### [facility] [address] [place], [address] Platelet mean volume (Bld) [Entitic vol] 9.5 fL Normal 6.2-12.0 [facility] Comment on above: Order Comment: 127.1 Performed By: #### L 100.0500 #### [facility] [address] [place], [address] Platelets (Bld) [#/Vol] 345 10*3/uL Normal 150-450 [facility] Comment on above: Order Comment: 127.1 Performed By: #### L 100.0500 #### [facility] [address] [place], [address] RBC (Bld) [#/Vol] 3.68 10*6/uL Low 4.2-5.4 [facility] Comment on above: Order Comment: 127.1 Performed By: #### L 100.0500 #### [facility] [address] [place], [address] RDW SD 50.2 fl High 35.1-43.9 [facility] Comment on above: Order Comment: 127.1 Performed By: #### L 100.0500 #### [facility] [address] [place], [address] WBC (Bld) [#/Vol] 9.7 10*3/uL Normal 4.4-11.0 [facility] Comment on above: Order Comment: 127.1 Performed By: #### L 100.0500 #### [facility] [address] [place], [place], [id number] Urine Cultureon 12-15-2023 [facility] Streptococcus agalactiae (B) [place] Count 80,000-100,000 Streptococcus agalactiae (B): REACTION Ampicillin Islt YANCI <=0.25 Penicillin G Islt YANCI 0.12 S cefTRIAXone Islt YANCI <=0.12 S Clindamycin Islt YANCI >=1 R Clindamycin.induced Susc Islt NEG Linezolid Islt YANCI <=2 S Vancomycin Islt YANCI 0.5 S Normal [facility] Comment on above: Performed By: #### L [id number], L500.2500, L100.0100 #### [facility] [address] [facility] [place], [address] Basophil percentageOrdered B y: Edouard Grayson on 07-02-2023 Chloride [Moles/Vol] 111 mmol/L 98-107 [facility] Cholesterol [Mass/Vol] 154 mg/dL <200 [facility] Comment on above: <200 mg/dL Desirable 200-240 mg/dL Borderline >240 mg/dL High Risk Glucose [Mass/Vol] 118 mg/dL 74-106 [facility] Comment on above: Fasting Glucose resu lt from 100 to 125 mg/dL suggests IMPAIRED HOMEOSTASIS per A.D.A. criteria. Hemoglobin (Bld) [Mass/Vol] 10.5 g/dL 12.0-15.0 [facility] Potassium [Moles/Vol] 3.8 mmol/L 3.5-5.1 [facility] Sodium [Moles/Vol] 141 mmol/L 136-145 [facility] Triglyceride [Mass/Vol] 138 mg/dL <199 [facility] Comment on above: The drugs N-Acetylcy steine and Metamizole may falsely depress this assay.Serum Triglycerides Reference Interval Normal <150 mg/dL Borderline high 150 - 199 mg/dL High 200 - 499 mg/dL Very High > or = 500 mg/dL WBC (Bld) [#/Vol] 8.4 10*3/uL 4.4-11.0 [facility] Determination of erythrocyte mean corpuscular volume (MCV)Ordered By: Edouard Grayson on 07-02-2023 MCV (RBC) [Entitic vol] 84.8 fL 81-99 [facility] Erythrocyte distribution wid th ratioOrdered By: Edourad Grayson on 07-02-2023 Erythrocyte distribution width (RBC) [Ratio] 15.0 % 11.6-14.6 [facility] Erythrocyte distribution wid th standard deviationOrdered By: Edouard Grayson on 07-02-2023 Erythrocyte distribution width (RBC) [Entitic vol] 46.5 fL 35.1-43.9 [facility] Hematocrit Auto (Bld) [Volum e fraction]Ordered By: Edouard Grayson on 07-02-2023 Hematocrit (Bld) [Volume fraction] 33.4 % 37-47 [facility] - Chemistry and C hemistry - challengeOrdered By: Edouard Grayson on 07-02-2023 Cholesterol in HDL [Mass/Vol] 40 mg/dL >40 [facility] Comment on above: The drugs N-Acetylcy steine and Metamizole may falsely depress this assay. Reference Range HDL <40 mg/dL Low HDL Cholesterol HDL >or= 60 mg/dL High HDL Cholesterol Cholesterol in LDL [Mass/Vol] 86 mg/dL 0-130 [facility] CO2 [Moles/Vol] 24.0 mmol/L 21.0-32.0 [facility] Urea nitrogen/Creatinine [Mass ratio] 26.3 mg/mg 10-20 [facility] - Hematology and Cell countsOrdered By: Edouard Grayson on 07-02-2023 MCH (RBC) [Entitic mass] 26.6 pg 27.0-32.0 [facility] MCHC (RBC) [Mass/Vol] 31.4 g/dL 32-36 [facility] Platelet mean volume (Bld) [Entitic vol] 9.7 fL 6.2-12.0 [facility] Platelets (Bld) [#/Vol] 335 10*3/uL 150-450 [facility] No Panel InformationOrdered By: Edouard Grayson on 07-02-2023 Estimated GFR (MDRD) Amer 76 mL/min >60 [facility] Comment on above: GFR Calc Estimated GFR (MDRD) Non-Af Amer 63 mL/min >60 [facility] Comment on above: Non- GFR Calc VLDL Cholesterol 28 mg/dL 5-40 [facility] RBC Auto (Bld) [#/Vol]Ordere d By: Edouard Grayson on 07-02-2023 RBC (Bld) [#/Vol] 3.94 10*6/uL 4.2-5.4 [facility] Serum or plasma calcium jasmin urement (mass/volume)Ordered By: Edouard Grayson on 07-02-2023 Calcium [Mass/Vol] 8.7 mg/dL 8.5-10.1 [facility] Serum or plasma creatinine m easurement (mass/volume)Ordered By: Edourad Grayson on 07-02-2023 Creatinine [Mass/Vol] 0.91 mg/dL 0.55-1.02 [facility] Comment on above: The validity of the calculated GFR & GFRAA in patients over 70 years has not been determined. Clinical correlation is essential. Serum or plasma urea nitroge n measurement (mass/volume)Ordered By: Edouard Grayson on 07-02-2023 Urea nitrogen [Mass/Vol] 24 mg/dL 7-18 [facility] Thin prep Papanicolaou smear with manual screeningOrdered By: Edouard Grayson on 07-02-2023 Thin prep Papanicolaou smear with manual screening 6 5-15 [facility] Basophil percentageOrdered B y: Edouard Grayson on 05-02-2023 Hemoglobin (Bld) [Mass/Vol] 11.6 g/dL 12.0-15.0 [facility] WBC (Bld) [#/Vol] 10.2 10*3/uL 4.4-11.0 [facility] Determination of erythrocyte mean corpuscular volume (MCV)Ordered By: Edouard Grayson on 05-02-2023 MCV (RBC) [Entitic vol] 89.8 fL 81-99 [facility] Erythrocyte distribution wid th ratioOrdered By: Edouard Grayson on 05-02-2023 Erythrocyte distribution width (RBC) [Ratio] 14.8 % 11.6-14.6 [facility] Erythrocyte distribution wid th standard deviationOrdered By: Edouard Grayson on 05-02-2023 Erythrocyte distribution width (RBC) [Entitic vol] 48.8 fL 35.1-43.9 [facility] Hematocrit Auto (Bld) [Volum e fraction]Ordered By: Edouard Grayson on 05-02-2023 Hematocrit (Bld) [Volume fraction] 37.1 % 37-47 [facility] - Hematology and Cell countsOrdered By: Edouard Grayson on 05-02-2023 MCH (RBC) [Entitic mass] 28.1 pg 27.0-32.0 [facility] MCHC (RBC) [Mass/Vol] 31.3 g/dL 32-36 [facility] Platelet mean volume (Bld) [Entitic vol] 10.0 fL 6.2-12.0 [facility] Platelets (Bld) [#/Vol] 330 10*3/uL 150-450 [facility] RBC Auto (Bld) [#/Vol]Ordere d By: Edouard Grayson on 05-02-2023 RBC (Bld) [#/Vol] 4.13 10*6/uL 4.2-5.4 [facility] Basophil percentageOrdered B y: Edouard Grayson on 04-02-2023 Chloride [Moles/Vol] 111 mmol/L 98-107 [facility] Glucose [Mass/Vol] 115 mg/dL 74-106 [facility] Comment on above: Fasting Glucose resu lt from 100 to 125 mg/dL suggests IMPAIRED HOMEOSTASIS per A.D.A. criteria. Hemoglobin (Bld) [Mass/Vol] 11.4 g/dL 12.0-15.0 [facility] Potassium [Moles/Vol] 4.2 mmol/L 3.5-5.1 [facility] Sodium [Moles/Vol] 140 mmol/L 136-145 [facility] WBC (Bld) [#/Vol] 9.9 10*3/uL 4.4-11.0 [facility] Determination of erythrocyte mean corpuscular volume (MCV)Ordered By: Edouard Grayson on 04-02-2023 MCV (RBC) [Entitic vol] 86.4 fL 81-99 [facility] Erythrocyte distribution wid th ratioOrdered By: Edouard Grayson on 04-02-2023 Erythrocyte distribution width (RBC) [Ratio] 19.5 % 11.6-14.6 [facility] Erythrocyte distribution wid th standard deviationOrdered By: Edouard Grayson on 04-02-2023 Erythrocyte distribution width (RBC) [Entitic vol] 62.4 fL 35.1-43.9 [facility] Hematocrit Auto (Bld) [Volum e fraction]Ordered By: Edouard Grayson on 04-02-2023 Hematocrit (Bld) [Volume fraction] 36.9 % 37-47 [facility] - Chemistry and C hemistry - challengeOrdered By: Edouard Grayson on 04-02-2023 CO2 [Moles/Vol] 23.0 mmol/L 21.0-32.0 [facility] Urea nitrogen/Creatinine [Mass ratio] 24.4 mg/mg 10-20 [facility] - Hematology and Cell countsOrdered By: Edouard Grayson on 04-02-2023 MCH (RBC) [Entitic mass] 26.7 pg 27.0-32.0 [facility] MCHC (RBC) [Mass/Vol] 30.9 g/dL 32-36 [facility] Platelets (Bld) [#/Vol] 354 10*3/uL 150-450 [facility] No Panel InformationOrdered By: Edouard Grayson on 04-02-2023 Estimated GFR (MDRD) Amer 77 mL/min >60 [facility] Comment on above: GFR Calc Estimated GFR (MDRD) Non-Af Amer 64 mL/min >60 [facility] Comment on above: Non- GFR Calc Platelet mean volume Richard-Ec ker (Bld) [Entitic vol]Ordered By: Edouard Grayson on 04-02-2023 Platelet mean volume (Bld) [Entitic vol] 9.4 fL 6.2-12.0 [facility] RBC Auto (Bld) [#/Vol]Ordere d By: Edouard Grayson on 04-02-2023 RBC (Bld) [#/Vol] 4.27 10*6/uL 4.2-5.4 [facility] Serum or plasma calcium jasmin urement (mass/volume)Ordered By: Edouard Grayson on 04-02-2023 Calcium [Mass/Vol] 9.7 mg/dL 8.5-10.1 [facility] Serum or plasma creatinine m easurement (mass/volume)Ordered By: Edouard Grayson on 04-02-2023 Creatinine [Mass/Vol] 0.90 mg/dL 0.55-1.02 [facility] Comment on above: The validity of the calculated GFR & GFRAA in patients over 70 years has not been determined. Clinical correlation is essential. Serum or plasma urea nitroge n measurement (mass/volume)Ordered By: Edouard Grayson on 04-02-2023 Urea nitrogen [Mass/Vol] 22 mg/dL 7-18 [facility] Thin prep Papanicolaou smear with manual screeningOrdered By: Edouard Grayson on 04-02-2023 Thin prep Papanicolaou smear with manual screening 6 5-15 [facility] Basophil percentageOrdered B y: Edouard Grayson on 02-28-2023 WBC (Bld) [#/Vol] 7.9 10*3/uL 4.4-11.0 [facility] Blood erythrocytes count (nu mber/volume)Ordered By: Edouard Grayson on 02-28-2023 RBC (Bld) [#/Vol] 3.89 10*6/uL 4.2-5.4 [facility] Blood hemoglobin measurement (mass/volume)Ordered By: Edouard Grayson on 02-28-2023 Hemoglobin (Bld) [Mass/Vol] 10.6 g/dL 12.0-15.0 [facility] Blood manual differential co mment interpretation (narrative result)Ordered By: Edouard Grayson on 02-28-2023 Manual differential comment Zackary (Bld) [Interp] COMMENT [facility] Comment on above: 2+ ANISO. Blood platelet mean volumeOr dered By: Edouard Grayson on 02-28-2023 Platelet mean volume (Bld) [Entitic vol] 9.5 fL 6.2-12.0 [facility] Determination of erythrocyte mean corpuscular volume (MCV)Ordered By: Edouard Grayson on 02-28-2023 MCV (RBC) [Entitic vol] 86.6 fL 81-99 [facility] Hematocrit Auto (Bld) [Volum e fraction]Ordered By: Edouard Grayson on 02-28-2023 Hematocrit (Bld) [Volume fraction] 33.7 % 37-47 [facility] - Hematology and Cell countsOrdered By: Edouard Grayson on 02-28-2023 Erythrocyte distribution width (RBC) [Entitic vol] 74.8 fL 35.1-43.9 [facility] Erythrocyte distribution width (RBC) [Ratio] 24.0 % 11.6-14.6 [facility] MCH (RBC) [Entitic mass] 27.2 pg 27.0-32.0 [facility] MCHC Auto (RBC) [Mass/Vol]Or dered By: Edouard Grayson on 02-28-2023 MCHC (RBC) [Mass/Vol] 31.5 g/dL 32-36 [facility] Platelets bldOrdered By: Earl Grayson on 02-28-2023 Platelets (Bld) [#/Vol] 238 10*3/uL 150-450 [facility] Basophil percentageOrdered B y: Edouard Grayson on 02-07-2023 Chloride [Moles/Vol] 110 mmol/L 98-107 [facility] Glucose [Mass/Vol] 123 mg/dL 74-106 [facility] Comment on above: Fasting Glucose resu lt from 100 to 125 mg/dL suggests IMPAIRED HOMEOSTASIS per A.D.A. criteria. Potassium [Moles/Vol] 3.7 mmol/L 3.5-5.1 [facility] Sodium [Moles/Vol] 140 mmol/L 136-145 [facility] WBC (Bld) [#/Vol] 9.1 10*3/uL 4.4-11.0 [facility] Blood erythrocytes count (nu mber/volume)Ordered By: Edouard Grayson on 02-07-2023 RBC (Bld) [#/Vol] 4.23 10*6/uL 4.2-5.4 [facility] Blood hemoglobin measurement (mass/volume)Ordered By: Edouard Grayson on 02-07-2023 Hemoglobin (Bld) [Mass/Vol] 10.9 g/dL 12.0-15.0 [facility] Blood manual differential co mment interpretation (narrative result)Ordered By: Edouard Grayson on 02-07-2023 Manual differential comment Zackary (Bld) [Interp] SCANNED [facility] Comment on above: 2+ ANISOCYTOSIS1+ HI CROCYTOSIS1+ MACROCYTOSIS Blood platelet mean volumeOr dered By: Edouard Grayson on 02-07-2023 Platelet mean volume (Bld) [Entitic vol] 10.0 fL 6.2-12.0 [facility] Determination of erythrocyte mean corpuscular volume (MCV)Ordered By: Edouard Grayson on 02-07-2023 MCV (RBC) [Entitic vol] 85.1 fL 81-99 [facility] Erythrocyte sedimentation ra teOrdered By: Edouard Grayson on 02-07-2023 ESR (Bld) [Velocity] 68 mm/h 0-30 [facility] Hematocrit Auto (Bld) [Volum e fraction]Ordered By: Edouard Grayson on 02-07-2023 Hematocrit (Bld) [Volume fraction] 36.0 % 37-47 [facility] - Chemistry and C hemistry - challengeOrdered By: Edouard Grayson on 02-07-2023 CO2 [Moles/Vol] 26.0 mmol/L 21.0-32.0 [facility] Urea nitrogen/Creatinine [Mass ratio] 20.9 mg/mg 10-20 [facility] - Hematology and Cell countsOrdered By: Edouard Grayson on 02-07-2023 Erythrocyte distribution width (RBC) [Entitic vol] 67.1 fL 35.1-43.9 [facility] Erythrocyte distribution width (RBC) [Ratio] 21.7 % 11.6-14.6 [facility] MCH (RBC) [Entitic mass] 25.8 pg 27.0-32.0 [facility] MCHC Auto (RBC) [Mass/Vol]Or dered By: Edouard Grayson on 02-07-2023 MCHC (RBC) [Mass/Vol] 30.3 g/dL 32-36 [facility] No Panel InformationOrdered By: Edouard Grayson on 02-07-2023 Estimated GFR (MDRD) Amer 76 mL/min >60 [facility] Estimated GFR (MDRD) Non-Af Amer 63 mL/min >60 [facility] Platelets bldOrdered By: Earl Grayson on 02-07-2023 Platelets (Bld) [#/Vol] 346 10*3/uL 150-450 [facility] Serum or plasma calcium jasmin urement (mass/volume)Ordered By: Edouard Grayson on 02-07-2023 Calcium [Mass/Vol] 9.1 mg/dL 8.5-10.1 [facility] Serum or plasma creatinine m easurement (mass/volume)Ordered By: Edouard Grayson on 02-07-2023 Creatinine [Mass/Vol] 0.91 mg/dL 0.55-1.02 [facility] Comment on above: The validity of the calculated GFR & GFRAA in patients over 70 years has not been determined. Clinical correlation is essential. Serum or plasma urea nitroge n measurement (mass/volume)Ordered By: Edouard Grayson on 02-07-2023 Urea nitrogen [Mass/Vol] 19 mg/dL 7-18 [facility] Serum or plasma uric acid me asurement (mass/volume)Ordered By: Edouard Grayson on 02-07-2023 Urate [Mass/Vol] 5.4 mg/dL 2.6-6.0 [facility] Comment on above: The drugs N-Acetylcy steine and Metamizole may falsely depress this assay. Thin prep Papanicolaou smear with manual screeningOrdered By: Edouard Grayson on 02-07-2023 Thin prep Papanicolaou smear with manual screening 4 5-15 [facility] Basophil percentageOrdered B y: Edouard Grayson on 02-02-2023 WBC (Bld) [#/Vol] 7.8 10*3/uL 4.4-11.0 [facility] Blood erythrocytes count (nu mber/volume)Ordered By: Edouard Grayson on 02-02-2023 RBC (Bld) [#/Vol] 3.96 10*6/uL 4.2-5.4 [facility] Blood hemoglobin measurement (mass/volume)Ordered By: Edouard Grayson on 02-02-2023 Hemoglobin (Bld) [Mass/Vol] 10.3 g/dL 12.0-15.0 [facility] Blood manual differential co mment interpretation (narrative result)Ordered By: Edouard Grayson on 02-02-2023 Manual differential comment Zackary (Bld) [Interp] See comment [facility] Comment on above: ANISOCYTOSIS 1+ Blood platelet mean volumeOr dered By: Edouard Grayson on 02-02-2023 Platelet mean volume (Bld) [Entitic vol] 10.1 fL 6.2-12.0 [facility] Determination of erythrocyte mean corpuscular volume (MCV)Ordered By: Edouard Grayson on 02-02-2023 MCV (RBC) [Entitic vol] 84.6 fL 81-99 [facility] Hematocrit Auto (Bld) [Volum e fraction]Ordered By: Edouard Grayson on 02-02-2023 Hematocrit (Bld) [Volume fraction] 33.5 % 37-47 [facility] - Hematology and Cell countsOrdered By: Edouard Grayson on 02-02-2023 Erythrocyte distribution width (RBC) [Entitic vol] 64.2 fL 35.1-43.9 [facility] Erythrocyte distribution width (RBC) [Ratio] 21.0 % 11.6-14.6 [facility] MCH (RBC) [Entitic mass] 26.0 pg 27.0-32.0 [facility] MCHC Auto (RBC) [Mass/Vol]Or dered By: Edouard Grayson on 02-02-2023 MCHC (RBC) [Mass/Vol] 30.7 g/dL 32-36 [facility] Platelets bldOrdered By: Earl Grayson on 02-02-2023 Platelets (Bld) [#/Vol] 343 10*3/uL 150-450 [facility] Basophil percentageOrdered B y: Edouard Grayson on 01-19-2023 WBC (Bld) [#/Vol] 6.4 10*3/uL 4.4-11.0 [facility] Blood erythrocytes count (nu mber/volume)Ordered By: Edouard Grayson on 01-19-2023 RBC (Bld) [#/Vol] 4.45 10*6/uL 4.2-5.4 [facility] Blood hemoglobin measurement (mass/volume)Ordered By: Edouard Grayson on 01-19-2023 Hemoglobin (Bld) [Mass/Vol] 11.7 g/dL 12.0-15.0 [facility] Blood platelet mean volumeOr dered By: Edouard Grayson on 01-19-2023 Platelet mean volume (Bld) [Entitic vol] 10.1 fL 6.2-12.0 [facility] Determination of erythrocyte mean corpuscular volume (MCV)Ordered By: Edouard Grayson on 01-19-2023 MCV (RBC) [Entitic vol] 84.0 fL 81-99 [facility] Hematocrit Auto (Bld) [Volum e fraction]Ordered By: Edouard Grayson on 01-19-2023 Hematocrit (Bld) [Volume fraction] 37.4 % 37-47 [facility] - Hematology and Cell countsOrdered By: Edouard Grayson on 01-19-2023 Erythrocyte distribution width (RBC) [Entitic vol] 61.0 fL 35.1-43.9 [facility] Erythrocyte distribution width (RBC) [Ratio] 19.9 % 11.6-14.6 [facility] MCH (RBC) [Entitic mass] 26.3 pg 27.0-32.0 [facility] MCHC Auto (RBC) [Mass/Vol]Or dered By: Edouard Grayson on 01-19-2023 MCHC (RBC) [Mass/Vol] 31.3 g/dL 32-36 [facility] Platelets bldOrdered By: Earl Grayson on 01-19-2023 Platelets (Bld) [#/Vol] 287 10*3/uL 150-450 [facility] Absolute lymphocyte countOrd ered By: Edouard Grayson on 01-08-2023 Lymphocytes Auto (Unsp spec) [#/Vol] 2.86 10*3/uL 0.83-4.51 [facility] Basophil percentageOrdered B y: Edouard Grayson on 01-08-2023 Amylase [Catalytic activity/Vol] 34 U/L 25-115 [facility] Basophils/100 WBC (Bld) 0.6 % 0-1 [facility] Bilirubin [Mass/Vol] 0.60 mg/dL 0.20-1.00 [facility] Comment on above: For patients on eltr ombopag therapy, use of Dimension [place] TBIL is not recommended. Chloride [Moles/Vol] 109 mmol/L 98-107 [facility] Eosinophils/100 WBC (Bld) 3.3 % 0-5 [facility] Glucose [Mass/Vol] 99 mg/dL 74-106 [facility] Neutrophils (Bld) [#/Vol] 5.2 10*3/uL 2.0-7.7 [facility] Neutrophils/100 WBC (Bld) 55.7 % 47-70 [facility] Potassium [Moles/Vol] 3.6 mmol/L 3.5-5.1 [facility] Protein [Mass/Vol] 7.4 g/dL 6.4-8.2 [facility] Sodium [Moles/Vol] 141 mmol/L 136-145 [facility] WBC (Bld) [#/Vol] 9.3 10*3/uL 4.4-11.0 [facility] Blood erythrocytes count (nu mber/volume)Ordered By: Edouard Grayson on 01-08-2023 RBC (Bld) [#/Vol] 4.29 10*6/uL 4.2-5.4 [facility] Blood hemoglobin measurement (mass/volume)Ordered By: Edouard Grayson on 01-08-2023 Hemoglobin (Bld) [Mass/Vol] 10.9 g/dL 12.0-15.0 [facility] Blood lymphocytes/100 leukoc ytesOrdered By: Edouard Grayson on 01-08-2023 Lymphocytes/100 WBC (Bld) 30.7 % 19-41 [facility] Blood monocytes/100 leukocyt esOrdered By: Edouard Grayson on 01-08-2023 Monocytes/100 WBC (Bld) 9.3 % 0-10 [facility] Blood platelet mean volumeOr dered By: Edouard Grayson on 01-08-2023 Platelet mean volume (Bld) [Entitic vol] 9.7 fL 6.2-12.0 [facility] Determination of erythrocyte mean corpuscular volume (MCV)Ordered By: Edouard Grayson on 01-08-2023 MCV (RBC) [Entitic vol] 83.4 fL 81-99 [facility] Hematocrit Auto (Bld) [Volum e fraction]Ordered By: Edouard Grayson on 01-08-2023 Hematocrit (Bld) [Volume fraction] 35.8 % 37-47 [facility] - Chemistry and C hemistry - challengeOrdered By: Edouard Grayson on 01-08-2023 ALP [Catalytic activity/Vol] 88 U/L 45-117 [facility] ALT [Catalytic activity/Vol] 18 U/L 13-56 [facility] CO2 [Moles/Vol] 27.0 mmol/L 21.0-32.0 [facility] Globulin (S) [Mass/Vol] 4.3 g/dL 2.2-4.2 [facility] Urea nitrogen/Creatinine [Mass ratio] 20.0 mg/mg 10-20 [facility] - Hematology and Cell countsOrdered By: Edouard Grayson on 01-08-2023 Erythrocyte distribution width (RBC) [Entitic vol] 56.0 fL 35.1-43.9 [facility] Erythrocyte distribution width (RBC) [Ratio] 18.5 % 11.6-14.6 [facility] Immature granulocytes/100 WBC (Bld) 0.400 % 0.0-0.9 [facility] Comment on above: IG% - Immature Granu locytes (promyelocytes, myelocytes and metamyelocytes) > 1% indicates that a LEFT SHIFT is Present. MCH (RBC) [Entitic mass] 25.4 pg 27.0-32.0 [facility] Nucleated RBC/100 WBC (Bld) [Ratio] 0 % 0-5 [facility] MCHC Auto (RBC) [Mass/Vol]Or dered By: Edouard Grayson on 01-08-2023 MCHC (RBC) [Mass/Vol] 30.4 g/dL 32-36 [facility] No Panel InformationOrdered By: Edouard Grayson on 01-08-2023 Estimated GFR (MDRD) Amer 78 mL/min >60 [facility] Comment on above: GFR Calc Estimated GFR (MDRD) Non-Af Amer 64 mL/min >60 [facility] Comment on above: Non- GFR Calc Platelets bldOrdered By: Earl Grayson on 01-08-2023 Platelets (Bld) [#/Vol] 388 10*3/uL 150-450 [facility] Serum or plasma albumin jasmin urement (mass/volume)Ordered By: Edouard Grayson on 01-08-2023 Albumin [Mass/Vol] 3.1 g/dL 3.2-5.0 [facility] Serum or plasma albumin/glob ulin mass ratioOrdered By: Edouard Grayson on 01-08-2023 Albumin/Globulin [Mass ratio] 0.7 {ratio} 0.9-2.4 [facility] Serum or plasma calcium jasmin urement (mass/volume)Ordered By: Edouard Grayson on 01-08-2023 Calcium [Mass/Vol] 9.1 mg/dL 8.5-10.1 [facility] Serum or plasma creatinine m easurement (mass/volume)Ordered By: Edouard Grayson on 01-08-2023 Creatinine [Mass/Vol] 0.90 mg/dL 0.55-1.02 [facility] Comment on above: The validity of the calculated GFR & GFRAA in patients over 70 years has not been determined. Clinical correlation is essential. Serum or plasma urea nitroge n measurement (mass/volume)Ordered By: Edouard Grayson on 01-08-2023 Urea nitrogen [Mass/Vol] 18 mg/dL 7-18 [facility] Thin prep Papanicolaou smear with manual screeningOrdered By: Edouard Grayson on 01-08-2023 Thin prep Papanicolaou smear with manual screening 12 U/L 15-37 [facility] Thin prep Papanicolaou smear with manual screening 5 5-15 [facility] Absolute lymphocyte countOrd ered By: Edouard Grayson on 01-05-2023 Lymphocytes Auto (Unsp spec) [#/Vol] 2.09 10*3/uL 0.83-4.51 [facility] Basophil percentageOrdered B y: Edouard Grayson on 01-05-2023 Basophils/100 WBC (Bld) 0.6 % 0-1 [facility] Chloride [Moles/Vol] 113 mmol/L 98-107 [facility] Eosinophils/100 WBC (Bld) 4.2 % 0-5 [facility] Glucose [Mass/Vol] 98 mg/dL 74-106 [facility] Neutrophils (Bld) [#/Vol] 5.6 10*3/uL 2.0-7.7 [facility] Neutrophils/100 WBC (Bld) 62.2 % 47-70 [facility] Potassium [Moles/Vol] 3.2 mmol/L 3.5-5.1 [facility] Sodium [Moles/Vol] 143 mmol/L 136-145 [facility] WBC (Bld) [#/Vol] 9.0 10*3/uL 4.4-11.0 [facility] Blood erythrocytes count (nu mber/volume)Ordered By: Edouard Grayson on 01-05-2023 RBC (Bld) [#/Vol] 3.86 10*6/uL 4.2-5.4 [facility] Blood hemoglobin measurement (mass/volume)Ordered By: Edouard Grayson on 01-05-2023 Hemoglobin (Bld) [Mass/Vol] 10.0 g/dL 12.0-15.0 [facility] Blood lymphocytes/100 leukoc ytesOrdered By: Edouard Grayson on 01-05-2023 Lymphocytes/100 WBC (Bld) 23.4 % 19-41 [facility] Blood monocytes/100 leukocyt esOrdered By: Edouard Grayson on 01-05-2023 Monocytes/100 WBC (Bld) 9.3 % 0-10 [facility] Blood platelet mean volumeOr dered By: Edouard Grayson on 01-05-2023 Platelet mean volume (Bld) [Entitic vol] 10.1 fL 6.2-12.0 [facility] Determination of erythrocyte mean corpuscular volume (MCV)Ordered By: Edouard Grayson on 01-05-2023 MCV (RBC) [Entitic vol] 85.5 fL 81-99 [facility] Comment on above: Delta: 81.2 on 01/01-0540 Hematocrit Auto (Bld) [Volum e fraction]Ordered By: Edouard Grayson on 01-05-2023 Hematocrit (Bld) [Volume fraction] 33.0 % 37-47 [facility] Laboratory - Chemistry and C hemistry - challengeOrdered By: Edouard Grayson on 01-05-2023 CO2 [Moles/Vol] 23.0 mmol/L 21.0-32.0 [facility] Urea nitrogen/Creatinine [Mass ratio] 22.5 mg/mg 10-20 [facility] - Hematology and Cell countsOrdered By: Edoaurd Grayson on 01-05-2023 Erythrocyte distribution width (RBC) [Entitic vol] 57.1 fL 35.1-43.9 [facility] Erythrocyte distribution width (RBC) [Ratio] 18.6 % 11.6-14.6 [facility] Immature granulocytes/100 WBC (Bld) 0.300 % 0.0-0.9 [facility] Comment on above: IG% - Immature Granu locytes (promyelocytes, myelocytes and metamyelocytes) > 1% indicates that a LEFT SHIFT is Present. MCH (RBC) [Entitic mass] 25.9 pg 27.0-32.0 [facility] Nucleated RBC/100 WBC (Bld) [Ratio] 0 % 0-5 [facility] MCHC Auto (RBC) [Mass/Vol]Or dered By: Edouard Grayson on 01-05-2023 MCHC (RBC) [Mass/Vol] 30.3 g/dL 32-36 [facility] Comment on above: Delta: 32.1 on 01/01 No Panel InformationOrdered By: Edouard Grayson on 01-05-2023 Estimated GFR (MDRD) Amer 79 mL/min >60 [facility] Comment on above: GFR Calc Estimated GFR (MDRD) Non-Af Amer 65 mL/min >60 [facility] Comment on above: Non- GFR Calc Platelets bldOrdered By: Earl Grayson on 01-05-2023 Platelets (Bld) [#/Vol] 300 10*3/uL 150-450 [facility] Serum or plasma calcium jasmin urement (mass/volume)Ordered By: Edouard Grayson on 01-05-2023 Calcium [Mass/Vol] 8.7 mg/dL 8.5-10.1 [facility] Serum or plasma creatinine m easurement (mass/volume)Ordered By: Edouard Grayson on 01-05-2023 Creatinine [Mass/Vol] 0.89 mg/dL 0.55-1.02 [facility] Comment on above: The validity of the calculated GFR & GFRAA in patients over 70 years has not been determined. Clinical correlation is essential. Serum or plasma urea nitroge n measurement (mass/volume)Ordered By: Edouard Grayson on 01-05-2023 Urea nitrogen [Mass/Vol] 20 mg/dL 7-18 [facility] Thin prep Papanicolaou smear with manual screeningOrdered By: Edouard Grayson on 01-05-2023 Thin prep Papanicolaou smear with manual screening 7 5-15 [facility] Basophil percentageOrdered B y: Stefano Palmer on 01-02-2023 Chloride [Moles/Vol] 118 mmol/L 98-107 [facility] Glucose [Mass/Vol] 108 mg/dL 74-106 [facility] Comment on above: Fasting Glucose resu lt from 100 to 125 mg/dL suggests IMPAIRED HOMEOSTASIS per A.D.A. criteria. Potassium [Moles/Vol] 3.7 mmol/L 3.5-5.1 [facility] Sodium [Moles/Vol] 143 mmol/L 136-145 [facility] Laboratory - Chemistry and C hemistry - challengeOrdered By: Stefano Palmer on 01-02-2023 CO2 [Moles/Vol] 21.0 mmol/L 21.0-32.0 [facility] Urea nitrogen/Creatinine [Mass ratio] 18.0 mg/mg - [facility] No Panel InformationOrdered By: Stefano Palmer on 01-02-2023 Estimated Creatinine Clearance Calc 29.04 ml/min [facility] Estimated GFR (MDRD) Amer 61 mL/min >60 [facility] Comment on above: GFR Calc Estimated GFR (MDRD) Non-Af Amer 50 mL/min >60 [facility] Comment on above: Non- GFR Calc Serum or plasma calcium jasmin urement (mass/volume)Ordered By: Stefano Palmer on 01-02-2023 Calcium [Mass/Vol] 8.8 mg/dL 8.5-10.1 [facility] Serum or plasma creatinine m easurement (mass/volume)Ordered By: Stefano Palmer on 01-02-2023 Creatinine [Mass/Vol] 1.11 mg/dL 0.55-1.02 [facility] Comment on above: The validity of the calculated GFR & GFRAA in patients over 70 years has not been determined. Clinical correlation is essential. Serum or plasma urea nitroge n measurement (mass/volume)Ordered By: Stefano Palmer on 01-02-2023 Urea nitrogen [Mass/Vol] 20 mg/dL - [facility] Thin prep Papanicolaou smear with manual screeningOrdered By: Stefano Palmer on 01-02-2023 Thin prep Papanicolaou smear with manual screening 4 5-15 [facility] Absolute lymphocyte countOrd ered By: Helene Khan on 01-01-2023 Lymphocytes Auto (Unsp spec) [#/Vol] 2.98 10*3/uL 0.83-4.51 [facility] Basophil percentageOrdered B y: Helene Khan on 01-01-2023 Basophils/100 WBC (Bld) 0.5 % 0-1 [facility] Eosinophils/100 WBC (Bld) 2.5 % 0-5 [facility] Neutrophils (Bld) [#/Vol] 7.0 10*3/uL 2.0-7.7 [facility] Neutrophils/100 WBC (Bld) 60.3 % 47-70 [facility] WBC (Bld) [#/Vol] 11.6 10*3/uL 4.4-11.0 [facility] Blood erythrocytes count (nu mber/volume)Ordered By: Helene Khan on 01-01-2023 RBC (Bld) [#/Vol] 4.10 10*6/uL 4.2-5.4 [facility] Blood hemoglobin measurement (mass/volume)Ordered By: Helene Khan on 01-01-2023 Hemoglobin (Bld) [Mass/Vol] 10.7 g/dL 12.0-15.0 [facility] Blood lymphocytes/100 leukoc ytesOrdered By: Helene Khan on 01-01-2023 Lymphocytes/100 WBC (Bld) 25.8 % 19-41 [facility] Blood monocytes/100 leukocyt esOrdered By: Helene Khan on 01-01-2023 Monocytes/100 WBC (Bld) 10.6 % 0-10 [facility] Blood platelet mean volumeOr dered By: Helene Khan on 01-01-2023 Platelet mean volume (Bld) [Entitic vol] 9.6 fL 6.2-12.0 [facility] Determination of erythrocyte mean corpuscular volume (MCV)Ordered By: Helene Khan on 01-01-2023 MCV (RBC) [Entitic vol] 81.2 fL 81-99 [facility] Hematocrit Auto (Bld) [Volum e fraction]Ordered By: Helene Khan on 01-01-2023 Hematocrit (Bld) [Volume fraction] 33.3 % 37-47 [facility] - Hematology and Cell countsOrdered By: Helene Khan on 01-01-2023 Erythrocyte distribution width (RBC) [Entitic vol] 48.6 fL 35.1-43.9 [facility] Erythrocyte distribution width (RBC) [Ratio] 16.9 % 11.6-14.6 [facility] Immature granulocytes/100 WBC (Bld) 0.300 % 0.0-0.9 [facility] Comment on above: IG% - Immature Granu locytes (promyelocytes, myelocytes and metamyelocytes) > 1% indicates that a LEFT SHIFT is Present. MCH (RBC) [Entitic mass] 26.1 pg 27.0-32.0 [facility] Nucleated RBC/100 WBC (Bld) [Ratio] 0 % 0-5 [facility] MCHC Auto (RBC) [Mass/Vol]Or dered By: Helene Khan on 01-01-2023 MCHC (RBC) [Mass/Vol] 32.1 g/dL 32-36 [facility] Comment on above: Delta: 30.5 on 12/31-0550 Platelets bldOrdered By: Caitie Khan on 01-01-2023 Platelets (Bld) [#/Vol] 363 10*3/uL 150-450 [facility] Basophil percentageOrdered B y: Chasity Huffman on 12-31-2022 Bilirubin [Mass/Vol] 1.10 mg/dL 0.20-1.00 [facility] Comment on above: For patients on eltr ombopag therapy, use of Dimension [place] TBIL is not recommended. Protein [Mass/Vol] 6.9 g/dL 6.4-8.2 [facility] Laboratory - Chemistry and C hemistry - challengeOrdered By: Chasity Huffman on 12-31-2022 ALP [Catalytic activity/Vol] 93 U/L 45-117 [facility] ALT [Catalytic activity/Vol] 22 U/L 13-56 [facility] Globulin (S) [Mass/Vol] 3.8 g/dL 2.2-4.2 [facility] Serum or plasma albumin jasmin urement (mass/volume)Ordered By: Chasity Huffman on 12-31-2022 Albumin [Mass/Vol] 3.1 g/dL 3.2-5.0 [facility] Serum or plasma albumin/glob ulin mass ratioOrdered By: Chasity Huffman on 12-31-2022 Albumin/Globulin [Mass ratio] 0.8 {ratio} 0.9-2.4 [facility] Thin prep Papanicolaou smear with manual screeningOrdered By: Chasity Huffman on 12-31-2022 Thin prep Papanicolaou smear with manual screening 16 U/L 15-37 [facility] Basophil percentageOrdered B y: Edouard Grayson on 12-30-2022 WBC (Bld) [#/Vol] 10.2 10*3/uL 4.4-11.0 [facility] Blood erythrocytes count (nu mber/volume)Ordered By: Edouard Grayson on 12-30-2022 RBC (Bld) [#/Vol] 2.67 10*6/uL 4.2-5.4 [facility] Blood hemoglobin measurement (mass/volume)Ordered By: Edouard Grayson on 12-30-2022 Hemoglobin (Bld) [Mass/Vol] 6.1 g/dL 12.0-15.0 [facility] Blood platelet mean volumeOr dered By: Edouard Grayson on 12-30-2022 Platelet mean volume (Bld) [Entitic vol] 10.3 fL 6.2-12.0 [facility] Determination of erythrocyte mean corpuscular volume (MCV)Ordered By: Edouard Grayson on 12-30-2022 MCV (RBC) [Entitic vol] 82.4 fL 81-99 [facility] Hematocrit Auto (Bld) [Volum e fraction]Ordered By: Edouard Grayson on 12-30-2022 Hematocrit (Bld) [Volume fraction] 22.0 % 37-47 [facility] - Hematology and Cell countsOrdered By: Edouard Grayson on 12-30-2022 Erythrocyte distribution width (RBC) [Entitic vol] 48.0 fL 35.1-43.9 [facility] Erythrocyte distribution width (RBC) [Ratio] 15.9 % 11.6-14.6 [facility] MCH (RBC) [Entitic mass] 22.8 pg 27.0-32.0 [facility] MCHC Auto (RBC) [Mass/Vol]Or dered By: Edouard Grayson on 12-30-2022 MCHC (RBC) [Mass/Vol] 27.7 g/dL 32-36 [facility] Platelets bldOrdered By: Earl Grayson on 12-30-2022 Platelets (Bld) [#/Vol] 427 10*3/uL 150-450 [facility] Stool gastrointestinal hemog lobin detection by immunologic methodOrdered By: Danyel Viveros on 12-30-2022 Lower GI hemoglobin IA Ql (Stl) [facility] Lower GI hemoglobin IA Ql (Stl) [facility] Basophil percentageOrdered B y: Edouard Grayson on 12-28-2022 Chloride [Moles/Vol] 111 mmol/L 98-107 [facility] Glucose [Mass/Vol] 133 mg/dL 74-106 [facility] Comment on above: Fasting Glucose resu lt greater than or equal to 126 mg/dL suggests DIABETES MELLITUS per A.D.A. criteria. Potassium [Moles/Vol] 3.8 mmol/L 3.5-5.1 [facility] Sodium [Moles/Vol] 141 mmol/L 136-145 [facility] WBC (Bld) [#/Vol] 10.1 10*3/uL 4.4-11.0 [facility] Blood erythrocytes count (nu mber/volume)Ordered By: Edouard Grayson on 12-28-2022 RBC (Bld) [#/Vol] 2.92 10*6/uL 4.2-5.4 [facility] Blood hemoglobin measurement (mass/volume)Ordered By: Edouard Grayson on 12-28-2022 Hemoglobin (Bld) [Mass/Vol] 6.7 g/dL 12.0-15.0 [facility] Blood platelet mean volumeOr dered By: Edouard Grayson on 12-28-2022 Platelet mean volume (Bld) [Entitic vol] 10.3 fL 6.2-12.0 [facility] Determination of erythrocyte mean corpuscular volume (MCV)Ordered By: Edouard Grayson on 12-28-2022 MCV (RBC) [Entitic vol] 82.9 fL 81-99 [facility] Hematocrit Auto (Bld) [Volum e fraction]Ordered By: Edouard Grayson on 12-28-2022 Hematocrit (Bld) [Volume fraction] 24.2 % 37-47 [facility] Laboratory - Chemistry and C hemistry - challengeOrdered By: Edouard Grayson on 12-28-2022 CO2 [Moles/Vol] 22.0 mmol/L 21.0-32.0 [facility] Urea nitrogen/Creatinine [Mass ratio] 20.9 mg/mg 10 [facility] - Hematology and Cell countsOrdered By: Edouard Grayson on 12-28-2022 Erythrocyte distribution width (RBC) [Entitic vol] 47.9 fL 35.1-43.9 [facility] Erythrocyte distribution width (RBC) [Ratio] 15.7 % 11.6-14.6 [facility] MCH (RBC) [Entitic mass] 22.9 pg 27.0-32.0 [facility] MCHC Auto (RBC) [Mass/Vol]Or dered By: Edouard Grayson on 12-28-2022 MCHC (RBC) [Mass/Vol] 27.7 g/dL 32-36 [facility] No Panel InformationOrdered By: Edouard Grayson on 12-28-2022 Estimated GFR (MDRD) Amer 72 mL/min >60 [facility] Comment on above: GFR Calc Estimated GFR (MDRD) Non-Af Amer 60 mL/min >60 [facility] Comment on above: Non- GFR Calc Platelets bldOrdered By: Earl Grayson on 12-28-2022 Platelets (Bld) [#/Vol] 449 10*3/uL 150-450 [facility] Serum or plasma calcium jasmin urement (mass/volume)Ordered By: Edouard Grayson on 12-28-2022 Calcium [Mass/Vol] 9.1 mg/dL 8.5-10.1 [facility] Serum or plasma creatinine m easurement (mass/volume)Ordered By: Edouard Grayson on 12-28-2022 Creatinine [Mass/Vol] 0.96 mg/dL 0.55-1.02 [facility] Comment on above: The validity of the calculated GFR & GFRAA in patients over 70 years has not been determined. Clinical correlation is essential. Serum or plasma urea nitroge n measurement (mass/volume)Ordered By: Edouard Grayson on 12-28-2022 Urea nitrogen [Mass/Vol] 20 mg/dL 09-26 [facility] Thin prep Papanicolaou smear with manual screeningOrdered By: Edouard Grayson on 12-28-2022 Thin prep Papanicolaou smear with manual screening 8 5-15 [facility] Basophil percentageOrdered B y: Edouard Grayson on 09-28-2022 Chloride [Moles/Vol] 109 mmol/L 98-107 [facility] Cholesterol [Mass/Vol] 159 mg/dL <200 [facility] Comment on above: <200 mg/dL Desirable 200-240 mg/dL Borderline >240 mg/dL High Risk Glucose [Mass/Vol] 98 mg/dL 74-106 [facility] Potassium [Moles/Vol] 3.6 mmol/L 3.5-5.1 [facility] Sodium [Moles/Vol] 142 mmol/L 136-145 [facility] Triglyceride [Mass/Vol] 195 mg/dL <199 [facility] Comment on above: The drugs N-Acetylcy steine and Metamizole may falsely depress this assay.Serum Triglycerides Reference Interval Normal <150 mg/dL Borderline high 150 - 199 mg/dL High 200 - 499 mg/dL Very High > or = 500 mg/dL WBC (Bld) [#/Vol] 7.4 10*3/uL 4.4-11.0 [facility] Blood erythrocytes count (nu mber/volume)Ordered By: Edouard Grayson on 09-28-2022 RBC (Bld) [#/Vol] 4.15 10*6/uL 4.2-5.4 [facility] Blood hemoglobin measurement (mass/volume)Ordered By: Edouard Grayson on 09-28-2022 Hemoglobin (Bld) [Mass/Vol] 11.8 g/dL 12.0-15.0 [facility] Blood platelet mean volumeOr dered By: Edouard Grayson on 09-28-2022 Platelet mean volume (Bld) [Entitic vol] 10.1 fL 6.2-12.0 [facility] Determination of erythrocyte mean corpuscular volume (MCV)Ordered By: Edouard Grayson on 09-28-2022 MCV (RBC) [Entitic vol] 93.3 fL 81-99 [facility] Hematocrit Auto (Bld) [Volum e fraction]Ordered By: Edouard Grayson on 09-28-2022 Hematocrit (Bld) [Volume fraction] 38.7 % 37-47 [facility] Laboratory - Chemistry and C hemistry - challengeOrdered By: Edouard Grayson on 09-28-2022 CO2 [Moles/Vol] 26.0 mmol/L 21.0-32.0 [facility] Urea nitrogen/Creatinine [Mass ratio] 22.5 mg/mg 10-20 [facility] - Hematology and Cell countsOrdered By: Edouard Grayson on 09-28-2022 Erythrocyte distribution width (RBC) [Entitic vol] 47.7 fL 35.1-43.9 [facility] Erythrocyte distribution width (RBC) [Ratio] 14.1 % 11.6-14.6 [facility] MCH (RBC) [Entitic mass] 28.4 pg 27.0-32.0 [facility] MCHC Auto (RBC) [Mass/Vol]Or dered By: Edouard Grayson on 09-28-2022 MCHC (RBC) [Mass/Vol] 30.5 g/dL 32-36 [facility] No Panel InformationOrdered By: Edouard Grayson on 09-28-2022 Estimated GFR (MDRD) Amer 79 mL/min >60 [facility] Comment on above: GFR Calc Estimated GFR (MDRD) Non-Af Amer 65 mL/min >60 [facility] Comment on above: Non- GFR Calc Platelets bldOrdered By: Earl Grayson on 09-28-2022 Platelets (Bld) [#/Vol] 394 10*3/uL 150-450 [facility] Serum or plasma calcium jasmin urement (mass/volume)Ordered By: Edouard Grayson on 09-28-2022 Calcium [Mass/Vol] 9.6 mg/dL 8.5-10.1 [facility] Serum or plasma cholesterol in HDL measurement (mass/volume)Ordered By: Edouard Grayson on 09-28-2022 Cholesterol in HDL [Mass/Vol] 49 mg/dL >40 [facility] Comment on above: The drugs N-Acetylcy steine and Metamizole may falsely depress this assay. Reference Range HDL <40 mg/dL Low HDL Cholesterol HDL >or= 60 mg/dL High HDL Cholesterol Serum or plasma cholesterol in VLDL measurement (mass/volume)Ordered By: Eoduard Grayson on 09-28-2022 Cholesterol in VLDL [Mass/Vol] 39 mg/dL 5-40 [facility] Serum or plasma creatinine m easurement (mass/volume)Ordered By: Edouard Grayson on 09-28-2022 Creatinine [Mass/Vol] 0.89 mg/dL 0.55-1.02 [facility] Comment on above: The validity of the calculated GFR & GFRAA in patients over 70 years has not been determined. Clinical correlation is essential. Serum or plasma low density lipoprotein (LDL) cholesterol measurement (mass/volume)Ordered By: Edouard Grayson on 09-28-2022 Cholesterol in LDL [Mass/Vol] 71 mg/dL 0-130 [facility] Serum or plasma urea nitroge n measurement (mass/volume)Ordered By: Edouard Grayson on 09-28-2022 Urea nitrogen [Mass/Vol] 20 mg/dL 7-18 [facility] Thin prep Papanicolaou smear with manual screeningOrdered By: Edouard Grayson on 09-28-2022 Thin prep Papanicolaou smear with manual screening 7 5-15 [facility] Basophil percentageOrdered B y: Edouard Grayson on 06-29-2022 Chloride [Moles/Vol] 111 mmol/L 98-107 [facility] Glucose [Mass/Vol] 93 mg/dL 74-106 [facility] Potassium [Moles/Vol] 3.5 mmol/L 3.5-5.1 [facility] Sodium [Moles/Vol] 139 mmol/L 136-145 [facility] WBC (Bld) [#/Vol] 7.2 10*3/uL 4.4-11.0 [facility] Blood erythrocytes count (nu mber/volume)Ordered By: Edouard Grayson on 06-29-2022 RBC (Bld) [#/Vol] 3.60 10*6/uL 4.2-5.4 [facility] Blood hemoglobin measurement (mass/volume)Ordered By: Edouard Grayson on 06-29-2022 Hemoglobin (Bld) [Mass/Vol] 10.7 g/dL 12.0-15.0 [facility] Blood platelet mean volumeOr dered By: Edouard Grayson on 06-29-2022 Platelet mean volume (Bld) [Entitic vol] 9.6 fL 6.2-12.0 [facility] Determination of erythrocyte mean corpuscular volume (MCV)Ordered By: Edouard Grayson on 06-29-2022 MCV (RBC) [Entitic vol] 91.4 fL 81-99 [facility] Hematocrit Auto (Bld) [Volum e fraction]Ordered By: Edouard Grayson on 06-29-2022 Hematocrit (Bld) [Volume fraction] 32.9 % 37-47 [facility] - Chemistry and C hemistry - challengeOrdered By: Edouard Grayson on 06-29-2022 CO2 [Moles/Vol] 26.0 mmol/L 21.0-32.0 [facility] Urea nitrogen/Creatinine [Mass ratio] 25.1 mg/mg 10-20 [facility] - Hematology and Cell countsOrdered By: Edouard Grayson on 06-29-2022 Erythrocyte distribution width (RBC) [Entitic vol] 46.0 fL 35.1-43.9 [facility] Erythrocyte distribution width (RBC) [Ratio] 13.7 % 11.6-14.6 [facility] MCH (RBC) [Entitic mass] 29.7 pg 27.0-32.0 [facility] MCHC Auto (RBC) [Mass/Vol]Or dered By: Edouard Grayson on 06-29-2022 MCHC (RBC) [Mass/Vol] 32.5 g/dL 32-36 [facility] No Panel InformationOrdered By: Edouard Grayson on 06-29-2022 Estimated GFR (MDRD) Amer 84 mL/min >60 [facility] Comment on above: GFR Calc Estimated GFR (MDRD) Non-Af Amer 70 mL/min >60 [facility] Comment on above: Non- GFR Calc Platelets bldOrdered By: Earl Grayson on 06-29-2022 Platelets (Bld) [#/Vol] 353 10*3/uL 150-450 [facility] Serum or plasma calcium jasmin urement (mass/volume)Ordered By: Edouard Grayson on 06-29-2022 Calcium [Mass/Vol] 9.2 mg/dL 8.5-10.1 [facility] Serum or plasma creatinine m easurement (mass/volume)Ordered By: Edouard Grayson on 06-29-2022 Creatinine [Mass/Vol] 0.84 mg/dL 0.55-1.02 [facility] Comment on above: The validity of the calculated GFR & GFRAA in patients over 70 years has not been determined. Clinical correlation is essential. Serum or plasma urea nitroge n measurement (mass/volume)Ordered By: Edouard Grayson on 06-29-2022 Urea nitrogen [Mass/Vol] 21 mg/dL 7-18 [facility] Thin prep Papanicolaou smear with manual screeningOrdered By: Edouard Grayson on 06-29-2022 Thin prep Papanicolaou smear with manual screening 2 5-15 [facility] Culture, urineOrdered By: Dr Kory Grayson on 06-18-2022 Bacteria identified Cx Nom (U) Escherichia coli [facility] Bilirubin Test strip Ql (U)O rdered By: Dr. Grayson on 06-16-2022 Bilirubin Ql (U) Negative Negative [facility] Ketones Test strip Ql (U)Ord ered By: Dr. Grayson on 06-16-2022 Ketones Ql (U) Negative Negative [facility] Nitrite Test strip Ql (U)Ord ered By: Dr. Grayson on 06-16-2022 Nitrite Ql (U) Positive Negative [facility] Protein Test strip Ql (U)Ord ered By: Dr. Grayson on 06-16-2022 Protein Ql (U) 15 mg/dl Negative [facility] Urine blood detectionOrdered By: Dr. Grayson on 06-16-2022 RBC Ql (U) 150 /ul Negative [facility] Urine clarityOrdered By: Dr. Grayson on 06-16-2022 Clarity (U) Sl. Cloudy Clear [facility] Urine color determinationOrd ered By: Dr. Grayson on 06-16-2022 Color (U) Yellow Yellow [facility] Urine glucose detectionOrder ed By: Dr. Grayson on 06-16-2022 Glucose Ql (U) Normal mg/dl Normal [facility] Urine leukocyte esterase det ection by dipstickOrdered By: Dr. Grayson on 06-16-2022 Leukocyte esterase Test strip Ql (U) 500 /ul Negative [facility] Urine pHOrdered By: Dr. Jose Miguel de la garza on 06-16-2022 pH (U) 6.5 [pH] 5.0 - 8.0 [facility] Urine specific gravity measu rementOrdered By: Dr. Grayson on 06-16-2022 Specific gravity (U) [Rel density] 1.015 1.002-1.030 [facility] Urobilinogen Auto test strip Ql (U)Ordered By: Dr. Grayson on 06-16-2022 Urobilinogen Ql (U) Normal mg/dl Normal [facility] Basophil percentageOrdered B y: Edouard Grayson on 04-03-2022 Chloride [Moles/Vol] 109 mmol/L 98-107 [facility] Cholesterol [Mass/Vol] 171 mg/dL <200 [facility] Comment on above: <200 mg/dL Desirable 200-240 mg/dL Borderline >240 mg/dL High Risk Glucose [Mass/Vol] 104 mg/dL 74-106 [facility] Comment on above: Fasting Glucose resu lt from 100 to 125 mg/dL suggests IMPAIRED HOMEOSTASIS per A.D.A. criteria. Potassium [Moles/Vol] 3.8 mmol/L 3.5-5.1 [facility] Sodium [Moles/Vol] 142 mmol/L 136-145 [facility] Triglyceride [Mass/Vol] 115 mg/dL <199 [facility] Comment on above: The drugs N-Acetylcy steine and Metamizole may falsely depress this assay.Serum Triglycerides Reference Interval Normal <150 mg/dL Borderline high 150 - 199 mg/dL High 200 - 499 mg/dL Very High > or = 500 mg/dL WBC (Bld) [#/Vol] 12.0 10*3/uL 4.4-11.0 [facility] Blood erythrocytes count (nu mber/volume)Ordered By: Edouard Grayson on 04-03-2022 RBC (Bld) [#/Vol] 4.01 10*6/uL 4.2-5.4 [facility] Blood hemoglobin measurement (mass/volume)Ordered By: Edouard Grayson on 04-03-2022 Hemoglobin (Bld) [Mass/Vol] 12.2 g/dL 12.0-15.0 [facility] Blood platelet mean volumeOr dered By: Edouard Grayson on 04-03-2022 Platelet mean volume (Bld) [Entitic vol] 10.0 fL 6.2-12.0 [facility] Determination of erythrocyte mean corpuscular volume (MCV)Ordered By: Edouard Grayson on 04-03-2022 MCV (RBC) [Entitic vol] 95.8 fL 81-99 [facility] Hematocrit Auto (Bld) [Volum e fraction]Ordered By: Edouard Grayson on 04-03-2022 Hematocrit (Bld) [Volume fraction] 38.4 % 37-47 [facility] Laboratory - Chemistry and C hemistry - challengeOrdered By: Edouard Grayson on 04-03-2022 CO2 [Moles/Vol] 23.0 mmol/L 21.0-32.0 [facility] Urea nitrogen/Creatinine [Mass ratio] 31.8 mg/mg 10-20 [facility] Laboratory - Hematology and Cell countsOrdered By: Edouard Grayson on 04-03-2022 Erythrocyte distribution width (RBC) [Entitic vol] 46.3 fL 35.1-43.9 [facility] Erythrocyte distribution width (RBC) [Ratio] 13.1 % 11.6-14.6 [facility] MCH (RBC) [Entitic mass] 30.4 pg 27.0-32.0 [facility] MCHC Auto (RBC) [Mass/Vol]Or dered By: Edouard Grayson on 04-03-2022 MCHC (RBC) [Mass/Vol] 31.8 g/dL 32-36 [facility] No Panel InformationOrdered By: Edouard Grayson on 04-03-2022 Estimated GFR (MDRD) Amer 83 mL/min >60 [facility] Comment on above: GFR Calc Estimated GFR (MDRD) Non-Af Amer 69 mL/min >60 [facility] Comment on above: Non- GFR Calc Platelets bldOrdered By: Earl Grayson on 04-03-2022 Platelets (Bld) [#/Vol] 365 10*3/uL 150-450 [facility] Serum or plasma calcium jasmin urement (mass/volume)Ordered By: Edouard Grayson on 04-03-2022 Calcium [Mass/Vol] 9.4 mg/dL 8.5-10.1 [facility] Serum or plasma cholesterol in HDL measurement (mass/volume)Ordered By: Edouard Grayson on 04-03-2022 Cholesterol in HDL [Mass/Vol] 63 mg/dL >40 [facility] Comment on above: The drugs N-Acetylcy steine and Metamizole may falsely depress this assay. Reference Range HDL <40 mg/dL Low HDL Cholesterol HDL >or= 60 mg/dL High HDL Cholesterol Serum or plasma cholesterol in VLDL measurement (mass/volume)Ordered By: Edouard Grayson on 04-03-2022 Cholesterol in VLDL [Mass/Vol] 23 mg/dL 5-40 [facility] Serum or plasma creatinine m easurement (mass/volume)Ordered By: Edouard Grayson on 04-03-2022 Creatinine [Mass/Vol] 0.85 mg/dL 0.55-1.02 [facility] Comment on above: The validity of the calculated GFR & GFRAA in patients over 70 years has not been determined. Clinical correlation is essential. Serum or plasma low density lipoprotein (LDL) cholesterol measurement (mass/volume)Ordered By: Edouard Grayson on 04-03-2022 Cholesterol in LDL [Mass/Vol] 85 mg/dL 0-130 [facility] Serum or plasma urea nitroge n measurement (mass/volume)Ordered By: Edouard Grayson on 04-03-2022 Urea nitrogen [Mass/Vol] 27 mg/dL 7-18 [facility] Thin prep Papanicolaou smear with manual screeningOrdered By: Edouard Grayson on 04-03-2022 Thin prep Papanicolaou smear with manual screening 10 5-15 [facility] Absolute lymphocyte countOrd ered By: Dr. Cortes on 03-14-2022 Lymphocytes Auto (Unsp spec) [#/Vol] 2.91 10*3/uL 0.83-4.51 [facility] Basophil percentageOrdered B y: Dr. Cortes on 03-14-2022 Basophils/100 WBC (Bld) 0.6 % 0-1 [facility] Chloride [Moles/Vol] 110 mmol/L 98-107 [facility] Eosinophils/100 WBC (Bld) 5.0 % 0-5 [facility] Glucose [Mass/Vol] 110 mg/dL 74-106 [facility] Comment on above: Fasting Glucose resu lt from 100 to 125 mg/dL suggests IMPAIRED HOMEOSTASIS per A.D.A. criteria. Neutrophils (Bld) [#/Vol] 3.6 10*3/uL 2.0-7.7 [facility] Neutrophils/100 WBC (Bld) 46.0 % 47-70 [facility] Potassium [Moles/Vol] 3.8 mmol/L 3.5-5.1 [facility] Sodium [Moles/Vol] 141 mmol/L 136-145 [facility] WBC (Bld) [#/Vol] 7.8 10*3/uL 4.4-11.0 [facility] Blood erythrocytes count (nu mber/volume)Ordered By: Dr. Cortes on 03-14-2022 RBC (Bld) [#/Vol] 3.23 10*6/uL 4.2-5.4 [facility] Blood hemoglobin measurement (mass/volume)Ordered By: Dr. Cortes on 03-14-2022 Hemoglobin (Bld) [Mass/Vol] 10.1 g/dL 12.0-15.0 [facility] Blood lymphocytes/100 leukoc ytesOrdered By: Dr. Cortes on 03-14-2022 Lymphocytes/100 WBC (Bld) 37.5 % 19-41 [facility] Blood monocytes/100 leukocyt esOrdered By: Dr. Cortes on 03-14-2022 Monocytes/100 WBC (Bld) 10.5 % 0-10 [facility] Blood platelet mean volumeOr dered By: Dr. Cortes on 03-14-2022 Platelet mean volume (Bld) [Entitic vol] 9.7 fL 6.2-12.0 [facility] Determination of erythrocyte mean corpuscular volume (MCV)Ordered By: Dr. Cortes on 03-14-2022 MCV (RBC) [Entitic vol] 96.3 fL 81-99 [facility] Hematocrit Auto (Bld) [Volum e fraction]Ordered By: Dr. Cortes on 03-14-2022 Hematocrit (Bld) [Volume fraction] 31.1 % 37-47 [facility] Laboratory - Chemistry and C hemistry - challengeOrdered By: Dr. Cortes on 03-14-2022 CO2 [Moles/Vol] 26.0 mmol/L 21.0-32.0 [facility] Urea nitrogen/Creatinine [Mass ratio] 39.0 mg/mg 10-20 [facility] Laboratory - Hematology and Cell countsOrdered By: Dr. Cortes on 03-14-2022 Erythrocyte distribution width (RBC) [Entitic vol] 47.6 fL 35.1-43.9 [facility] Erythrocyte distribution width (RBC) [Ratio] 13.2 % 11.6-14.6 [facility] Immature granulocytes/100 WBC (Bld) 0.400 % 0.0-0.9 [facility] Comment on above: IG% - Immature Granu locytes (promyelocytes, myelocytes and metamyelocytes) > 1% indicates that a LEFT SHIFT is Present. MCH (RBC) [Entitic mass] 31.3 pg 27.0-32.0 [facility] Nucleated RBC/100 WBC (Bld) [Ratio] 0 % 0-5 [facility] MCHC Auto (RBC) [Mass/Vol]Or dered By: Dr. Cortes on 03-14-2022 MCHC (RBC) [Mass/Vol] 32.5 g/dL 32-36 [facility] No Panel InformationOrdered By: Dr. Cortes on 03-14-2022 Estimated Creatinine Clearance Calc 41.53 ml/min [facility] Estimated GFR (MDRD) Amer 90 mL/min >60 [facility] Comment on above: GFR Calc Estimated GFR (MDRD) Non-Af Amer 74 mL/min >60 [facility] Comment on above: Non- GFR Calc Platelets bldOrdered By: Dr. Cortes on 03-14-2022 Platelets (Bld) [#/Vol] 238 10*3/uL 150-450 [facility] Serum or plasma calcium jasmin urement (mass/volume)Ordered By: Dr. Cortes on 03-14-2022 Calcium [Mass/Vol] 8.8 mg/dL 8.5-10.1 [facility] Serum or plasma creatinine m easurement (mass/volume)Ordered By: Dr. Cortes on 03-14-2022 Creatinine [Mass/Vol] 0.80 mg/dL 0.55-1.02 [facility] Comment on above: The validity of the calculated GFR & GFRAA in patients over 70 years has not been determined. Clinical correlation is essential. Serum or plasma urea nitroge n measurement (mass/volume)Ordered By: Dr. Cortes on 03-14-2022 Urea nitrogen [Mass/Vol] 31 mg/dL 7-18 [facility] Thin prep Papanicolaou smear with manual screeningOrdered By: Dr. Cortes on 03-14-2022 Thin prep Papanicolaou smear with manual screening 5 5-15 [facility] COVID-19 virus antigen assay Ordered By: Dr. Cortes on 02-24-2022 SARS-CoV-2 (COVID-19) Ag IA.rapid Ql (Resp) [facility] Basophil percentageon 2021 Chloride [Moles/Vol] 113 mmol/L 98-107 [facility] Work Phone: Glucose [Mass/Vol] 114 mg/dL 74-106 [facility] Work Phone: Comment on above: Fasting Glucose resu lt from 100 to 125 mg/dL suggests IMPAIRED HOMEOSTASIS per A.D.A. criteria. Potassium [Moles/Vol] 4.1 mmol/L 3.5-5.1 [facility] Work Phone: Sodium [Moles/Vol] 142 mmol/L 136-145 [facility] Work Phone: WBC (Bld) [#/Vol] 9.6 10*3/uL 4.4-11.0 [facility] Work Phone: Blood erythrocytes count (nu mber/volume)on 02-13-2022 RBC (Bld) [#/Vol] 3.24 10*6/uL 4.2-5.4 [facility] Work Phone: Blood hemoglobin measurement (mass/volume)on 02-13-2022 Hemoglobin (Bld) [Mass/Vol] 10.1 g/dL 12.0-15.0 [facility] Work Phone: Blood platelet mean volumeon 02-13-2022 Platelet mean volume (Bld) [Entitic vol] 8.9 fL 6.2-12.0 [facility] Work Phone: Determination of erythrocyte mean corpuscular volume (MCV)on 02-13-2022 MCV (RBC) [Entitic vol] 96.9 fL 81-99 [facility] Work Phone: Hematocrit Auto (Bld) [Volum e fraction]on 02-13-2022 Hematocrit (Bld) [Volume fraction] 31.4 % 37-47 [facility] Work Phone: Laboratory - Chemistry and C hemistry - challengeon 02-13-2022 CO2 [Moles/Vol] 26.0 mmol/L 21.0-32.0 [facility] Work Phone: Urea nitrogen/Creatinine [Mass ratio] 44.2 mg/mg 10-20 [facility] Work Phone: Laboratory - Hematology and Cell countson 02-13-2022 Erythrocyte distribution width (RBC) [Entitic vol] 49.6 fL 35.1-43.9 [facility] Work Phone: Erythrocyte distribution width (RBC) [Ratio] 13.8 % 11.6-14.6 [facility] Work Phone: MCH (RBC) [Entitic mass] 31.2 pg 27.0-32.0 [facility] Work Phone: MCHC Auto (RBC) [Mass/Vol]on 02-13-2022 MCHC (RBC) [Mass/Vol] 32.2 g/dL 32-36 [facility] Work Phone: No Panel Informationon 02-13 Estimated Creatinine Clearance Calc 32.62 ml/min [facility] Work Phone: Estimated GFR (MDRD) Amer 104 mL/min >60 [facility] Work Phone: Comment on above: GFR Calc Estimated GFR (MDRD) Non-Af Amer 86 mL/min >60 [facility] Work Phone: Comment on above: Non- GFR Calc Platelets bldon 02-13-2022 Platelets (Bld) [#/Vol] 294 10*3/uL 150-450 [facility] Work Phone: Serum or plasma calcium jasmin urement (mass/volume)on 02-13-2022 Calcium [Mass/Vol] 8.6 mg/dL 8.5-10.1 [facility] Work Phone: Serum or plasma creatinine m easurement (mass/volume)on 02-13-2022 Creatinine [Mass/Vol] 0.70 mg/dL 0.55-1.02 Tenorio ster [facility] Work Phone: Comment on above: The validity of the calculated GFR & GFRAA in patients over 70 years has not been determined. Clinical correlation is essential. Serum or plasma urea nitroge n measurement (mass/volume)on 02-13-2022 Urea nitrogen [Mass/Vol] 31 mg/dL 7-18 [facility] Work Phone: Thin prep Papanicolaou smear with manual screeningon 02-13-2022 Thin prep Papanicolaou smear with manual screening 3 5-15 [facility] Work Phone: Laboratory - Chemistry and C hemistry - challengeon 02-12-2022 Sodium (U) [Moles/Vol] 42 mmol/L Not Establ. [facility] Work Phone: Urine creatinine measurement (mass/volume)on 02-12-2022 Creatinine (U) [Mass/Vol] 56.20 mg/dL NO RANGE EST. [facility] Work Phone: Basophil percentageon 2021 Basophil percentage 3.6 mg/dL 2.5-4.9 [facility] Work Phone: Laboratory - Chemistry and C hemistry - challengeon 02-09-2022 Magnesium [Mass/Vol] 2.5 mg/dL 1.6-2.6 [facility] Work Phone: INR in Blood by Coagulation assayon 02-08-2022 INR Coag (Bld) [Relative time] 1.1 {INR} [facility] Work Phone: Laboratory - Coagulationon 04-10-2021 aPTT Coag (Bld) [Time] 23.7 s 24.1-36.2 Wo christopher [facility] Work Phone: PT Coag (PPP) [Time] 14.0 s 11.7-14.9 [facility] Work Phone: Basophil percentageon 2021 Bilirubin [Mass/Vol] 0.50 mg/dL 0.20-1.00 [facility] Work Phone: Comment on above: For patients on eltr ombopag therapy, use of Dimension [place] TBIL is not recommended. Protein [Mass/Vol] 6.4 g/dL 6.4-8.2 [facility] Work Phone: Laboratory - Chemistry and C hemistry - challengeon 01-29-2022 ALP [Catalytic activity/Vol] 72 U/L 45-117 [facility] Work Phone: ALT [Catalytic activity/Vol] 48 U/L 13-56 [facility] Work Phone: Globulin (S) [Mass/Vol] 4.0 g/dL 2.2-4.2 [facility] Work Phone: Serum or plasma albumin jasmin urement (mass/volume)on 01-29-2022 Albumin [Mass/Vol] 2.4 g/dL 3.2-5.0 [facility] Work Phone: Serum or plasma albumin/glob ulin mass ratioon 01-29-2022 Albumin/Globulin [Mass ratio] 0.6 {ratio} 0.9-2.4 [facility] Work Phone: Thin prep Papanicolaou smear with manual screeningon 01-29-2022 Thin prep Papanicolaou smear with manual screening 36 U/L 15-37 [facility] Work Phone: BLOOD CULTUREon 01-28-2022 Bacteria identified Cx Nom (Unsp spec) NO GROWTH DAY 5 OF 5 Normal [facility] Comment on above: Order Comment: Use r [...] gloves. Performed By: #### L [id number] #### [facility] (DEFAULT) [address] [place] [id number] Bacteria identified Cx Nom ( Bld)on 01-28-2022 Bacteria identified Cx Nom (Unsp spec) NO GROWTH DAY 5 OF 5 [facility] Bacteria identified Cx Nom ( Bld)on 01-27-2022 Bacteria identified Cx Nom (Unsp spec) NO GROWTH DAY 5 OF 5 [facility] Bacteria identified Cx Nom (Unsp spec) NO GROWTH DAY 5 OF 5 [facility] CBC,PLATELETSon 01-27-2022 Hematocrit (Bld) [Volume fraction] 30.4 % Low 34.9-44.3 [facility] Comment on above: Performed By: #### [facility] #### [facility] (DEFAULT) [address] [place] [phone] Hemoglobin (Bld) [Mass/Vol] 9.9 g/dL Low 11.4-15.2 [facility] Comment on above: Performed By: #### H EMOGC #### [facility] (DEFAULT) [address] [place] [address] [id number] MCV (RBC) [Entitic vol] 93.3 fL Normal 79.6-97.7 [facility] Comment on above: Performed By: #### H EMOGC #### [facility] (DEFAULT) [address] [place] [address] 10994 Mean Cell Hgb 30.4 pg Normal 25.9-33.9 [facility] Comment on above: Performed By: #### H EMOGC #### [facility] (DEFAULT) [address] [place] [address] 54978 Mean Cell Hgb Conc 32.6 g/dL Normal 31.4-35.9 [facility] Comment on above: Performed By: #### H EMO #### [facility] (DEFAULT) [address] [place] [address] [phone] Platelet mean volume (Bld) [Entitic vol] 10.8 fL Normal 8.5-12.2 [facility] Comment on above: Performed By: #### H EMO #### [facility] (DEFAULT) [address] [place] [address] [phone] Platelets (Bld) [#/Vol] 279 10*3/uL Normal 150-393 [facility] Comment on above: Performed By: #### H EMO #### [facility] (DEFAULT) [address] [place] [address] 97532 RBC (Bld) [#/Vol] 3.26 10*6/uL Low 3.91-5.04 [facility] Comment on above: Performed By: #### H EMO #### [facility] (DEFAULT) [address] [place] [address] 10874 RBC Distribution 13.3 % Normal 10.8-14.9 [facility] Comment on above: Performed By: #### H EMOGC #### [facility] (DEFAULT) [address] [place] [address] [id number] WBC (Bld) [#/Vol] 10.79 10*3/uL Normal 3.99-11.19 [facility] Comment on above: Performed By: #### H EMO #### [facility] (DEFAULT) [address] [place] [address] [id number] Erythrocyte distribution width (RBC) [Ratio] 13.3 % 10.8 - 14.9 % [facility] Hematocrit (Bld) [Volume fraction] 30.4 % Low 34.9 - 44.3 % [facility] Hemoglobin (Bld) [Mass/Vol] 9.9 g/dL Low 11.4 - 15.2 g/dL [facility] Interpretation and review of laboratory results Abnormal [facility] MCH (RBC) [Entitic mass] 30.4 pg 25.9 - 33.9 pg [facility] MCHC (RBC) [Mass/Vol] 32.6 g/dL 31.4 - 35.9 g/dL [facility] MCV (RBC) [Entitic vol] 93.3 fL 79.6 - 97.7 fL [facility] Platelet mean volume (Bld) [Entitic vol] 10.8 fL 8.5 - 12.2 fL [facility] Platelets (Bld) [#/Vol] 279 10*3/uL 150 - 393 K/uL [facility] RBC (Bld) [#/Vol] 3.26 10*6/uL Low [facility] WBC (Bld) [#/Vol] 10.79 10*3/uL 3.99 - 11 .19 K/uL [facility] CHEM 7 (LYTES,BUN,CREA,GLUC) on 01-27-2022 Anion gap [Moles/Vol] 13 mmol/L Normal 7-17 [facility] Comment on above: Performed By: #### M JOSE RAMON, CHM7, IPB, LIPDR, HFP #### [facility] (DEFAULT) [address] [place] [address] Chloride [Moles/Vol] 104 mmol/L Normal 98-108 [facility] Comment on above: Performed By: #### M JOSE RAMON, CHM7, IPB, LIPDR, HFP #### [facility] (DEFAULT) [address] [place] [address] CO2 [Moles/Vol] 26 mmol/L Normal 21-31 [facility] Comment on above: Performed By: #### M JOSE RAMON, CHM7, IPB, LIPDR, HFP #### [facility] (DEFAULT) [address] [place] [address] Creatinine [Mass/Vol] 0.85 mg/dL Normal 0.50-1.20 [facility] Comment on above: Performed By: #### M GO, CHM7, IPB, LIPDR, HFP #### [facility] (DEFAULT) [address] [place] [address] [id number] GFR/1.73 sq M.predicted among non-blacks MDRD (S/P/Bld) [Vol rate/Area] 70 mL/min/{1.73_m2} Normal >=60 [facility] Comment on above: Result Comment: Repo rted eGFR is based on the CKD-EPI 2020 equation using creatinine, age, and sex. Performed By: #### M GO, CHM7, IPB, LIPDR, HFP #### [facility] (DEFAULT) [address] [place] [address] 10802 Glucose [Mass/Vol] 101 mg/dL High 70-99 [facility] Comment on above: Performed By: #### M GO, CHM7, IPB, LIPDR, HFP #### [facility] (DEFAULT) [address] [place] [address] 96634 Osmolality [Osmolality] 297 mosm/kg Normal 278-305 [facility] Comment on above: Performed By: #### M GO, CHM7, IPB, LIPDR, HFP #### [facility] (DEFAULT) [address] [place] [address] [phone] Potassium [Moles/Vol] 4.5 mmol/L Normal 3.5-5.0 [facility] Comment on above: Performed By: #### M GO, CHM7, IPB, LIPDR, HFP #### [facility] (DEFAULT) [address] [place] [address] 51110 Sodium [Moles/Vol] 138 mmol/L Normal 135-145 [facility] Comment on above: Performed By: #### M GO, CHM7, IPB, LIPDR, HFP #### [facility] (DEFAULT) [address] [place] [address] [phone] Urea nitrogen [Mass/Vol] 33 mg/dL High 7-25 [facility] Comment on above: Performed By: #### M FARHAN ALBRIGHT, IPB, LIP, HFP #### [facility] (DEFAULT) [address] [place] [address] Urea nitrogen/Creatinine [Mass ratio] 39 mg/mg Normal [facility] Comment on above: Performed By: #### M FARHAN ALBRIGHT, IPCheko, LIP, HFP #### [facility] (DEFAULT) [address] [place] [address] Anion gap [Moles/Vol] 13 mmol/L 7 - 17 mmol/L [facility] Chloride [Moles/Vol] 104 mmol/L 98 - 10 8 mmol/L [facility] CO2 [Moles/Vol] 26 mmol/L 21 - 31 mmol/L [facility] Creatinine [Mass/Vol] 0.85 mg/dL 0.50 - 1.20 mg/dL [facility] GFR/1.73 sq M.predicted CKD-EPI (S/P/Bld) [Vol rate/Area] 70 - PINF [facility] Glucose [Mass/Vol] 101 mg/dL High 70 - 99 mg/dL [facility] Interpretation and review of laboratory results Abnormal [facility] Osmolality Calc [Osmolality] 297 [facility] Potassium [Moles/Vol] 4.5 mmol/L 3.5 - 5.0 mmol/L [facility] Sodium [Moles/Vol] 138 mmol/L 135 - 145 mmol/L [facility] Urea nitrogen [Mass/Vol] 33 mg/dL High 7 - 25 mg/dL [facility] Urea nitrogen/Creatinine [Mass ratio] 39 mg/mg [facility] CONTINUOUS CARDIAC MONITORIN G STRIPon 01-27-2022 [facility] CBC,PLATELETSon 01-26-2022 Hematocrit (Bld) [Volume fraction] 30.3 % Low 34.9-44.3 [facility] Comment on above: Performed By: #### M FARHAN ALBRIGHT, YARIB, LIPDR, HFP #### [facility] (DEFAULT) [address] [place] [address] [id number] Hemoglobin (Bld) [Mass/Vol] 10.1 g/dL Low 11.4-15.2 [facility] Comment on above: Performed By: #### M GO, CHM7, IPB, LIPDR, HFP #### [facility] (DEFAULT) [address] [place] [address] [id number] MCV (RBC) [Entitic vol] 91.5 fL Normal 79.6-97.7 [facility] Comment on above: Performed By: #### M GO, CHM7, IPB, LIPDR, HFP #### [facility] (DEFAULT) [address] [place] [address] [phone] Mean Cell Hgb 30.5 pg Normal 25.9-33.9 [facility] [facility] [place] Comment on above: Performed By: #### M GO, CHM7, IPB, LIPDR, HFP #### [facility] (DEFAULT) [address] [place] [address] 41083 Mean Cell Hgb Conc 33.3 g/dL Normal 31.4-35.9 [facility] Comment on above: Performed By: #### M GO, CHM7, IPB, LIPDR, HFP #### [facility] (DEFAULT) [address] [place] [address] 23595 Platelet mean volume (Bld) [Entitic vol] 10.9 fL Normal 8.5-12.2 [facility] [place] Comment on above: Performed By: #### M GO, CHM7, IPB, LIPDR, HFP #### [facility] (DEFAULT) [address] [place] [address] 43973 Platelets (Bld) [#/Vol] 227 10*3/uL Normal 150-393 [facility] [place] Comment on above: Performed By: #### M GO, CHM7, IPB, LIPDR, HFP #### [facility] (DEFAULT) [address] [place] [address] 19764 RBC (Bld) [#/Vol] 3.31 10*6/uL Low 3.91-5.04 [facility] [place] Comment on above: Performed By: #### M GO, CHM7, IPB, LIPDR, HFP #### [facility] (DEFAULT) [address] [place] [address] [phone] RBC Distribution 13.2 % Normal 10.8-14.9 [facility] Comment on above: Performed By: #### M GO, CHM7, IPB, LIPDR, HFP #### [facility] (DEFAULT) [address] [place] [address] 55529 WBC (Bld) [#/Vol] 11.01 10*3/uL Normal 3.99-11.19 [facility] [place] Comment on above: Performed By: #### M GO, CHM7, IPB, LIPDR, HFP #### [facility] (DEFAULT) [address] [place] [address] 65204 Erythrocyte distribution width (RBC) [Ratio] 13.2 % 10.8 - 14.9 % [facility] Hematocrit (Bld) [Volume fraction] 30.3 % Low 34.9 - 44.3 % [facility] Hemoglobin (Bld) [Mass/Vol] 10.1 g/dL Low 11.4 - 15.2 g/dL [facility] Interpretation and review of laboratory results Abnormal [facility] MCH (RBC) [Entitic mass] 30.5 pg 25.9 - 33.9 pg [facility] MCHC (RBC) [Mass/Vol] 33.3 g/dL 31.4 - 35.9 g/dL [facility] MCV (RBC) [Entitic vol] 91.5 fL 79.6 - 97.7 fL [facility] Platelet mean volume (Bld) [Entitic vol] 10.9 fL 8.5 - 12.2 fL [facility] Platelets (Bld) [#/Vol] 227 10*3/uL 150 - 393 K/uL [facility] RBC (Bld) [#/Vol] 3.31 10*6/uL Low [facility] WBC (Bld) [#/Vol] 11.01 10*3/uL 3.99 - 11 .19 K/uL [facility] CHEM 7 (LYTES,BUN,CREA,GLUC) on 01-26-2022 Anion gap [Moles/Vol] 13 mmol/L Normal 7-17 [facility] Comment on above: Performed By: #### M GO, CHM7, IPB, LIPDR, HFP #### [facility] (DEFAULT) [address] [place] [address] 62652 Chloride [Moles/Vol] 104 mmol/L Normal 98-108 [facility] [place] Comment on above: Performed By: #### M GO, CHM7, IPB, LIPDR, HFP #### [facility] (DEFAULT) [address] [place] [address] 52097 CO2 [Moles/Vol] 22 mmol/L Normal 21-31 [facility] Comment on above: Performed By: #### M GO, CHM7, IPB, LIPDR, HFP #### [facility] (DEFAULT) [address] [place] [address] 96322 Creatinine [Mass/Vol] 0.78 mg/dL Normal 0.50-1.20 [facility] Comment on above: Performed By: #### M GO, CHM7, IPB, LIPDR, HFP #### [facility] (DEFAULT) [address] [place] [address] 94827 GFR/1.73 sq M.predicted among non-blacks MDRD (S/P/Bld) [Vol rate/Area] 77 mL/min/{1.73_m2} Normal >=60 [facility] [place] Comment on above: Result Comment: Repo rted eGFR is based on the CKD-EPI 2020 equation using creatinine, age, and sex. Performed By: #### M GO, CHM7, IPB, LIPDR, HFP #### [facility] (DEFAULT) [address] [place] [address] 90834 Glucose [Mass/Vol] 94 mg/dL Normal 70-99 [facility] Comment on above: Performed By: #### M GO, CHM7, IPB, LIPDR, HFP #### [facility] (DEFAULT) [address] [place] [address] 35227 Osmolality [Osmolality] 288 mosm/kg Normal 278-305 [facility] [place] Comment on above: Performed By: #### M GO, CHM7, IPB, LIPDR, HFP #### [facility] (DEFAULT) [address] [place] [address] 70125 Potassium [Moles/Vol] 4.3 mmol/L Normal 3.5-5.0 [facility] Comment on above: Performed By: #### M GO, CHM7, IPB, LIPDR, HFP #### [facility] (DEFAULT) [address] [place] [address] 20001 Sodium [Moles/Vol] 135 mmol/L Normal 135-145 [facility] Comment on above: Performed By: #### M GO, CHM7, IPB, LIPDR, HFP #### [facility] (DEFAULT) [address] [place] [address] 27313 Urea nitrogen [Mass/Vol] 24 mg/dL Normal 7-25 [facility] [place] Comment on above: Performed By: #### M GO, CHM7, IPB, LIPDR, HFP #### [facility] (DEFAULT) [address] [place] [address] 44030 Urea nitrogen/Creatinine [Mass ratio] 31 mg/mg Normal [facility] [place] Comment on above: Performed By: #### M GO, CHM7, IPB, LIPDR, HFP #### [facility] (DEFAULT) [address] [place] [address] 28883 Anion gap [Moles/Vol] 13 mmol/L 7 - 17 mmol/L [facility] Chloride [Moles/Vol] 104 mmol/L 98 - 10 8 mmol/L [facility] CO2 [Moles/Vol] 22 mmol/L 21 - 31 mmol/L [facility] Creatinine [Mass/Vol] 0.78 mg/dL 0.50 - 1.20 mg/dL [facility] GFR/1.73 sq M.predicted CKD-EPI (S/P/Bld) [Vol rate/Area] 77 - PINF [facility] Glucose [Mass/Vol] 94 mg/dL 70 - 99 mg/dL [facility] Osmolality Calc [Osmolality] 288 [facility] Potassium [Moles/Vol] 4.3 mmol/L 3.5 - 5.0 mmol/L [facility] Sodium [Moles/Vol] 135 mmol/L 135 - 145 mmol/L [facility] Urea nitrogen [Mass/Vol] 24 mg/dL 7 - 25 mg/dL [facility] Urea nitrogen/Creatinine [Mass ratio] 31 mg/mg [facility] IONIZED CALCIUM, WHOLE BLOOD on 01-26-2022 Calcium.ionized (Bld) [Moles/Vol] 4.52 mg/dL Low 4.60 - 5.30 mg/dL [facility] Interpretation and review of laboratory results Abnormal [facility] ICA 4.52 mg/dL Low 4.60-5.30 [facility] [place] Comment on above: Performed By: #### M FARHAN ALBRIGHT, IPB, LIP, HFP #### [facility] (DEFAULT) [address] [place] [address] 69574 MAGNESIUMon 01-26-2022 Magnesium [Mass/Vol] 2.2 mg/dL Normal 1.6-2.6 [facility] [place] Comment on above: Performed By: #### M FARHAN ALBRIGHT, IPB, LIPDR, HFP #### [facility] (DEFAULT) [address] [place] [address] Magnesium [Mass/Vol] 2.2 mg/dL 1.6 - 2 .6 mg/dL [facility] No Panel Informationon 01-26 Interpretation and review of laboratory results Normal [facility] PHOSPHATE, INORGANICon 01-26 Phosphorous 3.0 mg/dL Normal 2.2-4.6 [facility] [place] Comment on above: Performed By: #### M JOSE RAMON, CHM7, IPB, LIPDR, HFP #### [facility] (DEFAULT) [address] [place] [address] 91232 Phosphate [Mass/Vol] 3.0 mg/dL 2.2 - 4 .6 mg/dL [facility] AMYLASEon 01-25-2022 Amylase [Catalytic activity/Vol] 22 U/L 20 - 103 U/L [facility] Interpretation and review of laboratory results Normal [facility] Amylase [Catalytic activity/Vol] 22 U/L Normal 20-103 [facility] [place] Comment on above: Performed By: #### M JOSE RAMON, CHM7, IPB, LIPDR, HFP #### [facility] (DEFAULT) [address] [place] [address] 13235 CBC,PLATELETSon 01-25-2022 Hematocrit (Bld) [Volume fraction] 32.0 % Low 34.9-44.3 [facility] [place] Comment on above: Performed By: #### M JOSE RAMON, CHM7, IPB, LIPDR, HFP #### [facility] (DEFAULT) [address] [place] [address] 92880 Hemoglobin (Bld) [Mass/Vol] 10.4 g/dL Low 11.4-15.2 [facility] [place] Comment on above: Performed By: #### M JOSE RAMON, CHM7, IPB, LIPDR, HFP #### [facility] (DEFAULT) [address] [place] [address] 37055 MCV (RBC) [Entitic vol] 92.5 fL Normal 79.6-97.7 [facility] Comment on above: Performed By: #### M GO, CHM7, IPB, LIPDR, HFP #### [facility] (DEFAULT) [address] [place] [address] 03579 Mean Cell Hgb 30.1 pg Normal 25.9-33.9 [facility] [place] Comment on above: Performed By: #### M GO, CHM7, IPB, LIPDR, HFP #### [facility] (DEFAULT) [address] [place] [address] 83358 Mean Cell Hgb Conc 32.5 g/dL Normal 31.4-35.9 [facility] Comment on above: Performed By: #### M GO, CHM7, IPB, LIPDR, HFP #### [facility] (DEFAULT) [address] [place] [address] 91125 Platelet mean volume (Bld) [Entitic vol] 11.1 fL Normal 8.5-12.2 [facility] [place] Comment on above: Performed By: #### M GO, CHM7, IPB, LIPDR, HFP #### [facility] (DEFAULT) [address] [place] [address] 02436 Platelets (Bld) [#/Vol] 181 10*3/uL Normal 150-393 [facility] [place] Comment on above: Performed By: #### M GO, CHM7, IPB, LIPDR, HFP #### [facility] (DEFAULT) [address] [place] [address] 16378 RBC (Bld) [#/Vol] 3.46 10*6/uL Low 3.91-5.04 [facility] [place] Comment on above: Performed By: #### M GO, CHM7, IPB, LIPDR, HFP #### [facility] (DEFAULT) [address] [place] [address] 25163 RBC Distribution 12.9 % Normal 10.8-14.9 [facility] Comment on above: Performed By: #### M GO, CHM7, IPB, LIPDR, HFP #### [facility] (DEFAULT) [address] [place] [address] 82038 WBC (Bld) [#/Vol] 11.59 10*3/uL High 3.99-11.19 [facility] [place] Comment on above: Performed By: #### M FARHAN ALBRIGHT, CAIT, QUIN, HFP #### [facility] (DEFAULT) [address] [place] [address] Erythrocyte distribution width (RBC) [Ratio] 12.9 % 10.8 - 14.9 % [facility] Hematocrit (Bld) [Volume fraction] 32.0 % Low 34.9 - 44.3 % [facility] Hemoglobin (Bld) [Mass/Vol] 10.4 g/dL Low 11.4 - 15.2 g/dL [facility] Interpretation and review of laboratory results Abnormal [facility] MCH (RBC) [Entitic mass] 30.1 pg 25.9 - 33.9 pg [facility] MCHC (RBC) [Mass/Vol] 32.5 g/dL 31.4 - 35.9 g/dL [facility] MCV (RBC) [Entitic vol] 92.5 fL 79.6 - 97.7 fL [facility] Platelet mean volume (Bld) [Entitic vol] 11.1 fL 8.5 - 12.2 fL [facility] Platelets (Bld) [#/Vol] 181 10*3/uL 150 - 393 K/uL [facility] RBC (Bld) [#/Vol] 3.46 10*6/uL Low [facility] WBC (Bld) [#/Vol] 11.59 10*3/uL High 3.99 - 11 .19 K/uL [facility] CHEM 7 (LYTES,BUN,CREA,GLUC) on 01-25-2022 Anion gap [Moles/Vol] 12 mmol/L Normal 7-17 [facility] Comment on above: Performed By: #### M FARHAN ALBRIGHT, IPB, LIP, HFP #### [facility] (DEFAULT) [address] [place] [address] Chloride [Moles/Vol] 107 mmol/L Normal 98-108 [facility] [place] Comment on above: Performed By: #### M GO, CHM7, IPB, LIPDR, HFP #### [facility] (DEFAULT) [address] [place] [address] 74958 CO2 [Moles/Vol] 22 mmol/L Normal 21-31 [facility] Comment on above: Performed By: #### M GO, CHM7, IPB, LIPDR, HFP #### [facility] (DEFAULT) [address] [place] [address] 65650 Creatinine [Mass/Vol] 0.81 mg/dL Normal 0.50-1.20 [facility] Comment on above: Performed By: #### M GO, CHM7, IPB, LIPDR, HFP #### [facility] (DEFAULT) [address] [place] [address] 60721 GFR/1.73 sq M.predicted among non-blacks MDRD (S/P/Bld) [Vol rate/Area] 74 mL/min/{1.73_m2} Normal >=60 [facility] [place] Comment on above: Result Comment: Repo rted eGFR is based on the CKD-EPI 2020 equation using creatinine, age, and sex. Performed By: #### M GO, CHM7, IPB, LIPDR, HFP #### [facility] (DEFAULT) [address] [place] [address] 58435 Glucose [Mass/Vol] 107 mg/dL High 70-99 [facility] Comment on above: Performed By: #### M GO, CHM7, IPB, LIPDR, HFP #### [facility] (DEFAULT) [address] [place] [address] 69839 Osmolality [Osmolality] 291 mosm/kg Normal 278-305 [facility] [place] Comment on above: Performed By: #### M GO, CHM7, IPB, LIPDR, HFP #### [facility] (DEFAULT) [address] [place] [address] 14503 Potassium [Moles/Vol] 4.2 mmol/L Normal 3.5-5.0 [facility] Comment on above: Performed By: #### M GO, CHM7, IPB, LIPDR, HFP #### [facility] (DEFAULT) [address] [place] [address] 65246 Sodium [Moles/Vol] 137 mmol/L Normal 135-145 [facility] Comment on above: Performed By: #### M GO, CHM7, IPB, LIPDR, HFP #### [facility] (DEFAULT) [address] [place] [address] 60808 Urea nitrogen [Mass/Vol] 20 mg/dL Normal 7-25 [facility] [place] Comment on above: Performed By: #### M GO, CHM7, IPB, LIPDR, HFP #### [facility] (DEFAULT) [address] [place] [address] 34431 Urea nitrogen/Creatinine [Mass ratio] 25 mg/mg Normal [facility] [place] Comment on above: Performed By: #### M GO, CHM7, IPB, LIPDR, HFP #### [facility] (DEFAULT) [address] [place] [address] 38114 Anion gap [Moles/Vol] 12 mmol/L 7 - 17 mmol/L [facility] Chloride [Moles/Vol] 107 mmol/L 98 - 10 8 mmol/L [facility] CO2 [Moles/Vol] 22 mmol/L 21 - 31 mmol/L [facility] Creatinine [Mass/Vol] 0.81 mg/dL 0.50 - 1.20 mg/dL [facility] GFR/1.73 sq M.predicted CKD-EPI (S/P/Bld) [Vol rate/Area] 74 - PINF [facility] Glucose [Mass/Vol] 107 mg/dL High 70 - 99 mg/dL [facility] Interpretation and review of laboratory results Abnormal [facility] Osmolality Calc [Osmolality] 291 [facility] Potassium [Moles/Vol] 4.2 mmol/L 3.5 - 5.0 mmol/L [facility] Sodium [Moles/Vol] 137 mmol/L 135 - 145 mmol/L [facility] Urea nitrogen [Mass/Vol] 20 mg/dL 7 - 25 mg/dL [facility] Urea nitrogen/Creatinine [Mass ratio] 25 mg/mg [facility] EXTRA MICROon 01-25-2022 [facility] HEPATIC FUNCTION PANELon Albumin [Mass/Vol] 3.1 g/dL Low 3.5 - 5.0 g/dL [facility] ALP [Catalytic activity/Vol] 71 U/L 32 - 126 U/L [facility] ALT [Catalytic activity/Vol] 32 U/L 9 - 48 U/L [facility] AST [Catalytic activity/Vol] 50 U/L High 10 - 39 U/L [facility] Bilirubin [Mass/Vol] 0.5 mg/dL NINF - 1.5 mg/dL [facility] Bilirubin.direct [Mass/Vol] 0.1 mg/dL NINF - 0.3 mg/dL [facility] Protein [Mass/Vol] 5.7 g/dL Low 6.4 - 8.3 g/dL [facility] Albumin [Mass/Vol] 3.1 g/dL Low 3.5-5.0 [facility] Comment on above: Performed By: #### M JOSE RAMON, CHM7, IPB, LIPDR, HFP #### [facility] (DEFAULT) [address] [place] [address] ALP [Catalytic activity/Vol] 71 U/L Normal 32-126 [facility] [place] Comment on above: Performed By: #### M GO, CHM7, IPB, LIPDR, HFP #### [facility] (DEFAULT) [address] [place] [address] 54026 ALT [Catalytic activity/Vol] 32 U/L Normal 9-48 [facility] [place] Comment on above: Performed By: #### M GO, CHM7, IPB, LIPDR, HFP #### [facility] (DEFAULT) [address] [place] [address] 57487 AST [Catalytic activity/Vol] 50 U/L High 10-39 [facility] [place] Comment on above: Performed By: #### M GO, CHM7, IPB, LIPDR, HFP #### [facility] (DEFAULT) [address] [place] [address] 75445 Bilirubin [Mass/Vol] 0.5 mg/dL Normal <1.5 [facility] [place] Comment on above: Performed By: #### M GO, CHM7, IPB, LIPDR, HFP #### [facility] (DEFAULT) [address] [place] [address] 57642 Bilirubin.indirect [Mass/Vol] 0.1 mg/dL Normal <0.3 [facility] [place] Comment on above: Performed By: #### M GO, CHM7, IPB, LIPDR, HFP #### [facility] (DEFAULT) [address] [place] [address] 91454 Protein [Mass/Vol] 5.7 g/dL Low 6.4-8.3 [facility] Comment on above: Performed By: #### M GO, CHM7, IPB, LIPDR, HFP #### [facility] (DEFAULT) [address] [place] [address] 33755 IONIZED CALCIUM, WHOLE BLOOD on 01-25-2022 ICA 4.37 mg/dL Low 4.60-5.30 [facility] [place] Comment on above: Performed By: #### M GO, CHM7, IPB, LIPDR, HFP #### [facility] (DEFAULT) [address] [place] [address] 19973 Calcium.ionized (Bld) [Moles/Vol] 4.37 mg/dL Low 4.60 - 5.30 mg/dL [facility] Interpretation and review of laboratory results Abnormal [facility] LACTATE, BLOODon 01-25-2022 Lactate, Blood 2.0 mmol/L High 0.5-1.6 [facility] [place] Comment on above: Performed By: #### [facility] #### [facility] (DEFAULT) [address] [place] [address] 96405 LACTATE, BLOODOrdered By: Genny Grayson on 01-25-2022 Interpretation and review of laboratory results Abnormal [facility] Lactate [Moles/Vol] 2.0 mmol/L High 0.5 - 1. 6 mmol/L [facility] LIPASEon 01-25-2022 Lipase [Catalytic activity/Vol] 6 U/L Low U/L [facility] Lipase [Catalytic activity/Vol] 6 U/L Low [facility] [place] Comment on above: Performed By: #### M GO, CHM7, IPB, LIPDR, HFP #### [facility] (DEFAULT) [address] [place] [address] 51532 MAGNESIUMon 01-25-2022 Magnesium [Mass/Vol] 2.1 mg/dL Normal 1.6-2.6 [facility] [place] Comment on above: Performed By: #### M JOSE RAMON, CHM7, IPB, LIPDR, HFP #### [facility] (DEFAULT) [address] [place] [address] 25814 Magnesium [Mass/Vol] 2.1 mg/dL 1.6 - 2 .6 mg/dL [facility] No Panel Informationon 01-25 Interpretation and review of laboratory results Abnormal [facility] Interpretation and review of laboratory results Normal [facility] PHOSPHATE, INORGANICon 01-25 Phosphorous 2.2 mg/dL Normal 2.2-4.6 [facility] [place] Comment on above: Performed By: #### M GO, CHM7, IPB, LIPDR, HFP #### [facility] (DEFAULT) [address] [place] [address] 28875 Phosphate [Mass/Vol] 2.2 mg/dL 2.2 - 4 .6 mg/dL [facility] PROCALCITONINon 01-25-2022 Interpretation and review of laboratory results Normal [facility] Procalcitonin [Mass/Vol] 0.23 ng/mL NINF - 0.50 ng/mL [facility] Procalcitonin 0.23 ng/mL Normal <0.50 [facility] [place] Comment on above: Result Comment: Proc alcitonin [...] and trend procalcitonin in various clinical settings. [email or web address] Two common cutoffs associated with bacterial infections are as follows. Respiratory tract infections: >0.25 ng/mL Sepsis/septic shock: >0.5 ng/mL Procalcitonin should not be used alone as a diagnostic tool, however. All procalcitonin results should be interpreted in association with the patients clinical condition and all laboratory findings. Performed By: #### M GO, CHM7, IPB, LIPDR, HFP #### [facility] (DEFAULT) [address] [place] [address] US ABDOMEN RUQ/LIVER/GBon US ABDOMEN RUQ/LIVER/GB EXAM: [...] Cholelithiasis without evidence of acute cholecystitis. Normal [facility] US Abdomen RUQon 01-25-2022 RADIOLOGY RADIOLOGY [facility] Radiology Study observation (narrative) [facility] US Abdomen RUQOrdered By: Alycia Ty on 01-25-2022 [facility] Work Phone: US.doppler Lower extremity v ein - bilateralOrdered By: Jovan Negrete on 01-25-2022 [facility] Work Phone: US.doppler Lower extremity v ein - bilateralon 01-25-2022 Radiology Study observation (narrative) [facility] B-TYPE NATRIURETIC PEPTIDE ( BRAIN)on 01-24-2022 Interpretation and review of laboratory results Abnormal [facility] Natriuretic peptide B (Bld) [Mass/Vol] 195 pg/mL High 0 - 100 pg/mL [facility] CBC,PLATELETSon 01-24-2022 Hematocrit (Bld) [Volume fraction] 28.2 % Low 34.9-44.3 [facility] [place] Comment on above: Performed By: #### [facility] [place] #### [facility] (DEFAULT) [address] [address] Hemoglobin (Bld) [Mass/Vol] 9.4 g/dL Low 11.4-15.2 [facility] Comment on above: Performed By: #### [facility] [place] #### [facility] (DEFAULT) [address] [place] [address] 74316 MCV (RBC) [Entitic vol] 92.2 fL Normal 79.6-97.7 [facility] Comment on above: Performed By: #### H [facility] #### [facility] (DEFAULT) [address] [place] [address] 13257 Mean Cell Hgb 30.7 pg Normal 25.9-33.9 [facility] [place] Comment on above: Performed By: #### H [facility] #### [facility] (DEFAULT) [address] [address] Mean Cell Hgb Conc 33.3 g/dL Normal 31.4-35.9 [facility] Comment on above: Performed By: #### H [facility] #### [facility] (DEFAULT) [address] [place] [address] 88658 Platelet mean volume (Bld) [Entitic vol] 11.4 fL Normal 8.5-12.2 [facility] Comment on above: Performed By: #### H [facility] #### [facility] (DEFAULT) [address] [address] Platelets (Bld) [#/Vol] 170 10*3/uL Normal 150-393 [facility] Comment on above: Performed By: #### H [facility] #### [facility] (DEFAULT) [address] [address] RBC (Bld) [#/Vol] 3.06 10*6/uL Low 3.91-5.04 [facility] Comment on above: Performed By: #### H [facility] #### [facility] (DEFAULT) [address] [address] RBC Distribution 13.2 % Normal 10.8-14.9 [facility] Comment on above: Performed By: #### H EMOGC #### [facility] (DEFAULT) [address] [address] WBC (Bld) [#/Vol] 11.34 10*3/uL High 3.99-11.19 [facility] Comment on above: Performed By: #### [facility] #### [facility] (DEFAULT) [address] [place] [address] Erythrocyte distribution width (RBC) [Ratio] 13.2 % 10.8 - 14.9 % [facility] Hematocrit (Bld) [Volume fraction] 28.2 % Low 34.9 - 44.3 % [facility] Hemoglobin (Bld) [Mass/Vol] 9.4 g/dL Low 11.4 - 15.2 g/dL [facility] Interpretation and review of laboratory results Abnormal [facility] MCH (RBC) [Entitic mass] 30.7 pg 25.9 - 33.9 pg [facility] MCHC (RBC) [Mass/Vol] 33.3 g/dL 31.4 - 35.9 g/dL [facility] MCV (RBC) [Entitic vol] 92.2 fL 79.6 - 97.7 fL [facility] Platelet mean volume (Bld) [Entitic vol] 11.4 fL 8.5 - 12.2 fL [facility] Platelets (Bld) [#/Vol] 170 10*3/uL 150 - 393 K/uL [facility] RBC (Bld) [#/Vol] 3.06 10*6/uL Low [facility] WBC (Bld) [#/Vol] 11.34 10*3/uL High 3.99 - 11 .19 K/uL [facility] CHEM 7 (LYTES,BUN,CREA,GLUC) on 01-24-2022 Anion gap [Moles/Vol] 10 mmol/L 7 - 17 mmol/L [facility] Chloride [Moles/Vol] 110 mmol/L High 98 - 10 8 mmol/L [facility] CO2 [Moles/Vol] 24 mmol/L 21 - 31 mmol/L [facility] Creatinine [Mass/Vol] 0.68 mg/dL 0.50 - 1.20 mg/dL [facility] GFR/1.73 sq M.predicted CKD-EPI (S/P/Bld) [Vol rate/Area] 89 - PINF [facility] Glucose [Mass/Vol] 82 mg/dL 70 - 99 mg/dL [facility] Interpretation and review of laboratory results Abnormal [facility] Osmolality Calc [Osmolality] 294 [facility] Potassium [Moles/Vol] 3.9 mmol/L 3.5 - 5.0 mmol/L [facility] Sodium [Moles/Vol] 140 mmol/L 135 - 145 mmol/L [facility] Urea nitrogen [Mass/Vol] 21 mg/dL 7 - 25 mg/dL [facility] Urea nitrogen/Creatinine [Mass ratio] 31 mg/mg [facility] Anion gap [Moles/Vol] 10 mmol/L Normal 7-17 [facility] Comment on above: Performed By: #### M GO, CHM7, IPB, LIPDR, HFP #### [facility] (DEFAULT) [address] [place] [address] Chloride [Moles/Vol] 110 mmol/L High 98-108 [facility] Comment on above: Performed By: #### M GO, CHM7, IPB, LIPDR, HFP #### [facility] (DEFAULT) [address] [place] [address] CO2 [Moles/Vol] 24 mmol/L Normal 21-31 [facility] Comment on above: Performed By: #### M GO, CHM7, IPB, LIPDR, HFP #### [facility] (DEFAULT) [address] [place] [address] Creatinine [Mass/Vol] 0.68 mg/dL Normal 0.50-1.20 [facility] Comment on above: Performed By: #### M GO, CHM7, IPB, LIPDR, HFP #### [facility] (DEFAULT) [address] [place] [address] GFR/1.73 sq M.predicted among non-blacks MDRD (S/P/Bld) [Vol rate/Area] 89 mL/min/{1.73_m2} Normal >=60 [facility] Comment on above: Result Comment: Repo rted eGFR is based on the CKD-EPI 2020 equation using creatinine, age, and sex. Performed By: #### M GO, CHM7, IPB, LIPDR, HFP #### [facility] (DEFAULT) [address] [place] [address] Glucose [Mass/Vol] 82 mg/dL Normal 70-99 [facility] Comment on above: Performed By: #### M GO, CHM7, IPB, LIPDR, HFP #### [facility] (DEFAULT) [address] [place] [address] Osmolality [Osmolality] 294 mosm/kg Normal 278-305 [facility] Comment on above: Performed By: #### M GO, CHM7, IPB, LIPDR, HFP #### [facility] (DEFAULT) [address] [place] [address] Potassium [Moles/Vol] 3.9 mmol/L Normal 3.5-5.0 [facility] Comment on above: Performed By: #### M GO, CHM7, IPB, LIPDR, HFP #### [facility] (DEFAULT) [address] [place] [address] Sodium [Moles/Vol] 140 mmol/L Normal 135-145 [facility] Comment on above: Performed By: #### M GO, CHM7, IPB, LIPDR, HFP #### [facility] (DEFAULT) [address] [place] [address] Urea nitrogen [Mass/Vol] 21 mg/dL Normal 7-25 [facility] Comment on above: Performed By: #### M GO, CHM7, IPB, LIPDR, HFP #### [facility] (DEFAULT) [address] [place] [address] Urea nitrogen/Creatinine [Mass ratio] 31 mg/mg Normal [facility] Comment on above: Performed By: #### M GO, CHM7, IPB, LIPDR, HFP #### [facility] (DEFAULT) [address] [place] [address] CONTINUOUS CARDIAC MONITORIN G STRIPon 01-24-[address] [facility] [address] HEAD WITHOUT CONTRASTon 1 03-26-2021 CT [...] Stable examination as compared to 01/22/2022. Normal [facility] CT Head WO contraston 2021 RADIOLOGY RADIOLOGY [facility] Radiology Study observation (narrative) [facility] CT Head WO contrastOrdered B y: Gabriel Diaz on 01-24-2022 [facility] Work Phone: Cardiac echo study Procedure Ordered By: Zay Diaz on 01-24-2022 Ao peak cornelius 1.14 m/s [facility] Work Phone: Ao VTI 19.22 cm [facility] Work Phone: Ascending aorta 3.03 cm [facility] Work Phone: AV LVOT peak gradient 5 [facility]: [facility] mean gradient 3 mmHg [facility]: AV peak gradient 5 mmHG [facility] Work Phone: AV valve area 2.60 cm2 [facility] Work Phone: AV Velocity Ratio 0.96 [facility] Work Phone: KENIA (continuity Vmax) 2.40 cm2 [facility] Work Phone: KENIA (continuity VTI) 2.60 cm2 [facility] Work Phone: KENIA index (continuity Vmax) 1.67 m/s [facility] Work Phone: KENIA index (continuity VTI) 1.81 cm2/m2 [facility] Work Phone: Avg e' pk cornelius 0.09 m/s [facility] Work Phone: Avg E/e' ratio 11.17 [facility] Work Phone: Body surface area Derived from formula 1.44 m2 [facility] Work Phone: BP EF 61 % [facility] Work Phone: DI (Vmax) 0.96 [facility] Work Phone: DI (VTI) 1.03 m/2 [facility] Work Phone: E wave decelartion time 187.86 msec O [facility] Work Phone: e' lateral pk cornelius 0.0913 m/s [facility]: e' lateral pk cornelius 0.09 m/s [facility]: e' septal pk cornelius 0.0878 m/s [facility] Work Phone: e' septal pk cornelius 0.09 m/s [facility] Work Phone: E/A ratio 1.47 [facility] Work [facility]: E[facility]e' [facility]: E/e' septal ratio 11.39 [facility] Work [facility]: EF SP 2CH 65 [facility] Work Phone: EF SP 4CH 59 [facility] Work Phone: EST RAP 3.00 mmHg [facility] Work Phone: EST RVSP 29 mmHg [facility] Work Phone: FS 21 % 28 - 44 % [facility] Work Phone: IVC ostium 1.50 cm [facility] Work Phone: IVS 0.99 cm [facility] Work Phone: LA AREA 2CH 27.08 cm2 [facility] Work Phone: LA area 4CH 24.22 cm2 [facility] Work Phone: LA ESV BP (MOD) 88 mL [facility]: LA ESV BP (MOD) index 61 mL/m2 [facility] Work Phone: LA ESV SP 2CH (MOD) 98 mL [facility] Work Phone: LA ESV SP 4CH (MOD) 79 mL [facility] Work Phone: LV EDV BP 70 mL [facility] Work Phone: LV EDV SP 2CH 65 mL [facility] Work Phone: LV EDV SP 4CH 74 mL [facility] Work Phone: LV ESV BP 27 mL [facility] Work Phone: LV ESV SP 2CH 23 mL [facility] Work Phone: LV ESV SP 4CH 30 mL [facility] Work Phone: LV mass 110.12 g [facility] Work Phone: LV Mass Index 76.5 g/m2 [facility] Work Phone: LV RWT 0.53 [facility] Work Phone: LV stroke volume BP (ml) 43 mL [facility] Work Phone: LV stroke volume index BP 29.86 mL/m2 [facility] Work Phone: LVIDD 3.70 cm [facility] Work Phone: LVIDS 2.92 cm [facility] Work Phone: LVOT area 2.52 cm2 [facility] Work Phone: LVOT diameter 1.79 cm [facility] Work Phone: LVOT peak cornelius 1.09 m/s [facility] Work Phone: LVOT peak VTI 19.88 cm [facility] Work Phone: LVOT stroke volume 50 cm3 [facility] Work Phone: LVOT stroke volume index 34.72 ml/m2 [facility] Work Phone: MV pk A cornelius 0.68 m/s [facility] Work Phone: MV pk E cornelius 1.00 m/s [facility] Work Phone: MV stenosis pressure 1/2 time 54.48 ms [facility] Work Phone: MV valve area p 1/2 method 4.04 cm2 [facility] Work Phone: OSU AV VTI RATIO PRE STRESS 1.03 [facility] Work Phone: OSU ECHO LV BIPLANE SYSTOLIC VOLUME INDEX 18.75 mL/m2 [facility] Work Phone: OSU ECHO LV BP DIASTOLIC VOLUME INDEX 48.61 mL/m2 [facility] Work Phone: PW 0.98 cm [facility] Work Phone: RA area 4CH (MOD) 15.40 cm2 [facility] Work Phone: RA vol index 4CH (MOD) 30.56 mL/m2 [facility] Work Phone: Right atrium volume 4 chamber method of disks 44 mL [facility] Work Phone: RV Area diastolic 21.70 cm2 [facility] Work Phone: RV Area systolic 9.60 cm2 [facility] Work Phone: RV basal diam 3.80 cm [facility] Work Phone: RV Fractional area change 55.8 % [facility] Work Phone: RV long diam 7.00 cm [facility] Work Phone: RV mid diam 2.40 cm [facility] Work Phone: RV S' 12.87 cm/s [facility] Work Phone: Sinus 3.19 cm [facility] Work Phone: STJ 2.62 cm [facility] Work Phone: Stroke Volume 50 cm/mL [facility] Work Phone: Stroke volume index 35 [facility] Work Phone: TAPSE 2.19 cm [facility] Work Phone: TR pk grad 26 mmHg [facility] Work Phone: TR pk cornelius 2.56 m/s [facility] Work Phone: [facility] Work Phone: Cardiac echo study Procedure on 01-24-2022 [facility] Radiology Study observation (narrative) [facility] ECGOrdered By: Margaux bonilla 01-24-2022 [facility] Work Phone: ECHOCARDIOGRAMon 01-24-2022 Echocardiography 1. The left ventricular chamber size and systolic function are normal. LVEF 60-65%. 2. The right ventricular chamber size and systolic function are normal. 3. Left atrium is severely enlarged. 4. There is mild pulmonic regurgitation. Table formatting from the original result was not included. Images from the original result were not included. Facility [facility] Patient Information Patient Name Karlie Valle Legal [...] Role Read Date Zay Diaz MD [facility] [place] 01/24/2022 Wall Scoring Score Index: 1.00 The [...] Performed Procedure Technologist Supporting Staff Performing Physician AK ECHOCARDIOGRAM W/O 3D Julius Candelario RDCS Appointmen (more content not included)... Normal [facility] FLUAV and FLUBV Ag IA.rapid Nom (Unsp spec)on 01-24-2022 FLUAV Ag IA.rapid Ql (Nph) Not detected Not Detected [facility] FLUBV Ag IA.rapid Ql (Nph) Not detected Not Detected [facility] Interpretation and review of laboratory results Normal [facility] INFLUENZA A/B RAPID MOLECULA Chapito 01-24-2022 Influenza A, Molecular Not detected Normal Not Detecte d [facility] Comment on above: Order Comment: This test utilizes isothermal nucleic amplification technology for the differential qualitative detection of influenza A and influenza B viral nucleic acids. Performed By: #### H [facility] #### [facility] (DEFAULT) [address] [place] [address] Influenza B, Molecular Not detected Normal Not Detecte d [facility] Comment on above: Order Comment: This test utilizes isothermal nucleic amplification technology for the differential qualitative detection of influenza A and influenza B viral nucleic acids. Performed By: #### H [facility] #### [facility] (DEFAULT) [address] [address] IONIZED CALCIUM, WHOLE BLOOD on 01-24-2022 Calcium.ionized (Bld) [Moles/Vol] 4.74 mg/dL 4.60 - 5.30 mg/dL [facility] Interpretation and review of laboratory results Normal [facility] ICA 4.74 mg/dL Normal 4.60-5.30 [facility] Comment on above: Performed By: #### M GO, CHM7, IPB, LIPDR, HFP #### [facility] (DEFAULT) [address] [place] [address] MAGNESIUMon 01-24-2022 Interpretation and review of laboratory results Normal [facility] Magnesium [Mass/Vol] 2.1 mg/dL 1.6 - 2 .6 mg/dL [facility] Magnesium [Mass/Vol] 2.1 mg/dL Normal 1.6-2.6 [facility] Comment on above: Performed By: #### M JOSE RAMON, CHM7, IPB, LIPDR, HFP #### [facility] (DEFAULT) [address] [place] [address] PHOSPHATE, INORGANICon 01-24 Interpretation and review of laboratory results Abnormal [facility] Phosphate [Mass/Vol] 1.6 mg/dL Low 2.2 - 4 .6 mg/dL [facility] Phosphorous 1.6 mg/dL Low 2.2-4.6 [facility] Comment on above: Performed By: #### M GO, CHM7, IPB, LIPDR, HFP #### [facility] (DEFAULT) [address] [place] [address] Portable XR Chest Viewson RADIOLOGY RADIOLOGY [facility] Radiology Study observation (narrative) [facility] Portable XR Chest ViewsOrder ed By: Radha Shine on 01-24-2022 [facility] Work Phone: SARS-COV-2 RAPIDon 2 SARS-CoV-2 (COVID-19) RNA CHRIS+probe Ql (Unsp spec) Not detected Normal NOT DETECTED [facility] Comment on above: Order Comment: Use r [...] eye protection, gown and gloves. Result Comment: [facility] Negative results do not preclude [...] laboratories. Performed By: #### L [email or web address] #### [facility] (DEFAULT) [address] [place] [address] SARS-CoV-2 (COVID-19) RNA NA A+probe Ql (Unsp spec)Ordered By: Beverly Mcwilliams on 01-24-2022 Interpretation and review of laboratory results Normal [facility] SARS-CoV-2 (COVID-19) RdRp gene CHRIS+probe Ql (Resp) Not detected NOT DETECTED [facility] URINALYSIS REFLEX TO CULTURE PERFORMABLEon 01-24-2022 Appearance (U) Clear Normal Clear [facility] Comment on above: Order Comment: Use r [...] Performed By: #### L [email or web address] #### [facility] (DEFAULT) [address] [address] Bacteria ABSENT Normal ABSENT [facility] Comment on above: Order Comment: Use r [...] Performed By: #### L [email or web address] #### [facility] (DEFAULT) [address] [address] Blood Urine Small Abnormal Negative [facility] Comment on above: Order Comment: Use r [...] Performed By: #### L [email or web address] #### [facility] (DEFAULT) [address] [place] [address] Color (U) Yellow Normal Yellow [facility] Comment on above: Order Comment: Use r [...] Performed By: #### L [email or web address] #### [facility] (DEFAULT) [address] [place] [address] Glucose Ql (U) Negative Normal Negative [facility] Comment on above: Order Comment: Use r [...] gloves. Performed By: #### L [email or web address] #### [facility] (DEFAULT) [address] [address] Ketones Ql (U) Negative Normal Negative [facility] Comment on above: Order Comment: Use r [...] Performed By: #### L [email or web address] #### [facility] (DEFAULT) [address] [address] Leukocyte esterase Test strip Ql (U) Trace Abnormal Negative [facility] Comment on above: Order Comment: Use r [...] Performed By: #### L [email or web address] #### [facility] (DEFAULT) [address] [address] Nitrites Urine Negative Normal Negative [facility] Comment on above: Order Comment: Use r [...] Performed By: #### L [email or web address] #### [facility] (DEFAULT) [address] [address] pH (U) 6.0 [pH] Normal 5.0-7.0 [facility] Comment on above: Order Comment: Use r [...] Performed By: #### L [email or web address] #### [facility] (DEFAULT) [address] [place] [address] Protein Urine Negative Normal Negative [facility] Comment on above: Order Comment: Use r [...] Performed By: #### L [email or web address] #### [facility] (DEFAULT) [address] [place] [address] RBC Urine 3-5 Abnormal 0-2 [facility] Comment on above: Order Comment: Use r [...] Performed By: #### L [email or web address] #### [facility] (DEFAULT) [address] [address] Specific Bessie Urine 1.013 Normal 1.001-1.035 [facility] Comment on above: Order Comment: Use r [...] Performed By: #### L [email or web address] #### [facility] (DEFAULT) [address] [address] Squamous/Epithelial Cells 1/hpf = 1+ Normal 1/hpf = 1+, 2-5/hpf = 2+, 0/hpf = 0+, ABSENT [facility] Comment on above: Order Comment: Use r [...] Performed By: #### L [email or web address] #### [facility] (DEFAULT) [address] [address] Urobilinogen Urine 0.2 E.U./dL Normal 0.2 E.U/d L, 1.0 E.U/dL [facility] Comment on above: Order Comment: Use r [...] Performed By: #### L [email or web address] #### [facility] (DEFAULT) [address] [address] WBC Urine 0-5 Normal 0-5 [facility] Comment on above: Order Comment: Use r [...] gloves. Performed By: #### L [email or web address] #### [facility] (DEFAULT) [address] [place] [address] Appearance (U) Clear Clear [facility] Bacteria LM Ql (Urine sed) ABSENT ABSENT [facility] Color (U) Yellow Yellow [facility] Epithelial cells.squamous LM Ql (Urine sed) 1/hpf = 1+ 1/hpf = 1+, 2-5/hpf = 2+, 0/hpf = 0+, ABSENT [facility] Glucose Test strip (U) [Mass/Vol] Negative Negative [facility] Interpretation and review of laboratory results Abnormal [facility] Ketones (U) [Mass/Vol] Negative Negative [facility] Leukocyte esterase Test strip Ql (U) Trace Abnormal Negative [facility] Nitrite Ql (U) Negative Negative [facility] pH (U) 6.0 [pH] 5.0 - 7.0 [facility] Protein (U) [Mass/Vol] Negative Negative [facility] RBC (U) [#/Vol] Small Abnormal [facility] RBC LM.HPF (Urine sed) [#/Area] 3-5 Abnormal [facility] Specific gravity (U) [Rel density] 1.013 1.001 - 1.035 [facility] Urobilinogen (U) [Mass/Vol] 0.2 E.U./dL 0.2 E.U/dL, 1.0 E.U/dL [facility] WBC LM.HPF (Urine sed) [#/Area] 0-5 [facility] XR CHEST PORTABLEon 01-25-20 XR CHEST PORTABLE EXAM: XR CHEST PORTABLE, 01/24/2022 11:24 AM COMPARISON: January 22, 2022 CLINICAL INDICATIONS: tachypnea, fever RELEVANT CLINICAL HISTORY: FINDINGS: (Adequate technique) Implanted Devices: None Thorax: No acute findings in the chest. IMPRESSION: No acute cardiopulmonary disease Normal [facility] B-TYPE NATRIURETIC PEPTIDE ( BRAIN)on 01-23-2022 Natriuretic peptide B (Bld) [Mass/Vol] 195 pg/mL High 0-100 [facility] Comment on above: Performed By: #### M GO, CHM7, IPB, LIPDR, HFP #### [facility] (DEFAULT) [address] [place], [place] [address] BLOOD CULTUREon 01-23-2022 Bacteria identified Cx Nom (Unsp spec) NO GROWTH DAY 5 OF 5 Normal [facility] Comment on above: Order Comment: Use r [...] gloves. Performed By: #### L [email or web address] #### [facility] (DEFAULT) [address] [place] [address] CBC,PLATELETSon 01-23-2022 Erythrocyte distribution width (RBC) [Ratio] 13.6 % 10.8 - 14.9 % [facility] Hematocrit (Bld) [Volume fraction] 31.0 % Low 34.9 - 44.3 % [facility] Hemoglobin (Bld) [Mass/Vol] 10.3 g/dL Low 11.4 - 15.2 g/dL [facility] Interpretation and review of laboratory results Abnormal [facility] MCH (RBC) [Entitic mass] 30.6 pg 25.9 - 33.9 pg [facility] MCHC (RBC) [Mass/Vol] 33.2 g/dL 31.4 - 35.9 g/dL [facility] MCV (RBC) [Entitic vol] 93.4 fL 79.6 - 97.7 fL [facility] Platelet mean volume (Bld) [Entitic vol] 11.1 fL 8.5 - 12.2 fL [facility] Platelets (Bld) [#/Vol] 175 10*3/uL 150 - 393 K/uL [facility] RBC (Bld) [#/Vol] 3.32 10*6/uL Low [facility] WBC (Bld) [#/Vol] 10.64 10*3/uL 3.99 - 11 .19 K/uL [facility] MCV (RBC) [Entitic vol] 93.4 fL Normal 79.6-97.7 [facility] Comment on above: Performed By: #### M GO, CHM7, IPB, LIPDR, HFP #### [facility] (DEFAULT) [address] [place] [address] Mean Cell Hgb 30.6 pg Normal 25.9-33.9 [facility] Comment on above: Performed By: #### M GO, CHM7, IPB, LIPDR, HFP #### [facility] (DEFAULT) [address] [place] [address] Mean Cell Hgb Conc 33.2 g/dL Normal 31.4-35.9 [facility] Comment on above: Performed By: #### M GO, CHM7, IPB, LIPDR, HFP #### [facility] (DEFAULT) [address] [place] [address] Platelet mean volume (Bld) [Entitic vol] 11.1 fL Normal 8.5-12.2 [facility] Comment on above: Performed By: #### M GO, CHM7, IPB, LIPDR, HFP #### [facility] (DEFAULT) [address] [place] [address] Platelets (Bld) [#/Vol] 175 10*3/uL Normal 150-393 [facility] Comment on above: Performed By: #### M GO, CHM7, IPB, LIPDR, HFP #### [facility] (DEFAULT) [address] [place] [address] [id number] RBC (Bld) [#/Vol] 3.32 10*6/uL Low 3.91-5.04 [facility] Comment on above: Performed By: #### M GO, CHM7, IPB, LIPDR, HFP #### [facility] (DEFAULT) [address] [place] [address] 72005 RBC Distribution 13.6 % Normal 10.8-14.9 [facility] Comment on above: Performed By: #### M GO, CHM7, IPB, LIPDR, HFP #### [facility] (DEFAULT) [address] [place] [address] 80218 WBC (Bld) [#/Vol] 10.64 10*3/uL Normal 3.99-11.19 [facility] Comment on above: Performed By: #### M GO, CHM7, IPB, LIPDR, HFP #### [facility] (DEFAULT) [address] [place] [address] 59662 Hematocrit (Bld) [Volume fraction] 28.6 % Low 34.9-44.3 [facility] Comment on above: Performed By: #### M GO, CHM7, IPB, LIPDR, HFP #### [facility] (DEFAULT) [address] [place] [address] 77696 Hemoglobin (Bld) [Mass/Vol] 9.1 g/dL Low 11.4-15.2 [facility] Comment on above: Performed By: #### M GO, CHM7, IPB, LIPDR, HFP #### [facility] (DEFAULT) [address] [place] [address] 63587 MCV (RBC) [Entitic vol] 97.3 fL Normal 79.6-97.7 [facility] Comment on above: Performed By: #### M GO, CHM7, IPB, LIPDR, HFP #### [facility] (DEFAULT) [address] [place] [address] 87015 Mean Cell Hgb 31.0 pg Normal 25.9-33.9 [facility] Comment on above: Performed By: #### M GO, CHM7, IPB, LIPDR, HFP #### [facility] (DEFAULT) [address] [place] [address] 02958 Mean Cell Hgb Conc 31.8 g/dL Normal 31.4-35.9 [facility] Comment on above: Performed By: #### M GO, CHM7, IPB, LIPDR, HFP #### [facility] (DEFAULT) [address] [place] [address] 90920 Platelet mean volume (Bld) [Entitic vol] 10.7 fL Normal 8.5-12.2 [facility] Comment on above: Performed By: #### M GO, CHM7, IPB, LIPDR, HFP #### [facility] (DEFAULT) [address] [place] [address] 99820 Platelets (Bld) [#/Vol] 102 10*3/uL Low 150-393 [facility] Comment on above: Performed By: #### M GO, CHM7, IPB, LIPDR, HFP #### [facility] (DEFAULT) [address] [place] [address] 82746 RBC (Bld) [#/Vol] 2.94 10*6/uL Low 3.91-5.04 [facility] Comment on above: Performed By: #### M GO, CHM7, IPB, LIPDR, HFP #### [facility] (DEFAULT) [address] [place] [address] 00238 RBC Distribution 13.8 % Normal 10.8-14.9 [facility] Comment on above: Performed By: #### M JOSE RAMON, CHM7, IPB, LIPDR, HFP #### [facility] (DEFAULT) [address] [place] [address] WBC (Bld) [#/Vol] 9.75 10*3/uL Normal 3.99-11.19 [facility] Comment on above: Performed By: #### M JOSE RAMON, CHM7, IPB, LIPDR, HFP #### [facility] (DEFAULT) [address] [place] [address] Erythrocyte distribution width (RBC) [Ratio] 13.8 % 10.8 - 14.9 % [facility] Hematocrit (Bld) [Volume fraction] 28.6 % Low 34.9 - 44.3 % [facility] Hemoglobin (Bld) [Mass/Vol] 9.1 g/dL Low 11.4 - 15.2 g/dL [facility] Interpretation and review of laboratory results Abnormal [facility] MCH (RBC) [Entitic mass] 31.0 pg 25.9 - 33.9 pg [facility] MCHC (RBC) [Mass/Vol] 31.8 g/dL 31.4 - 35.9 g/dL [facility] MCV (RBC) [Entitic vol] 97.3 fL 79.6 - 97.7 fL [facility] Platelet mean volume (Bld) [Entitic vol] 10.7 fL 8.5 - 12.2 fL [facility] Platelets (Bld) [#/Vol] 102 10*3/uL Low 150 - 393 K/uL [facility] RBC (Bld) [#/Vol] 2.94 10*6/uL Low [facility] WBC (Bld) [#/Vol] 9.75 10*3/uL 3.99 - 11. 19 K/uL [facility] CHEM 7 (LYTES,BUN,CREA,GLUC) on 01-23-2022 Anion gap [Moles/Vol] 17 mmol/L 7 - 17 mmol/L [facility] Chloride [Moles/Vol] 108 mmol/L 98 - 10 8 mmol/L [facility] CO2 [Moles/Vol] 20 mmol/L Low 21 - 31 mmol/L [facility] Creatinine [Mass/Vol] 0.88 mg/dL 0.50 - 1.20 mg/dL [facility] GFR/1.73 sq M.predicted CKD-EPI (S/P/Bld) [Vol rate/Area] 67 - PINF [facility] Glucose [Mass/Vol] 112 mg/dL High 70 - 99 mg/dL [facility] Interpretation and review of laboratory results Abnormal [facility] Osmolality Calc [Osmolality] 298 [facility] Potassium [Moles/Vol] 4.6 mmol/L 3.5 - 5.0 mmol/L [facility] Sodium [Moles/Vol] 140 mmol/L 135 - 145 mmol/L [facility] Urea nitrogen [Mass/Vol] 23 mg/dL 7 - 25 mg/dL [facility] Urea nitrogen/Creatinine [Mass ratio] 26 mg/mg [facility] Anion gap [Moles/Vol] 17 mmol/L Normal 7-17 [facility] Comment on above: Performed By: #### M JOSE RAMON, CHM7, IPB, LIPDR, HFP #### [facility] (DEFAULT) [address] [place] [address] Chloride [Moles/Vol] 108 mmol/L Normal 98-108 [facility] Comment on above: Performed By: #### M JOSE RAMON, CHM7, IPB, LIPDR, HFP #### [facility] (DEFAULT) [address] [place] [address] CO2 [Moles/Vol] 20 mmol/L Low 21-31 [facility] Comment on above: Performed By: #### M JOSE RAMON, CHM7, IPB, LIPDR, HFP #### [facility] (DEFAULT) [address] [place] [address] Creatinine [Mass/Vol] 0.88 mg/dL Normal 0.50-1.20 [facility] Comment on above: Performed By: #### M JOSE RAMON, CHM7, IPB, LIPDR, HFP #### [facility] (DEFAULT) [address] [place] [address] 30602 GFR/1.73 sq M.predicted among non-blacks MDRD (S/P/Bld) [Vol rate/Area] 67 mL/min/{1.73_m2} Normal >=60 [facility] Comment on above: Result Comment: Repo rted eGFR is based on the CKD-EPI 2020 equation using creatinine, age, and sex. Performed By: #### M GO, CHM7, IPB, LIPDR, HFP #### [facility] (DEFAULT) [address] [place] [address] 67193 Glucose [Mass/Vol] 112 mg/dL High 70-99 [facility] Comment on above: Performed By: #### Sesar ALBRIGHT, CHM7, IPB, LIPDR, HFP #### [facility] (DEFAULT) [address] [place] [address] 10469 Osmolality [Osmolality] 298 mosm/kg Normal 278-305 [facility] Comment on above: Performed By: #### M GO, CHM7, IPB, LIPDR, HFP #### [facility] (DEFAULT) [address] [place] [address] 01736 Potassium [Moles/Vol] 4.6 mmol/L Normal 3.5-5.0 [facility] Comment on above: Performed By: #### M GO, CHM7, IPB, LIPDR, HFP #### [facility] (DEFAULT) [address] [place] [address] 16364 Sodium [Moles/Vol] 140 mmol/L Normal 135-145 [facility] Comment on above: Performed By: #### Sesar GO, CHM7, IPB, LIPDR, HFP #### [facility] (DEFAULT) [address] [place] [address] 21368 Urea nitrogen [Mass/Vol] 23 mg/dL Normal 7-25 [facility] Comment on above: Performed By: #### M FARHAN ALBRIGHT, CAIT, QUIN, HFP #### [facility] (DEFAULT) [address] [place] [address] Urea nitrogen/Creatinine [Mass ratio] 26 mg/mg Normal [facility] Comment on above: Performed By: #### M FARHAN ALBRIGHT, CAIT, LIP, HFP #### [facility] (DEFAULT) [address] [place] [address] CONTINUOUS CARDIAC MONITORIN G STRIPon 01-23-2022 [facility] ELECTRONIC DIFFon 01-23-2022 Basophils (Bld) [#/Vol] K/uL 0.00 - 0.15 K/uL [facility] Basophils/100 WBC (Bld) 0.3 % O [facility] Eosinophils (Bld) [#/Vol] 0.26 10*3/uL 0.00 - 0.42 K/uL [facility] Eosinophils/100 WBC (Bld) 2.4 % [facility] Immature granulocytes (Bld) [#/Vol] K/uL NINF - 0.08 K/uL [facility] Immature granulocytes/100 WBC (Bld) 0.3 % [facility] Interpretation and review of laboratory results Abnormal [facility] Lymphocytes (Bld) [#/Vol] 1.69 10*3/uL 1.16 - 3.51 K/uL [facility] Lymphocytes/100 WBC (Bld) 15.9 % [facility] Monocytes (Bld) [#/Vol] 0.77 10*3/uL 0.22 - 0.87 K/uL [facility] Monocytes/100 WBC (Bld) 7.2 % [facility] Neutrophils (Bld) [#/Vol] 7.86 10*3/uL High 1.64 - 7.28 K/uL [facility] Nucleated RBC/100 WBC (Bld) [Ratio] 0.0 % NINF [facility] Segmented neutrophils/100 WBC (Bld) 73.9 % [facility] Abs Baso Auto < Normal 0.00-0.15 [facility] Comment on above: Performed By: #### M GO, CHM7, IPB, LIPDR, HFP #### [facility] (DEFAULT) [address] [place] [address] 03328 Basophils/100 WBC (Bld) 0.3 % Normal [facility] Comment on above: Performed By: #### M GO, CHM7, IPB, LIPDR, HFP #### [facility] (DEFAULT) [address] [place] [address] 31580 Eosinophils (Bld) [#/Vol] 0.26 10*3/uL Normal 0.00-0.42 [facility] Comment on above: Performed By: #### M GO, CHM7, IPB, LIPDR, HFP #### [facility] (DEFAULT) [address] [place] [address] 74290 Eosinophils/100 WBC (Bld) 2.4 % Normal [facility] Comment on above: Performed By: #### M GO, CHM7, IPB, LIPDR, HFP #### [facility] (DEFAULT) [address] [place] [address] 62452 Immature Grans % 0.3 % Normal [facility] Comment on above: Performed By: #### M GO, CHM7, IPB, LIPDR, HFP #### [facility] (DEFAULT) [address] [place] [address] 01617 Immature Grans Absolute < Normal <=0.08 [facility] Comment on above: Performed By: #### M GO, CHM7, IPB, LIPDR, HFP #### [facility] (DEFAULT) [address] [place] [address] 72351 Lymphocytes (Bld) [#/Vol] 1.69 10*3/uL Normal 1.16-3.51 [facility] Comment on above: Performed By: #### M GO, CHM7, IPB, LIPDR, HFP #### [facility] (DEFAULT) [address] [place] [address] 39832 Lymphocytes/100 WBC (Bld) 15.9 % Normal [facility] Comment on above: Performed By: #### M GO, CHM7, IPB, LIPDR, HFP #### [facility] (DEFAULT) [address] [place] [address] 26742 Monocytes (Bld) [#/Vol] 0.77 10*3/uL Normal 0.22-0.87 [facility] Comment on above: Performed By: #### M GO, CHM7, IPB, LIPDR, HFP #### [facility] (DEFAULT) [address] [place] [address] 13281 Monocytes/100 WBC (Bld) 7.2 % Normal [facility] Comment on above: Performed By: #### M GO, CHM7, IPB, LIPDR, HFP #### [facility] (DEFAULT) [address] [place] [address] 21057 Nucleated RBC 0.0 /100 WBC Normal <=0.2 [facility] Comment on above: Performed By: #### M GO, CHM7, IPB, LIPDR, HFP #### [facility] (DEFAULT) [address] [place] [address] 65315 Segs + Bands Auto 73.9 % Normal [facility] Comment on above: Performed By: #### M GO, CHM7, IPB, LIPDR, HFP #### [facility] (DEFAULT) [address] [place] [address] 07403 Segs + Bands,Absolute Auto 7.86 K/uL High 1.64-7.28 [facility] Comment on above: Performed By: #### M GO, CHM7, IPB, LIPDR, HFP #### [facility] (DEFAULT) [address] [place] [address] 26018 GLUCOSE POCon 01-23-2022 Glucose [Mass/Vol] 154 mg/dL High 70 - 99 mg/dL [facility] Interpretation and review of laboratory results Abnormal [facility] POC Sample Type CAPBL [facility] HEMOGLOBIN & HEMATOCRITon Hematocrit (Bld) [Volume fraction] 31.0 % Low 34.9-44.3 [facility] Comment on above: Performed By: #### M GO, CHM7, IPB, LIPDR, HFP #### [facility] (DEFAULT) [address] [place] [address] 81332 Hemoglobin (Bld) [Mass/Vol] 10.3 g/dL Low 11.4-15.2 [facility] Comment on above: Performed By: #### M GO, CHM7, IPB, LIPDR, HFP #### [facility] (DEFAULT) [address] [place] [address] 93369 Hematocrit (Bld) [Volume fraction] 31.0 % Low 34.9 - 44.3 % [facility] Hemoglobin (Bld) [Mass/Vol] 10.3 g/dL Low 11.4 - 15.2 g/dL [facility] Interpretation and review of laboratory results Abnormal [facility] IONIZED CALCIUM, WHOLE BLOOD on 01-23-2022 ICA 3.80 mg/dL Low 4.60-5.30 [facility] Comment on above: Performed By: #### M GO, CHM7, IPB, LIPDR, HFP #### [facility] (DEFAULT) [address] [place] [address] 82271 IONIZED CALCIUM, WHOLE BLOOD Ordered By: Kang Grayson on 01-23-2022 Calcium.ionized (Bld) [Moles/Vol] 3.80 mg/dL Low 4.60 - 5.30 mg/dL [facility] Interpretation and review of laboratory results Abnormal [facility] MAGNESIUMon 01-23-2022 Magnesium [Mass/Vol] 2.1 mg/dL Normal 1.6-2.6 [facility] Comment on above: Performed By: #### M FARHAN ALBRIGHT, IPCheko, LIP, HFP #### [facility] (DEFAULT) [address] [place] [address] 59250 Magnesium [Mass/Vol] 2.1 mg/dL 1.6 - 2 .6 mg/dL [facility] No Panel Informationon 01-23 Interpretation and review of laboratory results Normal [facility] PHOSPHATE, INORGANICon 01-23 Phosphorous 3.9 mg/dL Normal 2.2-4.6 [facility] Comment on above: Performed By: #### FARHAN CALL, IPB, LIPDR, HFP #### [facility] (DEFAULT) [address] [place] [address] 78179 Phosphate [Mass/Vol] 3.9 mg/dL 2.2 - 4 .6 mg/dL [facility] PLATELET COUNTon 01-23-2022 Platelet mean volume (Bld) [Entitic vol] 10.8 fL Normal 8.5-12.2 [facility] Comment on above: Performed By: #### M FARHAN ALBRIGHT, IPB, LIPDR, HFP #### [facility] (DEFAULT) [address] [place] [address] 84446 Platelets (Bld) [#/Vol] 190 10*3/uL Normal 150-393 [facility] Comment on above: Performed By: #### M ESME ALBRIGHTMJames, IPB, LIPDR, HFP #### [facility] (DEFAULT) [address] [place] [address] 81367 Interpretation and review of laboratory results Normal [facility] Platelet mean volume (Bld) [Entitic vol] 10.8 fL 8.5 - 12.2 fL [facility] Platelets (Bld) [#/Vol] 190 10*3/uL 150 - 393 K/uL [facility] VON WILLE[facility]AND FACTOR AGOrde red By: Yajaira Talley on 01-23-2022 Interpretation and review of laboratory results Abnormal [facility] vWf Ag actual/normal IA (PPP) [Relative mass conc] 373 % High 50 - 180 % [facility] BLOOD CULTUREon 01-22-2022 Bacteria identified Cx Nom (Unsp spec) NO GROWTH DAY 5 OF 5 Normal [facility] Comment on above: Order Comment: Use r [...] gloves. Performed By: #### L ABSARS1 #### [facility] (DEFAULT) [address] [place] [address] 70386 CBC,PLATELETSon 01-22-2022 Hematocrit (Bld) [Volume fraction] 35.1 % Normal 34.9-44.3 [facility] Comment on above: Performed By: #### M ESME ALBRIGHTM7, IPB, LIPDR, HFP #### [facility] (DEFAULT) [address] [place] [address] 74922 Hemoglobin (Bld) [Mass/Vol] 10.7 g/dL Low 11.4-15.2 [facility] Comment on above: Performed By: #### M ESME ALBRIGHTM7, IPB, LIPDR, HFP #### [facility] (DEFAULT) [address] [place] [address] 02750 MCV (RBC) [Entitic vol] 100.6 fL High 79.6-97.7 [facility] Comment on above: Result Comment: Resu lts inconsistent with previous results Performed By: #### M JOSE RAMON CHM7, IPB, LIPDR, HFP #### [facility] (DEFAULT) [address] [place] [address] 09649 Mean Cell Hgb 30.7 pg Normal 25.9-33.9 [facility] Comment on above: Performed By: #### M GO, CHM7, IPB, LIPDR, HFP #### [facility] (DEFAULT) [address] [place] [address] 58195 Mean Cell Hgb Conc 30.5 g/dL Low 31.4-35.9 [facility] Comment on above: Performed By: #### M GO, CHM7, IPB, LIPDR, HFP #### [facility] (DEFAULT) [address] [place] [address] 06521 Platelet mean volume (Bld) [Entitic vol] 10.1 fL Normal 8.5-12.2 [facility] Comment on above: Performed By: #### M GO, CHM7, IPB, LIPDR, HFP #### [facility] (DEFAULT) [address] [place] [address] 58267 Platelets (Bld) [#/Vol] 181 10*3/uL Normal 150-393 [facility] Comment on above: Performed By: #### M GO, CHM7, IPB, LIPDR, HFP #### [facility] (DEFAULT) [address] [place] [address] 45896 RBC (Bld) [#/Vol] 3.49 10*6/uL Low 3.91-5.04 [facility] Comment on above: Performed By: #### M GO, CHM7, IPB, LIPDR, HFP #### [facility] (DEFAULT) [address] [place] [address] 29151 RBC Distribution 13.9 % Normal 10.8-14.9 [facility] Comment on above: Performed By: #### M GO, CHM7, IPB, LIPDR, HFP #### [facility] (DEFAULT) [address] [place] [address] 78295 WBC (Bld) [#/Vol] 12.17 10*3/uL High 3.99-11.19 [facility] Comment on above: Performed By: #### M FARHAN ALBRIGHT, IPB, LIPDR, HFP #### [facility] (DEFAULT) [address] [place] [address] 23999 Erythrocyte distribution width (RBC) [Ratio] 13.9 % 10.8 - 14.9 % [facility] Hematocrit (Bld) [Volume fraction] 35.1 % 34.9 - 44.3 % [facility] Hemoglobin (Bld) [Mass/Vol] 10.7 g/dL Low 11.4 - 15.2 g/dL [facility] Interpretation and review of laboratory results Abnormal [facility] MCH (RBC) [Entitic mass] 30.7 pg 25.9 - 33.9 pg [facility] MCHC (RBC) [Mass/Vol] 30.5 g/dL Low 31.4 - 35.9 g/dL [facility] MCV (RBC) [Entitic vol] 100.6 fL High 79.6 - 97.7 fL [facility] Platelet mean volume (Bld) [Entitic vol] 10.1 fL 8.5 - 12.2 fL [facility] Platelets (Bld) [#/Vol] 181 10*3/uL 150 - 393 K/uL [facility] RBC (Bld) [#/Vol] 3.49 10*6/uL Low [facility] WBC (Bld) [#/Vol] 12.17 10*3/uL High 3.99 - 11 .19 K/uL [facility] CHEM 7 (LYTES,BUN,CREA,GLUC) on 01-22-2022 Anion gap [Moles/Vol] 11 mmol/L Normal 7-17 [facility] Comment on above: Performed By: #### M ESME ALBRIGHTM7, IPB, LIPDR, HFP #### [facility] (DEFAULT) [address] [place] [address] Chloride [Moles/Vol] 106 mmol/L Normal 98-108 [facility] Comment on above: Performed By: #### M GO, CHM7, IPB, LIPDR, HFP #### [facility] (DEFAULT) [address] [place] [address] 24546 CO2 [Moles/Vol] 24 mmol/L Normal 21-31 [facility] Comment on above: Performed By: #### M GO, CHM7, IPB, LIPDR, HFP #### [facility] (DEFAULT) [address] [place] [address] 01547 Creatinine [Mass/Vol] 0.86 mg/dL Normal 0.50-1.20 [facility] Comment on above: Performed By: #### M GO, CHM7, IPB, LIPDR, HFP #### [facility] (DEFAULT) [address] [place] [address] 74858 GFR/1.73 sq M.predicted among non-blacks MDRD (S/P/Bld) [Vol rate/Area] 69 mL/min/{1.73_m2} Normal >=60 [facility] Comment on above: Result Comment: Repo rted eGFR is based on the CKD-EPI 2020 equation using creatinine, age, and sex. Performed By: #### M GO, CHM7, IPB, LIPDR, HFP #### [facility] (DEFAULT) [address] [place] [address] 12462 Glucose [Mass/Vol] 94 mg/dL Normal 70-99 [facility] Comment on above: Performed By: #### M GO, CHM7, IPB, LIPDR, HFP #### [facility] (DEFAULT) [address] [place] [address] 85984 Osmolality [Osmolality] 291 mosm/kg Normal 278-305 [facility] Comment on above: Performed By: #### M GO, CHM7, IPB, LIPDR, HFP #### [facility] (DEFAULT) [address] [place] [address] 66549 Potassium [Moles/Vol] 4.1 mmol/L Normal 3.5-5.0 [facility] Comment on above: Performed By: #### M GO, CHM7, IPB, LIPDR, HFP #### [facility] (DEFAULT) [address] [place] [address] 79935 Sodium [Moles/Vol] 137 mmol/L Normal 135-145 [facility] Comment on above: Performed By: #### M GO, CHM7, IPB, LIPDR, HFP #### [facility] (DEFAULT) [address] [place] [address] 12322 Urea nitrogen [Mass/Vol] 24 mg/dL Normal 7-25 [facility] Comment on above: Performed By: #### M GO, CHM7, IPB, LIPDR, HFP #### [facility] (DEFAULT) [address] [place] [address] 27828 Urea nitrogen/Creatinine [Mass ratio] 28 mg/mg Normal [facility] Comment on above: Performed By: #### M GO, CHM7, IPB, LIPDR, HFP #### [facility] (DEFAULT) [address] [place] [address] 83277 Anion gap [Moles/Vol] 11 mmol/L 7 - 17 mmol/L [facility] Chloride [Moles/Vol] 106 mmol/L 98 - 10 8 mmol/L [facility] CO2 [Moles/Vol] 24 mmol/L 21 - 31 mmol/L [facility] Creatinine [Mass/Vol] 0.86 mg/dL 0.50 - 1.20 mg/dL [facility] GFR/1.73 sq M.predicted CKD-EPI (S/P/Bld) [Vol rate/Area] 69 - PINF [facility] Glucose [Mass/Vol] 94 mg/dL 70 - 99 mg/dL [facility]olality] [facility] Potassium [Moles/Vol] 4.1 mmol/L 3.5 - 5.0 mmol/L [facility] Sodium [Moles/Vol] 137 mmol/L 135 - 145 mmol/L [facility] Urea nitrogen [Mass/Vol] 24 mg/dL 7 - 25 mg/dL [facility] Urea nitrogen/Creatinine [Mass ratio] 28 mg/mg [facility] CONTINUOUS CARDIAC MONITORIN G STRIPon 01-22-2022 [facility] CT HEAD WITHOUT CONTRASTon 1 03-24-2021 CT [...] have reviewed and approved this report. Normal [facility] CT HEAD WITHOUT CONTRAST EXAM: CT HEAD [...] midline shift to the left stable. Normal [facility] CT Head WO contraston 2021 RADIOLOGY [facility] [facility] Radiology Study observation (narrative) [facility] RADIOLOGY RADIOLOGY [facility] Radiology Study observation (narrative) [facility] CT Head WO contrastOrdered B y: Kate Melendrez on 01-22-2022 [facility] Work Phone: IONIZED CALCIUM, WHOLE BLOOD on 01-22-2022 ICA 4.41 mg/dL Low 4.60-5.30 [facility] Comment on above: Performed By: #### [facility] #### [facility] (DEFAULT) [address] [place] [address] IONIZED CALCIUM, WHOLE BLOOD Ordered By: Mark Gonzalez on 01-22-2022 Calcium.ionized (Bld) [Moles/Vol] 4.41 mg/dL Low 4.60 - 5.30 mg/dL [facility] Interpretation and review of laboratory results Abnormal [facility] MAGNESIUMon 01-22-2022 Magnesium [Mass/Vol] 2.0 mg/dL Normal 1.6-2.6 [facility] Comment on above: Performed By: #### M GO, CHM7, IPB, LIPDR, HFP #### [facility] (DEFAULT) [address] [place] [address] Magnesium [Mass/Vol] 2.0 mg/dL 1.6 - 2 .6 mg/dL [facility] No Panel Informationon 01-22 [facility] Interpretation and review of laboratory results Normal [facility] PHOSPHATE, INORGANICon 01-22 Phosphorous 2.9 mg/dL Normal 2.2-4.6 [facility] Comment on above: Performed By: #### M GO, CHM7, IPB, LIPDR, HFP #### [facility] (DEFAULT) [address] [place] [address] Phosphate [Mass/Vol] 2.9 mg/dL 2.2 - 4 .6 mg/dL [facility] Portable XR Chest [facility] RADIOLOGY RADIOLOGY [facility] Radiology Study observation (narrative) [facility] Portable XR Chest ViewsOrder ed By: Irasema Arreola on 01-22-2022 [facility] Work Phone: URINALYSISon 01-22-2022 Appearance (U) Clear Normal Clear [facility] Comment on above: Order Comment: Use r [...] gloves. Performed By: #### L [email or web address] #### [facility] (DEFAULT) [address] [place] [address] Bacteria ABSENT Normal ABSENT [facility] Comment on above: Order Comment: Use r [...] Performed By: #### L ABSARS1 #### [facility] (DEFAULT) [address] [place] [address] Blood Urine Moderate Abnormal Negative [facility] Comment on above: Order Comment: Use r [...] Performed By: #### L ABSARS1 #### [facility] (DEFAULT) [address] [place] [address] Color (U) Yellow Normal Yellow [facility] Comment on above: Order Comment: Use r [...] Performed By: #### L ABSARS1 #### [facility] (DEFAULT) [address] [place] [address] Glucose Ql (U) Negative Normal Negative [facility] Comment on above: Order Comment: Use r [...] Performed By: #### L ABSARS1 #### [facility] (DEFAULT) [address] [place] [address] Ketones Ql (U) Negative Normal Negative [facility] Comment on above: Order Comment: Use r [...] Performed By: #### L ABSARS1 #### [facility] (DEFAULT) [address] [place] [address]83 Leukocyte esterase Test strip Ql (U) Trace Abnormal Negative [facility] Comment on above: Order Comment: Use r [...] Performed By: #### L ABSARS1 #### [facility] (DEFAULT) [address] [place] [address] 42879 Nitrites Urine Negative Normal Negative [facility] Comment on above: Order Comment: Use r [...] Performed By: #### L ABSARS1 #### [facility] (DEFAULT) [address] [place] [address] pH (U) 7.5 [pH] Abnormal 5.0-7.0 [facility] Comment on above: Order Comment: Use r [...] Performed By: #### L [email or web address] #### [facility] (DEFAULT) [address] [address] Protein Urine Negative Normal Negative [facility] Comment on above: Order Comment: Use r [...] Performed By: #### L [email or web address] #### [facility] (DEFAULT) [address] [place] [address] RBC Urine 10-20 Abnormal 0-2 [facility] Comment on above: Order Comment: Use r [...] Performed By: #### L [email or web address] #### [facility] (DEFAULT) [address] [place] [address] Specific Bessie Urine 1.015 Normal 1.001-1.035 [facility] Comment on above: Order Comment: Use r [...] gloves. Performed By: #### L ABSARS1 #### [facility] (DEFAULT) [address] [address] Squamous/Epithelial Cells 2-5/hpf = 2+ Normal 1/hpf = 1+, 2-5/hpf = 2+, 0/hpf = 0+, ABSENT [facility] Comment on above: Order Comment: Use r [...] Performed By: #### L ABSARS1 #### [facility] (DEFAULT) [address] [address] Urobilinogen Urine 0.2 E.U./dL Normal 0.2 E.U/d L, 1.0 E.U/dL [facility] Comment on above: Order Comment: Use r [...] Performed By: #### L ABSARS1 #### [facility] (DEFAULT) [address] [address] WBC Urine 0-5 Normal 0-5 [facility] Comment on above: Order Comment: Use r [...] gloves. Performed By: #### L ABSARS1 #### [facility] (DEFAULT) [address] [address] Appearance (U) Clear Clear [facility] Bacteria LM Ql (Urine sed) ABSENT ABSENT [facility] Color (U) Yellow Yellow [facility] Epithelial cells.squamous LM Ql (Urine sed) 2-5/hpf = 2+ 1/hpf = 1+, 2-5/hpf = 2+, 0/hpf = 0+, ABSENT [facility] Glucose Test strip (U) [Mass/Vol] Negative Negative [facility] Interpretation and review of laboratory results [facility] Ketones (U) [Mass/Vol] Negative Negative [facility] Leukocyte esterase Test strip Ql (U) Trace Abnormal Negative [facility] Nitrite Ql (U) Negative Negative [facility] pH (U) 7.5 [pH] Abnormal 5.0 - 7.0 [facility] Protein (U) [Mass/Vol] Negative Negative [facility] RBC (U) [#/Vol] Moderate Abnormal Negative [facility] RBC LM.HPF (Urine sed) [#/Area] 10-20 Abnormal [facility] Specific gravity (U) [Rel density] 1.015 1.001 - 1.035 [facility] Urobilinogen (U) [Mass/Vol] 0.2 E.U./dL 0.2 E.U/dL, 1.0 E.U/dL [facility] WBC LM.HPF (Urine sed) [#/Area] 0-5 [facility] XR CHEST PORTABLEon 01-23-20 XR CHEST [...] stable. IMPRESSION: No definite acute process. Normal [facility] CBC,PLATELETSon 01-21-2022 Hematocrit (Bld) [Volume fraction] 35.3 % Normal 34.9-44.3 [facility] Comment on above: Performed By: #### M GO, CHM7, IPB, LIPDR, HFP #### [facility] (DEFAULT) [address] [place] [address] Hemoglobin (Bld) [Mass/Vol] 11.6 g/dL Normal 11.4-15.2 [facility] Comment on above: Performed By: #### M GO, CHM7, IPB, LIPDR, HFP #### [facility] (DEFAULT) [address] [place] [address] MCV (RBC) [Entitic vol] 92.9 fL Normal 79.6-97.7 [facility] Comment on above: Performed By: #### M GO, CHM7, IPB, LIPDR, HFP #### [facility] (DEFAULT) [address] [place] [address] Mean Cell Hgb 30.5 pg Normal 25.9-33.9 [facility] Comment on above: Performed By: #### M GO, CHM7, IPB, LIPDR, HFP #### [facility] (DEFAULT) [address] [place] [address] 199[address] Mean Cell Hgb Conc 32.9 g/dL Normal 31.4-35.9 [facility] Comment on above: Performed By: #### M GO, CHM7, IPB, LIPDR, HFP #### [facility] (DEFAULT) [address] [place] [address] Platelet mean volume (Bld) [Entitic vol] 10.3 fL Normal 8.5-12.2 [facility] Comment on above: Performed By: #### M GO, CHM7, IPB, LIPDR, HFP #### [facility] (DEFAULT) [address] [place] [address] Platelets (Bld) [#/Vol] 233 10*3/uL Normal 150-393 [facility] Comment on above: Performed By: #### M GO, CHM7, IPB, LIPDR, HFP #### [facility] (DEFAULT) [address] [place] [address] 218[address] RBC (Bld) [#/Vol] 3.80 10*6/uL Low 3.91-5.04 [facility] Comment on above: Performed By: #### M GO, CHM7, IPB, LIPDR, HFP #### [facility] (DEFAULT) [address] [place] [address] 8[address] RBC Distribution 13.9 % Normal 10.8-14.9 [facility] Comment on above: Performed By: #### M GO, CHM7, IPB, LIPDR, HFP #### [facility] (DEFAULT) [address] [place] [address] WBC (Bld) [#/Vol] 11.79 10*3/uL High 3.99-11.19 [facility] Comment on above: Performed By: #### M GO, CHM7, IPB, LIPDR, HFP #### [facility] (DEFAULT) [address] [place] [address] Erythrocyte distribution width (RBC) [Ratio] 13.9 % 10.8 - 14.9 % [facility] Hematocrit (Bld) [Volume fraction] 35.3 % 34.9 - 44.3 % [facility] Hemoglobin (Bld) [Mass/Vol] 11.6 g/dL 11.4 - 15.2 g/dL [facility] Interpretation and review of laboratory results Abnormal [facility] MCH (RBC) [Entitic mass] 30.5 pg 25.9 - 33.9 pg [facility] MCHC (RBC) [Mass/Vol] 32.9 g/dL 31.4 - 35.9 g/dL [facility] MCV (RBC) [Entitic vol] 92.9 fL 79.6 - 97.7 fL [facility] Platelet mean volume (Bld) [Entitic vol] 10.3 fL 8.5 - 12.2 fL [facility] Platelets (Bld) [#/Vol] 233 10*3/uL 150 - 393 K/uL [facility] RBC (Bld) [#/Vol] 3.80 10*6/uL Low [facility] WBC (Bld) [#/Vol] 11.79 10*3/uL High 3.99 - 11 .19 K/uL [facility] CHEM 7 (LYTES,BUN,CREA,GLUC) on 01-21-2022 Anion gap [Moles/Vol] 15 mmol/L Normal 7-17 [facility] Comment on above: Performed By: #### M JOSE RAMON, CHM7, IPB, LIPDR, HFP #### [facility] (DEFAULT) [address] [place] [address] Chloride [Moles/Vol] 107 mmol/L Normal 98-108 [facility] Comment on above: Performed By: #### M JOSE RAMON CHM7, IPB, LIPDR, HFP #### [facility] (DEFAULT) [address] [place] [address] CO2 [Moles/Vol] 23 mmol/L Normal 21-31 [facility] Comment on above: Performed By: #### M GO, CHM7, IPB, LIPDR, HFP #### [facility] (DEFAULT) [address] [place] [address] Creatinine [Mass/Vol] 0.92 mg/dL Normal 0.50-1.20 [facility] Comment on above: Performed By: #### M GO, CHM7, IPB, LIPDR, HFP #### [facility] (DEFAULT) [address] [place] [address] GFR/1.73 sq M.predicted among non-blacks MDRD (S/P/Bld) [Vol rate/Area] 63 mL/min/{1.73_m2} Normal >=60 [facility] Comment on above: Result Comment: Repo rted eGFR is based on the CKD-EPI 2020 equation using creatinine, age, and sex. Performed By: #### M GO, CHM7, IPB, LIPDR, HFP #### [facility] (DEFAULT) [address] [place] [address] Glucose [Mass/Vol] 110 mg/dL High 70-99 [facility] Comment on above: Performed By: #### M GO, CHM7, IPB, LIPDR, HFP #### [facility] (DEFAULT) [address] [place] [address] Osmolality [Osmolality] 297 mosm/kg Normal 278-305 [facility] Comment on above: Performed By: #### M GO, CHM7, IPB, LIPDR, HFP #### [facility] (DEFAULT) [address] [place] [address] Potassium [Moles/Vol] 3.9 mmol/L Normal 3.5-5.0 [facility] Comment on above: Performed By: #### M GO, CHM7, IPB, LIPDR, HFP #### [facility] (DEFAULT) [address] [place] [address]17 Sodium [Moles/Vol] 141 mmol/L Normal 135-145 [facility] Comment on above: Performed By: #### M GO, CHM7, IPB, LIPDR, HFP #### [facility] (DEFAULT) [address] [place] [address] 267[address] Urea nitrogen [Mass/Vol] 17 mg/dL Normal 7-25 [facility] Comment on above: Performed By: #### M GO, CHM7, IPB, LIPDR, HFP #### [facility] (DEFAULT) [address] [place] [address] Urea nitrogen/Creatinine [Mass ratio] 18 mg/mg Normal [facility] Comment on above: Performed By: #### M GO, CHM7, IPB, LIPDR, HFP #### [facility] (DEFAULT) [address] [place] [address] Anion gap [Moles/Vol] 15 mmol/L 7 - 17 mmol/L [facility] Chloride [Moles/Vol] 107 mmol/L 98 - 10 8 mmol/L [facility] CO2 [Moles/Vol] 23 mmol/L 21 - 31 mmol/L [facility] Creatinine [Mass/Vol] 0.92 mg/dL 0.50 - 1.20 mg/dL [facility] GFR/1.73 sq M.predicted CKD-EPI (S/P/Bld) [Vol rate/Area] 63 - PINF [facility] Glucose [Mass/Vol] 110 mg/dL High 70 - 99 mg/dL [facility] Interpretation and review of laboratory results Abnormal [facility] Osmolality Calc [Osmolality] 297 [facility] Potassium [Moles/Vol] 3.9 mmol/L 3.5 - 5.0 mmol/L [facility] Sodium [Moles/Vol] 141 mmol/L 135 - 145 mmol/L [facility] Urea nitrogen [Mass/Vol] 17 mg/dL 7 - 25 mg/dL [facility] Urea nitrogen/Creatinine [Mass ratio] 18 mg/mg [facility] CONTINUOUS CARDIAC MONITORIN G STRIPOrdered By: Unassigned Pacs on 01-21-2022 [facility] Work Phone: CT HEAD WITHOUT CONTRASTon 1 [...] frontal sulci, new compared to prior. Normal [facility] CT Head WO contraston 2021 RADIOLOGY RADIOLOGY [facility] HIGH SENSITIVITY TROPONIN I - SINGLE ORDERon 01-21-2022 hs-Troponin I 2025 ng/L High <34 [facility] Comment on above: Order Comment: Acute Coronary Syndrome (ACS): Initial Evaluation and Management:[email or web address] Result Comment: [place]to estive of myocardial injury Performed By: #### [facility] #### [facility] (DEFAULT) [address] [place] [address] hs-Troponin I 2363 ng/L High <34 [facility] Comment on above: Order Comment: Acute Coronary Syndrome (ACS): Initial Evaluation and Management:[email or web address]%[email or web address] Result Comment: Loreto alvarezive of myocardial injury Performed By: #### [facility] #### [facility] (DEFAULT) [address] [place] [address] HIGH SENSITIVITY TROPONIN I - SINGLE ORDEROrdered By: Gary Philip on 01-21-2022 Interpretation and review of laboratory results Abnormal [facility] Troponin I.cardiac DL <= 0.01 ng/mL [Mass/Vol] 2025 ng/L High NINF - 34 ng/L [facility] HIGH SENSITIVITY TROPONIN I - SINGLE ORDEROrdered By: Juan Francisco Conley on 01-21-2022 Interpretation and review of laboratory results Abnormal [facility] Troponin I.cardiac DL <= 0.01 ng/mL [Mass/Vol] 2363 ng/L High NINF - 34 ng/L [facility] IONIZED CALCIUM, WHOLE BLOOD on 01-21-2022 ICA 4.49 mg/dL Low 4.60-5.30 [facility] Comment on above: Performed By: #### M ESME ALBRIGHTM7, IPB, LIPDR, HFP #### [facility] (DEFAULT) [address] [place], [place] [address] IONIZED CALCIUM, WHOLE BLOOD Ordered By: Mello Irizarry on 01-21-2022 Calcium.ionized (Bld) [Moles/Vol] 4.49 mg/dL Low 4.60 - 5.30 mg/dL [facility] Interpretation and review of laboratory results Abnormal [facility] MAGNESIUMon 01-21-2022 Magnesium [Mass/Vol] 2.1 mg/dL Normal 1.6-2.6 [facility] Comment on above: Performed By: #### M ESME ALBRIGHTM7, IPB, LIPDR, HFP #### [facility] (DEFAULT) [address] [place] [address] Magnesium [Mass/Vol] 2.1 mg/dL 1.6 - 2 .6 mg/dL [facility] No Panel Informationon 01-21 [facility] Interpretation and review of laboratory results Normal [facility] PHOSPHATE, INORGANICon 01-21 Phosphorous 3.6 mg/dL Normal 2.2-4.6 [facility] Comment on above: Performed By: #### M GO, CHM7, IPB, LIPDR, HFP #### [facility] (DEFAULT) [address] [place] [address] 90071 Phosphate [Mass/Vol] 3.6 mg/dL 2.2 - 4 .6 mg/dL [facility] CBC,PLATELETSon 01-20-2022 Hematocrit (Bld) [Volume fraction] 35.4 % Normal 34.9-44.3 [facility] Comment on above: Performed By: #### L ABSARS1 #### [facility] (DEFAULT) [address] [place] [address] 19546 Hemoglobin (Bld) [Mass/Vol] 11.5 g/dL Normal 11.4-15.2 [facility] Comment on above: Performed By: #### L ABSARS1 #### [facility] (DEFAULT) [address] [place] [address] 52998 MCV (RBC) [Entitic vol] 94.7 fL Normal 79.6-97.7 [facility] Comment on above: Performed By: #### L ABSARS1 #### [facility] (DEFAULT) [address] [place] [address] 31138 Mean Cell Hgb 30.7 pg Normal 25.9-33.9 [facility] Comment on above: Performed By: #### L ABSARS1 #### [facility] (DEFAULT) [address] [place] [address] 82021 Mean Cell Hgb Conc 32.5 g/dL Normal 31.4-35.9 [facility] Comment on above: Performed By: #### L ABSARS1 #### [facility] (DEFAULT) [address] [place] [address] 33682 Platelet mean volume (Bld) [Entitic vol] 10.4 fL Normal 8.5-12.2 [facility] Comment on above: Performed By: #### L ABSARS1 #### [facility] (DEFAULT) [address] [place] [address] 33695 Platelets (Bld) [#/Vol] 245 10*3/uL Normal 150-393 [facility] Comment on above: Performed By: #### L ABSARS1 #### [facility] (DEFAULT) [address] [place] [address] 21919 RBC (Bld) [#/Vol] 3.74 10*6/uL Low 3.91-5.04 [facility] Comment on above: Performed By: #### L ABSARS1 #### [facility] (DEFAULT) [address] [place] [address] 72745 RBC Distribution 13.4 % Normal 10.8-14.9 [facility] Comment on above: Performed By: #### L ABSARS1 #### [facility] (DEFAULT) [address] [place] [address] 99847 WBC (Bld) [#/Vol] 8.70 10*3/uL Normal 3.99-11.19 [facility] Comment on above: Performed By: #### L ABSARS1 #### [facility] (DEFAULT) [address] [place] [address] 96636 Erythrocyte distribution width (RBC) [Ratio] 13.4 % 10.8 - 14.9 % [facility] Hematocrit (Bld) [Volume fraction] 35.4 % 34.9 - 44.3 % [facility] Hemoglobin (Bld) [Mass/Vol] 11.5 g/dL 11.4 - 15.2 g/dL [facility] Interpretation and review of laboratory results Abnormal [facility] MCH (RBC) [Entitic mass] 30.7 pg 25.9 - 33.9 pg [facility] MCHC (RBC) [Mass/Vol] 32.5 g/dL 31.4 - 35.9 g/dL [facility] MCV (RBC) [Entitic vol] 94.7 fL 79.6 - 97.7 fL [facility] Platelet mean volume (Bld) [Entitic vol] 10.4 fL 8.5 - 12.2 fL [facility] Platelets (Bld) [#/Vol] 245 10*3/uL 150 - 393 K/uL [facility] RBC (Bld) [#/Vol] 3.74 10*6/uL Low [facility] WBC (Bld) [#/Vol] 8.70 10*3/uL 3.99 - 11. 19 K/uL [facility] CHEM 7 (LYTES,BUN,CREA,GLUC) on 01-20-2022 Anion gap [Moles/Vol] 15 mmol/L Normal 7-17 [facility] Comment on above: Performed By: #### M JOSE RAMON CHM7, IPB, LIPDR, HFP #### [facility] (DEFAULT) [address] [place] [address] 50392 Chloride [Moles/Vol] 110 mmol/L High 98-108 [facility] Comment on above: Performed By: #### M JOSE RAMON CHM7, IPB, LIPDR, HFP #### [facility] (DEFAULT) [address] [place] [address] CO2 [Moles/Vol] 22 mmol/L Normal 21-31 [facility] Comment on above: Performed By: #### M JOSE RAMON CHM7, IPB, LIPDR, HFP #### [facility] (DEFAULT) [address] [place] [address] 50920 Creatinine [Mass/Vol] 0.79 mg/dL Normal 0.50-1.20 [facility] Comment on above: Performed By: #### M GO, CHM7, IPB, LIPDR, HFP #### [facility] (DEFAULT) [address] [place] [address] 17187 GFR/1.73 sq M.predicted among non-blacks MDRD (S/P/Bld) [Vol rate/Area] 76 mL/min/{1.73_m2} Normal >=60 [facility] Comment on above: Result Comment: Repo rted eGFR is based on the CKD-EPI 2020 equation using creatinine, age, and sex. Performed By: #### M GO, CHM7, IPB, LIPDR, HFP #### [facility] (DEFAULT) [address] [place] [address] 24819 Glucose [Mass/Vol] 108 mg/dL High 70-99 [facility] Comment on above: Performed By: #### M GO, CHM7, IPB, LIPDR, HFP #### [facility] (DEFAULT) [address] [place] [address] 17165 Osmolality [Osmolality] 299 mosm/kg Normal 278-305 [facility] Comment on above: Performed By: #### M GO, CHM7, IPB, LIPDR, HFP #### [facility] (DEFAULT) [address] [place] [address] 82690 Potassium [Moles/Vol] 4.5 mmol/L Normal 3.5-5.0 [facility] Comment on above: Result Comment: Slig htly hemolyzed Performed By: #### M GO, CHM7, IPB, LIPDR, HFP #### [facility] (DEFAULT) [address] [place] [address] 26799 Sodium [Moles/Vol] 142 mmol/L Normal 135-145 [facility] Comment on above: Performed By: #### M GO, CHM7, IPB, LIPDR, HFP #### [facility] (DEFAULT) [address] [place] [address] 06149 Urea nitrogen [Mass/Vol] 15 mg/dL Normal 7-25 [facility] Comment on above: Performed By: #### M JOSE RAMON, CHM7, IPB, LIPDR, HFP #### [facility] (DEFAULT) [address] [place] [address] Urea nitrogen/Creatinine [Mass ratio] 19 mg/mg Normal [facility] Comment on above: Performed By: #### M JOSE RAMON, CHM7, IPB, LIPDR, HFP #### [facility] (DEFAULT) [address] [place] [address] Anion gap [Moles/Vol] 15 mmol/L 7 - 17 mmol/L [facility] Chloride [Moles/Vol] 110 mmol/L High 98 - 10 8 [facility] CO2 [Moles/Vol] 22 mmol/L 21 - 31 mmol/L [facility] Creatinine [Mass/Vol] 0.79 mg/dL 0.50 - 1.20 mg/dL [facility] GFR/1.73 sq M.predicted CKD-EPI (S/P/Bld) [Vol rate/Area] 76 - PINF [facility] Glucose [Mass/Vol] 108 mg/dL High 70 - 99 mg/dL [facility] Interpretation and review of laboratory results Abnormal [facility] Osmolality Calc [Osmolality] 299 [facility] Potassium [Moles/Vol] 4.5 mmol/L 3.5 - 5.0 mmol/L [facility] Sodium [Moles/Vol] 142 mmol/L 135 - 145 mmol/L [facility] Urea nitrogen [Mass/Vol] 15 mg/dL 7 - 25 mg/dL [facility] Urea nitrogen/Creatinine [Mass ratio] 19 mg/mg [facility] CT Head WO contraston 2021 Radiology Study observation (narrative) [facility] GLUCOSE POCon 01-20-2022 Glucose [Mass/Vol] 137 mg/dL High 70 - 99 mg/dL [facility] Interpretation and review of laboratory results Abnormal [facility] POC Sample Type CAPBL [facility] Glucose [Mass/Vol] 105 mg/dL High 70 - 99 mg/dL [facility] Interpretation and review of laboratory results Abnormal [facility] POC Sample Type CAPBL [facility] Glucose [Mass/Vol] 105 mg/dL High 70 - 99 mg/dL [facility] Interpretation and review of laboratory results Abnormal [facility] POC Sample Type CAPBL [facility] Glucose [Mass/Vol] 116 mg/dL High 70 - 99 mg/dL [facility] Interpretation and review of laboratory results Abnormal [facility] [id number] By: Quang Grayson on 01-20-2022 Average glucose Estimated from glycated hemoglobin (Bld) [Mass/Vol] 114 mg/dL [facility] HbA1c (Bld) [Mass fraction] 5.6 % 4.7 - 5.6 % [facility] HEMOGLOBIN A1Con 01-20-2022 Glucose [Mass/Vol] 114 mg/dL Normal [facility] Comment on above: Performed By: #### [facility] #### [facility] (DEFAULT) [address] [address] HbA1c (Bld) [Mass fraction] 5.6 % Normal 4.7-5.6 [facility] Comment on above: Performed By: #### [facility] #### [facility] (DEFAULT) [address] [place] [id number] HEPATIC FUNCTION PANELon Albumin [Mass/Vol] 3.4 g/dL Low 3.5-5.0 [facility] Comment on above: Performed By: #### M GO, CHM7, IPB, LIPDR, HFP #### [facility] (DEFAULT) [address] [place] [address] 36048 ALP [Catalytic activity/Vol] 61 U/L Normal 32-126 [facility] Comment on above: Performed By: #### M GO, CHM7, IPB, LIPDR, HFP #### [facility] (DEFAULT) [address] [place] [address]70 ALT [Catalytic activity/Vol] 21 U/L Normal 9-48 [facility] Comment on above: Result Comment: Slig htly hemolyzed Performed By: #### M GO, CHM7, IPB, LIPDR, HFP #### [facility] (DEFAULT) [address] [place] [address] 38375 AST [Catalytic activity/Vol] 52 U/L High 10-39 [facility] Comment on above: Result Comment: Slig htly hemolyzed Performed By: #### M GO, CHM7, IPB, LIPDR, HFP #### [facility] (DEFAULT) [address] [place] [address]14 Bilirubin [Mass/Vol] 0.8 mg/dL Normal <1.5 [facility] Comment on above: Result Comment: Slig htly hemolyzed Performed By: #### M GO, CHM7, IPB, LIPDR, HFP #### [facility] (DEFAULT) [address] [place] [address] Bilirubin.indirect [Mass/Vol] 0.1 mg/dL Normal <0.3 [facility] Comment on above: Result Comment: Slig htly hemolyzed Performed By: #### M GO, CHM7, IPB, LIPDR, HFP #### [facility] (DEFAULT) [address] [place] [address] 11258 Protein [Mass/Vol] 6.4 g/dL Normal 6.4-8.3 [facility] Comment on above: Performed By: #### M GO, CHM7, IPB, LIPDR, HFP #### [facility] (DEFAULT) [address] [place] [address] HEPATIC FUNCTION PANELOrdere d By: Gomez Nicolas on 01-20-2022 Albumin [Mass/Vol] 3.4 g/dL Low 3.5 - 5.0 g/dL [facility] ALP [Catalytic activity/Vol] 61 U/L 32 - 126 U/L [facility] ALT [Catalytic activity/Vol] 21 U/L 9 - 48 U/L [facility] AST [Catalytic activity/Vol] 52 U/L High 10 - 39 U/L [facility] Bilirubin [Mass/Vol] 0.8 mg/dL NINF - 1.5 mg/dL [facility] Bilirubin.direct [Mass/Vol] 0.1 mg/dL NINF - 0.3 mg/dL [facility] Interpretation and review of laboratory results Abnormal [facility] Protein [Mass/Vol] 6.4 g/dL 6.4 - 8.3 g/dL [facility] HIGH SENSITIVITY TROPONIN I - SINGLE ORDERon 01-20-2022 hs-Troponin I 2616 ng/L High <34 [facility] Comment on above: Order Comment: Acute Coronary Syndrome (ACS): Initial Evaluation and Management: [email or web address] [email or web address]#search=troponin Result Comment: Sugg estive of myocardial injury Performed By: #### L ABHSTI1 #### [facility] (DEFAULT) [address] [place] [address] hs-Troponin I 3590 ng/L Critically high <34 [facility] Comment on above: Order Comment: Acute Coronary Syndrome (ACS): Initial Evaluation and Management:[email or web address] delines/Acute%20Coronary%20Syndrome.pdf#search=troponin Result Comment: Sugg estive of myocardial injury Performed By: #### M GO, CHM7, IPB, LIPDR, HFP #### [facility] (DEFAULT) [address] [place] [address] hs-Troponin I 3124 ng/L Critically high <34 [facility] Comment on above: Order Comment: Acute Coronary Syndrome (ACS): Initial Evaluation and Management:[email or web address] delines/Acute%20Coronary%[email or web address]#search=troponin Result Comment: Sugg estive of myocardial injury Critical value previously called. Performed By: #### H EMO #### [facility] (DEFAULT) [address] [place] [address] Interpretation and review of laboratory results Abnormal [facility] Troponin I.cardiac DL <= 0.01 ng/mL [Mass/Vol] 3124 ng/L Critically high NINF - 34 ng/L [facility] hs-Troponin I 3015 ng/L Critically high <34 [facility] Comment on above: Order Comment: Acute Coronary Syndrome (ACS): Initial Evaluation and Management:[email or web address] delines/Acute%20Coronary%[email or web address]#search=troponin Result Comment: Sugg estive of myocardial injury Critical value previously called. Performed By: #### H EMO #### [facility] (DEFAULT) [address] [place] [address] HIGH SENSITIVITY TROPONIN I - SINGLE ORDEROrdered By: Mandi Ruth on 01-20-2022 Interpretation and review of laboratory results Abnormal [facility] Troponin I.cardiac DL <= 0.01 ng/mL [Mass/Vol] 2616 ng/L High NINF - 34 ng/L [facility] HIGH SENSITIVITY TROPONIN I - SINGLE ORDEROrdered By: Uriel Easley on 01-20-2022 Interpretation and review of laboratory results Abnormal [facility] Troponin I.cardiac DL <= 0.01 ng/mL [Mass/Vol] 3590 ng/L Critically high NINF - 34 ng/L [facility] HIGH SENSITIVITY TROPONIN I - SINGLE ORDEROrdered By: Beverly Marshall on 01-20-2022 Interpretation and review of laboratory results Abnormal [facility] Troponin I.cardiac DL <= 0.01 ng/mL [Mass/Vol] 3015 ng/L Critically high NINF - 34 ng/L [facility] IONIZED CALCIUM, WHOLE BLOOD on 01-20-2022 ICA 4.16 mg/dL Low 4.60-5.30 [facility] Comment on above: Performed By: #### [facility] #### [facility] (DEFAULT) [address] [place] [address] IONIZED CALCIUM, WHOLE BLOOD Ordered By: Carlos Santos on 01-20-2022 Calcium.ionized (Bld) [Moles/Vol] 4.16 mg/dL Low 4.60 - 5.30 mg/dL [facility] Interpretation and review of laboratory results Abnormal [facility] LIPID PANEL WITH REFLEX TO Sesar MOMIN LDLon 01-20-2022 Calculated LDL Cholesterol 90 mg/dL Normal 0-99 [facility] Comment on above: Result Comment: [<10 0 mg/dL: Optimal] [100-129 mg/dL: Near Optimal] [130-159 mg/dL: Borderline High] [160-189 mg/dL: High] [>189 mg/dL: Very High] Performed By: #### M JOSE RAMON, CHM7, IPB, LIPDR, HFP #### [facility] (DEFAULT) [address] [place] [address] Cholesterol [Mass/Vol] 171 mg/dL Normal <200 [facility] Comment on above: Result Comment: [<20 0 mg/dL: Desirable] [200-239 mg/dL: Borderline High] [>239 mg/dL: High] Performed By: #### M GO, CHM7, IPB, LIPDR, HFP #### [facility] (DEFAULT) [address] [place] [address] Cholesterol in HDL [Mass/Vol] 54 mg/dL Normal >=40 [facility] [place] Comment on above: Result Comment: [<40 mg/dL: Low (High Risk)] [>59 mg/dL: High (Low Risk)] Performed By: #### M GO, CHM7, IPB, LIPDR, HFP #### [facility] (DEFAULT) [address] [place] [address]32 Non HDL Cholesterol 117 mg/dL Normal <130 [facility] [place] Comment on above: Performed By: #### M GO, CHM7, IPB, LIPDR, HFP #### [facility] (DEFAULT) [address] [place] [address]74 Total Cholesterol/HDL Ratio 3.2 Normal <4.5 [facility] [place] Comment on above: Performed By: #### M GO, CHM7, IPB, LIPDR, HFP #### [facility] (DEFAULT) [address] [place] [address] Triglyceride [Mass/Vol] 134 mg/dL Normal <150 [facility] Comment on above: Result Comment: [<15 0 mg/dL: Desirable] [150-199 mg/dL: Borderline] [200-499 mg/dL: High] [>500 mg/dL: Very High] Performed By: #### M GO, CHM7, IPB, LIPDR, HFP #### [facility] (DEFAULT) [address] [place] [address] Cholesterol [Mass/Vol] 171 mg/dL NINF - 200 mg/dL [facility] Cholesterol in HDL [Mass/Vol] 54 mg/dL 40 - PINF mg/dL [facility] Cholesterol in HDL [Mass/Vol] 117 mg/dL NINF - 130 mg/dL [facility] Cholesterol in LDL [Mass/Vol] 90 mg/dL 0 - 99 mg/dL [facility] Cholesterol.total/Lisa sterol in HDL [Mass ratio] 3.2 {ratio} NINF - 4.5 [facility] Triglyceride [Mass/Vol] 134 mg/dL NINF - 150 mg/dL [facility] MAGNESIUMon 01-20-2022 Magnesium [Mass/Vol] 2.1 mg/dL Normal 1.6-2.6 [facility] Comment on above: Result Comment: Slig htly hemolyzed Performed By: #### M GO, CHM7, IPB, LIPDR, HFP #### [facility] (DEFAULT) [address] [place] [address] Magnesium [Mass/Vol] 2.1 mg/dL 1.6 - 2 .6 mg/dL [facility] MR Brain WO contraston 01-20 RADIOLOGY RADIOLOGY [facility]narrative[facility] WO contrastOrdered By: Priya Job on 01-20-2022 [facility] Work Phone: MRI BRAIN WITHOUT CONTRASTon 01-20-2022 [...] 2022. No significant leftward midline shift. Normal [facility] MRI PLAIN FILM FOR NEURO EXA 01-20-2022 [...] pneumoperitoneum. IMPRESSION: No radiopaque foreign body. Normal [facility] RADIOLOGY RADIOLOGY [facility] Radiology Study observation (narrative) [facility] MRI PLAIN FILM FOR NEURO EXA MOrdered By: Jovan Jacobo on 01-20-2022 [facility] No Panel Informationon 01-20 [facility] Interpretation and review of laboratory results Normal [facility] PHOSPHATE, INORGANICon 01-20 Phosphorous 3.8 mg/dL Normal 2.2-4.6 [facility] [place] Comment on above: Result Comment: Slig htly hemolyzed Performed By: #### M GO, CHM7, IPB, LIPDR, HFP #### [facility] (DEFAULT) [address] [place] [address] Phosphate [Mass/Vol] 3.8 mg/dL 2.2 - 4 .6 mg/dL [facility] Portable XR Chest Viewson RADIOLOGY RADIOLOGY [facility] Radiology Study observation (narrative) [facility] Portable XR Chest ViewsOrder ed By: Arnaud Mensah on 01-20-2022 [facility] Work Phone: SCREEN: MRSA/MSSAOrdered By: Beverly Prieto on 01-20-2022 Interpretation and review of laboratory results Normal [facility] Methicillin Resistant S. Aureus By Pcr Negative Negative [facility] Staphylococcus Aureus By Pcr Negative Negative [facility] SCREEN: MRSA/MSSAon 01-21-20 22 Methicillin Resistant S. Aureus By Pcr Negative Normal Negative [facility] Comment on above: Order Comment: Use r [...] gloves. Performed By: #### L ABSARS1 #### [facility] (DEFAULT) [address] [address] Staphylococcus Aureus By Pcr Negative Normal Negative [facility] [place] Comment on above: Order Comment: Use r [...] gloves. Performed By: #### L ABSARS1 #### [facility] (DEFAULT) [address] [place] [address]59 VON WILLEBRAND FACTOR AGon 1 03-22-2021 Von Willebrand Factor Antigen 373 % High 50-180 [facility] Comment on above: Performed By: #### V WFAG #### [facility] (DEFAULT) [address] [place] [address] 14033 XR CHEST PORTABLEon 01-21-20 22 XR CHEST [...] basilar volume loss; otherwise clear lungs. Normal [facility] Absolute lymphocyte counton 01-19-2022 Lymphocytes Auto (Unsp spec) [#/Vol] 1.08 10*3/uL 0.83-4.51 [facility] Work Phone: [phone] Basophil percentageon 2021 Basophils/100 WBC (Bld) 0.3 % 0-1 [facility] Work Phone: [phone] Chloride [Moles/Vol] 106 mmol/L 98-107 [facility] Work Phone: [phone] Eosinophils/100 WBC (Bld) 0.2 % 0-5 [facility] Work Phone: [phone] Glucose [Mass/Vol] 126 mg/dL 74-106 [facility] Work Phone: [phone] Comment on above: Fasting Glucose resu lt greater than or equal to 126 mg/dL suggests DIABETES MELLITUS per A.D.A. criteria. Neutrophils (Bld) [#/Vol] 10.2 10*3/uL 2.0-7.7 [facility] Work Phone: [phone] Neutrophils/100 WBC (Bld) 86.9 % 47-70 [facility] Work Phone: [phone] Potassium [Moles/Vol] 4.1 mmol/L 3.5-5.1 [facility] Work Phone: [phone] Sodium [Moles/Vol] 141 mmol/L 136-145 [facility] Work Phone: WBC (Bld) [#/Vol] 11.7 10*3/uL 4.4-11.0 [facility] Work Phone: Blood erythrocytes count (nu mber/volume)on 01-19-2022 RBC (Bld) [#/Vol] 4.16 10*6/uL 4.2-5.4 [facility] Work Phone: Blood hemoglobin measurement (mass/volume)on 01-19-2022 Hemoglobin (Bld) [Mass/Vol] 12.7 g/dL 12.0-15.0 [facility] Work Phone: Blood lymphocytes/100 leukoc yteson 01-19-2022 Lymphocytes/100 WBC (Bld) 9.3 % 19-41 [facility] Work Phone: Blood monocytes/100 leukocyt eson 01-19-2022 Monocytes/100 WBC (Bld) 2.9 % 0-10 [facility] Work Phone: Blood platelet mean volumeon 01-19-2022 Platelet mean volume (Bld) [Entitic vol] 10.5 fL 6.2-12.0 [facility] Work Phone: CBC AND ELECTRONIC DIFFon Abs Baso Auto < Normal 0.00-0.15 [facility] Comment on above: Performed By: #### M JOSE RAMON, CHM7, IPB, LIPDR, HFP #### [facility] (DEFAULT) [address] [place] [address] 61067 Abs Eos Auto < Normal 0.00-0.42 [facility] Comment on above: Performed By: #### M JOSE RAMON, CHM7, IPB, LIPDR, HFP #### [facility] (DEFAULT) [address] [place] [address]502 Basophils/100 WBC (Bld) 0.1 % Normal [facility] Comment on above: Performed By: #### M JOSE RAMON, CHM7, IPB, LIPDR, HFP #### [facility] (DEFAULT) [address] [address] DIFF STATUS Electronic Differential Normal [facility] Comment on above: Performed By: #### M GO, CHM7, IPB, LIPDR, HFP #### [facility] (DEFAULT) [address] [place] [address] 63551 Eosinophils/100 WBC (Bld) 0.1 % Normal [facility] Comment on above: Performed By: #### M GO, CHM7, IPB, LIPDR, HFP #### [facility] (DEFAULT) [address] [place] [address] 29219 Hematocrit (Bld) [Volume fraction] 41.1 % Normal 34.9-44.3 [facility] Comment on above: Performed By: #### M GO, CHM7, IPB, LIPDR, HFP #### [facility] (DEFAULT) [address] [place] [address] [phone] Hemoglobin (Bld) [Mass/Vol] 13.4 g/dL Normal 11.4-15.2 [facility] Comment on above: Performed By: #### M GO, CHM7, IPB, LIPDR, HFP #### [facility] (DEFAULT) [address] [place] [address] 33622 Immature Grans % 0.3 % Normal [facility] Comment on above: Performed By: #### M GO, CHM7, IPB, LIPDR, HFP #### [facility] (DEFAULT) [address] [place] [address] 98716 Immature Grans Absolute < Normal <=0.08 [facility] Comment on above: Performed By: #### M GO, CHM7, IPB, LIPDR, HFP #### [facility] (DEFAULT) [address] [place] [address]30 Lymphocytes (Bld) [#/Vol] 0.70 10*3/uL Low 1.16-3.51 [facility] Comment on above: Performed By: #### M GO, CHM7, IPB, LIPDR, HFP #### [facility] (DEFAULT) [address] [place] [address] 73343 Lymphocytes/100 WBC (Bld) 9.0 % Normal [facility] Comment on above: Performed By: #### M GO, CHM7, IPB, LIPDR, HFP #### [facility] (DEFAULT) [address] [place] [address] 98236 MCV (RBC) [Entitic vol] 94.7 fL Normal 79.6-97.7 [facility] Comment on above: Performed By: #### M GO, CHM7, IPB, LIPDR, HFP #### [facility] (DEFAULT) [address] [place] [address] 60483 Mean Cell Hgb 30.9 pg Normal 25.9-33.9 [facility] Comment on above: Performed By: #### M GO, CHM7, IPB, LIPDR, HFP #### [facility] (DEFAULT) [address] [place] [address] 06098 Mean Cell Hgb Conc 32.6 g/dL Normal 31.4-35.9 [facility] Comment on above: Performed By: #### M GO, CHM7, IPB, LIPDR, HFP #### [facility] (DEFAULT) [address] [place] [address] 36233 Monocytes (Bld) [#/Vol] 0.10 10*3/uL Low 0.22-0.87 [facility] Comment on above: Performed By: #### M GO, CHM7, IPB, LIPDR, HFP #### [facility] (DEFAULT) [address] [place] [address] 43617 Monocytes/100 WBC (Bld) 1.3 % Normal [facility] Comment on above: Performed By: #### M GO, CHM7, IPB, LIPDR, HFP #### [facility] (DEFAULT) [address] [place] [address] 09057 Nucleated RBC 0.0 /100 WBC Normal <=0.2 [facility] Comment on above: Performed By: #### M GO, CHM7, IPB, LIPDR, HFP #### [facility] (DEFAULT) [address] [place] [address] 15550 Platelet mean volume (Bld) [Entitic vol] 10.2 fL Normal 8.5-12.2 [facility] Comment on above: Performed By: #### M GO, CHM7, IPB, LIPDR, HFP #### [facility] (DEFAULT) [address] [place] [address] 97228 Platelets (Bld) [#/Vol] 258 10*3/uL Normal 150-393 [facility] Comment on above: Performed By: #### M GO, CHM7, IPB, LIPDR, HFP #### [facility] (DEFAULT) [address] [place] [address] 36726 RBC (Bld) [#/Vol] 4.34 10*6/uL Normal 3.91-5.04 [facility] Comment on above: Performed By: #### M GO, CHM7, IPB, LIPDR, HFP #### [facility] (DEFAULT) [address] [place] [address] 18749 RBC Distribution 13.1 % Normal 10.8-14.9 [facility] Comment on above: Performed By: #### M GO, CHM7, IPB, LIPDR, HFP #### [facility] (DEFAULT) [address] [place] [address] 20014 Segs + Bands Auto 89.2 % Normal [facility] Comment on above: Performed By: #### M GO, CHM7, IPB, LIPDR, HFP #### [facility] (DEFAULT) [address] [place] [address] 66257 Segs + Bands,Absolute Auto 6.98 K/uL Normal 1.64-7.28 [facility] Comment on above: Performed By: #### M GO, CHM7, IPB, LIPDR, HFP #### [facility] (DEFAULT) [address] [place] [address] 34334 WBC (Bld) [#/Vol] 7.82 10*3/uL Normal 3.99-11.19 [facility] Comment on above: Performed By: #### M JOSE RAMON, CHM7, IPB, LIP, HFP #### [facility] (DEFAULT) [address] [place] [address] Basophils (Bld) [#/Vol] K/uL 0.00 - 0.15 K/uL [facility] Basophils/100 WBC (Bld) 0.1 % [facility] Differential cell count method Nom (Bld) Electronic Differential [facility] Eosinophils (Bld) [#/Vol] K/uL 0.00 - 0.42 K/uL [facility] Eosinophils/100 WBC (Bld) 0.1 % [facility] Erythrocyte distribution width (RBC) [Ratio] 13.1 % 10.8 - 14.9 % [facility] Hematocrit (Bld) [Volume fraction] 41.1 % 34.9 - 44.3 % [facility] Hemoglobin (Bld) [Mass/Vol] 13.4 g/dL 11.4 - 15.2 g/dL [facility] Immature granulocytes (Bld) [#/Vol] K/uL NINF - 0.08 K/uL [facility] Immature granulocytes/100 WBC (Bld) 0.3 % [facility] Interpretation and review of laboratory results Abnormal [facility] Lymphocytes (Bld) [#/Vol] 0.70 10*3/uL Low 1.16 - 3.51 K/uL [facility] Lymphocytes/100 WBC (Bld) 9.0 % [facility] MCH (RBC) [Entitic mass] 30.9 pg 25.9 - 33.9 pg [facility] MCHC (RBC) [Mass/Vol] 32.6 g/dL 31.4 - 35.9 g/dL [facility] MCV (RBC) [Entitic vol] 94.7 fL 79.6 - 97.7 fL [facility] Monocytes (Bld) [#/Vol] 0.10 10*3/uL Low 0.22 - 0.87 K/uL [facility] Monocytes/100 WBC (Bld) 1.3 % [facility] Neutrophils (Bld) [#/Vol] 6.98 10*3/uL 1.64 - 7.28 K/uL [facility] Nucleated RBC/100 WBC (Bld) [Ratio] 0.0 % NINF [facility] Platelet mean volume (Bld) [Entitic vol] 10.2 fL 8.5 - 12.2 fL [facility] Platelets (Bld) [#/Vol] 258 10*3/uL 150 - 393 K/uL [facility] RBC (Bld) [#/Vol] 4.34 10*6/uL [facility] Segmented neutrophils/100 WBC (Bld) 89.2 % [facility] WBC (Bld) [#/Vol] 7.82 10*3/uL 3.99 - 11. 19 K/uL [facility] CHM 7 - EDon 01-19-2022 Anion gap [Moles/Vol] 13 mmol/L Normal 7-17 [facility] Comment on above: Performed By: #### M GO, CHM7, IPB, LIPDR, HFP #### [facility] (DEFAULT) [address] [place] [address] 65068 Chloride [Moles/Vol] 104 mmol/L Normal 98-108 [facility] Comment on above: Performed By: #### M GO, CHM7, IPB, LIPDR, HFP #### [facility] (DEFAULT) [address] [place] [address] CO2 [Moles/Vol] 24 mmol/L Normal 21-31 [facility] Comment on above: Performed By: #### M GO, CHM7, IPB, LIPDR, HFP #### [facility] (DEFAULT) [address] [place] [address] 59762 Creatinine [Mass/Vol] 0.78 mg/dL Normal 0.50-1.20 [facility] Comment on above: Performed By: #### M JOSE RAMON, CHM7, IPB, LIPDR, HFP #### [facility] (DEFAULT) [address] [place] [address] 65173 GFR/1.73 sq M.predicted among non-blacks MDRD (S/P/Bld) [Vol rate/Area] 77 mL/min/{1.73_m2} Normal >=60 [facility] Comment on above: Result Comment: Repo rted eGFR is based on the CKD-EPI 2020 equation using creatinine, age, and sex. Performed By: #### Sesar GO, CHM7, IPB, LIPDR, HFP #### [facility] (DEFAULT) [address] [place] [address] 93800 Glucose [Mass/Vol] 118 mg/dL High 70-99 [facility] Comment on above: Performed By: #### Sesar ALBRIGHT, CHM7, IPB, LIPDR, HFP #### [facility] (DEFAULT) [address] [place] [address] 22923 Osmolality [Osmolality] 290 mosm/kg Normal 278-305 [facility] Comment on above: Performed By: #### M GO, CHM7, IPB, LIPDR, HFP #### [facility] (DEFAULT) [address] [place] [address] 34550 Potassium [Moles/Vol] 4.1 mmol/L Normal 3.5-5.0 [facility] Comment on above: Performed By: #### Sesar GO, CHM7, IPB, LIPDR, HFP #### [facility] (DEFAULT) [address] [place] [address] 63790 Sodium [Moles/Vol] 137 mmol/L Normal 135-145 [facility] Comment on above: Performed By: #### Sesar GO, CHM7, IPB, LIPDR, HFP #### [facility] (DEFAULT) [address] [place] [address] 57680 Urea nitrogen [Mass/Vol] 18 mg/dL Normal 7-25 [facility] Comment on above: Performed By: #### M FARHAN ALBRIGHT, CAIT, QUIN, HFP #### [facility] (DEFAULT) [address] [place] [address] Urea nitrogen/Creatinine [Mass ratio] 23 mg/mg Normal [facility] Comment on above: Performed By: #### M FARHAN ALBRIGHT, CAIT, QUIN, HFP #### [facility] (DEFAULT) [address] [place] [address] Anion gap [Moles/Vol] 13 mmol/L 7 - 17 mmol/L [facility] Chloride [Moles/Vol] 104 mmol/L 98 - 10 8 mmol/L [facility] CO2 [Moles/Vol] 24 mmol/L 21 - 31 mmol/L [facility] Creatinine [Mass/Vol] 0.78 mg/dL 0.50 - 1.20 mg/dL [facility] GFR/1.73 sq M.predicted CKD-EPI (S/P/Bld) [Vol rate/Area] 77 - PINF [facility] Glucose [Mass/Vol] 118 mg/dL High 70 - 99 mg/dL [facility] Osmolality Calc [Osmolality] 290 [facility] Potassium [Moles/Vol] 4.1 mmol/L 3.5 - 5.0 mmol/L [facility] Sodium [Moles/Vol] 137 mmol/L 135 - 145 mmol/L [facility] Urea nitrogen [Mass/Vol] 18 mg/dL 7 - 25 mg/dL [facility] Urea nitrogen/Creatinine [Mass ratio] 23 mg/mg [facility] CT CEREBRAL PERFUSION ANALYS Richardson 01-19-2022 [...] have reviewed and approved this report. Normal [facility] RADIOLOGY RADIOLOGY [facility] Rad[facility]narrative[facility]22 RADIOLOGY RADIOLOGY [facility] Radiology Study observation (narrative) [facility] CT Head limitedOrdered By: Varsha Lopez on 01-19-2022 [facility] Work Phone: CT STROKE HEAD-STROKE ALERT ONLYon [...] have reviewed and approved this report. Normal [facility] Determination of erythrocyte mean corpuscular volume (MCV)on 01-19-2022 MCV (RBC) [Entitic vol] 94.0 fL 81-99 [facility] Work Phone: GLUCOSE POCon 01-19-2022 Glucose [Mass/Vol] 124 mg/dL High 70 - 99 mg/dL [facility] Interpretation and review of laboratory results Abnormal [facility] POC Sample Type CAPBL [facility] Glucose [Mass/Vol] 139 mg/dL High 70 - 99 mg/dL [facility] Interpretation and review of laboratory results Abnormal [facility] POC Sample Type CAPBL [facility] Glucose Glucometer (BldC) [M ass/Vol]on 01-19-2022 Glucose [Mass/Vol] 122 mg/dL 74-106 [facility] Work Phone: Comment on above: MANAGEMENT OF PATIEN T CARE PER NURSING PROTOCOL HEPATIC FUNCTION PANELon Albumin [Mass/Vol] 4.1 g/dL Normal 3.5-5.0 [facility] Comment on above: Performed By: #### M GO, CHM7, IPB, LIPDR, HFP #### [facility] (DEFAULT) [address] [place] [address] 91883 ALP [Catalytic activity/Vol] 79 U/L Normal 32-126 [facility] Comment on above: Performed By: #### M GO, CHM7, IPB, LIPDR, HFP #### [facility] (DEFAULT) [address] [place] [address] 84986 ALT [Catalytic activity/Vol] 26 U/L Normal 9-48 [facility] Comment on above: Performed By: #### M GO, CHM7, IPB, LIPDR, HFP #### [facility] (DEFAULT) [address] [place] [address] 85658 AST [Catalytic activity/Vol] 49 U/L High 10-39 [facility] Comment on above: Performed By: #### M GO, CHM7, IPB, LIPDR, HFP #### [facility] (DEFAULT) [address] [place] [address] 65720 Bilirubin [Mass/Vol] 1.0 mg/dL Normal <1.5 [facility] Comment on above: Performed By: #### M GO, CHM7, IPB, LIPDR, HFP #### [facility] (DEFAULT) [address] [place] [address] 21846 Bilirubin.indirect [Mass/Vol] 0.1 mg/dL Normal <0.3 [facility] Comment on above: Performed By: #### M GO, CHM7, IPB, LIPDR, HFP #### [facility] (DEFAULT) [address] [place] [address] 18076 Protein [Mass/Vol] 7.5 g/dL Normal 6.4-8.3 [facility] Comment on above: Performed By: #### M GO, CHM7, IPB, LIPDR, HFP #### [facility] (DEFAULT) [address] [place] [address] 69061 Albumin [Mass/Vol] 4.1 g/dL 3.5 - 5.0 g/dL [facility] ALP [Catalytic activity/Vol] 79 U/L 32 - 126 U/L [facility] ALT [Catalytic activity/Vol] 26 U/L 9 - 48 U/L [facility] AST [Catalytic activity/Vol] 49 U/L High 10 - 39 U/L [facility] Bilirubin [Mass/Vol] 1.0 mg/dL NINF - 1.5 mg/dL [facility] Bilirubin.direct [Mass/Vol] 0.1 mg/dL NINF - 0.3 mg/dL [facility] Protein [Mass/Vol] 7.5 g/dL 6.4 - 8.3 g/dL [facility] HIGH SENSITIVITY TROPONIN I - SINGLE ORDERon 01-19-2022 hs-Troponin I 3002 ng/L Critically high <34 [facility] Comment on above: Order Comment: Acute Coronary Syndrome (ACS): Initial Evaluation and Management:[email or web address] Result Comment: Sugg estive of myocardial injury Performed By: #### M GO, CHM7, IPB, LIPDR, HFP #### [facility] (DEFAULT) [address] [place] [address] HIGH SENSITIVITY TROPONIN I - SINGLE ORDEROrdered By: Nick May on 01-19-2022 Interpretation and review of laboratory results Abnormal [facility] Troponin I.cardiac DL <= 0.01 ng/mL [Mass/Vol] 3002 ng/L Critically high NINF - 34 ng/L [facility] Hematocrit Auto (Bld) [Volum e fraction]on 01-19-2022 Hematocrit (Bld) [Volume fraction] 39.1 % 37-47 [facility] Work Phone: INR in Blood by Coagulation assayon 01-19-2022 INR Coag (Bld) [Relative time] 1.0 {INR} [facility] Work Phone: Laboratory - Chemistry and C hemistry - challengeon 01-19-2022 CO2 [Moles/Vol] 29.0 mmol/L 21.0-32.0 [facility] Work Phone: Urea nitrogen/Creatinine [Mass ratio] 22.6 mg/mg 12-29 [facility] Work Phone: Laboratory - Coagulationon 1 03-21-2021 aPTT Coag (Bld) [Time] 24.6 s 24.1-36.2 Wo christopher [facility] Work Phone: PT Coag (PPP) [Time] 13.1 s 11.7-14.9 os [facility] Work Phone: Laboratory - Hematology and Cell countson 01-19-2022 Erythrocyte distribution width (RBC) [Entitic vol] 45.2 fL 35.1-43.9 [facility] Work Phone: Erythrocyte distribution width (RBC) [Ratio] 13.2 % 11.6-14.6 [facility] Work Phone: Immature granulocytes/100 WBC (Bld) 0.400 % 0.0-0.9 [facility] Work Phone: Comment on above: IG% - Immature Granu locytes (promyelocytes, myelocytes and metamyelocytes) > 1% indicates that a LEFT SHIFT is Present. MCH (RBC) [Entitic mass] 30.5 pg 27.0-32.0 [facility] Work Phone: Nucleated RBC/100 WBC (Bld) [Ratio] 0 % 0-5 [facility] Work Phone: MAGNESIUMon 01-19-2022 Magnesium [Mass/Vol] 2.1 mg/dL Normal 1.6-2.6 [facility] Comment on above: Performed By: #### M GO, CHM7, IPB, LIPDR, HFP #### [facility] (DEFAULT) [address] [place] [address] Interpretation and review of laboratory results Normal [facility] Magnesium [Mass/Vol] 2.1 mg/dL 1.6 - 2 .6 mg/dL [facility] MCHC Auto (RBC) [Mass/Vol]on 01-19-2022 MCHC (RBC) [Mass/Vol] 32.5 g/dL 32-36 [facility] Work Phone: No Panel Informationon 01-19 Interpretation and review of laboratory results Abnormal [facility] Estimated Creatinine Clearance Calc 42.95 ml/min [facility] Work Phone: Estimated GFR (MDRD) Amer 84 mL/min >60 [facility] Work Phone: Comment on above: GFR Calc Estimated GFR (MDRD) Non-Af Amer 69 mL/min >60 [facility] Work Phone: Comment on above: Non- GFR Calc Troponin I High Sensitivity 3399 pg/mL 3.0-54.0 [facility] Work Phone: Comment on above: Critical Result(s) C alled at: 14:30:52 01/19/2022 by: marine to Neli ashby. Results read back by same. Please Note: New Test Units and Gender Specific Reference Ranges. For more information see Policy Stat Procedure [place] High Sensitivity Troponin (TNIH) and attachments. PTINR-STROKEon 01-19-2022 INR Coag (PPP) [Relative time] 1.0 {INR} Normal 0.9-1.1 [facility] Comment on above: Performed By: #### M ESME ALBRIGHTM7, IPB, LIPDR, HFP #### [facility] (DEFAULT) [address] [place] [address] 30000 PT Coag (PPP) [Time] 13.3 s Normal 11.9-14.2 [facility] Comment on above: Performed By: #### M ESME ALBRIGHTM7, IPB, LIPDR, HFP #### [facility] (DEFAULT) [address] [place] [address] 48382 INR Coag (Bld) [Relative time] 1.0 {INR} 0.9 - 1.1 [facility] Interpretation and review of laboratory results Normal [facility] PT Coag (PPP) [Time] 13.3 s [facility] PTTon 01-19-2022 aPTT Coag (Bld) [Time] 23.6 s Low 24.0-34.3 [facility] Comment on above: Performed By: #### M GO, CHM7, IPB, LIPDR, HFP #### [facility] (DEFAULT) [address] [place] [address] PTTOrdered By: Uriel Arteaga er on 01-19-2022 aPTT Coag (PPP) [Time] 23.6 s Low OS [facility] Interpretation and review of laboratory results Abnormal [facility] Platelets bldon 01-19-2022 Platelets (Bld) [#/Vol] 285 10*3/uL 150-450 [facility] Work Phone: Serum or plasma calcium jasmin urement (mass/volume)on 01-19-2022 Calcium [Mass/Vol] 9.5 mg/dL 8.5-10.1 [facility] Work Phone: Serum or plasma creatinine m easurement (mass/volume)on 01-19-2022 Creatinine [Mass/Vol] 0.84 mg/dL 0.55-1.02 [facility] Work Phone: Comment on above: The validity of the calculated GFR & GFRAA in patients over 70 years has not been determined. Clinical correlation is essential. Serum or plasma urea nitroge n measurement (mass/volume)on 01-19-2022 Urea nitrogen [Mass/Vol] 19 mg/dL 7-18 [facility] Work Phone: TOXICOLOGY SCREEN URINE - UD RGOrdered By: Jose D Foster on 01-19-2022 Barbiturates Ql (U) Negative [facility] Cannabinoids Screen Ql (U) Negative [facility] Drugs identified Screen Nom (U) Negative Negative [facility] Interpretation and review of laboratory results Normal [facility] TOXICOLOGY SCREEN URINE - UD RGon 01-19-2022 Barbiturates Negative Normal Cutoff: 200 ng/mL [facility] Comment on above: Order Comment: For M edical Purposes Only. Nonforensic screen results are considered presumptive and no confirmatory testing will follow. Drugs are detected by immunoassay or Liquid Chromatography Mass Spectrometry (LC-MS/MS). The LC-MS/MS test was developed and its performance characteristics determined by the Toxicology Laboratory at The [facility]. It has not been cleared or approved [...] (200), Alphahydrozyalprazolam(200), Alprazolam(50), Amitriptyline(50), Amphetamine(250), Atenolol(500),Benzoylecgonine(50), Buprenorphine(100), Bupropion(25),Caffeine(67093),Chlordiazepoxide(50), Chlorpheniramine(100), Chlorpromazine(50), Citalopram(100), Clonazepam(200), Cocaine(25),Codeine(200), Cotinine(500),Desipramine(50), Desmethyldoxepin(100), Dextromethorphan(100), Diazepam(100), Dihydrocodeine(100), Diltazem(50), Diphenhydramine(100),Doxepin(100),EDDP/methadone(100), Ephedrine/Pseudoephedrine(100),Fentanyl(25),Flunitrazepam(100) ,Fluoxetine(200), Flurazepam(50),Gabapentin(1500), Haloperidol(25), Hydrocodone(100), Hydromorphone(200), Imipramine(50), Ketamine(25), Lidocaine(25),Lorazepam(100), Lysergide(LSD)(25),Maprotiline(200), MDA(250), MDMA(250), Meperidine(50),Midazolam (200),Methadone(50), Methamphetamine(500), Methylphenidate(50), Metoprolol(50), Morphine(200),Nalbuphine(50), Naloxone(200), Norbuprenorphine(300), Nordiazepam(100), Norfentanyl(50),Noroxycodone (100), Norpropoxyphene(50), Nortriptyline(50), Olanzapine(200),Oxazepam(200),Oxycodone(100),Oxymorphone(200), Phencyclidine(PCP)(25), Pheniramine(25), Pregabalin(1500), Promethazine(50), Propoxyphene(100), Propanolol(50), Quetiapine(25), Quinidine(500), Ranitidine(500), Risperidone(100), Sertraline(50),Temazepam(100), Thioridazine(100), Tramadol(50), Trazodone(25), Triazolam(100), Trifluoperazine (100),Venlafaxine(50), Verapamil(100), Zolpidem(200) Performed By: #### L [id number], [id number] #### [facility] (DEFAULT) [address] [place] [address] Cannabinoids Screen Ql (U) Negative Normal Cutoff: 50 ng/mL [facility] Comment on above: Order Comment: For M edical Purposes Only. Nonforensic screen results are considered presumptive and no confirmatory testing will follow. Drugs are detected by immunoassay or Liquid Chromatography Mass Spectrometry (LC-MS/MS). The LC-MS/MS test was developed and its performance characteristics determined by the Toxicology Laboratory at [facility]. It has not been cleared or approved [...] (200), Alphahydrozyalprazolam(200), Alprazolam(50), Amitriptyline(50), Amphetamine(250), Atenolol(500),Benzoylecgonine(50), Buprenorphine(100), Bupropion(25),Caffeine(08529),Chlordiazepoxide(50), Chlorpheniramine(100), Chlorpromazine(50), Citalopram(100), Clonazepam(200), Cocaine(25),Codeine(200), Cotinine(500),Desipramine(50), Desmethyldoxepin(100), Dextromethorphan(100), Diazepam(100), Dihydrocodeine(100), Diltazem(50), Diphenhydramine(100),Doxepin(100),EDDP/methadone(100), Ephedrine/Pseudoephedrine(100),Fentanyl(25),Flunitrazepam(100) ,Fluoxetine(200), Flurazepam(50),Gabapentin(1500), Haloperidol(25), Hydrocodone(100), Hydromorphone(200), Imipramine(50), Ketamine(25), Lidocaine(25),Lorazepam(100), Lysergide(LSD)(25),Maprotiline(200), MDA(250), MDMA(250), Meperidine(50),Midazolam (200),Methadone(50), Methamphetamine(500), Methylphenidate(50), Metoprolol(50), Morphine(200),Nalbuphine(50), Naloxone(200), Norbuprenorphine(300), Nordiazepam(100), Norfentanyl(50),Noroxycodone (100), Norpropoxyphene(50), Nortriptyline(50), Olanzapine(200),Oxazepam(200),Oxycodone(100),Oxymorphone(200), Phencyclidine(PCP)(25), Pheniramine(25), Pregabalin(1500), Promethazine(50), Propoxyphene(100), Propanolol(50), Quetiapine(25), Quinidine(500), Ranitidine(500), Risperidone(100), Sertraline(50),Temazepam(100), Thioridazine(100), Tramadol(50), Trazodone(25), Triazolam(100), Trifluoperazine (100),Venlafaxine(50), Verapamil(100), Zolpidem(200) Performed By: #### L [id number], [id number] #### [facility] (DEFAULT) [address] [place] [address] Drugs Detected Urine Tox Negative Normal Negative [facility] Comment on above: Order Comment: For M edical Purposes Only. Nonforensic screen results are considered presumptive and no confirmatory testing will follow. Drugs are detected by immunoassay or Liquid Chromatography Mass Spectrometry (LC-MS/MS). The LC-MS/MS test was developed and its performance characteristics determined by the Toxicology Laboratory at The [facility]. It has not been cleared or approved [...] (200), Alphahydrozyalprazolam(200), Alprazolam(50), Amitriptyline(50), Amphetamine(250), Atenolol(500),Benzoylecgonine(50), Buprenorphine(100), Bupropion(25),Caffeine(77320),Chlordiazepoxide(50), Chlorpheniramine(100), Chlorpromazine(50), Citalopram(100), Clonazepam(200), Cocaine(25),Codeine(200), Cotinine(500),Desipramine(50), Desmethyldoxepin(100), Dextromethorphan(100), Diazepam(100), Dihydrocodeine(100), Diltazem(50), Diphenhydramine(100),Doxepin(100),EDDP/methadone(100), Ephedrine/Pseudoephedrine(100),Fentanyl(25),Flunitrazepam(100) ,Fluoxetine(200), Flurazepam(50),Gabapentin(1500), Haloperidol(25), Hydrocodone(100), Hydromorphone(200), Imipramine(50), Ketamine(25), Lidocaine(25),Lorazepam(100), Lysergide(LSD)(25),Maprotiline(200), MDA(250), MDMA(250), Meperidine(50),Midazolam (200),Methadone(50), Methamphetamine(500), Methylphenidate(50), Metoprolol(50), Morphine(200),Nalbuphine(50), Naloxone(200), Norbuprenorphine(300), Nordiazepam(100), Norfentanyl(50),Noroxycodone (100), Norpropoxyphene(50), Nortriptyline(50), Olanzapine(200),Oxazepam(200),Oxycodone(100),Oxymorphone(200), Phencyclidine(PCP)(25), Pheniramine(25), Pregabalin(1500), Promethazine(50), Propoxyphene(100), Propanolol(50), Quetiapine(25), Quinidine(500), Ranitidine(500), Risperidone(100), Sertraline(50),Temazepam(100), Thioridazine(100), Tramadol(50), Trazodone(25), Triazolam(100), Trifluoperazine (100),Venlafaxine(50), Verapamil(100), Zolpidem(200) Performed By: #### L [id number], [id number] #### [facility] ([facility]) [address] [place] [address] Thin prep Papanicolaou smear with manual screeningon 01-19-2022 Thin prep Papanicolaou smear with manual screening 6 5-15 [facility] Work Phone: URINE DIPSTICK; REFLEX MICRO SCOPY; REFLEX CULTURE PERFORMABLEon 01-19-2022 Appearance (U) Clear Normal Clear [facility] Comment on above: Performed By: #### L [id number], [id number] #### [facility] (DEFAULT) [address] [place] [address] 46794 Blood Urine Small Abnormal Negative [facility] Comment on above: Performed By: #### L [id number], [id number] #### [facility] (DEFAULT) [address] [place] [address] 11551 Color (U) Yellow Normal Yellow [facility] Comment on above: Performed By: #### L [id number], [id number] #### [facility] (DEFAULT) [address] [place] [address] 42043 Glucose Ql (U) Negative Normal Negative [facility] Comment on above: Performed By: #### L [id number], [id number] #### [facility] (DEFAULT) [address] [place] [address] 62702 Ketones Ql (U) Negative Normal Negative [facility] Comment on above: Performed By: #### L [id number], [id number] #### [facility] (DEFAULT) [address] [place] [address] 44778 Leukocyte esterase Test strip Ql (U) Negative Normal Negative [facility] Comment on above: Performed By: #### L [id number], [id number] #### [facility] (DEFAULT) [address] [place] [address] 58594 Nitrites Urine Negative Normal Negative [facility] Comment on above: Performed By: #### L [id number], [id number] #### [facility] (DEFAULT) [address] [address] pH (U) 7.5 [pH] Abnormal 5.0-7.0 [facility] Comment on above: Performed By: #### L [id number], [id number] #### [facility] (DEFAULT) [address] [place] [address] 19458 Protein Urine Negative Normal Negative [facility] Comment on above: Performed By: #### L [id number], [id number] #### [facility] (DEFAULT) [address] [place] [address] 28910 Specific Bessie Urine 1.010 Normal >1.00 1-<1.03 5 [facility] Comment on above: Performed By: #### L [id number], [id number] #### [facility] (DEFAULT) [address] [place] [address] 25591 Urobilinogen Urine 0.2 E.U./dL Normal 0.2 E.U/d L, 1.0 E.U/dL [facility] Comment on above: Performed By: #### L [id number], [id number] #### [facility] (DEFAULT) [address] [place] [address] 62028 Appearance (U) Clear Clear [facility] Color (U) Yellow Yellow [facility] Glucose Test strip (U) [Mass/Vol] Negative Negative [facility] Interpretation and review of laboratory results Abnormal [facility] Ketones (U) [Mass/Vol] Negative Negative OS [facility] Leukocyte esterase Test strip Ql (U) Negative Negative [facility] Nitrite Ql (U) [facility] pH (U) 7.5 [pH] Abnormal 5.0 - 7.0 [facility] Protein (U) [Mass/Vol] Negative Negative [facility] RBC (U) [#/Vol] Small Abnormal Negative [facility] Specific gravity (U) [Rel density] 1.010 1.001 - PINF [facility] Urobilinogen (U) [Mass/Vol] 0.2 E.U./dL 0.2 E.U/dL, 1.0 E.U/dL [facility] URINE MICROSCOPIC WITH REFLE X TO CULTUREon 01-19-2022 Bacteria ABSENT Normal ABSENT [facility] [place] Comment on above: Performed By: #### M GO, CHM7, IPB, LIPDR, HFP #### [facility] (DEFAULT) [address] [place] [id number] RBC Urine 0-2 Normal 0-2 [facility] [place] Comment on above: Performed By: #### M GO, CHM7, IPB, LIPDR, HFP #### [facility] (DEFAULT) [address] [place] [phone] Squamous/Epithelial Cells ABSENT Normal 1/hpf = 1+, 2-5/hpf = 2+, 0/hpf = 0+, ABSENT [facility] [place] Comment on above: Performed By: #### M GO, CHM7, IPB, LIPDR, HFP #### [facility] (DEFAULT) [address] [place] [id number] WBC Urine 0-5 Normal 0-5 [facility] [place] Comment on above: Performed By: #### M GO, CHM7, IPB, LIPDR, HFP #### [facility] (DEFAULT) [address] [place] [id number] Bacteria LM Ql (Urine sed) ABSENT ABSENT [facility] Epithelial cells.squamous LM Ql (Urine sed) ABSENT 1/hpf = 1+, 2-5/hpf = 2+, 0/hpf = 0+, ABSENT [facility] Interpretation and review of laboratory results Normal [facility] RBC LM.HPF (Urine sed) [#/Area] 0-2 [facility] WBC LM.HPF (Urine sed) [#/Area] 0-5 [facility] Basophil percentageon 2021 Bilirubin [Mass/Vol] 0.80 mg/dL 0.20-1.00 [facility] Work Phone: Comment on above: For patients on eltr ombopag therapy, use of Dimension [place] TBIL is not recommended. Chloride [Moles/Vol] 108 mmol/L 98-107 [facility] Work Phone: Cholesterol [Mass/Vol] 188 mg/dL <200 [facility] Work Phone: Comment on above: <200 mg/dL Desirable 200-240 mg/dL Borderline >240 mg/dL High Risk Glucose [Mass/Vol] 106 mg/dL 74-106 [facility] Work Phone: Comment on above: Fasting Glucose resu lt from 100 to 125 mg/dL suggests IMPAIRED HOMEOSTASIS per A.D.A. criteria. Potassium [Moles/Vol] 3.8 mmol/L 3.5-5.1 [facility] Work Phone: Protein [Mass/Vol] 7.6 g/dL 6.4-8.2 [facility] Work Phone: Sodium [Moles/Vol] 142 mmol/L 136-145 [facility] Work Phone: Triglyceride [Mass/Vol] 98 mg/dL <199 [facility] Work Phone: Comment on above: The drugs N-Acetylcy steine and Metamizole may falsely depress this assay.Serum Triglycerides Reference Interval Normal <150 mg/dL Borderline high 150 - 199 mg/dL High 200 - 499 mg/dL Very High > or = 500 mg/dL Laboratory - Chemistry and C hemistry - challengeon 12-30-2021 ALP [Catalytic activity/Vol] 80 U/L 45-117 [facility] Work Phone: ALT [Catalytic activity/Vol] 30 U/L 13-56 [facility] Work Phone: CO2 [Moles/Vol] 27.0 mmol/L 21.0-32.0 [facility] Work Phone: Globulin (S) [Mass/Vol] 3.9 g/dL 2.2-4.2 [facility] Work Phone: Urea nitrogen/Creatinine [Mass ratio] 25.4 mg/mg 12-29 [facility] Work Phone: No Panel Informationon 12-30 Estimated GFR (MDRD) Amer 81 mL/min >60 [facility] Work Phone: Comment on above: GFR Calc Estimated GFR (MDRD) Non-Af Amer 67 mL/min >60 [facility] Work Phone: Comment on above: Non- GFR Calc Parathyroid Hormone (Intact) 85.8 pg/mL 18.4-80.1 [facility] Work Phone: Thyroid Stimulating Hormone (TSH) 0.80 uIU/mL 0.358-3.74 [facility] Work Phone: Vitamin D 25-Hydroxy 46.9 ng/mL [facility] Work Phone: Comment on above: Vitamin D 25(OH) Sta tus Range Deficiency <20 ng/mL (50nmol/L) Insufficiency 20 - 30 ng/mL (50 - 75 nmol/L) Sufficiency 30 - 100 ng/mL (75 - 250 nmol/L) Toxicity >100 ng/mL (>250 nmol/L) Serum or plasma albumin jasmin urement (mass/volume)on 12-30-2021 Albumin [Mass/Vol] 3.7 g/dL 3.2-5.0 [facility] Work Phone: Serum or plasma albumin/glob ulin mass ratioon 12-30-2021 Albumin/Globulin [Mass ratio] 0.9 {ratio} 0.9-2.4 [facility] Work Phone: Serum or plasma calcium jasmin urement (mass/volume)on 12-30-2021 Calcium [Mass/Vol] 9.3 mg/dL 8.5-10.1 [facility] Work Phone: Serum or plasma cholesterol in HDL measurement (mass/volume)on 12-30-2021 Cholesterol in HDL [Mass/Vol] 69 mg/dL >40 [facility] Work Phone: Comment on above: The drugs N-Acetylcy steine and Metamizole may falsely depress this assay. Reference Range HDL <40 mg/dL Low HDL Cholesterol HDL >or= 60 mg/dL High HDL Cholesterol Serum or plasma cholesterol in VLDL measurement (mass/volume)on 12-30-2021 Cholesterol in VLDL [Mass/Vol] 20 mg/dL 5-40 [facility] Work Phone: Serum or plasma creatinine m easurement (mass/volume)on 12-30-2021 Creatinine [Mass/Vol] 0.86 mg/dL 0.55-1.02 [facility] Work Phone: Comment on above: The validity of the calculated GFR & GFRAA in patients over 70 years has not been determined. Clinical correlation is essential. Serum or plasma low density lipoprotein (LDL) cholesterol measurement (mass/volume)on 12-30-2021 Cholesterol in LDL [Mass/Vol] 99 mg/dL 0-130 [facility] Work Phone: Serum or plasma urea nitroge n measurement (mass/volume)on 12-30-2021 Urea nitrogen [Mass/Vol] 22 mg/dL 7-18 [facility] Work Phone: Thin prep Papanicolaou smear with manual screeningon 12-30-2021 Thin prep Papanicolaou smear with manual screening 26 U/L 15-37 [facility] Work Phone: Thin prep Papanicolaou smear with manual screening 7 5-15 [facility] Work Phone: Thin prep Papanicolaou smear with manual screening 30.3 mg/L NO RANGE EST. [facility] Work Phone: Absolute lymphocyte counton 11-12-2021 Lymphocytes Auto (Unsp spec) [#/Vol] 2.04 10*3/uL 0.83-4.51 [facility] Work Phone: Basophil percentageon 2021 WBC (Bld) [#/Vol] 9.8 10*3/uL 4.4-11.0 [facility] Work Phone: Basophils/100 WBC (Bld) 0.6 % 0-1 [facility] Work Phone: Chloride [Moles/Vol] 106 mmol/L 98-107 [facility] Work Phone: [phone] Eosinophils/100 WBC (Bld) 2.5 % 0-5 [facility] Work Phone: Glucose [Mass/Vol] 100 mg/dL 74-106 [facility] Work Phone: Comment on above: Fasting Glucose resu lt from 100 to 125 mg/dL suggests IMPAIRED HOMEOSTASIS per A.D.A. criteria. Lactate [Moles/Vol] 1.2 mmol/L 0.4-2.0 [facility] Work Phone: Neutrophils (Bld) [#/Vol] 7.1 10*3/uL 2.0-7.7 [facility] Work Phone: Neutrophils/100 WBC (Bld) 67.6 % 47-70 [facility] Work Phone: Potassium [Moles/Vol] 3.6 mmol/L 3.5-5.1 [facility] Work [facility]: Sodium [Moles/Vol] 141 mmol/L 136-145 [facility] Work Phone: Blood erythrocytes count (nu mber/volume)on 11-12-2021 RBC (Bld) [#/Vol] 4.03 10*6/uL 4.2-5.4 [facility] Work Phone: Blood hemoglobin measurement (mass/volume)on 11-12-2021 Hemoglobin (Bld) [Mass/Vol] 12.4 g/dL 12.0-15.0 [facility] Work Phone: Blood lymphocytes/100 leukoc yteson 11-12-2021 Lymphocytes/100 WBC (Bld) 19.4 % 19-41 [facility] Work Phone: Blood monocytes/100 leukocyt eson 11-12-2021 Monocytes/100 WBC (Bld) 9.6 % 0-10 [facility] Work Phone: Blood platelet mean volumeon 11-12-2021 Platelet mean volume (Bld) [Entitic vol] 9.5 fL 6.2-12.0 [facility] Work Phone: Determination of erythrocyte mean corpuscular volume (MCV)on 11-12-2021 MCV (RBC) [Entitic vol] 93.8 fL 81-99 [facility] Work Phone: Hematocrit Auto (Bld) [Volum e fraction]on 11-12-2021 Hematocrit (Bld) [Volume fraction] 37.8 % 37-47 [facility] Work Phone: INR in Blood by Coagulation assayon 11-12-2021 INR Coag (Bld) [Relative time] 1.0 {INR} [facility] Work Phone: Laboratory - Chemistry and C hemistry - challengeon 11-12-2021 CO2 [Moles/Vol] 27.0 mmol/L 21.0-32.0 [facility] Work Phone: Urea nitrogen/Creatinine [Mass ratio] 23.1 mg/mg 10-20 [facility] Work Phone: Laboratory - Coagulationon 0 11-12-2021 aPTT Coag (Bld) [Time] 27.0 s 24.1-36.2 [facility] Work Phone: PT Coag (PPP) [Time] 13.2 s 11.7-14.9 [facility] Work Phone: Laboratory - Hematology and Cell countson 11-12-2021 Erythrocyte distribution width (RBC) [Entitic vol] 44.3 fL 35.1-43.9 [facility] Work Phone: Erythrocyte distribution width (RBC) [Ratio] 12.8 % 11.6-14.6 [facility] Work Phone: MCH (RBC) [Entitic mass] 30.8 pg 27.0-32.0 [facility] Work Phone: Immature granulocytes/100 WBC (Bld) 0.300 % 0.0-0.9 [facility] Work Phone: Comment on above: IG% - Immature Granu locytes (promyelocytes, myelocytes and metamyelocytes) > 1% indicates that a LEFT SHIFT is Present. Nucleated RBC/100 WBC (Bld) [Ratio] 0 % 0-5 [facility] Work Phone: MCHC Auto (RBC) [Mass/Vol]on 11-12-2021 MCHC (RBC) [Mass/Vol] 32.8 g/dL 32-36 [facility] Work Phone: No Panel Informationon 11-12 Estimated Creatinine Clearance Calc 29.21 ml/min [facility] Work Phone: Estimated GFR (MDRD) Amer 63 mL/min >60 [facility] Work Phone: Comment on above: GFR Calc Estimated GFR (MDRD) Non-Af Amer 52 mL/min >60 [facility] Work Phone: Comment on above: Non- GFR Calc Platelets bldon 11-12-2021 Platelets (Bld) [#/Vol] 359 10*3/uL 150-450 [facility] Work Phone: Serum or plasma calcium jasmin urement (mass/volume)on 11-12-2021 Calcium [Mass/Vol] 9.7 mg/dL 8.5-10.1 [facility] Work Phone: Serum or plasma creatinine m easurement (mass/volume)on 11-12-2021 Creatinine [Mass/Vol] 1.08 mg/dL 0.55-1.02 [facility] Work Phone: Comment on above: The validity of the calculated GFR & GFRAA in patients over 70 years has not been determined. Clinical correlation is essential. Serum or plasma urea nitroge n measurement (mass/volume)on 11-12-2021 Urea nitrogen [Mass/Vol] 25 mg/dL 7-18 [facility] Work Phone: Thin prep Papanicolaou smear with manual screeningon 11-12-2021 Thin prep Papanicolaou smear with manual screening 8 5-15 [facility] Work Phone: Absolute lymphocyte counton 11-07-2021 Lymphocytes Auto (Unsp spec) [#/Vol] 2.46 10*3/uL 0.83-4.51 [facility] Work Phone: Basophil percentageon 2021 Basophils/100 WBC (Bld) 0.2 % 0-1 [facility] Work Phone: Chloride [Moles/Vol] 110 mmol/L 98-107 [facility] Work Phone: Eosinophils/100 WBC (Bld) 2.7 % 0-5 [facility] Work Phone: Glucose [Mass/Vol] 92 mg/dL 74-106 [facility] Work Phone: Neutrophils (Bld) [#/Vol] 4.4 10*3/uL 2.0-7.7 [facility] Work Phone: Neutrophils/100 WBC (Bld) 55.6 % 47-70 [facility] Work Phone: Potassium [Moles/Vol] 3.7 mmol/L 3.5-5.1 [facility] Work Phone: Sodium [Moles/Vol] 143 mmol/L 136-145 [facility] Work Phone: WBC (Bld) [#/Vol] 8.0 10*3/uL 4.4-11.0 [facility] Work Phone: Blood erythrocytes count (nu mber/volume)on 11-07-2021 RBC (Bld) [#/Vol] 3.88 10*6/uL 4.2-5.4 [facility] Work Phone: Blood hemoglobin measurement (mass/volume)on 11-07-2021 Hemoglobin (Bld) [Mass/Vol] 11.8 g/dL 12.0-15.0 [facility] Work Phone: Blood lymphocytes/100 leukoc yteson 11-07-2021 Lymphocytes/100 WBC (Bld) 30.7 % 19-41 [facility] Work Phone: Blood monocytes/100 leukocyt eson 11-07-2021 Monocytes/100 WBC (Bld) 10.6 % 0-10 [facility] Work Phone: Blood platelet mean volumeon 11-07-2021 Platelet mean volume (Bld) [Entitic vol] 10.0 fL 6.2-12.0 [facility] Work Phone: Determination of erythrocyte mean corpuscular volume (MCV)on 11-07-2021 MCV (RBC) [Entitic vol] 93.6 fL 81-99 [facility] Work Phone: Hematocrit Auto (Bld) [Volum e fraction]on 11-07-2021 Hematocrit (Bld) [Volume fraction] 36.3 % 37-47 [facility] Work Phone: Laboratory - Chemistry and C hemistry - challengeon 11-07-2021 CO2 [Moles/Vol] 27.0 mmol/L 21.0-32.0 [facility] Work Phone: Urea nitrogen/Creatinine [Mass ratio] 23.2 mg/mg 10-20 [facility] Work Phone: Laboratory - Hematology and Cell countson 11-07-2021 Erythrocyte distribution width (RBC) [Entitic vol] 44.9 fL 35.1-43.9 [facility] Work Phone: Erythrocyte distribution width (RBC) [Ratio] 13.1 % 11.6-14.6 [facility] Work Phone: Immature granulocytes/100 WBC (Bld) 0.200 % 0.0-0.9 [facility] Work Phone: Comment on above: IG% - Immature Granu locytes (promyelocytes, myelocytes and metamyelocytes) > 1% indicates that a LEFT SHIFT is Present. MCH (RBC) [Entitic mass] 30.4 pg 27.0-32.0 [facility] Work Phone: Nucleated RBC/100 WBC (Bld) [Ratio] 0 % 0-5 [facility] Work Phone: MCHC Auto (RBC) [Mass/Vol]on 11-07-2021 MCHC (RBC) [Mass/Vol] 32.5 g/dL 32-36 [facility] Work Phone: No Panel Informationon 11-07 Estimated Creatinine Clearance Calc 38.02 ml/min [facility] Work Phone: Estimated GFR (MDRD) Amer 82 mL/min >60 [facility] Work Phone: Comment on above: GFR Calc Estimated GFR (MDRD) Non-Af Amer 67 mL/min >60 [facility] Work Phone: Comment on above: Non- GFR Calc Troponin I High Sensitivity 6 pg/mL 3.0-54.0 [facility] Work Phone: Comment on above: Please Note: New Pam t Units and Gender Specific Reference Ranges. For more information see Policy Stat Procedure [place] High Sensitivity Troponin (TNIH) and attachments. Platelets bldon 11-07-2021 Platelets (Bld) [#/Vol] 282 10*3/uL 150-450 [facility] Work Phone: Serum or plasma calcium jasmin urement (mass/volume)on 11-07-2021 Calcium [Mass/Vol] 8.5 mg/dL 8.5-10.1 [facility] Work Phone: Serum or plasma creatinine m easurement (mass/volume)on 11-07-2021 Creatinine [Mass/Vol] 0.86 mg/dL 0.55-1.02 [facility] Work Phone: Comment on above: The validity of the calculated GFR & GFRAA in patients over 70 years has not been determined. Clinical correlation is essential. Serum or plasma urea nitroge n measurement (mass/volume)on 11-07-2021 Urea nitrogen [Mass/Vol] 20 mg/dL 7-18 [facility] Work Phone: Thin prep Papanicolaou smear with manual screeningon 11-07-2021 Thin prep Papanicolaou smear with manual screening 6 5-15 [facility] Work Phone: Absolute lymphocyte counton 11-05-2021 Lymphocytes Auto (Unsp spec) [#/Vol] 2.98 10*3/uL 0.83-4.51 [facility] Work Phone: Basophil percentageon 2021 Basophil percentage 0 SEEN /hpf 0-5 [facility] Work Phone: Basophils/100 WBC (Bld) 0.3 % 0-1 [facility] Work Phone: Chloride [Moles/Vol] 107 mmol/L 98-107 [facility] Work Phone: Eosinophils/100 WBC (Bld) 1.0 % 0-5 [facility] Work Phone: Glucose [Mass/Vol] 187 mg/dL 74-106 [facility] Work Phone: Comment on above: Fasting Glucose resu lt greater than or equal to 126 mg/dL suggests DIABETES MELLITUS per A.D.A. criteria. Neutrophils (Bld) [#/Vol] 10.7 10*3/uL 2.0-7.7 [facility] Work Phone: Neutrophils/100 WBC (Bld) 69.9 % 47-70 [facility] Work Phone: Potassium [Moles/Vol] 3.6 mmol/L 3.5-5.1 [facility] Work Phone: Sodium [Moles/Vol] 138 mmol/L 136-145 [facility] Work Phone: WBC (Bld) [#/Vol] 15.4 10*3/uL 4.4-11.0 [facility] Work Phone: Bilirubin Test strip Ql (U)o n 11-05-2021 Bilirubin Ql (U) Negative Negative [facility] Work Phone: Blood erythrocytes count (nu mber/volume)on 11-05-2021 RBC (Bld) [#/Vol] 4.04 10*6/uL 4.2-5.4 [facility] Work Phone: Blood hemoglobin measurement (mass/volume)on 11-05-2021 Hemoglobin (Bld) [Mass/Vol] 12.4 g/dL 12.0-15.0 [facility] Work Phone: Blood lymphocytes/100 leukoc yteson 11-05-2021 Lymphocytes/100 WBC (Bld) 19.4 % 19-41 [facility] Work Phone: Blood monocytes/100 leukocyt eson 11-05-2021 Monocytes/100 WBC (Bld) 9.0 % 0-10 [facility] Work Phone: Blood platelet mean volumeon 11-05-2021 Platelet mean volume (Bld) [Entitic vol] 9.9 fL 6.2-12.0 [facility] Work Phone: Determination of erythrocyte mean corpuscular volume (MCV)on 11-05-2021 MCV (RBC) [Entitic vol] 93.3 fL 81-99 [facility] Work Phone: Hematocrit Auto (Bld) [Volum e fraction]on 11-05-2021 Hematocrit (Bld) [Volume fraction] 37.7 % 37-47 [facility] Work Phone: Ketones Test strip Ql (U)on 11-05-2021 Ketones Ql (U) Negative Negative [facility] Work Phone: Laboratory - Chemistry and C hemistry - challengeon 11-05-2021 CO2 [Moles/Vol] 23.0 mmol/L 21.0-32.0 [facility] Work Phone: Natriuretic peptide B (Bld) [Mass/Vol] 282.2 pg/mL 0-100 [facility] Work Phone: Urea nitrogen/Creatinine [Mass ratio] 18.1 mg/mg 10-20 [facility] Work Phone: Laboratory - Hematology and Cell countson 11-05-2021 Erythrocyte distribution width (RBC) [Entitic vol] 43.8 fL 35.1-43.9 [facility] Work Phone: Erythrocyte distribution width (RBC) [Ratio] 12.8 % 11.6-14.6 [facility] Work Phone: Immature granulocytes/100 WBC (Bld) 0.400 % 0.0-0.9 [facility] Work Phone: Comment on above: IG% - Immature Granu locytes (promyelocytes, myelocytes and metamyelocytes) > 1% indicates that a LEFT SHIFT is Present. MCH (RBC) [Entitic mass] 30.7 pg 27.0-32.0 [facility] Work Phone: Nucleated RBC/100 WBC (Bld) [Ratio] 0 % 0-5 [facility] Work Phone: MCHC Auto (RBC) [Mass/Vol]on 11-05-2021 MCHC (RBC) [Mass/Vol] 32.9 g/dL 32-36 [facility] Work Phone: Mucus LM Ql (Urine sed)on Mucus Ql (Urine sed) 0 SEEN /hpf [facility] Work Phone: Nitrite Test strip Ql (U)on 11-05-2021 Nitrite Ql (U) Negative Negative [facility] Work Phone: No Panel Informationon 11-05 Estimated Creatinine Clearance Calc 35.16 ml/min [facility] Work Phone: Estimated GFR (MDRD) Amer 74 mL/min >60 [facility] Work Phone: Comment on above: GFR Calc Estimated GFR (MDRD) Non-Af Amer 61 mL/min >60 [facility] Work Phone: Comment on above: Non- GFR Calc Troponin I High Sensitivity 7 pg/mL 3.0-54.0 [facility] Work Phone: Comment on above: Please Note: New Pam t Units and Gender Specific Reference Ranges. For more information see Policy Stat Procedure [place] High Sensitivity Troponin (TNIH) and attachments. Platelets bldon 11-05-2021 Platelets (Bld) [#/Vol] 260 10*3/uL 150-450 [facility] Work Phone: Protein Test strip Ql (U)on 11-05-2021 Protein Ql (U) Negative Negative [facility] Work Phone: Serum or plasma calcium jasmin urement (mass/volume)on 11-05-2021 Calcium [Mass/Vol] 9.1 mg/dL 8.5-10.1 [facility] Work Phone: Serum or plasma creatinine m easurement (mass/volume)on 11-05-2021 Creatinine [Mass/Vol] 0.94 mg/dL 0.55-1.02 [facility] Work Phone: Comment on above: The validity of the calculated GFR & GFRAA in patients over 70 years has not been determined. Clinical correlation is essential. Serum or plasma urea nitroge n measurement (mass/volume)on 11-05-2021 Urea nitrogen [Mass/Vol] 17 mg/dL 7-18 [facility] Work Phone: Squamous epithelial cells de tection in urine sediment by light microscopyon 11-05-2021 Epithelial cells.squamous LM Ql (Urine sed) 0 SEEN /hpf 5-10 [facility] Work Phone: Thin prep Papanicolaou smear with manual screeningon 11-05-2021 Thin prep Papanicolaou smear with manual screening 8 5-15 [facility] Work Phone: Urine blood detectionon 10-11 RBC Ql (U) 150 /ul Negative [facility] Work Phone: RBC Ql (U) 5-10 SEEN /hpf 0-5 [facility] Work Phone: Urine clarityon 11-05-2021 Clarity (U) Clear Clear [facility] Work Phone: Urine color determinationon 11-05-2021 Color (U) Straw Yellow [facility] Work Phone: Urine glucose detectionon Glucose Ql (U) Normal mg/dl Normal [facility] Work Phone: Urine leukocyte esterase det ection by dipstickon 11-05-2021 Leukocyte esterase Test strip Ql (U) Negative Negative [facility] Work Phone: Urine pHon 11-05-2021 pH (U) 7.0 [pH] 5.0 - 8.0 [facility] Work Phone: Urine sediment bacteria coun t by microscopy (number/high power field)on 11-05-2021 Bacteria LM.HPF (Urine sed) [#/Area] RARE /hpf None Seen [facility] Work Phone: Urine specific gravity measu rementon 11-05-2021 Specific gravity (U) [Rel density] 1.010 1.002-1.030 [facility] Work Phone: Urobilinogen Auto test strip Ql (U)on 11-05-2021 Urobilinogen Ql (U) Normal mg/dl Normal [facility] Work Phone: No Panel Informationon 08-04 Stool Pancreatic Elastase 437 >200 [facility] Work Phone: Comment on above: Result Units: ug Radha st./g Severe Pancreatic Insufficiency: <100 Moderate Pancreatic Insufficiency: 100 - 200 Normal: >200 Stool Helicobacter pylori an tigen detection by immunoassayon 08-04-2021 H. pylori Ag IA Ql (Stl) Negative Negative [facility] Work Phone: Comment on above: Performed at: - [address] [id number] Director: Lucila Quiroga MD, Phone: [phone] Absolute lymphocyte counton 08-02-2021 Lymphocytes Auto (Unsp spec) [#/Vol] 2.61 10*3/uL 0.83-4.51 [facility] Work Phone: [phone] Basophil percentageon 2021 Basophils/100 WBC (Bld) 0.4 % 0-1 [facility] Work Phone: [phone] Bilirubin [Mass/Vol] 0.60 mg/dL 0.20-1.00 [facility] Work Phone: [phone] Comment on above: For patients on eltr ombopag therapy, use of Dimension [place] TBIL is not recommended. Chloride [Moles/Vol] 108 mmol/L 98-107 [facility] Work Phone: [phone] Eosinophils/100 WBC (Bld) 2.1 % 0-5 [facility] Work Phone: [phone] Glucose [Mass/Vol] 85 mg/dL 74-106 [facility] Work Phone: [phone] Neutrophils (Bld) [#/Vol] 5.2 10*3/uL 2.0-7.7 [facility] Work Phone: [phone] Neutrophils/100 WBC (Bld) 58.1 % 47-70 [facility] Work Phone: [phone] Potassium [Moles/Vol] 4.0 mmol/L 3.5-5.1 [facility] Work Phone: [phone] Protein [Mass/Vol] 7.6 g/dL 6.4-8.2 [facility] Work Phone: [phone] Sodium [Moles/Vol] 139 mmol/L 136-145 [facility] Work Phone: WBC (Bld) [#/Vol] 8.9 10*3/uL 4.4-11.0 [facility] Work Phone: Blood erythrocytes count (nu mber/volume)on 08-02-2021 RBC (Bld) [#/Vol] 4.16 10*6/uL 4.2-5.4 [facility] Work Phone: Blood hemoglobin measurement (mass/volume)on 08-02-2021 Hemoglobin (Bld) [Mass/Vol] 12.9 g/dL 12.0-15.0 [facility] Work Phone: Blood lymphocytes/100 leukoc yteson 08-02-2021 Lymphocytes/100 WBC (Bld) 29.3 % 19-41 [facility] Work Phone: Blood monocytes/100 leukocyt eson 08-02-2021 Monocytes/100 WBC (Bld) 9.8 % 0-10 [facility] Work Phone: Blood platelet mean volumeon 08-02-2021 Platelet mean volume (Bld) [Entitic vol] 10.9 fL 6.2-12.0 [facility] Work Phone: Chocolate RASTon 08-02-2021 Chocolate IgE Qn (S) <0.10 kU/L Class 0 [facility] Work Phone: Comment on above: Performed at: - [email or web address] [id number] Director: Lucila Quiroga MD, Phone: [phone] Determination of erythrocyte mean corpuscular volume (MCV)on 08-02-2021 MCV (RBC) [Entitic vol] 96.6 fL 81-99 [facility] Work Phone: Erythrocyte sedimentation ra valentina 08-02-2021 ESR (Bld) [Velocity] 5 mm/h 0-30 [facility] Work Phone: Hematocrit Auto (Bld) [Volum e fraction]on 08-02-2021 Hematocrit (Bld) [Volume fraction] 40.2 % 37-47 [facility] Work Phone: Laboratory - Chemistry and C hemistry - challengeon 08-02-2021 ALP [Catalytic activity/Vol] 80 U/L 45-117 [facility] Work Phone: ALT [Catalytic activity/Vol] 25 U/L 13-56 [facility] Work Phone: [phone] CO2 [Moles/Vol] 26.0 mmol/L 21.0-32.0 [facility] Work Phone: Globulin (S) [Mass/Vol] 3.9 g/dL 2.2-4.2 [facility] Work Phone: [phone] Urea nitrogen/Creatinine [Mass ratio] 26.0 mg/mg 10-20 [facility] Work Phone: Laboratory - Hematology and Cell countson 08-02-2021 Erythrocyte distribution width (RBC) [Entitic vol] 47.3 fL 35.1-43.9 [facility] Work Phone: Erythrocyte distribution width (RBC) [Ratio] 13.3 % 11.6-14.6 [facility] Work Phone: Immature granulocytes/100 WBC (Bld) 0.300 % 0.0-0.9 [facility] Work Phone: Comment on above: IG% - Immature Granu locytes (promyelocytes, myelocytes and metamyelocytes) > 1% indicates that a LEFT SHIFT is Present. MCH (RBC) [Entitic mass] 31.0 pg 27.0-32.0 [facility] Work Phone: Nucleated RBC/100 WBC (Bld) [Ratio] 0 % 0-5 [facility] Work Phone: Laboratory - Miscellaneous t estson 08-02-2021 Service comment (Unsp spec) [Interp] Comment . [facility] Work Phone: Comment on above: Levels [...] 08-02-2021 MCHC (RBC) [Mass/Vol] 32.1 g/dL 32-36 [facility] Work Phone: No Panel Informationon 08-02 Endomysial IgA Antibody Negative Negative [facility] Work Phone: Estimated GFR (MDRD) Amer 79 mL/min >60 [facility] Work Phone: Comment on above: GFR Calc Estimated GFR (MDRD) Non-Af Amer 66 mL/min >60 [facility] Work Phone: Comment on above: Non- GFR Calc Seafood [employer] Allergens (RAST) Negative . [facility] Work Phone: Comment on above: Allergens in this mi x are: Blue mussel Fish [place] Shrimp Tuna Thyroid Stimulating Hormone (TSH) 0.85 uIU/mL 0.358-3.74 [facility] Work Phone: Platelets bldon 08-02-2021 Platelets (Bld) [#/Vol] 276 10*3/uL 150-450 [facility] Work Phone: Serum Helicobacter pylori Ig G antibody assay (units/volume)on 08-02-2021 H. pylori IgG Qn (S) 0.24 0.00-0.79 [facility] Work Phone: Comment on above: Result Units: Index Value Negative <0.80 Equivocal 0.80 - 0.89 Positive >0.89Performed at: [id number] [place], [place] [id number] Director: Sammy Fabian PhD, Phone: [phone] Serum IgA measurement (units /volume)on 08-02-2021 IgA Qn (S) 335 mg/dL 64-422 [facility] Work Phone: Serum beef IgE antibody assa y (units/volume)on 08-02-2021 Beef IgE Qn (S) <0.10 kU/L Class 0 [facility] Work Phone: Serum corn IgE antibody assa y (units/volume)on 08-02-2021 [place] IgE Qn (S) <0.10 kU/L Class 0 [facility] Work Phone: Serum cow milk IgE antibody assay (units/volume)on 08-02-2021 Cow milk IgE Qn (S) <0.10 kU/L Class 0 [facility] Work Phone: Serum or plasma albumin jasmin urement (mass/volume)on 08-02-2021 Albumin [Mass/Vol] 3.7 g/dL 3.2-5.0 [facility] Work Phone: Serum or plasma albumin/glob ulin mass ratioon 08-02-2021 Albumin/Globulin [Mass ratio] 0.9 {ratio} 0.9-2.4 [facility] Work Phone: Serum or plasma calcium jasmin urement (mass/volume)on 08-02-2021 Calcium [Mass/Vol] 9.6 mg/dL 8.5-10.1 [facility] Work Phone: Serum or plasma creatinine m easurement (mass/volume)on 08-02-2021 Creatinine [Mass/Vol] 0.88 mg/dL 0.55-1.02 [facility] Work Phone: Comment on above: The validity of the calculated GFR & GFRAA in patients over 70 years has not been determined. Clinical correlation is essential. Serum or plasma urea nitroge n measurement (mass/volume)on 08-02-2021 Urea nitrogen [Mass/Vol] 23 mg/dL 7-18 [facility] Work Phone: Serum peanut IgE antibody as say (units/volume)on 08-02-2021 Peanut IgE Qn (S) <0.10 kU/L Class 0 [facility] Work Phone: Serum pork IgE antibody assa y (units/volume)on 08-02-2021 Pork IgE Qn (S) <0.10 kU/L Class 0 [facility] Work Phone: Serum soybean IgE antibody a ssay (units/volume)on 08-02-2021 Soybean IgE Qn (S) <0.10 kU/L Class 0 [facility] Work Phone: Serum tissue transglutaminas e IgA antibody assay (units/volume)on 08-02-2021 tTG IgA Qn (S) <2 U/mL 0-3 [facility] Work Phone: Comment on above: Negative 0 - 3 Weak Positive 4 - 10 Positive >10 Tissue Transglutaminase (tTG) has been identified as the endomysial antigen. Studies have demonstr- ated that endomysial IgA antibodies have over 99% specificity for gluten sensitive enteropathy. Serum wheat IgE antibody ass ay (units/volume)on 08-02-2021 Wheat IgE Qn (S) <0.10 kU/L Class 0 [facility] Work Phone: Serum whole egg IgE antibody assay (units/volume)on 08-02-2021 Whole Egg IgE Qn (S) <0.10 kU/L Class 0 [facility] Work Phone: Thin prep Papanicolaou smear with manual screeningon 08-02-2021 Thin prep Papanicolaou smear with manual screening 26 U/L 15-37 [facility] Work Phone: Thin prep Papanicolaou smear with manual screening 5 5-15 [facility] Work Phone: Basophil percentageon 2021 Chloride [Moles/Vol] 107 mmol/L 98-107 [facility] Work Phone: Glucose [Mass/Vol] 108 mg/dL 74-106 [facility] Work Phone: Comment on above: Fasting Glucose resu lt from 100 to 125 mg/dL suggests IMPAIRED HOMEOSTASIS per A.D.A. criteria. Potassium [Moles/Vol] 4.1 mmol/L 3.5-5.1 [facility] Work Phone: Comment on above: Slight Hemolysis, Re sult may be falsely increased. Sodium [Moles/Vol] 140 mmol/L 136-145 [facility] Work Phone: Laboratory - Chemistry and C hemistry - challengeon 06-21-2021 CO2 [Moles/Vol] 28.0 mmol/L 21.0-32.0 [facility] Work Phone: Urea nitrogen/Creatinine [Mass ratio] 22.0 mg/mg 10-20 [facility] Work Phone: No Panel Informationon 06-21 Estimated Creatinine Clearance Calc 31.69 ml/min [facility] Work Phone: Estimated GFR (MDRD) Amer 69 mL/min >60 [facility] Work Phone: Comment on above: GFR Calc Estimated GFR (MDRD) Non-Af Amer 57 mL/min >60 [facility] Work Phone: Comment on above: Non- GFR Calc Serum or plasma calcium jasmin urement (mass/volume)on 06-21-2021 Calcium [Mass/Vol] 9.7 mg/dL 8.5-10.1 [facility] Work Phone: Serum or plasma creatinine m easurement (mass/volume)on 06-21-2021 Creatinine [Mass/Vol] 1.00 mg/dL 0.55-1.02 [facility] Work Phone: Comment on above: The validity of the calculated GFR & GFRAA in patients over 70 years has not been determined. Clinical correlation is essential. Serum or plasma urea nitroge n measurement (mass/volume)on 06-21-2021 Urea nitrogen [Mass/Vol] 22 mg/dL 7-18 [facility] Work Phone: Thin prep Papanicolaou smear with manual screeningon 06-21-2021 Thin prep Papanicolaou smear with manual screening 5 5-15 [facility] Work Phone: Basophil percentageon 2021 Basophil percentage < 0.6 mg/dL 0.55-1.02 [facility] Work Phone: No Panel Informationon 04-25 Bedside Estimated GFR (eGFR) > 60.0000 mL/min >60 [facility] Work Phone: Gram stain for investigation of transfusion reactionon 02-28-2021 Microscopic observation Gram stain Nom (Unsp spec) [facility] Work Phone: No Panel Informationon 02-28 Nasopharyngeal Culture [facility] Work Phone: COVID-19 virus antigen assay SARS-CoV-2 (COVID-19) Ag IA.rapid Ql (Resp) [facility] Work Phone: Lower GI hemoglobin IA Ql (S tl) Stool Occult Blood (YANCI) Positive [facility] Work Phone: Vital Signs Date Time Vital Sign Value Performing Clinician Faci lity 03-26-2024 13:35-0500 Body temperature 97.9 [degF] Dr. Edouard Grayson MD Work Phone: [facility] 03-26-2024 13:35-0500 Diastolic blood pressure 55 mm[Hg] Dr. Edouard Grayson MD Work Phone: [facility] 03-26-2024 13:35-0500 Heart rate 55 /min Dr. Edouard Grayson MD Work Phone: [facility] 03-26-2024 13:35-0500 Respiratory rate 18 /min Dr. Edouard Grayson MD Work Phone: 1(279)448-455974 [place] [address] 03-26-2024 13:35-0500 SaO2% (BldA) [Mass fraction] 95 % Dr. Edouard Grayson MD Work Phone: 5(102)709-308345 [place] [address] 03-26-2024 13:35-0500 Systolic blood pressure 158 mm[Hg] Dr. Edouard Grayson MD Work Phone: 9(449)075-053145 [place] [address] 03-26-2024 04:51-0500 Body mass index (BMI) [Ratio] 24 kg/m2 Dr. Edouard Grayson MD Work Phone: 7(971)959-512345 [place] [address] 03-26-2024 04:51-0500 Body weight 55.[address] Edouard Grayson MD Work Phone: 7(850)115-632245 [place] [address] 03-25-2024 08:12-0500 Inhaled oxygen flow rate 2 L/min Dr. Edouard Grayson MD Work Phone: 9(187)417-392745 [place] [address] 03-23-2024 13:16-0500 Body height 152.[address] Edouard Grayson MD Work Phone: 6(037)770-402582 [address] 01-02-2023 10:34-0400 Body temperature 98.8 [degF] Dr. Errol Shahid Work Phone: [facility] 01-02-2023 10:34-0400 Diastolic blood pressure 67 mm[Hg] Dr. Errol Shahid Work Phone: [facility] 01-02-2023 10:34-0400 Heart rate 84 /min Dr. Errol Shahid Work Phone: [facility] 01-02-2023 10:34-0400 Respiratory rate 18 /min Dr. Errol Shahid Work Phone: [facility] 01-02-2023 10:34-0400 SaO2% (BldA) [Mass fraction] 98 % Dr. Errol Shahid Work Phone: [facility] 01-02-2023 10:34-0400 Systolic blood pressure 108 mm[Hg] Dr. Errol Shahid Work Phone: [facility] 01-02-2023 06:00-0400 Body mass index (BMI) [Ratio] 23.1 kg/m2 Dr. Errol Shahid Work Phone: 5(443)679-862695 [place] [address] 01-02-2023 06:00-0400 Body weight 53.[address] Errol Shahid Work Phone: 3(526)456-416851 [address] 01-01-2023 13:20-0400 Inhaled oxygen flow rate 2 L/min Dr. Errol Shahid Work Phone: 3(551)528-255795 [place] [address] 12-31-2022 14:38-0400 Body height 152.[address] Errol Shahid Work Phone: 3(911)529-884414 [place] [address] 03-15-2022 10:00-0500 Heart rate 80 /min Dr. Errol Shahid Work Phone: 9(242)211-938851 [address] 03-15-2022 10:00-0500 Respiratory rate 16 /min Dr. Errol Shahid Work Phone: 4(092)000-255295 [place] [address] 03-15-2022 10:00-0500 SaO2% (BldA) [Mass fraction] 96 % Dr. Errol Shahid Work Phone: 6(057)192-001751 [address] 03-15-2022 09:47-0500 Body temperature 97.8 [degF] Dr. Errol Shahid Work Phone: 8(244)375-366895 [place] [address] 03-15-2022 09:47-0500 Diastolic blood pressure 65 mm[Hg] Dr. Errol Shahid Work Phone: [facility] 03-15-2022 09:47-0500 Systolic blood pressure 138 mm[Hg] Dr. Errol Shahid Work Phone: 7(246)218-724351 [address] 03-14-2022 09:00-0500 Body weight 47.[address] Errol Shahid Work Phone: 7(707)945-537651 [address] 03-08-2022 11:24-0500 Body height 149.[address] Errol Shahid Work Phone: [facility] 02-20-2022 18:10-0500 Body mass index (BMI) [Ratio] 20.2 kg/m2 Dr. Errol Shahid Work Phone: [facility] 02-20-2022 16:57-0500 Body temperature 98.5 [degF] Dr. Errol Shahid Work Phone: [facility] Work Phone: 02-20-2022 16:57-0500 Diastolic blood pressure 55 mm[Hg] Dr. Errol Shahid Work Phone: [facility] Work Phone: 02-20-2022 16:57-0500 Heart rate 73 /min Dr. Errol Shahid Work Phone: [facility] Work Phone: 02-20-2022 16:57-0500 Respiratory rate 16 /min Dr. Errol Shahid Work Phone: [facility] Work Phone: 02-20-2022 16:57-0500 SaO2% (BldA) [Mass fraction] 96 % Dr. Errol Shahid Work Phone: [facility] Work Phone: 02-20-2022 16:57-0500 Systolic blood pressure 118 mm[Hg] Dr. Errol Shahid Work Phone: [facility] Work Phone: 02-20-2022 16:56-0500 Body mass index (BMI) [Ratio] 19 kg/m2 Dr. Errol Shahid Work Phone: [facility] Work Phone: 02-20-2022 06:08-0500 Body weight 44.[address] Errol Shahid Work Phone: [facility] Work Phone: 02-13-2022 12:49-0500 Body height 152.[address] Errol Shahid Work Phone: [facility] Work Phone: 01-28-2022 08:06-0500 Body temperature 98.8 [degF] Kiesha Mckoy MD Work Phone: [facility] 01-28-2022 08:06-0500 Diastolic blood pressure 56 mm[Hg] Kiesha Mckoy MD Work Phone: [facility] 01-28-2022 08:06-0500 Heart rate 81 /min Kiesha Mckoy MD Work Phone: 0(362)172-444120 [address] 01-28-2022 08:06-0500 Respiratory rate 19 /min Kiesha Mckoy MD Work Phone: [facility] 01-28-2022 08:06-0500 SaO2% (BldA) [Mass fraction] 94 % Kiesha Mckoy MD Work Phone: [facility] 01-28-2022 08:06-0500 Systolic blood pressure 117 mm[Hg] Kiesha Mckoy MD Work Phone: [facility] 01-25-2022 00:36-0500 Body mass index (BMI) [Ratio] 21.35 kg/m2 Kiesha Mckoy MD Work Phone: [facility] 01-25-2022 00:36-0500 Body weight 49.58 kg Kiesha Mckoy MD Work Phone: [facility] 01-24-2022 08:39-0500 Body height 152.4 cm Kiesha Mckoy MD Work Phone: [facility] 01-19-2022 16:00-0500 Diastolic blood pressure 77 mm[Hg] Dr. Errol Shahid Work Phone: [facility] Work Phone: 01-19-2022 16:00-0500 Heart rate 78 /min Dr. Errol Shahid Work Phone: [facility] Work Phone: 01-19-2022 16:00-0500 Respiratory rate 16 /min Dr. Errol Shahid Work Phone: [facility] Work Phone: 01-19-2022 16:00-0500 SaO2% (BldA) [Mass fraction] 98 % Dr. Errol Shahid Work Phone: [facility] Work Phone: 01-19-2022 16:00-0500 Systolic blood pressure 150 mm[Hg] Dr. Errol Shahid Work Phone: [facility] Work Phone: 01-19-2022 15:45-0500 Body temperature 97.4 [degF] Dr. Errol Shahid Work Phone: [facility] Work Phone: 01-19-2022 13:38-0500 Body height 157.[address] Errol Shahid Work Phone: [facility] Work Phone: 01-19-2022 13:38-0500 Body mass index (BMI) [Ratio] 20.5 kg/m2 Dr. Errol Shahid Work Phone: [facility] Work Phone: 01-19-2022 13:38-0500 Body weight 51.[address] Errol Shahid Work Phone: [facility] Work Phone: 11-29-2021 12:48-0400 Body height 149.[address] Errol Shahid Work Phone: [facility] Work Phone: 11-29-2021 12:48-0400 Body weight 45.[address] Errol Shahid Work Phone: [facility] Work Phone: 11-29-2021 12:48-0400 Heart rate 68 /min Dr. Errol Shaihd Work Phone: [facility] Work Phone: 11-29-2021 12:48-0400 SaO2% (BldA) [Mass fraction] 98 % Dr. Errol Shahid Work Phone: [facility] Work Phone: 11-18-2021 15:35-0400 Body mass index (BMI) [Ratio] 19.5 kg/m2 Dr. Errol Shahid Work Phone: [facility] Work Phone: 11-18-2021 15:35-0400 Body weight 43.[address] Errol Shahid Work Phone: [facility] Work Phone: 11-18-2021 15:35-0400 Diastolic blood pressure 68 mm[Hg] Dr. Errol Shahid Work Phone: [facility] Work Phone: 11-18-2021 15:35-0400 Heart rate 64 /min Dr. Errol Shahid Work Phone: [facility] Work Phone: 11-18-2021 15:35-0400 Respiratory rate 16 /min Dr. Errol Shahid Work Phone: [facility] Work Phone: 11-18-2021 15:35-0400 SaO2% (BldA) [Mass fraction] 96 % Dr. Errol Shahid Work Phone: [facility] Work Phone: 11-18-2021 15:35-0400 Systolic blood pressure 145 mm[Hg] Dr. Errol Shahid Work Phone: [facility] Work Phone: 11-17-2021 07:19-0400 Body mass index (BMI) [Ratio] 19.7 kg/m2 Dr. Errol Shahid Work Phone: [facility] Work Phone: 11-17-2021 07:19-0400 Body temperature 97.6 [degF] Dr. Errol Shahid Work Phone: [facility] Work Phone: 11-17-2021 07:19-0400 Body weight 44.[address] Errol Shahid Work Phone: [facility] Work Phone: 11-17-2021 07:19-0400 Diastolic blood pressure 68 mm[Hg] Dr. Errol Sahhid Work Phone: [facility] Work Phone: 11-17-2021 07:19-0400 Heart rate 64 /min Dr. Errol Shahid Work Phone: [facility] Work Phone: 11-17-2021 07:19-0400 Respiratory rate 16 /min Dr. Errol Shahid Work Phone: [facility] Work Phone: 11-17-2021 07:19-0400 SaO2% (BldA) [Mass fraction] 94 % Dr. Errol Shahid Work Phone: [facility] Work Phone: 11-17-2021 07:19-0400 Systolic blood pressure 175 mm[Hg] Dr. Errol Shahid Work Phone: [facility] Work Phone: 11-12-2021 15:00-0400 Respiratory rate 16 /min [facility] Work Phone: 11-12-2021 13:36-0400 Diastolic blood pressure 74 mm[Hg] [facility] Work Phone: 11-12-2021 13:36-0400 Heart rate 64 /min [facility] Work Phone: 11-12-2021 13:36-0400 SaO2% (BldA) [Mass fraction] 98 % [facility] Work Phone: 11-12-2021 13:36-0400 Systolic blood pressure 138 mm[Hg] [facility] Work Phone: 11-12-2021 11:16-0400 Body height 149.86 cm [facility] Work Phone: 11-12-2021 11:16-0400 Body mass index (BMI) [Ratio] 19.5 kg/m2 [facility] Work Phone: 11-12-2021 11:16-0400 Body temperature 97.5 [degF] [facility] Work Phone: 11-12-2021 11:16-0400 Body weight 43.8 kg [facility] Work Phone: 11-07-2021 08:21-0400 Diastolic blood pressure 74 mm[Hg] [facility] Work Phone: 11-07-2021 08:21-0400 Heart rate 73 /min [facility] Work Phone: 11-07-2021 08:21-0400 Respiratory rate 16 /min [facility] Work Phone: 11-07-2021 08:21-0400 SaO2% (BldA) [Mass fraction] 100 % [facility] Work Phone: 11-07-2021 08:21-0400 Systolic blood pressure 129 mm[Hg] [facility] Work Phone: 11-07-2021 05:20-0400 Body height 152.4 cm [facility] Work Phone: 11-07-2021 05:20-0400 Body mass index (BMI) [Ratio] 19.5 kg/m2 [facility] Work Phone: 11-07-2021 05:20-0400 Body temperature 98.4 [degF] [facility] Work Phone: 11-07-2021 05:20-0400 Body weight 45.4 kg [facility] Work Phone: 11-05-2021 17:48-0400 Diastolic blood pressure 91 mm[Hg] [facility] Work Phone: 11-05-2021 17:48-0400 Heart rate 86 /min [facility] Work Phone: 11-05-2021 17:48-0400 Respiratory rate 20 /min [facility] Work Phone: 11-05-2021 17:48-0400 Systolic blood pressure 160 mm[Hg] [facility] Work Phone: 11-05-2021 16:26-0400 SaO2% (BldA) [Mass fraction] 97 % [facility] Work Phone: 11-05-2021 14:12-0400 Body temperature 97.4 [degF] [facility] Work Phone: 11-05-2021 13:55-0400 Body height 124.46 cm [facility] Work Phone: 11-05-2021 13:55-0400 Body mass index (BMI) [Ratio] 29.6 kg/m2 [facility] Work Phone: 11-05-2021 13:55-0400 Body weight 45.9 kg [facility] Work Phone: 06-21-2021 15:26-0400 Body temperature 98 [degF] [facility] Work Phone: 06-21-2021 15:26-0400 Diastolic blood pressure 83 mm[Hg] [facility] Work Phone: 06-21-2021 15:26-0400 Heart rate 70 /min [facility] Work Phone: 06-21-2021 15:26-0400 Respiratory rate 16 /min [facility] Work Phone: 06-21-2021 15:26-0400 SaO2% (BldA) [Mass fraction] 98 % [facility] Work Phone: 06-21-2021 15:26-0400 Systolic blood pressure 140 mm[Hg] [facility] Work Phone: 06-21-2021 10:17-0400 Body height 149.86 cm [facility] Work Phone: 06-21-2021 10:17-0400 Body mass index (BMI) [Ratio] 19.5 kg/m2 [facility] Work Phone: 06-21-2021 10:17-0400 Body weight 44 kg [facility] Work Phone: 01-11-2017 14:21-0400 Body Temperature 98.4 [degF] Mireille Kelly LPN [facility] Work Phone: Encounters Encounter Date Encounter Type Care Provider Facility Start: 09-29-2024 ambulatory Edouard Grayson Facility: [facility] Start: 07-17-2024 ambulatory Edouard Grayson Facility: [facility] Start: 06-30-2024 End: 06-30-[address] Edouard Grayson MD Work Phone: [facility] Work Phone: Start: 06-30-2024 End: 06-30-2024 Departed Referred Edouard Grayson MD [facility] Start: 06-30-2024 End: 06-30-2024 ambulatory Edouard Grayson Facility:[facility] Start: 04-21-2024 ambulatory Edouard Grayson Facility: [facility] Start: 04-21-2024 Registered Referred Edouard Grayson MD [facility] Start: 04-11-2024 ambulatory Edouard Grayson Facility: [facility] Start: 04-11-2024 Registered Referred Edouard Grayson MD [facility] Start: 04-04-2024 ambulatory Edouard Grayson Facility: [facility] Start: 04-04-2024 Registered Referred Edouard Grayson MD [facility] Start: 03-31-2024 ambulatory Edouard Grayson Facility: [facility] Start: 03-31-2024 Registered Referred Edouard Grayson MD [facility] Start: 03-26-2024 Non-patient / Non-visit Dr. Catarino Aguilar DO [facility] Work Phone: Start: 03-25-2024 Non-patient / Non-visit Dr. Catarino Aguilar [facility] Work Phone: Start: 03-24-2024 Non-patient / Non-visit Dr. Catarino Aguilar [facility] Work Phone: Start: 03-23-2024 Non-patient / Non-visit Dr. Catarino Aguilar [facility] Work Phone: Start: 03-22-2024 ambulatory Edouard Grayson Facility: [facility] [place] [place] Start: 03-22-2024 End: 03-26-2024 Evaluation and management of inpatient Dr. Catarino Aguilar DO [facility] Work Phone: Start: 12-31-2023 End: 12-31-2023 ambulatory Edouard Leonardo Kenan OLS Facility:[facility] Start: 12-13-2023 ambulatory Edouard Leonardo Grayson Facility: [facility] Start: 07-02-2023 Registered Referred [facility] Start: 05-02-2023 End: 05-02-2023 ambulatory [facility] Work Phone: Start: 05-02-2023 End: 05-02-2023 Departed Referred [facility] Start: 04-02-2023 End: 04-02-[address] Errol Shahid Work Phone: [facility] Work Phone: Start: 04-02-2023 End: 04-02-[address] Errol Shahid Work Phone: [facility] Start: 02-28-[address] Rudolph Shahid Work Phone: [facility] Start: 02-07-2023 End: 02-07-[address] Errol Shahid Work Phone: [facility] Work Phone: Start: 02-07-2023 End: 02-07-[address] Errol Shahid Work Phone: [facility] Start: 02-02-[address] Rudolph Shahid Work Phone: [facility] Start: 01-19-[address] Rudolph Shahid Work Phone: [facility] Start: 01-08-[address] Rudolph Shahid Work Phone: [facility] Start: 01-05-[address] Rudolph Shahid Work Phone: [facility] Start: 01-02-2023 Non-patient / Non-visit Dr. Errol Shahid Work Phone: [facility] Work Phone: Start: 01-01-2023 Non-patient / Non-visit Dr. Errol Shahid Work Phone: [facility] Start: 12-31-2022 Non-patient / Non-visit Dr. Errol Shahid Work Phone: [facility] Work Phone: Start: 12-31-2022 Non-patient / Non-visit Dr. Errol Shahid Work Phone: [facility] Start: 12-30-2022 End: 01-02-2023 Evaluation and management of inpatient Dr. Errol Shahid Work Phone: [facility]-Medical Surgical 3 Work Phone: Start: 12-30-2022 End: 12-30-[address] Errol Shahid Work Phone: [facility]-Laboratory, Specimen Work Phone: Start: 12-28-2022 End: 12-28-[address] Errol Shahid Work Phone: [facility] Start: 12-28-[address] Rudolph Shahid Work Phone: [facility] Start: 09-28-2022 End: 09-28-2022 ambulatory [facility] Work Phone: Start: 09-28-2022 End: 09-28-2022 Departed Referred [facility] Start: 06-29-2022 End: 06-29-2022 ambulatory [facility] Work Phone: Start: 06-29-2022 End: 06-29-2022 Departed Referred [facility] Start: 06-16-2022 End: 06-16-2022 ambulatory [facility] Work Phone: Start: 06-16-2022 End: 06-16-2022 Departed Referred [facility] Start: 04-03-2022 Registered Referred [facility] Start: 02-20-2022 End: 03-15-2022 Evaluation and management of inpatient Dr. Errol Shahid Work Phone: [facility]-Transitional Care Unit Start: 02-20-2022 Non-patient / Non-visit Dr. Errol Shahid Work Phone: [facility] Start: 02-16-2022 Non-patient / Non-visit Dr. Errol Shahid Work Phone: [facility] Start: 02-15-2022 Non-patient / Non-visit Dr. Errol Shahid Work Phone: [facility] Start: 02-13-2022 Non-patient / Non-visit Dr. Errol Shahid Work Phone: [facility] Start: 02-12-2022 Non-patient / Non-visit Dr. Errol Shahid Work Phone: [facility] Start: 02-10-2022 Non-patient / Non-visit Dr. Errol Shahid Work Phone: [facility] Start: 02-09-2022 Non-patient / Non-visit Dr. Errol Shahid Work Phone: [facility] Start: 02-08-2022 Non-patient / Non-visit Dr. Errol Shahid Work Phone: [facility] Start: 02-07-2022 Non-patient / Non-visit Dr. Errol Shahid Work Phone: [facility] Start: 02-07-2022 Non-patient / Non-visit Dr. Errol Shahid Work Phone: [facility] Start: 02-06-2022 Non-patient / Non-visit Dr. Errol Shahid Work Phone: [facility] Start: 02-03-2022 Non-patient / Non-visit Dr. Errol Shahid Work Phone: [facility] Start: 02-02-2022 Non-patient / Non-visit Dr. Errol Shahid Work Phone: [facility] Start: 01-31-2022 Non-patient / Non-visit Dr. Errol Shahid Work Phone: [facility] Start: 01-30-2022 Non-patient / Non-visit Dr. Errol Shahid Work Phone: [facility] Start: 01-28-2022 End: 02-20-2022 Evaluation and management of inpatient Dr. Errol Shahid Work Phone: [facility]Rehab Unit Start: 01-20-2022 ambulatory SURGERY CONSULT Facilit y:[facility] Start: 01-19-2022 End: 01-19-2022 ambulatory UNKNOWN PROVIDER Facility:[facility] Start: 01-19-2022 End: 01-28-2022 Evaluation and management of inpatient SURGERY - NEURO CONSULT Facility:[facility] Start: 01-19-2022 End: 01-28-2022 Evaluation and management of inpatient Kiesha Mckoy MD Work Phone: [id number] Start: 01-19-2022 End: 01-19-2022 Emergency department patient visit Dr. Errol Shahid Work Phone: [facility]-Emergency Department Start: 01-17-2022 End: 01-17-[address] Errol Shahid Work Phone: [facility] Start: 12-30-2021 End: 12-30-[address] Errol Shahid Work Phone: [facility] Work Phone: Start: 12-30-2021 End: 12-30-[address] Errol Shahid Work Phone: [facility] Start: 12-02-2021 Non-patient / Non-visit Dr. Errol Shahid Work Phone: [facility] Start: 12-02-2021 End: 12-02-[address] [facility] Start: 12-01-2021 Non-patient / Non-visit Dr. Errol Shahid Work Phone: [facility] Start: 11-29-2021 End: 11-29-[address] Errol Shahid Work Phone: [facility] Work Phone: Start: 11-29-2021 End: 11-29-[address] Errol Shahid Work Phone: [facility]-Pulmonary Services/Neurology Start: 11-25-2021 Non-patient / Non-visit Dr. Errol Shahid Work Phone: [facility] Start: 11-25-2021 End: 11-25-[address] [facility] Start: 11-18-2021 End: 11-18-[address] Errol Shahid Work Phone: [facility] Start: 11-17-2021 End: 11-17-[address] Errol Shah[facility] Start: 11-12-2021 End: 11-12-2021 Emergency department patient visit [facility]Emergency [facility] Start: 11-07-2021 End: 11-07-2021 Emergency department patient visit [facility] Start: 11-05-2021 End: 11-05-2021 Emergency department patient visit [facility] Start: 08-15-2021 End: 08-15-[address] Errol Shahid Work Phone: [facility] Start: 08-04-2021 End: 08-04-[address] Errol Shahid Work Phone: [facility]-Laboratory, Specimen Start: 08-02-2021 End: 08-02-[address] Errol Shahid Work Phone: [facility]-Radiology, [place] Start: 06-21-2021 End: 06-21-2021 Admission to same day surgery center [facility] Day Care Start: 06-16-2021 End: 06-16-2021 Patient encounter procedure [facility]-Cat Scan, [facility] Start: 06-15-2021 Non-patient / Non-visit Dr. Errol Shahid Work Phone: [facility] Start: 04-25-2021 End: 04-25-2021 Patient encounter procedure [facility] Scan, [facility] Start: 02-28-2021 Patient encounter procedure [facility]Laboratory, Specimen Procedures Date Procedure Procedure Detail [...] Other Start: 01-27-2022 Creatinine blood Lars Lord APRN-TUBING SUPERVISOR Work Phone: Start: 01-26-2022 Assay of magnesium Donna Corbin SNUBBER-TUBING SUPERVISOR Work Phone: Start: 01-25-2022 Us abdominal real time w/image limited Lars Lord SNUBBER-TUBING SUPERVISOR Work Phone: Start: 01-25-2022 Dup-scan xtr veins complete bilateral study Lars Lord SNUBBER-TUBING SUPERVISOR Work Phone: Start: 01-25-2022 Assay of lactate Lars Lord SNUBBER-TUBING SUPERVISOR Work Phone: Start: 01-25-2022 Assay of amylase Lars Lord APRN-TUBING SUPERVISOR Work Phone: Start: 01-25-2022 Hepatic function panel Lars Lord APRN-TUBING SUPERVISOR Work Phone: Start: 01-24-2022 Echo tthrc r-t 2d w/wom-mode compl spec&colr d Donna Zepeda Shaquille GOLDSMITHN-TUBING SUPERVISOR Work Phone: Start: 01-24-2022 Radiologic exam chest single view Karson Sanches APRN-TUBING SUPERVISOR Work Phone: Start: 01-24-2022 Infectious agent dna/rna influenza 1st 2 types Janey Sanches SNUBBER-TUBING SUPERVISOR Work Phone: Start: 01-24-2022 SARS-CoV-2 (COVID-19) RNA [Presence] in Unspecified specimen by CHRIS with probe detection Janey Sanches SNUBBER-TUBING SUPERVISOR Work Phone: Start: 01-24-2022 CONTINUOUS CARDIAC MONITORING STRIP [facility] Other Start: 01-24-2022 EXTRA MICRO Sussy Manning MD Work Phone: Start: 01-24-2022 URINALYSIS REFLEX TO CULTURE Sussy loo MD Work Phone: Start: 01-24-2022 Urnls dip stick/tablet reagent auto microscopy Sussy Manning MD Work Phone: Start: 01-24-2022 Ct head/brain w/o contrast material Lele Sanches SNUBBER-TUBING SUPERVISOR Work Phone: Start: 01-24-2022 Assay of magnesium Donna Zepeda Shaquille SNUBBER-TUBING SUPERVISOR Work Phone: Start: 01-23-2022 Culture bacterial blood aerobic w/id isolates Sussy Manning MD Work Phone: Start: 01-23-2022 Glucose measurement, blood Hannah Leonardo ward MD Work Phone: Start: 01-23-2022 Natriuretic peptide Sussy Manning MD Work Phone: Start: 01-23-2022 Blood count complete automated Janey Sanches SNUBBER-TUBING SUPERVISOR Work Phone: Start: 01-23-2022 CONTINUOUS CARDIAC MONITORING STRIP [facility] Other Start: 01-23-2022 Assay of magnesium Donna Corbin SNUBBER-TUBING SUPERVISOR Work Phone: Start: 01-22-2022 CONTINUOUS CARDIAC MONITORING STRIP [facility] Other Start: 01-22-2022 End: 01-22-2022 CONTINUOUS CARDIAC MONITORING STRIP [facility] Other Start: 01-22-2022 End: 01-22-2022 Urnls dip stick/tablet reagent auto microscopy Ivanna Ortiz SNUBBER-TUBING SUPERVISOR Work Phone: Start: 01-22-2022 Ct head/brain w/o contrast material Loraine Villagranshaw SNUBBER-TUBING SUPERVISOR Work Phone: Start: 01-22-2022 Radiologic exam chest single view Selena Villagranshaw SNUBBER-TUBING SUPERVISOR Work Phone: Start: 01-22-2022 CONTINUOUS CARDIAC MONITORING STRIP [facility] Other Start: 01-22-2022 Ct head/brain w/o contrast material Loraine Ortiz SNUBBER-TUBING SUPERVISOR Work Phone: Start: 01-22-2022 Assay of magnesium Donna Corbin SNUBBER-TUBING SUPERVISOR Work Phone: Start: 01-21-2022 Ecg routine ecg w/least 12 lds trcg only w/o i&r Usama N Cantrell SNUBBER-TUBING SUPERVISOR Work Phone: Start: 01-21-2022 CONTINUOUS CARDIAC MONITORING STRIP [facility] Other Start: 01-21-2022 Assay of troponin quantitative Rajan kendrick MD Work Phone: Start: 01-21-2022 Assay of magnesium Donna Corbin SNUBBER-TUBING SUPERVISOR Work Phone: Start: 01-20-2022 Ct head/brain w/o [...] Radiologic exam chest single view Donna Corbin SNUBBER-TUBING SUPERVISOR Work Phone: Start: 01-20-2022 Iadna s aureus amplified probe tq Donna Corbin SNUBBER-TUBING SUPERVISOR Work Phone: Start: 01-20-2022 End: 01-20-2022 Hemoglobin [...] Activity Detail Author Start: 03-26-2024 Patient discharge [facility] Start: 03-24-2024 [facility] Start: 03-23-2024 Care planning and problem solving actions [facility] Start: 03-22-2024 Speech therapy assessment [facility] Start: 03-22-2024 Following clinical pathway protocol [facility] Start: 03-22-2024 Assessment of risk of venous thromboembolism [facility] Start: 03-22-2024 Fall prevention [facility] Start: 03-22-2024 Inhalation therapy procedure [facility] Start: 03-22-2024 Insertion of catheter into peripheral vein [facility] Start: 03-22-2024 Introduction of urinary catheter [facility] Start: 03-22-2024 Measuring intake and output [facility] Start: 03-22-2024 Oxygen therapy [facility] Start: 03-22-2024 Providing care according to standard [facility] Start: 03-22-2024 Provision of activity privileges [facility] Start: 03-22-2024 Referral to occupational therapist [facility] Start: 03-22-2024 Referral to service [facility] Start: 03-22-2024 [facility] Start: 03-22-2024 Admission procedure [facility] Start: 03-22-2024 [facility] Start: 01-02-2023 Patient discharge [facility] Start: 12-31-2022 Measurement of occult blood in stool specimen using immunoassay [facility] Start: 12-31-2022 Following clinical pathway protocol [facility] Start: 12-30-2022 Application of intermittent pneumatic compression device [facility] Start: 12-30-2022 Administration of blood product [facility] Start: 12-30-2022 Following clinical pathway protocol [facility] Start: 12-30-2022 Assessment of risk of venous thromboembolism [facility] Start: 12-30-2022 Fall prevention [facility] Start: 12-30-2022 Inhalation therapy procedure [facility] Start: 12-30-2022 Insertion of catheter into peripheral vein [facility] Start: 12-30-2022 Introduction of urinary catheter [facility] Start: 12-30-2022 Measuring intake and output [facility] Start: 12-30-2022 Providing care according to standard [facility] Start: 12-30-2022 Provision of activity privileges [facility] Start: 12-30-2022 Referral to gastroenterology service [facility] Start: 12-30-2022 Referral to occupational therapist [facility] Start: 12-30-2022 Referral to service [facility] Start: 12-30-2022 [facility] Start: 12-30-2022 Admission procedure [facility] Start: 12-30-2022 End: 12-30-2022 Administration of blood product [facility] Start: 12-30-2022 Transfusion of red blood cells [facility] Start: 03-15-2022 Patient discharge [facility] Start: 03-14-2022 Development of care plan [facility] Start: 03-14-2022 End: 03-14-2022 ambulatory [facility]rology [facility] Start: 03-02-2022 Recommendation to continue with treatment [facility] Start: 03-02-2022 [facility] Work Phone: Start: 02-27-2022 [facility] Start: 02-21-2022 Development of care plan [facility] Start: 02-21-2022 Speech therapy management [facility] Start: 02-21-2022 Developing a treatment plan [facility] Start: 02-20-2022 Speech therapy assessment [facility] Start: 02-20-2022 Admission procedure [facility] Start: 02-20-2022 Measuring intake and output [facility] Start: 02-20-2022 Patient referral to dietitian [facility] Start: 02-20-2022 Referral to occupational therapist [facility] Start: 02-20-2022 Referral to service [facility] Start: 02-20-2022 Vital signs measurements [facility] Start: 02-20-2022 End: 02-20-2022 [facility] Start: 02-20-2022 Patient discharge [facility] Work Phone: Start: 02-10-2022 [facility] Work Phone: Start: 02-09-2022 [facility] Work Phone: Start: 02-07-2022 Referral to gastroenterology service [facility] Work Phone: Start: 01-30-2022 Application of intermittent pneumatic compression device [facility] Work Phone: Start: 01-30-2022 [facility] Work Phone: Start: 01-30-2022 Following clinical pathway protocol [facility] Work Phone: Start: 01-30-2022 Catheterization of vein [facility] Work Phone: Start: 01-29-2022 [facility] Work Phone: Start: 01-29-2022 Referral to service [facility] Work Phone: Start: 01-29-2022 Urinary bladder training [facility] Work Phone: Start: 01-29-2022 Patient referral to dietitian [facility] Work Phone: Start: 01-29-2022 Vital signs measurements [facility] Work Phone: Start: 01-29-2022 End: 01-29-2022 [facility] Work Phone: Start: 01-29-2022 Referral to occupational therapist [facility] Work Phone: Start: 01-29-2022 Incentive spirometry [facility] Work Phone: Start: 01-29-2022 Speech therapy assessment [facility] Work Phone: Start: 01-28-2022 Admission procedure [facility] Work Phone: Start: 01-19-2022 Oxygen therapy [facility] Work Phone: Start: 01-19-2022 End: 01-19-2022 [facility] Work Phone: Start: 11-05-2021 [facility] Work Phone: Start: 06-21-2021 Anesthesia nose & accessory sinuses nos ANESTH NOSE/SINUS SURGERY [facility] Work Phone: Start: 06-21-2021 Nasal/sinus ndsc total with sphenoidotomy NSL/SINS NDSC TOT W/SPHENDT [facility] Work Phone: Start: 01-16-2017 End: 01-16-2017 Appointment Appointment [facility] Work Phone: Start: 01-11-2017 End: 01-11-2017 Appointment Appointment [facility] Work Phone: Start: 12-12-2016 End: 12-14-2016 Dxa bone density study 1/> sites axial skel Dual-energy X-ray absorptiometry (DXA), bone density study, 1 or more sites; [facility] Work Phone: Start: 12-12-2016 End: 12-14-2016 Mammogram, screening Mammogram, Screening, both breasts [facility] Work Phone: Start: 08-06-2011 [facility] Start: 12-10-2008 Tetanus vaccination [facility] Start: 06-13-1987 Screening for malignant neoplasm of colon [facility] Start: 1982 Screening for malignant neoplasm of breast [facility] Start: 06-13-1963 Screening for malignant neoplasm of cervix [facility] Start: 1961 Third diphtheria, tetanus and acellular pertussis (DTaP) vaccination [facility] Start: 1942 [facility] Start: 1942 Hepatitis C screening [facility] Start: 1942 Screening for osteoporosis [facility] Bacteria identified in Blood by Culture [facility] CT Chest WO contrast [facility] Work Phone: End: 01-19-2022 [facility]: Patient Education [facility] Work Phone: Patient referral [facility] Work Phone: SARS-CoV-2 (COVID-19 ) Ag [Presence] in Respiratory specimen by Rapid immunoassay [facility] Work Phone: SARS-CoV-2 Antigen (Rapid) SARS- CoV-2 Antigen (Rapid) [facility] Work Phone: Immunizations Immunization Date Immunization Notes Care Provider [facility] 12-27-2021 influenza, injectabl e, quadrivalent, preservative free Dr. Errol Shahid Work Phone: [facility] 12-27-2021 influenza, seasonal, injectable Dr. Errol Shahid Work Phone: [facility] 08-02-2021 Covid (Moderna) Dr. Santa Shahid Work Phone: [facility] 02-04-2021 Covid (Moderna) Dr. Santa Shahid Work Phone: [facility] 06-07-2020 Covid (Moderna) [facility] 05-10-2020 Covid (Moderna) [facility] 01-01-2020 influenza, injectabl e, quadrivalent, preservative free Dr. Errol Shahid Work Phone: [facility] 01-01-2020 influenza, seasonal, injectable Dr. Errol Shahid Work Phone: [facility] 01-10-2019 influenza, injectabl e, quadrivalent, preservative free Dr. Errol Shahid Work Phone: [facility] 01-10-2019 influenza, seasonal, injectable Dr. Errol Shahid Work Phone: [facility] 12-17-2017 influenza, injectabl e, quadrivalent, preservative free Dr. Errol Shahid Work Phone: [facility] 12-17-2017 influenza, seasonal, injectable Dr. Errol Shahid Work Phone: [facility] 01-11-2017 influenza, injectabl e, quadrivalent, preservative free Dr. Errol Shahid Work Phone: [facility] 01-11-2017 influenza, seasonal, injectable Dr. Errol Shahid Work Phone: [facility] 01-11-2017 Seasonal trivalent influenza vaccine, adjuvanted, preservative free Mireille Kelly LPN [facility] Work Phone: 01-10-2017 Influenza virus vaccine [facility] 02-15-2016 pneumococcal conjuga te vaccine, [address] Errol Shahid Work Phone: [facility] 01-27-2016 influenza, injectabl e, quadrivalent, preservative free Dr. Errol Shahid Work Phone: [facility] 01-27-2016 influenza, seasonal, injectable Dr. Errol Shahid Work Phone: [facility] 12-31-2014 Influenza, high dose seasonal Dr. Edouard Grayson MD Work Phone: [facility] 12-31-2014 influenza, high dose seasonal, preservative-free Dr. Errol Shahid Work Phone: [facility] 01-23-2014 influenza, injectabl e, quadrivalent, preservative free Dr. Errol Shahid Work Phone: [facility] 01-23-2014 influenza, seasonal, injectable Dr. Errol Shahid Work Phone: [facility] 12-10-1998 tetanus and diphther ia toxoids, adsorbed, preservative free, for adult use (2 Lf of tetanus toxoid and 2 Lf of diphtheria toxoid) Dr. Errol Shahid Work Phone: [facility] 02-01-1996 hepatitis B vaccine, pediatric or pediatric/adolescent dosage Dr. Errol Shahid Work Phone: [facility] Payers Date Payer Category Payer Self-pay [id number] 2022 Medicare [id number] 2021 Unknown [id number] 2016 Unknown [id number] 2007 Medicare [id number] 1942 Unknown [id number] 2.16. [id number] 1942 Unknown [id number] 2.16. [id number] 1942 Unknown [id number] 2.16. [id number] Unknown [id number] 2.16.8 [id number] Unknown [id number] 2.16.8 [id number] Unknown [id number] 2.16.8 [id number] Unknown [id number] 2.16.8 [id number] Unknown [id number] 2.16.8 [id number] Unknown [id number] 2.16.8 [id number] Unknown [id number] 2.16.8 [id number] Unknown [id number] 2.16.8 [id number] Unknown [id number] 2.16.8 [id number] Unknown [id number] 2.16.8 [id number] Unknown [id number] 2.16.8 [id number] Unknown [id number] 2.16.8 [id number] Unknown [id number] 2.16.8 [id number] Unknown [id number] 2.16.8 [id number] Unknown [id number] 2.16.8 [id number] Unknown [id number] 2.16.8 [id number] Social History Date Type Detail Facility Start: 06-14-2021 End: 12-30-2022 Tobacco smoking status NHIS Unknown if ever smoked [facility] Start: 02-05-2020 None [facility] Start: 09-28-2020 Non-smoker [facility] Start: 1940 Sex Assigned At Female W [facility] Start: 1940 Sex Assigned At O [facility] Start: 01-09-2022 End: 01-19-2022 Exposure to SARS-CoV-2 (event) Not sure [facility] Start: 04-15-2017 Spouse/ Signif icant Other [facility] Start: 03-22-2024 Tobacco smoking status NHIS Never smoked tobacco (finding) [facility] Start: 07-01-2024 Sex Female (finding) [facility] Medical Equipment Procedure Code Equipment Code Equipment Origin al Text Equipment Identifier Dates [id number] Start: 01-19-2022 Goals Date Patient Goal Desired Activity /State Functional Status Date Assessment Result Facility 03-26-2024 Functional status Bedrest [facility] Work Phone: 01-02-2023 Functional status Up ad mya;Bathroom Priv ilege [facility] Work Phone: 03-15-2022 Functional status Activity Abili ty With Assist of 1 [facility] Work Phone: 03-14-2022 Functional status [facility]rest [facility] [facility] Work Phone: 03-13-2022 Functional status Tolerates Activity Well [facility] Work Phone: 02-20-2022 Functional status Activity Abili ty With Assist of 1 [facility] Work Phone: 02-15-2022 Functional status Bedrest;Bedside Commode [facility] Work Phone: Mental Status Date Assessment Result Facility 03-26-2024 Cognitive function Voice/Name [facility] Work Phone: 01-02-2023 Cognitive function Voice/Name [facility] Work Phone: 01-02-2023 Cognitive function Appropriate;[facility] Work Phone: 03-15-2022 Cognitive function Voice/Name [facility] Work Phone: 03-13-2022 Cognitive function Appropriate;[facility] Work Phone: 02-20-2022 Cognitive function Voice/Name [facility] Work Phone: 01-19-2022 Cognitive function Voice/Name [facility] Work Phone: 11-07-2021 Cognitive function Voice/Name [facility] Work Phone: 11-05-2021 Cognitive function Voice/Name [facility] Work Phone: 06-21-2021 Cognitive function Level Of Cons ciousness Awake;Drowsy [facility] Work Phone: 06-21-2021 Cognitive function Voice/Name [facility] Work Phone: Clinical Notes 03-15-2021 to 03-26-2024 Note Date & Type Note Facility 03-26-2024 Note [facility] Medical Records Department [address] [place] [address] Discharge Summary 03/26/24 1110 MR#: [id number] Acct: [id number] Name: KARLIE VALLE Rep #: [id number] : 1940 83 From: Catarino Aguilar DO PCP: Dr. Edouard Grayson MD Status:DIS IN Location: [facility] TK334-7 Providers Date of Admission: 03/22/24 Date of [...] mg) PO Q4H PRN PRN Fever, pain -12/19 #0 tabs 03/26/24 amoxicillin 875 mg-potassium clavulanate [...] was seen in the emergency room at [facility] after being sent in from a [...] and cerebellar infarcts. Patient was admitted to [place] [address] and seen by PT and OT, she [...] normal Neck hall (more content not included)... [facility] 03-22-2024 Evaluation note Diagnosis Onset Date Resolution COVID-19 inactive March 22, 2024 2:49pm Hypoxia inactive March 22, 2024 2:49pm [facility] Work Phone: 1(794) 198-297810-24-2023 Consult note Author Conor Antunez [facility] January 02, 2023 10:12am Note Date/Time January 02, 2023 1 0:12am [facility] Medical Records Department [address] [place] [address] Counseling Note - Pharmacy 01/02/23 1011 MR#: [id number] Acct: [id number] Name: KARLIE VALLE Rep #:[id number] : 1940 82 From: Conor Antunez PCP: Dr. Errol Shahid MD Status: ADM IN Y Location: [facility] HS905-7 Pharmacy [facility] Service has performed discharge medication reconciliation [...] (reduced dose) 2. Hydrocortisone 25 mg suppository AK BID The patient's daughter was able to [...] acetate 25 mg rectal suppository 25 mg AK BID 4 weeks #24 ea 01/02/23 01/02/23 1012 <Electronically signed by Conor garza> Date _ Conor Antunez Cosigner Signature (if applicable): Date CC: ~ Signed [facility] Work Phone: 1(794) 729-966210-24-2023 Discharge summary Author Stefano Palmer [facility] January 02, 2023 9:57am Note Date/Time January 02, 2023 9 :50am [facility] Medical Records Department [address] [place] [address] Transfer to [facility] MR#: [id number] Acct: [id number] Name: KARLIE VALLE Rep #:[id number] : 1940 82 From: Stefano guerrero MD PCP: Dr. Errol Shahid MD Status: ADM IN Certification of patient admission REQUIRED AT TIME OF ADMISSION. I CERTIFY THAT POST-HOSPITAL [facility] SERVICES ARE REQUIRED TO BE GIVEN ON AN IN-PATIENT BASIS BECAUSE OF THE ABOVE NAMED PATIENT'S NEED FOR SENIOR CARE CARE ON A CONTINUING BASIS FOR THE CONDITION(S) FOR WHICH HE/SHE WAS RECEIVING IN-PATIENT HOSPITAL SERVICES PRIOR TO HIS/HER TRANSFER TO THE [facility]. 01/02/23 0957<Electronically signed by Stefano Palmer MD> [...] hydrocortisone acetate 25 mg suppository 25 mg AK BID 28 Days Qty: 24 0RF Eliquis [...] in before D/C Order can be placed): [facility] Facility (1) Anemia Qualifiers: Anemia type: iron [...] Shahid MD; Dr. Helene Khan MD ~ [facility] Work Phone: 1(449) 289-710810-24-2023 Progress note Author Jim Friend [facility] January 02, 2023 1:59pm Note Date/Time January 02, 2023 1 :59pm [facility] Medical Records Department [address] [place] [address] Progress Note - GI 01/02/23 0700 MR#: [id number] Acct: [id number] Name: KARLIE VALLE Rep #:[id number] : 1940 82 From: Jim Friend DO PCP: Dr. Errol Shahid MD Status: ADM IN Location: [facility] TW551-3 Subjective Subjective Patient is doing well from [...] a day Charges/Coding Visit Charges Inpatient E&M: 70853 Subs Hosp L3 01/02/23 1359 <Electronically signed by Jim Sanon DO> Cosigner Signature (if applicable): CC: ~ Signed [facility] Work Phone: 1(691) 514-850510-23-2023 Progress note Author Jim Sanon [facility] January 01, 2023 9:20pm Note Date/Time January 01, 2023 9 :20pm [facility] Medical Records Department [address] [place] [address] Progress Note - GI 01/01/232112 MR#: [id number] Acct: [id number] Name: KARLIE VALLE Rep #:[id number] : 1940 82 From: Jim Sanon DO PCP: Dr. Errol Shahid MD Status: ADM IN Location: [facility] AH655-7 Subjective Subjective Patient underwent colonoscopy today and [...] % (Auto) 60.3, Lymph % (Auto) 25.8, [place] % (Auto) 10.6 H, Eos % (Auto) [...] a day Charges/Coding Visit Charges Inpatient E&M: 65512 Subs Hosp L3 01/01/232119 <Electronically signed by Jim Sanon DO> Cosigner Signature (if applicable): CC: ~ Signed [facility] Work Phone: 1(172) 416-729510-23-2023 Progress note Author Stefano Palmer [facility] January 01, 2023 11:45am Note Date/Time January 01, 2023 1 1:45am [facility] Medical Records Department [address] [place] [address] Progress Note - Hospitalist 01/01/23 1142 MR#: [id number] Acct: [id number] Name: KARLIE VALLE Rep #:[id number] : 1940 82 From: Stefano guerrero MD PCP: Dr. Errol Shahid MD Status: ADM IN Location: [facility] WR095-7 Subjective Subjective Doing well, no issues overnight. [...] / 0 Output Total 500 / 500 1999 / 1999 Balance 610 / 610 -880 / -880 [...] % (Auto) 60.3, Lymph % (Auto) 25.8, [place] % (Auto) 10.6 H, Eos % (Auto) [...] DVT: SCDs Charges/Coding Visit Charges Inpatient E&M: 63293 Subs Hosp L2 01/01/23 1145 <Electronically signed by Stefano Palmer MD> Mollyer Signature (if applicable): CC: ~ Signed [facility] Work Phone: 1(459) 699-294110-23-2023 Procedure [facility] 01-01-2023 Procedure [facility]10-22-2023 Progress note Author Helene Khan [facility] December 31, 2022 1:19pm Note Date/Time December 31, 2022 1 :19pm [facility] Medical Records Department [address] [place] [address] Progress Note 12/31/22 1310 MR#: [id number] Acct: [id number] Name: KARLIE VALLE Rep #:[id number] : 1940 82 From: Helene Khan MD PCP: Dr. Errol Shahid MD Status: ADM IN Location: [facility]3 TC248-0 Subjective Subjective Patient seen and examined. She [...] % (Auto) 55.8, Lymph % (Auto) 30.3, [place] % (Auto) 9.5, Eos % (Auto) 3.4, [...] prophylaxis; SCDs Charges/Coding Visit Charges Inpatient E&M: 13248 Subs Hosp L2 12/31/22 1319 <Electronically signed by Helene Khan MD> Helene Khan MD Cosigner Signature (if applicable): CC: ~ Signed [facility] Work Phone: 1(497) 402-981910-22-2023 Progress note Author Jim Friend [facility] December 31, 2022 11:40am Note Date/Time December 31, 2022 1 1:40am [facility] Medical Records Department [address] [place] [address] Progress Note - GI 12/31/22 1139 MR#: [id number] Acct: [id number] Name: KARLIE VALLE Rep #:[id number] : 1940 82 From: Jim Friend DO PCP: Dr. Errol Shahid MD Status: ADM IN Location: [facility]3 UI423-0 Subjective Subjective Patient underwent upper endoscopy today [...] % (Auto) 55.8, Lymph % (Auto) 30.3, [place] % (Auto) 9.5, Eos % (Auto) 3.4, [...] colonoscopy tomorrow. Charges/Coding Visit Charges Inpatient E&M: 48725 Subs Hosp L2 12/31/22 1140 <Electronically signed by Jim Sanon DO> Cosigner Signature (if applicable): CC: ~ Signed [facility] Work Phone: 1([phone]) 488-433210-22-2023 Consult note Author Jim Sanon [facility] December 31, 2022 10:43am Note Date/Time December 31, 2022 1 0:43am [facility] Medical Records Department [address] [place] [address] Consultation - GI 12/31/22 1041 MR#: [id number] Acct: [id number] Name: KARLIE VALLE Rep #:[id number] : 1940 82 From: Jim Sanon DO PCP: Dr. Errol Shahid MD Status: ADM [facility] Consult Data Date of Consult: 12/30/22 [...] anemia/Fe deficiency anemia who presents to the [facility] ED on 12/30/22 per PCP recommendation secondary [...] the vault and no gross blood noted. [facility] Medical History (Updated 12/30/22 @ 20:43 by Stephanie Casanova) Angiodysplasia of duodenum Angiodysplasia of stomach Arthritis Atherosclerosis of coronary artery of [place] heart without angina pectoris Atrial fibrillation Cardiology [...] % (Auto) 55.8, Lymph % (Auto) 30.3, [place] % (Auto) 9.5, Eos % (Auto) 3.4, [...] capsule endoscopy. Charges/Coding Visit Charges Inpatient E&M: 74905 Init Hosp L3 12/31/22 1043 <Electronically signed by Jim Friend DO> Cosigner Signature (if applicable): CC: Dr. Chasity Huffman MD; Dr. Errol Shahid MD~ Signed [facility] Work Phone: 1([phone]) 255-156210-22-2023 Procedure [facility] 12-31-2022 Procedure [facility]10-21-2023 History and physical note Author Chasity Huffman [facility] December 30, 2022 5:42pm Note Date/Time December 30, 2022 5 :12pm [facility] Medical Records Department [address] [place] [address] H&P Exam - Hospitalist 12/30/22 1705 MR#: [id number] Acct: [id number] Name: KARLIE VALLE Rep #:[id number] : 1940 82 From: Chasity Huffman MD PCP: Dr. Errol Shahid MD Status: ADM IN Location: [facility] KO033-0 HPI - General General Date of Admission: 12/30/22 Date of Service: 12/30/22 Chief Complaint: Dizziness, lightheadedness. HPI Narrative The patient is an 82 y/o F w/ PMHx: RLS, Anxiety and Depression, Hx esophageal stenosis, Hx GI bleed w/ angiodysplasia duodenum/stomach, GERD, HTN, HLD, PAF, Hx CVA, Chronic migraine headaches, IBS, Chronic normocytic anemia/Fe deficiencyanemia who presents to the [facility] ED on 12/30/22 per PCP recommendation secondary [...] the vault and no gross blood noted. [facility] Medical History (Updated 12/30/22 @ 17:04 by aDnyel Viveros MD) Angiodysplasia of duodenum Angiodysplasia of stomach Arthritis Atherosclerosis of coronary artery of [place] heart without angina pectoris Atrial fibrillation Cardiology [...] % (Auto) 55.8, Lymph % (Auto) 30.3, [place] % (Auto) 9.5, Eos % (Auto) 3.4, [...] anemia/Fe deficiency anemia who presents to the [facility] ED on 12/30/22 per PCP recommendation secondary [...] facility paperwork. Charges/Coding Visit Charges Inpatient E&M: 60674 Init Hosp L3 12/30/22 0654 <Electronically signed by Chasity Huffman MD> Cosigner Signature (if applicable): CC: Dr. Chasity Huffman MD; Dr. Errol Shahid MD~ Signed [facility] Work Phone: 1(557) 140-459610-21-2023 Discharge summary Author Danyel Viveros [facility] December 30, 2022 5:11pm Note Date/Time December 30, 2022 4 :27pm [facility] Medical Records Department [address] [place] [address] Emergency Department Summary 12/30/22 MR#: [id number] Acct: [id number] Name: KARLIE VALLE Rep #:[id number] : 1940 82 From: Danyel Viveros MD [...] the patient has been "lightheaded and dizzy". [facility] Medical History (Updated 12/30/22 @ 17:04 by Danyel Viveros MD) Angiodysplasia of duodenum Angiodysplasia of stomach Arthritis Atherosclerosis of coronary artery of [place] heart without angina pectoris Atrial fibrillation Cardiology [...] % (Auto) 55.8 Lymph % (Auto) 30.3 [place] % (Auto) 9.5 Eos % (Auto) 3.4 [...] of aphasia Disposition Disposition: Acute Care Hospital [facility] What to do if you have Problems For any increased pain, shortness of breath, bleeding, nausea or vomiting, chestpain, or any unexpected problems, contact your Primary Care Provider. Call [facility] [employer] [facility] ([phone]) or report to the closest Emergency Room. Call 911 if necessary. 12/30/22 3550 <Electronically signed by Danyel Viveros MD> Cosigner Signature (if applicable): CC: Dr. Errol Shahid MD ~ Signed [facility] Work Phone: 1(667) 530-496511-19-2022 Miscellaneous Notes* Nursing Notes - Marianna Huffman RN - 01/28/2022 1:12 PM EST Transport postponed to between 16-1700 today. Family updated. * Nursing Notes - Marianna Huffman RN - 01/28/2022 9:56 AM EST Report called to nurse Elenita at [facility]. AVS, DONNA and discharge summary faxed to [...] Rounds/Family Conf Outcome: Ongoing Flowsheets (Taken 01/27/2022 1402) Participants: advanced practice nurse patient physician Problem: Patient Care Overview Goal: Discharge Needs Assessment Outcome: Progressing Toward Goal Flowsheets Taken 01/27/2022 1402 by Sesar Carlin RN Discharge Facility/Level Of Care Needs: rehabilitation facility Anticipated Changes Related to Illness: inability to care for self Outpatient/Agency/Support Group Needs: inpatient rehabilitation facility Transportation Available: ambulance Discharge Disposition: rehab facility Taken 01/24/2022 1658 by DINORAH [facility] Agency Name(s) For Handoff: [facility] * Plan of Care - Nette Du [...] Toward Goal * Plan of Care - Tmi Grimm MD - 01/25/2022 10:05 AM ESTSummary: [...] with our specialty in 2-4 weeks with WATER PROJECT MANAGER Reasonable to refer to electrophysiology as well [...] Grimm MD Cardiovascular Medicine Fellow, PGY4 [facility] * Plan of Care - Kareem Hamm [...] function Sussy Manning MD Neurology, PGY-3 Pager #[phone] * Nursing Notes - Mireille Sánchez RN [...] decision making before providing current Lopressor dosing. 2145: Report provided to VASYL Velazquez -- all [...] goal of average po being 50%. 5. technical documentation specialist to follow. * Nursing Notes - Sidney Mckeon RN - 01/21/2022 9:05 PM EST 2104: Patient in atrial fibrillation with RVR -- [...] Review Outcome: Met This Shift Flowsheets (Taken 01/20/20221728) Plan Of Care Reviewed With: daughter son Progress: progress toward functional goals is gradual Problem: Dysphagia (Adult) Goal: Functional/Safe Swallow Description: Patient will demonstrate the desired outcomes by discharge/transition of care. Outcome: Progressing Toward Goal Intervention: Monitor/Manage Eating/Swallowing Impairment Flowsheets (Taken 01/20/20221728) Aspiration Precautions: awake/alert before oral intake food [...] Intervention: Monitor/Assist with Self Care Flowsheets (Taken 01/20/2022 1729) Communication: 2 - difficulty speaking (not related [...] mobility. Outcome: Ongoing * Research Note - Usama Cantrell APRN-CUAUHTEMOC - 01/20/2022 10:59 AM EST CAM-ICU feature [...] Yes/No No * Plan of Care - KATHLEEN Dominguez - 01/20/2022 10:58 AM EST Problem: VIDEO COORDINATOR - Language Goal: Command Following Description: Patient [...] Dominguez - 01/20/2022 10:58 AM EST Problem: VIDEO COORDINATOR - Dysphagia Goal: PO Trial 2 Description: [...] off. Further car per nccu/stroke team. Page [phone] with questions Jeffrey Fung MD NSG PGY 6 * Plan of Care - Aura Flores OT - 01/20/2022 10:15 AM EST [...] No tPA given. SURGEON: Gary Garcia MD SPECIALIZED DEVELOPER: Kade Lantigua MD ANESTHESIA: MAC CONTRAST: 100 [...] with a micropunct ure kit. An 8 Guinean sheath was introduced into the right femoral [...] proximal right M1 occlusion. Post thrombectomy shows holiness of flow to the right MCA territory [...] - 01/19/2022 7:37 PM EST Karlie Valle ([id number]) PRE OPERATIVE DIAGNOSIS Cerebral infarction due to [...] Fellow ANESTHESIOLOGIST Anesthesiologist: Luann Pandya MD, PhD BOTTOM PRECIPITATOR OPERATOR: Jonas Riley APRN-BOTTOM PRECIPITATOR OPERATOR SURGICAL STAFF Associate Automation Engineer: Troy Skaggs RN; Юлия Del Toro RN; Denise Fuentes RN Resident Assisting: Flaco Simpson MD COMPLICATIONS None ESTIMATED BLOOD LOSS Minimal SPECIMENS No specimen sent * No specimens in log * Kade Lantigua MD January 19, 2022 7:37 PM [facility] of Present illness Narrative* OMAR Randolph - 01/28/2022 9:28 AM EST Social Work Final Discharge Plan and Transportation Final Discharge Planning Discharge Disposition: Inpatient Rehab Facility Services at Discharge: Physical Therapy, Occupational Therapy Community Agency Name(s) For Handoff: [facility] Phone For Handoff: Fax For Handoff: Selected Continued Care - Admitted Since 01/19/2022 Destination Coordination complete. Service Provider Selected Services Address Phone Fax Patient Preferred [facility] Inpatient Rehabilitation [address], [place] [address] -- -- Plan Plan: DC to [facility] Patient/Family In Agreement With Plan: yes Seo Professional Called: Yes Name of Transport Company: ([facility] [phone]) ETA of Ambulance: 11am Transfer Mode: gurney Mode of Transfer: ambulance, BLS Accompanied By: EMS Patient medically stable for discharge per physician/medical team. SW confirmed with IR[facility] that they are able to accept the patient this date. SW arranged transport as indicated above, ETA is 11 AM. AVS/DONNA completed from a SW standpoint. SW updated the bedside RN, CCM, facility and patient/data entry representative of the discharge plan and transport time. Patient/Adjunct Communications Faculty Member remain in agreement with the discharge plan. Bedside RN to call report and fax AVS/DONNA. Ambulance form left at the community service officer desk with a request [...] agency or facility for report. JAKOB Alexandre, BULL BUCKER Tabber * Charlette Rondon MD - 01/28/2022 7:44 [...] min in DC management Charlette Rondon MD Slime Plant Operator Department of Neurology * OMAR Martinez - 01/27/2022 2:22 PM EST Progression of Care Note Expected Discharge Date: 01/28/2022 Medical Milestones Remaining: None Assessment and Discharge Plan as of 01/27/2022 2:22 PM [facility] Patient Choice for Post-Acute Providers Anticipated discharge disposition: Inpatient Rehab Facility Anticipated Services at Discharge: Physical Therapy, Occupational Therapy, [facility], Speech Therapy, Outpatient follow up Explanation of Barriers: Transportation arranged for Sunday at 11am to [facility] Readmission Risk Score Risk of Readmission: 4.6 Category Reference: High:16-100 Mod-High:10-16 Mod-Low: 5-10 Low: 0-5 JAKOB Martinez, OMAR Frame Fixer * Yolie Blair APRN-CUAUHTEMOC - 01/27/2022 12:22 PM EST NEUROVASCULAR STROKE SERVICE Daily Progress Note IDENTIFYING INFORMATION Karlie Valle MR# [id number] 01/27/2022 HISTORY OF PRESENT ILLNESS Karlie Valle is a 81 y.o. female with a past history of HTN, HLD, A-fib not on AC (d/t recent GIB. Last AC use was Nov) Ms. Valle was transferred to [facility] after presenting to an OSH ([facility]) with dysarthria, left weakness and facial droop. [...] Karlie Valle will likely be discharged to [facility] pending transportation. Yolie Blair APRN-TUBING SUPERVISOR 01/27/2022 12:26 PM VITAL SIGNS Temp: [97.3 [...] balance. Mobility Assessment/Intervention: Supine to Sit Mobility [place] Level: Supine->Sit: maximum assist (25% patient effort) Bed Features/Set-up: Supine->Sit: Use of bed rail, Head of bed elevated Skilled Rationale: Verbal cues, Tactile cues, Positioning, Hand placement, Sequencing, Technique ofactivity, Cues for increased safety, Full extension to upright positioning/posture, Facilitate anterior shift Transfer Assessment/Intervention: Sit to Stand Transfer [place] Level: Sit->Stand: moderate assist (50% patient effort) [...] for improved independence. Stand to Sit Transfer [place] Level: Stand->Sit: moderate assist (50% patient effort) Assistive Device: Stand->Sit: gait belt, hand held assist Skilled Rationale: Verbal cues, Tactile cues, Positioning, Hand placement, Controlled descent for sitting, Technique of activity, Cues for increased safety Toilet Transfer [place] Level: Toilet: moderate assist (50% patient effort) Assistive Device: Toilet: gait belt, grab bars Skilled Rationale: Verbal cues, Tactile cues, Hand placement, Positioning, Full extension to upright positioning/posture, Controlled descent for sitting, Technique of activity, Cues for increased safety, Cues for technique and pacing for therapeutic exercises Functional Mobility: Functional Mobility [place] Level: Functional Mobility/Gait: moderate assist (50% patient [...] prior to initiating descent. Outcome Score(s): CURRENT [facility] Daily Activity Inpatient Short Form Putting on/Taking Off Lower Body Clothin - A Lot of Assistance Bathin - A Lot of Assistance Toiletin - A Little Assistance Putting on/Taking Off Upper Body Clothin - A Lot of Assistance Groomin - A Little Assistance Eatin - A Little Assistance CURRENT [facility] Activity Raw Score: 15 CURRENT -[facility] Activity Functional Limitation/Modifier: 56.46% Currently Impaired in [...] education provided. Dc tomorrow Charlette Rondon MD Slime Plant Operator Department of Neurology * Ottoniel Benjamin PT - 01/26/2022 4:00 PM EST Acute Physical Therapy Treatment Prior to Admission [facility] score(s): PRIOR LEVEL AM-PAC Mobility Raw [...] LE Mobility Assessment/Intervention: Supine to Sit Mobility [place] Level: Supine->Sit: moderate assist (50% patient effort) Bed Features/Set-up: Supine->Sit: Head of bed elevated, Use of bed rail Skilled Rationale: Verbal cues, Sequencing, Hand placement, Technique of activity Skilled Intervention/Details: Supine->Sit: Pt able to initiate with log roll with R LE, but needing guidance for reaching. assistance needed due to weakness Transfer Assessment/Intervention: Sit to Stand Transfer [place] Level: Sit->Stand: moderate assist (50% patient effort) [...] sequencing due to limited carryover Bed-Chair Transfer [place] Level: Bed<->Chair: moderate assist (50% patient effort) [...] occasional L LE buckle Outcome Score(s): CURRENT [facility] Basic Mobility Inpatient Short Form Turning over [...] with a railin - Total Assistance CURRENT [facility] Mobility Raw Score: 10 CURRENT [facility] Mobility Functional Limitation/Modifier: 76.75% Currently Impaired in [...] Haji - 01/26/2022 3:32 PM EST 01/26/22 2288 Transportation Tracking Transport Company Contacted (1) Other (Comment) ([facility]) Date Requested 01/28/22 Time Requested 1100 Name of Transport Company ([facility] [phone]) Final Transport Request Dispatcher Called Yes ETA of Ambulance 11am Patient will discharge to [facility] [address] [facility] [address] [address] L[place] Tabber * Charlette Rondon MD - 01/26/2022 7:48 [...] and stroke education provided. Charlette Rondon MD Slime Plant Operator Department of Neurology * Lars Lord APRN-CUAUHTEMOC - 01/26/2022 6:53 AM EST NEUROVASCULAR STROKE SERVICE Daily Progress Note IDENTIFYING INFORMATION Karlie Valle MR# [id number] 01/26/2022 HISTORY OF PRESENT ILLNESS Karlie Valle is a 81 y.o. female with a past history of HTN, HLD, A-fib not on AC (d/t recent GIB. Last AC use was Nov) Ms. Valle was transferred [facility] after presenting to an OSH ([facility]) with dysarthria, left weakness and facial droop. [...] Karlie Valle will likely be discharged to [facility] pending transportation. Lars Lord, SNUBBER-TUBING SUPERVISOR 01/26/2022 7:19 AM VITAL SIGNS Temp: [98.6 [...] Services at Discharge: Physical Therapy, Occupational Therapy, Mcc, Outpatient follow up, Speech Therapy Explanation of Barriers: Medical Stability Readmission Risk Score Risk of Readmission: 6.7 Category Reference: High:16-100 Mod-High:10-16 Mod-Low: 5-10 Low: 0-5 JAKOB Martinez, BULL BUCKER Frame Fixer * Lindsay Scott - 01/25/2022 3:27 PM EST RUQ complete. Report to follow. RN traveled with pt--no ticket to ride necessary. * KATHLEEN Gonzalez - 01/25/2022 2:55 PM EST Speech Language Pathology Attempt Note 01/25/2022 VIDEO COORDINATOR Therapy Completed: Attempted Attempted Reason: Patient is [...] Patient Safety Communication Prior to Visit: Nursing, TUBING SUPERVISOR/PA (pt pending LEVD, but low suspicion ofDVT, approval for session from TUBING SUPERVISOR) Lines/Tubes/Drains (Rehab Status): Telemetry Respiratory Status O2 [...] session. Bed Mobility: Supine to Sit Mobility [place] Level: Supine->Sit: moderate assist (50% patient effort) [...] of LEs. Transfers: Sit to Stand Transfer [place] Level: Sit->Stand: moderate assist (50% patient effort) Assistive Device: Sit->Stand: gait belt, hand held assist Skilled Rationale: Verbal cues, Tactile cues, Positioning, Sequencing, Hand placement, Facilitate anterior shift, Full extension to upright positioning/posture, Ischial assist, Arm in arm, Initiationand execution of task Skilled Intervention/Details: Sit->Stand: x1 from EOB Stand to Sit Transfer [place] Level: Stand->Sit: moderate assist (50% patient effort) Assistive Device: Stand->Sit: gait belt, hand held assist Skilled Rationale: Verbal cues, Tactile cues, Ischial assist, Facilitate anterior shift, Controlleddescent for sitting, Sequencing, Hand placement Skilled Intervention/Details: Stand->Sit: x1 to recliner Bed-Chair Transfer [place] Level: Bed<->Chair: moderate assist (50% patient effort) [...] and progress towards goal(s). Treating Therapist: Danielle Buckley, PT,DPT,NCS Additional Details: Co-evaluation/co-treatment performed?: No simultaneous [...] safety. Outcome: Progressing Toward Goal * Lars Lord, SNUBBER-TUBING SUPERVISOR - 01/25/2022 8:46 AM EST NEUROVASCULAR STROKE SERVICE Daily Progress Note IDENTIFYING INFORMATION Karlie Valle MR# [id number] 01/25/2022 HISTORY OF PRESENT ILLNESS Karlie Valle is a 81 y.o. female with a past history of HTN, HLD, A-fib not on AC (d/t recent GIB. Last AC use was Nov) Ms. Valle was transferred to [facility] after presenting to an OSH ([facility]) with dysarthria, left weakness and facial droop. [...] Karlie Valle will likely be discharged to [facility] pending medical readiness. Lars Lord APRN-TUBING SUPERVISOR 01/25/2022 8:48 AM VITAL SIGNS Temp: [97.5 [...] and stroke education provided. Charlette Rondon MD Slime Plant Operator Department of Neurology * Danielle Marcio, PT - 01/24/2022 1:39 PM EST Acute [...] repetition Bed Mobility: Supine to Sit Mobility [place] Level: Supine->Sit: maximum assist (25% patient effort) Bed Features/Set-up: Supine->Sit: Head of bed elevated, Use of bed rail Skilled Rationale: Verbal cues, Tactile cues, Sequencing Skilled Intervention/Details: Supine->Sit: Cues for crossbody reaching with RUE to sit up on L side of bed. CUes to advance BLE over EOB. Sit to Supine Mobility [place] Level: Sit->Supine: maximum assist (25% patient effort) [...] towards HOB. Transfers: Sit to Stand Transfer [place] Level: Sit->Stand: moderate assist (50% patient effort) Assistive Device: Sit->Stand: gait belt, hand held assist Skilled Rationale: Verbal cues, Tactile cues, Positioning, Sequencing, Facilitate anterior shift, Full extension to upright positioning/posture, Finding/maintaining midline positioning, Arm in arm, Ischial assist Skilled Intervention/Details: Sit->Stand: x1 from EOB Stand to Sit Transfer [place] Level: Stand->Sit: moderate assist (50% patient effort) Assistive Device: Stand->Sit: gait belt, hand held assist Skilled Rationale: Verbal cues, Tactile cues, Sequencing, Facilitate anterior shift, Controlled descent for sitting Skilled Intervention/Details: Stand->Sit: x1 to EOB Bed-Chair Transfer [place] Level: Bed<->Chair: (Unable to tolerate this session; [...] Services at Discharge: Physical Therapy, Occupational Therapy, Mcc, Outpatient follow up, Speech Therapy Explanation of Barriers: Medical Stability Readmission Risk Score Risk of Readmission: 3.6 Category Reference: High:16-100 Mod-High:10-16 Mod-Low: 5-10 Low: 0-5 JAKOB Martinez, BULL BUCKER Frame Fixer * DINORAH Comer - 01/24/2022 11:46 AM EST Progress Note [facility] is facility of choice, IRP accepted, [facility] reserved. Needs transport, medical clearance. [facility] WEAVER will continue to follow. No covid or precert needed. DINORAH Carranza Tab[place] [phone] Please note that I am a float nephrology social worker and may not cover the same service every day. Please call the main social work office at [phone] for up-to-date coverage. * Nette Du OT [...] tasks. Mobility Assessment/Intervention: Supine to Sit Mobility [place] Level: Supine->Sit: maximum assist (25% patient effort) Bed Features/Set-up: Supine->Sit: Head of bed elevated Skilled Rationale: Verbal cues, Tactile cues, Positioning, Sequencing, Technique of activity Transfer Assessment/Intervention: Sit to Stand Transfer [place] Level: Sit->Stand: maximum assist (25% patient effort) Assistive Device: Sit->Stand: gait belt, hand held assist Skilled Rationale: Verbal cues, Tactile cues, Positioning, Hand placement, Sequencing, Technique ofactivity, Facilitate anterior shift, Full extension to upright positioning/posture Skilled Intervention/Details: Sit->Stand: x1 from EOB, x1 from chair. Stand to Sit Transfer [place] Level: Stand->Sit: maximum assist (25% patient effort) Assistive Device: Stand->Sit: gait belt Skilled Rationale: Verbal cues, Tactile cues, Hand placement, Positioning, Technique of activity, Controlled descent for sitting Skilled Intervention/Details: Stand->Sit: x2 to chair. Bed-Chair Transfer [place] Level: Bed<->Chair: moderate assist (50% patient effort) Assistive Device: Bed<->Chair: gait belt, hand held assist Skilled Rationale: Verbal cues, Tactile cues, Positioning, Sequencing, Technique of activity, Cues for increased safety Outcome Score(s): CURRENT [facility] Daily Activity Inpatient Short Form Putting on/Taking Off Lower Body Clothin - A Lot of Assistance Bathin - A Lot of Assistance Toiletin - A Lot of Assistance Putting on/Taking Off Upper Body Clothin - A Lot of Assistance Groomin - A Lot of Assistance Eatin - A Lot of Assistance CURRENT [facility] Activity Raw Score: 12 CURRENT [facility] Activity Functional Limitation/Modifier: 66.57% Currently Impaired in [...] in reach. Time In: 928 Time Out: 100 Total Visit Time: 32 minutes Total Treatment [...] and stroke education provided. Charlette Rondon MD Slime Plant Operator Department of Neurology * Janey Sanches, SNUBBER-TUBING SUPERVISOR - 01/24/2022 6:40 AM EST NEUROVASCULAR STROKE SERVICE Daily Progress Note IDENTIFYING INFORMATION Karlie Valle MR# [id number] 01/24/2022 HISTORY OF PRESENT ILLNESS Karlie Valle is a 81 y.o. female with a past history of HTN, HLD, A-fib not on AC (d/t recent GIB. Last AC use was Nov) Ms. Valle was transferred to [facility] after presenting to an OSH ([facility]) with dysarthria, left weakness and facial droop. [...] with hemorrhagic conversion Repeat CTH 01/24: stable TTE pending EKG on admission: NSR, [...] Karlie Valle will likely be discharged to [facility] pending completion of stroke workup and medical readiness Janey Sanches, RACHAEL-TUBING SUPERVISOR 01/24/2022 6:41 AM VITAL SIGNS Temp: [97.7 [...] - 01/23/2022 7:00 PM EST Progress Note [facility] sent IPR referrals. Preference is [facility] IPR. MAT WEAVER will continue to follow. DINORAH Carranza [place] [phone] * OMAR Martinez - 01/23/2022 2:10 PM EST Focused Assessment for Discharge Planning Patient is here for Stroke Workup. Initial Discharge Planning Anticipated discharge disposition: Inpatient Rehab Facility Transportation Available for Discharge: Ambulance, Family or Friend Anticipated DME: unknown at this time Anticipated Services at Discharge: DME, Physical Therapy, Occupational Therapy, Outpatient follow up, Mcc, Speech Therapy Patient Assessment Completed: Focused Advanced Care Planning Assessment Advanced Care Planning Has the patient completed Advance Directives?: Completed, Available in Medical Record Reviewed for accuracy with patient?: Unable to Verify HCPOA Agent(s): 1. Yue Hunter - Daughter - [phone] 2. Vicki Weir - Daughter - 1st Alternate [phone] Legal Next of Kin: Financial Resources Insurance: Yes Prescription Coverage: Yes Resources Needed: No Resources Provided: Living Environment and Support System Patient was living Independently at home. CM met with daughterYue at bedside. Daughter stated she was told the current recommendation is for IPR. Daughter stated she is in agreement with thatplan and she and her sister prefer [facility]. CM updated SW. CM will continue to follow and assist with discharge planning. Patient Resources Prior to Admission Post-acute Services: yes - IPR Community Resources: no DME: yes - TBD Patient's goal for discharge is [facility]. JAKOB Martinez, BULL BUCKER Frame Fixer * Alla Branham PT - 01/23/2022 1:48 PM EST Acute Physical Therapy Treatment Prior to Admission [facility] score(s): PRIOR LEVEL AM-PAC Mobility Raw [...] belt Mobility Assessment/Intervention: Supine to Sit Mobility [place] Level: Supine->Sit: maximum assist (25% patient effort) Bed Features/Set-up: Supine->Sit: Head of bed elevated Sit to Supine Mobility [place] Level: Sit->Supine: maximum assist (25% patient effort) Bed Features/Set-up: Sit->Supine: Flat Transfer Assessment/Intervention: Sit to Stand Transfer [place] Level: Sit->Stand: maximum assist (25% patient effort) Assistive Device: Sit->Stand: gait belt Stand to Sit Transfer [place] Level: Stand->Sit: maximum assist (25% patient effort) Assistive Device: Stand->Sit: gait belt Gait/Functional Mobility Assessment/Intervention: Gait Assessment [place] Level: Gait: moderate assist (50% patient effort) Physical Assist: Gait: 2 person assist Assistive Device: Gait: gait belt Ambulation Distance (Feet): (15, 5) Stairs Assessment/Intervention: Outcome Score(s): CURRENT [facility] Basic Mobility Inpatient Short Form Turning over in bed: 3 - A Little Assistance Sitting/standing from chair: 1 - Total Assistance Moving from lying on back to sittin - Total Assistance Moving to and from bed to chair: 1 - Total Assistance Walk in hospital room: 1 - Total Assistance Climbing 3-5 steps with a railin - Total Assistance CURRENT [facility] Mobility Raw Score: 8 CURRENT [facility] Mobility Functional Limitation/Modifier: 86.62% Currently Impaired in [...] life change;Sharing of life story Explored Expectations Notch Machine Operator Education Notch Machine Operator Service Available Yes Outcomes Family Outcomes Reduced distress Plan of Care Continue Visiting PRN * Janey Sanches APRN-TUBING SUPERVISOR - 01/23/2022 7:34 AM EST NEUROVASCULAR STROKE SERVICE Daily Progress Note IDENTIFYING INFORMATION Karlie Valle MR# [id number] 01/23/2022 HISTORY OF PRESENT ILLNESS Karlie Valle is a 81 y.o. female with a past history of HTN, HLD, A-fib not on AC (d/t recent GIB. Last AC use was Nov) Ms. Valle was transferred to [facility] after presenting to an OSH ([facility]) with dysarthria, left weakness and facial droop. [...] Karlie Valle will likely be discharged to [facility] pending completion of stroke workup and medical readiness Janey Sanches APRN-TUBING SUPERVISOR 01/23/2022 10:00 AM VITAL SIGNS Temp: [97.9 [...] and stroke education provided. Charlette Rondon MD Slime Plant Operator Department of Neurology * ASHLYN Tilley - [...] goal of average po being 50%. 5. technical documentation specialist to follow. Karlie Valle is a 81 y.o. female admitted with , left weakness and facial droop. Met with patient today at bedside wearing mask and eye protection. Die Cast Engineer Screening Pt's appetite is fair. Pt with [...] Answer: Liquid Thin (IDDSI 0) Food Allergies reviewed:[facility] Cultural or Hoahaoism Restrictions/Preferences: denies Skin Fan Score: 16 STAND skin bundle initiated Active Wounds: Wound Sheath Site 01/19/22 185 Right Groin (3) Edema: - Summary Pt [...] hs a lot while eating and drinking. VIDEO COORDINATOR came to see patient on 01/20 and [...] nutritional therapy isneeded, please contact unit RD. Aura Quinteros DTR Pager:[phone] * Sabra Islas MD, PhD - 01/20/2022 2:57 PM EST I have seen and examined the patient. I have reviewed the chart for relevant labs, images and medications. I have reviewed the resident/WATER PROJECT MANAGER note and agree with the assessment/plan with [...] spent is 35 miinutes. * Gina Fam, VIDEO COORDINATOR - 01/20/2022 10:58 AM EST Acute Care VIDEO COORDINATOR Speech/Language/Cognitive and Swallow Evaluations Diet recommendation: Recommended [...] on the below outcome measures/assessment score(s) and VIDEO COORDINATOR clinicaljudgment, discharge destination recommendation is: Inpatient Rehab Facility Barriers to discharge home: Inability to communicate basic wants/needs Supporting factors for discharge setting: Impaired cognitive skills limiting safety/insight Acute VIDEO COORDINATOR Outcomes Tracking Communicate basic wants and needs?: [...] liquids with use of liquidwashes as needed. VIDEO COORDINATOR to continue to follow to determine ongoing [...] above. Patient Instruction/Education this session: Role of VIDEO COORDINATOR, aphasia education Plan for next session: Address language/ swallowing goals below Subjective: Patient seen sitting upright in bed, alert and agreeable to VIDEO COORDINATOR evaluations. Family present in room. Per discussion [...] to [facility] after presenting to an OSH ([facility]) with dysarthria, left weakness and facial droop. [...] Manages meds/ finances independently per son Prior VIDEO COORDINATOR history: None found per chart review Current [...] High Faust's (60-90 degrees) Anticipatory Phase: Intact (VIDEO COORDINATOR fed, requires min assistance. Patient declining further advanced solids despite encouragement) Foods and Liquids Trialed: Modality: Amount: Ice Teaspoon x2 Thin Teaspoon, Straw, VIDEO COORDINATOR-fed x8 Dysphagia- pureed (IDDSI 4) Teaspoon x4 [...] concerning for laryngeal penetration/ aspiration across evaluation [place] Swallow Screen: (administered by: RN) [place] Swallow Screening Screening Exclusion Criteria: none, continue with [place] Swallow Screening Cognitive Screen: Orientation: able to give name, able to name place Cognitive Screen: Command Following: able to open mouth, able to stick out tongue, able to smile Oral Motor Function : able to move tongue to corners of lips, able to pucker lips and smile 3 oz. Water Swallow Challenge : no deficit-passed [place] Swallow Screening Result: passed=cleared for oral intake [...] 1 Asthenia (A): 1 Strain (S): 0 VIDEO COORDINATOR Outcomes: VIDEO COORDINATOR Outcomes / Standardized Measures Score The Orientation [...] comprehension noted with yes/ no subtest) Acute VIDEO COORDINATOR Goals Plan of Care by KATHLEEN Dominguez at 01/20/2022 10:58 AM Version 1 of 1 Problem: VIDEO COORDINATOR - Dysphagia Goal: PO Trial 2 Description: [...] readiness for diet advancement. Outcome: Ongoing Problem: VIDEO COORDINATOR - Language Goal: Command Following Description: Patient [...] environment. Outcome: Ongoing Speech Language Pathologist: KATHLEEN Domingeuz Time In: 1058 Time Out: 1135 Total [...] performance Mobility Assessment: Supine to Sit Mobility [place] Level: Supine->Sit: minimum assist (75% patient effort) Bed Features/Set-up: Supine->Sit: Head of bed elevated, Use of bed rail Skilled Rationale: Positioning, Sequencing, Hand placement Transfer Assessment: Sit to Stand Transfer [place] Level: Sit->Stand: minimum assist (75% patient effort) Assistive Device: Sit->Stand: gait belt Skilled Rationale: Positioning, Sequencing, Hand placement Bed-Chair Transfer [place] Level: Bed<->Chair: moderate assist (50% patient effort) Assistive Device: Bed<->Chair: gait belt Skilled Rationale: Positioning, Sequencing, Hand placement Outcome Score(s): Fugl Angela Score: unable to accurate grade due to aphasia CURRENT AM-[facility] Daily Activity Inpatient Short Form Putting on/Taking Off Lower Body Clothin - A Lot of Assistance Bathin - A Lot of Assistance Toiletin - A Lot of Assistance Putting on/Taking Off Upper Body Clothin - A Lot of Assistance Groomin - A Lot of Assistance Eatin - A Lot of Assistance CURRENT AM-PAC Activity Raw Score: 12 CURRENT AM-PAC Activity Functional Limitation/Modifier: 66.57% Currently Impaired in Daily Activity- CL Assessment & Plan: Patient was admitted for Ms. Valle was transferred to [facility] after presenting to an OSH ([facility]) with dysarthria, left weakness and facial droop [...] (detailed assessments w/several treatment options) Time In: 831 Time Out: 855 Total Visit Time: 24 minutes Total Treatment Time (skilled, billable minutes): 24 minutes Patient location at end of session: chair Alarms on at end of session: RN aware Needs in reach. Upon discontinuation of Acute Care Occupational Therapy Services or patient discharge from the hospital this note represents the current Occupational Therapy Discharge Summary. * Jean Rhodes - 01/20/2022 8:32 AM EST Acute Physical Therapy Evaluation Prior to Admission [facility] score(s): PRIOR LEVEL AM-PAC Mobility Raw [...] aphasia Mobility Assessment: Supine to Sit Mobility [place] Level: Supine->Sit: minimum assist (75% patient effort) [...] belt Transfer Assessment: Sit to Stand Transfer [place] Level: Sit->Stand: minimum assist (75% patient effort) Assistive Device: Sit->Stand: gait belt Skilled Rationale: Positioning, Sequencing, Hand placement, Verbal cues Bed-Chair Transfer [place] Level: Bed<->Chair: moderate assist (50% patient effort) (modA x1) Assistive Device: Bed<->Chair: gait belt Skilled Rationale: Positioning, Sequencing, Hand placement, Verbal cues, Technique of activity, Cues for increased safety Outcome Score(s): CURRENT [facility] Basic Mobility Inpatient Short Form Turning over [...] with a railin - Total Assistance CURRENT [facility] Mobility Raw Score: 12 CURRENT [facility] Mobility Functional Limitation/Modifier: 68.66% Currently Impaired in [...] plan Aura Tavarez PT, DPT License #: [id number] Pager #: [phone] * Janey Sanches APRN-CUAUHTEMOC - 01/20/2022 8:12 AM EST NEUROVASCULAR STROKE SERVICE Daily Progress Note IDENTIFYING INFORMATION Karlie Valle MR# [id number] 01/20/2022 HISTORY OF PRESENT ILLNESS Karlie Valle is a 81 y.o. female with a past history of HTN, HLD, A-fib not on AC (d/t recent GIB. Last AC use was Nov) Ms. Valle was transferred to [facility] after presenting to an [facility] ([facility]) with dysarthria, left weakness and facial droop. Per. Ms. Valle's daughter, LILI 01/18. mRS 0. On 01/19, she was [...] Valle will likely be discharged to location [facility] Janey Sanches APRN-TUBING SUPERVISOR 01/20/2022 8:12 AM VITAL SIGNS Temp: [97.5 [...] to [facility] after presenting to an OSH ([facility]) with dysarthria, left weakness and facial droop. [...] no drift. LUE- drift noted. Strong bilat planning intern. Able to wiggle toes, and attempts to [...] 700) Flow (L/min): 2 (01/19 2015) - [id number], encourage pulmonary toileting - 01/19 CXR: P [...] per N[facility]U protocol Recent Labs 01/19/22 1729 01/20/22 0037 SODIUM 137 142 POTASSIUM 4.1 4.5 CHLORIDE 104 110* CO2 24 22 BUN 18 15 CREATSERUM 0.78 0.79 MAGNESIUM 2.1 2.1 PHOSPHORUS -- 3.8 ICA -- 4.16* GI/Nutrition: Risk for Dysphagia (11/2021) GIB Recent Labs 01/20/22 0037 ALBUMIN 3.4* BILIDIRECT 0.1 BILITOTAL 0.8 ALKPHOS 61 ALT 21 AST 52* TP 6.4 - DIET NPO with meds AAT - [place] Swallow Screening Result: passed=cleared for oral intake - Consult nutrition for malnutrition screening - There is no height or weight on file to calculate BMI. - 01/19: insert DHT - Bowel regimen: - - Senna every day - Miralax every day Endo: Acute Hyperglycemia 2/2 Critical Illness - Goal blood glucose 140-180 - Insulin SSI: Regular Q6H Recent Labs 01/19/22200801/19/228 01/20/22 0037 01/20/22 0535 GLUCOSE 124* 116* 108* 105* ID: [...] Heme/Onc: No Current Issues Recent Labs 01/19/22 17201/20/2236 WBC 7.82 8.70 RBC 4.34 3.74* HGB [...] ulcer prophylaxis: none (indication: ) - Lines/Tubes: [place]: inserted , (indication:) CVC: inserted, (indication:) Razo: inserted 01/19, (indication: accurate intake and output) Rectal tube: inserted, (indication: ) Enteral access: inserted 01/19- to be inserted, [ ] gastric; [ ] post-pyloric KIM Campbell Service pager: [phone] Service [place] #: [id number] (Beds [id number] and beds), [place] #: [id number] (Beds [phone] 1053 and [facility] beds) 01/20/22 7:42 AM * Nick Campos - 01/19/2022 8:34 PM EST Met pt's family in atrium waiting area. Nervous about status of pt and how long she will need to beat hospital. This associate professor of physics offered pastoral presence and listening. Family requested visit from , this associate professor of physics will make a referral. Chaplains are available 24 hours a day and 7 days a week. For urgent matters in [facility], please page [phone]. If the request is not urgent, please enter a consult. Consults are responded to within 24 hours. Rabbi Austyn Occupational Physician Chaplain Campos Pager: [phone] 24 Hour On-call Pager: [phone] 01/19/222029 Clinical Encounter Type Visited With Family Visit Type Introduction Surgical Visit Post-op Crisis Visit Spiritual/Emotional Distress Pastoral Time Spent 15 min Spiritual Assessment Spiritual Observation Spirituality helpful Emotional Observation Fear/Afraid Hope Observation Searching for hope Support Observation By Family Interventions Provided Active listening;Supportive presence Facilitated Verbalization of feelings;Sharing hopes & fears Explored Expectations Notch Machine Operator Education Notch Machine Operator Service Available Yes Educated Family Sacramental Encounters Sacrament of Sick-Anointing Family requested anointing Outcomes Family Outcomes Reduced distress Plan of Care Continue Visiting PRN [facility] N[facility]* KIM Davidson - 01/28/2022 6:51 AM EST Discharge Summary [...] taking care of Karlie Valle at [facility]. As you well know Karlie Valle is a 81 y.o. female with a past history of HTN, HLD, A-fib not on AC (d/t possible GIB) Ms. Valle was transferred [facility] after presenting to an O[facility] ([facility]) with dysarthria, left weakness and facial droop. [...] speech therapy. She is being discharged to [facility] in a stable condition. This discharge plan [...] take each medicine. Include all prescription and [id number] medicines, vitamins, and supplements. Keep this list [...] plan your refills so that you can picker box operator all your medicines at the same time. This can mean fewer trips to the drugstore. ? If we have prescribed you a new medication during your stay, please contact with your primary physician for refills Follow-up: Tripp Shahid MD [address] [facility] [phone] Schedule an appointment as soon as possible for a visit Please call and schedule a Hospital Follow up appointment with your Primary Care Provider within 1-2 weeks after you are discharged home. [place] [id number] [facility] [address] Upcoming Appointments (up to five)-Some appointments for Medical Center outpatient clinics or diagnostic testing locations are not displayed below Provider Department Dept Phone 03/14/2022 10:00 AM Christiano Broussard Jr. Neurology [facility] [phone] [facility] Hospital Discharge instructions* Discharge Instructions* Lars Lord, SNUBBER-TUBING SUPERVISOR - 01/26/2022 10:31 AM EST Please take [...] may call your neurovascular doctors office at [phone], if you have questions between 8:30 am and 4:30 pm. - For off hours or the weekend you may call the office or the hospital air table operator at and ask for the stroke resident loss prevention specialist to be paged. - If you have any questions or needs, please call Leila Bernabe RN, stroke marketing program manager at [phone] Mon-Sun from - ? Any questions concerning your discharge instructions please call Case Management Office [phone] Patient Stroke Resources: [facility] Stroke Support The [facility] Stroke Support Group is for stroke survivors, friends, andfamily members. Meets every Sunday from 12:00PM to 1:00PM at [facility] ([facility] [address] [place] [address] Rut Amador, at [phone]. If you are outside of the [place] area, contact The [place] [employer] at www.strokeassociation.org or 5-130-7-stroke, or for supports groups in your area. Also refer to the Stroke Education booklet you received as part of your stroke education while you were a patient for additional resources Additional Contacts: Evening and Weekend Contacts If you have questions or concerns during evening, weekend, or holiday hours, please call: -[facility] [employer] air table operator at [phone]. -[facility] air table operator at [phone] Ask the air table operator to page the on-call doctor for [...] Other reference numbers: [facility] Intake Office at 880-657-0618; [employer] at 515-423-6413; or Suicide Prevention Hotline at 089-234-2825. *Helpful phone numbers: Free Crisis Hotline: 7-481-276-TALK ( ) Suicide Hotline: 866.136.4868 Seniors Suicide Hotline: 147.571.9213 [facility] Youth: 457.923.7713 Mental [facility]: 125.766.5117 (free counseling) [employer] Access Hotline: 695-768-ECHG (020-446-3691) 24-hour crisis text hotline: Text the word "4hope" to 727-857 for crisis support. Texting this number is [...] you may qualify for Medicaid/public assistance: The [facility] Department of Job and Family Services can now process drake (TANF), food (SNAP) and Medicaid Applications over the phone. Please call [phone] (6934) and apply over the phone or apply online at www.benefits.[place].gov. Sunday-Sunday 8am-12pm noon. Medication Assistance Programs [employer] members can buy 100+ common prescriptions for FREE, $3 or $6. Annual membership is $36 for individuals and $72 for families (up to 6 people, including pets). Sign up online or enroll at your nearest pharmacy! -[employer], web site can provide a significant number [...] you take each medicine. Include all prescription izpgmhs-pwt-vboqddi medicines, vitamins, and supplements. Keep this list [...] plan your refills so that you can picker box operator all your medicines at the same time. [...] breathing -Fever or chills documented in this [facility]11-13-2022 Consult note* Uriel Bingham MD - [...] apparent Antithrombotic therapy to include in the longterm DOAC monotherapy, would not necessarily recommend addition of antiplatelet therapy given risk of hemorrhagic transformation. Reasonable to consider aspirin before anticoagulation if the latter will not be appropriate for another 7 days or so. In the longterm, if Gi bleeding is seen on DOAC [...] or with any questions (day[place]: [place] [phone] or IHIS message fellow/attending; after hours: page safety clothing and equipment developer *[phone] with urgent concerns). Alexandru Bingham MD, [facility] Forest Patrolman of Internal Medicine - Clinical Division of Cardiovascular Medicine HISTORY It was my pleasure to see Ms. Karlie Valle in consultation at the [facility] on 01/22/2022. I obtained history predominantly from [...] of this patient. documented [facility] History and physical note* Donna Corbin APRN-CUAUHTEMOC [...] to [facility] after presenting [facility] ([facility]) with dysarthria, left weakness and facial droop. [...] 2100) Flow (L/min): 2 (01/19 2015) - [id number], encourage pulmonary toileting - 01/19 CXR: P [...] ID: No Current Issues Recent Labs 01/19/22 1729 WBC 7.82 - Temp (24hrs), Av.9 F [...] Prior - Primary Emergency Contact: Vicki Weir, Sriram - 01/19: Last updated Family. Discussed daughter [...] 35 minutes with this patient. Donna Corbin APRN-[facility] Service pager: [phone] Service [place] #: [phone] (Beds 4393-3041 and beds), [place] #: [id number] (Beds 1042- [phone] and [facility]) 01/19/22 9:41 PM documented in this encounterOSU [facility] Nurse Note* Denise Fuentes RN - 01/19/2022 8:02 PM EST Report given to PIGMENT WEIGHER. Patient transported to SICU by BOTTOM PRECIPITATOR OPERATOR. * Denise Fuentes RN - 01/19/2022 7:34 PM EST 6/7Fr Mynx device deployed into right groin @ 1920. documented in this encounterU [facility] Emergency department Note* Kiesha Mckoy MD - [...] surgical history on file. Past Social/Family History Qatari speaking Current Medications: No current outpatient medications on file. MEDICAL DECISION MAKING, PLAN OF CARE, ED COURSE On 01/19/2022 I saw and personally examined the patient. I discussed the history and examination with the resident physician and agree with the plan of care Impression / Differential: Acute CVA Plan: NVasc Kiesha Mckoy MD 01/19/221741 * DINORAH Morillo - 01/19/2022 5:25 PM EST ADEBAYO responded to Level A Stroke Alert brought in by [employer] [facility] as a transfer from [facility]. Patient is confused and aphasic. Daughters were at the OSH and are coming here, and medics verified their contact information: DaughterVickigreg, DaughterYuerp, SW was with neuro resident when he called daughterVicki to inform her of patient's arrival and obtain history. ADEBAYO updated demographics and will be available for support while patient is in the ED. J LUIS Cardona, [facility] Tabber, Emergency Dept. [phone] Available via Secure Chat * Amanda Green [...] Admission, NCCU This note was dictated using Floqq voice recognition software. Attempts at proofreading were made, but errors may occasionally still occur. Joselito Vazquez MD Resident 01/22/22 1101 Joselito Vazquez MD Resident 01/22/22 1102 documented in this encounterOSU [facility]-29-[facility] Evaluation note * Diagnosis Onset Date Resolution Status Dyspnea acute Hemoptysis acute Dyspnea acute New onset atrial fibrillation November 07, 2021 acute Essential hypertension chron ic [facility] Work Phone: 1(407) 273-539301-04-2022 Hospital Discharge instructions Additional Instructions Discharge to [facility] 03/15/2021, nonskilled, private pay.[facility] Work Phone: Discharge summary Author Stefano Palmer [facility] January 02, 2023 1:09pm Note Date/Time January 02, 2023 1 :09pm [facility] Medical Records Department [address] [place] [address] Discharge Summary 01/02/23 1303 MR#: [id number] Acct: [id number] Name: KARLIE VALLE Rep #:[id number] : 1940 82 From: Stefano guerrero MD PCP: Dr. Errol Shahid MD Status: [facility] Prov[facility] Date of Admission: 12/30/22 Primary Care Physician: Dr. Errol Shahid MD Consultations 12/30/22 20:13 Consult: Gastroenterology Routine Consulting Provider: [facility] Reason for Consult: ABLA presumed GI [...] acetate 25 mg rectal suppository 25 mg AK BID 4 weeks #24 ea 01/02/23 Hospital [...] anemia/Fe deficiency anemia who presents to the [facility] ED on 12/30/22 per PCP recommendation secondary [...] hydrocortisone acetate 25 mg suppository 25 mg AK BID 28 Days Qty: 24 0RF Eliquis [...] in before D/C Order can be placed): [facility] Facility Charges/Coding Visit Charges Inpatient E&M: 78968 Disch Hosp >30min 01/02/23 1309 <Electronically signed by Stefano Palmer MD> Cosigner Signature (if applicable): CC: Dr. Errol Shahid MD; Dr. Stefano Palmer MD~ Signed [facility] Work Phone: Evaluation noteNo assessment information available [facility] Work Phone: Evaluation note* Diagnosis Onset Date Resolution Status Other chronic sinusitis acut e Polyp of nasal cavity acute [facility] Work Phone: Evaluation note* Diagnosis Cerebrovascular accident (CVA), unspecified mechanism Anemia (Low HGB) Anemia, unspecified [facility]* Diagnosis Onset Date Resolution Status Hemoptysis resolved Essential hypertension chron ic [id number] acute Angiodysplasia of duodenum a cute Angiodysplasia of stomach ac dimitri Anxiety with depression acut e Aphasia complicating [...] esophagus acute Atherosclerosis of coronary artery of [place] heart without angina pectoris chronic Essential hypertension chron ic Hyperlipidemia chronic [facility] Work Phone: Evaluation note* Diagnosis Onset Date Resolution Status Hemoptysis resolved [id number] acute Anxiety with depression acut e Aphasia [...] acute Upper gastrointestinal bleed acute Hypertension chronic [facility] Work Phone: Evaluation note* Diagnosis Onset [...] resolved Thrush resolved Upper gastrointestinal bleed resolved [facility] Work Phone: Evaluation note* Diagnosis Onset Date Resolution Status Anemia acute Anemia requiring transfusions acute Fatigue acute GIB (gastrointestinal bleeding) acute History of aphasia acute Positive occult stool blood test resolved [facility] Work Phone: Evaluation note* Diagnosis Onset Date Resolution Status Anemia acute Anemia requiring transfusions acute Fatigue acute History of aphasia acute GIB (gastrointestinal bleeding) resolved Positive occult stool blood test resolved [facility] Work Phone: Hospital Discharge instructions Additional Instructions Right M2 occlusion. Troponin high-sensitivity 3300.EKG sinus rhythm.[facility] Work Phone: Reason for referral (narrative)* Consultation (Routine) - New Request Specialty Diagnoses / Procedures Referred By Contac t Referred To Contact Neurology Diagnoses Cerebrovascular accident (CVA), unspecified mechanism Lars Lord APRN-TUBING SUPERVISOR [address] [place] [phone] Referral ID Status Reason Start Date Expiration Date V isits Requested Visits Authorized [id number] New Request 01/26/2022 02/20/2023 1 1 * Radiology (Routine) - New Request Specialty Diagnoses / Procedures Referred By Contac t Referred To Contact Procedures US ABDOMEN RUQ/LIVER/GB Lars Lord APRN-TUBING SUPERVISOR [address] [place] [phone] Referral ID Status Reason Start Date Expiration Date V isits Requested Visits Authorized [id number] New Request 01/25/2022 02/19/2023 1 1 * (Routine) - New Request Specialty Diagnoses / Procedures Referred By Contac t Referred To Contact Procedures DVT/VTE RISK ASSESSMENT Charlette Rondon MD [address] [place] [phone] Referral ID Status Reason Start Date Expiration Date V isits Requested Visits Authorized [id number] New Request 01/25/2022 02/19/2023 1 1 * Radiology (Routine) - Pending Review Specialty Diagnoses / Procedures Referred By Contac t Referred To Contact Procedures ECG Usama Cantrell APRN-TUBING SUPERVISOR [address] [place] [phone] Referral ID Status Reason Start Date Expiration Date V isits Requested Visits Authorized [id number] Pending Review 01/20/2022 02/14/2023 1 1 * (Routine) - Pending Review Specialty Diagnoses / Procedures Referred By Contac t Referred To Contact Procedures PLATELET MONITORING PER PROTOCOL Hannah Machuca MD [address] [place] [address] Referral ID Status Reason Start Date Expiration Date V isits Requested Visits Authorized [id number] Pending Review 01/19/2022 02/13/2023 1 1 * (Routine) - Pending Review Specialty Diagnoses / Procedures Referred By Contac t Referred To Contact Procedures DVT/VTE RISK ASSESSMENT Hannah Machuca MD [address] [place] [address] Referral ID Status Reason Start Date Expiration Date V isits Requested Visits Authorized [id number] Pending Review 01/19/2022 02/13/2023 1 1 [facility] (narrative)No reason for referral information availableWKindred Hospital [facility] Work Phone: Chief Complaint and Reason for [...] accident Reason for Visit Hemoptysis Essential hypertension [id number] Angiodysplasia of duodenum Angiodysplasia of stomach Anxiety [...] and esophagus Atherosclerosis of coronary artery of [place] heart without angina pectoris Essential hypertension Hyperlipidemia [...] Cerebrovascular accident CVA Reason for Visit Hemoptysis [id number] Anxiety with depression Aphasia complicating stroke Debility [...] bleed Chief Complaint CVA LAB WORK LABWORK SENIOR CARE LABWORK Reason for Visit Acute right MCA stro ke Atrial fibrillation Debility Expressive aphasia GERD (gastroesophageal reflux disease) Hyperlipidemia Left hemiplegia Receptive aphasia Hypertension 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 Anxiety Hiatal hernia Irritable bowel syndrome Kidney stone Migraine Osteoarthritis Osteoporosis Thrush Upper gastrointestinal bleed Chief Complaint SENIOR CARE LABWORK SENIOR CARE LAB WORK Chief Complaint SENIOR CARE LAB WOR K SUSPECTED GI BLEED, ABLA SUSPECTED GI BLEED, ABLA SUSPECTED GI BLEED, ABLA SUSPECTED GI BLEED, ABLA SUSPECTED GI BLEED, ABLA SUSPECTED GI BLEED, ABLA Reason for Visit Anemia Anemia requiring transfusions Fatigue GIB (gastrointestinal bleeding) History of aphasia Positive occult stool blood test Chief Complaint SENIOR CARE LAB WOR K SUSPECTED GI BLEED, ABLA SUSPECTED GI BLEED, ABLA SUSPECTED GI BLEED, ABLA SUSPECTED GI BLEED, ABLA SUSPECTED GI BLEED, ABLA SUSPECTED GI BLEED, ABLA SENIOR CARE LABWORK SENIOR CARE LABWORK SENIOR CARE LABWORK LABWORK Reason for Visit Anemia Anemia requiring transfusions Fatigue History of aphasia GIB (gastrointestinal bleeding) Positive occult stool blood test Chief Complaint SENIOR CARE LAB WOR K SUSPECTED GI BLEED, ABLA SUSPECTED GI BLEED, ABLA SUSPECTED GI BLEED, ABLA SUSPECTED GI BLEED, ABLA SUSPECTED GI BLEED, ABLA SUSPECTED GI BLEED, ABLA SENIOR CARE LABWORK SENIOR CARE LABWORK SENIOR CARE LABWORK LABWORK LABWORK LABWORK Reason for Visit Anemia Anemia requiring transfusions Fatigue History of aphasia GIB (gastrointestinal bleeding) Positive occult stool blood test Chief Complaint SENIOR CARE LABWORK SENIOR CARE LABWORK SENIOR CARE LABWORK LABWORK LABWORK LABWORK SENIOR CARE LAB WORK Chief Complaint LABWORK SENIOR CARE LAB WORK SENIOR CARE LAB WORK Chief Complaint Admit Date HYYPOXIA, COVID March 22, 2024 2 :49pm HYYPOXIA, COVID March 23, 2024 9 :16am HYYPOXIA, COVID March 24, 2024 6 :35pm HYYPOXIA, COVID March 25, 2024 7 :12pm HYYPOXIA, COVID March 26, 2024 1 0:41am SENIOR CARE LAB WORK March 31, 2024 5:00am SENIOR CARE LAB WORK March 31, 2024 4:30pm SENIOR CARE LAB WORK April 04, 2024 5:00am SENIOR CARE LAB WORK April 11, 2024 5:00am SENIOR CARE LAB WORK April 21 5:00am SENIOR CARE LAB WORK June 30, 2024 4 :00am Reason for Visit Admit Date COVID-19 March 22, 2024 2 :49pm Hypoxia March 22, [...] Yes June 14, 2021 1:34pm Power of Artist Scientific Yes June 14 1:34pm Advance Directive Response Recorded Date/ Time Name of Medical Power of Artist Scientific ABDIAS VLALE June 14, 2021 1:34pm Advance Directives No April 15, 2017 10:36pm Living Will Yes February 04 020 9:08am Power of Artist Scientific Yes February 05, 2020 9:08am Advance Directive Response Recorded Date/ Time Name of Medical Power of Artist Scientific ANTHONY November 07, 2021 5:26am Name of Medical Power of Artist Scientific . November 12, 2021 1:01pm Advance Directives No April 15, 2017 10:36pm Living Will Yes November 12 022 1:01pm Power of Artist Scientific Yes November 12, 2021 1:01pm Advance Directive Response Recorded Date/ Time Advance Directives No April 15, 2017 10:36pm Living Will No November 05 2:05pm Power of Artist Scientific No November 05 022 2:05pm Advance Directive Response Recorded Date/ Time Name of Medical Power of Artist Scientific YUE AND VICKI November 07, 2021 5:26am Advance Directives No April 15, 2017 10:36pm Living Will Yes November 07 5:26am Power of Artist Scientific Yes November 07 5:26am Advance Directive Response Recorded Date/ Time Name of Medical Power of Artist Scientific YUE AND VICKI November 07, 2021 4:26am Name of Medical Power of Artist Scientific . November 12, 2021 12:01pm Advance Directives No April 15, 2017 9:36pm Living Will Yes January 19 1:38pm Power of Artist Scientific No January 19, 2022 1:38pm Documents on File Type Date Recorded Patient Adjunct Communications Faculty Member Expl anation Advance Directives/Living Will 02/10/2021 Latest Code Status on File Code Status Date Activated Date Inactivated Comments Full Code 01/21/2022 2:47 PM Code Status History Code Status Date Activated Date Inactivated Comments Full Code 01/19/2022 6:11 PM 01/19/2022 6:27 PM Advance Directive Response Recorded Date/ Time Name of Medical Power of Artist Scientific YUE AND VICKI November 07, 2021 4:26am Name of Medical Power of Artist Scientific . November 12, 2021 12:01pm Name of Medical Power of Artist Scientific Yue Hunter, daughter January 30, 2022 11:43am Advance Directives No April 15, 2017 9:36pm Living Will Yes January 30 022 11:43am Power of Artist Scientific Yes January 30, 2022 11:43am Advance Directive Response Recorded Date/ Time Name of Medical Power of Artist Scientific Yue Hunter, daughter January 30, 2022 11:43am Name of Medical Power of Artist Scientific Yue Hunter, daughter February 21, 2022 2:57pm Advance Directives No April 15, 2017 9:36pm Living Will Yes February 21 022 2:57pm Power of Artist Scientific Yes February 21, 2022 2:57pm Advance Directive Response Recorded Date/ Time Advance Directives No April 15, 2017 10:36pm Living Will Yes February 21, 2 022 3:57pm Power of Artist Scientific Yes February 21, 2022 3:57pm Name of Medical Power of Artist Scientific Yue Hunter, daughter February 21, 2022 3:57pm Advance Directive Response Recorded Date/ Time Advance Directives No April 15, 2017 10:36pm Living Will Yes February 21, 2 022 3:57pm Power of Artist Scientific Yes February 21, 2022 3:57pm Advance Directive Response Recorded Date/ Time Name of Medical Power of Artist Scientific norm olmedo December 30, 2022 8:25pm Advance Directives No April 15, 2017 10:36pm Living Will Yes December 30 8:25pm Power of Artist Scientific Yes December 30, 2022 8:25pm Advance Directive Response Recorded Date/ Time Name of Medical Power of Artist Scientific norm olmedo bangreg December 30, 2022 7:25pm Advance Directives No April 15, 2017 9:36pm Living Will Yes December 30 7:25pm Power of Artist Scientific Yes December 30, 2022 7:25pm Advance Directive Response Recorded Date/ Time Advance Directives No April 15, 2017 9:36pm Living Will Yes December 30 7:25pm Power of Artist Scientific Yes December 30, 2022 7:25pm Advance Directive Response Recorded Date/ Time Advance Directives No April 15, 2017 10:36pm Living Will Yes December 30 8:25pm Power of Artist Scientific Yes December 30, 2022 8:25pm Advance Directive Response Recorded Date/ Time Living Will Yes March 22 4:55pm Do you have a Healthcare Pow er of Artist Scientific? Yes March 22, 2024 4:55pm Name of Medical Power of Artist Scientific daughters-anthony March 22, 2024 4:55pm Advance Directives No [...] and content) DATE CREATED AUTHOR 01/26/2022 [employer] DATE CREATED AUTHOR AUTHOR'S ORGANIZ ATION 02/05/2022 [facility] DATE CREATED AUTHOR AUTHOR'S ORGANIZ ATION 09/30/2024 [facility] Reason for Visit (unrecogniz ed section and content) Reason Comments Extremity Weakness Specialty Diagnoses / Procedures Referred By Sujata aldana Referred To Contact Diagnoses Level A stroke; Herminio Alcantara MD [address] [place] [address] [facility] [address] [place] [address] Referral ID Status Reason Start Date Expiration Date Visits Re quested Visits Authorized [id number] 1 1 Scheduled Active and Recently Administ [...] 0814 (Given - Provider: Marianna Huffman, RN) aspirin suppository 300 mg(Linked Group 1) 300 mg, Rectal, DAILY, First dose (after last modification) on Sun01/24/22 at 0930, Until Discontinued, Use suppository until patient passes swallow test. 0830 (See Alternative - Provider: Rashad Butler RN) 0835 (See Alternative - Provider: Sesar Carlin RN) 0814 (See Alternative - Provider: Marianna Huffman, RN) atorvastatin (LIPITOR) tablet 40 mg 40 [...] DVT/PE prophylaxis 1831 (Given - Provider: Rashad Butler, RN) 1734 (Given - Provider: Sesar Carlin RN) 1818 (Not Given - Provider: Marianna Huffman, VASYL - Reason: Patient/family refused - Comment: Patient being discharged, family refused) faMOTIdine (PEPCID) tablet 20 mg 20 mg, Oral, EVERY 12 HOURS, First dose on 01/21/22 at 2100, Until Discontinued 08 (Given - Provider: Rashad Butler RN)2011 (Given - Provider: Kareem Hamm RN) 0836 (Given - Provider: Sesar Carlin, RN)2012 (Given - Provider: Sidney Mckeon, VASYL) 0814 (Given - Provider: Marianna Huffman, VASYL) ipratropium-albuterol (DUONEB) 0.5-2.5 (3) MG/3ML nebulizer solution 3 mL 3 mL, Nebulization, EVERY 6 HOURS, First dose (after last modification) on Sun01/25/22 at 1400, Until Discontinued 012 (Not Given - Provider: Chavo Hui RCP - Reason: Other - Comment: RN request to not wake. pt sleeping)09 (Given - Provider: Elvia Voss RCP)143 (Not Given - Provider: Elvia Voss RCP - Reason: Other - Comment: pt receiving other care)2033 (Given - Provider: Ade Gomes RCP) 023 (Not Given - Provider: Ade Gomes RCP - Reason: Patient sleeping)08 (Given - Provider: Xiomara Lynn RCP)131 (Given - Provider: Xiomara Lynn RCP)2038 (Given - Provider: Mini Kruse RCP) 023 (Not Given - Provider: Mini Kruse RCP - Reason: Patient/family refused)0823 (Not Given - Provider: Vanessa Stoner Limited Permit Arnold - Reason: Patient not [...] < 60. 0830 (Given - Provider: Rashad Butler, RN)2011 (Given - Provider: Kareem Hamm, RN) 0835 (Given - Provider: Sesar Carlin RN)2012 (Given - Provider: Sidney Mckeon, VASYL) 0814 (Given - Provider: Marianna Huffman, RN) polyethylene glycol (MIRALAX) packet 17 g(Linked Group 2) 17 g, Oral, EVERY 12 HOURS, First dose (after last modification) on Sun01/23/22 at 2100, Until Discontinued 0830 (Not Given - Provider: Rashad Butler RN - Reason: Patient/family refused)2013 (Given - Provider: Kareem Hamm, RN) 0840 (Not Given - Provider: Sesar Carlin RN - Reason: Patient/family refused)2016 (Hold - [...] Butler RN)2013 (See Alternative - Provider: Kareem Hamm, RN) 0840 (See Alternative - Provider: Sesar Carlin, RN)2016 (See Alternative - Provider: Sidney Mckeon, VASYL) 0814 (See Alternative - Provider: Marianna Huffman, RN) senna (SENOKOT) tablet 8.6 mg(Linked Group 3) 8.6 mg, Oral, DAILY EVERY MORNING, First dose on Kalina 01/19/22 at 1830, Until Discontinued, Hold if BM in last 2 hours. 0829 (Given - Provider: Rashad Butler RN) 0835 (Given - Provider: Sesar Carlin, RN) 0814 (Given - Provider: Marianna Huffman, RN) senna (SENOKOT) tablet 8.6 mg(Linked Group 3) 8.6 mg, Per NG tube, DAILY EVERY MORNING, First dose on [place] 01/19/22 at 1830, Until Discontinued, Hold if BM in last 2 hours. 0829 (See Alternative - Provider: Rashad Butler RN) 0835 (See Alternative - Provider: Sesar Carlin RN) 0814 (See Alternative - Provider: Marianna Huffman, RN) PRN Medication Order 01/26/2022 01/27/2022 01/28/2022 [...] Until 01/28/22 at 2010, Mild Pain, Moderate Pain, Maximum dose of acetaminophen is 4000 mg from all sources in 24 hours. 2011 (See Alternative - Provider: Kareem Hamm RN) acetaminophen (TYLENOL) tablet 325 mg(Linked Group 4) 325 mg, Per NG tube, EVERY 4 HOURS NEEDED, Starting on [place] 01/19/22 at 1828, Until 01/28/22 at 2010, Mild Pain, Moderate Pain, Maximum dose of [...] Oral, 4 TIMES DAILY NEEDED, Starting on 01/23/22 at 1517, Until 01/28/22 at 2010, Indigestion hydrALAZINE (APRESOLINE) injection 10 mg(Linked Group 5) 10 mg, Intravenous, EVERY 1 HOUR NEEDED, Starting on 01/25/22 at 0105, Until 01/28/22 at 2010, SBP > 160 mmHg, Systolic Blood Pressure greater than 160 mm Hg, Use as initial dose. Higher dose may be administered if lower dose was previously documented as ineffective 10 minutes after administration and did not result in adverse effects (HR>90) hydrALAZINE (APRESOLINE) injection 20 mg(Linked Group 5) 20 mg, Intravenous, EVERY 1 HOUR NEEDED, Starting on 01/25/22 at 0105, Until 01/28/22 at 2010, SBP [...] tube, DAILY EVERY MORNING, First dose on Sun01/19/22 at 1830, Until Discontinued
Hold if BM in last 2 hours.
Group 4: acetaminophen (TYLENOL) tablet 325 mgJump to med 325 mg, Oral, EVERY 4 HOURS NEEDED, Starting on Sun01/19/22 at 1828, Until Sun01/28/22 at 2010, Mild Pain, Moderate Pain
Maximum [...] NEEDED, Starting on Sun01/25/22 at 0105, Until Sat 01/28/222010, SBP > 160 mmHg, Systolic Blood Pressure [...]
Care Teams (unrecognized sec tion and content) [employer] Relationship Specialty Start Date End Date Tripp Shahid MD [address] [place] [id number] PCP - General Family Medicine 01/23/22 Team [...] Shahid MD Primary Care Provider Activ e Roselyn MILLAN MD Attending Provider, Referring Provider Active [...] Errol Shahid MD Primary Care Provider Activ Dandre MILLAN MD Attending Provider Active Team Status: Inactive Member Role Status Dates Dr. Errol Shahid MD Primary Care Provider Activ stacy Viveros MD Emergency Provider Active Dr. Chasity Huffman MD Admit Provider, Referring Provider, Other Provider Active Dr. Stefano Palmer MD Attending Provider Active Dr. Helene Khan MD Other Provider Active Team Status: Active Member Role Status Dates Dr. Errol Shahid MD Primary Care Provider Activ stacy Viveros MD Emergency Provider Active Dr. Chasity Huffman MD Admit Provider, Other Provider Active Dr. Helene Khan MD Attending Provider, Other Prov ider Active Team Status: Active Member Role Status Dates Dr. Errol Shahid MD Primary Care Provider Activ e Danyel Viveros MD Emergency Provider Active Dr. Chasity [...] BE BASED ON THE PRIMARY CLINICAL RECORDS. [employer] provides no warranty or guarantee of the accuracy or completeness of information in this document.
[2024-12-30 08:17] LABS: Hematocrit 34.7 % (37-47); Hemoglobin 11.5 g/dL (12.0-15.0); Mean Corp Hgb Conc 33.1 g/dL (32-36); Mean Corpuscular Volume 91.8 fL (81-99); Mean Platelet Vol. 9.8 fl (6.2-12.0); Platelet Count 239 K/mm3 (150-450); RBC Distribution Width CV 13.9 % (11.6-14.6); RBC Distribution Width SD 44.1 fl (35.1-43.9); Red Blood Count 3.78 M/mm3 (4.2-5.4); White Blood Count 9.1 K/mm3 (4.4-11.0)
[2024-12-30 08:30] LABS: Cholesterol 146 mg/dL (<=200); Low Density Lipoprotein Calc. 79 mg/dL; Pro- Brain NATRIURETIC PEPTIDE 505 pg/mL (<=1800); Triglycerides 201 mg/dL; Very Low Density Lipoprotein 40 mg/dL (5-40); cholesterol:hdl ratio screen 4.46
[2024-12-31 08:22] LABS: Anion Gap 10 (5-15); BUN 27 mg/dL (4-19); BUN/Creat Ratio 25.9 RATIO (10-20); Calcium,Total 9.3 mg/dL (7.6-11.0); Carbon Dioxide 23.1 mmol/L (21.0-32.0); Chloride 108 mmol/L (98-108); Glucose 118 mg/dL (70-99); Potassium 4.6 mmol/L (3.3-5.1)
== END ==
LOC: OLS.WCC 05:00
PROVIDERS: PCP Family Medicine; Visit Provider Family Medicine
DX: I10 Essential (primary) hypertension (principal); E78.5 Hyperlipidemia, unspecified; Z79.899 Other long term (current) drug therapy; D50.8 Other iron deficiency anemias; R53.83 Other fatigue; I48.91 Unspecified atrial fibrillation
CPT/HCPCS: 36415; 80048; 80061; 83880; 85027

== ENCOUNTER → 2025-03-02 06:30 | Outpatient (REF) | payer MEDICARE, OTHER, SELFPAY ==
[2025-03-02 08:07] LABS: Mucous, Urine 0 SEEN /hpf (<or=2+); Red Blood Cells-Urine 0 SEEN /hpf (0-5); Squamous Epithelial Cells - UA 0 SEEN /hpf (5-10)
[2025-03-02 08:29] LABS: Color, Urine Yellow (Yellow); Glucose, Dipstick Normal (Normal); Ketone-Dipstick Negative (Negative); Leukocyte Esterase-Dipstick 500 /ul (Negative); Nitrite-Dipstick Positive (Negative); Occult Blood-Urine 150 /ul (Negative); Protein-Dipstick 100 mg/dl (Negative); Specific Gravity, Urine 1.020 (1.002-1.030); Urine Bilirubin Dipstick Negative (Negative)
== END ==
LOC: OLS.WCC 06:30
PROVIDERS: PCP Family Medicine; Visit Provider Family Medicine
DX: Z00.00 Encounter for general adult medical examination without abnormal findings (principal)
CPT/HCPCS: 81001; 87077; 87086; 87088; 87186